=== PATIENT | male | born 1945 | race Caucasian/White ===

== ENCOUNTER → 2017-02-12 | Outpatient (CLI) | payer OTHER ==
[~2017-02-12] MED LIST: ASPI81TA21 PO; ASPI81TA28 PO; ATOR-22 PO; CHOL1000 PO; CYAN10005 PO; GLCSR500 PO; LISI20TA3 PO; LSN20 PO; MECL-91 PO; METF-384 PO; NAPR-1169 PO; OMEG10002 PO; OMEG10007 PO; URC10 PO; VTMD1000 PO
== END | disposition home or self-care (01) ==
LOC: C.LAB 07:26
PROVIDERS: ATTEND Physician Assistant Medical
DX: C61 Malignant neoplasm of prostate (principal)

== ENCOUNTER → 2017-02-15 | Outpatient (CLI) | payer OTHER ==
[2017-02-15 13:28] VITALS: BP 167/88; PULSE 80; TEMP 36.4; O2SAT 94
--- NOTE | 2017-02-15 14:53 | Radiation Oncology Follow-Up ---
Radiation Oncology Follow-Up Date of Visit Feb 15, 2017. (Chloe Malloy PA-C) Reason For Visit 6 month follow-up (Chloe Malloy PA-C) Radiation Completion Date 01/19/1916 (Chloe Malloy PA-C) Diagnosis (1) Prostate cancer Status: Resolved Onset Date: 01/05/2011 Location: both lobes of prostate Histology Subtype: adenocarcinoma Stage: ll Permanent Comment: DIAGNOSIS: Prostate, adenocarcinoma, kellie 3 + 4, pre-RP PSA 6.10, pT2c, group IIA now with rising PSA to 0.11, PSA rechecked and was 0.286 11/02/2015 -Radical prostatectomy - 10/30/2011 Status post completion of salvage radiation therapy 01/19/2016 received 7290 cGy Last Edited By: Chloe Malloy on Feb 16, 2016 16:12 (Chloe Malloy PA-C) History of Present Illness Mr. Austin is a 70-year-old gentleman who was originally diagnosed with prostate cancer in 2011. His pretreatment PSA was 6.10 on 07/24/2011. He underwent a radical prostatectomy on 10/30/2011 which revealed prostate adenocarcinoma that was [place] 3+3 and [place] 3+4. The pathologic specimen also revealed perineural invasion however, there was no evidence of extracapsular extension, seminal vesicle invasion or positive pathologic margins. The patient was followed with observation. His PSA on 06/26/2012 was undetectable. His repeat PSA was 0.03 in December 2012, 0.05 in January 2015 and 0.11 on 07/28/2015. We are now seeing the patient in consultation regarding the role salvage radiation therapy for his prostate cancer. He completed salvage radiation therapy 01/19/2016. He received 7290 cGy to lymph nodes and 6840 cGy to the prostate bed. (Chloe Malloy PA-C) Interim History He's been doing well over the past 6 months. He denies any difficulty with urination. He does not require any medication to help with urination. He completed AUA score sheet and gave a score of 10. On his last visit his score was 11. He completed and expanded prostate cancer index composite for clinical practice and gave a score of 3 of 12 and urinary incontinence symptoms. He gave a score of 2 of 12 in urinary irritation symptoms. He gave a score 0 of 12 and bowel symptoms. He gave a score of 12 of 12 in sexual symptoms. He gave a score 1 of 12 and hormonal vitality symptoms. His total was 18 of 60. He had a PSA 02/12/2017 and this was 0.332. The PSA prior was 08/14/2016 and that was 0.100. He is keeping a log of his results. We reviewed the PSA results. (Chloe Malloy PA-C) Allergies Coded Allergies: Codeine (Verified Adverse Reaction, Unknown, HYPERACTIVITY, 07/27/14) Home Medications Scheduled Aspirin Enteric Coated (Ecotrin Or Generic), 81 MG PO DAILY Atorvastatin (Lipitor), 20 MG PO DAILY Cholecalciferol (Vitamin D3), 1 TAB PO DAILY Cyanocobalamin (Vitamin B-12), 2,000 MCG PO DAILY Lisinopril (Prinivil), 20 MG PO QAM Metformin Hcl Ext Rel (Glucophage Ext Rel *), 1,000 MG PO BID [place]-3 Fatty Acids (Fish Oil), 2 CAP PO BID Potassium Citrate (Potassium Citrate), 1 TAB PO TID Review of Systems Gastrointestinal: Symptoms: Indigestion GI Comments: sometimes, not enough to take tums for Oral: Symptoms: No Problems Respiratory: Symptoms: WNL Urinary: Symptoms: WNL Skin: Symptoms: No Problems (Chloe Malloy PA-C) Physical Exam Vital Signs Date Time Temp Pulse Resp B/P Pulse Ox O2 Delivery O2 Flow Rate FiO2 02/15/17 13:28 36.4 80 22 167/88 94 Pain: Patient Pain Scale: 0 - 10 Initial Pain Intensity: 0.0 Fatigue: None General Appearance: no apparent distress Eyes: normal inspection, EOMI ENT: normal ENT inspection, hearing grossly normal Respiratory/Chest: lungs clear, no respiratory distress, no accessory muscle use Cardiovascular: regular rate, rhythm, no gallop, no murmur Abdomen: non tender, soft Extremities: no pedal edema Neurologic/Psychiatric: no motor/sensory deficits, alert, normal mood/affect Skin: warm/dry (Chloe Malloy PA-C) Laboratory Studies Test 02/12/17 07:29 Prostate Specific Antigen 0.332 ng/ml (0.000-4.000) (Chloe Malloy PA-C) Assessment & Plan Plan: The patient was seen today by Dr. Mccray. He will continue regular follow- up with his primary care provider as well as his urologist. He'll be seeing Dr. Moon in May. He'll be having a recheck PSA at that time. We asked him to return to our office in 6 months. Continue to follow the PSAs closely. There has been a trend upward in the PSA. We have reassured him that is not time yet to have concern. There is no need for any implementation of treatment currently. This will need to be followed over longer period of time. We'll continue with the current schedule a follow-up and PSAs. He may call our office if he has any questions or concerns in the interim. (Chloe Malloy PA-C) I agree with note created by Chloe Malloy PA-C. I reviewed the patient's chart and information with her. I have examined and evaluated the patient. I reviewed relevant clinical information and answered the patient's and/or family' s questions. (Veeral. Mccray MD) Total Time In Follow-Up I spent 20 minutes speaking to the patient and performing examination. I spent 15 minutes reviewing information and completing this note. (Chloe Malloy PA-C) I spent 15 minutes examining and counseling the patient. (Veeral. Mccray MD) Copy To Steffi Moon MD; Ivette Koroma C.R.N.P.
== END | disposition home or self-care (01) ==
LOC: C.ONC 13:18
PROVIDERS: ATTEND Physician Assistant Medical
DX: Z08 Encounter for follow-up examination after completed treatment for malignant neoplasm (principal); Z92.3 Personal history of irradiation; Z85.46 Personal history of malignant neoplasm of prostate

== ENCOUNTER 2017-05-01 11:55 | Emergency (ER) | payer OTHER ==
[~2017-05-01] VITALS: Ht 165.1 cm; Wt 93.0 kg
[~2017-05-01 11:55] MED LIST changes: -ASPI81TA28 PO; -LSN20 PO; -MECL-91 PO; -METF-384 PO; -NAPR-1169 PO; -OMEG10007 PO; -VTMD1000 PO
[2017-05-01 12:01] VITALS: TEMP 36.5; Ht 165.1 cm; Wt 93.0 kg
[2017-05-01] MEDS ORDERED: SODIUM CHLORIDE 0.9% 1000ML 500 ML IV STA (12:31)
[2017-05-01 12:52] LABS: BASO % 0.3 %; BASO ABS # 0.02 K/uL (0-0.2); COMPLETE YES; EOS % 1.5 %; HEMATOCRIT 48.4 % (42-52); IG% 0.3 %; LYMPH % 26.5 %; LYMPH ABS # 1.64 K/uL (1.2-3.4); MEAN CELL VOLUME 94.9 fL (80-100); MEAN CORPUSCULAR HEMOGLOBIN 29.8 pg (25-34); MEAN CORPUSCULAR HGB CONC 31.4 g/dl (32-36); MEAN PLATELET VOLUME 9.1 fL (7.4-10.4); MONO % 8.5 %; NEUT % 62.9 %; PLATELET COUNT 197 K/uL (130-400)
[2017-05-01 12:58] LABS: URINE APPEARANCE CLEAR (CLEAR); URINE BILIRUBIN NEG (NEG); URINE COLOR YELLOW; URINE NITRITE NEG (NEG); URINE SPECIFIC GRAVITY 1.022 (1.000-1.030); UROBILINOGEN NEG (NEG); ZZUR CULT IF INDIC CLEAN CATCH NO
--- NOTE | 2017-05-01 13:01 | DIAGNOSTIC IMAGING REPORT ---
CT SCAN OF THE BRAIN WITHOUT IV CONTRAST CLINICAL HISTORY: Weakness. Change in mental status. COMPARISON STUDY: No priors. TECHNIQUE: Unenhanced axial CT scan of the brain is performed from the vertex to the skull base. CT DOSE: 614.27 mGy.cm FINDINGS: Brain parenchyma: There are age-related involutional changes noting mild subcortical and periventricular microangiopathic change. There is no hemorrhage, mass effect, or evidence of acute territorial ischemia by CT criteria. Hill-white matter is preserved. No extra-axial fluid collection is seen. Ventricles, sulci, cisterns: Prominent secondary to involutional change. Intracranial vasculature: There is atherosclerotic calcification of the cavernous carotid and vertebral arteries. Calvarium: Unremarkable. Sinuses and mastoids: The visualized paranasal sinuses are clear. The mastoid air cells are well pneumatized. Orbits: The bony orbits are grossly intact. IMPRESSION: There is no hemorrhage, mass effect, or evidence of acute territorial ischemia by CT criteria. Electronically signed by: Mars Beebe M.D. 05/01/2017 1:00 PM Dictated Date/Time: 05/01/2017 12:58 PM
[2017-05-01 13:03] LABS: MANUAL MICROSCOPIC REQUIRED? NO; REVIEW REQ? NO
[2017-05-01] MEDS ORDERED: METF-384 PO (13:05)
[2017-05-01] MEDS ORDERED: ASPI81TA28 PO (13:05)
[2017-05-01] MEDS ORDERED: URC10 PO (13:05)
[2017-05-01] MEDS ORDERED: VTMD1000 PO (13:05)
[2017-05-01] MEDS ORDERED: OMEG10007 PO (13:05)
[2017-05-01] MEDS ORDERED: ATOR-22 PO (13:05)
[2017-05-01] MEDS ORDERED: LSN20 PO (13:05)
[2017-05-01] MEDS ORDERED: CYAN10005 PO (13:05)
[2017-05-01] MEDS ORDERED: NAPR-1169 PO (13:05)
[2017-05-01 13:13] LABS: BUN/CREATININE RATIO 12.7 (10-20); CALCIUM 10.2 mg/dl (8.5-10.1); CREATININE 1.6 mg/dl (0.60-1.40)
[2017-05-01 13:26] LABS: THYROID STIMULATING HORMONE 0.92 uIu/ml (0.300-4.500)
[2017-05-01] MEDS ORDERED: SODIUM CHLORIDE 0.9% 500ML 500 ML IV STA (13:35)
[2017-05-01] MEDS ORDERED: MECL-91 PO (13:56)
[2017-05-01 14:30] VITALS: BP 176/69; PULSE 70; O2SAT 96
--- NOTE | 2017-05-01 14:48 | EMERGENCY ROOM VISIT NOTE ---
History Report prepared by [place]: Harpreet Holcomb Under the Supervision of: Dr. Mars Leiva M.D. First contact with patient: 12:22 Chief Complaint: DIZZY Stated Complaint: DIZZINESS, LACK OF BALANCE YESTERDAY AM Nursing Triage Summary: pt to [facility] ED wtih dizziness since yesterday so bad that he had to use a walker. [facility] has a hx of a arrythmia no complaints of pain History of Present Illness The patient is a 71 year old male who presents to the Emergency Room with complaints of intermittent dizziness starting yesterday morning. He woke up with the dizziness. He describes it as issues with balance which made him unable to ambulate as normal. He had to use a walker to ambulate. He also had an elevated blood pressure and a low pulse rate. The dizziness improved later in the afternoon. There was much improvement in the dizziness this morning. He talked with a nurse in [place] who referred him to the Emergency Room. He denies any history of similar symptoms. He had diarrhea a few days ago which has now resolved. The patient denies headache, ear pain, chest pain, shortness of breath, nausea, vomiting, urinary symptoms, blood in stool, focal weakness, or any other complaints. Source of History: patient Onset: yesterday morning Position: other (global) Quality: other (dizziness) Timing: intermittent Associated Symptoms: No headache, No chest pain, No SOB, No nausea, No vomiting, No urinary symptoms, No weakness (focal) Review of Systems See HPI for pertinent positives & negatives. A total of 10 systems reviewed and were otherwise negative. Past Medical & Surgical Medical Problems: (1) Bronchitis (2) DM (diabetes mellitus) (3) HTN (hypertension) (4) Kidney stones (5) PNA (pneumonia) (6) Prostate cancer (7) UTI (urinary tract infection) Surgical Problems: (1) H/O hernia repair (2) H/O prostatectomy (3) H/O right knee replacement Family History Cancer Heart disease Lung disease Social History Smoking Status: Never Smoker Alcohol Use: none Marital Status: Housing Status: lives with significant other Current/Historical Medications Scheduled Aspirin (Aspirin Ec), 81 MG PO DAILY Atorvastatin (Lipitor), 10 MG PO HS Cholecalciferol (Vitamin D3), 1,000 MCG PO DAILY Cyanocobalamin (Vitamin B-12), 1,000 MCG PO DAILY Fish Oil ([place]-3), 2 CAP PO BID Lisinopril (Lisinopril), 20 MG PO QAM Metformin Hcl (Glucophage), 1,000 MG PO BID Potassium Citrate (Potassium Citrate), 10 MEQ PO TID Scheduled PRN Meclizine HCl (Meclizine 25), 1 TAB PO Q8 PRN for Dizziness or Vertigo Naproxen (Naprosyn), 500 MG PO BID PRN for Pain Allergies Coded Allergies: Codeine (Verified Adverse Reaction, Unknown, HYPERACTIVITY, 07/27/14) Physical Exam Vital Signs Date Time Temp Pulse Resp B/P (MAP) Pulse Ox O2 Delivery O2 Flow Rate FiO2 05/01/17 14:30 70 176/69 96 05/01/17 13:52 61 18 189/92 96 Room Air 05/01/17 13:04 60 05/01/17 12:11 68 163/83 73 169/85 78 163/94 05/01/17 12:01 36.5 77 18 168/103 94 Room Air Physical Exam GENERAL: Patient is in no acute distress. HEENT: No acute trauma, normocephalic atraumatic, mucous membranes moist, no nasal congestion, no scleral icterus. NECK: No stridor, no adenopathy, no meningismus, trachea is midline. LUNGS: Clear to auscultation bilaterally, no wheeze, no rhonchi, breath sounds equal. HEART: 2/6 systolic murmur, regular rate and rhythm. ABDOMEN: Soft, nontender, bowel sounds positive, no hernias, no peritonitis. EXTREMITIES: No cyanosis or edema, full range of motion of all the joints without pain or difficulty, no signs for acute trauma. NEUROLOGIC: Oriented x 3, no acute motor or sensory deficits, no focal weakness. No pronator drift or cerebellar dysfunction, no speech slur or facial droop. SKIN: No rash, no jaundice, no diaphoresis. Medical Decision & Procedures ER Provider Diagnostic Interpretation: Orthostatic vital signs are negative. CT results as stated below per my review and radiologist interpretation: CT SCAN OF THE BRAIN WITHOUT IV CONTRAST CLINICAL HISTORY: Weakness. Change in mental status. COMPARISON STUDY: No priors. TECHNIQUE: Unenhanced axial CT scan of the brain is performed from the vertex to the skull base. CT DOSE: 614.27 mGy.cm FINDINGS: Brain parenchyma: There are age-related involutional changes noting mild subcortical and periventricular microangiopathic change. There is no hemorrhage, mass effect, or evidence of acute territorial ischemia by CT criteria. Hill-white matter is preserved. No extra-axial fluid collection is seen. Ventricles, sulci, cisterns: Prominent secondary to involutional change. Intracranial vasculature: There is atherosclerotic calcification of the cavernous carotid and vertebral arteries. Calvarium: Unremarkable. Sinuses and mastoids: The visualized paranasal sinuses are clear. The mastoid air cells are well pneumatized. Orbits: The bony orbits are grossly intact. IMPRESSION: There is no hemorrhage, mass effect, or evidence of acute territorial ischemia by CT criteria. Electronically signed by: Mars Beebe M.D. 05/01/2017 1:00 PM Dictated Date/Time: 05/01/2017 12:58 PM Laboratory Results 05/01/17 12:10 Red Blood Count 5.10, Mean Corpuscular Volume 94.9, Mean Corpuscular Hemoglobin 29.8, Mean Corpuscular Hemoglobin Concent 31.4, Mean Platelet Volume 9.1, Neutrophils (%) (Auto) 62.9, Lymphocytes (%) (Auto) 26.5, Monocytes (%) (Auto) 8.5, Eosinophils (%) (Auto) 1.5, Basophils (%) (Auto) 0.3, Neutrophils # (Auto) 3.90, Lymphocytes # (Auto) 1.64, Monocytes # (Auto) 0.53, Eosinophils # (Auto) 0.09, Basophils # (Auto) 0.02 05/01/17 12:10 Test 05/01/17 12:10 05/01/17 12:30 White Blood Count 6.20 K/uL (4.8-10.8) Red Blood Count 5.10 M/uL (4.7-6.1) Hemoglobin 15.2 g/dL (14.0-18.0) Hematocrit 48.4 % (42-52) Mean Corpuscular Volume 94.9 fL (80-100) Mean Corpuscular Hemoglobin 29.8 pg (25-34) Mean Corpuscular Hemoglobin Concent 31.4 g/dl (32-36) Platelet Count 197 K/uL (130-400) Mean Platelet Volume 9.1 fL (7.4-10.4) Neutrophils (%) (Auto) 62.9 % Lymphocytes (%) (Auto) 26.5 % Monocytes (%) (Auto) 8.5 % Eosinophils (%) (Auto) 1.5 % Basophils (%) (Auto) 0.3 % Neutrophils # (Auto) 3.90 K/uL (1.4-6.5) Lymphocytes # (Auto) 1.64 K/uL (1.2-3.4) Monocytes # (Auto) 0.53 K/uL (0.11-0.59) Eosinophils # (Auto) 0.09 K/uL (0-0.5) Basophils # (Auto) 0.02 K/uL (0-0.2) RDW Standard Deviation 50.5 fL (36.4-46.3) RDW Coefficient of Variation 14.5 % (11.5-14.5) Immature Granulocyte % (Auto) 0.3 % Immature Granulocyte # (Auto) 0.02 K/uL (0.00-0.02) Anion Gap 11.0 mmol/L (3-11) Est Creatinine Clear Calc Drug Dose 44.4 ml/min Estimated GFR () 49.5 Estimated GFR (Non- 42.7 BUN/Creatinine Ratio 12.7 (10-20) Calcium Level 10.2 mg/dl (8.5-10.1) Total Bilirubin 0.6 mg/dl (0.2-1) Aspartate Amino Transf (AST/SGOT) 30 U/L (15-37) Alanine Aminotransferase (ALT/SGPT) 54 U/L (12-78) Alkaline Phosphatase 59 U/L (45-117) Total Protein 8.1 gm/dl (6.4-8.2) Albumin 4.0 gm/dl (3.4-5.0) Globulin 4.1 gm/dl (2.5-4.0) Albumin/Globulin Ratio 1.0 (0.9-2) Thyroid Stimulating Hormone (TSH) 0.920 uIu/ml (0.300-4.500) Urine Color YELLOW Urine Appearance CLEAR (CLEAR) Urine pH 5.0 (4.5-7.5) Urine Specific [place] 1.022 (1.000-1.030) Urine Protein 2+ (NEG) Urine Glucose (UA) NEG (NEG) Urine Ketones NEG (NEG) Urine Occult Blood NEG (NEG) Urine Nitrite NEG (NEG) Urine Bilirubin NEG (NEG) Urine Urobilinogen NEG (NEG) Urine Leukocyte Esterase NEG (NEG) Urine WBC (Auto) 1-5 /hpf (0-5) Urine RBC (Auto) 0-4 /hpf (0-4) Urine Hyaline Casts (Auto) 1-5 /lpf (0-5) Urine Epithelial Cells (Auto) 5-10 /lpf (0-5) Urine Bacteria (Auto) NEG (NEG) Laboratory results reviewed by me. Medications Administered Medications (Trade) Dose Ordered Sig/Kyra Route Start Time Stop Time Status Last Admin Dose Admin Sodium Chloride 500 ml @ 999 mls/hr Q31M STAT IV 05/01/17 12:31 05/01/17 13:01 DC 05/01/17 12:58 999 MLS/HR Sodium Chloride 500 ml @ 999 mls/hr Q31M STAT IV 05/01/17 13:35 05/01/17 14:05 DC 05/01/17 13:35 999 MLS/HR ECG Indication: other (dizziness) Rate (beats per minute): 71 Rhythm: normal sinus Findings: no acute ischemic change, no ectopy, other (LVH) ED Course 1222: The patient was evaluated in room C01B. A complete history and physical exam was performed. 1231: Sodium Chloride 500 ml @ 999 mls/hr IV 1335: Sodium Chloride 500 ml @ 999 mls/hr IV 1354: Reevaluated the patient. Discussed results and discharge instructions: He verbalized understanding and agreement. The patient is ready for discharge. Medical Decision Medication Reconciliation: I attest that I have personally reviewed the patient' s current medication list. Blood Pressure Screening: Patient was found to have an elevated blood pressure and was referred to their primary doctor for recheck and further treatment. Differential diagnosis includes but is not limited to dehydration, electrolyte imbalance, anemia, UTI, stroke, intracranial bleeding, dehydration, vertigo. There is no leukocytosis or concerning anemia. Renal panel testing shows some renal failure/dehydration. No significant electrolyte abnormality requiring correction. No hepatitis. The patient appeared to be in a euthyroid state. EKG showed a normal sinus rhythm with LVH, no ischemia or dysrhythmia. Orthostatic vital signs were negative. Brain CT showed no acute bleed or mass effect. Urinalysis did not show evidence for infection. On exam, there were no focal neurologic deficits. The patient was not toxic or febrile. The patient received IV saline for hydration. He is doing well. He actually feels better today than he felt yesterday. I do think he can be discharged home [facility] He was given a prescription for some meclizine to use for recurrent symptoms. If he is worsening, he can return for reassessment. He will see his doctor about his somewhat elevated blood pressure. Impression Primary Impression: Lightheadedness Additional Impressions: Dizziness Dehydration Scribe Attestation The scribe's documentation has been prepared under my direction and personally reviewed by me in its entirety. I confirm that the note above accurately reflects all work, treatment, procedures, and medical decision making performed by me. Departure Information Dispostion Home / Self-Care Prescriptions Meclizine HCl (Meclizine 25) 25 Mg Tab 1 TAB PO Q8 Y for Dizziness or Vertigo, #15 TAB Prov: Mars Leiva M.D. 05/01/17 Referrals Ivette Koroma C.R.NAngelinaPAngelina (PCP) Forms HOME CARE DOCUMENTATION FORM, IMPORTANT VISIT INFORMATION Patient Instructions My [facility] Additional Instructions stay better hydrated as we discussed try meclizine 1 tab as needed every 8 hours for dizziness [facility] return for worsening symptoms Problem Qualifiers
== END 2017-05-01 14:31 | disposition home or self-care (01) ==
LOC: C.EDB 11:56 → C.EDC 14:31
DX: R42 Dizziness and giddiness (principal); E86.0 Dehydration; E11.9 Type 2 diabetes mellitus without complications; I10 Essential (primary) hypertension; Z87.442 Personal history of urinary calculi; Z85.46 Personal history of malignant neoplasm of prostate; Z90.79 Acquired absence of other genital organ(s); Z96.651 Presence of right artificial knee joint; Z79.82 Long term (current) use of aspirin; Z79.84 Long term (current) use of oral hypoglycemic drugs

== ENCOUNTER → 2017-08-13 | Outpatient (CLI) | payer OTHER ==
[~2017-08-13] MED LIST changes: -ASPI81TA21 PO; +ASPI81TA28 PO; -CHOL1000 PO; -GLCSR500 PO; -LISI20TA3 PO; +LSN20 PO; +MECL-91 PO; +METF-384 PO; +NAPR-1169 PO; -OMEG10002 PO; +OMEG10007 PO; +VTMD1000 PO
== END | disposition home or self-care (01) ==
LOC: C.LAB 09:32
PROVIDERS: ATTEND Physician Assistant Medical
DX: C61 Malignant neoplasm of prostate (principal)

== ENCOUNTER → 2017-08-15 | Outpatient (CLI) | payer OTHER ==
[2017-08-15 13:53] VITALS: BP_SYST 168; BP_SYST 173; BP_DIAS 101; BP_DIAS 86; PULSE 63; TEMP 36.4; O2SAT 94
--- NOTE | 2017-08-15 15:33 | Radiation Oncology Follow-Up ---
Radiation Oncology Follow-Up Date of Visit Aug 15, 2017. Reason For Visit 6 month follow-up Radiation Completion Date 01/19/16 Diagnosis (1) Prostate cancer Status: Chronic Onset Date: 01/05/2011 Location: both lobes of the prostate Histology Subtype: adenocarcinoma Permanent Comment: DIAGNOSIS: Prostate, adenocarcinoma, kell[place] 3 + 4, pre-RP PSA 6.10, pT2c, group IIA now with rising PSA to 0.11, PSA rechecked and was 0.286 11/02/2015 -Radical prostatectomy - 10/30/2011 Status post completion of salvage radiation therapy 01/19/2016 received 7290 cGy Last Edited By: Chloe Malloy on Feb 16, 2016 16:12 History of Present Illness Mr. Austin was originally diagnosed with prostate cancer in 2011. His pretreatment PSA was 6.10 on 07/24/2011. He underwent a radical prostatectomy on 10/30/2011 which revealed prostate adenocarcinoma that was [place] 3+3 and [place] 3+4. The pathologic specimen also revealed perineural invasion however , there was no evidence of extracapsular extension, seminal vesicle invasion or positive pathologic margins. The patient was followed with observation. His PSA on 06/26/2012 was undetectable. His repeat PSA was 0.03 in December 2012, 0.05 in January 2015 and 0.11 on 07/28/2015. We are now seeing the patient in consultation regarding the role salvage radiation therapy for his prostate cancer. He completed salvage radiation therapy 01/19/2016. He received 7290 cGy to lymph nodes and 6840 cGy to the prostate bed. Interim History He is stable from urinary standpoint. His AUA score was 10. At his last visit his AUA score was the same. He completed and expanded prostate cancer index composite for clinical practice and gave a score of 4 of 12 urinary incontinence symptoms. He gave a score of 2 of 12 and urinary irritation symptoms. He gave a score of 0 12 in bowel symptoms. He gave a score of 11 of 12 and sexual symptoms. He gave a score of 2 of 12 and hormonal vitality symptoms. His total was 19 of 60. He had a PSA prior to coming in. This was performed on 08/13/2017. The level was at 2.160. This was up from 0.332 on . Allergies Coded Allergies: Codeine (Verified Adverse Reaction, Unknown, HYPERACTIVITY, 07/27/14) Home Medications Scheduled Aspirin (Aspirin Ec), 81 MG PO DAILY Atorvastatin (Lipitor), 10 MG PO HS Cholecalciferol (Vitamin D3), 1,000 MCG PO DAILY Cyanocobalamin (Vitamin B-12), 1,000 MCG PO DAILY Fish Oil ([place]-3), 2 CAP PO BID Lisinopril (Lisinopril), 20 MG PO QAM Metformin Hcl (Glucophage), 1,000 MG PO BID Potassium Citrate (Potassium Citrate), 10 MEQ PO TID Scheduled PRN Meclizine HCl (Meclizine 25), 1 TAB PO Q8 PRN for Dizziness or Vertigo Naproxen (Naprosyn), 500 MG PO BID PRN for Pain Review of Systems Gastrointestinal: Symptoms: WNL Oral: Symptoms: No Problems Respiratory: Symptoms: WNL Urinary: Symptoms: WNL, Nocturia Comments: Nocturia x 2-3, See AUA & EPIC Skin: Symptoms: No Problems Physical Exam Vital Signs Date Time Temp Pulse Resp B/P (MAP) Pulse Ox O2 Delivery O2 Flow Rate FiO2 08/15/17 13:53 36.4 63 16 173/101 94 168/86 Fatigue: None General Appearance: no apparent distress Eyes: normal inspection, EOMI ENT: normal ENT inspection, hearing grossly normal Respiratory/Chest: lungs clear, no respiratory distress, no accessory muscle use Cardiovascular: regular rate, rhythm, no gallop, no murmur Abdomen: non tender, soft, no organomegaly Extremities: no pedal edema Neurologic/Psychiatric: no motor/sensory deficits, alert, normal mood/affect Skin: warm/dry Laboratory Studies Test 08/13/17 09:35 Prostate Specific Antigen 2.160 ng/ml (0.000-4.000) Assessment & Plan Plan: The patient was seen today by Dr. Mccray. We have reviewed with him the PSA findings. He had received a call from Dr. Moon. She has recommended that he start Lupron therapy. He is going to have an injection on 08/23/2017. He is also been having CAT scan of the abdomen and pelvis. He is scheduled for a bone scan on 08/29/2017. 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 Dr. Moon is also aware and will initiate Lupron and will also restage the patient. We will see the patient back in 6 months. ADDENDUM: I agree with note created by Chloe Malloy PA-C. I reviewed the patient's chart and information with her. I have examined and evaluated the patient. I reviewed relevant clinical information and answered the patient's and /or family's questions. 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 I spent 15 minutes reviewing information in completing this note. Total Time (Attending) In Follow-Up I spent 15 minutes examining and counseling the patient. BULK DELIVERY DRIVER Copy To Steffi Moon MD; Ivette Koroma C.R.N.P.
== END | disposition home or self-care (01) ==
LOC: C.ONC 13:43
PROVIDERS: ATTEND Physician Assistant Medical
DX: Z08 Encounter for follow-up examination after completed treatment for malignant neoplasm (principal); Z92.3 Personal history of irradiation; Z85.46 Personal history of malignant neoplasm of prostate

== ENCOUNTER → 2018-02-13 | Outpatient (CLI) | payer OTHER ==
[~2018-02-13] MED LIST changes: +LEUP30IN3 IM; +MECL1TAB40; +SAXAGLIPTIN
[2018-02-13 13:47] VITALS: BP 151/90; PULSE 73; TEMP 36.7; O2SAT 95
--- NOTE | 2018-02-13 16:24 | Radiation Oncology Follow-Up ---
Radiation Oncology Follow-Up Date of Visit Feb 13, 2018. Reason For Visit Six-month follow-up Radiation Completion Date 01/19/16 Diagnosis (1) Prostate cancer Status: Chronic Onset Date: 01/05/2011 Location: Both lobes of the prostate Histology Subtype: Adenocarcinoma Permanent Comment: DIAGNOSIS: Prostate, adenocarcinoma, kellie 3 + 4, pre-RP PSA 6.10, pT2c, group IIA now with rising PSA to 0.11, PSA rechecked and was 0.286 11/02/2015 -Radical prostatectomy - 10/30/2011 Status post completion of salvage radiation therapy 01/19/2016 received 7290 cGy Last Edited By: Chloe Malloy on Feb 16, 2016 16:12 History of Present Illness Mr. Austin was originally diagnosed with prostate cancer in 2011. His pretreatment PSA was 6.10 on 07/24/2011. He underwent a radical prostatectomy on 10/30/2011 which revealed prostate adenocarcinoma that was Melba 3+3 and Kellie 3+4. The pathologic specimen also revealed perineural invasion however , there was no evidence of extracapsular extension, seminal vesicle invasion or positive pathologic margins. The patient was followed with observation. His PSA on 06/26/2012 was undetectable. His repeat PSA was 0.03 in December 2012, 0.05 in January 2015 and 0.11 on 07/28/2015. We are now seeing the patient in consultation regarding the role salvage radiation therapy for his prostate cancer. He completed salvage radiation therapy 01/19/2016. He received 7290 cGy to lymph nodes and 6840 cGy to the prostate bed. Interim History Following his visit in July he return to Dr. Moon. He was started on Lupron suppression. He was given an injection on August 23, 2017. His PSA was then checked on December 20, 2017. This was found to be less than 0.02. He had another Lupron injection on December 25, 2017. He does have side effects to the medication. He has muscle weakness and breast enlargement. He has fatigue. He plans to continue the medication and do his best to tolerate the side effects. He also had restaging studies which included CT of the chest abdomen and pelvis. He also had a bone scan. He had a bone scan November 02, 2017. 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 Increased activity in the lower lumbar spine compatible with lower lumbar pars defect and other degenerative changes. CT of the abdomen and pelvis showed minimally prominent retroperitoneal lymph nodes are present. CT of the chest on September 07 had shown mild sclerotic changes in the anterior left third rib which likely correspond to the findings seen on the bone scan. Differential diagnosis includes a healing rib fracture or possible sclerotic bone metastasis. Today he gave an AUA score of 5. He completed and expanded prostate cancer index composite for clinical practice and gave a score of 4 of 12 and urinary incontinence symptoms. He gave a score of 2 of 12 and urinary irritation symptoms. He gave a score of 0 12 and bowel symptoms. He gives score 11 of 12 and sexual symptoms. He gave a score of 8 of 12 and hormonal vitality symptoms. His total was 25 of 60. Allergies Coded Allergies: Codeine (Verified Adverse Reaction, Unknown, HYPERACTIVITY, 07/27/14) Home Medications Scheduled Aspirin (Aspirin Ec), 81 MG PO DAILY Atorvastatin (Lipitor), 10 MG PO HS Cholecalciferol (Vitamin D3), 1,000 MCG PO DAILY Cyanocobalamin (Vitamin B-12), 1,000 MCG PO DAILY Fish Oil (Blodgett-3), 2 CAP PO BID Leuprolide Acetate (Lupron Depot), 30 MG IM q4 months Lisinopril (Lisinopril), 20 MG PO QAM Meclizine Hcl (Meclizine Hcl), 25 MG bidprn Metformin Hcl (Glucophage), 1,000 MG PO BID Potassium Citrate (Potassium Citrate), 10 MEQ PO TID [saxagliptin], 2.5 MG DAILY Review of Systems Gastrointestinal: Symptoms: Constipation GI Comments: last BM today sched for colonsocopy in March Oral: Symptoms: No Problems Respiratory: Symptoms: WNL Urinary: Symptoms: Nocturia Comments: nocturiax3 Skin: Symptoms: No Problems Other Skin Symptoms: P Physical Exam Vital Signs Date Time Temp Pulse Resp B/P (MAP) Pulse Ox O2 Delivery O2 Flow Rate FiO2 02/13/18 13:47 36.7 73 24 151/90 95 Fatigue: None General Appearance: no apparent distress Eyes: normal inspection, EOMI ENT: normal ENT inspection, hearing grossly normal Neck: no adenopathy, thyroid normal Respiratory/Chest: lungs clear, no respiratory distress, no accessory muscle use Breast: Breasts are mildly enlarged. There is no tenderness. There are no palpable masses. Cardiovascular: regular rate, rhythm, no gallop, no murmur Abdomen: non tender, soft Extremities: no pedal edema Neurologic/Psychiatric: no motor/sensory deficits, alert, normal mood/affect Pain Management Patient Reports Pain: No Initial Pain Intensity: 0.0 Pain Management Plan He denies pain therefore requires no pain management. Laboratory Laboratory Results: were reviewed Laboratory Comments: Reviewed in the interim history. Pathology Pathology Results: were reviewed, and pertinent findings noted in HPI Imaging Imaging Studies: were reviewed Imaging Comments Reviewed in the interim history. Assessment & Plan Plan: The patient was seen today by Dr. Mccray. The laboratory studies and imaging was reviewed. He is going to continue on the hormone suppression. He asked today about the length of time he will be on the medication. I reviewed with him that this is currently managed by Dr. Moon and she would make a decision as to the length of time he will continue on the medication. This would be indefinite unless she would allow for pulse therapy. We reviewed that he is having a good response in that the PSA has become undetectable. He is not having any pain in the rib area that has been noted. He denies breast tenderness we discussed gynecomastia. I reviewed with him that radiation can be given should he develop tenderness of the breasts. He will return to our office in 1 year. He may call if he has any questions or concerns in the interim. Assessment & Plan (Attending) I agree with note created by Chloe Malloy PA-C. I reviewed the patient's chart and information with her. I have examined and evaluated the patient. I reviewed relevant clinical information and answered the patient's and/or family' s questions. BANK VAULT CLERK Total Time In Follow-Up I spent 20 minutes speaking to the patient and performing examination. I spent 15 minutes reviewing information and completing this note. AK Total Time (Attending) In Follow-Up I spent 15 minutes examining and counseling the patient. BANK VAULT CLERK Copy To Steffi Moon MD; Ievtte Koroma C.R.N.P.
== END | disposition home or self-care (01) ==
LOC: C.ONC 13:39
PROVIDERS: ATTEND Physician Assistant Medical
DX: Z08 Encounter for follow-up examination after completed treatment for malignant neoplasm (principal); Z92.3 Personal history of irradiation; Z85.46 Personal history of malignant neoplasm of prostate

== ENCOUNTER 2022-12-04 19:00 | Observation (INO) ==
[2022-12-04 19:58] LABS: Basophils # (auto) 0.03 K/uL (0-0.2); Basophils % (auto) 0.4 %; Eosinophils # (auto) 0.18 K/uL (0-0.50); Eosinophils % (auto) 2.6 %; Hematocrit (blood only) 39.4 % (42.0-52.0); Hemoglobin 13.2 g/dl (14.0-18.0); Immature Granulocytes # (auto) 0.02 K/uL (0.01-0.20); Immature Granulocytes % (auto) 0.3 %; Lymphocytes # (auto) 1.17 K/uL (1.2-3.4); Lymphocytes % (auto) 16.7 %; Mean Corpuscular Hemoglobin 32.3 pg (25.0-34.0); Mean Corpuscular Hgb Conc 33.5 g/dL (32.0-36.0); Mean Corpuscular Volume 96.3 fL (80.0-100.0); Mean Platelet Volume 9.2 fL (9.4-12.4); Monocytes # (auto) 0.56 K/uL (0.11-0.59); Neutrophils # (auto) 5.05 K/uL (1.40-6.50); Platelet Count 152 K/uL (130-400); RDW Coefficient of Variation 14.7 % (11.5-14.5); RDW Standard Deviation 51.6 fL (36.4-46.3); Red Blood Count 4.09 M/uL (4.70-6.10); White Blood Count 7.01 K/ul (4.8-10.8)
[2022-12-04 20:10] LABS: Albumin Globulin Ratio 1.3 (0.9-2); Albumin Level 4.4 gm/dl (3.4-5.0); BUN Creatinine Ratio 14.1 (10-20); Bilirubin,Total 0.5 mg/dl (0.2-1.0); Creatinine Clr Calc Pharmacy 33.3 ml/min; Est GFR (African American) 38.3 ml/min; Est GFR (Non-African American) 33.1 ml/min; Globulin 3.4 gm/dl (2.5-4.0); Potassium 4.1 mmol/L (3.5-5.1); Total Protein 7.8 gm/dl (6.0-8.3)
[2022-12-04 20:15] LABS: Troponin I High Sensitivity 13.1 pg/ml (0-20)
[2022-12-04 20:41] LABS: INR 0.9 (0.9-1.1); Partial Thromboplastin Ratio 0.9; Partial Thromboplastin Time 24.7 Seconds (21.0-31.0); Prothrombin Time 9.8 Seconds (9.0-12.0)
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
[2022-12-05] MEDS ORDERED: CARBOHYDRATES FOR HYPOGLYCEMIA PO PRN (01:36)
[2022-12-05] MEDS ORDERED: ONDANSETRON INJ 2 MG/ML 2 ML VIAL IV PRN (01:36)
[2022-12-05] MEDS ORDERED: DEXTROSE 50% 50 ML SYRINGE IV PRN (01:36)
[2022-12-05] MEDS ORDERED: GLUCOSE 10 TAB/TUBE PO PRN (01:36)
[2022-12-05] MEDS ORDERED: GLUCOSE 40% GEL 15 GM TUBE PO PRN (01:36)
[2022-12-05] MEDS ORDERED: GLUCAGON FOR INJ 1 MG VIAL SQ PRN (01:36)
[2022-12-05] MEDS ORDERED: NSS + 20MEQ KCL 20 MEQ/1,000 ML BAG IV SCH (01:36)
[2022-12-05] MEDS ORDERED: MECLIZINE 12.5 MG TAB PO PRN (01:36)
[2022-12-05] MEDS ORDERED: ACETAMINOPHEN 325 MG TAB PO PRN (01:36)
[2022-12-05] MEDS: INSULIN ASPART PER UNIT SC SCH ×3 (01:59→12:10)
[2022-12-05] MEDS ORDERED: hydrALAZINE HCL 20 MG/ML VIAL IV PRN (04:55)
[2022-12-05] MEDS ORDERED: SODIUM CHLORIDE 0.9% 1000ML 1,000 ML IV SCH (05:00)
--- NOTE | 2022-12-05 06:43 | CT Scan Report ---
CT head/brain wo con CLINICAL HISTORY: 76 years-old Male with hankins. Acute headache TECHNIQUE: Multiple axial CT images of the head were obtained without contrast. A dose lowering tech nique was utilized adhering to the principles of ALARA. CT DOSE: 972.49 mGy.cm COMPARISON: 10/20/2019 FINDINGS: No acute intracranial hemorrhage, midline shift, intracranial mass, hydrocephalus, territorial ischem ia or abnormal extra-axial collection. Involutional changes with chronic microvascular ischemic disea se. Cerebral vascular calcifications. The calvarium is intact. The paranasal sinuses, mastoid air cells, and middle ear cavities are clear . IMPRESSION: No acute intracranial abnormality. ACT 112: Negative or not required by law. The above report was generated using voice recognition software. It may contain grammatical, syntax o r spelling errors. Electronically signed by: Frandy Olsen M.D. 12/05/2022 6:42 AM
[2022-12-05 07:00] LABS: Estimated Average Glucose 186 mg/dl; Hemoglobin A1C 8.1 % (4.5-5.6)
[2022-12-05 07:31] VITALS: TEMP 98.1
--- NOTE | 2022-12-05 08:31 | XRay Report ---
XR humerus LT 2V, XR elbow LT min 3V routine CLINICAL HISTORY: l hum pain TECHNIQUE: 2 radiographic views of the left humerus were obtained. Comparison: None available at the time of this dictation. FINDINGS: There is no evidence for fracture, subluxation or dislocation. The visualized portion of the shoulder and elbow joints are unremarkable. There is normal bone mineralization. Soft tissue swelling is seen in the posterior elbow. IMPRESSION: Soft tissue swelling in the posterior elbow without evidence of acute abnormality. ACT 112: Negative or not required by law. Electronically signed by: Endy Harley M.D. 12/05/2022 8:30 AM
[2022-12-05] MEDS ORDERED: ARTIFICIAL TEARS OP SCH (09:00)
[2022-12-05] MEDS ORDERED: CYANOCOBALAMIN (B-12) 500 MCG TABLET PO SCH (09:00)
[2022-12-05] MEDS ORDERED: lisinopril 20 MG TAB PO SCH (09:00)
[2022-12-05] MEDS ORDERED: FERROUS SULFATE 325 MG TAB PO SCH (09:00)
[2022-12-05] MEDS ORDERED: CHOLECALCIFEROL 1,000 UNITS 25 MCG TAB PO SCH (09:00)
--- NOTE | 2022-12-05 09:27 | XRay Report ---
XR chest 1V portable CLINICAL HISTORY: Chest pain, nonspecific TECHNIQUE: Single frontal radiograph of the chest was obtained. Comparison: None available at the time of this dictation. FINDINGS: No lines and tubes are seen. The aorta is tortuous. The remainder of the cardiomediastinal silhouette is unremarkable. The lungs are clear. No evidence of pleural effusion or pneumothorax. IMPRESSION: No acute chest disease. ACT 112: Negative or not required by law. Electronically signed by: Endy Harley M.D. 12/05/2022 9:26 AM
--- NOTE | 2022-12-05 09:34 | Medical Student Progress Note ---
Date of Service December 05, 2022 Assessment & Plan (1) Dizziness: Plan: Evaluated for cardiogenic causes: - EKG demonstrated RBBB which is new comparative to previous EKGs. Normal sinus rhythm. - Elevated high sensitivity troponin (20.5 with upper limit of normal being 20). Undergoing serial cardiac enzyme analysis and EKGs - Received a 2-D echocardiogram that which results are pending Evaluated for neurogenic causes: - Head CT appeared to reveal no concern for stroke Management: - Administration of meclizine 25 mg and prochlorpemazine 10 mg PRN - PT/OT consulted (2) CKD (chronic kidney disease) stage 3, GFR 30-59 ml/min: Plan: Acute on Chronic Kidney Injury: - Stage III CKD with a slightly elevated creatinine of 1.92 comparative to his baseline (~1.8) - No steep decline in kidney function Management: - Holding lisinopril as it may exacerbate TANNER and will be given hydralazine 10 mg when systolic blood pressure is >160 mmHg - Administration of normal saline one liter - Reassess kidney function at a later time Plan Other Chronic Diseases: - Diabetes Mellitus: Molding metformin and alogliptin and replaced with insulin regimen - Cardiovascular Protection: Continue 40 mg atorvastatin Discharge in next few days (pending any drastic changes in health) Admission and Anticipated Discharge Date Admission Date: December 05, 2022 Adrianne Austin is a 76 year old male with a pertinent past medical history of benign paroxysmal positional vertigo (2018), esophageal cancer (treated with chemotherapy and now immunotherapy), prostate cancer (treated), chronic kidney disease (stage III), diabetes mellitus, and hypertension presented in the emergency department on December 04 due to dizziness and a fall. He states that he is uncertained what caused the abrupt, intense dizziness as he cannot relate it to quick movements, increased stress, sleep changes, or medication changes, however this episode similar to other episodes he has had previously. This occurred when he was doing laundry. This episode resulted in him falling on his left side, predominantly his left arm. He endorses no loss of consciousness during this time. Radiographs of his left elbow, left humerus, and chest appeared to show no concern for break or fracture. A cardiac workup demonstrated a new right bundle branch block on EKG. Additionally, he had a slightly elevated high sensitivity troponin (20.5). Other labs were notable for an increase in creatinine (1.92 which is a slight increase to his baseline). Today, he states that he is feeling tired as he did not sleep well last night secondary to being in a hospital. He endorses that he is doing well. He has no shortness of breath, chest pain, nausea, or dizziness. He does not have an appetite as was not interested in breakfast and suggested he may have a banana later. Otherwise, he has no comments, questions, or concerns. Physical Exam Constitutional: WD/WN, vitals as above Eyes: PERRL, conjunctivae normal, anicteric sclerae ENMT: external ear and nose normal, oropharynx normal Neck: normal visual inspection Respiratory: normal respiratory effort, lungs clear to auscultation Cardiovascular: RRR, no murmur, no edema Gastrointestinal (Abdomen): Inspection/Auscultation: normal bowel sounds Percussion/Palpation: abdomen soft tender to deep palapation on the left hemiabdomen Results & Data ([facility]) Vital Signs (Past 12 Hours) Vital Signs Temp Pulse Pulse Resp BP BP Pulse Ox 12/05/22 07:31 36.7 C 63 21 12/05/22 05:57 36.6 C 64 19 174/114 H 98 12/05/22 01:36 12/05/22 05:30 60 18 136/73 95 12/05/22 04:00 60 16 136/63 96 12/05/22 03:30 61 20 124/94 12/05/22 03:00 63 20 119/60 95 12/05/22 01:33 70 12/05/22 01:00 68 20 157/88 H 96 12/05/22 00:31 69 20 153/85 H 95 12/05/22 00:00 68 18 133/82 97 12/04/22 23:00 71 20 139/91 96 12/04/22 22:30 74 14 149/91 H 97 12/04/22 21:50 87 12/04/22 21:49 94 12/04/22 21:48 86 18 165/96 H 94 Pulse Ox O2 Del Method O2 Del Method 12/05/22 07:31 12/05/22 05:57 Room Air 12/05/22 01:36 96 Room Air 12/05/22 05:30 Room Air 12/05/22 04:00 12/05/22 03:30 12/05/22 03:00 12/05/22 01:33 12/05/22 01:00 12/05/22 00:31 12/05/22 00:00 12/04/22 23:00 12/04/22 22:30 12/04/22 21:50 12/04/22 21:49 Room Air 12/04/22 21:48 Room Air
[2022-12-05 14:24] VITALS: O2SAT 94
[2022-12-05 16:43] VITALS: BP 174/114; PULSE 63
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
--- NOTE | 2022-12-05 18:47 | Billing Data ---
Date of Service December 05, 2022 Coding Level of Care Code HOSP INP/OBS DISCH 30 MIN/LESS
[2022-12-05] MEDS ORDERED: ASPIRIN 81 MG ECTAB PO SCH (21:00)
[2022-12-05] MEDS ORDERED: ATORVASTATIN 40 MG TAB PO SCH (21:00)
--- NOTE | 2022-12-05 21:55 | XCELERA ---
[id number]
--- NOTE | 2022-12-06 04:38 | Electrocardiogram Report ---
Test Reason : Blood Pressure : / mmHG Vent. Rate : 092 BPM Atrial Rate : 092 BPM P-R Int : 168 ms QRS Dur : 146 ms QT Int : 380 ms P-R-T Axes : 053 -23 -02 degrees QTc Int : 469 ms Normal sinus rhythm Right bundle branch block Abnormal ECG When compared with ECG of 03-NOV-2019 08:53, Right bundle branch block is now Present Confirmed by Shawn Deshpande ([id number]) on 12/06/2022 4:38:23 AM Referred By: REFERRED SELF Confirmed By:Shawn Deshpande
--- NOTE | 2022-12-06 04:58 | Electrocardiogram Report ---
Test Reason : Blood Pressure : / mmHG Vent. Rate : 063 BPM Atrial Rate : 063 BPM P-R Int : 180 ms QRS Dur : 150 ms QT Int : 438 ms P-R-T Axes : 055 -22 -11 degrees QTc Int : 448 ms Sinus rhythm with occasional Premature ventricular complexes Right bundle branch block Abnormal ECG When compared with ECG of 04-DEC-2022 19:35, Premature ventricular complexes are now Present T wave inversion no longer evident in Anterior leads Confirmed by Shawn Deshpande ([id number]) on 12/06/2022 4:57:48 AM Referred By: REFERRED SELF Confirmed By:Shawn Deshpande
== END 2022-12-05 17:44 | disposition home or self-care (01) ==
LOC: EDINP 19:00 → ED 19:00 → SUATTDRO 12-05 01:18 → 1E 12-05 01:36

== ENCOUNTER 2022-12-28 00:37 | Inpatient (IN) ==
[2022-12-28] MEDS ORDERED: ASPIRIN CHEW 324 MG PO STA (01:06)
[2022-12-28] MEDS ORDERED: NITROGLYCERIN SL 0.4 MG/TAB TAB SL STA ×2 (01:06→03:11)
--- NOTE | 2022-12-28 01:30 | Emergency Department Note ---
Impression & Plan UGIB (upper gastrointestinal bleed), Esophageal cancer, ABLA (acute blood loss anemia) ED Provider Note CHIEF COMPLAINT: Chest pain HISTORY OF PRESENT ILLNESS: This 77-year-old male patient with a history of chronic kidney disease, esophageal cancer vertigo, diabetes, hypertension, prostate cancer presents to the emergency department with complaints of chest pain that has been intermittent for several days. Tonight the patient could not get comfortable sleeping. He notes last month he was here for a fall related to vertigo, which caused a contusion to his left forearm. He states his arm has been bothering him since that time. He is unsure if today's symptoms are related to his chest pain or to his previous fall. REVIEW OF SYSTEMS: A review of systems was performed with positives and pertinent negatives listed in the history of present illness. 10 systems were reviewed and are otherwise negative. ALLERGIES: see below MEDICATIONS: see below PMH: see below SOCIAL HISTORY: see below DDx: Cardiac ischemia, aortic dissection, pneumonia, pericarditis, myocarditis, esophagitis, GERD, PUD, GI bleed as well as other pathologies. PHYSICAL EXAM: Vital signs reviewed. General: Well-appearing 77-year-old male, in no significant distress. HEENT: Pale conjunctiva, PERRLA, neck supple. Moist mucous membranes Cardiovascular: Regular rate and rhythm, no extra sounds. Pulmonary: Clear to auscultation bilaterally, normal work of breathing. Abdomen: Soft, nontender, nondistended, positive bowel sounds. Rectal: Guaiac positive, melanotic stool, formed Musculoskeletal: Atraumatic, no peripheral edema. Neurologic: Patient awake alert and oriented x 3, speech is clear Skin: Warm, dry, no rash EMERGENCY DEPARTMENT COURSE/MDM: This patient was evaluated and appeared to be in no significant distress. IV access was obtained and laboratory work was drawn. 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 EKG reveals no evidence of acute ischemic change. Patient was given aspirin 324 mg and Pepcid 20 mg IV. Patient's external medical records were reviewed. Patient's laboratory work reveals hemoglobin of 8.5, stool is melanotic and guaiac positive. Protonix bolus and drip was ordered. Type and cross for 2 units to hold was ordered. Patient's initial troponin is negative. I did discuss the case with the hospitalist service will evaluate the patient for admission and further management. Patient and family were made aware of the plan and agreed. MONITORING: An order for cardiac monitoring was placed and the patient is noted to be in a normal sinus rhythm at 78 beats per minute. RADIOLOGY: Chest x-ray to my interpretation reveals no evidence of focal lung consolidation or failure. Otherwise defer to radiology's overread EKG: To my interpretation reveals normal sinus rhythm at 77 bpm with a right bundle branch block QTc of 454. Repolarization abnormality noted in the anterior leads. When compared to previous dated December 05, 2022, PVCs are no longer present. DISPOSITION: Admission Past Med/Surg History Medical History Diabetes HTN (hypertension) Kidney stones Mixed conductive and sensorineural hearing loss of left ear with restricted hearing of right ear Prostate cancer Sensorineural hearing loss of both ears Surgical History H/O hernia repair H/O prostatectomy History of knee replacement S/P tonsillectomy Family History Father Hypertension Heart disease Cancer Mother Cancer Hypertension Other No family history of adverse response to anesthesia No family history of bleeding disorder No pertinent family history Social History Smoking Status: Never smoker Second Hand Exposure: No; Hx Alcohol Use: No Hx Substance Use: No Preferred Language: [place]orese Communication Ability: Effective Career Transition Specialist Required: No Beliefs That Will Affect Care: None Current Living Situation: Family Current Living Situation Comment: son lives with him Feels Safe at Home: Yes Assistive Devices: Cane and Walker Allergies Allergies Allergy/AdvReac Type Severity Reaction Status Date / Time niacin Allergy Intermediate flushing Verified 12/28/22 01:06 gemfibrozil Allergy Unknown unknown Verified 12/28/22 01:06 patient does not remember pravastatin Allergy Unknown patient Verified 12/28/22 01:06 does not remember simvastatin [From Zocor] Allergy Unknown patient Verified 12/28/22 01:06 does not remember codeine AdvReac Intermediate HYPERACTIVI Verified 12/28/22 01:06 TY Home Meds Home Medications Medication Instructions Recorded Confirmed aspirin 81 mg tablet,delayed 81 mg PO HS 07/24/18 12/28/22 release lisinopril 20 mg tablet 20 mg PO BID 07/24/18 12/28/22 alogliptin 12.5 mg tablet 12.5 mg PO DAILY 08/25/20 12/28/22 ascorbate calcium (vitamin C) 500 500 mg PO DAILY 08/09/21 12/28/22 mg tablet atorvastatin 20 mg tablet 40 mg PO HS 08/09/21 12/28/22 cholecalciferol (vitamin D3) 25 25 mcg PO DAILY 08/09/21 12/28/22 mcg (1,000 unit) capsule cyanocobalamin (vitamin B-12) 500 mcg PO DAILY 08/09/21 12/28/22 1,000 mcg tablet meclizine 25 mg tablet 12.5 mg PO BID PRN Vertigo 08/09/21 12/28/22 prochlorperazine maleate 10 mg 10 mg PO Q6 PRN Nausea 11/17/21 12/28/22 tablet (Compazine) metformin 500 mg tablet 500 mg PO BID 02/14/22 12/28/22 ondansetron HCl 8 mg tablet 8 mg PO Q8H PRN Nausea 02/14/22 12/28/22 polyethylene glycol 3350 17 17 g PO DAILY 02/14/22 12/28/22 gram/dose oral powder (Miralax) Results & Data (ED) Vital Signs Vital Signs - 24 hr 12/28/22 00:43 12/28/22 00:57 12/28/22 00:57 Temperature 36.5 C Temperature Source Temporal Artery Scan Pulse Rate 82 74 78 Pulse Rate [Apical] Pulse Rate from SpO2 Sensor Pulse Rhythm [Apical] Pulse Strength [Apical] Respiratory Rate 18 17 Respiratory Effort / Characteristics Respiratory Depth Respiratory Pattern Blood Pressure 142/73 H Blood Pressure [Left Arm] Blood Pressure Mean 96 Blood Pressure Mean [Left Arm] Pulse Oximetry 97 95 Oxygen Delivery Method Room Air Room Air Sepsis Recent Fever Within 48 Hours No Sepsis New/Unexplained Change in Mental Status No Sepsis Action Taken by Nursing No Action Required 12/28/22 01:35 12/28/22 00:55 12/28/22 00:55 Temperature Temperature Source Pulse Rate 77 Pulse Rate [Apical] 78 Pulse Rate from SpO2 Sensor 78 Pulse Rhythm [Apical] Regular Pulse Strength [Apical] Normal Respiratory Rate 22 21 Respiratory Effort / Characteristics Non-Labored Respiratory Depth Normal Respiratory Pattern Regular Blood Pressure 160/73 H Blood Pressure [Left Arm] 104/58 L Blood Pressure Mean 102 Blood Pressure Mean [Left Arm] 73 Pulse Oximetry 94 97 Oxygen Delivery Method Room Air Sepsis Recent Fever Within 48 Hours Sepsis New/Unexplained Change in Mental Status Sepsis Action Taken by Nursing 12/28/22 01:00 12/28/22 01:10 12/28/22 01:20 Temperature Temperature Source Pulse Rate 72 70 72 Pulse Rate [Apical] Pulse Rate from SpO2 Sensor 72 70 72 Pulse Rhythm [Apical] Pulse Strength [Apical] Respiratory Rate 16 14 18 Respiratory Effort / Characteristics Respiratory Depth Respiratory Pattern Blood Pressure Blood Pressure [Left Arm] Blood Pressure Mean Blood Pressure Mean [Left Arm] Pulse Oximetry 95 95 96 Oxygen Delivery Method Sepsis Recent Fever Within 48 Hours Sepsis New/Unexplained Change in Mental Status Sepsis Action Taken by Nursing 12/28/22 01:30 12/28/22 01:31 12/28/22 01:31 Temperature Temperature Source Pulse Rate 70 69 Pulse Rate [Apical] Pulse Rate from SpO2 Sensor 68 69 Pulse Rhythm [Apical] Pulse Strength [Apical] Respiratory Rate 24 21 Respiratory Effort / Characteristics Respiratory Depth Respiratory Pattern Blood Pressure 130/76 130/76 Blood Pressure [Left Arm] Blood Pressure Mean 94 94 Blood Pressure Mean [Left Arm] Pulse Oximetry 95 96 Oxygen Delivery Method Sepsis Recent Fever Within 48 Hours Sepsis New/Unexplained Change in Mental Status Sepsis Action Taken by Nursing 12/28/22 01:36 12/28/22 01:36 12/28/22 01:40 Temperature Temperature Source Pulse Rate 80 75 Pulse Rate [Apical] Pulse Rate from SpO2 Sensor 81 74 Pulse Rhythm [Apical] Pulse Strength [Apical] Respiratory Rate 20 14 Respiratory Effort / Characteristics Respiratory Depth Respiratory Pattern Blood Pressure 104/58 L Blood Pressure [Left Arm] Blood Pressure Mean 73 Blood Pressure Mean [Left Arm] Pulse Oximetry 93 96 Oxygen Delivery Method Sepsis Recent Fever Within 48 Hours Sepsis New/Unexplained Change in Mental Status Sepsis Action Taken by Nursing 12/28/22 01:50 12/28/22 02:00 12/28/22 02:00 Temperature Temperature Source Pulse Rate 74 65 Pulse Rate [Apical] Pulse Rate from SpO2 Sensor Pulse Rhythm [Apical] Pulse Strength [Apical] Respiratory Rate 14 15 Respiratory Effort / Characteristics Respiratory Depth Respiratory Pattern Blood Pressure 116/62 Blood Pressure [Left Arm] Blood Pressure Mean 80 Blood Pressure Mean [Left Arm] Pulse Oximetry 96 Oxygen Delivery Method Sepsis Recent Fever Within 48 Hours Sepsis New/Unexplained Change in Mental Status Sepsis Action Taken by Nursing 12/28/22 02:10 12/28/22 03:00 12/28/22 03:30 Temperature Temperature Source Pulse Rate 66 66 66 Pulse Rate [Apical] Pulse Rate from SpO2 Sensor 66 66 Pulse Rhythm [Apical] Pulse Strength [Apical] Respiratory Rate 14 20 17 Respiratory Effort / Characteristics Respiratory Depth Respiratory Pattern Blood Pressure 126/63 109/55 L Blood Pressure [Left Arm] Blood Pressure Mean 84 73 Blood Pressure Mean [Left Arm] Pulse Oximetry 96 97 94 Oxygen Delivery Method Room Air Room Air Sepsis Recent Fever Within 48 Hours Sepsis New/Unexplained Change in Mental Status Sepsis Action Taken by Group Home Medications Current Medication List: was personally reviewed by me Laboratory Data Attestation: I reviewed the patient's lab results. 12/28/22 01:25 12/28/22 01:25 Lab Results 12/28/22 12/28/22 12/28/22 Range/Units 01:16 01:25 01:25 WBC 5.99 (4.8-10.8) K/ul RBC 2.57 L (4.70-6.10) M/uL Hgb 8.5 L (14.0-18.0) g/dl Hct 26.1 L (42.0-52.0) % MCV 101.6 H (80.0-100.0) fL MCH 33.1 (25.0-34.0) pg MCHC 32.6 (32.0-36.0) g/dL RDW Std Deviation 60.8 H (36.4-46.3) fL RDW Coeff of Katarzyna 16.8 H (11.5-14.5) % Plt Count 155 (130-400) K/uL MPV 8.9 L (9.4-12.4) fL Immature Gran % (Auto) 0.3 % Neut % (Auto) 67.9 % Lymph % (Auto) 19.0 % [place] % (Auto) 9.7 % Eos % (Auto) 2.8 % Baso % (Auto) 0.3 % Neut # (Auto) 4.06 (1.40-6.50) K/uL Lymph # (Auto) 1.14 L (1.2-3.4) K/uL [place] # (Auto) 0.58 (0.11-0.59) K/uL Eos # (Auto) 0.17 (0-0.50) K/uL Baso # (Auto) 0.02 (0-0.2) K/uL Immature Gran # (Auto) 0.02 (0.01-0.20) K/uL PT 10.2 (9.0-12.0) Seconds INR 1.0 (0.9-1.1) APTT 22.3 (21.0-31.0) Seconds PTT Ratio 0.8 Sodium (136-145) mmol/L Potassium (3.5-5.1) mmol/L Chloride (98-107) mmol/L Carbon Dioxide (21-32) mmol/L Anion Gap (3-11) BUN (6-23) mg/dl Creatinine (0.6-1.4) mg/dl Est Cr Clr Drug Dosing ml/min Est GFR ( Amer) ml/min Est GFR (Non-Af Amer) ml/min BUN/Creatinine Ratio (10-20) Glucose (70-99(Fasting)) mg/dl Calcium (8.5-10.1) mg/dl Total Bilirubin (0.2-1.0) mg/dl AST (13-39) U/L ALT (7-52) U/L Alkaline Phosphatase (34-104) U/L Troponin I High Sens (0-20) pg/ml Total Protein (6.0-8.3) gm/dl Albumin (3.4-5.0) gm/dl Globulin (2.5-4.0) gm/dl Albumin/Globulin Ratio (0.9-2) Lipase (11-82) U/L SARS-CoV-2, RNA, NAAT NEGATIVE (NEGATIVE) Blood Type Antibody Screen Crossmatch 12/28/22 12/28/22 Range/Units 01:25 02:35 WBC (4.8-10.8) K/ul RBC (4.70-6.10) M/uL Hgb (14.0-18.0) g/dl Hct (42.0-52.0) % MCV (80.0-100.0) fL MCH (25.0-34.0) pg MCHC (32.0-36.0) g/dL RDW Std Deviation (36.4-46.3) fL RDW Coeff of Katarzyna (11.5-14.5) % Plt Count (130-400) K/uL MPV (9.4-12.4) fL Immature Gran % (Auto) % Neut % (Auto) % Lymph % (Auto) % [place] % (Auto) % Eos % (Auto) % Baso % (Auto) % Neut # (Auto) (1.40-6.50) K/uL Lymph # (Auto) (1.2-3.4) K/uL [place] # (Auto) (0.11-0.59) K/uL Eos # (Auto) (0-0.50) K/uL Baso # (Auto) (0-0.2) K/uL Immature Gran # (Auto) (0.01-0.20) K/uL PT (9.0-12.0) Seconds INR (0.9-1.1) APTT (21.0-31.0) Seconds PTT Ratio Sodium 137 (136-145) mmol/L Potassium 4.5 (3.5-5.1) mmol/L Chloride 103 (98-107) mmol/L Carbon Dioxide 28 (21-32) mmol/L Anion Gap 6 (3-11) BUN 42 H (6-23) mg/dl Creatinine 2.09 H (0.6-1.4) mg/dl Est Cr Clr Drug Dosing 30.2 ml/min Est GFR ( Amer) 34.4 ml/min Est GFR (Non-Af Amer) 29.6 ml/min BUN/Creatinine Ratio 20.1 H (10-20) Glucose 191 H (70-99(Fasting)) mg/dl Calcium 9.6 (8.5-10.1) mg/dl Total Bilirubin 0.5 (0.2-1.0) mg/dl AST 12 L (13-39) U/L ALT 11 (7-52) U/L Alkaline Phosphatase 79 (34-104) U/L Troponin I High Sens 13.0 (0-20) pg/ml Total Protein 6.8 (6.0-8.3) gm/dl Albumin 4.1 (3.4-5.0) gm/dl Globulin 2.7 (2.5-4.0) gm/dl Albumin/Globulin Ratio 1.5 (0.9-2) Lipase 51 (11-82) U/L SARS-CoV-2, RNA, NAAT (NEGATIVE) Blood Type O Positive Antibody Screen NEGATIVE Crossmatch See Detail Administered Medications Pantoprazole Sodium 40 mg/ (Dextrose) 100 mls @ 20 mls/hr IV Q5H MARIE Stop: 01/27/23 02:14 Last Admin: 12/28/22 03:20 Dose: 8 mg/hr, 20 mls/hr Documented By: MARIE Sodium Chloride (Nss 1000ml) 1,000 mls @ 125 mls/hr IV .Q8H MARIE Stop: 01/27/23 02:14 Last Admin: 12/28/22 03:01 Dose: 125 mls/hr Documented By: MARIE Discontinued Medications Aspirin (Aspirin Chew 324 Mg) 324 mg PO NOW STA Stop: 12/28/22 01:07 Last Admin: 12/28/22 01:32 Dose: 324 mg Documented By: STEPHANE Famotidine 20 mg/ Syringe 5 mls @ 2.5 mls/min IV NOW STA Stop: 12/28/22 01:40 Last Admin: 12/28/22 03:20 Dose: 2.5 mls/min Documented By: MARIE Pantoprazole Sodium (Protonix Bolus/Drip) 0 mls @ 1 mls/hr IV ONE STA Stop: 12/28/22 01:57 Last Admin: 12/28/22 03:24 Dose: Not Given Documented By: MARIE Pantoprazole Sodium 80 mg/ (Dextrose) 120 mls @ 400 mls/hr IV NOW ONE Stop: 12/28/22 02:13 Last Infusion: 12/28/22 03:24 Dose: 0 mls/hr Documented By: Admin: 12/28/22 02:58 Dose: 400 mls/hr Documented By: MARIE Sodium Chloride (Nss 1000ml) 500 mls @ 999 mls/hr IV .Q31M ONE Stop: 12/28/22 02:31 Last Infusion: 12/28/22 03:08 Dose: 0 mls/hr Documented By: Admin: 12/28/22 02:30 Dose: 999 mls/hr Documented By: STEPHANE Nitroglycerin (Nitroglycerin Sl 0.4 Mg/Tab Tab) 0.4 mg SL NOW STA Stop: 12/28/22 01:07 Last Admin: 12/28/22 01:32 Dose: 0.4 mg Documented By: RSL Nitroglycerin (Nitroglycerin Sl 0.4 Mg/Tab Tab) 0.4 mg SL NOW STA Stop: 12/28/22 03:12 Last Admin: 12/28/22 03:21 Dose: 0.4 mg Documented By: MARIE Discharge Plan Visit Data Chief Complaint: Chest Pain Stated Complaint: CHEST PAIN ED Provider: Eladia Carver Discharge Problem: UGIB (upper gastrointestinal bleed), Esophageal cancer, ABLA (acute blood loss anemia) Patient Disposition: Admitted As Inpatient Forms Stand Alone Forms: [facility] Prescriptions Prescriptions: No Action meclizine 25 mg tablet 12.5 mg PO BID PRN (Reason: Vertigo) ascorbate calcium (vitamin C) 500 mg tablet 500 mg PO DAILY cholecalciferol (vitamin D3) 25 mcg (1,000 unit) capsule 25 mcg PO DAILY metformin 500 mg tablet 500 mg PO BID polyethylene glycol 3350 [Miralax] 17 gram/dose powder 17 g PO DAILY ondansetron HCl 8 mg tablet 8 mg PO Q8H PRN (Reason: Nausea) alogliptin 12.5 mg tablet 12.5 mg PO DAILY prochlorperazine maleate [Compazine] 10 mg tablet 10 mg PO Q6 PRN (Reason: Nausea) cyanocobalamin (vitamin B-12) 1,000 mcg tablet 500 mcg PO DAILY lisinopril 20 mg Tablet 20 mg PO BID aspirin 81 mg Tablet,Delayed Release (Dr/Ec) 81 mg PO HS atorvastatin 20 mg tablet 40 mg PO HS Referrals Referrals: Hortencia Leal PA-C [Primary Care Provider] -
[2022-12-28] MEDS ORDERED: FAMOTIDINE 20 MG in SYRINGE 3 ML IV STA (01:39)
[2022-12-28 01:41] LABS: Basophils # (auto) 0.02 K/uL (0-0.2); Basophils % (auto) 0.3 %; Eosinophils # (auto) 0.17 K/uL (0-0.50); Eosinophils % (auto) 2.8 %; Hematocrit (blood only) 26.1 % (42.0-52.0); Hemoglobin 8.5 g/dl (14.0-18.0); Immature Granulocytes # (auto) 0.02 K/uL (0.01-0.20); Immature Granulocytes % (auto) 0.3 %; Lymphocytes # (auto) 1.14 K/uL (1.2-3.4); Mean Corpuscular Hemoglobin 33.1 pg (25.0-34.0); Mean Corpuscular Hgb Conc 32.6 g/dL (32.0-36.0); Mean Corpuscular Volume 101.6 fL (80.0-100.0); Mean Platelet Volume 8.9 fL (9.4-12.4); Monocytes # (auto) 0.58 K/uL (0.11-0.59); Monocytes % (auto) 9.7 %; Neutrophils # (auto) 4.06 K/uL (1.40-6.50); Neutrophils % (auto) 67.9 %; Platelet Count 155 K/uL (130-400); RDW Coefficient of Variation 16.8 % (11.5-14.5); RDW Standard Deviation 60.8 fL (36.4-46.3); Red Blood Count 2.57 M/uL (4.70-6.10); White Blood Count 5.99 K/ul (4.8-10.8)
[2022-12-28] MEDS ORDERED: SODIUM CHLORIDE 0.9% 250 ML IV PRN (01:47)
[2022-12-28] MEDS ORDERED: PANTOprazole 80 MG in DEXTROSE 5% 100 ML IV ONE (01:56)
[2022-12-28] MEDS ORDERED: PANTOPRAZOLE BOLUS/DRIP 1 EACH IV STA (01:56)
[2022-12-28 01:59] LABS: Albumin Globulin Ratio 1.5 (0.9-2); Albumin Level 4.1 gm/dl (3.4-5.0); BUN Creatinine Ratio 20.1 (10-20); Bilirubin,Total 0.5 mg/dl (0.2-1.0); Calcium 9.6 mg/dl (8.5-10.1); Creatinine Clr Calc Pharmacy 30.2 ml/min; Est GFR (African American) 34.4 ml/min; Est GFR (Non-African American) 29.6 ml/min; Globulin 2.7 gm/dl (2.5-4.0); Potassium 4.5 mmol/L (3.5-5.1); Total Protein 6.8 gm/dl (6.0-8.3)
[2022-12-28] MEDS ORDERED: SODIUM CHLORIDE 0.9% 1000ML 500 ML IV ONE (02:01)
[2022-12-28 02:11] LABS: Partial Thromboplastin Ratio 0.8; Partial Thromboplastin Time 22.3 Seconds (21.0-31.0); Prothrombin Time 10.2 Seconds (9.0-12.0)
[2022-12-28] MEDS ORDERED: SODIUM CHLORIDE 0.9% 1000ML 1,000 ML IV SCH ×2 (02:15→04:16)
--- NOTE | 2022-12-28 03:02 | History & Physical Report ---
Patient seen and examined. I agree with the history and physical and the plan as outlined in the resident's note. Date of Service December 28, 2022 Assessment & Plan (1) Gastrointestinal hemorrhage: Plan: -Pt with BP 100s/50s and Hgb 8.5 on admission with FOBT+ melena, baseline Hgb appears around 11 -Unclear source- he is on aspirin and reports minimal/no NSAID use, does have background of esophageal cancer on chemotherapy -Last colonoscopy 2020 per last radiation oncology note- no evidence of malignancy, biopsies negative -Currently VSS with benign abdominal exam -Type and screened, serial H+H, transfuse Hgb < 7 -GI consult placed -Continue NSS 125 cc/hr, pantoprazole infusion -Measure intake and output (2) Chest pain: Plan: -Admission EKG without ST change, negative troponin -Suspect chest pain is likely driven by anemia 2/2 GI bleed rather than representing NC event -Continue to monitor (3) Acute kidney injury superimposed on chronic kidney disease: Plan: -Cr 2.09 on admission, baseline appears 1.7-1.8 -Likely due to volume loss from GI bleed -Continue NSS IVF -Trend BMP (4) Esophageal cancer: Plan: -Pt has apparently completed FOLFOX and nivolumab chemotherapy as of 2021 -Per last oncology note 08/02/2021. Upper EUS by Dr. Gomez. A hypoechoic mass was found in the lower third of the esophagus. The mass was encountered at 35 cm from the incisors and extended all the way to the mid stomach along the lesser curvature. The lesion was partially circumferential (involving two-thirds of the lumen circumference). The endosonographic borders were well-defined. The mass measured up to 10 mm in thickness. There was sonographic evidence suggesting invasion into the adventitia (Layer 5). The tumor is abutting the liver capsule. Multiple enlarged lymph nodes seen in the perigastric and carina hepatis areas however they are small in size and meauring < 1 cm, most of these were located behind the tumor. uT3N2. (5) DM (diabetes mellitus): Plan: -A1C 8.1% in 11/2022 -Holding home meds -SSI ordered, Lantus (6) HTN (hypertension): Plan: -Holding home lisinopril due to GI bleed (7) Hyperlipidemia: Plan: -Holding home statin due to GI bleed Plan FENGI: Clear liquids Code status: Full DVT ppx: SCDs, defer chemoprophylaxis for GI bleed Isolation: None Dispo: Medical/surgical with telemetry History of Present Illness Chief Complaint: chest pain Primary Care Provider: Hortencia Leal PA-C 77 yo M with PMH HTN, esophageal cancer on chemotherapy, CKD3, HLD, DM2 presenting with chest pain. Pt reports onset of chest pain about 4 days prior- middle and left side of chest, substernal, dull, moderate severity, no radiation elsewhere, resolved after few minutes. This would continue to occur intermittently since. This past evening he did not notice resolution after a few minutes as usual and came to ED. Pt arrived to ER hemodynamically stable, though later BP dropped to 100s/50s. Initial labs with Hgb 8.5, Cr 2.09. CBC, BMP, PT/INR, troponin, CXR otherwise unremarkable. EKG without acute ST change. He did have melanotic stool that was FOBT+ in ER. Administered aspirin and nitroglycerin for chest pain which resolved, then given NSS bolus/maintenance + pantoprazole infusion for presumed GI bleed. On my evaluation, pt reports chest pain at 3/10. He denies any abdominal pain. Otherwise feeling well without acute complaint. Allergies Allergy/AdvReac Type Severity Reaction Status Date / Time niacin Allergy Intermediate flushing Verified 12/28/22 01:06 gemfibrozil Allergy Unknown unknown Verified 12/28/22 01:06 patient does not remember pravastatin Allergy Unknown patient Verified 12/28/22 01:06 does not remember simvastatin [From Zocor] Allergy Unknown patient Verified 12/28/22 01:06 does not remember codeine AdvReac Intermediate HYPERACTIVI Verified 12/28/22 01:06 TY Home Medications Medication Instructions Recorded Confirmed Type aspirin 81 mg tablet,delayed 81 mg PO HS 07/24/18 12/28/22 History release lisinopril 20 mg tablet 20 mg PO BID 07/24/18 12/28/22 History alogliptin 12.5 mg tablet 12.5 mg PO DAILY 08/25/20 12/28/22 History ascorbate calcium (vitamin C) 500 500 mg PO DAILY 08/09/21 12/28/22 History mg tablet atorvastatin 20 mg tablet 40 mg PO HS 08/09/21 12/28/22 History cholecalciferol (vitamin D3) 25 25 mcg PO DAILY 08/09/21 12/28/22 History mcg (1,000 unit) capsule cyanocobalamin (vitamin B-12) 500 mcg PO DAILY 08/09/21 12/28/22 History 1,000 mcg tablet meclizine 25 mg tablet 12.5 mg PO BID PRN Vertigo 08/09/21 12/28/22 History prochlorperazine maleate 10 mg 10 mg PO Q6 PRN Nausea 11/17/21 12/28/22 History tablet (Compazine) metformin 500 mg tablet 500 mg PO BID 02/14/22 12/28/22 History ondansetron HCl 8 mg tablet 8 mg PO Q8H PRN Nausea 02/14/22 12/28/22 History polyethylene glycol 3350 17 17 g PO DAILY 02/14/22 12/28/22 History gram/dose oral powder (Miralax) Past Med/Surg History Medical History Diabetes HTN (hypertension) Kidney stones Mixed conductive and sensorineural hearing loss of left ear with restricted hearing of right ear Prostate cancer Sensorineural hearing loss of both ears Surgical History H/O hernia repair H/O prostatectomy History of knee replacement S/P tonsillectomy Family History Father Hypertension Heart disease Cancer Mother Cancer Hypertension Other No family history of adverse response to anesthesia No family history of bleeding disorder No pertinent family history Social History Smoking Status: Never smoker Second Hand Exposure: No; Hx Alcohol Use: No Hx Substance Use: No Preferred Language: Somali Communication Ability: Effective 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 Beliefs That Will Affect Care: None Current Living Situation: Family Current Living Situation Comment: son lives with him Feels Safe at Home: Yes Assistive Devices: Cane and Walker Review of Systems Review of Systems: Per HPI Physical Exam Physical Exam: General: tired-appearing elderly male, no acute distress HEENT: dry mucous membranes, PERRLA, EOMI, no lymphadenopathy or JVD, clear pharynx CV: RRR, normal S1 and S2, no murmurs Resp: CTAB, unlabored respirations Abd: soft, NT, ND, no guarding or rebound Neuro: AOx3, no focal motor or sensory deficits Skin: no rashes, warm and dry, mild central pallor Ext: no peripheral edema, pedal pulses intact b/l, no cyanosis Results & Data Results & Data ([facility]) Vital Signs (Past 12 Hours) Vital Signs Temp Pulse Pulse Resp BP BP Pulse Ox 12/28/22 02:10 66 14 96 12/28/22 02:00 65 15 12/28/22 02:00 116/62 96 12/28/22 01:50 74 14 12/28/22 01:40 75 14 96 12/28/22 01:36 104/58 L 12/28/22 01:36 80 20 93 12/28/22 01:31 130/76 12/28/22 01:31 69 21 96 12/28/22 01:30 70 24 130/76 95 12/28/22 01:20 72 18 96 12/28/22 01:10 70 14 95 12/28/22 01:00 72 16 95 12/28/22 00:55 77 21 97 12/28/22 00:55 160/73 H 12/28/22 01:35 78 22 104/58 L 94 12/28/22 00:57 78 12/28/22 00:57 74 17 95 12/28/22 00:43 36.5 C 82 18 142/73 H 97 O2 Del Method 12/28/22 02:10 12/28/22 02:00 12/28/22 02:00 12/28/22 01:50 12/28/22 01:40 12/28/22 01:36 12/28/22 01:36 12/28/22 01:31 12/28/22 01:31 12/28/22 01:30 12/28/22 01:20 12/28/22 01:10 12/28/22 01:00 12/28/22 00:55 12/28/22 00:55 12/28/22 01:35 Room Air 12/28/22 00:57 12/28/22 00:57 Room Air 12/28/22 00:43 Room Air Code Status & VTE Plan VTE Prophylaxis Plan VTE Prophylaxis will be ordered: Yes Resident Activity Tracking Resident Involvement: Resident Care Provided Care Provided: Adult Hospital Medicine
[2022-12-28] MEDS: PANTOprazole 40 MG in DEXTROSE 5% 100 ML IV SCH ×4 (03:20→20:35)
[2022-12-28] MEDS ORDERED: GLUCOSE 10 TAB/TUBE PO PRN (04:16)
[2022-12-28] MEDS ORDERED: CARBOHYDRATES FOR HYPOGLYCEMIA PO PRN (04:16)
[2022-12-28] MEDS ORDERED: GLUCOSE 40% GEL 15 GM TUBE PO PRN (04:16)
[2022-12-28] MEDS ORDERED: ONDANSETRON INJ 2 MG/ML 2 ML VIAL IV PRN (04:16)
[2022-12-28] MEDS ORDERED: HYDROmorphone INJ 0.5 MG/0.5 ML SYR IV PRN (04:16)
[2022-12-28] MEDS ORDERED: GLUCAGON FOR INJ 1 MG VIAL SQ PRN (04:16)
[2022-12-28] MEDS ORDERED: DEXTROSE 50% 50 ML SYRINGE IV PRN (04:16)
[2022-12-28] MEDS ORDERED: NITROGLYCERIN SL 0.4 MG/TAB TAB SL PRN (04:16)
[2022-12-28 07:07] LABS: Hematocrit (blood only) 22.8 % (42.0-52.0); Hemoglobin 7.4 g/dl (14.0-18.0)
[2022-12-28 07:21] LABS: BUN Creatinine Ratio 20.7 (10-20); Calcium 8.8 mg/dl (8.5-10.1); Creatinine Clr Calc Pharmacy 33.6 ml/min; Est GFR (African American) 39.1 ml/min; Est GFR (Non-African American) 33.7 ml/min; Potassium 4.5 mmol/L (3.5-5.1)
--- NOTE | 2022-12-28 07:43 | XRay Report ---
SINGLE VIEW CHEST CLINICAL HISTORY: Atypical chest pain. FINDINGS: An AP, portable, upright chest radiograph is compared to study dated 12/04/2022. Correlation is made with PET CT dated 07/27/2021. A left subclavian central venous infusion port is unchanged in position. The heart is enlarged noting atherosclerotic calcification of the thoracic aorta. The pulmo nary vasculature is noncongested. Scarring/atelectasis is noted at both lung bases. No airspace conso lidation or large pleural effusion is identified. No pneumothorax is seen. The skeletal structures ar e osteopenic. There is chronic posttraumatic deformity of the right clavicle. There are chronic left- sided rib fractures. IMPRESSION: Cardiomegaly with no acute cardiopulmonary abnormality identified. ACT 112: Negative or not required by law. Electronically signed by: Mars Beebe M.D. 12/28/2022 7:42 AM
[2022-12-28] MEDS: INSULIN ASPART PER UNIT SC SCH ×4 (08:47→20:30)
[2022-12-28] MEDS: LANTUS PER UNIT CHARGE SQ SCH ×2 (08:48→20:30)
--- NOTE | 2022-12-28 08:49 | Gastrointestinal Consultation ---
Date of Consultation December 28, 2022 Assessment & Plan (1) Esophageal cancer: (2) Chest pain: (3) Melena: Plan This is a 77 y/o male with h/o multiple co-morbidities including T2DM, HTN, prostate CA s/p tx and metastatic esophageal adenocarcinoma of the GEJ s/p chemo w/ FOLFOX ended 02/08/2022, now on Nivolumab, PET w/ MELL 05/2022, and presents with symptomatic acute anemia w/ CP, weakness, and reported dark/melanotic stools x the last few weeks. On exam abd soft, nontender. BP improved w/ IVF; currently HD stable. HGB dropped 13->7.4 since 11/28. Concern for UGIB (? source diff dx = esophagitis, PUD, recurrent malignancy, AVM, vs other, or proximal colonic/SB source). Trend H&H, BUN Transfuse PRN Continue IV PPI gtt Continue IVF Monitor all GI output Hold anticoagulation Keep NPO Plan for EGD today to evaluate for UGIB source Prior to endoscopic evaluation, we appreciate assistance in the management and correction of rivera laboratory elements including the following: Please optimize pt's hemoglobin >7, INR <2, platelets >50,000, potassium levels >3.5 but <5.3, and sodium levels within 5 points of the reference range. Thank you for allowing us to participate in the care of this patient. Please call with any acute changes, questions or concerns. Please see addendum below with additional recommendation from my supervising physician. Supervising Physician Co-Signing Physician Notes I personally saw and evaluated the patient on 12/28/2022 with FELY Silva. I agree with her findings and recommendations. 77 y/o male with PMH T2DM, HTN, HLD, prostate CA s/p radiation and metastatic esophageal adenocarcinoma of the GEJ extending into the stomach dx'd 06/2021, s/p 9 cycles of FOLFOX with last chemo 01/2022; now remains on Nivolumab. F/u PET scans have shown MELL, most recently 05/2022. Admitted with chest pain and melena with hgb drop from 11 --> 7. EGD performed this AM with malignant appearing tumor extending from the GEJ into the cardia, fundus, and body and an isolated spot on the incisura. The entire area involving the stomach was ulcerated with one area with pigmented spot indicating recent bleeding but no active bleeding. Biopsies not obtained this AM however after EGD primary team spoke with his primary oncologist who would like repeat biopsies to confirm if malignant as PET scan is not showing active disease. On physical exam abdomen is soft, non-tender, non-distended. he appears chronically ill and pale. Will plan for repeat EGD tomorrow 12/29 for biopsies to confirm if ongoing malignancy though endoscopically it does appear malignant and similiar to his prior EGD. NPO at midnight. Ok for clears today. PPI 40 mg BID. Trend H/H and transfuse for hgb <7 Nohemi Renteria DO Gastroenterology and Hepatology History of Present Illness Reason for Consultation: GI bleed Requesting Physician: Dr. Klein Attending Physician: Jewels Hernandes MD History of Present Illness This is a 77 y/o male with PMHx T2DM, HTN, HLD, prostate CA s/p radiation and metastatic esophageal adenocarcinoma of the GEJ dx'd 06/2021, s/p 9 cycles of FOLFOX; had allergic rxn and last chemo ; now remains on Nivolumab. Last chemo 02/08/2022. F/u PET scans have shown MELL, most recently 05/2022 (repeat PET scheduled for later this month). He was last night admitted after presenting with chest pain and melena. He's had chest pain for about a week; has left arm pain as well but he had a fall with left arm injury about a month ago so he's not sure if it's related. Regardless, the pain was worsening so he came to the ED. At the same time he has been noticing "dark" (black) stool for the last few weeks. At times is sticky. Stool is formed. He doesn't take oral iron. Took some Pepto the other day but doesn't take regularly. He has noticed some intermittent indigestion, weakness and SOB with walking upstairs as well which is new. On arrival found to have 8.5 (Baseline 13 as of 11/28), then was 9.7 on 12/26. Baseline BUN 28; on arrival was 42. Cr 2.09, otherwise CBC, BMP, INR, troponin CXR unremarkable. EKG w/o acute ST change. He had a melanotic stool that was + FOBT in the ER. Today had stolid stool; nurse feels dark but not quite melena. BP in the 100's/50's, tx w/ IVF, and placed on PPI bolus and gtt. Overnight HGB 7.4, BUN 39. BP today 130/76, pulse 64. In general appetite has been "too good" and denies weight loss. No dysphagia, odynophagia, nausea, vomiting, abd pain, hematochezia, hematemesis, fever, chills, cough, leg swelling. No NSAIDs, tobacco or ETOH. Takes baby ASA. Prior endoscopy: EUS 2020: Impression: - A mass was found in the lower third of the esophagus and extending to the mid stomach consistent with previously diagnosed adenocarcinoma. This was staged T3 N2 Mx by endosonographic criteria. Colonoscopy 2020: Impression: - One 5 mm polyp in the transverse colon, removed with a cold snare. Resected and retrieved. - Diverticulosis in the sigmoid colon. - Hemorrhoids. EGD 2020: Malignancy of the GEJ, with submucosal involvement of the proximal half of the stomach. Narrowing of the esophageal lumen without obstruction. A. Stomach, antrum, biopsies: Reactive gastropathy/chemical gastritis No specialized intestinal metaplasia or dysplasia is seen B. Stomach, body, biopsies: Invasive adenocarcinoma, intestinal-type (see microscopic findings) C. Stomach, cardia, biopsies: Invasive adenocarcinoma, intestinal-type (see microscopic findings) D. Esophagus, biopsies: Invasive adenocarcinoma, intestinal-type (see microscopic findings) E. Colon, biopsies: Fragments of hyperplastic polyp Colonoscopy 2018: Impression: - Diverticulosis in the sigmoid colon and in the descending colon. - Three 2 to 4 mm polyps in the transverse colon and in the ascending colon, removed with a cold snare. Resected and retrieved. - The examination was otherwise normal Colonoscopy 2013: - One 4 mm polyp in the sigmoid colon. Resected and retrieved. - Diverticulosis in the sigmoid colon. - The examination was otherwise normal. Allergies Allergy/AdvReac Type Severity Reaction Status Date / Time niacin Allergy Intermediate flushing Verified 12/28/22 01:06 gemfibrozil Allergy Unknown unknown Verified 12/28/22 01:06 patient does not remember pravastatin Allergy Unknown patient Verified 12/28/22 01:06 does not remember simvastatin [From Zocor] Allergy Unknown patient Verified 12/28/22 01:06 does not remember codeine AdvReac Intermediate HYPERACTIVI Verified 12/28/22 01:06 TY Home Medications Medication Instructions Recorded Confirmed Type aspirin 81 mg tablet,delayed 81 mg PO HS 07/24/18 12/28/22 History release lisinopril 20 mg tablet 20 mg PO BID 07/24/18 12/28/22 History alogliptin 12.5 mg tablet 12.5 mg PO DAILY 08/25/20 12/28/22 History ascorbate calcium (vitamin C) 500 500 mg PO DAILY 08/09/21 12/28/22 History mg tablet atorvastatin 20 mg tablet 40 mg PO HS 08/09/21 12/28/22 History cholecalciferol (vitamin D3) 25 25 mcg PO DAILY 08/09/21 12/28/22 History mcg (1,000 unit) capsule cyanocobalamin (vitamin B-12) 500 mcg PO DAILY 08/09/21 12/28/22 History 1,000 mcg tablet meclizine 25 mg tablet 12.5 mg PO BID PRN Vertigo 08/09/21 12/28/22 History prochlorperazine maleate 10 mg 10 mg PO Q6 PRN Nausea 11/17/21 12/28/22 History tablet (Compazine) metformin 500 mg tablet 500 mg PO BID 02/14/22 12/28/22 History ondansetron HCl 8 mg tablet 8 mg PO Q8H PRN Nausea 02/14/22 12/28/22 History polyethylene glycol 3350 17 17 g PO DAILY 02/14/22 12/28/22 History gram/dose oral powder (Miralax) Patient History Medical History Diabetes HTN (hypertension) Kidney stones Mixed conductive and sensorineural hearing loss of left ear with restricted hearing of right ear Prostate cancer Sensorineural hearing loss of both ears Surgical History H/O hernia repair H/O prostatectomy History of knee replacement S/P tonsillectomy Family History Father Hypertension Heart disease Cancer Mother Cancer Hypertension Other No family history of adverse response to anesthesia No family history of bleeding disorder No pertinent family history Social History Smoking Status: Never smoker Second Hand Exposure: No; Hx Alcohol Use: No Hx Substance Use: No Preferred Language: Korean Communication Ability: Effective Vault Person Required: No Beliefs That Will Affect Care: None Current Living Situation: Family Current Living Situation Comment: son Feels Safe at Home: Yes Assistive Devices: Cane, Glasses and Walker Review of Systems Review of Systems: All systems reviewed & are unremarkable except as noted in HPI & below Physical Exam Constitutional: well developed, well nourished and comfortable; no acute distress Eyes: + pale conjunctiva ENMT: moist mucous membranes Neck: trachea midline supple Respiratory: normal respiratory effort, lungs clear to auscultation Cardiovascular: RRR, no murmur, no edema Gastrointestinal (Abdomen): normal bowel sounds, soft, nontender, no hepatosplenomegaly Inspection/Auscultation: abdomen not distended Skin: no rashes, warm and dry ( + Pale ) Neurologic: alert and oriented x 3, no obvious focal neuro deficit Psychiatric: normal mood and affect Results & Data ([facility]) Vital Signs (Past 12 Hours) Vital Signs Temp Pulse Pulse Resp BP BP BP 12/28/22 07:43 64 12/28/22 07:30 36.5 C 78 18 131/76 12/28/22 04:20 65 12/28/22 05:19 64 119/72 12/28/22 04:10 37.4 C 67 18 161/75 H 12/28/22 03:30 66 17 109/55 L 12/28/22 03:00 66 20 126/63 12/28/22 02:10 66 14 12/28/22 02:00 65 15 12/28/22 02:00 116/62 12/28/22 01:50 74 14 12/28/22 01:40 75 14 12/28/22 01:36 104/58 L 12/28/22 01:36 80 20 12/28/22 01:31 130/76 12/28/22 01:31 69 21 12/28/22 01:30 70 24 130/76 12/28/22 01:20 72 18 12/28/22 01:10 70 14 12/28/22 01:00 72 16 12/28/22 00:55 77 21 12/28/22 00:55 160/73 H 12/28/22 01:35 78 22 104/58 L 12/28/22 00:57 78 12/28/22 00:57 74 17 12/28/22 00:43 36.5 C 82 18 142/73 H Pulse Ox O2 Del Method 12/28/22 07:43 12/28/22 07:30 96 Room Air 12/28/22 04:20 12/28/22 05:19 96 Room Air 12/28/22 04:10 98 Room Air 12/28/22 03:30 94 Room Air 12/28/22 03:00 97 Room Air 12/28/22 02:10 96 12/28/22 02:00 12/28/22 02:00 96 12/28/22 01:50 12/28/22 01:40 96 12/28/22 01:36 12/28/22 01:36 93 12/28/22 01:31 12/28/22 01:31 96 12/28/22 01:30 95 12/28/22 01:20 96 12/28/22 01:10 95 12/28/22 01:00 95 12/28/22 00:55 97 12/28/22 00:55 12/28/22 01:35 94 Room Air 12/28/22 00:57 12/28/22 00:57 95 Room Air 12/28/22 00:43 97 Room Air Laboratory Results 12/28/22 12/28/22 12/28/22 Range/Units 07:27 06:22 06:22 WBC (4.8-10.8) K/ul RBC (4.70-6.10) M/uL Hgb 7.4 L (14.0-18.0) g/dl Hct 22.8 L (42.0-52.0) % MCV (80.0-100.0) fL MCH (25.0-34.0) pg MCHC (32.0-36.0) g/dL RDW Std Deviation (36.4-46.3) fL RDW Coeff of Katarzyna (11.5-14.5) % Plt Count (130-400) K/uL MPV (9.4-12.4) fL Immature Gran % (Auto) % Neut % (Auto) % Lymph % (Auto) % Ritchie % (Auto) % Eos % (Auto) % Baso % (Auto) % Neut # (Auto) (1.40-6.50) K/uL Lymph # (Auto) (1.2-3.4) K/uL Ritchie # (Auto) (0.11-0.59) K/uL Eos # (Auto) (0-0.50) K/uL Baso # (Auto) (0-0.2) K/uL Immature Gran # (Auto) (0.01-0.20) K/uL PT (9.0-12.0) Seconds INR (0.9-1.1) APTT (21.0-31.0) Seconds PTT Ratio Sodium 138 (136-145) mmol/L Potassium 4.5 (3.5-5.1) mmol/L Chloride 106 (98-107) mmol/L Carbon Dioxide 28 (21-32) mmol/L Anion Gap 4 (3-11) BUN 39 H (6-23) mg/dl Creatinine 1.88 H (0.6-1.4) mg/dl Est Cr Clr Drug Dosing 33.6 ml/min Est GFR ( Amer) 39.1 ml/min Est GFR (Non-Af Amer) 33.7 ml/min BUN/Creatinine Ratio 20.7 H (10-20) Glucose 190 H (70-99(Fasting)) mg/dl POC Glucose 234 H (70-99) mg/dl Calcium 8.8 (8.5-10.1) mg/dl Total Bilirubin (0.2-1.0) mg/dl AST (13-39) U/L ALT (7-52) U/L Alkaline Phosphatase (34-104) U/L Troponin I High Sens (0-20) pg/ml Total Protein (6.0-8.3) gm/dl Albumin (3.4-5.0) gm/dl Globulin (2.5-4.0) gm/dl Albumin/Globulin Ratio (0.9-2) Lipase (11-82) U/L SARS-CoV-2, RNA, NAAT (NEGATIVE) Blood Type Antibody Screen Crossmatch 12/28/22 12/28/22 12/28/22 Range/Units 04:35 02:35 01:25 WBC (4.8-10.8) K/ul RBC (4.70-6.10) M/uL Hgb (14.0-18.0) g/dl Hct (42.0-52.0) % MCV (80.0-100.0) fL MCH (25.0-34.0) pg MCHC (32.0-36.0) g/dL RDW Std Deviation (36.4-46.3) fL RDW Coeff of Katarzyna (11.5-14.5) % Plt Count (130-400) K/uL MPV (9.4-12.4) fL Immature Gran % (Auto) % Neut % (Auto) % Lymph % (Auto) % Ritchie % (Auto) % Eos % (Auto) % Baso % (Auto) % Neut # (Auto) (1.40-6.50) K/uL Lymph # (Auto) (1.2-3.4) K/uL Ritchie # (Auto) (0.11-0.59) K/uL Eos # (Auto) (0-0.50) K/uL Baso # (Auto) (0-0.2) K/uL Immature Gran # (Auto) (0.01-0.20) K/uL PT (9.0-12.0) Seconds INR (0.9-1.1) APTT (21.0-31.0) Seconds PTT Ratio Sodium 137 (136-145) mmol/L Potassium 4.5 (3.5-5.1) mmol/L Chloride 103 (98-107) mmol/L Carbon Dioxide 28 (21-32) mmol/L Anion Gap 6 (3-11) BUN 42 H (6-23) mg/dl Creatinine 2.09 H (0.6-1.4) mg/dl Est Cr Clr Drug Dosing 30.2 ml/min Est GFR ( Amer) 34.4 ml/min Est GFR (Non-Af Amer) 29.6 ml/min BUN/Creatinine Ratio 20.1 H (10-20) Glucose 191 H (70-99(Fasting)) mg/dl POC Glucose 210 H (70-99) mg/dl Calcium 9.6 (8.5-10.1) mg/dl Total Bilirubin 0.5 (0.2-1.0) mg/dl AST 12 L (13-39) U/L ALT 11 (7-52) U/L Alkaline Phosphatase 79 (34-104) U/L Troponin I High Sens 13.0 (0-20) pg/ml Total Protein 6.8 (6.0-8.3) gm/dl Albumin 4.1 (3.4-5.0) gm/dl Globulin 2.7 (2.5-4.0) gm/dl Albumin/Globulin Ratio 1.5 (0.9-2) Lipase 51 (11-82) U/L SARS-CoV-2, RNA, NAAT (NEGATIVE) Blood Type O Positive Antibody Screen NEGATIVE Crossmatch See Detail 12/28/22 12/28/22 12/28/22 Range/Units 01:25 01:25 01:16 WBC 5.99 (4.8-10.8) K/ul RBC 2.57 L (4.70-6.10) M/uL Hgb 8.5 L (14.0-18.0) g/dl Hct 26.1 L (42.0-52.0) % MCV 101.6 H (80.0-100.0) fL MCH 33.1 (25.0-34.0) pg MCHC 32.6 (32.0-36.0) g/dL RDW Std Deviation 60.8 H (36.4-46.3) fL RDW Coeff of Katarzyna 16.8 H (11.5-14.5) % Plt Count 155 (130-400) K/uL MPV 8.9 L (9.4-12.4) fL Immature Gran % (Auto) 0.3 % Neut % (Auto) 67.9 % Lymph % (Auto) 19.0 % Ritchie % (Auto) 9.7 % Eos % (Auto) 2.8 % Baso % (Auto) 0.3 % Neut # (Auto) 4.06 (1.40-6.50) K/uL Lymph # (Auto) 1.14 L (1.2-3.4) K/uL Ritchie # (Auto) 0.58 (0.11-0.59) K/uL Eos # (Auto) 0.17 (0-0.50) K/uL Baso # (Auto) 0.02 (0-0.2) K/uL Immature Gran # (Auto) 0.02 (0.01-0.20) K/uL PT 10.2 (9.0-12.0) Seconds INR 1.0 (0.9-1.1) APTT 22.3 (21.0-31.0) Seconds PTT Ratio 0.8 Sodium (136-145) mmol/L Potassium (3.5-5.1) mmol/L Chloride (98-107) mmol/L Carbon Dioxide (21-32) mmol/L Anion Gap (3-11) BUN (6-23) mg/dl Creatinine (0.6-1.4) mg/dl Est Cr Clr Drug Dosing ml/min Est GFR ( Amer) ml/min Est GFR (Non-Af Amer) ml/min BUN/Creatinine Ratio (10-20) Glucose (70-99(Fasting)) mg/dl POC Glucose (70-99) mg/dl Calcium (8.5-10.1) mg/dl Total Bilirubin (0.2-1.0) mg/dl AST (13-39) U/L ALT (7-52) U/L Alkaline Phosphatase (34-104) U/L Troponin I High Sens (0-20) pg/ml Total Protein (6.0-8.3) gm/dl Albumin (3.4-5.0) gm/dl Globulin (2.5-4.0) gm/dl Albumin/Globulin Ratio (0.9-2) Lipase (11-82) U/L SARS-CoV-2, RNA, NAAT NEGATIVE (NEGATIVE) Blood Type Antibody Screen Crossmatch Diagnostic Findings CXR: FINDINGS: An AP, portable, upright chest radiograph is compared to study dated 12/04/2022. Correlation is made with PET CT dated 07/27/2021. A left subclavian central venous infusion port is unchanged in position. The heart is enlarged noting atherosclerotic calcification of the thoracic aorta. The pulmonary vasculature is noncongested. Scarring/atelectasis is noted at both lung bases. No airspace consolidation or large pleural effusion is identified. No pneumothorax is seen. The skeletal structures are osteopenic. There is chronic posttraumatic deformity of the right clavicle. There are chronic left-sided rib fractures. IMPRESSION: Cardiomegaly with no acute cardiopulmonary abnormality identified. (1) Esophageal cancer Malignant neoplasm of esophagus location: unspecified location Qualified Code(s): C15.9 - Malignant neoplasm of esophagus, unspecified
--- NOTE | 2022-12-28 09:11 | Hospitalist Progress Note ---
Date of Service December 28, 2022 Assessment & Plan (1) Gastrointestinal hemorrhage: Plan: -Pt with BP 100s/50s and Hgb 8.5 on admission with FOBT+ melena, baseline Hgb appears around 11 -BP 131/76 this morning and Hgb 7.4 today; Repeat Hgb 7.4 this afternoon -Type and screened, serial H+H, transfuse Hgb if < 7 -EGD done today showed no evidence of active bleed but atypical tissue present at lower esophagus and stomach -Will monitor for bleeding, will address as needed if occurs -Continue normal saline 125 cc/hr, and PPI 40 mg BID -Measure intake and output (2) Esophageal cancer: Plan: -Per 01/2022 note, was stage T3, N2 -undergoing immunotherapy, last treatment 12/28/2022 -reached out to oncologist: Last Hgb in office was 9.7; May 2022 PET scan negative for malignancy: repeat EGD with biopsy scheduled for tomorrow (3) Chest pain: Plan: -Admission EKG without ST change, negative troponin at 13 -Suspect chest pain is likely driven by anemia from GI bleed rather than representing DC event, may also be MSK due to a fall from last month that he still feels sore from -Continue to monitor (4) Acute kidney injury superimposed on chronic kidney disease: Plan: -Cr 2.09 on admission, baseline appears 1.7-1.8 -Cr 1.88 today, improving -Likely due to volume loss from GI bleed -Continue NSS IVF -Trend BMP (5) DM (diabetes mellitus): Plan: -A1C 8.1% in 11/2022 -Holding home meds -SSI ordered, Lantus (6) HTN (hypertension): Plan: -Holding home lisinopril due to GI bleed (7) Hyperlipidemia: Plan: -Holding home statin due to GI bleed Plan FENGI: Clear liquids, NPO after midnight Code status: Full DVT ppx: SCDs, defer chemoprophylaxis for GI bleed Isolation: None Dispo: Medical/surgical with telemetry Admission and Anticipated Discharge Date Admission Date: December 28, 2022 Supervising Physician Co-Signing Physician Notes Medical Student Supervision Note: I was personally present during medical student patient encounter and independently interviewed and examined the patient and verified the rivera history and physical, reviewed labs and image studies, discussed the case with Izabel Manning and agree with the findings and care plan. 77 yo M with PMHx of esophageal cancer on immunotherapy presented with chest pain and noted to have drop in his h/h with positive guaiac stool. I spoke to his oncologist this am - He has had 2 PET scans - last one in may 2022 with no disease. He was seen by his oncologist recently who ordered labs and had a drop in hb and noted high blood sugar. He was scheduled to have his immunotherapy at the visit but it was rescheduled. On admission - started on IV protonix, IVF, h/h monitoring. GI consulted. Underwent EGD this am. No active bleeding site noted. He had another bout of chest pain walking to the bathroom and also whenever he moves his arm. o/e - Pleasant, comfortable in bed. AAOx3; Heart - regular; No respiratory distress; a/p GI bleed -s/p EGD - no active bleeding. Atypical tissue in lower esophagus/stomach +. Likely cause of bleeding. I spoke to GI team regarding oncology findings - patient is scheduled to have repeat EGD for esophageal tumor tissue biopsy. -continue PPI, IVF, h/h monitoring. Transfuse for acute hemorrhage of hb <7. -continue clear liquids Esophageal Ca- was in remission per PET in may 2022. Had been getting immunotherapy. Will get repeat EGD in am for biopsy. Chest pain - neg trop. no ST T changes on EKG. likely MSK related. follow. TANNER on CKD -improving with IV hydration. follow bmp DM - holding home meds. on SSI, lantus HTN/HLD- holding lisinopril and statin SCDs Subjective 77 yo male with a past medical history of esophageal cancer on immunotherapy, hypertension, CKD stage 3, hyperlipidemia, type 2 diabetes presenting with chest pain. 12/28: Today patient is feeling weak. Still is experiencing the chest pain that he presented but it has become intermittent. Last bowel movement was very dark. Is voiding well. Still has left-sided pain from a fall last month. Patient reports that his last immunotherapy treatment was yesterday and was scheduled to have a PET scan earlier this week, but this was rescheduled until next week because his blood glucose level was high. Review of Systems Review of Systems: All systems reviewed & are unremarkable except as noted in HPI & below Physical Exam Physical Exam: General: Well appearing, well nourished, in no distress. Oriented x 3. Heart: No cardiomegaly or thrills; regular rate and rhythm, no murmurs, rubs, or gallops Lungs: Normal respiratory effort. Clear to auscultation. Abdomen: Bowel sounds normal, tenderness to left upper and lower quadrants with palpation Extremities: No peripheral edema Neurologic: No focal neurologic deficits Psychiatric: Normal mood and affect. Results & Data Results & Data ([facility]) Vital Signs (Past 12 Hours) Vital Signs Temp Pulse Pulse Resp BP BP BP 12/28/22 07:43 64 12/28/22 07:30 36.5 C 78 18 131/76 12/28/22 04:20 65 12/28/22 05:19 64 119/72 12/28/22 04:10 37.4 C 67 18 161/75 H 12/28/22 03:30 66 17 109/55 L 12/28/22 03:00 66 20 126/63 12/28/22 02:10 66 14 12/28/22 02:00 65 15 12/28/22 02:00 116/62 12/28/22 01:50 74 14 12/28/22 01:40 75 14 12/28/22 01:36 104/58 L 12/28/22 01:36 80 20 12/28/22 01:31 130/76 12/28/22 01:31 69 21 12/28/22 01:30 70 24 130/76 12/28/22 01:20 72 18 12/28/22 01:10 70 14 12/28/22 01:00 72 16 12/28/22 00:55 77 21 12/28/22 00:55 160/73 H 12/28/22 01:35 78 22 104/58 L 12/28/22 00:57 78 12/28/22 00:57 74 17 12/28/22 00:43 36.5 C 82 18 142/73 H Pulse Ox O2 Del Method 12/28/22 07:43 12/28/22 07:30 96 Room Air 12/28/22 04:20 12/28/22 05:19 96 Room Air 12/28/22 04:10 98 Room Air 12/28/22 03:30 94 Room Air 12/28/22 03:00 97 Room Air 12/28/22 02:10 96 12/28/22 02:00 12/28/22 02:00 96 12/28/22 01:50 12/28/22 01:40 96 12/28/22 01:36 12/28/22 01:36 93 12/28/22 01:31 12/28/22 01:31 96 12/28/22 01:30 95 12/28/22 01:20 96 12/28/22 01:10 95 12/28/22 01:00 95 12/28/22 00:55 97 12/28/22 00:55 12/28/22 01:35 94 Room Air 12/28/22 00:57 12/28/22 00:57 95 Room Air 12/28/22 00:43 97 Room Air (2) Esophageal cancer Malignant neoplasm of esophagus location: unspecified location Qualified Code(s): C15.9 - Malignant neoplasm of esophagus, unspecified
[2022-12-28] MEDS ORDERED: PROPOFOL IV EMULSION 10 MG/ML 20 ML VIAL IV ONE (09:36)
--- NOTE | 2022-12-28 09:37 | History & Physical Report ---
Date of Service December 28, 2022 Assessment & Plan (1) Melena: Plan: Proceed with planned EGD. Admission and Anticipated Discharge Date Admission Date: December 28, 2022 History of Present Illness Chief Complaint: here for EGD. Primary Care Provider: Hortencia Leal PA-C 77 y/o M with history of esophageal cancer on chemotherapy (nivolumab) now with melena. Planning for EGD given concern for UGI bleed. HGB 11 --> 7. 4. Allergies Allergy/AdvReac Type Severity Reaction Status Date / Time niacin Allergy Intermediate flushing Verified 12/28/22 01:06 gemfibrozil Allergy Unknown unknown Verified 12/28/22 01:06 patient does not remember pravastatin Allergy Unknown patient Verified 12/28/22 01:06 does not remember simvastatin [From Zocor] Allergy Unknown patient Verified 12/28/22 01:06 does not remember codeine AdvReac Intermediate HYPERACTIVI Verified 12/28/22 01:06 TY Home Medications Medication Instructions Recorded Confirmed Type aspirin 81 mg tablet,delayed 81 mg PO HS 07/24/18 12/28/22 History release lisinopril 20 mg tablet 20 mg PO BID 07/24/18 12/28/22 History alogliptin 12.5 mg tablet 12.5 mg PO DAILY 08/25/20 12/28/22 History ascorbate calcium (vitamin C) 500 500 mg PO DAILY 08/09/21 12/28/22 History mg tablet atorvastatin 20 mg tablet 40 mg PO HS 08/09/21 12/28/22 History cholecalciferol (vitamin D3) 25 25 mcg PO DAILY 08/09/21 12/28/22 History mcg (1,000 unit) capsule cyanocobalamin (vitamin B-12) 500 mcg PO DAILY 08/09/21 12/28/22 History 1,000 mcg tablet meclizine 25 mg tablet 12.5 mg PO BID PRN Vertigo 08/09/21 12/28/22 History prochlorperazine maleate 10 mg 10 mg PO Q6 PRN Nausea 11/17/21 12/28/22 History tablet (Compazine) metformin 500 mg tablet 500 mg PO BID 02/14/22 12/28/22 History ondansetron HCl 8 mg tablet 8 mg PO Q8H PRN Nausea 02/14/22 12/28/22 History polyethylene glycol 3350 17 17 g PO DAILY 02/14/22 12/28/22 History gram/dose oral powder (Miralax) Past Med/Surg History Medical History Diabetes HTN (hypertension) Kidney stones Mixed conductive and sensorineural hearing loss of left ear with restricted hearing of right ear Prostate cancer Sensorineural hearing loss of both ears Surgical History H/O hernia repair H/O prostatectomy History of knee replacement S/P tonsillectomy Family History Father Hypertension Heart disease Cancer Mother Cancer Hypertension Other No family history of adverse response to anesthesia No family history of bleeding disorder No pertinent family history Social History Smoking Status: Never smoker Second Hand Exposure: No; Hx Alcohol Use: No Hx Substance Use: No Preferred Language: Micronesian Communication Ability: Effective 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 Required: No Beliefs That Will Affect Care: None Current Living Situation: Family Current Living Situation Comment: son Feels Safe at Home: Yes Assistive Devices: Cane, Glasses and Walker Review of Systems All systems reviewed & are unremarkable except as noted in HPI & below Physical Exam Constitutional: WD/WN, vitals as above Respiratory: normal respiratory effort, lungs clear to auscultation Cardiovascular: RRR, no murmur, no edema Gastrointestinal (Abdomen): normal bowel sounds, soft, nontender, no hepatosplenomegaly Psychiatric: A+Ox3, euthymic affect Results & Data ([facility]) Vital Signs (Past 12 Hours) Vital Signs Temp Pulse Pulse Resp BP BP BP 12/28/22 07:43 64 12/28/22 07:30 36.5 C 78 18 131/76 12/28/22 04:20 65 12/28/22 05:19 64 119/72 12/28/22 04:10 37.4 C 67 18 161/75 H 12/28/22 03:30 66 17 109/55 L 12/28/22 03:00 66 20 126/63 12/28/22 02:10 66 14 12/28/22 02:00 65 15 12/28/22 02:00 116/62 12/28/22 01:50 74 14 12/28/22 01:40 75 14 12/28/22 01:36 104/58 L 12/28/22 01:36 80 20 12/28/22 01:31 130/76 12/28/22 01:31 69 21 12/28/22 01:30 70 24 130/76 12/28/22 01:20 72 18 12/28/22 01:10 70 14 12/28/22 01:00 72 16 12/28/22 00:55 77 21 12/28/22 00:55 160/73 H 12/28/22 01:35 78 22 104/58 L 12/28/22 00:57 78 12/28/22 00:57 74 17 12/28/22 00:43 36.5 C 82 18 142/73 H Pulse Ox O2 Del Method 12/28/22 07:43 12/28/22 07:30 96 Room Air 12/28/22 04:20 12/28/22 05:19 96 Room Air 12/28/22 04:10 98 Room Air 12/28/22 03:30 94 Room Air 12/28/22 03:00 97 Room Air 12/28/22 02:10 96 12/28/22 02:00 12/28/22 02:00 96 12/28/22 01:50 12/28/22 01:40 96 12/28/22 01:36 12/28/22 01:36 93 12/28/22 01:31 12/28/22 01:31 96 12/28/22 01:30 95 12/28/22 01:20 96 12/28/22 01:10 95 12/28/22 01:00 95 12/28/22 00:55 97 12/28/22 00:55 12/28/22 01:35 94 Room Air 12/28/22 00:57 12/28/22 00:57 95 Room Air 12/28/22 00:43 97 Room Air Code Status & VTE Plan VTE Prophylaxis Plan VTE Prophylaxis will be ordered: Yes
[2022-12-28] MEDS ORDERED: LIDOCAINE 2% MPF LOCAL 5 ML VIAL INFIL ONE (09:40)
--- NOTE | 2022-12-28 10:00 | Anesthesiology Consultation ---
Date of Service December 28, 2022 Assessment & Plan Chart Review Chart Review: Acceptable Risk for Surgery and Patient NOT seen in Pre Admission Testing Consults Requested medical & cardiac Pulmonary ASA ASA3 Proposed Anesthesia Anesthesia Type: MAC Risk / Benefits Reviewed With: PT / POA / Parent / Guardian, Accepts Plan and Informed Consent Obtained History Surgery Operation Date: 12/28/22 16:30 Proposed Procedures p Esophagogastroduodenoscopy Dexter Renteria, Height/Weight Height: 5 ft 5 in Weight: 88.133 kg Allergies Allergy/AdvReac Type Severity Reaction Status Date / Time niacin Allergy Intermediate flushing Verified 12/28/22 01:06 gemfibrozil Allergy Unknown unknown Verified 12/28/22 01:06 patient does not remember pravastatin Allergy Unknown patient Verified 12/28/22 01:06 does not remember simvastatin [From Zocor] Allergy Unknown patient Verified 12/28/22 01:06 does not remember codeine AdvReac Intermediate HYPERACTIVI Verified 12/28/22 01:06 TY Medications Home Medications Medication Instructions Recorded Confirmed Last Taken aspirin 81 mg tablet,delayed 81 mg PO HS 07/24/18 12/28/22 12/27/22 release lisinopril 20 mg tablet 20 mg PO BID 07/24/18 12/28/22 12/27/22 alogliptin 12.5 mg tablet 12.5 mg PO DAILY 08/25/20 12/28/22 12/27/22 ascorbate calcium (vitamin C) 500 500 mg PO DAILY 08/09/21 12/28/22 12/27/22 mg tablet atorvastatin 20 mg tablet 40 mg PO HS 08/09/21 12/28/22 12/27/22 cholecalciferol (vitamin D3) 25 25 mcg PO DAILY 08/09/21 12/28/22 12/27/22 mcg (1,000 unit) capsule cyanocobalamin (vitamin B-12) 500 mcg PO DAILY 08/09/21 12/28/22 12/27/22 1,000 mcg tablet meclizine 25 mg tablet 12.5 mg PO BID PRN Vertigo 08/09/21 12/28/22 Unknown prochlorperazine maleate 10 mg 10 mg PO Q6 PRN Nausea 11/17/21 12/28/22 Unknown tablet (Compazine) metformin 500 mg tablet 500 mg PO BID 02/14/22 12/28/22 12/27/22 ondansetron HCl 8 mg tablet 8 mg PO Q8H PRN Nausea 02/14/22 12/28/22 Unknown polyethylene glycol 3350 17 17 g PO DAILY 02/14/22 12/28/22 12/27/22 gram/dose oral powder (Miralax) Active Medications Generic Name Dose Route Start Last Admin Trade Name Freq PRN Reason Stop Dose Admin Pantoprazole Sodium 40 mg/ 100 mls @ 20 mls/hr 12/28/22 02:15 12/28/22 09:14 Dextrose IV 01/27/23 02:14 8 mg/hr Q5H MARIE 20 mls/hr Administration 8 MG/HR Sodium Chloride 1,000 mls @ 125 mls/hr 12/28/22 04:16 12/28/22 04:44 Nss 1000ml IV 12/28/22 12:15 125 mls/hr .Q8H MRAIE Administration Insulin Aspart 0 units 12/28/22 07:30 12/28/22 08:47 Insulin Aspart Per Unit SC 01/27/23 07:29 8 units ACHS MARIE Administration Insulin Glargine 5 units 12/28/22 09:00 12/28/22 08:48 Lantus Per Unit Charge SQ 01/27/23 08:59 5 units BID MARIE Administration NPO Date Last Intake of Fluids: 12/27/22 Time Last Intake of Fluids: 19:00 Date Last Intake of Solids: 12/27/22 Time Last Intake of Solids: 19:00 Past Medical History Medical History Diabetes HTN (hypertension) Kidney stones Mixed conductive and sensorineural hearing loss of left ear with restricted hearing of right ear Prostate cancer Sensorineural hearing loss of both ears Past Family History Family History Father Hypertension Heart disease Cancer Mother Cancer Hypertension Other No family history of adverse response to anesthesia No family history of bleeding disorder No pertinent family history Past Surgical History Surgical History H/O hernia repair H/O prostatectomy History of knee replacement S/P tonsillectomy Social History Smoking Status: Never smoker Hx Alcohol Use: No Hx Substance Use: No Physical Exam Vital Signs Last Vital Signs Temp 37.1 C 12/28/22 09:45 Pulse 79 12/28/22 09:45 Resp 16 12/28/22 09:45 BP 179/63 H 12/28/22 09:45 Pulse Ox 97 12/28/22 09:45 O2 Del Method Room Air 12/28/22 09:45 Constitutional + obese; no acute distress ENMT Mouth: no TMJ abnormality Thyromental Distance: > or= 3.5 Finger Breadths Mallampati Class: III Neck normal visual inspection Respiratory normal respiratory effort Auscultation: lungs clear to auscultation bilaterally Cardiovascular Rate/Rhythm: regular rate and regular rhythm Musculoskeletal Spine: normal cervical ROM Extremities: extremities normal to inspection Neurologic moves all extremities Psychiatric Orientation: alert and oriented x 3 Testing Laboratory Results 12/28/22 06:22 12/28/22 06:22 PT 10.2 Seconds (9.0-12.0) 12/28/22 01:25 INR 1.0 (0.9-1.1) 12/28/22 01:25 APTT 22.3 Seconds (21.0-31.0) 12/28/22 01:25 Blood Type O Positive 12/28/22 02:35 Antibody Screen NEGATIVE 12/28/22 02:35 12/28/22 12/28/22 07:27 04:35 POC Glucose 234 H 210 H
[2022-12-28] MEDS ORDERED: PHENYLEPHRINE 100MCG/ML 5ML SYR ONE (10:24)
--- NOTE | 2022-12-28 10:27 | GI REPORT ---
Patient Name: Heath Austin Procedure Date: 12/28/2022 9:35 AM Date of : 1945 Admit Type: Inpatient Age: 77 Gender: Male Attending MD: Nohemi Renteria DO, Procedure: Upper GI endoscopy Providers: Nohemi Renteria DO Referring MD: Jewels Hernandes Indications: Melena Patient Profile: This is a 77 year old male. Refer to note in patient chart for documentation of history and physical. Medicines: Monitored Anesthesia Care Complications: No immediate complications. Estimated Blood Loss: Estimated blood loss: none. Procedure: Pre-Anesthesia Assessment: - Prior to the procedure, a History and Physical was performed, and patient medications and allergies were reviewed. The risks and benefits of the procedure and the sedation options and risks were discussed with the patient. All questions were answered and informed consent was obtained. Patient identification and proposed procedure were verified by the physician and the nurse in the procedure room. Mental Status Examination: alert and oriented. Airway Examination: Mallampati Class II (the uvula but not tonsillar pillars visualized). Respiratory Examination: clear to auscultation. CV Examination: RRR, no murmurs, no S3 or S4. Prophylactic Antibiotics: The patient does not require prophylactic antibiotics. Prior Anticoagulants: The patient has taken no anticoagulant or antiplatelet agents except for aspirin. ASA Grade Assessment: III - A patient with severe systemic disease. After reviewing the risks and benefits, the patient was deemed in satisfactory condition to undergo the procedure. The anesthesia plan was to use monitored anesthesia care (MAC). Immediately prior to administration of medications, the patient was re-assessed for adequacy to receive sedatives. The physical status of the patient was re-assessed after the procedure. After obtaining informed consent, the endoscope was passed under direct vision. Throughout the procedure, the patient's blood pressure, pulse, and oxygen saturations were monitored continuously. The Endoscope was introduced through the mouth, and advanced to the second part of duodenum. The upper GI endoscopy was accomplished without difficulty. The patient tolerated the procedure well. Findings: The Z-line was regular and was found 39 cm from the incisors. The examined esophagus was normal. A large, ulcerated mass with no bleeding and stigmata of recent bleeding was found in the cardia, in the gastric fundus, in the gastric body and at the incisura. A few erosions with no bleeding and no stigmata of recent bleeding were found in the gastric antrum. One non-bleeding cratered duodenal ulcer with a clean ulcer base (Nikunj Class III) was found in the duodenal bulb. The lesion was 3 mm in largest dimension. The exam of the duodenum was otherwise normal. Impression: - Z-line regular, 39 cm from the incisors. - Normal esophagus. Malignant tumor started right below the GEJ. 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 This mass was ulcerated in multiple areas and one had a flat pigmented spot which recently bled. There was no old or fresh blood in the stomach. No hemospray applied today as there was no active bleeding. - Erosive gastropathy with no bleeding and no stigmata of recent bleeding. - Non-bleeding duodenal ulcer with a clean ulcer base (Nikunj Class III). - No specimens collected. Recommendation: - [facility] care. - Resume previous diet. - Continue present medications. - PPI 40 mg BID - Further management of previous biopsy proven adenocarcinoma per oncology. Unfortunately, there is not much to control tumor bleeding in the stomach other than hemospray which is temporary and did not need to be applied today. Can consider radiation therapy if ongoing bleeding issues but will defer to oncology. - Continue to trend H/H and transfuse for hgb <7 Nohemi Renteria DO 12/28/2022 10:26:20 AM Note Initiated On: 12/28/2022 9:35 AM Number of Addenda: 0 I attest to the content of the Intraoperative Record and orders documented therein, exceptions below {[id number]}
--- NOTE | 2022-12-28 10:29 | Anesthesiology Progress Note ---
Date of Service December 28, 2022 Anesthesia Post Procedure Vital Signs Vital Signs: Temp Pulse Pulse Resp BP BP BP 12/28/22 10:21 37.1 C 69 14 87/43 L 12/28/22 09:45 37.1 C 79 16 179/63 H 12/28/22 07:43 64 12/28/22 07:30 36.5 C 78 18 131/76 12/28/22 04:20 65 12/28/22 05:19 64 119/72 12/28/22 04:10 37.4 C 67 18 161/75 H 12/28/22 03:30 66 17 109/55 L 12/28/22 03:00 66 20 126/63 12/28/22 02:10 66 14 12/28/22 02:00 65 15 12/28/22 02:00 116/62 12/28/22 01:50 74 14 12/28/22 01:40 75 14 12/28/22 01:36 104/58 L 12/28/22 01:36 80 20 12/28/22 01:31 130/76 12/28/22 01:31 69 21 12/28/22 01:30 70 24 130/76 12/28/22 01:20 72 18 12/28/22 01:10 70 14 12/28/22 01:00 72 16 12/28/22 00:55 77 21 12/28/22 00:55 160/73 H 12/28/22 01:35 78 22 104/58 L 12/28/22 00:57 78 12/28/22 00:57 74 17 12/28/22 00:43 36.5 C 82 18 142/73 H Pulse Ox O2 Del Method 12/28/22 10:21 97 Room Air 12/28/22 09:45 97 Room Air 12/28/22 07:43 12/28/22 07:30 96 Room Air 12/28/22 04:20 12/28/22 05:19 96 Room Air 12/28/22 04:10 98 Room Air 12/28/22 03:30 94 Room Air 12/28/22 03:00 97 Room Air 12/28/22 02:10 96 12/28/22 02:00 12/28/22 02:00 96 12/28/22 01:50 12/28/22 01:40 96 12/28/22 01:36 12/28/22 01:36 93 12/28/22 01:31 12/28/22 01:31 96 12/28/22 01:30 95 12/28/22 01:20 96 12/28/22 01:10 95 12/28/22 01:00 95 12/28/22 00:55 97 12/28/22 00:55 12/28/22 01:35 94 Room Air 12/28/22 00:57 12/28/22 00:57 95 Room Air 12/28/22 00:43 97 Room Air Pain Intensity Chest: Pain Intensity: 3 Transfer of Care Handoff Completed per policy Notes Mental Status: alert / awake / arousable and participated in evaluation Patient Amnestic to Procedure: Yes Nausea / Vomiting: adequately controlled Pain: adequately controlled Airway Patency, RR, SpO2: stable & adequate BP & HR: stable & adequate Hydration State: stable & adequate Anesthetic Complications: no major complications apparent and Pt Satisfied with anesthetic care
--- NOTE | 2022-12-28 12:54 | Electrocardiogram Report ---
Test Reason : Blood Pressure : / mmHG Vent. Rate : 077 BPM Atrial Rate : 077 BPM P-R Int : 168 ms QRS Dur : 140 ms QT Int : 402 ms P-R-T Axes : 066 -25 -14 degrees QTc Int : 454 ms Normal sinus rhythm Right bundle branch block Abnormal ECG When compared with ECG of 05-DEC-2022 06:07, Premature ventricular complexes are no longer Present Confirmed by Adriano Lorenz ([id number]) on 12/28/2022 12:53:53 PM Referred By: REFERRED SELF Confirmed By:Adriano Lorenz
--- NOTE | 2022-12-28 13:05 | Communication Note ---
Date of Service: December 28, 2022 Update: Endoscopist spoke with pt's oncologist who is asking for biopsies of the pt's malignant appearing gastric tumor to confirm that it is malignant. Pt in agreement to have repeat EGD with biopsies. This will be arranged for tomorrow. Recs: - Pt can have clear liquid diet today. - NPO at midnight - Continue IV PPI BID - Trend H&H, transfuse PRN - Monitor and document stool output - EGD tomorrow for biopsy of malignant appearing gastric tumor Prior to endoscopic evaluation, we appreciate assistance in the management and correction of [facility] laboratory elements including the following: Please optimize pt's hemoglobin >7, INR <2, platelets >50,000, potassium levels >3.5 but <5.3, and sodium levels within 5 points of the reference range. Thank you for allowing us to participate in the care of this patient. Please call with any acute changes, questions or concerns. Please see addendum below with additional recommendation from my supervising physician.
[2022-12-28 14:27] LABS: Hematocrit (blood only) 23.1 % (42.0-52.0); Hemoglobin 7.4 g/dl (14.0-18.0)
[2022-12-28 19:53] LABS: Hemoglobin 7.6 g/dl (14.0-18.0)
[2022-12-29] MEDS: PANTOprazole 40 MG in DEXTROSE 5% 100 ML IV SCH ×5 (01:36→21:47)
[2022-12-29] MEDS ORDERED: HEPARIN 100 UNIT/ML 5ML FLUSH FLUSH PRN (02:30)
[2022-12-29 04:24] LABS: Hematocrit (blood only) 22.7 % (42.0-52.0); Hemoglobin 7.4 g/dl (14.0-18.0)
[2022-12-29 04:37] LABS: Albumin Globulin Ratio 1.4 (0.9-2); Albumin Level 3.6 gm/dl (3.4-5.0); BUN Creatinine Ratio 13.3 (10-20); Bilirubin,Total 0.6 mg/dl (0.2-1.0); Creatinine Clr Calc Pharmacy 32.4 ml/min; Est GFR (African American) 37.4 ml/min; Est GFR (Non-African American) 32.2 ml/min; Globulin 2.5 gm/dl (2.5-4.0); Potassium 4.1 mmol/L (3.5-5.1); Total Protein 6.1 gm/dl (6.0-8.3)
[2022-12-29] MEDS: LANTUS PER UNIT CHARGE SQ SCH ×2 (08:38→20:31)
[2022-12-29] MEDS: INSULIN ASPART PER UNIT SC SCH ×4 (08:38→20:21)
[2022-12-29] MEDS ORDERED: PROPOFOL IV EMULSION 10 MG/ML 20 ML VIAL IV ONE (12:34)
[2022-12-29] MEDS ORDERED: LIDOCAINE 2% MPF LOCAL 5 ML VIAL INFIL ONE (12:34)
--- NOTE | 2022-12-29 12:58 | History & Physical Report ---
Date of Service December 29, 2022 Assessment & Plan (1) Esophageal cancer: Plan: Proceed with EGD and biopsies. Admission and Anticipated Discharge Date Admission Date: December 28, 2022 History of Present Illness Chief Complaint: here today for EGD. Primary Care Provider: Hortencia Leal PA-C 77 y/o M with history of esophageal cancer here today for EGD with biopsies. Allergies Allergy/AdvReac Type Severity Reaction Status Date / Time niacin Allergy Intermediate flushing Verified 12/29/22 12:05 gemfibrozil Allergy Unknown unknown Verified 12/29/22 12:05 patient does not remember pravastatin Allergy Unknown patient Verified 12/29/22 12:05 does not remember simvastatin [From Zocor] Allergy Unknown patient Verified 12/29/22 12:05 does not remember codeine AdvReac Intermediate HYPERACTIVI Verified 12/29/22 12:05 TY Home Medications Medication Instructions Recorded Confirmed Type aspirin 81 mg tablet,delayed 81 mg PO HS 07/24/18 12/28/22 History release lisinopril 20 mg tablet 20 mg PO BID 07/24/18 12/28/22 History alogliptin 12.5 mg tablet 12.5 mg PO DAILY 08/25/20 12/28/22 History ascorbate calcium (vitamin C) 500 500 mg PO DAILY 08/09/21 12/28/22 History mg tablet atorvastatin 20 mg tablet 40 mg PO HS 08/09/21 12/28/22 History cholecalciferol (vitamin D3) 25 25 mcg PO DAILY 08/09/21 12/28/22 History mcg (1,000 unit) capsule cyanocobalamin (vitamin B-12) 500 mcg PO DAILY 08/09/21 12/28/22 History 1,000 mcg tablet meclizine 25 mg tablet 12.5 mg PO BID PRN Vertigo 08/09/21 12/28/22 History prochlorperazine maleate 10 mg 10 mg PO Q6 PRN Nausea 11/17/21 12/28/22 History tablet (Compazine) metformin 500 mg tablet 500 mg PO BID 02/14/22 12/28/22 History ondansetron HCl 8 mg tablet 8 mg PO Q8H PRN Nausea 02/14/22 12/28/22 History polyethylene glycol 3350 17 17 g PO DAILY 02/14/22 12/28/22 History gram/dose oral powder (Miralax) Past Med/Surg History Medical History Diabetes HTN (hypertension) Kidney stones Mixed conductive and sensorineural hearing loss of left ear with restricted hearing of right ear Prostate cancer Sensorineural hearing loss of both ears Surgical History H/O hernia repair H/O prostatectomy History of knee replacement S/P tonsillectomy Family History Father Hypertension Heart disease Cancer Mother Cancer Hypertension Other No family history of adverse response to anesthesia No family history of bleeding disorder No pertinent family history Social History Smoking Status: Never smoker Second Hand Exposure: No; Hx Alcohol Use: No Hx Substance Use: No Preferred Language: Romansh Communication Ability: Effective Bus Transportation Manager Required: No Beliefs That Will Affect Care: None Current Living Situation: Family Current Living Situation Comment: son Feels Safe at Home: Yes Assistive Devices: Cane and Walker Review of Systems All systems reviewed & are unremarkable except as noted in HPI & below Physical Exam Constitutional: WD/WN, vitals as above Respiratory: normal respiratory effort, lungs clear to auscultation Cardiovascular: RRR, no murmur, no edema Gastrointestinal (Abdomen): normal bowel sounds, soft, nontender, no hepatosplenomegaly Psychiatric: A+Ox3, euthymic affect Results & Data ([facility]) Vital Signs (Past 12 Hours) Vital Signs Temp Pulse Pulse Pulse Resp BP BP 12/29/22 12:06 36.4 C L 66 66 18 151/81 H 12/29/22 11:32 37.1 C 62 20 123/66 12/29/22 07:32 36.6 C 63 18 114/73 12/29/22 07:14 65 12/29/22 04:00 36.7 C 67 20 126/74 Pulse Ox O2 Del Method 12/29/22 12:06 98 Room Air 12/29/22 11:32 94 Room Air 12/29/22 07:32 96 Room Air 12/29/22 07:14 12/29/22 04:00 96 Room Air Code Status & VTE Plan VTE Prophylaxis Plan VTE Prophylaxis will be ordered: Yes (1) Esophageal cancer Malignant neoplasm of esophagus location: unspecified location Qualified Cod e(s): C15.9 - Malignant neoplasm of esophagus, unspecified
--- NOTE | 2022-12-29 13:18 | Anesthesiology Consultation ---
Date of Service December 29, 2022 Assessment & Plan Chart Review Chart Review: Acceptable Risk for Surgery and Patient NOT seen in Pre Admission Testing Consults Requested none ASA ASA3 Proposed Anesthesia Anesthesia Type: MAC Risk / Benefits Reviewed With: PT / POA / Parent / Guardian, Accepts Plan and Informed Consent Obtained Additional Comments: Had same procedure yesterday History Surgery Operation Date: 12/28/22 16:30 Proposed Procedures p Esophagogastroduodenoscopy Dexter Renteria DO Operation Date: 12/29/22 17:15 Proposed Procedures p Esophagogastroduodenoscopy Dexter Renteria, Height/Weight Height: 5 ft 5 in Weight: 85.9 kg Allergies Allergy/AdvReac Type Severity Reaction Status Date / Time niacin Allergy Intermediate flushing Verified 12/29/22 12:05 gemfibrozil Allergy Unknown unknown Verified 12/29/22 12:05 patient does not remember pravastatin Allergy Unknown patient Verified 12/29/22 12:05 does not remember simvastatin [From Zocor] Allergy Unknown patient Verified 12/29/22 12:05 does not remember codeine AdvReac Intermediate HYPERACTIVI Verified 12/29/22 12:05 TY Medications Home Medications Medication Instructions Recorded Confirmed Last Taken aspirin 81 mg tablet,delayed 81 mg PO HS 07/24/18 12/28/22 12/27/22 release lisinopril 20 mg tablet 20 mg PO BID 07/24/18 12/28/22 12/27/22 alogliptin 12.5 mg tablet 12.5 mg PO DAILY 08/25/20 12/28/22 12/27/22 ascorbate calcium (vitamin C) 500 500 mg PO DAILY 08/09/21 12/28/22 12/27/22 mg tablet atorvastatin 20 mg tablet 40 mg PO HS 08/09/21 12/28/22 12/27/22 cholecalciferol (vitamin D3) 25 25 mcg PO DAILY 08/09/21 12/28/22 12/27/22 mcg (1,000 unit) capsule cyanocobalamin (vitamin B-12) 500 mcg PO DAILY 08/09/21 12/28/22 12/27/22 1,000 mcg tablet meclizine 25 mg tablet 12.5 mg PO BID PRN Vertigo 08/09/21 12/28/22 Unknown prochlorperazine maleate 10 mg 10 mg PO Q6 PRN Nausea 11/17/21 12/28/22 Unknown tablet (Compazine) metformin 500 mg tablet 500 mg PO BID 02/14/22 12/28/22 12/27/22 ondansetron HCl 8 mg tablet 8 mg PO Q8H PRN Nausea 02/14/22 12/28/22 Unknown polyethylene glycol 3350 17 17 g PO DAILY 02/14/22 12/28/22 12/27/22 gram/dose oral powder (Miralax) Active Medications Generic Name Dose Route Start Last Admin Trade Name Freq PRN Reason Stop Dose Admin Pantoprazole Sodium 40 mg/ 100 mls @ 20 mls/hr 12/28/22 02:15 12/29/22 08:30 Dextrose IV 01/27/23 02:14 8 mg/hr Q5H MARIE 20 mls/hr Administration 8 MG/HR Insulin Aspart 0 units 12/28/22 07:30 12/29/22 12:00 Insulin Aspart Per Unit SC 01/27/23 07:29 Not Given ACHS MARIE Insulin Glargine 5 units 12/28/22 09:00 12/29/22 08:38 Lantus Per Unit Charge SQ 01/27/23 08:59 5 units BID MARIE Administration NPO Date Last Intake of Fluids: 12/28/22 Time Last Intake of Fluids: 23:55 Date Last Intake of Solids: 12/26/22 Time Last Intake of Solids: 19:00 Past Medical History Medical History Diabetes HTN (hypertension) Kidney stones Mixed conductive and sensorineural hearing loss of left ear with restricted hearing of right ear Prostate cancer Sensorineural hearing loss of both ears Past Family History Family History Father Hypertension Heart disease Cancer Mother Cancer Hypertension Other No family history of adverse response to anesthesia No family history of bleeding disorder No pertinent family history Past Surgical History Surgical History H/O hernia repair H/O prostatectomy History of knee replacement S/P tonsillectomy Social History Smoking Status: Never smoker Hx Alcohol Use: No Hx Substance Use: No Physical Exam Vital Signs Last Vital Signs Temp 36.4 C L 12/29/22 12:06 Pulse 66 12/29/22 12:06 Resp 18 12/29/22 12:06 BP 151/81 H 12/29/22 12:06 Pulse Ox 98 12/29/22 12:06 O2 Del Method Room Air 12/29/22 12:06 Constitutional + obese; no acute distress ENMT Mouth: no TMJ abnormality Thyromental Distance: > or= 3.5 Finger Breadths Mallampati Class: III Neck normal visual inspection Respiratory normal respiratory effort Auscultation: lungs clear to auscultation bilaterally Cardiovascular Rate/Rhythm: regular rate and regular rhythm Musculoskeletal Spine: normal cervical ROM Extremities: extremities normal to inspection Neurologic moves all extremities Psychiatric Orientation: alert and oriented x 3 Testing Laboratory Results 12/29/22 04:02 12/29/22 04:02 PT 10.2 Seconds (9.0-12.0) 12/28/22 01:25 INR 1.0 (0.9-1.1) 12/28/22 01:25 APTT 22.3 Seconds (21.0-31.0) 12/28/22 01:25 Blood Type O Positive 12/28/22 02:35 Antibody Screen NEGATIVE 12/28/22 02:35 12/29/22 12/29/22 11:45 07:45 POC Glucose 131 H 193 H
[2022-12-29] MEDS ORDERED: PHENYLEPHRINE HCL 10 MG/ML VIAL ONE (13:19)
--- NOTE | 2022-12-29 13:44 | GI REPORT ---
Patient Name: Heath Austin Procedure Date: 12/29/2022 1:04 PM Date of : 1945 Admit Type: Inpatient Age: 77 Gender: Male Attending MD: Nohemi Renteria DO, Procedure: Upper GI endoscopy Providers: Nohemi Renteria DO Referring MD: Jewels Hernandes Indications: Follow-up of esophageal tumor Patient Profile: This is a 77 year old male. Refer to note in patient chart for documentation of history and physical. Medicines: Monitored Anesthesia Care Complications: No immediate complications. Estimated Blood Loss: Estimated blood loss was minimal. Procedure: Pre-Anesthesia Assessment: - Prior to the procedure, a History and Physical was performed, and patient medications and allergies were reviewed. The risks and benefits of the procedure and the sedation options and risks were discussed with the patient. All questions were answered and informed consent was obtained. Patient identification and proposed procedure were verified by the physician, the nurse and the river driver in the procedure room. Mental Status Examination: alert and oriented. Airway Examination: Mallampati Class II (the uvula but not tonsillar pillars visualized). Respiratory Examination: clear to auscultation. CV Examination: RRR, no murmurs, no S3 or S4. Prophylactic Antibiotics: The patient does not require prophylactic antibiotics. Prior Anticoagulants: The patient has taken no anticoagulant or antiplatelet agents. ASA Grade Assessment: III - A patient with severe systemic disease. After reviewing the risks and benefits, the patient was deemed in satisfactory condition to undergo the procedure. The anesthesia plan was to use monitored anesthesia care (MAC). Immediately prior to administration of medications, the patient was re-assessed for adequacy to receive sedatives. The physical status of the patient was re-assessed after the procedure. After obtaining informed consent, the endoscope was passed under direct vision. Throughout the procedure, the patient's blood pressure, pulse, and oxygen saturations were monitored continuously. The Endoscope was introduced through the mouth, and advanced to the second part of duodenum. The upper GI endoscopy was accomplished without difficulty. The patient tolerated the procedure well. Findings: The Z-line was regular and was found 39 cm from the incisors. The examined esophagus was normal. A large, ulcerated mass with no bleeding and stigmata of recent bleeding was found in the cardia, in the gastric fundus and in the gastric body. Biopsies were taken with a cold forceps for histology. Mucosal changes characterized by nodularity were found at the incisura. Biopsies were taken with a cold forceps for histology. One non-bleeding cratered duodenal ulcer with a clean ulcer base (Nikunj Class III) was found in the duodenal bulb. The lesion was 3 mm in largest dimension. The exam of the duodenum was otherwise normal. Impression: - Z-line regular, 39 cm from the incisors. - Normal esophagus. 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 Biopsied. There was bleeding from biopsies as the tissue was extremely friable and ulcerated. The biopsy sites did clot off but the tissue is very friable with significant bleeding from small biopsy samples. - Nodular mucosa in the incisura. Biopsied. - Non-bleeding duodenal ulcer with a clean ulcer base (Nikunj Class III). Recommendation: - [facility] to [facility] care. - Full liquid diet. - Continue present medications. - Await pathology results. - PPI 40 mg BID and liquid carafate BID. Nohemi Renteria, 12/29/2022 1:44:26 PM Note Initiated On: 12/29/2022 1:04 PM Number of Addenda: 0 I attest to the content of the Intraoperative Record and orders documented therein, exceptions below {[id number]}
--- NOTE | 2022-12-29 13:48 | Anesthesiology Progress Note ---
Date of Service December 29, 2022 Anesthesia Post Procedure Vital Signs Vital Signs: Temp Pulse Pulse Pulse Resp BP BP 12/29/22 13:39 61 16 99/50 L 12/29/22 12:06 36.4 C L 66 66 18 151/81 H 12/29/22 11:32 37.1 C 62 20 123/66 12/29/22 07:32 36.6 C 63 18 114/73 12/29/22 07:14 65 12/29/22 04:00 36.7 C 67 20 126/74 12/28/22 22:00 72 12/28/22 22:48 36.9 C 66 18 115/66 12/28/22 19:45 36.8 C 67 20 121/72 12/28/22 15:36 36.8 C 64 18 113/64 12/28/22 14:10 70 Pulse Ox O2 Del Method 12/29/22 13:39 95 Room Air 12/29/22 12:06 98 Room Air 12/29/22 11:32 94 Room Air 12/29/22 07:32 96 Room Air 12/29/22 07:14 12/29/22 04:00 96 Room Air 12/28/22 22:00 12/28/22 22:48 95 Room Air 12/28/22 19:45 95 Room Air 12/28/22 15:36 95 Room Air 12/28/22 14:10 Pain Intensity Chest: Pain Intensity: 3 Transfer of Care Handoff Completed per policy Notes Mental Status: alert / awake / arousable and participated in evaluation Patient Amnestic to Procedure: Yes Nausea / Vomiting: adequately controlled Pain: adequately controlled Airway Patency, RR, SpO2: stable & adequate BP & HR: stable & adequate Hydration State: stable & adequate Anesthetic Complications: no major complications apparent and Pt Satisfied with anesthetic care
--- NOTE | 2022-12-29 14:12 | Hospitalist Progress Note ---
Date of Service December 29, 2022 Assessment & Plan (1) Gastrointestinal hemorrhage: Plan: Heath is a 77 yo male with a past medical history of esophageal cancer on immunotherapy, hypertension, CKD stage 3, hyperlipidemia, and type 2 diabetes presenting with chest pain and GI bleed. -Pt with BP 100s/50s and Hgb 8.5 on admission with FOBT+ melena, baseline Hgb appears around 11 -BP 131/76 this morning and Hgb 7.4 today -Type and screened, serial H+H, transfuse Hgb if < 7 -EGD done yesterday showed no evidence of active bleed but atypical tissue present at lower esophagus and stomach. Planned for repeat EGD and biopsy today. -Will monitor for bleeding, will address as needed if occurs. -Continue normal saline 125 cc/hr, and PPI 40 mg BID -Measure intake and output (2) Esophageal cancer: Plan: -Per 01/2022 note, was stage T3, N2 -undergoing immunotherapy, last treatment 12/28/2022 -reached out to oncologist: Last Hgb in office was 9.7; May 2022 PET scan negative for malignancy. Repeat EGD with biopsy completed today (3) Chest pain: Plan: -Admission EKG without ST change, negative troponin at 13 -Suspect chest pain is likely driven by anemia from GI bleed rather than representing ND event, may also be MSK due to a fall from last month that he still feels sore from. Probably reflux-related to an extent. -Continue to monitor (4) Acute kidney injury superimposed on chronic kidney disease: Plan: -Cr 2.09 on admission, baseline appears 1.7-1.8 -Cr 1.95 today, likely to volume loss/dehydration -Continue NSS IVF -Trend BMP (5) DM (diabetes mellitus): Plan: -A1c 8.1% in 11/2022 -Holding home meds -SSI ordered, Lantus (6) HTN (hypertension): Plan: -Holding home lisinopril due to GI bleed (7) Hyperlipidemia: Plan: -Holding home statin due to GI bleed Plan FENGI: Clear liquids Code status: Full DVT ppx: SCDs, defer chemoprophylaxis for GI bleed Isolation: None Dispo: Medical/surgical with telemetry Admission and Anticipated Discharge Date Admission Date: December 28, 2022 Supervising Physician Co-Signing Physician Notes Medical Student Supervision Note: I was personally present during medical student patient encounter and independently interviewed and examined the patient and verified the rivera history and physical, reviewed labs and image studies, discussed the case with Izabel Manning and agree with the findings and care plan. 77 yo M with PMHx of esophageal cancer on immunotherapy presented with chest pain and noted to have drop in his h/h with positive guaiac stool. He has had 2 PET scans - last one in may 2022 with no disease. He was seen by his oncologist recently who ordered labs and had a drop in hb and noted high blood sugar. He was scheduled to have his immunotherapy at the visit but it was rescheduled. On admission - started on IV protonix, IVF, h/h monitoring. GI consulted. Underwent EGD 12/28/22. No active bleeding site noted. o/e - Pleasant, comfortable in bed. AAOx3; Heart - regular; No respiratory distress; a/p GI bleed -s/p EGD - no active bleeding. Atypical tissue in lower esophagus/stomach +. Likely cause of bleeding. -repeat EGD for esophageal tumor tissue biopsy done today -Noted non bleeding duodenal ulcer. -continue PPI, IVF, h/h monitoring. Transfuse for acute hemorrhage of hb <7. -continue clear liquids -If not bleed overnight and h/h stable in am - will then d/c home. Esophageal Ca- was in remission per PET in may 2022. Had been getting immunotherapy. Had EGD for biopsy this am Chest pain - neg trop. no ST T changes on EKG. likely MSK related. follow. TANNER on CKD -improving with IV hydration. follow bmp DM - on SSI, lantus HTN/HLD- holding lisinopril and statin d/t GI bleed. BP stable SCDs, Did receive a dose of lovenox today Subjective 77 yo male with a past medical history of esophageal cancer on immunotherapy, hypertension, CKD stage 3, hyperlipidemia, type 2 diabetes presenting with chest pain. 12/29: Heath is feeling somewhat better today. An EGD is scheduled for today - he is anxious about what a biopsy may show. He is not sleeping very well while in the hospital. Overnight, he occasionally felt the same chest discomfort. Review of Systems Review of Systems: All systems reviewed & are unremarkable except as noted in HPI & below Physical Exam Physical Exam: General: Well appearing 77 y.o. male in no acute distress. Alert and oriented to person, place, and time. Heart: Heart rate regular. Normal rhythm. No murmurs, rubs, or gallops auscultated. Lungs: Non-labored breathing. Lungs clear to auscultation bilaterally. Abdomen: Normoactive bowel sounds, tenderness to left upper quadrant with palpation Extremities: No peripheral edema bilaterally Neurologic: No focal neurologic deficits Psychiatric: Normal mood and affect Results & Data Results & Data ([facility]) Vital Signs (Past 12 Hours) Vital Signs Temp Pulse Pulse Resp BP Pulse Ox O2 Del Method 12/29/22 07:32 36.6 C 63 18 114/73 96 Room Air 12/29/22 07:14 65 12/29/22 04:00 36.7 C 67 20 126/74 96 Room Air 12/28/22 22:00 72 12/28/22 22:48 36.9 C 66 18 115/66 95 Room Air (2) Esophageal cancer Malignant neoplasm of esophagus location: unspecified location Qualified Code(s): C15.9 - Malignant neoplasm of esophagus, unspecified
[2022-12-29 16:20] LABS: Hematocrit (blood only) 24.4 % (42.0-52.0)
[2022-12-29 22:41] LABS: Hemoglobin 7.8 g/dl (14.0-18.0)
[2022-12-30] MEDS: PANTOprazole 40 MG in DEXTROSE 5% 100 ML IV SCH ×2 (02:22→08:24)
[2022-12-30 04:08] LABS: Hematocrit (blood only) 23.9 % (42.0-52.0); Hemoglobin 7.8 g/dl (14.0-18.0)
[2022-12-30] MEDS: LANTUS PER UNIT CHARGE SQ SCH (08:30)
[2022-12-30] MEDS: INSULIN ASPART PER UNIT SC SCH ×2 (08:30→12:05)
[2022-12-30] MEDS ORDERED: SUCRALFATE 1 GM/10 ML UDC PO SCH (10:15)
--- NOTE | 2022-12-30 11:30 | Discharge Summary ---
Date of Service December 30, 2022 Admission HPI Per Admitting Provider 77 yo M with PMH HTN, esophageal cancer on chemotherapy, CKD3, HLD, DM2 presenting with chest pain. Pt reports onset of chest pain about 4 days prior- middle and left side of chest, substernal, dull, moderate severity, no radiation elsewhere, resolved after few minutes. This would continue to occur intermittently since. This past evening he did not notice resolution after a few minutes as usual and came to ED. Pt arrived to ER hemodynamically stable, though later BP dropped to 100s/50s. Initial labs with Hgb 8.5, Cr 2.09. CBC, BMP, PT/INR, troponin, CXR otherwise unremarkable. EKG without acute ST change. He did have melanotic stool that was FOBT+ in ER. Administered aspirin and nitroglycerin for chest pain which resolved, then given NSS bolus/maintenance + pantoprazole infusion for presumed GI bleed. On my evaluation, pt reports chest pain at 3/10. He denies any abdominal pain. Otherwise feeling well without acute complaint. Admission Exam Per Admitting Provider General: tired-appearing elderly male, no acute distress HEENT: dry mucous membranes, PERRLA, EOMI, no lymphadenopathy or JVD, clear pharynx CV: RRR, normal S1 and S2, no murmurs Resp: CTAB, unlabored respirations Abd: soft, NT, ND, no guarding or rebound Neuro: AOx3, no focal motor or sensory deficits Skin: no rashes, warm and dry, mild central pallor Ext: no peripheral edema, pedal pulses intact b/l, no cyanosis Principal Diagnosis GI Bleed Discharge Exam Constitutional WD/WN, vitals as above Eyes Anicteric sclera ENMT Moist mucous membranes Respiratory normal respiratory effort, lungs clear to auscultation Cardiovascular RRR, no murmur, no edema Gastrointestinal (Abdomen) normal bowel sounds, soft, nontender, no hepatosplenomegaly Skin no rashes, warm and dry Psychiatric A+Ox3, euthymic affect Discharge Data Allergies Allergy/AdvReac Type Severity Reaction Status Date / Time niacin Allergy Intermediate flushing Verified 12/29/22 12:05 gemfibrozil Allergy Unknown unknown Verified 12/29/22 12:05 patient does not remember pravastatin Allergy Unknown patient Verified 12/29/22 12:05 does not remember simvastatin [From Zocor] Allergy Unknown patient Verified 12/29/22 12:05 does not remember codeine AdvReac Intermediate HYPERACTIVI Verified 12/29/22 12:05 TY Consultations 12/28/22 02:00 ED Decision to Admit Stat 12/28/22 04:16 Consult Gastroenterology Routine Chest X-Ray 12/28/22 00:48 SINGLE VIEW CHEST CLINICAL HISTORY: Atypical chest pain. FINDINGS: An AP, portable, upright chest radiograph is compared to study dated 12/04/2022. Correlation is made with PET CT dated 07/27/2021. A left subclavian central venous infusion port is unchanged in position. The heart is enlarged noting atherosclerotic calcification of the thoracic aorta. The pulmonary vasculature is noncongested. Scarring/atelectasis is noted at both lung bases. No airspace consolidation or large pleural effusion is identified. No pneumothorax is seen. The skeletal structures are osteopenic. There is chronic posttraumatic deformity of the right clavicle. There are chronic left-sided rib fractures. IMPRESSION: Cardiomegaly with no acute cardiopulmonary abnormality identified. ACT 112: Negative or not required by law. Electronically signed by: Mars Beebe M.D. 12/28/2022 7:42 AM 12/30/22 12/30/22 12/29/22 Range/Units 07:33 03:45 22:29 Hgb 7.8 L 7.8 L (14.0-18.0) g/dl Hct 23.9 L 24.0 L (42.0-52.0) % POC Glucose 193 H (70-99) mg/dl 12/29/22 12/29/22 12/29/22 Range/Units 20:16 16:21 16:03 Hgb 8.0 L (14.0-18.0) g/dl Hct 24.4 L (42.0-52.0) % POC Glucose 140 H 123 H (70-99) mg/dl 12/29/22 Range/Units 11:45 Hgb (14.0-18.0) g/dl Hct (42.0-52.0) % POC Glucose 131 H (70-99) mg/dl Procedures Performed Operation Date: 12/29/22 17:15 Actual Procedures p EGD Biopsy Cytology - Nohemi M. Dexter, DO Hospital Course (1) Gastrointestinal hemorrhage: Heath is a 77 yo male with a past medical history of esophageal cancer on immunotherapy, hypertension, CKD stage 3, hyperlipidemia, and type 2 diabetes presenting with chest pain and GI bleed. Concern for GI Bleed/History of Esophageal Cancer Mr. Austin presented with BP 100s/50s and Hgb 8.5 on admission with FOBT+ melena, baseline Hgb appears around 11. His hemoglobin dipped slightly further to mid 7's. EGD was completed on 12/28 and found no evidence of active bleed but atypical tissue present at lower esophagus and stomach. His most recent PET scan was "clear" in May 2022. EGD repeated and biopsy completed on 12/29 after discussion with Mr. Austin's oncologist (Dr. Linh Pruitt). A nonbleeding duodenal ulcer also noted on EGD. Patient was given IV Protonix and restarted on clear liquids post EGD. Hemoglobin remained stable at mid/upper 7's for >24 hours post EGD. Per GI rec's, patient discharged on PPI 40mg BID and Liquid Carafate BID. Chest Pain EKG on admission without ST change, negative troponin. Possibly reflux related, may also be driven by anemia. Patient improved symptomatically and had no chest pain on day of discharge. TANNER Cr 2.09 on admission, decreased to 1.95 later. Likely due to volume loss/dehy dration. All other home medications were continued at time of discharge. (2) Esophageal cancer: (3) Chest pain: (4) Acute kidney injury superimposed on chronic kidney disease: (5) DM (diabetes mellitus): (6) HTN (hypertension): (7) Hyperlipidemia: Total Time Total Time Spent Total Time Spent (In Minutes): . Discharge Plan Discharge Items Patient Disposition: Home - Self-Care Reason For Visit: GI BLEED Discharge Diagnosis: GI Bleed Activity: Per Instructions section Non-emergency contact: Primary Care Provider and Oncologist Call non-emergency contact if: you have any medication questions, your pain is worsening and your temperature is above 101.5 Follow-up/Referrals: Hortencia Leal PA-C [Primary Care Provider] - (Please schedule hospital discharge follow up appointment within 1 week) Diet: Regular and Carb Consistent or DM2 Addtl Attending Provider Instructions: You were admitted to the hospital for concern of GI bleed due to a significant drop in hemoglobin. You underwent EGD's on 12/28 and 12/29 in addition to a biopsy on 12/29, due to concern of new findings of malignancy. We monitored your hemoglobin throughout your admission and no active bleeds were identified during the scopes. The biopsy results will likely take several days, this information will be provided to your oncologist, Dr. Melo. A discharge summary will be sent to your primary care physician to ensure continuity of care. Follow-up appointments: Make a follow-up appointment with your PCP within the next week. It is very important that you follow up with them shortly after discharge from the hospital. Medications: Your medication list has been reviewed and reconciled upon discharge to ensure accuracy and continuity of care. An updated list of all your medications is included with your hospital discharge paperwork. Please review this list closely, and make note of any changes. We sent a two new medications to your pharmacy. * Omeprazole 40mg twice daily * Sucralfate 10mL twice daily No other intentional changes were made to your medications. CONTACT YOUR PRIMARY CARE PROVIDER if you experience any of the following: Dizziness Weakness Difficulty following your treatment plan, or difficulty taking medications CALL 911 OR GO TO THE EMERGENCY DEPARTMENT if you experience any of the following: Sudden, severe abdominal pain or nausea/vomiting Severe chest pain, or chest pain that radiates (moves) to your jaw or arm Sudden, severe shortness of breath or difficulty breathing Thank you for allowing us to participate in your care. Pending Studies at Discharge: Yes Stand-Alone Forms: My [facility], Smoking Cessation Medications and DC Order Prescriptions: New sucralfate 100 mg/mL Suspension 1 g PO BID 14 Days Qty: 280 0RF omeprazole 40 mg capsule,delayed release(DR/EC) 40 mg PO BID 14 Days Qty: 28 0RF Continued meclizine 25 mg tablet 12.5 mg PO BID PRN (Reason: Vertigo) ascorbate calcium (vitamin C) 500 mg tablet 500 mg PO DAILY cholecalciferol (vitamin D3) 25 mcg (1,000 unit) capsule 25 mcg PO DAILY metformin 500 mg tablet 500 mg PO BID polyethylene glycol 3350 [Miralax] 17 gram/dose powder 17 g PO DAILY ondansetron HCl 8 mg tablet 8 mg PO Q8H PRN (Reason: Nausea) alogliptin 12.5 mg tablet 12.5 mg PO DAILY prochlorperazine maleate [Compazine] 10 mg tablet 10 mg PO Q6 PRN (Reason: Nausea) cyanocobalamin (vitamin B-12) 1,000 mcg tablet 500 mcg PO DAILY lisinopril 20 mg Tablet 20 mg PO BID aspirin 81 mg Tablet,Delayed Release (Dr/Ec) 81 mg PO HS atorvastatin 20 mg tablet 40 mg PO HS Discharge Orders: Discharge Order (Routine); Ordered 12/30/22 Ordered By: Leandra Birch Admission Data Admit Date/Time: 12/28/22 03:00 Attending Provider: Jewels Hernandes Admit Provider: Teodoro Klein Primary Care Provider: Hortencia Leal Other Providers: Guido Jang ; Cristi Jin ; Magno Parrish ; Trish Wilkinson ; Lata Anna ; Venita Hubbard ; Amarilis Sheffield ; Shon Curiel ; Tam Perdomo ; Leigh Carl ; Roz Tracey ; Alexander Sanchez ; Angela Herbert ; Tana Chapman ; Angelita Pendleton ; Nena Lowery ; Brendan Gomez ; Arturo Babcock ; Barrington Kennedy ; Nohemi Renteria ; Ross Nur Jr ; [facility] Other Interventions: Discharge Summary Assessment (RN) Last Done: 12/29/22 13:56 Supervising Physician Co-Signing Physician Notes Resident Physician Supervision Note: I independently interviewed and examined the patient and verified the rivera history and physical, reviewed labs and image studies and agree with resident findings and care plan.
[2022-12-30 11:45] VITALS: BP 124/75; PULSE 63; TEMP 97.5; O2SAT 95
[2022-12-30] MEDS ORDERED: HEPARIN 100 UNIT/ML 5ML FLUSH FLUSH PRN (13:26)
--- NOTE | 2023-01-02 13:44 | Coding Query ---
PATHOLOGY To promote full compliance with coding requirements relating to patient care, physician participation is requested in all cases of tire worker uncertainty. Please assist us with the question(s) below: Please review the Pathology report and please document any relevant diagnosis(es) below: Diagnosis(es): Pathology reviewed and discussed with patient. Adenocarcinoma of stomach/esophagus. Thank you Teresa HERNANDEZ
== END 2022-12-30 14:39 | disposition home or self-care (01) | DRG 375 ==
LOC: ED 00:37 → 2N 03:00 → SUATTDRO 03:00 → 2N 04:16
DX: K26.9 Duodenal ulcer, unspecified as acute or chronic, without hemorrhage or perforation; Z79.899 Other long term (current) drug therapy; Z91.81 History of falling; E78.5 Hyperlipidemia, unspecified; K21.9 Gastro-esophageal reflux disease without esophagitis; I12.9 Hypertensive chronic kidney disease with stage 1 through stage 4 chronic kidney disease, or unspecified chronic kidney disease; Z82.49 Family history of ischemic heart disease and other diseases of the circulatory system; Z88.5 Allergy status to narcotic agent; Z79.84 Long term (current) use of oral hypoglycemic drugs; D62 Acute posthemorrhagic anemia; N18.30 Chronic kidney disease, stage 3 unspecified; Z88.8 Allergy status to other drugs, medicaments and biological substances; E86.0 Dehydration; C15.9 Malignant neoplasm of esophagus, unspecified; R07.89 Other chest pain; N17.9 Acute kidney failure, unspecified; Z85.46 Personal history of malignant neoplasm of prostate; E11.22 Type 2 diabetes mellitus with diabetic chronic kidney disease; Z79.82 Long term (current) use of aspirin; K92.1 Melena; C78.89 Secondary malignant neoplasm of other digestive organs

== ENCOUNTER 2023-06-20 19:49 | Observation (INO) ==
[2023-06-20 20:35] LABS: Basophils # (auto) 0.02 K/uL (0.00-0.20); Basophils % (auto) 0.3 %; Eosinophils # (auto) 0.04 K/uL (0.00-0.50); Eosinophils % (auto) 0.5 %; Hematocrit (blood only) 33.7 % (42.0-52.0); Hemoglobin 10.3 g/dl (14.0-18.0); Immature Granulocytes # (auto) 0.03 K/uL (0.01-0.20); Immature Granulocytes % (auto) 0.4 %; Lymphocytes # (auto) 1.36 K/uL (1.20-3.40); Lymphocytes % (auto) 18.1 %; Mean Corpuscular Hemoglobin 27.1 pg (25.0-34.0); Mean Corpuscular Hgb Conc 30.6 g/dL (32.0-36.0); Mean Corpuscular Volume 88.7 fL (80.0-100.0); Mean Platelet Volume 10.1 fL (9.4-12.4); Neutrophils # (auto) 5.48 K/uL (1.40-6.50); Neutrophils % (auto) 72.7 %; Platelet Count 205 K/uL (130-400); RDW Coefficient of Variation 20.1 % (11.5-14.5); RDW Standard Deviation 64.1 fL (36.4-46.3); White Blood Count 7.53 K/ul (4.8-10.8)
[2023-06-20 20:50] LABS: Albumin Globulin Ratio 1.4 (0.9-2); Albumin Level 3.9 gm/dl (3.4-5.0); BUN Creatinine Ratio 12.8 (10-20); Bilirubin,Total 0.7 mg/dl (0.2-1.0); Calcium 9.5 mg/dl (8.6-10.3); Creatinine Clr Calc Pharmacy 23.8 ml/min; Est GFR (African American) 31.3 ml/min; Globulin 2.7 gm/dl (2.5-4.0); Potassium 4.5 mmol/L (3.5-5.1); Total Protein 6.6 gm/dl (6.0-8.3)
[2023-06-20 21:00] LABS: Ovalocytes 1+
[2023-06-20] MEDS ORDERED: ONDANSETRON INJ 2 MG/ML 2 ML VIAL IV STA (22:08)
[2023-06-20] MEDS ORDERED: MoRPHine SULFATE 4 MG/ML 1 ML CARP\\VIAL IV PRN (22:08)
--- NOTE | 2023-06-20 22:13 | Emergency Department Note ---
History of Present Illness General Chief complaint: Nausea Stated complaint: NAUSEOUS Time Seen by Provider: 06/20/23 22:00 History of Present Illness Maximum Pain Intensity: 8 This is a 77-year-old male presenting to the emergency department for evaluation of abdominal pain and nausea. Patient's symptoms have worsened over the past 1 day and he had difficulty sleeping last night because of them. Patient has history of esophageal cancer. He was seen and evaluated in this ER 2 days ago for left flank pain, but this pain has resolved, and his discomfort seems different than previous. He has not had fevers or chills. He is with decreased appetite. His abdomen hurts when he presses on it. He is on a chemotherapy treatment and this is a "break week". He feels like he is using the bathroom as normal. Appetite is diminished. He has not been drinking well. He rates his discomfort an 8/10. Home Medications Medication Instructions Recorded Confirmed Type meclizine 25 mg tablet 25 mg PO BID PRN Vertigo 08/09/21 06/20/23 History prochlorperazine maleate 10 mg 10 mg PO Q6 PRN Nausea 11/17/21 06/20/23 History tablet (Compazine) ondansetron HCl 8 mg tablet 8 mg PO Q8H PRN Nausea 02/14/22 06/20/23 History paclitaxel 6 mg/mL See Rx Instructions .Route .COMPLEX 01/18/23 06/20/23 History concentrate,intravenous ramucirumab 10 mg/mL intravenous See Rx Instructions .Route .COMPLEX 01/18/23 06/20/23 History solution (Cyramza) promethazine 25 mg tablet 25 mg PO Q6H PRN nausea and 05/04/23 06/20/23 Rx vomiting #20 tabs atorvastatin 40 mg tablet (Lipitor) 40 mg PO HS 06/20/23 06/20/23 History cholecalciferol (vitamin D3) 50 50 mcg PO DAILY 06/20/23 06/20/23 History mcg (2,000 unit) capsule (Vitamin D3) cyanocobalamin (vitamin B-12) 100 100 mcg PO DAILY 06/20/23 06/20/23 History mcg tablet (Vitamin B-12) dexamethasone 4 mg tablet 12 mg PO DIRECTED PRN PER 06/20/23 06/20/23 History ORDERS FOR PACLITAXEL dronabinol 2.5 mg capsule 2.5 mg PO BID 06/20/23 06/20/23 History Allergies Allergy/AdvReac Type Severity Reaction Status Date / Time niacin Allergy Intermediate flushing Verified 06/20/23 21:24 gemfibrozil Allergy Unknown unknown Verified 06/20/23 21:24 patient does not remember pravastatin Allergy Unknown patient Verified 06/20/23 21:24 does not remember simvastatin [From Zocor] Allergy Unknown patient Verified 06/20/23 21:24 does not remember codeine AdvReac Intermediate HYPERACTIVI Verified 06/20/23 21:24 TY Past Med/Surg History Medical History Diabetes HTN (hypertension) Kidney stones Mixed conductive and sensorineural hearing loss of left ear with restricted hearing of right ear Sensorineural hearing loss of both ears Surgical History H/O hernia repair H/O prostatectomy History of knee replacement S/P tonsillectomy Family History Father Hypertension Heart disease Cancer Mother Cancer Hypertension Other No family history of adverse response to anesthesia No family history of bleeding disorder No pertinent family history Social History Smoking Status: Never smoker Second Hand Exposure: No; Do You Dip or Chew Tobacco: No; Hx Alcohol Use: No Hx Substance Use: No Preferred Language: Tamazight Communication Ability: Effective 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 Beliefs That Will Affect Care: None Current Living Situation: Family Current Living Situation Comment: lives at home with sonLavon Feels Safe at Home: Yes Assistive Devices: None Review of Systems A total of 10 systems reviewed and were otherwise negative Physical Exam Vital Signs Vital Signs - 24 hr 06/20/23 19:55 06/20/23 21:05 06/20/23 21:10 Temperature 37.2 C Temperature Source Oral Pulse Rate 91 H 82 79 Pulse Rate from SpO2 Sensor Respiratory Rate 18 24 22 Respiratory Effort / Characteristics Non-Labored Spontaneous Respiratory Depth Normal Respiratory Pattern Regular Blood Pressure 154/86 H Blood Pressure Mean 108 Blood Pressure Position Sitting Pulse Oximetry 98 Oxygen Delivery Method Room Air Sepsis Recent Fever Within 48 Hours No Sepsis New/Unexplained Change in Mental Status N/A Sepsis Action Taken by Nursing No Action Required 06/20/23 21:05 06/20/23 21:13 06/20/23 21:14 Temperature Temperature Source Pulse Rate 82 81 Pulse Rate from SpO2 Sensor Respiratory Rate 21 Respiratory Effort / Characteristics Respiratory Depth Respiratory Pattern Blood Pressure 138/92 Blood Pressure Mean 114 Blood Pressure Position Pulse Oximetry Oxygen Delivery Method Sepsis Recent Fever Within 48 Hours Sepsis New/Unexplained Change in Mental Status Sepsis Action Taken by Nursing 06/20/23 21:14 06/20/23 21:20 06/20/23 21:30 Temperature Temperature Source Pulse Rate 78 78 Pulse Rate from SpO2 Sensor Respiratory Rate 22 15 Respiratory Effort / Characteristics Respiratory Depth Respiratory Pattern Blood Pressure 150/88 H Blood Pressure Mean 123 Blood Pressure Position Pulse Oximetry Oxygen Delivery Method Sepsis Recent Fever Within 48 Hours Sepsis New/Unexplained Change in Mental Status Sepsis Action Taken by Nursing 06/20/23 21:30 06/20/23 23:00 06/21/23 00:00 Temperature Temperature Source Pulse Rate 76 65 58 L Pulse Rate from SpO2 Sensor 65 Respiratory Rate 15 19 19 Respiratory Effort / Characteristics Respiratory Depth Respiratory Pattern Blood Pressure 129/76 123/72 Blood Pressure Mean 93 89 Blood Pressure Position Pulse Oximetry 95 96 Oxygen Delivery Method Room Air Room Air Sepsis Recent Fever Within 48 Hours Sepsis New/Unexplained Change in Mental Status Sepsis Action Taken by Nursing 06/21/23 01:12 06/21/23 01:48 Temperature Temperature Source Pulse Rate 75 57 L Pulse Rate from SpO2 Sensor 74 Respiratory Rate 20 Respiratory Effort / Characteristics Respiratory Depth Respiratory Pattern Blood Pressure 158/87 H Blood Pressure Mean 110 Blood Pressure Position Pulse Oximetry 98 Oxygen Delivery Method Room Air Sepsis Recent Fever Within 48 Hours Sepsis New/Unexplained Change in Mental Status Sepsis Action Taken by Nursing VITALS: Vitals are noted on the nurse's note and reviewed by myself. Vital signs stable. GENERAL: Well-developed, well-nourished, white male, who is in no acute distress and resting comfortably. Patient is cooperative with the examination. HEAD: Normocephalic atraumatic. NECK: Supple without nuchal rigidity. No lymphadenopathy. No thyromegaly. Cervical spine is nontender. HEART: Regular rate and rhythm without murmurs gallops or rubs. LUNGS: Clear to auscultation bilaterally without wheezes, rales or rhonchi. No retractions or accessory muscle use. ABDOMEN: Positive normal bowel sounds x 4. Soft with tenderness in both the right lower and left lower quadrants. No rebound or guarding. No CVA tendernes s. No rash. MUSCULOSKELETAL: No muscle atrophy, erythema, or edema noted. Full range of motion in all extremities. NEURO: Patient was alert and oriented to person place and time. CN II through XII grossly intact. Course Administered Medications Discontinued Medications Acetaminophen (Acetaminophen 325 Mg Tab) 650 mg PO Q4H PRN PRN Reason: pain/fever Stop: 07/21/23 02:50 Last Admin: 06/21/23 10:50 Dose: 650 mg Documented By: MIKKI Atorvastatin Calcium (Atorvastatin 40 Mg Tab) 40 mg PO HS MARIE Stop: 07/21/23 20:59 Last Admin: 06/21/23 22:37 Dose: 40 mg Documented By: MICHAEL Dronabinol (Dronabinol 2.5 Mg Cap) 2.5 mg PO BID MARIE Stop: 07/21/23 08:59 Last Admin: 06/22/23 08:11 Dose: 2.5 mg Documented By: Admin: 06/21/23 22:43 Dose: 2.5 mg Documented By: Admin: 06/21/23 08:23 Dose: 2.5 mg Documented By: JOSIAH Enoxaparin Sodium (Enoxaparin Inj 30 Mg/0.3 Ml Syr) [facility] [place] Stop: 07/21/23 09:29 Last Admin: 06/22/23 08:11 Dose: 30 mg Documented By: Admin: 06/21/23 10:51 Dose: 30 mg Documented By: MIKKI Famotidine (Famotidine 40 Mg Tablet) 40 mg PO QAM [facility] Stop: 07/21/23 08:59 Last Admin: 06/22/23 08:11 Dose: 40 mg Documented By: Admin: 06/21/23 08:23 Dose: 40 mg Documented By: JOSIAH Sodium Chloride (Nss 1000ml) 1,000 mls @ 999 mls/hr IV .Q1H1M MARIE Stop: 06/20/23 23:15 Last Infusion: 06/21/23 00:12 Dose: 0 mls/hr Documented By: Admin: 06/20/23 22:20 Dose: 999 mls/hr Documented By: BERT Sodium Chloride (Nss 1000ml) 1,000 mls @ 999 mls/hr IV .Q1H1M MARIE Stop: 06/21/23 01:45 Last Infusion: 06/21/23 02:18 Dose: 0 mls/hr Documented By: Admin: 06/21/23 01:15 Dose: 999 mls/hr Documented By: MARIE Lactated Ringer's (Lr) 1,000 mls @ 125 mls/hr IV .Q8H MARIE Stop: 06/22/23 10:50 Last Admin: 06/22/23 06:45 Dose: 125 mls/hr Documented By: Infusion: 06/22/23 06:36 Dose: 125 mls/hr Documented By: Admin: 06/21/23 22:36 Dose: 125 mls/hr Documented By: Infusion: 06/21/23 20:54 Dose: 125 mls/hr Documented By: Admin: 06/21/23 12:54 Dose: 125 mls/hr Documented By: Infusion: 06/21/23 12:42 Dose: 125 mls/hr Documented By: Admin: 06/21/23 04:42 Dose: 125 mls/hr Documented By: MANI Insulin Aspart (Insulin Aspart Per Unit Charge) 0 units SC ACHS MARIE Stop: 07/21/23 07:29 Last Admin: 06/22/23 12:33 Dose: Not Given Documented By: Admin: 06/22/23 08:12 Dose: Not Given Documented By: Admin: 06/21/23 21:01 Dose: Not Given Documented By: Admin: 06/21/23 17:35 Dose: Not Given Documented By: Admin: 06/21/23 12:10 Dose: Not Given Documented By: Admin: 06/21/23 08:09 Dose: Not Given Documented By: JOSIAH Insulin Glargine (Lantus Per Unit Charge) 12 units SQ BID [facility] Stop: 07/21/23 08:59 Last Admin: 06/22/23 09:41 Dose: 6 units Documented By: JOSIAH Co-signed By: MIKKI Admin: 06/21/23 21:01 Dose: Not Given Documented By: Admin: 06/21/23 08:55 Dose: 6 units Documented By: JOSIAH Co-signed By: MIKKI Morphine Sulfate (Morphine Sulfate 4 Mg/Ml 1 Ml Carp\\Vial) 4 mg IV Q30M PRN PRN Reason: Pain Stop: 07/04/23 22:07 Last Admin: 06/20/23 22:20 Dose: 4 mg Documented By: BERT Ondansetron HCl (Ondansetron Inj 2 Mg/Ml 2 Ml Vial) 4 mg IV NOW STA Stop: 06/20/23 22:09 Last Admin: 06/20/23 22:20 Dose: 4 mg Documented By: BERT Ondansetron HCl (Ondansetron Inj 2 Mg/Ml 2 Ml Vial) 4 mg IV Q6H PRN PRN Reason: Nausea Stop: 07/21/23 02:50 Last Admin: 06/21/23 23:26 Dose: 4 mg Documented By: PRATEEK Medical Decision Making Differential Diagnosis Differential diagnosis: Etiologies such as biliary colic, cholecystitis, hepatitis, pancreatitis, cardiac disease, pancreatitis, gastritis, peptic ulcer disease, appendicitis, cystitis, diverticulitis, mesenteric ischemia, inflammatory bowel disease, ileus, bowel obstruction, testicular/adnexal torsion, aortic pathology, shingles, as well as others were considered Laboratory Data 06/20/23 20:12 06/20/23 20:12 Lab Results 06/20/23 06/20/23 06/21/23 Range/Units 20:12 20:12 01:10 WBC 7.53 (4.8-10.8) K/ul RBC 3.80 L (4.70-6.10) M/uL Hgb 10.3 L (14.0-18.0) g/dl Hct 33.7 L (42.0-52.0) % MCV 88.7 (80.0-100.0) fL MCH 27.1 (25.0-34.0) pg MCHC 30.6 L (32.0-36.0) g/dL RDW Std Deviation 64.1 H (36.4-46.3) fL RDW Coeff of Katarzyna 20.1 H (11.5-14.5) % Plt Count 205 (130-400) K/uL MPV 10.1 (9.4-12.4) fL Immature Gran % (Auto) 0.4 % Neut % (Auto) 72.7 % Lymph % (Auto) 18.1 % [place] % (Auto) 8.0 % Eos % (Auto) 0.5 % Baso % (Auto) 0.3 % Neut # (Auto) 5.48 (1.40-6.50) K/uL Lymph # (Auto) 1.36 (1.20-3.40) K/uL [place] # (Auto) 0.60 H (0.11-0.59) K/uL Eos # (Auto) 0.04 (0.00-0.50) K/uL Baso # (Auto) 0.02 (0.00-0.20) K/uL Immature Gran # (Auto) 0.03 (0.01-0.20) K/uL Ovalocytes 1+ Sodium 136 (136-145) mmol/L Potassium 4.5 (3.5-5.1) mmol/L Chloride 103 (98-107) mmol/L Carbon Dioxide 23 (21-32) mmol/L Anion Gap 10 (3-11) BUN 29 H (6-23) mg/dl Creatinine 2.26 H (0.6-1.4) mg/dl Est Cr Clr Drug Dosing 23.8 ml/min Est GFR ( Amer) 31.3 ml/min Est GFR (Non-Af Amer) 27.0 ml/min BUN/Creatinine Ratio 12.8 (10-20) Glucose 157 H (70-99(Fasting)) mg/dl Calcium 9.5 (8.6-10.3) mg/dl Total Bilirubin 0.7 (0.2-1.0) mg/dl AST 18 (13-39) U/L ALT 7 (7-52) U/L Alkaline Phosphatase 59 (34-104) U/L Total Protein 6.6 (6.0-8.3) gm/dl Albumin 3.9 (3.4-5.0) gm/dl Globulin 2.7 (2.5-4.0) gm/dl Albumin/Globulin Ratio 1.4 (0.9-2) Lipase 15 (11-82) U/L Urine Color Yellow Urine Appearance Clear (Clear) Urine pH 5.0 (4.5-7.5) Ur Specific [place] 1.020 (1.000-1.030) Urine Protein 1+ H (Negative) Urine Glucose (UA) Negative (Negative) Urine Ketones Trace H (Negative) Urine Blood Negative (Negative) Urine Nitrite Negative (Negative) Urine Bilirubin Negative (Negative) Urine Urobilinogen Negative (Negative) Ur Leukocyte Esterase Negative (Negative) Urine WBC (Auto) 1-5 (0-5) /hpf Urine RBC (Auto) 0-4 (0-4) /hpf U Hyaline Cast (Auto) 5-10 H (0-5) /lpf U Epithel Cells (Auto) 10-20 H (0-5) /lpf Urine Bacteria (Auto) Negative (Negative) Imaging Data Radiologist's Impression: Abdomen/Pelvis CT 06/20/23 22:08 Exam(s): CT ABDOMEN + PELVIS Without Contrast EXAM: CT Abdomen and Pelvis Without Intravenous Contrast CLINICAL HISTORY: Reason for exam: low abd pain. Cancer patient. TANNER. TECHNIQUE: Axial computed tomography images of the abdomen and pelvis without intravenous contrast. CTDI is 29.02 mGy and DLP is 1321.85 mGy-cm. Automated exposure control was utilized for the study. A dose lowering technique was utilized adhering to the principles of ALARA. COMPARISON: No relevant prior studies available. FINDINGS: Lung bases: Unremarkable. No mass. No consolidation. ABDOMEN: Liver: Unremarkable. No focal hepatic lesion. Gallbladder and bile ducts: Unremarkable. No calcified stones. No ductal dilation. Pancreas: Atrophy of the pancreas. No ductal dilation. Spleen: Unremarkable. No splenomegaly. Adrenals: Unremarkable. No mass. Kidneys and ureters: RIGHT renal cyst measures 7.6 x 6.5 cm. No obstructing stones. No hydronephrosis. Hyperdense RIGHT upper pole renal cyst measures 1.3 cm, and may contain hemorrhagic or proteinaceous components. Stomach and bowel: Unremarkable. No acute diverticulitis. No small bowel obstruction. No free intraperitoneal air. PELVIS: Appendix: No findings to suggest acute appendicitis. Bladder: Unremarkable. No stones. Reproductive: Normal appearance of the prostate gland. ABDOMEN and PELVIS: Intraperitoneal space: Unremarkable. No free air. No significant fluid collection. Bones/joints: Degenerative changes of the spine. No acute fracture. No dislocation. Soft tissues: Unremarkable. Vasculature: Atherosclerotic changes of the aorta. No abdominal aortic aneurysm. Lymph nodes: Unremarkable. No enlarged lymph nodes. IMPRESSION: No acute diverticulitis. No small bowel obstruction. No free intraperitoneal air. No hydronephrosis or nephrolithiasis. Hyperdense RIGHT upper pole renal cyst measures 1.3 cm, and may contain hemorrhagic or proteinaceous components. Electronically signed by: Valentin Morocho MD 06/20/23 23:34 PM MDM Narrative Physical exam and history were performed. Nursing notes, EMR, and Medication List were personally reviewed. No social concerns were identified as barriers to patients care. Patient appears to have abdominal pain bringing him to the ER patient was seen during a period of very high ER volume and acuity with extended wait times. Nu rsing protocol order have been performed and some of these are available for my review at the time of patient encounter. Patient's blood work is as above and was reviewed. He does not have a signifi cantly elevated white blood cell count or gross anemia. He does have an increase in his creatinine from a few days ago, and has not been eating well the past few days. CT scan of the abdomen and pelvis was performed as his pain is new from a few days ago, and different. CT scan does not show any obvious acute process to explain his symptoms. Transaminases are not diagnostic. Patient was hydrated with 2 L normal saline while here in the ER. Urine was collected and was without acute evidence of infection. On reevaluation the patient does not feel comfortable going home. Case was discussed with the on-call hospitalist team who agreed to evaluate the patient here in the ER. Please see their dictation for further patient course, plan, disposition. The chart was completed utilizing [employer] fusion Speech Voice Recognition Software. Grammatical errors, random word insertions, pronoun errors, and incomplete sentences are an occasional consequence of this system due to software limitations, ambient noise, and hardware issues. Any formal questions or concerns about the content, text, or information contained within the body of this dictation should be directly addressed to the provider for clarification. . Impression & Plan Dehydration, Abdominal pain, Esophageal cancer Discharge Plan Visit Data Chief Complaint: Nausea Stated Complaint: NAUSEOUS ED Provider: Ronny Yu ED Midlevel Provider: Jonh Sheffield Discharge Problem: Dehydration, Abdominal pain, Esophageal cancer Patient Disposition: Admitted As Inpatient Discharge Instructions Interventions: ED Discharge Assessment Last Done: 06/21/23 02:39 Addendum June 23, 2023 02:10 HPI: The patient is a 77-year-old gentleman with a past medical history of hypertension, diabetes, history of esophageal cancer who presents to the emergency department for evaluation of abdominal pain and nausea that is worsened over the past 24 hours in the setting of being seen in this emergency department 2 days ago for left flank pain where he had an unremarkable CT of his abdomen pelvis. The patient is undergoing chemotherapy but has off of this week. He has had poor appetite and oral intake. A/P: WBC and platelets within normal limits. H/H stable from 2 days ago and improved from prior. Creatinine 2.26 approximate department values though increased from 2 days ago. Electrolytes LFTs unremarkable. Lipase is not elevated. UA without convincing evidence of infection. CT of the abdomen pelvis was repeated and did not demonstrate acute findings. Complex right renal cyst is further characterized. IVF and antiemetics administered. However, the patient still felt generally weak and did not feel comfortable with discharge and outpatient follow-up. Patient was referred to the hospitalist service for admission. Further management per admitting team. I was consulted by the Advanced Practice Provider.I performed a substantive portion of the visit.This includes aspects of the HPI, MDM, diagnostic interpretations, and disposition/plan. I discussed the case with the JAYANT and agree with the findings and plan as documented in JAYANT Nettie's note.
[2023-06-20] MEDS ORDERED: SODIUM CHLORIDE 0.9% 1,000 ML IV SCH (22:15)
--- NOTE | 2023-06-20 23:35 | CT Scan Report ---
Exam(s): CT ABDOMEN + PELVIS Without Contrast EXAM: CT Abdomen and Pelvis Without Intravenous Contrast CLINICAL HISTORY: Reason for exam: low abd pain. Cancer patient. TANNER. TECHNIQUE: Axial computed tomography images of the abdomen and pelvis without intravenous contrast. CTDI is 29.02 mGy and DLP is 1321.85 mGy-cm. Automated exposure control was utilized for the study. A dose lowering technique was utilized adhering to the principles of ALARA. COMPARISON: No relevant prior studies available. FINDINGS: Lung bases: Unremarkable. No mass. No consolidation. ABDOMEN: Liver: Unremarkable. No focal hepatic lesion. Gallbladder and bile ducts: Unremarkable. No calcified stones. No ductal dilation. Pancreas: Atrophy of the pancreas. No ductal dilation. Spleen: Unremarkable. No splenomegaly. Adrenals: Unremarkable. No mass. Kidneys and ureters: RIGHT renal cyst measures 7.6 x 6.5 cm. No obstructing stones. No hydronephrosis. Hyperdense RIGHT upper pole renal cyst measures 1.3 cm, and may contain hemorrhagic or proteinaceous components. Stomach and bowel: Unremarkable. No acute diverticulitis. No small bowel obstruction. No free intraperitoneal air. PELVIS: Appendix: No findings to suggest acute appendicitis. Bladder: Unremarkable. No stones. Reproductive: Normal appearance of the prostate gland. ABDOMEN and PELVIS: Intraperitoneal space: Unremarkable. No free air. No significant fluid collection. Bones/joints: Degenerative changes of the spine. No acute fracture. No dislocation. Soft tissues: Unremarkable. Vasculature: Atherosclerotic changes of the aorta. No abdominal aortic aneurysm. Lymph nodes: Unremarkable. No enlarged lymph nodes. IMPRESSION: No acute diverticulitis. No small bowel obstruction. No free intraperitoneal air. No hydronephrosis or nephrolithiasis. Hyperdense RIGHT upper pole renal cyst measures 1.3 cm, and may contain hemorrhagic or proteinaceous components. Electronically signed by: Valentin Morocho MD 06/20/23 23:34 PM
[2023-06-21] MEDS ORDERED: SODIUM CHLORIDE 0.9% 1,000 ML IV SCH (00:45)
[2023-06-21 01:33] LABS: Appearance Urine Clear (Clear); Bacteria Urine Automated Negative (Negative); Bilirubin Urine Negative (Negative); Blood Urine Negative (Negative); Color Urine Yellow; Glucose Urine UA Negative (Negative); Ketones Urine Trace (Negative); Leukocyte Esterase Urine Negative (Negative); Nitrite Urine Negative (Negative); Protein Urine 1+ (Negative); RBC Urine Automated 0-4 /hpf (0-4); Urobilinogen Urine Negative (Negative)
--- NOTE | 2023-06-21 01:53 | History & Physical Report ---
Date of Service June 21, 2023 Assessment & Plan (1) Left sided abdominal pain: Plan: -Hgb 10.3, within recent baseline. -Nausea w/o vomiting or bowel movement changes, no tex blood in stool. -WBC 7.53, Creatinine 2.26, BUN 29. -CT A&P negative for any acute processes. -Pt has had decreased appetite and intake. -May be secondary to underlying gastric issue, possibly esophageal cancer vs chemotherapy side effects vs dehydration. -Received 2L NSS in ED, will continue on maintenance fluid LR @ 125ml/hr x4 bags to rehydrate. -Control pain with Tylenol 650mg PRN. Patient feeling slightly better with rehydration and Morphine received in ED. -Admit to med/surg (2) Esophageal cancer: Plan: -Noted, on rest week for chemotherapy treatment. (3) Renal cysts, acquired, bilateral: Plan: -Noted 1.3cm R renal cyst on CT A&P. I don't believe this to be the cause of the patient's pain. U/A negative for blood. (4) CKD (chronic kidney disease) stage 3, GFR 30-59 ml/min: Plan: -Acute worsening of kidney function. -Creatinine 2.26, BUN 29 on admission. -Baseline around 1.5-1.8 -Continue with hydration as above. (5) DM (diabetes mellitus): Plan: -Holding metformin in face of acute kidney injury. -Lantus 12U BID, SSI while inpatient. (6) HTN (hypertension): Plan: -Will hold lisinopril with acute kidney injury. BP has remained in WNL. (7) Anemia: Plan: -Hgb 10.3 on admission. Patients baseline around 9-11. -Continue to trend with AM CBC. (8) Hyperlipidemia: Plan: Continue home atorvastatin. Plan 77 year old male w/ PmHx esophageal and prostate cancer on chemotherapy, CKD3, HLD, T2DM admitted for abdominal pain and dehydration F/E/N/GI: T2DM diet. DVT Prophylaxis: SCD, can put on chemoprophylaxis if here more than 1 day. Code status: Full Dispo: Med/surg History of Present Illness Chief Complaint: abdominal pain Primary Care Provider: Hortencia Leal PA-C Heath is a 77 year old male w/ PmHx esophageal and prostate cancer on chemotherapy, CKD3, HLD, T2DM coming in to the ED for 2 days of L sided abdominal pain. Patient states that he came to the ED about 2 days prior for L sided back/flank pain. He has a history of kidney stones and was evaluated at the time for this, CT was negative for any stones in the kidneys (but positive for cholelithiasis). He was discharged at the time but has since developed some mildly sharp abdominal pain at the L abdomen, patient rates 8/10 earlier today but now moderate to mild after pain killers he received in the ED. He states the pain does not radiate and is mostly constant. He has some nausea associated with this. He also has some decreased appetite and not eaten much although no difficulty with swallowing. He denies any chest pain, shortness of breath, fevers, chills, diarrhea, constipation, blood in the stool, vomiting. Patient states he is in a rest week for his chemotherapy for his esophageal cancer. In the ED he was given 2L NSS, morphine 4mg and Zofran 4mg. CBC unremarkable aside from baseline hgb 10, CMP w/ creatinine of 2.26 BUN of 29, otherwise unremarkable. CT A&P w/o any acute diverticulitis, no SBO, no free air, no hydronephrosis or nephrolithiasis, hyperdense R upper pole renal cyst 1.3cm in size. Allergies Allergy/AdvReac Type Severity Reaction Status Date / Time niacin Allergy Intermediate flushing Verified 06/20/23 21:24 gemfibrozil Allergy Unknown unknown Verified 06/20/23 21:24 patient does not remember pravastatin Allergy Unknown patient Verified 06/20/23 21:24 does not remember simvastatin [From Zocor] Allergy Unknown patient Verified 06/20/23 21:24 does not remember codeine AdvReac Intermediate HYPERACTIVI Verified 06/20/23 21:24 TY Home Medications Medication Instructions Recorded Confirmed Type lisinopril 20 mg tablet 20 mg PO QAM 07/24/18 06/20/23 History meclizine 25 mg tablet 25 mg PO BID PRN Vertigo 08/09/21 06/20/23 History prochlorperazine maleate 10 mg 10 mg PO Q6 PRN Nausea 11/17/21 06/20/23 History tablet (Compazine) metformin 500 mg tablet 500 mg PO QAM 02/14/22 06/20/23 History ondansetron HCl 8 mg tablet 8 mg PO Q8H PRN Nausea 02/14/22 06/20/23 History paclitaxel 6 mg/mL See Rx Instructions .Route .COMPLEX 01/18/23 06/20/23 History concentrate,intravenous ramucirumab 10 mg/mL intravenous See Rx Instructions .Route .COMPLEX 01/18/23 06/20/23 History solution (Cyramza) promethazine 25 mg tablet 25 mg PO Q6H PRN nausea and 05/04/23 06/20/23 Rx vomiting #20 tabs atorvastatin 40 mg tablet (Lipitor) 40 mg PO HS 06/20/23 06/20/23 History cholecalciferol (vitamin D3) 50 50 mcg PO DAILY 06/20/23 06/20/23 History mcg (2,000 unit) capsule (Vitamin D3) cyanocobalamin (vitamin B-12) 100 100 mcg PO DAILY 06/20/23 06/20/23 History mcg tablet (Vitamin B-12) dexamethasone 4 mg tablet 12 mg PO DIRECTED PRN PER 06/20/23 06/20/23 History ORDERS FOR PACLITAXEL dronabinol 2.5 mg capsule 2.5 mg PO BID 06/20/23 06/20/23 History Past Med/Surg History Medical History Diabetes HTN (hypertension) Kidney stones Mixed conductive and sensorineural hearing loss of left ear with restricted hearing of right ear Sensorineural hearing loss of both ears Surgical History H/O hernia repair H/O prostatectomy History of knee replacement S/P tonsillectomy Family History Father Hypertension Heart disease Cancer Mother Cancer Hypertension Other No family history of adverse response to anesthesia No family history of bleeding disorder No pertinent family history Social History Smoking Status: Never smoker Second Hand Exposure: No; Do You Dip or Chew Tobacco: No; Hx Alcohol Use: No Hx Substance Use: No Preferred Language: Armenian Communication Ability: Effective Journalism Instructor Required: No Beliefs That Will Affect Care: None Current Living Situation: Family Current Living Situation Comment: lives at home with sonLavon Other Information That Helps Us Care for You: No Feels Safe at Home: Yes Safety Concerns: Feels Safe At This Time Assistive Devices: Glasses Review of Systems Review of Systems: As per HPI. Physical Exam Constitutional: WD/WN, vitals as above Eyes: PERRL, conjunctivae normal, anicteric sclerae ENMT: external ear and nose normal, oropharynx normal Neck: trachea midline, no thyromegaly Respiratory: normal respiratory effort, lungs clear to auscultation Cardiovascular: RRR, no murmur, no edema Gastrointestinal (Abdomen): BS+, non-distended, soft, tender to palpation at the LUQ and LLQ, no rebound or guarding. Results & Data Results & Data Vital Signs (Past 12 Hours) Vital Signs Temp Pulse Resp BP Pulse Ox O2 Del Method 06/21/23 01:12 75 20 158/87 H 98 Room Air 06/21/23 00:00 58 L 19 123/72 96 Room Air 06/20/23 23:00 65 19 129/76 95 Room Air 06/20/23 21:30 76 15 06/20/23 21:30 150/88 H 06/20/23 21:20 78 15 06/20/23 21:14 78 22 06/20/23 21:14 138/92 06/20/23 21:13 81 21 06/20/23 21:05 82 06/20/23 21:10 79 22 06/20/23 21:05 82 24 06/20/23 19:55 37.2 C 91 H 18 154/86 H 98 Room Air Supervising Physician Co-Signing Physician Notes Attending addendum: I have physically seen this patient, have supervised the medical residents activities, and agree with the H&P unless as otherwise noted. Assessment and Plan: Left-sided abdominal pain No clear etiology at this time CT scan abdomen pelvis negative Differential causes including but not limited to: Chemotherapy side effect, dehydration, metformin, esophageal cancer, kidney infection Status post 2 L normal saline in the ED LR at 125 mils per hour Reassess in a.m. Acute kidney injury on CKD- Creatinine 2.26, with baseline 1.5-1.8 Recheck after IV fluid rehydration completed Follow urinalysis, urine culture sensitivity Diabetes mellitus- Holding metformin as usual, in particular due to acute kidney injury potentially aggravating underlying symptom Insulin glargine and SSI as noted Remaining orders and notations as noted Resident Activity Tracking Resident Involvement: Resident Care Provided Care Provided: Adult Hospital Medicine (2) Esophageal cancer Malignant neoplasm of esophagus location: unspecified location Qualified Code(s): C15.9 - Malignant neoplasm of esophagus, unspecified (7) Anemia Anemia type: unspecified type Qualified Code(s): D64.9 - Anemia, unspecified
[2023-06-21] MEDS ORDERED: DEXTROSE 50% 50 ML SYRINGE IV PRN (02:51)
[2023-06-21] MEDS ORDERED: ACETAMINOPHEN 325 MG TAB PO PRN (02:51)
[2023-06-21] MEDS ORDERED: ONDANSETRON INJ 2 MG/ML 2 ML VIAL IV PRN (02:51)
[2023-06-21] MEDS ORDERED: CARBOHYDRATES FOR HYPOGLYCEMIA PO PRN (02:51)
[2023-06-21] MEDS ORDERED: GLUCOSE 40% GEL 15 GM TUBE PO PRN (02:51)
[2023-06-21] MEDS ORDERED: GLUCAGON FOR INJ 1 MG VIAL SQ PRN (02:51)
[2023-06-21] MEDS ORDERED: GLUCOSE 10 TAB/TUBE PO PRN (02:51)
[2023-06-21] MEDS: LACTATED RINGER'S 1,000 ML IV SCH ×3 (04:42→22:36)
[2023-06-21] MEDS: INSULIN ASPART PER UNIT CHARGE SC SCH ×4 (08:09→21:01)
[2023-06-21] MEDS: droNABinol 2.5 MG CAP PO SCH ×2 (08:23→22:43)
[2023-06-21] MEDS: FAMOTIDINE 40 MG TABLET PO SCH (08:23)
[2023-06-21] MEDS: LANTUS PER UNIT CHARGE SQ SCH ×2 (08:55→21:01)
--- NOTE | 2023-06-21 09:32 | Hospitalist Progress Note ---
Date of Service June 21, 2023 Assessment & Plan (1) Left sided abdominal pain: Plan: -Nausea w/o vomiting or bowel movement changes, no tex blood in stool. -CT A&P negative for any acute processes. -Pt has had decreased appetite and intake. improved after hydration -Control pain with Tylenol 650mg PRN. Patient feeling slightly better with rehydration (2) Esophageal cancer: Plan: -Noted, on rest week for chemotherapy treatment. (3) Renal cysts, acquired, bilateral: Plan: -Noted 1.3cm R renal cyst on CT A&P. I don't believe this to be the cause of the patient's pain. U/A negative for blood. (4) CKD (chronic kidney disease) stage 3, GFR 30-59 ml/min: Plan: -Acute kidney injury -Creatinine 2.26, BUN 29 on admission. -Baseline around 1.5-1.8 -Continue with hydration as above. (5) DM (diabetes mellitus): Plan: -Holding metformin in face of acute kidney injury. -Lantus BID, SSI while inpatient. (6) HTN (hypertension): Plan: -Will hold lisinopril with acute kidney injury. BP has remained in WNL. (7) Anemia: Plan: -Hgb 10.3 on admission. Patients baseline around 9-11. -Continue to trend with AM CBC. (8) Hyperlipidemia: Plan: Continue home atorvastatin. Plan DVT Prophylaxis: SCD, can put on chemoprophylaxis if here more than 1 day. Code status: Full Admission and Anticipated Discharge Date Admission Date: June 21, 2023 Subjective pt is improved, but not completely back to baseline, wished to have more reliable po intake before going home Physical Exam Physical Exam: awake and alert cardiac exam is regular lungs are clear abd is soft and non tender Results & Data Results & Data Vital Signs (Past 12 Hours) Vital Signs Temp Pulse Pulse Pulse Resp BP BP 06/21/23 07:41 97.9 F 56 L 18 126/74 06/21/23 02:55 06/21/23 02:55 97.9 F 67 20 159/80 H 06/21/23 02:30 59 L 16 118/67 06/21/23 01:48 57 L 06/21/23 01:12 75 20 158/87 H 06/21/23 00:00 58 L 19 123/72 06/20/23 23:00 65 19 129/76 06/20/23 21:30 76 15 06/20/23 21:30 150/88 H Pulse Ox O2 Del Method 06/21/23 07:41 96 Room Air 06/21/23 02:55 Room Air 06/21/23 02:55 96 Room Air 06/21/23 02:30 97 Room Air 06/21/23 01:48 06/21/23 01:12 98 Room Air 06/21/23 00:00 96 Room Air 06/20/23 23:00 95 Room Air 06/20/23 21:30 06/20/23 21:30 PG Care Time/CCT Total # of Minutes Spent Total Time Spent with Patient: Total time spent is greater than 50% in coordination of care (as documented) at patient's floor/unit and/or counseling patient: Coding Level of Care Code 12333 SUB INP/OBS CARE 2/35MIN Diagnoses Left sided abdominal pain R10.9 Esophageal cancer C15.9 Renal cysts, acquired, bilateral N28.1 CKD (chronic kidney disease) stage 3, GFR 30-59 ml/min N18.30 DM (diabetes mellitus) E11.9 HTN (hypertension) I10 Anemia D64.9 Anemia type: unspecified type Hyperlipidemia E78.5 (7) Anemia Anemia type: unspecified type Qualified Code(s): D64.9 - Anemia, unspecified
[2023-06-21] MEDS: ENOXAPARIN INJ 30 MG/0.3 ML SYR SQ SCH (10:51)
[2023-06-21] MEDS ORDERED: ATORVASTATIN 40 MG TAB PO SCH (21:00)
--- NOTE | 2023-06-22 04:09 | Billing Data ---
Date of Service June 22, 2023 Coding Level of Care Code 86423 INT INP/OBS CARE
[2023-06-22] MEDS: LACTATED RINGER'S 1,000 ML IV SCH (06:45)
[2023-06-22] MEDS: FAMOTIDINE 40 MG TABLET PO SCH (08:11)
[2023-06-22] MEDS: ENOXAPARIN INJ 30 MG/0.3 ML SYR SQ SCH (08:11)
[2023-06-22] MEDS: droNABinol 2.5 MG CAP PO SCH (08:11)
[2023-06-22] MEDS: INSULIN ASPART PER UNIT CHARGE SC SCH ×2 (08:12→12:33)
[2023-06-22] MEDS: LANTUS PER UNIT CHARGE SQ SCH (09:41)
--- NOTE | 2023-06-22 14:27 | Discharge Summary ---
Date of Service June 22, 2023 Admission HPI Per Admitting Provider Heath is a 77 year old male w/ PmHx esophageal and prostate cancer on chemotherapy, CKD3, HLD, T2DM coming in to the ED for 2 days of L sided abdominal pain. Patient states that he came to the ED about 2 days prior for L sided back/flank pain. He has a history of kidney stones and was evaluated at the time for this, CT was negative for any stones in the kidneys (but positive for cholelithiasis). He was discharged at the time but has since developed some mildly sharp abdominal pain at the L abdomen, patient rates 8/10 earlier today but now moderate to mild after pain killers he received in the ED. He states the pain does not radiate and is mostly constant. He has some nausea associated with this. He also has some decreased appetite and not eaten much although no difficulty with swallowing. He denies any chest pain, shortness of breath, fevers, chills, diarrhea, constipation, blood in the stool, vomiting. Patient states he is in a rest week for his chemotherapy for his esophageal cancer. In the ED he was given 2L NSS, morphine 4mg and Zofran 4mg. CBC unremarkable aside from baseline hgb 10, CMP w/ creatinine of 2.26 BUN of 29, otherwise unremarkable. CT A&P w/o any acute diverticulitis, no SBO, no free air, no hydronephrosis or nephrolithiasis, hyperdense R upper pole renal cyst 1.3cm in size. Principal Diagnosis chemotherapy associated nausea and anorexia Discharge Data Allergies Allergy/AdvReac Type Severity Reaction Status Date / Time niacin Allergy Intermediate flushing Verified 06/20/23 21:24 gemfibrozil Allergy Unknown unknown Verified 06/20/23 21:24 patient does not remember pravastatin Allergy Unknown patient Verified 06/20/23 21:24 does not remember simvastatin [From Zocor] Allergy Unknown patient Verified 06/20/23 21:24 does not remember codeine AdvReac Intermediate HYPERACTIVI Verified 06/20/23 21:24 TY Consultations 06/21/23 01:36 ED Decision to Admit Stat Ordered Studies 06/20/23 22:08 CT abd pelvis wo con Stat Hospital Course (1) Left sided abdominal pain: -Nausea w/o vomiting has resolved with hydration, pt has been able to eat and drink, although could be more, wants to go home -CT A&P negative for any acute processes. -Control pain with Tylenol (2) Esophageal cancer: -Noted, on rest week for chemotherapy treatment. (3) Renal cysts, acquired, bilateral: -Noted 1.3cm R renal cyst on CT A&P. I don't believe this to be the cause of the patient's pain. U/A negative for blood. (4) CKD (chronic kidney disease) stage 3, GFR 30-59 ml/min: -Acute kidney injury -Creatinine 2.26, BUN 29 on admission. -Baseline around 1.5-1.8 -ckd 3 with gfr around 30 to be ckd4 will stop metformin due to renal decline, discussed this and if wants to start very low dose sufonylurea, but pt wants to speak to pcp, this may be best given variable po intake (5) DM (diabetes mellitus): -Holding metformin in face of acute kidney injury. pt wished to discuss out pt regime with pcp consider restart lower dose lisinopril for renal protection if bp allows as outpt (6) HTN (hypertension): -Will STOP lisinopril with acute kidney injury. BP has remained in WNL. may benefit from restarty low dose for renal protective affects with diabetes (7) Anemia: -Hgb 10.3 on admission. Patients baseline around 9-11. (8) Hyperlipidemia: Continue home atorvastatin. Plan DVT Prophylaxis: SCD, can put on chemoprophylaxis if here more than 1 day. Code status: Full Total Time Total Time Spent Total Time Spent (In Minutes): greater than 30 minutes required for patient care this day Discharge Plan Discharge Items Patient Disposition: Home - Self-Care Reason For Visit: ABDOMINAL PAIN Discharge Diagnosis: nausea and vomiting dehydration active treatment for cancer with chemotherapy Activity: Resume your previous activity Non-emergency contact: Primary Care Provider and Oncologist Call non-emergency contact if: your symptoms worsen Follow-up/Referrals: Hortencia Leal PA-C [Primary Care Provider] - Diet: Regular Addtl Attending Provider Instructions: please discuss this hospital stay in the context of your current chemotherapy with your oncologist we have recommended you stop your metformin, due to your kidney function please discuss diabetic care with your primary care we did discuss your glucose meter and if you need another please ask please check and record your blood sugar levels to take to your primary care for follow up please see your primary care in one week Pending Studies at Discharge: Yes Studies:: blood cultures will continue to be surveyed Stand-Alone Forms: My [facility], Smoking Cessation Medications and DC Order Prescriptions: Continued meclizine 25 mg tablet 25 mg PO BID PRN (Reason: Vertigo) ondansetron HCl 8 mg tablet 8 mg PO Q8H PRN (Reason: Nausea) prochlorperazine maleate [Compazine] 10 mg tablet 10 mg PO Q6 PRN (Reason: Nausea) Cyramza 10 mg/mL solution See Rx Instructions .ROUTE .COMPLEX Rx Instructions: Patient's cancer medication that he gets once weekly at cancer clinic. paclitaxel 6 mg/mL concentrate See Rx Instructions .ROUTE .COMPLEX Rx Instructions: Patient's cancer medication that he gets once weekly at cancer clinic. promethazine 25 mg tablet 25 mg PO Q6H PRN (Reason: nausea and vomiting) Qty: 20 0RF atorvastatin [Lipitor] 40 mg Tablet 40 mg PO HS cyanocobalamin (vitamin B-12) [Vitamin B-12] 100 mcg Tablet 100 mcg PO DAILY dronabinol 2.5 mg capsule 2.5 mg PO BID dexamethasone 4 mg Tablet 12 mg PO DIRECTED PRN (Reason: PER ORDERS FOR PACLITAXEL) Rx Instructions: TAKE NIGHT BEFORE AND MORNING OF PACLITAXEL INFUSION. cholecalciferol (vitamin D3) [Vitamin D3] 50 mcg (2,000 unit) Capsule 50 mcg PO DAILY Discontinued metformin 500 mg tablet 500 mg PO QAM lisinopril 20 mg Tablet 20 mg PO QAM Discharge Orders: Discharge Order (Routine); Ordered 06/22/23 Ordered By: Davin Schultz Admission Data Admit Date/Time: 06/21/23 01:58 Attending Provider: Davin Schultz Admit Provider: Leonel Kothari Primary Care Provider: Hortencia Leal Other Providers: Juan Jose Jones ; [facility] Coding Level of Care Code 61334 INP/OBS DISCH >30 MIN Diagnoses Left sided abdominal pain R10.9 Esophageal cancer C15.9 Renal cysts, acquired, bilateral N28.1 CKD (chronic kidney disease) stage 3, GFR 30-59 ml/min N18.30 DM (diabetes mellitus) E11.9 HTN (hypertension) I10 Anemia D64.9 Anemia type: unspecified type Hyperlipidemia E78.5
[2023-06-22 14:59] VITALS: BP 118/63; PULSE 63; TEMP 98.4; O2SAT 97
--- OUTSIDE RECORDS SUMMARY | 2023-06-27 07:30 | External Medical Summary ---
Author Name Unknown Address Unknown Organization K09[facility] [address] Laboratory Report Ordering Provider Test Date Status SHAY CH 06/12/2023 09:13:28 Final Observation Date Value Abnormality Reference (Units ) Status WBC, Total 06/12/2023 09:13:28 7.06 4.00-10.8 0 (K/uL) Final RBC 06/12/2023 09:13:28 3.82 4.50-5.25 (M/uL) Final Hemoglobin 06/12/2023 09:13:28 10.3 Below low normal 14 .0-16.8 (g/dL) Final HCT 06/12/2023 09:13:28 34.7 Below low normal 40. 0-48.4 (%) Final MCV 06/12/2023 09:13:28 90.8 82.0-99.5 (fL) Final MCH 06/12/2023 09:13:28 27.0 27.0-34.0 (pg) Final MCHC 06/12/2023 09:13:28 29.7 32.0-36.0 (g/dL) Final RDW 06/12/2023 09:13:28 20.5 11.5-15.5 (%) Final Platelets 06/12/2023 09:13:28 173 140-400 (K /uL) Final MPV 06/12/2023 09:13:28 9.1 6.6-11.1 ( fL) Final Performing Location [facility] [place] [address]
--- OUTSIDE RECORDS SUMMARY | 2023-06-27 07:30 | External Medical Summary ---
Author Name Unknown Address Unknown Organization K09[facility] [place] [address] Laboratory Report Ordering Provider Test Date Status SHAY CH 06/12/2023 09:13:28 Final Observation Date Value Abnormality Reference (Units ) Status Color of Urine by Auto 06/12/2023 09:13:28 Yellow Light Yellow, Yellow, Dark Yellow Final Clarity, Urine 06/12/2023 09:13:28 Clear Clear Final Glucose [Mass/volume] in Urine by Automated test strip 06/12/2023 09:13:28 Negative Negative (mg/dL) Final Bilirubin.total [Presence] in Urine by Automated test strip 06/12/2023 09:13:28 Small Abnormal Negative Final Ketones [Mass/volume] in Urine by Automated test strip 06/12/2023 09:13:28 15 Abnormal Negative (mg/dL) Final Specific gravity, Urine 06/12/2023 09:13:28 1.020 1.003-1.030 Final Hemoglobin [Presence] in Urine by Automated test strip 06/12/2023 09:13:28 Trace Abnormal Negative Final pH, Urine 06/12/2023 09:13:28 5.0 5.0-7.5 (Units) Final Protein [Mass/volume] in Urine by Automated test strip 06/12/2023 09:13:28 30 Abnormal Negative (mg/dL) Final Urobilinogen [Mass/volume] in Urine by Automated test strip 06/12/2023 09:13:28 0.2 0.2, 1.0 (mg/dL) Final Nitrite [Presence] in Urine by Automated test strip 06/12/2023 09:13:28 Negative Negative Final Leukocyte esterase [Presence] in Urine by Automated test strip 06/12/2023 09:13:28 Negative Negative Final Performing Location [facility] [place] [address]
--- OUTSIDE RECORDS SUMMARY | 2023-06-27 07:30 | External Medical Summary | Summary of Care ---
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 0 Active METFORMIN ER 500 MG PO TB24 Take 1 Tablet by mouth in the morning and 1 Tablet before bedtime. 0 Active VITAMIN B-12 1000 MCG PO TABS Take 0.5 Tablets by mouth. 0 Active ATORVASTATIN CALCIUM 20 MG PO TABS Take 2 Tablets by mouth. 0 Active Cholecalciferol (VITAMIN D-3) 1000 units Capsule Take 1 Capsule by mouth in the morning. 0 Active Aspirin 81 MG Tablet Take 1 Tablet by mouth in the morning. 0 Active meclizine (ANTIVERT) 12.5 MG Tablet Take 1 Tablet by mouth in the morning and 1 Tablet before bedtime. As needed . 0 Active [place]-3 Fatty Acids (FISH OIL) 1000 MG Capsule Take 1 Capsule by mouth in the morning. 2 capsules by mouth twice daily . 0 Active Alogliptin Benzoate 12.5 MG TABS Take 12.5 mg by mouth daily. 0 Active Ferrous Sulfate 325 (65 Fe) MG Oral Tablet (Feosol) TAKE ONE TABLET BY MOUTH EVERY 48 HOURS SAME IRON 0 04/01/2021 Active Vitamin C 500 MG Oral Capsule Take by mouth. 0 Active Polyethylene Glycol 3350 17 GM/SCOOP Oral Powder Take 17 g by mouth in the morning. 0 Active Sucralfate 1 GM Oral Tablet (Carafate) Take 1 Tablet by mouth in the morning and 1 Tablet at noon and 1 Tablet in the evening and 1 Tablet before bedtime. 0 Active Omeprazole 40 MG Oral Capsule Delayed Release (PriLOSEC) Take 1 Capsule by mouth in the morning. 0 Active Ondansetron HCl 8 MG Oral TabletIndications:Ma lignant 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) Take 1 Tablet by mouth every 8 hours as needed for Nausea. 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 30 Tablet 0 04/25/2023 Active Bisacodyl 5 MG Oral Tablet Delayed Release (Dulcolax) Take 1 Tablet by mouth daily as needed for Constipation. 0 Active Dronabinol 2.5 MG Oral Capsule (Marinol) Take 1 Capsule by mouth in the morning and 1 Capsule before bedtime. 60 Capsule 2 05/29/2023 Active documented as of this encounter (statuses as of 06/12/2023) Active Problems Problem Noted Date Dehydration 12/19/2021 Adenocarcinoma of esophagus metastatic t o intra-abdominal lymph node 08/17/2021 Kidney stones 08/16/2021 RINA (stress urinary incontinence), male 08/16/2021 Renal cyst, acquired 08/16/2021 Encounter for antineoplastic chemotherap y 08/04/2021 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 07/21/2021 Prostate cancer 12/31/2013 Other ventral hernia without mention of obstruction or gangrene 05/03/2012 documented as of this encounter (statuses as of 06/12/2023) Resolved Problems Problem Noted Date Resolved Date Elevated prostate specific antigen (PSA) 011 12/31/2013 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 documented as of this encounter (statuses as of 06/12/2023) Immunizations Name Administration Dates Next Due COVID-19 mRNA, LNP-s, No Pre serve, 2-Dose Series (Moderna) 10/01/2021,02/14/2021,01/17/2021 Seasonal Influenza Virus Vac cine, Unspecified Formulation 07/30/2021 documented as of this encounter Social History Tobacco Use Types Packs/Day Years Used Date Smoking Tobacco: Never Smokeless Tobacco: Never Alcohol Use Standard Drinks/Week Comments No 0 (1 standard drink = 0.6 oz pur e alcohol) Sex Assigned at Date Recorded Not on file Job Start Date Occupation Industry Not on file Not on file Not on file documented as of this encounter Plan of Treatment Upcoming Encounters Date Type Specialty Care Team Description 06/13/2023 Hem/Onc Treatment Hematology [facility] [place], Chair 1 Hem Onc Scenery [address] [place] [address] 08/14/2023 Office Visit Gastroenterology Roz Tracey MD [address] [place] [address] 08/21/2023 Procedure Only Urology Cm Rhodes MD [address] [place] [address] [place] [address] Pending Results Name Type Priority Associated Diagnoses Date /Time URINALYSIS, REFLEX TO MICROSCOPIC Lab Routine 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) 06/12/2023 9:13 AM EDT COMPREHENSIVE METABOLIC PANEL Lab STAT 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) 06/12/2023 9:13 AM EDT Health Maintenance Due Date Last Done Comments Pneumococcal Vaccine: 65+ Years (1 - PCV) 12/29/1951 Depression Screening, Annual for Pts 12 and Over 1957 Hepatitis C Screening 12/29/1963 DTaP,Tdap,and Td Vaccines (1 - Tdap) 1964 COVID-19 Vaccine (4 - Moderna risk series) 11/26/2021 10/01/2021, 02/14/2021, 01/17/2021 Influenza Vaccine (FLU shot) (#1) 2023 07/30/2021, 08/21/2018, 07/14/2017, Additional history exists COLONOSCOPY-EVERY 3 YRS AGES 18-100 07/15/2024 07/15/2021, 07/15/2021, 04/12/2018, Additional history exists Zoster Vaccines Completed 03/30/2021, 10/28/2020 GARDASIL-HPV IMMUNIZATION SERIES Aged Out No longer eligible based on patient's age to complete this topic Hepatitis B Aged Out No longer eligi ble based on patient's age to complete this topic MENINGOCOCCAL (MENACTRA/MENVEO) Aged Out No longer eligible based on patient's age to complete this topic documented as of this encounter Medical Devices Implanted Type Area Library Supervisor Device Identifier Shelf Expiration Date Model / Serial / Lot Cath Power Port 6fr Clearvue - [id number] Implanted:Qty : 1 on 08/10/2021 by Alexander Rodriguez MD at [facility] Left: Subclavian CR BARD : PERIPHERAL VASCULAR 08/21/2021 [id number] / / documented as of this encounter Procedures Procedure Name Priority Date/Time Associated Diagnosis Comments DIFFERENTIAL, AUTOMATED STAT 06/12/2023 9:13 AM EDT 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) CBC WITH WBC DIFFERENTIAL STAT 06/12/2023 9:13 AM EDT 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) CBC STAT 06/12/2023 9:13 AM EDT 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) documented in this encounter Results * DIFFERENTIAL, AUTOMATED (06/12/2023 9:13 AM EDT) WBC 7.06 4.00 - 10.80 K/uL 06/12/2023 9:22 AM EDT [facility] [place] 56-02 Neutrophils % 66.9 40.0 - 75.0 % 06/12/2023 9:22 AM EDT [facility] [place] 56-02 Lymphocytes % 21.4 18.0 - 42.0 % 06/12/2023 9:22 AM EDT [facility] [place] 56-02 Monocytes % 10.3 1.0 - 11.0 % 06/12/2023 9:22 AM EDT [facility] [place] 56-02 Eosinophils % 1.1 0.0 - 6.0 % 06/12/2023 9:22 AM EDT [facility] [place] 56-02 Basophils % 0.3 0.0 - 2.0 % 06/12/2023 9:22 AM EDT [facility] [place] 56-02 Absolute Neutrophils 4.72 1.80 - 7.70 K/uL 06/12/2023 9:22 AM EDT [facility] [place] 56-02 Absolute Lymphocytes 1.51 1.00 - 4.80 K/ul 06/12/2023 9:22 AM EDT [facility] [place] 56-02 Absolute Monocytes 0.73 0.00 - 1.10 K/uL 06/12/2023 9:22 AM EDT [facility] [place] 56-02 Absolute Eosinophils 0.08 0.00 - 0.70 K/uL 06/12/2023 9:22 AM EDT [facility] [place] 56-02 Absolute Basophils 0.02 0.00 - 0.20 K/uL 06/12/2023 9:22 AM EDT [facility] [place] 56-02 Blood Venous blood specimen / Unknown Venipuncture / Unknown 06/12/2023 9:13 AM EDT 06/12/2023 9:13 AM EDT Nik Melo MD LAB BLOOD [facility] [address] [place] [address] * (ABNORMAL) CBC (06/12/2023 9:13 AM EDT) WBC 7.06 4.00 - 10.80 K/uL 06/12/2023 9:22 AM EDT [address] RBC 3.82 4.50 - 5.25 M/uL 06/12/2023 9:22 AM EDT [place] [address] HGB 10.3(L) 14.0 - 16.8 g/dL 06/12/2023 9:22 AM EDT [place] [address] HCT 34.7(L) 40.0 - 48.4 % 06/12/2023 9:22 AM EDT [address] MCV 90.8 82.0 - 99.5 fL 06/12/2023 9:22 AM EDT [address] MCH 27.0 27.0 - 34.0 pg 06/12/2023 9:22 AM EDT [place] [address] MCHC 29.7 32.0 - 36.0 g/dL 06/12/2023 9:22 AM EDT [place] [address] RDW 20.5 11.5 - 15.5 % 06/12/2023 9:22 AM EDT [address] PLT 173 140 - 400 K/uL 06/12/2023 9:22 AM EDT [address] MPV 9.1 6.6 - 11.1 fL 06/12/2023 9:22 AM EDT [facility] 56 Blood Venous blood specimen / Unknown Venipuncture / Unknown 06/12/2023 9:13 AM EDT 06/12/2023 9:13 AM EDT Nik Melo MD LAB BLOOD [facility] [address] 200 [facility], [place] [address] documented in this encounter Visit Diagnoses Diagnosis 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 Full Code 01/05/2011 11:28 AM 01/05/2011 11:38 PM Thi s order reflects the patients wishes and were consensually agreed upon. Care Teams Tarper Relationship Specialty Start Date End Date Hortencia Leal PA-C [address] [facility] [address] PCP - General Physician Human Resources Benefits Manager 02/08/18 documented as of this encounter
--- OUTSIDE RECORDS SUMMARY | 2023-06-27 07:31 | External Medical Summary ---
Author Name Unknown Address Unknown Organization K09:[facility] [place] [address] Laboratory Report Ordering Provider Test Date Status SHAY CH 06/12/2023 09:13:28 Final Observation Date Value Abnormality Reference (Units ) Status SYNC LEUKOCYTES IN BLOOD BY AUTOMATED COUNT 06/12/2023 09:13:28 7.06 4.00-10.80 (K/uL) Final Segs 06/12/2023 09:13:28 66.9 40.0-75.0 (%) Final Lymphs % 06/12/2023 09:13:28 21.4 18.0-42.0 (%) Final Monos 06/12/2023 09:13:28 10.3 1.0-11.0 (%) Final Eosinophils 06/12/2023 09:13:28 1.1 0.0-6.0 (%) Final Basos 06/12/2023 09:13:28 0.3 0.0-2.0 (%) Final Absolute Segs 06/12/2023 09:13:28 4.72 1.80-7.70 (K/uL) Final Lymphs, absolute 06/12/2023 09:13:28 1.51 1.00-4.80 (K/ul) Final Monos, Abs 06/12/2023 09:13:28 0.73 0.00-1.10 (K/uL) Final Eos, Abs 06/12/2023 09:13:28 0.08 0.00-0.70 (K/uL) Final Basos, Abs 06/12/2023 09:13:28 0.02 0.00-0.20 (K/uL) Final Performing Location [facility] [place] [address]
--- OUTSIDE RECORDS SUMMARY | 2023-06-27 07:31 | External Medical Summary | Summary of Care ---
Author Name Unknown Organization [facility] Address [address] [facility] [place] [address] Phone [phone] Care Team Providers Care Continuing Education Instructor Name Role Phone Hortencia Leal PA-C Primary Care Provid er Reason for Visit * Reason Comments Outpatient Testing Encounter Details Date Type Department Care Team Description 06/05/2023 Laboratory Laboratory [facility] [place] [address] [place] [address] [facility] Lab [facility] [address] [facility] [place] [address] 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); Encounter for adjustment and management of vascular access device; 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 As needed . 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 documented as of this encounter (statuses as of 06/05/2023) Immunizations Name Administration Dates Next Due COVID-19 [...] Encounters Date Type Specialty Care Team Description 06/05/2023 Office Visit Hematology Oncology [place], Nik Vargas MD [address] [place] [address] Arrived 06/06/2023 Hem/Onc Treatment Hematology [facility] [place], Chair 6 Hem Onc Sc[address] [place] [address] 08/14/2023 Office Visit Gastroenterology Roz Tracey MD [address] [place] [address] 08/21/2023 Procedure Only Urology Cm Rhodes MD [address] [place] [address] [place] [address] Pending Results Name Type Priority Associated Diagnoses Date /Time COMPREHENSIVE METABOLIC PANEL Lab STAT 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) 06/05/2023 7:52 AM EDT TSH WITH FREE T4 IF INDICATED Lab STAT Encounter for adjustment and management of vascular access device 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) Prostate cancer (HCC) Encounter for long-term (current) use of medications 06/05/2023 7:52 AM EDT URINALYSIS, REFLEX TO MICROSCOPIC Lab Routine 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) 06/05/2023 7:57 AM EDT Health Maintenance Due Date Last [...] this encounter Medical Devices Implanted Type Area Route Sales Delivery Driver Device Identifier Shelf Expiration Date Model / Serial / Lot Cath Power Port 6fr Clearvue - [id number] Implanted:Qty : 1 on 08/10/2021 by Alexander Rodriguez MD at OR [facility] Left: Subclavian CR BARD : PERIPHERAL VASCULAR 08/21/2021 [id number] / / documented as of this encounter Procedures Procedure Name Priority Date/Time Associated Diagnosis Comments DIFFERENTIAL, AUTOMATED STAT 06/05/2023 7:52 AM EDT 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) CBC WITH WBC DIFFERENTIAL STAT 06/05/2023 7:52 AM EDT 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) CBC STAT 06/05/2023 7:52 AM EDT 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) documented in this encounter Results * DIFFERENTIAL, AUTOMATED (06/05/2023 7:52 AM EDT) WBC 4.35 4.00 - 10.80 K/uL 06/05/2023 8:01 AM EDT [facility]ORY [facility] 56-02 Neutrophils % 63.5 40.0 - 75.0 % 06/05/2023 8:01 AM EDT [facility] 56-02 Lymphocytes % 27.8 18.0 - 42.0 % 06/05/2023 8:01 AM EDT [facility] [place] 56-02 Monocytes % 6.4 1.0 - 11.0 % 06/05/2023 8:01 AM EDT [facility] [place] 56-02 Eosinophils % 1.8 0.0 - 6.0 % 06/05/2023 8:01 AM EDT [facility] [place] 56-02 Basophils % 0.5 0.0 - 2.0 % 06/05/2023 8:01 AM EDT LAB[facility] 56-02 Absolute Neutrophils 2.76 1.80 - 7.70 K/uL 06/05/2023 8:01 AM EDT LABORATORY [facility] 56-02 Absolute Lymphocytes 1.21 1.00 - 4.80 K/ul 06/05/2023 8:01 AM EDT [facility] 56 Absolute Monocytes 0.28 0.00 - 1.10 K/uL 06/05/2023 8:01 AM EDT [facility] 56- Absolute Eosinophils 0.08 0.00 - 0.70 K/uL 06/05/2023 8:01 AM EDT [facility] 56 Absolute Basophils 0.02 0.00 - 0.20 K/uL 06/05/2023 8:01 AM EDT [facility] 56 Blood Venous blood specimen / Unknown Venipuncture / Unknown 06/05/2023 7:52 AM EDT 06/05/2023 7:52 AM EDT Nik Melo MD LAB BLOOD [facility] [address] [place] [address] * (ABNORMAL) CBC (06/05/2023 7:52 AM EDT) WBC 4.35 4.00 - 10.80 K/uL 06/05/2023 8:01 AM EDT [facility] 56 RBC 3.50 4.50 - 5.25 M/uL 06/05/2023 8:01 AM T [facility] 56 HGB 9.7(L) 14.0 - 16.8 g/dL 06/05/2023 8:01 AM T [facility] 56 HCT 32.6(L) 40.0 - 48.4 % 06/05/2023 8:01 AM EDT [facility] 56 MCV 93.1 82.0 - 99.5 fL 06/05/2023 8:01 AM EDT [facility] 56 MCH 27.7 27.0 - 34.0 pg 06/05/2023 8:01 AM EDT [facility] 56- MCHC 29.8 32.0 - 36.0 g/dL 06/05/2023 8:01 AM EDT [facility] 56 RDW 20.5 11.5 - 15.5 % 06/05/2023 8:01 AM EDT [facility] 56 PLT 124(L) 140 - 400 K/uL 06/05/2023 8:01 AM EDT [facility] 56 MPV 8.8 6.6 - 11.1 fL 06/05/2023 8:01 AM EDT [facility] 56 Blood Venous blood specimen / Unknown Venipuncture / Unknown 06/05/2023 7:52 AM EDT 06/05/2023 7:52 AM EDT Nik Melo MD LAB BLOOD [facility] [address] [place] [address] documented in this encounter Visit Diagnoses Diagnosis 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 Care Teams Continuing Education Instructor Relationship Specialty Start Date End Date Hortencia Leal [facility]-C [address] [facility] [address] PCP - General Physician Chief Clerk Shelter 02/08/18 documented as of this encounter
--- OUTSIDE RECORDS SUMMARY | 2023-06-27 07:31 | External Medical Summary | Summary of Care ---
Author Name Unknown Organization [facility] Address [address] [facility] [address] Phone [phone] Care Team Providers Care Transport Truck Driver Name Role Phone Hortencia Leal PA-C Primary Care Provid er Reason for Visit * Reason Onset Date Comments Follow Up 06/04/2023 Encounter Details Date Type Department Care Team Description 06/04/2023 Telephone Gastroenterology, [facility] [address] [place] [address] Roz Tracey MD [address] [place] [address] Follow Up Allergies Active Allergy Reactions Severity Noted Date Comments Amlodipine 11/02/2020 dizziness Codeine Sulfate Other (Please comment) 10/26/19 11 hyperactivity Hydrochlorothiazide 11/02/2020 hypercalcemia Oxaliplatin 02/09/2022 Infusion related reaction documented as of this encounter (statuses as of 06/04/2023) Medications Medication Sig Dispensed Refills Start Date [...] before bedtime. As needed . 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 Pt states overall he feels better and has had a little better appetite. States he has been busy with chemotherapy and doctor appts. Does note some confusion, stating " I lost a day, I thought today was Sunday" also notes to have very occasional dizziness- he is using a cane to walk. Pt denies any abdominal pain, cramping, heart palpitations, And denies any mood changes. * Telephone Encounter - Ayleen Lovell LPN - 06/04/2023 9:48 AM EDT Per msg- dr tracey would like us to check on this pt. Pt started marinol BID for ASSESSMENT/PLAN: Constipation, ? Stercoral colitis - He has upcoming repeat PET. Given his age, frailty, comorbid cancer, and absence of symptomatic constipation, will defer colonoscopy. Poor appetite, cancer cacheixa -- Trial of Marinol 2.5 twice daily, side effects reviewed. Roz Tracey MD Called pt and left msg, need to see how is his weakness, appetite, fatigue, any diarrhea or constipation. documented in this encounter Plan of Treatment Upcoming Encounters Date Type Specialty Care Team Description 06/05/2023 Laboratory Laboratory [place], Lab Scenery [address] [place] [address] 06/05/2023 Office Visit Hematology Oncology [place], Nik Vargas MD [address] [place] [address] 06/06/2023 Hem/Onc Treatment Hematology Oncology [place], Chair 6 Hem Onc Scenery [address] [place] [address] 08/14/2023 Office Visit Gastroenterology Roz Tracey MD [address] [place] [address] 08/21/2023 Procedure Only Urology Cm Rhodes MD [address] [place] [address] [place] [address] Health Maintenance Due Date Last Done Comments [...] this encounter Medical Devices Implanted Type Area Supervisor Paste Plant Device Identifier Shelf Expiration Date Model / Serial / Lot Cath Power Port 6fr Clearvue - [id number] Implanted:Qty : 1 on 08/10/2021 by Alexander Rodriguez MD at OR [facility] Left: Subclavian CR BARD : PERIPHERAL VASCULAR 08/21/2021 [id number] / / documented as of this encounter Advance Directives Latest Code Status [...] and were consensually agreed upon. Care Teams Transport Truck Driver Relationship Specialty Start Date End Date Hortencia Leal PA-C [address] [employer], [place] [address] PCP - General Physician Lpn Or Medical Assistant 02/08/18 documented as of this encounter
--- OUTSIDE RECORDS SUMMARY | 2023-06-27 07:31 | External Medical Summary | Summary of Care ---
Author Name Unknown Organization [facility] Address [address] [address] Phone [phone] Care Team Providers Care Drafter [employer]umbing Name Role Phone Hortencia Leal PA-C Primary Care Provid er Encounter Details Date Type Department Care Team Description 06/03/2023 Orders Only Hematology/Oncology, [address] [place] [id number] Nik Melo MD [address] [facility] [place] [address] Allergies Active Allergy Reactions Severity Noted Date Comments Amlodipine 11/02/2020 dizziness Codeine Sulfate Other (Please comment) 10/26/19 11 hyperactivity Hydrochlorothiazide 11/02/2020 hypercalcemia Oxaliplatin 02/09/2022 Infusion related reaction documented as of this encounter (statuses as of 06/03/2023) Medications Medication Sig Dispensed Refills Start Date [...] before bedtime. As needed . 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 documented as of this encounter (statuses as of 06/03/2023) Immunizations Name Administration Dates Next Due COVID-19 [...] Specialty Care Team Description 06/05/2023 Laboratory Laboratory [facility], Lab Scenery [address] [place] [id number] 06/05/2023 Office Visit Hematology Oncology Nik Melo MD [address] [place] [address] 06/06/2023 Hem/Onc Treatment Hematology Oncology [facility], Chair 6 Hem Onc Scenery [address] [place] [id number] 08/14/2023 Office Visit Gastroenterology Roz Tracey MD [...] this encounter Medical Devices Implanted Type Area Sanitary Engineering Teacher Device Identifier Shelf Expiration Date Model / Serial / Lot Cath Power Port 6fr Clearvue - [id number] Implanted:Qty : 1 on 08/10/2021 by Alexander Rodriguez MD at OR [facility] [place] Left: Subclavian CR BARD : PERIPHERAL VASCULAR 08/21/2021 [id number] / / documented as of this encounter [...] and were consensually agreed upon. Care Teams Drafter Plumbing Relationship Specialty Start Date End Date Hortencia Leal PA-C [id number] [facility] [address] P[facility] - General Physician Pigment Mixer 02/08/18 documented as of this encounter
--- OUTSIDE RECORDS SUMMARY | 2023-06-27 07:31 | External Medical Summary | Summary of Care ---
Author Name Unknown Organization [facility] Address [address] [facility] [place] [address] Phone [phone] Care Team Providers Care Legal Service Specialist Name Role Phone Hortencia Leal PA-C Primary Care Provid er Reason for Visit * Reason Comments Chemotherapy Chemo/recheck * Evaluate & Treat - Unlimited Visits (Within 10 days (routine)) - Authorized Specialty Diagnoses / Procedures Referred By Lizzie reno Referred To Contact *Hem/Onc* Diagnoses Adenocarcinoma in situ of esophagus Prostate cancer (HCC) Procedures EVAL AND TREAT Tai Mccray MD [address] [place] [address] Referral ID Status Reason Start Date Expiration Date Visits Requested Visits Authorized [id number] Authorized Specialty Services Required 2 09/11/[phone] Encounter Details Date Type Department Care Team Description 06/05/2023 Office Visit Hematology/Oncology [facility] [address] [place] [id number] Nik Melo MD [address] [place] [address] [id number] 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 As needed . 0 Active [place]-3 Fatty Acids (FISH OIL) 1000 MG Capsule [...] Date Smoking Tobacco: Never Smokeless Tobacco: Never Tobacco Cessation:Counseling Given: Not Answered Alcohol Use Standard Drinks/Week Comments No 0 (1 standard drink = 0.6 oz pur e alcohol) Sex Assigned at Date Recorded Not on file Job Start Date Occupation Industry Not on file Not on file Not on file documented as of this encounter Last Filed Vital Signs Vital Sign Reading Time Taken Comments Blood Pressure 121/78 06/05/2023 8:28 AM EDT Pulse 71 06/05/2023 8:28 AM EDT Temperature 36.7 C (98 F) 06/05/2023 8:28 AM EDT Respiratory Rate 16 06/05/2023 8:28 AM EDT Oxygen Saturation 94% 06/05/2023 8:28 AM EDT Inhaled Oxygen Concentration - - Weight 73.9 kg (162 lb 14.4 oz) 06/05/2023 8:28 AM EDT Height - - Body Mass Index 28.18 05/21/2023 3:50 PM EDT documented in this encounter Progress Notes * Nik Melo MD - 06/05/2023 8:31 AM EDT Outpatient Consult Note Data Source: Patient, Epic record. Data Source: Patient, Epic record. 06/05/2023 8:31 AM Heath De La Rosa [place] [id number] 77 year old Patient Encounter: HEMATOLOGY/ONCOLOGY [facility] Cancer Diagnosis: - Metastatic esophageal cancer - laparoscopic biopsy of the peritoneal nodule which is positive formetastatic disease - Prostate cancer,pT2, Group IIA, Montcalm 3+4 Current Treatment: On ramcirumab and Taxol. Previous Treatment: - Nivolumab was added on 11/02/2021 - on Eligard for the prostate cancer Received total of 9 cycles of FOLFOX. Nivolumab was added on 11/02/2021. Last chemotherapy was on 02/08/2022. He had allergic reaction and subsequently FOLFOX chemotherapy was discontinued and continued on single agent nivolumab. Received total of 12 cycles and subsequently had disease progression.Received last dose of nivolumab on 12/27/2022 Oncologic History : 77-year-old male with past medical history significant for type 2 diabetes, hypertension, dyslipidemia, history of prostate cancer status post radiation therapy presented with complaint of generalized weakness, fatigue and exhausted with dyspnea on exertion. His hemoglobin was 8.5, WBC count and platelet counts were normal. Reticulocyte counts were 134, ferritin was 22 with normal folic acid and B12 level. Patient had upper endoscopy done on 07/15/2021 for evaluation of anemia and revealed ulcerated massinvolving 1/4 of the esophageal circumference beginning at 35 cm. There was moderate luminal narrowing of the esophagus. The mass crossed the GE junction at 40. On retroflexion, there was a large, ulcerated mass continuous with the esophageal mass. The cancer appeared to cause submucosal infiltration of approximately 1/2 of the body of the stomach. Biopsy of the masses consistent with invasive adenocarcinoma interstitial type and HER2 Kristen expression by FSH was negative. A. Stomach, antrum, biopsies: Reactive gastropathy/chemical gastritis No specialized intestinal metaplasia or dysplasia is seen B. Stomach, body, biopsies: Invasive adenocarcinoma, intestinal-type (see microscopic findings) C. Stomach, cardia, biopsies: Invasive adenocarcinoma, intestinal-type (see microscopic findings) D. Esophagus, biopsies: Invasive adenocarcinoma, intestinal-type (see microscopic findings) E. Colon, biopsies: Fragments of hyperplastic polyp Interpretation: NOT AMPLIFIED for HER2 gene status PD-L1 5% %Positive Tumor Cells Interpretation Results: Normal (intact) expression of MLH1, MSH-2, MSH-6 and PMS2 in both adenocarcinoma cells and normal tissue. MLH-1 Intact; No loss of protein PMS-2 Intact; No loss of protein MSH-2 Intact; No loss of protein MSH-6 Intact; No loss of protein PET scan was done on 07/27/2021 in shows Intensely FDG avid wall thickening of the distal esophagus, gastric fundus, and lesser gastric curvature compatible with biopsy-proven malignancy, Multiple mildly FDG avid prominent right gastric cardiac and lesser curvature lymph nodes are indeterminate (max SUV 3.9), No evidence of distant metastatic disease. Endoscopic ultrasound was done yesterday which shows hypoechoic mass and the lower 3rd of the esophagus and extend all the way to the mid stomach along the lesser curvature, there is sonographic evidence suggesting invasion into the adventitia and tumor is a beauty in the liver capsule and there are multiple in the also lymph nodes seen in the perigastric and carina hepatis area with size less than 1 cm.. Based on the endoscopic finding patient has stage T3 N2 disease. Patient was seen by Dr. Rodriguez on 08/01/2021 and he recommend neoadjuvant chemoradiation. History is also significant for prostate cancer was diagnosed in 2011 and underwent a robotic assisted radical prostatectomy on 10/30/2011. Histopathology was consistent with adenocarcinoma moderately differentiated overall Juan score was 3+4=7 with perineural invasion. Histopathology was consistent with stage T2 c with negative margin. He did well until 2015 when he had rising PSA and was treated with radiation therapy which she completed and 12/2015. In 08/2017 he again had rising PSA and was treated with the Lupron. He received Lupron from 08/2017till 05/2020 and then it was discontinued because of the side effects including loss of muscle mass, hot flashes and generalized fatigue. While he was on Lupron injection his PSA was normalized. Follow-up PSA on 11/01/2020 increased to 0.08 from less than 0.02. He was started on Eligard injection and received the 1st dose on 11/30/2020. Surgical pathology from 10/30/2011 Prostate gland with partial seminal vesicles, robotic assisted radical prostatectomy: Adenocarcinoma, moderately poorly differentiated Overall Juan score 3+4=7 High grade prostatic intraepithelial neoplasia Nodular hyperplasia Comment: MACROSCOPIC SPECIMEN TYPE: Robotic assisted radical prostatectomy Specimen is: intact VOLUME OF PROSTATE GLAND AND PARTIAL SEMINAL VESICLES (prefixation): 117 ml OTHER ORGANS: Seminal vesicle(s) MICROSCOPIC TUMOR SITE: 3 nodules ( by at least 1 mm) Nodule #1, involves: right lateral and right lateral apex Dimensions: 0.6 x 0.4 x 0.6 cm HISTOLOGIC TYPE: Adenocarcinoma HISTOLOGIC GRADE (Juan): Primary pattern is: Grade 3: single acini of variable size and separation, cribriform and papillarypatterns Secondary pattern is: Grade 3: single acini of variable size and separation, cribriform and papillary patterns Juan Score (primary + secondary) = 5-6: Moderately well differentiated Nodule #2, involves: right lateral apex and right apex Dimensions: 0.9 x 0.3 x 0.9 cm HISTOLOGIC TYPE: Adenocarcinoma HISTOLOGIC GRADE (Montcalm): Primary pattern is: Grade 3: single acini of variable size and separation, cribriform and papillarypatterns Secondary pattern is: Grade 3: single acini of variable size and separation, cribriform and papillary patterns Montcalm Score (primary + secondary) = 5-6: Moderately well differentiated Nodule #3 (dominant nodule), involves: left mid, left lateral mid, left lateral, left apex, and left lateral apex Dimensions: 2.5 x 1.5 x 2.1 cm HISTOLOGIC TYPE: Adenocarcinoma HISTOLOGIC GRADE (Montcalm): Primary pattern is: Grade 3: single acini of variable size and separation, cribriform and papillarypatterns Secondary pattern is: Grade 4: irregular masses of acini and fused epithelium, can show clear cells Montcalm Score (primary + secondary) = 7: Moderately poorly differentiated Juan Score (primary + secondary) = 8-10: Poorly differentiated TUMOR QUANTITATION: Proportion of prostate involved by tumor = 3.3 % Estimated tumor volume (% involved by tumor x prefixation vol) = 3.9 ml EXTRAPROSTATIC EXTENSION: Absent SEMINAL VESICLE INVASION: Absent PERINEURAL INVASION: Present BLOOD/LYMPHATIC VESSEL INVASION: Absent EXTENT OF INVASION: pT2c: Tumor involves both lobes REGIONAL LYMPH NODES: NX: Cannot be assessed MARGINS: Margins uninvolved by tumor Benign prostatic acini are not present at margins ADDITIONAL PATHOLOGIC FINDINGS: High-grade prostatic intraepithelial neoplasia (PIN) Nodular hyperplasia He denies smoking or drinking. Family history significant for mother was diagnosed of breast cancer and father was diagnosed of colon cancer. On 08/10/2021 he underwent laparoscopy and biopsy of the peritoneal nodule and pathology is consistent with metastatic gastric adenocarcinoma. Peritoneal nodules, biopsies: Metastatic gastric adenocarcinoma. A. Peritoneal washing: Category: Benign. Final Interpretation: Benign mesothelial cells. He was admitted to the hospital on 2022 with complaint of generalized weakness, chest pain. Hemoglobin was 8.5. Stool that was FOBT positive. Upper endoscopy which shows malignant gastric tumorfound just above the GE junction and cardia biopsieswere taken and pathology was consistent with poorly differentiated in carcinoma. FINAL DIAGNOSIS A. Stomach, incisura (biopsy): - Poorly differentiated adenocarcinoma is seen. - The adjacent overlying benign gastric epithelium fails to reveal atrophy or intestinal metaplasia. - An immunohistochemical stain for the Helicobacter pylori organisms is negative. B. Stomach, "gastric mass biopsy" (biopsy): - A moderate to poorly differentiated adenocarcinoma is seen. Patient had a PET scan done on 01/02/2023 which unfortunately shows new metabolically activity in the initial site of the disease within the distal esophagus, gastroesophageal junction and lesser curvature of the stomach, new metabolically active lymph nodes above and below diaphragm and new metabolically active mass within the hepatic segment 2 suspicious for metastasis. Interval History: Clinically he is feeling better and stronger without any new symptoms. His appetite is good withoutany difficulty in swallowing. Denies any nausea, vomiting, abdominal pain, change in the bowel habits, bleeding, bruising. LABS/IMAGING: Results for orders placed or performed in visit on 06/05/23 COMPREHENSIVE METABOLIC PANEL Result Value Ref Range BUN 19 6 - 20 mg/dL Creatinine 1.5 (H) 0.6 - 1.2 mg/dL Estimated Glomerular Filtration Rate 47 (L) >=60 mL/min Sodium 139 135 - 146 mmol/L Potassium 4.3 3.5 - 5.1 mmol/L Chloride 104 98 - 107 mmol/L CO2 25 22 - 32 mmol/L Anion Gap 10 7 - 15 mmol/L Glucose 155 (H) 70 - 120 mg/dL Albumin 3.9 3.8 - 5.0 g/dL AST 13 10 - 50 U/L Alkaline Phosphatase 61 35 - 130 U/L Bilirubin, Total 0.6 <=1.2 mg/dL Calcium 9.4 8.4 - 10.2 mg/dL Protein 6.5 6.0 - 8.3 g/dL ALT 6 (L) 10 - 50 U/L CBC Result Value Ref Range WBC 4.35 4.00 - 10.80 K/uL RBC 3.50 4.50 - 5.25 M/uL HGB 9.7 (L) 14.0 - 16.8 g/dL HCT 32.6 (L) 40.0 - 48.4 % MCV 93.1 82.0 - 99.5 fL MCH 27.7 27.0 - 34.0 pg MCHC 29.8 32.0 - 36.0 g/dL RDW 20.5 11.5 - 15.5 % PLT 124 (L) 140 - 400 K/uL MPV 8.8 6.6 - 11.1 fL DIFFERENTIAL, AUTOMATED Result Value Ref Range WBC 4.35 4.00 - 10.80 K/uL Neutrophils % 63.5 40.0 - 75.0 % Lymphocytes % 27.8 18.0 - 42.0 % Monocytes % 6.4 1.0 - 11.0 % Eosinophils % 1.8 0.0 - 6.0 % Basophils % 0.5 0.0 - 2.0 % Absolute Neutrophils 2.76 1.80 - 7.70 K/uL Absolute Lymphocytes 1.21 1.00 - 4.80 K/ul Absolute Monocytes 0.28 0.00 - 1.10 K/uL Absolute Eosinophils 0.08 0.00 - 0.70 K/uL Absolute Basophils 0.02 0.00 - 0.20 K/uL Blood tests are stable with stable creatinine. Follow-up PET scan was done on 05/28/2023 which shows positive response with decrease with persistent activity in the distal esophagus, gastroesophageal junction and gastric incisura and resolved or decreased lymphadenopathy in the mediastinum, upper abdomen and retroperitoneum. REVIEW OF SYSTEMS: General: No Fever, chills, night sweats, or weight loss. HEENT: No change in visual acuity, blurred or double vision. No epistaxis, facial pain, nasal discharge or change in hearing. Denies dysphagia, no muscosal ulceration, or sores noted. Cardiovascular: No chest pain, WARNER, or palpitations Respiratory: No shortness of breath, cough, hemoptysis, or pleuritic chest pain Gastrointestinal: No abdominal pain, nausea, vomiting, diarrhea, rectal pain or bleeding Genitourinary: Denies Hematuria or dysuria Musculoskeletal: Generalized weakness Skin: No skin rash or lesions noted Neurologic: No numbness, weakness, neuropathic pain or change in cognitive function Psychiatric: No vegetative signs of depression Endocrine: No symptoms of hypothyroidism or hyperglycemia Hematologic: No bleeding or lymph nodes noted As mentioned above, all of the systems were reviewed in full and are unremarkable. Past Medical History: Diagnosis Date Actinic keratosis Adjustment disorder with depressed mood Anemia Benign neoplasm of colon 03/07/2013 path shows adenomatous polyp repeat in 5 years Calculus of kidney Carcinoma in situ of prostate Chronic kidney disease Cyst of kidney, acquired DKA, type 2 (HCC) History of colonoscopy HTN, goal to be determined Hypercholesterolemia Hypertension Idiopathic progressive neuropathy Obesity Osteoporosis Polyarthritis Prostate CA (HCC) Prostate cancer (HCC) Radiation effect POST RADIATION Tinea unguium Ventral hernia without obstruction or gangrene Current Outpatient Medications Medication Sig Dispense Refill LISINOPRIL 20 MG PO TABS Take by mouth 2 times a day. METFORMIN ER 500 MG PO TB24 Take 1 Tablet by mouth in the morning and 1 Tablet before bedtime. VITAMIN B-12 1000 MCG PO TABS Take 0.5 Tablets by mouth. ATORVASTATIN CALCIUM 20 MG PO TABS Take 2 Tablets by mouth. Cholecalciferol (VITAMIN D-3) 1000 units Capsule Take 1 Capsule by mouth in the morning. Aspirin 81 MG Tablet Take 1 Tablet by mouth in the morning. meclizine (ANTIVERT) 12.5 MG Tablet Take 1 Tablet by mouth in the morning and 1 Tablet before bedtime. As needed . [place]-3 Fatty Acids (FISH OIL) 1000 MG Capsule Take 1 Capsule by mouth in the morning. 2 capsules by mouth twice daily . Alogliptin Benzoate 12.5 MG TABS Take 12.5 mg by mouth daily. Ferrous Sulfate 325 (65 Fe) MG Oral Tablet (Feosol) TAKE ONE TABLET BY MOUTH EVERY 48 HOURS SAME ASIRON Vitamin C 500 MG Oral Capsule Take by mouth. Polyethylene Glycol 3350 17 GM/SCOOP Oral Powder Take 17 g by mouth in the morning. Sucralfate 1 GM Oral Tablet (Carafate) Take 1 Tablet by mouth in the morning and 1 Tablet at noon and 1 Tablet in the evening and 1 Tablet before bedtime. Omeprazole 40 MG Oral Capsule Delayed Release (PriLOSEC) Take 1 Capsule by mouth in the morning. Ondansetron HCl 8 MG Oral Tablet Take 1 Tablet by mouth every 8 hours as needed for Nausea. 60 Tablet 3 Prochlorperazine Maleate 10 MG Oral Tablet (Compazine) Take 1 Tablet by mouth every 6 hours as needed for Nausea. 60 Tablet 2 Dexamethasone 4 MG Oral Tablet (Decadron) Take 12mg (3 tablets) the night before and morning of each taxol treatment 54 Tablet 1 traMADol HCl 50 MG Oral Tablet (Ultram) Take 1 Tablet by mouth every 6 hours as needed for Pain, Moderate. 30 Tablet 0 Bisacodyl 5 MG Oral Tablet Delayed Release (Dulcolax) Take 1 Tablet by mouth daily as needed for Constipation. Dronabinol 2.5 MG Oral Capsule (Marinol) Take 1 Capsule by mouth in the morning and 1 Capsule before bedtime. 60 Capsule 2 No current facility-administered medications for this visit. Social History Tobacco Use Smoking status: Never Smokeless tobacco: Never Vaping Use Vaping Use: Never used Substance Use Topics Alcohol use: No Drug use: No Review of patient's allergies indicates: Allergen Reactions Amlodipine dizziness Codeine Sulfate Other (Please comment) hyperactivity Hctz [Hydrochlorothiazide] hypercalcemia Oxaliplatin Infusion related reaction PHYSICAL EXAMINATION: General Appearance: Healthy appearing patient in no acute distress BP 121/78 (BP Site: Left Arm, BP Position: Sitting, BP Cuff Size: Regular) | Pulse 71 | Temp 36.7 C (98 F) (Tympanic) | Resp 16 | Wt 73.9 kg (162 lb 14.4 oz) | SpO2 94% | BMI 28.18 kg/m | BSA 1.82 m Vitals reviewed. HEENT: No oral or pharyngeal masses, ulceration or thrush noted, no sinus tenderness. Neck is supple with no thyromegaly or JVD noted. Lymph Nodes: No lymphadenopathy noted in the occipital, pre and post auricular, cervical, supra andinfraclavicular, axillary, epitrochlear, inguinal, and popliteal region. Lungs/Thorax: Clear to auscultation, no accessory muscles of respiration being used. Heart: Regular rate and rhythm, normal S1, S2 Abdomen: Soft, nontender, bowel sounds present, no appreciable hepatosplenomegaly, no palpable masses Extremeties: Good pulses bilaterally, no peripheral edema. Skin: Normal skin tone with no rash, petechiae, ecchymosis noted. Musculoskeletal: No pain on palpation over bony prominence, no edema, no evidence of gout, no jointor bony deformity ASSESSMENT: 77-year-old male with history of prostate cancer and presented with complain of generalized weakness and fatigue and had low hemoglobin. He had endoscopy done which shows esophageal mass extending tothe stomach. Biopsies consistent with adenocarcinoma and HER2/kristen expression was negative. Patient also had endoscopic ultrasound and PET scan done shows mass involving the distal esophagus going into the stomach with positive lymph node. He had laparoscopic biopsy of the peritoneal nodule which is positive for metastatic disease. Patient was started on FOLFOX with excellent response on the follow-up PET scan. PDL1 expression was 5%. Nivolumab 240 mg was added on 11/02/2021 on every 2 weeks basis with FOLFOX. He received total of 9 cycles of FOLFOX. Received last chemotherapy on 02/08/2022. During the last cycle of chemotherapy he had severe allergic reaction to oxaliplatin. After this episode he decided against chemotherapy and agreed to continue nivolumab only. He was admitted to the hospital with complaint of generalized weakness and chest pain and was foundto have low hemoglobin. He had upper endoscopy done which shows recurrent disease and biopsy was positive for poorly differentiated adenocarcinoma. PET scan was done which revealed recurrent disease with the lymphadenopathy and possible liver metastasis. Patient in has recurrent/metastatic disease after achieving complete remission with the treatment. Currently he is receiving second-line chemotherapy including combination of Taxol and Cyramza. Clinically he is feeling better and stronger without any new symptoms or complain. He is toleratingcurrent dose of Taxol and Cyramza very well. Blood counts are in stable range. Follow-up PET scan showed good response. Discussed with the patient and sister about the diagnosis and reviewed all the available blood tests and PET scan finding with them. We will continue his current treatment. PLAN: Continue current treatment including combination of Taxol and Cyramza. He will return to clinic forfollow-up in 4 weeks. The patient voiced understanding of all of the above. All questions and concerns were addressed in an apparently satisfactory manner. Nik Melo MD (This note was completed using the dictation program Fluency Direct. As such, there may be misspellings, word substitutions, or other variations that should not change the essence of the clinical content of this encounter note. If there is need for further clarification, please direct questions to me.) documented in this encounter Nursing Notes * Venecia Carlin CMA - 06/05/2023 8:29 AM EDT Patient identifed by name and birthdate Do you have any concerns about pain management for today's visit? No Living Will or Advance Directive for Health Care as noted on the problem list. [facility] is a way you can talk to your provider on line through e-mail. Would you like to sign up? I can activate it for you? ALREADY ACTIVE Filed Vitals: 06/05/23 0828 BP: 121/78 Pulse: 71 Resp: 16 Temp: 36.7 C (98 F) TempSrc: Tympanic SpO2: 94% Weight: 73.9 kg (162 lb 14.4 oz) Patient was instructed to not get up on the exam table/exam chair until directed and assisted by their provider; patient is to remain seated in the chair/ wheelchair/ exam table/ exam chair for fall prevention and safety reasons. Patient is aware to have assistance to step down off exam table/exam chair with personnel. Patient voiced full comprehension of instructions. documented in this encounter Plan of Treatment Upcoming Encounters Date Type Specialty Care Team Description 06/06/2023 Hem/Onc Treatment H[facility]ology [facility] Chair [address] Hem [address] [place] [address] 08/14/2023 Office Visit Gastroenterology Roz Tracey MD [address] [place] [address] 08/21/2023 Procedure Only Urology Cm [...] this encounter Medical Devices Implanted Type Area Hotel Or Motel Receptionist Device Identifier Shelf Expiration Date Model / Serial / Lot Cath Power Port 6fr Clearvue - [id number] Implanted:Qty : 1 on 08/10/2021 by Alexander Rodriguez MD at OR [facility] [place] Left: Subclavian CR BARD : PERIPHERAL VASCULAR 08/21/2021 [id number] / / documented as of this encounter Visit Diagnoses Diagnosis 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 Care Teams Legal Service Specialist Relationship Specialty Start Date End Date Hortencia Leal [facility]-C [address] [facility] [address] P[facility] - General Physician Furniture Repair Technician 02/08/18 documented as of this encounter
--- OUTSIDE RECORDS SUMMARY | 2023-06-27 07:31 | External Medical Summary ---
Author Name Unknown Address Unknown Organization [id number]:[facility] [place] [address] Laboratory Report Ordering Provider Test Date Status SHAY CH 06/12/2023 09:13:28 Final Observation Date Value Abnormality Reference (Units ) Status RBC, Urine 06/12/2023 09:13:28 6-9 Abnormal 0-2 (/HPF) Final WBC, Urine 06/12/2023 09:13:28 0-2 0-2 (/HPF) Final Bacteria [#/area] in Urine sediment by Microscopy high power field 06/12/2023 09:13:28 0-25 0-25 (/HPF) Final Hyaline casts, Urine 06/12/2023 09:13:28 5-9 Abnormal None (/LPF) Final Performing Location [facility] [place] [place] [address]
--- OUTSIDE RECORDS SUMMARY | 2023-06-27 07:31 | External Medical Summary | Summary of Care ---
Author Name Unknown Organization [facility] Address [address] [facility] [place] [address] Phone [phone] Care Team Providers Care Principal Technologist Name Role Phone Hortencia Leal PA-C Primary Care Provid er Reason for Visit * Reason Onset Date Comments Appointment Canceled 06/06/2023 Encounter Details Date Type Department Care Team Description 06/06/2023 Telephone Hematology/Oncology [place] Maggie Castañeda [address] [facility] [place] [address] Nik Melo MD [address] [facility] [place] [address] Appointment Canceled Allergies Active Allergy Reactions Severity Noted Date Comments Amlodipine 11/02/2020 dizziness Codeine Sulfate Other (Please comment) 10/26/19 11 hyperactivity Hydrochlorothiazide 11/02/2020 hypercalcemia Oxaliplatin 02/09/2022 Infusion related reaction documented as of this encounter (statuses as of 06/06/2023) Medications Medication Sig Dispensed Refills Start Date [...] before bedtime. As needed . 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 * Telephone Encounter - Venita Byers RN - 06/06/2023 10:31 AM EDT Called patient. He states that he is having nausea so doesn't want to come for treatment. States that he is still drinking fluids, has not vomited. Has not taken zofran or compazine. Advised patient to take antiemetics as needed and to let us know if these do not help with his nausea. Patient would like to reschedule for next week. Scheduling: please call patient to reschedule chemotherapy for next week. Patient will need repeat labs "CBCd, CMP, UA" either day of or day prior to treatment. Thanks! * Telephone Encounter - TANI Johnson - 06/06/2023 10:08 AM EDT Nursing/-patient called in and canceled his treatment for today. Please advise on when to reschedule. Patient states that he is feeling very ill. Please advise. documented in this encounter Plan of Treatment Upcoming Encounters Date Type Specialty Care Team Description 06/12/2023 Laboratory Laboratory [place], Lab Scenery [address] [place] [address] 06/13/2023 Hem/Onc Treatment Hematology Oncology [place], Chair 1 Hem Onc Scenery [address] [place] [address] 08/14/2023 Office Visit Gastroenterology Roz Tracey MD [address] [place] [address] 08/21/2023 Procedure Only Urology Cm Rhodes MD [address] [facility] [address] [place] [address] Health Maintenance Due [...] this encounter Medical Devices Implanted Type Area Rail Doweling Machine Operator Device Identifier Shelf Expiration Date Model / Serial / Lot Cath Power Port 6fr Clearvue - [id number] Implanted:Qty : 1 on 08/10/2021 [place] [facility] [place] Subclavian CR BARD : PERIPHERAL VASCULAR 08/21/2021 [id number] / / documented as of this encounter [...] and were consensually agreed upon. Care Teams Principal Technologist Relationship Specialty Start Date End Date Hortencia Leal PA-C [address] [place] [address] PCP - General Physician Drum Sealer 02/08/18 documented as of this encounter
--- OUTSIDE RECORDS SUMMARY | 2023-06-27 07:31 | External Medical Summary ---
Author Name Unknown Address Unknown Organization [id number]:[facility] [place] [address] Laboratory Report Ordering Provider Test Date Status SHAY CH 06/12/2023 09:13:28 Final Observation Date Value Abnormality Reference (Units ) Status BUN 06/12/2023 09:13:28 25 Above high normal 6-20 (mg/dL) Final Creatinine 06/12/2023 09:13:28 1.9 Above high normal 0.6-1.2 (mg/dL) Final Glomerular filtration rate/1.73 sq M.predicted [Volume Rate/Area] in Serum, Plasma or Blood by Creatinine-based formula (CKD-EPI) 06/12/2023 09:13:28 37 Below low normal >=60 (mL/min) Final Performing Location [facility] [place] [address]
--- OUTSIDE RECORDS SUMMARY | 2023-06-27 07:31 | External Medical Summary ---
Author Name Unknown Address Unknown Organization [id number]:[facility] [place] [address] Laboratory Report Ordering Provider Test Date Status SHAY CH 06/05/2023 07:52:29 Final Observation Date Value Abnormality Reference (Units ) Status BUN 06/05/2023 07:52:29 19 6-20 (mg/dL) Final Creatinine 06/05/2023 07:52:29 1.5 Above high normal 0.6-1.2 (mg/dL) Final Glomerular filtration rate/1.73 sq M.predicted [Volume Rate/Area] in Serum, Plasma or Blood by Creatinine-based formula (CKD-EPI) 06/05/2023 07:52:29 47 Below low normal >=60 (mL/min) Final Performing Location [facility] [place] [address]
--- OUTSIDE RECORDS SUMMARY | 2023-06-27 07:31 | External Medical Summary ---
Author Name Unknown Address Unknown Organization [id number][facility] [place] [address] Laboratory Report Ordering Provider Test Date Status SHAY CH 06/05/2023 07:52:29 Final Observation Date Value Abnormality Reference (Units ) Status SYNC LEUKOCYTES IN BLOOD BY AUTOMATED COUNT 06/05/2023 07:52:29 4.35 4.00-10.80 (K/uL) Final Segs 06/05/2023 07:52:29 63.5 40.0-75.0 (%) Final Lymphs % 06/05/2023 07:52:29 27.8 18.0-42.0 (%) Final Monos 06/05/2023 07:52:29 6.4 1.0-11.0 (%) Final Eosinophils 06/05/2023 07:52:29 1.8 0.0-6.0 (%) Final Basos 06/05/2023 07:52:29 0.5 0.0-2.0 (%) Final Absolute Segs 06/05/2023 07:52:29 2.76 1.80-7.70 (K/uL) Final Lymphs, absolute 06/05/2023 07:52:29 1.21 1.00-4.80 (K/ul) Final Monos, Abs 06/05/2023 07:52:29 0.28 0.00-1.10 (K/uL) Final Eos, Abs 06/05/2023 07:52:29 0.08 0.00-0.70 (K/uL) Final Basos, Abs 06/05/2023 07:52:29 0.02 0.00-0.20 (K/uL) Final Performing Location [facility] [place] [address]
--- OUTSIDE RECORDS SUMMARY | 2023-06-27 07:31 | External Medical Summary ---
Author Name Unknown Address Unknown Organization [id number] [place] [address] [facility] [address] Laboratory Report Ordering Provider Test Date Status SHAY CH 06/05/2023 07:57:52 Final Observation Date Value Abnormality Reference (Units ) Status Color of Urine by Auto 06/05/2023 07:57:52 Yellow Colorless, Light Yellow, Yellow, Dark Yellow Final Clarity, Urine 06/05/2023 07:57:52 Clear Clear Final Glucose [Mass/volume] in Urine by Automated test strip 06/05/2023 07:57:52 Negative Negative (mg/dL) Final Bilirubin.total [Presence] in Urine by Automated test strip 06/05/2023 07:57:52 Negative Negative Final Ketones [Mass/volume] in Urine by Automated test strip 06/05/2023 07:57:52 Negative Negative (mg/dL) Final Specific gravity, Urine 06/05/2023 07:57:52 1.016 1.003-1.030 Final Hemoglobin [Presence] in Urine by Automated test strip 06/05/2023 07:57:52 Negative Negative Final pH, Urine 06/05/2023 07:57:52 6.0 5.0-7.5 (Units) Final Protein [Mass/volume] in Urine by Automated test strip 06/05/2023 07:57:52 30 Abnormal Negative (mg/dL) Final Urobilinogen [Mass/volume] in Urine by Automated test strip 06/05/2023 07:57:52 Normal Normal (mg/dL) Final Nitrite [Presence] in Urine by Automated test strip 06/05/2023 07:57:52 Negative Negative Final Leukocyte esterase [Presence] in Urine by Automated test strip 06/05/2023 07:57:52 Negative Negative Final RBC, Urine 06/05/2023 07:57:52 0-2 0-2 (/HPF) Final WBC, Urine 06/05/2023 07:57:52 3-5 Abnormal 0-2 (/HPF) Final Bacteria [#/area] in Urine sediment by Microscopy high power field 06/05/2023 07:57:52 0-25 0-25 (/HPF) Final Hyaline casts, Urine 06/05/2023 07:57:52 1-4 Abnormal None (/LPF) Final Performing Location [facility] [place] [address]. [facility] [address]
--- OUTSIDE RECORDS SUMMARY | 2023-06-27 07:31 | External Medical Summary | Summary of Care ---
Author Name Unknown Organization [facility] Address [address] [facility] [place] [address] Phone [phone] Care Team Providers Care Defensive Driving Instructor Name Role Phone Hortencia Leal PA-C Primary Care Provid er Reason for Visit * Reason Comments Outpatient Testing Encounter Details Date Type Department Care Team Description 06/05/2023 Laboratory Laboratory [facility] [place] [address] [place] [address] [facility] Lab [facility] [address] [facility] [place] [address] 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 [...] before bedtime. As needed . 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) 06/05/2023 7:52 AM EDT COMPREHENSIVE METABOLIC PANEL Lab STAT 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) 06/05/2023 7:52 AM EDT TSH WITH FREE T4 IF INDICATED Lab STAT Encounter for adjustment and management of vascular access device 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) Prostate cancer (HCC) Encounter for long-term (current) use of medications 06/05/2023 7:52 AM EDT CBC Lab STAT 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) 06/05/2023 7:52 AM EDT DIFFERENTIAL, AUTOMATED Lab STAT 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 Care Teams Defensive Driving Instructor Relationship Specialty Start Date End Date Hortencia Leal PA-C [address] [facility] [place] [phone] PCP - General Physician Scientist Propagator 02/08/18 documented as of this encounter
--- OUTSIDE RECORDS SUMMARY | 2023-06-27 07:31 | External Medical Summary | Summary of Care ---
Author Name Unknown Organization [facility] Address [address] [facility] [place] [address] Phone [phone] Care Team Providers Care Sample Sewer Name Role Phone Hortencia Leal PA-C Primary Care Provid er Reason for Visit * Reason Onset Date Comments Appointment Canceled 06/06/2023 Encounter Details Date Type Department Care Team Description 06/06/2023 Telephone Hematology/Oncology [place] Maggie Castañeda 200 [facility] [place] [address] Nik Melo MD 200 [facility] [place] [address] Appointment Canceled Allergies Active Allergy Reactions Severity [...] before bedtime. As needed . 0 Active [place]-3 Fatty Acids (FISH OIL) 1000 MG Capsule [...] encounter Miscellaneous Notes * Telephone Encounter - Venita Byers RN [...] Encounters Date Type Specialty Care Team Description 08/14/2023 Office Visit Gastroenterology Roz Tracey MD [address] [place] [address] 08/21/2023 Procedure Only Urology Cm [...] this encounter Medical Devices Implanted Type Area Crime Lab Technician Device Identifier Shelf Expiration Date Model / Serial / Lot Cath Power Port 6fr Clearvue - [id number] Implanted:Qty : 1 on 08/10/2021 by Alexander Rodriguez MD at [facility] Left: Subclavian CR BARD : PERIPHERAL VASCULAR 08/21/2021 [id number] / / documented as of this encounter [...] and were consensually agreed upon. Care Teams Sample Sewer Relationship Specialty Start Date End Date Hortencia Leal PA-C [address] [facility] [place] [address] PCP - General Physician Buffer Inflated Pad 02/08/18 documented as of this encounter
--- OUTSIDE RECORDS SUMMARY | 2023-06-27 07:31 | External Medical Summary ---
Author Name Unknown Address Unknown Organization [id number]:[facility] [place] [address] [address] Laboratory Report Ordering Provider Test Date Status SHAY CH 06/05/2023 07:52:29 Final Observation Date Value Abnormality Reference (Units ) Status TSH 06/05/2023 07:52:29 2.29 0.27-4.20 (uIU/mL) Final Performing Location [facility] [place] - [address] [place] [address]
--- OUTSIDE RECORDS SUMMARY | 2023-06-27 07:31 | External Medical Summary ---
Author Name Unknown Address Unknown Organization K09:[facility] [place] [address] Laboratory Report Ordering Provider Test Date Status SHAY CH 06/05/2023 07:52:29 Final Observation Date Value Abnormality Reference (Units ) Status WBC, Total 06/05/2023 07:52:29 4.35 4.00-10.8 0 (K/uL) Final RBC 06/05/2023 07:52:29 3.50 4.50-5.25 (M/uL) Final Hemoglobin 06/05/2023 07:52:29 9.7 Below low normal 14 .0-16.8 (g/dL) Final HCT 06/05/2023 07:52:29 32.6 Below low normal 40. 0-48.4 (%) Final MCV 06/05/2023 07:52:29 93.1 82.0-99.5 (fL) Final MCH 06/05/2023 07:52:29 27.7 27.0-34.0 (pg) Final MCHC 06/05/2023 07:52:29 29.8 32.0-36.0 (g/dL) Final RDW 06/05/2023 07:52:29 20.5 11.5-15.5 (%) Final Platelets 06/05/2023 07:52:29 124 Below low normal 140 -400 (K/uL) Final MPV 06/05/2023 07:52:29 8.8 6.6-11.1 ( fL) Final Performing Location [facility] [place] [address]
--- OUTSIDE RECORDS SUMMARY | 2023-06-27 07:31 | External Medical Summary | Summary of Care ---
Author Name Unknown Organization [facility] Address [address] [facility] [place] [address] Phone [phone] Care Team Providers Care Bottom Loader Name Role Phone Hortencia Leal PA-C Primary Care Provid er Reason for Visit * Reason Onset Date Comments Appointment Canceled 06/06/2023 Encounter Details Date Type Department Care Team Description 06/06/2023 Telephone Hematology/Oncology [place] Maggie Castañeda 200 [facility] [place] [address] Nik Melo MD 200 [facility] [place] [address] Appointment Canceled Allergies Active Allergy Reactions Severity [...] before bedtime. As needed . 0 Active [place]-3 Fatty Acids (FISH OIL) 1000 MG Capsule [...] Gastroenterology Roz Tracey MD [address] [place] [address] 08/21/2023 Procedure Only Urology Cm Rhodes MD [address] [place] [address] [place] [address] Health Maintenance Due Date Last Done Comments [...] this encounter Medical Devices Implanted Type Area Die Maker Stamping Device Identifier Shelf Expiration Date Model / Serial / Lot Cath Power Port 6fr Clearvue - [id number] Implanted:Qty : 1 on 08/10/2021 by Alexander Rodriguez MD [place] [facility] [place]: Subclavian CR BARD : PERIPHERAL VASCULAR 08/21/2021 [id number] / / documented as of this encounter [...] and were consensually agreed upon. Care Teams Bottom Loader Relationship Specialty Start Date End Date Hortencia Leal PA-C [address] [facility] [address] PCP - General Physician Yard Person 02/08/18 documented as of this encounter
--- OUTSIDE RECORDS SUMMARY | 2023-06-27 07:31 | External Medical Summary | Summary of Care ---
Author Name Unknown Organization [facility] Address [address] [facility] [place] [address] Phone [phone] Care Team Providers Care New Car Inspector Name Role Phone Hortencia Leal PA-C Primary Care Provid er Reason for Visit * Reason Onset Date Comments Appointment 06/06/2023 Dr. Melo Encounter Details Date Type Department Care Team Description 06/06[facility]2023 [facility] [address] [place] [address] Nik Melo MD 200 [facility] [place] [address] Appointment (Dr. Melo) Allergies Active Allergy Reactions Severity Noted Date [...] before bedtime. As needed . 0 Active [place]-3 Fatty Acids (FISH OIL) 1000 MG Capsule [...] Telephone Encounter - TANI Johnson - 06/06/2023 10:11 AM EDT Sent message to nursing to advise. * Telephone Encounter - TANI Alva - 06/06/2023 10:07 AM EDT Pt calling to advise that he is feeling ill and cannot make his treatment appt today; please call to yanna, documented in this encounter Plan of Treatment Upcoming Encounters Date Type Specialty Care Team Description 08/14/2023 Office Visit Gastroenterology Roz Tracey MD [address] [place] [address] 08/21/2023 Procedure Only Urology Cm Rhodes MD [...] this encounter Medical Devices Implanted Type Area Financial Analyst Device Identifier Shelf Expiration Date Model / Serial / Lot Cath Power Port 6fr Clearvue - [id number] Implanted:Qty : 1 on 08/10/2021 by Alexander Rodriguez MD at [facility] Left: Subclavian CR BARD : PERIPHERAL VASCULAR 08/21/2021 [id number] / / documented as of this encounter [...] and were consensually agreed upon. Care Teams New Car Inspector Relationship Specialty Start Date End Date Hortencia Leal PA-C [address] [place] [address] PCP - General Physician Enterprise Business Architect 02/08/18 documented as of this encounter
--- OUTSIDE RECORDS SUMMARY | 2023-06-27 07:32 | External Medical Summary | Summary of Care ---
Author Name Unknown Organization [facility] Address [address] [facility] [place] [address] Phone [phone] Care Team Providers Care Aluminum Siding Applicator Name Role Phone Hortencia Leal PA-C Primary Care Provid er Reason for Visit * Reason Onset Date Comments Precert Approved 05/22/2023 Dronabinol Encounter Details Date Type Department Care Team Description 05/22/2023 Telephone Gastroenterology, [facility] [address] [place] [address] Roz Tracey MD [address] [place] [address] Precert Approved (Dronabinol) Allergies Active Allergy Reactions Severity Noted Date Comments Amlodipine 11/02/2020 dizziness Codeine Sulfate Other (Please comment) 10/26/19 11 hyperactivity Hydrochlorothiazide 11/02/2020 hypercalcemia Oxaliplatin 02/09/2022 Infusion related reaction documented as of this encounter (statuses as of 05/29/2023) Medications Medication Sig Dispensed Refills Start Date [...] before bedtime. As needed . 0 Active [place]-3 Fatty Acids (FISH OIL) 1000 MG [...] the morning and 1 Capsule before bedtime. 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 - Oral Day Supply: 28 PER 14 DAYS Did you receive insurance information from outside the chart? No, received insurance information within the chart Valid auth start date: 05/28/2023 Valid auth end date: 05/28/2024 * Telephone Encounter - Srinivas Daniels RN - 05/22/2023 11:02 AM EDT Nursing- please forward to precert once Dr. Go completes OV note. Gastro Pre-Cert Request Specialty Medication: No. 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 Site of care: Self-administered - route pre-cert request to [id number] Office Information: Prescriber: Roz Tracey MD documented in this encounter Plan of Treatment Upcoming Encounters Date Type Specialty Care Team Description 05/30/2023 Laboratory Laboratory [place], Lab Scenery 200 [facility] [place] [address] 05/31/2023 Hem/Onc Treatment Hematology Oncology [place], Chair 10 Hem Onc Scenery [address] [facility] [address] 06/05/2023 Office Visit Hematology Oncology Nik Melo MD [address] [place] [address] 08/14/2023 Office Visit Gastroenterology Roz Tracey MD [...] this encounter Medical Devices Implanted Type Area Nuclear Technologist Device Identifier Shelf Expiration Date Model / Serial / Lot Cath Power Port 6fr Clearvue - [id number] Implanted:Qty : 1 on 08/10/2021 by Alexander Rodriguez MD [place] [facility] [place]: Subclavian CR BARD : PERIPHERAL VASCULAR 08/21/2021 [id number] / / documented as of this encounter [...] and were consensually agreed upon. Care Teams Aluminum Siding Applicator Relationship Specialty Start Date End Date Hortencia Leal PA-C [address] [facility], [place] [address] PCP - General Physician Black Off Worker 02/08/18 documented as of this encounter
--- OUTSIDE RECORDS SUMMARY | 2023-06-27 07:32 | External Medical Summary ---
Author Name Unknown Address Unknown Organization K01[place] [place] [address] [place] [address] Laboratory Report Ordering Provider Test Date Status SHAY CH 05/30/2023 09:23:32 Final Observation Date Value Abnormality Reference (Units ) Status TSH 05/30/2023 09:23:32 1.98 0.27-4.20 (uIU/mL) Final Performing Location [facility] [place] [address] [place] [address]
--- OUTSIDE RECORDS SUMMARY | 2023-06-27 07:32 | External Medical Summary | Summary of Care ---
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) Procedures MN INJECTION, RAMUCIRUMAB MN PACLITAXEL INJECTION MN PALONOSETRON HCL Nik Melo MD [address] [place] [address] Anc Hem/Onc Scene [place] [address] [place] [address] Referral ID Status Reason Start Date Expiration Date V isits Requested Visits Authorized [id number] Authorized 01/07/2023 09/21/[phone] Encounter Details Date Type Department Care Team Description 05/31/2023 Hem/Onc Treatment Hematology/Oncology Treatment, [place] [address] [place] [address] Maddy, Chair 6 Hem Onc Scenery [address] [place] [address] [address] 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 As needed . 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 documented as of this encounter (statuses as of 05/31/2023) Immunizations Name Administration Dates Next Due COVID-19 [...] Sign Reading Time Taken Comments Blood Pressure 132/80 05/31/2023 1:30 PM EDT Pulse 60 05/31/2023 1:30 PM EDT Temperature 36 C (96.8 F) 05/31/2023 1:30 PM EDT Respiratory Rate 18 05/31/2023 1:30 PM EDT Oxygen Saturation 98% 05/31/2023 1:30 PM EDT Inhaled Oxygen Concentration - - Weight 74.5 kg (164 lb 3.2 oz) 05/31/2023 1:30 P M EDT Height - - Body Mass Index 28.41 05/21/2023 3:50 PM EDT documented in this encounter Nursing Notes * Paty Langford RN - 05/31/2023 4:03 PM EDT Goals: Patient will remain free from injury. Possible barriers to meeting goals: ambulating with IV pole Stability of the patient: Moderately stable - low risk of patient condition declining or worsening Summary regarding today's goals: Met: pt remained free of harm today Functional status at today's visit: Restricted in physically strenuous activity but ambulatory and able to carry out work on a light orsedentary nature, e.g. light house work, office work The drug name, dose, infusion volume, rate and route of administration, expiration date and time, appearance and physical integrity of the drug and rate set on the pump and sequencing of drug administration (as applicable) were verified by me and second sign-in RN. Patient was assessed for symptoms or adverse side effects during treatment. Patient tolerated treatment well without any acute issues or problems. Patient left facility in stable condition and denied any further needs. * Paty Langford RN - 05/31/2023 2:57 PM EDT Chair 12. Port accessed by Chel Pickens RN. Patient had labs completed yesterday, WNL for tx today. Patient states he is feeling well today just has always been feeling tired with this treatment. Patient was feeling dizzy/lightheaded/had vertigo last week and did not get treatment. Patient is feeling much better since then. Chemo agents Taxol Appetite fair Nausea/Vomiting did not have any nausea Diarrhea no Constipation no Mucositis no Fatigue yes, ongoing, see above Bleeding no Infection no Rash no Numbness tingling no Pain no Radiation no ABN Labs WNL for tx today Alt in Tx: N/A Return in 1 week Safety and Risk for Injury Patient will remain free from injury. Ensure appropriate safety devices are available. Provide and maintain safe environment. documented in this encounter Plan of Treatment Upcoming Encounters Date Type Specialty Care Team Description 06/05/2023 Laboratory Laboratory [place], Lab Scenery [address] [place] [address] 06/05/2023 Office Visit Hematology Oncology Nik Melo MD [address] [place] [address] 06/06/2023 Hem/Onc Treatment Hematology Oncology [place], Chair 6 Hem Onc Scenery [address] [place] [address] 08/14/2023 Office Visit Gastroenterology Roz Tracey MD [address] [place] [address] 08/21/2023 Procedure Only Urology Cm [...] this encounter Medical Devices Implanted Type Area Playground Supervisor Device Identifier Shelf Expiration Date Model / Serial / Lot Cath Power Port 6fr Clearvue - [id number] Implanted:Qty : 1 on 08/10/2021 by Alexander Rodriguez MD at [facility] Left: Subclavian CR BARD : PERIPHERAL VASCULAR 08/21/2021 [id number] / / documented as of this encounter Visit Diagnoses Diagnosis 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)- Primary Prostate cancer (HCC) Malignant neoplasm of prostate Encounter for antineoplastic chemotherapy documented in this encounter Administered Medications Active Administered Medications - up to 3 most recent administrations Medication Order MAR Action Action Date Dose Rate Site diphenhydrAMINE (Benadryl) inj 50 mg 50 mg, IV Push, ONCE PRN Other, Hypersensitivity Reaction, Starting on Chandrika 05/31/23 at 1407, Until Sun06/01/23 at 1406, For 24 hours EPINEPHrine 1 MG/ML inj 0.3 mg 0.3 mg, Intramuscular, ONCE PRN Other, Hypersensitivity Reaction or Anaphylaxis, Starting on Sun05/31/23 at 1407, Until Sun06/01/23 at 1406, For 24 hours hEParin 100 UNIT/ML Lock Flush inj 500 Units 500 Units (5 mL), IV Lock, PRN Other, IV Flush, Starting on Sun05/31/23 at 1407, Until 8/11/23 at 1406, For 24 hours, Do not flush if lock, PICC, or central line not in place; IV infusing or unable to flush. Given 05/31/2023 3:47 PM EDT 500 Units Hydrocortisone Sod Suc (PF) (Solu-Cortef) inj 100 mg 100 mg, IV Push, ONCE PRN Other, Hypersensitivity Reaction, Starting on Sun05/31/23 at 1407, Until Sun06/01/23 at 1406, For 24 hours NSS infusion 500 mL, Intravenous, at 50 mL/hr, CONTINUOUS, Starting on Sun05/31/23 at 1515, Until Sun06/01/23 at 0114 Start Infusion 05/31/2023 2:08 PM EDT 500 mL 50 mL/hr sodium chloride 0.9 % flush central line 10 mL 10 mL, IV Push, PRN Other, IV Flush, Starting on Sun05/31/23 at 1407, Until Sun06/01/23 at 1406, For 24 hours, Do not flush if lock, PICC, or central line not in place; IV infusing or unable to flush. Given 05/31/2023 3:47 PM EDT 10 mL Inactive Administered Medications - up to 3 most recent administrations Medication Order MAR Action Action Date Dose Rate Site Dexamethasone (Decadron) tab 12 mg 12 mg, Oral, ONCE, On Sun05/31/23 at 1445, For 1 dose Given 05/31/2023 2:17 PM EDT 12 mg diphenhydrAMINE (Benadryl) 25 mg in NSS 50 mL ivpb 25 mg, IV Piggyback, ONCE, 1 dose, On Sun05/31/23 at 1445 Start Infusion 05/31/2023 2:16 PM EDT 25 mg 200 mL/hr Famotidine (Pepcid) tab 20 mg 20 mg, Oral, ONCE, On Sun05/31/23 at 1515, For 1 dose Given 05/31/2023 2:20 PM EDT 20 mg PACLitaxel (Taxol) 116 mg in NSS 250 mL infusion 116 mg (rounded from 116.48 mg = 64 mg/m2 1.82 m2 Treatment Plan BSA from Recorded weight), IV Piggyback, at 250 mL/hr Administer over 60 Minutes, Administer through 0.22 micron low protein binding filter!, ONCE, 1 dose, On Chandrika 05/31/23 at 1545 Start Infusion 05/31/2023 2:42 PM EDT 116 mg 250 mL/hr Palonosetron (Aloxi) inj SOLN 0.25 mg 0.25 mg, IV Push, ONCE, On Chandrika 05/31/23 at 1445, For 1 dose, Restricted per S antiemetic guidelines Given 05/31/2023 2:14 PM EDT 0.25 mg documented in this encounter Advance Directives Latest [...] and were consensually agreed upon. Care Teams Tow Feeder Relationship Specialty Start Date End Date Hortencia Leal PA-C [address] [facility], [place] [address] PCP - General Physician Traffic Agent 02/08/18 documented as of this encounter
--- OUTSIDE RECORDS SUMMARY | 2023-06-27 07:32 | External Medical Summary ---
Author Name Unknown Address Unknown Organization [id number]:[facility] [place] [place] [address] Laboratory Report Ordering Provider Test Date Status SHAY CH 05/30/2023 09:23:32 Final Observation Date Value Abnormality Reference (Units ) Status WBC, Total 05/30/2023 09:23:32 4.99 4.00-10.8 0 (K/uL) Final RBC 05/30/2023 09:23:32 3.44 4.50-5.25 (M/uL) Final Hemoglobin 05/30/2023 09:23:32 9.5 Below low normal 14 .0-16.8 (g/dL) Final HCT 05/30/2023 09:23:32 32.2 Below low normal 40. 0-48.4 (%) Final MCV 05/30/2023 09:23:32 93.6 82.0-99.5 (fL) Final MCH 05/30/2023 09:23:32 27.6 27.0-34.0 (pg) Final MCHC 05/30/2023 09:23:32 29.5 32.0-36.0 (g/dL) Final RDW 05/30/2023 09:23:32 20.6 11.5-15.5 (%) Final Platelets 05/30/2023 09:23:32 135 Below low normal 140 -400 (K/uL) Final MPV 05/30/2023 09:23:32 9.1 6.6-11.1 ( fL) Final Performing Location [facility] [place] [address]
--- OUTSIDE RECORDS SUMMARY | 2023-06-27 07:32 | External Medical Summary | Summary of Care ---
Author Name Unknown Organization [facility] Address [address] [facility] [place] [address] Phone [phone] Care Team Providers Care Geophysical Computer Name Role Phone Hortencia Leal PA-C Primary Care Provid er Reason for Visit * Reason Comments Outpatient Testing Encounter Details Date Type Department Care Team Description 05/30/2023 Laboratory Laboratory [facility] [place] [address] [place] [address] [facility] Lab [facility] [address] [facility] [place] [address] Encounter for adjustment and management of vascular access device; 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 As needed . 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 documented as of this encounter (statuses as of 05/30/2023) Immunizations Name Administration Dates Next Due COVID-19 [...] Encounters Date Type Specialty Care Team Description 05/31/2023 Hem/Onc Treatment Hematology Oncology [place], Chair 6 Hem Onc Scenery [address] [place] [address] 06/05/2023 Office Visit Hematology Oncology [place], Nik Vargas MD [address] [place] [address] 08/14/2023 Office Visit Gastroenterology Roz Tracey MD [address] [place] [address] 08/21/2023 Procedure Only Urology Cm Rhodes MD [address] [place] [address] [place] [address] Pending Results Name Type Priority Associated Diagnoses Date /Time COMPREHENSIVE METABOLIC PANEL Lab STAT Encounter for adjustment and management of vascular access device 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) Prostate cancer (HCC) 05/30/2023 9:23 AM EDT TSH WITH FREE T4 IF INDICATED Lab STAT Encounter for adjustment and management of vascular access device 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) Prostate cancer (HCC) Encounter for long-term (current) use of medications 05/30/2023 9:23 AM EDT Health Maintenance Due Date Last [...] this encounter Medical Devices Implanted Type Area Taxation Inspector Device Identifier Shelf Expiration Date Model / Serial / Lot Cath Power Port 6fr Clearvue - [id number] Implanted:Qty : 1 on 08/10/2021 by Alexander Rodriguez MD [place] [facility] [place]: Subclavian CR BARD : PERIPHERAL VASCULAR 08/21/2021 [id number] / / documented as of this encounter Procedures Procedure Name Priority Date/Time Associated Diagnosis Comments DIFFERENTIAL, AUTOMATED STAT 05/30/2023 9:23 AM EDT Encounter for adjustment and management of vascular access device 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) Prostate cancer (HCC) CBC WITH WBC DIFFERENTIAL STAT 05/30/2023 9:23 AM EDT Encounter for adjustment and management of vascular access device 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) Prostate cancer (HCC) CBC STAT 05/30/2023 9:23 AM EDT Encounter for adjustment and management of vascular access device 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) Prostate cancer (HCC) documented in this encounter Results * DIFFERENTIAL, AUTOMATED (05/30/2023 9:23 AM EDT) WBC 4.99 4.00 - 10.80 K/uL 05/30/2023 9:27 AM EDT [facility] 56-02 Neutrophils % 64.8 40.0 - 75.0 % 05/30/2023 9:27 AM EDT [facility] 56-02 Lymphocytes % 21.0 18.0 - 42.0 % 05/30/2023 9:27 AM EDT [facility] 56-02 Monocytes % 11.0 1.0 - 11.0 % 05/30/2023 9:27 AM EDT [facility] 56-02 Eosinophils % 2.8 0.0 - 6.0 % 05/30/2023 9:27 AM EDT [facility] 56-02 Basophils % 0.4 0.0 - 2.0 % 05/30/2023 9:27 AM EDT [facility] 56-02 Absolute Neutrophils 3.23 1.80 - 7.70 K/uL 05/30/2023 9:27 AM EDT [facility] 56 Absolute Lymphocytes 1.05 1.00 - 4.80 K/ul 05/30/2023 9:27 AM EDT [facility] 56 Absolute Monocytes 0.55 0.00 - 1.10 K/uL 05/30/2023 9:27 AM EDT [facility] 56 Absolute Eosinophils 0.14 0.00 - 0.70 K/uL 05/30/2023 9:27 AM EDT [facility] 56 Absolute Basophils 0.02 0.00 - 0.20 K/uL 05/30/2023 9:27 AM EDT [facility] 56 Blood Venous blood specimen / Unknown Venipuncture / Unknown 05/30/2023 9:23 AM EDT 05/30/2023 9:23 AM EDT Nik Melo MD LAB BLOOD ORDERA BLES Performing Organization Address City/State/[facility] [[email or web address]] Co de Phone Number [facility] [address] [place] [address] * (ABNORMAL) CBC (05/30/2023 9:23 AM EDT) WBC 4.99 4.00 - 10.80 K/uL 05/30/2023 9:27 AM EDT [facility] 56 RBC 3.44 4.50 - 5.25 M/uL 05/30/2023 9:27 AM EDT [facility] 56 HGB 9.5(L) 14.0 - 16.8 g/dL 05/30/2023 9:27 AM EDT [facility] 56 HCT 32.2(L) 40.0 - 48.4 % 05/30/2023 9:27 AM EDT [facility] 56 MCV 93.6 82.0 - 99.5 fL 05/30/2023 9:27 AM EDT [facility] 56 MCH 27.6 27.0 - 34.0 pg 05/30/2023 9:27 AM EDT [facility] 56 MCHC 29.5 32.0 - 36.0 g/dL 05/30/2023 9:27 AM EDT [facility] 56 RDW 20.6 11.5 - 15.5 % 05/30/2023 9:27 AM EDT [facility] 56 PLT 135(L) 140 - 400 K/uL 05/30/2023 9:27 AM EDT [facility] 56 MPV 9.1 6.6 - 11.1 fL 05/30/2023 9:27 AM EDT [facility] 56 Blood Venous blood specimen / Unknown Venipuncture / Unknown 05/30/2023 9:23 AM EDT 05/30/2023 9:23 AM EDT Nik Melo MD LAB BLOOD ORDERA BLES [facility] [address] [place] [address] documented in this encounter Visit Diagnoses Diagnosis Encounter for adjustment and management of vascular access device 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 Care Teams Geophysical Computer Relationship Specialty Start Date End Date Hortencia Leal PA-C [address] [facility] [place] [address] PCP - General Physician Log Grader 02/08/18 documented as of this encounter
--- OUTSIDE RECORDS SUMMARY | 2023-06-27 07:32 | External Medical Summary | Summary of Care ---
Author Name Unknown Organization [facility] Address [address] [facility] [place] [address] Phone [phone] Care Team Providers Care Photo Offset Printer Name Role Phone Hortencia Leal PA-C Primary Care Provid er Reason for Visit * Reason Onset Date Comments Precert Approved 05/22/2023 Dronabinol Encounter Details Date Type Department Care Team Description 05/22/2023 Refill Gastroenterology, [facility] [address] [place] [address] Roz Miguel MD [address] [place] [address] Allergies Active Allergy Reactions Severity Noted Date [...] before bedtime. As needed . 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 60 Tablet 2 01/08/2023 Active Dexamethasone 4 MG Oral Tablet (Decadron)Indicat ions:Adenocarcino ma of esophagus metastatic to intra-abdominal lymph node (HCC) Take 12mg (3 tablets) the night before and morning of each taxol treatment 54 Tablet 1 01/15/2023 Active traMADol HCl 50 MG Oral Tablet (Ultram)Indicatio ns:Adenocarcinoma of esophagus metastatic to intra-abdominal lymph node [...] before bedtime. 60 Capsule 2 05/29/2023 Active Dronabinol 2.5 MG Oral Capsule (Marinol) Take 1 Capsule by mouth in the morning and 1 Capsule before bedtime. 28 Capsule 0 05/21/2023 05/29/2023 Discontinue d(Refill) documented as of this encounter (statuses as [...] encounter Miscellaneous Notes * Telephone Encounter - Lety Coreas RN - 05/30/2023 3:16 PM EDT Called pt. He is aware. * Telephone Encounter - Roz Miguel MD - 05/29/2023 2:53 PM EDTSigned Prescriptions: Disp Refills Dronabinol 2.5 MG Oral Capsule (Marinol) 60 Cap*2 Sig: Take 1 Capsule by mouth in the morning and 1 Capsule before bedtime.Authorizing Provider: ROZ MIGUEL * Addendum Note - Srinivas Gallegos RN - 05/29/2023 11:51 AM EDTAddended by: SRINIVAS GALLEGOS on: 05/29/2023 11:51 AM Modules accepted: Orders * Telephone Encounter - Srinivas Gallegos RN - 05/29/2023 11:50 AM EDT Called patient, states he already picked this up from his pharmacy for 38$. He has been using it and states it's helping with his appetite, would like a refill. Dr. Miguel, pended refill. * Telephone Encounter - Srinivas Gallegos RN - 05/29/2023 8:41 AM EDT Type [...] date: 05/28/2024 * Telephone Encounter - Srinivas Gallegos RN - 05/22/2023 11:02 AM EDT Nursing- please forward to precert once Dr. Go completes OV note. Gastro Pre-Cert Request Specialty Medication: No. 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 Site of care: Self-administered - route pre-cert request to [id number] Office Information: Prescriber: Roz Miguel MD documented in this encounter Plan of Treatment Upcoming Encounters Date Type Specialty Care Team Description 05/31/2023 Hem/Onc Treatment Hematology Oncology [place], Chair 6 Hem Onc Scene [address] [place] [address] 06/05/2023 Office Visit Hematology Oncology Nik Melo MD [address] [place] [address] 08/14/2023 Office Visit Gastroenterology Roz Miguel MD [address] [facility] [place] [address] 08/21/2023 Procedure Only Urology Cm [...] this encounter Medical Devices Implanted Type Area Technician Device Identifier Shelf Expiration Date Model / Serial / Lot Cath Power Port 6fr Clearvue - [id number] Implanted:Qty : 1 on 08/10/2021 by Alexander Rodriguez MD at [facility] Left: Subclavian CR BARD : PERIPHERAL VASCULAR 08/21/2021 [id number] / / documented as of this encounter [...] and were consensually agreed upon. Care Teams Photo Offset Printer Relationship Specialty Start Date End Date Hortencia Leal PA-C [address] [place] [address] PCP - General Physician Assurance Senior Manager 02/08/18 documented as of this encounter
--- OUTSIDE RECORDS SUMMARY | 2023-06-27 07:32 | External Medical Summary ---
Author Name Unknown Address Unknown Organization K09:[facility] [place] [address] Laboratory Report Ordering Provider Test Date Status SHAY CH 05/31/2023 13:06:58 Final Observation Date Value Abnormality Reference (Units ) Status Color of Urine by Auto 05/31/2023 13:06:58 Yellow Light Yellow, Yellow, Dark Yellow Final Clarity, Urine 05/31/2023 13:06:58 Clear Clear Final Glucose [Mass/volume] in Urine by Automated test strip 05/31/2023 13:06:58 Negative Negative (mg/dL) Final Bilirubin.total [Presence] in Urine by Automated test strip 05/31/2023 13:06:58 Negative Negative Final Ketones [Mass/volume] in Urine by Automated test strip 05/31/2023 13:06:58 Negative Negative (mg/dL) Final Specific gravity, Urine 05/31/2023 13:06:58 1.020 1.003-1.030 Final Hemoglobin [Presence] in Urine by Automated test strip 05/31/2023 13:06:58 Negative Negative Final pH, Urine 05/31/2023 13:06:58 5.0 5.0-7.5 (Units) Final Protein [Mass/volume] in Urine by Automated test strip 05/31/2023 13:06:58 Negative Negative (mg/dL) Final Urobilinogen [Mass/volume] in Urine by Automated test strip 05/31/2023 13:06:58 0.2 0.2, 1.0 (mg/dL) Final Nitrite [Presence] in Urine by Automated test strip 05/31/2023 13:06:58 Negative Negative Final Leukocyte esterase [Presence] in Urine by Automated test strip 05/31/2023 13:06:58 Negative Negative Final Annotation Comment 05/31/2023 13:06:58 Final Performing Location [facility] [address] [address]
--- OUTSIDE RECORDS SUMMARY | 2023-06-27 07:32 | External Medical Summary | Summary of Care ---
Author Name Unknown Organization [facility] Address [address] [facility] [place] [address] Phone [phone] Care Team Providers Care Performance Improvement Coordinator Name Role Phone Hortencia Leal PA-C Primary Care Provid er Reason for Visit * Reason Comments Outpatient Testing Encounter Details Date Type Department Care Team Description 05/30/2023 Laboratory Laboratory [facility] Maddy [place] [address] [place] [address] [facility] Lab [facility] [address] [facility] [place] [address] Encounter for adjustment and management of vascular [...] before bedtime. As needed . 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) 05/31/2023 1:06 PM EDT Health Maintenance Due Date Last Done [...] this encounter Medical Devices Implanted Type Area Plate Conditioner Device Identifier Shelf Expiration Date Model / Serial / Lot Cath Power Port 6fr Clearvue - [id number] Implanted:Qty : 1 on 08/10/2021 by Alexander Rodriguez MD at [facility] Left: Subclavian CR BARD : PERIPHERAL VASCULAR 08/21/2021 [id number] / / documented as of this encounter Procedures Procedure Name Priority Date/Time Associated Diagnosis Comments DIFFERENTIAL, AUTOMATED STAT 05/30/2023 9:23 AM EDT Encounter for adjustment and management of vascular access device 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) Prostate cancer (HCC) TSH WITH FREE T4 IF INDICATED STAT 05/30/2023 9:23 AM EDT Encounter for adjustment and management of vascular access device 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) Prostate cancer (HCC) Encounter for long-term (current) use of medications COMPREHENSIVE METABOLIC PANEL STAT 05/30/2023 9:23 AM EDT Encounter for [...] 10.80 K/uL 05/30/2023 9:27 AM EDT [facility] 56-02 Neutrophils % 64.8 40.0 - 75.0 % 05/30/2023 9:27 AM EDT [facility] 56-02 Lymphocytes % 21.0 18.0 - 42.0 % 05/30/2023 9:27 AM EDT [facility] 56-02 Monocytes % 11.0 1.0 - 11.0 % 05/30/2023 9:27 AM EDT [facility] 56-02 Eosinophils % 2.8 0.0 - 6.0 % 05/30/2023 9:27 AM EDT [facility] 56 Basophils % 0.4 0.0 - 2.0 % 05/30/2023 9:27 AM EDT [facility] 56 Absolute Neutrophils 3.23 1.80 - 7.70 K/uL 05/30/2023 9:27 AM EDT [facility] 56 Absolute Lymphocytes 1.05 1.00 - 4.80 K/ul 05/30/2023 9:27 AM EDT [facility] 56 Absolute Monocytes 0.55 0.00 - 1.10 K/uL 05/30/2023 9:27 AM EDT [facility] 56 Absolute Eosinophils 0.14 0.00 - 0.70 K/uL 05/30/2023 9:27 AM EDT [facility] 56 Absolute Basophils 0.02 0.00 - 0.20 K/uL 05/30/2023 9:27 AM EDT [facility] 56 Blood Venous blood specimen / Unknown Venipuncture / Unknown 05/30/2023 9:23 AM EDT 05/30/2023 9:23 AM EDT Nik Melo MD LAB BLOOD [facility] [address] [place] [address] * (ABNORMAL) CBC (05/30/2023 9:23 AM EDT) WBC 4.99 4.00 - 10.80 K/uL 05/30/2023 9:27 AM EDT [facility] 56 RBC 3.44 4.50 - 5.25 M/uL 05/30/2023 9:27 AM EDT [facility] 56 HGB 9.5(L) 14.0 - 16.8 g/dL 05/30/2023 9:27 AM EDT [facility] 56 HCT 32.2(L) 40.0 - 48.4 % 05/30/2023 9:27 AM EDT [facility] 56 MCV 93.6 82.0 - 99.5 fL 05/30/2023 9:27 AM EDT [address] MCH 27.6 27.0 - 34.0 pg 05/30/2023 9:27 AM EDT [address] MCHC 29.5 32.0 - 36.0 g/dL 05/30/2023 9:27 AM EDT [address] RDW 20.6 11.5 - 15.5 % 05/30/2023 9:27 AM EDT [address] PLT 135(L) 140 - 400 K/uL 05/30/2023 9:27 AM EDT [address] MPV 9.1 6.6 - 11.1 fL 05/30/2023 9:27 AM EDT [address] Blood Venous blood specimen / Unknown Venipuncture / Unknown 05/30/2023 9:23 AM EDT 05/30/2023 9:23 AM EDT Nik Melo MD LAB BLOOD [facility] [address] [place] [address] * TSH WITH FREE T4 IF INDICATED (05/30/2023 9:23 AM EDT) TSH 1.98 0.27 - 4.20 uIU/mL 05/30/2023 4:18 PM EDT LAB[facility]ATORY [facility] Blood Venous blood specimen / Unknown Venipuncture / Unknown 05/30/2023 9:23 AM EDT 05/30/2023 9:23 AM EDT Nik Melo MD LAB BLOOD [facility] [address] [place] [address] * (ABNORMAL) COMPREHENSIVE METABOLIC PANEL (05/30/2023 9:23 AM EDT) BUN 22(H) 6 - 20 mg/dL 05/30/2023 9:49 AM EDT [address] Creatinine 1.8(H) 0.6 - 1.2 mg/dL 05/30/2023 9:49 AM [place] [address] Estimated Glomerular Filtration Rate 38(L) >=60 mL/min 05/30/2023 9:[address] Comment:eGFR is calculated b ased on the CKD-EPI 2020 equation Sodium 140 135 - 146 mmol/L 05/30/2023 9:[address] Potassium 4.0 3.5 - 5.1 mmol/L 05/30/2023 9:49 AM [place] [address] Chloride 106 98 - 107 mmol/L 05/30/2023 9:[address] CO2 26 22 - 32 mmol/L 05/30/2023 9:49 AM [place] [address] Anion Gap 8 7 - 15 mmol/L 05/30/2023 9:49 AM [place] [address] Glucose 126(H) 70 - 120 mg/dL 05/30/2023 9:49 AM [place] [address] Albumin 3.9 3.8 - 5.0 g/dL 05/30/2023 9:49 AM [place] [address] AST 12 10 - 50 U/L 05/30/2023 9:49 AM [place] [address] Alkaline Phosphatase 63 35 - 130 U/L 05/30/2023 9:49 AM [place] [address] Bilirubin, Total 0.4 <=1.2 mg/dL 05/30/2023 9:49 AM [place] [address] Calcium 9.5 8.4 - 10.2 mg/dL 05/30/2023 9:49 AM [place] [address] Protein 6.4 6.0 - 8.3 g/dL 05/30/2023 9:[address] ALT 7(L) 10 - 50 U/L 05/30/2023 9:49 AM [place] [address] Blood Venous blood specimen / Unknown Venipuncture / Unknown 05/30/2023 9:23 AM EDT 05/30/2023 9:23 AM EDT Nik Melo MD LAB BLOOD [facility] 56-02 [address] [place] [address] documented in this encounter Visit Diagnoses Diagnosis [...] and were consensually agreed upon. Care Teams Performance Improvement Coordinator Relationship Specialty Start Date End Date Hortencia Leal PA-C [address] [facility] [address] PCP - General Physician Sales Apprentice 02/08/18 documented as of this encounter
--- OUTSIDE RECORDS SUMMARY | 2023-06-27 07:32 | External Medical Summary ---
Author Name Unknown Address Unknown Organization K09:[facility] [place] [address] Laboratory Report Ordering Provider Test Date Status SHAY CH 05/30/2023 09:23:32 Final Observation Date Value Abnormality Reference (Units ) Status SYNC LEUKOCYTES IN BLOOD BY AUTOMATED COUNT 05/30/2023 09:23:32 4.99 4.00-10.80 (K/uL) Final Segs 05/30/2023 09:23:32 64.8 40.0-75.0 (%) Final Lymphs % 05/30/2023 09:23:32 21.0 18.0-42.0 (%) Final Monos 05/30/2023 09:23:32 11.0 1.0-11.0 (%) Final Eosinophils 05/30/2023 09:23:32 2.8 0.0-6.0 (%) Final Basos 05/30/2023 09:23:32 0.4 0.0-2.0 (%) Final Absolute Segs 05/30/2023 09:23:32 3.23 1.80-7.70 (K/uL) Final Lymphs, absolute 05/30/2023 09:23:32 1.05 1.00-4.80 (K/ul) Final Monos, Abs 05/30/2023 09:23:32 0.55 0.00-1.10 (K/uL) Final Eos, Abs 05/30/2023 09:23:32 0.14 0.00-0.70 (K/uL) Final Basos, Abs 05/30/2023 09:23:32 0.02 0.00-0.20 (K/uL) Final Performing Location [facility] [place] [address]
--- OUTSIDE RECORDS SUMMARY | 2023-06-27 07:32 | External Medical Summary | Summary of Care ---
Author Name Unknown Organization [facility] Address [address] [facility] [place] [address] Phone [phone] Care Team Providers Care Front Office Assistant Name Role Phone Hortencia Leal PA-C Primary Care Provid er Reason for Visit * Reason Onset Date Comments Precert In Process 05/22/2023 07 TSW OPTUM RX Dronabinol Encounter Details Date Type Department Care Team Description 05/22/2023 Telephone Gastroenterology, [facility] [address] [place] [address] Roz Tracey MD [address] [place] [address] Precert In Process (07 TSW OPTUM RX Dronab... Allergies Active Allergy Reactions Severity Noted Date Comments Amlodipine 11/02/2020 dizziness Codeine Sulfate Other (Please comment) 10/26/19 11 hyperactivity Hydrochlorothiazide 11/02/2020 hypercalcemia Oxaliplatin 02/09/2022 Infusion related reaction documented as of this encounter (statuses as of 05/28/2023) Medications Medication Sig Dispensed Refills Start Date [...] before bedtime. As needed . 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 documented as of this encounter (statuses as of 05/28/2023) Immunizations Name Administration Dates Next Due COVID-19 [...] care: Self-administered - route pre-cert request to [id number] Office Information: Prescriber: Roz Tracey MD documented in this encounter Plan of Treatment Upcoming Encounters Date Type Specialty Care Team Description 05/28/2023 Imaging Radiology 05/30/2023 Laboratory Laboratory [place], Lab Scenery [address] [facility] [address] 05/31/2023 Hem/Onc Treatment Hematology Oncology [place], Chair 10 Hem Onc Scenery [address] [place] [address] 06/05/2023 Office Visit Hematology Oncology Nik Melo MD [address] [place] [address] 08/14/2023 Office Visit Gastroenterology Roz Tracey MD [address] [place] [address] 08/21/2023 Procedure Only Urology Cm Rhodes MD [...] this encounter Medical Devices Implanted Type Area Pretzel Cooker Device Identifier Shelf Expiration Date Model / Serial / Lot Cath Power Port 6fr Clearvue - [id number] Implanted:Qty : 1 on 08/10/2021 by Alexander Rodriguez MD at [facility] Left: Subclavian CR BARD : PERIPHERAL VASCULAR 08/21/2021 [id number] / / documented as of this encounter [...] and were consensually agreed upon. Care Teams Front Office Assistant Relationship Specialty Start Date End Date Hortencia Leal PA-C [address] [facility] [place] [address] PCP - General Physician Glass Finisher 02/08/18 documented as of this encounter
--- OUTSIDE RECORDS SUMMARY | 2023-06-27 07:32 | External Medical Summary | Summary of Care ---
Author Name Unknown Organization [facility] Address 100 [facility] [place] [address] Phone [phone] Care Team Providers Care Civil Cadd Technician Name Role Phone Hortencia Leal PA-C Primary Care Provid er Reason for Visit * Reason Comments Outpatient Testing Encounter Details Date Type Department Care Team Description 05/31/[address] [facility] Maddy [place] [address] [place] [id number] [place] [facility] [address] [facility] [place] [address] Arrived Allergies Active Allergy Reactions Severity Noted Date [...] before bedtime. As needed . 0 Active [place]-3 Fatty Acids (FISH OIL) 1000 MG Capsule [...] Chair 6 Hem Onc Scenery [address] [place] [address] Arrived 06/05/2023 Office Visit Hematology Oncology Nik Melo MD [address] [place] [address] 08/14/2023 Office Visit Gastroenterology Roz Tracey MD [address] [place] [address] 08/21/2023 Procedure Only Urology Cm Rhodes MD [...] this encounter Medical Devices Implanted Type Area Microsystems Engineer Device Identifier Shelf Expiration Date Model / Serial / Lot Cath Power Port 6fr Clearvue - [id number] Implanted:Qty : 1 on 08/10/2021 by Alexander Rodriguez MD at OR [facility] Left: Subclavian CR BARD : PERIPHERAL VASCULAR 08/21/2021 [id number] / / documented as of this encounter [...] and were consensually agreed upon. Care Teams Civil Cadd Technician Relationship Specialty Start Date End Date Hortencia Leal PA-C [address] [facility] [place] [address] PCP - General Physician Subway Train Operator 02/08/18 documented as of this encounter
--- OUTSIDE RECORDS SUMMARY | 2023-06-27 07:32 | External Medical Summary | Summary of Care ---
Author Name Unknown Organization [facility] Address [address] [facility] [place] [address] Phone [phone] Care Team Providers Care Metallurgy Laboratory Technician Name Role Phone Hortencia Leal PA-C Primary Care Provid er Reason for Visit * Reason Onset Date Comments Test Results Imaging Study 05/29/2023 Encounter Details Date Type Department Care Team Description 05/29/2023 [facility] [address] [facility] [place] [address] iNk Melo MD [address] [facility] [place] [address] Test Results Imaging Study Allergies Active Allergy Reactions Severity Noted Date [...] before bedtime. As needed . 0 Active [place]-3 Fatty Acids (FISH OIL) 1000 MG Capsule [...] encounter Miscellaneous Notes * Telephone Encounter - Opal Wesley LPN - 05/29/2023 10:15 AM EDT ----- Message from Nik Melo MD sent at 05/28/2023 4:40 PM EDT ----- On the PET scan IMPRESSION Positive response to therapy: 1. Decreased but persistent activity in the distal esophagus, gastroesophageal junction, and gastric incisura. 2. Resolved/decreased lymphadenopathy in the mediastinum, upper abdomen, and retroperitoneum. documented in this encounter Plan of Treatment Upcoming Encounters Date Type Specialty Care Team Description 05/30/2023 Laboratory Laboratory [place], Lab Scenery [address] [place] [address] 05/31/2023 Hem/Onc Treatment Hematology Oncology [place], Chair 10 Hem Onc Scenery [address] [place] [address] 06/05/2023 Office Visit Hematology Oncology Nik Melo MD [address] [place] [address] 08/14/2023 Office Visit Gastroenterology Roz Tracey MD [address] [place] [address] 08/21/2023 Procedure Only Urology Cm Rhodes MD [...] this encounter Medical Devices Implanted Type Area Therapy Manager Device Identifier Shelf Expiration Date Model / Serial / Lot Cath Power Port 6fr Clearvue - [id number] Implanted:Qty : 1 on 08/10/2021 by Alexander Rodriguez MD at [facility] Left: Subclavian CR BARD : PERIPHERAL VASCULAR 08/21/2021 [id number] / / documented as of this encounter [...] and were consensually agreed upon. Care Teams Metallurgy Laboratory Technician Relationship Specialty Start Date End Date Hortencia Leal PA-C [address] [place] [address] PCP - General Physician Aerosol Supervisor 02/08/18 documented as of this encounter
--- OUTSIDE RECORDS SUMMARY | 2023-06-27 07:32 | External Medical Summary | Summary of Care ---
Author Name Unknown Organization [facility] Address 100 [facility] [address] [place] [address] Phone [phone] Care Team Providers Care Acetylene Gas Compressor Name Role Phone Hortencia Leal PA-C Primary Care Provid er Reason for Visit * Reason Onset Date Comments Precert Approved 05/22/2023 Dronabinol Encounter Details Date Type Department Care Team Description 05/22/2023 Telephone Gastroenterology, [facility] [address] [place] [address] Roz Tracey MD [address] [place] [address] Precert Approved (Dronabinol) Allergies Active Allergy Reactions [...] before bedtime. As needed . 0 Active [place]-3 Fatty Acids (FISH OIL) 1000 MG Capsule [...] care: Self-administered - route pre-cert request to [id number] Office Information: Prescriber: Roz Tracey MD documented in this encounter Plan of Treatment Upcoming Encounters Date Type Specialty Care Team Description 05/30/2023 Laboratory Laboratory [place], Lab Scenery [address] [place] [address] 05/31/2023 Hem/Onc Treatment Hematology Oncology [place], Chair 10 Hem Onc Scenery [address] [place] [address] 06/05/2023 Office Visit Hematology Oncology Nik Melo MD [address] [place] [address] 08/14/2023 Office Visit Gastroenterology Roz Tracey MD [address] [place] [address] 08/21/2023 Procedure Only Urology Cm Rhodes MD [address] [place] [address] [facility] [place] [address] Health Maintenance Due Date Last Done [...] this encounter Medical Devices Implanted Type Area Packaging Engineer Device Identifier Shelf Expiration Date Model / Serial / Lot Cath Power Port 6fr Clearvue - [id number] Implanted:Qty : 1 on 08/10/2021 by Alexander Rodriguez MD at [facility] Left: Subclavian CR BARD : PERIPHERAL VASCULAR 08/21/2021 [id number] / / documented as of this encounter [...] and were consensually agreed upon. Care Teams Acetylene Gas Compressor Relationship Specialty Start Date End Date Hortencia Leal PA-C [address] [facility], [place] [address] PCP - General Physician Electron Gun Assembler 02/08/18 documented as of this encounter
--- OUTSIDE RECORDS SUMMARY | 2023-06-27 07:32 | External Medical Summary | Summary of Care ---
Author Name Unknown Organization [facility] Address 100 [facility] [place] [address] Phone [phone] Care Team Providers Care Milanese Knitting Machine Operator Name Role Phone Hortencia Leal PA-C Primary Care Provid er Reason for Visit * Reason Onset Date Comments Precert Approved 05/22/2023 Dronabinol Encounter Details Date Type Department Care Team Description 05/22/2023 Refill Gastroenterology, [facility] [address] [place] [address] Roz Tracey MD [address] [place] [address] Allergies Active Allergy Reactions Severity Noted Date [...] before bedtime. As needed . 0 Active [place]-3 Fatty Acids (FISH OIL) 1000 MG Capsule [...] as of this encounter Miscellaneous Notes * Addendum Note - Srinivas Gallegos RN [...] his appetite, would like a refill. Dr. Tracey, pended refill. * Telephone Encounter - Srinivas [...] care: Self-administered - route pre-cert request to [id number] Office Information: Prescriber: Roz Tracey MD documented in this encounter Plan of Treatment Upcoming Encounters Date Type Specialty Care Team Description 05/30/2023 Laboratory Laboratory [place], Lab Scenery [address] [place] [address] 05/31/2023 Hem/Onc Treatment Hematology Oncology [place], Chair 6 Hem Onc Scenery [address] [place] [address] 06/05/2023 Office Visit Hematology Oncology Nik Melo MD [address] [place] [facility] [place] [address] 08/14/2023 Office Visit Gastroenterology Roz Tracey MD [address] [place] [address] 08/21/2023 Procedure Only Urology Cm Rhodes MD [...] this encounter Medical Devices Implanted Type Area Director Field Services Device Identifier Shelf Expiration Date Model / Serial / Lot Cath Power Port 6fr Clearvue - [id number] Implanted:Qty : 1 on 08/10/2021 by Alexander Rodriguez MD at OR [facility] Left: Subclavian CR BARD : PERIPHERAL VASCULAR 08/21/2021 [id number] / / documented as of this encounter [...] and were consensually agreed upon. Care Teams Milanese Knitting Machine Operator Relationship Specialty Start Date End Date Hortencia Leal PA-C [address] [place] [address] PCP - General Physician Cooling Pan Tender 02/08/18 documented as of this encounter
--- OUTSIDE RECORDS SUMMARY | 2023-06-27 07:32 | External Medical Summary ---
Author Name Unknown Address Unknown Organization K09:[facility] [place] [address] Laboratory Report Ordering Provider Test Date Status SHAY CH 05/30/2023 09:23:32 Final Observation Date Value Abnormality Reference (Units ) Status BUN 05/30/2023 09:23:32 22 Above high normal 6-20 (mg/dL) Final Creatinine 05/30/2023 09:23:32 1.8 Above high normal 0.6-1.2 (mg/dL) Final Glomerular filtration rate/1.73 sq M.predicted [Volume Rate/Area] in Serum, Plasma or Blood by Creatinine-based formula (CKD-EPI) 05/30/2023 09:23:32 38 Below low normal >=60 (mL/min) Final Performing Location [facility] [place] [address]
--- OUTSIDE RECORDS SUMMARY | 2023-06-27 07:33 | External Medical Summary | Summary of Care ---
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 As needed . 0 Active [place]-3 Fatty Acids (FISH OIL) 1000 MG Capsule [...] Pain, Moderate. 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 documented as of this encounter (statuses as of 05/17/2023) Immunizations Name Administration Dates Next Due COVID-19 [...] Encounters Date Type Specialty Care Team Description 05/17/2023 Hem/Onc Treatment Hematology Oncology [place], Chair 7 Hem Onc Scenery [address] [place] [address] Arrived 05/28/2023 Imaging Radiology 06/05/2023 Office Visit Hematology Oncology Nik Melo MD [address] [place] [address] 08/21/2023 Procedure Only Urology Cm Rhodes MD [address] [place] [address] [place] [address] 09/10/2023 Office Visit Gastroenterology Roz Tracey MD [address] [place] [address] Pending Results Name Type Priority Associated Diagnoses Date /Time COMPREHENSIVE METABOLIC PANEL Lab STAT 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) 05/17/2023 10:23 AM EDT Health Maintenance Due Date Last [...] this encounter Medical Devices Implanted Type Area Acquisition Professional Device Identifier Shelf Expiration Date Model / Serial / Lot Cath Power Port 6fr Clearvue - [id number] Implanted:Qty : 1 on 08/10/2021 by Alexander Rodriguez MD at [place] [facility] [place] Left: Subclavian CR BARD : PERIPHERAL VASCULAR 08/21/2021 [id number] / / documented as of this encounter Procedures Procedure Name Priority Date/Time Associated Diagnosis Comments DIFFERENTIAL, AUTOMATED STAT 05/17/2023 10:23 AM EDT 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) CBC WITH WBC DIFFERENTIAL STAT 05/17/2023 10:23 AM EDT 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) CBC STAT 05/17/2023 10:23 AM EDT 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) documented in this encounter Results * DIFFERENTIAL, AUTOMATED (05/17/2023 10:23 AM EDT) WBC 7.77 4.00 - 10.80 K/uL 05/17/2023 10:27 AM EDT [facility] 56-02 Neutrophils % 66.2 40.0 - 75.0 % 05/17/2023 10:27 AM EDT [facility] 56-02 Lymphocytes % 22.1 18.0 - 42.0 % 05/17/2023 10:27 AM EDT [facility] 56-02 Monocytes % 8.8 1.0 - 11.0 % 05/17/2023 10:27 AM EDT [facility] 56-02 Eosinophils % 2.4 0.0 - 6.0 % 05/17/2023 10:27 AM EDT [facility] 56-02 Basophils % 0.5 0.0 - 2.0 % 05/17/2023 10:27 AM EDT [facility] 56-02 Absolute Neutrophils 5.14 1.80 - 7.70 K/uL 05/17/2023 10:27 AM EDT [facility] 56-02 Absolute Lymphocytes 1.72 1.00 - 4.80 K/ul 05/17/2023 10:27 AM EDT [facility] 56-02 Absolute Monocytes 0.68 0.00 - 1.10 K/uL 05/17/2023 10:27 AM EDT [facility] 56-02 Absolute Eosinophils 0.19 0.00 - 0.70 K/uL 05/17/2023 10:27 AM EDT [facility] 56-02 Absolute Basophils 0.04 0.00 - 0.20 K/uL 05/17/2023 10:27 AM EDT [facility] 56-02 Blood Venous blood specimen / Unknown Venipuncture / Unknown 05/17/2023 10:23 AM EDT 05/17/2023 10:23 AM EDT Nik Melo MD LAB BLOOD [facility] BLES [facility] [address] [place] [address] * (ABNORMAL) CBC (05/17/2023 10:23 AM EDT) WBC 7.77 4.00 - 10.80 K/uL 05/17/2023 10:27 AM EDT [facility] 56 RBC 3.62 4.50 - 5.25 M/uL 05/17/2023 10:27 AM EDT [facility] 56- HGB 9.9(L) 14.0 - 16.8 g/dL 05/17/2023 10:27 AM EDT [facility] 56 HCT 33.9(L) 40.0 - 48.4 % 05/17/2023 10:27 AM EDT [facility] 56 MCV 93.6 82.0 - 99.5 fL 05/17/2023 10:27 AM EDT [facility] 56 MCH 27.3 27.0 - 34.0 pg 05/17/2023 10:27 AM EDT [facility] 56 MCHC 29.2 32.0 - 36.0 g/dL 05/17/2023 10:27 AM EDT [facility] 56 RDW 21.4 11.5 - 15.5 % 05/17/2023 10:27 AM EDT [facility] 56- PLT 172 140 - 400 K/uL 05/17/2023 10:27 AM EDT [facility] 56- MPV 8.9 6.6 - 11.1 fL 05/17/2023 10:27 AM EDT [facility] 56 Blood Venous blood specimen / Unknown Venipuncture / Unknown 05/17/2023 10:23 AM EDT 05/17/2023 10:23 AM EDT Nik Melo MD LAB BLOOD [facility] [address] [place] [address] documented in this encounter Visit Diagnoses Diagnosis [...] and were consensually agreed upon. Care Teams Permastone Applicator Relationship Specialty Start Date End Date Hortencia Leal PA-C [address] [facility] [address] PCP - General Physician Graphic Design Professor 02/08/18 documented as of this encounter
--- OUTSIDE RECORDS SUMMARY | 2023-06-27 07:33 | External Medical Summary ---
Author Name Unknown Address Unknown Organization K09:[facility] [place] [address] Laboratory Report Ordering Provider Test Date Status SHAY CH 05/17/2023 10:23:11 Final Observation Date Value Abnormality Reference (Units ) Status WBC, Total 05/17/2023 10:23:11 7.77 4.00-10.8 0 (K/uL) Final RBC 05/17/2023 10:23:11 3.62 4.50-5.25 (M/uL) Final Hemoglobin 05/17/2023 10:23:11 9.9 Below low normal 14 .0-16.8 (g/dL) Final HCT 05/17/2023 10:23:11 33.9 Below low normal 40. 0-48.4 (%) Final MCV 05/17/2023 10:23:11 93.6 82.0-99.5 (fL) Final MCH 05/17/2023 10:23:11 27.3 27.0-34.0 (pg) Final MCHC 05/17/2023 10:23:11 29.2 32.0-36.0 (g/dL) Final RDW 05/17/2023 10:23:11 21.4 11.5-15.5 (%) Final Platelets 05/17/2023 10:23:11 172 140-400 (K /uL) Final MPV 05/17/2023 10:23:11 8.9 6.6-11.1 ( fL) Final Performing Location [facility] [place] [address]
--- OUTSIDE RECORDS SUMMARY | 2023-06-27 07:33 | External Medical Summary | Summary of Care ---
Author Name Unknown Organization [facility] Address [address] [facility] [address] Phone [phone] Care Team Providers Care Terrazzo Worker Helper Name Role Phone Hortencia Leal PA-C Primary Care Provid er Reason for Visit * Reason Onset Date Comments Returning Call 05/23/2023 Encounter Details Date Type Department Care Team Description 05/23/2023 Telephone Hematology/Oncology [facility] [place] [address] [place] [address] Services, Scheduling [address] [place] [address] Returning Call Allergies Active Allergy Reactions Severity Noted Date Comments Amlodipine 11/02/2020 dizziness Codeine Sulfate Other (Please comment) 10/26/19 11 hyperactivity Hydrochlorothiazide 11/02/2020 hypercalcemia Oxaliplatin 02/09/2022 Infusion related reaction documented as of this encounter (statuses as of 05/23/2023) Medications Medication Sig Dispensed Refills Start Date [...] before bedtime. As needed . 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 He said hes not feeling too great. Mainly its his vertigo acting up. Thank you, TANI Mckeon * Telephone Encounter - TANI Johnson - 05/23/2023 9:45 AM EDT Per nursing canceled appts for today and tomorrow. Done. * Telephone Encounter - Venita Byers RN - 05/23/2023 9:37 AM EDT Patient has appts for labs/ treatment next week. Can keep those as scheduled. Left messages for patient to return call to discuss how he is feeling. Scheduling: please cancel labs today/ treatment tomorrow per patients request. Thanks! * Telephone Encounter - TANI Delatorre - 05/23/2023 9:05 AM EDT We received a call from Heath stating that he was not feeling well and wanted to reschedule his labappointment for today 05/23 as well as his treatment appointment for tomorrow 05/24. I spoke with Karen at the front desk administrator and she advised that I should speak with a nurse in regards to this to see if he in fact does need to reschedule his treatment or if it would be alright if he misses this appointment all together since he has others on the schedule already. I did try to call over to a nurse but unfortunately was not able to get through. Please give Heath a call back and advise him if he is able to miss this treatment appointment or ifhe should reschedule. Thank you! documented in this encounter Plan of Treatment Upcoming Encounters Date Type Specialty Care Team Description 05/28/2023 Imaging Radiology 05/30/2023 Laboratory Laboratory [place], [facility] [place] [address] [place] [address] 05/31/2023 Hem/Onc Treatment Hematology Oncology 06/05/2023 Office Visit Hematology Oncology Nik Melo MD [address] [place] [address] 08/14/2023 Office Visit Gastroenterology Roz Tracey MD [address] [place] [address] 08/21/2023 Procedure Only Urology Cm Rhodes MD [address] [place] [address] [place] [id number] Health Maintenance Due Date Last Done Comments [...] this encounter Medical Devices Implanted Type Area Ferryboat Operator Device Identifier Shelf Expiration Date Model / Serial / Lot Cath Power Port 6fr Clearvue - [id number] Implanted:Qty : 1 on 08/10/2021 by Alexander Rodriguez MD at [place] [facility] [place] Left: Subclavian CR BARD : PERIPHERAL VASCULAR 08/21/2021 [id number] / / documented as of this encounter [...] and were consensually agreed upon. Care Teams Terrazzo Worker Helper Relationship Specialty Start Date End Date Hortencia Leal PA-C [address] [facility] Center[facility] [address] PCP - General Physician Balancing Machine Set Up Worker 02/08/18 documented as of this encounter
--- OUTSIDE RECORDS SUMMARY | 2023-06-27 07:33 | External Medical Summary | Summary of Care ---
Author Name Unknown Organization [facility] Address [address] [facility] [place] [address] Phone [phone] Care Team Providers Care Building Maintenance Custodian Name Role Phone Hortencia Plata PA-C Primary Care Provid er Reason for Visit * Reason Comments NEW PATIENT Hx of bowel blockage , constipation[facility] for esophageal caner. Encounter Details Date Type Department Care Team Description 05/21/2023 Office Visit Gastroenterology, [facility] [address] [place] [address] Roz Tracey MD [address] [place] [address] Cancer cachexia (HCC)* Allergies Active Allergy Reactions Severity Noted Date Comments Amlodipine 11/02/2020 dizziness Codeine Sulfate Other (Please comment) 10/26/19 11 hyperactivity Hydrochlorothiazide 11/02/2020 hypercalcemia Oxaliplatin 02/09/2022 Infusion related reaction documented as of this encounter (statuses as of 05/25/2023) Medications Medication Sig Dispensed Refills Start Date [...] before bedtime. As needed . 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 documented as of this encounter (statuses as of 05/25/2023) Immunizations Name Administration Dates Next Due COVID-19 [...] Sign Reading Time Taken Comments Blood Pressure 150/74 05/21/2023 3:50 PM EDT Pulse 86 05/21/2023 3:50 PM EDT Temperature 36.6 C (97.8 F) 05/21/2023 3:50 PM ED T Respiratory Rate - - Oxygen Saturation 99% 05/21/2023 3:50 PM EDT Inhaled Oxygen Concentration - - Weight 73.6 kg (162 lb 4.8 oz) 05/21/2023 3:50 P M EDT Height 161.9 cm (5' 3.75") 05/21/2023 3:50 PM ED T Body Mass Index 28.08 05/21/2023 3:50 PM EDT documented in this encounter Progress Notes * Roz Tracey MD - 05/25/2023 12:30 AM EDT Consult requested by Ref: HORTENCIA PLATA[[id number]] [address] [place], [place] [id number] (office) [phone] (fax) HPI: 77 year old male with met recurrent esesophageal cancerl receiving ramciumab (VEGF agent) and novlumab seen for constipation, abl PET. He had a PET scan in March which was read as stercoral colitis, although he denies constipation to me, and states that he has a complete BM qOD with Miralax Hehad csocpy in 2020 . He denies dysphagia, heartburn, or chest pain. He denies nausea or vomiting. He has lost weight. ROS: GEN: no weight loss, fever, fatigue HEENT: no changes in vision or hearing, no sinus problems, no sore throat, no hoarsenss RESP: no cough, wheezing, SOB or change in breathing CARDIOVASCULAR: no exertional chest pain, dyspnea, palpitations GI: see HPI , otherwise negative : no dysuria, hematuria, polyuria MUSCULOSKELETAL: no change in joint pains, no new arthritis PSYCHIATRIC: no significant anxiety or depression, unchanged sleep pattern HEME: no bleeding tendency, no transfusion history NEURO: no significant headache, no seizures , no tremors SKIN: no new rashes, no itching ALLERGIES: Review of patient's allergies indicates: Allergen Reactions Amlodipine dizziness Codeine Sulfate Other (Please comment) hyperactivity Hctz [Hydrochlorothiazide] hypercalcemia Oxaliplatin Infusion related reaction Past Medical History: Diagnosis Date Actinic keratosis [...] unguium Ventral hernia without obstruction or gangrene Past Surgical History: Procedure Laterality Date COLONOSCOPY COLONOSCOPY, DIAGNOSTIC (RECTUM) 03/07/2013 path shows adenomatous polyp repeat in 5 years COLONOSCOPY, DIAGNOSTIC (RECTUM) 04/12/2018 adenomatous polyps, diverticulosis, repeat 3 yrs/COLONOSCOPY FLEXIBLE PROXIMAL DIAGNOSTIC performedby Roz Tracey MD at ENDOSCOPY [facility] COLONOSCOPY, DIAGNOSTIC (RECTUM) 07/15/2021 hyperplastic polyp, diverticulosis / COLONOSCOPY FLEXIBLE PROXIMAL DIAGNOSTIC performed by Roz Clark MD at ENDOSCOPY [facility] EGD, FLEXIBLE, DIAGNOSTIC 07/15/2021 Malignancy of the GEJ - Invasive adenocarcinoma / ESOPHAGOGASTRODUODENOSCOPY (EGD), FLEXIBLE, TRANSORAL, DIAGNOSTIC performed by Roz Tracey MD at ENDOSCOPY [facility] EGD, FLEXIBLE, DIAGNOSTIC N/A 2022 [facility], Malignant tumor right below GEJ, erosive gastropathy, non-bleeding duodenal ulcer / no specimens collected / EGD, FLEXIBLE, DIAGNOSTIC N/A 12/29/2022 [facility], EGD, likely malignnant gastric tumor GE junction in cardia, nodular mucosa in incisura, non-bleeding duodenal ulcer / biopsies adenocarcinoma / EGD, W/ENDOSCOPIC US 08/02/2021 mass lower third of esophagus and extending to the mid stomach consistant with previously diagnosedadenocarcinoma/ESOPHAGOGASTRODUODENOSCOPY (EGD), FLEXIBLE, TRANSORAL, ENDOSCOPIC ULTRASOUND performed by Brendan Gomez MD at ENDOSCOPY [facility] INSER TUNN ACC DEV;5 YRS/OLDER N/A 08/10/2021 INSERT TUNNELED CENTRAL VENOUS ACCESS WITH SUBQ PORT performed by Alexander Rodriguez MD at [facility] KNEE ARTHROSCOPY, DIAGNOSTIC 1989 Knee Arthroscopy right LAPAROSCOPY,BIOPSY N/A 08/10/2021 LAPAROSCOPY WITH BIOPSY performed by Alexander Rodriguez MD at [facility] NEEDLE/PUNCH BIOPSY OF PROSTATE 01/05/2011 BIOPSY PROSTATE NEEDLE performed by EYAD LANDRUM at [facility] PROSTATECTOMY, RETROPUBIC RADICAL, LAP 10/30/2011 ROBOTIC LAPAROSCOPIC PROSTATECTOMY RETROPUBIC RADICAL performed by EYAD LANDRUM at [facility] REMOVAL OF TONSILS, UNDER AGE 12 Tonsillectomy REPAIR INITIAL INCISIONAL HERNIA 04/18/2012 Laparoscopic ventral hernia repair with 4 x [address] Adams 04/18/12 US ECHO TRANSRECTAL/PROSTATE 01/05/2011 ULTRASOUND TRANSRECTAL performed by EYAD LANDRUM at OR [facility] Family History Problem Relation Age of Onset Colon cancer Father Social History Socioeconomic History Marital status: Tobacco Use Smoking status: Never Smokeless tobacco: Never Vaping Use Vaping Use: Never used Substance and Sexual Activity Alcohol use: No Drug use: No BP 150/74 | Pulse 86 | Temp 36.6 C (97.8 F) | Ht 1.619 m (5' 3.75") | Wt 73.6 kg (162 lb 4.8 oz) | SpO2 99% | BMI 28.08 kg/m | BSA 1.82 m Frail, walking with a cane SKIN: no rashes, ulcers, or spider angiomata HEENT: normocephalic, sclerae clear, pharynx normal NECK: supple, no masses or thyroid enlargement LUNGS: clear to auscultation and percussion HEART: regular rate & rhythm, no murmurs and no gallops ABDOMEN: non-tender without guarding or rebound, soft, normo-active bowel sounds, no masses, no hepatosplenomegaly, no rebound or guarding, no bruits EXTREMITIES: no palmar erythema, no edema, no skin discoloration, no clubbing, no cyanosis NEURO: no lateralizing findings, Sensory/Motor grossly normal ASSESSMENT/PLAN: Constipation, ? Stercoral colitis - He has upcoming repeat PET. Given his age, frailty, comorbid cancer, and absence of symptomatic constipation, will defer colonoscopy. Poor appetite, cancer cacheixa -- Trial of Marinol 2.5 twice daily, side effects reviewed. Roz Tracey MD documented in this encounter Nursing Notes * Ayleen Lovell LPN - 05/21/2023 3:53 PM EDT Patient identified by name and date of . Chief Complaint Patient presents with NEW PATIENT Hx of bowel blockage, constipation[facility] being [facility] for esophageal caner. Pt stating that he is here with his sister, telling me that his ( fiorella sumner). december 28 of last year his cancer came back- still in treatment for esophageal cancer. Pt having issues with constipation. Pt is having a Bm every other day - takes miralax as needed and dulcolax. Occasional issues with acid reflux or nausea- " not a lot." denies issues swallowing, just that he gets real " horse" after his chemo. Pt has a history of radiation with prostate cancer. documented in this encounter Plan of Treatment Upcoming Encounters Date Type Specialty Care Team Description 05/28/2023 Imaging Radiology 05/30/2023 Laboratory Laboratory Portal Lab [facility] [address] [facility] [place] [address] 05/31/2023 Hem/Onc Treatment Hematology Oncology 06/05/2023 Office Visit Hematology Oncology Nik Melo MD [address] [place] [address] 08/14/2023 Office Visit Gastroenterology Roz Tracey MD [address] [place] [address] 08/21/2023 Procedure Only Urology Cm Rhodes MD [address] [facility] [address] [place] [address] Health Maintenance Due [...] encounter Medical Devices Implanted Type Area Director Records Management Device Identifier Shelf Expiration Date Model / Serial / Lot Cath Power Port 6fr Clearvue - [id number] Implanted:Qty : 1 on 08/10/2021 by Alexander Rodriguez MD at OR [facility] [place] Left: Subclavian CR BARD : PERIPHERAL VASCULAR 08/21/2021 [id number] / / documented as of this encounter Visit Diagnoses Diagnosis Cancer cachexia (HCC)- Primary documented in this encounter Advance Directives Latest [...] and were consensually agreed upon. Care Teams Building Maintenance Custodian Relationship Specialty Start Date End Date Hortencia Plata PA-C [address] [place] [address] PCP - General Physician Technician Biological Health 02/08/18 documented as of this encounter
--- OUTSIDE RECORDS SUMMARY | 2023-06-27 07:33 | External Medical Summary ---
Author Name Unknown Address Unknown Organization K09:[facility] [place] [address] Laboratory Report Ordering Provider Test Date Status SHAY CH 05/17/2023 10:23:11 Final Observation Date Value Abnormality Reference (Units ) Status SYNC LEUKOCYTES IN BLOOD BY AUTOMATED COUNT 05/17/2023 10:23:11 7.77 4.00-10.80 (K/uL) Final Segs 05/17/2023 10:23:11 66.2 40.0-75.0 (%) Final Lymphs % 05/17/2023 10:23:11 22.1 18.0-42.0 (%) Final Monos 05/17/2023 10:23:11 8.8 1.0-11.0 (%) Final Eosinophils 05/17/2023 10:23:11 2.4 0.0-6.0 (%) Final Basos 05/17/2023 10:23:11 0.5 0.0-2.0 (%) Final Absolute Segs 05/17/2023 10:23:11 5.14 1.80-7.70 (K/uL) Final Lymphs, absolute 05/17/2023 10:23:11 1.72 1.00-4.80 (K/ul) Final Monos, Abs 05/17/2023 10:23:11 0.68 0.00-1.10 (K/uL) Final Eos, Abs 05/17/2023 10:23:11 0.19 0.00-0.70 (K/uL) Final Basos, Abs 05/17/2023 10:23:11 0.04 0.00-0.20 (K/uL) Final Performing Location [facility] [place] [address]
--- OUTSIDE RECORDS SUMMARY | 2023-06-27 07:33 | External Medical Summary | Summary of Care ---
Author Name Unknown Organization [facility] [address] [facility] [address] Phone [phone] Care Team Providers Care Food Porter Name Role Phone Hortencia Leal PA-C Primary Care Provid er Encounter Details Date Type Department Care Team Description 05/23/2023 Telephone Hematology/Oncology [facility] [place] [address] [place] [address] Services, Scheduling [address] [place] [address] Allergies Active Allergy Reactions Severity Noted Date [...] before bedtime. As needed . 0 Active [place]-3 Fatty Acids (FISH OIL) 1000 MG Capsule [...] 05/24. I spoke with Karen at the welcome desk agent and she advised that I should speak [...] Description 05/28/2023 Imaging Radiology 05/30/2023 Laboratory [facility] [address] [place] [address] 05/31/2023 Hem/Onc Treatment Hematology Oncology 06/05/2023 Office Visit Hematology Oncology Nik Melo MD [address] [place] [address] 08/14/2023 Office Visit Gastroenterology Roz Tracey MD [address] [place] [address] 08/21/2023 Procedure Only Urology Cm Rhodes MD [...] encounter Medical Devices Implanted Type Area Supervisor Billposting Device Identifier Shelf Expiration Date Model / Serial / Lot Cath Power Port 6fr Clearvue - [id number] Implanted:Qty : 1 on 08/10/2021 by Alexander Rodriguez MD at [place] [facility] [place] Left: Subclavian CR BARD : PERIPHERAL VASCULAR 08/21/2021 [id number] / / documented as of this encounter [...] and were consensually agreed upon. Care Teams Food Porter Relationship Specialty Start Date End Date Hortencia Leal PA-C [address] [facility] [address] PCP - General Physician Clock Mechanic 02/08/18 documented as of this encounter
--- OUTSIDE RECORDS SUMMARY | 2023-06-27 07:33 | External Medical Summary | Summary of Care ---
Author Name Unknown Organization [facility] Address 100 [facility] [place] [address] Phone [phone] Care Team Providers Care Jumpbasting Armhole Baster Name Role Phone Hortencia Leal PA-C Primary Care Provid er Encounter Details Date Type Department Care Team Description 05/09/2023 Orders Only Hematology/Oncology [place] [facility] [place] [address] Nik Melo MD 200 [facility] [place] [address] Allergies Active Allergy Reactions Severity Noted Date Comments Amlodipine 11/02/2020 dizziness Codeine Sulfate Other (Please comment) 10/26/19 11 hyperactivity Hydrochlorothiazide 11/02/2020 hypercalcemia Oxaliplatin 02/09/2022 Infusion related reaction documented as of this encounter (statuses as of 05/09/2023) Medications Medication Sig Dispensed Refills Start Date [...] before bedtime. As needed . 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 documented as of this encounter (statuses as of 05/09/2023) Immunizations Name Administration Dates Next Due COVID-19 [...] Date Type Specialty Care Team Description 05/17/2023 Laboratory Laboratory [place], Lab Scenery 200 [facility] [place] [address] 05/17/2023 Hem/Onc Treatment Hematology Oncology [place], Chair 7 Hem Onc Scenery [address] [place] [address] 05/28/2023 Imaging Radiology 06/05/2023 Office Visit Hematology Oncology Nik Melo MD [address] [place] [address] 08/21/2023 Procedure Only Urology Cm Rhodes MD [address] [place] [address] 09/10/2023 Office Visit Gastroenterology Roz Tracey MD [address] [place] [address] Health Maintenance Due Date Last Done Comments [...] this encounter Medical Devices Implanted Type Area Corral Boss Device Identifier Shelf Expiration Date Model / Serial / Lot Cath Power Port 6fr Clearvue - [id number] Implanted:Qty : 1 on 08/10/2021 by Alexander Rodriguez MD at [facility] Left: Subclavian CR BARD : PERIPHERAL VASCULAR 08/21/2021 [id number] / / documented as of this encounter [...] and were consensually agreed upon. Care Teams Jumpbasting Armhole Baster Relationship Specialty Start Date End Date Hortencia Leal PA-C [address] [place], [place] [address] PCP - General Physician Fat Purification Worker 02/08/18 documented as of this encounter
--- OUTSIDE RECORDS SUMMARY | 2023-06-27 07:33 | External Medical Summary | Summary of Care ---
Author Name Unknown Organization [facility] Address 100 [facility] [place] [address] Phone [phone] Care Team Providers Care It Training Specialist Name Role Phone Hortencia Leal PA-C Primary Care Provid er Reason for Visit * Reason Onset Date Comments Medication Pre-auth 05/22/2023 Dronabinol Encounter Details Date Type Department Care Team Description 05/22/2023 Telephone Gastroenterology, [facility] [address] [place] [address] Roz Tracey MD [address] [place] [address] Medication Pre-auth (Dronabinol) Allergies Active Allergy Reactions Severity Noted [...] before bedtime. As needed . 0 Active [place]-3 Fatty Acids (FISH OIL) 1000 MG Capsule [...] care: Self-administered - route pre-cert request to [id number] Office Information: Prescriber: Roz Tracey MD documented in this encounter Plan of Treatment Upcoming Encounters Date Type Specialty Care Team Description 05/28/2023 Imaging Radiology 05/30/2023 Laboratory Laboratory [place], Enrique Sc[address]ery [address] [place] [address] 05/31/2023 Hem/Onc Treatment Hematology Oncology 06/05/2023 Office Visit Hematology Oncology Nik Melo MD [address] [place] [address] 08/14/2023 Office Visit Gastroenterology Roz Tracey MD [address] [place] [address] 08/21/2023 Procedure Only Urology Cm Rhodes MD [address] [place] [address] [facility] [place] [address] Health Maintenance Due Date Last Done Comments [...] this encounter Medical Devices Implanted Type Area Plywood Scarfer Tender Device Identifier Shelf Expiration Date Model / Serial / Lot Cath Power Port 6fr Lisavue - [id number] Implanted:Qty : 1 on 08/10/2021 by Alexander Rodriguez MD at OR [facility] Left: Subclavian CR BARD : PERIPHERAL VASCULAR 08/21/2021 [id number] / / documented as of this encounter [...] and were consensually agreed upon. Care Teams It Training Specialist Relationship Specialty Start Date End Date Hortencia Leal PA-C [address] [facility] [id number] PCP - General Physician Engine Boss 02/08/18 documented as of this encounter
--- OUTSIDE RECORDS SUMMARY | 2023-06-27 07:33 | External Medical Summary | Summary of Care ---
Author Name Unknown Organization [facility] Address 100 [facility] [place] [address] Phone [phone] Care Team Providers Care Mail Order Clerk Name Role Phone Hortencia Leal PA-C Primary Care Provid er Reason for Visit * Reason Comments Chemotherapy C4/D1 - Cyramza/Taxo l * Evaluate & Treat - Unlimited Visits (Within 10 days (routine)) - Authorized Specialty Diagnoses / Procedures Referred By Lizzie t Referred To Contact *Hem/Onc* Diagnoses Adenocarcinoma in situ of esophagus Prostate cancer (HCC) Procedures EVAL AND TREAT Tai Mccray MD 200 [facility] [place] [address] Referral ID Status Reason Start Date Expiration Date Visits Requested Visits Authorized [id number] Authorized Specialty Services Required 2 09/11/2023 999 999 Encounter Details Date Type Department Care Team Description 05/17/2023 Hem/Onc Treatment Hematology/Oncology Treatment, [place] 200 [facility] [place] [id number] Maddy, Chair 7 Hem Onc [facility] [address] [place] [address] 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 As needed . 0 Active [place]-3 Fatty Acids (FISH OIL) 1000 MG Capsule [...] Sign Reading Time Taken Comments Blood Pressure 147/88 05/17/2023 11:21 AM EDT Pulse 78 05/17/2023 11:21 AM EDT Temperature 36 C (96.8 F) 05/17/2023 11:21 AM EDT Respiratory Rate 18 05/17/2023 11:21 AM EDT Oxygen Saturation 95% 05/17/2023 11:21 AM EDT Inhaled Oxygen Concentration - - Weight 73.1 kg (161 lb 3.2 oz) 05/17/2023 11:21 AM EDT Height - - Body Mass Index 27.66 01/16/2023 10:35 AM EDT documented in this encounter Nursing Notes * Paty Langford RN - 05/17/2023 3:59 PM EDT Chair 1. Patient arrived today for C4/D1 - Cyramza/Taxol. Patient was unable to provide a urine sample today. Since patient did do a urine sample last week on 05/09 and did not have treatment, Dr. Mccray was okay to use this urine sample fir treatment today with Cyramza. Labs overall are around patient's norm. Patient has lost 12 kg (about 26.5 lbs) since starting treatment in December (treatment plan weight). Patient also had not been tolerating the treatments very well and when pt saw Dr. Melo last on 05/10, Dr. Melo dose reduced by 20%. Upon assessment today of patient's weight, since patient has lost so much, weight was reviewed with Dr. Mccray and decision was m violeta to adjust dose based on patient's weight as well. Patient now is getting the 20% dose reductionand is also adjusted further for the weight decrease. Chemo agents Taxol/Cyramza Appetite fair/poor Nausea/Vomiting some nausea now but no vomiting any more lately Diarrhea not lately Constipation no Mucositis no Fatigue yes, feeling tired today and overall feeling tired Bleeding no Infection no Rash no Numbness tingling no Pain no Radiation no ABN Labs Okay for treatment today, NWL for pts normal Alt in Tx: N/A Return in 1 week Safety and Risk for Injury Patient will remain free from injury. Ensure appropriate safety devices are available. Provide and maintain safe environment. Goals: Patient will remain free from injury. [...] stable condition and denied any further needs. documented in this encounter Plan of Treatment Upcoming Encounters Date Type Specialty Care Team Description 05/23/2023 Laboratory Laboratory [place], Lab Scenery [address] [place] [address] 05/24/2023 Hem/Onc Treatment Hematology Oncology [place], Chair 8 Hem Onc Scenery [address] [place] [address] 05/28/2023 Imaging Radiology 05/30/2023 Laboratory Laboratory [place], Lab Scenery [address] [place] [address] 05/31/2023 Hem/Onc Treatment Hematology Oncology 06/05/2023 Office Visit Hematology Oncology Nik Melo MD [address] [place] [address] 08/21/2023 Procedure Only Urology Cm Rhodes MD [address] [place] [address] [place] [address] 09/10/2023 Office Visit Gastroenterology Roz Tracey MD [address] [place] [address] Health Maintenance Due Date Last Done Comments [...] this encounter Medical Devices Implanted Type Area Humanities Teacher Device Identifier Shelf Expiration Date Model / Serial / Lot Cath Power Port 6fr Clearvue - [id number] Implanted:Qty : 1 on 08/10/2021 by Alexander Rodriguez MD at [facility] Left: Subclavian CR BARD : PERIPHERAL VASCULAR 08/21/2021 [id number] / / documented as of this encounter [...] PRN Other, Hypersensitivity Reaction, Starting on Chandrika 05/17/23 at 1217, Until Sun05/18/23 at 1216, For 24 hours EPINEPHrine 1 MG/ML inj 0.3 mg 0.3 mg, Intramuscular, ONCE PRN Other, Hypersensitivity Reaction or Anaphylaxis, Starting on Chandrika 05/17/23 at 1217, Until Sun05/18/23 at 1216, For 24 hours hEParin 100 UNIT/ML Lock Flush inj 500 Units 500 Units (5 mL), IV Lock, PRN Other, IV Flush, Starting on Chandrika 05/17/23 at 1217, Until Sun05/18/23 at 1216, For 24 hours, Do not flush if lock, PICC, or central line not in place; IV infusing or unable to flush. Given 05/17/2023 3:06 PM EDT 500 Units Hydrocortisone Sod Suc (PF) (Solu-Cortef) inj 100 mg 100 mg, IV Push, ONCE PRN Other, Hypersensitivity Reaction, Starting on Sun05/17/23 at 1217, Until Sun05/18/23 at 1216, For 24 hours NSS infusion 500 mL, Intravenous, at 50 mL/hr, CONTINUOUS, Starting on Sun05/17/23 at 1330, Until Sun05/17/23 at 2329 Start Infusion 05/17/2023 12:08 PM EDT 500 mL 50 mL/hr sodium chloride 0.9 % flush central line 10 mL 10 mL, IV Push, PRN Other, IV Flush, Starting on Sun05/17/23 at 1217, Until Sun05/18/23 at 1216, For 24 hours, Do not flush if lock, PICC, or central line not in place; IV infusing or unable to flush. Given 05/17/2023 3:05 PM EDT 10 mL Inactive Administered Medications - up to 3 most recent administrations Medication Order MAR Action Action Date Dose Rate Site Acetaminophen (Tylenol) tab 650 mg 650 mg, Oral, ONCE, On Chandrika 05/17/23 at 1330, For 1 dose, Maximum of 4 grams (4000 mg) per day. Given 05/17/2023 12:25 PM EDT 650 mg Dexamethasone (Decadron) tab 12 mg 12 mg, Oral, ONCE, On Chandrika 05/17/23 at 1300, For 1 dose Given 05/17/2023 12:24 PM EDT 12 mg diphenhydrAMINE (Benadryl) 25 mg in NSS 50 mL ivpb 25 mg, IV Piggyback, ONCE, 1 dose, On Sun05/17/23 at 1300 Start Infusion 05/17/2023 12:27 PM EDT 25 mg 200 mL/hr Famotidine (Pepcid) tab 20 mg 20 mg, Oral, ONCE, On Chandrika 05/17/23 at 1330, For 1 dose Given 05/17/2023 12:24 PM EDT 20 mg PACLitaxel (Taxol) 116 mg in NSS 250 mL infusion 116 mg (rounded from 116.48 mg = 64 mg/m2 1.82 m2 Treatment Plan BSA from Recorded weight), IV Piggyback, at 250 mL/hr Administer over 60 Minutes, Administer through 0.22 micron low protein binding filter!, ONCE, 1 dose, On Chandrika 05/17/23 at 1500 Start Infusion 05/17/2023 1:51 PM EDT 116 mg 250 mL/hr Palonosetron (Aloxi) inj SOLN 0.25 mg 0.25 mg, IV Push, ONCE, On Chandrika 05/17/23 at 1300, For 1 dose, Restricted per [facility] antiemetic guidelines Given 05/17/2023 12:24 PM EDT 0.25 mg Ramucirumab (Cyramza) 500 mg in NSS 250 mL infusion 500 mg (rounded from 467.84 mg = 6.4 mg/kg 73.1 kg Treatment plan Recorded weight), IV Piggyback, ONCE, 1 dose, On Chandrika 05/17/23 at 1400, Administer over 30 Minutes, Administer though 0.22 micron low protein binding filter! Start Infusion 05/17/2023 1:12 PM EDT 500 mg 500 mL/hr documented in this encounter Advance Directives Latest [...] and were consensually agreed upon. Care Teams Mail Order Clerk Relationship Specialty Start Date End Date Hortencia Leal PA-C [address] [place] [address] PCP - General Physician Trailer Tank Truck Driver 02/08/18 documented as of this encounter
--- OUTSIDE RECORDS SUMMARY | 2023-06-27 07:33 | External Medical Summary ---
Author Name Unknown Address Unknown Organization K01:[facility] - [address] [place] [address] Laboratory Report Ordering Provider Test Date Status SHAY CH 05/17/2023 10:23:11 Final Observation Date Value Abnormality Reference (Units ) Status TSH 05/17/2023 10:23:11 1.24 0.27-4.20 (uIU/mL) Final Performing Location [facility] - [address] [place] [address]
--- OUTSIDE RECORDS SUMMARY | 2023-06-27 07:33 | External Medical Summary | Summary of Care ---
Author Name Unknown Organization [facility] Address [address] [facility] [address] Phone [phone] Care Team Providers Care Historic Interpreter Name Role Phone Hortencia Leal PA-C Primary Care Provid er Reason for Visit * Reason Onset Date Comments Returning Call 05/23/2023 Encounter Details Date Type Department Care Team Description 05/23/2023 Telephone Hematology/Oncology [facility] [place] [address] [place] [address] Services, Scheduling [address] [place] [address] Returning Call Allergies Active Allergy Reactions Severity [...] before bedtime. As needed . 0 Active [place]-3 Fatty Acids (FISH OIL) 1000 MG Capsule [...] Encounter - Venita Byers RN - 05/23/2023 10:24 AM EDT Called patient- offered that if he is having vertigo, we could still have him come in for labs and possible hydration, he may be dehydrated. Patient declined, states that he prefers to just wait until next week to come in. Advised him to call our office if he changes his mind or if he has any othernew/ worsening symptoms. He verbalized understanding and appreciation. Confirmed appts next week for PET scan and labs/ treatment. * Telephone Encounter - TANI Mckeon - [...] patients request. Thanks! * Telephone Encounter - Lakeisha Celaya, TANI - 05/23/2023 9:05 AM EDT We received a call from Heath stating that he was not feeling well and wanted to reschedule his labappointment for today 05/23 as well as his treatment appointment for tomorrow 05/24. I spoke with Karen at the front end assistant and she advised that I should speak [...] Description 05/28/2023 Imaging Radiology 05/30/2023 Laboratory Laboratory MaddyEnrique Scenery [address] [place] [address] 05/31/2023 Hem/Onc Treatment Hematology Oncology 06/05/2023 Office Visit Hematology Oncology Nik Melo MD [address] [place] [address] 08/14/2023 Office Visit Gastroenterology Roz Tracey MD [address] [place] [address] 08/21/2023 Procedure Only Urology Cm Rhodes MD [...] this encounter Medical Devices Implanted Type Area Military Personnel Specialist Device Identifier Shelf Expiration Date Model / Serial / Lot Cath Power Port 6fr Clearvue - [id number] Implanted:Qty : 1 on 08/10/2021 by Alexander Rodriguez MD [place] [facility] Left: Subclavian CR BARD : PERIPHERAL VASCULAR 08/21/2021 [id number] / / documented as of this encounter [...] and were consensually agreed upon. Care Teams Historic Interpreter Relationship Specialty Start Date End Date Hortencia Leal PA-C [address] [facility], [place] [id number] PCP - General Physician Reading Recovery Teacher 02/08/18 documented as of this encounter
--- OUTSIDE RECORDS SUMMARY | 2023-06-27 07:33 | External Medical Summary ---
Author Name Unknown Address Unknown Organization K09:[facility] [place] [address] Laboratory Report Ordering Provider Test Date Status SHAY CH 05/17/2023 10:23:11 Final Observation Date Value Abnormality Reference (Units ) Status BUN 05/17/2023 10:23:11 24 Above high normal 6-20 (mg/dL) Final Creatinine 05/17/2023 10:23:11 2.1 Above high normal 0.6-1.2 (mg/dL) Final Glomerular filtration rate/1.73 sq M.predicted [Volume Rate/Area] in Serum, Plasma or Blood by Creatinine-based formula (CKD-EPI) 05/17/2023 10:23:11 32 Below low normal >=60 (mL/min) Final Performing Location [facility] [place] [address]
--- OUTSIDE RECORDS SUMMARY | 2023-06-27 07:33 | External Medical Summary | Summary of Care ---
Author Name Unknown Organization [facility] Address 100 [facility] [place] [address] Phone [phone] Care Team Providers Care Technology Support Analyst Name Role Phone Hortencia Leal PA-C Primary Care Provid er Reason for Visit * Reason Onset Date Comments Medication Pre-auth 05/22/2023 Dronabinol Encounter Details Date Type Department Care Team Description 05/22/2023 Telephone Gastroenterology, [facility] [address] [place] [address] Roz Tracey MD [address] [place] [address] Medication Pre-auth (Dronabinol) Allergies Active Allergy Reactions Severity Noted Date Comments Amlodipine 11/02/2020 dizziness Codeine Sulfate Other (Please comment) 10/26/19 11 hyperactivity Hydrochlorothiazide 11/02/2020 hypercalcemia Oxaliplatin 02/09/2022 Infusion related reaction documented as of this encounter (statuses as of 05/22/2023) Medications Medication Sig Dispensed Refills Start Date [...] before bedtime. As needed . 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 documented as of this encounter (statuses as of 05/22/2023) Immunizations Name Administration Dates Next Due COVID-19 [...] care: Self-administered - route pre-cert request to [id number] Office Information: Prescriber: Roz Tracey MD documented in this encounter Plan of Treatment Upcoming Encounters Date Type Specialty Care Team Description 05/23/2023 Laboratory Laboratory [place], Lab Scenery [address] [place] [address] 05/24/2023 Hem/Onc Treatment Hematology Oncology Maddy, Chair 8 Hem Onc Scenery [address] [place] [address] 05/28/2023 Imaging Radiology 05/30/2023 Laboratory Laboratory [place], Lab Scenery [address] [place] [address] 05/31/2023 Hem/Onc Treatment Hematology Oncology 06/05/2023 Office Visit Hematology Oncology Nik Melo MD [address] [place] [address] 08/14/2023 Office Visit Gastroenterology Roz Tracey MD [address] [place] [address] 08/21/2023 Procedure Only Urology Cm Rhodes MD [address] [place] [address] [place] [address] Health Maintenance Due Date Last [...] this encounter Medical Devices Implanted Type Area Back Stayer Device Identifier Shelf Expiration Date Model / Serial / Lot Cath Power Port 6fr Clearvue - [id number] Implanted:Qty : 1 on 08/10/2021 by Alexander Rodriguez MD at [place] [facility] Left: Subclavian CR BARD : PERIPHERAL VASCULAR 08/21/2021 [id number] / / documented as of this encounter [...] and were consensually agreed upon. Care Teams Technology Support Analyst Relationship Specialty Start Date End Date Hortencia Leal PA-C [address] [facility] [place] [address] PCP - General Physician Batching Operator 02/08/18 documented as of this encounter
--- OUTSIDE RECORDS SUMMARY | 2023-06-27 07:33 | External Medical Summary | Summary of Care ---
Author Name Unknown Organization [facility] Address 100 [address] [facility] [place] [address] Phone [phone] Care Team Providers Care Farm Equipment Engineer Name Role Phone Hortencia Leal PA-C Primary Care Provid er Reason for Visit * Reason Onset Date Comments Appointment 05/09/2023 Encounter Details Date Type Department Care Team Description 05/09/2023 Telephone Hematology/Oncology Treatment, [place] [address] [place] [phone] Nik Melo MD [address] [place] [address] Appointment Allergies Active Allergy Reactions Severity Noted Date [...] before bedtime. As needed . 0 Active [place]-3 Fatty Acids (FISH OIL) 1000 MG Capsule [...] * Telephone Encounter - TANI Johnson - 05/09/2023 1:22 PM EDT Per nursing canceled appt for treatment for tomorrow. * Telephone Encounter - Venita Byers RN - 05/09/2023 12:[address] Melo saw patient- states that it was discussed at appt that treatment tomorrow should be cancelled, patient should come 05/17/23 as previously scheduled. Scheduling: please cancel treatment appt tomorrow. Thanks! documented in this encounter Plan of Treatment Upcoming Encounters Date Type Specialty Care Team Description 05/17/2023 Laboratory Laboratory [place], Lab Scenery [address] [place] [address] 05/17/2023 Hem/Onc Treatment Hematology Oncology [place], Chair 7 Hem Onc Scenery [address] [place] [address] 05/28/2023 Imaging Radiology 06/05/2023 Office Visit Hematology Oncology Nik Melo MD [address] [place] [address] 08/21/2023 Procedure Only Urology Cm Rhodes MD [address] [place] [address] 09/10/2023 Office Visit Gastroenterology Roz Tracey MD [address] [place] [address] Health Maintenance Due Date Last Done Comments [...] this encounter Medical Devices Implanted Type Area Reimbursement Consultant Device Identifier Shelf Expiration Date Model / Serial / Lot Cath Power Port 6fr Lisavsebastian - [id number] Implanted:Qty : 1 on 08/10/2021 by Alexander Rodriguez MD at [place] [facility] [place] Left: Subclavian CR BARD : PERIPHERAL VASCULAR 08/21/2021 [id number] / / documented as of this encounter [...] and were consensually agreed upon. Care Teams Farm Equipment Engineer Relationship Specialty Start Date End Date Hortencia Leal PA-C [address] [facility] [address] PCP - General Physician Storage Consultant 02/08/18 documented as of this encounter
--- OUTSIDE RECORDS SUMMARY | 2023-06-27 07:33 | External Medical Summary | Summary of Care ---
Author Name Unknown Organization [facility] Address [address] [facility] [place] [address] Phone [phone] Care Team Providers Care Plate Mounter Name Role Phone Hortencia Leal PA-C Primary Care Provid er Encounter Details Date Type Department Care Team Description 05/21/2023 Orders Only Hematology/Oncology [facility] [place] [address] [facility] [place] [address] Nik Melo MD [address] [facility] [place] [address] Allergies Active Allergy Reactions Severity Noted Date Comments Amlodipine 11/02/2020 dizziness Codeine Sulfate Other (Please comment) 10/26/19 11 hyperactivity Hydrochlorothiazide 11/02/2020 hypercalcemia Oxaliplatin 02/09/2022 Infusion related reaction documented as of this encounter (statuses as of 05/21/2023) Medications Medication Sig Dispensed Refills Start Date [...] before bedtime. As needed . 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 documented as of this encounter (statuses as of 05/21/2023) Immunizations Name Administration Dates Next Due COVID-19 [...] Encounters Date Type Specialty Care Team Description 05/21/2023 Office Visit Gastroenterology Roz Tracey MD [address] [place] [address] 05/23/2023 Laboratory Laboratory Maddy, Lab Scenery [address] [place] [address] 05/24/2023 Hem/Onc Treatment Hematology Oncology Maddy, Chair 8 Hem Onc Scenery [address] [place] [address] 05/28/2023 Imaging Radiology 05/30/2023 Laboratory Laboratory Maddy, Lab Scenery [address] [place] [address] 05/31/2023 Hem/Onc Treatment Hematology Oncology 06/05/2023 Office Visit Hematology Oncology Nik Melo MD 200 [place] [address] 08/21/2023 Procedure Only Urology Cm Rhodes MD [...] encounter Medical Devices Implanted Type Area Director Of Curriculum And Instruction Device Identifier Shelf Expiration Date Model / Serial / Lot Cath Power Port 6fr Clearvue - [id number] Implanted:Qty : 1 on 08/10/2021 by Alexander Rodriguez MD at OR [facility] Left: Subclavian CR BARD : PERIPHERAL VASCULAR 08/21/2021 [id number] / / documented as of this encounter [...] and were consensually agreed upon. Care Teams Plate Mounter Relationship Specialty Start Date End Date Hortencia Leal PA-C [address] [place] [id number] PCP - General Physician Barrel Finisher 02/08/18 documented as of this encounter
--- OUTSIDE RECORDS SUMMARY | 2023-06-27 07:33 | External Medical Summary | Summary of Care ---
Author Name Unknown Organization [facility] Address [address] [facility] [place] [address] Phone [phone] Care Team Providers Care Photograph Editor Name Role Phone Hortencia Leal PA-C Primary Care Provid er Reason for Visit * Reason Comments Outpatient Testing Encounter Details Date Type Department Care Team Description 05/17/2023 Laboratory Laboratory Scenery Maddy [place] [address] [place] [address] [facility] Lab [facility] [address] [facility] [place] [address] 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 [...] before bedtime. As needed . 0 Active [place]-3 Fatty Acids (FISH OIL) 1000 MG Capsule [...] Specialty Care Team Description 05/28/2023 Imaging Radiology 06/05/2023 Office Visit Hematology Oncology Nik Melo MD [address] 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) Prostate cancer (HCC) Encounter for long-term (current) use of medications 05/17/2023 10:23 AM EDT Health Maintenance Due [...] this encounter Medical Devices Implanted Type Area Mold Stamper Device Identifier Shelf Expiration Date Model / Serial / Lot Cath Power Port 6fr Clearvue - [id number] Implanted:Qty : 1 on 08/10/2021 by Alexander Rodriguez MD at OR [facility] [place] Left: Subclavian CR BARD : PERIPHERAL VASCULAR 08/21/2021 [id number] / / documented as of this encounter Procedures Procedure Name Priority Date/Time Associated Diagnosis Comments DIFFERENTIAL, AUTOMATED STAT 05/17/2023 10:23 AM EDT 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) COMPREHENSIVE METABOLIC PANEL STAT 05/17/2023 10:23 AM EDT Malignant neoplasm [...] 10.80 K/uL 05/17/2023 10:27 AM EDT [facility] 56-02 Neutrophils % 66.2 40.0 - 75.0 % 05/17/2023 10:27 AM EDT [facility] 56-02 Lymphocytes % 22.1 18.0 - 42.0 % 05/17/2023 10:27 AM EDT [facility] 56-02 Monocytes % 8.8 1.0 - 11.0 % 05/17/2023 10:27 AM EDT [facility] 56-02 Eosinophils % 2.4 0.0 - 6.0 % 05/17/2023 10:27 AM EDT [facility] 56-02 Basophils % 0.5 0.0 - 2.0 % 05/17/2023 10:27 AM EDT [facility] 56-02 Absolute Neutrophils 5.14 1.80 - 7.70 K/uL 05/17/2023 10:27 AM EDT [facility] 56-02 Absolute Lymphocytes 1.72 1.00 - 4.80 K/ul 05/17/2023 10:27 AM EDT [facility] 56-02 Absolute Monocytes 0.68 0.00 - 1.10 K/uL 05/17/2023 10:27 AM EDT [facility] 56-02 Absolute Eosinophils 0.19 0.00 - 0.70 K/uL 05/17/2023 10:27 AM EDT [facility] 56-02 Absolute Basophils 0.04 0.00 - 0.20 K/uL 05/17/2023 10:27 AM EDT [facility] 56-02 Blood Venous blood specimen / Unknown Venipuncture / Unknown 05/17/2023 10:23 AM EDT 05/17/2023 10:23 AM EDT Nik Melo MD LAB BLOOD ORDERA BLES [facility] [address]- [address] [place] [address] * (ABNORMAL) CBC (05/17/2023 10:23 AM EDT) [facility] WBC 7.77 4.00 - 10.80 K/uL 05/17/2023 10:27 AM EDT [facility] 56 RBC 3.62 4.50 - 5.25 M/uL 05/17/2023 10:27 AM EDT [facility] 56 HGB 9.9(L) 14.0 - 16.8 g/dL 05/17/2023 10:27 AM EDT [facility] 56 HCT 33.9(L) 40.0 - 48.4 % 05/17/2023 10:27 AM EDT [facility] 56 MCV 93.6 82.0 - 99.5 fL 05/17/2023 10:27 AM EDT [facility] 56 MCH 27.3 27.0 - 34.0 pg 05/17/2023 10:27 AM EDT [facility] 56 MCHC 29.2 32.0 - 36.0 g/dL 05/17/2023 10:27 AM EDT [facility] 56 RDW 21.4 11.5 - 15.5 % 05/17/2023 10:27 AM EDT [facility] 56- PLT 172 140 - 400 K/uL 05/17/2023 10:27 AM EDT [facility] 56- MPV 8.9 6.6 - 11.1 fL 05/17/2023 10:27 AM EDT [facility] 56 Blood Venous blood specimen / Unknown Venipuncture / Unknown 05/17/2023 10:23 AM EDT 05/17/2023 10:23 AM EDT Nik Melo MD LAB BLOOD ORDERA BLES [facility] [address] [place] [address] * (ABNORMAL) COMPREHENSIVE METABOLIC PANEL (05/17/2023 10:23 AM EDT) BUN 24(H) 6 - 20 mg/dL 05/17/2023 10:50 AM EDT [facility] Creatinine 2.1(H) 0.6 - 1.2 mg/dL 05/17/2023 10:50 AM EDT [facility] Estimated Glomerular Filtration Rate 32(L) >=60 mL/min 05/17/2023 10:50 AM EDT [facility] Comment:eGFR is calculated b ased on the CKD-EPI 2020 equation Sodium 138 135 - 146 mmol/L 05/17/2023 10:50 AM T [facility] Potassium 4.1 3.5 - 5.1 mmol/L 05/17/2023 10:50 AM EDT [facility] Chloride 102 98 - 107 mmol/L 05/17/2023 10:50 AM EDT [facility] CO2 23 22 - 32 mmol/L 05/17/2023 10:50 AM EDT [facility] Anion Gap 13 7 - 15 mmol/L 05/17/2023 10:50 AM EDT [facility] Glucose 171(H) 70 - 120 mg/dL 05/17/2023 10:50 AM EDT [facility] Albumin 4.0 3.8 - 5.0 g/dL 05/17/2023 10:50 AM EDT [facility] 56 AST 18 10 - 50 U/L 05/17/2023 10:50 AM T [facility] 56 Comment:Result may be falsel y elevated due to hemolysis. Alkaline Phosphatase 68 35 - 130 U/L 05/17/2023 10:50 AM EDT [facility] 56 Bilirubin, Total 0.4 <=1.2 mg/dL 05/17/2023 10:50 AM EDT [facility] 56 Calcium 9.5 8.4 - 10.2 mg/dL 05/17/2023 10:50 AM EDT [facility] 56- Protein 7.0 6.0 - 8.3 g/dL 05/17/2023 10:50 AM EDT [facility] 56- ALT 6(L) 10 - 50 U/L 05/17/2023 10:50 AM EDT [facility] 56 Blood Venous blood specimen / Unknown Venipuncture / Unknown 05/17/2023 10:23 AM EDT 05/17/2023 10:23 AM EDT Nik Melo MD LAB BLOOD [address] [address]ES [facility] 56- [address] [place] [facility] [place] [address] documented in this encounter Visit Diagnoses Diagnosis [...] and were consensually agreed upon. Care Teams Photograph Editor Relationship Specialty Start Date End Date Hortencia Leal PA-C [address] [facility], [place] [address] PCP - General Physician Helper Coordinator 02/08/18 documented as of this encounter
--- OUTSIDE RECORDS SUMMARY | 2023-06-27 07:34 | External Medical Summary ---
Author Name Unknown Address Unknown Organization [id number]:[facility] [place] [address] Laboratory Report Ordering Provider Test Date Status SHAY CH 05/09/2023 10:30:18 Final Observation Date Value Abnormality Reference (Units ) Status SYNC LEUKOCYTES IN BLOOD BY AUTOMATED COUNT 05/09/2023 10:30:18 8.14 4.00-10.80 (K/uL) Final Segs 05/09/2023 10:30:18 66.4 40.0-75.0 (%) Final Lymphs % 05/09/2023 10:30:18 18.7 18.0-42.0 (%) Final Monos 05/09/2023 10:30:18 12.4 Above high normal 1.0-11.0 (%) Final Eosinophils 05/09/2023 10:30:18 2.1 0.0-6.0 (%) Final Basos 05/09/2023 10:30:18 0.4 0.0-2.0 (%) Final Absolute Segs 05/09/2023 10:30:18 5.41 1.80-7.70 (K/uL) Final Lymphs, absolute 05/09/2023 10:30:18 1.52 1.00-4.80 (K/ul) Final Monos, Abs 05/09/2023 10:30:18 1.01 0.00-1.10 (K/uL) Final Eos, Abs 05/09/2023 10:30:18 0.17 0.00-0.70 (K/uL) Final Basos, Abs 05/09/2023 10:30:18 0.03 0.00-0.20 (K/uL) Final Performing Location [facility] [place] [address]
--- OUTSIDE RECORDS SUMMARY | 2023-06-27 07:34 | External Medical Summary ---
Author Name Unknown Address Unknown Organization [id number]:[facility] [place] [address] Laboratory Report Ordering Provider Test Date Status SHAY CH 05/09/2023 10:30:18 Final Observation Date Value Abnormality Reference (Units ) Status BUN 05/09/2023 10:30:18 23 Above high normal 6-20 (mg/dL) Final Creatinine 05/09/2023 10:30:18 2.1 Above high normal 0.6-1.2 (mg/dL) Final Glomerular filtration rate/1.73 sq M.predicted [Volume Rate/Area] in Serum, Plasma or Blood by Creatinine-based formula (CKD-EPI) 05/09/2023 10:30:18 32 Below low normal >=60 (mL/min) Final Performing Location [facility] [place] [place] [address]
--- OUTSIDE RECORDS SUMMARY | 2023-06-27 07:34 | External Medical Summary | Summary of Care ---
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) Procedures PET CT SKULL BASE TO MID-THIGH Nik Melo MD [address] [place] [address] Referral ID Status Reason Start Date Expiration Date V isits Requested Visits Authorized [id number] Authorized 06/09/2023 999 999 Reason for Visit * Reason Comments Chemotherapy Chemo/recheck * Evaluate & Treat - Unlimited Visits (Within 10 days (routine)) - Authorized Specialty Diagnoses / Procedures Referred By Lizzie reno Referred To Contact *Hem/Onc* Diagnoses Adenocarcinoma in situ of esophagus Prostate cancer (HCC) Procedures EVAL AND TREAT Tai Mccray MD [address] [place] [address] Referral ID Status Reason Start Date Expiration Date Visits Requested Visits Authorized [id number] Authorized Specialty Services Required 2 09/11/2023 999 999 Encounter Details Date Type Department Care Team Description 05/09/2023 Office Visit Hematology/Oncology Stefani Castañeda [place] 200 [facility] [place] [address] Nik Melo MD 200 [facility] [place] [address] 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 As needed . 0 Active [place]-3 Fatty Acids (FISH OIL) 1000 MG Capsule [...] Sign Reading Time Taken Comments Blood Pressure 132/85 05/09/2023 10:53 AM EDT Pulse 92 05/09/2023 10:53 AM EDT Temperature 36.8 C (98.3 F) 05/09/2023 10:53 AM E DT Respiratory Rate 16 05/09/2023 10:53 AM EDT Oxygen Saturation 97% 05/09/2023 10:53 AM EDT Inhaled Oxygen Concentration - - Weight 74 kg (163 lb 3.2 oz) 05/09/2023 10:53 AM EDT Height - - Body Mass Index 28 01/16/2023 10:35 AM EDT documented in this encounter Progress Notes * Nik Melo MD - 05/09/2023 11:21 AM EDT Outpatient Consult Note Data Source: Patient, Epic record. Data Source: Patient, Epic record. 05/09/2023 11:21 AM Heath [place] [id number] 77 year old Patient Encounter: HEMATOLOGY/ONCOLOGY [facility] Cancer Diagnosis: -Metastatic esophageal cancer-laparoscopic biopsy of the peritoneal nodule which is positive for metastatic disease - Prostate cancer,pT2, Group IIA, Pelsor 3+4 Current Treatment: On ramcirumab Previous Treatment: Nivolumab was added on 11/02/2021 -on Eligard for the prostate cancer Received total of 9 cycles of FOLFOX.Nivolumab was added on 11/02/2021.Last chemotherapy was on02/08/2022. He had allergic reaction and subsequently FOLFOX chemotherapy was discontinued andcontinued on single agent nivolumab.Received total of 12 cycles and subsequently had disease progr ession. Received last dose of nivolumab on 12/27/2022 Oncologic History : 77-year-old male with past medical history significant for type 2 diabetes, hypertension, dyslipidemia, history of prostate cancer status post radiation therapy presented with complaint of generalized weakness, fatigue and exhausted with dyspneaonexertion. His hemoglobin was 8.5, WBC count and platelet counts were normal. Reticulocyte counts were 134, ferritin was 22 with normal folic acid and B12 level. Patient had upper endoscopy done on 07/15/2021 for evaluation of anemia and revealedulcerated mass involving 1/4 of the esophageal circumference beginning at 35 cm. There was moderate luminal narrowing of the esophagus. The mass crossed the GE junction at 40. On retroflexion, there was a large, ulcerated mass continuous with the esophageal mass. The cancer appeared to cause submucosal infiltration of approximately 1/2 of the body of the stomach.Biopsy of the masses consistent with invasive adenocarcinoma [...] PET scan was done on 07/27/2021 in showsIntensely FDG avid wall thickening of the distal esophagus, gastric fundus, and lesser gastric curvature compatible with biopsy-proven malignancy,Multiple mildly FDG avid prominent right gastric cardiac and lesser curvature lymph nodes are indeterminate (max SUV 3.9),No evidence of distant metastatic disease. Endoscopic ultrasound [...] lymph nodes seen in the perigastric and carnia hepatis area with size less than 1 cm.. Based on the endoscopic finding patient has stage T3 N2 disease. Patient was seen by Dr. Rodriguez on 08/01/2021 and he recommend neoadjuvant chemoradiation. History is also significant forprostate cancer was diagnosed in nd underwent a robotic assisted radical prostatectomy on 10/30/2011. Histopathology was consistent with adenocarcinoma moderately differentiated overall Juan score was 3+4=7with perineural invasion. Histopathology was consistent with stage T2 cwith negative margin. He did well until 2015 when hehadrising PSA and was treated with radiation therapy which she completed and 12/2015. In08/2017 he again had rising PSA and was treated with the Lupron. He received Lupron from 08/2017 till 05/2020 and then it was discontinued because of the side effects including loss of muscle mass, hot flashes and generalized fatigue. While he was on Lupron injection his PSA was normalized. Follow-up PSA on 11/01/2020 increased to 0.08fromless than 0.02.He was started on Eligard injection andreceived the 1st dose on 11/30/2020. Surgical pathology [...] 0.6 cm HISTOLOGIC TYPE: Adenocarcinoma HISTOLOGIC GRADE (Pelsor): Primary pattern is: Grade 3: single acini of variable size and separation, cribriform and papillarypatterns Secondary pattern is: Grade 3: single acini of variable size and separation, cribriform and papillary patterns Juan Score (primary + secondary) = 5-6: Moderately well differentiated Nodule #2, involves: right lateral apex and right apex Dimensions: 0.9 x 0.3 x 0.9 cm HISTOLOGIC TYPE: Adenocarcinoma HISTOLOGIC GRADE (Juan): [...] 2.1 cm HISTOLOGIC TYPE: Adenocarcinoma HISTOLOGIC GRADE (Pelsor): Primary pattern is: Grade 3: single acini of variable size and separation, cribriform and papillarypatterns Secondary pattern is: Grade 4: irregular masses of acini and fused epithelium, can show clear cells Juan Score (primary + secondary) = 7: Moderately [...] positive. Upper endoscopy which shows malignant gastric tumor found just above the GE junction and cardia [...] segment 2 suspicious for metastasis. Interval History: He is complaining of generalized weakness, poor appetite and weight loss. He lost about more than 15 lb in last few weeks. Was also recently seen in the ED with dehydration received IV fluid. LABS/IMAGING: Results for orders placed or performed in visit on 05/09/23 URINALYSIS, REFLEX TO MICROSCOPIC Result Value Ref Range Color, Urine Yellow Light Yellow, Yellow, Dark Yellow Clarity, Urine Clear Clear Glucose, Urine Negative Negative mg/dL Bilirubin, Urine Negative Negative Ketone, Urine Negative Negative mg/dL Specific [place], Urine 1.020 1.003 - 1.030 Blood, Urine Negative Negative pH, Urine 5.0 5.0 - 7.5 Units Protein, Urine 30 (A) Negative mg/dL Urobilinogen, Urine 0.2 0.2, 1.0 mg/dL Nitrite, Urine Negative Negative Esterase, Urine Negative Negative CBC Result Value Ref Range WBC 8.14 4.00 - 10.80 K/uL RBC 3.77 4.50 - 5.25 M/uL HGB 10.3 (L) 14.0 - 16.8 g/dL HCT 35.0 (L) 40.0 - 48.4 % MCV 92.8 82.0 - 99.5 fL MCH 27.3 27.0 - 34.0 pg MCHC 29.4 32.0 - 36.0 g/dL RDW 22.0 11.5 - 15.5 % PLT 236 140 - 400 K/uL MPV 8.9 6.6 - 11.1 fL DIFFERENTIAL, AUTOMATED Result Value Ref Range WBC 8.14 4.00 - 10.80 K/uL Neutrophils % 66.4 40.0 - 75.0 % Lymphocytes % 18.7 18.0 - 42.0 % Monocytes % 12.4 (H) 1.0 - 11.0 % Eosinophils % 2.1 0.0 - 6.0 % Basophils % 0.4 0.0 - 2.0 % Absolute Neutrophils 5.41 1.80 - 7.70 K/uL Absolute Lymphocytes 1.52 1.00 - 4.80 K/ul Absolute Monocytes 1.01 0.00 - 1.10 K/uL Absolute Eosinophils 0.17 0.00 - 0.70 K/uL Absolute Basophils 0.03 0.00 - 0.20 K/uL MICROSCOPIC EXAM, URINE Result Value Ref Range RBC, Urine 0-2 0 - 2 /HPF WBC, Urine 0-2 0 - 2 /HPF Bacteria, Urine 0-25 0 - 25 /HPF Hyaline, Cast, Urine 1-4 (A) None /LPF Blood test done today showed hemoglobin of 10.3 with normal WBC count and platelet counts. REVIEW OF SYSTEMS: General: No Fever, chills, night sweats HEENT: No change in visual acuity, blurred [...] Denies Hematuria or dysuria Musculoskeletal: Generalized weakness fatigueSkin: No skin rash or lesions noted Neurologic: [...] 1 Tablet by mouth in the morning. [place]-3 Fatty Acids (FISH OIL) 1000 MG Capsule Take 1 Capsule by mouth in the morning. 2 capsules by mouth twice daily . Alogliptin Benzoate 12.5 MG TABS Take 12.5 mg by mouth daily. Ferrous Sulfate 325 (65 Fe) MG Oral Tablet (Feosol) TAKE ONE TABLET BY MOUTH EVERY 48 HOURS SAME IRON Vitamin C 500 MG Oral Capsule Take [...] 1 Capsule by mouth in the morning. Dexamethasone 4 MG Oral Tablet (Decadron) Take 12mg (3 tablets) the night before and morning ofeach taxol treatment 54 Tablet 1 traMADol HCl 50 MG Oral Tablet (Ultram) Take 1 Tablet by mouth every 6 hours as needed for Pain, Moderate. 30 Tablet 0 meclizine (ANTIVERT) 12.5 MG Tablet Take 1 Tablet by mouth in the morning and 1 Tablet before bedtime. As needed . Ondansetron HCl 8 MG Oral Tablet Take 1 Tablet by mouth every 8 hours as needed for Nausea. 60 Tablet 3 Prochlorperazine Maleate 10 MG Oral Tablet (Compazine) Take 1 Tablet by mouth every 6 hours as needed for Nausea. 60 Tablet 2 No current facility-administered medications for this visit. Social History Tobacco Use Smoking status: Never Smokeless tobacco: Never Vaping Use Vaping Use: Never used Substance Use Topics Alcohol use: No Drug use: No Review of patient's allergies indicates: Allergen Reactions Amlodipine dizziness Codeine Sulfate Other (Please comment) hyperactivity Hctz [Hydrochlorothiazide] hypercalcemia Oxaliplatin Infusion related reaction PHYSICAL EXAMINATION: General Appearance: Looks weak and pale appearing patient in no acute distress BP 132/85 (BP Site: Left Arm, BP Position: Sitting, BP Cuff Size: Regular) | Pulse 92 | Temp 36.8 C (98.3 F) (Tympanic) | Resp 16 | Wt 74 kg (163 lb 3.2 oz) | SpO2 97% | BMI 28.00 kg/m | BSA 1.83 m Vitals reviewed. HEENT: No oral or [...] with history of prostate cancer and presented withcomplain of generalized weakness and fatigue and had low hemoglobin. He had endoscopy done which shows esophageal mass extending to the stomach. Biopsies consistent with adenocarcinoma and HER2/kristen expressionwasnegative. Patient also had endoscopic ultrasound and PET scan done shows mass involving the distal esophagus going into the stomach with positive lymph node. He had laparoscopic biopsy of the peritoneal nodule which is positive for metastatic disease. Patient was started onFOLFOXwithexcellent response on the follow-up PET scan. PDL1 expression was 5%.Nivolumab 240 mgwasaddedon 11/02/2021 on every 2 weeks basis with FOLFOX. He received total of 9 cycles of FOLFOX. Received last chemotherapy on 02/08/2022.During the last cycle of chemotherapy he had [...] chemotherapy including combination of Taxol and Cyramza. He is complaining generalized weakness and poor appetite and losing weight. He also looked weak andtired. Hemoglobin is stable. He is scheduled for day 15 cycle 3. Of chemotherapy tomorrow. Because of his poor tolerance and overall general condition, I will omit day 15 of chemotherapy. I will alsoreduce the dose of chemotherapy by 20% starting from cycle 4 scheduled for 05/24/2023. Discussed with the patient and sister in detail about the diagnosis and reviewed all the available blood test result with them. PLAN: Omit the day 15 of cycle 3. Reduce the dose of chemotherapy by 20%. I will see him back in 4 weeks with PET scan The patient voiced understanding of all of [...] Nursing Notes * Venecia Carlin CMA - 05/09/2023 10:56 AM EDT Patient identifed by name and birthdate Do you have any concerns about pain management for today's visit? No Living Will or Advance Directive for Health Care as noted on the problem list. [facility] is a way you can talk to your provider on line through e-mail. Would you like to sign up? I can activate it for you? ALREADY ACTIVE Filed Vitals: 05/09/23 1053 BP: 132/85 Pulse: 92 Resp: 16 Temp: 36.8 C (98.3 F) TempSrc: Tympanic SpO2: 97% Weight: 74 kg (163 lb 3.2 oz) Patient was instructed to not get [...] Encounters Date Type Specialty Care Team Description 05/10/2023 Hem/Onc Treatment Hematology Oncology [place], Chair 7 Hem Onc Scenery [address] [place] [address] 05/17/2023 Laboratory Laboratory Maddy, Lab Scenery [address] [place] [address] 05/17/2023 Hem/Onc Treatment Hematology Oncology [place], Chair 7 Hem Onc Scenery [address] [place] [address] 05/28/2023 Imaging Radiology 06/05/2023 Office Visit Hematology Oncology Nik Melo MD [address] [place] [address] 08/21/2023 Procedure Only Urology Cm Rhodes MD [address] [place] [address] [place] [address] 09/10/2023 Office Visit Gastroenterology Roz Tracey MD [address] [place] [address] Scheduled Orders Name Type Priority Associated Diagnoses Orde r Schedule PET CT SKULL BASE TO MID-THIGH Medical Imaging Routine 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) Expected: 06/09/2023, Expires: 06/09/2024 Health Maintenance Due Date Last Done Comments [...] this encounter Medical Devices Implanted Type Area School Inspector Device Identifier Shelf Expiration Date Model / Serial / Lot Cath Power Port 6fr Clearvue - [id number] Implanted:Qty : 1 on 08/10/2021 by Alexander Rodriguez MD at [facility] Left: Subclavian CR BARD : PERIPHERAL VASCULAR 08/21/2021 [id number] / / documented as of this encounter Visit Diagnoses Diagnosis 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 Care Teams Fuel Efficient Automobile Designer Relationship Specialty Start Date End Date Hortencia Leal PA-C [address] [place] [address] PCP - General Physician Edge Runner 02/08/18 documented as of this encounter
--- OUTSIDE RECORDS SUMMARY | 2023-06-27 07:34 | External Medical Summary ---
Author Name Unknown Address Unknown Organization K01:[facility] [place] [address] [place] [address] Laboratory Report Ordering Provider Test Date Status RITA SANCHEZ 05/09/2023 10:30:18 Final Observation Date Value Abnormality Reference (Units ) Status MYCODE SPECIMEN-SST 05/09/2023 10:30:18 Freezing of extracted DNA, whole blood and/or serum. Final Performing Location [facility] [place] [address] [place] [address]
--- OUTSIDE RECORDS SUMMARY | 2023-06-27 07:34 | External Medical Summary | Summary of Care ---
Author Name Unknown Organization [facility] Address 100 [facility] [place] [address] Phone [phone] Care Team Providers Care Promotions Specialist Name Role Phone Hortencia Leal PA-C Primary Care Provid er Encounter Details Date Type Department Care Team Description 05/03/2023 Orders Only Hematology/Oncology [place] [facility] [place] [address] Nik Melo MD 200 [facility] [place] [address] Allergies Active Allergy Reactions Severity Noted Date Comments Amlodipine 11/02/2020 dizziness Codeine Sulfate Other (Please comment) 10/26/19 11 hyperactivity Hydrochlorothiazide 11/02/2020 hypercalcemia Oxaliplatin 02/09/2022 Infusion related reaction documented as of this encounter (statuses as of 05/03/2023) Medications Medication Sig Dispensed Refills Start Date [...] before bedtime. As needed . 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 documented as of this encounter (statuses as of 05/03/2023) Immunizations Name Administration Dates Next Due COVID-19 [...] Encounters Date Type Specialty Care Team Description 05/04/2023 Hem/Onc Treatment Hematology Oncology [place], Chair 7 Hem Onc Scenery [address] [place] [address] 05/09/2023 Laboratory Laboratory Maddy, Lab Scenery [address] [place] [address] 05/09/2023 Office Visit Hematology Oncology Nik Melo MD [address] [place] [address] 05/10/2023 Hem/Onc Treatment Hematology Oncology [place], Chair 7 Hem Onc Scenery [address] [place] [address] 05/17/2023 Laboratory Laboratory Maddy, Lab Scenery [address] [place] [address] 05/17/2023 Hem/Onc Treatment Hematology Oncology [place], Chair 7 Hem Onc Scenery [address] [place] [address] 08/21/2023 Procedure Only Urology Cm Rhodes MD [address] [place] [address] [place] [address] 09/10/2023 Office Visit Gastroenterology Roz Tracey MD [address] [place] [address] Health Maintenance Due Date Last Done Comments Pneumococcal Vaccine: 65+ Years (1 - PCV) 12/29/1951 Depression Screening, Annual for Pts 12 and Over 1957 Hepatitis C Screening 12/29/1963 DTaP,Tdap,and Td Vaccines (1 - Tdap) 1964 COVID-19 Vaccine (4 - Booster for Moderna series) 11/26/2021 10/01/2021, 02/14/2021, 01/17/2021 Influenza Vaccine [...] encounter Medical Devices Implanted Type Area Director Graphics Device Identifier Shelf Expiration Date Model / Serial / Lot Cath Power Port 6fr Clearvue - [id number] Implanted:Qty : 1 on 08/10/2021 [place] Rodriguez [place] [facility] [place]: Subclavian CR BARD : PERIPHERAL VASCULAR 08/21/2021 [id number] / / documented as of this encounter [...] and were consensually agreed upon. Care Teams Promotions Specialist Relationship Specialty Start Date End Date Hortencia Leal PA-C [address] [facility] [address] PCP - General Physician Director Of Recruiting 02/08/18 documented as of this encounter
--- OUTSIDE RECORDS SUMMARY | 2023-06-27 07:34 | External Medical Summary | Summary of Care ---
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 As needed . 0 Active [place]-3 Fatty Acids (FISH OIL) 1000 MG Capsule [...] Encounters Date Type Specialty Care Team Description 05/09/2023 Office Visit Hematology Oncology LorieNik MD [address] [place] [address] Arrived 05/10/2023 Hem/Onc Treatment Hematology Oncology [place], Chair 7 Hem Onc Scenery [address] [place] [address] 05/17/2023 Laboratory Laboratory Maddy Lab [place] [address] [place] [address] 05/17/2023 Hem/Onc Treatment Hematology Oncology [place], Chair 7 Hem Onc Scenery [address] [place] [address] 08/21/2023 Procedure Only Urology Cm Rhodes MD [address] [place] [address] [place] [address] 09/10/2023 Office Visit Gastroenterology Roz Tracey MD [address] [place] [address] Pending Results Name Type Priority Associated Diagnoses Date /Time URINALYSIS, REFLEX TO MICROSCOPIC Lab Routine 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) 05/09/2023 10:30 AM EDT CBC WITH WBC DIFFERENTIAL Lab STAT 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) 05/09/2023 10:30 AM EDT COMPREHENSIVE METABOLIC PANEL Lab STAT 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) 05/09/2023 10:30 AM EDT TSH WITH FREE T4 IF INDICATED Lab STAT Encounter for adjustment and management of vascular access device 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) Prostate cancer (HCC) Encounter for long-term (current) use of medications 05/09/2023 10:30 AM EDT MYCODE SUBSEQUENT ADULT Lab Routine [employer] Other*[id number] 05/09/2023 10:30 AM EDT CBC Lab STAT 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) 05/09/2023 10:30 AM EDT DIFFERENTIAL, AUTOMATED Lab STAT 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) 05/09/2023 10:30 AM EDT MYCODE SST1 Lab Routine [employer] Other*[id number] 05/09/2023 10:30 AM EDT MYCODE SST2 Lab Routine [employer] Other*[id number] 05/09/2023 10:30 AM EDT MICROSCOPIC EXAM, URINE Lab Routine 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) 05/09/2023 10:30 AM EDT Health Maintenance Due Date Last [...] this encounter Medical Devices Implanted Type Area Broach Trouble Shooter Device Identifier Shelf Expiration Date Model / Serial / Lot Cath Power Port 6fr Clearvue - [id number] Implanted:Qty : 1 on 08/10/2021 by Alexander Rodriguez MD at [facility] Left: Subclavian CR BARD : PERIPHERAL VASCULAR 08/21/2021 [id number] / / documented as of this encounter [...] for long-term (current) use of other medications [employer] Other*[id number] documented in this encounter Advance Directives Latest [...] and were consensually agreed upon. Care Teams Media Center Assistant Relationship Specialty Start Date End Date Hortencia Leal PA-C [address] [place] [address] PCP - General Physician Metal Buggy Operator 02/08/18 documented as of this encounter
--- OUTSIDE RECORDS SUMMARY | 2023-06-27 07:34 | External Medical Summary ---
Author Name Unknown Address Unknown Organization K09:[facility] [address] [place] [address] Laboratory Report Ordering Provider Test Date Status SHAY CH 05/09/2023 10:30:18 Final Observation Date Value Abnormality Reference (Units ) Status Color of Urine by Auto 05/09/2023 10:30:18 Yellow Light Yellow, Yellow, Dark Yellow Final Clarity, Urine 05/09/2023 10:30:18 Clear Clear Final Glucose [Mass/volume] in Urine by Automated test strip 05/09/2023 10:30:18 Negative Negative (mg/dL) Final Bilirubin.total [Presence] in Urine by Automated test strip 05/09/2023 10:30:18 Negative Negative Final Ketones [Mass/volume] in Urine by Automated test strip 05/09/2023 10:30:18 Negative Negative (mg/dL) Final Specific gravity, Urine 05/09/2023 10:30:18 1.020 1.003-1.030 Final Hemoglobin [Presence] in Urine by Automated test strip 05/09/2023 10:30:18 Negative Negative Final pH, Urine 05/09/2023 10:30:18 5.0 5.0-7.5 (Units) Final Protein [Mass/volume] in Urine by Automated test strip 05/09/2023 10:30:18 30 Abnormal Negative (mg/dL) Final Urobilinogen [Mass/volume] in Urine by Automated test strip 05/09/2023 10:30:18 0.2 0.2, 1.0 (mg/dL) Final Nitrite [Presence] in Urine by Automated test strip 05/09/2023 10:30:18 Negative Negative Final Leukocyte esterase [Presence] in Urine by Automated test strip 05/09/2023 10:30:18 Negative Negative Final Performing Location [facility] [address] [place] [address]
--- OUTSIDE RECORDS SUMMARY | 2023-06-27 07:34 | External Medical Summary | Summary of Care ---
Author Name Unknown Organization [facility] Address [address] [facility] [place] [address] Phone [phone] Care Team Providers Care Cost And Sales Record Supervisor Name Role Phone Hortencia Leal PA-C Primary Care Provid er Reason for Visit * Reason Onset Date Comments Appointment 05/09/2023 Encounter Details Date Type Department Care Team Description 05/09/2023 Telephone Hematology/Oncology Treatment, [place] [address] [place] [id number] Nik Melo MD [address] [place] [address] Appointment Allergies Active Allergy Reactions Severity Noted [...] before bedtime. As needed . 0 Active [place]-3 Fatty Acids (FISH OIL) 1000 MG Capsule [...] Hem Onc Scenery [address] [place] [id number] 05/17/2023 Laboratory Laboratory Enrique Castañeda Scenery [address] [place] [address] 05/17/2023 Hem/Onc Treatment Hematology Oncology [place], Chair 7 Hem Onc Scenery 200 [facility] [place] [address] 05/28/2023 Imaging Radiology 06/05/2023 Office Visit Hematology Oncology Nik Melo MD [address] [place] [address] 08/21/2023 Procedure Only Urology Cm Rhodes MD [address] [place] [address] [place] [address] 09/10/2023 Office Visit Gastroenterology Roz Tracey MD [address] [place] [address] Health Maintenance Due Date Last [...] this encounter Medical Devices Implanted Type Area Catering Associate Device Identifier Shelf Expiration Date Model / Serial / Lot Cath Power Port 6fr Clearvue - [id number] Implanted:Qty : 1 on 08/10/2021 by Alexander Rodriguez MD at OR [facility] [place] Left: Subclavian CR BARD : PERIPHERAL VASCULAR 08/21/2021 [id number] / / documented as of this encounter [...] and were consensually agreed upon. Care Teams Cost And Sales Record Supervisor Relationship Specialty Start Date End Date Hortencia Leal PA-C [address] [place], [place] [address] PCP - General Physician Fireman 02/08/18 documented as of this encounter
--- OUTSIDE RECORDS SUMMARY | 2023-06-27 07:34 | External Medical Summary ---
Author Name Unknown Address Unknown Organization K01:[facility] [place] [address] [place] [address] Laboratory Report Ordering Provider Test Date Status RITA SANCHEZ 05/09/2023 10:30:18 Final Observation Date Value Abnormality Reference (Units ) Status MYCODE SPECIMEN-SST 05/09/2023 10:30:18 Freezing of extracted DNA, whole blood and/or serum. Final Performing Location [facility] [place] [address] [place] [address]
--- OUTSIDE RECORDS SUMMARY | 2023-06-27 07:34 | External Medical Summary | Summary of Care ---
Author Name Unknown Organization [facility] Address [address] [facility] [place] [address] Phone [phone] Care Team Providers Care Billing Spec Name Role Phone Hortencia Leal PA-C Primary Care Provid er Reason for Visit * Reason Onset Date Comments Advice 05/04/2023 Encounter Details Date Type Department Care Team Description 05/04/2023 Telephone Hematology/Oncology [place] Maggie Castañeda 200 [place] [address] Nik Melo MD [address] [facility] [address] Advice Allergies Active Allergy Reactions Severity Noted Date Comments Amlodipine 11/02/2020 dizziness Codeine Sulfate Other (Please comment) 10/26/19 11 hyperactivity Hydrochlorothiazide 11/02/2020 hypercalcemia Oxaliplatin 02/09/2022 Infusion related reaction documented as of this encounter (statuses as of 05/04/2023) Medications Medication Sig Dispensed Refills Start Date [...] before bedtime. As needed . 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 Dry heaving since noon yesterday. Vomiting last night around midnight several times, patient does not know number. Patient states he has taken compazine every 6 hours and "some red liquid" he does not know the name of. Patient denies diarrhea, chest pain. Offered patient hydration visit and labs already scheduled for today at 12:30. Patient states he would rather go to [facility] ED. Notified patient to call office when he is discharged from [facility]. Patient verbalizes understanding. Scheduling: Please cancel hydration appointment today at 12:30 pm on 503 schedule. Thanks. Faxed patient information to [facility] ED * Telephone Encounter - TANI Gaming - 05/04/2023 8:44 AM EDT What is the reason for call? Patient has the dry heaves and asking if he should go to the ER. What Clinic is the patient trying to reach? [facility]- Is the clinic open? Yes- Other: transfer to specialty Caller: patient Return Phone #: [phone] Call was warm transferred to [facility] documented in this encounter Plan of Treatment Upcoming Encounters Date Type Specialty Care Team Description 05/04/2023 Hem/Onc Treatment Hematology Oncology [place], Chair 7 Hem Onc Scenery [address] [place] [address] 05/09/2023 Laboratory Laboratory Maddy, Lab Scenery [address] [place] [address] 05/09/2023 Office Visit Hematology Oncology Nik Melo MD [address] [place] [address] 05/10/2023 Hem/Onc Treatment Hematology Oncology [place], Chair 7 Hem Onc Scenery [address] [place] [address] 05/17/2023 Laboratory Laboratory [place], Lab Scenery [address] [place] [address] 05/17/2023 Hem/Onc Treatment Hematology Oncology [place], Chair 7 Hem Onc Scenery [address] [place] [address] 08/21/2023 Procedure Only Urology Cm Rhodes MD [address] [place] [address] [place] [address] 09/10/2023 Office Visit Gastroenterology Roz Tracey MD [address] [place] [address] Health Maintenance Due Date Last Done Comments [...] this encounter Medical Devices Implanted Type Area Roll Coating Machine Operator Device Identifier Shelf Expiration Date Model / Serial / Lot Cath Power Port 6fr Clearvue - [id number] Implanted:Qty : 1 on 08/10/2021 by Alexander Rodriguez MD [place] [facility] [place]: Subclavian CR BARD : PERIPHERAL VASCULAR 08/21/2021 [id number] / / documented as of this encounter [...] and were consensually agreed upon. Care Teams Billing Spec Relationship Specialty Start Date End Date Hortencia Leal PA-C [address] [place] [address] PCP - General Physician Forestry Engineer 02/08/18 documented as of this encounter
--- OUTSIDE RECORDS SUMMARY | 2023-06-27 07:34 | External Medical Summary | Summary of Care ---
Author Name Unknown Organization [facility] Address [address] [facility] [place] [address] Phone [phone] Care Team Providers Care Manager Administrative Name Role Phone Hortencia Leal PA-C Primary Care Provid er Reason for Visit * Reason Onset Date Comments Advice 05/04/2023 Encounter Details Date Type Department Care Team Description 05/04/2023 Telephone Hematology/Oncology [place] Maggie Castañeda [address] [facility] [place] [place] [address] Nik Melo MD [address] [facility] [place] [address] Advice Allergies Active Allergy Reactions Severity Noted [...] Patient states he would rather go to [facility] ED. Notified patient to call office when he is discharged from [facility]. Patient verbalizes understanding. Scheduling: Please cancel hydration appointment today at 12:30 pm on 503 schedule. Thanks. * Telephone Encounter - TANI Gaming - 05/04/2023 8:44 AM EDT What is the reason for call? Patient has the dry heaves and asking if he should go to the ER. What Clinic is the patient trying to reach? [facility]- Is the clinic open? Yes- Other: transfer to specialty Caller: patient Return Phone #: [phone] Call was warm transferred to [facility] documented in this encounter Plan of Treatment Upcoming Encounters Date Type Specialty Care Team Description 05/04/2023 Hem/Onc Treatment Hematology Oncology [place], Chair 7 Hem Onc Scenery [address] [facility] [address] 05/09/2023 Laboratory Laboratory Maddy, Lab Scenery [address] [facility] [place] [address] 05/09/2023 Office Visit Hematology Oncology Nik Melo MD [address] [place] [address] 05/10/2023 Hem/Onc Treatment Hematology Oncology [place], Chair 7 Hem Onc Scenery [address] [place] [address] 05/17/2023 Laboratory Laboratory [place], Lab Scenery [address] [facility] [place] [address] 05/17/2023 Hem/Onc Treatment Hematology Oncology [place], Chair 7 Hem Onc Scenery [address] [place] [address] 08/21/2023 Procedure Only Urology Cm Rhodes MD [address] [place] [address] [place] [address] 09/10/2023 Office Visit Gastroenterology Roz Tracey MD [address] [place] [address] Health Maintenance Due Date Last Done Comments [...] this encounter Medical Devices Implanted Type Area Patternmaker Apprentice Wood Device Identifier Shelf Expiration Date Model / Serial / Lot Cath Power Port 6fr Clearvue - [id number] Implanted:Qty : 1 on 08/10/2021 by Alexander Rodriguez MD at OR [facility] [place] Left: Subclavian CR BARD : PERIPHERAL VASCULAR 08/21/2021 [id number] / / documented as of this encounter [...] and were consensually agreed upon. Care Teams Manager Administrative Relationship Specialty Start Date End Date Hortencia Leal PA-C [address] [facility] [id number] PCP - General Physician Command Post Superintendent 02/08/18 documented as of this encounter
--- OUTSIDE RECORDS SUMMARY | 2023-06-27 07:34 | External Medical Summary ---
Author Name Unknown Address Unknown Organization K09:[facility] [place] [address] Laboratory Report Ordering Provider Test Date Status SHAY CH 05/09/2023 10:30:18 Final Observation Date Value Abnormality Reference (Units ) Status WBC, Total 05/09/2023 10:30:18 8.14 4.00-10.8 0 (K/uL) Final RBC 05/09/2023 10:30:18 3.77 4.50-5.25 (M/uL) Final Hemoglobin 05/09/2023 10:30:18 10.3 Below low normal 14 .0-16.8 (g/dL) Final HCT 05/09/2023 10:30:18 35.0 Below low normal 40. 0-48.4 (%) Final MCV 05/09/2023 10:30:18 92.8 82.0-99.5 (fL) Final MCH 05/09/2023 10:30:18 27.3 27.0-34.0 (pg) Final MCHC 05/09/2023 10:30:18 29.4 32.0-36.0 (g/dL) Final RDW 05/09/2023 10:30:18 22.0 11.5-15.5 (%) Final Platelets 05/09/2023 10:30:18 236 140-400 (K /uL) Final MPV 05/09/2023 10:30:18 8.9 6.6-11.1 ( fL) Final Performing Location [facility] [place] [address]
--- OUTSIDE RECORDS SUMMARY | 2023-06-27 07:34 | External Medical Summary | Summary of Care ---
Author Name Unknown Organization [facility] Address [address] [facility] [place] [address] Phone [phone] Care Team Providers Care Box Closing Machine Operator Name Role Phone Hortencia Leal PA-C Primary Care Provid er Reason for Visit * Reason Onset Date Comments Advice 05/04/2023 Encounter Details Date Type Department Care Team Description 05/04/2023 Telephone Hematology/Oncology [place] Castañeda 200 [facility] [place] [address] Nik Melo MD 200 [facility] [place] [address] Advice Allergies Active Allergy Reactions Severity Noted [...] before bedtime. As needed . 0 Active [place]-3 Fatty Acids (FISH OIL) 1000 MG Capsule [...] Patient states he would rather go to [facility] ED. Notified patient to call office when he is discharged from [facility]. Patient verbalizes understanding. Scheduling: Please cancel hydration appointment today at 12:30 pm on 503 schedule. Thanks. Faxed patient information to [facility] ED * Telephone Encounter - TANI Gaming - 05/04/2023 8:44 AM EDT What is the reason for call? Patient has the dry heaves and asking if he should go to the ER. What Clinic is the patient trying to reach? [facility]- Is the clinic open? Yes- Other: transfer to specialty Caller: patient Return Phone #: [phone] Call was warm transferred to [facility] documented in this encounter Plan of Treatment Upcoming Encounters Date Type Specialty Care Team Description 05/09/2023 Laboratory Laboratory Maddy, Lab Scenery [address] [place] [address] 05/09/2023 Office Visit Hematology Oncology Nik Melo MD [address] [place] [address] 05/10/2023 Hem/Onc Treatment Hematology Oncology [place], Chair 7 Hem Onc Scenery [address] [place] [address] 05/17/2023 Laboratory Laboratory [place], Lab Scenery [address] [place] [address] 05/17/2023 Hem/Onc Treatment Hematology Oncology [place], Chair 7 Hem Onc Scenery [address] [place] [address] 08/21/2023 Procedure Only Urology Cm Rhodes MD [address] [place] [address] [place] [address] 09/10/2023 Office Visit Gastroenterology Roz Tracey MD [address] [place] [address] Health Maintenance Due Date Last Done [...] this encounter Medical Devices Implanted Type Area Animal Care Worker Device Identifier Shelf Expiration Date Model / Serial / Lot Cath Power Port 6fr Clearvue - [id number] Implanted:Qty : 1 on 08/10/2021 by Alexander Rodriguez MD [place] [facility] [place] Left: Subclavian CR BARD : PERIPHERAL VASCULAR 08/21/2021 [id number] / / documented as of this encounter [...] and were consensually agreed upon. Care Teams Box Closing Machine Operator Relationship Specialty Start Date End Date Hortencia Leal PA-C [address] [facility], [place] [address] PCP - General Physician Pen Tender 02/08/18 documented as of this encounter
--- OUTSIDE RECORDS SUMMARY | 2023-06-27 07:34 | External Medical Summary ---
Author Name Unknown Address Unknown Organization K01[place] [place] [address] [place] [address] Laboratory Report Ordering Provider Test Date Status SHAY CH 05/09/2023 10:30:18 Final Observation Date Value Abnormality Reference (Units ) Status TSH 05/09/2023 10:30:18 0.67 0.27-4.20 (uIU/mL) Final Performing Location [facility] [place] [address] [place] [address]
--- OUTSIDE RECORDS SUMMARY | 2023-06-27 07:34 | External Medical Summary ---
Author Name Unknown Address Unknown Organization K09:[facility] [place] [address] Laboratory Report Ordering Provider Test Date Status SHAY CH 05/09/2023 10:30:18 Final Observation Date Value Abnormality Reference (Units ) Status RBC, Urine 05/09/2023 10:30:18 0-2 0-2 (/HPF) Final WBC, Urine 05/09/2023 10:30:18 0-2 0-2 (/HPF) Final Bacteria [#/area] in Urine sediment by Microscopy high power field 05/09/2023 10:30:18 0-25 0-25 (/HPF) Final Hyaline casts, Urine 05/09/2023 10:30:18 1-4 Abnormal None (/LPF) Final Performing Location [facility] [place] [address]
--- OUTSIDE RECORDS SUMMARY | 2023-06-27 07:34 | External Medical Summary | Summary of Care ---
Author Name Unknown Organization [facility] Address [address] [facility] [place] [address] Phone [phone] Care Team Providers Care Oceanic Sciences Professor Name Role Phone Hortencia Leal PA-C Primary Care Provid er Reason for Visit * Reason Onset Date Comments Triage Advice 05/03/2023 Delay treatment today Encounter Details Date Type Department Care Team Description 05/03/2023 Telephone Hematology/Oncology Treatment, [place] 200 [facility] [place] [id number] Nik Melo MD [address] [place] [address] Triage Advice (Delay treatment today) Allergies Active Allergy Reactions Severity Noted Date [...] before bedtime. As needed . 0 Active [place]-3 Fatty Acids (FISH OIL) 1000 MG Capsule [...] encounter Miscellaneous Notes * Telephone Encounter - Danielle Calvert RN - 05/03/2023 12:06 PM EDT Called patient to review labs and advise him that he would need to give a urine sample prior to treatment today. Pt stated he does not feel well enough to come for chemo. Pt stated he is weak, nauseous, and has not eaten since yesterday. Offered for pt to come for IV hydration today; pt stated he did not want to leave the house. Offered IV hydration for tomorrow; pt is willing to come tomorrow. Informed Dr. Melo of pt status; per Dr. Melo, pt can be scheduled for hydration, 1L over 2 hours. Nursing: FYI. Please add hydration for tomorrow. Pt is already scheduled. documented in this encounter Plan of Treatment Upcoming Encounters Date Type Specialty Care Team Description 05/03/2023 Hem/Onc Treatment Hematology Oncology [place], Chair 1 Hem Onc Scenery [address] [place] [address] 05/04/2023 Hem/Onc Treatment Hematology Oncology [place], Chair 7 Hem Onc Scenery [address] [place] [address] 05/09/2023 Laboratory Laboratory [place], Lab Scenery [address] [place] [address] 05/09/2023 Office Visit Hematology Oncology Nik Melo MD [address] [place] [address] 05/10/2023 Hem/Onc Treatment Hematology Oncology [place], Chair 7 Hem Onc Scenery [address] [place] [address] 05/17/2023 Laboratory Laboratory [place], Lab Scenery [address] [place] [address] 05/17/2023 Hem/Onc Treatment Hematology Oncology [place], Chair 7 Hem Onc Scenery [address] [place] [address] 08/21/2023 Procedure Only Urology Cm Rhodes MD [...] this encounter Medical Devices Implanted Type Area Florist'S Decorator Device Identifier Shelf Expiration Date Model / Serial / Lot Cath Power Port 6fr Clearvue - [id number] Implanted:Qty : 1 on 08/10/2021 by Alexander Rodriguez MD at [facility] Left: Subclavian CR BARD : PERIPHERAL VASCULAR 08/21/2021 [id number] / / documented as of this encounter [...] and were consensually agreed upon. Care Teams Oceanic Sciences Professor Relationship Specialty Start Date End Date Hortencia Leal PA-C [address] [facility] [address] PCP - General Physician Industrial Therapist 02/08/18 documented as of this encounter
--- OUTSIDE RECORDS SUMMARY | 2023-06-27 07:34 | External Medical Summary | Summary of Care ---
Author Name Unknown Organization [facility] Address [address] [facility] [place] [address] Phone [phone] Care Team Providers Care Entrepreneurship Program Director Name Role Phone Hortencia Leal PA-C Primary Care Provid er Reason for Visit * Reason Onset Date Comments Advice 05/04/2023 Encounter Details Date Type Department Care Team Description 05/04/2023 Telephone Hematology/Oncology [place] Maggie Castañeda 200 [facility] [place] [address] Nik Melo MD 200 [facility] [place] [address] Advice Allergies Active Allergy Reactions Severity Noted [...] before bedtime. As needed . 0 Active [place]-3 Fatty Acids (FISH OIL) 1000 MG Capsule [...] * Telephone Encounter - TANI Johnson - 05/04/2023 1:47 PM EDT Per nursing canceled appt for today. * Telephone Encounter - Opal Wesley LPN [...] Patient states he would rather go to [facility] ED. Notified patient to call office when he is discharged from [facility]. Patient verbalizes understanding. Scheduling: Please cancel hydration appointment today at 12:30 pm on 503 schedule. Thanks. Faxed patient information to [facility] * Telephone Encounter - TANI Gaming - 05/04/2023 8:44 AM EDT What is the reason for call? Patient has the dry heaves and asking if he should go to the ER. What Clinic is the patient trying to reach? [facility]- Is the clinic open? Yes- Other: transfer to specialty Caller: patient Return Phone #: [phone] Call was warm transferred to [facility] documented in this encounter Plan of Treatment Upcoming Encounters Date Type Specialty Care Team Description 05/09/2023 Laboratory Laboratory [place], Lab Scenery [address] [place] [address] 05/09/2023 Office Visit Hematology Oncology Nik Melo MD [address] [place] [address] 05/10/2023 Hem/Onc Treatment Hematology Oncology [place], Chair 7 Hem Onc Scenery [address] [place] [address] 05/17/2023 Laboratory Laboratory [place], Lab Scenery [address] [place] [address] 05/17/2023 Hem/Onc Treatment Hematology Oncology [place], Chair 7 Hem Onc Scenery [address] [place] [address] 08/21/2023 Procedure Only Urology Cm Rhodes MD [address] [address] [place] [address] 09/10/2023 Office Visit Gastroenterology Roz Tracey MD [address] [place] [address] Health Maintenance Due Date Last Done Comments [...] this encounter Medical Devices Implanted Type Area Merchandising Execution Manager Device Identifier Shelf Expiration Date Model / Serial / Lot Cath Power Port 6fr Clearvue - [id number] Implanted:Qty : 1 on 08/10/2021 by Alexander Rodriguez MD [place] [facility] [place]: Subclavian CR BARD : PERIPHERAL VASCULAR 08/21/2021 [id number] / / documented as of this encounter [...] and were consensually agreed upon. Care Teams Entrepreneurship Program Director Relationship Specialty Start Date End Date Hortencia Leal PA-C [address] [place] [address] PCP - General Physician Warehousing Technician 02/08/18 documented as of this encounter
--- OUTSIDE RECORDS SUMMARY | 2023-06-27 07:34 | External Medical Summary | Summary of Care ---
Author Name Unknown Organization [facility] Address [address] [facility] [place] [address] Phone [phone] Care Team Providers Care Value Advisor Name Role Phone Hortencia Leal PA-C Primary Care Provid er Reason for Visit * Reason Onset Date Comments Appointment 05/09/2023 Encounter Details Date Type Department Care Team Description 05/09/2023 Telephone Hematology/Oncology [place] Maggie Castañeda 200 [facility] [place] [address] Nik Melo MD 200 [facility] [place] [address] Appointment Allergies Active Allergy Reactions Severity Noted [...] before bedtime. As needed . 0 Active [place]-3 Fatty Acids (FISH OIL) 1000 MG Capsule [...] Telephone Encounter - TANI Johnson - 05/09/2023 11:15 AM EDT Patient scheduled for a PET/CT SCAN @ for 05/28/23 @ 9:45am. Patient given prep instructions. documented in this encounter Plan of Treatment Upcoming Encounters Date Type Specialty Care Team Description 05/10/2023 Hem/Onc Treatment Hematology Oncology [place], Chair 7 Hem Onc Scenery [address] [place] [address] 05/17/2023 Laboratory Laboratory [place], Lab Scenery [address] [place] [address] 05/17/2023 Hem/Onc Treatment Hematology Oncology [place], Chair 7 Hem Onc Scenery [address] [place] [address] 05/28/2023 Imaging Radiology 06/05/2023 Office Visit Hematology Oncology Nik Melo MD [address] [place] [address] 08/21/2023 Procedure Only Urology Cm Rhodes MD [address] [place] [address] [place] [address] 09/10/2023 Office Visit Gastroenterology Roz Tracey MD [address] [place] [address] Health Maintenance Due Date Last Done Comments [...] this encounter Medical Devices Implanted Type Area Appeals Writer Device Identifier Shelf Expiration Date Model / Serial / Lot Cath Power Port 6fr Clearvue - [id number] Implanted:Qty : 1 on 08/10/2021 by Alexander Rodriguez MD at OR [facility] [place] Left: Subclavian CR BARD : PERIPHERAL VASCULAR 08/21/2021 [id number] / / documented as of this encounter [...] and were consensually agreed upon. Care Teams Value Advisor Relationship Specialty Start Date End Date Hortencia Leal PA-C [address] [place] [address] PCP - General Physician Culvert Installer 02/08/18 documented as of this encounter
--- OUTSIDE RECORDS SUMMARY | 2023-06-27 07:35 | External Medical Summary | Summary of Care ---
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 As needed . 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 He states that since he received his last taxol treatment, last week- he has had nausea, body aches, unable to sleep due to pain in abdomen. He states that he has nottaken anything for the pain. He drinks approximately 2, 20 oz bottles of water a day, he is eating small meals, he had an episode of vertigo. He is using the zofran, but not the compazine. He states that he is moving his bowels, they are on the harder side. Patient had issues in March with constipation. Advised him to start colace and sennokot daily. Dr Melo would like for patient to start tramadol for pain. And can add hydration in to chemo plan. Dr Melo does not want to cancel treatment until patient is assessed in person. Will hydrate no matter what. Patient is going for lab work today. NSCP added for hydration tomorrow. * Telephone Encounter - TANI Alva - 04/25/2023 8:50 AM EDT Images from the original note were not included. What is the reason for call? Bodyaches and nausea not controlled with zofran What Clinic is the patient trying to reach? [facility]- Is the clinic open? Yes- Other: transfer to specialty Caller: patient Return Phone #: [phone] Term Definition Chest Pain Chest pain, tightness, heaviness, pressure, Feels like an elephant is sitting on my chest Difficulty Breathing Shortness of Breath New [OR] worse than normal Pt. is unable to speak in complete sentences Any concerns for oxygen (O2) level/pulse ox/oxygen saturation [OR] Oxygen saturation <94% (any age) with or without symptoms. Stroke-Like symptoms Sudden onset of weakness [OR] paralysis, [OR] numbness of the face, arm/hand, or leg/foot on one side of the body OR Sudden onset loss of speech [OR] garbled speech [OR] confused speech. *Not due to a known traumatic injury* Intent/Plan to harm self or others Pt. verbalizes thoughts of hurting or killing oneself or someoneelse "Other" Life Threatening Emergency Disconnecting the call could cause potential harm or to the pt. Call was warm transferred to Love Cortez Required Documentation documented in this encounter Plan of Treatment Upcoming Encounters Date Type Specialty Care Team Description 04/25/2023 Laboratory Laboratory En[facility] Sc[address] [place] [address] 04/26/2023 Hem/Onc Treatment Hematology Oncology [place], Chair 11 Hem Onc Scenery [address] [place] [address] 05/09/2023 Laboratory Laboratory Enrique Castañeda Scenery [address] [place], [place] [address] 05/09/2023 Office Visit Hematology Oncology Nik Melo MD [address] [place] [address] 05/10/2023 Hem/Onc Treatment Hematology Oncology [place], Chair 7 Hem Onc Scenery [address] [place] [address] 08/21/2023 Procedure Only Urology Cm Rhodes MD [address] [place] [address] [place] [address] 09/10/2023 Office Visit Gastroenterology Roz Tracey MD [address] [place] [address] Health Maintenance Due Date Last Done [...] this encounter Medical Devices Implanted Type Area Web Press Roll Tender Device Identifier Shelf Expiration Date Model / Serial / Lot Cath Power Port 6fr Clearvue - [id number] Implanted:Qty : 1 on 08/10/2021 by Alexander Rodriguez MD at OR [facility] [place] Left: Subclavian CR BARD : PERIPHERAL VASCULAR 08/21/2021 [id number] / / documented as of this encounter [...] and were consensually agreed upon. Care Teams Dialysis Technician Relationship Specialty Start Date End Date Hortencia Leal PA-C [address] [facility] [id number] PCP - General Physician Biomedical Equipment Specialist 02/08/18 documented as of this encounter
--- OUTSIDE RECORDS SUMMARY | 2023-06-27 07:35 | External Medical Summary ---
Author Name Unknown Address Unknown Organization [id number] [place] [place] [address] Laboratory Report Ordering Provider Test Date Status SHAY CH 05/02/2023 09:46:27 Final Observation Date Value Abnormality Reference (Units ) Status SYNC LEUKOCYTES IN BLOOD BY AUTOMATED COUNT 05/02/2023 09:46:27 3.50 Below low normal 4.00-10.80 (K/uL) Final Segs 05/02/2023 09:46:27 45.3 40.0-75.0 (%) Final Lymphs % 05/02/2023 09:46:27 28.9 18.0-42.0 (%) Final Monos 05/02/2023 09:46:27 22.9 Above high normal 1.0-11.0 (%) Final Eosinophils 05/02/2023 09:46:27 2.0 0.0-6.0 (%) Final Basos 05/02/2023 09:46:27 0.9 0.0-2.0 (%) Final Absolute Segs 05/02/2023 09:46:27 1.59 Below low normal 1.80-7.70 (K/uL) Final Lymphs, absolute 05/02/2023 09:46:27 1.01 1.00-4.80 (K/ul) Final Monos, Abs 05/02/2023 09:46:27 0.80 0.00-1.10 (K/uL) Final Eos, Abs 05/02/2023 09:46:27 0.07 0.00-0.70 (K/uL) Final Basos, Abs 05/02/2023 09:46:27 0.03 0.00-0.20 (K/uL) Final Performing Location [facility] [place] [address]
--- OUTSIDE RECORDS SUMMARY | 2023-06-27 07:35 | External Medical Summary | Summary of Care ---
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 As needed . 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 documented as of this encounter (statuses as of 04/30/2023) Immunizations Name Administration Dates Next Due COVID-19 [...] Encounters Date Type Specialty Care Team Description 05/02/2023 Laboratory Laboratory [facility] [place] [address] [place] [address] 05/03/2023 Hem/Onc Treatment Hematology Oncology [place], Chair 1 Hem Onc Scenery [address] [place] [address] 05/09/2023 Laboratory Byron Castañeda Lab Scenery [address] [place] [address] 05/09/2023 Office Visit Hematology Oncology Nik Melo MD [address] [place] [address] 05/10/2023 Hem/Onc Treatment Hematology Oncology [place], Chair 7 Hem Onc Scenery [address] [place] [address] 05/17/2023 Laboratory Laboratory Maddy, Lab Scenery [address] [place] [address] 05/17/2023 Hem/Onc Treatment Hematology Oncology [place], Chair 7 Hem Onc Scenery [address] [place] [address] 08/21/2023 Procedure Only Urology Cm Rhodes MD [address] [place] [address] [place] [address] 09/10/2023 Office Visit Gastroenterology Roz Tracey MD [address] [place] [address] Health Maintenance Due Date Last Done Comments [...] this encounter Medical Devices Implanted Type Area Automation Technician Device Identifier Shelf Expiration Date Model / Serial / Lot Cath Power Port 6fr Lisavue - [id number] Implanted:Qty : 1 on 08/10/2021 by Alexander Rodriguez MD at OR 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) Prostate cancer (HCC) Encounter for long-term (current) use of medications CBC WITH WBC DIFFERENTIAL STAT 04/30/2023 9:26 AM EDT Encounter for adjustment and management of vascular access device 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) Prostate cancer (HCC) Encounter for long-term (current) use of medications CBC STAT 04/30/2023 9:26 AM EDT Encounter for adjustment and management of vascular access device 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) Prostate cancer (HCC) Encounter for long-term (current) use of medications documented in this encounter Results * (ABNORMAL) DIFFERENTIAL, AUTOMATED (04/30/2023 9:26 AM EDT) WBC 4.09 4.00 - 10.80 K/uL 04/30/2023 9:34 AM EDT [facility] 56-02 Neutrophils % 51.9 40.0 - 75.0 % 04/30/2023 9:34 AM EDT [facility] 56-02 Lymphocytes % 29.1 18.0 - 42.0 % 04/30/2023 9:34 AM EDT [facility] 56-02 Monocytes % 17.1(H) 1.0 - 11.0 % 04/30/2023 9:34 AM EDT [facility] 56-02 Eosinophils % 1.7 0.0 - 6.0 % 04/30/2023 9:34 AM EDT [facility] 56 Basophils % 0.2 0.0 - 2.0 % 04/30/2023 9:34 AM EDT [facility] Absolute Neutrophils 2.12 1.80 - 7.70 K/uL 04/30/2023 9:34 AM EDT [facility] Absolute Lymphocytes 1.19 1.00 - 4.80 K/ul 04/30/2023 9:34 AM EDT [facility] Absolute Monocytes 0.70 0.00 - 1.10 K/uL 04/30/2023 9:34 AM EDT [facility] Absolute Eosinophils 0.07 0.00 - 0.70 K/uL 04/30/2023 9:34 AM EDT [facility] Absolute Basophils 0.01 0.00 - 0.20 K/uL 04/30/2023 9:34 AM EDT [facility] Blood Venous blood specimen / Unknown Venipuncture / Unknown 04/30/2023 9:26 AM EDT 04/30/2023 9:26 AM EDT Nik Melo MD LAB BLOOD ORDERA BLES [facility] [address] [place] [address] * (ABNORMAL) CBC (04/30/2023 9:26 AM EDT) WBC 4.09 4.00 - 10.80 K/uL 04/30/2023 9:34 AM EDT [facility] RBC 3.18 4.50 - 5.25 M/uL 04/30/2023 9:34 AM EDT [facility] HGB 8.9(L) 14.0 - 16.8 g/dL 04/30/2023 9:34 AM EDT [facility] HCT 30.2(L) 40.0 - 48.4 % 04/30/2023 9:34 AM EDT [facility] 56-02 MCV 95.0 82.0 - 99.5 fL 04/30/2023 9:34 AM EDT [facility] 56 MCH 28.0 27.0 - 34.0 pg 04/30/2023 9:34 AM EDT [place] [address] MCHC 29.5 32.0 - 36.0 g/dL 04/30/2023 9:34 AM EDT [place] [address] RDW 22.6 11.5 - 15.5 % 04/30/2023 9:34 AM EDT [place] [address] PLT 199 140 - 400 K/uL 04/30/2023 9:34 AM EDT [place] [address] MPV 9.6 6.6 - 11.1 fL 04/30/2023 9:34 AM EDT [place] [address] Blood Venous blood specimen / Unknown Venipuncture / Unknown 04/30/2023 9:26 AM EDT 04/30/2023 9:26 AM EDT Nik Melo MD LAB BLOOD ORDERA BLES [address] [place] [address] documented in this encounter Visit Diagnoses Diagnosis [...] and were consensually agreed upon. Care Teams Reactor Operator Relationship Specialty Start Date End Date Hortencia Leal PA-C [address] [facility], [place] [address] PCP - General Physician Pump Mechanic 02/08/18 documented as of this encounter
--- OUTSIDE RECORDS SUMMARY | 2023-06-27 07:35 | External Medical Summary ---
Author Name Unknown Address Unknown Organization [id number] [place] [address] Laboratory Report Ordering Provider Test Date Status SHAY CH 04/25/2023 10:08:28 Final Observation Date Value Abnormality Reference (Units ) Status BUN 04/25/2023 10:08:28 28 Above high normal 6-20 (mg/dL) Final Creatinine 04/25/2023 10:08:28 2.0 Above high normal 0.6-1.2 (mg/dL) Final Glomerular filtration rate/1.73 sq M.predicted [Volume Rate/Area] in Serum, Plasma or Blood by Creatinine-based formula (CKD-EPI) 04/25/2023 10:08:28 34 Below low normal >=60 (mL/min) Final Performing Location [facility] [place] [address]
--- OUTSIDE RECORDS SUMMARY | 2023-06-27 07:35 | External Medical Summary ---
Author Name Unknown Address Unknown Organization [id number] [place] [address] Laboratory Report Ordering Provider Test Date Status SHAY CH 04/25/2023 10:08:28 Final Observation Date Value Abnormality Reference (Units ) Status SYNC LEUKOCYTES IN BLOOD BY AUTOMATED COUNT 04/25/2023 10:08:28 4.12 4.00-10.80 (K/uL) Final Segs 04/25/2023 10:08:28 61.4 40.0-75.0 (%) Final Lymphs % 04/25/2023 10:08:28 27.4 18.0-42.0 (%) Final Monos 04/25/2023 10:08:28 8.3 1.0-11.0 (%) Final Eosinophils 04/25/2023 10:08:28 2.4 0.0-6.0 (%) Final Basos 04/25/2023 10:08:28 0.5 0.0-2.0 (%) Final Absolute Segs 04/25/2023 10:08:28 2.53 1.80-7.70 (K/uL) Final Lymphs, absolute 04/25/2023 10:08:28 1.13 1.00-4.80 (K/ul) Final Monos, Abs 04/25/2023 10:08:28 0.34 0.00-1.10 (K/uL) Final Eos, Abs 04/25/2023 10:08:28 0.10 0.00-0.70 (K/uL) Final Basos, Abs 04/25/2023 10:08:28 0.02 0.00-0.20 (K/uL) Final Performing Location [facility] [place] [address]
--- OUTSIDE RECORDS SUMMARY | 2023-06-27 07:35 | External Medical Summary ---
Author Name Unknown Address Unknown Organization [id number] [place] [address] Laboratory Report Ordering Provider Test Date Status SHAY CH 04/25/2023 10:08:28 Final Observation Date Value Abnormality Reference (Units ) Status WBC, Total 04/25/2023 10:08:28 4.12 4.00-10.8 0 (K/uL) Final RBC 04/25/2023 10:08:28 3.26 4.50-5.25 (M/uL) Final Hemoglobin 04/25/2023 10:08:28 9.0 Below low normal 14 .0-16.8 (g/dL) Final HCT 04/25/2023 10:08:28 30.4 Below low normal 40. 0-48.4 (%) Final MCV 04/25/2023 10:08:28 93.3 82.0-99.5 (fL) Final MCH 04/25/2023 10:08:28 27.6 27.0-34.0 (pg) Final MCHC 04/25/2023 10:08:28 29.6 32.0-36.0 (g/dL) Final RDW 04/25/2023 10:08:28 21.8 11.5-15.5 (%) Final Platelets 04/25/2023 10:08:28 159 140-400 (K /uL) Final MPV 04/25/2023 10:08:28 9.5 6.6-11.1 ( fL) Final Performing Location [facility] [place] [address]
--- OUTSIDE RECORDS SUMMARY | 2023-06-27 07:35 | External Medical Summary | Summary of Care ---
Author Name Unknown Organization [facility] Address [address] [facility] [place] [address] Phone [phone] Care Team Providers Care Top Icer Name Role Phone Hortencia Leal PA-C Primary Care Provid er Reason for Visit * Reason Comments Outpatient Testing Encounter Details Date Type Department Care Team Description 04/25/2023 Laboratory Laboratory Scenery Maddy [place] [address] [place] [address] [facility] Lab [facility] [address] [place] [address] 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 [...] before bedtime. As needed . 0 Active [place]-3 Fatty Acids (FISH OIL) 1000 MG Capsule [...] Encounters Date Type Specialty Care Team Description 04/26/2023 Hem/Onc Treatment Hematology Oncology [place], Chair 11 Hem Onc Scenery [address] [place] [address] 05/09/2023 Laboratory Laboratory [place], Lab Scenery [address] [place] [address] 05/09/2023 Office Visit Hematology Oncology Nik Melo MD [address] [place] [address] 05/10/2023 Hem/Onc Treatment Hematology Oncology [place], Chair 7 Hem Onc Scenery [address] [place] [address] 08/21/2023 Procedure Only Urology Cm Rhodes MD [address] [place] [address] [place] [address] 09/10/2023 Office Visit Gastroenterology Roz Tracey MD [address] [place] [address] Pending Results Name Type Priority Associated Diagnoses Date /Time COMPREHENSIVE METABOLIC PANEL Lab STAT 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) 04/25/2023 10:08 AM EDT TSH WITH FREE T4 IF INDICATED Lab STAT Encounter for adjustment and management of vascular access device 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) Prostate cancer (HCC) Encounter for long-term (current) use of medications 04/25/2023 10:08 AM EDT URINALYSIS, REFLEX TO MICROSCOPIC Lab Routine 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) 04/25/2023 10:12 AM EDT Health Maintenance Due Date Last [...] this encounter Medical Devices Implanted Type Area Strap Making Machine Operator Device Identifier Shelf Expiration Date Model / Serial / Lot Cath Power Port 6fr Clearvue - [id number] Implanted:Qty : 1 on 08/10/2021 by Alexander Rodriguez MD at [place] [facility] [place] Left: Subclavian CR BARD : PERIPHERAL VASCULAR 08/21/2021 [id number] / / documented as of this encounter Procedures Procedure Name Priority Date/Time Associated Diagnosis Comments DIFFERENTIAL, AUTOMATED STAT 04/25/2023 10:08 AM EDT 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) CBC WITH WBC DIFFERENTIAL STAT 04/25/2023 10:08 AM EDT 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) CBC STAT 04/25/2023 10:08 AM EDT 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) documented in this encounter Results * DIFFERENTIAL, AUTOMATED (04/25/2023 10:08 AM EDT) WBC 4.12 4.00 - 10.80 K/uL 04/25/2023 10:12 AM EDT [facility] [place] 56-02 Neutrophils % 61.4 40.0 - 75.0 % 04/25/2023 10:12 AM EDT [facility] 56-02 Lymphocytes % 27.4 18.0 - 42.0 % 04/25/2023 10:12 AM EDT [facility] 56-02 Monocytes % 8.3 1.0 - 11.0 % 04/25/2023 10:12 AM EDT [facility] 56-02 Eosinophils % 2.4 0.0 - 6.0 % 04/25/2023 10:12 AM EDT [facility] 56-02 Basophils % 0.5 0.0 - 2.0 % 04/25/2023 10:12 AM EDT [facility] [place] 56-02 Absolute Neutrophils 2.53 1.80 - 7.70 K/uL 04/25/2023 10:12 AM EDT [facility] Absolute Lymphocytes 1.13 1.00 - 4.80 K/ul 04/25/2023 10:12 AM EDT [facility] Absolute Monocytes 0.34 0.00 - 1.10 K/uL 04/25/2023 10:12 AM EDT [facility] Absolute Eosinophils 0.10 0.00 - 0.70 K/uL 04/25/2023 10:12 AM EDT [facility] Absolute Basophils 0.02 0.00 - 0.20 K/uL 04/25/2023 10:12 AM EDT [facility] Blood Venous blood specimen / Unknown Venipuncture / Unknown 04/25/2023 10:08 AM EDT 04/25/2023 10:08 AM EDT Nik Melo MD LAB BLOOD ORDERA BLES [facility] [address] [place] [address] * (ABNORMAL) CBC (04/25/2023 10:08 AM EDT) WBC 4.12 4.00 - 10.80 K/uL 04/25/2023 10:12 AM T [facility] RBC 3.26 4.50 - 5.25 M/uL 04/25/2023 10:12 AM T [facility] HGB 9.0(L) 14.0 - 16.8 g/dL 04/25/2023 10:12 AM EDT [facility] HCT 30.4(L) 40.0 - 48.4 % 04/25/2023 10:12 AM EDT [facility] MCV 93.3 82.0 - 99.5 fL 04/25/2023 10:12 AM EDT [facility] MCH 27.6 27.0 - 34.0 pg 04/25/2023 10:12 AM EDT [facility] MCHC 29.6 32.0 - 36.0 g/dL 04/25/2023 10:12 AM EDT [facility] RDW 21.8 11.5 - 15.5 % 04/25/2023 10:12 AM EDT [facility] PLT 159 140 - 400 K/uL 04/25/2023 10:12 AM EDT [facility] MPV 9.5 6.6 - 11.1 fL 04/25/2023 10:12 AM EDT [facility] Blood Venous blood specimen / Unknown Venipuncture / Unknown 04/25/2023 10:08 AM EDT 04/25/2023 10:08 AM EDT Nik Melo MD LAB BLOOD ORDERA BLES [facility] [address] [place] [address] documented in this encounter Visit Diagnoses Diagnosis [...] and were consensually agreed upon. Care Teams Top Icer Relationship Specialty Start Date End Date Hortencia Leal PA-C [address] [place] [address] PCP - General Physician Injector Assembler 02/08/18 documented as of this encounter
--- OUTSIDE RECORDS SUMMARY | 2023-06-27 07:35 | External Medical Summary ---
Author Name Unknown Address Unknown Organization [id number] [place] [place] [address] Laboratory Report Ordering Provider Test Date Status SHAY CH 04/30/2023 09:26:12 Final Observation Date Value Abnormality Reference (Units ) Status SYNC LEUKOCYTES IN BLOOD BY AUTOMATED COUNT 04/30/2023 09:26:12 4.09 4.00-10.80 (K/uL) Final Segs 04/30/2023 09:26:12 51.9 40.0-75.0 (%) Final Lymphs % 04/30/2023 09:26:12 29.1 18.0-42.0 (%) Final Monos 04/30/2023 09:26:12 17.1 Above high normal 1.0-11.0 (%) Final Eosinophils 04/30/2023 09:26:12 1.7 0.0-6.0 (%) Final Basos 04/30/2023 09:26:12 0.2 0.0-2.0 (%) Final Absolute Segs 04/30/2023 09:26:12 2.12 1.80-7.70 (K/uL) Final Lymphs, absolute 04/30/2023 09:26:12 1.19 1.00-4.80 (K/ul) Final Monos, Abs 04/30/2023 09:26:12 0.70 0.00-1.10 (K/uL) Final Eos, Abs 04/30/2023 09:26:12 0.07 0.00-0.70 (K/uL) Final Basos, Abs 04/30/2023 09:26:12 0.01 0.00-0.20 (K/uL) Final Performing Location [facility] [place] [place] [address]
--- OUTSIDE RECORDS SUMMARY | 2023-06-27 07:35 | External Medical Summary ---
Author Name Unknown Address Unknown Organization [facility] [address] Laboratory Report Ordering Provider Test Date Status SHAY CH 05/02/2023 09:46:27 Final Observation Date Value Abnormality Reference (Units ) Status BUN 05/02/2023 09:46:27 22 Above high normal 6-20 (mg/dL) Final Creatinine 05/02/2023 09:46:27 2.1 Above high normal 0.6-1.2 (mg/dL) Final Glomerular filtration rate/1.73 sq M.predicted [Volume Rate/Area] in Serum, Plasma or Blood by Creatinine-based formula (CKD-EPI) 05/02/2023 09:46:27 33 Below low normal >=60 (mL/min) Final Performing Location [facility] [place] [address]
--- OUTSIDE RECORDS SUMMARY | 2023-06-27 07:35 | External Medical Summary ---
Author Name Unknown Address Unknown Organization K01:LABORATORY [facility] [place] - [address] [facility] [address] Laboratory Report Ordering Provider Test Date Status SHAY CH 04/25/2023 10:12:56 Final Observation Date Value Abnormality Reference (Units ) Status Color of Urine by Auto 04/25/2023 10:12:56 Yellow Colorless, Light Yellow, Yellow, Dark Yellow Final Clarity, Urine 04/25/2023 10:12:56 Clear Clear Final Glucose [Mass/volume] in Urine by Automated test strip 04/25/2023 10:12:56 Negative Negative (mg/dL) Final Bilirubin.total [Presence] in Urine by Automated test strip 04/25/2023 10:12:56 Negative Negative Final Ketones [Mass/volume] in Urine by Automated test strip 04/25/2023 10:12:56 Negative Negative (mg/dL) Final Specific gravity, Urine 04/25/2023 10:12:56 1.020 1.003-1.030 Final Hemoglobin [Presence] in Urine by Automated test strip 04/25/2023 10:12:56 Negative Negative Final pH, Urine 04/25/2023 10:12:56 6.0 5.0-7.5 (Units) Final Protein [Mass/volume] in Urine by Automated test strip 04/25/2023 10:12:56 100 Abnormal Negative (mg/dL) Final Urobilinogen [Mass/volume] in Urine by Automated test strip 04/25/2023 10:12:56 2.0 Abnormal Normal (mg/dL) Final Nitrite [Presence] in Urine by Automated test strip 04/25/2023 10:12:56 Negative Negative Final Leukocyte esterase [Presence] in Urine by Automated test strip 04/25/2023 10:12:56 Negative Negative Final RBC, Urine 04/25/2023 10:12:56 0-2 0-2 (/HPF) Final WBC, Urine 04/25/2023 10:12:56 6-9 Abnormal 0-2 (/HPF) Final Bacteria [#/area] in Urine sediment by Microscopy high power field 04/25/2023 10:12:56 26-50 Abnormal 0-25 (/HPF) Final Hyaline casts, Urine 04/25/2023 10:12:56 5-9 Abnormal None (/LPF) Final Mixed cellular casts [#/area] in Urine sediment by Microscopy low power field 04/25/2023 10:12:56 1-4 Abnormal None (/LPF) Final Performing Location LABORATORY [facility] [place] - [facility] [address]. [facility] [address]
--- OUTSIDE RECORDS SUMMARY | 2023-06-27 07:35 | External Medical Summary ---
Author Name Unknown Address Unknown Organization K01:LABORATORY [facility] [place] - [address] [place] [address] Laboratory Report Ordering Provider Test Date Status SHAY CH 05/02/2023 09:46:27 Final Observation Date Value Abnormality Reference (Units ) Status TSH 05/02/2023 09:46:27 1.06 0.27-4.20 (uIU/mL) Final Performing Location LABORATORY [facility] [place] - [address] [place] [address]
--- OUTSIDE RECORDS SUMMARY | 2023-06-27 07:35 | External Medical Summary | Summary of Care ---
Author Name Unknown Organization [facility] Address [address] [facility] [address] Phone [phone] Care Team Providers Care Respiratory Practitioner Name Role Phone Hortencia Leal PA-C Primary Care Provid er Reason for Visit * Reason Onset Date Comments Advice 04/25/2023 Encounter Details Date Type Department Care Team Description 04/25/2023 Refill Hematology/Oncology [facility] [place] [address] [facility] [place] [address] Services, Scheduling [address] [place] [address] 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 As needed . 0 Active [place]-3 Fatty Acids (FISH OIL) 1000 MG Capsule [...] to specialty Caller: patient Return Phone #: [phone] Term Definition Chest Pain Chest pain, tightness, [...] Laboratory Laboratory Enrique Castañeda [address] [place] [address] 04/26/2023 Hem/Onc Treatment Hematology Oncology Maddy, Chair 11 Hem Onc Scenery [address] [place] [address] 05/09/2023 Laboratory Laboratory Enrique Castañeda [address] [place], [place] [address] 05/09/2023 Office Visit Hematology Oncology Nik Melo MD [address] [place] [address] 05/10/2023 Hem/Onc Treatment Hematology Oncology [place], Chair 7 Hem Onc Scenery [address] [place] [address] 08/21/2023 Procedure Only Urology Cm Rhodes MD [address] [place] [address] [place] [address] 09/10/2023 Office Visit Gastroenterology Roz Tracey MD [address] [place] [address] Health Maintenance Due Date Last Done [...] this encounter Medical Devices Implanted Type Area Neurodiagnostic Technologist Device Identifier Shelf Expiration Date Model / Serial / Lot Cath Power Port 6fr Clearvue - [id number] Implanted:Qty : 1 on 08/10/2021 by Alexander Rodriguez MD at [place] [facility] Left: Subclavian CR BARD : PERIPHERAL VASCULAR 08/21/2021 [id number] / / documented as of this encounter [...] and were consensually agreed upon. Care Teams Respiratory Practitioner Relationship Specialty Start Date End Date Hortencia Leal PA-C [address] [facility] [id number] PCP - General Physician Civil Engineering Project Designer 02/08/18 documented as of this encounter
--- OUTSIDE RECORDS SUMMARY | 2023-06-27 07:35 | External Medical Summary | Summary of Care ---
Author Name Unknown Organization [facility] Address 100 [facility] [place] [address] Phone [phone] Care Team Providers Care Youth Career Specialist Name Role Phone Hortencia Leal PA-C Primary Care Provid er Encounter Details Date Type Department Care Team Description 04/25/2023 Orders Only Hematology/Oncology [place] 200 [facility] [place] [address] Nik Melo MD 200 [facility] [place] [address] Allergies Active Allergy Reactions Severity Noted Date [...] before bedtime. As needed . 0 Active [place]-3 Fatty Acids (FISH OIL) 1000 MG Capsule [...] Specialty Care Team Description 04/25/2023 Laboratory Laboratory Maddy, Lab Scenery [address] [place] [address] 04/26/2023 Hem/Onc Treatment Hematology Oncology [place], Chair 11 Hem Onc Scenery [address] [place] [address] 05/09/2023 Laboratory Laboratory Maddy, Lab Scenery [address] [place] [address] 05/09/2023 Office Visit Hematology Oncology Nik Melo MD [address] [place] [address] 05/10/2023 Hem/Onc Treatment Hematology Oncology [place], Chair 7 Hem Onc Scenery [address] [place] [address] 08/21/2023 Procedure Only Urology Cm Rhodes MD [address] [place] [address] 09/10/2023 Office Visit Gastroenterology Roz Tracey MD [address] [place] [address] Health Maintenance Due Date Last Done Comments [...] this encounter Medical Devices Implanted Type Area Licensed Nursing Assistant Device Identifier Shelf Expiration Date Model / Serial / Lot Cath Power Port 6fr Clearvue - [id number] Implanted:Qty : 1 on 08/10/2021 by Alexander Rodriguez MD at OR [facility] Left: Subclavian CR BARD : PERIPHERAL VASCULAR 08/21/2021 [id number] / / documented as of this encounter [...] and were consensually agreed upon. Care Teams Youth Career Specialist Relationship Specialty Start Date End Date Hortencia Leal PA-C [address] [facility] [address] PCP - General Physician Can Reforming Machine Operator 02/08/18 documented as of this encounter
--- OUTSIDE RECORDS SUMMARY | 2023-06-27 07:35 | External Medical Summary | Summary of Care ---
Author Name Unknown Organization [facility] Address 100 [facility] [place] [address] Phone [phone] Care Team Providers Care Adjuster And Inspector Name Role Phone Hortencia Leal PA-C Primary Care Provid er Reason for Visit * Reason Comments Outpatient Testing Encounter Details Date Type Department Care Team Description 04/25/2023 Laboratory Laboratory Sc[place]addy [place] [address] [place] [address] [facility] Lab [facility] [address] [place] [address] 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 [...] before bedtime. As needed . 0 Active [place]-3 Fatty Acids (FISH OIL) 1000 MG Capsule [...] Hem Onc Scenery [address] [place] [address] 05/09/2023 Laboratory Laboratory Maddy, Lab Scenery [address] [place] [address] 05/09/2023 Office Visit Hematology Oncology Nik Melo MD [address] [place] [address] 05/10/2023 Hem/Onc Treatment Hematology Oncology [place], Chair 7 Hem Onc Scenery [address] [place] [address] 08/21/2023 Procedure Only Urology Cm Rhodes MD [address] [place] [address] [place] [address] 09/10/2023 Office Visit Gastroenterology Roz Tracey MD [address] [place] [address] Pending Results Name Type Priority Associated Diagnoses [...] this encounter Medical Devices Implanted Type Area Childbirth Educator Device Identifier Shelf Expiration Date Model / Serial / Lot Cath Power Port 6fr Clearvue - [id number] Implanted:Qty : 1 on 08/10/2021 by Alexander Rodriguez MD at OR [facility] Left: Subclavian CR BARD : PERIPHERAL VASCULAR 08/21/2021 [id number] / / documented as of this encounter [...] 10.80 K/uL 04/25/2023 10:12 AM EDT LABORATORY [place] 56-02 Neutrophils % 61.4 40.0 - 75.0 % 04/25/2023 10:12 AM EDT LAB[facility]ORY [facility] 56-02 Lymphocytes % 27.4 18.0 - 42.0 % 04/25/2023 10:12 AM EDT [facility] 56-02 Monocytes % 8.3 1.0 - 11.0 % 04/25/2023 10:12 AM EDT [facility] 56-02 Eosinophils % 2.4 0.0 - 6.0 % 04/25/2023 10:12 AM EDT [facility]ORY [facility] 56-02 Basophils % 0.5 0.0 - 2.0 % 04/25/2023 10:12 AM EDT LABORATORY [place] 56-02 Absolute Neutrophils 2.53 1.80 - 7.70 K/uL 04/25/2023 10:12 AM EDT [facility] Absolute Lymphocytes 1.13 1.00 - 4.80 K/ul 04/25/2023 10:12 AM EDT [facility] Absolute Monocytes 0.34 0.00 - 1.10 K/uL 04/25/2023 10:12 AM EDT [facility] Absolute Eosinophils 0.10 0.00 - 0.70 K/uL 04/25/2023 10:12 AM EDT [facility] Absolute Basophils 0.02 0.00 - 0.20 K/uL 04/25/2023 10:12 AM EDT [facility] Blood Venous blood specimen / Unknown Venipuncture / Unknown 04/25/2023 10:08 AM EDT 04/25/2023 10:08 AM EDT Nik Melo MD LAB BLOOD ORDERA BLES [facility] 200 [place] [address] * (ABNORMAL) CBC (04/25/2023 10:08 AM EDT) WBC 4.12 4.00 - 10.80 K/uL 04/25/2023 10:12 AM T [facility] RBC 3.26 4.50 - 5.25 M/uL 04/25/2023 10:12 AM T [facility] HGB 9.0(L) 14.0 - 16.8 g/dL 04/25/2023 10:12 AM EDT [facility] HCT 30.4(L) 40.0 - 48.4 % 04/25/2023 10:12 AM EDT [facility] MCV 93.3 82.0 - 99.5 fL 04/25/2023 10:12 AM EDT [facility] MCH 27.6 27.0 - 34.0 pg 04/25/2023 10:12 AM EDT [facility] MCHC 29.6 32.0 - 36.0 g/dL 04/25/2023 10:12 AM EDT [facility] RDW 21.8 11.5 - 15.5 % 04/25/2023 10:12 AM EDT [facility] PLT 159 140 - 400 K/uL 04/25/2023 10:12 AM EDT [facility] MPV 9.5 6.6 - 11.1 fL 04/25/2023 10:12 AM EDT [facility] Blood Venous blood specimen / Unknown Venipuncture / Unknown 04/25/2023 10:08 AM EDT 04/25/2023 10:08 AM EDT Nik Melo MD LAB BLOOD ORDERA BLES [facility] [address] [place] [address] documented in this encounter Visit Diagnoses Diagnosis [...] and were consensually agreed upon. Care Teams Adjuster And Inspector Relationship Specialty Start Date End Date Hortencia Leal PA-C [address] [place] [address] PCP - General Physician Truck And Transport Mechanic 02/08/18 documented as of this encounter
--- OUTSIDE RECORDS SUMMARY | 2023-06-27 07:35 | External Medical Summary | Summary of Care ---
Author Name Unknown Organization [facility] Address 100 [facility] [place] [address] Phone [phone] Care Team Providers Care Ground Defence Officer Name Role Phone Hortencia Leal PA-C Primary Care Provid er Reason for Visit * Reason Comments Outpatient Testing Encounter Details Date Type Department Care Team Description 05/02/2023 Laboratory Laboratory [facility] Maddy [place] [address] [place] [address] [facility] Lab [facility] [address] [facility] [place] [address] 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 [...] as of this encounter (statuses as of 05/02/2023) Medications Medication Sig Dispensed Refills Start Date [...] before bedtime. As needed . 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 documented as of this encounter (statuses as of 05/02/2023) Immunizations Name Administration Dates Next Due COVID-19 [...] Team Description 05/03/2023 Hem/Onc Treatment Hematology Oncology [place], Chair 1 Hem Onc Scenery [address] [place] [address] 05/09/2023 Laboratory Laboratory [place] [place] [address] [place] [address] 05/09/2023 Office Visit Hematology Oncology Nik Melo MD [address] [place] [address] 05/10/2023 Hem/Onc Treatment Hematology Oncology [place], Chair 7 Hem Onc Scenery [address] [facility] [address] 05/17/2023 Laboratory Laboratory [place]addy, Lab Scenery [address] [place] [address] 05/17/2023 Hem/Onc Treatment Hematology Oncology [place], Chair 7 Hem Onc Scenery [address] [place] [address] 08/21/2023 Procedure Only Urology Cm Rhodes MD [address] [place] [address] [place] [address] 09/10/2023 Office Visit Gastroenterology Roz Tracey MD [address] [place] [address] Pending Results Name Type Priority Associated Diagnoses Date /Time COMPREHENSIVE METABOLIC PANEL Lab STAT 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) 05/02/2023 9:46 AM EDT TSH WITH FREE T4 IF INDICATED Lab STAT Encounter for adjustment and management of vascular access device 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) Prostate cancer (HCC) Encounter for long-term (current) use of medications 05/02/2023 9:46 AM EDT Health Maintenance Due Date Last [...] this encounter Medical Devices Implanted Type Area Flaker Operator Device Identifier Shelf Expiration Date Model / Serial / Lot Cath Power Port 6fr Clearvue - [id number] Implanted:Qty : 1 on 08/10/2021 by Alexander Rodriguez MD at [facility] Left: Subclavian CR BARD : PERIPHERAL VASCULAR 08/21/2021 [id number] / / documented as of this encounter Procedures Procedure Name Priority Date/Time Associated Diagnosis Comments DIFFERENTIAL, AUTOMATED STAT 05/02/2023 9:46 AM EDT 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) CBC WITH WBC DIFFERENTIAL STAT 05/02/2023 9:46 AM EDT 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) CBC STAT 05/02/2023 9:46 AM EDT 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) documented in this encounter Results * (ABNORMAL) DIFFERENTIAL, AUTOMATED (05/02/2023 9:46 AM EDT) WBC 3.50(L) 4.00 - 10.80 K/uL 05/02/2023 9:54 AM EDT [facility] 56-02 Neutrophils % 45.3 40.0 - 75.0 % 05/02/2023 9:54 AM EDT [facility] 56-02 Lymphocytes % 28.9 18.0 - 42.0 % 05/02/2023 9:54 AM EDT [facility] 56-02 Monocytes % 22.9(H) 1.0 - 11.0 % 05/02/2023 9:54 AM EDT [facility] 56-02 Eosinophils % 2.0 0.0 - 6.0 % 05/02/2023 9:54 AM EDT [facility] 56 Basophils % 0.9 0.0 - 2.0 % 05/02/2023 9:54 AM EDT [facility] 56 Absolute Neutrophils 1.59(L) 1.80 - 7.70 K/uL 05/02/2023 9:54 AM EDT [facility] 56 Absolute Lymphocytes 1.01 1.00 - 4.80 K/ul 05/02/2023 9:54 AM EDT [facility] 56 Absolute Monocytes 0.80 0.00 - 1.10 K/uL 05/02/2023 9:54 AM EDT [facility] 56 Absolute Eosinophils 0.07 0.00 - 0.70 K/uL 05/02/2023 9:54 AM EDT [facility] 56 Absolute Basophils 0.03 0.00 - 0.20 K/uL 05/02/2023 9:54 AM EDT [facility] 56 Blood Venous blood specimen / Unknown Venipuncture / Unknown 05/02/2023 9:46 AM EDT 05/02/2023 9:46 AM EDT Nik Melo MD LAB BLOOD ORDERA BLES [facility] [address] [place] [id number] * (ABNORMAL) CBC (05/02/2023 9:46 AM EDT) WBC 3.50(L) 4.00 - 10.80 K/uL 05/02/2023 9:54 AM EDT [facility] 56 RBC 3.34 4.50 - 5.25 M/uL 05/02/2023 9:54 AM EDT [facility] 56 HGB 9.1(L) 14.0 - 16.8 g/dL 05/02/2023 9:54 AM EDT [facility] 56 HCT 31.0(L) 40.0 - 48.4 % 05/02/2023 9:54 AM EDT [facility] 56 MCV 92.8 82.0 - 99.5 fL 05/02/2023 9:54 AM EDT [facility] 56 MCH 27.2 27.0 - 34.0 pg 05/02/2023 9:54 AM EDT [facility] 56 MCHC 29.4 32.0 - 36.0 g/dL 05/02/2023 9:54 AM EDT [facility] 56 RDW 22.4 11.5 - 15.5 % 05/02/2023 9:54 AM EDT [facility] 56 PLT 235 140 - 400 K/uL 05/02/2023 9:54 AM EDT [facility] 56 MPV 8.7 6.6 - 11.1 fL 05/02/2023 9:54 AM EDT [facility] 56 Blood Venous blood specimen / Unknown Venipuncture / Unknown 05/02/2023 9:46 AM EDT 05/02/2023 9:46 AM EDT Nik Melo MD LAB BLOOD ORDERA BLES [facility] [address] [place] [address] documented in this encounter Visit Diagnoses Diagnosis [...] and were consensually agreed upon. Care Teams Ground Defence Officer Relationship Specialty Start Date End Date Hortencia Leal PA-C [address] [facility], [place] [address] PCP - General Physician Finance Attorney 02/08/18 documented as of this encounter
--- OUTSIDE RECORDS SUMMARY | 2023-06-27 07:35 | External Medical Summary ---
Author Name Unknown Address Unknown Organization K09:[facility] [place] [address] Laboratory Report Ordering Provider Test Date Status SHAY CH 05/02/2023 09:46:27 Final Observation Date Value Abnormality Reference (Units ) Status WBC, Total 05/02/2023 09:46:27 3.50 Below low normal 4. 00-10.80 (K/uL) Final RBC 05/02/2023 09:46:27 3.34 4.50-5.25 (M/uL) Final Hemoglobin 05/02/2023 09:46:27 9.1 Below low normal 14 .0-16.8 (g/dL) Final HCT 05/02/2023 09:46:27 31.0 Below low normal 40. 0-48.4 (%) Final MCV 05/02/2023 09:46:27 92.8 82.0-99.5 (fL) Final MCH 05/02/2023 09:46:27 27.2 27.0-34.0 (pg) Final MCHC 05/02/2023 09:46:27 29.4 32.0-36.0 (g/dL) Final RDW 05/02/2023 09:46:27 22.4 11.5-15.5 (%) Final Platelets 05/02/2023 09:46:27 235 140-400 (K /uL) Final MPV 05/02/2023 09:46:27 8.7 6.6-11.1 ( fL) Final Performing Location [facility] [place] [address]
--- OUTSIDE RECORDS SUMMARY | 2023-06-27 07:35 | External Medical Summary | Summary of Care ---
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 As needed . 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 documented as of this encounter (statuses as of 04/26/2023) Immunizations Name Administration Dates Next Due COVID-19 [...] Sign Reading Time Taken Comments Blood Pressure 116/75 04/26/2023 9:06 AM EDT Pulse 68 04/26/2023 9:06 AM EDT Temperature 37 C (98.6 F) 04/26/2023 9:06 AM EDT Respiratory Rate 18 04/26/2023 9:06 AM EDT Oxygen Saturation 95% 04/26/2023 9:06 AM EDT Inhaled Oxygen Concentration - - Weight 76.3 kg (168 lb 3.2 oz) 04/26/2023 9:06 A M EDT Height - - Body Mass Index 28.86 01/16/2023 10:35 AM EDT documented in this encounter Nursing Notes * Eboni Stevens RN - 04/26/2023 11:43 AM EDT Hydration is complete. Pt is aware he is to repeat cbc on 04/30. Goals: pt to remain free from injury Possible barriers to meeting goals: pt to remain free from injury Stability of the patient: Moderately stable - low risk of patient condition declining or worsening Summary regarding today's goals: Met: pt remained free from injury Pt discharged in stable condition, family to transport pt. * Eboni Stevens RN - 04/26/2023 9:39 AM EDT Ch 9. Pt arrived today for [id number] Cyramza and Taxol infusions. Pt had labs performed day prior, hgbdown to 9.0 from to TE noted that pt was feeling very nauseous this cycle with increased abdominal pains. Today pt reports that 'this was one of the worst weeks or maybe the worst' he has felt. He reports decreased appetite, as evidenced by weight loss of approx 4lb this past week. Pt spoke to our office, Tramadol was prescribed. Pt reports he is taking tramadol which seems to be helping. Pt reports fatigue, chronic and intermittent. He denies blood in stool or dark stool. He denies diarrhea orconstipation. Dr. Melo is aware and consulted. Due to drop in hgb, will repeat labs Monday 04/30. Will HOLD chemo today, delay one week. Safety and Risk for Injury Patient will remain free from injury. Ensure appropriate safety devices are available. Provide and maintain safe environment. documented in this encounter Plan of Treatment Upcoming Encounters Date Type Specialty Care Team Description 04/30/2023 Laboratory Laboratory [place], Lab Scenery [address] [place] [address] 05/02/2023 Laboratory Laboratory [place], Lab Scenery [address] [place] [address] 05/03/2023 Hem/Onc Treatment Hematology Oncology [place], Chair 1 Hem Onc Scenery [address] [place] [address] 05/09/2023 Laboratory Laboratory [place], Lab Scenery [address] [place] [address] 05/09/2023 Office Visit Hematology Oncology Nik Melo MD [address] [place] [address] 05/10/2023 Hem/Onc Treatment Hematology Oncology [place], Chair 7 Hem Onc Scenery [address] [place] [address] 05/17/2023 Laboratory Laboratory [place], Lab Scenery [address] [place], [place] [address] 05/17/2023 Hem/Onc Treatment Hematology Oncology [place], Chair 7 Hem Onc Scenery [address] [place] [address] 08/21/2023 Procedure Only Urology Cm Rhodes MD [address] [facility] [address] [place] [address] 09/10/2023 Office Visit Gastroenterology Roz Tracey MD [address] [place] [address] Health Maintenance Due Date Last [...] this encounter Medical Devices Implanted Type Area Senior Maintenance Machinist Device Identifier Shelf Expiration Date Model / Serial / Lot Cath Power Port 6fr Clearvue - [id number] Implanted:Qty : 1 on 08/10/2021 by Alexander Rodriguez MD at OR [facility] Left: Subclavian CR BARD : PERIPHERAL VASCULAR 08/21/2021 [id number] / / documented as of this encounter Visit Diagnoses Diagnosis Dehydration- Primary 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 Given 04/26/2023 10:57 AM EDT 500 Units sodium chloride 0.9 % flush/inj 10 mL 10 mL, IV Push, PRN Other, IV Flush, Starting on Chandrika 04/26/23 at 0903, Until Sun04/27/23 at 0902, For 24 hours, Do not flush if lock, PICC, or central line not in place; IV infusing or unable to flush. Given 04/26/2023 10:57 AM EDT 10 mL Inactive Administered Medications - up to 3 most recent administrations Medication Order MAR Action Action Date Dose Rate Site NSS infusion FOR HYDRATION Intravenous, at 500 mL/hr Administer over 2 Hours, ONCE, 1 dose, On Chandrika 7/6/23 at 1015 Start Infusion 04/26/2023 8:55 AM EDT 1,000 mL 500 mL/hr documented in this encounter Advance [...] and were consensually agreed upon. Care Teams Sales Office Manager Relationship Specialty Start Date End Date Hortencia Leal PA-C [address] [place] [address] PCP - General Physician Mold Carrier 02/08/18 documented as of this encounter
--- OUTSIDE RECORDS SUMMARY | 2023-06-27 07:35 | External Medical Summary ---
Author Name Unknown Address Unknown Organization [id number]:[facility] [place] [address] Laboratory Report Ordering Provider Test Date Status SHAY CH 04/30/2023 09:26:12 Final Observation Date Value Abnormality Reference (Units ) Status WBC, Total 04/30/2023 09:26:12 4.09 4.00-10.8 0 (K/uL) Final RBC 04/30/2023 09:26:12 3.18 4.50-5.25 (M/uL) Final Hemoglobin 04/30/2023 09:26:12 8.9 Below low normal 14 .0-16.8 (g/dL) Final HCT 04/30/2023 09:26:12 30.2 Below low normal 40. 0-48.4 (%) Final MCV 04/30/2023 09:26:12 95.0 82.0-99.5 (fL) Final MCH 04/30/2023 09:26:12 28.0 27.0-34.0 (pg) Final MCHC 04/30/2023 09:26:12 29.5 32.0-36.0 (g/dL) Final RDW 04/30/2023 09:26:12 22.6 11.5-15.5 (%) Final Platelets 04/30/2023 09:26:12 199 140-400 (K /uL) Final MPV 04/30/2023 09:26:12 9.6 6.6-11.1 ( fL) Final Performing Location [facility] [place] [address]
--- OUTSIDE RECORDS SUMMARY | 2023-06-27 07:36 | External Medical Summary ---
Author Name Unknown Address Unknown Organization [id number]:[facility] [place] [address] Laboratory Report Ordering Provider Test Date Status SHAY CH 04/12/2023 08:11:54 Final Observation Date Value Abnormality Reference (Units ) Status Color of Urine by Auto 04/12/2023 08:11:54 Yellow Light Yellow, Yellow, Dark Yellow Final Clarity, Urine 04/12/2023 08:11:54 Clear Clear Final Glucose [Mass/volume] in Urine by Automated test strip 04/12/2023 08:11:54 Negative Negative (mg/dL) Final Bilirubin.total [Presence] in Urine by Automated test strip 04/12/2023 08:11:54 Negative Negative Final Ketones [Mass/volume] in Urine by Automated test strip 04/12/2023 08:11:54 Negative Negative (mg/dL) Final Specific gravity, Urine 04/12/2023 08:11:54 1.025 1.003-1.030 Final Hemoglobin [Presence] in Urine by Automated test strip 04/12/2023 08:11:54 Negative Negative Final pH, Urine 04/12/2023 08:11:54 5.0 5.0-7.5 (Units) Final Protein [Mass/volume] in Urine by Automated test strip 04/12/2023 08:11:54 100 Abnormal Negative (mg/dL) Final Urobilinogen [Mass/volume] in Urine by Automated test strip 04/12/2023 08:11:54 0.2 0.2, 1.0 (mg/dL) Final Nitrite [Presence] in Urine by Automated test strip 04/12/2023 08:11:54 Negative Negative Final Leukocyte esterase [Presence] in Urine by Automated test strip 04/12/2023 08:11:54 Negative Negative Final Performing Location [facility] [place] [address]
--- OUTSIDE RECORDS SUMMARY | 2023-06-27 07:36 | External Medical Summary | Summary of Care ---
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 As needed . 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 documented as of this encounter (statuses as of 04/18/2023) Immunizations Name Administration Dates Next Due COVID-19 [...] Encounters Date Type Specialty Care Team Description 04/19/2023 Hem/Onc Treatment Hematology Oncology [place], Chair 1 Hem Onc Scenery [address] [place] [address] 04/25/2023 Laboratory Laboratory [place], Lab Scenery [address] [place] [address] 04/26/2023 Hem/Onc Treatment Hematology Oncology [place], Chair 11 Hem Onc Scenery [address] [place] [address] 05/09/2023 Laboratory Laboratory [place], Lab Scenery [address] [place] [address] 05/09/2023 Office Visit Hematology Oncology Nik Melo MD [address] [place] [address] 05/10/2023 Hem/Onc Treatment Hematology Oncology [place], Chair 7 Hem Onc Scenery [address] [place] [address] 08/21/2023 Procedure Only Urology Cm Rhodes MD [address] [place] [address] [place] [address] Pending Results Name Type Priority Associated Diagnoses Date /Time COMPREHENSIVE METABOLIC PANEL Lab STAT 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) 04/18/2023 9:52 AM EDT Health Maintenance Due Date Last Done Comments Pneumococcal Vaccine: 65+ Years (1 - PCV) 12/29/1951 Depression Screening, Annual for Pts 12 and Over 1957 Hepatitis C Screening 12/29/1963 DTaP,Tdap,and Td Vaccines (1 - Tdap) 1964 COVID-19 Vaccine (4 - Booster for Moderna series) 11/26/2021 10/01/2021, 02/14/2021, 01/17/2021 Influenza Vaccine (FLU shot) (Season Ended) 2023 07/30/2021, 08/21/2018, 07/14/2017, Additional history exists [...] this encounter Medical Devices Implanted Type Area Mobile Home Servicer Device Identifier Shelf Expiration Date Model / Serial / Lot Cath Power Port 6fr Clearvue - [id number] Implanted:Qty : 1 on 08/10/2021 by Alexander Rodriguez MD at OR [facility] Left: Subclavian CR BARD : PERIPHERAL VASCULAR 08/21/2021 [id number] / / documented as of this encounter Procedures Procedure Name Priority Date/Time Associated Diagnosis Comments DIFFERENTIAL, AUTOMATED STAT 04/18/2023 9:52 AM EDT 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) CBC WITH WBC DIFFERENTIAL STAT 04/18/2023 9:52 AM EDT 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) CBC STAT 04/18/2023 9:52 AM EDT 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) documented in this encounter Results * DIFFERENTIAL, AUTOMATED (04/18/2023 9:52 AM EDT) WBC 6.04 4.00 - 10.80 K/uL 04/18/2023 9:58 AM EDT LAB[facility]ATORY [facility] 56-02 Neutrophils % 64.6 40.0 - 75.0 % 04/18/2023 9:58 AM EDT [facility] [place] 56-02 Lymphocytes % 27.8 18.0 - 42.0 % 04/18/2023 9:58 AM EDT [facility] [place] 56-02 Monocytes % 4.6 1.0 - 11.0 % 04/18/2023 9:58 AM EDT [facility] [place] 56-02 Eosinophils % 2.5 0.0 - 6.0 % 04/18/2023 9:58 AM EDT [facility] [place] 56-02 Basophils % 0.5 0.0 - 2.0 % 04/18/2023 9:58 AM EDT [facility] [place] 56-02 Absolute Neutrophils 3.90 1.80 - 7.70 K/uL 04/18/2023 9:58 AM EDT [facility] [place] 56-02 Absolute Lymphocytes 1.68 1.00 - 4.80 K/ul 04/18/2023 9:58 AM EDT [facility] [place] 56-02 Absolute Monocytes 0.28 0.00 - 1.10 K/uL 04/18/2023 9:58 AM EDT [facility] [place] 56-02 Absolute Eosinophils 0.15 0.00 - 0.70 K/uL 04/18/2023 9:58 AM EDT LABORATORY [facility] 56-02 Absolute Basophils 0.03 0.00 - 0.20 K/uL 04/18/2023 9:58 AM EDT [facility] [place] 56-02 Blood Venous blood specimen / Unknown Venipuncture / Unknown 04/18/2023 9:52 AM EDT 04/18/2023 9:52 AM EDT Nik Melo MD LAB BLOOD [facility] 56- [address] [place] [address] * (ABNORMAL) CBC (04/18/2023 9:52 AM EDT) [facility] WBC 6.04 4.00 - 10.80 K/uL 04/18/2023 9:58 AM EDT [facility] 56- RBC 3.83 4.50 - 5.25 M/uL 04/18/2023 9:58 AM EDT [facility] 56 HGB 10.6(L) 14.0 - 16.8 g/dL 04/18/2023 9:58 AM EDT [facility] 56 HCT 35.0(L) 40.0 - 48.4 % 04/18/2023 9:58 AM EDT [facility] 56- MCV 91.4 82.0 - 99.5 fL 04/18/2023 9:58 AM EDT [facility] 56- MCH 27.7 27.0 - 34.0 pg 04/18/2023 9:58 AM EDT [facility] 56- MCHC 30.3 32.0 - 36.0 g/dL 04/18/2023 9:58 AM EDT [facility] 56- RDW 20.6 11.5 - 15.5 % 04/18/2023 9:58 AM EDT [facility] 56- PLT 136(L) 140 - 400 K/uL 04/18/2023 9:58 AM EDT [facility] 56- MPV 9.7 6.6 - 11.1 fL 04/18/2023 9:58 AM EDT [facility] 56- Blood Venous blood specimen / Unknown Venipuncture / Unknown 04/18/2023 9:52 AM EDT 04/18/2023 9:52 AM EDT Nik Melo MD LAB BLOOD [facility] 56-02 [address] [place] [address] documented in this encounter Visit Diagnoses Diagnosis [...] and were consensually agreed upon. Care Teams Stitcher Operator Relationship Specialty Start Date End Date Hortencia Leal PA-C [address] [facility] [place] [address] PCP - General Physician Food Technician 02/08/18 documented as of this encounter
--- OUTSIDE RECORDS SUMMARY | 2023-06-27 07:36 | External Medical Summary ---
Author Name Unknown Address Unknown Organization K09:[facility] [place] [address] Laboratory Report Ordering Provider Test Date Status SHAY CH 04/11/2023 07:35:09 Final Observation Date Value Abnormality Reference (Units ) Status WBC, Total 04/11/2023 07:35:09 5.52 4.00-10.8 0 (K/uL) Final RBC 04/11/2023 07:35:09 3.95 4.50-5.25 (M/uL) Final Hemoglobin 04/11/2023 07:35:09 10.8 Below low normal 14 .0-16.8 (g/dL) Final HCT 04/11/2023 07:35:09 36.2 Below low normal 40. 0-48.4 (%) Final MCV 04/11/2023 07:35:09 91.6 82.0-99.5 (fL) Final MCH 04/11/2023 07:35:09 27.3 27.0-34.0 (pg) Final MCHC 04/11/2023 07:35:09 29.8 32.0-36.0 (g/dL) Final RDW 04/11/2023 07:35:09 20.4 11.5-15.5 (%) Final Platelets 04/11/2023 07:35:09 175 140-400 (K /uL) Final MPV 04/11/2023 07:35:09 9.3 6.6-11.1 ( fL) Final Performing Location [facility] [place] [address]
--- OUTSIDE RECORDS SUMMARY | 2023-06-27 07:36 | External Medical Summary ---
Author Name Unknown Address Unknown Organization K01:[facility] - [address] [place] [address] Laboratory Report Ordering Provider Test Date Status SHAY CH 04/25/2023 10:08:28 Final Observation Date Value Abnormality Reference (Units ) Status TSH 04/25/2023 10:08:28 1.24 0.27-4.20 (uIU/mL) Final Performing Location [facility] - [address] [place] [address]
--- OUTSIDE RECORDS SUMMARY | 2023-06-27 07:36 | External Medical Summary ---
Author Name Unknown Address Unknown Organization K09:[facility] [place] [address] Laboratory Report Ordering Provider Test Date Status SHAY CH 04/18/2023 09:52:17 Final Observation Date Value Abnormality Reference (Units ) Status SYNC LEUKOCYTES IN BLOOD BY AUTOMATED COUNT 04/18/2023 09:52:17 6.04 4.00-10.80 (K/uL) Final Segs 04/18/2023 09:52:17 64.6 40.0-75.0 (%) Final Lymphs % 04/18/2023 09:52:17 27.8 18.0-42.0 (%) Final Monos 04/18/2023 09:52:17 4.6 1.0-11.0 (%) Final Eosinophils 04/18/2023 09:52:17 2.5 0.0-6.0 (%) Final Basos 04/18/2023 09:52:17 0.5 0.0-2.0 (%) Final Absolute Segs 04/18/2023 09:52:17 3.90 1.80-7.70 (K/uL) Final Lymphs, absolute 04/18/2023 09:52:17 1.68 1.00-4.80 (K/ul) Final Monos, Abs 04/18/2023 09:52:17 0.28 0.00-1.10 (K/uL) Final Eos, Abs 04/18/2023 09:52:17 0.15 0.00-0.70 (K/uL) Final Basos, Abs 04/18/2023 09:52:17 0.03 0.00-0.20 (K/uL) Final Performing Location [facility] [place] [address]
--- OUTSIDE RECORDS SUMMARY | 2023-06-27 07:36 | External Medical Summary | Summary of Care ---
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 As needed . 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 documented as of this encounter (statuses as of 04/11/2023) Immunizations Name Administration Dates Next Due COVID-19 [...] Sign Reading Time Taken Comments Blood Pressure 151/83 04/11/2023 8:26 AM EDT Pulse 60 04/11/2023 8:26 AM EDT Temperature 37.3 C (99.2 F) 04/11/2023 8:26 AM ED T Respiratory Rate 16 04/11/2023 8:26 AM EDT Oxygen Saturation 94% 04/11/2023 8:26 AM EDT Inhaled Oxygen Concentration - - Weight 80.9 kg (178 lb 4.8 oz) 04/11/2023 8:26 A M EDT Height - - Body Mass Index 30.59 01/16/2023 10:35 AM EDT documented in this encounter Progress Notes * Nik Melo MD - 04/11/2023 8:50 AM EDT Outpatient Consult Note Data Source: Patient, Epic record. Data Source: Patient, Epic record. 04/11/2023 8:50 AM [place] [id number] 77 year old Patient Encounter: HEMATOLOGY/ONCOLOGY [facility] Cancer Diagnosis: -Metastatic esophageal cancer-laparoscopic biopsy of the peritoneal nodule which is positive for metastatic disease - Prostate cancer,pT2, Group IIA, Yantic 3+4 Current Treatment: On ramcirumab Previous Treatment: -Nivolumab was added on 11/02/2021 -on Eligard for [...] radical prostatectomy: Adenocarcinoma, moderately poorly differentiated Overall Yantic score 3+4=7 High grade prostatic intraepithelial neoplasia [...] 0.9 cm HISTOLOGIC TYPE: Adenocarcinoma HISTOLOGIC GRADE (Yantic): Primary pattern is: Grade 3: single acini [...] 2.1 cm HISTOLOGIC TYPE: Adenocarcinoma HISTOLOGIC GRADE (Juan): [...] 2 suspicious for metastasis. Interval History: He was seen in the ED with abdominal pain. CT scan shows 7.5 cm impacted stool ball in the proximalsigmoid colon. Now clinically he is feeling better and stronger with no more abdominal pain or nausea vomiting. His bowel movements are back to normal. On the CT scan there was also resolution of left retroperitoneal lymph nodes was seen on the PET scan. Overall clinically he is feeling better and stronger with improvement in energy level. Patient denies any headache, dizziness, blurred vision, chest pain, shortness breath palpitation abdominal pain or distention, bleeding, bruising, nausea, vomiting, fever, night sweats, weight loss, hematuria, hematochezia. LABS/IMAGING: Results for orders placed or performed in visit on 04/11/23 COMPREHENSIVE METABOLIC PANEL Result Value Ref Range BUN 21 (H) 6 - 20 mg/dL Creatinine 1.8 (H) 0.6 - 1.2 mg/dL Estimated Glomerular Filtration Rate 38 (L) >=60 mL/min Sodium 139 135 - 146 mmol/L Potassium 4.0 3.5 - 5.1 mmol/L Chloride 104 98 - 107 mmol/L CO2 26 22 - 32 mmol/L Anion Gap 9 7 - 15 mmol/L Glucose 131 (H) 70 - 120 mg/dL Albumin 4.1 3.8 - 5.0 g/dL AST 13 10 - 50 U/L Alkaline Phosphatase 71 35 - 130 U/L Bilirubin, Total 0.4 <=1.2 mg/dL Calcium 9.8 8.4 - 10.2 mg/dL Protein 6.9 6.0 - 8.3 g/dL ALT 8 (L) 10 - 50 U/L CBC Result Value Ref Range WBC 5.52 4.00 - 10.80 K/uL RBC 3.95 4.50 - 5.25 M/uL HGB 10.8 (L) 14.0 - 16.8 g/dL HCT 36.2 (L) 40.0 - 48.4 % MCV 91.6 82.0 - 99.5 fL MCH 27.3 27.0 - 34.0 pg MCHC 29.8 32.0 - 36.0 g/dL RDW 20.4 11.5 - 15.5 % PLT 175 140 - 400 K/uL MPV 9.3 6.6 - 11.1 fL DIFFERENTIAL, AUTOMATED Result Value Ref Range WBC 5.52 4.00 - 10.80 K/uL Neutrophils % 49.5 40.0 - 75.0 % Lymphocytes % 31.5 18.0 - 42.0 % Monocytes % 15.8 (H) 1.0 - 11.0 % Eosinophils % 2.5 0.0 - 6.0 % Basophils % 0.7 0.0 - 2.0 % Absolute Neutrophils 2.73 1.80 - 7.70 K/uL Absolute Lymphocytes 1.74 1.00 - 4.80 K/ul Absolute Monocytes 0.87 0.00 - 1.10 K/uL Absolute Eosinophils 0.14 0.00 - 0.70 K/uL Absolute Basophils 0.04 0.00 - 0.20 K/uL Blood tests are in acceptable range with stable creatinine REVIEW OF SYSTEMS: General: No Fever, chills, [...] bleeding Genitourinary: Denies Hematuria or dysuria Musculoskeletal: No bone pain Skin: No skin rash or lesions noted [...] 1 Tablet by mouth in the morning. [place]-3 Fatty Acids (FISH OIL) 1000 MG Capsule [...] morning ofeach taxol treatment 54 Tablet 1 meclizine (ANTIVERT) 12.5 MG Tablet Take 1 [...] appearing patient in no acute distress BP 151/83 (BP Site: Left Arm, BP Position: Sitting, BP Cuff Size: Regular) | Pulse 60 | Temp 37.3 C (99.2 F) | Resp 16 | Wt 80.9 kg (178 lb 4.8 oz) | SpO2 94% | BMI 30.59 kg/m | BSA 1.91 m Vitals reviewed. HEENT: No oral or [...] with adenocarcinoma and HER2/kristen expression was negative. Patientalso had endoscopic ultrasound and PET scan done shows mass involving the distal esophagus going int o the stomach with positive lymph node. He [...] including combination of Taxol and Cyramza. He was seen in the ED with complaint of abdominal pain and on the CT scan he had impacted stool. Now he is feeling better and stronger. On the CT scan there was also resolution of the retroperitoneallymphadenopathy. Discussed with the patient about the diagnosis and reviewed all the available blood tests and CT scan finding with him. He will continue his current treatment and he will start cycle 3. Of chemotherapy tomorrow including combination of Taxol and Cyramza. PLAN: As above. He will return to clinic for follow-up in 4 weeks. The patient voiced understanding [...] in this encounter Nursing Notes * Venecia Carlin, POULTRY HELPER - 04/11/2023 8:30 AM EDT Patient identifed by name and birthdate Do you have any concerns about pain management for today's visit? No Living Will or Advance Directive for Health Care as noted on the problem list. [facility] is a way you can talk to your provider on line through e-mail. Would you like to sign up? I can activate it for you? ALREADY ACTIVE Filed Vitals: 04/11/23 0826 BP: 151/83 Pulse: 60 Resp: 16 Temp: 37.3 C (99.2 F) SpO2: 94% Weight: 80.9 kg (178 lb 4.8 oz) Patient was instructed to not get [...] Encounters Date Type Specialty Care Team Description 04/12/2023 Hem/Onc Treatment Hematology [place], Chair 5 Hem Onc Scenery [address] [place] [id number] 08/21/2023 Procedure Only Urology Cm Rhodes MD [address] [place] [address] [place] [id number] Health Maintenance Due Date Last Done Comments [...] this encounter Medical Devices Implanted Type Area Spanish Language Lecturer Device Identifier Shelf Expiration Date Model / Serial / Lot Cath Power Port 6fr Clearvue - [id number] Implanted:Qty : 1 on 08/10/2021 by Alexander Rodriguez MD at OR [facility] Left: Subclavian CR BARD : PERIPHERAL VASCULAR 08/21/2021 [id number] / / documented as of this encounter Visit Diagnoses Diagnosis 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 Care Teams Hair Specialist Relationship Specialty Start Date End Date Hortencia Leal PA-C [address] [place] [address] PCP - General Physician Typesetter Apprentice 02/08/18 documented as of this encounter
--- OUTSIDE RECORDS SUMMARY | 2023-06-27 07:36 | External Medical Summary ---
Author Name Unknown Address Unknown Organization K09:[facility] [place] [address] Laboratory Report Ordering Provider Test Date Status SHAY CH 04/11/2023 07:35:09 Final Observation Date Value Abnormality Reference (Units ) Status SYNC LEUKOCYTES IN BLOOD BY AUTOMATED COUNT 04/11/2023 07:35:09 5.52 4.00-10.80 (K/uL) Final Segs 04/11/2023 07:35:09 49.5 40.0-75.0 (%) Final Lymphs % 04/11/2023 07:35:09 31.5 18.0-42.0 (%) Final Monos 04/11/2023 07:35:09 15.8 Above high normal 1.0-11.0 (%) Final Eosinophils 04/11/2023 07:35:09 2.5 0.0-6.0 (%) Final Basos 04/11/2023 07:35:09 0.7 0.0-2.0 (%) Final Absolute Segs 04/11/2023 07:35:09 2.73 1.80-7.70 (K/uL) Final Lymphs, absolute 04/11/2023 07:35:09 1.74 1.00-4.80 (K/ul) Final Monos, Abs 04/11/2023 07:35:09 0.87 0.00-1.10 (K/uL) Final Eos, Abs 04/11/2023 07:35:09 0.14 0.00-0.70 (K/uL) Final Basos, Abs 04/11/2023 07:35:09 0.04 0.00-0.20 (K/uL) Final Performing Location [facility] [place] [address]
--- OUTSIDE RECORDS SUMMARY | 2023-06-27 07:36 | External Medical Summary ---
Author Name Unknown Address Unknown Organization K09:[facility] [place] [address] Laboratory Report Ordering Provider Test Date Status SHAY CH 04/12/2023 08:11:54 Final Observation Date Value Abnormality Reference (Units ) Status RBC, Urine 04/12/2023 08:11:54 0-2 0-2 (/HPF) Final WBC, Urine 04/12/2023 08:11:54 0-2 0-2 (/HPF) Final Bacteria [#/area] in Urine sediment by Microscopy high power field 04/12/2023 08:11:54 0-25 0-25 (/HPF) Final Hyaline casts, Urine 04/12/2023 08:11:54 1-4 Abnormal None (/LPF) Final Performing Location [facility] [place] [address]
--- OUTSIDE RECORDS SUMMARY | 2023-06-27 07:36 | External Medical Summary | Summary of Care ---
Author Name Unknown Organization [facility] Address [address] [facility] [place] [address] Phone [phone] Care Team Providers Care Stores Clerk Name Role Phone Hortencia Leal PA-C Primary Care Provid er Reason for Visit * Reason Comments Chemotherapy Cyramza/Taxol C3D1 * Evaluate & Treat - Unlimited Visits (Within 10 days (routine)) - Authorized Specialty Diagnoses / Procedures Referred By Lizzie t Referred To Contact *Hem/Onc* Diagnoses Adenocarcinoma in situ of esophagus Prostate cancer (HCC) Procedures EVAL AND TREAT Tai Mccray MD [address] [place] [address] Referral ID Status Reason Start Date Expiration Date Visits Requested Visits Authorized [id number] Authorized Specialty Services Required 2 09/11/2023 999 999 Encounter Details Date Type Department Care Team Description 04/12/2023 Hem/Onc Treatment Hematology/Oncology Treatment, [place] [address] [facility] [place] [phone] Maddy, Chair 5 Hem Onc [facility] [address] [place] [address] [address] 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 As needed . 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 documented as of this encounter (statuses as of 04/12/2023) Immunizations Name Administration Dates Next Due COVID-19 [...] Sign Reading Time Taken Comments Blood Pressure 150/90 04/12/2023 8:50 AM EDT Pulse 81 04/12/2023 8:50 AM EDT Temperature 36.5 C (97.7 F) 04/12/2023 8:50 AM ED T Respiratory Rate 18 04/12/2023 8:50 AM EDT Oxygen Saturation - - Inhaled Oxygen Concentration - - Weight - - Height - - Body Mass Index - - documented in this encounter Nursing Notes * Danielle Calvert RN - 04/12/2023 12:41 PM EDT Functional status at today's visit: Ambulatory and capable of all selfcare but unable to carry out any work activities. Up and about more than 50% of waking hours The drug name, dose, infusion volume, rate and route of administration, expiration date and time, appearance and physical integrity of the drug and rate set on the pump and sequencing of drug administration (as applicable) were verified by me and second sign-in RN. Patient was assessed for symptoms or adverse side effects during treatment. Pt completed treatment without issues. VAD flushed with 10 ml NSS and Heparin 5 ml (100 units/ml). Vasquez needle removed intact. Goals: Pt will remain free from injury. Possible barriers to meeting goals: pt is a high fall risk, risk of reaction Stability of the patient: Moderately stable - low risk of patient condition declining or worsening Summary regarding today's goals: Met: Pt remained free from injury during treatment today. Discharged in stable condition. AB assisted. * Danielle Calvert RN - 04/12/2023 8:51 AM EDT Chair 9, Cyramza/Taxol. Pt seen by Dr. Melo yesterday 04/11/23; refer to OV notes. Labs and BP reviewed with Dr. Melo this morning; okay to proceed with treatment as ordered. VAD accessed; NSS infusing. Safety and Risk for Injury Patient will remain free from injury. Ensure appropriate safety devices are available. Provide and maintain safe environment. documented in this encounter Plan of Treatment Upcoming Encounters Date Type Specialty Care Team Description 04/18/2023 Laboratory Laboratory [place], Lab Scenery [address] [place] [address] 04/19/2023 Hem/Onc Treatment Hematology Oncology [place], Chair 1 Hem Onc Scenery [address] [place] [address] 04/25/2023 Laboratory Laboratory [place], Lab Scenery [address] [facility] [place] [address] 04/26/2023 Hem/Onc Treatment Hematology Oncology [place], Chair 11 Hem Onc Scenery [address] [place] [address] 05/09/2023 Laboratory Laboratory [place], Lab Scenery [address] [place] [address] 05/09/2023 Office Visit Hematology Oncology Nik Melo MD [address] [place] [address] 05/10/2023 Hem/Onc Treatment Hematology Oncology [place], Chair 7 Hem Onc Scenery [address] [facility] [place] [address] 08/21/2023 Procedure Only Urology Cm Rhodes MD [address] [facility] [address] [place] [address] Health Maintenance Due Date Last Done [...] this encounter Medical Devices Implanted Type Area Disaster Recovery Manager Device Identifier Shelf Expiration Date Model / Serial / Lot Cath Power Port 6fr Clearvue - [id number] Implanted:Qty : 1 on 08/10/2021 by Alexander Rodriguez MD at [facility] Left: Subclavian CR BARD : PERIPHERAL VASCULAR 08/21/2021 [id number] / / documented as of this encounter Procedures Procedure Name Priority Date/Time Associated Diagnosis Comments MICROSCOPIC EXAM, URINE Routine 04/12/2023 8:11 AM EDT 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) URINALYSIS, REFLEX TO MICROSCOPIC Routine 04/12/2023 8:11 AM EDT 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) documented in this encounter Results * (ABNORMAL) MICROSCOPIC EXAM, URINE (04/12/2023 8:11 AM EDT) RBC, Urine 0-2 0 - 2 /HPF 04/12/2023 8:31 AM EDT [facility] 56- WBC, Urine 0-2 0 - 2 /HPF 04/12/2023 8:31 AM EDT [facility] 56- Bacteria, Urine 0-25 0 - 25 /HPF 04/12/2023 8:31 AM EDT [facility] 56- Hyaline, Cast, Urine 1-4(A) None /LPF 04/12/2023 8:31 AM EDT [facility] 56- Urine Urine specimen obtained by clean catch procedure / Unknown Non-blood Collection / Unknown 04/12/2023 8:11 AM EDT 04/12/2023 8:19 AM EDT Nik Melo MD LAB URINE ORDERA BLES [facility] [address] [place] [address] * (ABNORMAL) URINALYSIS, REFLEX TO MICROSCOPIC (04/12/2023 8:11 AM EDT) Color, Urine Yellow Light Yellow, Yellow, Dark Yellow 04/12/2023 8:[address] EDT [address] Clarity, Urine Clear Clear 04/12/2023 8:31 AM EDT [address] Glucose, Urine Negative Negative mg/dL 04/12/2023 8:31 AM EDT [address] Bilirubin, Urine Negative Negative 04/12/2023 8:[address] EDT [address] Ketone, Urine Negative Negative mg/dL 04/12/2023 8:[address] EDT [address] Specific [place], Urine 1.025 1.003 - 1.030 04/12/2023 8:31 [address] EDT [address] Blood, Urine Negative Negative 04/12/2023 8:[address]T [address] pH, Urine 5.0 5.0 - 7.5 Units 04/12/2023 8:31 AM EDT [facility] 56 Protein, Urine 100(A) Negative mg/dL 04/12/2023 8:31 AM EDT [address] Urobilinogen, Urine 0.2 0.2, 1.0 mg/dL 04/12/2023 8:31 AM EDT [address] Nitrite, Urine Negative Negative 04/12/2023 8:31 AM EDT [address] Esterase, Urine Negative Negative 04/12/2023 8:31 AM EDT [facility] 56 Urine Urine specimen obtained by clean catch procedure / Unknown Non-blood Collection / Unknown 04/12/2023 8:11 AM EDT 04/12/2023 8:19 AM EDT Nik Melo MD LAB URINE [facility] BL[facility] [address] [place] [address] documented in this encounter Visit Diagnoses Diagnosis 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)- Primary Malignant neoplasm of other specified sites of stomach 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) Prostate cancer (HCC) Malignant neoplasm of prostate Encounter for antineoplastic chemotherapy documented in this encounter Administered Medications Active Administered Medications - up to 3 most recent administrations Medication Order MAR Action Action Date Dose Rate Site diphenhydrAMINE (Benadryl) inj 50 mg 50 mg, IV Push, ONCE PRN Other, Hypersensitivity Reaction, Starting on Chandrika 04/12/23 at 0850, Until Sun04/13/23 at 0849, For 24 hours EPINEPHrine 1 MG/ML inj 0.3 mg 0.3 mg, Intramuscular, ONCE PRN Other, Hypersensitivity Reaction or Anaphylaxis, Starting on Chandrika 04/12/23 at 0850, Until Sun04/13/23 at 0849, For 24 hours hEParin 100 UNIT/ML Lock Flush inj 500 Units 500 Units (5 mL), IV Lock, PRN Other, IV Flush, Starting on Chandrika 04/12/23 at 0850, Until Sun04/13/23 at 0849, For 24 hours, Do not flush if lock, PICC, or central line not in place; IV infusing or unable to flush. Given 04/12/2023 11:19 AM EDT 500 Units Hydrocortisone Sod Suc (PF) (Solu-Cortef) inj 100 mg 100 mg, IV Push, ONCE PRN Other, Hypersensitivity Reaction, Starting on Chandrika 04/12/23 at 0850, Until Sun04/13/23 at 0849, For 24 hours NSS infusion 500 mL, Intravenous, at 50 mL/hr, CONTINUOUS, Starting on Sun04/12/23 at 1000, Until Sun04/12/23 at 1959 Start Infusion 04/12/2023 8:55 AM EDT 500 mL 50 mL/hr sodium chloride 0.9 % flush central line 10 mL 10 mL, IV Push, PRN Other, IV Flush, Starting on Chandrika 04/12/23 at 0850, Until Sun04/13/23 at 0849, For 24 hours, Do not flush if lock, PICC, or central line not in place; IV infusing or unable to flush. Given 04/12/2023 11:19 AM EDT 10 mL Inactive Administered Medications - up to 3 most recent administrations Medication Order MAR Action Action Date Dose Rate Site Acetaminophen (Tylenol) tab 650 mg 650 mg, Oral, ONCE, On Chandrika 04/12/23 at 1000, For 1 dose, Maximum of 4 grams (4000 mg) per day. Given 04/12/2023 9:01 AM EDT 650 mg Dexamethasone (Decadron) tab 12 mg 12 mg, Oral, ONCE, On Chandrika 04/12/23 at 0930, For 1 dose Given 04/12/2023 9:01 AM EDT 12 mg diphenhydrAMINE (Benadryl) 25 mg in NSS 50 mL ivpb 25 mg, IV Piggyback, ONCE, 1 dose, On Chandrika 04/12/23 at 0930 Start Infusion 04/12/2023 9:04 AM EDT 25 mg 200 mL/hr Famotidine (Pepcid) tab 20 mg 20 mg, Oral, ONCE, On Chandrika 04/12/23 at 1000, For 1 dose Given 04/12/2023 9:01 AM EDT 20 mg PACLitaxel (Taxol) 158 mg in NSS 250 mL infusion 158 mg (rounded from 157.6 mg = 80 mg/m2 1.97 m2 Treatment Plan BSA from Recorded weight), IV Piggyback, at 250 mL/hr Administer over 60 Minutes, Administer through 0.22 micron low protein binding filter!, ONCE, 1 dose, On Sun04/12/23 at 1130 Start Infusion 04/12/2023 10:10 AM EDT 158 mg 250 mL/hr Palonosetron (Aloxi) inj SOLN 0.25 mg 0.25 mg, IV Push, ONCE, On Sun04/12/23 at 0930, For 1 dose, Restricted per S antiemetic guidelines Given 04/12/2023 9:02 AM EDT 0.25 mg Ramucirumab (Cyramza) 700 mg in NSS 250 mL infusion 700 mg (rounded from 687.2 mg = 8 mg/kg 85.9 kg Treatment plan Recorded weight), IV Piggyback, ONCE, 1 dose, On Sun04/12/23 at 1030, Administer over 30 Minutes, Administer though 0.22 micron low protein binding filter! Start Infusion 04/12/2023 9:33 AM EDT 700 mg 500 mL/hr documented in this encounter [...] and were consensually agreed upon. Care Teams Stores Clerk Relationship Specialty Start Date End Date Hortencia Leal PA-C [address] [facility], [place] [address] PCP - General Physician Adapted Physical Education Teacher 02/08/18 documented as of this encounter
--- OUTSIDE RECORDS SUMMARY | 2023-06-27 07:36 | External Medical Summary | Summary of Care ---
Author Name Unknown Organization [facility] Address 100 [facility] [place] [address] Phone [phone] Care Team Providers Care Camera Prototyping Engineer Name Role Phone Hortencia Leal PA-C Primary Care Provid er Encounter Details Date Type Department Care Team Description 04/09/2023 Orders Only Hematology/Oncology [facility] [place] 200 [facility] [place] [address] Nik Melo MD 200 [facility] [place] [address] Allergies Active Allergy Reactions Severity Noted Date Comments Amlodipine 11/02/2020 dizziness Codeine Sulfate Other (Please comment) 10/26/19 11 hyperactivity Hydrochlorothiazide 11/02/2020 hypercalcemia Oxaliplatin 02/09/2022 Infusion related reaction documented as of this encounter (statuses as of 04/09/2023) Medications Medication Sig Dispensed Refills Start Date [...] before bedtime. As needed . 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 documented as of this encounter (statuses as of 04/09/2023) Immunizations Name Administration Dates Next Due COVID-19 [...] Encounters Date Type Specialty Care Team Description 04/11/2023 Laboratory Laboratory [facility] 200 [place] [address] 04/11/2023 Office Visit Hematology Oncology Nik Melo MD 200 [place] [address] 04/12/2023 Hem/Onc Treatment Hematology Oncology [place], Chair 5 Hem Onc [facility] 200 [place] [address] 08/21/2023 Procedure Only Urology Cm Rhodes MD 27 [facility] [address] [place] [address] Health Maintenance Due Date Last Done [...] this encounter Medical Devices Implanted Type Area Rib Trim Separator Device Identifier Shelf Expiration Date Model / Serial / Lot Cath Power Port 6fr Clearvue - [id number] Implanted:Qty : 1 on 08/10/2021 by Alexander oRdriguez MD at OR [facility] Left: Subclavian CR BARD : PERIPHERAL VASCULAR 08/21/2021 [id number] / / documented as of this encounter [...] and were consensually agreed upon. Care Teams Camera Prototyping Engineer Relationship Specialty Start Date End Date Hortencia Leal PA-C [address] [place] [address] PCP - General Physician Lockstitch Sleeve Setter 02/08/18 documented as of this encounter
--- OUTSIDE RECORDS SUMMARY | 2023-06-27 07:36 | External Medical Summary ---
Author Name Unknown Address Unknown Organization [id number]:[facility] [place] [address] Laboratory Report Ordering Provider Test Date Status SHAY CH 04/11/2023 07:35:09 Final Observation Date Value Abnormality Reference (Units ) Status BUN 04/11/2023 07:35:09 21 Above high normal 6-20 (mg/dL) Final Creatinine 04/11/2023 07:35:09 1.8 Above high normal 0.6-1.2 (mg/dL) Final Glomerular filtration rate/1.73 sq M.predicted [Volume Rate/Area] in Serum, Plasma or Blood by Creatinine-based formula (CKD-EPI) 04/11/2023 07:35:09 38 Below low normal >=60 (mL/min) Final Performing Location [facility] [place] [address]
--- OUTSIDE RECORDS SUMMARY | 2023-06-27 07:36 | External Medical Summary | Summary of Care ---
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) Procedures MA INJECTION, RAMUCIRUMAB MA PACLITAXEL INJECTION MA PALONOSETRON HCL Nik Melo MD [address] [place] [address] Anc Hem/Onc [place] [address] [place] [phone] Referral ID Status Reason Start Date Expiration Date V isits Requested Visits Authorized [id number] Authorized 01/07/2023 09/21/2099 999 999 Encounter Details Date Type Department Care Team Description 04/19/2023 Hem/Onc Treatment Hematology/Oncology Treatment, [place] [address] [place] [address] [place], Chair 1 Hem Onc [place] [address] [place] [address] 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 As needed . 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 documented as of this encounter (statuses as of 04/19/2023) Immunizations Name Administration Dates Next Due COVID-19 [...] Sign Reading Time Taken Comments Blood Pressure 125/83 04/19/2023 1:21 PM EDT Pulse 93 04/19/2023 1:21 PM EDT Temperature 36.4 C (97.6 F) 04/19/2023 1:21 PM ED T Respiratory Rate 16 04/19/2023 1:21 PM EDT Oxygen Saturation - - Inhaled Oxygen Concentration - - Weight 78.4 kg (172 lb 12.8 oz) 04/19/2023 1:21 PM EDT Height - - Body Mass Index 29.65 01/16/2023 10:35 AM EDT documented in this encounter Nursing Notes * Lakeisha Cortez RN - 04/19/2023 2:49 PM EDT Functional status at today's visit: Restricted in [...] symptoms or adverse side effects during treatment. Goals: Patient will remain free from injury. Possible barriers to meeting goals: risk for falls r/t ambulating with IV pole Stability of the patient: Moderately stable - low risk of patient condition declining or worsening Summary regarding today's goals: Met: pt remained free from falls/ injury, pt tolerated treatment well. Discharged in stable condition. * Lakeisha Cortez RN - 04/19/2023 1:22 PM EDT Chair 12 Chemo agents C3D8 Taxol Appetite He states that he has an appetite and it is there, but it is not great Nausea/Vomiting none Diarrhea none Constipation none Mucositis none Fatigue energy is low at times, he tries to take a nap Bleeding none Infection none Rash none Numbness tingling none Pain none Radiation none ABN Labs WNL for treatment today Alt in Tx: none Return in 1 week for D15 Safety and Risk for Injury Patient will remain free from injury. Ensure appropriate safety devices are available. Provide and maintain safe environment. documented in this encounter Plan of Treatment Upcoming Encounters Date Type Specialty Care Team Description 04/25/2023 Laboratory [facility] [place], Lab Scenery [address] [facility] [place] [address] 04/26/2023 Hem/Onc Treatment Hematology Oncology [place], Chair 11 Hem Onc Sc[place] [address] [place] [address] 05/09/2023 Laboratory Laboratory [place], Lab Scenery [address] [place] [address] 05/09/2023 Office Visit Hematology Oncology Nik Melo MD [address] [place] [address] 05/10/2023 Hem/Onc Treatment Hematology Oncology [place], Chair 7 Hem Onc Sc[address] [place] [address] 08/21/2023 Procedure Only Urology RhodesCm MD 27 [facility] [place] [address] [place] [address] Health Maintenance Due Date Last Done Comments [...] this encounter Medical Devices Implanted Type Area Office Messenger Device Identifier Shelf Expiration Date Model / Serial / Lot Cath Power Port 6fr Clearvue - [id number] Implanted:Qty : 1 on 08/10/2021 by Alexander Rodriguez MD at [facility] Left: Subclavian CR BARD : PERIPHERAL VASCULAR 08/21/2021 [id number] / / documented as of this encounter [...] PRN Other, Hypersensitivity Reaction, Starting on Chandrika 04/19/23 at 1320, Until Sun04/20/23 at 1319, For 24 hours EPINEPHrine 1 MG/ML inj 0.3 mg 0.3 mg, Intramuscular, ONCE PRN Other, Hypersensitivity Reaction or Anaphylaxis, Starting on Chandrika 04/19/23 at 1320, Until Sun04/20/23 at 1319, For 24 hours hEParin 100 UNIT/ML Lock Flush inj 500 Units 500 Units (5 mL), IV Lock, PRN Other, IV Flush, Starting on Chandrika 04/19/23 at 1320, Until Sun04/20/23 at 1319, For 24 hours, Do not flush if lock, PICC, or central line not in place; IV infusing or unable to flush. Given 04/19/2023 2:44 PM EDT 500 Units Hydrocortisone Sod Suc (PF) (Solu-Cortef) inj 100 mg 100 mg, IV Push, ONCE PRN Other, Hypersensitivity Reaction, Starting on Chandrika 04/19/23 at 1320, Until Sun04/20/23 at 1319, For 24 hours NSS infusion 500 mL, Intravenous, at 50 mL/hr, CONTINUOUS, Starting on Chandrika 04/19/23 at 1430, Until Sun04/20/23 at 0029 Start Infusion 04/19/2023 1:15 PM EDT 500 mL 50 mL/hr sodium chloride 0.9 % flush central line 10 mL 10 mL, IV Push, PRN Other, IV Flush, Starting on Sun04/19/23 at 1320, Until Sun04/20/23 at 1319, For 24 hours, Do not flush if lock, PICC, or central line not in place; IV infusing or unable to flush. Given 04/19/2023 2:44 PM EDT 10 mL Inactive Administered Medications - up to 3 most recent administrations Medication Order MAR Action Action Date Dose Rate Site Dexamethasone (Decadron) tab 12 mg 12 mg, Oral, ONCE, On Sun04/19/23 at 1400, For 1 dose Given 04/19/2023 1:27 PM EDT 12 mg diphenhydrAMINE (Benadryl) 25 mg in NSS 50 mL ivpb 25 mg, IV Piggyback, ONCE, 1 dose, On Sun04/19/23 at 1400 Start Infusion 04/19/2023 1:28 PM EDT 25 mg 200 mL/hr Famotidine (Pepcid) tab 20 mg 20 mg, Oral, ONCE, On Sun04/19/23 at 1430, For 1 dose Given 04/19/2023 1:27 PM EDT 20 mg PACLitaxel (Taxol) 158 mg in NSS 250 mL infusion 158 mg (rounded from 157.6 mg = 80 mg/m2 1.97 m2 Treatment Plan BSA from Recorded weight), IV Piggyback, at 250 mL/hr Administer over 60 Minutes, Administer through 0.22 micron low protein binding filter!, ONCE, 1 dose, On Sun04/19/23 at 1500 Start Infusion 04/19/2023 1:44 PM EDT 158 mg 250 mL/hr Palonosetron (Aloxi) inj SOLN 0.25 mg 0.25 mg, IV Push, ONCE, On Sun04/19/23 at 1400, For 1 dose, Restricted per GHS antiemetic guidelines Given 04/19/2023 1:27 PM EDT 0.25 mg documented in this [...] and were consensually agreed upon. Care Teams Dimensional Integration Engineer Relationship Specialty Start Date End Date Hortencai Leal PA-C [facility] [facility] [address] PCP - General Physician Building Estimator 02/08/18 documented as of this encounter
--- OUTSIDE RECORDS SUMMARY | 2023-06-27 07:36 | External Medical Summary ---
Author Name Unknown Address Unknown Organization K01[facility] [place] [address] [address] Laboratory Report Ordering Provider Test Date Status SHAY CH 04/11/2023 07:35:09 Final Observation Date Value Abnormality Reference (Units ) Status TSH 04/11/2023 07:35:09 1.66 0.27-4.20 (uIU/mL) Final Performing Location [facility] [place] [address] [place] [address]
--- OUTSIDE RECORDS SUMMARY | 2023-06-27 07:36 | External Medical Summary ---
Author Name Unknown Address Unknown Organization K09:[facility] [place] [address] Laboratory Report Ordering Provider Test Date Status SHAY CH 04/18/2023 09:52:17 Final Observation Date Value Abnormality Reference (Units ) Status BUN 04/18/2023 09:52:17 25 Above high normal 6-20 (mg/dL) Final Creatinine 04/18/2023 09:52:17 1.7 Above high normal 0.6-1.2 (mg/dL) Final Glomerular filtration rate/1.73 sq M.predicted [Volume Rate/Area] in Serum, Plasma or Blood by Creatinine-based formula (CKD-EPI) 04/18/2023 09:52:17 41 Below low normal >=60 (mL/min) Final Performing Location [facility] [place] [address]
--- OUTSIDE RECORDS SUMMARY | 2023-06-27 07:36 | External Medical Summary | Summary of Care ---
Author Name Unknown Organization [facility] Address 100 [facility] [place] [address] Phone [phone] Care Team Providers Care Cylinder Handler Name Role Phone Hortencia Leal PA-C Primary Care Provid er Reason for Visit * Reason Comments Outpatient Testing Encounter Details Date Type Department Care Team Description 04/11/2023 Laboratory Laboratory [facility] [place] [address] [place] [address] [facility] [address] [facility] [place] [address] 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 [...] before bedtime. As needed . 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) 04/11/2023 7:35 AM EDT TSH WITH FREE T4 IF INDICATED Lab STAT Encounter for adjustment and management of vascular access device 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) Prostate cancer (HCC) Encounter for long-term (current) use of medications 04/11/2023 7:35 AM EDT Health Maintenance Due Date Last [...] this encounter Medical Devices Implanted Type Area Irrigation Engineer Device Identifier Shelf Expiration Date Model / Serial / Lot Cath Power Port 6fr Clearvue - [id number] Implanted:Qty : 1 on 08/10/2021 by Alexander Rodriguez MD at [facility] Left: Subclavian CR BARD : PERIPHERAL VASCULAR 08/21/2021 [id number] / / documented as of this encounter Procedures Procedure Name Priority Date/Time Associated Diagnosis Comments DIFFERENTIAL, AUTOMATED STAT 04/11/2023 7:35 AM EDT 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) CBC WITH WBC DIFFERENTIAL STAT 04/11/2023 7:35 AM EDT 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) CBC STAT 04/11/2023 7:35 AM EDT 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) documented in this encounter Results * (ABNORMAL) DIFFERENTIAL, AUTOMATED (04/11/2023 7:35 AM EDT) WBC 5.52 4.00 - 10.80 K/uL 04/11/2023 7:43 AM EDT [facility] 56-02 Neutrophils % 49.5 40.0 - 75.0 % 04/11/2023 7:43 AM EDT [facility] 56-02 Lymphocytes % 31.5 18.0 - 42.0 % 04/11/2023 7:43 AM EDT [facility] 56-02 Monocytes % 15.8(H) 1.0 - 11.0 % 04/11/2023 7:43 AM EDT [facility] 56-02 Eosinophils % 2.5 0.0 - 6.0 % 04/11/2023 7:43 AM EDT [facility] 56-02 Basophils % 0.7 0.0 - 2.0 % 04/11/2023 7:43 AM EDT [facility] 56-02 Absolute Neutrophils 2.73 1.80 - 7.70 K/uL 04/11/2023 7:43 AM EDT [facility] 56-02 Absolute Lymphocytes 1.74 1.00 - 4.80 K/ul 04/11/2023 7:43 AM EDT [facility] 56-02 Absolute Monocytes 0.87 0.00 - 1.10 K/uL 04/11/2023 7:43 AM EDT [facility] 56-02 Absolute Eosinophils 0.14 0.00 - 0.70 K/uL 04/11/2023 7:43 AM EDT [facility] 56-02 Absolute Basophils 0.04 0.00 - 0.20 K/uL 04/11/2023 7:43 AM EDT [facility] 56-02 Blood Venous blood specimen / Unknown Venipuncture / Unknown 04/11/2023 7:35 AM EDT 04/11/2023 7:35 AM EDT Nik Melo MD LAB BLOOD ORDERA BLES [facility] 56 [address] [place] [address] * (ABNORMAL) CBC (04/11/2023 7:35 AM EDT) WBC 5.52 4.00 - 10.80 K/uL 04/11/2023 7:43 AM EDT [facility] 56 RBC 3.95 4.50 - 5.25 M/uL 04/11/2023 7:43 AM EDT [facility] 56 HGB 10.8(L) 14.0 - 16.8 g/dL 04/11/2023 7:43 AM EDT [facility] 56 HCT 36.2(L) 40.0 - 48.4 % 04/11/2023 7:43 AM EDT [facility] 56 MCV 91.6 82.0 - 99.5 fL 04/11/2023 7:43 AM EDT [facility] 56 MCH 27.3 27.0 - 34.0 pg 04/11/2023 7:43 AM EDT [address] MCHC 29.8 32.0 - 36.0 g/dL 04/11/2023 7:43 AM EDT [facility] 56 RDW 20.4 11.5 - 15.5 % 04/11/2023 7:43 AM EDT [facility] 56- PLT 175 140 - 400 K/uL 04/11/2023 7:43 AM EDT [facility] 56 MPV 9.3 6.6 - 11.1 fL 04/11/2023 7:43 AM EDT [facility] 56 Blood Venous blood specimen / Unknown Venipuncture / Unknown 04/11/2023 7:35 AM EDT 04/11/2023 7:35 AM EDT Nik Melo MD LAB BLOOD ORDERA BLES [facility] [address] [place] [address] documented in this encounter Visit Diagnoses Diagnosis [...] and were consensually agreed upon. Care Teams Cylinder Handler Relationship Specialty Start Date End Date Hortencia Leal PA-C [address] [place] [address] PCP - General Physician Emu Farm Worker 02/08/18 documented as of this encounter
--- OUTSIDE RECORDS SUMMARY | 2023-06-27 07:36 | External Medical Summary | Summary of Care ---
Author Name Unknown Organization [facility] Address [address] [facility] [place] [address] Phone [phone] Care Team Providers Care Executive Wellness Programs Director Name Role Phone Hortencia Plata PA-C Primary Care Provid er Reason for Visit * Reason Comments Follow Up Encounter Details Date Type Department Care Team Description 04/04/2023 Office Visit Urology, [facility] [address] [facility] [place] [address] mC Rhodes MD 27 [facility] [address] [place] [address] Prostate cancer (HCC)*; Kidney stones; RINA (stress urinary incontinence), male; Rising PSA following treatment for malignant neoplasm of prostate Allergies Active Allergy Reactions Severity Noted Date Comments Amlodipine 11/02/2020 dizziness Codeine Sulfate Other (Please comment) 10/26/19 11 hyperactivity Hydrochlorothiazide 11/02/2020 hypercalcemia Oxaliplatin 02/09/2022 Infusion related reaction documented as of this encounter (statuses as of 04/04/2023) Medications Medication Sig Dispensed Refills Start Date [...] before bedtime. As needed . 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 Past notes are reviewed. PSA remains low despite a lack of recent ADT injection. Recent CT visit for constipation is noted. Bladder wall thickening is also noted. He denies gross hematuria. His ongoing difficulties with esophageal CA for which he is undergoing chemoRx. He notes this is burdensome. Prostate cancer: Prostatectomy October 2011 by . Final pathology:pT2c negative margins, Gleason3+4 and + perineural invasion, - NELLY. 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 LupronfromNov 2016to 2019.Restarted in 2020 due to a rising PSA,last injection March 2021. PSA Results: Lab Results Component Value Date/Time PSA - [facility] 0.05 04/18/2022 10:21 AM PSA - [facility] <0.02 11/29/2021 09:32 AM PSA - [facility] <0.02 08/03/2021 01:48 PM PSA - [facility] 0.08 11/01/2020 10:00 AM PSA - [facility] <0.02 02/24/2020 09:52 AM PSA - [facility] <0.02 11/21/2019 09:43 AM PSA-OUTSIDE LAB 0.074 05/16/2016 12:00 AM Current Outpatient Medications Medication Sig Dispense Refill LISINOPRIL 20 MG PO TABS Take by mouth 2 times a day. METFORMIN ER 500 MG PO TB24 Take 500 mg by mouth 2 times a day. VITAMIN B-12 1000 MCG PO TABS Take 500 mcg by mouth. ATORVASTATIN CALCIUM 20 MG PO TABS Take 40 mg by mouth. Cholecalciferol (VITAMIN D-3) 1000 units Capsule Take 1,000 Units by mouth daily. Aspirin 81 MG Tablet Take 81 mg by mouth daily. meclizine (ANTIVERT) 12.5 MG Tablet Take 12.5 mg by mouth 2 times a day. As needed [place]-3 Fatty Acids (FISH OIL) 1000 MG Capsule Take 1,000 mg by mouth daily. 2 capsules by mouth twice daily Alogliptin Benzoate 12.5 MG TABS Take 12.5 mg by mouth daily. Ferrous Sulfate 325 (65 Fe) MG Oral Tablet (Feosol) TAKE ONE TABLET BY MOUTH EVERY 48 HOURS SAME IRON Vitamin C 500 MG Oral Capsule Take by mouth. Polyethylene Glycol 3350 17 GM/SCOOP Oral Powder (MiraLax) Take 17 g by mouth daily. Sucralfate 1 GM Oral Tablet (Carafate) Take [...] morning ofeach taxol treatment 54 Tablet 1 No current facility-administered medications for this visit. Review of patient's allergies indicates: Allergen Reactions Amlodipine dizziness Codeine Sulfate Other (Please comment) hyperactivity Hctz [Hydrochlorothiazide] hypercalcemia Oxaliplatin Infusion related reaction Social History: Social History Tobacco Use Smoking status: Never Smokeless tobacco: Never Substance Use Topics Alcohol use: No Vaping/E-Cigarette Use Vaping/E-Cigarette Use Never User Vaping/E-Cigarette Substances Vaping/E-Cigarette Devices Family History 1 item Father Colon cancer Past Surgical History: Procedure Laterality Date COLONOSCOPY COLONOSCOPY, DIAGNOSTIC (RECTUM) 03/07/2013 path shows adenomatous polyp repeat in 5 years COLONOSCOPY, DIAGNOSTIC (RECTUM) 04/12/2018 adenomatous polyps, diverticulosis, repeat 3 yrs/COLONOSCOPY FLEXIBLE PROXIMAL DIAGNOSTIC performedby Roz Tracey MD at ENDOSCOPY [facility] COLONOSCOPY, DIAGNOSTIC (RECTUM) 07/15/2021 hyperplastic polyp, diverticulosis / COLONOSCOPY FLEXIBLE PROXIMAL DIAGNOSTIC performed by Roz Clark MD at ENDOSCOPY [facility] EGD, FLEXIBLE, DIAGNOSTIC 07/15/2021 Malignancy of the GEJ - Invasive adenocarcinoma / ESOPHAGOGASTRODUODENOSCOPY (EGD), FLEXIBLE, TRANSORAL, DIAGNOSTIC performed by Roz Tracey MD at ENDOSCOPY [facility] EGD, W/ENDOSCOPIC US 08/02/2021 mass lower third of esophagus and extending to the mid stomach consistant with previously diagnosedadenocarcinoma/ESOPHAGOGASTRODUODENOSCOPY (EGD), FLEXIBLE, TRANSORAL, ENDOSCOPIC ULTRASOUND performed by Brendan Gomez MD at ENDOSCOPY [facility] INSER TUNN ACC DEV;5 YRS/OLDER N/A 08/10/2021 INSERT TUNNELED CENTRAL VENOUS ACCESS WITH SUBQ PORT performed by Alexander Rodriguez MD at OR [facility] KNEE ARTHROSCOPY, DIAGNOSTIC 1989 Knee Arthroscopy right LAPAROSCOPY,BIOPSY N/A 08/10/2021 LAPAROSCOPY WITH BIOPSY performed by Alexander Rodriguez MD at [facility] NEEDLE/PUNCH BIOPSY OF PROSTATE 01/05/2011 BIOPSY PROSTATE NEEDLE performed by EYAD LANDRUM at [facility] PROSTATECTOMY, RETROPUBIC RADICAL, LAP 10/30/2011 ROBOTIC LAPAROSCOPIC PROSTATECTOMY RETROPUBIC RADICAL performed by EYAD LANDRUM at OR [facility] REMOVAL OF TONSILS, UNDER AGE 12 Tonsillectomy REPAIR INITIAL INCISIONAL HERNIA 04/18/2012 Laparoscopic ventral hernia repair with 4 x [address] Adams 04/18/12 US ECHO TRANSRECTAL/PROSTATE 01/05/2011 ULTRASOUND TRANSRECTAL performed by EYAD LANDRUM at OR [facility] Past Medical History: Diagnosis Date Actinic keratosis [...] unguium Ventral hernia without obstruction or gangrene Patient Active Problem List Diagnosis Code Other ventral hernia without mention of obstruction or gangrene K43.9 Prostate cancer (HCC) C61 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 Appearance: Normal appearance. He is not toxic-appearing. HENT: Head: Normocephalic and atraumatic. Right Ear: External ear normal. Left Ear: External ear normal. Nose: Nose normal. Mouth/Throat: Mouth: Mucous membranes are moist. Cardiovascular: Pulses: Normal pulses. Pulmonary: Effort: Pulmonary effort is normal. No respiratory distress. Abdominal: Palpations: Abdomen is soft. Tenderness: There is no abdominal tenderness. Musculoskeletal: Cervical back: Normal range of motion and neck supple. Lymphadenopathy: Cervical: No cervical adenopathy. Skin: Coloration: Skin is pale. Skin is not cyanotic. Neurological: Mental Status: He is alert and oriented to person, place, and time. Motor: No weakness. Gait: Gait normal. Psychiatric: Attention and Perception: Attention normal. Mood and Affect: Mood and affect normal. Impression/Plan: 77 year old male with a history of prostate cancer, stable PSA, bladder lesion. We are pleased with the patient's PSA results. CT results reviewed with patient - will arrange for cystoscopy for direct evaluation of the area in question. No ADT required for PSA at this time. Above content is personally reviewed. Patient vocalizes good understanding of the treatment plan. Cm Rhodes MD 8:37 AM 04/04/2023 documented in this encounter Nursing Notes * Jenni Sequeira LPN - 04/04/2023 9:10 AM EDT 1 yr ret for hx cap. Rad/onc note and PSA scanned. CT AP done at [facility] 03/28, images available in [employer]. PSA 0.639 on 02/27/23 (scanned) documented in this encounter Plan of Treatment Upcoming Encounters Date Type Specialty Care Team Description 04/11/2023 Laboratory Laboratory Maddy, [facility] Scene [address] [facility] [place] [address] 04/11/2023 Office Visit Hematology Oncology Nik Melo MD [address] [place] [address] 04/12/2023 Hem/Onc Treatment Hematology Oncology [place], Chair 5 Hem Onc Scenery [address] [facility] [place] [address] 08/21/2023 Procedure Only Urology Cm Rhodes MD [address] [facility] [address] [place] [address] Health Maintenance Due Date Last Done Comments [...] this encounter Medical Devices Implanted Type Area Stick Puller Device Identifier Shelf Expiration Date Model / Serial / Lot Cath Power Port 6fr Clearvue - [id number] Implanted:Qty : 1 on 08/10/2021 by Alexander Rodriguez MD at OR [facility] Left: Subclavian CR BARD : PERIPHERAL VASCULAR 08/21/2021 [id number] / / documented as of this encounter Visit Diagnoses Diagnosis Prostate cancer (HCC)- Primary Malignant neoplasm of prostate Kidney stones Calculus of kidney RINA (stress urinary incontinence), male Stress incontinence, male Rising PSA following treatment for malignant neoplasm of prostate documented in this encounter [...] and were consensually agreed upon. Care Teams Executive Wellness Programs Director Relationship Specialty Start Date End Date Hortencia Plata PA-C [address] [place], [place] [address] PCP - General Physician Hvac Sheet Metal Installer Helper 02/08/18 documented as of this encounter
--- OUTSIDE RECORDS SUMMARY | 2023-06-27 07:36 | External Medical Summary | Summary of Care ---
Author Name Unknown Organization [facility] Address [address] [facility] [place] [address] Phone [phone] Care Team Providers Care Wire Coating Operator Metal Name Role Phone Hortencia Leal PA-C Primary Care Provid er Reason for Visit * Reason Onset Date Comments Other 03/28/2023 Encounter Details Date Type Department Care Team Description 03/28/2023 Telephone Hematology/Oncology [facility] Maggie Castañeda [address] [facility] [place] [address] Nik Melo MD [address] [place] [address] Other Allergies Active Allergy Reactions Severity Noted Date [...] before bedtime. As needed . 0 Active [place]-3 Fatty Acids (FISH OIL) 1000 MG Capsule [...] Miscellaneous Notes * Telephone Encounter - TANI Son - 04/12/2023 3:55 PM EDT Spoke to pt, states that he is doing better and don't want to schedule an appt at this time * Telephone Encounter - Lakeisha Cortez RN - 03/29/2023 2:35 PM EDT Scheduling: his appt note for 04/12 should state "C3D1 Cyrzma/Taxol" please update, thanks! * Telephone Encounter - Lakeisha Cortez RN - 03/29/2023 2:13 PM EDT Called patient. He states that he completed the bowel prep and has moved his bowels, he is feeling much better. He states that he feels it would be better to take next week off. Dr Melo: patient wants to resume treatment on 04/12 as scheduled and skip Next week. Will resume with C13D1. Are you in agreement for that? * Telephone Encounter - Opal Wesley LPN - 03/29/2023 10:34 AM EDT Received [facility] medical records, sent to front facer to scan into Epic * Telephone Encounter - TANI Son - 03/28/2023 4:57 PM EDT LMOM for pt to call back to schedule * Telephone Encounter - TANI Johnson - 03/28/2023 3:28 PM EDT Called [facility] Medical Records and spoke to Indira. She will fax over records and will have cali scan in chart tomorrow. * Telephone Encounter - Felicity Zapata RN - 03/28/2023 3:23 PM EDT Pt has not been seen in the office since 2020, will need a new patient appointment. * Telephone Encounter - Lakeisha Cortez RN - 03/28/2023 2:39 PM EDT Returned call to patient. He states that he was up all night in pain and was not able to sleep. He states that he went to the ER at [facility] this morning around 0800. He states that they did a CT scan ofhis abdomen and found a 3 inch stool ball in his sigmoid colon. The recommend f/u with PCP and GI. They advised patient to complete a bowel prep as you would for a colonoscopy. Patients son picked up the medications for this. Patient is not sure when he is going to start it because he is so tired.Advised patient to start it sooner rather than later because it will help with his pain. Dr Melo: patient is having bowel issues, he will not be coming for treatment tomorrow- tomorrow would be D15 of his cycle. Do you want him to come next week for D15 or cancel D15 and have him returnas scheduled on 04/12? GI: FYI on above, patient will need f/u with GI Scheduling: please get ER records from [facility] today and scan in. Thanks! * Telephone Encounter - TANI Johnson - 03/28/2023 2:08 PM EDT /Nursing-patient called and stated that he was in the ER today with a lot of pain. Patient canceled treatment for tomorrow. Please advise as to when patient should reschedule his appts? Thankyou documented in this encounter Plan of Treatment Upcoming Encounters Date Type Specialty Care Team Description 04/18/2023 Laboratory Laboratory Park, Lab Scenery [address] [place] [address] 04/19/2023 Hem/Onc Treatment Hematology Oncology [place], Chair 1 Hem Onc Scenery [address] [place] [address] 04/25/2023 Laboratory Laboratory Maddy, Lab Scenery [address] [place] [address] 04/26/2023 Hem/Onc Treatment Hematology Oncology [place], Chair 11 Hem Onc Scenery [address] [place] [address] 05/09/2023 Laboratory Laboratory Maddy, Lab Scenery [address] [place] [address] 05/09/2023 Office Visit Hematology Oncology Nik Melo MD [address] [place] [address] 05/10/2023 Hem/Onc Treatment Hematology Oncology [place], Chair 7 Hem Onc Scenery [address] [place], [place] [address] 08/21/2023 Procedure Only Urology Cm Rhodes MD [address] [place] [address] [facility] [place] [address] Health Maintenance Due Date Last [...] this encounter Medical Devices Implanted Type Area Counter Helper Device Identifier Shelf Expiration Date Model / Serial / Lot Cath Power Port 6fr Clearvue - [id number] Implanted:Qty : 1 on 08/10/2021 by Alexander Rodriguez MD at [facility] Left: Subclavian CR BARD : PERIPHERAL VASCULAR 08/21/2021 [id number] / / documented as of this encounter [...] and were consensually agreed upon. Care Teams Wire Coating Operator Metal Relationship Specialty Start Date End Date Hortencia Leal PA-C [address] [facility] [address] PCP - General Physician Branch Director 02/08/18 documented as of this encounter
--- OUTSIDE RECORDS SUMMARY | 2023-06-27 07:36 | External Medical Summary ---
Author Name Unknown Address Unknown Organization K09:[facility] [place] [address] Laboratory Report Ordering Provider Test Date Status SHAY CH 04/18/2023 09:52:17 Final Observation Date Value Abnormality Reference (Units ) Status WBC, Total 04/18/2023 09:52:17 6.04 4.00-10.8 0 (K/uL) Final RBC 04/18/2023 09:52:17 3.83 4.50-5.25 (M/uL) Final Hemoglobin 04/18/2023 09:52:17 10.6 Below low normal 14 .0-16.8 (g/dL) Final HCT 04/18/2023 09:52:17 35.0 Below low normal 40. 0-48.4 (%) Final MCV 04/18/2023 09:52:17 91.4 82.0-99.5 (fL) Final MCH 04/18/2023 09:52:17 27.7 27.0-34.0 (pg) Final MCHC 04/18/2023 09:52:17 30.3 32.0-36.0 (g/dL) Final RDW 04/18/2023 09:52:17 20.6 11.5-15.5 (%) Final Platelets 04/18/2023 09:52:17 136 Below low normal 140 -400 (K/uL) Final MPV 04/18/2023 09:52:17 9.7 6.6-11.1 ( fL) Final Performing Location [facility] [place] [address]
--- OUTSIDE RECORDS SUMMARY | 2023-06-27 07:36 | External Medical Summary | Summary of Care ---
Author Name Unknown Organization [facility] Address [address] [facility] [place] [place] [address] Phone [phone] Care Team Providers Care Armoring Machine Operator Name Role Phone Hortencia Leal PA-C Primary Care Provid er Encounter Details Date Type Department Care Team Description 04/16/2023 Orders Only Outcomes Research Department [address] [facility] [place] [address] Surekha Goodson CHRA [employer] Research Other*[id number] Allergies Active Allergy Reactions Severity Noted Date Comments Amlodipine 11/02/2020 dizziness Codeine Sulfate Other (Please comment) 10/26/19 11 hyperactivity Hydrochlorothiazide 11/02/2020 hypercalcemia Oxaliplatin 02/09/2022 Infusion related reaction documented as of this encounter (statuses as of 04/16/2023) Medications Medication Sig Dispensed Refills Start Date [...] before bedtime. As needed . 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 documented as of this encounter (statuses as of 04/16/2023) Immunizations Name Administration Dates Next Due COVID-19 [...] Maddy, Lab Scenery [address] [place] [address] 04/19/2023 Hem/Onc Treatment Hematology Oncology [place], Chair 1 Hem Onc Scenery [address] [place] [address] 04/25/2023 Laboratory Laboratory Maddy, Lab Scenery [address] [place] [address] 04/26/2023 Hem/Onc Treatment Hematology Oncology [place], Chair 11 Hem Onc Scenery [address] [place] [address] 05/09/2023 Laboratory Laboratory Maddy, Lab Scenery [address] [place] [address] 05/09/2023 Office Visit Hematology Oncology Nik Melo MD [address] [place] [address] 05/10/2023 Hem/Onc Treatment Hematology Oncology [place], Chair 7 Hem Onc Scenery [address] [place], [place] [id number] 08/21/2023 Procedure Only Urology Cm Rhodes MD [address] [place] [address] [place] [id number] Scheduled Orders Name Type Priority Associated Diagnoses Orde r Schedule MYCODE SUBSEQUENT ADULT Lab Routine [employer] Research Other*[id number] Every 6 Months for 2 Occurrences starting 04/16/2023 until 05/05/2024 Health Maintenance Due Date Last Done Comments [...] this encounter Medical Devices Implanted Type Area Advertising Writer Device Identifier Shelf Expiration Date Model / Serial / Lot Cath Power Port 6fr Clearvue - [id number] Implanted:Qty : 1 on 08/10/2021 by Alexander Rodriguez MD at OR [facility] Left: Subclavian CR BARD : PERIPHERAL VASCULAR 08/21/2021 [id number] / / documented as of this encounter Visit Diagnoses Diagnosis [employer] Other*[id number] documented in this encounter Advance Directives Latest [...] and were consensually agreed upon. Care Teams Armoring Machine Operator Relationship Specialty Start Date End Date Hortencia Leal PA-C [address] [facility] [address] PCP - General Physician Charging Plug Placer 02/08/18 documented as of this encounter
--- OUTSIDE RECORDS SUMMARY | 2023-06-27 07:37 | External Medical Summary | Summary of Care ---
Author Name Unknown Organization [facility] Address [address] [facility] [place] [address] Phone [phone] Care Team Providers Care Ad Taker Name Role Phone Hortnecia Leal PA-C Primary Care Provid er Reason for Visit * Reason Onset Date Comments Other 03/28/2023 Encounter Details Date Type Department Care Team Description 03/28/2023 Telephone Hematology/[facility] [address] Nik Melo MD 200 [place] [address] Other Allergies Active Allergy Reactions Severity Noted Date Comments Amlodipine 11/02/2020 dizziness Codeine Sulfate Other (Please comment) 10/26/19 11 hyperactivity Hydrochlorothiazide 11/02/2020 hypercalcemia Oxaliplatin 02/09/2022 Infusion related reaction documented as of this encounter (statuses as of 03/28/2023) Medications Medication Sig Dispensed Refills Start Date End Date Status LISINOPRIL 20 MG PO TABS Take by mouth 2 times a day. 0 Active METFORMIN ER 500 MG PO TB24 Take 500 mg by mouth 2 times a day. 0 Active VITAMIN B-12 1000 MCG PO TABS Take 500 mcg by mouth. 0 Active ATORVASTATIN CALCIUM 20 MG PO TABS Take 40 mg by mouth. 0 Active Cholecalciferol (VITAMIN D-3) 1000 units Capsule Take 1,000 Units by mouth daily. 0 Active Aspirin 81 MG Tablet Take 81 mg by mouth daily. 0 Active meclizine (ANTIVERT) 12.5 MG Tablet Take 12.5 mg by mouth 2 times a day. As needed 0 Active [place]-3 Fatty Acids (FISH OIL) 1000 MG Capsule Take 1,000 mg by mouth daily. 2 capsules by mouth twice daily 0 Active Alogliptin Benzoate 12.5 MG TABS Take 12.5 mg by mouth daily. 0 Active Ferrous Sulfate 325 (65 Fe) MG Oral Tablet (Feosol) TAKE ONE TABLET BY MOUTH EVERY 48 HOURS SAME IRON 0 04/01/2021 Active Vitamin C 500 MG Oral Capsule Take by mouth. 0 Active Polyethylene Glycol 3350 17 GM/SCOOP Oral Powder (MiraLax) Take 17 g by mouth daily. 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 She will fax over records and will have cali streeter in chart tomorrow. * Telephone Encounter - [...] that he went to the ER at [facility] this morning around 0800. He states that [...] GI Scheduling: please get ER records from [facility] today and scan in. Thanks! * Telephone Encounter - TANI Johnson - 03/28/2023 2:08 PM EDT /Nursing-patient called and stated that he was in the ER today with a lot of pain. Patient canceled treatment for tomorrow. Please advise as to when patient should reschedule his appts? Rachaelyou documented in this encounter Plan of Treatment Upcoming Encounters Date Type Specialty Care Team Description 04/04/2023 Office Visit Urology Cm Rhodes MD 27 [facility] [place] [address] [place] [address] 04/11/2023 Laboratory Laboratory [place], Lab Scenery [address] [facility] [address] 04/11/2023 Office Visit Hematology Oncology Nik Melo MD 200 [place] [address] 04/12/2023 Hem/Onc Treatment Hematology Oncology [place], Chair [address] [address] Health Maintenance Due Date Last Done Comments [...] this encounter Medical Devices Implanted Type Area Cigarette Machine Operator Device Identifier Shelf Expiration Date Model / Serial / Lot Cath Power Port 6fr Clearvue - [id number] Implanted:Qty : 1 on 08/10/2021 by Alexander Rodriguez MD [place] [facility] Left: Subclavian CR BARD : PERIPHERAL VASCULAR 08/21/2021 [id number] / / documented as of this encounter [...] and were consensually agreed upon. Care Teams Ad Taker Relationship Specialty Start Date End Date Hortencia Leal PA-C [address] [place] [address] PCP - General Physician Security System Technician 02/08/18 documented as of this encounter
--- OUTSIDE RECORDS SUMMARY | 2023-06-27 07:37 | External Medical Summary | Summary of Care ---
Author Name Unknown Organization [facility] Address [address] [facility] [place] [address] Phone [phone] Care Team Providers Care Antique Furniture Reproducer Name Role Phone Hortencia Leal PA-C Primary Care Provid er Reason for Visit * Reason Onset Date Comments Other 03/28/2023 Encounter Details Date Type Department Care Team Description 03/28/2023 Telephone Hematology/Oncology [facility] 200 [facility] [address] Nik Melo MD 200 [place] [place] [address] Other Allergies Active Allergy Reactions Severity Noted Date Comments Amlodipine 11/02/2020 dizziness Codeine Sulfate Other (Please comment) 10/26/19 11 hyperactivity Hydrochlorothiazide 11/02/2020 hypercalcemia Oxaliplatin 02/09/2022 Infusion related reaction documented as of this encounter (statuses as of 03/29/2023) Medications Medication Sig Dispensed Refills Start Date [...] times a day. 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 [...] that he went to the ER at [facility] this morning around 0800. He states [...] GI Scheduling: please get ER records from [facility] today and scan in. Thanks! * Telephone Encounter - TANI Johnson - 03/28/2023 2:08 PM EDT /Nursing-patient called and stated that he was in the ER today with a lot of pain. Patient canceled treatment for tomorrow. Please advise as to when patient should reschedule his appts? Hilariou documented in this encounter Plan of Treatment Upcoming Encounters Date Type Specialty Care Team Description 04/04/2023 Office Visit Urology Cm Rhodes MD 27 [facility] [address] [place] [address] 04/11/2023 Laboratory Laboratory [place], Lab Scenery 200 [place] [address] 04/11/2023 Office Visit Hematology Oncology Nik Melo MD 200 [facility] [place] [address] 04/12/2023 Hem/Onc Treatment Hematology Oncology [place], Chair 5 Hem Onc Scenery 200 [place] [address] Health Maintenance Due Date Last Done Comments [...] this encounter Medical Devices Implanted Type Area Crystal Attacher Device Identifier Shelf Expiration Date Model / Serial / Lot Cath Power Port 6fr Clearvue - [id number] Implanted:Qty : 1 on 08/10/2021 by Alexander Rodriguez MD at [facility] Left: Subclavian CR BARD : PERIPHERAL VASCULAR 08/21/2021 [id number] / / documented as of this encounter [...] and were consensually agreed upon. Care Teams Antique Furniture Reproducer Relationship Specialty Start Date End Date Hortencia Leal PA-C [address] [facility] [address] PCP - General Physician Perinatal Specialist 02/08/18 documented as of this encounter
--- OUTSIDE RECORDS SUMMARY | 2023-06-27 07:37 | External Medical Summary | Summary of Care ---
Author Name Unknown Organization [facility] Address [address] [facility] [place] [address] Phone [phone] Care Team Providers Care Plate Shear Operator Name Role Phone Hortencia Leal PA-C Primary Care Provid er Reason for Visit * Reason Onset Date Comments Other 03/28/2023 Encounter Details Date Type Department Care Team Description 03/28/2023 Telephone Hematology/Oncology [facility] [address] Nik Melo MD 200 [place] [address] Other Allergies Active Allergy Reactions Severity Noted [...] times a day. As needed 0 Active [place]-3 Fatty Acids (FISH OIL) 1000 MG Capsule [...] encounter Miscellaneous Notes * Telephone Encounter - Lakeisha Cortez RN - 03/28/2023 2:39 PM EDT Returned call to patient. He states that he was up all night in pain and was not able to sleep. He states that he went to the ER at [facility] this morning around 0800. He states that [...] GI Scheduling: please get ER records from [facility] today and scan in. Thanks! * Telephone [...] Office Visit Urology Cm Rhodes MD 27 [facility] [address] [place] [address] 04/11/2023 Laboratory Laboratory [facility] Lab Scene 200 [place] [address] 04/11/2023 Office Visit Hematology Oncology Nik Melo MD 200 [facility] [place] [address] 04/12/2023 Hem/Onc Treatment Hematology Oncology [place], Chair 5 Hem Onc Scenery 200 [facility] [place] [address] Health Maintenance Due Date Last Done Comments [...] this encounter Medical Devices Implanted Type Area Website Programmer Device Identifier Shelf Expiration Date Model / Serial / Lot Cath Power Port 6fr Clearvue - [id number] Implanted:Qty : 1 on 08/10/2021 by Alexander Rodriguez MD at [facility] Left: Subclavian CR BARD : PERIPHERAL VASCULAR 08/21/2021 [id number] / / documented as of this encounter [...] were consensually agreed upon. Care Teams Plate Shear Operator Relationship Specialty Start Date End Date Hortencia Leal PA-C [address] [facility] [place] [address] PCP - General Physician Car Salesperson 02/08/18 documented as of this encounter
--- OUTSIDE RECORDS SUMMARY | 2023-06-27 07:37 | External Medical Summary | Summary of Care ---
Author Name Unknown Organization [facility] Address [address] [facility] [place] [address] Phone [phone] Care Team Providers Care Crystal Lapper Name Role Phone Hortencia Leal PA-C Primary Care Provid er Reason for Visit * Reason Onset Date Comments Other 03/28/2023 Encounter Details Date Type Department Care Team Description 03/28/2023 Telephone Hematology/Oncology [facility] 200 [facility] [address] Nik Melo MD 200 [place] [address] Other Allergies Active Allergy Reactions Severity Noted [...] times a day. As needed 0 Active [place]-3 Fatty Acids (FISH OIL) 1000 MG Capsule [...] - 03/28/2023 3:28 PM EDT Called [facility] Medical Records and spoke to Indira. [...] he went to the ER at [facility] this morning around 0800. He states [...] Scheduling: please get ER records from [facility] today and scan in. Thanks! * [...] Office Visit Urology Cm Rhodes MD 27 [facility] [address] [place] [address] 04/11/2023 Laboratory Laboratory [place] Lab [facility] [address] [place] [address] 04/11/2023 Office Visit Hematology Oncology Nik Melo MD 200 [address] [place] [address] 04/12/2023 Hem/Onc Treatment Hematology Oncology [place], Chair 5 Hem Onc Scenery 200 [facility] [place] [address] Health Maintenance Due Date Last Done Comments [...] this encounter Medical Devices Implanted Type Area Display Manager Device Identifier Shelf Expiration Date Model / Serial / Lot Cath Power Port 6fr Clearvue - [id number] Implanted:Qty : 1 on 08/10/2021 by Alexander Rodriguez MD at [place] [facility] Left: Subclavian CR BARD : PERIPHERAL VASCULAR 08/21/2021 [id number] / / documented as of this encounter [...] and were consensually agreed upon. Care Teams Crystal Lapper Relationship Specialty Start Date End Date Hortencia Leal PA-C [address] [place] [address] PCP - General Physician Administrative Director 02/08/18 documented as of this encounter
--- OUTSIDE RECORDS SUMMARY | 2023-06-27 07:37 | External Medical Summary | Summary of Care ---
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) Procedures MT INJECTION, RAMUCIRUMAB MT PACLITAXEL INJECTION MT PALONOSETRON HCL Nik Melo MD 200 [facility] [place] [address] Anc Hem/Onc [facility] [place] [address] Referral ID Status Reason Start Date Expiration Date V isits Requested Visits Authorized [id number] Authorized 01/07/2023 09/21/2099 999 999 Encounter Details Date Type Department Care Team Description 03/22/2023 Hem/Onc Treatment Hematology/Oncology Treatment, [place] [address] [address] [place] [place] [address] [place], Chair 7 Hem Onc [place] [address] [place] [address] 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 documented as of this encounter (statuses as of 03/22/2023) Immunizations Name Administration Dates Next Due COVID-19 [...] Sign Reading Time Taken Comments Blood Pressure 151/89 03/22/2023 10:30 AM EDT Pulse 76 03/22/2023 10:30 AM EDT Temperature 36.5 C (97.7 F) 03/22/2023 10:30 AM E DT Respiratory Rate 18 03/22/2023 10:30 AM EDT Oxygen Saturation 96% 03/22/2023 10:30 AM EDT Inhaled Oxygen Concentration - - Weight 81.9 kg (180 lb 9.6 oz) 03/22/2023 10:30 AM EDT Height - - Body Mass Index 30.98 01/16/2023 10:35 AM EDT documented in this encounter Nursing Notes * Eboni Stevens RN - 03/22/2023 12:34 PM EDT Functional status at today's visit: [...] or adverse side effects during treatment. Goals: pt to remain free from injury Possible barriers to meeting goals: ambulation with IV pole/tubing Stability of the patient: Moderately stable - low risk of patient condition declining or worsening Summary regarding today's goals: Met: pt remained free from injury Pt tolerated Taxol well, discharged in stable condition. * Eboni Stevens RN - 03/22/2023 11:47 AM EDT Ch 8. Pt arrived today for C2D8 Taxol infusion. Pt had labs performed yesterday, results WNL. Pt also met with Dr. Melo yesterday to discuss his tx and his recent tooth infection. Pt confirms as he did during provider appt, he has completed abx and his pain has lessened. Pt further reports he needs a f/u with the dentist to discuss further dental assessment/procedures. He reports good appetite. He reports some mild constipation that he takes Colace PRN rarely for. He reports mild fatigue, takes rest periods and naps. He denies pain, except his tooth that occasionally still is sensitive. Chemo agents Taxol Appetite good Nausea/Vomiting denies Diarrhea denies Constipation mild, rarely needs Colace Mucositis denies Fatigue mild, stable Bleeding denies Infection denies Rash denies Numbness tingling denies Pain occasionally tooth, recent infection Radiation no ABN Labs WNL Alt in Tx: no Return in 1 wk Safety and Risk for Injury Patient will remain free from injury. Ensure appropriate safety devices are available. Provide and maintain safe environment. documented in this encounter Plan of Treatment Upcoming Encounters Date Type Specialty Care Team Description 03/28/2023 Laboratory Laboratory [place], Lab Scenery 200 [place] [address] 03/29/2023 Hem/Onc Treatment Hematology Oncology [place], Chair 5 Hem Onc [facility] 200 [place] [address] 04/04/2023 Office Visit Urology Cm Rhodes MD [address] [id number] 04/11/2023 Laboratory Laboratory [place], Lab [facility] 200 [place] [address] 04/11/2023 Office Visit Hematology Oncology Nik Melo MD 200 [place] [address] 04/12/2023 Hem/Onc Treatment Hematology Oncology [place], Chair [address] [place] [address] Health Maintenance Due Date Last Done Comments [...] this encounter Medical Devices Implanted Type Area Gauge Maker Apprentice Device Identifier Shelf Expiration Date Model / Serial / Lot Cath Power Port 6fr Clearvue - [id number] Implanted:Qty : 1 on 08/10/2021 by Alexander Rodriguez MD [place] [facility] Left: Subclavian CR BARD : PERIPHERAL VASCULAR 08/21/2021 [id number] / / documented as of this encounter [...] PRN Other, Hypersensitivity Reaction, Starting on Chandrika 03/22/23 at 1029, Until Sun03/23/23 at 1028, For 24 hours EPINEPHrine 1 MG/ML inj 0.3 mg 0.3 mg, Intramuscular, ONCE PRN Other, Hypersensitivity Reaction or Anaphylaxis, Starting on Chandrika 03/22/23 at 1029, Until Sun03/23/23 at 1028, For 24 hours hEParin 100 UNIT/ML Lock Flush inj 500 Units 500 Units (5 mL), IV Lock, PRN Other, IV Flush, Starting on Chandrika 03/22/23 at 1029, Until Sun03/23/23 at 1028, For 24 hours, Do not flush if lock, PICC, or central line not in place; IV infusing or unable to flush. Given 03/22/2023 12:12 PM EDT 500 Units Hydrocortisone Sod Suc (PF) (Solu-Cortef) inj 100 mg 100 mg, IV Push, ONCE PRN Other, Hypersensitivity Reaction, Starting on Sun03/22/23 at 1029, Until Sun03/23/23 at 1028, For 24 hours NSS infusion 500 mL, Intravenous, at 50 mL/hr, CONTINUOUS, Starting on Sun03/22/23 at 1130, Until Sun03/22/23 at 2129 Start Infusion 03/22/2023 10:50 AM EDT 500 mL 50 mL/hr sodium chloride 0.9 % flush central line 10 mL 10 mL, IV Push, PRN Other, IV Flush, Starting on Sun03/22/23 at 1029, Until Sun03/23/23 at 1028, For 24 hours, Do not flush if lock, PICC, or central line not in place; IV infusing or unable to flush. Given 03/22/2023 12:12 PM EDT 10 mL Inactive Administered Medications - up to 3 most recent administrations Medication Order MAR Action Action Date Dose Rate Site Dexamethasone (Decadron) tab 12 mg 12 mg, Oral, ONCE, On Sun03/22/23 at 1100, For 1 dose Given 03/22/2023 10:53 AM EDT 12 mg diphenhydrAMINE (Benadryl) 25 mg in NSS 50 mL ivpb 25 mg, IV Piggyback, ONCE, 1 dose, On Sun03/22/23 at 1100 Start Infusion 03/22/2023 10:54 AM EDT 25 mg 200 mL/hr Famotidine (Pepcid) tab 20 mg 20 mg, Oral, ONCE, On Sun03/22/23 at 1130, For 1 dose Given 03/22/2023 10:53 AM EDT 20 mg PACLitaxel (Taxol) 158 mg in NSS 250 mL infusion 158 mg (rounded from 157.6 mg = 80 mg/m2 1.97 m2 Treatment Plan BSA from Recorded weight), IV Piggyback, at 250 mL/hr Administer over 60 Minutes, Administer through 0.22 micron low protein binding filter!, ONCE, 1 dose, On Sun03/22/23 at 1200 Start Infusion 03/22/2023 11:11 AM EDT 158 mg 250 mL/hr Palonosetron (Aloxi) inj SOLN 0.25 mg 0.25 mg, IV Push, ONCE, On Chandrika 03/22/23 at 1100, For 1 dose, Restricted per GHS antiemetic guidelines Given 03/22/2023 10:53 AM EDT 0.25 mg documented in this encounter [...] and were consensually agreed upon. Care Teams Oak Tanner Relationship Specialty Start Date End Date Hortencia Leal PA-C [address] [facility] [address] PCP - General Physician Plaster Mixer 02/08/18 documented as of this encounter
--- OUTSIDE RECORDS SUMMARY | 2023-06-27 07:37 | External Medical Summary | Summary of Care ---
Author Name Unknown Organization [facility] Address 100 [facility] [place] [address] Phone [phone] Care Team Providers Care Oil Laboratory Analyst Name Role Phone Hortencia Leal PA-C Primary Care Provid er Encounter Details Date Type Department Care Team Description 03/30/2023 Orders Only Hematology/Oncology [facility] [place] 200 [facility] [place] [address] Nik Melo MD 200 [place] [address] Allergies Active Allergy Reactions Severity Noted Date Comments Amlodipine 11/02/2020 dizziness Codeine Sulfate Other (Please comment) 10/26/19 11 hyperactivity Hydrochlorothiazide 11/02/2020 hypercalcemia Oxaliplatin 02/09/2022 Infusion related reaction documented as of this encounter (statuses as of 03/30/2023) Medications Medication Sig Dispensed Refills Start Date [...] times a day. 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 documented as of this encounter (statuses as of 03/30/2023) Immunizations Name Administration Dates Next Due COVID-19 [...] Office Visit Urology Cm Rhodes MD [address] [place] [address] [place] [address] 04/11/2023 Laboratory Laboratory [facility] 200 [place] [address] 04/11/2023 Office Visit Hematology Oncology Nik Melo MD 200 [place] [address] 04/12/2023 Hem/Onc Treatment Hematology Oncology [place], Chair 5 Hem Onc Scene [address] [facility] [address] Pending Results Name Type Priority Associated Diagnoses Date /Time CT ABD/PELVIS W IV AND W ORAL CONTRAST Medical Imaging Routine 03/28/2023 CHEMISTRY-OUTSIDE Lab Routine 023 Health Maintenance Due Date Last Done Comments [...] this encounter Medical Devices Implanted Type Area Calculation Clerk Device Identifier Shelf Expiration Date Model / Serial / Lot Cath Power Port 6fr Clearvue - [id number] Implanted:Qty : 1 on 08/10/2021 by Alexander Rodriguez MD at [facility] Left: Subclavian CR BARD : PERIPHERAL VASCULAR 08/21/2021 [id number] / / documented as of this encounter [...] and were consensually agreed upon. Care Teams Oil Laboratory Analyst Relationship Specialty Start Date End Date Hortencia Leal PA-C [address] [facility] [address] PCP - General Physician Observation Nurse 02/08/18 documented as of this encounter
--- OUTSIDE RECORDS SUMMARY | 2023-06-27 07:37 | External Medical Summary | Summary of Care ---
Author Name Unknown Organization [facility] [address] [facility] [address] Phone [phone] Care Team Providers Care Track Broom Operator Name Role Phone Hortencia Leal PA-C Primary Care Provid er Encounter Details Date Type Department Care Team Description 03/28/2023 Orders Only Unspecified Department Hortencia Leal [facility]-C [address] [facility] [address] Allergies Active Allergy Reactions Severity Noted Date [...] times a day. As needed 0 Active [place]-3 Fatty Acids (FISH OIL) 1000 MG Capsule [...] Encounters Date Type Specialty Care Team Description 03/29/2023 Hem/Onc Treatment Hematology Oncology [place], Chair 5 Hem Onc Scenery 200 [facility] [place] [address] 04/04/2023 Office Visit Urology Cm Rhodes MD [address] [place] [address] 04/11/2023 Laboratory Laboratory [facility] [address] [place] [address] 04/11/2023 Office Visit Hematology Oncology Nik Melo MD 200 [facility] [place] [address] 04/12/2023 Hem/Onc Treatment Hematology Oncology [place], Chair 5 Hem Onc Scenery 200 [facility] [place] [address] Health Maintenance Due Date Last Done Comments [...] this encounter Medical Devices Implanted Type Area Hairspring Truing Inspector Device Identifier Shelf Expiration Date Model / Serial / Lot Cath Power Port 6fr Clearvue - [id number] Implanted:Qty : 1 on 08/10/2021 by Alexander Rodriguez MD at [facility] Left: Subclavian CR BARD : PERIPHERAL VASCULAR 08/21/2021 [id number] / / documented as of this encounter Procedures Procedure Name Priority Date/Time Associated Diagnosis Comments RADIOLOGY EXAM - CT (IMAGES ONLY, NO REPORT) Routine 03/28/2023 9:35 AM EDT documented in this encounter Results * RADIOLOGY EXAM - CT (IMAGES ONLY, NO REPORT) (03/28/2023 9:35 AM EDT) 03/28/2023 9:33 AM EDT Narrative Scheduling, Silent - 03/28/2023 11:22 AM EDT This is an imaging study not interpreted or resulted by a [facility] or [facility] contracted radiologist. Hortencia Leal PA-C RAD CT documented in this encounter Advance Directives Latest [...] and were consensually agreed upon. Care Teams Track Broom Operator Relationship Specialty Start Date End Date Hortencia Leal PA-C [facility] [facility] [place] [address] PCP - General Physician Horse Doctor 02/08/18 documented as of this encounter
--- OUTSIDE RECORDS SUMMARY | 2023-06-27 07:37 | External Medical Summary | Summary of Care ---
Author Name Unknown Organization [facility] Address [address] [facility] [place] [address] Phone [phone] Care Team Providers Care Grants Administrator Name Role Phone Hortencia Leal PA-C Primary Care Provid er Reason for Visit * Reason Onset Date Comments Referral 03/29/2023 [facility] Encounter Details Date Type Department Care Team Description 03/29/2023 Telephone Pharmacy, [place] [address] [facility] [place] [address] [facility] [address] [place] [facility] [place] [address] Referral ([facility]) Allergies Active Allergy Reactions Severity Noted Date [...] times a day. As needed 0 Active [place]-3 Fatty Acids (FISH OIL) 1000 MG Capsule [...] Miscellaneous Notes * Telephone Encounter - TANI Hutchinson - 03/29/2023 2:50 PM EDT Heath Austin has not contacted the clinic to schedule/reschedule an appointment for diabetes management per referral from pcp despite multiple requests (via phone, letter and/or [facility]) to doso by our team. Heath is discharged from the Medication Therapy Disease Management (MTDM) service at this time due to inability to connect via letter, phone and/or MyG after 4 attempts. Thank you, Kishan Rutledge Showroom Sales Assistant 03/29/2023,2:54 PM documented in this encounter Plan of Treatment Upcoming Encounters Date Type Specialty Care Team Description 04/04/2023 Office Visit Urology Cm Rhodes MD [address] [place] [address] [place] [address] 04/11/2023 Laboratory Laboratory Enrique Castañeda 200 [address] [place] [address] 04/11/2023 Office Visit Hematology Oncology Nik Melo MD 200 [place] [address] 04/12/2023 Hem/Onc Treatment Hematology Oncology [place], Chair 5 Hem Onc [facility] 200 [place] [address] Health Maintenance Due Date Last Done Comments [...] this encounter Medical Devices Implanted Type Area Project Coach Device Identifier Shelf Expiration Date Model / Serial / Lot Cath Power Port 6fr Clearvue - [id number] Implanted:Qty : 1 on 08/10/2021 by Alexander Rodriguez MD at [place] [facility] Left: Subclavian CR BARD : PERIPHERAL VASCULAR 08/21/2021 [id number] / / documented as of this encounter [...] and were consensually agreed upon. Care Teams Grants Administrator Relationship Specialty Start Date End Date Hortencia Leal PA-C [address] [facility] [address] PCP - General Physician Client Services Vice President 02/08/18 documented as of this encounter
--- OUTSIDE RECORDS SUMMARY | 2023-06-27 07:37 | External Medical Summary | Summary of Care ---
Author Name Unknown Organization [facility] Address [address] [facility] [place] [address] Phone [phone] Care Team Providers Care Child And Family Services Specialist Name Role Phone Hortencia Leal PA-C Primary Care Provid er Encounter Details Date Type Department Care Team Description 03/28/2023 Hospital Encounter Radiology Film File [address] [facility] [place] [address] Arrived Allergies Active Allergy Reactions Severity Noted [...] a day. As needed 0 Active [place]-3 Fatty Acids (FISH OIL) 1000 MG Capsule [...] Rhodes MD [address] [place] [address] [place], [place] [address] 04/11/2023 Laboratory Laboratory [facility] 200 [place] [address] 04/11/2023 Office Visit Hematology Oncology Nik Melo MD 200 [place] [address] 04/12/2023 Hem/Onc Treatment Hematology Oncology [place], Chair 5 Hem [address] [address] Health Maintenance Due Date Last Done Comments [...] this encounter Medical Devices Implanted Type Area Electric Bath Attendant Device Identifier Shelf Expiration Date Model / Serial / Lot Cath Power Port 6fr Clearvue - [id number] Implanted:Qty : 1 on 08/10/2021 by Alexander Rodriguez MD at [facility] Left: Subclavian CR BARD : PERIPHERAL VASCULAR 08/21/2021 [id number] / / documented as of this encounter [...] study not interpreted or resulted by a [facility] or [place] contracted radiologist. Hortencia Leal PA-C RAD CT [...] and were consensually agreed upon. Care Teams Child And Family Services Specialist Relationship Specialty Start Date End Date Hortencia Leal PA-C [address] [place] [address] PCP - General Physician History Tutor 02/08/18 documented as of this encounter
--- OUTSIDE RECORDS SUMMARY | 2023-06-27 07:37 | External Medical Summary | Summary of Care ---
Author Name Unknown Organization [facility] Address [address] [facility] [place] [address] Phone [phone] Care Team Providers Care Support Dba Name Role Phone Hortencia Leal PA-C Primary Care Provid er Reason for Visit * Reason Onset Date Comments Other 03/28/2023 Encounter Details Date Type Department Care Team Description 03/28/2023 Telephone Hematology/Oncology [facility] 200 [facility] [address] Nik Melo MD 200 [place] [address] Other Allergies Active Allergy Reactions Severity Noted [...] times a day. As needed 0 Active [place] [employer]-3 Fatty Acids (FISH OIL) 1000 MG Capsule [...] be better to take next week off. Lorie: patient wants to resume treatment on 04/12 as scheduled and skip Next week. Will resume with C13D1. Are you in agreement for that? * Telephone Encounter - Opal Wesley LPN - 03/29/2023 10:34 AM EDT Received [facility] medical records, sent to front office java developer to scan into Epic * Telephone Encounter - TANI Son - 03/28/2023 4:57 PM EDT LMOM for pt to call back to schedule * Telephone Encounter - TANI Johnson - 03/28/2023 3:28 PM EDT Called [facility] Medical Records and spoke to Indira. She [...] that he went to the ER at [facility] this morning around 0800. He [...] GI Scheduling: please get ER records from [facility] today and scan in. Thanks! [...] Office Visit Urology Cm Rhodes MD 27 [facility] 270 [place] [address] 04/11/2023 Laboratory Laboratory [address] [address] 04/11/2023 Office Visit Hematology Oncology Nik Melo MD 200 [place] [address] 04/12/2023 Hem/Onc Treatment Hematology Oncology [place], Chair 5 Hem On[address] [address] Health Maintenance Due Date Last Done Comments [...] this encounter Medical Devices Implanted Type Area Bank Officer Device Identifier Shelf Expiration Date Model / Serial / Lot Cath Power Port 6fr Clearvue - [id number] Implanted:Qty : 1 on 08/10/2021 by Alexander Rodriguez MD at [facility] Left: Subclavian CR BARD : PERIPHERAL VASCULAR 08/21/2021 [id number] / / documented as of this encounter [...] and were consensually agreed upon. Care Teams Support Dba Relationship Specialty Start Date End Date Hortencia Leal PA-C [address] [facility] [facility] [place], [place] [address] PCP - General Physician Flight Communications Officer 02/08/18 documented as of this encounter
--- OUTSIDE RECORDS SUMMARY | 2023-06-27 07:37 | External Medical Summary | Summary of Care ---
Author Name Unknown Organization [facility] Address [address] [facility] [place] [address] Phone [phone] Care Team Providers Care Curator Name Role Phone Hortencia Leal PA-C Primary Care Provid er Reason for Visit * Reason Onset Date Comments Other 03/28/2023 Encounter Details Date Type Department Care Team Description 03/28/2023 Telephone Hematology/Oncology [facility] [address] Nik Melo MD 200 [place] [address] Other Allergies Active Allergy Reactions Severity Noted [...] times a day. As needed 0 Active [place]-3 Fatty Acids (FISH OIL) 1000 MG Capsule [...] LPN - 03/29/2023 10:34 AM EDT Received [facility] medical records, sent to commercial front load operator to scan into Epic * Telephone Encounter - TANI Son - 03/28/2023 4:57 PM EDT LMOM for pt to call back to schedule * Telephone Encounter - TANI Johnson - 03/28/2023 3:28 PM EDT Called [facility] Medical Records and spoke to Indira. [...] he went to the ER at [facility] this morning around 0800. He states [...] Scheduling: please get ER records from [facility] today and scan in. Thanks! * [...] [address] [place] [address] [place] [address] 04/11/2023 Laboratory Laboratory [facility] Lab [facility] 200 [place] [address] 04/11/2023 Office Visit Hematology Oncology Nik Melo MD 200 [place] [address] 04/12/2023 Hem/Onc Treatment Hematology Oncology [place], Chair 5 Hem Onc Scenery 200 [facility] [place] [address] Health Maintenance Due Date Last Done Comments [...] this encounter Medical Devices Implanted Type Area Sheet Rock Applicator Device Identifier Shelf Expiration Date Model / Serial / Lot Cath Power Port 6fr Clearvue - [id number] Implanted:Qty : 1 on 08/10/2021 by Alexander Rodriguez MD at [facility] Left: Subclavian CR BARD : PERIPHERAL VASCULAR 08/21/2021 [id number] / / documented as of this encounter [...] and were consensually agreed upon. Care Teams Curator Relationship Specialty Start Date End Date Hortencia Leal PA-C [address] [place] [address] PCP - General Physician Inventory Control/Shipping Receiving 02/08/18 documented as of this encounter
--- OUTSIDE RECORDS SUMMARY | 2023-06-27 07:37 | External Medical Summary | Summary of Care ---
Author Name Unknown Organization [facility] Address [address] [facility] [place] [address] Phone [phone] Care Team Providers Care Tank Pumper Name Role Phone Hortencia Leal PA-C Primary Care Provid er Reason for Visit * Reason Onset Date Comments Other 03/28/2023 Encounter Details Date Type Department Care Team Description 03/28/2023 Telephone Hematology/Oncology [facility] 200 [facility] [address] Nik Melo MD 200 [place] [address] Other Allergies Active Allergy Reactions Severity Noted [...] times a day. As needed 0 Active [place]-3 Fatty Acids (FISH OIL) 1000 MG Capsule [...] Rhodes MD [address] [place] [address] [place] [address] 04/11/2023 Laboratory Laboratory Enrique Castañeda [facility] 200 [place] [address] 04/11/2023 Office Visit Hematology Oncology Nik Melo MD 200 [place] [address] 04/12/2023 Hem/Onc Treatment Hematology Oncology [place], Chair 5 Hem Onc Scenery 200 [place] [address] Health Maintenance Due Date Last Done Comments [...] this encounter Medical Devices Implanted Type Area Firebrick Layer Device Identifier Shelf Expiration Date Model / Serial / Lot Cath Power Port 6fr Clearvue - [id number] Implanted:Qty : 1 on 08/10/2021 by Alexander Rodriguez MD at OR [facility] Left: Subclavian CR BARD : PERIPHERAL VASCULAR 08/21/2021 [id number] / / documented as of this encounter [...] and were consensually agreed upon. Care Teams Tank Pumper Relationship Specialty Start Date End Date Hortencia Leal PA-C [address] [place] [address] PCP - General Physician Tourist Information Assistant 02/08/18 documented as of this encounter
--- OUTSIDE RECORDS SUMMARY | 2023-06-27 07:37 | External Medical Summary | Summary of Care ---
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 documented as of this encounter (statuses as of 03/21/2023) Immunizations Name Administration Dates Next Due COVID-19 [...] Sign Reading Time Taken Comments Blood Pressure 147/83 03/21/2023 8:58 AM EDT Pulse 60 03/21/2023 8:58 AM EDT Temperature 36.7 C (98.1 F) 03/21/2023 8:58 AM ED T Respiratory Rate 16 03/21/2023 8:58 AM EDT Oxygen Saturation 95% 03/21/2023 8:58 AM EDT Inhaled Oxygen Concentration - - Weight 81.7 kg (180 lb 3.2 oz) 03/21/2023 8:58 A M EDT Height - - Body Mass Index 30.92 01/16/2023 10:35 AM EDT documented in this encounter Progress Notes * Nik Melo MD - 03/21/2023 9:06 AM EDT Outpatient Consult Note Data Source: Patient, Epic record. Data Source: Patient, Epic record. 03/21/2023 9:06 AM Heath Austin [id number] 77 year old Patient Encounter: HEMATOLOGY/ONCOLOGY [facility] Cancer Diagnosis: -Metastatic esophageal cancer-laparoscopic biopsy of the peritoneal nodule which is positive for metastatic disease - Prostate cancer,pT2, Group IIA, Juan 3+4 Current Treatment: On ramcirumab Previous Treatment: -Nivolumab was added on 11/02/2021 -on Eligard for the prostate cancer Received total of 9 cycles of FOLFOX.Nivolumab was added on 11/02/2021.Last chemotherapy was on02/08/2022. He had allergic reaction and subsequently FOLFOX chemotherapy was discontinued and continued on single agent nivolumab. Received total of 12 cycles and subsequently had disease progression. Received last dose of nivolumab on 12/27/2022 [...] was consistent with adenocarcinoma moderately differentiated overall Southlake score was 3+4=7with perineural invasion. Histopathology was [...] 0.6 cm HISTOLOGIC TYPE: Adenocarcinoma HISTOLOGIC GRADE (Southlake): Primary pattern is: Grade 3: single acini [...] 2.1 cm HISTOLOGIC TYPE: Adenocarcinoma HISTOLOGIC GRADE ([place]lake): Primary pattern is: Grade 3: single acini [...] 2 suspicious for metastasis. Interval History: He had a tooth infection last week and was seen by the dentist and treated with antibiotics. He completed the course of antibiotics with improvement in the pain. Overall clinically he is feeling better and stronger. He denies any fever, night sweats, headache, dizziness, blurred vision, difficulty in swallowing, stomach pain, nausea, vomiting, fever, night sweats, bleeding, bruising, hematuria, hematochezia. LABS/IMAGING: Results for orders placed or performed in visit on 03/21/23 COMPREHENSIVE METABOLIC PANEL Result Value Ref Range BUN 23 (H) 6 - 20 mg/dL Creatinine 1.7 (H) 0.6 - 1.2 mg/dL Estimated Glomerular Filtration Rate 40 (L) >=60 mL/min Sodium 143 135 - 146 mmol/L Potassium 4.3 3.5 - 5.1 mmol/L Chloride 107 98 - 107 mmol/L CO2 24 22 - 32 mmol/L Anion Gap 12 7 - 15 mmol/L Glucose 172 (H) 70 - 120 mg/dL Albumin 4.0 3.8 - 5.0 g/dL AST 13 10 - 50 U/L Alkaline Phosphatase 75 35 - 130 U/L Bilirubin, Total 0.4 <=1.2 mg/dL Calcium 9.7 8.4 - 10.2 mg/dL Protein 6.5 6.0 - 8.3 g/dL ALT 11 10 - 50 U/L CBC Result Value Ref Range WBC 4.27 4.00 - 10.80 K/uL RBC 3.53 4.50 - 5.25 M/uL HGB 9.7 (L) 14.0 - 16.8 g/dL HCT 32.5 (L) 40.0 - 48.4 % MCV 92.1 82.0 - 99.5 fL MCH 27.5 27.0 - 34.0 pg MCHC 29.8 32.0 - 36.0 g/dL RDW 18.7 11.5 - 15.5 % PLT 126 (L) 140 - 400 K/uL MPV 8.4 6.6 - 11.1 fL DIFFERENTIAL, AUTOMATED Result Value Ref Range WBC 4.27 4.00 - 10.80 K/uL Neutrophils % 52.2 40.0 - 75.0 % Lymphocytes % 30.7 18.0 - 42.0 % Monocytes % 12.9 (H) 1.0 - 11.0 % Eosinophils % 3.7 0.0 - 6.0 % Basophils % 0.5 0.0 - 2.0 % Absolute Neutrophils 2.23 1.80 - 7.70 K/uL Absolute Lymphocytes 1.31 1.00 - 4.80 K/ul Absolute Monocytes 0.55 0.00 - 1.10 K/uL Absolute Eosinophils 0.16 0.00 - 0.70 K/uL Absolute Basophils 0.02 0.00 - 0.20 K/uL All his blood counts are stable and in acceptable range. REVIEW OF SYSTEMS: General: No Fever, chills, [...] mouth 2 times a day. As needed [place]-3 Fatty Acids (FISH OIL) 1000 MG Capsule [...] appearing patient in no acute distress BP 147/83 (BP Site: Left Arm, BP Position: Sitting, BP Cuff Size: Regular) | Pulse 60 | Temp 36.7 C (98.1 F) (Tympanic) | Resp 16 | Wt 81.7 kg (180 lb 3.2 oz) | SpO2 95% | BMI 30.92 kg/m | BSA 1.92 m Vitals reviewed. HEENT: No oral or [...] including combination of Taxol and Cyramza. He would issues with tooth infection and was seen by the dentist and treated with antibiotics with improvement in the symptoms. Now he is feeling better and stronger. He denies any difficulty in swallowing. Blood counts are in acceptable range and overall they are stable. Discussed with the patient about diagnosis and reviewed all the available blood test result with him. PLAN: Continue current treatment including combination of Taxol and Cyramza. He will return to clinic forfollow-up in 3 weeks. The patient voiced understanding of all [...] in this encounter Nursing Notes * Venecia Green Tesfaye, [facility] - 03/21/2023 8:59 AM EDT Patient identifed by name and [...] it for you? ALREADY ACTIVE Filed Vitals: 03/21/23 0858 BP: 147/83 Pulse: 60 Resp: 16 Temp: 36.7 C (98.1 F) TempSrc: Tympanic SpO2: 95% Weight: 81.7 kg (180 lb 3.2 oz) Patient was instructed to not get up on the exam table/exam chair until directed and assisted by their provider; patient is to remain seated in the chair/ wheelchair/ exam table/ exam chair for fall prevention and safety reasons. Patient is aware to have assistance to step down off exam table/exam chair with personnel. Patient voiced full comprehension of instructions. Distress Score: 0 documented in this encounter Plan of Treatment Upcoming Encounters Date Type Specialty Care Team Description 03/22/2023 Hem/Onc Treatment Hematology Oncology [place], Chair 7 Hem Onc Scenery [address] [place] [address] 04/04/2023 Office Visit Urology Cm Rhodes MD 27 [facility] [place] [address] [place] [address] Health Maintenance Due Date Last Done [...] this encounter Medical Devices Implanted Type Area Research Contracts Supervisor Device Identifier Shelf Expiration Date Model / Serial / Lot Cath Power Port 6fr Clearvue - [id number] Implanted:Qty : 1 on 08/10/2021 by Alexander Rodriguez MD at [place] [facility] Left: Subclavian CR BARD : PERIPHERAL VASCULAR 08/21/2021 [id number] / / documented as of this encounter [...] and were consensually agreed upon. Care Teams Maintenance Machine Repairer Relationship Specialty Start Date End Date Hortencia Leal PA-C [address] [place], [place] [address] PCP - General Physician Dot Etcher 02/08/18 documented as of this encounter
--- OUTSIDE RECORDS SUMMARY | 2023-06-27 07:37 | External Medical Summary | Summary of Care ---
Author Name Unknown Organization [facility] Address [address] [facility] [place] [address] Phone [phone] Care Team Providers Care Agricultural Inspector Name Role Phone Hortencia Leal PA-C Primary Care Provid er Reason for Visit * Reason Onset Date Comments Other 03/28/2023 Encounter Details Date Type Department Care Team Description 03/28/2023 Telephone [facility]ematology/Oncology [facility] [address] Nik Melo MD 200 [place] [address] Other Allergies Active Allergy Reactions Severity Noted [...] times a day. As needed 0 Active [place]-3 Fatty Acids (FISH OIL) 1000 MG [...] encounter Miscellaneous Notes * Telephone Encounter - Felicity Zapata RN [...] that he went to the ER at [facility] this morning around 0800. He states [...] GI Scheduling: please get ER records from [facility] today and scan in. Thanks! * [...] [address] [place] [address] [place] [address] 04/11/2023 Laboratory Laboratory Enrique Castañeda [facility] 200 [place] [address] 04/11/2023 Office Visit Hematology Oncology Nik Melo MD 200 [place] [address] 04/12/2023 Hem/Onc Treatment Hematology Oncology [place], Chair 5 Hem Onc Scene 200 [facility] [place] [address] Health Maintenance Due Date Last Done Comments [...] this encounter Medical Devices Implanted Type Area Municipal Court Judge Device Identifier Shelf Expiration Date Model / Serial / Lot Cath Power Port 6fr Clearvue - [id number] Implanted:Qty : 1 on 08/10/2021 by Alexander Rodriguez MD at [facility] Left: Subclavian CR BARD : PERIPHERAL VASCULAR 08/21/2021 [id number] / / documented as of this encounter [...] and were consensually agreed upon. Care Teams Agricultural Inspector Relationship Specialty Start Date End Date Hortencia Leal PA-C [address] [facility] [place] [address] PCP - General Physician Delphi Developer 02/08/18 documented as of this encounter
--- OUTSIDE RECORDS SUMMARY | 2023-06-27 07:38 | External Medical Summary ---
Author Name Unknown Address Unknown Organization [id number]:LABORATORY [facility] - [address] [place] [address] Laboratory Report Ordering Provider Test Date Status SHAY CH 03/21/2023 08:27:03 Final Observation Date Value Abnormality Reference (Units ) Status TSH 03/21/2023 08:27:03 1.22 0.27-4.20 (uIU/mL) Final Performing Location LABORATORY [facility] - [address] [place] [address]
--- OUTSIDE RECORDS SUMMARY | 2023-06-27 07:38 | External Medical Summary ---
Author Name Unknown Address Unknown Organization K09:[facility] [place] [address] Laboratory Report Ordering Provider Test Date Status SHAY CH 03/21/2023 08:27:03 Final Observation Date Value Abnormality Reference (Units ) Status SYNC LEUKOCYTES IN BLOOD BY AUTOMATED COUNT 03/21/2023 08:27:03 4.27 4.00-10.80 (K/uL) Final Segs 03/21/2023 08:27:03 52.2 40.0-75.0 (%) Final Lymphs % 03/21/2023 08:27:03 30.7 18.0-42.0 (%) Final Monos 03/21/2023 08:27:03 12.9 Above high normal 1.0-11.0 (%) Final Eosinophils 03/21/2023 08:27:03 3.7 0.0-6.0 (%) Final Basos 03/21/2023 08:27:03 0.5 0.0-2.0 (%) Final Absolute Segs 03/21/2023 08:27:03 2.23 1.80-7.70 (K/uL) Final Lymphs, absolute 03/21/2023 08:27:03 1.31 1.00-4.80 (K/ul) Final Monos, Abs 03/21/2023 08:27:03 0.55 0.00-1.10 (K/uL) Final Eos, Abs 03/21/2023 08:27:03 0.16 0.00-0.70 (K/uL) Final Basos, Abs 03/21/2023 08:27:03 0.02 0.00-0.20 (K/uL) Final Performing Location [facility] [place] [address]
--- OUTSIDE RECORDS SUMMARY | 2023-06-27 07:38 | External Medical Summary | Summary of Care ---
Author Name Unknown Organization [facility] Address [address] [facility] [place] [address] Phone [phone] Care Team Providers Care City Detective Name Role Phone Hortencia Leal PA-C Primary Care Provid er Reason for Visit * Reason Comments Outpatient Testing Encounter Details Date Type Department Care Team Description 03/07/2023 Laboratory Laboratory [place] [address] [place] [address] [facility] Lab [facility] [address] [place] [address] 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 [...] as of this encounter (statuses as of 03/07/2023) Medications Medication Sig Dispensed Refills Start Date [...] times a day. 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 documented as of this encounter (statuses as of 03/07/2023) Immunizations Name Administration Dates Next Due COVID-19 [...] Encounters Date Type Specialty Care Team Description 03/08/2023 Hem/Onc Treatment Hematology Oncology [place], Chair [address] [place] [address] 03/14/2023 Laboratory Laboratory [place] [address] [place] [address] 03/15/2023 Hem/Onc Treatment Hematology Oncology [place], Chair 4 Hem [facility]c [facility] 200 [facility] [place] [address] 03/21/2023 Laboratory Laboratory [place] Lab [facility] 200 [facility] [place] [address] 03/21/2023 Office Visit Hematology Oncology Nik 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) Prostate cancer (HCC) Encounter for long-term (current) use of medications 03/07/2023 10:24 AM EDT Health Maintenance Due Date Last [...] this encounter Medical Devices Implanted Type Area Distributor Advertising Material Device Identifier Shelf Expiration Date Model / Serial / Lot Cath Power Port 6fr Clearvue - [id number] Implanted:Qty : 1 on 08/10/2021 by Alexander Rodriguez MD at [facility] Left: Subclavian CR BARD : PERIPHERAL VASCULAR 08/21/2021 [id number] / / documented as of this encounter Procedures Procedure Name Priority Date/Time Associated Diagnosis Comments DIFFERENTIAL, AUTOMATED STAT 03/07/2023 10:24 AM EDT 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) CBC WITH WBC DIFFERENTIAL STAT 03/07/2023 10:24 AM EDT 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) CBC STAT 03/07/2023 10:24 AM EDT 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) documented in this encounter Results * (ABNORMAL) DIFFERENTIAL, AUTOMATED (03/07/2023 10:24 AM EDT) WBC 4.56 4.00 - 10.80 K/uL 03/07/2023 10:32 AM EDT [facility] [place] 56-02 Neutrophils % 57.3 40.0 - 75.0 % 03/07/2023 10:32 AM EDT [facility] [place] 56-02 Lymphocytes % 27.2 18.0 - 42.0 % 03/07/2023 10:32 AM EDT [facility] [place] 56-02 Monocytes % 12.7(H) 1.0 - 11.0 % 03/07/2023 10:32 AM EDT [facility] [place] 56-02 Eosinophils % 2.4 0.0 - 6.0 % 03/07/2023 10:32 AM EDT [facility] [place] 56-02 Basophils % 0.4 0.0 - 2.0 % 03/07/2023 10:32 AM EDT [facility] [place] 56-02 Absolute Neutrophils 2.61 1.80 - 7.70 K/uL 03/07/2023 10:32 AM EDT [facility] 56-02 Absolute Lymphocytes 1.24 1.00 - 4.80 K/ul 03/07/2023 10:32 AM EDT [facility] 56-02 Absolute Monocytes 0.58 0.00 - 1.10 K/uL 03/07/2023 10:32 AM EDT [facility] 56 Absolute Eosinophils 0.11 0.00 - 0.70 K/uL 03/07/2023 10:32 AM EDT [facility] 56 Absolute Basophils 0.02 0.00 - 0.20 K/uL 03/07/2023 10:32 AM EDT [facility] Blood Venous blood specimen / Unknown Venipuncture / Unknown 03/07/2023 10:24 AM EDT 03/07/2023 10:24 AM EDT Nik Melo MD LAB BLOOD [facility] [address] [place] [address] * (ABNORMAL) CBC (03/07/2023 10:24 AM EDT) WBC 4.56 4.00 - 10.80 K/uL 03/07/2023 10:32 AM EDT [facility] RBC 3.58 4.50 - 5.25 M/uL 03/07/2023 10:32 AM T [facility] 56 HGB 9.9(L) 14.0 - 16.8 g/dL 03/07/2023 10:32 AM T [facility] HCT 33.4(L) 40.0 - 48.4 % 03/07/2023 10:32 AM EDT [facility] MCV 93.3 82.0 - 99.5 fL 03/07/2023 10:32 AM EDT [facility] 56 MCH 27.7 27.0 - 34.0 pg 03/07/2023 10:32 AM EDT [facility] MCHC 29.6 32.0 - 36.0 g/dL 03/07/2023 10:32 AM EDT [facility] 56 RDW 18.2 11.5 - 15.5 % 03/07/2023 10:32 AM EDT [facility] 56 PLT 127(L) 140 - 400 K/uL 03/07/2023 10:32 AM EDT [facility] 56 MPV 8.8 6.6 - 11.1 fL 03/07/2023 10:32 AM EDT [facility] 56 Blood Venous blood specimen / Unknown Venipuncture / Unknown 03/07/2023 10:24 AM EDT 03/07/2023 10:24 AM EDT Nik Melo MD LAB BLOOD [facility] [address] [place] [address] documented in this encounter Visit Diagnoses Diagnosis [...] and were consensually agreed upon. Care Teams City Detective Relationship Specialty Start Date End Date Hortencia Leal PA-C [address] [facility] [place] [address] PCP - General Physician Regroover 02/08/18 documented as of this encounter
--- OUTSIDE RECORDS SUMMARY | 2023-06-27 07:38 | External Medical Summary | Summary of Care ---
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) Procedures CT INJECTION, RAMUCIRUMAB CT PACLITAXEL INJECTION CT PALONOSETRON HCL Nik Melo MD 200 [facility] [place] [address] Anc Hem/Onc [place] [address] [place] [address] Referral ID Status Reason Start Date Expiration Date V isits Requested Visits Authorized [id number] Authorized 01/07/2023 09/21/2099 999 999 Encounter Details Date Type Department Care Team Description 03/08/2023 Hem/Onc Treatment Hematology/Oncology Treatment, [address] [place] [address] [place], Chair 4 Hem Onc [address] [place] [address] 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 documented as of this encounter (statuses as of 03/08/2023) Immunizations Name Administration Dates Next Due COVID-19 [...] Sign Reading Time Taken Comments Blood Pressure 133/78 03/08/2023 1:50 PM EDT Pulse 75 03/08/2023 1:50 PM EDT Temperature 36.5 C (97.7 F) 03/08/2023 1:50 PM ED T Respiratory Rate 20 03/08/2023 1:50 PM EDT Oxygen Saturation - - Inhaled Oxygen Concentration - - Weight 82.6 kg (182 lb 3.2 oz) 03/08/2023 1:50 P M EDT Height - - Body Mass Index 31.26 01/16/2023 10:35 AM EDT documented in this encounter Nursing Notes * Eboni Stevens RN - 03/08/2023 4:20 PM EDT Functional status at today's visit: [...] goals: Met: pt remained free from injury Cyramza and Taxol infusion is complete. Pt tolerated well. He has no further concerns at this time. * Eboni Stevens RN - 03/08/2023 2:04 PM EDT Ch 2. Pt arrived today for Cyramza and Taxol infusion. Pt had labs performed day prior, results WNL. Pt reports he continues with some fatigue. He reports his appetite is fair to good. He reports some mild constipation, reports 'tends to resolve itself'. He denies N/V/D. Pt denies neuropathy or pain. Chemo agents Cyramza, Taxol Appetite good Nausea/Vomiting denies Diarrhea denies Constipation denies Mucositis denies Fatigue mild, takes rest periods as needed Bleeding denies Infection Rash denies Numbness tingling denies Pain deniesf Radiation no ABN Labs WNL Alt in Tx: no Return in 1 wk Safety and Risk for Injury Patient will remain free from injury. Ensure appropriate safety devices are available. Provide and maintain safe environment. documented in this encounter Plan of Treatment Upcoming Encounters Date Type Specialty Care Team Description 03/14/2023 Laboratory Laboratory [place], Lab Scenery [address] [place], [place] [address] 03/15/2023 Hem/Onc Treatment Hematology Oncology [place], Chair 4 Hem Onc Scenery [address] [place], [place] [address] 03/21/2023 Laboratory Laboratory [place], Lab Scenery [address] [place], [place] [address] 03/21/2023 Office Visit Hematology Oncology Nik Melo MD [address] [place] [facility] [place] [address] 03/22/2023 Hem/Onc Treatment Hematology Oncology [place], Chair 7 Hem Onc Scenery [address] [place], [place] [address] 04/04/2023 Office Visit Urology RhodesCm MD 27 [facility] [address] [place] [address] Health Maintenance Due Date Last Done [...] this encounter Medical Devices Implanted Type Area Manager Membership Device Identifier Shelf Expiration Date Model / Serial / Lot Cath Power Port 6fr Clearvue - [id number] Implanted:Qty : 1 on 08/10/2021 by Alexander Rodriguez MD at [facility] Left: Subclavian CR BARD : PERIPHERAL VASCULAR 08/21/2021 [id number] / / documented as of this encounter [...] PRN Other, Hypersensitivity Reaction, Starting on Chandrika 03/08/23 at 1343, Until Sun03/09/23 at 1342, For 24 hours EPINEPHrine 1 MG/ML inj 0.3 mg 0.3 mg, Intramuscular, ONCE PRN Other, Hypersensitivity Reaction or Anaphylaxis, Starting on Chandrika 03/08/23 at 1343, Until Sun03/09/23 at 1342, For 24 hours hEParin 100 UNIT/ML Lock Flush inj 500 Units 500 Units (5 mL), IV Lock, PRN Other, IV Flush, Starting on Chandrika 03/08/23 at 1343, Until Sun03/09/23 at 1342, For 24 hours, Do not flush if lock, PICC, or central line not in place; IV infusing or unable to flush. Given 03/08/2023 3:58 PM EDT 500 Units Hydrocortisone Sod Suc (PF) (Solu-Cortef) inj 100 mg 100 mg, IV Push, ONCE PRN Other, Hypersensitivity Reaction, Starting on Chandrika 03/08/23 at 1343, Until Sun03/09/23 at 1342, For 24 hours NSS infusion 500 mL, Intravenous, at 50 mL/hr, CONTINUOUS, Starting on Sun03/08/23 at 1445, Until Sun03/09/23 at 0044 Start Infusion 03/08/2023 1:40 PM EDT 500 mL 50 mL/hr sodium chloride 0.9 % flush central line 10 mL 10 mL, IV Push, PRN Other, IV Flush, Starting on Sun03/08/23 at 1343, Until Sun03/09/23 at 1342, For 24 hours, Do not flush if lock, PICC, or central line not in place; IV infusing or unable to flush. Given 03/08/2023 3:58 PM EDT 10 mL Inactive Administered Medications - up to 3 most recent administrations Medication Order MAR Action Action Date Dose Rate Site Acetaminophen (Tylenol) tab 650 mg 650 mg, Oral, ONCE, On Sun03/08/23 at 1445, For 1 dose, Maximum of 4 grams (4000 mg) per day. Given 03/08/2023 1:55 PM EDT 650 mg Dexamethasone (Decadron) tab 12 mg 12 mg, Oral, ONCE, On Sun03/08/23 at 1415, For 1 dose Given 03/08/2023 1:55 PM EDT 12 mg diphenhydrAMINE (Benadryl) 25 mg in NSS 50 mL ivpb 25 mg, IV Piggyback, ONCE, 1 dose, On Sun03/08/23 at 1415 Start Infusion 03/08/2023 1:56 PM EDT 25 mg 200 mL/hr Famotidine (Pepcid) tab 20 mg 20 mg, Oral, ONCE, On Sun03/08/23 at 1445, For 1 dose Given 03/08/2023 1:55 PM EDT 20 mg PACLitaxel (Taxol) 158 mg in NSS 250 mL infusion 158 mg (rounded from 157.6 mg = 80 mg/m2 1.97 m2 Treatment Plan BSA from Recorded weight), IV Piggyback, at 250 mL/hr Administer over 60 Minutes, Administer through 0.22 micron low protein binding filter!, ONCE, 1 dose, On Sun03/08/23 at 1615 Start Infusion 03/08/2023 2:55 PM EDT 158 mg 250 mL/hr Palonosetron (Aloxi) inj SOLN 0.25 mg 0.25 mg, IV Push, ONCE, On Chandrika 03/08/23 at 1415, For 1 dose, Restricted per S antiemetic guidelines Given 03/08/2023 1:56 PM EDT 0.25 mg Ramucirumab (Cyramza) 700 mg in NSS 250 mL infusion 700 mg (rounded from 687.2 mg = 8 mg/kg 85.9 kg Treatment plan Recorded weight), IV Piggyback, ONCE, 1 dose, On Chandrika 03/08/23 at 1515, Administer over 30 Minutes, Administer though 0.22 micron low protein binding filter! Start Infusion 03/08/2023 2:18 PM EDT 700 mg 500 mL/hr documented in [...] and were consensually agreed upon. Care Teams Matchbook Assembler Relationship Specialty Start Date End Date Hortencia Leal PA-C [address] [facility], [place] [address] PCP - General Physician Plastic Technician 02/08/18 documented as of this encounter
--- OUTSIDE RECORDS SUMMARY | 2023-06-27 07:38 | External Medical Summary | Summary of Care ---
Author Name Unknown Organization [facility] Address [address] [facility] [place] [address] Phone [phone] Care Team Providers Care Traveling Sales Executive Name Role Phone Hortencia Leal PA-C Primary Care Provid er Encounter Details Date Type Department Care Team Description 02/27/2023 Result Scan Unspecified Department <No scans attached> Allergies Active Allergy Reactions Severity Noted Date Comments Amlodipine 11/02/2020 dizziness Codeine Sulfate Other (Please comment) 10/26/19 11 hyperactivity Hydrochlorothiazide 11/02/2020 hypercalcemia Oxaliplatin 02/09/2022 Infusion related reaction documented as of this encounter (statuses as of 02/28/2023) Medications Medication Sig Dispensed Refills Start Date [...] times a day. 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 [place] [address] 03/08/2023 Hem/Onc Treatment Hematology Oncology [place], Chair 4 Hem Onc Scenery 200 [facility] [place] [address] 03/14/2023 Laboratory Laboratory [place] Lab Scenery [address] [facility] [place] [address] 03/15/2023 Hem/Onc Treatment Hematology Oncology [place], Chair 4 Hem Onc Scenery [address] [facility] [place] [address] 03/21/2023 Laboratory Laboratory [place], Lab Scenery [address] [facility] [place] [address] 03/21/2023 Office Visit Hematology Oncology Nik Melo MD [address] [place] [address] 03/22/2023 Hem/Onc Treatment Hematology Oncology [place], Chair 7 Hem Onc Scenery 200 [facility] [place] [address] 04/04/2023 Office Visit Urology Cm Rhodes MD 27 [facility] [place] [address] [place] [id number] Health Maintenance Due Date Last Done Comments [...] this encounter Medical Devices Implanted Type Area Eligibility Technician Device Identifier Shelf Expiration Date Model / Serial / Lot Cath Power Port 6fr Clearvue - [id number] Implanted:Qty : 1 on 08/10/2021 by Alexander Rodriguez MD at [facility] Left: Subclavian CR BARD : PERIPHERAL VASCULAR 08/21/2021 [id number] / / documented as of this encounter Procedures Procedure Name Priority Date/Time Associated Diagnosis Comments OUTSIDE LAB RESULTS 02/27/2023 documented in this encounter Results * OUTSIDE LAB RESULTS (02/27/2023) 02/27/2023 No Physician Data Unknown LABORATORY documented in this encounter Advance Directives Latest [...] and were consensually agreed upon. Care Teams Traveling Sales Executive Relationship Specialty Start Date End Date Hortencia Leal PA-Harjeet [address] [facility] [address] PCP - General Physician Furniture Mover 02/08/18 documented as of this encounter
--- OUTSIDE RECORDS SUMMARY | 2023-06-27 07:38 | External Medical Summary | Summary of Care ---
Author Name Unknown Organization [facility] Address [address] [facility] [place] [address] Phone [phone] Care Team Providers Care Hops Farmworker Name Role Phone Hortencia Leal PA-C Primary Care Provid er Encounter Details Date Type Department Care Team Description 03/05/2023 Orders Only Hematology/Oncology [facility] [place] [address] [facility] [place] [address] Nik Melo MD [address] [facility] [place] [address] Allergies Active Allergy Reactions Severity Noted Date Comments Amlodipine 11/02/2020 dizziness Codeine Sulfate Other (Please comment) 10/26/19 11 hyperactivity Hydrochlorothiazide 11/02/2020 hypercalcemia Oxaliplatin 02/09/2022 Infusion related reaction documented as of this encounter (statuses as of 03/05/2023) Medications Medication Sig Dispensed Refills Start Date [...] times a day. 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 documented as of this encounter (statuses as of 03/05/2023) Immunizations Name Administration Dates Next Due COVID-19 [...] 03/07/2023 Laboratory Laboratory [place], Lab Scenery [facility] [place] [address] 03/08/2023 Hem/Onc Treatment Hematology Oncology [place], Chair 4 Hem Onc [facility] [place] [address] 03/14/2023 Laboratory Laboratory [place] Lab Scenery [address] [facility] [place] [address] 03/15/2023 Hem/Onc Treatment Hematology Oncology [place], Chair 4 Hem Onc Scenery [address] [facility] [place] [address] 03/21/2023 Laboratory Laboratory [place] Lab Scenery [address] [facility] [place] [address] 03/21/2023 Office Visit Hematology Oncology Nik Melo MD 200 [address] [place] [address] 03/22/2023 Hem/Onc Treatment Hematology Oncology [place], Chair 7 Hem Onc Scenery [address] [place] [address] 04/04/2023 Office Visit Urology Cm Rhodes MD [...] this encounter Medical Devices Implanted Type Area Desk Pen Set Assembler Device Identifier Shelf Expiration Date Model / Serial / Lot Cath Power Port 6fr Clearvue - [id number] Implanted:Qty : 1 on 08/10/2021 [place] Rodriguez [place] [facility] [place] Subclavian CR BARD : PERIPHERAL VASCULAR 08/21/2021 [id number] / / documented as of this encounter [...] and were consensually agreed upon. Care Teams Hops Farmworker Relationship Specialty Start Date End Date Hortencia Leal PA-C [address] [facility] [address] PCP - General Physician Melter Assistant 02/08/18 documented as of this encounter
--- OUTSIDE RECORDS SUMMARY | 2023-06-27 07:38 | External Medical Summary ---
Author Name Unknown Address Unknown Organization [id number]:[facility] [place] [address] Laboratory Report Ordering Provider Test Date Status SHAY CH 03/21/2023 08:27:03 Final Observation Date Value Abnormality Reference (Units ) Status WBC, Total 03/21/2023 08:27:03 4.27 4.00-10.8 0 (K/uL) Final RBC 03/21/2023 08:27:03 3.53 4.50-5.25 (M/uL) Final Hemoglobin 03/21/2023 08:27:03 9.7 Below low normal 14 .0-16.8 (g/dL) Final HCT 03/21/2023 08:27:03 32.5 Below low normal 40. 0-48.4 (%) Final MCV 03/21/2023 08:27:03 92.1 82.0-99.5 (fL) Final MCH 03/21/2023 08:27:03 27.5 27.0-34.0 (pg) Final MCHC 03/21/2023 08:27:03 29.8 32.0-36.0 (g/dL) Final RDW 03/21/2023 08:27:03 18.7 11.5-15.5 (%) Final Platelets 03/21/2023 08:27:03 126 Below low normal 140 -400 (K/uL) Final MPV 03/21/2023 08:27:03 8.4 6.6-11.1 ( fL) Final Performing Location [facility] [place] [address]
--- OUTSIDE RECORDS SUMMARY | 2023-06-27 07:38 | External Medical Summary ---
Author Name Unknown Address Unknown Organization [id number]:[facility] [place] [address] Laboratory Report Ordering Provider Test Date Status SHAY CH 03/07/2023 10:24:54 Final Observation Date Value Abnormality Reference (Units ) Status WBC, Total 03/07/2023 10:24:54 4.56 4.00-10.8 0 (K/uL) Final RBC 03/07/2023 10:24:54 3.58 4.50-5.25 (M/uL) Final Hemoglobin 03/07/2023 10:24:54 9.9 Below low normal 14 .0-16.8 (g/dL) Final HCT 03/07/2023 10:24:54 33.4 Below low normal 40. 0-48.4 (%) Final MCV 03/07/2023 10:24:54 93.3 82.0-99.5 (fL) Final MCH 03/07/2023 10:24:54 27.7 27.0-34.0 (pg) Final MCHC 03/07/2023 10:24:54 29.6 32.0-36.0 (g/dL) Final RDW 03/07/2023 10:24:54 18.2 11.5-15.5 (%) Final Platelets 03/07/2023 10:24:54 127 Below low normal 140 -400 (K/uL) Final MPV 03/07/2023 10:24:54 8.8 6.6-11.1 ( fL) Final Performing Location [facility] [place] [address]
--- OUTSIDE RECORDS SUMMARY | 2023-06-27 07:38 | External Medical Summary ---
Author Name Unknown Address Unknown Organization [id number]:[facility] [place] [address] Laboratory Report Ordering Provider Test Date Status SHAY CH 03/07/2023 10:24:54 Final Observation Date Value Abnormality Reference (Units ) Status SYNC LEUKOCYTES IN BLOOD BY AUTOMATED COUNT 03/07/2023 10:24:54 4.56 4.00-10.80 (K/uL) Final Segs 03/07/2023 10:24:54 57.3 40.0-75.0 (%) Final Lymphs % 03/07/2023 10:24:54 27.2 18.0-42.0 (%) Final Monos 03/07/2023 10:24:54 12.7 Above high normal 1.0-11.0 (%) Final Eosinophils 03/07/2023 10:24:54 2.4 0.0-6.0 (%) Final Basos 03/07/2023 10:24:54 0.4 0.0-2.0 (%) Final Absolute Segs 03/07/2023 10:24:54 2.61 1.80-7.70 (K/uL) Final Lymphs, absolute 03/07/2023 10:24:54 1.24 1.00-4.80 (K/ul) Final Monos, Abs 03/07/2023 10:24:54 0.58 0.00-1.10 (K/uL) Final Eos, Abs 03/07/2023 10:24:54 0.11 0.00-0.70 (K/uL) Final Basos, Abs 03/07/2023 10:24:54 0.02 0.00-0.20 (K/uL) Final Performing Location [facility] [place] [address]
--- OUTSIDE RECORDS SUMMARY | 2023-06-27 07:38 | External Medical Summary | Summary of Care ---
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) Procedures PET CT SKULL BASE TO MID-THIGH Nik Melo MD [address] [place] [address] Referral ID Status Reason Start Date Expiration Date V isits Requested Visits Authorized [id number] Authorized 12/04/[phone] Encounter Details Date Type Department Care Team Description 02/21/2023 Office Visit [facility]ology[facility] [address] [place] [address] Nik Melo MD 200 [place] [address] 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 documented as of this encounter (statuses as of 02/21/2023) Immunizations Name Administration Dates Next Due COVID-19 [...] Sign Reading Time Taken Comments Blood Pressure 137/82 02/21/2023 9:20 AM EDT Pulse 69 02/21/2023 9:20 AM EDT Temperature 36.9 C (98.5 F) 02/21/2023 9:20 AM ED T Respiratory Rate 16 02/21/2023 9:20 AM EDT Oxygen Saturation 94% 02/21/2023 9:20 AM EDT Inhaled Oxygen Concentration - - Weight 83.2 kg (183 lb 8 oz) 02/21/2023 9:20 AM EDT Height - - Body Mass Index 31.48 01/16/2023 10:35 AM EDT documented in this encounter Progress Notes * Nik Melo MD - 02/21/2023 9:29 AM EDT Outpatient Consult Note Data Source: Patient, Epic record. Data Source: Patient, Epic record. 02/21/2023 9:29 AM [place] [id number] 77 year old Patient Encounter: HEMATOLOGY/ONCOLOGY [facility] Cancer Diagnosis: -Metastatic esophageal cancer-laparoscopic biopsy of the peritoneal nodule which is positive for metastatic disease - Prostate cancer,pT2, Group IIA, Patoka 3+4 Current Treatment: On ramcirumab Previous Treatment: [...] was consistent with adenocarcinoma moderately differentiated overall Patoka score was 3+4=7with perineural invasion. Histopathology was [...] 0.6 cm HISTOLOGIC TYPE: Adenocarcinoma HISTOLOGIC GRADE (Patoka): Primary pattern is: Grade 3: single acini of variable size and separation, cribriform and papillarypatterns Secondary pattern is: Grade 3: single acini of variable size and separation, cribriform and papillary patterns Patoka Score (primary + secondary) = 5-6: Moderately [...] and fused epithelium, can show clear cells Patoka Score (primary + secondary) = 7: Moderately poorly differentiated Patoka Score (primary + secondary) = 8-10: Poorly [...] suspicious for metastasis. Interval History: He is feeling better and stronger now. He had mild nausea and episode of vomiting after the last dose of treatment. Denies any headache, dizziness, blurred vision, chest pain, palpitation, difficultyin swallowing, diarrhea, constipation, bleeding, bruising, fever, night sweats. LABS/IMAGING: He would blood test done today shows WBC count 5.07, hemoglobin 9.8 and platelet count 154. Creatinine is 1.9 which is stable the rest of the electrolytes and LFTs were within normal limit. REVIEW OF SYSTEMS: General: No Fever, chills, [...] mouth 2 times a day. As needed [place]-3 Fatty Acids (FISH OIL) 1000 MG Capsule [...] Infusion related reaction PHYSICAL EXAMINATION: General Appearance: Weak appearing patient in no acute distress BP 137/82 (BP Site: Left Arm, BP Position: Sitting, BP Cuff Size: Regular) | Pulse 69 | Temp 36.9 C (98.5 F) (Tympanic) | Resp 16 | Wt 83.2 kg (183 lb 8 oz) | SpO2 94% | BMI 31.48 kg/m | BSA 1.94 m Vitals reviewed. HEENT: No oral or [...] Biopsies consistent with adenocarcinoma and HER2/kristen expression is negative. Patient also had endoscopic ultrasound and [...] agreed to continue nivolumab only. He was recently admitted to the hospital with complaint of generalized weakness and chest pain and was found to have low hemoglobin. He had upper endoscopy done which shows recurrent disease and biopsy was positive for poorly differentiated adenocarcinoma. PET scan was done which revealed recurrentdisease with the lymphadenopathy and possible liver metastasis. Patient in has recurrent/metastaticdisease after achieving complete remission with the treatment. Currently he is receiving second-line chemotherapy including combination of Taxol and Cyramza. Overall clinically he is feeling better now with improvement in his appetite and energy level. Blood counts are in stable range. Discussed with the patient about diagnosis reviewed all the available bloodtest result with him. For now will continues current treatment. PLAN: Continue current treatment including combination of Taxol and Cyramza. He will return to clinic forfollow-up in 5 weeks. Encouraged him to use the antiemetics for nausea and vomiting. The patient voiced understanding of all of [...] this encounter Nursing Notes * Venecia Carlin, [facility] - 02/21/2023 9:20 AM EDT Patient identifed by name and [...] it for you? ALREADY ACTIVE Filed Vitals: 02/21/23 0920 BP: 137/82 Pulse: 69 Resp: 16 Temp: 36.9 C (98.5 F) TempSrc: Tympanic SpO2: 94% Weight: 83.2 kg (183 lb 8 oz) Patient was instructed to not get [...] Encounters Date Type Specialty Care Team Description 02/22/2023 Hem/Onc Treatment Hematology Oncology [place], Chair 3 Hem Onc Scenery [address] [place], [place] [address] 04/04/2023 Office Visit Urology Cm Rhodes MD [address] [facility] [address] [place] [address] Health Maintenance Due Date Last Done Comments Pneumococcal Vaccine: 65+ Years (1 - PCV) 12/29/1951 Depression Screening, Annual for Pts 12 and Over 1957 Hepatitis C Screening 12/29/1963 DTaP,Tdap,and Td Vaccines (1 - Tdap) 1964 Zoster Vaccines (1 of 2) 1964 COVID-19 Vaccine (4 - Booster for Moderna series) 11/26/2021 10/01/2021, 02/14/2021, 01/17/2021 Influenza Vaccine (FLU shot) (Season Ended) 2023 07/30/2021, 08/21/2018, 07/14/2017, Additional history exists COLONOSCOPY-EVERY 3 YRS AGES 18-100 07/15/2024 07/15/2021, 07/15/2021, 04/12/2018, Additional history exists GARDASIL-HPV IMMUNIZATION SERIES Aged Out No longer eligible based on patient's age to complete this topic Hepatitis B Aged Out No longer eligi ble based on patient's age to complete this topic MENINGOCOCCAL (MENACTRA/MENVEO) Aged Out No longer eligible based on patient's age to complete this topic documented as of this encounter Medical Devices Implanted Type Area Cornice Upholsterer Device Identifier Shelf Expiration Date Model / Serial / Lot Cath Power Port 6fr Clearvue - [id number] Implanted:Qty : 1 on 08/10/2021 by Alexander Rodriguez MD at [facility] Left: Subclavian CR BARD : PERIPHERAL VASCULAR 08/21/2021 [id number] / / documented as of this encounter [...] and were consensually agreed upon. Care Teams Brim Rounder Relationship Specialty Start Date End Date Hortencia Leal PA-C [address] [facility] [id number] PCP - General Physician Carpenter Assembler 02/08/18 documented as of this encounter
--- OUTSIDE RECORDS SUMMARY | 2023-06-27 07:38 | External Medical Summary ---
Author Name Unknown Address Unknown Organization K09:[facility] [place] [address] Laboratory Report Ordering Provider Test Date Status SHAY CH 03/21/2023 08:27:03 Final Observation Date Value Abnormality Reference (Units ) Status BUN 03/21/2023 08:27:03 23 Above high normal 6-20 (mg/dL) Final Creatinine 03/21/2023 08:27:03 1.7 Above high normal 0.6-1.2 (mg/dL) Final Glomerular filtration rate/1.73 sq M.predicted [Volume Rate/Area] in Serum, Plasma or Blood by Creatinine-based formula (CKD-EPI) 03/21/2023 08:27:03 40 Below low normal >=60 (mL/min) Final Performing Location [facility] [place] [address]
--- OUTSIDE RECORDS SUMMARY | 2023-06-27 07:38 | External Medical Summary ---
Author Name Unknown Address Unknown Organization K01:[facility] [place] - [address] [place] [address] Laboratory Report Ordering Provider Test Date Status SHAY CH 03/07/2023 10:24:54 Final Observation Date Value Abnormality Reference (Units ) Status TSH 03/07/2023 10:24:54 1.16 0.27-4.20 (uIU/mL) Final Performing Location [facility] [place] - [address] [place] [address]
--- OUTSIDE RECORDS SUMMARY | 2023-06-27 07:38 | External Medical Summary | Summary of Care ---
Author Name Unknown Organization [facility] Address [address] [facility] [place] [address] Phone [phone] Care Team Providers Care Food Checkers And Cashiers Supervisor Name Role Phone Hortencia Leal PA-C Primary Care Provid er Reason for Visit * Reason Onset Date Comments FYI 03/14/2023 Encounter Details Date Type Department Care Team Description 03/14/2023 Telephone Hematology/Oncology [facility] [place] [address] [place] [address] Services, Scheduling [address] [place] [address] Allergies Active Allergy Reactions Severity Noted Date Comments Amlodipine 11/02/2020 dizziness Codeine Sulfate Other (Please comment) 10/26/19 11 hyperactivity Hydrochlorothiazide 11/02/2020 hypercalcemia Oxaliplatin 02/09/2022 Infusion related reaction documented as of this encounter (statuses as of 03/14/2023) Medications Medication Sig Dispensed Refills Start Date [...] times a day. 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 documented in this encounter Plan of Treatment Upcoming Encounters Date Type Specialty Care Team Description 03/21/2023 Laboratory Laboratory [place] Lab [facility] [address] [facility] [place] [address] 03/21/2023 Office Visit Hematology Oncology Nik Melo MD 200 [facility] [place] [address] 03/22/2023 Hem/Onc Treatment Hematology Oncology [place], Chair 7 Hem Onc Scene [address] [place] [address] 04/04/2023 Office Visit Urology Cm Rhodes MD 27 [facility] [place] [address] [place] [address] Health Maintenance Due Date Last Done Comments [...] this encounter Medical Devices Implanted Type Area Job Spotter Device Identifier Shelf Expiration Date Model / Serial / Lot Cath Power Port 6fr Clearvue - [id number] Implanted:Qty : 1 on 08/10/2021 by Alexander Rodriguez MD at OR [facility] [place] Left: Subclavian CR BARD : PERIPHERAL VASCULAR 08/21/2021 [id number] / / documented as of this encounter [...] were consensually agreed upon. Care Teams Food Checkers And Cashiers Supervisor Relationship Specialty Start Date End Date Hortencia Leal PA-C [address] [facility] [place] [address] PCP - General Physician Alcohol Law Enforcement Agent 02/08/18 documented as of this encounter
--- OUTSIDE RECORDS SUMMARY | 2023-06-27 07:38 | External Medical Summary ---
Author Name Unknown Address Unknown Organization K09:[facility] [place] [address] Laboratory Report Ordering Provider Test Date Status SHAY CH 03/07/2023 10:24:54 Final Observation Date Value Abnormality Reference (Units ) Status BUN 03/07/2023 10:24:54 18 6-20 (mg/dL) Final Creatinine 03/07/2023 10:24:54 1.8 Above high normal 0.6-1.2 (mg/dL) Final Glomerular filtration rate/1.73 sq M.predicted [Volume Rate/Area] in Serum, Plasma or Blood by Creatinine-based formula (CKD-EPI) 03/07/2023 10:24:54 39 Below low normal >=60 (mL/min) Final Performing Location [facility] [place] [place] [address]
--- OUTSIDE RECORDS SUMMARY | 2023-06-27 07:38 | External Medical Summary | Summary of Care ---
Author Name Unknown Organization [facility] Address [address] [facility] [place] [address] Phone [phone] Care Team Providers Care Fiber Heel Piece Shaper Name Role Phone Hortencia Leal PA-C Primary Care Provid er Reason for Visit * Reason Onset Date Comments FYI 03/14/2023 Encounter Details Date Type Department Care Team Description 03/14/2023 Telephone Hematology/Oncology [facility] [place] [address] [place] [address] Services, Scheduling [address] [place] [address] Allergies Active Allergy Reactions Severity Noted Date Comments Amlodipine 11/02/2020 dizziness Codeine Sulfate Other (Please comment) 10/26/19 11 hyperactivity Hydrochlorothiazide 11/02/2020 hypercalcemia Oxaliplatin 02/09/2022 Infusion related reaction documented as of this encounter (statuses as of 03/16/2023) Medications Medication Sig Dispensed Refills Start Date [...] times a day. 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 He states that he has a dental infection. He started cephalexin Sunday afternoon, instructed to take this for 1 week. He does not currently have a follow up scheduled with his dentist as this will depend on how he feels after the antibiotics. Advised patient that I would update Dr Melo. Patient is scheduled 03/21 for labs and to see Dr Melo, treatment 03/22. Advised him to keep appts for labs/ Dr Melo as scheduled, may end up moving treatment depending on how he is doing next week. Patient verbalized understanding. Dr Melo: GREG * Telephone Encounter - TANI Wynn - 03/14/2023 12:46 PM EDT Forwarding to Hem/Onc nursing as GREG * Telephone Encounter - TANI Dickens - 03/14/2023 7:59 AM EDT Pt called to cancel lab & treatment appointments for today and tomorrow per pt's dentist. documented in this encounter Plan of Treatment Upcoming Encounters Date Type Specialty Care Team Description 03/21/2023 Laboratory Laboratory [place], Lab Scenery [address] [place] [address] 03/21/2023 Office Visit Hematology Oncology Nik Melo MD 200 [place] [address] 03/22/2023 Hem/Onc Treatment Hematology Oncology [place], Chair 7 Hem Onc Scenery [address] [place] [address] 04/04/2023 Office Visit Urology Cm Rhodes MD 27 [facility] [address] [place] [address] Health Maintenance Due Date Last Done Comments [...] this encounter Medical Devices Implanted Type Area Auger Press Operator Device Identifier Shelf Expiration Date Model / Serial / Lot Cath Power Port 6fr Clearvue - [id number] Implanted:Qty : 1 on 08/10/2021 by Alexander Rodriguez MD at [place] [facility] [place] Left: Subclavian CR BARD : PERIPHERAL VASCULAR 08/21/2021 [id number] / / documented as of this encounter [...] and were consensually agreed upon. Care Teams Fiber Heel Piece Shaper Relationship Specialty Start Date End Date Hortencia Leal PA-C [address] [facility] [place] [address] PCP - General Physician Stockroom Supervisor 02/08/18 documented as of this encounter
--- OUTSIDE RECORDS SUMMARY | 2023-06-27 07:38 | External Medical Summary | Summary of Care ---
Author Name Unknown Organization [facility] Address [address] [facility] [place] [address] Phone [phone] Care Team Providers Care Search Strategist Name Role Phone Hortencia Leal PA-C Primary Care Provid er Reason for Visit * Reason Onset Date Comments FYI 03/14/2023 Encounter Details Date Type Department Care Team Description 03/14/2023 Telephone Hematology/Oncology [facility] [place] [address] [place] [address] Services, Scheduling [address] [place] [address] Allergies Active Allergy Reactions Severity Noted Date [...] times a day. As needed 0 Active Cardinal-3 Fatty Acids (FISH OIL) 1000 MG Capsule [...] Miscellaneous Notes * Telephone Encounter - TANI Dickens - 03/14/2023 7:59 AM EDT Pt called to cancel lab & treatment appointments for today and tomorrow per pt's dentist. documented in this encounter Plan of Treatment Upcoming Encounters Date Type Specialty Care Team Description 03/21/2023 Laboratory Laboratory [address] [place] [address] 03/21/2023 Office Visit Hematology Oncology Nik Melo MD 200 [facility] [place] [address] 03/22/2023 Hem/Onc Treatment Hematology Oncology [place], Chair 7 Hem Onc [address] [place] [address] 04/04/2023 Office Visit Urology Cm Rhodes MD 27 [facility] [address] [place] [address] Health Maintenance Due [...] this encounter Medical Devices Implanted Type Area Concrete Truck Driver Device Identifier Shelf Expiration Date Model / Serial / Lot Cath Power Port 6fr Clearvue - [id number] Implanted:Qty : 1 on 08/10/2021 by Alexander Rodriguez MD at [place] [facility] [place] Left: Subclavian CR BARD : PERIPHERAL VASCULAR 08/21/2021 [id number] / / documented as of this encounter [...] and were consensually agreed upon. Care Teams Search Strategist Relationship Specialty Start Date End Date Hortencia Leal PA-C [address] [facility], [place] [id number] PCP - General Physician Communications Technician 02/08/18 documented as of this encounter
--- OUTSIDE RECORDS SUMMARY | 2023-06-27 07:38 | External Medical Summary | Summary of Care ---
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) Procedures PET CT SKULL BASE TO MID-THIGH Nik Melo MD 200 [place] [address] Referral ID Status Reason Start Date Expiration Date V isits Requested Visits Authorized [id number] Authorized 12/04/2022 999 999 Encounter Details Date Type Department Care Team Description 02/22/2023 Hem/Onc Treatment Hematology/Oncology Treatment, [address] [place] [id number] Maddy, Chair 3 Hem Onc [address] [place] [address] 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 documented as of this encounter (statuses as of 02/22/2023) Immunizations Name Administration Dates Next Due COVID-19 [...] Sign Reading Time Taken Comments Blood Pressure 136/87 02/22/2023 11:25 AM EDT Pulse 81 02/22/2023 11:25 AM EDT Temperature 36.3 C (97.4 F) 02/22/2023 11:25 AM E DT Respiratory Rate 18 02/22/2023 11:25 AM EDT Oxygen Saturation 96% 02/22/2023 11:25 AM EDT Inhaled Oxygen Concentration - - Weight 83.1 kg (183 lb 3.2 oz) 02/22/2023 11:25 AM EDT Height - - Body Mass Index 31.43 01/16/2023 10:35 AM EDT documented in this encounter Nursing Notes * Andra Solitario RN - 02/22/2023 1:49 PM EDT Functional status at today's visit: [...] treatment. Goals: Patient will remain free from injury Possible barriers to meeting goals: ambulation with IV pole, benadryl may cause drowsiness Stability of the patient: Moderately stable - low risk of patient condition declining or worsening Summary regarding today's goals: Met: Pt remained free of injury during treatment. Patient tolerated treatment well and was discharged in stable condition. * Eboni Stevens RN - 02/22/2023 12:10 PM EDT Ch 5. Pt arrived today for Cyramza and Taxol infusions. Pt had labs performed day prior, results WNL. Pt reports some fatigue, reports chronic, takes rest periods and naps as needed. He reports good appetite. Pt denies N/V. He reports some mild constipation, he takes PRN bowel meds, but should likely take more to decrease constipation. He denies pain or neuropathy. Chemo agents Cyramza, Taxol Appetite good Nausea/Vomiting denies Diarrhea denies Constipation mild, takes PRN meds Mucositis denies Fatigue chronic mild fatigue, takes naps and rest periods Bleeding denies Infection denies Rash denies Numbness tingling denies Pain denies Radiation no ABN Labs WNL Alt in Tx: no Return in 2 wk Safety and Risk for Injury Patient will remain free from injury. Ensure appropriate safety devices are available. Provide and maintain safe environment. documented in this encounter Plan of Treatment Upcoming Encounters Date Type Specialty Care Team Description 03/07/2023 Laboratory Laboratory [place], Lab Scenery [address] [place] [address] 03/08/2023 Hem/Onc Treatment Hematology Oncology [place], Chair 4 Hem Onc Scenery [address] [place] [address] 03/14/2023 Laboratory Laboratory [place], Lab Scenery [address] [place] [address] 03/15/2023 Hem/Onc Treatment Hematology Oncology [place], Chair 4 Hem Onc Scenery [address] [place] [address] 03/21/2023 Laboratory Laboratory [place], Lab Scenery [address] [facility] [place] [address] 03/21/2023 Office Visit Hematology Oncology LorieNik hilliard MD 200 [place] [address] 03/22/2023 Hem/Onc Treatment Hematology Oncology [place], Chair 7 Hem Onc Scenery [address] [place] [address] 04/04/2023 Office Visit Urology Cm Rhodes MD 27 [facility] [place] [address] [place] [address] Health Maintenance [...] this encounter Medical Devices Implanted Type Area Scrap Charger Device Identifier Shelf Expiration Date Model / Serial / Lot Cath Power Port 6fr Clearvue - [id number] Implanted:Qty : 1 on 08/10/2021 by Alexander Rodriguez MD at [facility] Left: Subclavian CR BARD : PERIPHERAL VASCULAR 08/21/2021 [id number] / / documented as of this encounter [...] ONCE PRN Other, Hypersensitivity Reaction, Starting on Sun02/22/23 at 1116, Until Sun02/23/23 at 1115, For 24 hours EPINEPHrine 1 MG/ML inj 0.3 mg 0.3 mg, Intramuscular, ONCE PRN Other, Hypersensitivity Reaction or Anaphylaxis, Starting on Chandrika 02/22/23 at 1116, Until Sun02/23/23 at 1115, For 24 hours hEParin 100 UNIT/ML Lock Flush inj 500 Units 500 Units (5 mL), IV Lock, PRN Other, IV Flush, Starting on Chandrika 02/22/23 at 1116, Until Sun02/23/23 at 1115, For 24 hours, Do not flush if lock, PICC, or central line not in place; IV infusing or unable to flush. Given 02/22/2023 1:41 PM EDT 500 Units Hydrocortisone Sod Suc (PF) (Solu-Cortef) inj 100 mg 100 mg, IV Push, ONCE PRN Other, Hypersensitivity Reaction, Starting on Sun02/22/23 at 1116, Until Sun02/23/23 at 1115, For 24 hours NSS infusion 500 mL, Intravenous, at 50 mL/hr, CONTINUOUS, Starting on Sun02/22/23 at 1230, Until Sun02/22/23 at 2229 Start Infusion 02/22/2023 11:35 AM EDT 500 mL 50 mL/hr sodium chloride 0.9 % flush central line 10 mL 10 mL, IV Push, PRN Other, IV Flush, Starting on Sun02/22/23 at 1116, Until Sun02/23/23 at 1115, For 24 hours, Do not flush if lock, PICC, or central line not in place; IV infusing or unable to flush. Given 02/22/2023 1:41 PM EDT 10 mL Inactive Administered Medications - up to 3 most recent administrations Medication Order MAR Action Action Date Dose Rate Site Acetaminophen (Tylenol) tab 650 mg 650 mg, Oral, ONCE, On Chandrika 02/22/23 at 1130, For 1 dose, Maximum of 4 grams (4000 mg) per day. Given 02/22/2023 11:42 AM EDT 650 mg Dexamethasone (Decadron) tab 12 mg 12 mg, Oral, ONCE, On Chandrika 02/22/23 at 1130, For 1 dose Given 02/22/2023 11:42 AM EDT 12 mg diphenhydrAMINE (Benadryl) 25 mg in NSS 50 mL ivpb 25 mg, IV Piggyback, ONCE, 1 dose, On Sun02/22/23 at 1200 Start Infusion 02/22/2023 11:43 AM EDT 25 mg 200 mL/hr Famotidine (Pepcid) tab 20 mg 20 mg, Oral, ONCE, On Sun02/22/23 at 1130, For 1 dose Given 02/22/2023 11:42 AM EDT 20 mg PACLitaxel (Taxol) 158 mg in NSS 250 mL infusion 158 mg (rounded from 157.6 mg = 80 mg/m2 1.97 m2 Treatment Plan BSA from Recorded weight), IV Piggyback, at 250 mL/hr Administer over 60 Minutes, Administer through 0.22 micron low protein binding filter!, ONCE, 1 dose, On Chandrika 02/22/23 at 1400 Start Infusion 02/22/2023 12:36 PM EDT 158 mg 250 mL/hr Palonosetron (Aloxi) inj SOLN 0.25 mg 0.25 mg, IV Push, ONCE, On Chandrika 02/22/23 at 1130, For 1 dose, Restricted per S antiemetic guidelines Given 02/22/2023 11:43 AM EDT 0.25 mg Ramucirumab (Cyramza) 700 mg in NSS 250 mL infusion 700 mg (rounded from 687.2 mg = 8 mg/kg 85.9 kg Treatment plan Recorded weight), IV Piggyback, ONCE, 1 dose, On Chandrika 02/22/23 at 1145, Administer over 30 Minutes, Administer though 0.22 micron low protein binding filter! Start Infusion 02/22/2023 11:59 AM EDT 700 mg 500 mL/hr documented [...] and were consensually agreed upon. Care Teams Licensing Specialist Relationship Specialty Start Date End Date Hortencia Leal PA-C [address] [place] [address] PCP - General Physician Paddle Dyeing Machine Operator 02/08/18 documented as of this encounter
--- OUTSIDE RECORDS SUMMARY | 2023-06-27 07:38 | External Medical Summary | Summary of Care ---
Author Name Unknown Organization [facility] Address [address] [facility] [place] [address] Phone [phone] Care Team Providers Care Piece Marker Small Arms Name Role Phone Hortencia Leal PA-C Primary Care Provid er Reason for Visit * Reason Onset Date Comments FYI 03/14/2023 Encounter Details Date Type Department Care Team Description 03/14/2023 Telephone Hematology/Oncology [facility] Maddy [place] [address] [place] [address] Services, Scheduling [address] [place] [address] Allergies Active Allergy Reactions Severity Noted Date Comments Amlodipine 11/02/2020 dizziness Codeine Sulfate Other (Please comment) 10/26/19 11 hyperactivity Hydrochlorothiazide 11/02/2020 hypercalcemia Oxaliplatin 02/09/2022 Infusion related reaction documented as of this encounter (statuses as of 03/15/2023) Medications Medication Sig Dispensed Refills Start Date [...] times a day. 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 documented as of this encounter (statuses as of 03/15/2023) Immunizations Name Administration Dates Next Due COVID-19 [...] Team Description 03/21/2023 Laboratory Laboratory [place]addy Lab [facility] [address] [facility] [place] [address] 03/21/2023 Office Visit Hematology Oncology Nik Melo MD 200 [facility] [place] [address] 03/22/2023 Hem/Onc Treatment Hematology Oncology [place], Chair 7 Hem Onc [place] [address] [place] [address] 04/04/2023 Office Visit Urology Cm Rhodes MD 27 [facility] [place] [address] [place] [address] Health Maintenance Due Date Last Done Comments [...] this encounter Medical Devices Implanted Type Area Family Resource Coordinator Device Identifier Shelf Expiration Date Model / Serial / Lot Cath Power Port 6fr Clearvue - [id number] Implanted:Qty : 1 on 08/10/2021 by Alexander Rodriguez MD [place] [facility] [place]: Subclavian CR BARD : PERIPHERAL VASCULAR 08/21/2021 [id number] / / documented as of this encounter [...] and were consensually agreed upon. Care Teams Piece Marker Small Arms Relationship Specialty Start Date End Date Hortencia Leal PA-C [address] [facility] [place] [address] PCP - General Physician Insurance Collector 02/08/18 documented as of this encounter
--- OUTSIDE RECORDS SUMMARY | 2023-06-27 07:38 | External Medical Summary | Summary of Care ---
Author Name Unknown Organization [facility] Address 100 [facility] [place] [address] Phone [phone] Care Team Providers Care Ammunition Storekeeper Name Role Phone Hortencia Leal PA-C Primary Care Provid er Reason for Visit * Reason Comments Outpatient Testing Encounter Details Date Type Department Care Team Description 03/21/2023 Laboratory Laboratory [place] [address] [place] [address] [facility] Lab [facility] [address] [place] [address] 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 [...] times a day. 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) 03/21/2023 8:27 AM EDT TSH WITH FREE T4 IF INDICATED Lab STAT Encounter for adjustment and management of vascular access device 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) Prostate cancer (HCC) Encounter for long-term (current) use of medications 03/21/2023 8:27 AM EDT Health Maintenance Due Date Last [...] encounter Medical Devices Implanted Type Area Project Administrative Assistant Device Identifier Shelf Expiration Date Model / Serial / Lot Cath Power Port 6fr Clearvue - [id number] Implanted:Qty : 1 on 08/10/2021 by Alexander Rodriguez MD at [facility] Left: Subclavian CR BARD : PERIPHERAL VASCULAR 08/21/2021 [id number] / / documented as of this encounter Procedures Procedure Name Priority Date/Time Associated Diagnosis Comments DIFFERENTIAL, AUTOMATED STAT 03/21/2023 8:27 AM EDT 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) CBC WITH WBC DIFFERENTIAL STAT 03/21/2023 8:27 AM EDT 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) CBC STAT 03/21/2023 8:27 AM EDT 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) documented in this encounter Results * (ABNORMAL) DIFFERENTIAL, AUTOMATED (03/21/2023 8:27 AM EDT) WBC 4.27 4.00 - 10.80 K/uL 03/21/2023 8:33 AM EDT [facility] 56-02 Neutrophils % 52.2 40.0 - 75.0 % 03/21/2023 8:33 AM EDT [facility] 56-02 Lymphocytes % 30.7 18.0 - 42.0 % 03/21/2023 8:33 AM EDT [facility] 56-02 Monocytes % 12.9(H) 1.0 - 11.0 % 03/21/2023 8:33 AM EDT [facility] 56-02 Eosinophils % 3.7 0.0 - 6.0 % 03/21/2023 8:33 AM EDT [facility] 56-02 Basophils % 0.5 0.0 - 2.0 % 03/21/2023 8:33 AM EDT [facility] 56-02 Absolute Neutrophils 2.23 1.80 - 7.70 K/uL 03/21/2023 8:33 AM EDT [facility] 56-02 Absolute Lymphocytes 1.31 1.00 - 4.80 K/ul 03/21/2023 8:33 AM EDT [facility] 56-02 Absolute Monocytes 0.55 0.00 - 1.10 K/uL 03/21/2023 8:33 AM EDT [facility] 56-02 Absolute Eosinophils 0.16 0.00 - 0.70 K/uL 03/21/2023 8:33 AM EDT [facility] 56-02 Absolute Basophils 0.02 0.00 - 0.20 K/uL 03/21/2023 8:33 AM EDT [facility] 56-02 Blood Venous blood specimen / Unknown Venipuncture / Unknown 03/21/2023 8:27 AM EDT 03/21/2023 8:27 AM EDT Nik Melo MD LAB BLOOD ORDERA BLES [facility] 56-02 [address] [place] [address] * (ABNORMAL) CBC (03/21/2023 8:27 AM EDT) WBC 4.27 4.00 - 10.80 K/uL 03/21/2023 8:33 AM EDT [facility] 56 RBC 3.53 4.50 - 5.25 M/uL 03/21/2023 8:33 AM EDT [facility] 56 HGB 9.7(L) 14.0 - 16.8 g/dL 03/21/2023 8:33 AM EDT [facility] 56 HCT 32.5(L) 40.0 - 48.4 % 03/21/2023 8:33 AM EDT [facility] 56 MCV 92.1 82.0 - 99.5 fL 03/21/2023 8:33 AM EDT [facility] 56 MCH 27.5 27.0 - 34.0 pg 03/21/2023 8:33 AM EDT [facility] 56 MCHC 29.8 32.0 - 36.0 g/dL 03/21/2023 8:33 AM EDT [facility] 56 RDW 18.7 11.5 - 15.5 % 03/21/2023 8:33 AM EDT [facility] 56 PLT 126(L) 140 - 400 K/uL 03/21/2023 8:33 AM EDT [facility] 56 MPV 8.4 6.6 - 11.1 fL 03/21/2023 8:33 AM EDT [facility] 56 Blood Venous blood specimen / Unknown Venipuncture / Unknown 03/21/2023 8:27 AM EDT 03/21/2023 8:27 AM EDT Nik Melo MD LAB BLOOD ORDERA BLES [facility] [address] [place] [address] documented in this encounter Visit Diagnoses Diagnosis [...] and were consensually agreed upon. Care Teams Ammunition Storekeeper Relationship Specialty Start Date End Date Hortencia Leal PA-C [address] [facility] [place] [address] PCP - General Physician Chief Investigator 02/08/18 documented as of this encounter
--- OUTSIDE RECORDS SUMMARY | 2023-06-27 07:39 | External Medical Summary | Summary of Care ---
Author Name Unknown Organization [facility] Address 100 [facility] [place] [address] Phone [phone] Care Team Providers Care Administrative Support Clerk Name Role Phone Hortencia Leal PA-C Primary Care Provid er Encounter Details Date Type Department Care Team Description 01/16/2023 Orders Only Hematology/Oncology [facility] [place] 200 [facility] [place] [address] Nik Melo MD 200 [facility] [place] [address] Allergies Active Allergy Reactions Severity Noted Date Comments Amlodipine 11/02/2020 dizziness Codeine Sulfate Other (Please comment) 10/26/19 11 hyperactivity Hydrochlorothiazide 11/02/2020 hypercalcemia Oxaliplatin 02/09/2022 Infusion related reaction documented as of this encounter (statuses as of 02/08/2023) Medications Medication Sig Dispensed Refills Start Date [...] times a day. 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 documented as of this encounter (statuses as of 02/08/2023) Immunizations Name Administration Dates Next Due COVID-19 [...] Encounters Date Type Specialty Care Team Description 02/09/2023 Hem/Onc Treatment Hematology Oncology [place], Chair 2 Hem Onc [facility] 200 [place] [address] 02/21/2023 Laboratory Laboratory [facility] Lab [facility] 200 [place] [address] 02/21/2023 Office Visit Hematology Oncology Nik Melo MD 200 [place] [address] 02/22/2023 Hem/Onc Treatment Hematology Oncology [place], Chair 3 Hem Onc Scenery [address] [facility] [address] 04/04/2023 Office Visit Urology Cm Rhodes MD [...] this encounter Medical Devices Implanted Type Area Landfill Gas Technician Device Identifier Shelf Expiration Date Model / Serial / Lot Cath Power Port 6fr Clearvue - [id number] Implanted:Qty : 1 on 08/10/2021 by Alexander Rodriguez MD at [place] [facility] [place] Left: Subclavian CR BARD : PERIPHERAL VASCULAR 08/21/2021 [id number] / / documented as of this encounter [...] and were consensually agreed upon. Care Teams Administrative Support Clerk Relationship Specialty Start Date End Date [facility]ortencia Leal PA-[facility] [address] [facility] [address] PCP - General Physician Material Checker 02/08/18 documented as of this encounter
--- OUTSIDE RECORDS SUMMARY | 2023-06-27 07:39 | External Medical Summary ---
Author Name Unknown Address Unknown Organization K09:[facility] [place] [address] Laboratory Report Ordering Provider Test Date Status SHAY CH 02/21/2023 08:48:58 Final Observation Date Value Abnormality Reference (Units ) Status BUN 02/21/2023 08:48:58 24 Above high normal 6-20 (mg/dL) Final Creatinine 02/21/2023 08:48:58 1.9 Above high normal 0.6-1.2 (mg/dL) Final Glomerular filtration rate/1.73 sq M.predicted [Volume Rate/Area] in Serum, Plasma or Blood by Creatinine-based formula (CKD-EPI) 02/21/2023 08:48:58 36 Below low normal >=60 (mL/min) Final Performing Location [facility] [place] [place] [address]
--- OUTSIDE RECORDS SUMMARY | 2023-06-27 07:39 | External Medical Summary | Summary of Care ---
Author Name Unknown Organization [facility] Address 100 [facility] [place] [address] Phone [phone] Care Team Providers Care Insurance Follow Up Specialist Name Role Phone Hortencia Leal PA-C Primary Care Provid er Reason for Visit * Reason Comments Outpatient Testing Encounter Details Date Type Department Care Team Description 02/21/2023 Laboratory Laboratory [place] [address] [place] [address] [facility] [address] [place] [address] 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 [...] times a day. 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) 02/21/2023 8:48 AM EDT COMPREHENSIVE METABOLIC PANEL Lab STAT 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) 02/21/2023 8:48 AM EDT TSH WITH FREE T4 IF INDICATED Lab STAT Encounter for adjustment and management of vascular access device 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) Prostate cancer (HCC) Encounter for long-term (current) use of medications 02/21/2023 8:48 AM EDT CBC Lab STAT 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) 02/21/2023 8:48 AM EDT DIFFERENTIAL, AUTOMATED Lab STAT 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) 02/21/2023 8:48 AM EDT URINALYSIS, REFLEX TO MICROSCOPIC Lab Routine 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 Care Teams Insurance Follow Up Specialist Relationship Specialty Start Date End Date Hortencia Leal PA-C [address] [facility], [place] [address] PCP - General Physician Computer Hardware Developer 02/08/18 documented as of this encounter
--- OUTSIDE RECORDS SUMMARY | 2023-06-27 07:39 | External Medical Summary | Summary of Care ---
Author Name Unknown Organization [facility] Address 100 [facility] [place] [address] Phone [phone] Care Team Providers Care Mechanical Energy Engineer Name Role Phone Hortencia Leal PA-C Primary Care Provid er Encounter Details Date Type Department Care Team Description 02/19/2023 Orders Only Hematology/Oncology [facility] 200 [facility] [place] [address] Nik Melo MD 200 [place] [address] Allergies Active Allergy Reactions Severity Noted Date Comments Amlodipine 11/02/2020 dizziness Codeine Sulfate Other (Please comment) 10/26/19 11 hyperactivity Hydrochlorothiazide 11/02/2020 hypercalcemia Oxaliplatin 02/09/2022 Infusion related reaction documented as of this encounter (statuses as of 02/19/2023) Medications Medication Sig Dispensed Refills Start Date [...] times a day. 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 documented as of this encounter (statuses as of 02/19/2023) Immunizations Name Administration Dates Next Due COVID-19 [...] Date Type Specialty Care Team Description 02/21/2023 Laboratory Laboratory [place] [address] [place] [address] 02/21/2023 Office Visit Hematology Oncology Nik Melo MD 200 [place] [address] 02/22/2023 Hem/Onc Treatment Hematology Oncology [place], Chair 3 Hem Onc [facility] [address] [place] [address] 04/04/2023 Office Visit Urology Cm Rhodes MD [...] this encounter Medical Devices Implanted Type Area Technical Solution Architect Device Identifier Shelf Expiration Date Model / Serial / Lot Cath Power Port 6fr Clearvue - [id number] Implanted:Qty : 1 on 08/10/2021 by Alexander Rodriguez MD at [facility] Left: Subclavian CR BARD : PERIPHERAL VASCULAR 08/21/2021 [id number] / / documented as of this encounter [...] and were consensually agreed upon. Care Teams Mechanical Energy Engineer Relationship Specialty Start Date End Date Hortencia Leal PA-C [address] [place] [address] PCP - General Physician Gleason Operator 02/08/18 documented as of this encounter
--- OUTSIDE RECORDS SUMMARY | 2023-06-27 07:39 | External Medical Summary | Summary of Care ---
Author Name Unknown Organization [facility] Address 100 [facility] [place] [address] Phone [phone] Care Team Providers Care Driver Sales Name Role Phone Hortencia Leal PA-C Primary Care Provid er Reason for Visit * Reason Comments Outpatient Testing Encounter Details Date Type Department Care Team Description 02/21/2023 Laboratory Laboratory [place] [address] [place] [address] [facility] [address] [place] [address] 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 [...] times a day. 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) 02/21/2023 8:54 AM EDT MICROSCOPIC EXAM, URINE Lab Routine [...] this encounter Medical Devices Implanted Type Area Real Estate Rental Agent Device Identifier Shelf Expiration Date Model / Serial / Lot Cath Power Port 6fr Clearvue - [id number] Implanted:Qty : 1 on 08/10/2021 by Alexander Rodriguez MD at [place] [facility] Left: Subclavian CR BARD : PERIPHERAL VASCULAR 08/21/2021 [id number] / / documented as of this encounter Procedures Procedure Name Priority Date/Time Associated Diagnosis Comments DIFFERENTIAL, AUTOMATED STAT 02/21/2023 8:48 AM EDT 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) CBC WITH WBC DIFFERENTIAL STAT 02/21/2023 8:48 AM EDT 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) CBC STAT 02/21/2023 8:48 AM EDT 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) documented in this encounter Results * DIFFERENTIAL, AUTOMATED (02/21/2023 8:48 AM EDT) WBC 5.07 4.00 - 10.80 K/uL 02/21/2023 9:00 AM EDT [facility] [place] 56-02 Neutrophils % 59.7 40.0 - 75.0 % 02/21/2023 9:00 AM EDT [facility] [place] 56-02 Lymphocytes % 26.4 18.0 - 42.0 % 02/21/2023 9:00 AM EDT [facility] [place] 56-02 Monocytes % 10.7 1.0 - 11.0 % 02/21/2023 9:00 AM EDT [facility] [place] 56-02 Eosinophils % 2.8 0.0 - 6.0 % 02/21/2023 9:00 AM EDT LAB[facility]ATORY [facility] 56-02 Basophils % 0.4 0.0 - 2.0 % 02/21/2023 9:00 AM EDT [facility] [place] 56-02 Absolute Neutrophils 3.03 1.80 - 7.70 K/uL 02/21/2023 9:00 AM EDT LAB[facility]ATORY [facility] 56-02 Absolute Lymphocytes 1.34 1.00 - 4.80 K/ul 02/21/2023 9:00 AM EDT LAB[facility]ATORY [facility] 56-02 Absolute Monocytes 0.54 0.00 - 1.10 K/uL 02/21/2023 9:00 AM EDT LAB[facility]ATORY [facility] 56-02 Absolute Eosinophils 0.14 0.00 - 0.70 K/uL 02/21/2023 9:00 AM EDT LAB[facility]ATORY [facility] 56-02 Absolute Basophils 0.02 0.00 - 0.20 K/uL 02/21/2023 9:00 AM EDT [facility] [place] 56-02 Blood Venous blood specimen / Unknown Venipuncture / Unknown 02/21/2023 8:48 AM EDT 02/21/2023 8:48 AM EDT Nik Melo MD LAB BLOOD [facility]A BLES [facility] 56 [address] [place], [place] [id number] * (ABNORMAL) CBC (02/21/2023 8:48 AM EDT) WBC 5.07 4.00 - 10.80 K/uL 02/21/2023 9:00 AM EDT [address] RBC 3.41 4.50 - 5.25 M/uL 02/21/2023 9:00 AM EDT [address] HGB 9.8(L) 14.0 - 16.8 g/dL 02/21/2023 9:00 AM EDT [facility] 56 HCT 32.8(L) 40.0 - 48.4 % 02/21/2023 9:00 AM EDT [address] MCV 96.2 82.0 - 99.5 fL 02/21/2023 9:00 AM EDT [facility] 56 MCH 28.7 27.0 - 34.0 pg 02/21/2023 9:00 AM EDT [facility] 56 MCHC 29.9 32.0 - 36.0 g/dL 02/21/2023 9:00 AM EDT [facility] 56 RDW 17.4 11.5 - 15.5 % 02/21/2023 9:00 AM EDT [facility] 56 PLT 154 140 - 400 K/uL 02/21/2023 9:00 AM EDT [facility] 56 MPV 9.6 6.6 - 11.1 fL 02/21/2023 9:00 AM EDT [facility] 56 Blood Venous blood specimen / Unknown Venipuncture / Unknown 02/21/2023 8:48 AM EDT 02/21/2023 8:48 AM EDT Nik Melo MD LAB BLOOD [facility]ES [facility] [address] [place] [address] documented in this encounter Visit Diagnoses Diagnosis [...] and were consensually agreed upon. Care Teams Driver Sales Relationship Specialty Start Date End Date Hortencia Leal PA-C [address] [place] [address] PCP - General Physician Wood Stainer 02/08/18 documented as of this encounter
--- OUTSIDE RECORDS SUMMARY | 2023-06-27 07:39 | External Medical Summary | Summary of Care ---
Author Name Unknown Organization [facility] Address [address] [facility] [place] [address] Phone [phone] Care Team Providers Care Culinary Arts Instructor Name Role Phone Hortencia Leal PA-C Primary Care Provid er Reason for Visit * Reason Onset Date Comments Advice 02/08/2023 Encounter Details Date Type Department Care Team Description 02/08/2023 Telephone [facility]ematology/Oncology [facility] [address] Nik Melo MD 200 [facility] [place] [address] Advice Allergies Active Allergy Reactions Severity Noted [...] times a day. As needed 0 Active [place]-3 Fatty Acids (FISH OIL) 1000 MG Capsule [...] Telephone Encounter - Lakeisha Cortez RN - 02/08/2023 4:31 PM EDT Called patient- he said that this has only happened one time. He states that it was bright red blood. He does not know if he has hemorrhoids, per discussion with patient, it sounds as if he had an internal hemorrhoid that burst when he forced his BM. Advised him to start colace twice a day. He doesnot have bleeding now. He will call if it happens again. Explained if he has uncontrolled bleeding or large amt to go to ED. He verbalizes understanding. * Telephone Encounter - Opal Wesley LPN - 02/08/2023 2:39 PM EDT Heath called office. He states this afternoon he had large amount of bright red blood, about the size of a pad, come outwith bowel movement today. Has only happened once. Patient states he has been constipated and "he probably was pushing a little too hard". He has taken Sucralfate and Prilosec recently for acid reflux but nothing for pain or constipation. Patient denies nausea, vomiting, change of diet, dizziness, dark urine, headache, fever. He states he has been extremely fatigued since his last treatment. Patient wants call back regarding blood and advice. Heath can be reached at [phone]. documented in this encounter Plan of Treatment Upcoming Encounters Date Type Specialty Care Team Description 02/09/2023 Hem/Onc Treatment Hematology Oncology [place], Chair 2 Hem Onc Scenery 200 [facility] [place] [address] 02/21/2023 Laboratory Laboratory [facility] Lab [facility] 200 [facility] [place] [address] 02/21/2023 Office Visit Hematology Oncology Nik Melo MD 200 [facility] [address] 02/22/2023 Hem/Onc Treatment Hematology Oncology [place], Chair 3 Hem Onc Scenery 200 [facility] [place] [address] 04/04/2023 Office Visit Urology Cm Rhodes MD 27 [facility] [address] [place] [address] Health Maintenance Due Date Last [...] this encounter Medical Devices Implanted Type Area Portable Grinding Machine Operator Device Identifier Shelf Expiration Date Model / Serial / Lot Cath Power Port 6fr Clearvue - [id number] Implanted:Qty : 1 on 08/10/2021 by Alexander Rodriguez MD at [place] [facility] [place] Left: Subclavian CR BARD : PERIPHERAL VASCULAR 08/21/2021 [id number] / / documented as of this encounter [...] and were consensually agreed upon. Care Teams Culinary Arts Instructor Relationship Specialty Start Date End Date Hortencia Leal PA-C [address] [facility] [place] [address] PCP - General Physician Water Jet Loom Fixer 02/08/18 documented as of this encounter
--- OUTSIDE RECORDS SUMMARY | 2023-06-27 07:39 | External Medical Summary | Summary of Care ---
Author Name Unknown Organization [facility] Address 100 [place] [address] Phone [phone] Care Team Providers Care Ring Barker Operator Name Role Phone Hortencia Leal PA-C Primary Care Provid er Encounter Details Date Type Department Care Team Description 02/20/2023 Orders Only Hematology/Oncology, [address] [id number] Nik Melo MD 200 [place] [address] Allergies Active Allergy Reactions Severity Noted Date Comments Amlodipine 11/02/2020 dizziness Codeine Sulfate Other (Please comment) 10/26/19 11 hyperactivity Hydrochlorothiazide 11/02/2020 hypercalcemia Oxaliplatin 02/09/2022 Infusion related reaction documented as of this encounter (statuses as of 02/20/2023) Medications Medication Sig Dispensed Refills Start Date [...] times a day. 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 documented as of this encounter (statuses as of 02/20/2023) Immunizations Name Administration Dates Next Due COVID-19 [...] Specialty Care Team Description 02/21/2023 Laboratory Laboratory [facility] Lab [facility] 200 [place] [address] 02/21/2023 Office Visit Hematology Oncology Nik Melo MD 200 [facility] [address] 02/22/2023 Hem/Onc Treatment Hematology Oncology [place], Chair 3 Hem Onc [facility] 200 [place] [address] 04/04/2023 Office Visit Urology Cm Rhodes MD 27 [facility] [address] [place] [address] Health Maintenance [...] this encounter Medical Devices Implanted Type Area Environmental Web Crawler Device Identifier Shelf Expiration Date Model / Serial / Lot Cath Power Port 6fr Clearvue - [id number] Implanted:Qty : 1 on 08/10/2021 by Alexander Rodriguez MD at OR [facility] Left: Subclavian CR BARD : PERIPHERAL VASCULAR 08/21/2021 [id number] / / documented as of this encounter [...] and were consensually agreed upon. Care Teams Ring Barker Operator Relationship Specialty Start Date End Date Hortencia Leal PA-C [address] [place] [address] PCP - General Physician Wired Sweatband Cutter 02/08/18 documented as of this encounter
--- OUTSIDE RECORDS SUMMARY | 2023-06-27 07:39 | External Medical Summary ---
Author Name Unknown Address Unknown Organization [id number]:[facility] - [address] [place] [address] Laboratory Report Ordering Provider Test Date Status SHAY CH 02/21/2023 08:48:58 Final Observation Date Value Abnormality Reference (Units ) Status TSH 02/21/2023 08:48:58 1.10 0.27-4.20 (uIU/mL) Final Performing Location LAB[facility]ORY [facility] - [address] [place] [address]
--- OUTSIDE RECORDS SUMMARY | 2023-06-27 07:39 | External Medical Summary ---
Author Name Unknown Address Unknown Organization [id number]:[facility] [address] [place] [address] Laboratory Report Ordering Provider Test Date Status SHAY CH 02/21/2023 08:54:10 Final Observation Date Value Abnormality Reference (Units ) Status Color of Urine by Auto 02/21/2023 08:54:10 Yellow Light Yellow, Yellow, Dark Yellow Final Clarity, Urine 02/21/2023 08:54:10 Clear Clear Final Glucose [Mass/volume] in Urine by Automated test strip 02/21/2023 08:54:10 Negative Negative (mg/dL) Final Bilirubin.total [Presence] in Urine by Automated test strip 02/21/2023 08:54:10 Negative Negative Final Ketones [Mass/volume] in Urine by Automated test strip 02/21/2023 08:54:10 Negative Negative (mg/dL) Final Specific gravity, Urine 02/21/2023 08:54:10 1.025 1.003-1.030 Final Hemoglobin [Presence] in Urine by Automated test strip 02/21/2023 08:54:10 Negative Negative Final pH, Urine 02/21/2023 08:54:10 5.0 5.0-7.5 (Units) Final Protein [Mass/volume] in Urine by Automated test strip 02/21/2023 08:54:10 30 Abnormal Negative (mg/dL) Final Urobilinogen [Mass/volume] in Urine by Automated test strip 02/21/2023 08:54:10 0.2 0.2, 1.0 (mg/dL) Final Nitrite [Presence] in Urine by Automated test strip 02/21/2023 08:54:10 Negative Negative Final Leukocyte esterase [Presence] in Urine by Automated test strip 02/21/2023 08:54:10 Negative Negative Final Performing Location [facility] [place] [address]
--- OUTSIDE RECORDS SUMMARY | 2023-06-27 07:39 | External Medical Summary ---
Author Name Unknown Address Unknown Organization [id number]:[facility] [place] [address] Laboratory Report Ordering Provider Test Date Status SHAY CH 02/21/2023 08:54:10 Final Observation Date Value Abnormality Reference (Units ) Status RBC, Urine 02/21/2023 08:54:10 0-2 0-2 (/HPF) Final WBC, Urine 02/21/2023 08:54:10 0-2 0-2 (/HPF) Final Bacteria [#/area] in Urine sediment by Microscopy high power field 02/21/2023 08:54:10 0-25 0-25 (/HPF) Final Performing Location [facility] [place] [address]
--- OUTSIDE RECORDS SUMMARY | 2023-06-27 07:39 | External Medical Summary | Summary of Care ---
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) Procedures PET CT SKULL BASE TO MID-THIGH Nik Melo MD 200 [place] [address] Referral ID Status Reason Start Date Expiration Date V isits Requested Visits Authorized [id number] Authorized 12/04/2022 999 999 Encounter Details Date Type Department Care Team Description 02/09/2023 Hem/Onc Treatment Hematology/[address] [id number] [place], Chair 2 Hem On[address] [place] [address] 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 Goals: Pt will remain free from in jury. Possible barriers to meeting goals: risk of reaction, pt is a high fall risk Stability of the patient: Moderately stable - low risk of patient condition declining or worsening Summary regarding today's goals: Met: Pt remained free from injury during treatment today. Discharged in stable condition. AB assisted. * Danielle Calvert RN - 02/09/2023 1:41 PM EDT Chair 4 Chemo agents Taxol Appetite stable Nausea/Vomiting no Diarrhea no Constipation yes, but managing with stool softeners. Pt reported no more incidents of blood in stool since yesterday. Mucositis no Fatigue yes, but improving Bleeding see above; no other incidents noted Infection no Rash no Numbness tingling no Pain no Radiation n.a ABN Labs reviewed with Dr. Mccray; okay to proceed with treatment as ordered. Alt in Tx: no Return in 2 weeks VAD accessed; NSS infusing. Discussed shifting future appts ahead 1 week, as treatment was deferredlast week. Pt stated he would prefer to keep next week off as scheduled, as this chemo is "kicking my butt". Pt sees Dr. Melo prior to D1C2 on 02/21/23. Safety and Risk for Injury Patient will remain free from injury. Ensure appropriate safety devices are available. Provide and maintain safe environment. documented in this encounter Plan of Treatment Upcoming Encounters Date Type Specialty Care Team Description 02/21/2023 Laboratory Laboratory [place], Lab Scenery [address] [place] [address] 02/21/2023 Office Visit Hematology Oncology iNk Melo MD 200 [place] [place] [address] 02/22/2023 Hem/Onc Treatment Hematology Oncology [place], Chair 3 Hem Onc Scenery 200 [place] [address] 04/04/2023 Office Visit Urology Cm Rhodes MD 27 [facility] [address] [place] [address] Health Maintenance Due Date Last [...] this encounter Medical Devices Implanted Type Area Grinding Room Inspector Device Identifier Shelf Expiration Date Model / Serial / Lot Cath Power Port 6fr Clearvue - [id number] Implanted:Qty : 1 on 08/10/2021 by Alexander Rodriguez MD at OR [facility] Left: Subclavian CR BARD : PERIPHERAL VASCULAR 08/21/2021 [id number] / / documented as of this encounter [...] ONCE PRN Other, Hypersensitivity Reaction, Starting on Sun02/09/23 at 1339, Until 02/10/23 at 1338, For 24 hours EPINEPHrine 1 MG/ML inj 0.3 mg 0.3 mg, Intramuscular, ONCE PRN Other, Hypersensitivity Reaction or Anaphylaxis, Starting on Sun02/09/23 at 1339, Until 02/10/23 at 1338, For 24 hours hEParin 100 UNIT/ML Lock Flush inj 500 Units 500 Units (5 mL), IV Lock, PRN Other, IV Flush, Starting on Sun02/09/23 at 1339, Until 02/10/23 at 1338, For 24 hours, Do not flush if lock, PICC, or central line not in place; IV infusing or unable to flush. Given 02/09/2023 3:37 PM EDT 500 Units Hydrocortisone Sod Suc (PF) (Solu-Cortef) inj 100 mg 100 mg, IV Push, ONCE PRN Other, Hypersensitivity Reaction, Starting on Sun02/09/23 at 1339, Until 02/10/23 at 1338, For 24 hours NSS infusion 500 mL, Intravenous, at 50 mL/hr, CONTINUOUS, Starting on Sun02/09/23 at 1445, Until 02/10/23 at 0044 Start Infusion 02/09/2023 1:41 PM EDT 500 mL 50 mL/hr sodium chloride 0.9 % flush central line 10 mL 10 mL, IV Push, PRN Other, IV Flush, Starting on Sun02/09/23 at 1339, Until 02/10/23 at 1338, For 24 hours, Do not flush if lock, PICC, or central line not in place; IV infusing or unable to flush. Given 02/09/2023 3:37 PM EDT 10 mL Inactive Administered Medications - up to 3 most recent administrations Medication Order MAR Action Action Date Dose Rate Site Dexamethasone (Decadron) tab 12 mg 12 mg, Oral, ONCE, On Sun02/09/23 at 1415, For 1 dose Given 02/09/2023 1:51 PM EDT 12 mg diphenhydrAMINE (Benadryl) 25 mg in NSS 50 mL ivpb 25 mg, IV Piggyback, ONCE, 1 dose, On Sun02/09/23 at 1415 Start Infusion 02/09/2023 1:57 PM EDT 25 mg 200 mL/hr Famotidine (Pepcid) tab 20 mg 20 mg, Oral, ONCE, On Sun02/09/23 at 1445, For 1 dose Given 02/09/2023 1:51 PM EDT 20 mg PACLitaxel (Taxol) 158 mg in NSS 250 mL infusion 158 mg (rounded from 157.6 mg = 80 mg/m2 1.97 m2 Treatment Plan BSA from Recorded weight), IV Piggyback, at 250 mL/hr Administer over 60 Minutes, Administer through 0.22 micron low protein binding filter!, ONCE, 1 dose, On Sun02/09/23 at 1515 Start Infusion 02/09/2023 2:30 PM EDT 158 mg 250 mL/hr Palonosetron (Aloxi) inj SOLN 0.25 mg 0.25 mg, IV Push, ONCE, On Sun02/09/23 at 1415, For 1 dose, Restricted per GHS antiemetic guidelines Given 02/09/2023 1:52 PM EDT 0.25 mg documented in this [...] and were consensually agreed upon. Care Teams Parimutuel Ticket Checker Relationship Specialty Start Date End Date Hortencia Leal PA-C [address] [facility], [place] [address] PCP - General Physician Erosion Control Specialist 02/08/18 documented as of this encounter
--- OUTSIDE RECORDS SUMMARY | 2023-06-27 07:39 | External Medical Summary | Summary of Care ---
Author Name Unknown Organization [facility] Address [address] [place] [facility] [place] [address] Phone [phone] Care Team Providers Care Behavior Interventionist Name Role Phone Hortencia Leal PA-C Primary Care Provid er Reason for Visit * Reason Onset Date Comments Films 02/09/2023 Encounter Details Date Type Department Care Team Description 02/09/2023 Telephone Radiology Film File [address] [place], [place] [id number] Nik Melo MD [address] [place] [address] Films Allergies Active Allergy Reactions Severity Noted Date [...] times a day. As needed 0 Active [place]-3 Fatty Acids (FISH OIL) 1000 MG Capsule [...] Miscellaneous Notes * Telephone Encounter - TANI Hein - 02/09/2023 3:33 PM EDT Received fax from [facility] Radiology/Oncology department requesting 06-05-22 and 01-02-23 pet scan images be pushed through PACS. [place] Authorization to Release on file. Images pushed to [facility] PACS. Associated report(s) not needed. documented in this encounter Plan of Treatment Upcoming Encounters Date Type Specialty Care Team Description 02/21/2023 Laboratory Laboratory [place], Lab [facility] 200 [facility] [place] [address] 02/21/2023 Office Visit Hematology Oncology Nik Melo MD 200 [facility] [place] [address] 02/22/2023 Hem/Onc Treatment Hematology Oncology [place], Chair 3 Hem Onc Scene [address] [place] [address] 04/04/2023 Office Visit Urology Cm Rhodes MD 27 [facility] [place] [address] [place] [address] Health Maintenance Due Date Last Done Comments [...] encounter Medical Devices Implanted Type Area Mobile Application Engineer Device Identifier Shelf Expiration Date Model / Serial / Lot Cath Power Port 6fr Clearvue - [id number] Implanted:Qty : 1 on 08/10/2021 by Alexander Rodriguez MD at OR [facility] Left: Subclavian CR BARD : PERIPHERAL VASCULAR 08/21/2021 [id number] / / documented as of this encounter [...] and were consensually agreed upon. Care Teams Behavior Interventionist Relationship Specialty Start Date End Date Hortencia Leal PA-C [address] [facility] [address] PCP - General Physician Aquatics Director 02/08/18 documented as of this encounter
--- OUTSIDE RECORDS SUMMARY | 2023-06-27 07:39 | External Medical Summary | Summary of Care ---
Author Name Unknown Organization [facility] Address [address] [facility] [place] [address] Phone [phone] Care Team Providers Care Shop Tailor Name Role Phone Hortencia Leal PA-C Primary Care Provid er Reason for Visit * Reason Onset Date Comments Advice 02/08/2023 Encounter Details Date Type Department Care Team Description 02/08/2023 Telephone Hematology/Oncology [facility] [address] Nik Melo MD 200 [place] [address] Advice Allergies Active Allergy Reactions Severity Noted [...] times a day. As needed 0 Active [place]-3 Fatty Acids (FISH OIL) 1000 MG Capsule [...] and advice. Heath can be reached at [phone]. documented in this encounter Plan of Treatment Upcoming Encounters Date Type Specialty Care Team Description 02/09/2023 Hem/Onc Treatment Hematology Oncology [place], Chair 2 Hem Onc Scenery [address] [place] [address] 02/21/2023 Laboratory Laboratory [place], Lab Scenery 200 [place] [address] 02/21/2023 Office Visit Hematology Oncology Nik Melo MD 200 [place] [address] 02/22/2023 Hem/Onc Treatment Hematology Oncology [place], Chair 3 Hem Onc Scene 200 [place] [address] 04/04/2023 Office Visit Urology Cm Rhodes MD 27 [facility] [place] [address] [place] [address] Health Maintenance Due Date Last [...] this encounter Medical Devices Implanted Type Area Retail Supervisor Device Identifier Shelf Expiration Date Model / Serial / Lot Cath Power Port 6fr Clearvue - [id number] Implanted:Qty : 1 on 08/10/2021 by Alexander Rodriguez MD [place] [facility] [place]: Subclavian CR BARD : PERIPHERAL VASCULAR 08/21/2021 [id number] / / documented as of this encounter [...] and were consensually agreed upon. Care Teams Shop Tailor Relationship Specialty Start Date End Date Hortencia Leal PA-C [facility] [facility] [place] [address] PCP - General Physician Lining Ironer 02/08/18 documented as of this encounter
--- OUTSIDE RECORDS SUMMARY | 2023-06-27 07:39 | External Medical Summary | Summary of Care ---
Author Name Unknown Organization [facility] Address [address] [facility] [place] [address] Phone [phone] Care Team Providers Care Food Services Manager Name Role Phone Hortencia Leal PA-C Primary Care Provid er Reason for Visit * Reason Comments Outpatient Testing Encounter Details Date Type Department Care Team Description 02/08/2023 Laboratory Laboratory [place] Maggie Castañeda [address] [place] [address] [place], Lab Scenery [address] [place] [address] 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 [...] times a day. As needed 0 Active [place]-3 Fatty Acids (FISH OIL) 1000 MG Capsule [...] Team Description 02/09/2023 Hem/Onc Treatment Hematology Oncology [place], Chair 2 Hem Onc [facility] 200 [place] [address] 02/21/2023 Laboratory Laboratory [facility] Lab [facility] [address] 02/21/2023 Office Visit Hematology Oncology Nik Melo MD 200 [place] [address] 02/22/2023 Hem/Onc Treatment Hematology Oncology [place], Chair 3 Hem Onc [facility] [address] 04/04/2023 Office Visit Urology Cm Rhodes MD [address] [place] [address] [place] [address] Pending Results Name Type Priority Associated Diagnoses Date /Time COMPREHENSIVE METABOLIC PANEL Lab STAT 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) 02/08/2023 10:20 AM EDT Health Maintenance Due Date Last [...] this encounter Medical Devices Implanted Type Area It Account Manager Device Identifier Shelf Expiration Date Model / Serial / Lot Cath Power Port 6fr Clearvue - [id number] Implanted:Qty : 1 on 08/10/2021 by Alexander Rodriguez MD at [place] [facility] [place] Left: Subclavian CR BARD : PERIPHERAL VASCULAR 08/21/2021 [id number] / / documented as of this encounter Procedures Procedure Name Priority Date/Time Associated Diagnosis Comments DIFFERENTIAL, AUTOMATED STAT 02/08/2023 10:20 AM EDT 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) CBC WITH WBC DIFFERENTIAL STAT 02/08/2023 10:20 AM EDT 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) CBC STAT 02/08/2023 10:20 AM EDT 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) documented in this encounter Results * (ABNORMAL) DIFFERENTIAL, AUTOMATED (02/08/2023 10:20 AM EDT) WBC 5.47 4.00 - 10.80 K/uL 02/08/2023 10:32 AM EDT [facility] 56-02 Neutrophils % 56.5 40.0 - 75.0 % 02/08/2023 10:32 AM EDT [facility] 56-02 Lymphocytes % 25.2 18.0 - 42.0 % 02/08/2023 10:32 AM EDT [facility] 56-02 Monocytes % 15.5(H) 1.0 - 11.0 % 02/08/2023 10:32 AM EDT [facility] 56-02 Eosinophils % 2.6 0.0 - 6.0 % 02/08/2023 10:32 AM EDT [facility] 56-02 Basophils % 0.2 0.0 - 2.0 % 02/08/2023 10:32 AM EDT [facility] 56-02 Absolute Neutrophils 3.09 1.80 - 7.70 K/uL 02/08/2023 10:32 AM EDT [facility] 56-02 Absolute Lymphocytes 1.38 1.00 - 4.80 K/ul 02/08/2023 10:32 AM EDT [facility] 56-02 Absolute Monocytes 0.85 0.00 - 1.10 K/uL 02/08/2023 10:32 AM EDT [facility] 56-02 Absolute Eosinophils 0.14 0.00 - 0.70 K/uL 02/08/2023 10:32 AM EDT [facility] 56-02 Absolute Basophils 0.01 0.00 - 0.20 K/uL 02/08/2023 10:32 AM EDT [facility] 56-02 Blood Venous blood specimen / Unknown Venipuncture / Unknown 02/08/2023 10:20 AM EDT 02/08/2023 10:20 AM EDT Nik Melo MD LAB BLOOD ORDERA BLES [facility] 56-[address] [place] [address] * (ABNORMAL) CBC (02/08/2023 10:20 AM EDT) WBC 5.47 4.00 - 10.80 K/uL 02/08/2023 10:32 AM EDT [facility] 56- RBC 3.45 4.50 - 5.25 M/uL 02/08/2023 10:32 AM EDT [facility] 56- HGB 10.0(L) 14.0 - 16.8 g/dL 02/08/2023 10:32 AM EDT [facility] 56- HCT 34.0(L) 40.0 - 48.4 % 02/08/2023 10:32 AM EDT [facility] 56- MCV 98.6 82.0 - 99.5 fL 02/08/2023 10:32 AM EDT [facility] 56 MCH 29.0 27.0 - 34.0 pg 02/08/2023 10:32 AM EDT [facility] 56 MCHC 29.4 32.0 - 36.0 g/dL 02/08/2023 10:32 AM EDT [facility] 56 RDW 16.4 11.5 - 15.5 % 02/08/2023 10:32 AM EDT [facility] 56- PLT 181 140 - 400 K/uL 02/08/2023 10:32 AM EDT [facility] 56- MPV 9.0 6.6 - 11.1 fL 02/08/2023 10:32 AM EDT [facility] 56-02 Blood Venous blood specimen / Unknown Venipuncture / Unknown 02/08/2023 10:20 AM EDT 02/08/2023 10:20 AM EDT Nik Melo MD LAB BLOOD ORDERA BLES [facility] [address]- [address] [place] [address] documented in this encounter Visit Diagnoses Diagnosis [...] were consensually agreed upon. Care Teams Food Services Manager Relationship Specialty Start Date End Date Hortencia Leal PA-C [address] [place] [address] PCP - General Physician [place] Manager 02/08/18 documented as of this encounter
--- OUTSIDE RECORDS SUMMARY | 2023-06-27 07:39 | External Medical Summary ---
Author Name Unknown Address Unknown Organization [facility] [place] [address] Laboratory Report Ordering Provider Test Date Status SHAY CH 02/21/2023 08:48:58 Final Observation Date Value Abnormality Reference (Units ) Status SYNC LEUKOCYTES IN BLOOD BY AUTOMATED COUNT 02/21/2023 08:48:58 5.07 4.00-10.80 (K/uL) Final Segs 02/21/2023 08:48:58 59.7 40.0-75.0 (%) Final Lymphs % 02/21/2023 08:48:58 26.4 18.0-42.0 (%) Final Monos 02/21/2023 08:48:58 10.7 1.0-11.0 (%) Final Eosinophils 02/21/2023 08:48:58 2.8 0.0-6.0 (%) Final Basos 02/21/2023 08:48:58 0.4 0.0-2.0 (%) Final Absolute Segs 02/21/2023 08:48:58 3.03 1.80-7.70 (K/uL) Final Lymphs, absolute 02/21/2023 08:48:58 1.34 1.00-4.80 (K/ul) Final Monos, Abs 02/21/2023 08:48:58 0.54 0.00-1.10 (K/uL) Final Eos, Abs 02/21/2023 08:48:58 0.14 0.00-0.70 (K/uL) Final Basos, Abs 02/21/2023 08:48:58 0.02 0.00-0.20 (K/uL) Final Performing Location [facility] [place] [address]
--- OUTSIDE RECORDS SUMMARY | 2023-06-27 07:39 | External Medical Summary | Summary of Care ---
Author Name Unknown Organization [facility] Address [address] [facility] [place] [address] Phone [phone] Care Team Providers Care Monitoring Coordinator Name Role Phone Hortencia Leal PA-C Primary Care Provid er Reason for Visit * Reason Onset Date Comments Advice 02/08/2023 Encounter Details Date Type Department Care Team Description 02/08/2023 Telephone Hematology/Oncology [facility] [address] Nik Melo MD 200 [place] [address] Advice Allergies Active Allergy Reactions Severity Noted [...] times a day. As needed 0 Active [place]-3 Fatty Acids (FISH OIL) 1000 MG Capsule [...] and advice. Heath can be reached at [phone]. documented in this encounter Plan of Treatment Upcoming Encounters Date Type Specialty Care Team Description 02/09/2023 Hem/Onc Treatment Hematology Oncology [place], Chair 2 Hem Onc Scenery [address] [place] [address] 02/21/2023 Laboratory Laboratory [place], Lab Scenery 200 [place] [address] 02/21/2023 Office Visit Hematology Oncology Nik Melo MD 200 [place] [address] 02/22/2023 Hem/Onc Treatment Hematology Oncology [place], Chair 3 Hem Onc Scene 200 [place] [address] 04/04/2023 Office Visit Urology Cm Rhodes MD 27 [facility] [address] [place] [address] Health Maintenance Due Date Last [...] this encounter Medical Devices Implanted Type Area Gymnastics Coach Device Identifier Shelf Expiration Date Model / Serial / Lot Cath Power Port 6fr Clearvue - [id number] Implanted:Qty : 1 on 08/10/2021 by Alexander Rodriguez MD at [place] [facility] Left: Subclavian CR BARD : PERIPHERAL VASCULAR 08/21/2021 [id number] / / documented as of this encounter [...] and were consensually agreed upon. Care Teams Monitoring Coordinator Relationship Specialty Start Date End Date Hortencia Leal PA-C [facility] [facility] [place] [address] PCP - General Physician Story Editor 02/08/18 documented as of this encounter
--- OUTSIDE RECORDS SUMMARY | 2023-06-27 07:39 | External Medical Summary ---
Author Name Unknown Address Unknown Organization [facility] [place] [address] Laboratory Report Ordering Provider Test Date Status SHAY CH 02/21/2023 08:48:58 Final Observation Date Value Abnormality Reference (Units ) Status WBC, Total 02/21/2023 08:48:58 5.07 4.00-10.8 0 (K/uL) Final RBC 02/21/2023 08:48:58 3.41 4.50-5.25 (M/uL) Final Hemoglobin 02/21/2023 08:48:58 9.8 Below low normal 14 .0-16.8 (g/dL) Final HCT 02/21/2023 08:48:58 32.8 Below low normal 40. 0-48.4 (%) Final MCV 02/21/2023 08:48:58 96.2 82.0-99.5 (fL) Final MCH 02/21/2023 08:48:58 28.7 27.0-34.0 (pg) Final MCHC 02/21/2023 08:48:58 29.9 32.0-36.0 (g/dL) Final RDW 02/21/2023 08:48:58 17.4 11.5-15.5 (%) Final Platelets 02/21/2023 08:48:58 154 140-400 (K /uL) Final MPV 02/21/2023 08:48:58 9.6 6.6-11.1 ( fL) Final Performing Location [facility] [place] [address]
--- OUTSIDE RECORDS SUMMARY | 2023-06-27 07:40 | External Medical Summary | Summary of Care ---
Author Name Unknown Organization [facility] Address 100 [facility] [place] [address] Phone [phone] Care Team Providers Care Passenger Service Representative Name Role Phone Hortencia Leal PA-C Primary Care Provid er Reason for Visit * Reason Onset Date Comments Information 02/05/2023 Encounter Details Date Type Department Care Team Description 02/05/2023 Telephone Hematology/[address]cology [address], [address] [address] Nik Melo MD 200 [place] [address] Information Allergies Active Allergy Reactions Severity Noted Date Comments Amlodipine 11/02/2020 dizziness Codeine Sulfate Other (Please comment) 10/26/19 11 hyperactivity Hydrochlorothiazide 11/02/2020 hypercalcemia Oxaliplatin 02/09/2022 Infusion related reaction documented as of this encounter (statuses as of 02/05/2023) Medications Medication Sig Dispensed Refills Start Date [...] times a day. 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 States that he is feeling ok. Reviewed that hgb 10.1 which is improved. Patient verbalized understanding, confirmed appts for later this week for labs/ treatment. * Telephone Encounter - Venita Byers RN - 02/05/2023 11:23 AM EDT Called patient to review labs from today. Left message for him to return call. documented in this encounter Plan of Treatment Upcoming Encounters Date Type Specialty Care Team Description 02/08/2023 Laboratory Laboratory [place], Lab Scenery [address] [place] [address] 02/09/2023 Hem/Onc Treatment Hematology Oncology [place], Chair 2 Hem Onc Scenery 200 [facility] [place], [place] [address] 02/21/2023 Laboratory Laboratory [place], Lab [facility] 200 [facility] [place] [address] 02/21/2023 Office Visit Hematology Oncology [facility] [address] 02/22/2023 Hem/Onc Treatment Hematology Oncology [place], Chair 3 Hem Onc Scenery 200 [facility] [place] [address] 04/04/2023 Office Visit Urology Cm Rhodes MD 27 [facility] [address] [place] [address] Health Maintenance Due Date Last [...] this encounter Medical Devices Implanted Type Area Nonprofit Fundraiser Device Identifier Shelf Expiration Date Model / Serial / Lot Cath Power Port 6fr Clearvue - [id number] Implanted:Qty : 1 on 08/10/2021 by Alexander Rodriguez MD at [place] [facility] [place] Left: Subclavian CR BARD : PERIPHERAL VASCULAR 08/21/2021 [id number] / / documented as of this encounter [...] and were consensually agreed upon. Care Teams Passenger Service Representative Relationship Specialty Start Date End Date Hortencia Leal PA-C [address] [place] [address] PCP - General Physician Custom Wood Stair Builder 02/08/18 documented as of this encounter
--- OUTSIDE RECORDS SUMMARY | 2023-06-27 07:40 | External Medical Summary | Summary of Care ---
Author Name Unknown Organization [facility] Address 100 [facility] [place] [address] Phone [phone] Care Team Providers Care Production Broaching Machine Operator Name Role Phone Hortencia Leal PA-C Primary Care Provid er Reason for Visit * Reason Onset Date Comments Information 02/05/2023 Check in after C 1D1 cyramza/ taxol Encounter Details Date Type Department Care Team Description 02/05/2023 Telephone Hematology/Oncology Treatment, [address] [address] Nik Melo MD 200 [place] [address] Information (Check in after C1D1 cyramza/ ... Allergies Active Allergy Reactions Severity Noted Date [...] times a day. As needed 0 Active [place]-3 Fatty Acids (FISH OIL) 1000 MG Capsule [...] Byers RN - 02/05/2023 11:23 AM EDT HEMATOLOGY/ONCOLOGY INITIAL CHEMO FOLLOW-UP Patient received C1D1 cyramza/ taxol 02/02/23. Called patient to check how he is doing/ review labs from today. Left message for him to return call. documented in this encounter Plan of Treatment Upcoming Encounters Date Type Specialty Care Team Description 02/08/2023 Laboratory Laboratory [place] Lab Scenery [address] [place] [address] 02/09/2023 Hem/Onc Treatment Hematology Oncology [place], Chair 2 Hem Onc Scenery [address] [place] [address] 02/21/2023 Laboratory Laboratory [place] Lab Scenery 200 [place] [address] 02/21/2023 Office Visit Hematology Oncology Nik Melo MD 200 [place] [address] 02/22/2023 Hem/Onc Treatment Hematology Oncology [place], Chair 3 Hem Onc [facility] 200 [place] [address] 04/04/2023 Office Visit Urology Cm Rhodes MD 27 [facility] [address] [place] [address] Health Maintenance Due Date Last [...] this encounter Medical Devices Implanted Type Area Carpenter Inspector Device Identifier Shelf Expiration Date Model / Serial / Lot Cath Power Port 6fr Clearvue - [id number] Implanted:Qty : 1 on 08/10/2021 [place] Rodriguez [place] [facility] [place]: Subclavian CR BARD : PERIPHERAL VASCULAR 08/21/2021 [id number] / / documented as of this encounter [...] and were consensually agreed upon. Care Teams Production Broaching Machine Operator Relationship Specialty Start Date End Date Hortencia Leal PA-C [address] [facility], [place] [address] PCP - General Physician Equipment Worker 02/08/18 documented as of this encounter
--- OUTSIDE RECORDS SUMMARY | 2023-06-27 07:40 | External Medical Summary | Summary of Care ---
Author Name Unknown Organization [facility] Address 100 [facility] [place] [address] Phone [phone] Care Team Providers Care Outreach Associate Name Role Phone Hortencia Leal PA-C Primary Care Provid er Reason for Visit * Reason Onset Date Comments Precert Future 01/30/2023 aloxi Encounter Details Date Type Department Care Team Description 01/30/2023 Telephone Hematology/Oncology Treatment, [address] [phone] Nik Melo MD 200 [place] [address] Precert Future (aloxi) Allergies Active Allergy Reactions Severity Noted Date Comments Amlodipine 11/02/2020 dizziness Codeine Sulfate Other (Please comment) 10/26/19 11 hyperactivity Hydrochlorothiazide 11/02/2020 hypercalcemia Oxaliplatin 02/09/2022 Infusion related reaction documented as of this encounter (statuses as of 01/31/2023) Medications Medication Sig Dispensed Refills Start Date [...] times a day. 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 * Telephone Encounter - TANI Islas - 01/31/2023 9:52 AM EDT Being updated * Telephone Encounter - Venita Byers RN - 01/30/2023 4:11 PM EDT Order received to change patients premedication for chemotherapy to aloxi due to nausea/ vomiting after first treatment cycle which was not controlled with zofran or compazine. [place] updated. Patient is scheduled for next treatment 02/02/23. Precert: please obtain auth for ALOXI prior to treatment appointment. Thanks! documented in this encounter Plan of Treatment Upcoming Encounters Date Type Specialty Care Team Description 02/01/2023 Laboratory Laboratory [place], Lab Scenery [address] [place], [place] [address] 02/02/2023 Hem/Onc Treatment Hematology Oncology [place], Chair 7 Hem Onc Scenery [address] [place] [address] 02/08/2023 Laboratory Laboratory [place], Lab Scenery [address] [place] [address] 02/09/2023 Hem/Onc Treatment Hematology Oncology [place], Chair 2 Hem Onc Scenery [address] [place] [address] 02/21/2023 Laboratory Laboratory [place], Lab Scenery [address] [place], [place] [address] 02/21/2023 Office Visit Hematology Oncology Nik Melo MD [address] [facility], [place] [address] 02/22/2023 Hem/Onc Treatment Hematology Oncology [place], Chair 3 Hem Onc Scenery [address] [facility] [address] 04/04/2023 Office Visit Urology Cm Rhodes MD [...] this encounter Medical Devices Implanted Type Area Administration Intern Device Identifier Shelf Expiration Date Model / Serial / Lot Cath Power Port 6fr Clearvue - [id number] Implanted:Qty : 1 on 08/10/2021 by Alexander Rodriguez MD at [facility] Left: Subclavian CR BARD : PERIPHERAL VASCULAR 08/21/2021 [id number] / / documented as of this encounter [...] and were consensually agreed upon. Care Teams Outreach Associate Relationship Specialty Start Date End Date Hortencia Leal PA-C [address] [facility] [place] [address] PCP - General Physician Cat Breeder 02/08/18 documented as of this encounter
--- OUTSIDE RECORDS SUMMARY | 2023-06-27 07:40 | External Medical Summary | Summary of Care ---
Author Name Unknown Organization [facility] Address 100 [facility] [place] [address] Phone [phone] Care Team Providers Care Rn Procedures Name Role Phone Hortencia Leal PA-C Primary Care Provid er Reason for Visit * Reason Onset Date Comments Precert Future 01/30/2023 aloxi Encounter Details Date Type Department Care Team Description 01/30/2023 Telephone Hematology/Oncology Treatment, [address] [phone] Nik Melo MD 200 [place] [address] Precert Future (aloxi) Allergies Active Allergy Reactions [...] times a day. As needed 0 Active [place]-3 Fatty Acids (FISH OIL) 1000 MG Capsule [...] was not controlled with zofran or compazine. [place] updated. Patient is scheduled for next treatment 02/02/23. Precert: please obtain auth for ALOXI prior to treatment appointment. Thanks! documented in this encounter Plan of Treatment Upcoming Encounters Date Type Specialty Care Team Description 02/01/2023 Laboratory Laboratory [place] [place] [address] 02/02/2023 Hem/Onc Treatment Hematology Oncology [place], Chair 7 Hem Onc Scenery [address] [place] [address] 02/08/2023 Laboratory Laboratory [place], Lab Scenery 200 [place] [address] 02/09/2023 Hem/Onc Treatment Hematology Oncology [place], Chair 2 Hem Onc Scenery 200 [place] [address] 02/21/2023 Laboratory Laboratory [facility] Lab Scenery 200 [place] [address] 02/21/2023 Office Visit Hematology Oncology Nik Melo MD 200 [place] [address] 02/22/2023 Hem/Onc Treatment Hematology Oncology [place], Chair 3 Hem Onc Scenery 200 [place] [address] 04/04/2023 Office Visit Urology RhodesCm MD [address] [place] [address] Health Maintenance Due Date Last Done Comments [...] this encounter Medical Devices Implanted Type Area Salesperson Neckties Device Identifier Shelf Expiration Date Model / Serial / Lot Cath Power Port 6fr Clearvue - [id number] Implanted:Qty : 1 on 08/10/2021 by Alexander Rodriguez MD at [facility] Left: Subclavian CR BARD : PERIPHERAL VASCULAR 08/21/2021 [id number] / / documented as of this encounter [...] and were consensually agreed upon. Care Teams Rn Procedures Relationship Specialty Start Date End Date Hortencia Leal PA-C [address] [facility] [place] [address] PCP - General Physician Racquet Maker 02/08/18 documented as of this encounter
--- OUTSIDE RECORDS SUMMARY | 2023-06-27 07:40 | External Medical Summary | Summary of Care ---
Author Name Unknown Organization [facility] Address 100 [facility] [place] [address] Phone [phone] Care Team Providers Care Can Filling Machine Operator Name Role Phone Hortencia Leal PA-C Primary Care Provid er Reason for Visit * Reason Onset Date Comments Precert Future 01/30/2023 aloxi Encounter Details Date Type Department Care Team Description 01/30/2023 Telephone Hematology/Oncology Treatment, [address] [phone] Nik Melo MD 200 [place] [address] Precert Future (aloxi) Allergies Active Allergy Reactions [...] times a day. As needed 0 Active [place]-3 Fatty Acids (FISH OIL) 1000 MG Capsule [...] Miscellaneous Notes * Telephone Encounter - TANI Ilsas - 01/31/2023 9:52 AM EDT Being updated * Telephone Encounter - Venita Byers RN - 01/30/2023 4:11 PM EDT Order received to change patients premedication for chemotherapy to aloxi due to nausea/ vomiting after first treatment cycle which was not controlled with zofran or compazine. [place] updated. Patient is scheduled for next treatment 02/02/23. Precert: please obtain auth for ALOXI prior to treatment appointment. Thanks! documented in this encounter Plan of Treatment Upcoming Encounters Date Type Specialty Care Team Description 02/01/2023 Laboratory Laboratory [place], Lab Scenery [address] [place] [address] 02/02/2023 Hem/Onc Treatment Hematology Oncology [place], Chair 7 Hem Onc Scenery [address] [place] [address] 02/08/2023 Laboratory Laboratory [place], Lab Scenery [address] [place] [address] 02/09/2023 Hem/Onc Treatment Hematology Oncology [place], Chair 2 Hem Onc Scenery [address] [place] [address] 02/21/2023 Laboratory Laboratory [place], Lab Scenery 200 [facility] [place] [address] 02/21/2023 Office Visit Hematology Oncology Nik Melo MD 200 [place] [address] 02/22/2023 Hem/Onc Treatment Hematology Oncology [place], Chair 3 Hem Onc Scenery [address] [place] [address] 04/04/2023 Office Visit Urology [place], Cm Carlson MD 27 [facility] [address] [place] [address] Health Maintenance Due Date Last [...] this encounter Medical Devices Implanted Type Area Rug Hooker Device Identifier Shelf Expiration Date Model / Serial / Lot Cath Power Port 6fr Clearvue - [id number] Implanted:Qty : 1 on 08/10/2021 by Alexander Rodriguez MD at [facility] Left: Subclavian CR BARD : PERIPHERAL VASCULAR 08/21/2021 [id number] / / documented as of this encounter [...] and were consensually agreed upon. Care Teams Can Filling Machine Operator Relationship Specialty Start Date End Date Hortencia Leal PA-C [address] [facility] [address] PCP - General Physician Felt Cementer 02/08/18 documented as of this encounter
--- OUTSIDE RECORDS SUMMARY | 2023-06-27 07:40 | External Medical Summary | Summary of Care ---
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) Procedures PET CT SKULL BASE TO MID-THIGH Nik Melo MD 200 [place] [address] Referral ID Status Reason Start Date Expiration Date V isits Requested Visits Authorized [id number] Authorized 12/04/2022 999 999 Encounter Details Date Type Department Care Team Description 02/02/2023 Hem/Onc Treatment Hematology/Oncology Treatment, [address] [place] [phone] [place], Chair 7 Hem Onc [facility] 200 [facility] [place] [address] Anemia, unspecified type* Allergies Active Allergy Reactions Severity Noted Date Comments Amlodipine 11/02/2020 dizziness Codeine Sulfate Other (Please comment) 10/26/19 11 hyperactivity Hydrochlorothiazide 11/02/2020 hypercalcemia Oxaliplatin 02/09/2022 Infusion related reaction documented as of this encounter (statuses as of 02/02/2023) Medications Medication Sig Dispensed Refills Start Date [...] times a day. 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 Overall albs are WNL for treatment but hgb continuing to trend down, 9.1, and Cr remains elevated, 2.0 on labs yesterday. Patient hgb continuing to drop since about early December when patient had been in the hospital and endoscopy was done inpatient. Overall patient has not had any bleeding to his knowledge. See endoscopyreport (biopsy sites has bled but clotted and other sites revealed non bleeding ulcers/etc). Overall patient still c/o feeling very fatigued today, still feels he is too "beat" from last week when he received C1/D1 - Cyramza/Taxol. Patient was only to receive C1/D8 - Taxol only today. Per Dr. Mccray, patient would be okay for treatment today. However, patient felt he did not want to proceedwith treatment today. Patient has not had any further emesis/diarrhea since his last treatment day (came in for IV hydration/labs 01/30). Dr. Mccray does not feel there would be anything patient would require today, infusion-wright. Patient communicated understanding and feels he would be better off holding off on treatment today until next week, and seeing how he feels then. Patient already scheduled 02/08 labs and 02/09 treatment, and he will receive C1/D8 - Taxol with CBCD, CMP day prior. Patient left facility in clinically stable condition and denied any further needs. documented in this encounter Plan of Treatment Upcoming Encounters Date Type Specialty Care Team Description 02/05/2023 Laboratory Laboratory [place], Lab Scenery [address] [place] [address] 02/08/2023 Laboratory Laboratory [place], Lab Scenery [address] [place] [address] 02/09/2023 Hem/Onc Treatment Hematology Oncology [place], Chair 2 Hem Onc Scenery [address] [place] [address] 02/21/2023 Laboratory Laboratory [place], Lab Scenery 200 [place] [address] 02/21/2023 Office Visit Hematology Oncology Nik Melo MD 200 [place] [address] 02/22/2023 Hem/Onc Treatment Hematology Oncology [place], Chair 3 Hem Onc [facility] 200 [place] [address] 04/04/2023 Office Visit Urology Cm Rhodes MD 27 [facility] [address] [place] [address] Scheduled Orders Name Type Priority Associated Diagnoses Orde r Schedule CBC WITH WBC DIFFERENTIAL Lab STAT Anemia, unspecified type Expected: 02/05/2023, Expires: 02/03/2024 Health Maintenance Due Date Last Done Comments [...] this encounter Medical Devices Implanted Type Area Wire Worker Device Identifier Shelf Expiration Date Model / Serial / Lot Cath Power Port 6fr [place]ue - [id number] Implanted:Qty : 1 on 08/10/2021 by Alexander Rodriguez MD at [place] [facility] [place] Left: Subclavian CR BARD : PERIPHERAL VASCULAR 08/21/2021 [id number] / / documented as of this encounter Visit Diagnoses Diagnosis Anemia, unspecified type- Primary documented in this encounter Advance Directives [...] and were consensually agreed upon. Care Teams Hat Designer Relationship Specialty Start Date End Date Hortencia Leal PA-C [address] [place] [address] PCP - General Physician Product Support Technician 02/08/18 documented as of this encounter
--- OUTSIDE RECORDS SUMMARY | 2023-06-27 07:40 | External Medical Summary ---
Author Name Unknown Address Unknown Organization K[facility] [place] [address] Laboratory Report Ordering Provider Test Date Status CHRISTOPHE ORNELAS 02/05/2023 10:39:53 Final Observation Date Value Abnormality Reference (Units ) Status WBC, Total 02/05/2023 10:39:53 5.50 4.00-10.8 0 (K/uL) Final RBC 02/05/2023 10:39:53 3.34 4.50-5.25 (M/uL) Final Hemoglobin 02/05/2023 10:39:53 10.1 Below low normal 14 .0-16.8 (g/dL) Final HCT 02/05/2023 10:39:53 33.4 Below low normal 40. 0-48.4 (%) Final MCV 02/05/2023 10:39:53 100.0 82.0-99.5 (fL) Final MCH 02/05/2023 10:39:53 30.2 27.0-34.0 (pg) Final MCHC 02/05/2023 10:39:53 30.2 32.0-36.0 (g/dL) Final RDW 02/05/2023 10:39:53 16.2 11.5-15.5 (%) Final Platelets 02/05/2023 10:39:53 181 140-400 (K /uL) Final MPV 02/05/2023 10:39:53 9.5 6.6-11.1 ( fL) Final Performing Location [facility] [place] [address]
--- OUTSIDE RECORDS SUMMARY | 2023-06-27 07:40 | External Medical Summary ---
Author Name Unknown Address Unknown Organization [facility] [place] [address] Laboratory Report Ordering Provider Test Date Status SHAY CH 02/08/2023 10:20:46 Final Observation Date Value Abnormality Reference (Units ) Status SYNC LEUKOCYTES IN BLOOD BY AUTOMATED COUNT 02/08/2023 10:20:46 5.47 4.00-10.80 (K/uL) Final Segs 02/08/2023 10:20:46 56.5 40.0-75.0 (%) Final Lymphs % 02/08/2023 10:20:46 25.2 18.0-42.0 (%) Final Monos 02/08/2023 10:20:46 15.5 Above high normal 1.0-11.0 (%) Final Eosinophils 02/08/2023 10:20:46 2.6 0.0-6.0 (%) Final Basos 02/08/2023 10:20:46 0.2 0.0-2.0 (%) Final Absolute Segs 02/08/2023 10:20:46 3.09 1.80-7.70 (K/uL) Final Lymphs, absolute 02/08/2023 10:20:46 1.38 1.00-4.80 (K/ul) Final Monos, Abs 02/08/2023 10:20:46 0.85 0.00-1.10 (K/uL) Final Eos, Abs 02/08/2023 10:20:46 0.14 0.00-0.70 (K/uL) Final Basos, Abs 02/08/2023 10:20:46 0.01 0.00-0.20 (K/uL) Final Performing Location [facility] [place] [address]
--- OUTSIDE RECORDS SUMMARY | 2023-06-27 07:40 | External Medical Summary | Summary of Care ---
Author Name Unknown Organization [facility] Address [address] [facility] [address] Phone [phone] Care Team Providers Care Bottle House Pumper Name Role Phone Hortencia Leal PA-C Primary Care Provid er Reason for Referral * Evaluate & Treat - Unlimited Visits (Within 3 days (urgent)) - Authorized Specialty Diagnoses / Procedures Referred By Lizzie reno Referred To Contact Pharmacist / Pharmacy Diagnoses Type 2 diabetes mellitus with stage 3b chronic kidney disease, without long-term current use of insulin (HCC) Adeline Jin CRNP [address] [place] [address] Referral ID Status Reason Start Date Expiration Date Visits Requested Visits Authorized [id number] Authorized Specialty Services Required 01/30/2023 99 99 Question Answer Referral Priority Within 3 days (urgent) Department: Specialist Specialty: Heme/Onc Reason for Referral: DM Target A1c: Other - assistance with management of diabetes while receiving chemotherapy Comments Pharmacist Medication Therapy Management: Minimum frequency patient should be seen in person for medication management: as appropriate per clinical condition and patient status By my signature, I understand that my patient Heath Austin will have his medication therapy managed by the [facility] Medication Therapy [facility] ([facility]) per established policies, procedures, and protocols. I also certify that this referral may serve as an initiation of service for the management of drug therapy in the above noted patient. [facility] providers will be responsible for scheduling patient visits, obtaining appropriate laboratory studies, and adjusting medication management therapy per patient's need, in addition to those roles spelled out in the clinic policy, procedures, and drug management protocols. I understand that the service provided by the [facility] is voluntary and have informed patient that they can refuse the service at their discretion. I am aware that the [facility] Clinic will provide me with a copy of the patient encounter via my [address] [employer]. I authorize the [facility] Clinic to carry out these activities on my behalf. I consider this program to be a necessary part of the patient's medical care. 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 As needed 0 Active [place]-3 Fatty Acids (FISH OIL) 1000 MG Capsule [...] Sign Reading Time Taken Comments Blood Pressure 151/78 01/30/2023 8:55 AM EDT Pulse 81 01/30/2023 8:55 AM EDT Temperature 36.3 C (97.4 F) 01/30/2023 8:55 AM ED T Respiratory Rate 16 01/30/2023 8:55 AM EDT Oxygen Saturation 96% 01/30/2023 8:55 AM EDT Inhaled Oxygen Concentration - - Weight 83.4 kg (183 lb 12.8 oz) 01/30/2023 8:55 AM EDT Height - - Body Mass Index 31.53 01/16/2023 10:35 AM EDT documented in this encounter Progress Notes * LYLE Liao - 01/30/2023 9:00 AM EDT Hematology/Oncology Outpatient Clinic note Edmond Castañeda [address] [place], [place] [address] Name: Heath Austin Date: 01/30/2023 CHIEF COMPLAINT: Heath Austin is a 77 year old male patient of Dr. Zaragoza Lorie here today for f/u visit today. From Patient chart confirmed with patient. From Dr. Zaragoza Lorie note 01/08/23 HEMATOLOGY/ONCOLOGY DIAGNOSIS: Metastatic esophageal cancer-laparoscopic biopsy of the peritoneal nodule which is positive for metastatic disease Prostate cancer,pT2, Group IIA, [place] 3+4 DATE OF DIAGNOSIS: 07/15/21 TREATMENT HISTORY: Received total of 9 cycles of FOLFOX.Nivolumab was added on 11/02/2021.Last chemotherapy was on02/08/2022. He had allergic reaction and subsequently FOLFOX chemotherapy was discontinued. Was continued on single agent nivolumab until recurrent disease identified. This was discontinued 01/08/23. CURRENT TREATMENT: RAMUCIRUMAB 8 MG/KG D1,15 + TAXOL 80 MG/M2 D1,8,15 every 28 days (01/26/23 - ) Lisa for the prostate cancer ONCOLOGY HISTORY: Patient with past medical history significant for type 2 diabetes, hypertension, dyslipidemia, history of prostate cancer status post radiation therapy presented with complaint of generalized weakness, fatigue and exhausted with dyspneaonexertion. His hemoglobin was 8.5, WBC count and platelet counts were normal. Reticulocyte counts were 134, ferritin was 22 with normal folic acid and W97yombs. Patient had upper endoscopy done on 07/15/2021 [...] was consistent with adenocarcinoma moderately differentiated overall [place] score was 3+4=7with perineural invasion. Histopathology was [...] size and separation, cribriform and papillary patterns [place] Score (primary + secondary) = 5-6: Moderately well differentiated Nodule #3 (dominant nodule), involves: left mid, left lateral mid, left lateral, left apex, and left lateral apex Dimensions: 2.5 x 1.5 x 2.1 cm HISTOLOGIC TYPE: Adenocarcinoma HISTOLOGIC GRADE ([place]): Primary pattern is: Grade 3: single acini [...] washing: Category: Benign. Final Interpretation: Benign mesothelial cells Interval History: He was admitted to the hospital on [...] the hepatic segment 2 suspicious for metastasis. Patient in has recurrent/metastatic disease after achieving complete remission with the treatment. He can benefit with second-line palliative chemotherapy including combination of Taxol and Cyramza. Discussed with the patient will benefit, risk, side effect toxicity of the treatment. Patient has metastatic incurable disease and role of any further treatment is supportive and palliative. After detailed discussion he agreed to proceed with treatment and signed the consent form. HISTORY OF PRESENT ILLNESS: Heath Austin is a 77 year old male with a history as outlined above. Currently here for acute visit today. Patient got severely nauseous on the way from from treatment on Sunday. Began vomiting when he got home and continued all evening. Never took anything for nausea that day other than 8 mg ofzofran PO he received as premed. Also had some traveling joint pains that started around the same time. Did improve with some tylenol. [place] much better the next day and continues to feel improved today. Is eating small meals throughout the day. Pushing fluids. Confirms taking omeprazole and sucralfate as ordered by GI. Has not been checking his blood sugars at home. Admits though that he is not taking his medications at home regularly. Is not taking the oral iron. Past Medical History: Diagnosis Date Actinic keratosis [...] DIAGNOSTIC performedby Roz Tracey MD at ENDOSCOPY [facility] COLONOSCOPY, DIAGNOSTIC (RECTUM) 07/15/2021 hyperplastic polyp, diverticulosis / COLONOSCOPY FLEXIBLE PROXIMAL DIAGNOSTIC performed by Roz Clark MD at ENDOSCOPY [facility] EGD, FLEXIBLE, DIAGNOSTIC 07/15/2021 Malignancy of the GEJ - Invasive adenocarcinoma / ESOPHAGOGASTRODUODENOSCOPY (EGD), FLEXIBLE, TRANSORAL, DIAGNOSTIC performed by Roz Tracey MD at ENDOSCOPY [facility] EGD, W/ENDOSCOPIC US 08/02/2021 mass lower third of esophagus and extending to the mid stomach consistant with previously diagnosedadenocarcinoma/ESOPHAGOGASTRODUODENOSCOPY (EGD), FLEXIBLE, TRANSORAL, ENDOSCOPIC ULTRASOUND performed by Brendan Gomez MD at ENDOSCOPY [facility] INSER TUNN ACC DEV;5 YRS/OLDER N/A 08/10/2021 INSERT TUNNELED CENTRAL VENOUS ACCESS WITH SUBQ PORT performed by Alexander Rodriguez MD at OR [facility] KNEE ARTHROSCOPY, DIAGNOSTIC 1989 Knee Arthroscopy right LAPAROSCOPY,BIOPSY N/A 08/10/2021 LAPAROSCOPY WITH BIOPSY performed by Alexander Rodriguez MD at OR [facility] NEEDLE/PUNCH BIOPSY OF PROSTATE 01/05/2011 BIOPSY PROSTATE NEEDLE performed by EYAD LANDRUM at [facility] PROSTATECTOMY, RETROPUBIC RADICAL, LAP 10/30/2011 ROBOTIC LAPAROSCOPIC PROSTATECTOMY RETROPUBIC RADICAL performed by EYAD LANDRUM at OR [facility] REMOVAL OF TONSILS, UNDER AGE 12 Tonsillectomy REPAIR INITIAL INCISIONAL HERNIA 04/18/2012 Laparoscopic ventral hernia repair with 4 x [address] Adams 04/18/12 US ECHO TRANSRECTAL/PROSTATE 01/05/2011 ULTRASOUND TRANSRECTAL performed by EYAD LANDRUM at [facility] Social History Tobacco Use Smoking status: Never Smokeless tobacco: Never Vaping Use Vaping Use: Never used Substance and Sexual Activity Alcohol use: No Drug use: No Review of patient's allergies indicates: Allergen Reactions Amlodipine dizziness Codeine Sulfate Other (Please comment) hyperactivity Hctz [Hydrochlorothiazide] hypercalcemia Oxaliplatin Infusion related reaction Current Outpatient Medications Medication Sig Dispense Refill [...] mouth 2 times a day. As needed [place]-3 Fatty Acids (FISH OIL) 1000 MG Capsule [...] No current facility-administered medications for this visit. REVIEW OF SYSTEMS: See HPI - otherwise negative OBJECTIVE: Filed Vitals: 01/30/23 0855 BP: 151/78 Pulse: 81 Resp: 16 Temp: 36.3 C (97.4 F) TempSrc: Tympanic SpO2: 96% Weight: 83.4 kg (183 lb 12.8 oz) Wt Readings from Last 5 Encounters: 01/30/23 83.4 kg (183 lb 12.8 oz) 01/26/23 84 kg (185 lb 3.2 oz) 01/08/23 85.9 kg (189 lb 6.4 oz) 12/27/22 88.1 kg (194 lb 4.8 oz) 11/29/22 88.5 kg (195 lb 3.2 oz) PHYSICAL EXAM: ECOG: Performance Status 1 = 80-90% Symptoms but nearly ambulatory General Appearance: No acute distress, pale HEENT: Normal - No oral or pharyngeal masses, ulceration or thrush noted Lymph Nodes: Normal - No palpable lymph nodes in the neck or supraclavicular areas Lungs/Thorax: Normal - Clear to auscultation Heart: Normal - Regular rate and rhythm, normal S1, S2, no appreciable murmurs Pulses/Extremities: Normal - 2+ throughout and symmetrical, no edema Abdomen: Normal - Soft, nontender, bowel sounds present, no appreciable hepatosplenomegaly, no palpable masses Neurologic: Normal - Grossly intact LABS: Results for orders placed or performed in visit on 01/30/23 COMPREHENSIVE METABOLIC PANEL Result Value Ref Range BUN 27 (H) 6 - 20 mg/dL Creatinine 1.8 (H) 0.6 - 1.2 mg/dL Estimated Glomerular Filtration Rate 38 (L) >=60 mL/min Sodium 137 135 - 146 mmol/L Potassium 4.4 3.5 - 5.1 mmol/L Chloride 102 98 - 107 mmol/L CO2 23 22 - 32 mmol/L Anion Gap 12 7 - 15 mmol/L Glucose 303 (H) 70 - 120 mg/dL Albumin 4.2 3.8 - 5.0 g/dL AST 15 10 - 50 U/L Alkaline Phosphatase 95 35 - 130 U/L Bilirubin, Total 0.3 <=1.2 mg/dL Calcium 9.3 8.4 - 10.2 mg/dL Protein 7.3 6.0 - 8.3 g/dL ALT 11 10 - 50 U/L CBC Result Value Ref Range WBC 5.42 4.00 - 10.80 K/uL RBC 3.25 4.50 - 5.25 M/uL HGB 9.9 (L) 14.0 - 16.8 g/dL HCT 32.1 (L) 40.0 - 48.4 % MCV 98.8 82.0 - 99.5 fL MCH 30.5 27.0 - 34.0 pg MCHC 30.8 32.0 - 36.0 g/dL RDW 15.5 11.5 - 15.5 % PLT 152 140 - 400 K/uL MPV 8.9 6.6 - 11.1 fL DIFFERENTIAL, AUTOMATED Result Value Ref Range WBC 5.42 4.00 - 10.80 K/uL Neutrophils % 74.4 40.0 - 75.0 % Lymphocytes % 18.6 18.0 - 42.0 % Monocytes % 4.2 1.0 - 11.0 % Eosinophils % 2.6 0.0 - 6.0 % Basophils % 0.2 0.0 - 2.0 % Absolute Neutrophils 4.03 1.80 - 7.70 K/uL Absolute Lymphocytes 1.01 1.00 - 4.80 K/ul Absolute Monocytes 0.23 0.00 - 1.10 K/uL Absolute Eosinophils 0.14 0.00 - 0.70 K/uL Absolute Basophils 0.01 0.00 - 0.20 K/uL IMPRESSION/PLAN: Metastatic esophageal cancer Chemotherapy induced anemia Acute chemotherapy induced nausea/vomiting DM type II Patient received C1D1 of ramucirumab and taxol last Sunday Despite receiving 8 mg Zofran PO as premed became severely nauseous on the drive home and vomited multiple times that evening Will place order to change pretreatment antiemetic to [place] Patient scheduled for 1L NSS over two hours today Confirmed patient taking dexamethasone as prescribed prior to treatment Also encouraged patient to start taking 8 mg PO Zofran 8 hours starting night after treatment and continue ATC through the weekend Continue to take omeprazole and sucralfate as prescribed Patient admits to noncompliance with his prescription medications including his metformin. Glucose 303 on lab work from today. Order placed for MTM pharmacy referral to assist with diabetic management while patient receiving chemotherapy. Hgb stable at 9.9 today. Creatinine improved to 108. Patient unable to tolerate oral iron. Will addon iron screen, ferritin, vitamin b12 and folic acid to assess for any deficiencies attributing to anemia. RTC as scheduled LYLE Bautista documented in this encounter Nursing Notes * Venecia Carlin CMA - 01/30/2023 8:55 AM EDT Patient identifed by name and birthdate Do you have any concerns about pain management for today's visit? Yes. Patient instructed to discuss pain concerns with provider during the visit today Living Will or Advance Directive for Health Care as noted on the problem list. [employer] is a way you can talk to your provider on line through e-mail. Would you like to sign up? I can activate it for you? ALREADY ACTIVE Filed Vitals: 01/30/23 0855 BP: 151/78 Pulse: 81 Resp: 16 Temp: 36.3 C (97.4 F) TempSrc: Tympanic SpO2: 96% Weight: 83.4 kg (183 lb 12.8 oz) Patient was instructed to not get up on the exam table/exam chair until directed and assisted by their provider; patient is to remain seated in the chair/ wheelchair/ exam table/ exam chair for fall prevention and safety reasons. Patient is aware to have assistance to step down off exam table/exam chair with personnel. Patient voiced full comprehension of instructions. Distress Score: 3 NOTE: Stated no problems after 1st infusion, but the 2nd infusion on 01/26 by time he got home was really sick, nauseated and just not feeling well documented in this encounter Plan of Treatment Upcoming Encounters Date Type Specialty Care Team Description 02/01/2023 Laboratory Laboratory [place], Lab Scenery [address] [facility] [place] [address] 02/02/2023 Hem/Onc Treatment Hematology Oncology [place], Chair 7 Hem Onc Sc[address] [place] [address] 02/08/2023 [facility], Lab Scenery [address] [facility] [place] [address] 02/09/2023 Hem/Onc Treatment Hematology Oncology [place], Chair 2 Hem Onc Scenery [address] [facility] [place] [address] 02/21/2023 Laboratory Laboratory [place], Lab Scenery [address] [facility] [place] [address] 02/21/2023 Office Visit [facility]ematology [facility]cology [facility] [address] [facility] [address] 02/22/2023 Hem/Onc Treatment Hematology Oncology [place], Chair 3 Hem Onc Scenery [address] [place] [address] 04/04/2023 Office Visit Urology Cm Rhodes MD [address] [place] [id number] Scheduled Orders Name Type Priority Associated Diagnoses Orde r Schedule IRON SCREEN, INCLUDING TIBC Lab Routine Anemia, unspecified type Encounter for antineoplastic chemotherapy Ordered: 01/31/2023 FERRITIN Lab Routine Anemia, unspecified type Encounter for antineoplastic chemotherapy Ordered: 01/31/2023 VITAMIN B12 Lab Routine Anemia, unspecified type Encounter for antineoplastic chemotherapy Ordered: 01/31/2023 FOLIC ACID Lab Routine Anemia, unspecified type Encounter for antineoplastic chemotherapy Ordered: 01/31/2023 Scheduled Referrals Name Type Priority Associated Diagnoses Orde r Schedule PHARMACIST MEDS THERAPY MGMT REFERRAL OP Referral Within 3 days (urgent) Type 2 diabetes mellitus with stage 3b chronic kidney disease, without long-term current use of insulin (HCC) Ordered: 01/30/2023 Health Maintenance Due Date Last Done Comments [...] this encounter Medical Devices Implanted Type Area C Unix Developer Device Identifier Shelf Expiration Date Model / Serial / Lot Cath Power Port 6fr Clearvue - [id number] Implanted:Qty : 1 on 08/10/2021 by Alexander Rodriguez MD at [facility] Left: Subclavian CR BARD : PERIPHERAL VASCULAR 08/21/2021 [id number] / / documented as of this encounter Visit Diagnoses Diagnosis 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 Care Teams Bottle House Pumper Relationship Specialty Start Date End Date Hortencia Leal PA-C [address] [facility] [place] [address] PCP - General Physician Rolling Machine Operator 02/08/18 documented as of this encounter
--- OUTSIDE RECORDS SUMMARY | 2023-06-27 07:40 | External Medical Summary | Summary of Care ---
Author Name Unknown Organization [facility] Address [address] [facility] [place] [address] Phone [phone] Care Team Providers Care Geographic Analyst Name Role Phone Hortencia Leal PA-C Primary Care Provid er Reason for Visit * Reason Comments Outpatient Testing Encounter Details Date Type Department Care Team Description 02/05/2023 Laboratory Laboratory [place] Maggie Castañeda [address] [place] [id number] [place], Lab Scenery [address] [place] [address] Anemia, unspecified type Allergies Active Allergy Reactions Severity Noted Date [...] times a day. As needed 0 Active [place]-3 Fatty Acids (FISH OIL) 1000 MG Capsule [...] Specialty Care Team Description 02/08/2023 Laboratory Laboratory [place], Lab Scenery [address] [facility] [place] [address] 02/09/2023 Hem/Onc Treatment Hematology Oncology [place], Chair 2 Hem [facility] [address] 02/21/2023 Laboratory Laboratory [place], Lab [facility] [address] [facility] [place] [address] 02/21/2023 Office Visit [facility]ematology [facility]cology [facility] [address] [facility] [address] 02/22/2023 Hem/Onc Treatment Hematology Oncology [place], Chair 3 Hem Onc Scenery [address] [facility] [place] [address] 04/04/2023 Office Visit Urology Cm Rhodes MD [address] [place] [address] Pending Results Name Type Priority Associated Diagnoses Date /Time CBC WITH WBC DIFFERENTIAL Lab STAT Anemia, unspecified type 02/05/2023 10:39 AM EDT CBC Lab STAT Anemia, unspecified type 02/05/2023 10:39 AM EDT DIFFERENTIAL, AUTOMATED Lab STAT Anemia, unspecified type 02/05/2023 10:39 AM EDT Health Maintenance Due Date Last [...] this encounter Medical Devices Implanted Type Area Central Sterile Supply Technician Device Identifier Shelf Expiration Date Model / Serial / Lot Cath Power Port 6fr Clearvue - [id number] Implanted:Qty : 1 on 08/10/2021 by Alexander Rodriguez MD at OR [facility] Left: Subclavian CR BARD : PERIPHERAL VASCULAR 08/21/2021 [id number] / / documented as of this encounter Visit Diagnoses Diagnosis Anemia, unspecified type documented in this encounter Advance Directives Latest [...] and were consensually agreed upon. Care Teams Geographic Analyst Relationship Specialty Start Date End Date Hortencia Leal PA-C [address] [place] [address] PCP - General Physician Package Dyeing Machine Operator 02/08/18 documented as of this encounter
--- OUTSIDE RECORDS SUMMARY | 2023-06-27 07:40 | External Medical Summary ---
Author Name Unknown Address Unknown Organization K09:[facility] [place] [address] Laboratory Report Ordering Provider Test Date Status SHAY CH 02/08/2023 10:20:46 Final Observation Date Value Abnormality Reference (Units ) Status WBC, Total 02/08/2023 10:20:46 5.47 4.00-10.8 0 (K/uL) Final RBC 02/08/2023 10:20:46 3.45 4.50-5.25 (M/uL) Final Hemoglobin 02/08/2023 10:20:46 10.0 Below low normal 14 .0-16.8 (g/dL) Final HCT 02/08/2023 10:20:46 34.0 Below low normal 40. 0-48.4 (%) Final MCV 02/08/2023 10:20:46 98.6 82.0-99.5 (fL) Final MCH 02/08/2023 10:20:46 29.0 27.0-34.0 (pg) Final MCHC 02/08/2023 10:20:46 29.4 32.0-36.0 (g/dL) Final RDW 02/08/2023 10:20:46 16.4 11.5-15.5 (%) Final Platelets 02/08/2023 10:20:46 181 140-400 (K /uL) Final MPV 02/08/2023 10:20:46 9.0 6.6-11.1 ( fL) Final Performing Location [facility] [place] [address]
--- OUTSIDE RECORDS SUMMARY | 2023-06-27 07:40 | External Medical Summary | Summary of Care ---
Author Name Unknown Organization [facility] Address 100 [facility] [place] [address] Phone [phone] Care Team Providers Care Scrap Metal Collector Name Role Phone Hortencia Leal PA-C Primary Care Provid er Encounter Details Date Type Department Care Team Description 02/02/2023 Telephone Hematology/Oncology Treatment, [address] [place] [address] Nik Melo MD 200 [place] [address] Allergies Active Allergy Reactions Severity Noted Date [...] times a day. As needed 0 Active [place]-3 Fatty Acids (FISH OIL) 1000 MG Capsule [...] * Telephone Encounter - TANI Johnson - 02/02/2023 2:22 PM EDT Patient has been added on for lab work for 02/05/23 per nursing. Done. * Telephone Encounter - Paty Langford RN - 02/02/2023 1:57 PM EDT RN called and tried to get in touch with patient but no answer. RN contacted sister (also gives patient rides) to let her know patient will need to have labs completed on Monday 02/05 to recheck CBCD since hgb was decreasing further. Dr. Mccray would like patient to return for repeat CBCD 02/05. Patient prefers to come to [place] for labs and Linda (sister) is agreeable to bring patient for lab appt that day. Since Linda gives patient rides to appts, she would be able to bring patient in around 11am to [facility]. Scheduling: Please make patient a lab appt for Monday 02/05 for "CBCD" at 11am. Linda Morgan aware appt will be set up for this time. documented in this encounter Plan of Treatment Upcoming Encounters Date Type Specialty Care Team Description 02/05/2023 Laboratory Laboratory [place], Lab Scenery [address] [place] [address] 02/08/2023 [facility] Lab Scenery 200 [facility] [place] [place] [address] 02/09/2023 Hem/Onc Treatment Hematology Oncology [place], Chair 2 Hem Onc Scenery 200 [facility] [address] 02/21/2023 [facility], Lab Scenery 200 [facility] [place] [address] 02/21/2023 Office Visit Hematology Oncology Nik Melo MD [address] [place] [facility] [place] [address] 02/22/2023 Hem/Onc Treatment Hematology Oncology [place], Chair 3 Hem Onc Scenery 200 [place] [address] 04/04/2023 Office Visit Urology Cm Rhodes MD [address] [address] [place] [address] Health Maintenance Due Date Last [...] this encounter Medical Devices Implanted Type Area Engraver Signature Device Identifier Shelf Expiration Date Model / Serial / Lot Cath Power Port 6fr Clearvue - [id number] Implanted:Qty : 1 on 08/10/2021 by Alexander Rodriguez MD at [place] [facility] [place] Left: Subclavian CR BARD : PERIPHERAL VASCULAR 08/21/2021 [id number] / / documented as of this encounter [...] and were consensually agreed upon. Care Teams Scrap Metal Collector Relationship Specialty Start Date End Date Hortencia Leal PA-C [address] [place] [address] PCP - General Physician Personal Financial Advisor 02/08/18 documented as of this encounter
--- OUTSIDE RECORDS SUMMARY | 2023-06-27 07:40 | External Medical Summary ---
Author Name Unknown Address Unknown Organization [id number]:[facility] [place] [address] Laboratory Report Ordering Provider Test Date Status SHAY CH 02/08/2023 10:20:46 Final Observation Date Value Abnormality Reference (Units ) Status BUN 02/08/2023 10:20:46 28 Above high normal 6-20 (mg/dL) Final Creatinine 02/08/2023 10:20:46 2.1 Above high normal 0.6-1.2 (mg/dL) Final Glomerular filtration rate/1.73 sq M.predicted [Volume Rate/Area] in Serum, Plasma or Blood by Creatinine-based formula (CKD-EPI) 02/08/2023 10:20:46 33 Below low normal >=60 (mL/min) Final Performing Location [facility] [place] [address]
--- OUTSIDE RECORDS SUMMARY | 2023-06-27 07:40 | External Medical Summary ---
Author Name Unknown Address Unknown Organization [id number]:[facility] [place] [address] Laboratory Report Ordering Provider Test Date Status SHAY CH 02/01/2023 10:14:41 Final Observation Date Value Abnormality Reference (Units ) Status WBC, Total 02/01/2023 10:14:41 4.64 4.00-10.8 0 (K/uL) Final RBC 02/01/2023 10:14:41 3.05 4.50-5.25 (M/uL) Final Hemoglobin 02/01/2023 10:14:41 9.1 Below low normal 14 .0-16.8 (g/dL) Final HCT 02/01/2023 10:14:41 30.6 Below low normal 40. 0-48.4 (%) Final MCV 02/01/2023 10:14:41 100.3 82.0-99.5 (fL) Final MCH 02/01/2023 10:14:41 29.8 27.0-34.0 (pg) Final MCHC 02/01/2023 10:14:41 29.7 32.0-36.0 (g/dL) Final RDW 02/01/2023 10:14:41 15.7 11.5-15.5 (%) Final Platelets 02/01/2023 10:14:41 152 140-400 (K /uL) Final MPV 02/01/2023 10:14:41 8.7 6.6-11.1 ( fL) Final Performing Location [facility] [place] [address]
--- OUTSIDE RECORDS SUMMARY | 2023-06-27 07:40 | External Medical Summary ---
Author Name Unknown Address Unknown Organization [id number]:[facility] [place] [address] Laboratory Report Ordering Provider Test Date Status SHAY CH 02/01/2023 10:14:41 Final Observation Date Value Abnormality Reference (Units ) Status BUN 02/01/2023 10:14:41 26 Above high normal 6-20 (mg/dL) Final Creatinine 02/01/2023 10:14:41 2.0 Above high normal 0.6-1.2 (mg/dL) Final Glomerular filtration rate/1.73 sq M.predicted [Volume Rate/Area] in Serum, Plasma or Blood by Creatinine-based formula (CKD-EPI) 02/01/2023 10:14:41 34 Below low normal >=60 (mL/min) Final Performing Location [facility] [place] [address]
--- OUTSIDE RECORDS SUMMARY | 2023-06-27 07:40 | External Medical Summary ---
Author Name Unknown Address Unknown Organization [id number]:[facility] [place] [address] Laboratory Report Ordering Provider Test Date Status CHRISTOPHE ORNELAS 02/05/2023 10:39:53 Final Observation Date Value Abnormality Reference (Units ) Status SYNC LEUKOCYTES IN BLOOD BY AUTOMATED COUNT 02/05/2023 10:39:53 5.50 4.00-10.80 (K/uL) Final Segs 02/05/2023 10:39:53 62.5 40.0-75.0 (%) Final Lymphs % 02/05/2023 10:39:53 25.5 18.0-42.0 (%) Final Monos 02/05/2023 10:39:53 11.1 Above high normal 1.0-11.0 (%) Final Eosinophils 02/05/2023 10:39:53 0.7 0.0-6.0 (%) Final Basos 02/05/2023 10:39:53 0.2 0.0-2.0 (%) Final Absolute Segs 02/05/2023 10:39:53 3.44 1.80-7.70 (K/uL) Final Lymphs, absolute 02/05/2023 10:39:53 1.40 1.00-4.80 (K/ul) Final Monos, Abs 02/05/2023 10:39:53 0.61 0.00-1.10 (K/uL) Final Eos, Abs 02/05/2023 10:39:53 0.04 0.00-0.70 (K/uL) Final Basos, Abs 02/05/2023 10:39:53 0.01 0.00-0.20 (K/uL) Final Performing Location [facility] [place] [address]
--- OUTSIDE RECORDS SUMMARY | 2023-06-27 07:40 | External Medical Summary | Summary of Care ---
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 documented as of this encounter (statuses as of 02/01/2023) Immunizations Name Administration Dates Next Due COVID-19 [...] Encounters Date Type Specialty Care Team Description 02/02/2023 Hem/Onc Treatment Hematology Oncology [place], Chair 7 Hem Onc Scenery 200 [facility] [place] [address] 02/08/2023 Laboratory Laboratory [place], Lab Scenery 200 [facility] [place] [address] 02/09/2023 Hem/Onc Treatment Hematology Oncology [place], Chair 2 Hem Onc Scenery 200 [facility] [place] [address] 02/21/2023 Laboratory Laboratory [place], Lab Scenery [address] [facility] [place] [address] 02/21/2023 Office Visit Hematology Oncology Nik Melo MD [address] [place] [address] 02/22/2023 Hem/Onc Treatment Hematology Oncology [place], Chair 3 Hem Onc Scenery 200 [facility] [place] [address] 04/04/2023 Office Visit Urology Cm Rhodes MD [address] [place] [address] [place] [address] Pending Results Name Type Priority Associated Diagnoses Date /Time COMPREHENSIVE METABOLIC PANEL Lab STAT 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) 02/01/2023 10:14 AM EDT Health Maintenance Due Date Last [...] this encounter Medical Devices Implanted Type Area Social Problems Specialist Device Identifier Shelf Expiration Date Model / Serial / Lot Cath Power Port 6fr Clearvue - [id number] Implanted:Qty : 1 on 08/10/2021 [place] Rodriguez [place] [facility] [place]: Subclavian CR BARD : PERIPHERAL VASCULAR 08/21/2021 [id number] / / documented as of this encounter Procedures Procedure Name Priority Date/Time Associated Diagnosis Comments DIFFERENTIAL, AUTOMATED STAT 02/01/2023 10:14 AM EDT 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) CBC WITH WBC DIFFERENTIAL STAT 02/01/2023 10:14 AM EDT 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) CBC STAT 02/01/2023 10:14 AM EDT 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) documented in this encounter Results * DIFFERENTIAL, AUTOMATED (02/01/2023 10:14 AM EDT) WBC 4.64 4.00 - 10.80 K/uL 02/01/2023 10:28 AM EDT [facility] 56-02 Neutrophils % 68.6 40.0 - 75.0 % 02/01/2023 10:28 AM EDT [facility] 56-02 Lymphocytes % 22.8 18.0 - 42.0 % 02/01/2023 10:28 AM EDT [facility] 56-02 Monocytes % 5.6 1.0 - 11.0 % 02/01/2023 10:28 AM EDT [facility] 56-02 Eosinophils % 2.8 0.0 - 6.0 % 02/01/2023 10:28 AM EDT [facility] 56-02 Basophils % 0.2 0.0 - 2.0 % 02/01/2023 10:28 AM EDT [facility] 56-02 Absolute Neutrophils 3.18 1.80 - 7.70 K/uL 02/01/2023 10:28 AM T [facility] 56-02 Absolute Lymphocytes 1.06 1.00 - 4.80 K/ul 02/01/2023 10:28 AM EDT [facility] 56-02 Absolute Monocytes 0.26 0.00 - 1.10 K/uL 02/01/2023 10:28 AM EDT [facility] 56-02 Absolute Eosinophils 0.13 0.00 - 0.70 K/uL 02/01/2023 10:28 AM EDT [facility] 56-02 Absolute Basophils 0.01 0.00 - 0.20 K/uL 02/01/2023 10:28 AM T [facility] 56-02 Blood Venous blood specimen / Unknown Venipuncture / Unknown 02/01/2023 10:14 AM EDT 02/01/2023 10:14 AM EDT Nik Melo MD LAB BLOOD [facility] [address] [place] [address] * (ABNORMAL) CBC (02/01/2023 10:14 AM EDT) [facility] WBC 4.64 4.00 - 10.80 K/uL 02/01/2023 10:28 AM EDT [address] RBC 3.05 4.50 - 5.25 M/uL 02/01/2023 10:28 AM EDT [place] [address] HGB 9.1(L) 14.0 - 16.8 g/dL 02/01/2023 10:28 AM EDT [address] HCT 30.6(L) 40.0 - 48.4 % 02/01/2023 10:28 AM EDT [address] MCV 100.3 82.0 - 99.5 fL 02/01/2023 10:28 AM EDT [address] MCH 29.8 27.0 - 34.0 pg 02/01/2023 10:28 AM EDT [address] MCHC 29.7 32.0 - 36.0 g/dL 02/01/2023 10:28 AM EDT [facility] 56 RDW 15.7 11.5 - 15.5 % 02/01/2023 10:28 AM EDT [facility] 56 PLT 152 140 - 400 K/uL 02/01/2023 10:28 AM EDT [facility] 56 MPV 8.7 6.6 - 11.1 fL 02/01/2023 10:28 AM EDT [facility] 56 Blood Venous blood specimen / Unknown Venipuncture / Unknown 02/01/2023 10:14 AM EDT 02/01/2023 10:14 AM EDT Nik Melo MD LAB BLOOD [facility] [place] [facility] [address] documented in this encounter Visit Diagnoses Diagnosis [...] and were consensually agreed upon. Care Teams Senior Technical Manager Relationship Specialty Start Date End Date Hortencia Leal PA-C [facility] [facility] [address] PCP - General Physician Director Fundraising 02/08/18 documented as of this encounter
--- OUTSIDE RECORDS SUMMARY | 2023-06-27 07:40 | External Medical Summary ---
Author Name Unknown Address Unknown Organization K09:[facility] [place] [address] Laboratory Report Ordering Provider Test Date Status SHAY CH 02/01/2023 10:14:41 Final Observation Date Value Abnormality Reference (Units ) Status SYNC LEUKOCYTES IN BLOOD BY AUTOMATED COUNT 02/01/2023 10:14:41 4.64 4.00-10.80 (K/uL) Final Segs 02/01/2023 10:14:41 68.6 40.0-75.0 (%) Final Lymphs % 02/01/2023 10:14:41 22.8 18.0-42.0 (%) Final Monos 02/01/2023 10:14:41 5.6 1.0-11.0 (%) Final Eosinophils 02/01/2023 10:14:41 2.8 0.0-6.0 (%) Final Basos 02/01/2023 10:14:41 0.2 0.0-2.0 (%) Final Absolute Segs 02/01/2023 10:14:41 3.18 1.80-7.70 (K/uL) Final Lymphs, absolute 02/01/2023 10:14:41 1.06 1.00-4.80 (K/ul) Final Monos, Abs 02/01/2023 10:14:41 0.26 0.00-1.10 (K/uL) Final Eos, Abs 02/01/2023 10:14:41 0.13 0.00-0.70 (K/uL) Final Basos, Abs 02/01/2023 10:14:41 0.01 0.00-0.20 (K/uL) Final Performing Location [facility] [place] [place] [address]
--- OUTSIDE RECORDS SUMMARY | 2023-06-27 07:41 | External Medical Summary ---
Author Name Unknown Address Unknown Organization K01:[facility] [place] - [address] [place] [address] Laboratory Report Ordering Provider Test Date Status JOSIE MURDOCK 01/30/2023 08:00:46 Final Observation Date Value Abnormality Reference (Units ) Status Folic Acid 01/30/2023 08:00:46 12.9 >4.5 (ng/ mL) Final Performing Location [facility] - [address] [place] [address]
--- OUTSIDE RECORDS SUMMARY | 2023-06-27 07:41 | External Medical Summary ---
Author Name Unknown Address Unknown Organization K01:LABORATORY [facility] [place] - [address] [place] [address] Laboratory Report Ordering Provider Test Date Status JOSIE MURDOCK 01/30/2023 08:00:46 Final Observation Date Value Abnormality Reference (Units ) Status Iron 01/30/2023 08:00:46 78 45-176 (ug /dL) Final Iron-binding capacity 01/30/2023 08:00:46 376 250-425 (ug/dL) Final Transferrin Sat % 01/30/2023 08:00:46 21 15 -55 (%) Final Performing Location LABORATORY [facility] [place] - [address] [place] [address]
--- OUTSIDE RECORDS SUMMARY | 2023-06-27 07:41 | External Medical Summary ---
Author Name Unknown Address Unknown Organization K01:[facility] [place] [address] [place] [address] Laboratory Report Ordering Provider Test Date Status JOSIE MURDOCK 01/30/2023 08:00:46 Final Observation Date Value Abnormality Reference (Units ) Status Vitamin B12 01/30/2023 08:00:46 833 857-6299 (pg/mL) Final Performing Location [facility] - [address] [place] [address]
--- OUTSIDE RECORDS SUMMARY | 2023-06-27 07:41 | External Medical Summary | Summary of Care ---
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 Pt tolerated well. Goals: pt to remain free from injury Possible barriers to meeting goals: ambulation with IV pole, pt uses restroom frequently Stability of the patient: Moderately stable - low risk of patient condition declining or worsening Summary regarding today's goals: Met: pt remained free from injury Pt discharged in stable condition. * Eboni Stevens RN - 01/30/2023 11:01 AM EDT Ch 7. Pt arrived today for hydration, following his appt with provider. Pt's labs are improved to Cr 1.8. Pt states he feels he will benefit from hydration today. Safety and Risk for Injury Patient will remain free from injury. Ensure appropriate safety devices are available. Provide and maintain safe environment. documented in this encounter Plan of Treatment Upcoming Encounters Date Type Specialty Care Team Description 02/01/2023 Laboratory Laboratory [place], Lab Scenery [address] [facility] [place] [place] [address] 02/02/2023 Hem/Onc Treatment Hematology Oncology [place], Chair 7 Hem Onc Scenery [address] [place] [facility] [address] 02/08/2023 Laboratory Laboratory [place], Lab Scenery 200 [facility], [place] [address] 02/09/2023 Hem/Onc Treatment Hematology Oncology [place], Chair 2 Hem Onc Scenery [address] [facility], [place] [address] 02/21/2023 Laboratory Laboratory [place], Lab Scenery [address] [place] [facility] [place] [place] [address] 02/21/2023 Office Visit Hematology Oncology Nik Melo MD [address] [facility] [place] [address] 02/22/2023 Hem/Onc Treatment Hematology Oncology [place], Chair 3 Hem Onc Scenery [address] [facility] [address] 04/04/2023 Office Visit Urology Cm Rhodes MD [address] [address] [place] [address] Health Maintenance Due Date [...] this encounter Medical Devices Implanted Type Area Lead Nitrate Processor Device Identifier Shelf Expiration Date Model / Serial / Lot Cath Power Port 6fr Clearvue - [id number] Implanted:Qty : 1 on 08/10/2021 by Alexander Rodriguez MD at [place] [facility] [place] Left: Subclavian CR BARD : PERIPHERAL VASCULAR 08/21/2021 [id number] / / documented as of this encounter [...] Lock, PRN Other, IV Flush, Starting on Sun01/30/23 at 0942, Until Sun01/31/23 at 0941, For 24 hours, Do not flush if lock, PICC, or central line not in place; IV infusing or unable to flush. Given 01/30/2023 11:41 AM EDT 500 Units sodium chloride 0.9 % flush/inj 10 mL 10 mL, IV Push, PRN Other, IV Flush, Starting on Sun01/30/23 at 0942, Until Sun01/31/23 at 0941, For 24 hours, Do not flush if lock, PICC, or central line not in place; IV infusing or unable to flush. Given 01/30/2023 11:41 AM EDT 10 mL Inactive Administered Medications - up to 3 most recent administrations Medication Order MAR Action Action Date Dose Rate Site NSS infusion FOR HYDRATION Intravenous, at 500 mL/hr Administer over 2 Hours, ONCE, 1 dose, On Sun01/30/23 at 1045 Start Infusion 01/30/2023 9:43 AM EDT 1,000 mL 500 mL/hr documented [...] and were consensually agreed upon. Care Teams Regional Account Executive Relationship Specialty Start Date End Date Hortencia Leal PA-C [address] [facility] [address] PCP - General Physician Business Intelligence Administrator 02/08/18 documented as of this encounter
--- OUTSIDE RECORDS SUMMARY | 2023-06-27 07:41 | External Medical Summary | Summary of Care ---
Author Name Unknown Organization [facility] Address 100 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 documented as of this encounter (statuses as of 01/26/2023) Immunizations Name Administration Dates Next Due COVID-19 [...] Encounters Date Type Specialty Care Team Description 01/26/2023 Hem/Onc Treatment Hematology Oncology [place], Chair [address] [address] Arrived 02/21/2023 Office Visit Hematology Oncology Nik Melo MD 200 [place] [address] 04/04/2023 Office Visit Urology Cm Rhodes MD 27 [facility] [address] [place] [address] Pending Results Name Type Priority Associated Diagnoses Date /Time URINALYSIS, REFLEX TO MICROSCOPIC Lab Routine 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 Care Teams Brine Tank Operator Relationship Specialty Start Date End Date Hortencia Leal PA-C [address] [facility] [address] PCP - General Physician Assistant Produce Manager 02/08/18 documented as of this encounter
--- OUTSIDE RECORDS SUMMARY | 2023-06-27 07:41 | External Medical Summary ---
Author Name Unknown Address Unknown Organization [id number]:[facility] [place] [address] Laboratory Report Ordering Provider Test Date Status SHAY CH 01/30/2023 08:00:46 Final Observation Date Value Abnormality Reference (Units ) Status BUN 01/30/2023 08:00:46 27 Above high normal 6-20 (mg/dL) Final Creatinine 01/30/2023 08:00:46 1.8 Above high normal 0.6-1.2 (mg/dL) Final Glomerular filtration rate/1.73 sq M.predicted [Volume Rate/Area] in Serum, Plasma or Blood by Creatinine-based formula (CKD-EPI) 01/30/2023 08:00:46 38 Below low normal >=60 (mL/min) Final Performing Location [facility] [place] [place] [address]
--- OUTSIDE RECORDS SUMMARY | 2023-06-27 07:41 | External Medical Summary ---
Author Name Unknown Address Unknown Organization K09:[facility] [place] [address] Laboratory Report Ordering Provider Test Date Status SHAY CH 01/30/2023 08:00:46 Final Observation Date Value Abnormality Reference (Units ) Status WBC, Total 01/30/2023 08:00:46 5.42 4.00-10.8 0 (K/uL) Final RBC 01/30/2023 08:00:46 3.25 4.50-5.25 (M/uL) Final Hemoglobin 01/30/2023 08:00:46 9.9 Below low normal 14 .0-16.8 (g/dL) Final HCT 01/30/2023 08:00:46 32.1 Below low normal 40. 0-48.4 (%) Final MCV 01/30/2023 08:00:46 98.8 82.0-99.5 (fL) Final MCH 01/30/2023 08:00:46 30.5 27.0-34.0 (pg) Final MCHC 01/30/2023 08:00:46 30.8 32.0-36.0 (g/dL) Final RDW 01/30/2023 08:00:46 15.5 11.5-15.5 (%) Final Platelets 01/30/2023 08:00:46 152 140-400 (K /uL) Final MPV 01/30/2023 08:00:46 8.9 6.6-11.1 ( fL) Final Performing Location [facility] [place] [address]
--- OUTSIDE RECORDS SUMMARY | 2023-06-27 07:41 | External Medical Summary | Summary of Care ---
Author Name Unknown Organization [facility] Address [address] [facility] [place] [address] Phone [phone] Care Team Providers Care Crib Attendant Name Role Phone Hortencia Leal PA-C Primary Care Provid er Reason for Visit * Reason Onset Date Comments Precert Future 01/30/2023 aloxi Encounter Details Date Type Department Care Team Description 01/30/2023 Telephone Hematology/[address] [id number] Nik Melo MD 200 [place] [address] Precert Future (aloxi) Allergies Active Allergy Reactions [...] times a day. As needed 0 Active [place]-3 Fatty Acids (FISH OIL) 1000 MG Capsule [...] was not controlled with zofran or compazine. [facility] updated. Patient is scheduled for next treatment 02/02/23. Precert: please obtain auth for ALOXI prior to treatment appointment. Thanks! documented in this encounter Plan of Treatment Upcoming Encounters Date Type Specialty Care Team Description 02/01/2023 Laboratory Laboratory [facility] Sc[facility]ery [address] [place] [address] 02/02/2023 Hem/Onc Treatment Hematology Oncology Maddy, Chair 7 Hem Onc Scenery [address] [place] [address] 02/08/2023 Laboratory Laboratory [place], Lab Scenery 200 [facility] [address] 02/09/2023 Hem/Onc Treatment Hematology Oncology [place], Chair 2 Hem Onc Scenery 200 [facility] [address] 02/21/2023 Laboratory Laboratory [facility] Lab Scenery 200 [facility] [address] 02/21/2023 Office Visit Hematology Oncology Nik Melo MD 200 [place] [address] 02/22/2023 Hem/Onc Treatment Hematology Oncology [place], Chair 3 Hem Onc Scenery 200 [facility] [address] 04/04/2023 Office Visit Urology RhodesCm MD [address] [place] [address] Health Maintenance Due Date Last Done Comments [...] this encounter Medical Devices Implanted Type Area Funeral Counselor Device Identifier Shelf Expiration Date Model / Serial / Lot Cath Power Port 6fr Clearvue - [id number] Implanted:Qty : 1 on 08/10/2021 by Alexander Rodriguez MD at [facility] Left: Subclavian CR BARD : PERIPHERAL VASCULAR 08/21/2021 [id number] / / documented as of this encounter [...] and were consensually agreed upon. Care Teams Crib Attendant Relationship Specialty Start Date End Date Hortencia Leal PA-C [address] [facility] [place] [address] PCP - General Physician Hot Stick Worker 02/08/18 documented as of this encounter
--- OUTSIDE RECORDS SUMMARY | 2023-06-27 07:41 | External Medical Summary | Summary of Care ---
Author Name Unknown Organization [facility] Address [address] [facility] [place] [address] Phone [phone] Care Team Providers Care Order Packer Or Packager Name Role Phone Hortencia Leal PA-C Primary Care Provid er Reason for Visit * Reason Onset Date Comments Information 01/29/2023 Encounter Details Date Type Department Care Team Description 01/29/2023 Telephone Hematology/Oncology [facility] [address] [facility] [place] [address] Nik Melo MD 200 [place] [address] Information Allergies Active Allergy Reactions Severity Noted Date Comments Amlodipine 11/02/2020 dizziness Codeine Sulfate Other (Please comment) 10/26/19 11 hyperactivity Hydrochlorothiazide 11/02/2020 hypercalcemia Oxaliplatin 02/09/2022 Infusion related reaction documented as of this encounter (statuses as of 01/29/2023) Medications Medication Sig Dispensed Refills Start Date [...] times a day. 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 Did not leave any further information. Returned patient's call. Patient states he had a bad reaction Sunday night with his treatment he received on Sunday afternoon, was nauseous, had to stop on the side of the road on the way home to throw up, vomited the rest of the night on Sunday and through the weekend. Patient states he is having ache and pain generalizedin body, 5/10 on pain scale today. Not sleeping since Sunday. Very fatigued, weakness, stumbling while walking. Patient was falling asleep during phone call on phone and slurring words. Denies SOB and chest pain. Patient states he last took zofran or compazine this morning, but " he doesn't know what he took he is just so tired." He knows he took compazine over the weekend and omeprazole 40mg. Notified patient so he is aware that omeprazole and ondansetron are different drug classes, patientverbalizes understanding. Heath states he has not vomited today, but he is nauseous. Last vomited Sunday. He has not ate any food today but is drinking a lot of fluids. He would like a callback at [phone] regarding his symptoms because "he cannot take that chemo again." documented in this encounter Plan of Treatment Upcoming Encounters Date Type Specialty Care Team Description 02/01/2023 Laboratory Laboratory [place], Lab Scenery [address] [place] [address] 02/02/2023 Hem/Onc Treatment Hematology Oncology [place], Chair 7 Hem Onc Scenery [address] [place] [address] 02/08/2023 [facility], Lab Scenery 200 [facility] [place] [address] 02/09/2023 Hem/Onc Treatment Hematology Oncology [place], Chair 2 Hem Onc Scenery [address] [place] [address] 02/21/2023 Laboratory [facility], Lab Scenery [address] [place] [address] 02/21/2023 Office Visit Hematology Oncology Nik Melo MD [address] [place] [address] 02/22/2023 Hem/Onc Treatment Hematology Oncology [place], Chair 3 Hem Onc Scenery [address] [place] [address] 04/04/2023 Office Visit Urology RhodesCm MD [address] [place] [...] this encounter Medical Devices Implanted Type Area Chemical Analyst Device Identifier Shelf Expiration Date Model / Serial / Lot Cath Power Port 6fr Clearvue - [id number] Implanted:Qty : 1 on 08/10/2021 by Alexander Rodriguez MD at [facility] Left: Subclavian CR BARD : PERIPHERAL VASCULAR 08/21/2021 [id number] / / documented as of this encounter [...] and were consensually agreed upon. Care Teams Order Packer Or Packager Relationship Specialty Start Date End Date Hortencia Leal PA-C [address] [facility] [address] PCP - General Physician Zinc Plater 02/08/18 documented as of this encounter
--- OUTSIDE RECORDS SUMMARY | 2023-06-27 07:41 | External Medical Summary | Summary of Care ---
Author Name Unknown Organization [facility] Address [address] [facility] [place] [address] Phone [phone] Care Team Providers Care Criminal Intelligence Analyst Name Role Phone Hortencia Leal PA-C Primary Care Provid er Reason for Visit * Reason Onset Date Comments Information 01/29/2023 Encounter Details Date Type Department Care Team Description 01/29/2023 Telephone Hematology/Oncology [facility] [address] Nik Melo MD 200 [place] [address] Information Allergies Active Allergy Reactions Severity Noted [...] times a day. As needed 0 Active [place]-3 Fatty Acids (FISH OIL) 1000 MG Capsule [...] Telephone Encounter - Lakeisha Cortez RN - 01/29/2023 1:18 PM EDT Called patient regarding message below. He states that he does not know know if he can move forwardwith these treatments and he has never been sick like this in his life. Ultimately, today he is feeling better, the nausea and vomiting has resolved. He agreed to lab work at 830, Adeline ALVARENGAat 9 am, and then ?Hydration/electrolytes to follow. Scheduling; please schedule as follows -lab work at 830 am, CBCD CMP Mag - Adeline at 9 am -2 hr 503 appt " ?Hydration/eectrolytes." thanks Adeline: FYI- pt had severe side effects after first cycle of new treatment. Added on for above. * Telephone Encounter - Opal Wesley LPN - 01/29/2023 11:35 AM EDT Patient called [...] fluids. He would like a callback at [phone] regarding his symptoms because "he cannot take that chemo again." documented in this encounter Plan of Treatment Upcoming Encounters Date Type Specialty Care Team Description 01/30/2023 Office Visit Hematology Oncology Adeline Jin CRNP [address] [facility] [place] [address] 02/01/2023 Laboratory Laboratory [place], Lab Scenery [address] [place] [address] 02/02/2023 Hem/Onc Treatment Hematology Oncology [place], Chair 7 Hem Onc Scenery [address] [place] [address] 02/08/2023 Laboratory Laboratory [place], Lab Scenery [address] [place] [address] 02/09/2023 Hem/Onc Treatment Hematology Oncology [place], Chair 2 Hem Onc Scenery [address] [place], [place] [address] 02/21/2023 Laboratory Laboratory Enrique Castañeda Scenery 200 [facility] [place] [address] 02/21/2023 Office Visit Hematology Oncology Nik Melo MD 200 [place] [address] 02/22/2023 Hem/Onc Treatment Hematology Oncology [place], Chair 3 Hem Onc Scenery 200 [facility] [place] [address] 04/04/2023 Office Visit Urology Cm Rhodes MD 27 [facility] [address] [place] [address] Health Maintenance Due Date Last [...] encounter Medical Devices Implanted Type Area Senior Commercial Loan Officer Device Identifier Shelf Expiration Date Model / Serial / Lot Cath Power Port 6fr Clearvue - [id number] Implanted:Qty : 1 on 08/10/2021 by Alexander Rodriguez MD at [facility] Left: Subclavian CR BARD : PERIPHERAL VASCULAR 08/21/2021 [id number] / / documented as of this encounter [...] and were consensually agreed upon. Care Teams Criminal Intelligence Analyst Relationship Specialty Start Date End Date Hortencia Leal PA-C [address] [place] [address] PCP - General Physician Atomic Process Engineer 02/08/18 documented as of this encounter
--- OUTSIDE RECORDS SUMMARY | 2023-06-27 07:41 | External Medical Summary | Summary of Care ---
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) Procedures AK INJECTION, RAMUCIRUMAB AK PACLITAXEL INJECTION Nik Melo MD 200 [facility] [place] [address] Anc Hem/Onc [place] [address] [place] [address] [phone] Referral ID Status Reason Start Date Expiration Date V isits Requested Visits Authorized [id number] Authorized 01/07/2023 09/21/2099 999 999 Encounter Details Date Type Department Care Team Description 01/26/2023 Hem/Onc Treatment Hematology/Oncology Treatment, [address] [place] [address] Maddy, Chair 3 Hem Onc [address] [place] [address] 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 As needed 0 Active [place]-3 Fatty Acids (FISH OIL) 1000 MG Capsule [...] Sign Reading Time Taken Comments Blood Pressure 116/77 01/26/2023 1:00 PM EDT Pulse 91 01/26/2023 1:00 PM EDT Temperature 36.2 C (97.2 F) 01/26/2023 1:00 PM ED T Respiratory Rate 18 01/26/2023 1:00 PM EDT Oxygen Saturation 95% 01/26/2023 1:00 PM EDT Inhaled Oxygen Concentration - - Weight 84 kg (185 lb 3.2 oz) 01/26/2023 1:00 PM EDT Height - - Body Mass Index 31.77 01/16/2023 10:35 AM EDT documented in this encounter Nursing Notes * Paty Langford RN - 01/26/2023 4:14 PM EDT Goals: Patient will remain free from injury. Possible barriers to meeting goals: ambulating with IV pole, age, IVPB Benadryl before treatment Stability of the patient: Moderately stable - low risk of patient condition declining or worsening Summary regarding today's goals: Met: patient remained free of harm today Functional status [...] further needs. * Paty Langford RN - 01/26/2023 1:29 PM EDT Chair 2. Patient here today to start new treatment with Cyramza/Taxol. Patient did not have any questions/concners about medication at this time. RN educated about PRN nausea medications, labs for these infusions including U/A, length of these infusions, decreasing infusion time of Cyramza to 30 minutes after 1st dose, premedications, appointments/cycles, etc. Patient communicated understanding regarding education. Port accessed without difficulty. Patient os feeling well overall today without any acute issues or complaints. Patient's labs are overall WNL for tx in comparison to his baseline. Dr. Melo made aware of labs including slight increase in Cr level to 2.0 and decreased hgb/hct. Otherwise, labs are okay for treatment. Per Dr. Melo via TT, okay to proceed with treatment today and no additional IVF or treatmentnecessary to start today. Will continue monitoring Cr/kidney function. Patient states he typically used to take oral iron but says she has stopped taking it and he "is not sure why" he stopped taking it. Patient says he has not been as compliant taking some of his medications lately and needs to "get back on track with everything." Patient states he had been very busylately as says he plans to start taking them as he is ordered. Patient says no one had told him to stop taking his oral iron supplements, maybe stopped about 1-2 months ago. RN educated RBCs trendingdown, hgb today 9.4, was 9.7 last month (normally around 10-13), and patient should start taking his oral iron again if he was not told to specifically stop taking this. Patient communicated understanding. Chemo agents C1/D1 - Cyramza/Taxol (previously on Opdivo) Appetite good Nausea/Vomiting no Diarrhea no Constipation no Mucositis no Fatigue no Bleeding no Infection no Rash no Numbness tingling no Pain no Radiation no ABN Labs WNL for treatment, see above regarding Cr, okay to treat per Dr. Melo Alt in Tx: N/A Return in 1 week Safety and Risk for Injury Patient will remain free from injury. Ensure appropriate safety devices are available. Provide and maintain safe environment. documented in this encounter Plan of Treatment Upcoming Encounters Date Type Specialty Care Team Description 02/01/2023 Laboratory [facility] [place], Lab Scenery [address] [place] [address] 02/02/2023 Hem/Onc Treatment Hematology Oncology [place], Chair 7 Hem Onc Scenery [address] [place] [address] 02/08/2023 Laboratory Laboratory [place], Lab Scenery [address] [place] [address] 02/09/2023 Hem/Onc Treatment Hematology Oncology [place], Chair 2 Hem Onc Scenery 200 [facility] [place] [address] 02/21/2023 Laboratory Laboratory [facility] Lab [facility] 200 [facility] [place] [address] 02/21/2023 Office Visit Hematology Oncology Nik Melo MD 200 [facility] [address] 02/22/2023 Hem/Onc Treatment Hematology Oncology [place], Chair 3 Hem Onc Scenery 200 [facility] [place] [address] 04/04/2023 Office Visit Urology Cm Rhodes MD 27 [facility] [address] [place] [address] Health Maintenance Due Date Last [...] this encounter Medical Devices Implanted Type Area Trim Installer Device Identifier Shelf Expiration Date Model / Serial / Lot Cath Power Port 6fr Clearvue - [id number] Implanted:Qty : 1 on 08/10/2021 by Alexander Rodriguez MD at [facility] Left: Subclavian CR BARD : PERIPHERAL VASCULAR 08/21/2021 [id number] / / documented as of this encounter [...] ONCE PRN Other, Hypersensitivity Reaction, Starting on Sun01/26/23 at 1325, Until 01/27/23 at 1324, For 24 hours EPINEPHrine 1 MG/ML inj 0.3 mg 0.3 mg, Intramuscular, ONCE PRN Other, Hypersensitivity Reaction or Anaphylaxis, Starting on Sun01/26/23 at 1325, Until 01/27/23 at 1324, For 24 hours hEParin 100 UNIT/ML Lock Flush inj 500 Units 500 Units (5 mL), IV Lock, PRN Other, IV Flush, Starting on Sun01/26/23 at 1325, Until 01/27/23 at 1324, For 24 hours, Do not flush if lock, PICC, or central line not in place; IV infusing or unable to flush. Given 01/26/2023 4:16 PM EDT 500 Units Hydrocortisone Sod Suc (PF) (Solu-Cortef) inj 100 mg 100 mg, IV Push, ONCE PRN Other, Hypersensitivity Reaction, Starting on Sun01/26/23 at 1325, Until 01/27/23 at 1324, For 24 hours NSS infusion 500 mL, Intravenous, at 50 mL/hr, CONTINUOUS, Starting on Sun01/26/23 at 1430, Until 01/27/23 at 0029 Start Infusion 01/26/2023 1:15 PM EDT 500 mL 50 mL/hr sodium chloride 0.9 % flush central line 10 mL 10 mL, IV Push, PRN Other, IV Flush, Starting on Sun01/26/23 at 1325, Until 01/27/23 at 1324, For 24 hours, Do not flush if lock, PICC, or central line not in place; IV infusing or unable to flush. Given 01/26/2023 4:16 PM EDT 10 mL Inactive Administered Medications - up to 3 most recent administrations Medication Order MAR Action Action Date Dose Rate Site Acetaminophen (Tylenol) tab 650 mg 650 mg, Oral, ONCE, On Sun01/26/23 at 1400, For 1 dose, Maximum of 4 grams (4000 mg) per day. Given 01/26/2023 1:44 PM EDT 650 mg Dexamethasone (Decadron) tab 12 mg 12 mg, Oral, ONCE, On Sun01/26/23 at 1400, For 1 dose Given 01/26/2023 1:44 PM EDT 12 mg diphenhydrAMINE (Benadryl) 25 mg in NSS 50 mL ivpb 25 mg, IV Piggyback, ONCE, 1 dose, On Sun01/26/23 at 1400 Start Infusion 01/26/2023 1:45 PM EDT 25 mg 200 mL/hr Famotidine (Pepcid) tab 20 mg 20 mg, Oral, ONCE, On Sun01/26/23 at 1400, For 1 dose Given 01/26/2023 1:44 PM EDT 20 mg ondansetron (Zofran) tab 8 mg 8 mg, Oral, ONCE, On Sun01/26/23 at 1400, For 1 dose, Give 30 minutes prior to chemotherapy. Given 01/26/2023 1:44 PM EDT 8 mg PACLitaxel (Taxol) 158 mg in NSS 250 mL infusion 158 mg (rounded from 157.6 mg = 80 mg/m2 1.97 m2 Treatment Plan BSA from Recorded weight), IV Piggyback, at 250 mL/hr Administer over 60 Minutes, Administer through 0.22 micron low protein binding filter!, ONCE, 1 dose, On Sun01/26/23 at 1600 Start Infusion 01/26/2023 3:15 PM EDT 158 mg 250 mL/hr Ramucirumab (Cyramza) 700 mg in NSS 250 mL infusion 700 mg (rounded from 687.2 mg = 8 mg/kg 85.9 kg Treatment plan Recorded weight), IV Piggyback, ONCE, 1 dose, On Sun01/26/23 at 1500, Administer over 60 Minutes, Administer though 0.22 micron low protein binding filter! Start Infusion 01/26/2023 2:08 PM EDT 700 mg 250 mL/hr documented in this encounter Advance Directives [...] and were consensually agreed upon. Care Teams Mirror Silverer Relationship Specialty Start Date End Date Hortencia Leal PA-C [address] [facility], [place] [address] PCP - General Physician Edger Automatic 02/08/18 documented as of this encounter
--- OUTSIDE RECORDS SUMMARY | 2023-06-27 07:41 | External Medical Summary | Summary of Care ---
Author Name Unknown Organization [facility] Address 100 [facility] [place] [address] Phone [phone] Care Team Providers Care Blueprinting Machine Operator Name Role Phone Hortencia Leal PA-C Primary Care Provid er Reason for Visit * Reason Comments Outpatient Testing Encounter Details Date Type Department Care Team Description 01/30/2023 Laboratory Laboratory Scenery Eure [place] [address] [place] [phone] [facility] Lab [facility] [address] [place] [address] 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 [...] times a day. As needed 0 Active [place]-3 Fatty Acids (FISH OIL) 1000 MG Capsule [...] Visit Hematology Oncology Adeline Jin CRNP 400 [facility] [place] [phone] PENDING VISIT DRAFT 01/30/2023 Hem/Onc Treatment Hematology Oncology Maddy, Chair 8 Hem Onc Scenery [address] [place] [address] Arrived 02/01/2023 Laboratory Laboratory [place]addy, Lab Scenery [address] [place] [address] 02/02/2023 Hem/Onc Treatment Hematology Oncology Maddy, Chair 7 Hem Onc Scenery [address] [place] [address] 02/08/2023 Laboratory Laboratory [place], Lab Scenery 200 [facility] [place] [address] 02/09/2023 Hem/Onc Treatment Hematology Oncology Eure, Chair 2 Hem Onc Scenery 200 [facility] [place] [address] 02/21/2023 Laboratory Laboratory [facility] Scenery 200 [facility] [place], [place] [address] 02/21/2023 Office Visit Hematology Oncology Nik Melo MD 200 [place] [address] 02/22/2023 Hem/Onc Treatment Hematology Oncology Eure, Chair 3 Hem Onc Scenery 200 [facility] [place] [address] 04/04/2023 Office Visit Urology RhodesCm MD 27 [facility] [place] [place] [address] Pending Results Name Type Priority Associated Diagnoses Date /Time COMPREHENSIVE METABOLIC PANEL Lab STAT 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) 01/30/2023 8:00 AM EDT TSH WITH FREE T4 IF INDICATED Lab STAT Encounter for adjustment and management of vascular access device 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) Prostate cancer (HCC) Encounter for long-term (current) use of medications 01/30/2023 8:00 AM EDT Health Maintenance Due Date Last [...] this encounter Medical Devices Implanted Type Area Pediatric Associate Device Identifier Shelf Expiration Date Model / Serial / Lot Cath Power Port 6fr Clearvue - [id number] Implanted:Qty : 1 on 08/10/2021 by Alexander Rodriguez MD [place] [facility] [place]: Subclavian CR BARD : PERIPHERAL VASCULAR 08/21/2021 [id number] / / documented as of this encounter Procedures Procedure Name Priority Date/Time Associated Diagnosis Comments DIFFERENTIAL, AUTOMATED STAT 01/30/2023 8:00 AM EDT 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) CBC WITH WBC DIFFERENTIAL STAT 01/30/2023 8:00 AM EDT 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) CBC STAT 01/30/2023 8:00 AM EDT 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) documented in this encounter Results * DIFFERENTIAL, AUTOMATED (01/30/2023 8:00 AM EDT) WBC 5.42 4.00 - 10.80 K/uL 01/30/2023 8:04 AM EDT [facility]-02 Neutrophils % 74.4 40.0 - 75.0 % 01/30/2023 8:04 AM EDT [facility] 56-02 Lymphocytes % 18.6 18.0 - 42.0 % 01/30/2023 8:04 AM EDT [facility] 56-02 Monocytes % 4.2 1.0 - 11.0 % 01/30/2023 8:04 AM EDT [facility] 56- Eosinophils % 2.6 0.0 - 6.0 % 01/30/2023 8:04 AM EDT [facility] 56- Basophils % 0.2 0.0 - 2.0 % 01/30/2023 8:04 AM EDT [facility] 56- Absolute Neutrophils 4.03 1.80 - 7.70 K/uL 01/30/2023 8:04 AM EDT [facility] 56- Absolute Lymphocytes 1.01 1.00 - 4.80 K/ul 01/30/2023 8:04 AM EDT [facility] 56- Absolute Monocytes 0.23 0.00 - 1.10 K/uL 01/30/2023 8:04 AM EDT [facility] 56- Absolute Eosinophils 0.14 0.00 - 0.70 K/uL 01/30/2023 8:04 AM EDT [facility] 56- Absolute Basophils 0.01 0.00 - 0.20 K/uL 01/30/2023 8:04 AM EDT [facility] 56 Blood Venous blood specimen / Unknown Venipuncture / Unknown 01/30/2023 8:00 AM EDT 01/30/2023 8:00 AM EDT Nik Melo MD LAB BLOOD ORDERA BLES [facility] 56- [address] [place] [address] * (ABNORMAL) CBC (01/30/2023 8:00 AM EDT) WBC 5.42 4.00 - 10.80 K/uL 01/30/2023 8:04 AM EDT [facility] 56- RBC 3.25 4.50 - 5.25 M/uL 01/30/2023 8:04 AM EDT [facility] 56- HGB 9.9(L) 14.0 - 16.8 g/dL 01/30/2023 8:04 AM EDT [facility] 56 HCT 32.1(L) 40.0 - 48.4 % 01/30/2023 8:04 AM EDT [facility] 56 MCV 98.8 82.0 - 99.5 fL 01/30/2023 8:04 AM EDT [facility] 56 MCH 30.5 27.0 - 34.0 pg 01/30/2023 8:04 AM EDT [facility] 56 MCHC 30.8 32.0 - 36.0 g/dL 01/30/2023 8:04 AM EDT [facility] 56 RDW 15.5 11.5 - 15.5 % 01/30/2023 8:04 AM EDT [facility] 56 PLT 152 140 - 400 K/uL 01/30/2023 8:04 AM EDT [address] MPV 8.9 6.6 - 11.1 fL 01/30/2023 8:04 AM EDT [facility] 56 Blood Venous blood specimen / Unknown Venipuncture / Unknown 01/30/2023 8:00 AM EDT 01/30/2023 8:00 AM EDT Nik Melo MD LAB BLOOD ORDERA BLES [facility] [address] [place] [address] documented in this encounter Visit Diagnoses Diagnosis [...] and were consensually agreed upon. Care Teams Blueprinting Machine Operator Relationship Specialty Start Date End Date Hortencia Leal PA-C [address] [place] [address] PCP - General Physician Visual Display Associate 02/08/18 documented as of this encounter
--- OUTSIDE RECORDS SUMMARY | 2023-06-27 07:41 | External Medical Summary ---
Author Name Unknown Address Unknown Organization [id number]:[facility] [place] [address] [place] [address] Laboratory Report Ordering Provider Test Date Status SHAY CH 01/30/2023 08:00:46 Final Observation Date Value Abnormality Reference (Units ) Status TSH 01/30/2023 08:00:46 1.49 0.27-4.20 (uIU/mL) Final Performing Location [facility] [place] - [address] [place] [address]
--- OUTSIDE RECORDS SUMMARY | 2023-06-27 07:41 | External Medical Summary ---
Author Name Unknown Address Unknown Organization [id number]:[facility] [place] [address] Laboratory Report Ordering Provider Test Date Status SHAY CH 01/30/2023 08:00:46 Final Observation Date Value Abnormality Reference (Units ) Status SYNC LEUKOCYTES IN BLOOD BY AUTOMATED COUNT 01/30/2023 08:00:46 5.42 4.00-10.80 (K/uL) Final Segs 01/30/2023 08:00:46 74.4 40.0-75.0 (%) Final Lymphs % 01/30/2023 08:00:46 18.6 18.0-42.0 (%) Final Monos 01/30/2023 08:00:46 4.2 1.0-11.0 (%) Final Eosinophils 01/30/2023 08:00:46 2.6 0.0-6.0 (%) Final Basos 01/30/2023 08:00:46 0.2 0.0-2.0 (%) Final Absolute Segs 01/30/2023 08:00:46 4.03 1.80-7.70 (K/uL) Final Lymphs, absolute 01/30/2023 08:00:46 1.01 1.00-4.80 (K/ul) Final Monos, Abs 01/30/2023 08:00:46 0.23 0.00-1.10 (K/uL) Final Eos, Abs 01/30/2023 08:00:46 0.14 0.00-0.70 (K/uL) Final Basos, Abs 01/30/2023 08:00:46 0.01 0.00-0.20 (K/uL) Final Performing Location [facility] [place] [address]
--- OUTSIDE RECORDS SUMMARY | 2023-06-27 07:41 | External Medical Summary | Summary of Care ---
Author Name Unknown Organization [facility] Address 100 [facility] [place] [address] Phone [phone] Care Team Providers Care Purchaser Automotive Parts Name Role Phone Hortencia Leal PA-C Primary Care Provid er Reason for Visit * Reason Onset Date Comments Information 01/29/2023 Encounter Details Date Type Department Care Team Description 01/29/2023 Telephone Hematology/Oncology [facility] [address] Nik Melo MD 200 [place] [address] Information Allergies Active Allergy Reactions Severity Noted [...] times a day. As needed 0 Active [place]-3 Fatty Acids (FISH OIL) 1000 MG Capsule [...] * Telephone Encounter - TANI Johnson - 01/29/2023 1:39 PM EDT appt have been added for 01/30/23 per nursing. Done. * Telephone Encounter - Lakeisha Cortez RN - 01/29/2023 1:18 PM EDT Called patient regarding message below. He states that he does not know know if he can move forwardwith these treatments and he has never been sick like this in his life. Ultimately, today he is feeling better, the nausea and vomiting has resolved. He agreed to lab work at 830, Adeline Velazquez 9 am, and then ?Hydration/electrolytes to follow. [...] fluids. He would like a callback at [phone] regarding his symptoms because "he cannot take that chemo again." documented in this encounter Plan of Treatment Upcoming Encounters Date Type Specialty Care Team Description 01/30/2023 Laboratory Laboratory Maddy, Lab Scenery [address] [place] [address] 01/30/2023 Office Visit Hematology Oncology Adeline Jin CRNP [address] [place] [address] 01/30/2023 Hem/Onc Treatment Hematology Oncology Maddy, Chair 8 Hem Onc Scenery [address] [place] [address] 02/01/2023 Laboratory Laboratory [place], Lab Scenery [address] [facility], [place] [address] 02/02/2023 Hem/Onc Treatment Hematology Oncology [place], Chair 7 Hem Onc Scenery [address] [place], [place] [address] 02/08/2023 Laboratory Laboratory [place], Lab Scenery [address] [facility], [place] [address] 02/09/2023 Hem/Onc Treatment Hematology Oncology [place], Chair 2 Hem Onc Scenery [address] [facility], [place] [address] 02/21/2023 Laboratory Laboratory [place], Lab Scenery [address] [facility], [place] [address] 02/21/2023 Office Visit Hematology Oncology Nik Melo MD [address] [place] [address] 02/22/2023 Hem/Onc Treatment Hematology Oncology [place], Chair 3 Hem Onc Scenery [address] [facility], [place] [address] 04/04/2023 Office Visit Urology Cm Rhodes MD 27 [facility] [address] [place] [address] Health Maintenance Due Date Last Done [...] this encounter Medical Devices Implanted Type Area Shipwright Apprentice Device Identifier Shelf Expiration Date Model / Serial / Lot Cath Power Port 6fr Clearvue - [id number] Implanted:Qty : 1 on 08/10/2021 by Alexander Rodriguez MD at OR [facility] [place] Left: Subclavian CR BARD : PERIPHERAL VASCULAR 08/21/2021 [id number] / / documented as of this encounter [...] and were consensually agreed upon. Care Teams Purchaser [employer]otive Parts Relationship Specialty Start Date End Date Hortencia Leal PA-C [address] [place], [place] [address] PCP - General Physician Dye Maker 02/08/18 documented as of this encounter
--- OUTSIDE RECORDS SUMMARY | 2023-06-27 07:41 | External Medical Summary ---
Author Name Unknown Address Unknown Organization K01:[facility] [place] [address] [place] [address] Laboratory Report Ordering Provider Test Date Status MATHIEU,JOSIE 01/30/2023 08:00:46 Final Observation Date Value Abnormality Reference (Units ) Status Ferritin 01/30/2023 08:00:46 55 30-400 (ng /mL) Final Performing Location [facility] - [address] [place] [address]
--- OUTSIDE RECORDS SUMMARY | 2023-06-27 07:41 | External Medical Summary | Summary of Care ---
Author Name Unknown Organization [facility] Address 100 [facility] [place] [address] Phone [phone] Care Team Providers Care Hospital Laboratory Technician Name Role Phone Hortencia Leal PA-C Primary Care Provid er Reason for Visit * Reason Onset Date Comments Precert Future 01/30/2023 aloxi Encounter Details Date Type Department Care Team Description 01/30/2023 Telephone Hematology/Oncology [address], [address] [phone] Nik Melo MD 200 [place] [address] Precert Future (aloxi) Allergies Active Allergy Reactions [...] times a day. As needed 0 Active [place]-3 Fatty Acids (FISH OIL) 1000 MG Capsule [...] was not controlled with zofran or compazine. [place] updated. Patient is scheduled for next treatment 02/02/23. Precert: please obtain auth for ALOXI prior to treatment appointment. Thanks! documented in this encounter Plan of Treatment Upcoming Encounters Date Type Specialty Care Team Description 02/01/2023 Laboratory Laboratory Enrique Castañeda Scenery [address] [place] [address] 02/02/2023 Hem/Onc Treatment Hematology Oncology Maddy, Chair 7 Hem Onc Scenery [address] [place] [address] 02/08/2023 Laboratory Laboratory [place], Lab Scenery 200 [facility] [place] [address] 02/09/2023 Hem/Onc Treatment Hematology Oncology Busy, Chair 2 Hem Onc Scenery 200 [facility] [place] [address] 02/21/20[address] Laboratory [address] [facility] Lab Scenery 200 [facility] [place] [address] 02/21/2023 Office Visit Hematology Oncology Nik Melo MD 200 [place] [address] 02/22/2023 Hem/Onc Treatment Hematology Oncology Busy, Chair 3 Hem Onc Scenery 200 [facility] [place] [address] 04/04/2023 Office Visit Urology RhodesCm MD [address] [place] [address] Health Maintenance Due Date Last Done Comments [...] this encounter Medical Devices Implanted Type Area Edm Operator Device Identifier Shelf Expiration Date Model / Serial / Lot Cath Power Port 6fr Clearvue - [id number] Implanted:Qty : 1 on 08/10/2021 by Alexander Rodriguez MD at [facility] Left: Subclavian CR BARD : PERIPHERAL VASCULAR 08/21/2021 [id number] / / documented as of this encounter [...] and were consensually agreed upon. Care Teams Hospital Laboratory Technician Relationship Specialty Start Date End Date Hortencia Leal PA-C [address] [place] [address] PCP - General Physician Pre Assembly Wirer 02/08/18 documented as of this encounter
--- OUTSIDE RECORDS SUMMARY | 2023-06-27 07:42 | External Medical Summary | Summary of Care ---
Author Name Unknown Organization [facility] Address 100 [facility] [place] [address] Phone [phone] Care Team Providers Care Manager Cash Name Role Phone Hortencia Leal PA-C Primary Care Provid er Reason for Visit * Reason Onset Date Comments Precert Future 01/10/2023 Cyramza, taxol Encounter Details Date Type Department Care Team Description 01/10/2023 Telephone Hematology/Oncology Treatment, [address] [place] [phone] Nik Melo MD 200 [facility] [place] [address] Precert Future (Cyramza, taxol) Allergies Active Allergy Reactions Severity Noted Date Comments Amlodipine 11/02/2020 dizziness Codeine Sulfate Other (Please comment) 10/26/19 11 hyperactivity Hydrochlorothiazide 11/02/2020 hypercalcemia Oxaliplatin 02/09/2022 Infusion related reaction documented as of this encounter (statuses as of 01/10/2023) Medications Medication Sig Dispensed Refills Start Date [...] times a day. As needed 0 Active [place]-3 Fatty Acids (FISH OIL) 1000 MG Capsule [...] 0 Active Ondansetron HCl 8 MG Oral TabletIndications:Mal ignant 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) Take 1 Tablet by mouth every 8 hours as needed for Nausea. 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 [place] plan built and routed for signature. Waiting for auth. *will need to send to [facility] to order cyramza when auth is back* Hep B labs 08/03/21. Patient has port in place. Patient was not scheduled for nurse education. Scheduling: please call patient to schedule nurse education visit. Appointments for labs/ treatment4/5 and 5/3 also need to be cancelled. Thanks! documented in this encounter Plan of Treatment Upcoming Encounters Date Type Specialty Care Team Description 01/23/2023 Laboratory Laboratory [place], Lab Scenery 200 [facility] [place] [address] 01/24/2023 Hem/Onc Treatment Hematology Oncology Maddy, Chair 7 Hem Onc Scenery [address] [place] [address] 02/20/2023 Laboratory Laboratory [place] Lab Scenery [address] [place] [address] 02/21/2023 Office Visit Hematology Oncology Nik Melo MD 200 [place] [address] 02/21/2023 Hem/Onc Treatment Hematology Oncology 04/04/2023 Office Visit Urology Cm Rhodes MD 27 [facility] [address] [place] [address] Health Maintenance Due Date Last Done Comments Pneumococcal Vaccine: 65+ Years (1 - PCV) 12/29/1951 Depression Screening, Annual for Pts 12 and Over 1957 Hepatitis C Screening 12/29/1963 DTaP,Tdap,and Td Vaccines (1 - Tdap) 1964 Zoster Vaccines (1 of 2) 1964 COVID-19 Vaccine (4 - Booster for Moderna series) 11/26/2021 10/01/2021, 02/14/2021, 01/17/2021 Influenza Vaccine (FLU shot) (#1) 2022 07/30/2021, 08/21/2018, 07/14/2017, Additional history exists COLONOSCOPY-EVERY [...] this encounter Medical Devices Implanted Type Area Cinetechnician Device Identifier Shelf Expiration Date Model / Serial / Lot Cath Power Port 6fr Clearvue - [id number] Implanted:Qty : 1 on 08/10/2021 by Alexander Rodriguez MD [place] [facility] [place]: Subclavian CR BARD : PERIPHERAL VASCULAR 08/21/2021 [id number] / / documented as of this encounter [...] were consensually agreed upon. Care Teams Manager Cash Relationship Specialty Start Date End Date Hortencia Leal PA-C [address] [facility] [address] PCP - General Physician Sand Car Worker 02/08/18 documented as of this encounter
--- OUTSIDE RECORDS SUMMARY | 2023-06-27 07:42 | External Medical Summary | Summary of Care ---
Author Name Unknown Organization [facility] Address 100 [facility] [place] [address] Phone [phone] Care Team Providers Care Research/Program Director Name Role Phone Hortencia Leal PA-C Primary Care Provid er Reason for Visit * Reason Onset Date Comments Precert Future 01/10/2023 Cyramza, taxol Encounter Details Date Type Department Care Team Description 01/10/2023 Telephone Hematology/Oncology Treatment, [address] [place] [phone] Nik Melo MD 200 [facility] Precert Future (Cyramza, taxol) Allergies Active Allergy Reactions Severity Noted Date Comments Amlodipine 11/02/2020 dizziness Codeine Sulfate Other (Please comment) 10/26/19 11 hyperactivity Hydrochlorothiazide 11/02/2020 hypercalcemia Oxaliplatin 02/09/2022 Infusion related reaction documented as of this encounter (statuses as of 01/16/2023) Medications Medication Sig Dispensed Refills Start Date [...] times a day. 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 Scheduling: please call patient to schedule - labs "CBCd, CMP, UA"- patient stated that he wanted to labs the day prior at [facility] (can be same day if he changes his mind) - 503 schedule for 3 hour appt "C1D1 cyramza/ taxol" * Addendum Note - Venita Schrader RN - 01/15/2023 10:24 AM EDTAddended by: VENITA SCHRADER on: 01/15/2023 10:24 AM Modules accepted: Orders * Telephone Encounter - Venita Schrader RN - 01/15/2023 10:10 AM EDT Referral entered. Gay: please advise if/ when cyramza will be available so that patient can be scheduled. Thanks! * Telephone Encounter - Venecia Carlin CMA - 01/10/2023 1:38 PM EDT Called and spoke with Heath; advised that appointment for 4/5 and 5/[address] Melo is changing treatments. He agreed to be scheduled with Nurse for chemo teaching 01/15 at 10am * Telephone Encounter - Venita Schrader RN - 01/10/2023 12:06 PM EDT Order received for cyramza/ taxol. [place] plan built and routed for signature. Waiting for auth. *will need to send to 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 [place]: Subclavian CR BARD : PERIPHERAL VASCULAR 08/21/2021 [id number] / / documented as of this encounter [...] and were consensually agreed upon. Care Teams Research/Program Director Relationship Specialty Start Date End Date Hortencia Leal PA-C [address] [facility] [phone] PCP - General Physician Marketing Production Coordinator 02/08/18 documented as of this encounter
--- OUTSIDE RECORDS SUMMARY | 2023-06-27 07:42 | External Medical Summary | Summary of Care ---
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) Prostate cancer (HCC) Encounter for long-term (current) use of medications 01/25/2023 10:40 AM EDT Health Maintenance Due Date Last [...] encounter Medical Devices Implanted Type Area Catering Attendant Device Identifier Shelf Expiration Date Model / Serial / Lot Cath Power Port 6fr Clearvue - [id number] Implanted:Qty : 1 on 08/10/2021 by Alexander Rodriguez MD at [facility] Left: Subclavian CR BARD : PERIPHERAL VASCULAR 08/21/2021 [id number] / / documented as of this encounter Procedures Procedure Name Priority Date/Time Associated Diagnosis Comments DIFFERENTIAL, AUTOMATED STAT 01/25/2023 10:40 AM EDT Encounter for adjustment and management of vascular access device 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) Prostate cancer (HCC) CBC WITH WBC DIFFERENTIAL STAT 01/25/2023 10:40 AM EDT Encounter for adjustment and management of vascular access device 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) Prostate cancer (HCC) CBC STAT 01/25/2023 10:40 AM EDT Encounter for adjustment and management of vascular access device 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) Prostate cancer (HCC) documented in this encounter Results * (ABNORMAL) DIFFERENTIAL, AUTOMATED (01/25/2023 10:40 AM EDT) WBC 7.21 4.00 - 10.80 K/uL 01/25/2023 10:44 AM EDT [facility] [place] 56-02 Neutrophils % 64.8 40.0 - 75.0 % 01/25/2023 10:44 AM EDT [facility] [place] 56-02 Lymphocytes % 21.6 18.0 - 42.0 % 01/25/2023 10:44 AM EDT [facility] [place] 56-02 Monocytes % 11.2(H) 1.0 - 11.0 % 01/25/2023 10:44 AM EDT [facility] [place] 56-02 Eosinophils % 2.1 0.0 - 6.0 % 01/25/2023 10:44 AM EDT [facility] [place] 56-02 Basophils % 0.3 0.0 - 2.0 % 01/25/2023 10:44 AM EDT [facility] [place] 56-02 Absolute Neutrophils 4.67 1.80 - 7.70 K/uL 01/25/2023 10:44 AM EDT [facility] [place] 56-02 Absolute Lymphocytes 1.56 1.00 - 4.80 K/ul 01/25/2023 10:44 AM EDT [facility] [place] 56-02 Absolute Monocytes 0.81 0.00 - 1.10 K/uL 01/25/2023 10:44 AM EDT [facility] [place] 56-02 Absolute Eosinophils 0.15 0.00 - 0.70 K/uL 01/25/2023 10:44 AM EDT [facility] [place] 56-02 Absolute Basophils 0.02 0.00 - 0.20 K/uL 01/25/2023 10:44 AM EDT [facility] [place] 56-02 Blood Venous blood specimen / Unknown Venipuncture / Unknown 01/25/2023 10:40 AM EDT 01/25/2023 10:40 AM EDT Nik Melo MD LAB BLOOD ORDERA BLES [facility] [address] [place] [address] * (ABNORMAL) CBC (01/25/2023 10:40 AM EDT) [facility] Signature WBC 7.21 4.00 - 10.80 K/uL 01/25/2023 10:44 AM EDT [address] RBC 3.06 4.50 - 5.25 M/uL 01/25/2023 10:44 AM EDT [facility] 56 HGB 9.4(L) 14.0 - 16.8 g/dL 01/25/2023 10:44 AM EDT [facility] 56 HCT 30.9(L) 40.0 - 48.4 % 01/25/2023 10:44 AM EDT [facility] 56 MCV 101.0 82.0 - 99.5 fL 01/25/2023 10:44 AM EDT [facility] 56 MCH 30.7 27.0 - 34.0 pg 01/25/2023 10:44 AM EDT [facility] 56 MCHC 30.4 32.0 - 36.0 g/dL 01/25/2023 10:44 AM EDT [facility] 56 RDW 15.5 11.5 - 15.5 % 01/25/2023 10:44 AM EDT [facility] 56 PLT 194 140 - 400 K/uL 01/25/2023 10:44 AM EDT [facility] 56 MPV 8.4 6.6 - 11.1 fL 01/25/2023 10:44 AM EDT [facility] 56 Blood Venous blood specimen / Unknown Venipuncture / Unknown 01/25/2023 10:40 AM EDT 01/25/2023 10:40 AM EDT Nik Melo MD LAB BLOOD ORDERA BLES [facility] [address] [place] [address] documented in this encounter Visit Diagnoses Diagnosis [...] and were consensually agreed upon. Care Teams Buzzsaw Operator Helper Relationship Specialty Start Date End Date Hortencia Leal PA-C [address] [place] [address] PCP - General Physician Spd Manager 02/08/18 documented as of this encounter
--- OUTSIDE RECORDS SUMMARY | 2023-06-27 07:42 | External Medical Summary ---
Author Name Unknown Address Unknown Organization K09:[facility] [place] [address] Laboratory Report Ordering Provider Test Date Status SHAY CH 01/25/2023 10:40:12 Final Observation Date Value Abnormality Reference (Units ) Status WBC, Total 01/25/2023 10:40:12 7.21 4.00-10.8 0 (K/uL) Final RBC 01/25/2023 10:40:12 3.06 4.50-5.25 (M/uL) Final Hemoglobin 01/25/2023 10:40:12 9.4 Below low normal 14 .0-16.8 (g/dL) Final HCT 01/25/2023 10:40:12 30.9 Below low normal 40. 0-48.4 (%) Final MCV 01/25/2023 10:40:12 101.0 82.0-99.5 (fL) Final MCH 01/25/2023 10:40:12 30.7 27.0-34.0 (pg) Final MCHC 01/25/2023 10:40:12 30.4 32.0-36.0 (g/dL) Final RDW 01/25/2023 10:40:12 15.5 11.5-15.5 (%) Final Platelets 01/25/2023 10:40:12 194 140-400 (K /uL) Final MPV 01/25/2023 10:40:12 8.4 6.6-11.1 ( fL) Final Performing Location [facility] [place] [address]
--- OUTSIDE RECORDS SUMMARY | 2023-06-27 07:42 | External Medical Summary | Summary of Care ---
Author Name Unknown Organization [facility] Address 100 [facility] [place] [address] Phone [phone] Care Team Providers Care Heater Tender Name Role Phone Hortencia Leal PA-C Primary Care Provid er Encounter Details Date Type Department Care Team Description 01/15/2023 Nurse Only Hematology/Oncology [facility] [address] [place] [address] [place], Nurse Hem Onc [facility] 200 [place] [address] Allergies Active Allergy Reactions Severity Noted Date Comments Amlodipine 11/02/2020 dizziness Codeine Sulfate Other (Please comment) 10/26/19 11 hyperactivity Hydrochlorothiazide 11/02/2020 hypercalcemia Oxaliplatin 02/09/2022 Infusion related reaction documented as of this encounter (statuses as of 01/17/2023) Medications Medication Sig Dispensed Refills Start Date [...] times a day. 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 documented as of this encounter (statuses as of 01/17/2023) Immunizations Name Administration Dates Next Due COVID-19 [...] Encounters Date Type Specialty Care Team Description 01/25/2023 Laboratory [facility] [place], Lab [address] [address] 01/26/2023 Hem/Onc Treatment Hematology Oncology [place], Chair [address] [address] 02/21/2023 Office Visit Hematology Oncology Nik Melo MD 200 [place] [address] 04/04/2023 Office Visit Urology Cm Rhodes MD 27 [facility] [address] [place] [address] Health Maintenance Due [...] encounter Medical Devices Implanted Type Area Manager Of Environmental Services Device Identifier Shelf Expiration Date Model / Serial / Lot Cath Power Port 6fr Clearvue - [id number] Implanted:Qty : 1 on 08/10/2021 by Alexander Rodriguez MD at [facility] Left: Subclavian CR BARD : PERIPHERAL VASCULAR 08/21/2021 [id number] / / documented as of this encounter [...] and were consensually agreed upon. Care Teams Heater Tender Relationship Specialty Start Date End Date Hortencia Leal PA-C [address] [place] [address] PCP - General Physician Caltrans Equipment Operator 02/08/18 documented as of this encounter
--- OUTSIDE RECORDS SUMMARY | 2023-06-27 07:42 | External Medical Summary | Summary of Care ---
Author Name Unknown Organization [facility] Address 100 [facility] [place] [address] Phone [phone] Care Team Providers Care Chemist Proteins Name Role Phone Hortencia Leal PA-C Primary Care Provid er Reason for Visit * Reason Onset Date Comments Precert Future 01/10/2023 Cyramza, taxol Encounter Details Date Type Department Care Team Description 01/10/2023 Telephone Hematology/Oncology Treatment, [address] [place] [phone] Nik Melo MD 200 [place] [address] Precert Future (Cyramza, taxol) Allergies Active Allergy [...] times a day. As needed 0 Active [place]-3 Fatty Acids (FISH OIL) 1000 MG Capsule [...] encounter Miscellaneous Notes * Telephone Encounter - Venecia Carlin CMA - 01/10/2023 1:38 PM EDT Called and spoke with Heath; advised that appointment for 4/5 and 5/[address] Melo is changing treatments. He agreed to be scheduled with Nurse for chemo teaching 01/15 at 10am * Telephone Encounter - Venita Byers RN - 01/10/2023 12:06 PM EDT Order received for cyramza/ taxol. [place] plan built and routed for signature. Waiting for auth. *will need to send to [facility] to order cyramza when auth is back* Hep B labs 08/03/21. Patient has port in place. Patient was not scheduled for nurse education. Scheduling: please call patient to schedule nurse education visit. Appointments for labs/ treatment4/5 and 5/3 also need to be cancelled. Thanks! documented in this encounter Plan of Treatment Upcoming Encounters Date Type Specialty Care Team Description 01/15/2023 Nurse Only Hematology Oncology [place], Nurse Hem Onc [place] [address] [place] [address] 02/21/2023 Office Visit Hematology Oncology Nik Melo MD 200 [place] [address] 04/04/2023 Office Visit Urology Cm Rhodes MD [address] [place] [address] [place] [address] Health Maintenance Due Date Last [...] this encounter Medical Devices Implanted Type Area Table Games Shift Manager Device Identifier Shelf Expiration Date Model / Serial / Lot Cath Power Port 6fr Clearvue - [id number] Implanted:Qty : 1 on 08/10/2021 by Alexander Rodriguez MD [place] [facility] Left: Subclavian CR BARD : PERIPHERAL VASCULAR 08/21/2021 [id number] / / documented as of this encounter [...] and were consensually agreed upon. Care Teams Chemist Proteins Relationship Specialty Start Date End Date Hortencia Leal PA-C [address] [facility], [place] [address] PCP - General Physician Chief Engineer Waterworks 02/08/18 documented as of this encounter
--- OUTSIDE RECORDS SUMMARY | 2023-06-27 07:42 | External Medical Summary ---
Author Name Unknown Address Unknown Organization K09:[facility] [place] [address] Laboratory Report Ordering Provider Test Date Status SHAY CH 01/26/2023 12:20:19 Final Observation Date Value Abnormality Reference (Units ) Status Color of Urine by Auto 01/26/2023 12:20:19 Yellow Light Yellow, Yellow, Dark Yellow Final Clarity, Urine 01/26/2023 12:20:19 Clear Clear Final Glucose [Mass/volume] in Urine by Automated test strip 01/26/2023 12:20:19 250 Abnormal Negative (mg/dL) Final Bilirubin.total [Presence] in Urine by Automated test strip 01/26/2023 12:20:19 Negative Negative Final Ketones [Mass/volume] in Urine by Automated test strip 01/26/2023 12:20:19 Negative Negative (mg/dL) Final Specific gravity, Urine 01/26/2023 12:20:19 1.015 1.003-1.030 Final Hemoglobin [Presence] in Urine by Automated test strip 01/26/2023 12:20:19 Negative Negative Final pH, Urine 01/26/2023 12:20:19 5.0 5.0-7.5 (Units) Final Protein [Mass/volume] in Urine by Automated test strip 01/26/2023 12:20:19 Negative Negative (mg/dL) Final Urobilinogen [Mass/volume] in Urine by Automated test strip 01/26/2023 12:20:19 0.2 0.2, 1.0 (mg/dL) Final Nitrite [Presence] in Urine by Automated test strip 01/26/2023 12:20:19 Negative Negative Final Leukocyte esterase [Presence] in Urine by Automated test strip 01/26/2023 12:20:19 Negative Negative Final Annotation Comment 01/26/2023 12:20:19 Final Performing Location [facility] [place] [address]
--- OUTSIDE RECORDS SUMMARY | 2023-06-27 07:42 | External Medical Summary | Summary of Care ---
Author Name Unknown Organization [facility] Address 100 [facility] [place] [address] Phone [phone] Care Team Providers Care Cook Helper Meat Name Role Phone Hortencia Leal PA-C Primary Care Provid er Encounter Details Date Type Department Care Team Description 01/16/2023 Orders Only Hematology/Oncology [facility] [place] 200 [facility] [place] [address] Nik Melo MD 200 [place] [address] Allergies Active Allergy Reactions Severity Noted Date [...] times a day. As needed 0 Active [place]-3 Fatty Acids (FISH OIL) 1000 MG Capsule [...] Visit Hematology Oncology Nik Melo MD 200 [place] [address] 04/04/2023 Office Visit Urology Cm Rhodes MD 27 [facility] 270 [place] [address] Health Maintenance Due Date Last [...] this encounter Medical Devices Implanted Type Area Business Services Intern Device Identifier Shelf Expiration Date Model / Serial / Lot Cath Power Port 6fr Clearvue - [id number] Implanted:Qty : 1 on 08/10/2021 by Alexander Rodriguez MD at [place] [facility] [place] Left: Subclavian CR BARD : PERIPHERAL VASCULAR 08/21/2021 [id number] / / documented as of this encounter [...] and were consensually agreed upon. Care Teams Cook Helper Meat Relationship Specialty Start Date End Date Hortencia Leal PA-Harjeet [address] [facility], [place] [phone] PCP - General Physician Boomswing Operator 02/08/18 documented as of this encounter
--- OUTSIDE RECORDS SUMMARY | 2023-06-27 07:42 | External Medical Summary | Summary of Care ---
Author Name Unknown Organization [facility] Address 100 [facility] [place] [address] Phone [phone] Care Team Providers Care Nonfarm Animal Caretaker Name Role Phone Hortencia Leal PA-C Primary Care Provid er Reason for Visit * Reason Onset Date Comments Precert Future 01/10/2023 Cyramza, taxol Encounter Details Date Type Department Care Team Description 01/10/2023 Telephone Hematology/Oncology Treatment, [address] [place] [phone] Nik Melo MD 200 [facility] [place] [address] Precert Future (Cyramza, taxol) Allergies Active Allergy Reactions Severity Noted Date Comments Amlodipine 11/02/2020 dizziness Codeine Sulfate Other (Please comment) 10/26/19 11 hyperactivity Hydrochlorothiazide 11/02/2020 hypercalcemia Oxaliplatin 02/09/2022 Infusion related reaction documented as of this encounter (statuses as of 01/15/2023) Medications Medication Sig Dispensed Refills Start Date [...] times a day. 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 [place] plan built and routed for signature. Waiting for auth. *will need to send to [facility] to order cyramza when auth is back* Hep B labs 08/03/21. Patient has port in place. Patient was not scheduled for nurse education. Scheduling: please call patient to schedule nurse education visit. Appointments for labs/ treatment01/24 and 02/21 also need to be cancelled. Thanks! documented in this encounter Plan of Treatment Upcoming Encounters Date Type Specialty Care Team Description 02/21/2023 Office Visit Hematology Oncology Nik Melo MD 200 [place] [address] 04/04/2023 Office Visit Urology Cm Rhodes MD [address] [address] Scheduled Orders Name Type Priority Associated [...] this encounter Medical Devices Implanted Type Area Bindery Assistant Device Identifier Shelf Expiration Date Model / Serial / Lot Cath Power Port 6fr Clearvue - [id number] Implanted:Qty : 1 on 08/10/2021 by Alexander Rodriguez MD at [place] [facility] Left: Subclavian CR BARD : PERIPHERAL VASCULAR 08/21/2021 [id number] / / documented as of this encounter [...] and were consensually agreed upon. Care Teams Nonfarm Animal Caretaker Relationship Specialty Start Date End Date Hortencia Leal PA-Harjeet [address] [facility] [place] [phone] PCP - General Physician French Comber 02/08/18 documented as of this encounter
--- OUTSIDE RECORDS SUMMARY | 2023-06-27 07:42 | External Medical Summary | Summary of Care ---
Author Name Unknown Organization [facility] Address 100 [facility] [place] [address] Phone [phone] Care Team Providers Care Chemical Process Equipment Operator Name Role Phone Hortencia Leal PA-C Primary Care Provid er Reason for Visit * Reason Onset Date Comments Information 01/24/2023 Decadron reminde r Encounter Details Date Type Department Care Team Description 01/24/2023 Telephone Hematology/Oncology [address], [address] [phone] Nik Melo MD 200 [place] [address] Information (Decadron reminder) Allergies Active Allergy Reactions Severity Noted Date Comments Amlodipine 11/02/2020 dizziness Codeine Sulfate Other (Please comment) 10/26/19 11 hyperactivity Hydrochlorothiazide 11/02/2020 hypercalcemia Oxaliplatin 02/09/2022 Infusion related reaction documented as of this encounter (statuses as of 01/24/2023) Medications Medication Sig Dispensed Refills Start Date [...] times a day. 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 Called patient, left message that I was calling to remind him about the steroid he needs to take the night before and morning of each treatment. Advised him I would send MyG- he can either check MyG or return call with any questions. MyG sent. documented in this encounter Plan of Treatment Upcoming Encounters Date Type Specialty Care Team Description 01/25/2023 Laboratory Laboratory [facility], Lab Scenery [address] [place] [address] 01/26/2023 Hem/Onc Treatment Hematology Oncology [place], Chair 3 Hem Onc [address] [address] [place] [address] 02/21/2023 Office Visit Hematology Oncology Nik Melo MD 200 [facility], [place] [phone] 04/04/2023 Office Visit Urology Cm Rhodes MD [address] [place] [address] [place], [place] [address] Health Maintenance Due Date Last Done Comments [...] this encounter Medical Devices Implanted Type Area Inspector Eyeglass Device Identifier Shelf Expiration Date Model / Serial / Lot Cath Power Port 6fr Clearvue - [id number] Implanted:Qty : 1 on 08/10/2021 by Alexander Rodriguez MD at [facility] Left: Subclavian CR BARD : PERIPHERAL VASCULAR 08/21/2021 [id number] / / documented as of this encounter [...] and were consensually agreed upon. Care Teams Chemical Process Equipment Operator Relationship Specialty Start Date End Date Hortencia Leal PA-C [address] [facility] [address] PCP - General Physician Accounting Reconciliation Clerk 02/08/18 documented as of this encounter
--- OUTSIDE RECORDS SUMMARY | 2023-06-27 07:42 | External Medical Summary | Summary of Care ---
Author Name Unknown Organization [facility] Address [address] [facility] [place] [address] Phone [phone] Care Team Providers Care Stock Turner Name Role Phone Hortencia Leal PA-C Primary Care Provid er Reason for Visit * Reason Onset Date Comments Precert Future 01/10/2023 Cyramza, taxol Encounter Details Date Type Department Care Team Description 01/10/2023 Telephone Hematology/Oncology Treatment, [address] [place] [id number] Nik Melo MD 200 [place] [address] Precert Future (Cyramza, taxol) Allergies Active Allergy [...] times a day. As needed 0 Active [place]-3 Fatty Acids (FISH OIL) 1000 MG Capsule [...] Miscellaneous Notes * Telephone Encounter - TANI Ness - 01/16/2023 12:49 PM EDT Spoke to patient, scheduled for treatment 01/26/23 @ 1 pm, labs 01/25/23 @ 11am * Telephone Encounter - Blessing Schrader RN - 01/16/2023 10:26 AM EDT Cyramza is available. Scheduling: please call patient to schedule - labs "CBCd, CMP, UA"- patient stated that he wanted to labs the day prior at [facility] (can be same day if he changes his mind) - 503 schedule for 3 hour appt "C1D1 cyramza/ taxol" * Addendum Note - Blessing Schrader RN - 01/15/2023 10:24 AM EDTAddended by: BLESSING SCHRADER on: 01/15/2023 10:24 AM Modules accepted: Orders * Telephone Encounter - Blessing Schrader RN - 01/15/2023 10:10 AM EDT [...] 01/15 at 10am * Telephone Encounter - Blessing Schrader RN - 01/10/2023 12:06 PM EDT Order received for cyramza/ taxol. [place] plan built and routed for signature. Waiting [...] Specialty Care Team Description 01/25/2023 [facility] [place] [address] 01/26/2023 Hem/Onc Treatment Hematology Oncology [place], Chair 3 Hem Onc [facility] [address] [facility] [place] [address] 02/21/2023 Office Visit Hematology Oncology Nik Melo MD 200 [facility] [place] [address] 04/04/2023 Office Visit Urology Cm Rhodes MD 27 [facility] [address] [place] [address] Scheduled Orders Name Type Priority Associated [...] this encounter Medical Devices Implanted Type Area Asset Analyst Device Identifier Shelf Expiration Date Model / Serial / Lot Cath Power Port 6fr Clearvue - [id number] Implanted:Qty : 1 on 08/10/2021 by Alexander Rodriguez MD at [place] [facility] Left: Subclavian CR BARD : PERIPHERAL VASCULAR 08/21/2021 [id number] / / documented as of this encounter [...] and were consensually agreed upon. Care Teams Stock Turner Relationship Specialty Start Date End Date Hortencia Leal PA-C [address] [address] PCP - General Physician Percussion Welding Machine Operator 02/08/18 documented as of this encounter
--- OUTSIDE RECORDS SUMMARY | 2023-06-27 07:42 | External Medical Summary ---
Author Name Unknown Address Unknown Organization [id number][facility] [place] [address] Laboratory Report Ordering Provider Test Date Status SHAY CH 01/25/2023 10:40:12 Final Observation Date Value Abnormality Reference (Units ) Status BUN 01/25/2023 10:40:12 33 Above high normal 6-20 (mg/dL) Final Creatinine 01/25/2023 10:40:12 2.0 Above high normal 0.6-1.2 (mg/dL) Final Glomerular filtration rate/1.73 sq M.predicted [Volume Rate/Area] in Serum, Plasma or Blood by Creatinine-based formula (CKD-EPI) 01/25/2023 10:40:12 35 Below low normal >=60 (mL/min) Final Performing Location [facility] [place] [address]
--- OUTSIDE RECORDS SUMMARY | 2023-06-27 07:42 | External Medical Summary ---
Author Name Unknown Address Unknown Organization [id number]:[facility] [place] [address] Laboratory Report Ordering Provider Test Date Status SHAY CH 01/25/2023 10:40:12 Final Observation Date Value Abnormality Reference (Units ) Status SYNC LEUKOCYTES IN BLOOD BY AUTOMATED COUNT 01/25/2023 10:40:12 7.21 4.00-10.80 (K/uL) Final Segs 01/25/2023 10:40:12 64.8 40.0-75.0 (%) Final Lymphs % 01/25/2023 10:40:12 21.6 18.0-42.0 (%) Final Monos 01/25/2023 10:40:12 11.2 Above high normal 1.0-11.0 (%) Final Eosinophils 01/25/2023 10:40:12 2.1 0.0-6.0 (%) Final Basos 01/25/2023 10:40:12 0.3 0.0-2.0 (%) Final Absolute Segs 01/25/2023 10:40:12 4.67 1.80-7.70 (K/uL) Final Lymphs, absolute 01/25/2023 10:40:12 1.56 1.00-4.80 (K/ul) Final Monos, Abs 01/25/2023 10:40:12 0.81 0.00-1.10 (K/uL) Final Eos, Abs 01/25/2023 10:40:12 0.15 0.00-0.70 (K/uL) Final Basos, Abs 01/25/2023 10:40:12 0.02 0.00-0.20 (K/uL) Final Performing Location [facility] [place] [address]
--- OUTSIDE RECORDS SUMMARY | 2023-06-27 07:42 | External Medical Summary ---
Author Name Unknown Address Unknown Organization K01:[facility] [place] - [address] [place] [address] Laboratory Report Ordering Provider Test Date Status SHAY CH 01/25/2023 10:40:12 Final Observation Date Value Abnormality Reference (Units ) Status TSH 01/25/2023 10:40:12 0.50 0.27-4.20 (uIU/mL) Final Performing Location [facility] - [address] [place] [address]
--- OUTSIDE RECORDS SUMMARY | 2023-06-27 07:42 | External Medical Summary | Summary of Care ---
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 As needed 0 Active [place]-3 Fatty Acids (FISH OIL) 1000 MG Capsule [...] Telephone Encounter - Venita Byers RN - 01/15/2023 9:57 AM EDT Pended decadron. documented in this encounter Plan of Treatment Upcoming Encounters Date Type Specialty Care Team Description 02/21/2023 Office Visit Hematology Oncology Nik Melo MD 200 [facility], [place] [phone] 04/04/2023 Office Visit Urology Cm Rhodes MD 27 [facility] [address] [place] [address] Health Maintenance [...] this encounter Medical Devices Implanted Type Area Litigation Attorney Device Identifier Shelf Expiration Date Model / Serial / Lot Cath Power Port 6fr Clearvue - [id number] Implanted:Qty : 1 on 08/10/2021 by Alexander Rodriguez MD at [facility] Left: Subclavian CR BARD : PERIPHERAL VASCULAR 08/21/2021 [id number] / / documented as of this encounter [...] and were consensually agreed upon. Care Teams Forger Helper Relationship Specialty Start Date End Date Hortencia Leal PA-C [address] [facility] [place] [address] PCP - General Physician Bow Repairer Custom 02/08/18 documented as of this encounter
--- OUTSIDE RECORDS SUMMARY | 2023-06-27 07:42 | External Medical Summary | Summary of Care ---
Author Name Unknown Organization [facility] Address 100 [facility] [place] [address] Phone [phone] Care Team Providers Care Medical Professionals Name Role Phone Hortencia Leal PA-C Primary Care Provid er Reason for Visit * Reason Onset Date Comments Precert Future 01/10/2023 Cyramza, taxol Encounter Details Date Type Department Care Team Description 01/10/2023 Telephone Hematology/Oncology Treatment, [address] [place] [phone] Nik Melo MD 200 [place] [address] Precert Future (Cyramza, taxol) Allergies Active Allergy [...] times a day. As needed 0 Active [place]-3 Fatty Acids (FISH OIL) 1000 MG Capsule [...] Encounter - Venita Byers RN - 01/15/2023 10:10 AM EDT Referral entered. Gay: please advise if/ when cyramza will be available so that patient can be scheduled. Thanks! * Telephone Encounter - Venecia Carlin CMA - 01/10/2023 1:38 PM EDT Called and spoke with Heath; advised that appointment for 01/24 and 02/[address] Melo is changing treatments. He agreed to be scheduled with Nurse for chemo teaching 01/15 at 10am * Telephone Encounter - Venita Byers RN - 01/10/2023 12:06 PM EDT Order received for cyramza/ taxol. [place] plan built and routed for signature. Waiting for auth. *will need to send to Gay to order cyramza when auth is back* Hep B labs 08/03/21. Patient has port in place. Patient was not scheduled for nurse education. Scheduling: please call patient to schedule nurse education visit. Appointments for labs/ treatment/5 and / also need to be cancelled. Thanks! documented in this encounter Plan of Treatment Upcoming Encounters Date Type Specialty Care Team Description 02/21/2023 Office Visit Hematology Oncology Nik Melo MD 200 [place] [address] 04/04/2023 Office Visit Urology Cm Rhodes MD 27 [facility] [address] [place] [address] Scheduled Orders Name Type Priority [...] this encounter Medical Devices Implanted Type Area Tv News Director Device Identifier Shelf Expiration Date Model / Serial / Lot Cath Power Port 6fr Clearvue - [id number] Implanted:Qty : 1 on 08/10/2021 by Alexander Rodriguez MD at OR [facility] [place] Left: Subclavian CR BARD : PERIPHERAL VASCULAR 08/21/2021 [id number] / / documented as of this encounter [...] and were consensually agreed upon. Care Teams Medical Professionals Relationship Specialty Start Date End Date Hortencia Leal PA-C [address] [facility] [place] [address] PCP - General Physician Physician Practice Coordinator 02/08/18 documented as of this encounter
--- OUTSIDE RECORDS SUMMARY | 2023-06-27 07:43 | External Medical Summary | Summary of Care ---
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 documented as of this encounter (statuses as of 01/08/2023) Immunizations Name Administration Dates Next Due COVID-19 [...] Sign Reading Time Taken Comments Blood Pressure 137/57 01/08/2023 3:30 PM EDT Pulse 80 01/08/2023 3:30 PM EDT Temperature 36.7 C (98 F) 01/08/2023 3:30 PM EDT Respiratory Rate - - Oxygen Saturation 100% 01/08/2023 3:30 PM EDT Inhaled Oxygen Concentration - - Weight 85.9 kg (189 lb 6.4 oz) 01/08/2023 3:30 P M EDT Height - - Body Mass Index 32.51 08/10/2021 8:15 AM EDT documented in this encounter Progress Notes * Nik Melo MD - 01/08/2023 4:01 PM EDT Outpatient Consult Note Data Source: Patient, Epic record. Data Source: Patient, Epic record. 01/08/2023 4:01 PM Heath [place] [id number] 77 year old Patient Encounter: [facility]ATOLOG[facility] Cancer Diagnosis: -Metastatic esophageal cancer-laparoscopic biopsy of the peritoneal nodule which is positive for metastatic disease - Prostate cancer,pT2, Group IIA, Fairborn 3+4 Current Treatment: -Nivolumab was added on 11/02/2021 -on Eligard for the prostate cancer Previous Treatment: Received total of 9 cycles of FOLFOX.Nivolumab was added on 11/02/2021.Last chemotherapy was on02/08/2022. He had allergic reaction and subsequently FOLFOX chemotherapy was discontinued and now currently he is on single agent nivolumab Oncologic History : 77-year-old male with past [...] was consistent with adenocarcinoma moderately differentiated overall Fairborn score was 3+4=7with perineural invasion. Histopathology was [...] 0.6 cm HISTOLOGIC TYPE: Adenocarcinoma HISTOLOGIC GRADE (Fairborn): Primary pattern is: Grade 3: single acini [...] size and separation, cribriform and papillary patterns Fairborn Score (primary + secondary) = 5-6: Moderately [...] and fused epithelium, can show clear cells Fairborn Score (primary + secondary) = 7: Moderately poorly differentiated Fairborn Score (primary + secondary) = 8-10: Poorly [...] hepatic segment 2 suspicious for metastasis. Patient is complaining generalized weakness. His chest pain has improved. He denies any nausea, vomiting, fever, night sweats, headache, dizziness, blurred vision. REVIEW OF SYSTEMS: General: No Fever, chills, [...] Current Outpatient Medications Medication Sig Dispense Refill Sucralfate 1 GM Oral Tablet (Carafate) Take [...] as needed for Nausea. 60 Tablet 2 LISINOPRIL 20 MG PO TABS Take by [...] mouth 2 times a day. As needed [place]-3 Fatty Acids (FISH OIL) 1000 MG Capsule [...] (MiraLax) Take 17 g by mouth daily. No current facility-administered medications for this visit. Social History Tobacco Use Smoking status: Never Smokeless tobacco: Never Vaping Use Vaping Use: Never used Substance Use Topics Alcohol use: No Drug use: No Review of patient's allergies indicates: Allergen Reactions Amlodipine dizziness Codeine Sulfate Other (Please comment) hyperactivity Hctz [Hydrochlorothiazide] hypercalcemia Oxaliplatin Infusion related reaction PHYSICAL EXAMINATION: General Appearance: Healthy/pale appearing patient in no acute distress BP 137/57 (BP Site: Left Arm, BP Position: Sitting, BP Cuff Size: Regular) | Pulse 80 | Temp 36.7 C (98 F) (Tympanic) | Wt 85.9 kg (189 lb 6.4 oz) | SpO2 100% | BMI 32.51 kg/m | BSA 1.97 m Vitals reviewed. HEENT: No oral or pharyngeal masses, ulceration or thrush noted, no sinus tenderness. Neck is supple with no thyromegaly or JVD noted. Lymph Nodes: No lymphadenopathy noted in the occipital, pre and post auricular, cervical, supra andinfraclavicular, axillary, epitrochlear, inguinal, and popliteal region. Breasts: No palpable masses, nipple discharge or skin retraction Lungs/Thorax: Clear to auscultation, no accessory muscles of respiration being used. Heart: Regular rate and rhythm, normal S1, S2 Abdomen: Soft, generalized tenderness with no rigidity rebound, bowel sounds present, no appreciable hepatosplenomegaly, no palpable masses Extremeties: Good pulses bilaterally, no peripheral edema. Skin: Normal skin tone with no rash, petechiae, ecchymosis noted. Musculoskeletal: No pain on palpation over bony prominence, no edema, no evidence of gout, no jointor bony deformity ASSESSMENT: 76-year-old male with history of prostate cancer and [...] chemotherapy and agreed to continue nivolumab only. Currently he is on single agent nivolumab. He was recently admitted to the hospital with complaint of generalized weakness and chest pain and was found to have low hemoglobin. He had upper endoscopy done which shows recurrent disease and biopsy was positive for poorly differentiated adenocarcinoma.PET scan was done which revealed recurrent disease [...] with treatment and signed the consent form. PLAN: As above. He will return to [...] documented in this encounter Nursing Notes * Alisson Combs CMA - 01/08/2023 3:30 PM EDT Patient identifed by name and birthdate [...] it for you? ALREADY ACTIVE Filed Vitals: 01/08/23 1530 BP: 137/57 Pulse: 80 Temp: 36.7 C (98 F) TempSrc: Tympanic SpO2: 100% Weight: 85.9 kg (189 lb 6.4 oz) Patient was instructed to not get up on the exam table/exam chair until directed and assisted by their provider; patient is to remain seated in the chair/ wheelchair/ exam table/ exam chair for fall prevention and safety reasons. Patient is aware to have assistance to step down off exam table/exam chair with personnel. Patient voiced full comprehension of instructions. No data recorded documented in this encounter Plan of Treatment Upcoming Encounters Date Type Specialty Care Team Description 01/23/2023 Laboratory Laboratory [place], Lab Scenery 200 [place] [address] 01/24/2023 Hem/Onc Treatment Hematology Oncology [place], Chair 7 Hem Onc Scenery 200 [place] [address] 02/20/2023 Laboratory Laboratory [place], Lab Scenery 200 [place] [address] 02/21/2023 Office Visit Hematology Oncology Nik Melo MD 200 [place] [address] 02/21/2023 Hem/Onc Treatment Hematology Oncology 04/04/2023 Office Visit Urology Cm Rhodes MD [address] [place] [address] [place] [address] Health Maintenance Due Date Last Done Comments [...] this encounter Medical Devices Implanted Type Area Trucker Device Identifier Shelf Expiration Date Model / Serial / Lot Cath Power Port 6fr Clearvue - [id number] Implanted:Qty : 1 on 08/10/2021 by Alexander Rodriguez MD at [facility] Left: Subclavian CR BARD : PERIPHERAL VASCULAR 08/21/2021 [id number] / / documented as of this encounter Visit Diagnoses Diagnosis 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 Care Teams Promotions Representative Relationship Specialty Start Date End Date Hortencia Leal PA-C [address] [place] [address] PCP - General Physician Computer Network And Systems Engineer 02/08/18 documented as of this encounter
--- OUTSIDE RECORDS SUMMARY | 2023-06-27 07:43 | External Medical Summary | Summary of Care ---
Author Name Unknown Organization [facility] Address 100 [facility] [place] [address] Phone [phone] Care Team Providers Care Security Support Analyst Name Role Phone Hortencia Leal PA-C Primary Care Provid er Reason for Visit * Reason Onset Date Comments Information 01/01/2023 Encounter Details Date Type Department Care Team Description 01/01/2023 Telephone Hematology/Oncology [facility] 200 [facility] [address] Nik Melo MD 200 [place] [address] Information Allergies Active Allergy Reactions Severity Noted Date Comments Amlodipine 11/02/2020 dizziness Codeine Sulfate Other (Please comment) 10/26/19 11 hyperactivity Hydrochlorothiazide 11/02/2020 hypercalcemia Oxaliplatin 02/09/2022 Infusion related reaction documented as of this encounter (statuses as of 01/01/2023) Medications Medication Sig Dispensed Refills Start Date [...] times a day. As needed 0 Active [place]-3 Fatty Acids (FISH OIL) 1000 MG Capsule [...] Oral Capsule Take by mouth. 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 60 Tablet 2 10/03/2021 Active Polyethylene Glycol 3350 17 GM/SCOOP Oral Powder (MiraLax) Take 17 g by mouth daily. 0 Active Ondansetron HCl 8 MG Oral TabletIndications:Mal ignant 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) Take by mouth 1 Tablet every 8 hours as needed for Nausea. 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 Patient also had biopsy 12/29/22 due to concern for recurrent disease. Advised patient that we will also get a follow up scheduled with Dr Melo for 1-2 weeks after biopsy to review both pathology andPET results. Offered appt for Monday 01/08- patient accepted. Scheduling: please add patient for appt with Dr Melo 01/08 at 3:30pm. Patient aware. Thanks * Telephone Encounter - Venecia Carlin CMA - 01/01/2023 2:24 PM EDT Patient was due to have PET last week but due to high blood sugar could not be done and was rescheduled to 01/02 after being rescheduled he ended up at [facility] and had two EGDS that he stated Dr. Melo ordered. Wants to know if he should still or does he still have to have the PET tomorrow 01/02. Please call as soon as possible to advise if he needs the PET [phone] * Telephone Encounter - Opal Wesley LPN - 01/01/2023 9:12 AM EDT Patient called this morning and left message. He would like a return call at [phone]. No further information was left. documented in this encounter Plan of Treatment Upcoming Encounters Date Type Specialty Care Team Description 01/02/2023 Imaging Radiology 01/23/2023 Laboratory Laboratory [place], Lab Scenery [address] [place] [address] 01/24/2023 Hem/Onc Treatment Hematology Oncology [place], Chair 7 Hem Onc Scenery 200 [facility] [place] [address] 02/20/2023 Laboratory Laboratory [place], Lab Scenery 200 [facility] [place] [address] 02/21/2023 Office Visit Hematology Oncology Nik Melo MD 200 [place] [address] 02/21/2023 Hem/Onc Treatment Hematology Oncology 04/04/2023 Office Visit Urology Cm Rhodes MD 27 [facility] [address] [place] [address] Health Maintenance Due Date Last [...] this encounter Medical Devices Implanted Type Area Bioinformatics Associate Device Identifier Shelf Expiration Date Model / Serial / Lot Cath Power Port 6fr Clearvue - [id number] Implanted:Qty : 1 on 08/10/2021 by Alexander Rodriguez MD at [facility] Left: Subclavian CR BARD : PERIPHERAL VASCULAR 08/21/2021 [id number] / / documented as of this encounter [...] and were consensually agreed upon. Care Teams Security Support Analyst Relationship Specialty Start Date End Date Hortencia Leal PA-C [address] [facility], [place] [address] PCP - General Physician Tongue Trimmer 02/08/18 documented as of this encounter
--- OUTSIDE RECORDS SUMMARY | 2023-06-27 07:43 | External Medical Summary | Summary of Care ---
Author Name Unknown Organization [facility] Address 100 [facility] [place] [address] Phone [phone] Care Team Providers Care Right Of Way Manager Name Role Phone Hortencia Leal PA-C Primary Care Provid er Reason for Visit * Reason Onset Date Comments Information 01/01/2023 Encounter Details Date Type Department Care Team Description 01/01/2023 Telephone Hematology/Oncology [facility] [address] Nik Melo MD 200 [place] [address] Information Allergies Active Allergy Reactions Severity Noted [...] times a day. As needed 0 Active [place]-3 Fatty Acids (FISH OIL) 1000 MG Capsule [...] He would like a return call at [phone]. No further information was left. documented in this encounter Plan of Treatment Upcoming Encounters Date Type Specialty Care Team Description 01/02/2023 Imaging Radiology 01/23/2023 Laboratory Laboratory [place], Lab Scenery 200 [facility] [place] [address] 01/24/2023 Hem/Onc Treatment Hematology Oncology [place], Chair 7 Hem Onc [facility] 200 [place] [address] 02/20/2023 Laboratory Laboratory [facility] Lab [facility] 200 [place] [address] 02/21/2023 Office Visit Hematology Oncology Nik Melo MD 200 [place] [address] 02/21/2023 Hem/Onc Treatment Hematology Oncology 04/04/2023 Office Visit Urology Cm Rhodes MD 27 [facility] [place] [address] [place] [address] Health Maintenance Due Date Last Done Comments [...] this encounter Medical Devices Implanted Type Area Bolt Machine Operator Device Identifier Shelf Expiration Date Model / Serial / Lot Cath Power Port 6fr Clearvue - [id number] Implanted:Qty : 1 on 08/10/2021 by Alexander Rodriguez MD at [place] [facility] Left: Subclavian CR BARD : PERIPHERAL VASCULAR 08/21/2021 [id number] / / documented as of this encounter [...] and were consensually agreed upon. Care Teams Right Of Way Manager Relationship Specialty Start Date End Date Hortencia Leal PA-C [address] [facility] [address] PCP - General Physician Therapeutic Consultant 02/08/18 documented as of this encounter
--- OUTSIDE RECORDS SUMMARY | 2023-06-27 07:43 | External Medical Summary | Summary of Care ---
Author Name Unknown Organization [facility] Address 100 [facility] [place] [address] Phone [phone] Care Team Providers Care Fuel Assembler Name Role Phone Hortencia Leal PA-C Primary Care Provid er Encounter Details Date Type Department Care Team Description 2022 Orders Only Gastroenterology, [facility] [address] [place] [address] Nohemi Renteria DO [address] [place] [address] Allergies Active Allergy Reactions Severity Noted Date Comments Amlodipine 11/02/2020 dizziness Codeine Sulfate Other (Please comment) 10/26/19 11 hyperactivity Hydrochlorothiazide 11/02/2020 hypercalcemia Oxaliplatin 02/09/2022 Infusion related reaction documented as of this encounter (statuses as of 2022) Medications Medication Sig Dispensed Refills Start Date [...] times a day. 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 documented as of this encounter (statuses as of 2022) Immunizations Name Administration Dates Next Due COVID-19 [...] Description 01/02/2023 Imaging Radiology 01/23/2023 Laboratory Laboratory [place], Lab Scenery 200 [facility] [place] [address] 01/24/2023 Hem/Onc Treatment Hematology Oncology [place], Chair 7 Hem Onc Scenery 200 [place] [address] 02/20/2023 Laboratory Laboratory [facility] Lab Scenery 200 [facility] [place] [address] 02/21/2023 Office Visit Hematology Oncology Nik Melo MD 200 [place] [address] 02/21/2023 Hem/Onc Treatment Hematology Oncology 04/04/2023 Office Visit Urology Cm Rhodes MD 27 [facility] 270 [facility] [place] [address] Health Maintenance Due Date Last [...] encounter Medical Devices Implanted Type Area Director Drug Safety Device Identifier Shelf Expiration Date Model / Serial / Lot Cath Power Port 6fr Clearvue - [id number] Implanted:Qty : 1 on 08/10/2021 by Alexander Rodriguez MD at OR [facility] [place] Left: Subclavian CR BARD : PERIPHERAL VASCULAR 08/21/2021 [id number] / / documented as of this encounter Procedures Procedure Name Priority Date/Time Associated Diagnosis Comments UPPER GI ENDOSCOPY 2022 documented in this encounter Results * UPPER GI ENDOSCOPY (2022) 2022 Nohemi Renteria DO GASTRO UPPER documented in this encounter Advance Directives Latest [...] were consensually agreed upon. Care Teams Fuel Assembler Relationship Specialty Start Date End Date Hortencia Leal PA-C [facility] [facility] [address] PCP - General Physician Eeo Officer 02/08/18 documented as of this encounter
--- OUTSIDE RECORDS SUMMARY | 2023-06-27 07:43 | External Medical Summary | Summary of Care ---
Author Name Unknown Organization [facility] Address [address] [facility] [place] [address] Phone [phone] Care Team Providers Care Form Grader Operator Name Role Phone Hortencia Leal PA-C Primary Care Provid er Reason for Visit * Reason Onset Date Comments Other 12/25/2022 Encounter Details Date Type Department Care Team Description 12/25/2022 Telephone Hematology/Oncology [facility] 200 [facility] [address] Nik Melo MD 200 [place] [address] Other Allergies Active Allergy Reactions Severity Noted Date Comments Amlodipine 11/02/2020 dizziness Codeine Sulfate Other (Please comment) 10/26/19 11 hyperactivity Hydrochlorothiazide 11/02/2020 hypercalcemia Oxaliplatin 02/09/2022 Infusion related reaction documented as of this encounter (statuses as of 12/26/2022) Medications Medication Sig Dispensed Refills Start Date [...] a day. 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 * Telephone Encounter - TANI Johnson - 12/25/2022 3:18 PM EST -patient was not able to have PET/CT Scan done prior to your appt on 12/27/22. Due to blood sugars are to high. Scan has been rescheduled to 01/02/23. Patient would like to keep all appts as scheduled if you can just call him with the PET/CT Scan results? Please advise? Patient is also gettingtreatment after seeing you on 12/27/22. documented in this encounter Plan of Treatment Upcoming Encounters Date Type Specialty Care Team Description 12/26/2022 Laboratory Laboratory [facility] [address] [place] [address] 12/27/2022 Office Visit Hematology Oncology Nik Melo MD [address] [place] [address] 12/27/2022 Hem/Onc Treatment Hematology Oncology [place], Chair 8 Hem Onc Sc[facility] 200 [facility] [place] [address] 01/02/2023 Imaging Radiology 04/04/2023 Office Visit Urology Cm Rhodes MD 27 [facility] [place] [address] [place] [address] Health Maintenance Due Date Last Done Comments [...] this encounter Medical Devices Implanted Type Area Training Instructor Device Identifier Shelf Expiration Date Model / Serial / Lot Cath Power Port 6fr Clearvue - [id number] Implanted:Qty : 1 on 08/10/2021 by Alexander Rodriguez MD at OR [facility] [place] Left: Subclavian CR BARD : PERIPHERAL VASCULAR 08/21/2021 [id number] / / documented as of this encounter [...] and were consensually agreed upon. Care Teams Form Grader Operator Relationship Specialty Start Date End Date Hortencia Leal PA-C [address] [facility] [place] [address] PCP - General Physician Post Splitter 02/08/18 documented as of this encounter
--- OUTSIDE RECORDS SUMMARY | 2023-06-27 07:43 | External Medical Summary | Summary of Care ---
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 As needed 0 Active [place]-3 Fatty Acids (FISH OIL) 1000 MG Capsule [...] Encounters Date Type Specialty Care Team Description 12/27/2022 Office Visit Hematology Oncology Nik Melo MD 200 [place] [address] 12/27/2022 Hem/Onc Treatment Hematology Oncology [place], Chair 8 Hem Onc [facility] 200 [place] [address] 01/02/2023 Imaging Radiology 04/04/2023 Office Visit Urology Cm Rhodes MD [address] [place] [address] [place] [address] Pending Results Name Type Priority Associated Diagnoses Date /Time COMPREHENSIVE METABOLIC PANEL Lab STAT Encounter for adjustment and management of vascular access device 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) Prostate cancer (HCC) 12/26/2022 11:21 AM EST TSH WITH FREE T4 IF INDICATED Lab STAT Encounter for adjustment and management of vascular access device 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) Prostate cancer (HCC) 12/26/2022 11:21 AM EST Health Maintenance Due Date Last Done Comments [...] this encounter Medical Devices Implanted Type Area Beer Maker Device Identifier Shelf Expiration Date Model / Serial / Lot Cath Power Port 6fr Clearvue - [id number] Implanted:Qty : 1 on 08/10/2021 by Alexander Rodriguez MD at [facility] Left: Subclavian CR BARD : PERIPHERAL VASCULAR 08/21/2021 [id number] / / documented as of this encounter Procedures Procedure Name Priority Date/Time Associated Diagnosis Comments DIFFERENTIAL, AUTOMATED STAT 12/26/2022 11:21 AM EST Encounter for adjustment and management of vascular access device 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) Prostate cancer (HCC) CBC WITH WBC DIFFERENTIAL STAT 12/26/2022 11:21 AM EST Encounter for adjustment and management of vascular access device 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) Prostate cancer (HCC) CBC STAT 12/26/2022 11:21 AM EST Encounter for adjustment and management of vascular access device 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) Prostate cancer (HCC) documented in this encounter Results * DIFFERENTIAL, AUTOMATED (12/26/2022 11:21 AM EST) WBC 8.75 4.00 - 10.80 K/uL 12/26/2022 11:26 AM EST [facility] 56-02 Neutrophils % 68.4 40.0 - 75.0 % 12/26/2022 11:26 AM [facility] 56-02 Lymphocytes % 21.5 18.0 - 42.0 % 12/26/2022 11:26 AM [facility] 56-02 Monocytes % 7.5 1.0 - 11.0 % 12/26/2022 11:26 AM [facility] 56-02 Eosinophils % 2.4 0.0 - 6.0 % 12/26/2022 11:26 AM [facility] 56-02 Basophils % 0.2 0.0 - 2.0 % 12/26/2022 11:26 AM [facility] 56-02 Absolute Neutrophils 5.98 1.80 - 7.70 K/uL 12/26/2022 11:26 AM [facility] 56-02 Absolute Lymphocytes 1.88 1.00 - 4.80 K/ul 12/26/2022 11:26 AM [facility] 56-02 Absolute Monocytes 0.66 0.00 - 1.10 K/uL 12/26/2022 11:26 AM [facility] 56-02 Absolute Eosinophils 0.21 0.00 - 0.70 K/uL 12/26/2022 11:26 AM [facility] 56-02 Absolute Basophils 0.02 0.00 - 0.20 K/uL 12/26/2022 11:26 AM [facility] 56-02 Blood Venous blood specimen / Unknown Venipuncture / Unknown 12/26/2022 11:21 AM EST 12/26/2022 11:21 AM EST Nik Melo MD LAB BLOOD [facility] 56-[address] [place] [address] * (ABNORMAL) CBC (12/26/2022 11:21 AM EST) WBC 8.75 4.00 - 10.80 K/uL 12/26/2022 11:26 AM [facility] 56- RBC 3.01 4.50 - 5.25 M/uL 12/26/2022 11:26 AM [facility] 56-02 HGB 9.7(L) 14.0 - 16.8 g/dL 12/26/2022 11:26 AM [facility] 56 HCT 31.2(L) 40.0 - 48.4 % 12/26/2022 11:[address] MCV 103.7 82.0 - 99.5 fL 12/26/2022 11:[address] MCH 32.2 27.0 - 34.0 pg 12/26/2022 11:[address] MCHC 31.1 32.0 - 36.0 g/dL 12/26/2022 11:[address] RDW 16.8 11.5 - 15.5 % 12/26/2022 11:[address] PLT 194 140 - 400 K/uL 12/26/2022 11:[address] MPV 8.5 6.6 - 11.1 fL 12/26/2022 11:[address] Blood Venous blood specimen / Unknown Venipuncture / Unknown 12/26/2022 11:21 AM EST 12/26/2022 11:21 AM EST Nik Melo MD LAB BLOOD [facility] [address] [place] [address] documented in this encounter Visit Diagnoses Diagnosis [...] and were consensually agreed upon. Care Teams Airplane Pilot Photogrammetry Relationship Specialty Start Date End Date Hortencia Leal PA-C [address] [facility], [place] [address] PCP - General Physician Valve Mechanic 02/08/18 documented as of this encounter
--- OUTSIDE RECORDS SUMMARY | 2023-06-27 07:43 | External Medical Summary | Summary of Care ---
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) Procedures LA INJECTION, NIVOLUMAB Nik Melo MD 200 [facility] [address] Anc Hem/Onc [address] [place] [address] Referral ID Status Reason Start Date Expiration Date V isits Requested Visits Authorized [id number] Authorized 02/09/2022 10/21/2099 99 99 Encounter Details Date Type Department Care Team Description 12/27/2022 Hem/Onc Treatment Hematology/Oncology Treatment, [facility] 200 [facility] [address] [place], Chair 8 Hem Onc [address] [place] [address] 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 Possible barriers to meeting goals: possible reaction to treatment Stability of the patient: Moderately stable - low risk of patient condition declining or worsening Summary regarding today's goals: Met: pt tolerated treatment well and remained free from injury Functional status at today's visit: Restricted in [...] or adverse side effects during treatment. Pt discharged in stable condition. * Lakeisha Cortez RN - 12/27/2022 11:43 AM EST Chair 12 Patient presents to the clinic today for OV with Dr Melo and Macey. Patient had labs done yesterday. Dr Melo approved patient for treatment today. He will return in 4 weeks for opdivo and 8 weeks to see provider. CVAD accessed, positive blood return noted. NS infusion started. Patient had a fall 3 weeks ago and is still recovering, he had an episode of vertigo when he was switching the laundry- he bruised entire left arm, still healing. He said he was not admitted. Safety and Risk for Injury Patient will remain free from injury. Ensure appropriate safety devices are available. Provide and maintain safe environment. documented in this encounter Plan of Treatment Upcoming Encounters Date Type Specialty Care Team Description 01/02/2023 Imaging Radiology 01/23/2023 Laboratory Laboratory [place], [facility] 200 [facility] [place] [address] 01/24/2023 Hem/Onc Treatment Hematology Oncology [place], Chair 7 Hem Onc Scenery 200 [facility] [place] [address] 02/20/2023 Laboratory Laboratory [place], Lab [facility] [address] 02/21/2023 Office Visit Hematology Oncology Nik Melo MD 200 [facility] [address] 02/21/2023 Hem/Onc Treatment Hematology Oncology 04/04/2023 Office Visit Urology Cm Rhodes MD 27 [facility] [address] [place] [address] Health Maintenance Due [...] this encounter Medical Devices Implanted Type Area Core Assembly Supervisor Device Identifier Shelf Expiration Date Model / Serial / Lot Cath Power Port 6fr Clearvue - [id number] Implanted:Qty : 1 on 08/10/2021 by Alexander Rodriguez MD at [facility] Left: Subclavian CR BARD : PERIPHERAL VASCULAR 08/21/2021 [id number] / / documented as of this encounter Visit Diagnoses Diagnosis 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)- Primary Prostate cancer (HCC) Malignant neoplasm of prostate documented in this encounter Administered Medications Active Administered Medications - up to 3 most recent administrations Medication Order MAR Action Action Date Dose Rate Site diphenhydrAMINE (Benadryl) inj 50 mg 50 mg, IV Push, ONCE PRN Other, Hypersensitivity Reaction, Starting on 12/27/22 at 1115, Until Chandrika 12/28/22 at 1114, For 24 hours EPINEPHrine 1 MG/ML inj 0.3 mg 0.3 mg, Intramuscular, ONCE PRN Other, Hypersensitivity Reaction or Anaphylaxis, Starting on 12/27/22 at 1115, Until Chandrika 12/28/22 at 1114, For 24 hours hEParin 100 UNIT/ML Lock Flush inj 500 Units 500 Units (5 mL), IV Lock, PRN Other, IV Flush, Starting on Sun12/27/22 at 1115, Until Chandrika 12/28/22 at 1114, For 24 hours, Do not flush if lock, PICC, or central line not in place; IV infusing or unable to flush. Given 12/27/2022 12:19 PM EST 500 Units Hydrocortisone Sod Suc (PF) (Solu-Cortef) inj 100 mg 100 mg, IV Push, ONCE PRN Other, Hypersensitivity Reaction, Starting on Sun12/27/22 at 1115, Until Chandrika 12/28/22 at 1114, For 24 hours NSS infusion 500 mL, Intravenous, at 50 mL/hr, CONTINUOUS, Starting on Sun12/27/22 at 1215, Until Sun12/27/22 at 2214 Start Infusion 12/27/2022 11:20 AM EST 500 mL 50 mL/hr sodium chloride 0.9 % flush central line 10 mL 10 mL, IV Push, PRN Other, IV Flush, Starting on Sun12/27/22 at 1115, Until Chandrika 12/28/22 at 1114, For 24 hours, Do not flush if lock, PICC, or central line not in place; IV infusing or unable to flush. Given 12/27/2022 12:19 PM EST 10 mL Inactive Administered Medications - up to 3 most recent administrations Medication Order MAR Action Action Date Dose Rate Site Nivolumab (Opdivo) 480 mg in NSS 100 mL ivpb 480 mg, IV Piggyback, ONCE, 1 dose, On Sun12/27/22 at 1200, Administer over 30 Minutes, DO NOT SHAKE Final concentration should be between 1 and 10 mg/ml Use a sterile, non-pyrogenic, low-protein binding in-line filter (0.2 micrometer-1.2 micrometer) Start Infusion 12/27/2022 11:49 AM EST 480 mg 200 mL/hr documented in this encounter Advance Directives [...] and were consensually agreed upon. Care Teams Adult Daycare Coordinator Relationship Specialty Start Date End Date Hortencia Leal PA-C [address] [place] [address] PCP - General Physician Radiology Services Manager 02/08/18 documented as of this encounter
--- OUTSIDE RECORDS SUMMARY | 2023-06-27 07:43 | External Medical Summary ---
Author Name Unknown Address Unknown Organization K09:[facility] [place] [id number] Laboratory Report Ordering Provider Test Date Status SHAY CH 12/26/2022 11:21:03 Final Observation Date Value Abnormality Reference (Units ) Status WBC, Total 12/26/2022 11:21:03 8.75 4.00-10.8 0 (K/uL) Final RBC 12/26/2022 11:21:03 3.01 4.50-5.25 (M/uL) Final Hemoglobin 12/26/2022 11:21:03 9.7 Below low normal 14 .0-16.8 (g/dL) Final HCT 12/26/2022 11:21:03 31.2 Below low normal 40. 0-48.4 (%) Final MCV 12/26/2022 11:21:03 103.7 82.0-99.5 (fL) Final MCH 12/26/2022 11:21:03 32.2 27.0-34.0 (pg) Final MCHC 12/26/2022 11:21:03 31.1 32.0-36.0 (g/dL) Final RDW 12/26/2022 11:21:03 16.8 11.5-15.5 (%) Final Platelets 12/26/2022 11:21:03 194 140-400 (K /uL) Final MPV 12/26/2022 11:21:03 8.5 6.6-11.1 ( fL) Final Performing Location [facility] [place] [address]
--- OUTSIDE RECORDS SUMMARY | 2023-06-27 07:43 | External Medical Summary | Summary of Care ---
Author Name Unknown Organization [facility] Address [address] [facility] [place] [address] Phone [phone] Care Team Providers Care Parts Counter Associate Name Role Phone Hortencia Leal PA-C Primary Care Provid er Reason for Visit * Reason Comments Chemotherapy Chemo/recheck * Evaluate & Treat - Unlimited Visits (Within 10 days (routine)) - Authorized Specialty Diagnoses / Procedures Referred By Lizzie reno Referred To Contact *Hem/Onc* Diagnoses Adenocarcinoma in situ of esophagus Prostate cancer (HCC) Procedures EVAL AND TREAT Tai Mccray MD [address] [place] [address] Referral ID Status Reason Start Date Expiration Date Visits Requested Visits Authorized [id number] Authorized Specialty Services Required 2 09/11/2023 999 999 Encounter Details Date Type Department Care Team Description 12/27/2022 Office Visit Hematology/Oncology [facility] 200 [facility] [place] [address] Nik Melo MD [address] [place] [address] 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 As needed 0 Active [place]-3 Fatty Acids (FISH OIL) 1000 MG Capsule [...] Sign Reading Time Taken Comments Blood Pressure 150/71 12/27/2022 10:57 AM EST Pulse 87 12/27/2022 10:57 AM EST Temperature 36.9 C (98.4 F) 12/27/2022 10:[address] Respiratory Rate 16 12/27/2022 10:57 AM EST Oxygen Saturation 99% 12/27/2022 10:57 AM EST Inhaled Oxygen Concentration - - Weight 88.1 kg (194 lb 4.8 oz) 12/27/2022 10:57 AM EST Height - - Body Mass Index 33.35 08/10/2021 8:15 AM EDT documented in this encounter Progress Notes * Nik Melo MD - 12/27/2022 11:20 AM EST Outpatient Consult Note Data Source: Patient, Epic record. Data Source: Patient, Epic record. 12/27/2022 11:20 AM Heath [place] [id number] 76 year old Patient Encounter: HEMATOLOGY/ONCOLOGY [facility] Cancer Diagnosis: -Metastatic esophageal cancer-laparoscopic biopsy of the peritoneal nodule which is positive for metastatic disease - Prostate cancer,pT2, Group IIA, Independence 3+4 Current Treatment: -Nivolumab was added on 11/02/2021 -on Eligard for the prostate cancer Previous Treatment: Received total of 9 cycles of FOLFOX.Nivolumab was added on 11/02/2021.Last chemotherapy was on02/08/2022. He had allergic reaction and subsequently FOLFOX chemotherapy was discontinued and now currently he is on single agent nivolumab Oncologic History : 76-year-old male with past medical history significant for [...] was consistent with adenocarcinoma moderately differentiated overall Independence score was 3+4=7with perineural invasion. Histopathology was [...] radical prostatectomy: Adenocarcinoma, moderately poorly differentiated Overall Independence score 3+4=7 High grade prostatic intraepithelial neoplasia [...] 0.6 cm HISTOLOGIC TYPE: Adenocarcinoma HISTOLOGIC GRADE (Independence): Primary pattern is: Grade 3: single acini of variable size and separation, cribriform and papillarypatterns Secondary pattern is: Grade 3: single acini of variable size and separation, cribriform and papillary patterns Independence Score (primary + secondary) = 5-6: Moderately well differentiated Nodule #2, involves: right lateral apex and right apex Dimensions: 0.9 x 0.3 x 0.9 cm HISTOLOGIC TYPE: Adenocarcinoma HISTOLOGIC GRADE (Independence): Primary pattern is: Grade 3: single acini [...] and fused epithelium, can show clear cells Independence Score (primary + secondary) = 7: Moderately [...] Interpretation: Benign mesothelial cells Interval History: He is doing well without any new symptoms complain. Tolerating nivolumab very well without any toxicity. He is eating well and gaining weight and has good energy level. Denies any headache, dizziness, blurred vision, chest pain, shortness breath palpitation abdominal pain or distention, bleeding, nausea, fever, night sweats, weight loss. LABS/IMAGING: Blood test done yesterday shows WBC count of 8.75, hemoglobin 9.7 and platelet count 194. Creatinine was 1.94 and the rest of the electrolytes and LFTs were in acceptable range. REVIEW OF SYSTEMS: General: [...] mouth 2 times a day. As needed [place]-3 Fatty Acids (FISH OIL) 1000 MG Capsule Take 1,000 mg by mouth daily. 2 capsules by mouth twice daily Alogliptin Benzoate 12.5 MG TABS Take 12.5 mg by mouth daily. Ferrous Sulfate 325 (65 Fe) MG Oral Tablet (Feosol) TAKE ONE TABLET BY MOUTH EVERY 48 HOURS SAME IRON Vitamin C 500 MG Oral Capsule Take by mouth. Prochlorperazine Maleate 10 MG Oral Tablet (Compazine) Take 1 Tablet by mouth every 6 hours as needed for Nausea. 60 Tablet 2 Polyethylene Glycol 3350 17 GM/SCOOP Oral Powder (MiraLax) Take 17 g by mouth daily. Ondansetron HCl 8 MG Oral Tablet Take by mouth 1 Tablet every 8 hours as needed for Nausea. 60 Tablet 3 No current facility-administered medications for this visit. Facility-Administered Medications Ordered in Other Visits Medication Dose Route Frequency Provider Last Rate Last Admin NSS infusion 500 mL Intravenous Continuous Nik Melo MD hEParin 100 UNIT/ML Lock Flush inj 500 Units 5 mL IV Lock PRN Nik Melo MD sodium chloride 0.9 % flush central line 10 mL 10 mL IV Push PRN Nik Melo MD Nivolumab (Opdivo) 480 mg in NSS 100 mL ivpb 480 mg IV Piggyback Once Nik Melo MD diphenhydrAMINE (Benadryl) inj 50 mg 50 mg IV Push Once PRN Nik Melo MD Hydrocortisone Sod Suc (PF) (Solu-Cortef) inj 100 mg 100 mg IV Push Once PRN Nik Melo MD EPINEPHrine 1 MG/ML inj 0.3 mg 0.3 mg Intramuscular Once PRN Nik Melo MD Social History Tobacco Use Smoking status: Never Smokeless tobacco: Never Vaping Use Vaping Use: Never used Substance Use Topics Alcohol use: No Drug use: No Review of patient's allergies indicates: Allergen Reactions Amlodipine dizziness Codeine Sulfate Other (Please comment) hyperactivity Hctz [Hydrochlorothiazide] hypercalcemia Oxaliplatin Infusion related reaction PHYSICAL EXAMINATION: General Appearance: Healthy appearing patient in no acute distress BP 150/71 (BP Site: Left Arm, BP Position: Sitting, BP Cuff Size: Regular) | Pulse 87 | Temp 36.9 C (98.4 F) (Tympanic) | Resp 16 | Wt 88.1 kg (194 lb 4.8 oz) | SpO2 99% | BMI 33.35 kg/m | BSA 1.99 m Vitals reviewed. HEENT: No oral or [...] only. Currently he is on single agent nivolumab with good tolerance without any significant side effect toxicity. Follow-up PET scan shows complete remission with no evidence of active disease. Clinically he is doing well in good performance status and tolerating treatment very well without any side effects toxicity. Physical examination is unremarkable. Blood counts are in stable range. Hehas history of CKD and has anemia. He is scheduled for the repeat follow-up PET scan on 01/02/2023. Discussed with the patient about diagnosis reviewed all the available blood test result with him. PLAN: As above. Continue current treatment. He will return clinic for follow-up 2 months. The patient voiced understanding of all of [...] Nursing Notes * Venecia Carlin CMA - 12/27/2022 10:57 AM EST Patient identifed by name and birthdate Do you have any concerns about pain management for today's visit? No Living Will or Advance Directive for Health Care as noted on the problem list. [facility] is a way you can talk to your provider on line through e-mail. Would you like to sign up? I can activate it for you? ALREADY ACTIVE Filed Vitals: 12/27/22 1057 BP: 150/71 Pulse: 87 Resp: 16 Temp: 36.9 C (98.4 F) TempSrc: Tympanic SpO2: 99% Weight: 88.1 kg (194 lb 4.8 oz) Patient was instructed to [...] full comprehension of instructions. Distress Score: 0 NOTE: Patient unable to have PET scan as scheduled due to hyperglycemia; rescheduled to next week documented in this encounter Plan of Treatment Upcoming Encounters Date Type Specialty Care Team Description 01/02/2023 Imaging Radiology 01/23/2023 Laboratory Laboratory [facility], Lab Scenery [address] [place], [place] [address] 01/24/2023 Hem/Onc Treatment Hematology Oncology [place]addy, Chair 7 Hem Onc Scenery 200 [place] [address] 02/20/2023 Laboratory Laboratory [facility] Lab Scene 200 [place] [address] 02/21/2023 Office Visit Hematology Oncology Nik Melo MD 200 [place] [address] 02/21/2023 Hem/Onc Treatment Hematology Oncology 04/04/2023 Office Visit Urology Cm Rhodes MD 27 [facility] [address] [place], [place] [id number] Health Maintenance Due Date Last Done Comments [...] this encounter Medical Devices Implanted Type Area Process Development Associate Device Identifier Shelf Expiration Date Model / Serial / Lot Cath Power Port 6fr Clearvue - [id number] Implanted:Qty : 1 on 08/10/2021 by Alexander Rodriguez MD at [facility] Left: Subclavian CR BARD : PERIPHERAL VASCULAR 08/21/2021 [id number] / / documented as of this encounter [...] and were consensually agreed upon. Care Teams Parts Counter Associate Relationship Specialty Start Date End Date Hortencia Leal PA-C [address] [place] [id number] PCP - General Physician Sandwich Wrapper 02/08/18 documented as of this encounter"
--- OUTSIDE RECORDS SUMMARY | 2023-06-27 07:43 | External Medical Summary ---
Author Name Unknown Address Unknown Organization K01:[facility] - [address] [address] Laboratory Report Ordering Provider Test Date Status SHAY CH 12/26/2022 11:21:03 Final Observation Date Value Abnormality Reference (Units ) Status TSH 12/26/2022 11:21:03 0.78 0.27-4.20 (uIU/mL) Final Performing Location [facility] - [address] [place] [address]
--- OUTSIDE RECORDS SUMMARY | 2023-06-27 07:43 | External Medical Summary | Summary of Care ---
Author Name Unknown Organization [facility] Address [address] [facility] [place] [address] Phone [phone] Care Team Providers Care Deposit Clerk Name Role Phone Hortencia Leal PA-C Primary Care Provid er Encounter Details Date Type Department Care Team Description 12/29/2022 Result Scan Unspecified Department Nohemi Renteria DO [address] [place] [address] <No scans attached> Allergies Active Allergy Reactions Severity Noted Date Comments Amlodipine 11/02/2020 dizziness Codeine Sulfate Other (Please comment) 10/26/19 11 hyperactivity Hydrochlorothiazide 11/02/2020 hypercalcemia Oxaliplatin 02/09/2022 Infusion related reaction documented as of this encounter (statuses as of 01/03/2023) Medications Medication Sig Dispensed Refills Start Date [...] times a day. 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 documented as of this encounter (statuses as of 01/03/2023) Immunizations Name Administration Dates Next Due COVID-19 [...] Encounters Date Type Specialty Care Team Description 01/08/2023 Office Visit Hematology Oncology Nik Melo MD [address] [place] [address] 01/23/2023 Laboratory Laboratory [facility] Lab Scenery [address] [place] [address] 01/24/2023 Hem/Onc Treatment Hematology Oncology [place], Chair 7 Hem Onc Scenery [address] [place] [address] 02/20/2023 Laboratory Laboratory [place], Lab Scenery 200 [facility] [place] [address] 02/21/2023 Office Visit Hematology Oncology Nik Melo MD [address] [place] [address] 02/21/2023 Hem/Onc Treatment Hematology Oncology 04/04/2023 Office Visit Urology Cm Rhodes MD 27 [facility] [address] [place] [address] Health Maintenance Due Date Last [...] encounter Medical Devices Implanted Type Area Senior Materials Planner Device Identifier Shelf Expiration Date Model / Serial / Lot Cath Power Port 6fr Clearvue - [id number] Implanted:Qty : 1 on 08/10/2021 by Alexander Rodriguez MD [place] [facility] Left: Subclavian CR BARD : PERIPHERAL VASCULAR 08/21/2021 [id number] / / documented as of this encounter Procedures Procedure Name Priority Date/Time Associated Diagnosis Comments PATHOLOGY SCANNED RESULT 12/29/2022 documented in this encounter Results * PATHOLOGY SCANNED RESULT (12/29/2022) 12/29/2022 Nohemi Renteria DO PATHOLOGY documented in this encounter Advance Directives Latest [...] and were consensually agreed upon. Care Teams Deposit Clerk Relationship Specialty Start Date End Date Hortencia Leal PA-C [address] [facility], [place] [address] PCP - General Physician Dobby Loom Fixer 02/08/18 documented as of this encounter
--- OUTSIDE RECORDS SUMMARY | 2023-06-27 07:43 | External Medical Summary | Summary of Care ---
Author Name Unknown Organization [facility] Address 100 [facility] [place] [address] Phone [phone] Care Team Providers Care Airport Guide Name Role Phone Hortencia Leal PA-C Primary Care Provid er Reason for Visit * Reason Onset Date Comments Information 01/01/2023 Encounter Details Date Type Department Care Team Description 01/01/2023 Telephone [facility]ematology/Oncology [facility] [address] Nik Melo MD 200 [place] [address] Information Allergies Active Allergy Reactions Severity Noted [...] times a day. As needed 0 Active [place]-3 Fatty Acids (FISH OIL) 1000 MG Capsule [...] after being rescheduled he ended up at [facility] and had two EGDS that he stated Dr. Melo ordered. Wants to know if he should still or does he still have to have the PET tomorrow 01/02. Please call as soon as possible to advise if he needs the PET [phone] * Telephone Encounter - Opal Wesley LPN - 01/01/2023 9:12 AM EDT Patient called this morning and left message. He would like a return call at [phone]. No further information was left. documented in this encounter Plan of Treatment Upcoming Encounters Date Type Specialty Care Team Description 01/02/2023 Imaging Radiology 01/23/2023 Laboratory Laboratory [facility], Lab Scenery [address] [place] [address] 01/24/2023 Hem/Onc Treatment Hematology Oncology Maddy, Chair 7 Hem Onc Scenery [address] [place] [address] 02/20/2023 Laboratory Laboratory [facility], Lab Scenery [address] [place] [address] 02/21/2023 Office Visit Hematology Oncology Nik Melo MD 200 [place] [address] 02/21/2023 Hem/Onc Treatment Hematology Oncology 04/04/2023 Office Visit Urology Cm Rhodes MD [address] [place] [address] Health Maintenance Due Date Last Done [...] this encounter Medical Devices Implanted Type Area Demolition Engineer Device Identifier Shelf Expiration Date Model / Serial / Lot Cath Power Port 6fr Clearvue - [id number] Implanted:Qty : 1 on 08/10/2021 by Alexander Rodriguez MD at OR [facility] Left: Subclavian CR BARD : PERIPHERAL VASCULAR 08/21/2021 [id number] / / documented as of this encounter [...] and were consensually agreed upon. Care Teams Airport Guide Relationship Specialty Start Date End Date Hortencia Leal PA-C [address] [facility] [place] [address] PCP - General Physician Pulp Maker 02/08/18 documented as of this encounter
--- OUTSIDE RECORDS SUMMARY | 2023-06-27 07:43 | External Medical Summary | Summary of Care ---
Author Name Unknown Organization [facility] Address [address] [facility] [place] [address] Phone [phone] Care Team Providers Care Recording Clerk Name Role Phone Hortencia Leal PA-C Primary Care Provid er Reason for Visit * Reason Onset Date Comments Information 01/01/2023 Encounter Details Date Type Department Care Team Description 01/01/2023 Telephone Hematology/Oncology [facility] [address] Nik Melo MD 200 [place] [address] Information Allergies Active Allergy Reactions Severity Noted [...] times a day. As needed 0 Active [place]-3 Fatty Acids (FISH OIL) 1000 MG Capsule [...] Encounter - Venecia Carlin CMA - 01/01/2023 3:34 PM EDT scheduled * Telephone Encounter - Venita Byers RN [...] being rescheduled he ended up at [facility] and had two EGDS that he stated Dr. Melo ordered. Wants to know if he should still or does he still have to have the PET tomorrow 01/02. Please call as soon as possible to advise if he needs the PET [phone] * Telephone Encounter - Opal Wesley LPN - 01/01/2023 9:12 AM EDT Patient called this morning and left message. He would like a return call at [phone]. No further information was left. documented in this encounter Plan of Treatment Upcoming Encounters Date Type Specialty Care Team Description 01/02/2023 Imaging Radiology 01/08/2023 Office Visit Hematology Oncology Nik Melo MD [address] [place] [address] 01/23/2023 Laboratory Laboratory [facility] Lab Scenery 200 [place] [address] 01/24/2023 Hem/Onc Treatment Hematology Oncology [place], Chair 7 Hem Onc Scenery 200 [place] [address] 02/20/2023 Laboratory Laboratory [facility] Lab Scenery 200 [place] [address] 02/21/2023 Office Visit Hematology Oncology Nik Melo MD [address] [place] [address] 02/21/2023 Hem/Onc Treatment Hematology Oncology 04/04/2023 Office Visit Urology Cm Rhodes MD [address] [place] [address] [place] [address] Health Maintenance Due Date Last Done Comments [...] encounter Medical Devices Implanted Type Area Administration Professional Device Identifier Shelf Expiration Date Model / Serial / Lot Cath Power Port 6fr Clearvue - [id number] Implanted:Qty : 1 on 08/10/2021 by Alexander Rodriguez MD at [place] [facility] [place] Left: Subclavian CR BARD : PERIPHERAL VASCULAR 08/21/2021 [id number] / / documented as of this encounter [...] and were consensually agreed upon. Care Teams Recording Clerk Relationship Specialty Start Date End Date Hortencia Leal PA-C [address] [place] [address] PCP - General Physician Retail Selling Specialist 02/08/18 documented as of this encounter
--- OUTSIDE RECORDS SUMMARY | 2023-06-27 07:43 | External Medical Summary | Summary of Care ---
Author Name Unknown Organization [facility] Address [address] [facility] [place] [address] Phone [phone] Care Team Providers Care Finishing Technician Name Role Phone Hortencia Leal PA-C Primary Care Provid er Encounter Details Date Type Department Care Team Description 12/29/2022 Result Scan Unspecified Department Nohemi Renteria DO [address] [place] [address] <No scans attached> Allergies Active Allergy Reactions [...] times a day. As needed 0 Active [place]-3 Fatty Acids (FISH OIL) 1000 MG Capsule [...] Visit Hematology Oncology Nik Melo MD 200 [place] [address] 01/23/2023 Laboratory Laboratory [facility] Lab Scenery 200 [place] [address] 01/24/2023 Hem/Onc Treatment Hematology Oncology [place], Chair 7 Hem Onc Scenery [address] [place] [address] 02/20/2023 Laboratory Laboratory [place], Lab Scenery 200 [facility] [place] [address] 02/21/2023 Office Visit Hematology Oncology Nik Melo MD 200 [place] [address] 02/21/2023 Hem/Onc Treatment Hematology Oncology 04/04/2023 Office Visit Urology Cm Rhodes MD 27 [facility] [address] [place] [address] Health Maintenance Due Date Last [...] this encounter Medical Devices Implanted Type Area Health Workers Device Identifier Shelf Expiration Date Model / Serial / Lot Cath Power Port 6fr Clearvue - [id number] Implanted:Qty : 1 on 08/10/2021 by Alexander Rodriguez MD at [place] [facility] Left: Subclavian CR BARD : PERIPHERAL VASCULAR 08/21/2021 [id number] / / documented as of this encounter [...] and were consensually agreed upon. Care Teams Finishing Technician Relationship Specialty Start Date End Date Hortencia Leal PA-C [address] [facility], [place] [address] PCP - General Physician Lumber Bearer 02/08/18 documented as of this encounter
--- OUTSIDE RECORDS SUMMARY | 2023-06-27 07:43 | External Medical Summary | Summary of Care ---
Author Name Unknown Organization [facility] Address [address] [facility] [place] [address] Phone [phone] Care Team Providers Care Software Test Engineer Name Role Phone Hortencia Leal PA-C Primary Care Provid er Encounter Details Date Type Department Care Team Description 01/07/2023 Orders Only Hematology/Oncology [facility] [place] [address] [facility] [place] [address] Nik Melo MD [address] [place] [address] Allergies Active Allergy Reactions Severity Noted Date Comments Amlodipine 11/02/2020 dizziness Codeine Sulfate Other (Please comment) 10/26/19 11 hyperactivity Hydrochlorothiazide 11/02/2020 hypercalcemia Oxaliplatin 02/09/2022 Infusion related reaction documented as of this encounter (statuses as of 01/07/2023) Medications Medication Sig Dispensed Refills Start Date [...] times a day. 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 Dilute in NS only. Urine protein check recommended at baseline and periodically during therapy Paclitaxel 80 mg/m in 250 mL NS IV over 60 minutes on days 1, 8, and 15 Always confirm dose/schedule in your pharmacy ordering system Citations: -Marcelle H, Shelley K, Van Hunter E, et al. Ramucirumab plus paclitaxel versus placebo plus paclitaxel in patients with previously treated advanced gastric or gastro-oesophageal junction adenocarcinoma (RAINBOW): a double-blind, randomised phase 3 trial. Lancet Oncol. 2014;15(11):8313-0508. 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, Adenocarcinoma - Esophageal, GE Junction,and Gastric, Second Line, CANDI/pMMR or MSI Unknown Histology: Adenocarcinoma Disease Classification: Esophageal Therapeutic Status: Distant Metastases (No Additional Staging) Line of Therapy: Second Line Microsatellite/Mismatch Repair Status: Unknown Intent of Therapy: Non-Curative / Palliative Intent, Discussed with Patient Treatment Details: START ON PATHWAY REGIMEN GEOS14: Ramucirumab 8 mg/kg Days 1, 15 + Paclitaxel 80 mg/m Days 1, 8, 15 q28 Days Until Progression or Unacceptable Toxicity A cycle is every 28 days: Ramucirumab (Cyramza) 8 mg/kg in 250 mL NS IV over 60 min q2 weeks, PRIOR TO PACLITAXEL. Dilute in NS only. Urine protein check recommended at baseline and periodically during therapy Paclitaxel 80 mg/m in 250 mL NS IV over 60 minutes on days 1, 8, and 15 Always confirm dose/schedule in your pharmacy ordering system Citations: -Marcelle H, Shelley K, Van Hunter E, et al. Ramucirumab plus paclitaxel versus placebo plus paclitaxel in patients with previously treated advanced gastric or gastro-oesophageal junction adenocarcinoma (RAINBOW): a double-blind, randomised phase 3 trial. Lancet Oncol. 2014;15(11):8820-4633. URL: http://www.ncbi.nlm.nih.gov/pubmed/61226987 Change Reason: Disease Progression Prior Treatment: GEOS3: mFOLFOX6 q14 Days Until Progression or Unacceptable Toxicity Treatment Response: Complete Response (CR) documented in this encounter Plan of Treatment Upcoming Encounters Date Type Specialty Care Team Description 01/08/2023 Office Visit Hematology Oncology Nik Melo MD 200 [place] [address] 01/23/2023 Laboratory Laboratory [employer], Lab Scenery 200 [place] [address] 01/24/2023 Hem/Onc Treatment Hematology Oncology [employer], Chair 7 Hem Onc Scenery 200 [place] [address] 02/20/2023 Laboratory Laboratory [facility] Lab [facility] 200 [place] [address] 02/21/2023 Office Visit Hematology Oncology Nik Melo MD 200 [place] [address] 02/21/2023 Hem/Onc Treatment Hematology Oncology 04/04/2023 Office Visit Urology Cm Rhodes MD [address] [address] Health Maintenance Due Date Last Done [...] this encounter Medical Devices Implanted Type Area Instrumentation And Controls Technician Device Identifier Shelf Expiration Date Model / Serial / Lot Cath Power Port 6fr Clearvue - [id number] Implanted:Qty : 1 on 08/10/2021 by Alexander Rodriguez MD at OR [facility] [place] Left: Subclavian CR BARD : PERIPHERAL VASCULAR 08/21/2021 [id number] / / documented as of this encounter [...] and were consensually agreed upon. Care Teams Software Test Engineer Relationship Specialty Start Date End Date Hortencia Leal PA-C [address] [facility] [place] [address] PCP - General Physician End Stapler 02/08/18 documented as of this encounter
--- OUTSIDE RECORDS SUMMARY | 2023-06-27 07:44 | External Medical Summary | Summary of Care ---
Author Name Unknown Organization [facility] Address [address] [facility] [place] [address] Phone [phone] Care Team Providers Care Sanitation Laborer Name Role Phone Hortencia Leal PA-C Primary Care Provid er Encounter Details Date Type Department Care Team Description 12/22/2022 Orders Only Hematology/Oncology [facility] [place] 200 [facility] [place] [address] Nik Melo MD 200 [place] [address] Allergies Active Allergy Reactions Severity Noted Date Comments Amlodipine 11/02/2020 dizziness Codeine Sulfate Other (Please comment) 10/26/19 11 hyperactivity Hydrochlorothiazide 11/02/2020 hypercalcemia Oxaliplatin 02/09/2022 Infusion related reaction documented as of this encounter (statuses as of 12/22/2022) Medications Medication Sig Dispensed Refills Start Date [...] times a day. 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 documented as of this encounter (statuses as of 12/22/2022) Immunizations Name Administration Dates Next Due COVID-19 [...] Encounters Date Type Specialty Care Team Description 12/25/2022 Imaging Radiology 12/26/2022 Laboratory Laboratory [facility] Lab Scene 200 [place] [address] 12/27/2022 Office Visit Hematology Oncology Nik Melo MD 200 [place] [address] 12/27/2022 Hem/Onc Treatment Hematology Oncology [place], Chair 8 Hem Onc Scenery 200 [place] [address] 04/04/2023 Office Visit Urology Cm Rhodes MD [address] [address] Health Maintenance Due Date Last [...] this encounter Medical Devices Implanted Type Area Hardening Machine Operator Device Identifier Shelf Expiration Date Model / Serial / Lot Cath Power Port 6fr Clearvue - [id number] Implanted:Qty : 1 on 08/10/2021 by Alexander Rodriguez MD at [place] [facility] [place] Left: Subclavian CR BARD : PERIPHERAL VASCULAR 08/21/2021 [id number] / / documented as of this encounter [...] and were consensually agreed upon. Care Teams Sanitation Laborer Relationship Specialty Start Date End Date Hortencia Leal PA-C [address] [place] [address] PCP - General Physician Cheese Tester 02/08/18 documented as of this encounter
--- OUTSIDE RECORDS SUMMARY | 2023-06-27 07:44 | External Medical Summary | Summary of Care ---
Author Name Unknown Organization [facility] Address [address] [facility] [place] [address] Phone [phone] Care Team Providers Care Slumber Room Attendant Name Role Phone Hortencia Leal PA-C Primary Care Provid er Reason for Visit * Reason Onset Date Comments Other 12/25/2022 Encounter Details Date Type Department Care Team Description 12/25/2022 Telephone Hematology/Oncology [facility] [address] Nik Melo MD 200 [place] [address] Other Allergies Active Allergy Reactions Severity Noted Date Comments Amlodipine 11/02/2020 dizziness Codeine Sulfate Other (Please comment) 10/26/19 11 hyperactivity Hydrochlorothiazide 11/02/2020 hypercalcemia Oxaliplatin 02/09/2022 Infusion related reaction documented as of this encounter (statuses as of 12/25/2022) Medications Medication Sig Dispensed Refills Start Date [...] times a day. 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 documented as of this encounter (statuses as of 12/25/2022) Immunizations Name Administration Dates Next Due COVID-19 [...] Specialty Care Team Description 12/26/2022 Laboratory Laboratory [place], Lab Scene 200 [facility] [place] [address] 12/27/2022 Office Visit Hematology Oncology [facility] MD [address] [facility] [address] 12/27/2022 Hem/Onc Treatment Hematology Oncology [place], Chair 8 Hem Onc Scenery 200 [facility] [place] [address] 01/02/2023 Imaging Radiology 04/04/2023 Office Visit Urology Cm Rhodes MD 27 [facility] [address] [place] [address] Health Maintenance Due Date Last Done Comments [...] this encounter Medical Devices Implanted Type Area Police Superintendent Device Identifier Shelf Expiration Date Model / Serial / Lot Cath Power Port 6fr Clearvue - [id number] Implanted:Qty : 1 on 08/10/2021 by Alexander Rodriguez MD at OR [facility] Left: Subclavian CR BARD : PERIPHERAL VASCULAR 08/21/2021 [id number] / / documented as of this encounter [...] and were consensually agreed upon. Care Teams Slumber Room Attendant Relationship Specialty Start Date End Date Hortencia Leal PA-C [address] [place] [address] PCP - General Physician Game Farm Helper 02/08/18 documented as of this encounter
--- OUTSIDE RECORDS SUMMARY | 2023-06-27 07:44 | External Medical Summary ---
Author Name Unknown Address Unknown Organization K09[facility] [place] [address] Laboratory Report Ordering Provider Test Date Status SHAY CH 11/28/2022 11:15:56 Final Observation Date Value Abnormality Reference (Units ) Status BUN 11/28/2022 11:15:56 26 Above high normal 6-20 (mg/dL) Final Creatinine 11/28/2022 11:15:56 1.9 Above high normal 0.6-1.2 (mg/dL) Final Glomerular filtration rate/1.73 sq M.predicted [Volume Rate/Area] in Serum, Plasma or Blood by Creatinine-based formula (CKD-EPI) 11/28/2022 11:15:56 36 Below low normal >=60 (mL/min) Final Performing Location [facility] [place] [address]
--- OUTSIDE RECORDS SUMMARY | 2023-06-27 07:44 | External Medical Summary ---
Author Name Unknown Address Unknown Organization K09[facility] [place] [place] [address] Laboratory Report Ordering Provider Test Date Status SHAY CH 12/26/2022 11:21:03 Final Observation Date Value Abnormality Reference (Units ) Status BUN 12/26/2022 11:21:03 37 Above high normal 6-20 (mg/dL) Final Creatinine 12/26/2022 11:21:03 1.9 Above high normal 0.6-1.2 (mg/dL) Final Glomerular filtration rate/1.73 sq M.predicted [Volume Rate/Area] in Serum, Plasma or Blood by Creatinine-based formula (CKD-EPI) 12/26/2022 11:21:03 35 Below low normal >=60 (mL/min) Final Performing Location [facility] [place] [address]
--- OUTSIDE RECORDS SUMMARY | 2023-06-27 07:44 | External Medical Summary | Summary of Care ---
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) Prostate cancer (HCC) 11/28/2022 11:15 AM EST TSH WITH FREE T4 IF INDICATED Lab STAT Encounter for adjustment and management of vascular access device 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) Prostate cancer (HCC) 11/28/2022 11:15 AM EST Health Maintenance Due Date Last [...] encounter Medical Devices Implanted Type Area Manager Drug Device Identifier Shelf Expiration Date Model / Serial / Lot Cath Power Port 6fr Clearvue - [id number] Implanted:Qty : 1 on 08/10/2021 by Alexander Rodriguez MD at [facility] Left: Subclavian CR BARD : PERIPHERAL VASCULAR 08/21/2021 [id number] / / documented as of this encounter Procedures Procedure Name Priority Date/Time Associated Diagnosis Comments DIFFERENTIAL, AUTOMATED STAT 11/28/2022 11:15 AM EST Encounter for adjustment and management of vascular access device 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) Prostate cancer (HCC) CBC WITH WBC DIFFERENTIAL STAT 11/28/2022 11:15 AM EST Encounter for adjustment and management of vascular access device 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) Prostate cancer (HCC) CBC STAT 11/28/2022 11:15 AM EST Encounter for adjustment and management of vascular access device 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) Prostate cancer (HCC) documented in this encounter Results * DIFFERENTIAL, AUTOMATED (11/28/2022 11:15 AM EST) WBC 6.89 4.00 - 10.80 K/uL 11/28/2022 11:24 AM [facility] 56-02 Neutrophils % 62.6 40.0 - 75.0 % 11/28/2022 11:24 AM [facility] 56-02 Lymphocytes % 25.8 18.0 - 42.0 % 11/28/2022 11:24 AM [facility] 56-02 Monocytes % 8.1 1.0 - 11.0 % 11/28/2022 11:24 AM [facility] 56-02 Eosinophils % 3.2 0.0 - 6.0 % 11/28/2022 11:24 AM [facility] 56-02 Basophils % 0.3 0.0 - 2.0 % 11/28/2022 11:24 AM [facility] 56-02 Absolute Neutrophils 4.31 1.80 - 7.70 K/uL 11/28/2022 11:24 AM EST [facility] 56-02 Absolute Lymphocytes 1.78 1.00 - 4.80 K/ul 11/28/2022 11:24 AM [facility] 56-02 Absolute Monocytes 0.56 0.00 - 1.10 K/uL 11/28/2022 11:24 AM [facility] 56-02 Absolute Eosinophils 0.22 0.00 - 0.70 K/uL 11/28/2022 11:24 AM [facility] 56-02 Absolute Basophils 0.02 0.00 - 0.20 K/uL 11/28/2022 11:24 AM [facility] 56-02 Blood Venous blood specimen / Unknown Venipuncture / Unknown 11/28/2022 11:15 AM EST 11/28/2022 11:16 AM EST Nik Melo MD LAB BLOOD ORDERA BLES [facility] 56-[address] [place] [address] * (ABNORMAL) CBC (11/28/2022 11:15 AM EST) WBC 6.89 4.00 - 10.80 K/uL 11/28/2022 11:24 AM [facility] 56- RBC 4.06 4.50 - 5.25 M/uL 11/28/2022 11:24 AM [facility] 5602 HGB 13.0(L) 14.0 - 16.8 g/dL 11/28/2022 11:24 AM [facility] 56- HCT 40.2 40.0 - 48.4 % 11/28/2022 11:24 AM [facility] 56 MCV 99.0 82.0 - 99.5 fL 11/28/2022 11:24 AM [facility] 56 MCH 32.0 27.0 - 34.0 pg 11/28/2022 11:24 AM [facility] 56 MCHC 32.3 32.0 - 36.0 g/dL 11/28/2022 11:24 AM [facility] 56 RDW 15.1 11.5 - 15.5 % 11/28/2022 11:24 AM [facility] 5602 PLT 161 140 - 400 K/uL 11/28/2022 11:24 AM [facility] 5602 MPV 8.8 6.6 - 11.1 fL 11/28/2022 11:24 AM [facility] 5602 Blood Venous blood specimen / Unknown Venipuncture / Unknown 11/28/2022 11:15 AM EST 11/28/2022 11:16 AM EST Nik Melo MD LAB BLOOD ORDERA BLES [facility] 56-[address] [place] [address] documented in this encounter Visit Diagnoses Diagnosis [...] and were consensually agreed upon. Care Teams Director Nicu Relationship Specialty Start Date End Date Hortencia Leal PA-C [address] [place] [address] PCP - General Physician Minister 02/08/18 documented as of this encounter
--- OUTSIDE RECORDS SUMMARY | 2023-06-27 07:44 | External Medical Summary | Summary of Care ---
Author Name Unknown Organization [place] [address] Care Team Providers Care Colon And Rectal Surgeon Name Role Phone Hortencia Leal PA-C Primary Care Provid er Encounter Details Date Type Department Care Team Description 11/26/2022 Orders Only Hematology/Oncology [facility] 200 [place] [address] Nik Melo MD [address] [facility] [address] Allergies Active Allergy Reactions Severity Noted Date Comments Amlodipine 11/02/2020 dizziness Codeine Sulfate Other (Please comment) 10/26/19 11 hyperactivity Hydrochlorothiazide 11/02/2020 hypercalcemia Oxaliplatin 02/09/2022 Infusion related reaction documented as of this encounter (statuses as of 11/26/2022) Medications Medication Sig Dispensed Refills Start Date [...] times a day. 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 documented as of this encounter (statuses as of 11/26/2022) Immunizations Name Administration Dates Next Due COVID-19 [...] Encounters Date Type Specialty Care Team Description 11/28/2022 Laboratory Laboratory [place], Lab Scenery [address] [place] [address] 11/29/2022 Hem/Onc Treatment Hematology Oncology [place], Chair 2 Hem Onc Scenery 200 [facility] [place] [address] 12/05/2022 Imaging Radiology 12/11/2022 Office Visit Hematology Oncology [facility] [address] [facility] [facility] [address] 12/26/2022 Laboratory Laboratory [place], Lab Scenery 200 [facility] [place] [address] 12/27/2022 Hem/Onc Treatment Hematology Oncology [place], Chair 8 Hem Onc Scenery [address] [place] [address] 04/04/2023 Office Visit Urology RhodesCm MD [address] [place] [address] Health Maintenance Due Date Last Done [...] this encounter Medical Devices Implanted Type Area Sample Paster Device Identifier Shelf Expiration Date Model / Serial / Lot Cath Power Port 6fr Clearvue - [id number] Implanted:Qty : 1 on 08/10/2021 by Alexander Rodriguez MD at [place] [facility] [place] Left: Subclavian CR BARD : PERIPHERAL VASCULAR 08/21/2021 [id number] / / documented as of this encounter [...] and were consensually agreed upon. Care Teams Colon And Rectal Surgeon Relationship Specialty Start Date End Date Hortencia Leal PA-C [address] [place] [address] PCP - General Physician Assistant Foreman 02/08/18 documented as of this encounter
--- OUTSIDE RECORDS SUMMARY | 2023-06-27 07:44 | External Medical Summary | Summary of Care ---
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) Procedures ID INJECTION, NIVOLUMAB Nik Melo MD 200 [facility] [place] [address] Anc Hem/Onc [place] [address] [place] [id number] Referral ID Status Reason Start Date Expiration Date V isits Requested Visits Authorized [id number] Authorized 02/09/2022 10/21/2099 99 99 Encounter Details Date Type Department Care Team Description 11/01/2022 Hem/Onc Treatment Hematology/Oncology Treatment, [place] [address] [place] [address] [place], Chair 11 Hem Onc [place] [address] [place] [id number] 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 documented as of this encounter (statuses as of 11/01/2022) Immunizations Name Administration Dates Next Due COVID-19 [...] Sign Reading Time Taken Comments Blood Pressure 155/83 11/01/2022 1:00 PM EST Pulse 74 11/01/2022 1:00 PM EST Temperature 36.7 C (98.1 F) 11/01/2022 1:00 PM ES T Respiratory Rate 20 11/01/2022 1:00 PM EST Oxygen Saturation 94% 11/01/2022 1:00 PM EST Inhaled Oxygen Concentration - - Weight - - Height - - Body Mass Index - - documented in this encounter Nursing Notes * Eboni Stevens RN - 11/01/2022 2:26 PM EST Functional status at today's visit: Restricted in [...] symptoms or adverse side effects during treatment. Opdivo infusion is complete, pt tolerated well. Pt discharged in stable condition. * Eboni Stevens RN - 11/01/2022 2:21 PM EST Ch 9. Pt arrived today for Opdivo infusion. He had labs performed day prior, results stable. Pt hasno new concerns today. Chemo agents Opdivo Appetite good Nausea/Vomiting denies Diarrhea denies Constipation denies Mucositis denies Fatigue mild, intermittent Bleeding denies Infection denies Rash denies Numbness tingling denies Pain denies Radiation no ABN Labs WNL Alt in Tx: no Return in 4 wk documented in this encounter Plan of Treatment Upcoming Encounters Date Type Specialty Care Team Description 11/28/2022 Laboratory Laboratory [place], Lab Scenery [address] [facility] [address] 11/29/2022 Hem/Onc Treatment Hematology Oncology [place], Chair 4 Hem Onc Scenery 200 [facility] [address] 12/05/2022 Imaging Radiology 12/11/2022 Office Visit Hematology Oncology Nik Melo MD [address] [place] [facility] [place] [address] 12/26/2022 Laboratory Laboratory [place], Lab Scenery [address] [facility], [place] [address] 12/27/2022 Hem/Onc Treatment Hematology Oncology [place], Chair 8 Hem Onc Scenery [address] [facility], [place] [address] 04/04/2023 Office Visit Urology Cm Rhodes MD [address], [place] [id number] Health Maintenance Due Date Last Done Comments [...] this encounter Medical Devices Implanted Type Area Signing Agent Device Identifier Shelf Expiration Date Model / Serial / Lot Cath Power Port 6fr Clearvue - [id number] Implanted:Qty : 1 on 08/10/2021 by Alexander Rodriguez MD at [facility] Left: Subclavian CR BARD : PERIPHERAL VASCULAR 08/21/2021 [id number] / / documented as of this encounter [...] ONCE PRN Other, Hypersensitivity Reaction, Starting on Sun11/01/22 at 1310, Until Chandrika 11/02/22 at 1309, For 24 hours EPINEPHrine 1 MG/ML inj 0.3 mg 0.3 mg, Intramuscular, ONCE PRN Other, Hypersensitivity Reaction or Anaphylaxis, Starting on Sun11/01/22 at 1310, Until Chandrika 11/02/22 at 1309, For 24 hours hEParin 100 UNIT/ML Lock Flush inj 500 Units 500 Units (5 mL), IV Lock, PRN Other, IV Flush, Starting on Sun11/01/22 at 1310, Until Chandrika 11/02/22 at 1309, For 24 hours, Do not flush if lock, PICC, or central line not in place; IV infusing or unable to flush. Given 11/01/2022 1:58 PM EST 500 Units Hydrocortisone Sod Suc (PF) (Solu-Cortef) inj 100 mg 100 mg, IV Push, ONCE PRN Other, Hypersensitivity Reaction, Starting on Sun11/01/22 at 1310, Until Chandrika 11/02/22 at 1309, For 24 hours NSS infusion 500 mL, Intravenous, at 50 mL/hr, CONTINUOUS, Starting on Sun11/01/22 at 1415, Until Sun11/02/22 at 0014 Start Infusion 11/01/2022 1:20 PM EST 500 mL 50 mL/hr sodium chloride 0.9 % flush central line 10 mL 10 mL, IV Push, PRN Other, IV Flush, Starting on Sun11/01/22 at 1310, Until Chandrika 11/02/22 at 1309, For 24 hours, Do not flush if lock, PICC, or central line not in place; IV infusing or unable to flush. Given 11/01/2022 1:58 PM EST 10 mL Inactive Administered Medications - up to 3 most recent administrations Medication Order MAR Action Action Date Dose Rate Site Nivolumab (Opdivo) 480 mg in NSS 100 mL ivpb 480 mg, IV Piggyback, ONCE, 1 dose, On Sun11/01/22 at 1445, Administer over 30 Minutes, DO NOT SHAKE Final concentration should be between 1 and 10 mg/ml Use a sterile, non-pyrogenic, low-protein binding in-line filter (0.2 micrometer-1.2 micrometer) Start Infusion 11/01/2022 1:25 PM EST 480 mg 200 mL/hr documented in [...] and were consensually agreed upon. Care Teams Claims Collector Relationship Specialty Start Date End Date Hortencia Leal PA-C [address] [facility] [address] P[facility] - General Physician Inspector Wire Rope 02/08/18 documented as of this encounter
--- OUTSIDE RECORDS SUMMARY | 2023-06-27 07:44 | External Medical Summary | Summary of Care ---
Author Name Unknown Organization [place] [address] Care Team Providers Care Cottrell Operator Name Role Phone Hortencia Leal PA-C Primary Care Provid er Reason for Visit * Reason Onset Date Comments Appointment Canceled 12/05/2022 Encounter Details Date Type Department Care Team Description 12/05/2022 Telephone Hematology/Oncology [facility] [place] 200 [facility] [place] [address] Nik Melo MD 200 [facility] [place] [address] Appointment Canceled Allergies Active Allergy Reactions Severity Noted Date Comments Amlodipine 11/02/2020 dizziness Codeine Sulfate Other (Please comment) 10/26/19 11 hyperactivity Hydrochlorothiazide 11/02/2020 hypercalcemia Oxaliplatin 02/09/2022 Infusion related reaction documented as of this encounter (statuses as of 12/07/2022) Medications Medication Sig Dispensed Refills Start Date [...] times a day. 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 PET/CT Scan has been rescheduled at for 12/25/22. Patient is rescheduled to see on 12/27/22. * Telephone Encounter - TANI Johnson - 12/05/2022 2:52 PM EST /Nursing-patient called and stated that he fell last night and taken to [facility] and is in intensive care. Patient did not go for the PET/CT Scan at and canceled appt with for 12/11/22. Patient was instructed to contact our office once he is discharged. FYI documented in this encounter Plan of Treatment Upcoming Encounters Date Type Specialty Care Team Description 12/25/2022 Imaging Radiology 12/26/2022 Laboratory Laboratory [place], Lab Scenery 200 [facility] [place] [address] 12/27/2022 Office Visit Hematology Oncology Nik Melo MD [address] [place] [address] 12/27/2022 Hem/Onc Treatment Hematology Oncology [place], Chair 8 Hem Onc Scenery 200 [facility] [place] [address] 04/04/2023 Office Visit Urology Cm Rhodes MD [address] [place] [address] [place] [address] Health Maintenance Due Date [...] this encounter Medical Devices Implanted Type Area Correspondence Analyst Device Identifier Shelf Expiration Date Model / Serial / Lot Cath Power Port 6fr Clearvue - [id number] Implanted:Qty : 1 on 08/10/2021 by Alexander Rodriguez MD at [place] [facility] [place] Left: Subclavian CR BARD : PERIPHERAL VASCULAR 08/21/2021 [id number] / / documented as of this encounter [...] and were consensually agreed upon. Care Teams Cottrell Operator Relationship Specialty Start Date End Date Hortencia Leal PA-C [address] [place] [address] PCP - General Physician Sports Therapist 02/08/18 documented as of this encounter
--- OUTSIDE RECORDS SUMMARY | 2023-06-27 07:44 | External Medical Summary | Summary of Care ---
Author Name Unknown Organization [place] [address] Care Team Providers Care Precision Grinder External Name Role Phone Hortencia Leal PA-C Primary Care Provid er Encounter Details Date Type Department Care Team Description 11/26/2022 Orders Only Hematology/Oncology [facility] 200 [place] [address] Nik Melo MD 200 [facility] [place] [address] Allergies Active Allergy Reactions Severity Noted Date [...] times a day. As needed 0 Active [place]-3 Fatty Acids (FISH OIL) 1000 MG Capsule [...] Specialty Care Team Description 11/28/2022 Laboratory Laboratory [place], Lab Scenery [address] [place] [address] 11/29/2022 Hem/Onc Treatment Hematology Oncology [place], Chair 2 Hem Onc Scenery 200 [facility] [place] [address] 12/05/2022 Imaging Radiology 12/11/2022 Office Visit Hematology Oncology Nik [facility] MD [address] [facility] [address] 12/26/2022 Laboratory Laboratory [place], Lab Scenery 200 [facility] [place] [address] 12/27/2022 Hem/Onc Treatment Hematology Oncology [place], Chair 8 Hem Onc Scenery [address] [place] [address] 04/04/2023 Office Visit Urology RhodesCm MD [address] [place] [address] Health Maintenance Due Date Last Done [...] encounter Medical Devices Implanted Type Area Supervisor Beehive Kiln Device Identifier Shelf Expiration Date Model / Serial / Lot Cath Power Port 6fr Clearvue - [id number] Implanted:Qty : 1 on 08/10/2021 by Alexander Rodriguez MD at [place] [facility] [place] Left: Subclavian CR BARD : PERIPHERAL VASCULAR 08/21/2021 [id number] / / documented as of this encounter [...] and were consensually agreed upon. Care Teams Precision Grinder External Relationship Specialty Start Date End Date Hortencia Leal PA-C [address] [place] [address] PCP - General Physician Highway Research Engineer 02/08/18 documented as of this encounter
--- OUTSIDE RECORDS SUMMARY | 2023-06-27 07:44 | External Medical Summary | Summary of Care ---
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 documented as of this encounter (statuses as of 10/31/2022) Immunizations Name Administration Dates Next Due COVID-19 [...] Encounters Date Type Specialty Care Team Description 11/01/2022 Hem/Onc Treatment Hematology Oncology [place], Chair 11 Hem Onc Scenery [address] [place] [address] 11/28/2022 Laboratory Laboratory [place], Lab Scenery 200 [facility] [place] [address] 11/29/2022 Hem/Onc Treatment Hematology Oncology [place], Chair 4 Hem Onc Scenery [address] [place] [address] 12/05/2022 Imaging Radiology 12/11/2022 Office Visit Hematology Oncology LorieNik hilliard MD [address] [place] [address] 12/26/2022 Laboratory Laboratory [place], Lab Scenery [address] [place] [address] 12/27/2022 Hem/Onc Treatment Hematology Oncology [place], Chair 8 Hem Onc Scenery [address] [place] [address] 04/04/2023 Office Visit Urology RhodesCm MD 27 [place] [address] [place] [address] Pending Results Name Type Priority Associated Diagnoses Date /Time COMPREHENSIVE METABOLIC PANEL Lab STAT Encounter for adjustment and management of vascular access device 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) Prostate cancer (HCC) 10/31/2022 11:09 AM EST TSH WITH FREE T4 IF INDICATED Lab STAT Encounter for adjustment and management of vascular access device 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) Prostate cancer (HCC) 10/31/2022 11:09 AM EST Health Maintenance Due Date Last [...] this encounter Medical Devices Implanted Type Area Simulation Technician Device Identifier Shelf Expiration Date Model / Serial / Lot Cath Power Port 6fr Clearvue - [id number] Implanted:Qty : 1 on 08/10/2021 by Alexander Rodriguez MD at [facility] Left: Subclavian CR BARD : PERIPHERAL VASCULAR 08/21/2021 [id number] / / documented as of this encounter Procedures Procedure Name Priority Date/Time Associated Diagnosis Comments DIFFERENTIAL, AUTOMATED STAT 10/31/2022 11:09 AM EST Encounter for adjustment and management of vascular access device 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) Prostate cancer (HCC) CBC WITH WBC DIFFERENTIAL STAT 10/31/2022 11:09 AM EST Encounter for adjustment and management of vascular access device 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) Prostate cancer (HCC) CBC STAT 10/31/2022 11:09 AM EST Encounter for adjustment and management of vascular access device 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) Prostate cancer (HCC) documented in this encounter Results * DIFFERENTIAL, AUTOMATED (10/31/2022 11:09 AM EST) WBC 6.41 4.00 - 10.80 K/uL 10/31/2022 11:18 AM EST LAB[facility]ORY [place] Neutrophils % 61.8 40.0 - 75.0 % 10/31/2022 11:18 AM EST [facility] [place] 56-02 Lymphocytes % 23.7 18.0 - 42.0 % 10/31/2022 11:18 AM EST [facility] [place] 56-02 Monocytes % 9.8 1.0 - 11.0 % 10/31/2022 11:18 AM EST [facility] [place] 56-02 Eosinophils % 4.4 0.0 - 6.0 % 10/31/2022 11:18 AM EST [facility] [place] 56-02 Basophils % 0.3 0.0 - 2.0 % 10/31/2022 11:18 AM EST [facility] [place] 56-02 Absolute Neutrophils 3.96 1.80 - 7.70 K/uL 10/31/2022 11:18 AM EST [facility] [place] 56-02 Absolute Lymphocytes 1.52 1.00 - 4.80 K/ul 10/31/2022 11:18 AM EST [facility] [place] 56-02 Absolute Monocytes 0.63 0.00 - 1.10 K/uL 10/31/2022 11:18 AM EST [facility] [place] 56-02 Absolute Eosinophils 0.28 0.00 - 0.70 K/uL 10/31/2022 11:18 AM EST [facility] [place] 56-02 Absolute Basophils 0.02 0.00 - 0.20 K/uL 10/31/2022 11:18 AM [facility] LAB[facility]ORY [place] 56-02 Blood Venous blood specimen / Unknown Venipuncture / Unknown 10/31/2022 11:09 AM EST 10/31/2022 11:10 AM EST Nik Melo MD LAB BLOOD [facility] [address] [place] [address] * (ABNORMAL) CBC (10/31/2022 11:09 AM EST) WBC 6.41 4.00 - 10.80 K/uL 10/31/2022 11:18 AM EST [address] RBC 4.11 4.50 - 5.25 M/uL 10/31/2022 11:[address] HGB 13.0(L) 14.0 - 16.8 g/dL 10/31/2022 11:[address] HCT 40.8 40.0 - 48.4 % 10/31/2022 11:[address] MCV 99.3 82.0 - 99.5 fL 10/31/2022 11:[address] MCH 31.6 27.0 - 34.0 pg 10/31/2022 11:18 AM [facility] 56 MCHC 31.9 32.0 - 36.0 g/dL 10/31/2022 11:18 AM [facility] 56 RDW 15.1 11.5 - 15.5 % 10/31/2022 11:18 AM [facility] 56 PLT 134(L) 140 - 400 K/uL 10/31/2022 11:18 AM [facility] 56 MPV 8.4 6.6 - 11.1 fL 10/31/2022 11:18 AM [facility] 5602 Blood Venous blood specimen / Unknown Venipuncture / Unknown 10/31/2022 11:09 AM EST 10/31/2022 11:10 AM EST Nik Melo MD LAB BLOOD [facility] 56[address] [place] [address] documented in this encounter Visit Diagnoses Diagnosis [...] and were consensually agreed upon. Care Teams Relief Driller Relationship Specialty Start Date End Date Hortencia Leal PA-C [address] [place] [address] PCP - General Physician Electrician Elevator Maintenance 02/08/18 documented as of this encounter
--- OUTSIDE RECORDS SUMMARY | 2023-06-27 07:44 | External Medical Summary ---
Author Name Unknown Address Unknown Organization [id number]:[facility] [address] Laboratory Report Ordering Provider Test Date Status SHAY CH 12/26/2022 11:21:03 Final Observation Date Value Abnormality Reference (Units ) Status SYNC LEUKOCYTES IN BLOOD BY AUTOMATED COUNT 12/26/2022 11:21:03 8.75 4.00-10.80 (K/uL) Final Segs 12/26/2022 11:21:03 68.4 40.0-75.0 (%) Final Lymphs % 12/26/2022 11:21:03 21.5 18.0-42.0 (%) Final Monos 12/26/2022 11:21:03 7.5 1.0-11.0 (%) Final Eosinophils 12/26/2022 11:21:03 2.4 0.0-6.0 (%) Final Basos 12/26/2022 11:21:03 0.2 0.0-2.0 (%) Final Absolute Segs 12/26/2022 11:21:03 5.98 1.80-7.70 (K/uL) Final Lymphs, absolute 12/26/2022 11:21:03 1.88 1.00-4.80 (K/ul) Final Monos, Abs 12/26/2022 11:21:03 0.66 0.00-1.10 (K/uL) Final Eos, Abs 12/26/2022 11:21:03 0.21 0.00-0.70 (K/uL) Final Basos, Abs 12/26/2022 11:21:03 0.02 0.00-0.20 (K/uL) Final Performing Location [facility] [place] [address]
--- OUTSIDE RECORDS SUMMARY | 2023-06-27 07:44 | External Medical Summary ---
Author Name Unknown Address Unknown Organization [id number]:[facility] [place] [address] Laboratory Report Ordering Provider Test Date Status SHAY CH 11/28/2022 11:15:56 Final Observation Date Value Abnormality Reference (Units ) Status WBC, Total 11/28/2022 11:15:56 6.89 4.00-10.8 0 (K/uL) Final RBC 11/28/2022 11:15:56 4.06 4.50-5.25 (M/uL) Final Hemoglobin 11/28/2022 11:15:56 13.0 Below low normal 14 .0-16.8 (g/dL) Final HCT 11/28/2022 11:15:56 40.2 40.0-48.4 (%) Final MCV 11/28/2022 11:15:56 99.0 82.0-99.5 (fL) Final MCH 11/28/2022 11:15:56 32.0 27.0-34.0 (pg) Final MCHC 11/28/2022 11:15:56 32.3 32.0-36.0 (g/dL) Final RDW 11/28/2022 11:15:56 15.1 11.5-15.5 (%) Final Platelets 11/28/2022 11:15:56 161 140-400 (K /uL) Final MPV 11/28/2022 11:15:56 8.8 6.6-11.1 ( fL) Final Performing Location [facility] [place] [address]
--- OUTSIDE RECORDS SUMMARY | 2023-06-27 07:44 | External Medical Summary ---
Author Name Unknown Address Unknown Organization K01:[facility] [place] [facility] [address] [place] [address] Laboratory Report Ordering Provider Test Date Status SHAY CH 11/28/2022 11:15:56 Final Observation Date Value Abnormality Reference (Units ) Status TSH 11/28/2022 11:15:56 1.21 0.27-4.20 (uIU/mL) Final Performing Location [facility] [place] - [address] [place] [address]
--- OUTSIDE RECORDS SUMMARY | 2023-06-27 07:44 | External Medical Summary | Summary of Care ---
Author Name Unknown Organization [place] [address] Care Team Providers Care Senior Data Warehouse Architect Name Role Phone Hortencia Leal PA-C Primary Care Provid er Reason for Visit * Reason Onset Date Comments Appointment Canceled 12/05/2022 Encounter Details Date Type Department Care Team Description 12/05/2022 Telephone Hematology/Oncology [facility] [place] 200 [facility] [place] [address] Nik Melo MD 200 [facility] [place] [address] Appointment Canceled Allergies Active Allergy Reactions Severity Noted Date Comments Amlodipine 11/02/2020 dizziness Codeine Sulfate Other (Please comment) 10/26/19 11 hyperactivity Hydrochlorothiazide 11/02/2020 hypercalcemia Oxaliplatin 02/09/2022 Infusion related reaction documented as of this encounter (statuses as of 12/05/2022) Medications Medication Sig Dispensed Refills Start Date [...] times a day. 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 Patient did not go for the PET/CT Scan at and canceled appt with for 12/11/22. Patient was instructed to contact our office once he is discharged. FYI documented in this encounter Plan of Treatment Upcoming Encounters Date Type Specialty Care Team Description 12/26/2022 Laboratory Laboratory [place], Lab Scenery [address] [place] [address] 12/27/2022 Hem/Onc Treatment Hematology Oncology [place], Chair 8 Hem Onc Scenery [address] [place] [address] 04/04/2023 Office Visit Urology Cm Rhodes MD [address] [place] [address] Health Maintenance Due Date Last [...] this encounter Medical Devices Implanted Type Area 3Rd Pressman Device Identifier Shelf Expiration Date Model / Serial / Lot Cath Power Port 6fr Clearvue - [id number] Implanted:Qty : 1 on 08/10/2021 by Alexander Rodriguez MD at [place] [facility] Left: Subclavian CR BARD : PERIPHERAL VASCULAR 08/21/2021 [id number] / / documented as of this encounter [...] were consensually agreed upon. Care Teams Senior Data Warehouse Architect Relationship Specialty Start Date End Date Hortencia Leal PA-C [address] [place] [address] PCP - General Physician Accounting Instructor 02/08/18 documented as of this encounter
--- OUTSIDE RECORDS SUMMARY | 2023-06-27 07:44 | External Medical Summary ---
Author Name Unknown Address Unknown Organization K09:[facility] [place] [address] Laboratory Report Ordering Provider Test Date Status SHAY CH 11/28/2022 11:15:56 Final Observation Date Value Abnormality Reference (Units ) Status SYNC LEUKOCYTES IN BLOOD BY AUTOMATED COUNT 11/28/2022 11:15:56 6.89 4.00-10.80 (K/uL) Final Segs 11/28/2022 11:15:56 62.6 40.0-75.0 (%) Final Lymphs % 11/28/2022 11:15:56 25.8 18.0-42.0 (%) Final Monos 11/28/2022 11:15:56 8.1 1.0-11.0 (%) Final Eosinophils 11/28/2022 11:15:56 3.2 0.0-6.0 (%) Final Basos 11/28/2022 11:15:56 0.3 0.0-2.0 (%) Final Absolute Segs 11/28/2022 11:15:56 4.31 1.80-7.70 (K/uL) Final Lymphs, absolute 11/28/2022 11:15:56 1.78 1.00-4.80 (K/ul) Final Monos, Abs 11/28/2022 11:15:56 0.56 0.00-1.10 (K/uL) Final Eos, Abs 11/28/2022 11:15:56 0.22 0.00-0.70 (K/uL) Final Basos, Abs 11/28/2022 11:15:56 0.02 0.00-0.20 (K/uL) Final Performing Location [facility] [place] [address]
--- OUTSIDE RECORDS SUMMARY | 2023-06-27 07:44 | External Medical Summary | Summary of Care ---
Author Name Unknown Organization [facility] Address [address] [facility] [place] [address] Phone [phone] Care Team Providers Care Degreasing Solution Reclaimer Name Role Phone Hortencia Leal PA-C Primary Care Provid er Reason for Visit * Reason Onset Date Comments Appointment 12/25/2022 Encounter Details Date Type Department Care Team Description 12/25/2022 Telephone Hematology/Oncology [facility] [address] Nik Melo MD 200 [place] [address] Appointment Allergies Active Allergy Reactions Severity Noted [...] Miscellaneous Notes * Telephone Encounter - TANI Herrera - 12/25/2022 11:54 AM EST Patient's blood glucose too high for PET Scan today. [facility] Central Scheduling please reschedule. documented in this encounter Plan of Treatment Upcoming Encounters Date Type Specialty Care Team Description 12/26/2022 Laboratory Laboratory [place] Lab [facility] 200 [place] [address] 12/27/2022 Office Visit Hematology Oncology Nik Melo MD 200 [place] [address] 12/27/2022 Hem/Onc Treatment Hematology Oncology [place], Chair 8 Hem Onc [facility] 200 [place] [address] 01/02/2023 Imaging Radiology 04/04/2023 Office Visit Urology Cm Rhodes MD 27 [facility] [place] [address] [place] [address] Health Maintenance [...] this encounter Medical Devices Implanted Type Area Paper Folding Machine Operator Device Identifier Shelf Expiration Date Model / Serial / Lot Cath Power Port 6fr Clearvue - [id number] Implanted:Qty : 1 on 08/10/2021 by Alexander Rodriguez MD at [facility] Left: Subclavian CR BARD : PERIPHERAL VASCULAR 08/21/2021 [id number] / / documented as of this encounter [...] and were consensually agreed upon. Care Teams Degreasing Solution Reclaimer Relationship Specialty Start Date End Date Hortencia Leal PA-C [address] [facility] [place] [address] PCP - General Physician Home Service Advisor 02/08/18 documented as of this encounter
--- OUTSIDE RECORDS SUMMARY | 2023-06-27 07:44 | External Medical Summary | Summary of Care ---
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) Procedures [place] INJECTION, NIVOLUMAB Nik Melo MD 200 [facility] [place] [address] Anc Hem/Onc [place] [address] [place] [phone] Referral ID Status Reason Start Date Expiration Date V isits Requested Visits Authorized [id number] Authorized 02/09/2022 10/21/2099 99 99 Encounter Details Date Type Department Care Team Description 11/29/2022 Hem/Onc Treatment Hematology/Oncology Treatment, [place] [address] [place] [phone] [place], Chair 2 Hem Onc [place] [address] [place] [address] 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 documented as of this encounter (statuses as of 11/29/2022) Immunizations Name Administration Dates Next Due COVID-19 [...] Sign Reading Time Taken Comments Blood Pressure 157/85 11/29/2022 11:45 AM EST Pulse 75 11/29/2022 11:45 AM EST Temperature 36.7 C (98.1 F) 11/29/2022 11:[address] Respiratory Rate 18 11/29/2022 11:45 AM EST Oxygen Saturation 95% 11/29/2022 11:45 AM EST Inhaled Oxygen Concentration - - Weight 88.5 kg (195 lb 3.2 oz) 11/29/2022 11:45 AM EST Height - - Body Mass Index 33.51 08/10/2021 8:15 AM EDT documented in this encounter Nursing Notes * Eboni Stevens RN - 11/29/2022 12:28 PM EST Functional status at today's visit: [...] side effects during treatment. Opdivo infusion is complete. Pt tolerated well. Pt discharged in stable condition. * Eboni Stevens RN - 11/29/2022 12:10 PM EST Ch 2. Pt arrived today for Opdivo infusion. Pt had labs performed prior, results stable. Discussed his hydration status, his Cr 1.9 today, baseline 1.7-1.9, but trending upwards. Pt denies N/V/D, pain, neuropathy or changes in appetite. He verbalizes understanding of needing to increase PO fluids. Pt accessed by Shelton Calvert RN. Chemo agents Opdivo Appetite good Nausea/Vomiting denies Diarrhea denies Constipation denies Mucositis denies Fatigue denies Bleeding denies Infection denies Rash denies Numbness tingling denies Pain denies Radiation no ABN Labs stable, Cr 1.9 Alt in Tx: no Return in 4 wk documented in this encounter Plan of Treatment Upcoming Encounters Date Type Specialty Care Team Description 12/05/2022 Imaging Radiology 12/11/2022 Office Visit Hematology Oncology Nik Melo MD 200 [place] [address] 12/26/2022 Laboratory Laboratory [facility] 200 [facility], [place] [address] 12/27/2022 Hem/Onc Treatment Hematology Oncology [place], Chair 8 Hem Onc [facility] [address] 04/04/2023 Office Visit Urology Cm Rhodes MD [address] [place] [address] Health Maintenance Due Date Last [...] this encounter Medical Devices Implanted Type Area Filer And Sander Device Identifier Shelf Expiration Date Model / Serial / Lot Cath Power Port 6fr Clearvue - [id number] Implanted:Qty : 1 on 08/10/2021 by Alexander Rodriguez MD at [facility] Left: Subclavian CR BARD : PERIPHERAL VASCULAR 08/21/2021 [id number] / / documented as of this encounter [...] ONCE PRN Other, Hypersensitivity Reaction, Starting on 11/29/22 at 1143, Until Chandrika 11/30/22 at 1142, For 24 hours EPINEPHrine 1 MG/ML inj 0.3 mg 0.3 mg, Intramuscular, ONCE PRN Other, Hypersensitivity Reaction or Anaphylaxis, Starting on Sun11/29/22 at 1143, Until Chandrika 11/30/22 at 1142, For 24 hours hEParin 100 UNIT/ML Lock Flush inj 500 Units 500 Units (5 mL), IV Lock, PRN Other, IV Flush, Starting on Sun11/29/22 at 1143, Until Chandrika 11/30/22 at 1142, For 24 hours, Do not flush if lock, PICC, or central line not in place; IV infusing or unable to flush. Given 11/29/2022 12:22 PM EST 500 Units Hydrocortisone Sod Suc (PF) (Solu-Cortef) inj 100 mg 100 mg, IV Push, ONCE PRN Other, Hypersensitivity Reaction, Starting on Sun11/29/22 at 1143, Until Chandrika 11/30/22 at 1142, For 24 hours NSS infusion 500 mL, Intravenous, at 50 mL/hr, CONTINUOUS, Starting on Sun11/29/22 at 1245, Until Sun11/29/22 at 2244 Start Infusion 11/29/2022 11:45 AM EST 500 mL 50 mL/hr sodium chloride 0.9 % flush central line 10 mL 10 mL, IV Push, PRN Other, IV Flush, Starting on Sun11/29/22 at 1143, Until Chandrika 11/30/22 at 1142, For 24 hours, Do not flush if lock, PICC, or central line not in place; IV infusing or unable to flush. Given 11/29/2022 12:22 PM EST 10 mL Inactive Administered Medications - up to 3 most recent administrations Medication Order MAR Action Action Date Dose Rate Site Nivolumab (Opdivo) 480 mg in NSS 100 mL ivpb 480 mg, IV Piggyback, ONCE, 1 dose, On Sun11/29/22 at 1315, Administer over 30 Minutes, DO NOT SHAKE Final concentration should be between 1 and 10 mg/ml Use a sterile, non-pyrogenic, low-protein binding in-line filter (0.2 micrometer-1.2 micrometer) Start Infusion 11/29/2022 11:51 AM EST 480 mg 200 mL/hr documented [...] and were consensually agreed upon. Care Teams Onyx Chip Terrazzo Worker Relationship Specialty Start Date End Date Hortencia Leal PA-C [address] [facility] [address] PCP - General Physician Igniter Capper 02/08/18 documented as of this encounter
--- OUTSIDE RECORDS SUMMARY | 2023-06-27 07:45 | External Medical Summary | Summary of Care ---
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) Procedures PET CT SKULL BASE TO MID-THIGH Nik Melo MD 200 [place] [address] Referral ID Status Reason Start Date Expiration Date V isits Requested Visits Authorized [id number] Authorized Precert 10/26/2021 10/27/2022 999 999 Encounter Details Date Type Department Care Team Description 09/05/20[address] Laboratory [address] [id number] [place] [address] [place] [address] Encounter for adjustment and management of vascular access device; 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 documented as of this encounter (statuses as of 09/05/2022) Immunizations Name Administration Dates Next Due COVID-19 [...] Encounters Date Type Specialty Care Team Description 09/06/2022 Hem/Onc Treatment Hematology Oncology [place], Chair 8 Hem Onc Scenery [address] [place] [address] [place] [address] 10/03/2022 Laboratory Laboratory [facility] Lab [address] [place] [address] 10/04/2022 Office Visit Hematology Oncology Nik Melo MD 200 [place] [address] 10/04/2022 Hem/Onc Treatment Hematology Oncology [place], Chair 6 Hem Onc Scenery 200 [place] [address] 04/04/2023 Office Visit Urology Cm Rhodes MD 27 [place] [address] [place] [address] Pending Results Name Type Priority Associated Diagnoses Date /Time COMPREHENSIVE METABOLIC PANEL Lab STAT Encounter for adjustment and management of vascular access device 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) Prostate cancer (HCC) 09/05/2022 11:23 AM EST TSH WITH FREE T4 IF INDICATED Lab STAT Encounter for adjustment and management of vascular access device 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) Prostate cancer (HCC) 09/05/2022 11:23 AM EST Health Maintenance Due Date Last Done Comments Hepatitis B (1 of 3 - 3-dose series) 1945 Pneumococcal Vaccine: 65+ Years (1 - PCV) [...] this encounter Medical Devices Implanted Type Area Drying Frame Operator Device Identifier Shelf Expiration Date Model / Serial / Lot Cath Power Port 6fr Clearvue - [id number] Implanted:Qty : 1 on 08/10/2021 by Alexander Rodriguez MD at [facility] Left: Subclavian CR BARD : PERIPHERAL VASCULAR 08/21/2021 [id number] / / documented as of this encounter Procedures Procedure Name Priority Date/Time Associated Diagnosis Comments DIFFERENTIAL, AUTOMATED STAT 09/05/2022 11:23 AM EST Encounter for adjustment and management of vascular access device 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) Prostate cancer (HCC) CBC WITH WBC DIFFERENTIAL STAT 09/05/2022 11:23 AM EST Encounter for adjustment and management of vascular access device 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) Prostate cancer (HCC) CBC STAT 09/05/2022 11:23 AM EST Encounter for adjustment and management of vascular access device 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) Prostate cancer (HCC) documented in this encounter Results * DIFFERENTIAL, AUTOMATED (09/05/2022 11:23 AM EST) WBC 6.90 4.00 - 10.80 K/uL 09/05/2022 11:30 AM EST [employer] [place] 56-02 Neutrophils % 63.5 40.0 - 75.0 % 09/05/2022 11:30 AM [facility] [employer] [place] 56-02 Lymphocytes % 23.0 18.0 - 42.0 % 09/05/2022 11:30 AM [facility] [employer] [place] 56-02 Monocytes % 9.4 1.0 - 11.0 % 09/05/2022 11:30 AM [facility] [employer] [place] 56-02 Eosinophils % 3.8 0.0 - 6.0 % 09/05/2022 11:30 AM EST [employer] [place] 56-02 Basophils % 0.3 0.0 - 2.0 % 09/05/2022 11:30 AM [facility] [employer] [place] 56-02 Absolute Neutrophils 4.38 1.80 - 7.70 K/uL 09/05/2022 11:30 AM [facility] [employer] [place] 56-02 Absolute Lymphocytes 1.59 1.00 - 4.80 K/ul 09/05/2022 11:30 AM EST [employer] [place] 56-02 Absolute Monocytes 0.65 0.00 - 1.10 K/uL 09/05/2022 11:30 AM EST [employer] [place] 56-02 Absolute Eosinophils 0.26 0.00 - 0.70 K/uL 09/05/2022 11:30 AM [facility] [employer] [place] 56-02 Absolute Basophils 0.02 0.00 - 0.20 K/uL 09/05/2022 11:30 AM [facility] [employer] [place] 56-02 Blood Venous blood specimen / Unknown Venipuncture / Unknown 09/05/2022 11:23 AM EST 09/05/2022 11:23 AM EST Nik Melo MD LAB BLOOD [facility] [address] [place] [address] * (ABNORMAL) CBC (09/05/2022 11:23 AM EST) Pathologist [facility] WBC 6.90 4.00 - 10.80 K/uL 09/05/2022 11:30 AM EST [facility] 56 RBC 4.22 4.50 - 5.25 M/uL 09/05/2022 11:30 AM EST [address] HGB 13.5(L) 14.0 - 16.8 g/dL 09/05/2022 11:30 AM [facility] 56 HCT 41.4 40.0 - 48.4 % 09/05/2022 11:30 AM [facility] 56 MCV 98.1 82.0 - 99.5 fL 09/05/2022 11:30 AM EST [facility] 56- MCH 32.0 27.0 - 34.0 pg 09/05/2022 11:30 AM [facility] 56 MCHC 32.6 32.0 - 36.0 g/dL 09/05/2022 11:30 AM [facility] 56 RDW 15.0 11.5 - 15.5 % 09/05/2022 11:30 AM [facility] 56- PLT 119(L) 140 - 400 K/uL 09/05/2022 11:30 AM [facility] 56- MPV 8.4 6.6 - 11.1 fL 09/05/2022 11:30 AM [facility] 56-02 Blood Venous blood specimen / Unknown Venipuncture / Unknown 09/05/2022 11:23 AM EST 09/05/2022 11:23 AM EST Nik Melo MD LAB BLOOD [facility] [place] 56-02 [address] [facility] [place] [address] documented in this encounter Visit Diagnoses Diagnosis [...] and were consensually agreed upon. Care Teams Mining Consultant Relationship Specialty Start Date End Date Hortencia Leal PA-C [address] [place] [address] PCP - General Physician Mental Health Tech 02/08/18 documented as of this encounter
--- OUTSIDE RECORDS SUMMARY | 2023-06-27 07:45 | External Medical Summary ---
Author Name Unknown Address Unknown Organization K09:[facility] [place] [address] Laboratory Report Ordering Provider Test Date Status SHAY CH 10/31/2022 11:09:56 Final Observation Date Value Abnormality Reference (Units ) Status SYNC LEUKOCYTES IN BLOOD BY AUTOMATED COUNT 10/31/2022 11:09:56 6.41 4.00-10.80 (K/uL) Final Segs 10/31/2022 11:09:56 61.8 40.0-75.0 (%) Final Lymphs % 10/31/2022 11:09:56 23.7 18.0-42.0 (%) Final Monos 10/31/2022 11:09:56 9.8 1.0-11.0 (%) Final Eosinophils 10/31/2022 11:09:56 4.4 0.0-6.0 (%) Final Basos 10/31/2022 11:09:56 0.3 0.0-2.0 (%) Final Absolute Segs 10/31/2022 11:09:56 3.96 1.80-7.70 (K/uL) Final Lymphs, absolute 10/31/2022 11:09:56 1.52 1.00-4.80 (K/ul) Final Monos, Abs 10/31/2022 11:09:56 0.63 0.00-1.10 (K/uL) Final Eos, Abs 10/31/2022 11:09:56 0.28 0.00-0.70 (K/uL) Final Basos, Abs 10/31/2022 11:09:56 0.02 0.00-0.20 (K/uL) Final Performing Location [facility] [place] [address]
--- OUTSIDE RECORDS SUMMARY | 2023-06-27 07:45 | External Medical Summary | Summary of Care ---
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) Procedures PET CT SKULL BASE TO MID-THIGH Nik Melo MD 200 [facility] [place] [address] Referral ID Status Reason Start Date Expiration Date V isits Requested Visits Authorized [id number] Authorized Precert 10/26/2021 10/27/2022 999 999 Encounter Details Date Type Department Care Team Description 09/06/2022 Hem/Onc Treatment Hematology/Oncology Treatment, [address] [place] [phone] Maddy, Chair 8 Hem Onc [address] [place] [address] 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)*; Prostate cancer (HCC); Encounter for antineoplastic chemotherapy Allergies Active Allergy Reactions Severity Noted Date Comments Amlodipine 11/02/2020 dizziness Codeine Sulfate Other (Please comment) 10/26/19 11 hyperactivity Hydrochlorothiazide 11/02/2020 hypercalcemia Oxaliplatin 02/09/2022 Infusion related reaction documented as of this encounter (statuses as of 09/06/2022) Medications Medication Sig Dispensed Refills Start Date [...] as of this encounter (statuses as of 09/06/2022) Active Problems Problem Noted Date Dehydration 12/19/2021 [...] as of this encounter (statuses as of 09/06/2022) Resolved Problems Problem Noted Date Resolved Date Elevated prostate specific antigen (PSA) 011 12/31/2013 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 documented as of this encounter (statuses as of 09/06/2022) Immunizations Name Administration Dates Next Due COVID-19 [...] Sign Reading Time Taken Comments Blood Pressure 174/94 09/06/2022 11:12 AM EST Pulse 79 09/06/2022 11:12 AM EST Temperature 36.9 C (98.4 F) 09/06/2022 11:[address] Respiratory Rate 18 09/06/2022 11:12 AM EST Oxygen Saturation - - Inhaled Oxygen Concentration - - Weight 87.2 kg (192 lb 3.2 oz) 09/06/2022 11:12 AM EST Height - - Body Mass Index 32.99 08/10/2021 8:15 AM EDT documented in this encounter Nursing Notes * Andra Solitario RN - 09/06/2022 1:02 PM EST Chair 9 Chemo agents opdivo Appetite good Nausea/Vomiting no Diarrhea no Constipation no Mucositis no Fatigue mild, able to complete ADLs Bleeding no Infection no Rash no Numbness tingling no Pain no Radiation no ABN Labs WNL for treatment Alt in Tx: no Return in 4 weeks Safety and Risk for Injury Patient will remain free from injury. Ensure appropriate safety devices are available. Provide and maintain safe environment. VAD accessed without difficulty, good blood return noted, flushed with NSS and fluids infusing. Functional status at today's visit: Restricted in physically strenuous activity but ambulatory and able to carry out work on a light orsedentary nature, e.g. light house work, office work The drug name, dose, infusion volume, rate and route of administration, expiration date and time, appearance and physical integrity of the drug and rate set on the pump were verified by me and secondsign-in RN. Patient was assessed for symptoms or adverse side effects during treatment. Goals: Patient will remain free from injury. Possible barriers to meeting goals: ambulation with IV pole Stability of the patient: Moderately stable - low risk of patient condition declining or worsening Summary regarding today's goals: Met: Pt remained free of injury during treatment today Patient tolerated treatment well and was discharged in stable condition. Coverage by A Primitivo RN. documented in this encounter Plan of Treatment Upcoming Encounters Date Type Specialty Care Team Description 10/03/2022 Laboratory Laboratory [facility] [address] [address] 10/04/2022 Office Visit Hematology Oncology Nik Melo MD 200 [place] [address] 10/04/2022 Hem/Onc Treatment Hematology Oncology [place], Chair 6 Hem Onc [facility] 200 [place] [address] 04/04/2023 Office Visit Urology Cm Rhodes MD [address] [place] [address] Health Maintenance Due Date Last Done [...] this encounter Medical Devices Implanted Type Area Roller Skate Assembler Device Identifier Shelf Expiration Date Model / Serial / Lot Cath Power Port 6fr Clearvue - [id number] Implanted:Qty : 1 on 08/10/2021 by Alexander Rodriguez MD at [facility] Left: Subclavian CR BARD : PERIPHERAL VASCULAR 08/21/2021 [id number] / / documented as of this encounter [...] ONCE PRN Other, Hypersensitivity Reaction, Starting on Sun09/06/22 at 1114, Until Chandrika 09/07/22 at 1113, For 24 hours EPINEPHrine 1 MG/ML inj 0.3 mg 0.3 mg, Intramuscular, ONCE PRN Other, Hypersensitivity Reaction or Anaphylaxis, Starting on Sun09/06/22 at 1114, Until Chandrika 09/07/22 at 1113, For 24 hours hEParin 100 UNIT/ML Lock Flush inj 500 Units 500 Units (5 mL), IV Lock, PRN Other, IV Flush, Starting on Sun09/06/22 at 1114, Until Chandrika 09/07/22 at 1113, For 24 hours, Do not flush if lock, PICC, or central line not in place; IV infusing or unable to flush. Given 09/06/2022 12:04 PM EST 500 Units Hydrocortisone Sod Suc (PF) (Solu-Cortef) inj 100 mg 100 mg, IV Push, ONCE PRN Other, Hypersensitivity Reaction, Starting on Sun09/06/22 at 1114, Until Chandrika 09/07/22 at 1113, For 24 hours NSS infusion 500 mL, Intravenous, at 50 mL/hr, CONTINUOUS, Starting on Sun09/06/22 at 1215, Until Sun09/06/22 at 2214 Start Infusion 09/06/2022 11:25 AM EST 500 mL 50 mL/hr sodium chloride 0.9 % flush/inj 10 mL 10 mL, IV Push, PRN Other, IV Flush, Starting on Sun09/06/22 at 1114, Until Chandrika 09/07/22 at 1113, For 24 hours, Do not flush if lock, PICC, or central line not in place; IV infusing or unable to flush. Given 09/06/2022 12:04 PM EST 10 mL Inactive Administered Medications - up to 3 most recent administrations Medication Order MAR Action Action Date Dose Rate Site Nivolumab (Opdivo) 480 mg in NSS 100 mL ivpb 480 mg, IV Piggyback, ONCE, 1 dose, On Sun09/06/22 at 1245, Administer over 30 Minutes, DO NOT SHAKE Final concentration should be between 1 and 10 mg/ml Use a sterile, non-pyrogenic, low-protein binding in-line filter (0.2 micrometer-1.2 micrometer) Start Infusion 09/06/2022 11:31 AM EST 480 mg 200 mL/hr documented [...] were consensually agreed upon. Care Teams Senior Peoplesoft Developer Relationship Specialty Start Date End Date Hortencia Leal PA-C [address] [place] [address] PCP - General Physician Surface Logging Systems Logger 02/08/18 documented as of this encounter
--- OUTSIDE RECORDS SUMMARY | 2023-06-27 07:45 | External Medical Summary | Summary of Care ---
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) Procedures PET CT SKULL BASE TO MID-THIGH Nik Melo MD 200 [place] [address] Referral ID Status Reason Start Date Expiration Date V isits Requested Visits Authorized [id number] Authorized Precert 10/26/2021 10/27/[phone] Encounter Details Date Type Department Care Team Description 10/03/2022 Laboratory Laboratory [address] [phone] [place] [address] [place] [address] Encounter for adjustment and management of vascular access device; 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 documented as of this encounter (statuses as of 10/03/2022) Immunizations Name Administration Dates Next Due COVID-19 [...] Encounters Date Type Specialty Care Team Description 10/04/2022 Office Visit Hematology Oncology Nik Melo MD 200 [place] [address] 10/04/2022 Hem/Onc Treatment Hematology Oncology [place], Chair 6 Hem On[address] [address] 04/04/2023 Office Visit Urology Cm Rhodes MD [address] [address] Pending Results Name Type Priority Associated Diagnoses Date /Time COMPREHENSIVE METABOLIC PANEL Lab STAT Encounter for adjustment and management of vascular access device 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) Prostate cancer (HCC) 10/03/2022 11:16 AM EST TSH WITH FREE T4 IF INDICATED Lab STAT Encounter for adjustment and management of vascular access device 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) Prostate cancer (HCC) 10/03/2022 11:16 AM EST Health Maintenance Due Date Last [...] this encounter Medical Devices Implanted Type Area Ice Plant Operator Device Identifier Shelf Expiration Date Model / Serial / Lot Cath Power Port 6fr Clearvue - [id number] Implanted:Qty : 1 on 08/10/2021 by Alexander Rodriguez MD [place] [facility] [place]: Subclavian CR BARD : PERIPHERAL VASCULAR 08/21/2021 [id number] / / documented as of this encounter Procedures Procedure Name Priority Date/Time Associated Diagnosis Comments DIFFERENTIAL, AUTOMATED STAT 10/03/2022 11:16 AM EST Encounter for adjustment and management of vascular access device 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) Prostate cancer (HCC) CBC WITH WBC DIFFERENTIAL STAT 10/03/2022 11:16 AM EST Encounter for adjustment and management of vascular access device 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) Prostate cancer (HCC) CBC STAT 10/03/2022 11:16 AM EST Encounter for adjustment and management of vascular access device 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) Prostate cancer (HCC) documented in this encounter Results * DIFFERENTIAL, AUTOMATED (10/03/2022 11:16 AM EST) WBC 6.51 4.00 - 10.80 K/uL 10/03/2022 11:21 AM [facility] 56-02 Neutrophils % 62.2 40.0 - 75.0 % 10/03/2022 11:21 AM [facility] 56-02 Lymphocytes % 22.6 18.0 - 42.0 % 10/03/2022 11:21 AM [facility] 56-02 Monocytes % 9.7 1.0 - 11.0 % 10/03/2022 11:21 AM [facility] 56-02 Eosinophils % 5.2 0.0 - 6.0 % 10/03/2022 11:21 AM [facility] 56-02 Basophils % 0.3 0.0 - 2.0 % 10/03/2022 11:21 AM [facility] 56-02 Absolute Neutrophils 4.05 1.80 - 7.70 K/uL 10/03/2022 11:21 AM [facility] 56-02 Absolute Lymphocytes 1.47 1.00 - 4.80 K/ul 10/03/2022 11:21 AM [facility] 56-02 Absolute Monocytes 0.63 0.00 - 1.10 K/uL 10/03/2022 11:21 AM [facility] 56-02 Absolute Eosinophils 0.34 0.00 - 0.70 K/uL 10/03/2022 11:21 AM [facility] 56-02 Absolute Basophils 0.02 0.00 - 0.20 K/uL 10/03/2022 11:21 AM [facility] 56-02 Blood Venous blood specimen / Unknown Venipuncture / Unknown 10/03/2022 11:16 AM EST 10/03/2022 11:16 AM EST Nik Melo MD LAB BLOOD ORDERA BLES [facility] 56-[address] [place] [address] * (ABNORMAL) CBC (10/03/2022 11:16 AM EST) WBC 6.51 4.00 - 10.80 K/uL 10/03/2022 11:21 AM EST [facility] 56- RBC 4.11 4.50 - 5.25 M/uL 10/03/2022 11:21 AM [facility] 56- HGB 13.3(L) 14.0 - 16.8 g/dL 10/03/2022 11:21 AM [facility] 56- HCT 40.8 40.0 - 48.4 % 10/03/2022 11:21 AM [facility] 56- MCV 99.3 82.0 - 99.5 fL 10/03/2022 11:21 AM [facility] 56- MCH 32.4 27.0 - 34.0 pg 10/03/2022 11:21 AM [facility] 56 MCHC 32.6 32.0 - 36.0 g/dL 10/03/2022 11:21 AM [facility] 56- RDW 15.1 11.5 - 15.5 % 10/03/2022 11:21 AM [facility] 56- PLT 138(L) 140 - 400 K/uL 10/03/2022 11:21 AM [facility] 56- MPV 8.5 6.6 - 11.1 fL 10/03/2022 11:21 AM [facility] 56- Blood Venous blood specimen / Unknown Venipuncture / Unknown 10/03/2022 11:16 AM EST 10/03/2022 11:16 AM EST Nik Melo MD LAB BLOOD ORDERA BLES [facility] 56- [address] [place] [address] documented in this encounter Visit Diagnoses Diagnosis [...] and were consensually agreed upon. Care Teams Entry Level Sales Representative Relationship Specialty Start Date End Date Hortencia Leal PA-C [address] [facility] [place] [address] PCP - General Physician Contract Clerk 02/08/18 documented as of this encounter
--- OUTSIDE RECORDS SUMMARY | 2023-06-27 07:45 | External Medical Summary ---
Author Name Unknown Address Unknown Organization [id number]:[facility] [place] [address] [place] [address] Laboratory Report Ordering Provider Test Date Status SHAY CH 09/05/2022 11:23:32 Final Observation Date Value Abnormality Reference (Units ) Status TSH 09/05/2022 11:23:32 0.96 0.27-4.20 (uIU/mL) Final Performing Location [facility] [place] [address] [place] [address]
--- OUTSIDE RECORDS SUMMARY | 2023-06-27 07:45 | External Medical Summary ---
Author Name Unknown Address Unknown Organization [id number]:[facility] [place] [address] Laboratory Report Ordering Provider Test Date Status SHAY CH 10/03/2022 11:16:18 Final Observation Date Value Abnormality Reference (Units ) Status SYNC LEUKOCYTES IN BLOOD BY AUTOMATED COUNT 10/03/2022 11:16:18 6.51 4.00-10.80 (K/uL) Final Segs 10/03/2022 11:16:18 62.2 40.0-75.0 (%) Final Lymphs % 10/03/2022 11:16:18 22.6 18.0-42.0 (%) Final Monos 10/03/2022 11:16:18 9.7 1.0-11.0 (%) Final Eosinophils 10/03/2022 11:16:18 5.2 0.0-6.0 (%) Final Basos 10/03/2022 11:16:18 0.3 0.0-2.0 (%) Final Absolute Segs 10/03/2022 11:16:18 4.05 1.80-7.70 (K/uL) Final Lymphs, absolute 10/03/2022 11:16:18 1.47 1.00-4.80 (K/ul) Final Monos, Abs 10/03/2022 11:16:18 0.63 0.00-1.10 (K/uL) Final Eos, Abs 10/03/2022 11:16:18 0.34 0.00-0.70 (K/uL) Final Basos, Abs 10/03/2022 11:16:18 0.02 0.00-0.20 (K/uL) Final Performing Location [facility] [place] [address]
--- OUTSIDE RECORDS SUMMARY | 2023-06-27 07:45 | External Medical Summary ---
Author Name Unknown Address Unknown Organization [id number]:[facility] [place] [address] Laboratory Report Ordering Provider Test Date Status SHAY CH 09/05/2022 11:23:32 Final Observation Date Value Abnormality Reference (Units ) Status SYNC LEUKOCYTES IN BLOOD BY AUTOMATED COUNT 09/05/2022 11:23:32 6.90 4.00-10.80 (K/uL) Final Segs 09/05/2022 11:23:32 63.5 40.0-75.0 (%) Final Lymphs % 09/05/2022 11:23:32 23.0 18.0-42.0 (%) Final Monos 09/05/2022 11:23:32 9.4 1.0-11.0 (%) Final Eosinophils 09/05/2022 11:23:32 3.8 0.0-6.0 (%) Final Basos 09/05/2022 11:23:32 0.3 0.0-2.0 (%) Final Absolute Segs 09/05/2022 11:23:32 4.38 1.80-7.70 (K/uL) Final Lymphs, absolute 09/05/2022 11:23:32 1.59 1.00-4.80 (K/ul) Final Monos, Abs 09/05/2022 11:23:32 0.65 0.00-1.10 (K/uL) Final Eos, Abs 09/05/2022 11:23:32 0.26 0.00-0.70 (K/uL) Final Basos, Abs 09/05/2022 11:23:32 0.02 0.00-0.20 (K/uL) Final Performing Location [facility] [place] [address]
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
--- OUTSIDE RECORDS SUMMARY | 2023-06-27 07:45 | External Medical Summary ---
Author Name Unknown Address Unknown Organization [id number]:[facility] [place] [address] [place] [address] Laboratory Report Ordering Provider Test Date Status SHAY CH 10/03/2022 11:16:18 Final Observation Date Value Abnormality Reference (Units ) Status TSH 10/03/2022 11:16:18 0.65 0.27-4.20 (uIU/mL) Final Performing Location [facility]ORY [facility] [place] - [address] [place] [address]
--- OUTSIDE RECORDS SUMMARY | 2023-06-27 07:45 | External Medical Summary ---
Author Name Unknown Address Unknown Organization K09:[facility] [place] [address] Laboratory Report Ordering Provider Test Date Status SHAY CH 10/31/2022 11:09:56 Final Observation Date Value Abnormality Reference (Units ) Status WBC, Total 10/31/2022 11:09:56 6.41 4.00-10.8 0 (K/uL) Final RBC 10/31/2022 11:09:56 4.11 4.50-5.25 (M/uL) Final Hemoglobin 10/31/2022 11:09:56 13.0 Below low normal 14 .0-16.8 (g/dL) Final HCT 10/31/2022 11:09:56 40.8 40.0-48.4 (%) Final MCV 10/31/2022 11:09:56 99.3 82.0-99.5 (fL) Final MCH 10/31/2022 11:09:56 31.6 27.0-34.0 (pg) Final MCHC 10/31/2022 11:09:56 31.9 32.0-36.0 (g/dL) Final RDW 10/31/2022 11:09:56 15.1 11.5-15.5 (%) Final Platelets 10/31/2022 11:09:56 134 Below low normal 140 -400 (K/uL) Final MPV 10/31/2022 11:09:56 8.4 6.6-11.1 ( fL) Final Performing Location [facility] [place] [address]
--- OUTSIDE RECORDS SUMMARY | 2023-06-27 07:45 | External Medical Summary ---
Author Name Unknown Address Unknown Organization K09:[facility] [place] [address] Laboratory Report Ordering Provider Test Date Status SHAY CH 10/03/2022 11:16:18 Final Observation Date Value Abnormality Reference (Units ) Status WBC, Total 10/03/2022 11:16:18 6.51 4.00-10.8 0 (K/uL) Final RBC 10/03/2022 11:16:18 4.11 4.50-5.25 (M/uL) Final Hemoglobin 10/03/2022 11:16:18 13.3 Below low normal 14 .0-16.8 (g/dL) Final HCT 10/03/2022 11:16:18 40.8 40.0-48.4 (%) Final MCV 10/03/2022 11:16:18 99.3 82.0-99.5 (fL) Final MCH 10/03/2022 11:16:18 32.4 27.0-34.0 (pg) Final MCHC 10/03/2022 11:16:18 32.6 32.0-36.0 (g/dL) Final RDW 10/03/2022 11:16:18 15.1 11.5-15.5 (%) Final Platelets 10/03/2022 11:16:18 138 Below low normal 140 -400 (K/uL) Final MPV 10/03/2022 11:16:18 8.5 6.6-11.1 ( fL) Final Performing Location [facility] [place] [address]
--- OUTSIDE RECORDS SUMMARY | 2023-06-27 07:45 | External Medical Summary ---
Author Name Unknown Address Unknown Organization [id number]:[facility] [place] [address] Laboratory Report Ordering Provider Test Date Status SHAY CH 10/03/2022 11:16:18 Final Observation Date Value Abnormality Reference (Units ) Status BUN 10/03/2022 11:16:18 28 Above high normal 6-20 (mg/dL) Final Creatinine 10/03/2022 11:16:18 1.7 Above high normal 0.6-1.2 (mg/dL) Final Glomerular filtration rate/1.73 sq M.predicted [Volume Rate/Area] in Serum, Plasma or Blood by Creatinine-based formula (CKD-EPI) 10/03/2022 11:16:18 40 Below low normal >=60 (mL/min) Final Performing Location [facility] [place] [address]
--- OUTSIDE RECORDS SUMMARY | 2023-06-27 07:45 | External Medical Summary ---
Author Name Unknown Address Unknown Organization K09:[facility] [place] [address] Laboratory Report Ordering Provider Test Date Status SHAY CH 10/31/2022 11:09:56 Final Observation Date Value Abnormality Reference (Units ) Status BUN 10/31/2022 11:09:56 28 Above high normal 6-20 (mg/dL) Final Creatinine 10/31/2022 11:09:56 1.8 Above high normal 0.6-1.2 (mg/dL) Final Glomerular filtration rate/1.73 sq M.predicted [Volume Rate/Area] in Serum, Plasma or Blood by Creatinine-based formula (CKD-EPI) 10/31/2022 11:09:56 40 Below low normal >=60 (mL/min) Final Performing Location [facility] [place] [address]
--- OUTSIDE RECORDS SUMMARY | 2023-06-27 07:45 | External Medical Summary | Summary of Care ---
Author Name Unknown Organization [place] [address] Care Team Providers Care Propellant Charge Loader Name Role Phone Hortencia Leal PA-C Primary Care Provid er Encounter Details Date Type Department Care Team Description 10/01/2022 Orders Only Hematology/Oncology [facility] 200 [place] [address] Nik Melo MD 200 [place] [address] Allergies Active Allergy Reactions Severity Noted Date Comments Amlodipine 11/02/2020 dizziness Codeine Sulfate Other (Please comment) 10/26/19 11 hyperactivity Hydrochlorothiazide 11/02/2020 hypercalcemia Oxaliplatin 02/09/2022 Infusion related reaction documented as of this encounter (statuses as of 10/01/2022) Medications Medication Sig Dispensed Refills Start Date [...] times a day. 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 documented as of this encounter (statuses as of 10/01/2022) Immunizations Name Administration Dates Next Due COVID-19 [...] Specialty Care Team Description 10/03/2022 Laboratory Laboratory [facility] 200 [place] [address] 10/04/2022 Office Visit Hematology Oncology Nik Melo MD 200 [place] [address] 10/04/2022 Hem/Onc Treatment Hematology Oncology [place], Chair 6 Hem Onc Scenery 200 [place] [address] 04/04/2023 Office Visit Urology Cm Rhodes MD [address] [address] Health Maintenance Due Date Last [...] this encounter Medical Devices Implanted Type Area Smart Grid Engineer Device Identifier Shelf Expiration Date Model / Serial / Lot Cath Power Port 6fr Clearvue - [id number] Implanted:Qty : 1 on 08/10/2021 by Alexander Rodriguez MD at [place] [facility] [place] Left: Subclavian CR BARD : PERIPHERAL VASCULAR 08/21/2021 [id number] / / documented as of this encounter [...] and were consensually agreed upon. Care Teams Propellant Charge Loader Relationship Specialty Start Date End Date Hortencia Leal PA-C [address] [place] [address] PCP - General Physician Backpackers Manager 02/08/18 documented as of this encounter
--- OUTSIDE RECORDS SUMMARY | 2023-06-27 07:45 | External Medical Summary | Summary of Care ---
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) Procedures PET CT SKULL BASE TO MID-THIGH Nik Melo MD 200 [facility] [place] [address] Referral ID Status Reason Start Date Expiration Date V isits Requested Visits Authorized [id number] Authorized Precert 10/26/2021 10/27/2022 999 999 Encounter Details Date Type Department Care Team Description 10/04/2022 Hem/Onc Treatment Hematology/Oncology Treatment, [address] [place] [phone] [place], Chair [address] [place] [address] 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 As needed 0 Active [place]-3 Fatty Acids (FISH OIL) 1000 MG Capsule [...] as of this encounter Nursing Notes * Danielle Calvert RN - 10/04/2022 10:50 AM EST Functional status at today's visit: Restricted [...] meeting goals: pt is a high fall risk Stability of the patient: Moderately stable - low risk of patient condition declining or worsening Summary regarding today's goals: Met: Pt remained free from injury during treatment today. Discharged in stable condition. No coverage. * Danielle Calvert RN - 10/04/2022 10:16 AM EST Chair 7, Opdivo. Pt seen by Dr. Melo; refer to OV notes. Labs okay for treatment. VAD accessed; NSS infusing. Safety and Risk for Injury Patient will remain free from injury. Ensure appropriate safety devices are available. Provide and maintain safe environment. documented in this encounter Plan of Treatment Upcoming Encounters Date Type Specialty Care Team Description 10/31/2022 Laboratory Laboratory [place], Lab Scenery [address] [place] [address] 11/01/2022 Hem/Onc Treatment Hematology Oncology [place], Chair 11 Hem Onc Scenery [address] [place] [address] 11/28/2022 Laboratory Laboratory [place], Lab Scenery [address] [place] [address] 11/29/2022 Hem/Onc Treatment Hematology Oncology [place], Chair 4 Hem Onc Scenery [address] [place] [address] 12/05/2022 Imaging Radiology 12/11/2022 Office Visit Hematology Oncology LorieNik hilliard MD [address] [place], [place] [address] 12/26/2022 Laboratory Laboratory [place], Lab Scenery [address] [place] [address] 12/27/2022 Hem/Onc Treatment Hematology Oncology [place], Chair 8 Hem Onc Scenery [address] [place] [address] 04/04/2023 Office Visit [facility]rology [facility]m 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)- Primary Prostate cancer (HCC) Malignant neoplasm of prostate Encounter for antineoplastic immunotherapy documented in this encounter Administered Medications Active Administered Medications - up to 3 most recent administrations Medication Order MAR Action Action Date Dose Rate Site diphenhydrAMINE (Benadryl) inj 50 mg 50 mg, IV Push, ONCE PRN Other, Hypersensitivity Reaction, Starting on Sun10/04/22 at 0910, Until Chandrika 10/05/22 at 0909, For 24 hours EPINEPHrine 1 MG/ML inj 0.3 mg 0.3 mg, Intramuscular, ONCE PRN Other, Hypersensitivity Reaction or Anaphylaxis, Starting on Sun10/04/22 at 0910, Until Chandrika 10/05/22 at 0909, For 24 hours hEParin 100 UNIT/ML Lock Flush inj 500 Units 500 Units (5 mL), IV Lock, PRN Other, IV Flush, Starting on Sun10/04/22 at 0910, Until Chandrika 10/05/22 at 0909, For 24 hours, Do not flush if lock, PICC, or central line not in place; IV infusing or unable to flush. Given 10/04/2022 10:38 AM EST 500 Units Hydrocortisone Sod Suc (PF) (Solu-Cortef) inj 100 mg 100 mg, IV Push, ONCE PRN Other, Hypersensitivity Reaction, Starting on Sun10/04/22 at 0910, Until Chandrika 10/05/22 at 0909, For 24 hours NSS infusion 500 mL, Intravenous, at 50 mL/hr, CONTINUOUS, Starting on Sun10/04/22 at 1015, Until Sun10/04/22 at 2014 Start Infusion 10/04/2022 9:29 AM EST 500 mL 50 mL/hr sodium chloride 0.9 % flush central line 10 mL 10 mL, IV Push, PRN Other, IV Flush, Starting on Sun10/04/22 at 0910, Until Chandrika 10/05/22 at 0909, For 24 hours, Do not flush if lock, PICC, or central line not in place; IV infusing or unable to flush. Given 10/04/2022 10:38 AM EST 10 mL Inactive Administered Medications - up to 3 most recent administrations Medication Order MAR Action Action Date Dose Rate Site Nivolumab (Opdivo) 480 mg in NSS 100 mL ivpb 480 mg, IV Piggyback, ONCE, 1 dose, On Sun10/04/22 at 1045, Administer over 30 Minutes, DO NOT SHAKE Final concentration should be between 1 and 10 mg/ml Use a sterile, non-pyrogenic, low-protein binding in-line filter (0.2 micrometer-1.2 micrometer) Start Infusion 10/04/2022 9:59 AM EST 480 mg 200 mL/hr documented [...] were consensually agreed upon. Care Teams Director Executive Communications Relationship Specialty Start Date End Date Hortencia Leal PA-C [address] [facility] [address] PCP - General Physician Drafting Engineer 02/08/18 documented as of this encounter
--- OUTSIDE RECORDS SUMMARY | 2023-06-27 07:45 | External Medical Summary ---
Author Name Unknown Address Unknown Organization K09:[facility] [place] [place] [address] Laboratory Report Ordering Provider Test Date Status SHAY CH 09/05/2022 11:23:32 Final Observation Date Value Abnormality Reference (Units ) Status BUN 09/05/2022 11:23:32 27 Above high normal 6-20 (mg/dL) Final Creatinine 09/05/2022 11:23:32 1.8 Above high normal 0.6-1.2 (mg/dL) Final Glomerular filtration rate/1.73 sq M.predicted [Volume Rate/Area] in Serum, Plasma or Blood by Creatinine-based formula (CKD-EPI) 09/05/2022 11:23:32 39 Below low normal >=60 (mL/min) Final Performing Location [facility] [place] [address]
--- OUTSIDE RECORDS SUMMARY | 2023-06-27 07:45 | External Medical Summary | Summary of Care ---
Author Name Unknown Organization [place] [address] Care Team Providers Care Head Grinder Name Role Phone Hortencia Leal PA-C Primary Care Provid er Encounter Details Date Type Department Care Team Description 10/28/2022 Orders Only Hematology/Oncology [facility] 200 [place] [address] Nik Melo MD 200 [facility] [place] [address] Allergies Active Allergy Reactions Severity Noted Date Comments Amlodipine 11/02/2020 dizziness Codeine Sulfate Other (Please comment) 10/26/19 11 hyperactivity Hydrochlorothiazide 11/02/2020 hypercalcemia Oxaliplatin 02/09/2022 Infusion related reaction documented as of this encounter (statuses as of 10/28/2022) Medications Medication Sig Dispensed Refills Start Date [...] times a day. 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 documented as of this encounter (statuses as of 10/28/2022) Immunizations Name Administration Dates Next Due COVID-19 [...] Specialty Care Team Description 10/31/2022 Laboratory Laboratory [place], Lab Scenery [address] [place] [address] 11/01/2022 Hem/Onc Treatment Hematology Oncology [place], Chair 11 Hem Onc Scenery [address] [place] [address] 11/28/2022 Laboratory Laboratory [place], Lab Scenery [address] [place] [address] 11/29/2022 Hem/Onc Treatment Hematology Oncology [place], Chair 4 Hem Onc Scenery [address] [place] [address] 12/05/2022 Imaging Radiology 12/11/2022 Office Visit Hematology Oncology LorieNik hilliard MD [address] [place] [address] 12/26/2022 Laboratory Laboratory [place], Lab Scenery [address] [place] [address] 12/27/2022 Hem/Onc Treatment Hematology Oncology [place], Chair 8 Hem Onc Scenery [address] [place] [address] 04/04/2023 Office Visit Urology Cm Rhodes MD [address] [place] [address] [place] [address] Health Maintenance Due Date [...] encounter Medical Devices Implanted Type Area Supervisor Ski Production Device Identifier Shelf Expiration Date Model / Serial / Lot Cath Power Port 6fr Clearvue - [id number] Implanted:Qty : 1 on 08/10/2021 by Alexander Rodriguez MD at OR [facility] [place] Left: Subclavian CR BARD : PERIPHERAL VASCULAR 08/21/2021 [id number] / / documented as of this encounter [...] and were consensually agreed upon. Care Teams Head Grinder Relationship Specialty Start Date End Date Hortencia Leal PA-C [address] [place] [address] PCP - General Physician Jewel Bearing Driller 02/08/18 documented as of this encounter
--- OUTSIDE RECORDS SUMMARY | 2023-06-27 07:45 | External Medical Summary ---
Author Name Unknown Address Unknown Organization K01[facility] [place] [address] [place] [address] Laboratory Report Ordering Provider Test Date Status SHAY CH 10/31/2022 11:09:56 Final Observation Date Value Abnormality Reference (Units ) Status TSH 10/31/2022 11:09:56 0.94 0.27-4.20 (uIU/mL) Final Performing Location [facility] [place] [place] [address] [place] [address]
--- OUTSIDE RECORDS SUMMARY | 2023-06-27 07:45 | External Medical Summary | Summary of Care ---
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) Procedures PET CT SKULL BASE TO MID-THIGH Nik Melo MD 200 [facility] [place] [address] Referral ID Status Reason Start Date Expiration Date V isits Requested Visits Authorized [id number] Authorized 12/04/2022 999 999 Reason for Visit * Reason Comments Follow Up * Evaluate & Treat - Unlimited Visits (Within 30 days (routine)) - Authorized Specialty Diagnoses / Procedures Referred By Lizzie reno Referred To Contact Hematology Oncology Diagnoses Adenocarcinoma esophagus Procedures Eval and treat Hortencia Leal PA-C [address] [facility] [place] [address] Referral ID Status Reason Start Date Expiration Date Visits Requested Visits Authorized [id number] Authorized Specialty Services Required 10/26/2021 10/27/2022 999 999 Encounter Details Date Type Department Care Team Description 10/04/2022 Office Visit Hematology/Oncology [facility] 200 [facility] [address] Nik Melo MD 200 [place] [address] 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 As needed 0 Active [place]-3 Fatty Acids (FISH OIL) 1000 MG Capsule [...] Sign Reading Time Taken Comments Blood Pressure 168/83 10/04/2022 8:24 AM EST Pulse 68 10/04/2022 8:24 AM EST Temperature 35.8 C (96.5 F) 10/04/2022 8:24 AM ES T Respiratory Rate 18 10/04/2022 8:24 AM EST Oxygen Saturation 96% 10/04/2022 8:24 AM EST Inhaled Oxygen Concentration - - Weight 86.8 kg (191 lb 6.4 oz) 10/04/2022 8:24 A M EST Height - - Body Mass Index 32.85 08/10/2021 8:15 AM EDT documented in this encounter Progress Notes * Nik Melo MD - 10/04/2022 8:26 AM EST Outpatient Consult Note Data Source: Patient, Epic record. Data Source: Patient, Epic record. 10/04/2022 8:26 AM [place] [id number] 76 year old Patient Encounter: HEMATOLOGY/ONCOLOGY [facility] Cancer Diagnosis: -Metastatic esophageal cancer-laparoscopic biopsy of the peritoneal nodule which is positive for metastatic disease - Prostate cancer,pT2, Group IIA, [place] 3+4 Current Treatment: -Nivolumab was added on [...] was consistent with adenocarcinoma moderately differentiated overall [place] score was 3+4=7with perineural invasion. Histopathology was [...] radical prostatectomy: Adenocarcinoma, moderately poorly differentiated Overall [place] score 3+4=7 High grade prostatic intraepithelial neoplasia [...] size and separation, cribriform and papillary patterns [place] Score (primary + secondary) = 5-6: Moderately well differentiated Nodule #2, involves: right lateral apex and right apex Dimensions: 0.9 x 0.3 x 0.9 cm HISTOLOGIC TYPE: Adenocarcinoma HISTOLOGIC GRADE ([place]): Primary pattern is: Grade 3: single acini of variable size and separation, cribriform and papillarypatterns Secondary pattern is: Grade 3: single acini of variable size and separation, cribriform and papillary patterns [place] Score (primary + secondary) = 5-6: Moderately [...] and fused epithelium, can show clear cells [place] Score (primary + secondary) = 7: Moderately [...] Benign mesothelial cells Interval History: He is in good performance status and doing well without any new symptoms of complain. His appetite is good and he is gaining weight. Denies any headache, dizziness, blurred vision, chest pain, shortness breath palpitation, abdominal pain or distention, nausea, vomiting, fever, night sweats, change in the bowel habits, hematuria, hematochezia, weight loss. LABS/IMAGING: He would blood test done yesterday shows WBC count of 6.51, hemoglobin 13.3 and platelet count 138.Creatinine is 1.7 the rest of the electrolytes and LFTs are in acceptable range. Last PET scan was done on 06/05/2022 and it was negative for any active disease. REVIEW OF SYSTEMS: General: No Fever, chills, [...] mouth 2 times a day. As needed [place]-3 Fatty Acids (FISH OIL) 1000 MG Capsule [...] appearing patient in no acute distress BP 168/83 (BP Site: Left Arm, BP Position: Sitting, BP Cuff Size: Large) | Pulse 68 | Temp 35.8 C(96.5 F) (Tympanic) | Resp 18 | Wt 86.8 kg (191 lb 6.4 oz) | SpO2 96% | BMI 32.85 kg/m | BSA 1.98 m Vitals reviewed. HEENT: No oral or [...] Heart: Regular rate and rhythm, normal S1, S2, no appreciable murmurs, rubs, gallops Abdomen: Soft, nontender, bowel sounds present, no [...] shows mass involving the distal esophagus going intothe stomach with positive lymph node. He had [...] active disease. Clinically he is doing well without any new symptoms and physical examination is unremarkable. All the available blood test result are in acceptable range. He is tolerating nivolumab very well without any significant side effects or toxicity. Discussed with the patient about diagnosis reviewed allthe available blood tests and PET scan finding with him. PLAN: Continue nivolumab on every 4 weeks basis. He will return to clinic for follow- up in 4 weeks with CBC, CMP, TSH and follow-up PET scan. The patient voiced understanding of all of [...] further clarification, please direct questions to me.) * Opal Wesley LPN - 10/04/2022 8:25 AM EST Patient identifed by name and [...] it for you? ALREADY ACTIVE Filed Vitals: 10/04/22 0824 BP: 168/83 Pulse: 68 Resp: 18 Temp: 35.8 C (96.5 F) TempSrc: Tympanic SpO2: 96% Weight: 86.8 kg (191 lb 6.4 oz) documented in this encounter Plan of Treatment Upcoming Encounters Date Type Specialty Care Team Description 10/04/2022 Hem/Onc Treatment Hematology Oncology [place], Chair 6 Hem Onc Scenery [address] [place] [address] Arrived 04/04/2023 Office Visit Urology Cm Rhodes MD 27 [facility] [address] [address] Scheduled Orders Name Type Priority Associated Diagnoses Orde r Schedule PET CT SKULL BASE TO MID-THIGH Medical Imaging Routine 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 Left: Subclavian CR BARD : PERIPHERAL VASCULAR 08/21/2021 [id number] / / documented as of this encounter [...] and were consensually agreed upon. Care Teams Grinder Set Up Operator Thread Relationship Specialty Start Date End Date Hortencia Leal PA-C [address] [facility] [address] PCP - General Physician Metal Reclamation Kettle Tender 02/08/18 documented as of this encounter"
--- OUTSIDE RECORDS SUMMARY | 2023-06-27 07:45 | External Medical Summary | Summary of Care ---
Author Name Unknown Organization [place] [address] Care Team Providers Care Rn Ortho Name Role Phone Hortencia Leal PA-C Primary Care Provid er Reason for Visit * Reason Onset Date Comments Appointment 10/04/2022 Encounter Details Date Type Department Care Team Description 10/04/2022 Telephone [facility]ematology/On[facility] [place] 200 [facility] [place] [address] Nik Melo MD 200 [facility] [place] [place] [address] Appointment Allergies Active Allergy Reactions Severity Noted [...] times a day. As needed 0 Active [place]-3 Fatty Acids (FISH OIL) 1000 MG Capsule [...] * Telephone Encounter - TANI Johnson - 10/04/2022 9:47 AM EST Patient scheduled for a PET/CT SCAN @ for 12/05/22 at 12:45pm. Patient given prep instructions. documented in this encounter Plan of Treatment Upcoming Encounters Date Type Specialty Care Team Description 10/31/2022 Laboratory Laboratory [facility] 200 [place] [address] 11/01/2022 Office Visit Hematology Oncology Nik Melo MD 200 [place] [address] 11/01/2022 Hem/Onc Treatment Hematology Oncology [place], Chair 11 Hem Onc Scenery 200 [place] [address] 12/05/2022 Imaging Radiology 04/04/2023 Office Visit Urology Cm Rhodes MD [address] [place] [address] Health Maintenance Due Date Last Done [...] this encounter Medical Devices Implanted Type Area Publicity Expert Device Identifier Shelf Expiration Date Model / Serial / Lot Cath Power Port 6fr Clearvue - [id number] Implanted:Qty : 1 on 08/10/2021 by Alexander Rodriguez MD at [facility] Left: Subclavian CR BARD : PERIPHERAL VASCULAR 08/21/2021 [id number] / / documented as of this encounter [...] were consensually agreed upon. Care Teams Rn Ortho Relationship Specialty Start Date End Date Hortencia Leal PA-C [address] [place] [address] PCP - General Physician Tower Observer 02/08/18 documented as of this encounter
--- OUTSIDE RECORDS SUMMARY | 2023-06-27 07:46 | External Medical Summary ---
Author Name Unknown Address Unknown Organization K01:[facility] [place] - [address] [place] [address] Laboratory Report Ordering Provider Test Date Status SHAY CH 07/11/2022 13:19:00 Final Observation Date Value Abnormality Reference (Units ) Status TSH 07/11/2022 13:19:00 0.64 0.27-4.20 (uIU/mL) Final Performing Location [facility] [place] - [address] [place] [address]
--- OUTSIDE RECORDS SUMMARY | 2023-06-27 07:46 | External Medical Summary ---
Author Name Unknown Address Unknown Organization [id number]:[facility]ORY [facility] [place] [address] Laboratory Report Ordering Provider Test Date Status SHAY CH 08/08/2022 11:19:07 Final Observation Date Value Abnormality Reference (Units ) Status WBC, Total 08/08/2022 11:19:07 5.35 4.00-10.8 0 (K/uL) Final RBC 08/08/2022 11:19:07 4.17 4.50-5.25 (M/uL) Final Hemoglobin 08/08/2022 11:19:07 13.2 Below low normal 14 .0-16.8 (g/dL) Final HCT 08/08/2022 11:19:07 40.9 40.0-48.4 (%) Final MCV 08/08/2022 11:19:07 98.1 82.0-99.5 (fL) Final MCH 08/08/2022 11:19:07 31.7 27.0-34.0 (pg) Final MCHC 08/08/2022 11:19:07 32.3 32.0-36.0 (g/dL) Final RDW 08/08/2022 11:19:07 14.9 11.5-15.5 (%) Final Platelets 08/08/2022 11:19:07 113 Below low normal 140 -400 (K/uL) Final MPV 08/08/2022 11:19:07 8.6 6.6-11.1 ( fL) Final Performing Location [facility] [place] [address]
--- OUTSIDE RECORDS SUMMARY | 2023-06-27 07:46 | External Medical Summary ---
Author Name Unknown Address Unknown Organization K09:[facility] [place] [address] Laboratory Report Ordering Provider Test Date Status SHAY CH 09/05/2022 11:23:32 Final Observation Date Value Abnormality Reference (Units ) Status WBC, Total 09/05/2022 11:23:32 6.90 4.00-10.8 0 (K/uL) Final RBC 09/05/2022 11:23:32 4.22 4.50-5.25 (M/uL) Final Hemoglobin 09/05/2022 11:23:32 13.5 Below low normal 14 .0-16.8 (g/dL) Final HCT 09/05/2022 11:23:32 41.4 40.0-48.4 (%) Final MCV 09/05/2022 11:23:32 98.1 82.0-99.5 (fL) Final MCH 09/05/2022 11:23:32 32.0 27.0-34.0 (pg) Final MCHC 09/05/2022 11:23:32 32.6 32.0-36.0 (g/dL) Final RDW 09/05/2022 11:23:32 15.0 11.5-15.5 (%) Final Platelets 09/05/2022 11:23:32 119 Below low normal 140 -400 (K/uL) Final MPV 09/05/2022 11:23:32 8.4 6.6-11.1 ( fL) Final Performing Location [facility] [place] [address]
--- OUTSIDE RECORDS SUMMARY | 2023-06-27 07:46 | External Medical Summary ---
Author Name Unknown Address Unknown Organization K09:[facility] [place] [address] Laboratory Report Ordering Provider Test Date Status SHAY CH 07/11/2022 13:19:00 Final Observation Date Value Abnormality Reference (Units ) Status WBC, Total 07/11/2022 13:19:00 6.49 4.00-10.8 0 (K/uL) Final RBC 07/11/2022 13:19:00 4.23 4.50-5.25 (M/uL) Final Hemoglobin 07/11/2022 13:19:00 13.4 Below low normal 14 .0-16.8 (g/dL) Final HCT 07/11/2022 13:19:00 40.5 40.0-48.4 (%) Final MCV 07/11/2022 13:19:00 95.7 82.0-99.5 (fL) Final MCH 07/11/2022 13:19:00 31.7 27.0-34.0 (pg) Final MCHC 07/11/2022 13:19:00 33.1 32.0-36.0 (g/dL) Final RDW 07/11/2022 13:19:00 14.7 11.5-15.5 (%) Final Platelets 07/11/2022 13:19:00 121 Below low normal 140 -400 (K/uL) Final MPV 07/11/2022 13:19:00 9.1 6.6-11.1 ( fL) Final Performing Location [facility] [place] [address]
--- OUTSIDE RECORDS SUMMARY | 2023-06-27 07:46 | External Medical Summary ---
Author Name Unknown Address Unknown Organization K01:[facility] [place] [address] [place] [address] Laboratory Report Ordering Provider Test Date Status SHAY CH 08/08/2022 11:19:07 Final Observation Date Value Abnormality Reference (Units ) Status TSH 08/08/2022 11:19:07 0.81 0.27-4.20 (uIU/mL) Final Performing Location [facility] [place] [address] [place] [address]
--- OUTSIDE RECORDS SUMMARY | 2023-06-27 07:46 | External Medical Summary | Summary of Care ---
Author Name Unknown Organization [facility] Address [facility] [place] [address] Care Team Providers Care Watermelon Harvesting Supervisor Name Role Phone Hortencia Leal PA-C Primary Care Provid er Reason for Visit * Reason Onset Date Comments Advice 07/11/2022 myg 07/12, lmom Encounter Details Date Type Department Care Team Description 07/11/2022 Telephone Urology, [facility] [address] [facility] [place] [address] Cm Rhodes MD 27 [facility] [address] [place] [address] Advice (myg 07/12, lmom 07/13) Allergies Active Allergy Reactions Severity Noted Date Comments Amlodipine 11/02/2020 dizziness Codeine Sulfate Other (Please comment) 10/26/19 11 hyperactivity Hydrochlorothiazide 11/02/2020 hypercalcemia Oxaliplatin 02/09/2022 Infusion related reaction documented as of this encounter (statuses as of 07/13/2022) Medications Medication Sig Dispensed Refills Start Date [...] times a day. 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 documented as of this encounter (statuses as of 07/13/2022) Immunizations Name Administration Dates Next Due COVID-19 mRNA, LNP-s, No Pre serve, 2-Dose Series (Moderna) 10/01/2021,02/14/2021,01/17/2021 Seasonal Influenza Virus Vac cine, Unspecified Formulation 07/30/2021 documented as of this encounter Social History Tobacco Use Types Packs/Day Years Used Date Never Smoker Smokeless Tobacco: Never Used Alcohol Use Standard Drinks/Week Comments No 0 (1 standard drink = 0.6 oz pur e alcohol) Sex Assigned at Date Recorded Not on file Job Start Date Occupation Industry Not on file Not on file Not on file documented as of this encounter Miscellaneous Notes * Telephone Encounter - Jenni Sequeira LPN - 07/13/2022 8:44 AM EDT Spoke with pt, aware of below. * Telephone Encounter - Jenni Sequeira LPN - 07/13/2022 8:34 AM EDT Left msg on pt's voicemail asking him to return call to office or check myg msg. * Telephone Encounter - Cm Rhodes MD - 07/11/2022 4:47 PM EDT No need for Lupron at this time. Will consider when his PSA is between 1 and 10. Thanks, HM * Telephone Encounter - Jenni Sequeira LPN - 07/11/2022 4:[address] Rhodes Please see below. Telephone encounter from 04/19 indicated that you are waiting for PSA to rise to restart lupron. His next appt with you is 04/04/23. Please advise. Thank you Andra PSA Results: Lab Results Component Value Date/Time PSA - [facility] 0.05 04/18/2022 10:21 AM PSA - [facility] <0.02 11/29/2021 09:32 AM PSA - [facility] <0.02 08/03/2021 01:48 PM PSA - [facility] 0.08 11/01/2020 10:00 AM PSA - [facility] <0.02 02/24/2020 09:52 AM PSA - [facility] <0.02 11/21/2019 09:43 AM PSA-OUTSIDE LAB 0.074 05/16/2016 12:00 AM * Telephone Encounter - TANI Oseguera - 07/11/2022 10:45 AM EDT Pt calling Dr. Melo (hematology/oncology) suggested that he reach out to dr. Rhodes to ask if he should resume lupron injections. Please advise. documented in this encounter Plan of Treatment Upcoming Encounters Date Type Specialty Care Team Description 08/08/2022 Laboratory Laboratory [place], Lab Scenery [address] [facility] [place] [address] 08/09/2022 Hem/Onc Treatment Hematology Oncology 09/05/2022 Laboratory [facility] [place], Lab Scenery [address] [place] [address] 09/06/2022 Hem/Onc Treatment Hematology Oncology [place], Chair 8 Hem Onc Scenery [address] [facility] [place], [place] [address] 10/03/2022 Laboratory Laboratory [place], Lab Scenery [address] [facility], [place] [address] 10/04/2022 Office Visit Hematology Oncology Nik Melo MD [address] [place] [address] 10/04/2022 Hem/Onc Treatment Hematology Oncology [place], Chair 6 Hem Onc Scenery [address] [place] [address] 04/04/2023 Office Visit Urology Cm Rhodes MD [address] [address] [place] [address] Health Maintenance Due Date Last [...] this topic documented as of this encounter Implants Implanted Type Area Weigh Machine Operator Device Identifier Shelf Expiration Date Model / Serial / Lot Cath Power Port 6fr Clearvue - [id number] Implanted:Qty : 1 on 08/10/2021 by Alexander Rodriguez MD at [place] [facility] [place] Left: Subclavian CR BARD : PERIPHERAL VASCULAR 08/21/2021 [id number] / / documented as of this encounter Advance Directives Documents on File Type Date Recorded Patient Food Safety Auditor Expl anation Advanced Directive Advanced Directive Advanced Directive Advanced Directive Advanced Directive Advanced Directive Advanced Directive Advanced Directive Advanced Directive Advanced Directive Advanced Directive Advanced Directive Advanced Directive Advanced Directive Advanced Directive Advanced Directive Advanced Directive Advanced Directive Advanced Directive Advanced Directive Advanced Directive Advanced Directive Advanced Directive Advanced Directive Advanced Directive Advanced Directive Advanced Directive Advanced Directive Advanced Directive Advanced Directive Advanced Directive Advanced Directive Advanced Directive Advanced Directive Advanced Directive Advanced Directive Advanced Directive Advanced Directive Advanced Directive Advanced Directive Advanced Directive Advanced Directive Advanced Directive Advanced Directive Advanced Directive Advanced Directive Advanced Directive Advanced Directive Advanced Directive Advanced Directive Advanced Directive Advanced Directive Advanced Directive Advanced Directive Advanced Directive Advanced Directive Advanced Directive Advanced Directive Advanced Directive Advanced Directive Advanced Directive Advanced Directive Advanced Directive Advanced Directive Advanced Directive Advanced Directive Advanced Directive Advanced Directive Advanced Directive Advanced Directive Advanced Directive Advanced Directive Advanced Directive Advanced Directive Advanced Directive Advanced Directive Advanced Directive Advanced Directive Advanced Directive Advanced Directive Advanced Directive Advanced Directive Advanced Directive Advanced Directive Advanced Directive Advanced Directive Advanced Directive Advanced Directive Advanced Directive Advanced Directive Advanced Directive Advanced Directive Advanced Directive Advanced Directive Advanced Directive Advanced Directive Advanced Directive Advanced Directive Advanced Directive Advanced Directive Advanced Directive Advanced Directive Advanced Directive Advanced Directive Advanced Directive Advanced Directive Advanced Directive Advanced Directive Advanced Directive Advanced Directive Advanced Directive Advanced Directive Advanced Directive Advanced Directive Advanced Directive Advanced Directive Advanced Directive Advanced Directive Advanced Directive Advanced Directive Advanced Directive Advanced Directive Advanced Directive Advanced Directive Advanced Directive Advanced Directive Advanced Directive Advanced Directive Advanced Directive Advanced Directive Advanced Directive Advanced Directive Advanced Directive Advanced Directive Advanced Directive Advanced Directive Advanced Directive Advanced Directive 08/10/2021 8:17 AM Advanced Directive 07/15/2021 12:15 PM Advanced Directive 10/25/2011 12:00 AM Advanced Directive 01/03/2011 12:00 AM Latest Code Status on File Code Status Date Activated Date Inactivated Comments Full Code 08/10/2021 9:14 AM 08/10/2021 5:32 PM Discussion of Advance Directives occurred with: Not Discussed Full Code 10/30/2011 12:44 PM 10/31/2011 3:48 PM This order reflects the patients wishes and were consensually agreed upon. Full Code 01/05/2011 11:28 AM 01/05/2011 11:38 PM Thi s order reflects the patients wishes and were consensually agreed upon. Care Teams Watermelon Harvesting Supervisor Relationship Specialty Start Date End Date Hortencia Leal PA-C [address] [facility] [address] PCP - General Physician Electrical Linesworker 02/08/18 documented as of this encounter
--- OUTSIDE RECORDS SUMMARY | 2023-06-27 07:46 | External Medical Summary ---
Author Name Unknown Address Unknown Organization K01:LABORATORY [facility] [place] - [address] [place] [address] Laboratory Report Ordering Provider Test Date Status ABBIE MACIAS 07/11/2022 13:19:00 Final Observation Date Value Abnormality Reference (Units ) Status MYCODE SPECIMEN-SST 07/11/2022 13:19:00 Freezing of extracted DNA, whole blood and/or serum. Final Performing Location LABORATORY [facility] [place] - [address] [place] [address]
--- OUTSIDE RECORDS SUMMARY | 2023-06-27 07:46 | External Medical Summary | Summary of Care ---
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) Procedures PET CT SKULL BASE TO MID-THIGH Nik Melo MD [address] [place] [address] Referral ID Status Reason Start Date Expiration Date V isits Requested Visits Authorized [id number] Authorized Precert 10/26/2021 10/27/[phone] Encounter Details Date Type Department Care Team Description 07/11/2022 Laboratory Laboratory [address] [id number] [place] [address] 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 documented as of this encounter (statuses as of 07/11/2022) Immunizations Name Administration Dates Next Due COVID-19 [...] Encounters Date Type Specialty Care Team Description 07/12/2022 Hem/Onc Treatment Hematology Oncology [place], Chair [address] [place] [address] 09/26/2022 Laboratory Laboratory [address] [place] [address] 09/27/2022 Office Visit Hematology Oncology Nik Melo MD 200 [place] [address] 04/04/2023 Office Visit Urology Cm Rhodes MD [address] [place] [address] [place] [address] Pending Results Name Type Priority Associated Diagnoses Date /Time COMPREHENSIVE METABOLIC PANEL Lab STAT 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) 07/11/2022 1:19 PM EDT TSH WITH FREE T4 IF INDICATED Lab STAT 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) Encounter for long-term (current) use of medications 07/11/2022 1:19 PM EDT MYCODE SUBSEQUENT ADULT Lab Routine [employer] Other*[id number] 07/11/2022 1:19 PM EDT MYCODE SST1 Lab Routine [employer] Other*[id number] 07/11/2022 1:19 PM EDT MYCODE SST2 Lab Routine [employer] Other*[id number] 07/11/2022 1:19 PM EDT Health Maintenance Due Date Last Done Comments Pneumococcal Vaccine: 65+ Years (1 - PCV) 12/29/1951 Depression Screening, Annual for Pts 12 and Over 1957 Hepatitis C Screening 12/29/1963 DTaP,Tdap,and Td Vaccines (1 - Tdap) 1964 Zoster Vaccines (1 of 2) 1964 COVID-19 Vaccine (4 - Booster for Moderna series) 12/24/2021 10/01/2021, 02/14/2021, 01/17/2021 Influenza Vaccine (FLU shot) (#1) 2022 07/30/2021 COLONOSCOPY-EVERY 3 YRS AGES 18-100 07/15/2024 07/15/2021, [...] of this encounter Implants Implanted Type Area Customer Engineering Specialist Device Identifier Shelf Expiration Date Model / Serial / Lot Cath Power Port 6fr Clearvue - [id number] Implanted:Qty : 1 on 08/10/2021 [place] [facility] [place] Subclavian CR BARD : PERIPHERAL VASCULAR 08/21/2021 [id number] / / documented as of this encounter Procedures Procedure Name Priority Date/Time Associated Diagnosis Comments DIFFERENTIAL, AUTOMATED STAT 07/11/2022 1:19 PM EDT 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) CBC WITH WBC DIFFERENTIAL STAT 07/11/2022 1:19 PM EDT 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) CBC STAT 07/11/2022 1:19 PM EDT 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) documented in this encounter Results * DIFFERENTIAL, AUTOMATED (07/11/2022 1:19 PM EDT) WBC 6.49 4.00 - 10.80 K/uL [facility] 56-02 Neutrophils % 67.8 40.0 - 75.0 % LABORATORY [facility] 56- Lymphocytes % 21.7 18.0 - 42.0 % LAB[facility]ATORY [facility] 56-02 Monocytes % 7.6 1.0 - 11.0 % LAB[facility]ATORY [facility] 56- Eosinophils % 2.6 0.0 - 6.0 % LAB[facility]ATORY [facility] 56- Basophils % 0.3 0.0 - 2.0 % LAB[facility]ATORY [facility] 56- Absolute Neutrophils 4.40 1.80 - 7.70 K/uL [facility]- Absolute Lymphocytes 1.41 1.00 - 4.80 K/ul [facility] 56-02 Absolute Monocytes 0.49 0.00 - 1.10 K/uL [facility] 56-02 Absolute Eosinophils 0.17 0.00 - 0.70 K/uL [facility] 56-02 Absolute Basophils 0.02 0.00 - 0.20 K/uL [facility] 56-02 Specimen Blood - Venous blood specime n (specimen) [facility] 56- [address] [place], [place] [id number] * (ABNORMAL) CBC (07/11/2022 1:19 PM EDT) WBC 6.49 4.00 - 10.80 K/uL [facility] 56-02 RBC 4.23 4.50 - 5.25 M/uL [facility] 56-02 HGB 13.4(L) 14.0 - 16.8 g/dL [facility] 56-02 HCT 40.5 40.0 - 48.4 % LAB[facility]ATORY [facility] 56-02 MCV 95.7 82.0 - 99.5 fL LAB[facility]ATORY [facility] 56- MCH 31.7 27.0 - 34.0 pg [facility] 56- MCHC 33.1 32.0 - 36.0 g/dL LAB[facility] [place] 56- RDW 14.7 11.5 - 15.5 % [facility]ORY [facility] 56- PLT 121(L) 140 - 400 K/uL LAB[facility] 56- MPV 9.1 6.6 - 11.1 fL [facility]ORY [facility] 56- Specimen Blood - Venous blood specime n (specimen) Performing Organization Address City/[facility] Co de Phone Number LABORATORY [place] 56- [address] [place], [place] [phone] documented in this encounter Visit Diagnoses Diagnosis 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 Care Teams Primary Health Care Nurse Relationship Specialty Start Date End Date Hortencia Leal PA-C [address] [facility] [address] PCP - General Physician Millinery Teacher 02/08/18 documented as of this encounter
--- OUTSIDE RECORDS SUMMARY | 2023-06-27 07:46 | External Medical Summary ---
Author Name Unknown Address Unknown Organization K09:[facility] [place] [address] Laboratory Report Ordering Provider Test Date Status SHAY CH 07/11/2022 13:19:00 Final Observation Date Value Abnormality Reference (Units ) Status BUN 07/11/2022 13:19:00 29 Above high normal 6-20 (mg/dL) Final Creatinine 07/11/2022 13:19:00 1.9 Above high normal 0.6-1.2 (mg/dL) Final Glomerular filtration rate/1.73 sq M.predicted [Volume Rate/Area] in Serum, Plasma or Blood by Creatinine-based formula (CKD-EPI) 07/11/2022 13:19:00 35 Below low normal >=60 (mL/min) Final Performing Location [facility] [place] [address]
--- OUTSIDE RECORDS SUMMARY | 2023-06-27 07:46 | External Medical Summary | Summary of Care ---
Author Name Unknown Organization [place] [address] Care Team Providers Care Store Facility Technician Name Role Phone Hortencia Leal PA-C Primary Care Provid er Encounter Details Date Type Department Care Team Description 07/12/2022 Orders Only Hematology/Oncology [facility] 200 [place] [address] Nik Melo MD 200 [place] [address] Allergies Active Allergy Reactions Severity Noted Date Comments Amlodipine 11/02/2020 dizziness Codeine Sulfate Other (Please comment) 10/26/19 11 hyperactivity Hydrochlorothiazide 11/02/2020 hypercalcemia Oxaliplatin 02/09/2022 Infusion related reaction documented as of this encounter (statuses as of 07/12/2022) Medications Medication Sig Dispensed Refills Start Date [...] times a day. 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 documented as of this encounter (statuses as of 07/12/2022) Immunizations Name Administration Dates Next Due COVID-19 [...] Specialty Care Team Description 08/08/2022 Laboratory Laboratory [place], Lab Scenery [address] [place] [address] 08/09/2022 Hem/Onc Treatment Hematology Oncology 09/05/2022 Laboratory Laboratory [facility] Lab [facility] 200 [facility] [place] [address] 09/06/2022 Hem/Onc Treatment Hematology Oncology [place], Chair 8 Hem Onc [facility] 200 [facility] [place] [address] 10/03/2022 Laboratory Laboratory [place], Lab Scenery 200 [facility] [place] [address] 10/04/2022 Office Visit Hematology Oncology Nik Melo MD 200 [place] [address] 10/04/2022 Hem/Onc Treatment Hematology Oncology [place], Chair 6 Hem Onc Scenery 200 [facility] [place] [address] 04/04/2023 Office Visit Urology Cm Rhodes MD [address] [place] [address] Health Maintenance Due Date Last Done [...] of this encounter Implants Implanted Type Area Asphalt Paving Machine Operator Device Identifier Shelf Expiration Date Model / Serial / Lot Cath Power Port 6fr Clearvue - [id number] Implanted:Qty : 1 on 08/10/2021 by Alexander Rodriguez MD at [place] [facility] [place] Left: Subclavian CR BARD : PERIPHERAL VASCULAR 08/21/2021 [id number] / / documented as of this encounter Advance Directives Documents on File Type Date Recorded Patient Twisting Machine Operator Expl 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 Care Teams Store Facility Technician Relationship Specialty Start Date End Date Hortencia Leal PA-C [address] [facility] [address] PCP - General Physician Machine Joiner Cementer 02/08/18 documented as of this encounter
--- OUTSIDE RECORDS SUMMARY | 2023-06-27 07:46 | External Medical Summary | Summary of Care ---
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) Procedures [place] INJECTION, NIVOLUMAB Nik Melo MD 200 [place] [address] Anc Hem/Onc [address] [place] [place] [address] Referral ID Status Reason Start Date Expiration Date V isits Requested Visits Authorized [id number] Pending Review 02/09/2022 10/21/2099 99 99 Encounter Details Date Type Department Care Team Description 07/12/2022 Hem/Onc Treatment Hematology/Oncology Treatment, [place] 200 [facility] [place] [address] Maddy, Chair 3 Hem Onc [address] [place] [address] 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 As needed 0 Active [place]-3 Fatty Acids (FISH OIL) 1000 MG Capsule [...] Sign Reading Time Taken Comments Blood Pressure 148/91 07/12/2022 11:01 AM EDT Pulse 66 07/12/2022 11:01 AM EDT Temperature 36.5 C (97.7 F) 07/12/2022 11:01 AM E DT Respiratory Rate 16 07/12/2022 11:01 AM EDT Oxygen Saturation - - Inhaled Oxygen Concentration - - Weight - - Height - - Body Mass Index - - documented in this encounter Nursing Notes * Lakeisha Cortez RN - 07/12/2022 12:59 PM EDT Functional status at today's visit: [...] injury. Possible barriers to meeting goals: possible fall risk Stability of the patient: Moderately stable - low risk of patient condition declining or worsening Summary regarding today's goals: Met: pt remained free from injury Coverage by Maricruz Stevens RN * Lakeisha Cortez RN - 07/12/2022 11:04 AM EDT Chair 8 Chemo agents C6D1 Opdivo Appetite "Good" Nausea/Vomiting none Diarrhea none Constipation none Mucositis none Fatigue energy is good Bleeding none Infection none Rash none Numbness tingling none Pain none Radiation none ABN Labs elevated kidney function, reviewed with Dr Melo. No change to tx plan. Pt states he is not drinking much water, he will increase PO intake at home. Alt in Tx: none Return in 4 weeks Safety and Risk for Injury Patient will remain free from injury. Ensure appropriate safety devices are available. Provide and maintain safe environment. documented in this encounter Plan of Treatment Upcoming Encounters Date Type Specialty Care Team Description 08/08/2022 Laboratory Laboratory [place], Lab Scenery 200 [facility] [place] [address] 08/09/2022 Hem/Onc Treatment Hematology Oncology 09/05/2022 Laboratory Laboratory [place], Lab Scenery 200 [facility] [place] [address] 09/06/2022 Hem/Onc Treatment Hematology Oncology [place], Chair 8 Hem Onc Scenery 200 [facility] [place] [address] 10/03/2022 Laboratory Laboratory [place], Lab Scenery 200 [facility] [place] [address] 10/04/2022 Office Visit Hematology Oncology Nik Melo MD 200 [facility] [place] [address] 10/04/2022 Hem/Onc Treatment Hematology Oncology [place], Chair 6 Hem Onc Scenery [address] [place] [address] 04/04/2023 Office Visit Urology Cm Rhodes MD 27 [facility] [address] [place] [address] Health Maintenance Due Date Last Done [...] of this encounter Implants Implanted Type Area Cow Puncher Device Identifier Shelf Expiration Date Model / Serial / Lot Cath Power Port 6fr Clearvue - [id number] Implanted:Qty : 1 on 08/10/2021 by Alexander Rodriguez MD at OR [facility] Left: Subclavian CR BARD : PERIPHERAL VASCULAR 08/21/2021 [id number] / / documented as of this encounter [...] ONCE PRN Other, Hypersensitivity Reaction, Starting on Sun07/12/22 at 1058, Until Chandrika 07/13/22 at 1057, For 24 hours EPINEPHrine 1 MG/ML inj 0.3 mg 0.3 mg, Intramuscular, ONCE PRN Other, Hypersensitivity Reaction or Anaphylaxis, Starting on Sun07/12/22 at 1058, Until Chandrika 07/13/22 at 1057, For 24 hours hEParin 100 UNIT/ML Lock Flush inj 500 Units 500 Units (5 mL), IV Lock, PRN Other, IV Flush, Starting on Sun07/12/22 at 1058, Until Chandrika 07/13/22 at 1057, For 24 hours, Do not flush if lock, PICC, or central line not in place; IV infusing or unable to flush. Given 07/12/2022 12:10 PM EDT 500 Units Hydrocortisone Na Succinate PF (Solu-Cortef) inj 100 mg 100 mg, IV Push, ONCE PRN Other, Hypersensitivity Reaction, Starting on Sun07/12/22 at 1058, Until Chandrika 07/13/22 at 1057, For 24 hours NSS infusion 500 mL, Intravenous, at 50 mL/hr, CONTINUOUS, Starting on Sun07/12/22 at 1200, Until Sun07/12/22 at 2159 Start Infusion 07/12/2022 11:15 AM EDT 500 mL 50 mL/hr sodium chloride 0.9 % flush/inj 10 mL 10 mL, IV Push, PRN Other, IV Flush, Starting on Sun07/12/22 at 1058, Until Chandrika 07/13/22 at 1057, For 24 hours, Do not flush if lock, PICC, or central line not in place; IV infusing or unable to flush. Given 07/12/2022 12:10 PM EDT 10 mL Inactive Administered Medications - up to 3 most recent administrations Medication Order MAR Action Action Date Dose Rate Site Nivolumab (Opdivo) 480 mg in NSS 100 mL ivpb 480 mg, IV Piggyback, at 200 mL/hr Administer over 30 Minutes, DO NOT SHAKE Final concentration should be between 1 and 10 mg/ml Use a sterile, non-pyrogenic, low-protein binding in-line filter (0.2 micrometer-1.2 micrometer), ONCE, 1 dose, On Sun07/12/22 at 1145 Start Infusion 07/12/2022 11:31 AM EDT 480 mg 200 mL/hr documented in this encounter Advance Directives Documents on File Type Date Recorded Patient Nuclear Medicine Pet Ct Technologist Expl 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 Care Teams Sponsorship Coordinator Relationship Specialty Start Date End Date Hortencia Leal PA-C [address] [place] [address] PCP - General Physician Warehouse Team Member 02/08/18 documented as of this encounter
--- OUTSIDE RECORDS SUMMARY | 2023-06-27 07:46 | External Medical Summary | Summary of Care ---
Author Name Unknown Organization [place] [address] Care Team Providers Care Interior Decorator Painting Name Role Phone Hortencia Leal PA-C Primary Care Provid er Encounter Details Date Type Department Care Team Description 09/03/2022 Orders Only Hematology/Oncology [facility] 200 [place] [address] Nik Melo MD 200 [place] [address] Allergies Active Allergy Reactions Severity Noted Date Comments Amlodipine 11/02/2020 dizziness Codeine Sulfate Other (Please comment) 10/26/19 11 hyperactivity Hydrochlorothiazide 11/02/2020 hypercalcemia Oxaliplatin 02/09/2022 Infusion related reaction documented as of this encounter (statuses as of 09/03/2022) Medications Medication Sig Dispensed Refills Start Date [...] times a day. 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 documented as of this encounter (statuses as of 09/03/2022) Immunizations Name Administration Dates Next Due COVID-19 [...] Encounters Date Type Specialty Care Team Description 09/05/2022 Laboratory Laboratory [place], Lab [facility] 200 [facility] [address] 09/06/2022 Hem/Onc Treatment Hematology Oncology [place], Chair 8 Hem Onc [facility] 200 [place] [address] 10/03/2022 Laboratory Laboratory [facility] 200 [place] [address] 10/04/2022 Office Visit Hematology Oncology Nik Melo MD 200 [place] [address] 10/04/2022 Hem/Onc Treatment Hematology Oncology [place], Chair 6 Hem Onc [facility] 200 [facility] [place] [address] 04/04/2023 Office Visit Urology Cm Rhodes MD [address] [place] [address] [place] [address] Health Maintenance Due Date Last Done [...] this encounter Medical Devices Implanted Type Area Commodity Director Device Identifier Shelf Expiration Date Model / Serial / Lot Cath Power Port 6fr Clearvue - [id number] Implanted:Qty : 1 on 08/10/2021 by Alexander Rodriguez MD at OR [facility] Left: Subclavian CR BARD : PERIPHERAL VASCULAR 08/21/2021 [id number] / / documented as of this encounter [...] and were consensually agreed upon. Care Teams Interior Decorator Painting Relationship Specialty Start Date End Date Hortencia Leal PA-C [address] [place] [address] PCP - General Physician Licensing Registration Examiner 02/08/18 documented as of this encounter
--- OUTSIDE RECORDS SUMMARY | 2023-06-27 07:46 | External Medical Summary ---
Author Name Unknown Address Unknown Organization K09:[facility] [place] [address] Laboratory Report Ordering Provider Test Date Status SHAY CH 07/11/2022 13:19:00 Final Observation Date Value Abnormality Reference (Units ) Status SYNC LEUKOCYTES IN BLOOD BY AUTOMATED COUNT 07/11/2022 13:19:00 6.49 4.00-10.80 (K/uL) Final Segs 07/11/2022 13:19:00 67.8 40.0-75.0 (%) Final Lymphs % 07/11/2022 13:19:00 21.7 18.0-42.0 (%) Final Monos 07/11/2022 13:19:00 7.6 1.0-11.0 (%) Final Eosinophils 07/11/2022 13:19:00 2.6 0.0-6.0 (%) Final Basos 07/11/2022 13:19:00 0.3 0.0-2.0 (%) Final Absolute Segs 07/11/2022 13:19:00 4.40 1.80-7.70 (K/uL) Final Lymphs, absolute 07/11/2022 13:19:00 1.41 1.00-4.80 (K/ul) Final Monos, Abs 07/11/2022 13:19:00 0.49 0.00-1.10 (K/uL) Final Eos, Abs 07/11/2022 13:19:00 0.17 0.00-0.70 (K/uL) Final Basos, Abs 07/11/2022 13:19:00 0.02 0.00-0.20 (K/uL) Final Performing Location [facility] [place] [address]
--- OUTSIDE RECORDS SUMMARY | 2023-06-27 07:46 | External Medical Summary | Summary of Care ---
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) Procedures PET CT SKULL BASE TO MID-THIGH Nik Melo MD 200 [place] [address] Referral ID Status Reason Start Date Expiration Date V isits Requested Visits Authorized [id number] Authorized Precert 10/26/2021 10/27/2022 999 999 Encounter Details Date Type Department Care Team Description 08/09/2022 Hem/Onc Treatment Hematology/Oncology Treatment, [address] [place] [id number] 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 documented as of this encounter (statuses as of 08/09/2022) Immunizations Name Administration Dates Next Due COVID-19 [...] Sign Reading Time Taken Comments Blood Pressure 143/85 08/09/2022 11:30 AM EDT Pulse 74 08/09/2022 11:30 AM EDT Temperature 36 C (96.8 F) 08/09/2022 11: 30 AM EDT Respiratory Rate 18 08/09/2022 11:3 0 AM EDT Oxygen Saturation 95% 08/09/2022 11: 30 AM EDT Inhaled Oxygen Concentration - - Weight 84.7 kg (186 lb 12.8 oz) 022 11:30 AM EDT Height - - Body Mass Index 32.06 08/10/2021 8:15 AM EDT documented in this encounter Nursing Notes * Paty Langford RN - 08/09/2022 2:32 PM EDT Chair 7. Port accessed without difficulty. Patient overall feeling well today upon assessment, states his appetite has come back and is much better lately. Chemo agents Opdivo Appetite good/improved Nausea/Vomiting no Diarrhea no Constipation no Mucositis no Fatigue no Bleeding no Infection no Rash no Numbness tingling no Pain no Radiation no ABN Labs WNL for tx, at baseline for pt Alt in Tx: N/A Return in 3 weeks Safety and Risk for Injury Patient will remain free from injury. Ensure appropriate safety devices are available. Provide and maintain safe environment. Goals: Patient will remain free from injury. Possible barriers to meeting goals: ambulating with IV pole, age Stability of the patient: Moderately stable - low risk of patient condition declining or worsening Summary regarding today's goals: Met: Patient remained free of harm today Functional status at today's visit: Fully active, able to carry on all pre-disease performance without restriction The drug name, dose, infusion volume, rate [...] Specialty Care Team Description 09/05/2022 Laboratory Laboratory [place], Lab [address] [address] 09/06/2022 Hem/Onc Treatment Hematology Oncology [place], Chair 8 Hem Onc [address] [address] 10/03/2022 Laboratory Laboratory [facility] [address] 10/04/2022 Office Visit Hematology Oncology Nik Melo MD 200 [place] [address] 10/04/2022 Hem/Onc Treatment Hematology Oncology [place], Chair 6 Hem Onc [address] [address] 04/04/2023 Office Visit Urology Cm Rhodes MD [address] [place] [address] Health Maintenance Due Date Last Done [...] of this encounter Implants Implanted Type Area Advisor Consultant Device Identifier Shelf Expiration Date Model / Serial / Lot Cath Power Port 6fr Clearvue - [id number] Implanted:Qty : 1 on 08/10/2021 by Alexander Rodriguez MD at [facility] Left: Subclavian CR BARD : PERIPHERAL VASCULAR 08/21/2021 [id number] / / documented as of this encounter [...] ONCE PRN Other, Hypersensitivity Reaction, Starting on Sun08/09/22 at 1144, Until Chandrika 08/10/22 at 1143, For 24 hours EPINEPHrine 1 MG/ML inj 0.3 mg 0.3 mg, Intramuscular, ONCE PRN Other, Hypersensitivity Reaction or Anaphylaxis, Starting on Sun08/09/22 at 1144, Until Chandrika 08/10/22 at 1143, For 24 hours hEParin 100 UNIT/ML Lock Flush inj 500 Units 500 Units (5 mL), IV Lock, PRN Other, IV Flush, Starting on Sun08/09/22 at 1144, Until Chandrika 08/10/22 at 1143, For 24 hours, Do not flush if lock, PICC, or central line not in place; IV infusing or unable to flush. Given 08/09/2022 12:46 PM EDT 500 Units Hydrocortisone Na Succinate PF (Solu-Cortef) inj 100 mg 100 mg, IV Push, ONCE PRN Other, Hypersensitivity Reaction, Starting on Sun08/09/22 at 1144, Until Chandrika 08/10/22 at 1143, For 24 hours NSS infusion 500 mL, Intravenous, at 50 mL/hr, CONTINUOUS, Starting on Sun08/09/22 at 1245, Until Sun08/09/22 at 2244 Start Infusion 08/09/2022 11:45 AM EDT 500 mL 50 mL/hr sodium chloride 0.9 % flush/inj 10 mL 10 mL, IV Push, PRN Other, IV Flush, Starting on Sun08/09/22 at 1144, Until Chandrika 08/10/22 at 1143, For 24 hours, Do not flush if lock, PICC, or central line not in place; IV infusing or unable to flush. Given 08/09/2022 12:46 PM EDT 10 mL Inactive Administered Medications - up to 3 most recent administrations Medication Order MAR Action Action Date Dose Rate Site Nivolumab (Opdivo) 480 mg in NSS 100 mL ivpb 480 mg, IV Piggyback, ONCE, 1 dose, On Sun08/09/22 at 1315, Administer over 30 Minutes, DO NOT SHAKE Final concentration should be between 1 and 10 mg/ml Use a sterile, non-pyrogenic, low-protein binding in-line filter (0.2 micrometer-1.2 micrometer) Start Infusion 08/09/2022 12:11 PM EDT 480 mg 200 mL/hr documented in this encounter Advance Directives Documents on File Type Date Recorded Patient Emergency Service Restorer Expl 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 Care Teams Seedling Sorter Relationship Specialty Start Date End Date Hortencia Leal PA-C [address] [place] [address] PCP - General Physician Chipper Machine Operator 02/08/18 documented as of this encounter
--- OUTSIDE RECORDS SUMMARY | 2023-06-27 07:46 | External Medical Summary | Summary of Care ---
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) Procedures PET CT SKULL BASE TO MID-THIGH Nik Melo MD 200 [place] [address] Referral ID Status Reason Start Date Expiration Date V isits Requested Visits Authorized [id number] Authorized Precert 10/26/2021 10/27/[phone] Encounter Details Date Type Department Care Team Description 08/08/2022 Laboratory Laboratory [address] [id number] [place] [address] 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 documented as of this encounter (statuses as of 08/08/2022) Immunizations Name Administration Dates Next Due COVID-19 [...] Encounters Date Type Specialty Care Team Description 08/09/2022 Hem/Onc Treatment Hematology Oncology 09/05/2022 Laboratory Laboratory [place], Lab Scenery [address] [place] [address] 09/06/2022 Hem/Onc Treatment Hematology Oncology [place], Chair 8 Hem Onc Scenery [address] [place] [address] 10/03/2022 Laboratory Laboratory [place], Lab Scenery [address] [place], [place] [address] 10/04/2022 Office Visit Hematology Oncology Nik Melo MD [address] [place] [address] 10/04/2022 Hem/Onc Treatment Hematology Oncology [place], Chair 6 Hem Onc Scenery [address] [place] [address] 04/04/2023 Office Visit Urology Cm Rhodes MD [address] [facility] [address] [place] [address] Pending Results Name Type Priority Associated Diagnoses Date /Time COMPREHENSIVE METABOLIC PANEL Lab STAT 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) 08/08/2022 11:19 AM EDT TSH WITH FREE T4 IF INDICATED Lab STAT 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) Encounter for long-term (current) use of medications 08/08/2022 11:19 AM EDT Health Maintenance Due Date Last [...] of this encounter Implants Implanted Type Area Access Lead Device Identifier Shelf Expiration Date Model / Serial / Lot Cath Power Port 6fr Clearvue - [id number] Implanted:Qty : 1 on 08/10/2021 by Alexander Rodriguez MD at OR [facility] Left: Subclavian CR BARD : PERIPHERAL VASCULAR 08/21/2021 [id number] / / documented as of this encounter Procedures Procedure Name Priority Date/Time Associated Diagnosis Comments DIFFERENTIAL, AUTOMATED STAT 08/08/2022 11:19 AM EDT 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 56- Eosinophils % 4.7 0.0 - 6.0 % LAB[facility]ORY [facility] 56-02 Basophils % 0.2 0.0 - 2.0 % LABORATORY STAT E [facility] 56- Absolute Neutrophils 3.24 1.80 - 7.70 K/uL LAB ORATORY [place] 56-02 Absolute Lymphocytes 1.35 1.00 - 4.80 K/ul [facility] Absolute Monocytes 0.50 0.00 - 1.10 K/uL [facility] 56- Absolute Eosinophils 0.25 0.00 - 0.70 K/uL [facility]-02 Absolute Basophils 0.01 0.00 - 0.20 K/uL [facility] 56-02 Specimen Blood - Venous blood specime n (specimen) [facility] 56-[address] [place] [address] * (ABNORMAL) CBC (08/08/2022 11:19 AM EDT) WBC 5.35 4.00 - 10.80 K/uL [facility] 56-02 RBC 4.17 4.50 - 5.25 M/uL [facility] 56-02 HGB 13.2(L) 14.0 - 16.8 g/dL [facility] 56-02 HCT 40.9 40.0 - 48.4 % [facility] 56- MCV 98.1 82.0 - 99.5 fL LAB[facility] 56- MCH 31.7 27.0 - 34.0 pg LABORATORY [facility] - MCHC 32.3 32.0 - 36.0 g/dL LABORATORY [place] 56- RDW 14.9 11.5 - 15.5 % [facility] 56- PLT 113(L) 140 - 400 K/uL [facility] 56- MPV 8.6 6.6 - 11.1 fL [facility] - Specimen Blood - Venous blood specime n (specimen) Performing Organization Address City/State/[facility] Co de Phone Number [facility] [place] [address] [address] [place] [address] documented in this encounter Visit Diagnoses Diagnosis 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 Care Teams Hotel Recreational Facilities Manager Relationship Specialty Start Date End Date Hortencia Leal PA-C [address] [facility] [id number] PCP - General Physician Human Resources Team Member 02/08/18 documented as of this encounter
--- OUTSIDE RECORDS SUMMARY | 2023-06-27 07:46 | External Medical Summary ---
Author Name Unknown Address Unknown Organization [id number]:[facility] [place] [address] Laboratory Report Ordering Provider Test Date Status SHAY CH 08/08/2022 11:19:07 Final Observation Date Value Abnormality Reference (Units ) Status SYNC LEUKOCYTES IN BLOOD BY AUTOMATED COUNT 08/08/2022 11:19:07 5.35 4.00-10.80 (K/uL) Final Segs 08/08/2022 11:19:07 60.6 40.0-75.0 (%) Final Lymphs % 08/08/2022 11:19:07 25.2 18.0-42.0 (%) Final Monos 08/08/2022 11:19:07 9.3 1.0-11.0 (%) Final Eosinophils 08/08/2022 11:19:07 4.7 0.0-6.0 (%) Final Basos 08/08/2022 11:19:07 0.2 0.0-2.0 (%) Final Absolute Segs 08/08/2022 11:19:07 3.24 1.80-7.70 (K/uL) Final Lymphs, absolute 08/08/2022 11:19:07 1.35 1.00-4.80 (K/ul) Final Monos, Abs 08/08/2022 11:19:07 0.50 0.00-1.10 (K/uL) Final Eos, Abs 08/08/2022 11:19:07 0.25 0.00-0.70 (K/uL) Final Basos, Abs 08/08/2022 11:19:07 0.01 0.00-0.20 (K/uL) Final Performing Location [facility] [place] [address]
--- OUTSIDE RECORDS SUMMARY | 2023-06-27 07:46 | External Medical Summary ---
Author Name Unknown Address Unknown Organization [id number]:[facility] [place] [address] [place] [address] Laboratory Report Ordering Provider Test Date Status ABBIE MACIAS 07/11/2022 13:19:00 Final Observation Date Value Abnormality Reference (Units ) Status MYCODE SPECIMEN-SST 07/11/2022 13:19:00 Freezing of extracted DNA, whole blood and/or serum. Final Performing Location [facility] [place] [address] [place] [address]
--- OUTSIDE RECORDS SUMMARY | 2023-06-27 07:46 | External Medical Summary ---
Author Name Unknown Address Unknown Organization K09:[facility] [place] [address] Laboratory Report Ordering Provider Test Date Status SHAY CH 08/08/2022 11:19:07 Final Observation Date Value Abnormality Reference (Units ) Status BUN 08/08/2022 11:19:07 27 Above high normal 6-20 (mg/dL) Final Creatinine 08/08/2022 11:19:07 1.8 Above high normal 0.6-1.2 (mg/dL) Final Glomerular filtration rate/1.73 sq M.predicted [Volume Rate/Area] in Serum, Plasma or Blood by Creatinine-based formula (CKD-EPI) 08/08/2022 11:19:07 38 Below low normal >=60 (mL/min) Final Performing Location [facility] [place] [place] [address]
--- OUTSIDE RECORDS SUMMARY | 2023-06-27 07:47 | External Medical Summary | Summary of Care ---
Author Name Unknown Organization [place] [address] Care Team Providers Care Manager Combination Name Role Phone Hortencia Leal PA-C Primary Care Provid er Reason for Visit * Reason Onset Date Comments Test Results Imaging Study 06/07/2022 Encounter Details Date Type Department Care Team Description 06/07/2022 Telephone [facility]ematology[facility] [place] [facility] [address] Nik Melo MD [address] [place] [address] Test Results Imaging Study Allergies Active Allergy Reactions Severity Noted Date Comments Amlodipine 11/02/2020 dizziness Codeine Sulfate Other (Please comment) 10/26/19 11 hyperactivity Hydrochlorothiazide 11/02/2020 hypercalcemia Oxaliplatin 02/09/2022 Infusion related reaction documented as of this encounter (statuses as of 06/07/2022) Medications Medication Sig Dispensed Refills Start Date [...] times a day. 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 documented in this encounter Plan of Treatment Upcoming Encounters Date Type Specialty Care Team Description 06/13/2022 Laboratory Laboratory [facility] 200 [place] [address] 06/14/2022 Office Visit Hematology Oncology Nik Melo MD 200 [place] [address] 06/14/2022 Hem/Onc Treatment Hematology Oncology 04/04/2023 Office Visit Urology Cm Rhodes MD [address] [place] [address] Health Maintenance Due Date Last Done [...] of this encounter Implants Implanted Type Area Homicide Squad Captain Device Identifier Shelf Expiration Date Model / Serial / Lot Cath Power Port 6fr Clearvue - [id number] Implanted:Qty : 1 on 08/10/2021 by Alexander Rodriguez MD at [place] [facility] [place] Left: Subclavian CR BARD : PERIPHERAL VASCULAR 08/21/2021 [id number] / / documented as of this encounter Advance Directives Documents on File Type Date Recorded Patient Change Of Address Clerk Expl anation Advanced Directive Advanced Directive Advanced [...] were consensually agreed upon. Care Teams Manager Combination Relationship Specialty Start Date End Date Hortencia Leal PA-C [address] [facility] [address] P[facility] - General Physician Housekeeping Aid 02/08/18 documented as of this encounter
--- OUTSIDE RECORDS SUMMARY | 2023-06-27 07:47 | External Medical Summary | Summary of Care ---
Author Name Unknown Organization [place] [address] Care Team Providers Care Targeteer Name Role Phone Hortencia Leal PA-C Primary Care Provid er Reason for Visit * Reason Comments Outpatient Testing * Evaluate & Treat - Unlimited Visits (Within 30 days (routine)) - Authorized Specialty Diagnoses / Procedures Referred By Lizzie reno Referred To Contact Hematology Oncology Diagnoses Adenocarcinoma esophagus Procedures Eval and treat Hortencia Leal PA-C [address] [facility] [place] [address] Referral ID Status Reason Start Date Expiration Date Visits Requested Visits Authorized [id number] Authorized Specialty Services Required 10/26/2021 10/27/[phone] Encounter Details Date Type Department Care Team Description 06/13/2022 Laboratory Laboratory [facility] [place] [address] [place] [id number] Enrique Castañeda [address] [facility] [place] [address] 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 documented as of this encounter (statuses as of 06/13/2022) Immunizations Name Administration Dates Next Due COVID-19 [...] Encounters Date Type Specialty Care Team Description 06/14/2022 Office Visit Hematology Oncology Nik Melo MD 200 [place] [address] 06/14/2022 Hem/Onc Treatment Hematology Oncology 04/04/2023 Office Visit Urology Cm Rhodes MD [address] [address] Pending Results Name Type Priority Associated Diagnoses Date /Time COMPREHENSIVE METABOLIC PANEL Lab STAT 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) 06/13/2022 10:19 AM EDT TSH WITH FREE T4 IF INDICATED Lab STAT 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) Encounter for long-term (current) use of medications 06/13/2022 10:19 AM EDT Health Maintenance Due Date Last [...] of this encounter Implants Implanted Type Area Shear Helper Device Identifier Shelf Expiration Date Model / Serial / Lot Cath Power Port 6fr Clearvue - [id number] Implanted:Qty : 1 on 08/10/2021 by Alexander Rodriguez MD at [facility] Left: Subclavian CR BARD : PERIPHERAL VASCULAR 08/21/2021 [id number] / / documented as of this encounter Procedures Procedure Name Priority Date/Time Associated Diagnosis Comments DIFFERENTIAL, AUTOMATED STAT 06/13/2022 10:19 AM EDT 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) CBC WITH WBC DIFFERENTIAL STAT 06/13/2022 10:19 AM EDT 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80 - 7.70 K/uL [address] Absolute Lymphocytes 1.17 1.00 - 4.80 K/ul [address] Absolute Monocytes 0.54 0.00 - 1.10 K/uL [address] Absolute Eosinophils 0.20 0.00 - 0.70 K/uL [address] Absolute Basophils 0.02 0.00 - 0.20 K/uL [address] Specimen Blood - Venous blood specime n (specimen) [address] 200 [place] [address] * (ABNORMAL) CBC (06/13/2022 10:19 AM EDT) WBC 4.61 4.00 - 10.80 K/uL [address] RBC 3.89 4.50 - 5.25 M/uL [place] [address] HGB 12.3(L) 14.0 - 16.8 g/dL [address] HCT 38.1(L) 40.0 - 48.4 % [address] MCV 97.9 82.0 - 99.[address] MCH 31.6 27.0 - 34.0 pg [facility] MCHC 32.3 32.0 - 36.0 g/dL [address] RDW 14.7 11.5 - 15.5 % [place] [address]- PLT 95(L) 140 - 400 K/uL [place] [address]- MPV 8.7 6.6 - 11.[address] Specimen Blood - Venous blood specime n (specimen) Performing Organization Address City/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 Care Teams Targeteer Relationship Specialty Start Date End Date Hortencia Leal PA-C [address] [facility] [place] [address] PCP - General Physician Planer Operator / Grader 02/08/18 documented as of this encounter
--- OUTSIDE RECORDS SUMMARY | 2023-06-27 07:47 | External Medical Summary | Summary of Care ---
Author Name Unknown Organization [place] [address] Care Team Providers Care Pediatric Physician Assistant Name Role Phone Hortencia Leal PA-C Primary Care Provid er Reason for Visit * Reason Comments Chemotherapy Opdivo * Evaluate & Treat - Unlimited Visits (Within 30 days (routine)) - Authorized Specialty Diagnoses / Procedures Referred By Lizzie reno Referred To Contact Hematology Oncology Diagnoses Adenocarcinoma esophagus Procedures Eval and treat Hortencia Leal PA-C [address] [facility] [place] [address] Referral ID Status Reason Start Date Expiration Date Visits Requested Visits Authorized [id number] Authorized Specialty Services Required 10/26/2021 10/27/[phone] Encounter Details Date Type Department Care Team Description 05/18/2022 Hem/Onc Treatment Hematology/Oncology Treatment, [place] [address] [facility] [address] Maddy, Chair 4 Hem Onc [facility] [address] [facility] [place] [address] 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 documented as of this encounter (statuses as of 05/18/2022) Immunizations Name Administration Dates Next Due COVID-19 [...] Sign Reading Time Taken Comments Blood Pressure 153/73 05/18/2022 1:20 PM EDT Pulse 64 05/18/2022 1:20 PM EDT Temperature 36.2 C (97.2 F) 05/18/2022 1:20 PM ED T Respiratory Rate 18 05/18/2022 1:20 PM EDT Oxygen Saturation - - Inhaled Oxygen Concentration - - Weight 82.6 kg (182 lb) 05/18/2022 1:20 PM EDT Height - - Body Mass Index 31.24 08/10/2021 8:15 AM EDT documented in this encounter Nursing Notes * Andra Solitario RN - 05/18/2022 3:28 PM EDT Functional status at today's visit: [...] Pt remained free of injury during treatment today. Patient tolerated treatment well and was discharged in stable condition. Coverage by omayra Langford RN. * Andra Solitario RN - 05/18/2022 2:10 PM EDT Chair 9 Chemo agents Opdivo Appetite "too good" Nausea/Vomiting no Diarrhea no Constipation no Mucositis no Fatigue no Bleeding no Infection no Rash no Numbness tingling no Pain no Radiation no ABN Labs WNL for treatment Alt in Tx: no Return in 3 weeks BUN/Creat elevated. Pt reports he hasn't been drinking much water, only 1 20oz bottle per day max, the rest of the day he drinks Coke. Educated pt about need for better hydration, increasing water intake and reducing caffeinated drinks. He verbalized understanding. VAD accessed without difficulty, fluids infusing. Safety and Risk for Injury Patient will remain free from injury. Ensure appropriate safety devices are available. Provide and maintain safe environment. documented in this encounter Plan of Treatment Upcoming Encounters Date Type Specialty Care Team Description 06/05/2022 Imaging Radiology 06/13/2022 Laboratory Laboratory [facility] [address] [place] [address] 06/14/2022 Office Visit Hematology Oncology Nik Melo MD 200 [place] [address] 06/14/2022 Hem/Onc Treatment Hematology Oncology 04/04/2023 Office Visit Urology Cm Rhodes MD [address] [place] [address] [place] [address] Health Maintenance Due Date [...] of this encounter Implants Implanted Type Area Music Therapist [employer] Device Identifier Shelf Expiration Date Model / Serial / Lot Cath Power Port 6fr Clearvue - [id number] Implanted:Qty : 1 on 08/10/2021 by Alexander Rodriguez MD at [facility] Left: Subclavian CR BARD : PERIPHERAL VASCULAR 08/21/2021 [id number] / / documented as of this encounter [...] PRN Other, Hypersensitivity Reaction, Starting on Chandrika 05/18/22 at 1328, Until Sun05/19/22 at 1327, For 24 hours EPINEPHrine 1 MG/ML inj 0.3 mg 0.3 mg, Intramuscular, ONCE PRN Other, Hypersensitivity Reaction or Anaphylaxis, Starting on Chandrika 05/18/22 at 1328, Until Sun05/19/22 at 1327, For 24 hours hEParin 100 UNIT/ML Lock Flush inj 500 Units 500 Units (5 mL), IV Lock, PRN Other, IV Flush, Starting on Sun05/18/22 at 1328, Until Sun05/19/22 at 1327, For 24 hours, Do not flush if lock, PICC, or central line not in place; IV infusing or unable to flush. Given 05/18/2022 2:50 PM EDT 500 Units Hydrocortisone Na Succinate PF (Solu-Cortef) inj 100 mg 100 mg, IV Push, ONCE PRN Other, Hypersensitivity Reaction, Starting on Sun05/18/22 at 1328, Until Sun05/19/22 at 1327, For 24 hours NSS infusion 500 mL, Intravenous, at 50 mL/hr, CONTINUOUS, Starting on Sun05/18/22 at 1430, Until Sun05/19/22 at 0029 Start Infusion 05/18/2022 1:30 PM EDT 500 mL 50 mL/hr sodium chloride 0.9 % flush/inj 10 mL 10 mL, IV Push, PRN Other, IV Flush, Starting on Sun05/18/22 at 1328, Until Sun05/19/22 at 1327, For 24 hours, Do not flush if lock, PICC, or central line not in place; IV infusing or unable to flush. Given 05/18/2022 2:49 PM EDT 10 mL Inactive Administered Medications [...] (0.2 micrometer-1.2 micrometer), ONCE, 1 dose, On Sun05/18/22 at 1500 Start Infusion 05/18/2022 2:02 PM EDT 480 mg 200 mL/hr documented in this encounter Advance Directives Documents on File Type Date Recorded Patient Financial Sales Associate Expl 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 Care Teams Pediatric Physician Assistant Relationship Specialty Start Date End Date Hortencia Leal PA-C [address] [facility] [address] PCP - General Physician Demurrage Worker 02/08/18 documented as of this encounter
--- OUTSIDE RECORDS SUMMARY | 2023-06-27 07:47 | External Medical Summary ---
Author Name Unknown Address Unknown Organization K09:[facility] [place] [address] Laboratory Report Ordering Provider Test Date Status SHAY CH 05/16/2022 13:16:44 Final Observation Date Value Abnormality Reference (Units ) Status SYNC LEUKOCYTES IN BLOOD BY AUTOMATED COUNT 05/16/2022 13:16:44 5.73 4.00-10.80 (K/uL) Final Segs 05/16/2022 13:16:44 66.4 40.0-75.0 (%) Final Lymphs % 05/16/2022 13:16:44 20.2 18.0-42.0 (%) Final Monos 05/16/2022 13:16:44 9.9 1.0-11.0 (%) Final Eosinophils 05/16/2022 13:16:44 3.0 0.0-6.0 (%) Final Basos 05/16/2022 13:16:44 0.5 0.0-2.0 (%) Final Absolute Segs 05/16/2022 13:16:44 3.80 1.80-7.70 (K/uL) Final Lymphs, absolute 05/16/2022 13:16:44 1.16 1.00-4.80 (K/ul) Final Monos, Abs 05/16/2022 13:16:44 0.57 0.00-1.10 (K/uL) Final Eos, Abs 05/16/2022 13:16:44 0.17 0.00-0.70 (K/uL) Final Basos, Abs 05/16/2022 13:16:44 0.03 0.00-0.20 (K/uL) Final Performing Location [facility] [place] [address]
--- OUTSIDE RECORDS SUMMARY | 2023-06-27 07:47 | External Medical Summary | Summary of Care ---
Author Name Unknown Organization [place] [address] Care Team Providers Care Exchange Consultant Name Role Phone Hortencia Leal PA-C Primary Care Provid er Encounter Details Date Type Department Care Team Description 07/09/2022 Orders Only Hematology/Oncology [facility] [address] [place] [address] Nik Melo MD [address] [place] [address] Allergies Active Allergy Reactions Severity Noted Date Comments Amlodipine 11/02/2020 dizziness Codeine Sulfate Other (Please comment) 10/26/19 11 hyperactivity Hydrochlorothiazide 11/02/2020 hypercalcemia Oxaliplatin 02/09/2022 Infusion related reaction documented as of this encounter (statuses as of 07/09/2022) Medications Medication Sig Dispensed Refills Start Date [...] times a day. 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 200 [place] [address] 07/12/2022 Hem/Onc Treatment Hematology Oncology [place], Chair [address] [facility] [address] [place] [address] 09/26/2022 Laboratory Laboratory [facility] 200 [place] [address] 09/27/2022 Office Visit Hematology Oncology Nik Melo MD 200 [place] [address] 04/04/2023 Office Visit Urology Cm Rhodes MD [address] [place] [address] Health Maintenance Due Date Last Done [...] of this encounter Implants Implanted Type Area Websphere Developer Device Identifier Shelf Expiration Date Model / Serial / Lot Cath Power Port 6fr Clearvue - [id number] Implanted:Qty : 1 on 08/10/2021 by Alexander Rodriguez MD at [place] [facility] [place] Left: Subclavian CR BARD : PERIPHERAL VASCULAR 08/21/2021 [id number] / / documented as of this encounter Advance Directives Documents on File Type Date Recorded Patient Financial Services Auditor Expl 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 Care Teams Exchange Consultant Relationship Specialty Start Date End Date Hortencia Leal PA-C [address] [place] [address] PCP - General Physician Time Study Technician 02/08/18 documented as of this encounter
--- OUTSIDE RECORDS SUMMARY | 2023-06-27 07:47 | External Medical Summary ---
Author Name Unknown Address Unknown Organization K01:[facility] - [address] [place] [address] Laboratory Report Ordering Provider Test Date Status SHAY CH 06/13/2022 10:19:53 Final Observation Date Value Abnormality Reference (Units ) Status TSH 06/13/2022 10:19:53 1.41 0.27-4.20 (uIU/mL) Final Performing Location [facility] - [address] [place] [address]
--- OUTSIDE RECORDS SUMMARY | 2023-06-27 07:47 | External Medical Summary | Summary of Care ---
Author Name Unknown Organization [place] [address] Care Team Providers Care Cra Officer Name Role Phone Hortencia Leal PA-C Primary Care Provid er Encounter Details Date Type Department Care Team Description 06/11/2022 Orders Only Hematology/Oncology [facility] [address] [facility] [place] [address] Nik Melo MD 200 [place] [address] Allergies Active Allergy Reactions Severity Noted Date Comments Amlodipine 11/02/2020 dizziness Codeine Sulfate Other (Please comment) 10/26/19 11 hyperactivity Hydrochlorothiazide 11/02/2020 hypercalcemia Oxaliplatin 02/09/2022 Infusion related reaction documented as of this encounter (statuses as of 06/11/2022) Medications Medication Sig Dispensed Refills Start Date [...] times a day. 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 documented as of this encounter (statuses as of 06/11/2022) Immunizations Name Administration Dates Next Due COVID-19 [...] Specialty Care Team Description 06/13/2022 Laboratory Laboratory Enrique Castañeda [facility] [address] [place] [address] 06/14/2022 Office Visit Hematology Oncology Nik Melo MD 200 [place] [address] 06/14/2022 Hem/Onc Treatment Hematology Oncology 04/04/2023 Office Visit Urology Cm Rhodes MD [address] [place] [address] Health Maintenance Due Date Last Done [...] of this encounter Implants Implanted Type Area Helper Animal Laboratory Device Identifier Shelf Expiration Date Model / Serial / Lot Cath Power Port 6fr Clearvue - [id number] Implanted:Qty : 1 on 08/10/2021 by Alexander Rodriguez MD at OR [facility] Left: Subclavian CR BARD : PERIPHERAL VASCULAR 08/21/2021 [id number] / / documented as of this encounter Advance Directives Documents on File Type Date Recorded Patient Recruiter Account Manager Expl 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 Care Teams Cra Officer Relationship Specialty Start Date End Date Hortencia Leal PA-C [address] [facility], [place] [address] PCP - General Physician Physical Therapy Director 02/08/18 documented as of this encounter
--- OUTSIDE RECORDS SUMMARY | 2023-06-27 07:47 | External Medical Summary | Summary of Care ---
Author Name Unknown Organization [place] [address] Care Team Providers Care Service Desk Specialist Name Role Phone Hortencia Leal PA-C Primary Care Provid er Reason for Visit * Reason Comments Outpatient Testing * Evaluate & Treat - Unlimited Visits (Within 30 days (routine)) - Authorized Specialty Diagnoses / Procedures Referred By Lizzie reno Referred To Contact Hematology Oncology Diagnoses Adenocarcinoma esophagus Procedures Eval and treat Hortencia Leal PA-C [address] [place] [address] Referral ID Status Reason Start Date Expiration Date Visits Requested Visits Authorized [id number] Authorized Specialty Services Required 10/26/2021 10/27/[phone] Encounter Details Date Type Department Care Team Description 05/16/2022 Laboratory Laboratory [facility] [place] [address] [place] [id number] Enrique Castañeda [address] [place] [address] 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 documented as of this encounter (statuses as of 05/16/2022) Immunizations Name Administration Dates Next Due COVID-19 [...] Encounters Date Type Specialty Care Team Description 05/18/2022 Hem/Onc Treatment Hematology Oncology [place], Chair [address] Hem Onc [facility] [address] [place] [address] 06/05/2022 Imaging Radiology 06/13/2022 Laboratory Laboratory [address] [address] 06/14/2022 Office Visit Hematology Oncology Nik Melo MD 200 [place] [address] 06/14/2022 Hem/Onc Treatment Hematology Oncology 04/04/2023 Office Visit Urology Cm Rhodes MD [address] [place] [address] [place] [address] Pending Results Name Type Priority Associated Diagnoses Date /Time COMPREHENSIVE METABOLIC PANEL Lab STAT 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) 05/16/2022 1:16 PM EDT TSH WITH FREE T4 IF INDICATED Lab STAT 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) Encounter for long-term (current) use of medications 05/16/2022 1:16 PM EDT Health Maintenance Due Date Last Done Comments Pneumococcal Vaccine: 65+ Years (1 - PCV) 12/29/1951 Depression Screening, Annual for Pts 12 and Over 1957 DTaP,Tdap,and Td Vaccines (1 - Tdap) 1964 [...] of this encounter Implants Implanted Type Area Virtual Assistant For Advertisers Device Identifier Shelf Expiration Date Model / Serial / Lot Cath Power Port 6fr Clearvue - [id number] Implanted:Qty : 1 on 08/10/2021 by Alexander Rodriguez MD at [facility] Left: Subclavian CR BARD : PERIPHERAL VASCULAR 08/21/2021 [id number] / / documented as of this encounter Procedures Procedure Name Priority Date/Time Associated Diagnosis Comments DIFFERENTIAL, AUTOMATED STAT 05/16/2022 1:16 PM EDT 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) CBC WITH WBC DIFFERENTIAL STAT 05/16/2022 1:16 PM EDT 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) CBC STAT 05/16/2022 1:16 PM EDT 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) documented in this encounter Results * DIFFERENTIAL, AUTOMATED (05/16/2022 1:16 PM EDT) [facility] WBC 5.73 4.00 - 10.80 K/uL [facility] 56- Neutrophils % 66.4 40.0 - 75.0 % [facility] 56- Lymphocytes % 20.2 18.0 - 42.0 % [facility] 56- Monocytes % 9.9 1.0 - 11.0 % [facility] 56- Eosinophils % 3.0 0.0 - 6.0 % [facility] 56- Basophils % 0.5 0.0 - 2.0 % [facility] 56- Absolute Neutrophils 3.80 1.80 - 7.70 K/uL [facility] 56- Absolute Lymphocytes 1.16 1.00 - 4.80 K/ul [facility] 56- Absolute Monocytes 0.57 0.00 - 1.10 K/uL [facility] 56- Absolute Eosinophils 0.17 0.00 - 0.70 K/uL [facility] 56- Absolute Basophils 0.03 0.00 - 0.20 K/uL [facility] 56-02 Specimen Blood - Venous blood specime n (specimen) [facility] [address] [place] [address] * (ABNORMAL) CBC (05/16/2022 1:16 PM EDT) [facility] WBC 5.73 4.00 - 10.80 K/uL [facility] 56- RBC 3.91 4.50 - 5.25 M/uL [facility] 56- HGB 12.6(L) 14.0 - 16.8 g/dL [facility] 56- HCT 38.3(L) 40.0 - 48.4 % [facility] 56- MCV 98.0 82.0 - 99.5 fL [facility] 56- MCH 32.2 27.0 - 34.0 pg [facility] 56- MCHC 32.9 32.0 - 36.0 g/dL [facility] 56- RDW 14.3 11.5 - 15.5 % [place] [address]- PLT 109(L) 140 - 400 K/uL [facility] 56- MPV 9.2 6.6 - 11.1 fL [facility] 56- Specimen Blood - Venous blood specime n (specimen) Performing Organization Address City/State/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 Care Teams Service Desk Specialist Relationship Specialty Start Date End Date Hortencia Leal PA-C [address] [place] [address] PCP - General Physician Microbiology Teacher 02/08/18 documented as of this encounter
--- OUTSIDE RECORDS SUMMARY | 2023-06-27 07:47 | External Medical Summary ---
Author Name Unknown Address Unknown Organization K09:[facility] [place] [address] Laboratory Report Ordering Provider Test Date Status SHAY CH 05/16/2022 13:16:44 Final Observation Date Value Abnormality Reference (Units ) Status WBC, Total 05/16/2022 13:16:44 5.73 4.00-10.8 0 (K/uL) Final RBC 05/16/2022 13:16:44 3.91 4.50-5.25 (M/uL) Final Hemoglobin 05/16/2022 13:16:44 12.6 Below low normal 14 .0-16.8 (g/dL) Final HCT 05/16/2022 13:16:44 38.3 Below low normal 40. 0-48.4 (%) Final MCV 05/16/2022 13:16:44 98.0 82.0-99.5 (fL) Final MCH 05/16/2022 13:16:44 32.2 27.0-34.0 (pg) Final MCHC 05/16/2022 13:16:44 32.9 32.0-36.0 (g/dL) Final RDW 05/16/2022 13:16:44 14.3 11.5-15.5 (%) Final Platelets 05/16/2022 13:16:44 109 Below low normal 140 -400 (K/uL) Final MPV 05/16/2022 13:16:44 9.2 6.6-11.1 ( fL) Final Performing Location [facility] [place] [address]
--- OUTSIDE RECORDS SUMMARY | 2023-06-27 07:47 | External Medical Summary ---
Author Name Unknown Address Unknown Organization K09:[facility] [place] [address] Laboratory Report Ordering Provider Test Date Status SHAY CH 05/16/2022 13:16:44 Final Observation Date Value Abnormality Reference (Units ) Status BUN 05/16/2022 13:16:44 32 Above high normal 6-20 (mg/dL) Final Creatinine 05/16/2022 13:16:44 1.9 Above high normal 0.6-1.2 (mg/dL) Final Glomerular filtration rate/1.73 sq M.predicted [Volume Rate/Area] in Serum, Plasma or Blood by Creatinine-based formula (CKD-EPI) 05/16/2022 13:16:44 37 Below low normal >=60 (mL/min) Final Performing Location [facility] [place] [address]
--- OUTSIDE RECORDS SUMMARY | 2023-06-27 07:47 | External Medical Summary | Summary of Care ---
Author Name Unknown Organization [place] [address] Care Team Providers Care Lever Operator Name Role Phone Hortencia Leal PA-C Primary Care Provid er Reason for Visit * Reason Comments Medication Administration opdiva * Evaluate & Treat - Unlimited Visits (Within 30 days (routine)) - Authorized Specialty Diagnoses / Procedures Referred By Lizzie reno Referred To Contact Hematology Oncology Diagnoses Adenocarcinoma esophagus Procedures Eval and treat Hortencia Leal PA-C [address] [place] [address] Referral ID Status Reason Start Date Expiration Date Visits Requested Visits Authorized [id number] Authorized Specialty Services Required 10/26/2021 10/27/[phone] Encounter Details Date Type Department Care Team Description 06/14/2022 Hem/Onc Treatment Hematology/Oncology Treatment, [place] [address] [place] [phone] 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 documented as of this encounter (statuses as of 06/14/2022) Immunizations Name Administration Dates Next Due COVID-19 [...] as of this encounter Nursing Notes * Ofe Castañeda RN - 06/14/2022 12:12 PM EDT Goals: pt will remain free from injury Possible barriers to meeting goals: ambulating with IV pole, possible reaction to treatment Stability of the patient: Moderately stable - low risk of patient condition declining or worsening Summary regarding today's goals: Met: Pt remained free from injury and did not have a reaction to treatment at this time Functional status at today's visit: Restricted in [...] or adverse side effects during treatment. Pt tolerated treatment procedure well, no acute distress noted. Pt ambulated to the exit without incident. * Ofe Castañeda RN - 06/14/2022 10:37 AM EDT Chair 3 Pt presents to clinic for IV opdiva, port accessed and fluids infusing without difficulty. No acutedistress noted, pt had no complaints at this time. Pt seen by dr. Melo, see office note for chemo checklist. Pt's PLT count was 95, pt approved for treatment by Dr. Melo. Safety and Risk for Injury Patient will remain free from injury. Ensure appropriate safety devices are available. Provide and maintain safe environment. documented in this encounter Plan of Treatment Upcoming Encounters Date Type Specialty Care Team Description 07/11/2022 Laboratory Laboratory [place], [facility] [address] [place] [facility] [place] [address] 07/12/2022 Hem/Onc Treatment Hematology Oncology [place], Chair 3 Hem Onc Scenery [address] [place] [address] 09/26/2022 Laboratory Laboratory [place] [address] [facility] [place] [address] 09/27/2022 Office Visit Hematology Oncology Nik Melo MD [address] [place] [facility] [place] [address] 04/04/2023 Office Visit Urology Cm Rhodes MD [address] [address] Health Maintenance Due Date Last [...] of this encounter Implants Implanted Type Area Stage Technician Device Identifier Shelf Expiration Date Model / Serial / Lot Cath Power Port 6fr Clearvue - [id number] Implanted:Qty : 1 on 08/10/2021 by Alexander Rodriguez MD at [facility] Left: Subclavian CR BARD : PERIPHERAL VASCULAR 08/21/2021 [id number] / / documented as of this encounter [...] ONCE PRN Other, Hypersensitivity Reaction, Starting on Sun06/14/22 at 1022, Until Chandrika 06/15/22 at 1021, For 24 hours EPINEPHrine 1 MG/ML inj 0.3 mg 0.3 mg, Intramuscular, ONCE PRN Other, Hypersensitivity Reaction or Anaphylaxis, Starting on Sun06/14/22 at 1022, Until Chandrika 06/15/22 at 1021, For 24 hours hEParin 100 UNIT/ML Lock Flush inj 500 Units 500 Units (5 mL), IV Lock, PRN Other, IV Flush, Starting on Sun06/14/22 at 1022, Until Chandrika 06/15/22 at 1021, For 24 hours, Do not flush if lock, PICC, or central line not in place; IV infusing or unable to flush. Given 06/14/2022 11:44 AM EDT 500 Units Hydrocortisone Na Succinate PF (Solu-Cortef) inj 100 mg 100 mg, IV Push, ONCE PRN Other, Hypersensitivity Reaction, Starting on Sun06/14/22 at 1022, Until Chandrika 06/15/22 at 1021, For 24 hours NSS infusion 500 mL, Intravenous, at 50 mL/hr, CONTINUOUS, Starting on Sun06/14/22 at 1130, Until Sun06/14/22 at 2129 Start Infusion 06/14/2022 10:22 AM EDT 500 mL 50 mL/hr sodium chloride 0.9 % flush/inj 10 mL 10 mL, IV Push, PRN Other, IV Flush, Starting on Sun06/14/22 at 1022, Until Chandrika 06/15/22 at 1021, For 24 hours, Do not flush if lock, PICC, or central line not in place; IV infusing or unable to flush. Given 06/14/2022 11:44 AM EDT 10 mL Inactive Administered Medications [...] (0.2 micrometer-1.2 micrometer), ONCE, 1 dose, On Sun06/14/22 at 1115 Start Infusion 06/14/2022 11:12 AM EDT 480 mg 200 mL/hr documented in this encounter Advance Directives Documents on File Type Date Recorded Patient Household Chores Expl 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 Care Teams Lever Operator Relationship Specialty Start Date End Date Hortencia Leal PA-C [address] [place] [address] PCP - General Physician Test Automation Architect 02/08/18 documented as of this encounter
--- OUTSIDE RECORDS SUMMARY | 2023-06-27 07:47 | External Medical Summary | Summary of Care ---
Author Name Unknown Organization [place] [address] Care Team Providers Care Prime Minister Name Role Phone Hortencia Leal PA-C Primary Care Provid er Reason for Visit * Reason Comments Follow Up * Evaluate & Treat - Unlimited Visits (Within 30 days (routine)) - Authorized Specialty Diagnoses / Procedures Referred By Lizzie reno Referred To Contact Hematology Oncology Diagnoses Adenocarcinoma esophagus Procedures Eval and treat Hortencia Leal PA-C [address] [place] [address] Referral ID Status Reason Start Date Expiration Date Visits Requested Visits Authorized [id number] Authorized Specialty Services Required 10/26/2021 10/27/[phone] Encounter Details Date Type Department Care Team Description 06/14/2022 Office Visit Hematology/Oncology [facility] [address] [place] [address] Nik Melo MD [address] [place] [address] 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 As needed 0 Active [place]-3 Fatty Acids (FISH OIL) 1000 MG Capsule [...] Sign Reading Time Taken Comments Blood Pressure 124/68 06/14/2022 9:20 AM EDT Pulse 74 06/14/2022 9:20 AM EDT Temperature 35.9 C (96.6 F) 06/14/2022 9:20 AM ED T Respiratory Rate 18 06/14/2022 9:20 AM EDT Oxygen Saturation 98% 06/14/2022 9:20 AM EDT Inhaled Oxygen Concentration - - Weight 82.9 kg (182 lb 12.8 oz) 06/14/2022 9:20 AM EDT Height - - Body Mass Index 31.38 08/10/2021 8:15 AM EDT documented in this encounter Progress Notes * Nik Melo MD - 06/14/2022 9:41 AM EDT Outpatient Consult Note Data Source: Patient, Epic record. Data Source: Patient, Epic record. 06/14/2022 9:41 AM Heath [place] [id number] 76 year old Patient Encounter: HEMATOLOGY/ONCOLOGY [facility] Cancer Diagnosis: -Metastatic esophageal cancer - laparoscopic biopsy of the peritoneal nodule which is positive for metastatic disease - Prostate cancer,pT2, Group IIA, Juan 3+4 Current Treatment: -Nivolumab was added on 11/02/2021 -on Eligard for the prostate cancer Previous Treatment: Received total of 9 cycles of FOLFOX. [...] 0.6 cm HISTOLOGIC TYPE: Adenocarcinoma HISTOLOGIC GRADE (Gilead): Primary pattern is: Grade 3: single acini of variable size and separation, cribriform and papillarypatterns Secondary pattern is: Grade 3: single acini of variable size and separation, cribriform and papillary patterns Gilead Score (primary + secondary) = 5-6: Moderately [...] 2.1 cm HISTOLOGIC TYPE: Adenocarcinoma HISTOLOGIC GRADE (Gilead): Primary pattern is: Grade 3: single acini of variable size and separation, cribriform and papillarypatterns Secondary pattern is: Grade 4: irregular masses of acini and fused epithelium, can show clear cells Gilead Score (primary + secondary) = 7: Moderately poorly differentiated Gilead Score (primary + secondary) = 8-10: Poorly [...] mesothelial cells Interval History: He is in excellent performance status clinically feeling well with good energy level without any new symptoms of complain of toxicity from the treatment. He denies any headache, dizziness, blurred vision, chest pain, shortness breath palpitation abdominal pain or distention, bleeding, bruising, nausea, vomiting, fever, night sweats, hematuria, hematochezia, weight loss. LABS/IMAGING: Recent blood test were done yesterday which shows WBC count 4.6, hemoglobin 12.3 and platelet [id number]. Creatinine is 1.8 which is stable and the rest of the electrolytes are within acceptable range. Follow-up PET scan was done on 06/05/2022 which revealed no abnormal uptake to suggest active cancer. REVIEW OF SYSTEMS: General: No Fever, chills, [...] mouth 2 times a day. As needed [place]-3 Fatty Acids (FISH OIL) 1000 MG Capsule [...] Social History Tobacco Use Smoking status: Never Smoker Smokeless tobacco: Never Used Vaping Use Vaping Use: Never used Substance Use Topics Alcohol use: No Drug use: No Review of patient's allergies indicates: Allergen Reactions Amlodipine dizziness Codeine Sulfate Other (Please comment) hyperactivity Hctz [Hydrochlorothiazide] hypercalcemia Oxaliplatin Infusion related reaction PHYSICAL EXAMINATION: General Appearance: Healthy appearing patient in no acute distress BP 124/68 (BP Site: Left Arm, BP Position: Sitting, BP Cuff Size: Regular) | Pulse 74 | Temp 35.9 C (96.6 F) (Tympanic) | Resp 18 | Wt 82.9 kg (182 lb 12.8 oz) | SpO2 98% | BMI 31.38 kg/m | BSA1.93 m Vitals reviewed. HEENT: No oral or [...] evidence of gout, no jointor bony deformity Neurologic: Muscle power is 5/5 in all extremities. ASSESSMENT: 76-year-old male with history of prostate [...] for metastatic disease. Patient was started on FOLFOXwith excellent response on the follow-up PET scan. [...] remission with no evidence of active disease. Discussed with the patient about diagnosis and prognosis and reviewed all the available blood testsand PET scan finding with him. He continues to be in complete remission. He will continue this treatment on monthly basis for at least 2 years provided there is no disease progression or toxicity. He also has history of prostate cancer currently following urology at [facility] for further management. In the past he was treated with the prostatectomy and radiation therapy and Eligard. PLAN: Continue nivolumab on a every 4 weeks basis. He will return to clinic for follow-up in 3 months with CBC, CMP and TSH. The patient voiced understanding of all of [...] documented in this encounter Nursing Notes * Opal Wesley LPN - 06/14/2022 9:17 AM EDT Patient identifed by name and [...] it for you? ALREADY ACTIVE Filed Vitals: 06/14/22 0920 BP: 124/68 Pulse: 74 Resp: 18 Temp: 35.9 C (96.6 F) TempSrc: Tympanic SpO2: 98% Weight: 82.9 kg (182 lb 12.8 oz) documented in this encounter Plan of Treatment Upcoming Encounters Date Type Specialty Care Team Description 07/12/2022 Hem/Onc Treatment Hematology Oncology [place], Chair [address] [address] 09/27/2022 Office Visit Hematology Oncology Nik Melo MD [address] [place] [address] 04/04/2023 Office Visit Urology Cm Rhodes MD [address] [place] [address] Health Maintenance Due Date Last Done [...] of this encounter Implants Implanted Type Area Project Director Device Identifier Shelf Expiration Date Model / Serial / Lot Cath Power Port 6fr Clearvue - [id number] Implanted:Qty : 1 on 08/10/2021 by Alexander Rodriguez MD at [facility] Left: Subclavian CR BARD : PERIPHERAL VASCULAR 08/21/2021 [id number] / / documented as of this encounter Visit Diagnoses Diagnosis 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 Care Teams Prime Minister Relationship Specialty Start Date End Date Hortencia Leal PA-C [address] [place] [address] PCP - General Physician Director Home 02/08/18 documented as of this encounter"
--- OUTSIDE RECORDS SUMMARY | 2023-06-27 07:47 | External Medical Summary ---
Author Name Unknown Address Unknown Organization [id number]:[facility] [place] [address] Laboratory Report Ordering Provider Test Date Status SHAY CH 06/13/2022 10:19:53 Final Observation Date Value Abnormality Reference (Units ) Status WBC, Total 06/13/2022 10:19:53 4.61 4.00-10.8 0 (K/uL) Final RBC 06/13/2022 10:19:53 3.89 4.50-5.25 (M/uL) Final Hemoglobin 06/13/2022 10:19:53 12.3 Below low normal 14 .0-16.8 (g/dL) Final HCT 06/13/2022 10:19:53 38.1 Below low normal 40. 0-48.4 (%) Final MCV 06/13/2022 10:19:53 97.9 82.0-99.5 (fL) Final MCH 06/13/2022 10:19:53 31.6 27.0-34.0 (pg) Final MCHC 06/13/2022 10:19:53 32.3 32.0-36.0 (g/dL) Final RDW 06/13/2022 10:19:53 14.7 11.5-15.5 (%) Final Platelets 06/13/2022 10:19:53 95 Below low normal 140 -400 (K/uL) Final MPV 06/13/2022 10:19:53 8.7 6.6-11.1 ( fL) Final Performing Location [facility] [place] [address]
--- OUTSIDE RECORDS SUMMARY | 2023-06-27 07:47 | External Medical Summary ---
Author Name Unknown Address Unknown Organization [id number]:[facility] [place] [address] Laboratory Report Ordering Provider Test Date Status SHAY CH 06/13/2022 10:19:53 Final Observation Date Value Abnormality Reference (Units ) Status BUN 06/13/2022 10:19:53 39 Above high normal 6-20 (mg/dL) Final Creatinine 06/13/2022 10:19:53 1.8 Above high normal 0.6-1.2 (mg/dL) Final Glomerular filtration rate/1.73 sq M.predicted [Volume Rate/Area] in Serum, Plasma or Blood by Creatinine-based formula (CKD-EPI) 06/13/2022 10:19:53 38 Below low normal >=60 (mL/min) Final Performing Location [facility] [place] [address]
--- OUTSIDE RECORDS SUMMARY | 2023-06-27 07:47 | External Medical Summary ---
Author Name Unknown Address Unknown Organization [id number]:[facility] [place] [place] [address] [place] [address] Laboratory Report Ordering Provider Test Date Status SHAY CH 05/16/2022 13:16:44 Final Observation Date Value Abnormality Reference (Units ) Status TSH 05/16/2022 13:16:44 1.08 0.27-4.20 (uIU/mL) Final Performing Location [facility] [place], [place] - [address] [place] [address]
--- OUTSIDE RECORDS SUMMARY | 2023-06-27 07:47 | External Medical Summary | Summary of Care ---
Author Name Unknown Organization [place] [address] Care Team Providers Care Dial Buffer Name Role Phone Hortencia Leal PA-C Primary Care Provid er Encounter Details Date Type Department Care Team Description 06/13/2022 Orders Only Hematology/Oncology [facility] [address] [place] [address] Nik Melo MD 200 [facility] [place] [address] Allergies Active Allergy Reactions Severity Noted Date [...] times a day. As needed 0 Active [place]-3 Fatty Acids (FISH OIL) 1000 MG Capsule [...] 06/13/2022 Laboratory Laboratory Enrique Castañeda [facility] [address] [place] [address] 06/14/2022 Office Visit Hematology Oncology Nik Melo MD [address] [place] [address] 06/14/2022 Hem/Onc Treatment Hematology Oncology 04/04/2023 Office Visit Urology Cm Rhodes MD [address] [place] [address] Health Maintenance Due Date Last Done [...] of this encounter Implants Implanted Type Area Soldering Machine Tender Device Identifier Shelf Expiration Date Model / Serial / Lot Cath Power Port 6fr Clearvue - [id number] Implanted:Qty : 1 on 08/10/2021 by Alexander Rodriguez MD at OR [facility] [place] Left: Subclavian CR BARD : PERIPHERAL VASCULAR 08/21/2021 [id number] / / documented as of this encounter Advance Directives Documents on File Type Date Recorded Patient Core Machine Operator Expl anation Advanced Directive Advanced [...] and were consensually agreed upon. Care Teams Dial Buffer Relationship Specialty Start Date End Date Hortencia Leal PA-C [address] [facility], [place] [address] PCP - General Physician Quill Picking Machine Operator 02/08/18 documented as of this encounter
--- OUTSIDE RECORDS SUMMARY | 2023-06-27 07:47 | External Medical Summary ---
Author Name Unknown Address Unknown Organization K09:[facility] [place] [place] [address] Laboratory Report Ordering Provider Test Date Status SHAY CH 06/13/2022 10:19:53 Final Observation Date Value Abnormality Reference (Units ) Status SYNC LEUKOCYTES IN BLOOD BY AUTOMATED COUNT 06/13/2022 10:19:53 4.61 4.00-10.80 (K/uL) Final Segs 06/13/2022 10:19:53 58.2 40.0-75.0 (%) Final Lymphs % 06/13/2022 10:19:53 25.4 18.0-42.0 (%) Final Monos 06/13/2022 10:19:53 11.7 Above high normal 1.0-11.0 (%) Final Eosinophils 06/13/2022 10:19:53 4.3 0.0-6.0 (%) Final Basos 06/13/2022 10:19:53 0.4 0.0-2.0 (%) Final Absolute Segs 06/13/2022 10:19:53 2.68 1.80-7.70 (K/uL) Final Lymphs, absolute 06/13/2022 10:19:53 1.17 1.00-4.80 (K/ul) Final Monos, Abs 06/13/2022 10:19:53 0.54 0.00-1.10 (K/uL) Final Eos, Abs 06/13/2022 10:19:53 0.20 0.00-0.70 (K/uL) Final Basos, Abs 06/13/2022 10:19:53 0.02 0.00-0.20 (K/uL) Final Performing Location [facility] [place] [place] [address]
--- OUTSIDE RECORDS SUMMARY | 2023-06-27 07:48 | External Medical Summary ---
Author Name Unknown Address Unknown Organization K09[facility] [place] [address] Laboratory Report Ordering Provider Test Date Status SHAY CH 04/18/2022 10:21:13 Final Observation Date Value Abnormality Reference (Units ) Status BUN 04/18/2022 10:21:13 27 Above high normal 6-20 (mg/dL) Final Creatinine 04/18/2022 10:21:13 1.7 Above high normal 0.6-1.2 (mg/dL) Final Glomerular filtration rate/1.73 sq M.predicted [Volume Rate/Area] in Serum, Plasma or Blood by Creatinine-based formula (CKD-EPI) 04/18/2022 10:21:13 41 Below low normal >=60 (mL/min) Final Performing Location [facility] [place] [address]
--- OUTSIDE RECORDS SUMMARY | 2023-06-27 07:48 | External Medical Summary | Summary of Care ---
Author Name Unknown Organization [facility] Address [facility] [place] [address] Care Team Providers Care Group Fitness Manager Name Role Phone Hortencia Leal PA-C Primary Care Provid er Reason for Visit * Reason Onset Date Comments Test Results 04/19/2022 lmom 04/19, lmom 04/20, myg 04/21 Encounter Details Date Type Department Care Team Description 04/19/2022 Telephone Urology, [facility] [address] [facility] [place] [address] Cm Rhodes MD 27 [facility] [address] [place] [address] Test Results (lmom 04/19, lmom 04/20, myg 7) Allergies Active Allergy Reactions Severity Noted Date Comments Amlodipine 11/02/2020 dizziness Codeine Sulfate Other (Please comment) 10/26/19 11 hyperactivity Hydrochlorothiazide 11/02/2020 hypercalcemia Oxaliplatin 02/09/2022 Infusion related reaction documented as of this encounter (statuses as of 04/21/2022) Medications Medication Sig Dispensed Refills Start Date [...] times a day. 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 * Telephone Encounter - Jenni Sequeira LPN - 04/19/2022 11:18 AM EDT Left message on patient's home voicemail asking him to return call to office. * Telephone Encounter - Jenni Sequeira LPN - 04/19/2022 11:18 AM EDT ----- Message from Cm Rhodes MD sent at 04/19/2022 7:44 AM EDT ----- OK to notify patient his PSA has increased slightly. We can wait before restarting Lupron for the PSA to rise higher. Can f/u with rad onc in 6 months as planned, 1 year with ourselves, PSA with eachvisit. Thanks, HM documented in this encounter Plan of Treatment Upcoming Encounters Date Type Specialty Care Team Description 05/16/2022 Laboratory Laboratory [place], Lab Scenery [address] [facility] [place], [place] [address] 05/18/2022 Hem/Onc Treatment Hematology Oncology [place], Chair 6 Hem Onc Scenery 200 [facility] [place] [address] 06/05/2022 Imaging Radiology 06/13/2022 Laboratory Laboratory [place], Lab Scenery [address] [facility] [place], [place] [address] 06/14/2022 Office Visit Hematology Oncology Nik Melo MD 200 [place] [address] 06/14/2022 Hem/Onc Treatment Hematology Oncology 04/04/2023 Office Visit Urology Cm Rhodes MD [address] [place] [address] Health Maintenance Due Date Last Done Comments Pneumococcal Vaccine: 65+ Years (1 - PCV) 12/29/1951 Depression Screening, Annual for Pts 12 and Over 1957 DTaP,Tdap,and Td Vaccines (1 - Tdap) 1964 Zoster Vaccines (1 of 2) 12/29/1995 COVID-19 Vaccine (4 - Booster for Moderna series) 12/30/2021 10/01/2021, 02/14/2021, 01/17/2021 Influenza Vaccine (FLU shot) (#1) 2022 07/30/2021, 08/21/2018, 07/14/2017, Additional history exists COLONOSCOPY-EVERY 3 YRS AGES 18-100 07/15/2024 07/15/2021, 07/15/2021, 04/12/2018, Additional history exists DIABETES SCREEN EVERY 3 YRS-AGE 45 AND ABOVE 04/18/2025 04/18/2022, 03/21/2022, 02/22/2022, Additional history exists GARDASIL-HPV IMMUNIZATION SERIES Aged Out No longer eligible based on patient's age to complete this topic MENINGOCOCCAL (MENACTRA/MENVEO) Aged Out No longer eligible based on patient's age to complete this topic documented as of this encounter Implants Implanted Type Area Forest Management Professor Device Identifier Shelf Expiration Date Model / Serial / Lot Cath Power Port 6fr Clearvsebastian - [id number] Implanted:Qty : 1 on 08/10/2021 by Alexander Rodriguez MD at OR [facility] [place] Left: Subclavian CR BARD : PERIPHERAL VASCULAR 08/21/2021 [id number] / / documented as of this encounter Advance Directives Documents on File Type Date Recorded Patient Housing Project Manager Expl 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 Care Teams Group Fitness Manager Relationship Specialty Start Date End Date Hortencia Leal PA-C [address] [place], [place] [address] PCP - General Physician Horse Trader 02/08/18 documented as of this encounter
--- OUTSIDE RECORDS SUMMARY | 2023-06-27 07:48 | External Medical Summary | Summary of Care ---
Author Name Unknown Organization [place] [address] Care Team Providers Care Register Repairer Name Role Phone Hortencia Leal PA-C Primary Care Provid er Reason for Visit * Reason Onset Date Comments Appointment 03/22/2022 Encounter Details Date Type Department Care Team Description 03/22/2022 Telephone [facility]ematology[facility] [place] 200 [facility] [place] [address] Nik Melo MD 200 [place] [address] Appointment Allergies Active Allergy Reactions Severity Noted Date Comments Amlodipine 11/02/2020 dizziness Codeine Sulfate Other (Please comment) 10/26/19 11 hyperactivity Hydrochlorothiazide 11/02/2020 hypercalcemia Oxaliplatin 02/09/2022 Infusion related reaction documented as of this encounter (statuses as of 03/22/2022) Medications Medication Sig Dispensed Refills Start Date [...] times a day. 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 Patient given prep instructions. documented in this encounter Plan of Treatment Upcoming Encounters Date Type Specialty Care Team Description 03/29/2022 Office Visit Urology Cm Rhodes MD [address] [place] [address] [place] [address] 04/18/2022 Laboratory Laboratory [place], Lab Scenery [address] [place] [address] 04/19/2022 Hem/Onc Treatment Hematology Oncology [place], Chair 11 Hem Onc Scenery [address] [place] [address] 05/16/2022 Laboratory Laboratory [place] Lab Scenery [address] [place] [address] 05/17/2022 Hem/Onc Treatment Hematology Oncology [place], Chair 2 Hem Onc Scenery [address] [place] [address] 06/05/2022 Imaging Radiology 06/13/2022 Laboratory Laboratory [place], Lab Scenery [address] [place] [address] 06/14/2022 Office Visit Hematology Oncology Nik Melo MD 200 [facility], [place] [address] 06/14/2022 Hem/Onc Treatment Hematology Oncology Health Maintenance Due Date Last Done Comments Pneumococcal Vaccine: 65+ Years (1 - PCV) 12/29/1951 Depression Screening, Annual for Pts 12 and Over 1957 DTaP,Tdap,and Td Vaccines (1 - Tdap) 1964 Zoster Vaccines (1 of 2) 12/29/1995 COVID-19 Vaccine (4 - Booster for Moderna series) 12/30/2021 10/01/2021, 02/14/2021, 01/17/2021 COLONOSCOPY-EVERY 3 YRS AGES 18-100 07/15/2024 07/15/2021, 07/15/2021, 04/12/2018, Additional history exists DIABETES SCREEN EVERY 3 YRS-AGE 45 AND ABOVE 03/21/2025 03/21/2022, 02/22/2022, 02/07/2022, Additional history exists Influenza Vaccine (FLU shot) Completed 06/2021, 08/21/2018, 07/14/2017, Additional history exists GARDASIL-HPV IMMUNIZATION SERIES Aged Out No longer eligible based on patient's age to complete this topic MENINGOCOCCAL (MENACTRA/MENVEO) Aged Out No longer eligible based on patient's age to complete this topic documented as of this encounter Implants Implanted Type Area Case Supervisor Device Identifier Shelf Expiration Date Model / Serial / Lot Cath Power Port 6fr Clearvue - [id number] Implanted:Qty : 1 on 08/10/2021 by Alexander Rodriguez MD at [place] [facility] [place] Left: Subclavian CR BARD : PERIPHERAL VASCULAR 08/21/2021 [id number] / / documented as of this encounter Advance Directives Documents on File Type Date Recorded Patient As400 Programmer Expl 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 Care Teams Register Repairer Relationship Specialty Start Date End Date Hortencia Leal PA-C [address] [place] [address] PCP - General Physician At Risk Specialist 02/08/18 documented as of this encounter
--- OUTSIDE RECORDS SUMMARY | 2023-06-27 07:48 | External Medical Summary | Summary of Care ---
Author Name Unknown Organization [place] [address] Care Team Providers Care Plating Operator Name Role Phone Hortencia Leal PA-C Primary Care Provid er Reason for Visit * Reason Onset Date Comments transfer of records 03/22/2022 Encounter Details Date Type Department Care Team Description 03/22/2022 Telephone Hematology/Oncology [facility] [address] Nik Melo MD 200 [facility] [place] [address] transfer of records Allergies Active Allergy Reactions Severity Noted Date [...] times a day. As needed 0 Active [place]-3 Fatty Acids (FISH OIL) 1000 MG Capsule [...] Telephone Encounter - Venecia Carlin CMA - 03/22/2022 11:[address] Melo's office note and [facility] Fax confirmation received. documented in this encounter Plan of Treatment Upcoming Encounters Date Type Specialty Care Team Description 03/29/2022 Office Visit Urology Cm Rhodes MD [address] [address] [place] [address] 04/18/2022 Laboratory Laboratory [place], Lab Scenery [address] [place] [address] 04/19/2022 Hem/Onc Treatment Hematology Oncology [place], Chair 11 Hem Onc Scenery [address] [place] [address] 05/16/2022 Laboratory Laboratory [place], Lab Scenery [address] [place] [address] 05/17/2022 Hem/Onc Treatment Hematology Oncology [place], Chair 2 Hem Onc Scenery [address] [place] [address] 06/05/2022 Imaging Radiology 06/13/2022 Laboratory Laboratory [place], Lab Scenery [address] [place] [address] 06/14/2022 Office Visit Hematology Oncology Nik Melo MD 200 [facility], [place] [address] 06/14/2022 Hem/Onc Treatment Hematology Oncology Health Maintenance [...] of this encounter Implants Implanted Type Area Betting Agency Counter Clerk Device Identifier Shelf Expiration Date Model / Serial / Lot Cath Power Port 6fr Clearvue - [id number] Implanted:Qty : 1 on 08/10/2021 by Alexander Rodriguez MD at OR [facility] Left: Subclavian CR BARD : PERIPHERAL VASCULAR 08/21/2021 [id number] / / documented as of this encounter Advance Directives Documents on File Type Date Recorded Patient Sheet Metal Worker Supervisor Expl 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 Care Teams Plating Operator Relationship Specialty Start Date End Date Hortencia Leal PA-C [address] [facility] [address] PCP - General Physician Industrial Maintenance Manager 02/08/18 documented as of this encounter
--- OUTSIDE RECORDS SUMMARY | 2023-06-27 07:48 | External Medical Summary | Summary of Care ---
Author Name Unknown Organization [place] [address] Care Team Providers Care Weigh Box Tender Name Role Phone Hortencia Leal PA-C Primary Care Provid er Encounter Details Date Type Department Care Team Description 05/15/2022 Orders Only Hematology/Oncology [facility] 200 [place] [address] Nik Melo MD 200 [place] [address] Allergies Active Allergy Reactions Severity Noted Date Comments Amlodipine 11/02/2020 dizziness Codeine Sulfate Other (Please comment) 10/26/19 11 hyperactivity Hydrochlorothiazide 11/02/2020 hypercalcemia Oxaliplatin 02/09/2022 Infusion related reaction documented as of this encounter (statuses as of 05/15/2022) Medications Medication Sig Dispensed Refills Start Date [...] times a day. 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 [address] 05/18/2022 Hem/Onc Treatment Hematology Oncology [place], Chair 4 Hem Onc [facility] 200 [place] [address] 06/05/2022 Imaging Radiology 06/13/2022 [facility] [place] [address] 06/14/2022 Office Visit Hematology Oncology Nik Melo MD 200 [place] [address] 06/14/2022 Hem/Onc Treatment Hematology Oncology 04/04/2023 Office Visit Urology Cm Rhodes MD [address] [place] [address] Health Maintenance Due Date Last Done [...] of this encounter Implants Implanted Type Area Community Board Member Device Identifier Shelf Expiration Date Model / Serial / Lot Cath Power Port 6fr Clearvue - [id number] Implanted:Qty : 1 on 08/10/2021 by Alexander Rodriguez MD at [facility] Left: Subclavian CR BARD : PERIPHERAL VASCULAR 08/21/2021 [id number] / / documented as of this encounter Advance Directives Documents on File Type Date Recorded Patient Oil Lease Operator Expl 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 Care Teams Weigh Box Tender Relationship Specialty Start Date End Date Hortencia Leal PA-C [address] [facility], [place] [address] PCP - General Physician Propellant Charge Zone Assembler 02/08/18 documented as of this encounter
--- OUTSIDE RECORDS SUMMARY | 2023-06-27 07:48 | External Medical Summary ---
Author Name Unknown Address Unknown Organization K09:[facility] [place] [address] Laboratory Report Ordering Provider Test Date Status SHAY CH 04/18/2022 10:21:13 Final Observation Date Value Abnormality Reference (Units ) Status SYNC LEUKOCYTES IN BLOOD BY AUTOMATED COUNT 04/18/2022 10:21:13 5.08 4.00-10.80 (K/uL) Final Segs 04/18/2022 10:21:13 60.7 40.0-75.0 (%) Final Lymphs % 04/18/2022 10:21:13 23.8 18.0-42.0 (%) Final Monos 04/18/2022 10:21:13 11.2 Above high normal 1.0-11.0 (%) Final Eosinophils 04/18/2022 10:21:13 3.9 0.0-6.0 (%) Final Basos 04/18/2022 10:21:13 0.4 0.0-2.0 (%) Final Absolute Segs 04/18/2022 10:21:13 3.08 1.80-7.70 (K/uL) Final Lymphs, absolute 04/18/2022 10:21:13 1.21 1.00-4.80 (K/ul) Final Monos, Abs 04/18/2022 10:21:13 0.57 0.00-1.10 (K/uL) Final Eos, Abs 04/18/2022 10:21:13 0.20 0.00-0.70 (K/uL) Final Basos, Abs 04/18/2022 10:21:13 0.02 0.00-0.20 (K/uL) Final Performing Location [facility] [place] [address]
--- OUTSIDE RECORDS SUMMARY | 2023-06-27 07:48 | External Medical Summary ---
Author Name Unknown Address Unknown Organization K01:[facility] [address] [place] [address] Laboratory Report Ordering Provider Test Date Status ZEUS STOVER 04/18/2022 10:21:13 Final Observation Date Value Abnormality Reference (Units ) Status PSA 04/18/2022 10:21:13 0.05 <4.10 (ng/ mL) Final Performing Location [facility] [address] [place] [address]
--- OUTSIDE RECORDS SUMMARY | 2023-06-27 07:48 | External Medical Summary | Summary of Care ---
Author Name Unknown Organization [facility] [address] Care Team Providers Care Resident Hall Director Name Role Phone Hortencia Leal PA-C Primary Care Provid er Encounter Details Date Type Department Care Team Description 03/23/2022 Orders Only Outcomes Research Department [address] [place] [address] [place] CHRA My[facility] Research Other*[id number] Allergies Active Allergy Reactions Severity Noted Date Comments Amlodipine 11/02/2020 dizziness Codeine Sulfate Other (Please comment) 10/26/19 11 hyperactivity Hydrochlorothiazide 11/02/2020 hypercalcemia Oxaliplatin 02/09/2022 Infusion related reaction documented as of this encounter (statuses as of 03/23/2022) Medications Medication Sig Dispensed Refills Start Date [...] times a day. 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 documented as of this encounter (statuses as of 03/23/2022) Immunizations Name Administration Dates Next Due COVID-19 [...] Office Visit Urology Cm Rhodes MD [address] [address] [place] [address] 04/18/2022 Laboratory Laboratory [place], Lab Scenery [address] [place] [address] 04/19/2022 Hem/Onc Treatment Hematology Oncology [place], Chair 11 Hem Onc Scenery [address] [place] [address] 05/16/2022 Laboratory Laboratory [place], Lab Scenery [address] [place] [address] 05/17/2022 Hem/Onc Treatment Hematology Oncology [place], Chair 2 Hem Onc Scenery [address] [place] [address] 06/05/2022 Imaging Radiology 06/13/2022 Laboratory Laboratory [place], Lab Scenery [address] [place] [address] 06/14/2022 Office Visit [facility]ematology Oncology [facility] [address] 06/14/2022 Hem/Onc Treatment Hematology Oncology Scheduled Orders Name Type Priority Associated Diagnoses Orde r Schedule MYCODE SUBSEQUENT ADULT Lab Routine MyCode Research Other*[id number] Every 6 Months for 2 Occurrences starting 03/23/2022 until 04/12/2023 Health Maintenance Due Date Last Done Comments [...] of this encounter Implants Implanted Type Area Solar Design Engineer Device Identifier Shelf Expiration Date Model / Serial / Lot Cath Power Port 6fr Clearvue - [id number] Implanted:Qty : 1 on 08/10/2021 by Alexander Rodriguez MD [place] [facility] Left: Subclavian CR BARD : PERIPHERAL VASCULAR 08/21/2021 [id number] / / documented as of this encounter Visit Diagnoses Diagnosis MyCode Research Other*[id number] documented in this encounter Advance Directives Documents on File Type Date Recorded Patient Elevator Tender Expl 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 Care Teams Resident Hall Director Relationship Specialty Start Date End Date Hortencia Leal PA-Harjeet [address] [facility] [address] PCP - General Physician Gum Dipper 02/08/18 documented as of this encounter
--- OUTSIDE RECORDS SUMMARY | 2023-06-27 07:48 | External Medical Summary | Summary of Care ---
Author Name Unknown Organization [place] [address] Care Team Providers Care Assistant Financial Accountant Name Role Phone Hortencia Leal PA-C Primary Care Provid er Reason for Visit * Reason Comments Chemotherapy Opdivo D1C2 * Evaluate & Treat - Unlimited Visits (Within 30 days (routine)) - Authorized Specialty Diagnoses / Procedures Referred By Lizzie reno Referred To Contact Hematology Oncology Diagnoses Adenocarcinoma esophagus Procedures Eval and treat Hortencia Leal PA-C [address] [facility] [place] [address] Referral ID Status Reason Start Date Expiration Date Visits Requested Visits Authorized [id number] Authorized Specialty Services Required 10/26/2021 10/27/[phone] Encounter Details Date Type Department Care Team Description 03/22/2022 Hem/Onc Treatment Hematology/Oncology Treatment, [place] [address] [place] [id number] [place], Chair 11 Hem Onc Scenery 200 [facility] [place] [address] 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 As needed 0 Active [place]-3 Fatty Acids (FISH OIL) 1000 MG Capsule [...] Sign Reading Time Taken Comments Blood Pressure 152/86 03/22/2022 11:00 AM EDT Pulse - - Temperature - - Respiratory Rate - - Oxygen Saturation - - Inhaled Oxygen Concentration - - Weight - - Height - - Body Mass Index - - documented in this encounter Nursing Notes * Danielle Calvert RN - 03/22/2022 11:55 AM EDT Functional status at today's visit: Restricted [...] No coverage. * Danielle Calvert RN - 03/22/2022 10:09 AM EDT Chair 7, Opdivo. Pt seen by Dr. [...] Office Visit Urology Cm Rhodes MD [address] [address] [place] [address] 04/18/2022 Laboratory Laboratory [place], Lab Scenery 200 [facility] [place] [address] 04/19/2022 Hem/Onc Treatment Hematology Oncology [place], Chair 11 Hem Onc Scenery 200 [facility] [place] [address] 05/16/2022 Laboratory Laboratory [place], Lab Scenery 200 [facility] [place] [address] 05/17/2022 Hem/Onc Treatment Hematology Oncology [place], Chair 2 Hem Onc Scenery [address] [place] [address] 06/05/2022 Imaging Radiology 06/13/2022 Laboratory Laboratory [place], Lab Scenery 200 [facility] [place] [address] 06/14/2022 Office Visit Hematology Oncology Nik Melo MD [address] [place] [address] 06/14/2022 Hem/Onc Treatment Hematology Oncology Health Maintenance [...] of this encounter Implants Implanted Type Area Underliner Device Identifier Shelf Expiration Date Model / Serial / Lot Cath Power Port 6fr Clearvue - [id number] Implanted:Qty : 1 on 08/10/2021 by Alexander Rodriguez MD at [facility] Left: Subclavian CR BARD : PERIPHERAL VASCULAR 08/21/2021 [id number] / / documented as of this encounter [...] ONCE PRN Other, Hypersensitivity Reaction, Starting on Sun03/22/22 at 0944, Until Sun03/23/22 at 0943, For 24 hours EPINEPHrine 1 MG/ML inj 0.3 mg 0.3 mg, Intramuscular, ONCE PRN Other, Hypersensitivity Reaction or Anaphylaxis, Starting on Sun03/22/22 at 0944, Until Chandrika 03/23/22 at 0943, For 24 hours hEParin 100 UNIT/ML Lock Flush inj 500 Units 500 Units (5 mL), IV Lock, PRN Other, IV Flush, Starting on Sun03/22/22 at 0944, Until Chandrika 03/23/22 at 0943, For 24 hours, Do not flush if lock, PICC, or central line not in place; IV infusing or unable to flush. Given 03/22/2022 11:04 AM EDT 500 Units Hydrocortisone Na Succinate PF (Solu-Cortef) inj 100 mg 100 mg, IV Push, ONCE PRN Other, Hypersensitivity Reaction, Starting on Sun03/22/22 at 0944, Until Chandrika 03/23/22 at 0943, For 24 hours NSS infusion 500 mL, Intravenous, at 50 mL/hr, CONTINUOUS, Starting on Sun03/22/22 at 1045, Until Sun03/22/22 at 2044 Start Infusion 03/22/2022 9:40 AM EDT 500 mL 50 mL/hr sodium chloride 0.9 % flush/inj 10 mL 10 mL, IV Push, PRN Other, IV Flush, Starting on Sun03/22/22 at 0944, Until Chandrika 03/23/22 at 0943, For 24 hours, Do not flush if lock, PICC, or central line not in place; IV infusing or unable to flush. Given 03/22/2022 11:04 AM EDT 10 mL Inactive Administered Medications [...] (0.2 micrometer-1.2 micrometer), ONCE, 1 dose, On Sun03/22/22 at 1100 Start Infusion 03/22/2022 10:30 AM EDT 480 mg 200 mL/hr documented in this encounter Advance Directives Documents on File Type Date Recorded Patient Boilermaker Apprentice Expl 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 Care Teams Assistant Financial Accountant Relationship Specialty Start Date End Date Hortencia Leal PA-C [address] [facility], [place] [address] PCP - General Physician Police Clerk 02/08/18 documented as of this encounter
--- OUTSIDE RECORDS SUMMARY | 2023-06-27 07:48 | External Medical Summary ---
Author Name Unknown Address Unknown Organization K09:[facility] [place] [address] Laboratory Report Ordering Provider Test Date Status SHAY CH 04/18/2022 10:21:13 Final Observation Date Value Abnormality Reference (Units ) Status WBC, Total 04/18/2022 10:21:13 5.08 4.00-10.8 0 (K/uL) Final RBC 04/18/2022 10:21:13 3.75 4.50-5.25 (M/uL) Final Hemoglobin 04/18/2022 10:21:13 12.3 Below low normal 14 .0-16.8 (g/dL) Final HCT 04/18/2022 10:21:13 37.2 Below low normal 40. 0-48.4 (%) Final MCV 04/18/2022 10:21:13 99.2 82.0-99.5 (fL) Final MCH 04/18/2022 10:21:13 32.8 27.0-34.0 (pg) Final MCHC 04/18/2022 10:21:13 33.1 32.0-36.0 (g/dL) Final RDW 04/18/2022 10:21:13 14.1 11.5-15.5 (%) Final Platelets 04/18/2022 10:21:13 102 Below low normal 140 -400 (K/uL) Final MPV 04/18/2022 10:21:13 8.9 6.6-11.1 ( fL) Final Performing Location [facility] [place] [address]
--- OUTSIDE RECORDS SUMMARY | 2023-06-27 07:48 | External Medical Summary | Summary of Care ---
Author Name Unknown Organization [place] [address] Care Team Providers Care Machine Crater Name Role Phone Hortencia Leal PA-C Primary Care Provid er Reason for Visit * Reason Comments Chemotherapy Opdivo * Evaluate & Treat - Unlimited Visits (Within 30 days (routine)) - Authorized Specialty Diagnoses / Procedures Referred By Lizzie reno Referred To Contact Hematology Oncology Diagnoses Adenocarcinoma esophagus Procedures Eval and treat Hortencia Leal PA-C [address] [facility] [place] [address] Referral ID Status Reason Start Date Expiration Date Visits Requested Visits Authorized [id number] Authorized Specialty Services Required 10/26/2021 10/27/[phone] Encounter Details Date Type Department Care Team Description 04/19/2022 Hem/Onc Treatment Hematology/Oncology Treatment, [address] [place] [phone] [place], Chair 11 Hem Onc [facility] 200 [facility] [place] [address] 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 documented as of this encounter (statuses as of 04/19/2022) Immunizations Name Administration Dates Next Due COVID-19 [...] Sign Reading Time Taken Comments Blood Pressure 161/91 04/19/2022 11:46 AM EDT Pulse 60 04/19/2022 11:46 AM EDT Temperature 36.5 C (97.7 F) 04/19/2022 1 1:25 AM EDT Respiratory Rate 18 04/19/2022 11:2 5 AM EDT Oxygen Saturation 96% 04/19/2022 11: 25 AM EDT Inhaled Oxygen Concentration - - Weight 78.8 kg (173 lb 12.8 oz) 022 11:25 AM EDT Height - - Body Mass Index 29.83 08/10/2021 8:15 AM EDT documented in this encounter Nursing Notes * Danielle Calvert, LAN - 04/19/2022 4:31 PM EDT Pt reported he stopped taking all medications approximately 2 weeks ago. After rechecking BP, pt stated he will resume all meds because he now "knows it's important." Pt reports fatigue, but otherwise denies pain, neuropathy, N/V, and signs of infection. [facility] VAD flushed with 10 ml NSS and [...] during treatment today. Discharged in stable condition. RP assisted. * Danielle Calvert RN - 04/19/2022 12:02 PM EDT Chair 8 Labs and BP reviewed with dr. Melo; kelsi to proceed with Opdivo today. VAD accessed; NSS infusing. Safety and Risk for Injury Patient will remain free from injury. Ensure appropriate safety devices are available. Provide and maintain safe environment. documented in this encounter Plan of Treatment Upcoming Encounters Date Type Specialty Care Team Description 05/16/2022 [facility] 200 [facility] [place] [address] 05/18/2022 Hem/Onc Treatment Hematology Oncology [place], Chair 6 Hem Onc Scenery 200 [facility] [address] 06/05/2022 Imaging Radiology 06/13/2022 [facility] [address] 06/14/2022 Office Visit Hematology Oncology Nik Melo MD 200 [facility] [place] [address] 06/14/2022 Hem/Onc Treatment Hematology Oncology 04/04/2023 Office Visit Urology Cm Rhodes MD [address] [address] [place] [address] Health Maintenance Due Date Last Done Comments [...] 04/18/2025 04/18/2022, 03/21/2022, 02/22/2022, Additional history exists Influenza Vaccine (FLU shot) Completed 06/2021, 08/21/2018, 07/14/2017, Additional history exists GARDASIL-HPV IMMUNIZATION SERIES Aged Out No longer eligible based on patient's age to complete this topic MENINGOCOCCAL (MENACTRA/MENVEO) Aged Out No longer eligible based on patient's age to complete this topic documented as of this encounter Implants Implanted Type Area Cabana Attendant Device Identifier Shelf Expiration Date Model / Serial / Lot Cath Power Port 6fr Clearvue - [id number] Implanted:Qty : 1 on 08/10/2021 by Alexander Rodriguez MD at [place] [facility] Left: Subclavian CR BARD : PERIPHERAL VASCULAR 08/21/2021 [id number] / / documented as of this encounter [...] ONCE PRN Other, Hypersensitivity Reaction, Starting on Sun04/19/22 at 1201, Until Chandrika 04/20/22 at 1200, For 24 hours EPINEPHrine 1 MG/ML inj 0.3 mg 0.3 mg, Intramuscular, ONCE PRN Other, Hypersensitivity Reaction or Anaphylaxis, Starting on Sun04/19/22 at 1201, Until Chandrika 04/20/22 at 1200, For 24 hours hEParin 100 UNIT/ML Lock Flush inj 500 Units 500 Units (5 mL), IV Lock, PRN Other, IV Flush, Starting on Sun04/19/22 at 1201, Until Chandrika 04/20/22 at 1200, For 24 hours, Do not flush if lock, PICC, or central line not in place; IV infusing or unable to flush. Given 04/19/2022 1:01 PM EDT 500 Units Hydrocortisone Na Succinate PF (Solu-Cortef) inj 100 mg 100 mg, IV Push, ONCE PRN Other, Hypersensitivity Reaction, Starting on Sun04/19/22 at 1201, Until Chandrika 04/20/22 at 1200, For 24 hours NSS infusion 500 mL, Intravenous, at 50 mL/hr, CONTINUOUS, Starting on Sun04/19/22 at 1315, Until Sun04/19/22 at 2314 Start Infusion 04/19/2022 12:09 PM EDT 500 mL 50 mL/hr sodium chloride 0.9 % flush/inj 10 mL 10 mL, IV Push, PRN Other, IV Flush, Starting on Sun04/19/22 at 1201, Until Chandrika 04/20/22 at 1200, For 24 hours, Do not flush if lock, PICC, or central line not in place; IV infusing or unable to flush. Given 04/19/2022 1:01 PM EDT 10 mL Inactive Administered Medications [...] (0.2 micrometer-1.2 micrometer), ONCE, 1 dose, On Sun04/19/22 at 1245 Start Infusion 04/19/2022 12:29 PM EDT 480 mg 200 mL/hr documented in this encounter Advance Directives Documents on File Type Date Recorded Patient Lean Manager Expl 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 Care Teams Machine Crater Relationship Specialty Start Date End Date Hortencia Leal PA-C [address] [facility] [address] PCP - General Physician Malware Analyst 02/08/18 documented as of this encounter
--- OUTSIDE RECORDS SUMMARY | 2023-06-27 07:48 | External Medical Summary | Summary of Care ---
Author Name Unknown Organization [place] [address] Care Team Providers Care Director Of Medical Education Name Role Phone Hortencia Leal PA-C Primary Care Provid er Encounter Details Date Type Department Care Team Description 04/14/2022 Orders Only Hematology/Oncology [facility] 200 [place] [address] Nik Melo MD 200 [place] [address] Allergies Active Allergy Reactions Severity Noted Date Comments Amlodipine 11/02/2020 dizziness Codeine Sulfate Other (Please comment) 10/26/19 11 hyperactivity Hydrochlorothiazide 11/02/2020 hypercalcemia Oxaliplatin 02/09/2022 Infusion related reaction documented as of this encounter (statuses as of 04/14/2022) Medications Medication Sig Dispensed Refills Start Date [...] times a day. 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 documented as of this encounter (statuses as of 04/14/2022) Immunizations Name Administration Dates Next Due COVID-19 [...] Encounters Date Type Specialty Care Team Description 04/18/2022 Laboratory Laboratory [place], Lab Scenery 200 [place] [address] 04/19/2022 Hem/Onc Treatment Hematology Oncology [place], Chair 11 Hem Onc [facility] 200 [place] [address] 05/16/2022 Laboratory Laboratory [facility] Lab [facility] 200 [place] [address] 05/18/2022 Hem/Onc Treatment Hematology Oncology [place], Chair 6 Hem Onc Scenery 200 [place] [address] 06/05/2022 Imaging Radiology 06/13/2022 Laboratory Laboratory [facility] Lab Scenery 200 [place] [address] 06/14/2022 Office Visit Hematology Oncology Nik Melo MD 200 [place] [address] 06/14/2022 Hem/Onc Treatment Hematology Oncology 04/04/2023 Office Visit Urology Cm Rhodes MD [address] [place] [address] [place] [address] Health Maintenance Due Date [...] of this encounter Implants Implanted Type Area Ton Container Shipper Device Identifier Shelf Expiration Date Model / Serial / Lot Cath Power Port 6fr Clearvue - [id number] Implanted:Qty : 1 on 08/10/2021 by Alexander Rodriguez MD at OR [facility] [place] Left: Subclavian CR BARD : PERIPHERAL VASCULAR 08/21/2021 [id number] / / documented as of this encounter Advance Directives Documents on File Type Date Recorded Patient Civil Engineer'S Aide Expl anation Advanced Directive Advanced Directive Advanced [...] were consensually agreed upon. Care Teams Director Of Medical Education Relationship Specialty Start Date End Date Hortencia Leal PA-C [address] [facility] [address] PCP - General Physician Monkey Trainer 02/08/18 documented as of this encounter
--- OUTSIDE RECORDS SUMMARY | 2023-06-27 07:48 | External Medical Summary | Summary of Care ---
Author Name Unknown Organization [place] [address] Care Team Providers Care Quality Process Lead Name Role Phone Hortencia Leal PA-C Primary Care Provid er Reason for Visit * Reason Comments Outpatient Testing * Evaluate & Treat - Unlimited Visits (Within 30 days (routine)) - Authorized Specialty Diagnoses / Procedures Referred By Lizzie reno Referred To Contact Hematology Oncology Diagnoses Adenocarcinoma esophagus Procedures Eval and treat Hortencia Leal PA-C [address] [place] [address] Referral ID Status Reason Start Date Expiration Date Visits Requested Visits Authorized [id number] Authorized Specialty Services Required 10/26/2021 10/27/[phone] Encounter Details Date Type Department Care Team Description 04/18/2022 Laboratory Laboratory [place] [address] [place] [id number] Enrique Castañeda [address] [place] [place] [address] 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 documented as of this encounter (statuses as of 04/18/2022) Immunizations Name Administration Dates Next Due COVID-19 [...] Encounters Date Type Specialty Care Team Description 04/19/2022 Hem/Onc Treatment Hematology [place], Chair 11 Hem Onc Scenery 200 [facility] [place] [address] 05/16/2022 Laboratory Laboratory [place], Lab Scenery [address] [facility] [place] [address] 05/18/2022 Hem/Onc Treatment Hematology Oncology [place], Chair 6 Hem Onc Scenery [address] [place] [address] 06/05/2022 Imaging Radiology 06/13/2022 Laboratory Laboratory [place], Lab Scenery [address] [facility] [place] [address] 06/14/2022 Office Visit Hematology Oncology Nik Melo MD [address] [place] [address] 06/14/2022 Hem/Onc Treatment Hematology Oncology 04/04/2023 Office Visit Urology Cm Rhodes MD [address] [facility] [address] [place] [address] Pending Results Name Type Priority Associated Diagnoses Date /Time COMPREHENSIVE METABOLIC PANEL Lab STAT 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) 04/18/2022 10:21 AM EDT TSH WITH FREE T4 IF INDICATED Lab STAT 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) Encounter for long-term (current) use of medications 04/18/2022 10:21 AM EDT Health Maintenance Due Date Last [...] of this encounter Implants Implanted Type Area Dry Goods Inspector Device Identifier Shelf Expiration Date Model / Serial / Lot Cath Power Port 6fr Clearvue - [id number] Implanted:Qty : 1 on 08/10/2021 by Alexander Rodriguez MD [place] [facility] [place]: Subclavian CR BARD : PERIPHERAL VASCULAR 08/21/2021 [id number] / / documented as of this encounter Procedures Procedure Name Priority Date/Time Associated Diagnosis Comments DIFFERENTIAL, AUTOMATED STAT 04/18/2022 10:21 AM EDT 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) CBC WITH WBC DIFFERENTIAL STAT 04/18/2022 10:21 AM EDT 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) CBC STAT 04/18/2022 10:21 AM EDT 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) documented in this encounter Results * (ABNORMAL) DIFFERENTIAL, AUTOMATED (04/18/2022 10:21 AM EDT) WBC 5.08 4.00 - 10.80 K/uL [facility] 56-02 Neutrophils % 60.7 40.0 - 75.0 % LABORATORY [facility] 56-02 Lymphocytes % 23.8 18.0 - 42.0 % LABORATORY [facility] 56-02 Monocytes % 11.2(H) 1.0 - 11.0 % LABORATORY [facility] 56-02 Eosinophils % 3.9 0.0 - 6.0 % LABORATORY [facility] 56-02 Basophils % 0.4 0.0 - 2.0 % LAB[facility]ATORY [facility] 56-02 Absolute Neutrophils 3.08 1.80 - 7.70 K/uL [facility] 56-02 Absolute Lymphocytes 1.21 1.00 - 4.80 K/ul [facility] 56-02 Absolute Monocytes 0.57 0.00 - 1.10 K/uL [facility] 56-02 Absolute Eosinophils 0.20 0.00 - 0.70 K/uL [facility] 56-02 Absolute Basophils 0.02 0.00 - 0.20 K/uL [facility] 56-02 Specimen Blood - Venous blood specime n (specimen) [facility] 56-[address] [place] [address] * (ABNORMAL) CBC (04/18/2022 10:21 AM EDT) WBC 5.08 4.00 - 10.80 K/uL [facility] 56-02 RBC 3.75 4.50 - 5.25 M/uL [facility] 56-02 HGB 12.3(L) 14.0 - 16.8 g/dL [address] HCT 37.2(L) 40.0 - 48.4 % LABORATORY [facility] - MCV 99.2 82.0 - 99.5 fL LABORATORY [facility] - MCH 32.8 27.0 - 34.0 pg LABORATORY [facility] - MCHC 33.1 32.0 - 36.0 g/dL LABORATORY [place] - RDW 14.1 11.5 - 15.5 % LABORATORY [facility] - PLT 102(L) 140 - 400 K/uL LABORATORY [facility] - MPV 8.9 6.6 - 11.1 fL LABORATORY [facility] - Specimen Blood - Venous blood specime n (specimen) Performing Organization Address City/State/[facility] Co de Phone Number LABORATORY [place] [address] [place], [place] [id number] documented in this encounter Visit Diagnoses Diagnosis 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) Malignant neoplasm of other specified sites of stomach Encounter for long-term (current) use of medications Encounter for long-term (current) use of other medications documented in this encounter Advance Directives Documents on File Type Date Recorded Patient Metal Roofer Expl 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 Care Teams Quality Process Lead Relationship Specialty Start Date End Date Hortencia Leal PA-C [address] [facility] [address] PCP - General Physician Accounts Supervisor 02/08/18 documented as of this encounter
--- OUTSIDE RECORDS SUMMARY | 2023-06-27 07:48 | External Medical Summary | Summary of Care ---
Author Name Unknown Organization [facility] Address [facility] [place] [address] Care Team Providers Care Psychology Lecturer Name Role Phone Hortencia Plata PA-C Primary Care Provid er Reason for Visit * Reason Comments Follow Up 4 months Encounter Details Date Type Department Care Team Description 03/29/2022 Office Visit Urology, [facility] [address] [facility] [place] [address] Cm Rhodes MD 27 [facility] [address] [place] [address] Prostate cancer (HCC)*; Kidney stones; Kidney stone Allergies Active Allergy Reactions Severity Noted Date Comments Amlodipine 11/02/2020 dizziness Codeine Sulfate Other (Please comment) 10/26/19 11 hyperactivity Hydrochlorothiazide 11/02/2020 hypercalcemia Oxaliplatin 02/09/2022 Infusion related reaction documented as of this encounter (statuses as of 03/29/2022) Medications Medication Sig Dispensed Refills Start Date [...] times a day. 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 documented as of this encounter (statuses as of 03/29/2022) Immunizations Name Administration Dates Next Due COVID-19 [...] Sign Reading Time Taken Comments Blood Pressure - - Pulse - - Temperature 37.4 C (99.3 F) 03/29/2022 3:43 PM ED T Respiratory Rate - - Oxygen Saturation - - Inhaled Oxygen Concentration - - Weight 77.2 kg (170 lb 1.6 oz) 03/29/2022 3:43 P M EDT Height - - Body Mass Index 29.2 08/10/2021 8:15 AM EDT documented in this encounter Progress Notes * Cm Rhodes MD - 03/29/2022 3:45 PM EDT [id number] PCP: HORTENCIA PLATA [address] [place] [address] [phone] Heath Austin is a 76 year old male, who presents for delayed follow-up of his history of prostate cancer. Patient's history of metastatic gastric cancer is noted. Past notes reviewed including visit in July of 2021. No recent Lupron has been provided. Previous PSA in November of 2021 is negative. Prior history of stone disease is noted. PET scan in January of 2022 demonstrates no evidence of stone. He notes his since his last visit from [place] followed by [facility]. He notes he continuesto follow with nephrology and Rad Onc. He feels his urinary control is "all right." Prostate cancer: Prostatectomy October [address] Marie. 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 Lupron from Aug 2017to 2019. Restarted in 2020 due to a rising PSA, last injection March 2021. PSA Results: Lab Results Component Value Date/Time PSA - [facility] <0.02 11/29/2021 09:32 AM PSA - [facility] <0.02 08/03/2021 01:48 PM PSA - [facility] <0.02 01/24/2021 10:11 AM PSA - [facility] 0.08 11/01/2020 10:00 AM [...] mouth 2 times a day. As needed [place]-3 Fatty Acids (FISH OIL) 1000 MG Capsule [...] status: Never Smoker Smokeless tobacco: Never Used Substance Use Topics Alcohol use: No Vaping/E-Cigarette Use Vaping/E-Cigarette Use Never User Vaping/E-Cigarette Substances Vaping/E-Cigarette Devices Family History 1 item Father Colon cancer Past Surgical History: Procedure Laterality Date COLONOSCOPY COLONOSCOPY, DIAGNOSTIC (RECTUM) 03/07/2013 path shows adenomatous polyp repeat in 5 years COLONOSCOPY, DIAGNOSTIC (RECTUM) 04/12/2018 adenomatous polyps, diverticulosis, repeat 3 yrs/COLONOSCOPY FLEXIBLE PROXIMAL DIAGNOSTIC performedby Roz Tracey MD at [facility] COLONOSCOPY, DIAGNOSTIC (RECTUM) 07/15/2021 COLONOSCOPY FLEXIBLE PROXIMAL DIAGNOSTIC performed by Roz Tracey MD at [facility] EGD, FLEXIBLE, DIAGNOSTIC 07/15/2021 ESOPHAGOGASTRODUODENOSCOPY (EGD), FLEXIBLE, TRANSORAL, DIAGNOSTIC performed by Roz Tracey MD at [facility] EGD, W/ENDOSCOPIC US 08/02/2021 ESOPHAGOGASTRODUODENOSCOPY (EGD), FLEXIBLE, TRANSORAL, ENDOSCOPIC ULTRASOUND performed by Brendan Gomez MD at [facility]COPY [facility] INSER TUNN ACC DEV;5 YRS/OLDER N/A 08/10/2021 INSERT TUNNELED CENTRAL VENOUS ACCESS WITH SUBQ PORT performed by Alexander Rodriguez MD at [facility] KNEE ARTHROSCOPY, DIAGNOSTIC 1989 Knee Arthroscopy right LAPAROSCOPY,BIOPSY N/A 08/10/2021 LAPAROSCOPY WITH BIOPSY performed by Alexander Rodriguez MD at [facility] NEEDLE/PUNCH BIOPSY OF PROSTATE 01/05/2011 BIOPSY PROSTATE NEEDLE performed by EYAD MARIE at [facility] PROSTATECTOMY, RETROPUBIC RADICAL, LAP 10/30/2011 ROBOTIC LAPAROSCOPIC PROSTATECTOMY RETROPUBIC RADICAL performed by EYAD MARIE at [facility] REMOVAL OF TONSILS, UNDER AGE 12 Tonsillectomy REPAIR INITIAL INCISIONAL HERNIA 04/18/2012 Laparoscopic ventral hernia repair with 4 x [address] Adams 04/18/12 US ECHO TRANSRECTAL/PROSTATE 01/05/2011 ULTRASOUND TRANSRECTAL performed by EYAD MARIE at [facility] Past Medical History: Diagnosis Date Actinic keratosis [...] E86.0 Constitutional: (-) fever and (-) chills ENT: (-) stridor Cardiovascular: (-) chest pain Male : see HPI Neurology: (+) generalized weakness Psychiatry: (+) depression Physical Exam Constitutional: General: He is not in acute distress. Appearance: He is not toxic-appearing. HENT: Head: Normocephalic. Right Ear: External ear normal. Left Ear: External ear normal. Cardiovascular: Pulses: Normal pulses. Pulmonary: Effort: No respiratory distress. Abdominal: General: There is no distension. Palpations: Abdomen is soft. Skin: Coloration: Skin is pale. Neurological: General: No focal deficit present. Mental Status: He is oriented to person, place, and time. Motor: Weakness present. Impression/Plan: 76 yo male with CAP history, Patient notes he has a rad onc visit in 6 months - we will therefore plan on seeing in 1 year with a PSA value. PSA with next labs. We are pleased with the lack of stone on PET imaging. Patient is satisfied with his voiding. Will therefore leave as is. Contact us sooner PRN issues. Cm Rhodes MD 4:11 PM 03/29/2022 documented in this encounter Nursing Notes * Hortencia Escalera, MED ASSIST - 03/29/2022 3:44 PM EDT Patient presents for four month follow up of hx of kidney stones and prostate cancer. PSA > 0.02 as of 11-29-21. Pt has no new urinary complaints. documented in this encounter Plan of Treatment Upcoming Encounters Date Type Specialty Care Team Description 04/18/2022 Laboratory Laboratory [place], Lab Scenery [address] [place] [address] 04/19/2022 Hem/Onc Treatment Hematology Oncology [place], Chair 11 Hem Onc Scenery 200 [facility] [place] [address] 05/16/2022 Laboratory Laboratory [place], Lab Scenery 200 [facility] [place] [address] 05/18/2022 Hem/Onc Treatment Hematology Oncology [place], Chair 6 Hem Onc Scenery [address] [place] [place] [place] [address] 06/05/2022 Imaging Radiology 06/13/2022 Laboratory Laboratory [place], Lab Scenery 200 [facility] [place] [address] 06/14/2022 Office Visit Hematology Oncology Nik Melo MD 200 [facility] [place] [address] 06/14/2022 Hem/Onc Treatment Hematology Oncology 04/04/2023 Office Visit Urology Cm Rhodes MD [address] [place] [address] Scheduled Orders Name Type Priority Associated Diagnoses Orde r Schedule PSA Lab Routine Prostate cancer (HCC) Ordered: 03/29/2022 Health Maintenance Due Date Last Done Comments [...] of this encounter Implants Implanted Type Area Knock Out Hand Device Identifier Shelf Expiration Date Model / Serial / Lot Cath Power Port 6fr Clearvue - [id number] Implanted:Qty : 1 on 08/10/2021 by Alexander Rodriguez MD at OR [facility] [place] Left: Subclavian CR BARD : PERIPHERAL VASCULAR 08/21/2021 [id number] / / documented as of this encounter Visit Diagnoses Diagnosis Prostate cancer (HCC)- Primary Malignant neoplasm of prostate Kidney stones Calculus of kidney Kidney stone Calculus of kidney documented in this encounter Advance Directives Documents on File Type Date Recorded Patient Ice Cream Vendor Expl 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 Care Teams Psychology Lecturer Relationship Specialty Start Date End Date Hortencia Plata PA-C [address] [facility] [address] PCP - General Physician Dry Can Tender 02/08/18 documented as of this encounter
--- OUTSIDE RECORDS SUMMARY | 2023-06-27 07:48 | External Medical Summary ---
Author Name Unknown Address Unknown Organization [id number]:LAB[facility]ATORY [facility] [place] [address] [place] [address] Laboratory Report Ordering Provider Test Date Status SHAY CH 04/18/2022 10:21:13 Final Observation Date Value Abnormality Reference (Units ) Status TSH 04/18/2022 10:21:13 1.12 0.27-4.20 (uIU/mL) Final Performing Location LAB[facility]ORY [facility] - [address] [place] [address]
--- OUTSIDE RECORDS SUMMARY | 2023-06-27 07:49 | External Medical Summary ---
Author Name Unknown Address Unknown Organization [id number]:[facility]ORY [place] [address] Laboratory Report Ordering Provider Test Date Status SHAY CH 02/22/2022 10:25:40 Final Observation Date Value Abnormality Reference (Units ) Status WBC, Total 02/22/2022 10:25:40 4.21 4.00-10.8 0 (K/uL) Final RBC 02/22/2022 10:25:40 3.06 Below low normal 4.5 0-5.25 (M/uL) Final Hemoglobin 02/22/2022 10:25:40 10.5 Below low normal 14 .0-16.8 (g/dL) Final HCT 02/22/2022 10:25:40 31.9 Below low normal 40. 0-48.4 (%) Final MCV 02/22/2022 10:25:40 104.2 Above high normal 82 .0-99.5 (fL) Final MCH 02/22/2022 10:25:40 34.3 Above high normal 27 .0-34.0 (pg) Final MCHC 02/22/2022 10:25:40 32.9 32.0-36.0 (g/dL) Final RDW 02/22/2022 10:25:40 15.7 Above high normal 11 .5-15.5 (%) Final Platelets 02/22/2022 10:25:40 88 Below low normal 140 -400 (K/uL) Final MPV 02/22/2022 10:25:40 8.9 6.6-11.1 ( fL) Final Performing Location [facility] [place] [address]
--- OUTSIDE RECORDS SUMMARY | 2023-06-27 07:49 | External Medical Summary ---
Author Name Unknown Address Unknown Organization K01:LAB[facility]ATORY [facility] [place] - [address] [place] [address] Laboratory Report Ordering Provider Test Date Status ABBIE MACIAS 02/22/2022 10:25:40 Final Observation Date Value Abnormality Reference (Units ) Status MYCODE SPECIMEN-SST 02/22/2022 10:25:40 Freezing of extracted DNA, whole blood and/or serum. Final Performing Location LABORATORY [facility] - [address] [place] [address]
--- OUTSIDE RECORDS SUMMARY | 2023-06-27 07:49 | External Medical Summary | Summary of Care ---
Author Name Unknown Organization [place] [address] Care Team Providers Care Call Manager Name Role Phone Hortencia Leal PA-C Primary Care Provid er Reason for Visit * Reason Comments Outpatient Testing * Evaluate & Treat - Unlimited Visits (Within 30 days (routine)) - Authorized Specialty Diagnoses / Procedures Referred By Lizzie reno Referred To Contact Hematology Oncology Diagnoses Adenocarcinoma esophagus Procedures Eval and treat Hortencia Leal PA-C [address] [place] [address] Referral ID Status Reason Start Date Expiration Date Visits Requested Visits Authorized [id number] Authorized Specialty Services Required 10/26/2021 10/27/[phone] Encounter Details Date Type Department Care Team Description 02/22/2022 Laboratory Laboratory [facility] [place] [address] [place] [id number] Enrique Castañeda [address] [place] [address] [employer] Other*[id number]; 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 documented as of this encounter (statuses as of 02/22/2022) Immunizations Name Administration Dates Next Due COVID-19 [...] Encounters Date Type Specialty Care Team Description 02/22/2022 Hem/Onc Treatment Hematology Oncology Maddy, Chair [address] [place] [address] Arrived 03/22/2022 Laboratory Laboratory [facility] [address] [place] [address] 03/22/2022 Office Visit Hematology Oncology Nik Melo MD 200 [place] [facility] [place] [address] 03/22/2022 Hem/Onc Treatment Hematology Oncology [place], Chair 11 Hem Onc [facility] [place] [address] [place] [address] [place] [address] 03/29/2022 Office Visit Urology Cm Rhodes MD [address] [address] [place] [address] Pending Results Name Type Priority Associated Diagnoses Date /Time MYCODE SUBSEQUENT ADULT Lab Routine [employer] Other*[id number] 02/22/2022 10:25 AM EDT CBC WITH WBC DIFFERENTIAL Lab STAT 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) 02/22/2022 10:25 AM EDT COMPREHENSIVE METABOLIC PANEL Lab STAT 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) 02/22/2022 10:25 AM EDT TSH WITH FREE T4 IF INDICATED Lab STAT 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) Encounter for long-term (current) use of medications 02/22/2022 10:25 AM EDT MYCODE SST1 Lab Routine [employer] Other*[id number] 02/22/2022 10:25 AM EDT MYCODE SST2 Lab Routine [employer] Other*[id number] 02/22/2022 10:25 AM EDT CBC Lab STAT 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) 02/22/2022 10:25 AM EDT DIFFERENTIAL, AUTOMATED Lab STAT 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) 02/22/2022 10:25 AM EDT Health Maintenance Due Date Last Done Comments Pneumococcal Vaccine: 65+ Years (1 of 4 - PCV13) 12/29/1951 Depression Screening, Annual for Pts 12 and Over 1957 DTaP,Tdap,and Td Vaccines (1 - Tdap) 1964 Zoster Vaccines (1 of 2) 12/29/1995 COVID-19 Vaccine (4 - Booster for Moderna series) 03/01/2022 10/01/2021, 02/14/2021, 01/17/2021 COLONOSCOPY-EVERY 3 YRS AGES 18-100 07/15/2024 07/15/2021, 07/15/2021, 04/12/2018, Additional history exists DIABETES SCREEN EVERY 3 YRS-AGE 45 AND ABOVE 02/07/2025 02/07/2022, 01/31/2022, 01/24/2022, Additional history exists Influenza Vaccine (FLU shot) Completed 06/2021, 08/21/2018, 07/14/2017, Additional history exists GARDASIL-HPV IMMUNIZATION SERIES Aged Out No longer eligible based on patient's age to complete this topic MENINGOCOCCAL (MENACTRA/MENVEO) Aged Out No longer eligible based on patient's age to complete this topic documented as of this encounter Implants Implanted Type Area Respiratory Physician Device Identifier Shelf Expiration Date Model / Serial / Lot Cath Power Port 6fr Clearvsebastian - [id number] Implanted:Qty : 1 on 08/10/2021 by Alexander Rodriguez MD [place] [facility] [place]: Subclavian CR BARD : PERIPHERAL VASCULAR 08/21/2021 [id number] / / documented as of this encounter Visit Diagnoses Diagnosis [employer] Other*[id number] 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 Care Teams Call Manager Relationship Specialty Start Date End Date Hortencia Leal PA-C [address] [place] [address] PCP - General Physician Supervisor [employer] 02/08/18 documented as of this encounter
--- OUTSIDE RECORDS SUMMARY | 2023-06-27 07:49 | External Medical Summary ---
Author Name Unknown Address Unknown Organization K09:[facility] [place] [address] Laboratory Report Ordering Provider Test Date Status SAHY CH 02/22/2022 10:25:40 Final Observation Date Value Abnormality Reference (Units ) Status BUN 02/22/2022 10:25:40 20 6-20 (mg/dL) Final Creatinine 02/22/2022 10:25:40 1.7 Above high normal 0.6-1.2 (mg/dL) Final Glomerular filtration rate/1.73 sq M.predicted [Volume Rate/Area] in Serum, Plasma or Blood by Creatinine-based formula (CKD-EPI) 02/22/2022 10:25:40 42 Below low normal >=60 (mL/min) Final Performing Location [facility] [place] [address]
--- OUTSIDE RECORDS SUMMARY | 2023-06-27 07:49 | External Medical Summary | Summary of Care ---
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) Procedures PET CT SKULL BASE TO MID-THIGH Nik Melo MD 200 [facility] [place] [address] Referral ID Status Reason Start Date Expiration Date V isits Requested Visits Authorized [id number] Authorized 06/22/2022 999 999 Reason for Visit * Reason Comments Chemotherapy * Evaluate & Treat - Unlimited Visits (Within 30 days (routine)) - Authorized Specialty Diagnoses / Procedures Referred By Lizzie reno Referred To Contact Hematology Oncology Diagnoses Adenocarcinoma esophagus Procedures Eval and treat Hortencia Leal PA-C [address] [facility] [address] Referral ID Status Reason Start Date Expiration Date Visits Requested Visits Authorized [id number] Authorized Specialty Services Required 10/26/2021 10/27/2022 999 999 Encounter Details Date Type Department Care Team Description 03/22/2022 Office Visit [facility]ematology[facility]Oncology [facility] [address] Nik Melo MD 200 [place] [address] Adenocarcinoma of esophagus metastatic to intra-abdominal lymph [...] Sign Reading Time Taken Comments Blood Pressure 122/66 03/22/2022 8:51 AM EDT Pulse 53 03/22/2022 8:51 AM EDT Temperature 36.3 C (97.4 F) 03/22/2022 8:51 AM ED T Respiratory Rate - - Oxygen Saturation 97% 03/22/2022 8:51 AM EDT Inhaled Oxygen Concentration - - Weight 77.5 kg (170 lb 12.8 oz) 03/22/2022 8:51 AM EDT Height - - Body Mass Index 29.32 08/10/2021 8:15 AM EDT documented in this encounter Progress Notes * Nik Melo MD - 03/22/2022 8:50 AM EDT Outpatient Consult Note Data Source: Patient, Epic record. Data Source: Patient, Epic record. 03/22/2022 8:50 AM [place] [id number] 76 year old Patient Encounter: HEMATOLOGY/ONCOLOGY [facility] Cancer Diagnosis: - Metastatic esophageal cancer - laparoscopic biopsy of the peritoneal nodule which is positive formetastatic disease - Prostate cancer,pT2, Group IIA, Juan 3+4 Current Treatment: - Nivolumab was added on 11/02/2021 - on Eligard for the prostate cancer Previous Treatment: Received total of 9 cycles of FOLFOX. Nivolumab was added on 11/02/2021. Last chemotherapy was on 02/08/2022. He had allergic reaction and subsequently FOLFOX chemotherapy was discontinued and now currently he is on single agent nivolumab. Oncologic History : 75-year-old male with past medical history significant for [...] was consistent with adenocarcinoma moderately differentiated overall [place] score was 3+4=7with perineural invasion. Histopathology was [...] 0.6 cm HISTOLOGIC TYPE: Adenocarcinoma HISTOLOGIC GRADE ([place]): Primary pattern is: Grade 3: single acini [...] 2.1 cm HISTOLOGIC TYPE: Adenocarcinoma HISTOLOGIC GRADE ([place]): Primary pattern is: Grade 3: single acini of variable size and separation, cribriform and papillarypatterns Secondary pattern is: Grade 4: irregular masses of acini and fused epithelium, can show clear cells [place] Score (primary + secondary) = 7: Moderately [...] Category: Benign. Final Interpretation: Benign mesothelial cells. Interval History: During the last cycle of chemotherapy he had severe allergic reaction to oxaliplatin. Subsequently he decided against continuing chemotherapy and agreed to continue nivolumab only. Clinically he is feeling better and stronger without any new symptoms of complain. His appetite is good and gaining weight. He denies any fever, night sweats, headache, dizziness, blurred vision, chest pain palpitation abdominal pain distention bleeding, bruising, nausea, vomiting, change in the bowel habits. LABS/IMAGING: Blood test done yesterday shows WBC count 4.6, hemoglobin 11.5 and platelet count 103. Creatinine is 1.7 the rest of the electrolytes are in acceptable range. REVIEW OF SYSTEMS: General: [...] mouth 2 times a day. As needed [place]-3 Fatty Acids (FISH OIL) 1000 MG [...] Healthy appearing patient in no acute distress There were no vitals taken for this visit. Vitals reviewed. HEENT: No oral or pharyngeal [...] no jointor bony deformity Neurologic: Muscle power 5/5 in all extremities ASSESSMENT: 75-year-old male with history of prostate cancer recently had rising PSA and was started on Eligardwith improvement in the PSA level. He was complaining of generalized weakness and fatigue and had low hemoglobin. He had endoscopy done which shows esophageal mass extending to the stomach. Biopsies consistent with adenocarcinoma and HER2/kristen expression is negative. Patient also had endoscopic ultrasound and PET scan done shows massinvolving the distal esophagus going into the stomach [...] chemotherapy and agreed to continue nivolumab only. Clinically he is doing well with improvement in energy level without any new symptoms or complain. His appetite is good and he is gaining weight. Physical examination is unremarkable. Reviewed all the available blood test result with patient. Discussed with him about diagnosis. For now will continue single agent nivolumab. PLAN: Continue nivolumab on every 4 weeks basis. He will return to clinic for follow- up in 3 months with CBC, CMP, TSH and PET scan. The patient voiced understanding of [...] Nursing Notes * Venecia Carlin CMA - 03/22/2022 8:52 AM EDT Patient identifed by name and birthdate Do you have any concerns about pain management for today's visit? No Living Will or Advance Directive for Health Care as noted on the problem list. [facility] is a way you can talk to your provider on line through e-mail. Would you like to sign up? I can activate it for you? 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) Expected: 06/22/2022, Expires: 04/21/2023 Health Maintenance Due Date Last Done Comments [...] of this encounter Implants Implanted Type Area Group Worker Device Identifier Shelf Expiration Date Model / Serial / Lot Cath Power Port 6fr Clearvue - [id number] Implanted:Qty : 1 on 08/10/2021 by Alexander Rodriguez MD [place] [facility] [place]: Subclavian CR BARD : PERIPHERAL VASCULAR 08/21/2021 [id number] / / documented as of this encounter Visit Diagnoses Diagnosis 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 Care Teams Head Of Business Development Relationship Specialty Start Date End Date Hortencia Leal PA-C [address] [facility] [address] PCP - General Physician Rehabilitation Program Coordinator 02/08/18 documented as of this encounter
--- OUTSIDE RECORDS SUMMARY | 2023-06-27 07:49 | External Medical Summary | Summary of Care ---
Author Name Unknown Organization [place] [address] Care Team Providers Care Research Administrator Name Role Phone Hortencia Leal PA-C Primary Care Provid er Encounter Details Date Type Department Care Team Description 02/14/2022 Scan Encounter Hematology/Oncology [facility] 200 [place] [address] Nik Melo MD 200 [facility] [place] [address] <No scans attached> Allergies Active Allergy Reactions Severity Noted Date Comments Amlodipine 11/02/2020 dizziness Codeine Sulfate Other (Please comment) 10/26/19 11 hyperactivity Hydrochlorothiazide 11/02/2020 hypercalcemia Oxaliplatin 02/09/2022 Infusion related reaction documented as of this encounter (statuses as of 02/15/2022) Medications Medication Sig Dispensed Refills Start Date [...] times a day. 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 documented as of this encounter (statuses as of 02/15/2022) Immunizations Name Administration Dates Next Due COVID-19 [...] Date Type Specialty Care Team Description 02/22/2022 Laboratory Laboratory [place], [facility] 200 [facility] [place] [address] 02/22/2022 Hem/Onc Treatment Hematology Oncology [place], Chair 7 Hem Onc [facility] 200 [facility] [place] [address] 03/22/2022 Laboratory Laboratory [facility] 200 [facility] [place] [address] 03/22/2022 Office Visit Hematology Oncology Nik Melo MD 200 [facility] [place] [place] [address] 03/22/2022 Hem/Onc Treatment Hematology Oncology [place], Chair 11 Hem Onc [address] [place] [address] 03/29/2022 Office Visit Urology Cm Rhodes MD [address] [place] [address] Health Maintenance Due Date Last Done [...] of this encounter Implants Implanted Type Area Financial Sales Assistant Device Identifier Shelf Expiration Date Model / Serial / Lot Cath Power Port 6fr Clearvue - [id number] Implanted:Qty : 1 on 08/10/2021 by Alexander Rodriguez MD at [place] [facility] [place] Left: Subclavian CR BARD : PERIPHERAL VASCULAR 08/21/2021 [id number] / / documented as of this encounter Advance Directives Documents on File Type Date Recorded Patient Professor Of Environmental Science Expl 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 Care Teams Research Administrator Relationship Specialty Start Date End Date Hortencia Leal PA-C [address] [place] [address] PCP - General Physician Brake Mechanic 02/08/18 documented as of this encounter
--- OUTSIDE RECORDS SUMMARY | 2023-06-27 07:49 | External Medical Summary | Summary of Care ---
Author Name Unknown Organization [place] [address] Care Team Providers Care Tourist Escort Name Role Phone Hortencia Leal PA-C Primary Care Provid er Encounter Details Date Type Department Care Team Description 03/17/2022 Orders Only Hematology/Oncology [facility] 200 [place] [address] Nik Melo MD [address] [place] [address] Allergies Active Allergy Reactions Severity Noted Date Comments Amlodipine 11/02/2020 dizziness Codeine Sulfate Other (Please comment) 10/26/19 11 hyperactivity Hydrochlorothiazide 11/02/2020 hypercalcemia Oxaliplatin 02/09/2022 Infusion related reaction documented as of this encounter (statuses as of 03/17/2022) Medications Medication Sig Dispensed Refills Start Date [...] times a day. 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 documented as of this encounter (statuses as of 03/17/2022) Immunizations Name Administration Dates Next Due COVID-19 [...] Encounters Date Type Specialty Care Team Description 03/21/2022 Laboratory Laboratory [facility] [address] [place] [address] 03/22/2022 Office Visit Hematology Oncology Nik Melo MD 200 [place] [address] 03/22/2022 Hem/Onc Treatment Hematology Oncology [place], Chair 11 Hem Onc Scene 200 [place] [address] 03/29/2022 Office Visit Urology Cm Rhodes MD [address] [address] Health Maintenance Due Date Last [...] SCREEN EVERY 3 YRS-AGE 45 AND ABOVE 02/22/2025 02/22/2022, 02/07/2022, 01/31/2022, Additional history exists Influenza Vaccine (FLU shot) Completed 06/2021, 08/21/2018, 07/14/2017, Additional history exists GARDASIL-HPV IMMUNIZATION SERIES Aged Out No longer eligible based on patient's age to complete this topic MENINGOCOCCAL (MENACTRA/MENVEO) Aged Out No longer eligible based on patient's age to complete this topic documented as of this encounter Implants Implanted Type Area Gunstock Spray Unit Feeder Device Identifier Shelf Expiration Date Model / Serial / Lot Cath Power Port 6fr Clearvue - [id number] Implanted:Qty : 1 on 08/10/2021 by Alexander Rodriguez MD at [place] [facility] [place] Left: Subclavian CR BARD : PERIPHERAL VASCULAR 08/21/2021 [id number] / / documented as of this encounter Advance Directives Documents on File Type Date Recorded Patient Immunohematologist Expl 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 Care Teams Tourist Escort Relationship Specialty Start Date End Date Hortencia Leal PA-C [address] [place] [address] PCP - General Physician Practicing Urologist 02/08/18 documented as of this encounter
--- OUTSIDE RECORDS SUMMARY | 2023-06-27 07:49 | External Medical Summary ---
Author Name Unknown Address Unknown Organization [id number][facility] [place] [address] [place] [address] Laboratory Report Ordering Provider Test Date Status SHAY CH 03/21/2022 09:49:32 Final Observation Date Value Abnormality Reference (Units ) Status TSH 03/21/2022 09:49:32 1.09 0.27-4.20 (uIU/mL) Final Performing Location [facility] [place] [address] [place] [address]
--- OUTSIDE RECORDS SUMMARY | 2023-06-27 07:49 | External Medical Summary ---
Author Name Unknown Address Unknown Organization [id number]:[facility] [place] [address] [place] [address] Laboratory Report Ordering Provider Test Date Status SHAY CH 02/22/2022 10:25:40 Final Observation Date Value Abnormality Reference (Units ) Status TSH 02/22/2022 10:25:40 0.99 0.27-4.20 (uIU/mL) Final Performing Location [facility] [place] [address] [place] [address]
--- OUTSIDE RECORDS SUMMARY | 2023-06-27 07:49 | External Medical Summary | Summary of Care ---
Author Name [place] [address] Care Team Providers Care Burglar Alarm Installer Name Role Phone Hortencia Leal PA-C Primary Care Provid er Encounter Details Date Type Department Care Team Description 02/21/2022 Documentation Home Infusion, [place] [address] [place] [address] Services, [facility] [address] [place] [address] Allergies Active Allergy Reactions Severity Noted Date Comments Amlodipine 11/02/2020 dizziness Codeine Sulfate Other (Please comment) 10/26/19 11 hyperactivity Hydrochlorothiazide 11/02/2020 hypercalcemia Oxaliplatin 02/09/2022 Infusion related reaction documented as of this encounter (statuses as of 02/21/2022) Medications Medication Sig Dispensed Refills Start Date [...] a day. 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 The client was referred to us for home therapy. The ordered therapy was FLUOROURACIL 4425 mg IV Continuously The home therapy began on: 08/30/2021 Per physician order: -the prescribed therapy was completed on: 02/10/2022 -the (VAD) will remain in place and will be maintained by the clinical staff at [facility]: The client and/or caregiver were compliant with therapy administration. The therapy goals were met. The following instructions were provided during our final conversation with the client and/or caregiver: did not speak with client -care of the device if it is to remain in place, -care of the device insertion site after removal, including reporting of signs and symptoms of infection or other complications, -appropriate disposal of unused waste, supplies and/or medication, -return of equipment and associated accessories, -importance of keeping all follow up appointments Collaboration of Care: -[facility] clinical staff were notified of CVAD removal and therapy completion -The home health agency was aware of CVAD removal and therapy completion. -A discharge summary note was sent to:Dr. Melo via [employer]/fax documented in this encounter Plan of Treatment Upcoming Encounters Date Type Specialty Care Team Description 02/22/2022 Laboratory Laboratory [place], Lab [facility] [address] [place] [address] 02/22/2022 Hem/Onc Treatment Hematology Oncology [place], Chair 7 Hem Onc Scene 200 [facility] [place] [address] 03/22/2022 Laboratory Laboratory [place], Lab Scene [address] [place] [address] 03/22/2022 Office Visit Hematology Oncology Nik Melo MD 200 [place] [address] 03/22/2022 Hem/Onc Treatment Hematology Oncology [place], Chair 11 Hem Onc Scene [address] [place] [address] 03/29/2022 Office Visit Urology Cm Rhodes MD [address] [place] [address] Health Maintenance Due Date Last Done [...] of this encounter Implants Implanted Type Area Ready Mix Truck Driver Device Identifier Shelf Expiration Date Model / Serial / Lot Cath Power Port 6fr Clearvue - [id number] Implanted:Qty : 1 on 08/10/2021 by Alexander Rodriguez MD at OR [facility] [place] Left: Subclavian CR BARD : PERIPHERAL VASCULAR 08/21/2021 [id number] / / documented as of this encounter Advance Directives Documents on File Type Date Recorded Patient Building Surveyor Expl 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 Care Teams Burglar Alarm Installer Relationship Specialty Start Date End Date Hortencia Leal PA-C [address] [place] [address] PCP - General Physician Medical Supply Technician 02/08/18 documented as of this encounter
--- OUTSIDE RECORDS SUMMARY | 2023-06-27 07:49 | External Medical Summary | Summary of Care ---
Author Name Unknown Organization [place] [address] Care Team Providers Care Television Schedule Coordinator Name Role Phone Hortencia Leal PA-C Primary Care Provid er Encounter Details Date Type Department Care Team Description 02/16/2022 Scan Encounter Hematology/Oncology [facility] 200 [place] [address] Nik Melo MD 200 [place] [address] <No scans attached> Allergies Active Allergy Reactions Severity Noted Date Comments Amlodipine 11/02/2020 dizziness Codeine Sulfate Other (Please comment) 10/26/19 11 hyperactivity Hydrochlorothiazide 11/02/2020 hypercalcemia Oxaliplatin 02/09/2022 Infusion related reaction documented as of this encounter (statuses as of 02/16/2022) Medications Medication Sig Dispensed Refills Start Date [...] times a day. 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 documented as of this encounter (statuses as of 02/16/2022) Immunizations Name Administration Dates Next Due COVID-19 [...] Specialty Care Team Description 02/22/2022 Laboratory Laboratory [place], Lab Scenery 200 [facility] [place] [address] 02/22/2022 Hem/Onc Treatment Hematology Oncology [place], Chair 7 Hem Onc [facility] 200 [facility] [place] [address] 03/22/2022 Laboratory Laboratory [place] Lab [facility] 200 [facility] [place] [address] 03/22/2022 Office Visit Hematology Oncology Nik Melo MD 200 [facility] [place] [address] 03/22/2022 Hem/Onc Treatment Hematology Oncology [place], Chair 11 Hem Onc Scenery [address] [place] [address] 03/29/2022 Office Visit Urology Cm Rhodes MD [address] [place] [address] Health Maintenance Due Date Last Done [...] of this encounter Implants Implanted Type Area Data Processing Mechanic Device Identifier Shelf Expiration Date Model / Serial / Lot Cath Power Port 6fr Clearvue - [id number] Implanted:Qty : 1 on 08/10/2021 by Alexander Rodriguez MD [place] [facility] Left: Subclavian CR BARD : PERIPHERAL VASCULAR 08/21/2021 [id number] / / documented as of this encounter Advance Directives Documents on File Type Date Recorded Patient Chemistry Associate Expl 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 Care Teams Television Schedule Coordinator Relationship Specialty Start Date End Date Hortencia Leal PA-C [address] [place] [address] PCP - General Physician Auto Motor Mechanic 02/08/18 documented as of this encounter
--- OUTSIDE RECORDS SUMMARY | 2023-06-27 07:49 | External Medical Summary ---
Author Name Unknown Address Unknown Organization [id number]:[facility] [place] [address] Laboratory Report Ordering Provider Test Date Status SHAY CH 03/21/2022 09:49:32 Final Observation Date Value Abnormality Reference (Units ) Status BUN 03/21/2022 09:49:32 25 Above high normal 6-20 (mg/dL) Final Creatinine 03/21/2022 09:49:32 1.7 Above high normal 0.6-1.2 (mg/dL) Final Glomerular filtration rate/1.73 sq M.predicted [Volume Rate/Area] in Serum, Plasma or Blood by Creatinine-based formula (CKD-EPI) 03/21/2022 09:49:32 42 Below low normal >=60 (mL/min) Final Performing Location [facility] [address]
--- OUTSIDE RECORDS SUMMARY | 2023-06-27 07:49 | External Medical Summary ---
Author Name Unknown Address Unknown Organization [id number]:[facility] [place] [address] Laboratory Report Ordering Provider Test Date Status SHAY CH 02/22/2022 10:25:40 Final Observation Date Value Abnormality Reference (Units ) Status SYNC LEUKOCYTES IN BLOOD BY AUTOMATED COUNT 02/22/2022 10:25:40 4.21 4.00-10.80 (K/uL) Final Segs 02/22/2022 10:25:40 62.2 40.0-75.0 (%) Final Lymphs % 02/22/2022 10:25:40 21.4 18.0-42.0 (%) Final Monos 02/22/2022 10:25:40 10.7 1.0-11.0 (%) Final Eosinophils 02/22/2022 10:25:40 5.2 0.0-6.0 (%) Final Basos 02/22/2022 10:25:40 0.5 0.0-2.0 (%) Final Absolute Segs 02/22/2022 10:25:40 2.62 1.80-7.70 (K/uL) Final Lymphs, absolute 02/22/2022 10:25:40 0.90 Below low normal 1.00-4.80 (K/ul) Final Monos, Abs 02/22/2022 10:25:40 0.45 0.00-1.10 (K/uL) Final Eos, Abs 02/22/2022 10:25:40 0.22 0.00-0.70 (K/uL) Final Basos, Abs 02/22/2022 10:25:40 0.02 0.00-0.20 (K/uL) Final Performing Location [facility] [place] [address]
--- OUTSIDE RECORDS SUMMARY | 2023-06-27 07:49 | External Medical Summary | Summary of Care ---
Author Name Unknown Organization [place] [address] Care Team Providers Care Banquet Waiter/Waitress Name Role Phone Hortencia Leal PA-C Primary Care Provid er Reason for Visit * Reason Comments Outpatient Testing * Evaluate & Treat - Unlimited Visits (Within 30 days (routine)) - Authorized Specialty Diagnoses / Procedures Referred By Lizzie reno Referred To Contact Hematology Oncology Diagnoses Adenocarcinoma esophagus Procedures Eval and treat Hortencia Leal PA-C [address] [place] [address] Referral ID Status Reason Start Date Expiration Date Visits Requested Visits Authorized [id number] Authorized Specialty Services Required 10/26/2021 10/27/2022 999 999 Encounter Details Date Type Department Care Team Description 03/21/2022 Laboratory Laboratory [place] [address] [place] [id number] Enrique Castañeda [address] [place] [place] [address] 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 documented as of this encounter (statuses as of 03/21/2022) Immunizations Name Administration Dates Next Due COVID-19 [...] Encounters Date Type Specialty Care Team Description 03/22/2022 Office Visit Hematology Oncology Nik Melo MD 200 [place] [address] 03/22/2022 Hem/Onc Treatment Hematology Oncology [place], Chair 11 Hem Onc [facility] 200 [place] [address] 03/29/2022 Office Visit Urology Cm Rhodes MD [address] [place] [address] Pending Results Name Type Priority Associated Diagnoses Date /Time CBC WITH WBC DIFFERENTIAL Lab STAT 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) 03/21/2022 9:49 AM EDT COMPREHENSIVE METABOLIC PANEL Lab STAT 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) 03/21/2022 9:49 AM EDT TSH WITH FREE T4 IF INDICATED Lab STAT 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) Encounter for long-term (current) use of medications 03/21/2022 9:49 AM EDT CBC Lab STAT 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) 03/21/2022 9:49 AM EDT DIFFERENTIAL, AUTOMATED Lab STAT 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) 03/21/2022 9:49 AM EDT Health Maintenance Due Date Last [...] of this encounter Implants Implanted Type Area Flavor Room Worker Device Identifier Shelf Expiration Date Model / Serial / Lot Cath Power Port 6fr Clearvue - [id number] Implanted:Qty : 1 on 08/10/2021 by Alexander Rodriguez MD at [facility] Left: Subclavian CR BARD : PERIPHERAL VASCULAR 08/21/2021 [id number] / / documented as of this encounter Visit Diagnoses Diagnosis 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 Care Teams Banquet Waiter/Waitress Relationship Specialty Start Date End Date Hortencia Leal PA-C [address] [address] PCP - General Physician Bakery Helper 02/08/18 documented as of this encounter
--- OUTSIDE RECORDS SUMMARY | 2023-06-27 07:49 | External Medical Summary | Summary of Care ---
Author Name Unknown Organization [place] [address] Care Team Providers Care Fan Installer Name Role Phone Hortencia Leal PA-C Primary Care Provid er Reason for Visit * Reason Comments Chemotherapy C1D1 Opdivo * Evaluate & Treat - Unlimited Visits (Within 30 days (routine)) - Authorized Specialty Diagnoses / Procedures Referred By Lizzie reno Referred To Contact Hematology Oncology Diagnoses Adenocarcinoma esophagus Procedures Eval and treat Hortencia Leal PA-C 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 Coverage by Shelton Calvert RN. Pt discharged in stable condition. * Lakeisha Cortez RN - 02/22/2022 11:15 AM EDT Chair 9 Chemo agents C1D1 Opdivo- this is not first cycle, patient received in combination with FOLFOX treatment. Appetite OK Nausea/Vomiting none Diarrhea none Constipation none Mucositis none Fatigue some fatigue Bleeding none Infection none Rash none Numbness tingling baseline from oxaliplatin Pain none Radiation none ABN Labs Kidney function elevated, plt 88, reviewed with ANTHONY ALVARENGA Alt in Tx: NONE Return in 4 weeks Safety and Risk for Injury Patient will remain free from injury. Ensure appropriate safety devices are available. Provide and maintain safe environment. Patient is having a hard day emotionally because he has to put his cat down tomorrow. He states that he was not able to sleep last night and he thinks the stress of everything is why his BP is elevated. Reassessed at 152/86. No s/s. documented in this encounter Plan of Treatment Upcoming Encounters Date Type Specialty Care Team Description 03/21/2022 Laboratory Laboratory [place] Lab Scenery 200 [facility] [place] [address] 03/22/2022 Office Visit Hematology Oncology Nik Melo MD 200 [facility] [place] [address] 03/22/2022 Hem/Onc Treatment Hematology Oncology [place], Chair 11 Hem Onc Scenery 200 [facility] [place] [address] 03/29/2022 Office Visit [facility] Cm [facility] [address] [place] [address] Health Maintenance Due [...] of this encounter Implants Implanted Type Area Copy Center Operator Device Identifier Shelf Expiration Date Model / Serial / Lot Cath Power Port 6fr Clearvue - [id number] Implanted:Qty : 1 on 08/10/2021 by Alexander Rodriguez MD at [facility] Left: Subclavian CR BARD : PERIPHERAL VASCULAR 08/21/2021 [id number] / / documented as of this encounter [...] ONCE PRN Other, Hypersensitivity Reaction, Starting on Sun02/22/22 at 1115, Until Chandrika 02/23/22 at 1114, For 24 hours EPINEPHrine 1 MG/ML inj 0.3 mg 0.3 mg, Intramuscular, ONCE PRN Other, Hypersensitivity Reaction or Anaphylaxis, Starting on Sun02/22/22 at 1115, Until Chandrika 02/23/22 at 1114, For 24 hours hEParin 100 UNIT/ML Lock Flush inj 500 Units 500 Units (5 mL), IV Lock, PRN Other, IV Flush, Starting on Sun02/22/22 at 1115, Until Chandrika 02/23/22 at 1114, For 24 hours, Do not flush if lock, PICC, or central line not in place; IV infusing or unable to flush. Given 02/22/2022 12:19 PM EDT 500 Units Hydrocortisone Na Succinate PF (Solu-Cortef) inj 100 mg 100 mg, IV Push, ONCE PRN Other, Hypersensitivity Reaction, Starting on Sun02/22/22 at 1115, Until Chandrika 02/23/22 at 1114, For 24 hours NSS infusion 500 mL, Intravenous, at 50 mL/hr, CONTINUOUS, Starting on Sun02/22/22 at 1215, Until Sun02/22/22 at 2214 Start Infusion 02/22/2022 11:15 AM EDT 500 mL 50 mL/hr sodium chloride 0.9 % flush/inj 10 mL 10 mL, IV Push, PRN Other, IV Flush, Starting on Sun02/22/22 at 1115, Until Chandrika 02/23/22 at 1114, For 24 hours, Do not flush if lock, PICC, or central line not in place; IV infusing or unable to flush. Given 02/22/2022 12:19 PM EDT 10 mL Inactive Administered Medications [...] (0.2 micrometer-1.2 micrometer), ONCE, 1 dose, On Sun02/22/22 at 1215 Start Infusion 02/22/2022 11:48 AM EDT 480 mg 200 mL/hr documented in this encounter Advance Directives Documents on File Type Date Recorded Patient Wind Energy Systems Installer Expl 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 Care Teams Fan Installer Relationship Specialty Start Date End Date Hortencia Leal PA-C [address] [facility] [address] PCP - General Physician Music Video Producer 02/08/18 documented as of this encounter
--- OUTSIDE RECORDS SUMMARY | 2023-06-27 07:49 | External Medical Summary ---
Author Name Unknown Address Unknown Organization [id number]:[facility] [place] - [address] [place] [address] Laboratory Report Ordering Provider Test Date Status ABBIE MACIAS 02/22/2022 10:25:40 Final Observation Date Value Abnormality Reference (Units ) Status MYCODE SPECIMEN-SST 02/22/2022 10:25:40 Freezing of extracted DNA, whole blood and/or serum. Final Performing Location [facility] [place] - [address] [place] [address]
--- OUTSIDE RECORDS SUMMARY | 2023-06-27 07:49 | External Medical Summary ---
Author Name Unknown Address Unknown Organization K09:[facility] [place] [place] [address] Laboratory Report Ordering Provider Test Date Status SHAY CH 02/22/2022 10:25:40 Final Observation Date Value Abnormality Reference (Units ) Status Nucleated erythrocytes/100 leukocytes [Ratio] in Blood by Automated count 02/22/2022 10:25:40 Final Anisocytosis [Presence] in Blood by Light microscopy 02/22/2022 10:25:40 Slight Abnormal None Seen Final Macrocytes [Presence] in Blood by Light microscopy 02/22/2022 10:25:40 Present Abnormal None Seen Final Performing Location [facility] [place] [address]
--- OUTSIDE RECORDS SUMMARY | 2023-06-27 07:49 | External Medical Summary ---
Author Name Unknown Address Unknown Organization K09:[facility] [place] [address] Laboratory Report Ordering Provider Test Date Status SHAY CH 03/21/2022 09:49:32 Final Observation Date Value Abnormality Reference (Units ) Status SYNC LEUKOCYTES IN BLOOD BY AUTOMATED COUNT 03/21/2022 09:49:32 4.60 4.00-10.80 (K/uL) Final Segs 03/21/2022 09:49:32 67.2 40.0-75.0 (%) Final Lymphs % 03/21/2022 09:49:32 21.1 18.0-42.0 (%) Final Monos 03/21/2022 09:49:32 8.0 1.0-11.0 (%) Final Eosinophils 03/21/2022 09:49:32 3.5 0.0-6.0 (%) Final Basos 03/21/2022 09:49:32 0.2 0.0-2.0 (%) Final Absolute Segs 03/21/2022 09:49:32 3.09 1.80-7.70 (K/uL) Final Lymphs, absolute 03/21/2022 09:49:32 0.97 Below low normal 1.00-4.80 (K/ul) Final Monos, Abs 03/21/2022 09:49:32 0.37 0.00-1.10 (K/uL) Final Eos, Abs 03/21/2022 09:49:32 0.16 0.00-0.70 (K/uL) Final Basos, Abs 03/21/2022 09:49:32 0.01 0.00-0.20 (K/uL) Final Performing Location [facility] [place] [address]
--- OUTSIDE RECORDS SUMMARY | 2023-06-27 07:49 | External Medical Summary ---
Author Name Unknown Address Unknown Organization K09:[facility] [place] [address] Laboratory Report Ordering Provider Test Date Status SHAY CH 03/21/2022 09:49:32 Final Observation Date Value Abnormality Reference (Units ) Status WBC, Total 03/21/2022 09:49:32 4.60 4.00-10.8 0 (K/uL) Final RBC 03/21/2022 09:49:32 3.45 Below low normal 4.5 0-5.25 (M/uL) Final Hemoglobin 03/21/2022 09:49:32 11.5 Below low normal 14 .0-16.8 (g/dL) Final HCT 03/21/2022 09:49:32 35.4 Below low normal 40. 0-48.4 (%) Final MCV 03/21/2022 09:49:32 102.6 Above high normal 82 .0-99.5 (fL) Final MCH 03/21/2022 09:49:32 33.3 27.0-34.0 (pg) Final MCHC 03/21/2022 09:49:32 32.5 32.0-36.0 (g/dL) Final RDW 03/21/2022 09:49:32 14.8 11.5-15.5 (%) Final Platelets 03/21/2022 09:49:32 103 Below low normal 140 -400 (K/uL) Final MPV 03/21/2022 09:49:32 8.6 6.6-11.1 ( fL) Final Performing Location [facility] [place] [address]
--- OUTSIDE RECORDS SUMMARY | 2023-06-27 07:50 | External Medical Summary ---
Author Name Unknown Address Unknown Organization K09:[facility] [place] [address] Laboratory Report Ordering Provider Test Date Status SHAY CH 02/07/2022 09:43:24 Final Observation Date Value Abnormality Reference (Units ) Status SYNC LEUKOCYTES IN BLOOD BY AUTOMATED COUNT 02/07/2022 09:43:24 5.90 4.00-10.80 (K/uL) Final Segs 02/07/2022 09:43:24 65.9 40.0-75.0 (%) Final Lymphs % 02/07/2022 09:43:24 18.0 18.0-42.0 (%) Final Monos 02/07/2022 09:43:24 13.6 Above high normal 1.0-11.0 (%) Final Eosinophils 02/07/2022 09:43:24 2.0 0.0-6.0 (%) Final Basos 02/07/2022 09:43:24 0.5 0.0-2.0 (%) Final Absolute Segs 02/07/2022 09:43:24 3.89 1.80-7.70 (K/uL) Final Lymphs, absolute 02/07/2022 09:43:24 1.06 1.00-4.80 (K/ul) Final Monos, Abs 02/07/2022 09:43:24 0.80 0.00-1.10 (K/uL) Final Eos, Abs 02/07/2022 09:43:24 0.12 0.00-0.70 (K/uL) Final Basos, Abs 02/07/2022 09:43:24 0.03 0.00-0.20 (K/uL) Final Performing Location [facility] [place] [address]
--- OUTSIDE RECORDS SUMMARY | 2023-06-27 07:50 | External Medical Summary | Summary of Care ---
Author Name Unknown Organization [place] [address] Care Team Providers Care Orange Picker Name Role Phone Hortencia Leal PA-C Primary Care Provid er Encounter Details Date Type Department Care Team Description 02/09/2022 Orders Only Hematology/Oncology [facility] [address] [place] [address] Nik Melo MD [address] [facility] [address] Allergies Active Allergy Reactions Severity Noted Date Comments Amlodipine 11/02/2020 dizziness Codeine Sulfate Other (Please comment) 10/26/19 11 hyperactivity Hydrochlorothiazide 11/02/2020 hypercalcemia Oxaliplatin 02/09/2022 Infusion related reaction documented as of this encounter (statuses as of 02/09/2022) Medications Medication Sig Dispensed Refills Start Date [...] times a day. 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 documented as of this encounter (statuses as of 02/09/2022) Immunizations Name Administration Dates Next Due COVID-19 [...] Encounters Date Type Specialty Care Team Description 02/10/2022 Immunization/Injection Hematology Oncolog y [place], Chair 9 Hem Onc Scenery [address] [place] [address] 02/21/2022 Laboratory Laboratory [place], Lab Scenery [address] [place] [address] 02/22/2022 Hem/Onc Treatment Hematology Oncology [place], Chair 7 Hem Onc Scenery [address] [place] [address] 03/07/2022 Laboratory Laboratory [place], Lab Scenery [address] [place] [address] 03/08/2022 Hem/Onc Treatment Hematology Oncology [place], Chair 11 Hem Onc Scenery [address] [place] [address] 03/29/2022 Office Visit Urology RhodesCm MD [address] [address] [place] [address] Health Maintenance Due Date [...] of this encounter Implants Implanted Type Area Type Disk Quality Control Supervisor Device Identifier Shelf Expiration Date Model / Serial / Lot Cath Power Port 6fr Clearvue - [id number] Implanted:Qty : 1 on 08/10/2021 by Alexander Rodriguez MD at OR [facility] [place] Left: Subclavian CR BARD : PERIPHERAL VASCULAR 08/21/2021 [id number] / / documented as of this encounter Advance Directives Documents on File Type Date Recorded Patient Electronic Technician Expl 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 Care Teams Orange Picker Relationship Specialty Start Date End Date Hortencia Leal PA-C [address] [facility], [place] [address] PCP - General Physician Medical Receptionist Medical Assistant 02/08/18 documented as of this encounter
--- OUTSIDE RECORDS SUMMARY | 2023-06-27 07:50 | External Medical Summary | Summary of Care ---
Author Name Unknown Organization [place] [address] Care Team Providers Care [place] [employer] Name Role Phone Hortencia Leal PA-C Primary Care Provid er Encounter Details Date Type Department Care Team Description 02/08/2022 Orders Only Hematology/Oncology [facility] [address] [place] [address] Nik Melo MD [address] [place] [address] Allergies Active Allergy Reactions Severity Noted Date Comments Amlodipine 11/02/2020 dizziness Codeine Sulfate Other (Please comment) 10/26/19 11 hyperactivity Hydrochlorothiazide 11/02/2020 hypercalcemia documented as of this encounter (statuses as of 02/08/2022) Medications Medication Sig Dispensed Refills Start Date [...] times a day. 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 documented as of this encounter (statuses as of 02/08/2022) Immunizations Name Administration Dates Next Due COVID-19 [...] Team Description 02/10/2022 Immunization/Injection Hematology Oncolog y Nurse, Med 4 [address] [place] [address] 02/21/2022 Laboratory Laboratory [place], Lab Scenery [address] [place] [address] 02/22/2022 Hem/Onc Treatment Hematology Oncology [place], Chair 7 Hem Onc Scenery [address] [place] [address] 03/07/2022 Laboratory Laboratory [place], Lab Scenery [address] [place] [address] 03/08/2022 Hem/Onc Treatment Hematology Oncology [place], Chair 11 Hem Onc Scenery [address] [place] [address] 03/29/2022 Office Visit Urology Cm Rhodes MD [address] [place] [address] [place] [address] Health Maintenance Due Date Last Done [...] of this encounter Implants Implanted Type Area Paper Slitter Device Identifier Shelf Expiration Date Model / Serial / Lot Cath Power Port 6fr Clearvue - [id number] Implanted:Qty : 1 on 08/10/2021 by Alexander Rodriguez MD [place] [facility] [place]: Subclavian CR BARD : PERIPHERAL VASCULAR 08/21/2021 [id number] / / documented as of this encounter Advance Directives Documents on File Type Date Recorded Patient Flat Folder Expl 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 Care Teams [place] Relationship Specialty Start Date End Date Hortencia Leal PA-C [address] [facility], [place] [address] PCP - General Physician Director Of Partner Marketing 02/08/18 documented as of this encounter
--- OUTSIDE RECORDS SUMMARY | 2023-06-27 07:50 | External Medical Summary ---
Author Name Unknown Address Unknown Organization K09:[facility] [place] [address] Laboratory Report Ordering Provider Test Date Status SHAY CH 02/07/2022 09:43:24 Final Observation Date Value Abnormality Reference (Units ) Status WBC, Total 02/07/2022 09:43:24 5.90 4.00-10.8 0 (K/uL) Final RBC 02/07/2022 09:43:24 3.19 Below low normal 4.5 0-5.25 (M/uL) Final Hemoglobin 02/07/2022 09:43:24 11.0 Below low normal 14 .0-16.8 (g/dL) Final HCT 02/07/2022 09:43:24 34.0 Below low normal 40. 0-48.4 (%) Final MCV 02/07/2022 09:43:24 106.6 Above high normal 82 .0-99.5 (fL) Final MCH 02/07/2022 09:43:24 34.5 Above high normal 27 .0-34.0 (pg) Final MCHC 02/07/2022 09:43:24 32.4 32.0-36.0 (g/dL) Final RDW 02/07/2022 09:43:24 17.4 Above high normal 11 .5-15.5 (%) Final Platelets 02/07/2022 09:43:24 115 Below low normal 140 -400 (K/uL) Final MPV 02/07/2022 09:43:24 9.2 6.6-11.1 ( fL) Final Performing Location [facility] [place] [address]
--- OUTSIDE RECORDS SUMMARY | 2023-06-27 07:50 | External Medical Summary | Summary of Care ---
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) Procedures MA LEUCOVORIN CALCIUM INJECTION MA PALONOSETRON HCL MA FLUOROURACIL INJECTION MA OXALIPLATIN MA INJECTION, NIVOLUMAB Nik Melo MD 200 [place] [address] Anc Hem/Onc [address] [place] [address] Referral ID Status Reason Start Date Expiration Date V isits Requested Visits Authorized [id number] Authorized 08/19/2021 08/19/2022 99 99 Encounter Details Date Type Department Care Team Description 01/11/2022 Hem/Onc Treatment Hematology/Oncology Treatment, [address] [place] [address] Maddy, Chair 6 Hem On[address] [place] [address] 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 As needed 0 Active [place]-3 Fatty Acids (FISH OIL) 1000 MG Capsule [...] for Nausea. 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 documented as of this encounter (statuses as of 02/07/2022) Immunizations Name Administration Dates Next Due COVID-19 [...] Sign Reading Time Taken Comments Blood Pressure 157/57 01/11/2022 11:45 AM EDT Pulse 69 01/11/2022 11:45 AM EDT Temperature 36.4 C (97.5 F) 01/11/2022 1 1:45 AM EDT Respiratory Rate 16 01/11/2022 11:4 5 AM EDT Oxygen Saturation 94% 01/11/2022 11: 45 AM EDT Inhaled Oxygen Concentration - - Weight 75.2 kg (165 lb 12.8 oz) 022 11:45 AM EDT Height - - Body Mass Index 28.46 08/10/2021 8:15 AM EDT documented in this encounter Nursing Notes * Eboni Stevens RN - 01/11/2022 3:28 PM EDT Opdivo and FOLFOX are complete, pt tolerated well. Blood return checked from port, +blood return, prior to 5FU push and 5FU pump connect. Goals: pt to remain free from injury Possible barriers to meeting goals: ambulation with IV pole/tubing Stability of the patient: Moderately stable - low risk of patient condition declining or worsening Summary regarding today's goals: Met: pt remained free from injury Pt discharged with 5FU infusing, pt in stable condition. * Eboni Stevens RN - 01/11/2022 2:01 PM EDT Ch 7. Pt arrived today for FOLFOX and Opdivo. Pt had labs performed yesterday, results WNL. Pt has elevated but stable Cr.. Pt reports he is 'feeling ok'. He states he gets fatigue and takes naps sometimes. He reports mild constipation, but states after tx it often worsens and he plans to start hisPRN bowel meds again. He denies N/V, reports continued decreased appetite, as evidenced by 2lb wt loss. He does report he drinks 2 protein drinks per day, some days this is in place of breakfast or lunch, other days in addition to his meals. Pt denies pain or neuropathy. Chemo agents Opdivo, FOLFOX Appetite fair Nausea/Vomiting denies Diarrhea denies Constipation mild, takes PRN meds when he needs Mucositis denies Fatigue mild, takes naps as needed Bleeding denies Infection denies Rash denies Numbness tingling denies Pain denies Radiation no ABN Labs WNL Alt in Tx: dose reduction based on Cr clearance per pharmacist Return in 2 days Safety and Risk for Injury Patient will remain free from injury. Ensure appropriate safety devices are available. Provide and maintain safe environment. * Venita Byers RN - 01/10/2022 1:00 PM EDT CBCd and CMP reviewed with Dr Mccray - WBC 3.74, Hgb 10.2, Plt 100, ANC 2.22 - Creatinine 1.8 (stable for patient), Ca 10.[address] Mccray, lab work is ok for treatment tomorrow. documented in this encounter Plan of Treatment Upcoming Encounters Date Type Specialty Care Team Description 02/08/2022 Office Visit Hematology Oncology [place], Nik Vargas MD [address] [place], [place] [id number] 02/08/2022 Hem/Onc Treatment Hematology Oncology 03/29/2022 Office Visit Urology Cm Rhodes MD [address] [address] Health Maintenance Due Date Last [...] of this encounter Implants Implanted Type Area Manager Assisted Living Device Identifier Shelf Expiration Date Model / Serial / Lot Cath Power Port 6fr Clearvue - [id number] Implanted:Qty : 1 on 08/10/2021 by Alexander Rodriguez MD at [facility] Left: Subclavian CR BARD : PERIPHERAL VASCULAR 08/21/2021 [id number] / / documented as of this encounter Visit Diagnoses Diagnosis 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)- Primary Encounter for antineoplastic chemotherapy 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) Malignant neoplasm of other specified sites of stomach documented in this encounter Administered Medications Inactive Administered Medications - up to 3 most recent administrations Medication Order MAR Action Action Date Dose Rate Site D5W IV solution 500 mL, Intravenous, at 50 mL/hr, CONTINUOUS, Starting on Sun01/11/22 at 1230, Until Sun01/11/22 at 1934 Start Infusion 01/11/2022 12:24 PM EDT 500 mL 50 mL/hr Dexamethasone (Decadron) tab 12 mg 12 mg, Oral, ONCE, On Sun01/11/22 at 1215, For 1 dose Given 01/11/2022 12:19 PM EDT 12 mg Fluorouracil (5-Fu) 4,650 mg for Home Infusion 4,650 mg (rounded from 4,656 mg = 2,400 mg/m2 1.94 m2 Treatment Plan BSA from Recorded weight), Intravenous, Administer over 46 Hours, Home Infusion Pharmacy to specify base solution and volume. Total Pabd=7647 mg/m2 for 46 hours, ONCE, 1 dose, On Sun01/11/22 at 1315 Start Infusion 01/11/2022 3:15 PM EDT 4,650 mg Fluorouracil (5-Fu) inj 725 mg 725 mg, IV Push, ONCE, 1 dose, On Sun01/11/22 at 1600 Given 01/11/2022 3:15 PM EDT 725 mg leucovorin calcium 800 mg in D5W 250 mL INFUSION 800 mg (rounded from 776 mg = 400 mg/m2 1.94 m2 Treatment Plan BSA from Recorded weight), IV Piggyback, at 125 mL/hr Administer over 120 Minutes, ONCE, 1 dose, On Sun01/11/22 at 1315, Before 5-FU Start Infusion 01/11/2022 1:07 PM EDT 800 mg 125 mL/hr Nivolumab (Opdivo) 240 mg in NSS 100 mL ivpb 240 mg, IV Piggyback, at 200 mL/hr Administer over 30 Minutes, DO NOT SHAKE Use a sterile, non-pyrogenic, low protein binding in-line filter (0.2 micrometer-1.2 micrometer) , ONCE, 1 dose, On Sun01/11/22 at 1245 Start Infusion 01/11/2022 12:24 PM EDT 240 mg 200 mL/hr Oxaliplatin (Eloxatin) 150 mg in D5W 500 mL infusion 150 mg (rounded from 164.9 mg = 85 mg/m2 1.94 m2 Treatment Plan BSA from Recorded weight), IV Piggyback, at 250 mL/hr Administer over 120 Minutes, Flush with D5W only!, ONCE, 1 dose, On Sun01/11/22 at 1315 Start Infusion 01/11/2022 1:07 PM EDT 150 mg 250 mL/hr palonosetron (Aloxi) inj SOLN 0.25 mg 0.25 mg, IV Push, ONCE, On Sun01/11/22 at 1215, For 1 dose, Restricted per S antiemetic guidelines Given 01/11/2022 12:19 PM EDT 0.25 mg documented in this encounter Advance Directives Documents on File Type Date Recorded Patient Director Utilization Management Expl 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 Care Teams Library Customer Service Clerk Relationship Specialty Start Date End Date Hortencia Leal PA-C [address] [facility] [address] PCP - General Physician Criminal Justice Faculty 02/08/18 documented as of this encounter
--- OUTSIDE RECORDS SUMMARY | 2023-06-27 07:50 | External Medical Summary | Summary of Care ---
Author Name Unknown Organization [place] [address] Care Team Providers Care Engineering And Scientific Programmer Name Role Phone Hortencia Leal PA-C Primary Care Provid er Reason for Visit * Reason Comments Follow Up f/u * Evaluate & Treat - Unlimited Visits (Within 30 days (routine)) - Authorized Specialty Diagnoses / Procedures Referred By Lizzie reno Referred To Contact Hematology Oncology Diagnoses Adenocarcinoma esophagus Procedures Eval and treat Hortencia Leal PA-C [address] [place] [address] Referral ID Status Reason Start Date Expiration Date Visits Requested Visits Authorized [id number] Authorized Specialty Services Required 10/26/2021 10/27/[phone] Encounter Details Date Type Department Care Team Description 02/08/2022 Office Visit Hematology/Oncology [facility] [address] [place] [address] Nik Melo MD [address] [place] [address] Prostate cancer (HCC)*; 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 As needed 0 Active [place]-3 Fatty Acids (FISH OIL) 1000 MG Capsule [...] Sign Reading Time Taken Comments Blood Pressure 143/64 02/08/2022 9:58 AM EDT Pulse 58 02/08/2022 9:58 AM EDT Temperature 36.2 C (97.1 F) 02/08/2022 9:58 AM ED T Respiratory Rate 18 02/08/2022 9:58 AM EDT Oxygen Saturation 98% 02/08/2022 9:58 AM EDT Inhaled Oxygen Concentration - - Weight 76 kg (167 lb 8 oz) 02/08/2022 9:58 AM ED T Height - - Body Mass Index 28.75 08/10/2021 8:15 AM EDT documented in this encounter Progress Notes * Nik Melo MD - 02/08/2022 10:09 AM EDT Outpatient Consult Note Data Source: Patient, Epic record. Data Source: Patient, Epic record. 02/08/2022 10:09 AM Heath Austin [id number] 76 year old Patient Encounter: HEMATOLOGY/ONCOLOGY [facility] Cancer Diagnosis: - Metastatic esophageal cancer - Prostate cancer Current Treatment: - FOLFOX. Nivolumab was added on 11/02/2021 - on Eligard for the prostate cancer Previous Treatment: None Oncologic History : 75-year-old male with past [...] 11/01/2020 increased to 0.08fromless than 0.02.He was also started on Eligard injection andreceived the 1st dose on 11/30/2020. Surgical pathology from 10/30/2011 Prostate gland with partial seminal vesicles, robotic assisted radical prostatectomy: Adenocarcinoma, moderately poorly differentiated Overall [place] score 3+4=7 High grade prostatic intraepithelial neoplasia [...] 0.6 cm HISTOLOGIC TYPE: Adenocarcinoma HISTOLOGIC GRADE ([place]): Primary pattern is: Grade 3: single acini of variable size and separation, cribriform and papillarypatterns Secondary pattern is: Grade 3: single acini of variable size and separation, cribriform and papillary patterns Juan Score (primary + secondary) = 5-6: Moderately well differentiated Nodule #2, involves: right lateral apex and right apex Dimensions: 0.9 x 0.3 x 0.9 cm HISTOLOGIC TYPE: Adenocarcinoma HISTOLOGIC GRADE ([place]): Primary pattern is: Grade 3: single acini of variable size and separation, cribriform and papillarypatterns Secondary pattern is: Grade 3: single acini of variable size and separation, cribriform and papillary patterns [place] Score (primary + secondary) = 5-6: Moderately well differentiated Nodule #3 (dominant nodule), involves: left mid, left lateral mid, left lateral, left apex, and left lateral apex Dimensions: 2.5 x 1.5 x 2.1 cm HISTOLOGIC TYPE: Adenocarcinoma HISTOLOGIC GRADE ([place]): Primary pattern is: Grade 3: single acini [...] Final Interpretation: Benign mesothelial cells. Interval History: Clinically he is doing well and feeling better and stronger with no new symptoms of complain. He had episode of mild nausea but no vomiting. He denies any difficulty in swallowing, abdominal pain or distention, headache, dizziness, blurred vision, diarrhea, constipation, bleeding, bruising, hematuria, hematochezia. LABS/IMAGING: Blood test done yesterday showed WBC count of 5.9, hemoglobin 11 and platelet count 115. Creatinineis stable 1.7 and the rest of the electrolytes are in acceptable range. Calcium was 10.5 which is stable. Follow-up PET scan was done on 01/25/2022 which revealed no FDG PET CT evidence of residual/recurrent neoplastic disease REVIEW OF SYSTEMS: General: No Fever, chills, [...] mouth 2 times a day. As needed [place]-3 Fatty Acids (FISH OIL) 1000 MG Capsule [...] Route Frequency Provider Last Rate Last Admin Fluorouracil (5-Fu) 4,425 mg for Home Infusion 2,400 mg/m2 (Order-Specific) Intravenous Once Nik Melo MD Social History Tobacco Use Smoking status: Never Smoker Smokeless tobacco: Never Used Vaping Use Vaping Use: Never used Substance Use Topics Alcohol use: No Drug use: No Review of patient's allergies indicates: Allergen Reactions Amlodipine dizziness Codeine Sulfate Other (Please comment) hyperactivity Hctz [Hydrochlorothiazide] hypercalcemia PHYSICAL EXAMINATION: General Appearance: Healthy appearing patient in no acute distress BP 143/64 (BP Site: Left Arm, BP Position: Sitting, BP Cuff Size: Regular) | Pulse 58 | Temp 36.2 C (97.1 F) (Tympanic) | Resp 18 | Wt 76 kg (167 lb 8 oz) | SpO2 98% | BMI 28.75 kg/m | BSA 1.85m Vitals reviewed. HEENT: No oral or pharyngeal [...] of gout, no jointor bony deformity Neurologic: Grossly intact ASSESSMENT: 75-year-old male with history of prostate [...] nodule which is positive for metastatic disease. Based on the available information now patient has metastatic esophageal cancer and histopathology is consistent with the adenocarcinoma her 2 Kristen isnegative. Currently patient is receiving FOLFOX with overall good tolerance and excellent response on the follow-up PET scan. PDL1 expression was 5%. Nivolumab 240 mg was added on 11/02/2021 on every 2 weeks basis with FOLFOXchemotherapy. Clinically he is feeling better and stronger without any new symptoms of complain. He only had mildnausea with chemotherapy. Physical examination is unremarkable. His blood counts are in stable range. Discussed with patient in detail about the diagnosis and prognosis and reviewed all the available blood tests and PET scan finding with him. I also personally reviewed the radiology images of the PETscan and compared with baseline. PLAN: Continue current treatment including combination of FOLFOX and nivolumab. He will return to clinic for follow-up in 4 weeks with CBC and CMP. The patient voiced understanding of all of [...] documented in this encounter Nursing Notes * Ajit Ferguson CMA - 02/08/2022 10:00 AM EDT Patient identifed by name and birthdate Do you have any concerns about pain management for today's visit? No Living Will or Advance Directive for Health Care as noted on the problem list. [facility] is a way you can talk to your provider on line through e-mail. Would you like to sign up? I can activate it for you? ALREADY ACTIVE Patient was instructed to not get up on the exam table/exam chair until directed and assisted by their provider; patient is to remain seated in the chair/ wheelchair/ exam table/ exam chair for fall prevention and safety reasons. Patient is aware to have assistance to step down off exam table/exam chair with personnel. Patient voiced full comprehension of instructions. Filed Vitals: 02/08/22 0958 BP: 143/64 Pulse: 58 Resp: 18 Temp: 36.2 C (97.1 F) TempSrc: Tympanic SpO2: 98% Weight: 76 kg (167 lb 8 oz) documented in this encounter Plan of Treatment Upcoming Encounters Date Type Specialty Care Team Description 03/29/2022 Office Visit Urology Cm Rhodes MD [address] [address] [place] [address] Health Maintenance Due Date [...] of this encounter Implants Implanted Type Area Home Maker Device Identifier Shelf Expiration Date Model / Serial / Lot Cath Power Port 6fr Clearvue - [id number] Implanted:Qty : 1 on 08/10/2021 by Alexander Rodriguez MD [place] [facility] [place]: Subclavian CR BARD : PERIPHERAL VASCULAR 08/21/2021 [id number] / / documented as of this encounter Visit Diagnoses Diagnosis Prostate cancer (HCC)- Primary Malignant neoplasm of prostate 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 Care Teams Engineering And Scientific Programmer Relationship Specialty Start Date End Date Hortencia Leal PA-C [address] [place] [place] [address] PCP - General Physician Pellet Machine Operator 02/08/18 documented as of this encounter"
--- OUTSIDE RECORDS SUMMARY | 2023-06-27 07:50 | External Medical Summary | Summary of Care ---
Author Name Unknown Organization [place] [address] Care Team Providers Care Die Storage Clerk Name Role Phone Hortencia Leal PA-C Primary Care Provid er Reason for Visit * Reason Comments Procedure pump disconnect/port flush * Evaluate & Treat - Unlimited Visits (Within 30 days (routine)) - Authorized Specialty Diagnoses / Procedures Referred By Lizzie reno Referred To Contact Hematology Oncology Diagnoses Adenocarcinoma esophagus Procedures Eval and treat Hortencia Leal PA-C [address] [place] [address] Referral ID Status Reason Start Date Expiration Date Visits Requested Visits Authorized [id number] Authorized Specialty Services Required 10/26/2021 10/27/[phone] Encounter Details Date Type Department Care Team Description 02/10/2022 Immunization/I njection Hematology/Oncology Treatment, [place] [address] [place] [address] Maddy, Chair 9 Hem Onc Scenery [address] [place] [address] Encounter for antineoplastic chemotherapy*; Encounter for adjustment and management of vascular access device Allergies Active Allergy Reactions Severity Noted Date Comments Amlodipine 11/02/2020 dizziness Codeine Sulfate Other (Please comment) 10/26/19 11 hyperactivity Hydrochlorothiazide 11/02/2020 hypercalcemia Oxaliplatin 02/09/2022 Infusion related reaction documented as of this encounter (statuses as of 02/10/2022) Medications Medication Sig Dispensed Refills Start Date [...] times a day. 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 CADD pump display indicates volume at 0ml. Pump line was clamped and disconnected from VAD. VAD flushed with 10 ml NSS and Heparin 5 ml (100 units/ml). Vasquez needle removed intact. Pt reports extreme fatigue but is otherwise feeling okay. Pt discharged in stable condition. documented in this encounter Plan of Treatment Upcoming Encounters Date Type Specialty Care Team Description 02/22/2022 Laboratory Laboratory Maddy, Lab Scenery [address] [place] [address] 02/22/2022 Hem/Onc Treatment Hematology Oncology Maddy, Chair 7 Hem Onc Scenery [address] [facility] [place] [id number] 03/22/2022 Laboratory Laboratory Maddy Lab Scenery [address] [facility] [place] [address] 03/22/2022 Office Visit Hematology Oncology Nik Melo MD [address] [place] [address] 03/22/2022 Hem/Onc Treatment Hematology Oncology [place], Chair 11 Hem Onc [facility] [address] [place] [address] 03/29/2022 Office Visit Urology Cm Rhodes MD [address] [facility] [address] [place] [address] Health Maintenance Due Date Last [...] of this encounter Implants Implanted Type Area Health Care Facilities Inspector Device Identifier Shelf Expiration Date Model / Serial / Lot Cath Power Port 6fr Clearvue - [id number] Implanted:Qty : 1 on 08/10/2021 by Alexander Rodriguez MD at OR [facility] Left: Subclavian CR BARD : PERIPHERAL VASCULAR 08/21/2021 [id number] / / documented as of this encounter Visit Diagnoses Diagnosis Encounter for antineoplastic chemotherapy- Primary Encounter for adjustment and management of vascular access device documented in this encounter Administered Medications Active Administered Medications - up to 3 most recent administrations Medication Order MAR Action Action Date Dose Rate Site hEParin 100 UNIT/ML Lock Flush inj 500 Units 500 Units (5 mL), IV Lock, PRN Other, IV Flush, Starting on Sun02/10/22 at 1426, Until 02/11/22 at 1425, For 24 hours, Do not flush if lock, PICC, or central line not in place; IV infusing or unable to flush. Given 02/10/2022 1:29 PM EDT 500 Units sodium chloride 0.9 % flush/inj 10 mL 10 mL, IV Push, PRN Other, IV Flush, Starting on 02/10/22 at 1426, Until 02/11/22 at 1425, For 24 hours, Do not flush if lock, PICC, or central line not in place; IV infusing or unable to flush. Given 02/10/2022 1:29 PM EDT 10 mL documented in this encounter Advance Directives Documents on File Type Date Recorded Patient Superintendent Overhead Distribution Expl 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 Care Teams Die Storage Clerk Relationship Specialty Start Date End Date Hortencia Leal PA-C [address] [facility], [place] [address] PCP - General Physician Newscast Producer 02/08/18 documented as of this encounter
--- OUTSIDE RECORDS SUMMARY | 2023-06-27 07:50 | External Medical Summary ---
Author Name Unknown Address Unknown Organization K09:[facility] [place] [address] Laboratory Report Ordering Provider Test Date Status SHAY CH 02/07/2022 09:43:24 Final Observation Date Value Abnormality Reference (Units ) Status BUN 02/07/2022 09:43:24 20 6-20 (mg/dL) Final Creatinine 02/07/2022 09:43:24 1.7 Above high normal 0.6-1.2 (mg/dL) Final Glomerular filtration rate/1.73 sq M.predicted [Volume Rate/Area] in Serum, Plasma or Blood by Creatinine-based formula (CKD-EPI) 02/07/2022 09:43:24 42 Below low normal >=60 (mL/min) Final Performing Location [facility] [place] [place] [address]
--- OUTSIDE RECORDS SUMMARY | 2023-06-27 07:50 | External Medical Summary | Summary of Care ---
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) Procedures ID LEUCOVORIN CALCIUM INJECTION ID PALONOSETRON HCL ID FLUOROURACIL INJECTION ID OXALIPLATIN ID INJECTION, NIVOLUMAB Nik Melo MD [address] [place] [address] Anc Hem/Onc [address] [place] [address] Referral ID Status Reason Start Date Expiration Date V isits Requested Visits Authorized [id number] Authorized 08/19/2021 08/19/2022 99 99 Encounter Details Date Type Department Care Team Description 01/11/2022 Hem/Onc Treatment Hematology/Oncology Treatment, [address] [place] [address] Maddy, Chair 6 Hem Onc [address] [place] [address] Adenocarcinoma of esophagus metastatic to intra-abdominal lymph [...] a day. As needed 0 Active [place]-3 Fatty Acids (FISH OIL) 1000 MG [...] Hematology Oncology [place], Nik Vargas MD [address] [place], [place] [id number] 02/08/2022 Hem/Onc Treatment Hematology Oncology 03/29/2022 Office Visit Urology Cm Rhodes MD [address] [address] Health Maintenance Due Date Last [...] of this encounter Implants Implanted Type Area Torch Brazer Device Identifier Shelf Expiration Date Model / Serial / Lot Cath Power Port 6fr Clearvue - [id number] Implanted:Qty : 1 on 08/10/2021 by Alexander Rodriguez MD at [facility] Left: Subclavian CR BARD : PERIPHERAL VASCULAR 08/21/2021 [id number] / / documented as of this encounter [...] to specify base solution and volume. Total [id number] mg/m2 for 46 hours, ONCE, 1 dose, [...] Documents on File Type Date Recorded Patient Rod Welder Expl 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 Care Teams Professor Of Genetics Relationship Specialty Start Date End Date Hortencia Leal PA-C [address] [facility] [address] PCP - General Physician Photographic Equipment Assembler 02/08/18 documented as of this encounter
--- OUTSIDE RECORDS SUMMARY | 2023-06-27 07:50 | External Medical Summary | Summary of Care ---
Author Name Unknown Organization [place] [address] Care Team Providers Care Criminal Analyst Name Role Phone Hortencia Leal PA-C Primary Care Provid er Reason for Visit * Reason Onset Date Comments Information 02/09/2022 Encounter Details Date Type Department Care Team Description 02/09/2022 Telephone Hematology/Oncology Treatment, [address] [place] [address] Nik Melo MD [address] [place] [address] Information Allergies Active Allergy Reactions Severity Noted [...] times a day. As needed 0 Active [place]-3 Fatty Acids (FISH OIL) 1000 MG Capsule [...] Miscellaneous Notes * Telephone Encounter - TANI Pelaez - 02/09/2022 12:09 PM EDT appts have been updated as requested. * Telephone Encounter - Venita Byers RN - 02/09/2022 9:34 AM EDT Order received for patient to discontinue FOLFOX, will continue opdivo every 4 weeks. Called patient. He states that he feels ok today, just a little tired so is taking it easy. Reviewed plan for future treatments. Patient verbalized understanding and appreciation for update. He would like to do lab same day as treatment now. Scheduling: please update patients future appts and give to patient when he comes for pump disconnect tomorrow. 02/21/22 labs- move to 02/22/22 prior to treatment 02/22/22 treatment- change to 2 hour appt "C1D1 opdivo" appts 03/07 and 03/08 can be cancelled 03/22/22: - labs "CBCd, CMP, TSH/T4" - follow up [place] Dr Melo [place] [address] schedule for 2 hour appt "C2D1 opdivo" Thanks! documented in this encounter Plan of Treatment Upcoming Encounters Date Type Specialty Care Team Description 02/10/2022 Immunization/Injection Hematology Oncolog y Maddy, Chair 9 Hem Onc Scenery [address] [place], [place] [address] 02/22/2022 Laboratory Laboratory [place], Lab Scenery [address] [place] [address] 02/22/2022 Hem/Onc Treatment Hematology Oncology [place], Chair 7 Hem Onc Scenery [address] [facility] [place], [place] [address] 03/22/2022 Laboratory Laboratory [place], Lab Scenery [address] [facility] [place], [place] [address] 03/22/2022 Office Visit Hematology Oncology Nik Melo MD [address] [place] [address] 03/22/2022 Hem/Onc Treatment Hematology Oncology [place], Chair 11 Hem Onc Scenery [address] [facility] [place] [address] 03/29/2022 Office Visit Urology RhodesCm MD [address] [address] Health Maintenance Due Date Last [...] of this encounter Implants Implanted Type Area Chemistry Professor Device Identifier Shelf Expiration Date Model / Serial / Lot Cath Power Port 6fr Clearvue - [id number] Implanted:Qty : 1 on 08/10/2021 by Alexander Rodriguez MD at OR [facility] Left: Subclavian CR BARD : PERIPHERAL VASCULAR 08/21/2021 [id number] / / documented as of this encounter Advance Directives Documents on File Type Date Recorded Patient Commercial Insulator Expl anation Advanced Directive Advanced Directive Advanced [...] were consensually agreed upon. Care Teams Criminal Analyst Relationship Specialty Start Date End Date Hortencia Leal PA-C [address] [place] [address] PCP - General Physician Business Law Instructor 02/08/18 documented as of this encounter
--- OUTSIDE RECORDS SUMMARY | 2023-06-27 07:50 | External Medical Summary | Summary of Care ---
Author Name Unknown Organization [place] [address] Care Team Providers Care Sheet Metal Assembler And Riveter Name Role Phone Hortencia Leal PA-C Primary Care Provid er Reason for Visit * Reason Comments Follow Up f/u * Evaluate & Treat - Unlimited Visits (Within 30 days (routine)) - Authorized Specialty Diagnoses / Procedures Referred By Lizzie reno Referred To Contact Hematology Oncology Diagnoses Adenocarcinoma esophagus Procedures Eval and treat Hortencia Leal PA-C [address] [place] [address] Referral ID Status Reason Start Date Expiration Date Visits Requested Visits Authorized [id number] Authorized Specialty Services Required 10/26/2021 10/27/[phone] Encounter Details Date Type Department Care Team Description 02/08/2022 Office Visit Hematology/Oncology [facility] [address] [place] [address] Nik Day MD [address] [place] [address] Prostate cancer (HCC)*; Adenocarcinoma of esophagus metastatic [...] times a day. As needed 0 Active Rochester-3 Fatty Acids (FISH OIL) [...] in this encounter Progress Notes * Nik Day MD - 02/08/2022 11:18 PM EDT Patient had allergic reaction to oxaloplatin and doesn't want to continue chemo. He agree to continue opdivo * Nik Day MD - 02/08/2022 10:09 AM EDT Outpatient Consult Note Data Source: Patient, Epic record. Data Source: Patient, Epic record. 02/08/2022 10:09 AM Heath [place] [id number] 76 year old Patient Encounter: HEMATOLOGY[facility]ONCOLOGY [facility] Cancer Diagnosis: - Metastatic esophageal [...] was consistent with adenocarcinoma moderately differentiated overall [place] score was 3+4=7with perineural invasion. Histopathology was [...] 0.6 cm HISTOLOGIC TYPE: Adenocarcinoma HISTOLOGIC GRADE ([place]): Primary pattern is: Grade 3: single acini of variable size and separation, cribriform and papillarypatterns Secondary pattern is: Grade 3: single acini of variable size and separation, cribriform and papillary patterns Lake[place] Score (primary + secondary) = 5-6: Moderately well differentiated Nodule #2, involves: right lateral apex and right apex Dimensions: 0.9 x 0.3 x 0.9 cm HISTOLOGIC TYPE: Adenocarcinoma HISTOLOGIC GRADE (Juan): Primary pattern is: Grade 3: single acini of variable size and separation, cribriform and papillarypatterns Secondary pattern is: Grade 3: single acini of variable size and separation, cribriform and papillary patterns [place] Score (primary + secondary) = 5-6: Moderately [...] mouth 2 times a day. As needed Rochester-3 Fatty Acids (FISH OIL) 1000 MG [...] Infusion 2,400 mg/m2 (Order-Specific) Intravenous Once Nik Day MD Social History Tobacco Use Smoking status: [...] addressed in an apparently satisfactory manner. Nik Day MD (This note was completed using the [...] Care as noted on the problem list. [email or web address] is a way you can talk to [...] lb 8 oz) documented in this encounter Miscellaneous Notes * Addendum Note - Nik Day MD - 02/08/2022 11:23 PM EDT Addended by: NIK DAY on: 02/08/2022 11:23 PM Modules accepted: Orders documented in this encounter Plan of Treatment Upcoming Encounters Date Type Specialty Care Team Description 02/10/2022 Immunization/Injection Hematology Oncolog y [place], Chair 9 Hem Onc Scenery [address] [place] [address] 02/21/2022 Laboratory Laboratory [place], Lab Scenery [address] [place] [address] 02/22/2022 Hem/Onc Treatment Hematology Oncology [place], Chair 7 Hem Onc Scenery [address] [place] [address] 03/07/2022 Laboratory Laboratory [place], Lab Scenery [address] [place] [address] 03/08/2022 Hem/Onc Treatment Hematology Oncology [place], Chair 11 Hem Onc Scenery [address] [place] [address] 03/29/2022 Office Visit Urology [place], Cm Carlson MD 27 [facility] [address] [place], [place] [id number] Health Maintenance Due Date Last Done Comments [...] of this encounter Implants Implanted Type Area Rn Hematology Device Identifier Shelf Expiration Date Model / Serial / Lot Cath Power Port 6fr Clearvue - [id number] Implanted:Qty : 1 on 08/10/2021 by Alexander Rodriguez MD at [facility] Left: Subclavian CR BARD : PERIPHERAL VASCULAR 08/21/2021 [id number] / / documented as of this encounter Visit Diagnoses Diagnosis Prostate cancer (HCC)- Primary Malignant neoplasm of prostate 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 Care Teams Sheet Metal Assembler And Riveter Relationship Specialty Start Date End Date Hortencia Leal PA-C [address] [place] [address] PCP - General Physician Equipment Service Lead 02/08/18 documented as of this encounter"
--- OUTSIDE RECORDS SUMMARY | 2023-06-27 07:50 | External Medical Summary | Summary of Care ---
Author Name Unknown Organization [place] [address] Care Team Providers Care Gas Truck Driver Name Role Phone Hortencia Leal PA-C Primary Care Provid er Reason for Visit * Reason Onset Date Comments Information 02/09/2022 Encounter Details Date Type Department Care Team Description 02/09/2022 Telephone Hematology/Oncology Treatment, [address] [place] [address] Nik Melo MD [address] [place] [address] Information Allergies Active Allergy Reactions Severity Noted [...] times a day. As needed 0 Active Zenda-3 Fatty Acids (FISH OIL) 1000 MG Capsule [...] - follow up with Dr Melo [place] [address] schedule for 2 hour appt "C2D1 opdivo" Thanks! documented in this encounter Plan of Treatment Upcoming Encounters Date Type Specialty Care Team Description 02/10/2022 Immunization/Injection Hematology Oncolog y [place], Chair 9 Hem Onc Scenery [address] [place], [place] [address] 02/22/2022 Laboratory Laboratory [place], Lab Scenery [address] [place] [address] 02/22/2022 Hem/Onc Treatment Hematology Oncology [place], Chair 7 Hem Onc Scenery 200 [facility] [place], [place] [address] 03/22/2022 Laboratory Laboratory [place], Lab Scenery [address] [facility] [place], [place] [address] 03/22/2022 Office Visit Hematology Oncology Nik Melo MD [address] [place] [address] 03/22/2022 Hem/Onc Treatment Hematology Oncology [place], Chair 11 Hem Onc Scenery [address] [place] [place] [address] 03/29/2022 Office Visit Urology RhodesCm MD [address] [address] Health Maintenance Due Date Last [...] of this encounter Implants Implanted Type Area Citrix Consultant Device Identifier Shelf Expiration Date Model / Serial / Lot Cath Power Port 6fr Clearvue - [id number] Implanted:Qty : 1 on 08/10/2021 by Alexander Rodriguez MD at OR [facility] Left: Subclavian CR BARD : PERIPHERAL VASCULAR 08/21/2021 [id number] / / documented as of this encounter Advance Directives Documents on File Type Date Recorded Patient Pharmacy Scheduler Expl 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 Care Teams Gas Truck Driver Relationship Specialty Start Date End Date Hortencia Leal PA-C [address] [place] [address] PCP - General Physician Memorandum Statement Clerk 02/08/18 documented as of this encounter
--- OUTSIDE RECORDS SUMMARY | 2023-06-27 07:50 | External Medical Summary | Summary of Care ---
Author Name Unknown Organization [place] [address] Care Team Providers Care Atomic Physics Teacher Name Role Phone Hortencia Leal PA-C Primary Care Provid er Reason for Visit * Reason Comments Chemotherapy Opdivo, FOLFOX * Evaluate & Treat - Unlimited Visits (Within 30 days (routine)) - Authorized Specialty Diagnoses / Procedures Referred By Lizzie reno Referred To Contact Hematology Oncology Diagnoses Adenocarcinoma esophagus Procedures Eval and treat Hortencia Leal PA-C [address] [facility] [place] [address] Referral ID Status Reason Start Date Expiration Date Visits Requested Visits Authorized [id number] Authorized Specialty Services Required 10/26/2021 10/27/[phone] Encounter Details Date Type Department Care Team Description 02/08/2022 Hem/Onc Treatment Hematology/Oncology Treatment, [place] [address] [place] [address] 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 As needed 0 Active B[place]-3 Fatty Acids (FISH OIL) 1000 MG Capsule [...] Sign Reading Time Taken Comments Blood Pressure 157/48 02/08/2022 1:15 PM EDT Pulse 63 02/08/2022 1:15 PM EDT Temperature 36.5 C (97.7 F) 02/08/2022 12:25 PM E DT Respiratory Rate 18 02/08/2022 12:50 PM EDT Oxygen Saturation 93% 02/08/2022 1:15 PM EDT RA Inhaled Oxygen Concentration - - Weight - - Height - - Body Mass Index - - documented in this encounter Nursing Notes * Eboni Stevens RN - 02/08/2022 3:50 PM EDT After resuming Oxaliplatin and leucovorin, pt's VS remained stable. He had been on 2L O2 to keep sats above 90%, sats continued to improve quickly, weaned to 1L then to RA for the last 45 min of tx. Pt reports he feels 'much better' but then states he feels 'just totally wiped out'. Pt is pale and appears tired. He was ambulated to the bathroom a few more times, he was stable on his feet. Pt expre ssed concern to have Oxaliplatin next cycle, he discussed with Dr. Melo prior to discharge today. It was decided chemo will be removed from pt's plan moving forward based on pt's reaction, his concerns to take drug again and his recent scan which showed no active disease. Pt reports he is 'very good with this'. RN notified pt's ride, his [id number] about reaction, per pt's permission. RN also notified pt's son Kian with pt's permission, staff strongly encouraging him to be with pt this evening so that he is not alone. Port assess for blood return, +blood return. Administered 5FU push, pttolerated well. Pt was connected to 5FU pump, pt discharged with pump infusing. Goals: pt to remain free from injury Possible barriers to meeting goals: ambulation with IV pole/tubing Stability of the patient: Moderately unstable - medium risk of patient condition declining or worsening Summary regarding today's goals: Met: pt had adverse reaction to chemo, was treated with PRN medications and was able to tolerate and commplete infuisons. Pt discharged in stable condition. * Eboni Stevens RN - 02/08/2022 1:23 PM EDT Pt reports he 'feels much better. I don't feel flushed anymore'. Pt ambulated to the bathroom, thisbrought his sats on RA to 95%. BP and heart rate are stable. Will continue to monitor VS. Pt resumed on Oxaliplatin and leucovorin at this time. [address] Melo's order. * Lakeisha Cortez RN - 02/08/2022 12:27 PM EDT 1215- patient went to BR. 1218- patient walking back to chair from BR. He said to this RN "I think i'm having a reaction." Patients face flushed, patient states "I feel something in my chest." Oxaliplatin and leucovorin stopped. 1220: 25mg IVP benadryl given. Danny Solitario RN to assist, disconnected chemotherapy, started primaryNS line at 500 ml/hr. Patient states his chest still feels "weird." denies SOB, back pain, itching. 1224: Solucortef given d/t no change in symptoms. VS documented per flow sheets. Dr Melo notified. 1230: patient states he feels a little better, states his stomach is upset. 1232: patient began shaking/chils, Dr Melo in to see patient, requesting demerol 25 MG IVP be given 1234: demerol given. 1235: Blood glucose finger stick of 163 1238: patient states he feels dizzy, patient placed in semi fowlers in recliner chair. This improved the dizziness. NS continues to infuse at 500 ml/hr. Dr Melo would like to re-trial in 15-20 minutes. * Eboni Stevens RN - 02/08/2022 10:58 AM EDT Ch 1. Pt arrived today for Opdivo and FOLFOX infusions. Pt had labs performed yesterday, results WNL. Pt met with Dr. Melo to discuss how he has been feeling. Pt reports he is feeling better, his appetite has improved, slightly more energy, he states he typically looses his appetite, occasional mild nausea. He does report some mild constipation, reports the chemo makes this worse. Further discussed PRN meds to manage, he states he has senna, encouraged pt to take more regularly. He denies painand neuropathy. Chemo agents Opdivo, FOLFOX Appetite good Nausea/Vomiting denies Diarrhea denies Constipation mild Mucositis denies Fatigue mild Bleeding denies Infection denies Rash denies Numbness tingling denies Pain denies Radiation no ABN Labs WNL Alt in Tx: no Return in 2 day Safety and Risk for Injury Patient will remain free from injury. Ensure appropriate safety devices are available. Provide and maintain safe environment. documented in this encounter Plan of Treatment Upcoming Encounters Date Type Specialty Care Team Description 02/10/2022 Immunization/Injection Hematology Oncolog y [place], Chair 9 Hem Onc Scenery [address] [place], [place] [address] 02/21/2022 Laboratory Laboratory [place], Lab Scenery [address] [place], [place] [address] 02/22/2022 Hem/Onc Treatment Hematology [place]cology [place], Chair 7 Hem Onc Scenery [address] [place] [address] 03/07/2022 Laboratory Laboratory [place], Lab Scenery [address] [place], [place] [address] 03/08/2022 Hem/Onc Treatment Hematology Oncology [place], Chair 11 Hem Onc Scenery [address] [place] [address] 03/29/2022 Office Visit Urology [place], Cm Carlson MD [address] [place] [address] Health Maintenance Due Date Last Done [...] of this encounter Implants Implanted Type Area Janitor And Cleaner Device Identifier Shelf Expiration Date Model / Serial / Lot Cath Power Port 6fr Clearvue - [id number] Implanted:Qty : 1 on 08/10/2021 by Alexander Rodriguez MD at OR [facility] Left: Subclavian CR BARD : PERIPHERAL VASCULAR 08/21/2021 [id number] / / documented as of this encounter [...] Intravenous, at 50 mL/hr, CONTINUOUS, Starting on Sun02/08/22 at 1100, Until Sun02/08/22 at 2059 Start Infusion 02/08/2022 11:05 AM EDT 500 mL 50 mL/hr diphenhydrAMINE (Benadryl) inj 50 mg 50 mg, IV Push, ONCE PRN Other, Hypersensitivity Reaction, Starting on Sun02/08/22 at 1052, Until Chandrika 02/09/22 at 1051, For 24 hours Given 02/08/2022 12:20 PM EDT 25 mg EPINEPHrine 1 MG/ML inj 0.3 mg 0.3 mg, Intramuscular, ONCE PRN Other, Hypersensitivity Reaction or Anaphylaxis, Starting on Sun02/08/22 at 1052, Until Chandrika 02/09/22 at 1051, For 24 hours hEParin 100 UNIT/ML Lock Flush inj 500 Units 500 Units (5 mL), IV Lock, PRN Other, IV Flush, Starting on Sun02/08/22 at 1052, Until Chandrika 02/09/22 at 1051, For 24 hours, Do not flush if lock, PICC, or central line not in place; IV infusing or unable to flush. Hydrocortisone Na Succinate PF (Solu-Cortef) inj 100 mg 100 mg, IV Push, ONCE PRN Other, Hypersensitivity Reaction, Starting on Sun02/08/22 at 1052, Until Chandrika 02/09/22 at 1051, For 24 hours Given 02/08/2022 12:24 PM EDT 100 mg sodium chloride 0.9 % flush/inj 10 mL 10 mL, IV Push, PRN Other, IV Flush, Starting on Sun02/08/22 at 1052, Until Chandrika 02/09/22 at 1051, For 24 hours, Do not flush if lock, PICC, or central line not in place; IV infusing or unable to flush. Inactive Administered Medications - up to 3 most recent administrations Medication Order MAR Action Action Date Dose Rate Site Dexamethasone (Decadron) tab 12 mg 12 mg, Oral, ONCE, On Sun02/08/22 at 1100, For 1 dose Given 02/08/2022 11:12 AM EDT 12 mg Fluorouracil (5-Fu) 4,425 mg for Home Infusion 4,425 mg (rounded from 4,416 mg = 2,400 mg/m2 1.84 m2 Order-specific BSA), Intravenous, Administer over 46 Hours, Home Infusion Pharmacy to specify base solution and volume. Total Jszs=0416 mg/m2 for 46 hours, ONCE, 1 dose, On Sun02/08/22 at 1315 Start Infusion 02/08/2022 3:20 PM EDT 4,425 mg Fluorouracil (5-Fu) inj 725 mg 725 mg (rounded from 736 mg = 400 mg/m2 1.84 m2 Order-specific BSA), IV Push, ONCE, 1 dose, On Sun02/08/22 at 1300 Given 02/08/2022 3:13 PM EDT 725 mg leucovorin calcium 750 mg in D5W 250 mL INFUSION 750 mg (rounded from 736 mg = 400 mg/m2 1.84 m2 Order-specific BSA), IV Piggyback, at 125 mL/hr Administer over 120 Minutes, ONCE, 1 dose, On Sun02/08/22 at 1100, Before 5-FU Restarted 02/08/2022 1:22 PM EDT 125 mL/hr documented in this encounter Advance Directives Documents on File Type Date Recorded Patient Appliance Technician Expl 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 Care Teams Atomic Physics Teacher Relationship Specialty Start Date End Date Hortencia Leal [facility]-C [address] [facility] [address] PCP - General Physician Radiologist Physician 02/08/18 documented as of this encounter
--- OUTSIDE RECORDS SUMMARY | 2023-06-27 07:50 | External Medical Summary ---
Author Name Unknown Address Unknown Organization K09:[facility] [place] [address] Laboratory Report Ordering Provider Test Date Status SHAY CH 02/07/2022 09:43:24 Final Observation Date Value Abnormality Reference (Units ) Status Nucleated erythrocytes/100 leukocytes [Ratio] in Blood by Automated count 02/07/2022 09:43:24 Final Anisocytosis [Presence] in Blood by Light microscopy 02/07/2022 09:43:24 Slight Abnormal None Seen Final Macrocytes [Presence] in Blood by Light microscopy 02/07/2022 09:43:24 Present Abnormal None Seen Final Performing Location [facility] [place] [address]
--- OUTSIDE RECORDS SUMMARY | 2023-06-27 07:51 | External Medical Summary | Summary of Care ---
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 documented as of this encounter (statuses as of 01/24/2022) Immunizations Name Administration Dates Next Due COVID-19 [...] Sign Reading Time Taken Comments Blood Pressure 164/80 01/24/2022 9:45 AM EDT Pulse 68 01/24/2022 9:45 AM EDT Temperature 36.4 C (97.5 F) 01/24/2022 9:45 AM ED T Respiratory Rate 16 01/24/2022 9:45 AM EDT Oxygen Saturation 98% 01/24/2022 9:45 AM EDT Inhaled Oxygen Concentration - - Weight 72.4 kg (159 lb 9.6 oz) 01/24/2022 9:45 A M EDT Height - - Body Mass Index 27.4 08/10/2021 8:15 AM EDT documented in this encounter Progress Notes * LYLE Gilliland - 01/23/2022 4:05 PM EDT Hematology/Oncology Outpatient Clinic note [facility] [address] [facility] [place] [address] Name: Heath Austin Date: 01/24/2022 CHIEF COMPLAINT: Heath Austin is a 76 year old male patient here today for f/u visit. Patient of Dr. Melo. History from patient chart, my progress note from 12/27/2021, and confirmed with patient. Cancer Diagnosis: Metastatic esophageal cancer Current Treatment: FOLFOX On 11/15/2021 w/ Cycle 5 addednivolumab 240 mg once every 2 weeks Previous Treatment: None Oncologic History : 76-year-old male with past [...] was consistent with adenocarcinoma moderately differentiated overall Polo score was 3+4=7with perineural invasion. Histopathology was [...] radical prostatectomy: Adenocarcinoma, moderately poorly differentiated Overall Polo score 3+4=7 High grade prostatic intraepithelial neoplasia [...] 0.6 cm HISTOLOGIC TYPE: Adenocarcinoma HISTOLOGIC GRADE (Polo): Primary pattern is: Grade 3: single acini of variable size and separation, cribriform and papillarypatterns Secondary pattern is: Grade 3: single acini of variable size and separation, cribriform and papillary patterns Polo Score (primary + secondary) = 5-6: Moderately [...] 2.1 cm HISTOLOGIC TYPE: Adenocarcinoma HISTOLOGIC GRADE (Polo): Primary pattern is: Grade 3: single acini [...] Category: Benign. Final Interpretation: Benign mesothelial cells. PET CT on 10/26/2021IMPRESSION: Positive response to therapy: 1. Interval resolution of the metabolic activity within circumferentially wall thickening of the distal esophagus; gastric fundus; and lesser gastric curvature. 2. 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 HISTORY OF PRESENT ILLNESS: Heath Austin is a 76 year old male with a history as outlined above. Currently here for f/u visit and C9D1 of chemo. He has intermittent issues w/ cold sensitivity for 4 days after the treatment. No lingering neuropathic pain. His appetite is poor, but he is able to eat 2 small meals a day. He also drinks Ensure twice daily. Occasional nausea relieved Zofran. No fever or vomiting. He does haveintermittent diarrhea relieved w/ Imodium. No pain. Past Medical History: Diagnosis Date Actinic keratosis [...] unguium Ventral hernia without obstruction or gangrene Social History Socioeconomic History Marital status: Spouse name: Not on file Number of children: Not on file Years of education: Not on file Highest education level: Not on file Occupational History Not on file Tobacco Use Smoking status: Never Smoker Smokeless tobacco: Never Used Vaping Use Vaping Use: Never used Substance and Sexual Activity Alcohol use: No Drug use: No Sexual activity: Not on file Other Topics Concern Not on file Social History Narrative Not on file Social Determinants of Health Financial Resource Strain: Not on file Food Insecurity: Not on file Transportation Needs: Not on file Physical Activity: Not on file Stress: Not on file Social Connections: Not on file Intimate Partner Violence: Not on file Housing Stability: Not on file Past Surgical History: Procedure Laterality Date COLONOSCOPY COLONOSCOPY, DIAGNOSTIC (RECTUM) 03/07/2013 path shows adenomatous polyp repeat in 5 years COLONOSCOPY, DIAGNOSTIC (RECTUM) 04/12/2018 adenomatous polyps, diverticulosis, repeat 3 yrs/COLONOSCOPY FLEXIBLE PROXIMAL DIAGNOSTIC performedby Roz Tracey MD at [facility] COLONOSCOPY, DIAGNOSTIC (RECTUM) 07/15/2021 COLONOSCOPY FLEXIBLE PROXIMAL DIAGNOSTIC performed by Roz Tracey MD at [facility] EGD, FLEXIBLE, DIAGNOSTIC 07/15/2021 ESOPHAGOGASTRODUODENOSCOPY (EGD), FLEXIBLE, TRANSORAL, DIAGNOSTIC performed by Roz Tracey MD at [facility] EGD, W/ENDOSCOPIC US 08/02/2021 ESOPHAGOGASTRODUODENOSCOPY (EGD), FLEXIBLE, TRANSORAL, ENDOSCOPIC ULTRASOUND performed by Brendan Gomez MD at [facility] INSER TUNN ACC DEV;5 YRS/OLDER N/A 08/10/2021 INSERT TUNNELED CENTRAL VENOUS ACCESS WITH SUBQ PORT performed by Alexander Rodriguez MD at OR [facility] KNEE ARTHROSCOPY, DIAGNOSTIC 1989 Knee Arthroscopy right LAPAROSCOPY,BIOPSY N/A 08/10/2021 LAPAROSCOPY WITH BIOPSY performed by Alexander Rodriguez MD at OR [facility] NEEDLE/PUNCH BIOPSY OF PROSTATE 01/05/2011 BIOPSY PROSTATE NEEDLE performed by EYAD LANDRUM at [facility] PROSTATECTOMY, RETROPUBIC RADICAL, LAP 10/30/2011 ROBOTIC LAPAROSCOPIC PROSTATECTOMY RETROPUBIC RADICAL performed by EYAD LANDRUM at OR [facility] REMOVAL OF TONSILS, UNDER AGE 12 Tonsillectomy REPAIR INITIAL INCISIONAL HERNIA 04/18/2012 Laparoscopic ventral hernia repair with 4 x [address] Adams 04/18/12 US ECHO TRANSRECTAL/PROSTATE 01/05/2011 ULTRASOUND TRANSRECTAL performed by EYAD LANDRUM at OR [facility] Family History Problem Relation Age of Onset Colon cancer Father Review of patient's allergies indicates: Allergen Reactions Amlodipine dizziness Codeine Sulfate Other (Please comment) hyperactivity Hctz [Hydrochlorothiazide] hypercalcemia Current Outpatient Medications Medication Sig Dispense Refill [...] mouth 2 times a day. As needed Pheba-3 Fatty Acids (FISH OIL) 1000 MG Capsule Take 1,000 mg by mouth daily. 2 capsules by mouth twice daily Alogliptin Benzoate 12.5 MG TABS Take 12.5 mg by mouth daily. Ferrous Sulfate 325 (65 Fe) MG Oral Tablet (Feosol) TAKE ONE TABLET BY MOUTH EVERY 48 HOURS SAME IRON Vitamin C 500 MG Oral Capsule Take by mouth. Dexamethasone 4 MG Oral Tablet (Decadron) 12 mg (3 tab) 12 and 6 hours before chemotherapy (Patient not taking: Reported on 08/10/2021) 40 Tab 0 traMADol HCl 50 MG Oral Tablet (Ultram) Take 1 Tab by mouth every 6 hours as needed for Pain, Severe. (Patient not taking: Reported on 08/16/2021) 10 Tab 0 Prochlorperazine Maleate 10 MG Oral Tablet (Compazine) [...] medications for this visit. REVIEW OF SYSTEMS: Performance Status: Normal - ECOG 1 See HPI, otherwise negative. OBJECTIVE: Filed Vitals: 01/24/22 0945 BP: 164/80 Pulse: 68 Resp: 16 Temp: 36.4 C (97.5 F) TempSrc: Tympanic SpO2: 98% Weight: 72.4 kg (159 lb 9.6 oz) Wt Readings from Last 5 Encounters: 01/24/22 72.4 kg (159 lb 9.6 oz) 01/11/22 75.2 kg (165 lb 12.8 oz) 12/28/21 76.3 kg (168 lb 1.8 oz) 12/28/21 76.5 kg (168 lb 11.2 oz) 12/19/21 75.3 kg (166 lb) PHYSICAL EXAM: General Appearance: Normal - Healthy appearing patient in no acute distress Skin: Normal- No rashes, lesions or petechiae. HEENT: Normal - No oral or pharyngeal masses, ulceration or thrush noted, no sinus tenderness Lymph Nodes: Normal - No palpable lymph nodes in the neck or supraclavicular areas Lungs/Thorax: Normal - Clear to auscultation Heart: Normal - Regular rate and rhythm, normal S1, S2, no appreciable murmurs, rubs, gallops Pulses/Extremities: Normal - 2+ throughout and symmetrical, no edema b/l Abdomen: Normal - Soft, nontender, bowel sounds present, no appreciable hepatosplenomegaly, no palpable masses Musculoskeletal: Normal - No pain on palpation over bony prominence, no joint or bony deformity Neurologic: Normal - Grossly intact Psyche: No vegetative signs of depression. LABS: Results for orders placed or performed in visit on 01/24/22 COMPREHENSIVE METABOLIC PANEL Result Value Ref Range BUN 16 6 - 20 mg/dL Creatinine 1.8 (H) 0.6 - 1.2 mg/dL Estimated Glomerular Filtration Rate 39 (L) >=60 mL/min Sodium 140 135 - 146 mmol/L Potassium 3.9 3.5 - 5.1 mmol/L Chloride 103 98 - 107 mmol/L CO2 24 22 - 32 mmol/L Anion Gap 13 7 - 15 mmol/L Glucose 183 (H) 70 - 120 mg/dL Albumin 4.4 3.8 - 5.0 g/dL AST 20 10 - 50 U/L Alkaline Phosphatase 65 35 - 130 U/L Bilirubin, Total 0.5 <=1.2 mg/dL Calcium 10.2 8.4 - 10.2 mg/dL Protein 7.2 6.0 - 8.3 g/dL ALT 11 10 - 50 U/L CBC Result Value Ref Range WBC 3.77 (L) 4.00 - 10.80 K/uL RBC 3.13 (L) 4.50 - 5.25 M/uL HGB 10.6 (L) 14.0 - 16.8 g/dL HCT 32.2 (L) 40.0 - 48.4 % MCV 102.9 (H) 82.0 - 99.5 fL MCH 33.9 27.0 - 34.0 pg MCHC 32.9 32.0 - 36.0 g/dL RDW 18.0 (H) 11.5 - 15.5 % PLT 93 (L) 140 - 400 K/uL MPV 9.7 6.6 - 11.1 fL DIFFERENTIAL, AUTOMATED Result Value Ref Range WBC 3.77 (L) 4.00 - 10.80 K/uL Neutrophils % 43.2 40.0 - 75.0 % Lymphocytes % 36.9 18.0 - 42.0 % Monocytes % 16.2 (H) 1.0 - 11.0 % Eosinophils % 3.2 0.0 - 6.0 % Basophils % 0.5 0.0 - 2.0 % Absolute Neutrophils 1.63 (L) 1.80 - 7.70 K/uL Absolute Lymphocytes 1.39 1.00 - 4.80 K/ul Absolute Monocytes 0.61 0.00 - 1.10 K/uL Absolute Eosinophils 0.12 0.00 - 0.70 K/uL Absolute Basophils 0.02 0.00 - 0.20 K/uL DIFFERENTIAL, TECHNOLOGIST REVIEW Result Value Ref Range nRBCs Anisocytosis Slight (A) None Seen Macrocytosis Present (A) None Seen IMPRESSION: 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 76-year-old male with history of prostate cancer recently [...] consistent with the adenocarcinoma her 2 Kristen is positive. Further testing including PDL1 and MSI/MMR was completed. PDL1 is positive so pt is being treated with nivolumab (added on 11/15/21 w/ cycle 5) plus FOLFOX. On08/29/2021t startedMODIFIED FOLFOX6 5FU (12 Cycles/14 Days). On 09/13/2021 pt had a transfusion [id number] of PRBC's for a HGB of 7.2. PET CT on 10/26/2021IMPRESSION: Positive response to therapy: 1. Interval resolution of the metabolic activity within circumferentially wall thickening of the distal esophagus; gastric fundus; and lesser gastric curvature. 2. 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 On 11/15/2021 w/ Cycle 5 addednivolumab 240 mg once every 2 weeks. Pt cont's to lose about 5lb/ month. Poor appetite. I have offered Olanzapine to help w/ depression and appetite, but pt politely declined. Mild side effects from tx e.g., nausea and occasional diarrhea. Side effects well controlled w/ Zofran and/or Imodium. Functional status is good. Pt is able to ambulate independently. Labs reviewed. PLT's are low at 93. No issues w/ unusual bruising/bleeding. Reviewed lab results w/ Dr. Melo. PLAN: HOLD tx tomorrow due to thrombocytopenia. RTC on 01/31/22 for labs: TSH, CBCD and CMP. RTC on 02/01/22 for chemo. RTC on 02/03/22 for disconnect. Will try to reschedule the PET CT to 01/30 or 01/31/22. RTC on 02/08/22 w/ Dr. Melo to review the results of the PET CT. I had a discussion with Heath Austin regarding the plan of care, treatment and other issues. Thirty minutes were spent counseling the patient face to face. The total time spent in the appointment was 35 minutes. LYLE Bates documented in this encounter Nursing Notes * Venecia Carlin CMA - 01/24/2022 9:46 AM EDT Patient identifed by name and [...] it for you? ALREADY ACTIVE Filed Vitals: 01/24/22 0945 BP: 164/80 Pulse: 68 Resp: 16 Temp: 36.4 C (97.5 F) TempSrc: Tympanic SpO2: 98% Weight: 72.4 kg (159 lb 9.6 oz) documented in this encounter Plan of Treatment Upcoming Encounters Date Type Specialty Care Team Description 01/25/2022 Imaging Radiology 01/31/2022 Laboratory [facility] [place], [address] [place] [address] 02/01/2022 Hem/Onc Treatment Hematology Oncology [place], [address] Hem On[address] [place] [address] 02/08/2022 Office Visit Hematology Oncology Nik Melo MD [address] [place] [address] 03/29/2022 Office Visit Urology Cm Rhodes MD [address] [place] [id number] Health Maintenance Due Date Last Done [...] SCREEN EVERY 3 YRS-AGE 45 AND ABOVE 01/24/2025 01/24/2022, 01/10/2022, 12/27/2021, Additional history exists Influenza Vaccine (FLU shot) Completed 06/2021, 08/21/2018, 07/14/2017, Additional history exists GARDASIL-HPV IMMUNIZATION SERIES Aged Out No longer eligible based on patient's age to complete this topic MENINGOCOCCAL (MENACTRA/MENVEO) Aged Out No longer eligible based on patient's age to complete this topic documented as of this encounter Implants Implanted Type Area Cabinet Maker Device Identifier Shelf Expiration Date Model / Serial / Lot Cath Power Port 6fr Lisavsebastian - [id number] Implanted:Qty : 1 on 08/10/2021 by Alexander Rodriguez MD at OR [facility] Left: Subclavian CR BARD : PERIPHERAL VASCULAR 08/21/2021 [id number] / / documented as of this encounter Visit Diagnoses Diagnosis 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)- Primary Malignant neoplasm of other specified sites of stomach 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 Care Teams Ruby Rails Developer Relationship Specialty Start Date End Date Hortencia Leal PA-C [address] [facility] [place] [address] PCP - General Physician Information Services Vice President 02/08/18 documented as of this encounter
--- OUTSIDE RECORDS SUMMARY | 2023-06-27 07:51 | External Medical Summary ---
Author Name Unknown Address Unknown Organization [id number]:[facility] [place] [place] [address] Laboratory Report Ordering Provider Test Date Status SHAY CH 01/31/2022 09:25:24 Final Observation Date Value Abnormality Reference (Units ) Status BUN 01/31/2022 09:25:24 14 6-20 (mg/dL) Final Creatinine 01/31/2022 09:25:24 1.6 Above high normal 0.6-1.2 (mg/dL) Final Glomerular filtration rate/1.73 sq M.predicted [Volume Rate/Area] in Serum, Plasma or Blood by Creatinine-based formula (CKD-EPI) 01/31/2022 09:25:24 44 Below low normal >=60 (mL/min) Final Performing Location [facility] [place] [address]
--- OUTSIDE RECORDS SUMMARY | 2023-06-27 07:51 | External Medical Summary | Summary of Care ---
Author Name Unknown Organization [place] [address] Care Team Providers Care Grey Goods Tester Name Role Phone Hortencia Leal PA-C Primary Care Provid er Reason for Visit * Reason Onset Date Comments Appointment 01/31/2022 Encounter Details Date Type Department Care Team Description 01/31/2022 Telephone Hematology/Oncology Treatment, [address] [place] [address] Nik Melo MD [address] [place] [address] Appointment Allergies Active Allergy Reactions Severity Noted Date Comments Amlodipine 11/02/2020 dizziness Codeine Sulfate Other (Please comment) 10/26/19 11 hyperactivity Hydrochlorothiazide 11/02/2020 hypercalcemia documented as of this encounter (statuses as of 01/31/2022) Medications Medication Sig Dispensed Refills Start Date [...] times a day. 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 Pt is scheduled for labs at on 02/07 at 10am. Appt with Dr. Melo on 02/08 at 10am & treatment at 10:30am. Pt is ok with dates and times of appts. * Telephone Encounter - Lakeisha Cortez RN - 01/31/2022 12:47 PM EDT ANC 0.[address] PLT [address] Melo he would like to defer x 1 week Called and spoke to patient. He denies bleed/fever/chills. Advised him to monitor temp, good hand hygiene, if anything changes to call us, but we will have scheduling contact him to get appts set up for next week. He verbalizes understanding. Vitaline aware of pt being held. Scheduling: please call patient to reschedule appts for tomorrow. 1. Lab appointment in the morning at [facility] for "CBCD CMP TSH/T4" on 02/07 2. LEAVE appt with Dr Melo on 02/08. 3. Move treatment appointment for tomorrow to after appointment with Dr Melo on 02/08. Thank you! documented in this encounter Plan of Treatment Upcoming Encounters Date Type Specialty Care Team Description 02/07/2022 Laboratory [facility] [address] [address] [place] [address] 02/08/2022 Office Visit Hematology Oncology Nik Melo MD [address] [place] [address] 02/08/2022 Hem/Onc Treatment Hematology Oncology 03/29/2022 Office Visit Urology Cm Rhodes MD 27 [facility] [address] [place] [address] Health Maintenance Due Date Last [...] SCREEN EVERY 3 YRS-AGE 45 AND ABOVE 01/31/2025 01/31/2022, 01/24/2022, 01/10/2022, Additional history exists Influenza Vaccine (FLU shot) Completed 06/2021, 08/21/2018, 07/14/2017, Additional history exists GARDASIL-HPV IMMUNIZATION SERIES Aged Out No longer eligible based on patient's age to complete this topic MENINGOCOCCAL (MENACTRA/MENVEO) Aged Out No longer eligible based on patient's age to complete this topic documented as of this encounter Implants Implanted Type Area Surface Miner Device Identifier Shelf Expiration Date Model / Serial / Lot Cath Power Port 6fr Clearvue - [id number] Implanted:Qty : 1 on 08/10/2021 by Alexander Rodriguez MD at OR [facility] Left: Subclavian CR BARD : PERIPHERAL VASCULAR 08/21/2021 [id number] / / documented as of this encounter Advance Directives Documents on File Type Date Recorded Patient Delicatessen Department Manager Expl 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 Care Teams Grey Goods Tester Relationship Specialty Start Date End Date Hortencia Leal PA-C [address] [facility] [address] PCP - General Physician Trial Judge 02/08/18 documented as of this encounter
--- OUTSIDE RECORDS SUMMARY | 2023-06-27 07:51 | External Medical Summary ---
Author Name Unknown Address Unknown Organization K01:[facility] - [address] [place] [address] Laboratory Report Ordering Provider Test Date Status SHAY CH 01/31/2022 09:25:24 Final Observation Date Value Abnormality Reference (Units ) Status TSH 01/31/2022 09:25:24 0.59 0.27-4.20 (uIU/mL) Final Performing Location LABORATORY [facility] - [address] [place] [address]
--- OUTSIDE RECORDS SUMMARY | 2023-06-27 07:51 | External Medical Summary ---
Author Name Unknown Address Unknown Organization [id number]:[facility] [place] [address] Laboratory Report Ordering Provider Test Date Status SHAY CH 01/31/2022 09:25:24 Final Observation Date Value Abnormality Reference (Units ) Status WBC, Total 01/31/2022 09:25:24 2.72 Below low normal 4. 00-10.80 (K/uL) Final RBC 01/31/2022 09:25:24 3.03 Below low normal 4.5 0-5.25 (M/uL) Final Hemoglobin 01/31/2022 09:25:24 10.4 Below low normal 14 .0-16.8 (g/dL) Final HCT 01/31/2022 09:25:24 32.1 Below low normal 40. 0-48.4 (%) Final MCV 01/31/2022 09:25:24 105.9 Above high normal 82 .0-99.5 (fL) Final MCH 01/31/2022 09:25:24 34.3 Above high normal 27 .0-34.0 (pg) Final MCHC 01/31/2022 09:25:24 32.4 32.0-36.0 (g/dL) Final RDW 01/31/2022 09:25:24 18.5 Above high normal 11 .5-15.5 (%) Final Platelets 01/31/2022 09:25:24 102 Below low normal 140 -400 (K/uL) Final MPV 01/31/2022 09:25:24 8.9 6.6-11.1 ( fL) Final Performing Location [facility] [place] [address]
--- OUTSIDE RECORDS SUMMARY | 2023-06-27 07:51 | External Medical Summary ---
Author Name Unknown Address Unknown Organization K09:[facility] [place] [place] [address] Laboratory Report Ordering Provider Test Date Status SHAY CH 01/24/2022 08:59:18 Final Observation Date Value Abnormality Reference (Units ) Status BUN 01/24/2022 08:59:18 16 6-20 (mg/dL) Final Creatinine 01/24/2022 08:59:18 1.8 Above high normal 0.6-1.2 (mg/dL) Final Glomerular filtration rate/1.73 sq M.predicted [Volume Rate/Area] in Serum, Plasma or Blood by Creatinine-based formula (CKD-EPI) 01/24/2022 08:59:18 39 Below low normal >=60 (mL/min) Final Performing Location [facility] [place] [address]
--- OUTSIDE RECORDS SUMMARY | 2023-06-27 07:51 | External Medical Summary | Summary of Care ---
Author Name Unknown Organization [place] [address] Care Team Providers Care Storm Chaser Name Role Phone Hortencia Leal PA-C Primary Care Provid er Reason for Visit * Reason Comments Outpatient Testing Encounter Details Date Type Department Care Team Description 01/31/2022 Laboratory Laboratory [facility] [place] [address] [place] [address] [facility] Lab [facility] 200 [facility] [place] [address] 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 [...] Encounters Date Type Specialty Care Team Description 02/01/2022 Hem/Onc Treatment Hematology Oncology [place], Chair [address] [address] 02/08/2022 Office Visit Hematology Oncology Nik Melo MD 200 [place] [address] 03/29/2022 Office Visit Urology Cm Rhodes MD [address] [place] [phone] Pending Results Name Type Priority Associated Diagnoses Date /Time COMPREHENSIVE METABOLIC PANEL Lab STAT 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) 01/31/2022 9:25 AM EDT TSH WITH FREE T4 IF INDICATED Lab STAT 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) Encounter for long-term (current) use of medications 01/31/2022 9:25 AM EDT Health Maintenance Due Date Last [...] of this encounter Implants Implanted Type Area Battalion Fire Chief Device Identifier Shelf Expiration Date Model / Serial / Lot Cath Power Port 6fr Clearvue - [id number] Implanted:Qty : 1 on 08/10/2021 by Alexander Rodriguez MD at [facility] Left: Subclavian CR BARD : PERIPHERAL VASCULAR 08/21/2021 [id number] / / documented as of this encounter Procedures Procedure Name Priority Date/Time Associated Diagnosis Comments DIFFERENTIAL, AUTOMATED STAT 01/31/2022 9:25 AM EDT 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) CBC WITH WBC DIFFERENTIAL STAT 01/31/2022 9:25 AM EDT 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) CBC STAT 01/31/2022 9:25 AM EDT 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) DIFFERENTIAL, TECHNOLOGIST REVIEW Routine 01/31/2022 9:25 AM EDT 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) documented in this encounter Results * (ABNORMAL) DIFFERENTIAL, TECHNOLOGIST REVIEW (01/31/2022 9:25 AM EDT) nRBCs LAB[facility]ATORY [facility] [place] 56- Anisocytosis Slight(A) None Seen [facility] [place] 56-02 Macrocytosis Present(A) None Seen [facility]AT[facility] [place] 56-02 Specimen Blood - Venous blood specime n (specimen) LABORATORY [place] 56- [address] [place] [address] * (ABNORMAL) DIFFERENTIAL, AUTOMATED (01/31/2022 9:25 AM EDT) [facility] WBC 2.72(L) 4.00 - 10.80 K/uL [place] [address] Neutrophils % 32.4(L) 40.0 - 75.0 % LABORATORY [facility] 56- Lymphocytes % 39.3 18.0 - 42.0 % [address] Monocytes % 22.4(H) 1.0 - 11.0 % LABORATORY [facility] 56 Eosinophils % 5.5 0.0 - 6.0 % [facility]ATORY [facility] 56 Basophils % 0.4 0.0 - 2.0 % [facility] 56- Absolute Neutrophils 0.88(L) 1.80 - 7.70 K/uL [place] [address] Absolute Lymphocytes 1.07 1.00 - 4.80 K/ul [address] Absolute Monocytes 0.61 0.00 - 1.10 K/uL [place] [address] Absolute Eosinophils 0.15 0.00 - 0.70 K/uL [place] [address] Absolute Basophils 0.01 0.00 - 0.20 K/uL [address] Specimen Blood - Venous blood specime n (specimen) [place] [address] [place] [address] * (ABNORMAL) CBC (01/31/2022 9:25 AM EDT) [facility] WBC 2.72(L) 4.00 - 10.80 K/uL [place] [address] RBC 3.03(L) 4.50 - 5.25 M/uL [place] [address] HGB 10.4(L) 14.0 - 16.8 g/dL [place] [address] HCT 32.1(L) 40.0 - 48.4 % [facility]ATORY [facility] 56- MCV 105.9(H) 82.0 - 99.5 fL LABORATORY [facility] 56- MCH 34.3(H) 27.0 - 34.0 pg [facility] 56- MCHC 32.4 32.0 - 36.0 g/dL [address] RDW 18.5(H) 11.5 - 15.5 % [facility] 56- PLT 102(L) 140 - 400 K/uL LABORATORY [facility] - MPV 8.9 6.6 - 11.[address] 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 Care Teams Storm Chaser Relationship Specialty Start Date End Date Hrotencia Leal PA-C [address] [facility], [place] [address] PCP - General Physician Videotape Editor 02/08/18 documented as of this encounter
--- OUTSIDE RECORDS SUMMARY | 2023-06-27 07:51 | External Medical Summary | Summary of Care ---
Author Name Unknown Organization [place] [address] Care Team Providers Care Drosophere Operator Name Role Phone Hortencia Leal PA-C Primary Care Provid er Reason for Visit * Reason Onset Date Comments Test Results Lab 01/24/2022 Encounter Details Date Type Department Care Team Description 01/24/2022 Telephone Hematology/Oncology Treatment, [place] 200 [place] [address] Nik Melo MD 200 [place] [address] Test Results Lab Allergies Active Allergy Reactions Severity Noted Date [...] times a day. As needed 0 Active Mchenry-3 Fatty Acids (FISH OIL) 1000 MG Capsule [...] * Telephone Encounter - TANI Johnson - 01/24/2022 10:15 AM EDT Moved all patients appts a week later. PET/CT @ [facility] rescheduled for 02/06/22 @ 1:45pm. * Telephone Encounter - Venita Byers RN - 01/24/2022 9:[address] Melo reviewed patients lab results. Plt 93. Per Dr Melo, treatment to be delayed x1 week. Patient is seeing Emperatriz Silverman today. Scheduling: please cancel treatment appt tomorrow and reschedule patient for treatment next week onT or Sunday, labs (CBCd, CMP, TSH/T4) day prior. Appts for scan/ follow up will also need to be moved back x1 week. Thanks! documented in this encounter Plan of Treatment Upcoming Encounters Date Type Specialty Care Team Description 01/31/2022 Laboratory Laboratory [facility] [place] [address] [place] [address] 02/01/2022 Hem/Onc Treatment Hematology Oncology [place], Chair 6 Hem Onc [place] [address] [place] [address] 02/06/2022 Imaging Radiology 02/15/2022 Office Visit Hematology Oncology Emperatriz Blackman CRNP [address] [place] [address] 03/29/2022 Office Visit Urology Cm Rhodes MD 27 [address] [place] [address] Health Maintenance Due Date Last Done Comments [...] of this encounter Implants Implanted Type Area Feed Research Technician Device Identifier Shelf Expiration Date Model / Serial / Lot Cath Power Port 6fr Clearvue - [id number] Implanted:Qty : 1 on 08/10/2021 by Alexander Rodriguez MD at [place] [facility] Left: Subclavian CR BARD : PERIPHERAL VASCULAR 08/21/2021 [id number] / / documented as of this encounter Advance Directives Documents on File Type Date Recorded Patient Machine Stone Polisher Apprentice Expl 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 Care Teams Drosophere Operator Relationship Specialty Start Date End Date Hortencia Leal PA-C [address] [facility], [place] [address] PCP - General Physician Mechanical Service Representative 02/08/18 documented as of this encounter
--- OUTSIDE RECORDS SUMMARY | 2023-06-27 07:51 | External Medical Summary | Summary of Care ---
Author Name Unknown Organization [place] [address] Care Team Providers Care Photoengraving Apprentice Name Role Phone Hortencia Leal PA-C Primary Care Provid er Reason for Visit * Reason Onset Date Comments Test Results Lab 01/24/2022 Encounter Details Date Type Department Care Team Description 01/24/2022 Telephone Hematology/Oncology Treatment, [place] 200 [place] [address] Nik Melo MD 200 [facility] [place] [address] Test Results Lab Allergies Active Allergy Reactions Severity Noted Date Comments Amlodipine 11/02/2020 dizziness Codeine Sulfate Other (Please comment) 10/26/19 11 hyperactivity Hydrochlorothiazide 11/02/2020 hypercalcemia documented as of this encounter (statuses as of 01/25/2022) Medications Medication Sig Dispensed Refills Start Date [...] times a day. 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 Called central scheduling and they had nothing available. Patient is going for PET/CT @ [facility] on 01/25/22 @ 1:45pm. Patient aware and given all prep instructions. * Telephone Encounter - TANI Johnson - [...] Description 01/25/2022 Imaging Radiology 01/31/2022 Laboratory [facility] [place], Lab Scen[place] [address] [place] [address] 02/01/2022 Hem/Onc Treatment Hematology Oncology [place], Chair 6 Hem Onc [facility] 200 [facility] [place] [facility] [place] [address] 02/08/2022 Office Visit Hematology Oncology Nik Melo MD 200 [place] [address] 03/29/2022 Office Visit Urology Cm Rhodes MD [address] [address] Health Maintenance Due Date Last [...] this encounter Implants Implanted Type Area Home Insurance Agent Device Identifier Shelf Expiration Date Model / Serial / Lot Cath Power Port 6fr Clearvue - [id number] Implanted:Qty : 1 on 08/10/2021 by Alexander Rodriguez MD at [place] [facility] [place] [facility] Left: Subclavian CR BARD : PERIPHERAL VASCULAR 08/21/2021 [id number] / / documented as of this encounter Advance Directives Documents on File Type Date Recorded Patient Wall Taper Expl 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 Care Teams Photoengraving Apprentice Relationship Specialty Start Date End Date Hortencia Leal PA-C [address] [place] [address] PCP - General Physician Supervisor Safety Deposit 02/08/18 documented as of this encounter
--- OUTSIDE RECORDS SUMMARY | 2023-06-27 07:51 | External Medical Summary | Summary of Care ---
Author Name Unknown Organization [place] [address] Care Team Providers Care Stator Tester Name Role Phone Hortencia Leal PA-C Primary Care Provid er Reason for Visit * Reason Onset Date Comments Test Results Lab 01/24/2022 Encounter Details Date Type Department Care Team Description 01/24/2022 Telephone Hematology/Oncology Treatment, [place] 200 [facility] [address] Nik Melo MD 200 [place] [address] Test Results Lab Allergies Active Allergy Reactions [...] times a day. As needed 0 Active Townsend-3 Fatty Acids (FISH OIL) 1000 MG Capsule [...] Specialty Care Team Description 01/31/2022 Laboratory Laboratory [place], Lab Scen[address] [place] [address] 02/01/2022 Hem/Onc Treatment Hematology Oncology [place], Chair 6 Hem Onc [place] [address] [place] [address] 02/15/2022 Office Visit Hematology Oncology Hiral LinaLYLE Silverman [address] [place] [address] 03/29/2022 Office Visit Urology Cm Rhodes MD 27 [place] [address] [place] [address] Health Maintenance Due Date [...] of this encounter Implants Implanted Type Area Flat Bed Operator Device Identifier Shelf Expiration Date Model / Serial / Lot Cath Power Port 6fr Clearvue - [id number] Implanted:Qty : 1 on 08/10/2021 by Alexander Rodriguez MD [place] [facility] Left: Subclavian CR BARD : PERIPHERAL VASCULAR 08/21/2021 [id number] / / documented as of this encounter Advance Directives Documents on File Type Date Recorded Patient Supervisor Hot Strip Mill Expl 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 Care Teams Stator Tester Relationship Specialty Start Date End Date Hortencia Leal PA-C [facility] [facility] [address] PCP - General Physician Satin Finisher 02/08/18 documented as of this encounter
--- OUTSIDE RECORDS SUMMARY | 2023-06-27 07:51 | External Medical Summary ---
Author Name Unknown Address Unknown Organization [id number]:[facility]ORY [facility] [address] [place] [address] Laboratory Report Ordering Provider Test Date Status SHAY CH 02/07/2022 09:43:24 Final Observation Date Value Abnormality Reference (Units ) Status TSH 02/07/2022 09:43:24 0.98 0.27-4.20 (uIU/mL) Final Performing Location [facility] [address] [place] [address]
--- OUTSIDE RECORDS SUMMARY | 2023-06-27 07:51 | External Medical Summary | Summary of Care ---
Author Name Unknown Organization [place] [address] Care Team Providers Care Stna Name Role Phone Hortencia Leal PA-C Primary Care Provid er Reason for Visit * Reason Onset Date Comments Test Results Lab 01/24/2022 Encounter Details Date Type Department Care Team Description 01/24/2022 Telephone Hematology/Oncology Treatment, [place] [address] [place] [address] Nik Melo MD 200 [facility] [place] [address] Test Results Lab Allergies Active Allergy Reactions [...] times a day. As needed 0 Active Eads-3 Fatty Acids (FISH OIL) 1000 MG Capsule [...] Laboratory Laboratory [place], Lab Scenery [address] [place] [address] 02/01/2022 Hem/Onc Treatment Hematology Oncology [place], Chair 6 Hem Onc [facility] 200 [place] [address] 02/08/2022 Office Visit Hematology Oncology Nik Melo MD 200 [place] [address] 03/29/2022 Office Visit Urology Cm Rhodes MD [address] [address] Health Maintenance Due Date Last [...] of this encounter Implants Implanted Type Area Stud Dairy Cattle Farmer Device Identifier Shelf Expiration Date Model / Serial / Lot Cath Power Port 6fr Clearvue - [id number] Implanted:Qty : 1 on 08/10/2021 by Alexander Rodriguez MD at [place] [facility] [place] Left: Subclavian CR BARD : PERIPHERAL VASCULAR 08/21/2021 [id number] / / documented as of this encounter Advance Directives Documents on File Type Date Recorded Patient Folding Machine Setter Expl 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 Care Teams Stna Relationship Specialty Start Date End Date Hortencia Leal PA-C [address] [place] [address] PCP - General Physician Internal Auditor 02/08/18 documented as of this encounter
--- OUTSIDE RECORDS SUMMARY | 2023-06-27 07:51 | External Medical Summary ---
Author Name Unknown Address Unknown Organization K09:[facility] [place] [address] Laboratory Report Ordering Provider Test Date Status SHAY CH 01/31/2022 09:25:24 Final Observation Date Value Abnormality Reference (Units ) Status SYNC LEUKOCYTES IN BLOOD BY AUTOMATED COUNT 01/31/2022 09:25:24 2.72 Below low normal 4.00-10.80 (K/uL) Final Segs 01/31/2022 09:25:24 32.4 Below low normal 40.0-75.0 (%) Final Lymphs % 01/31/2022 09:25:24 39.3 18.0-42.0 (%) Final Monos 01/31/2022 09:25:24 22.4 Above high normal 1.0-11.0 (%) Final Eosinophils 01/31/2022 09:25:24 5.5 0.0-6.0 (%) Final Basos 01/31/2022 09:25:24 0.4 0.0-2.0 (%) Final Absolute Segs 01/31/2022 09:25:24 0.88 Below low normal 1.80-7.70 (K/uL) Final Lymphs, absolute 01/31/2022 09:25:24 1.07 1.00-4.80 (K/ul) Final Monos, Abs 01/31/2022 09:25:24 0.61 0.00-1.10 (K/uL) Final Eos, Abs 01/31/2022 09:25:24 0.15 0.00-0.70 (K/uL) Final Basos, Abs 01/31/2022 09:25:24 0.01 0.00-0.20 (K/uL) Final Performing Location [facility] [place] [address]
--- OUTSIDE RECORDS SUMMARY | 2023-06-27 07:51 | External Medical Summary | Summary of Care ---
Author Name Unknown Organization [place] [address] Care Team Providers Care Manager Cleaning Name Role Phone Hortencia Leal PA-C Primary Care Provid er Reason for Visit * Reason Comments Outpatient Testing Encounter Details Date Type Department Care Team Description 01/24/2022 Laboratory Laboratory [facility] [place] [address] [place] [address] [facility] Lab [facility] [address] [facility] [place] [address] 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 [...] Oral Capsule Take by mouth. 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 Reported on 08/10/2021 traMADol HCl 50 MG Oral Tablet (Ultram) Take 1 Tab by mouth every 6 hours as needed for Pain, Severe. 10 Tab 0 08/10/2021 Active Additional Information Patient not taking. 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 60 Tablet 2 10/03/2021 Active Polyethylene Glycol 3350 17 GM/SCOOP Oral Powder (MiraLax) Take 17 g by mouth daily. 0 Active Ondansetron HCl 8 MG Oral TabletIndications:M alignant 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) [...] Encounters Date Type Specialty Care Team Description 01/24/2022 Office Visit Hematology Oncology Emperatriz Blackman CRNP 200 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) 01/24/2022 8:59 AM EDT TSH WITH FREE T4 IF INDICATED Lab STAT 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) Encounter for long-term (current) use of medications 01/24/2022 8:59 AM EDT Health Maintenance Due Date Last [...] SCREEN EVERY 3 YRS-AGE 45 AND ABOVE 01/10/2025 01/10/2022, 12/27/2021, 12/19/2021, Additional history exists Influenza Vaccine (FLU shot) Completed 06/2021, 08/21/2018, 07/14/2017, Additional history exists GARDASIL-HPV IMMUNIZATION SERIES Aged Out No longer eligible based on patient's age to complete this topic MENINGOCOCCAL (MENACTRA/MENVEO) Aged Out No longer eligible based on patient's age to complete this topic documented as of this encounter Implants Implanted Type Area Cleaner Furniture Device Identifier Shelf Expiration Date Model / Serial / Lot Cath Power Port 6fr Clearvue - [id number] Implanted:Qty : 1 on 08/10/2021 by Alexander Rodriguez MD at [place] [facility] [place] Left: Subclavian CR BARD : PERIPHERAL VASCULAR 08/21/2021 [id number] / / documented as of this encounter Procedures Procedure Name Priority Date/Time Associated Diagnosis Comments DIFFERENTIAL, AUTOMATED STAT 01/24/2022 8:59 AM EDT 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) CBC WITH WBC DIFFERENTIAL STAT 01/24/2022 8:59 AM EDT 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) CBC STAT 01/24/2022 8:59 AM EDT 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) DIFFERENTIAL, TECHNOLOGIST REVIEW Routine 01/24/2022 8:59 AM EDT 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) documented in this encounter Results * (ABNORMAL) DIFFERENTIAL, TECHNOLOGIST REVIEW (01/24/2022 8:59 AM EDT) Pathologist [facility] nRs LABORATORY STAT E [facility] 56-02 Anisocytosis Slight(A) None Seen LABORATORY STAT E [facility] 56-02 Macrocytosis Present(A) None Seen LABORATORY STAT E [facility] 56-02 Specimen Blood - Venous blood specime n (specimen) Performing Organization Address City/[facility]/ZIP Co de Phone Number [facility] 56-02 [address] [place] [address] * (ABNORMAL) DIFFERENTIAL, AUTOMATED (01/24/2022 8:59 AM EDT) [facility] WBC 3.77(L) 4.00 - 10.80 K/uL LABORATORY [facility] 56-02 Neutrophils % 43.2 40.0 - 75.0 % LABORATORY ST [facility] 56-02 Lymphocytes % 36.9 18.0 - 42.0 % LABORATORY [facility] 56-02 Monocytes % 16.2(H) 1.0 - 11.0 % LABORATORY STAT E [facility] 56-02 Eosinophils % 3.2 0.0 - 6.0 % LABORATORY [facility] TE [facility] 56-02 Basophils % 0.5 0.0 - 2.0 % LABORATORY STAT E [facility] 56-02 Absolute Neutrophils 1.63(L) 1.80 - 7.70 K/uL LABORATORY [facility] 56-02 Absolute Lymphocytes 1.39 1.00 - 4.80 K/ul LABORATORY [facility] 56-02 Absolute Monocytes 0.61 0.00 - 1.10 K/uL LABORATORY [facility] 56-02 Absolute Eosinophils 0.12 0.00 - 0.70 K/uL LABORATORY [facility] 56-02 Absolute Basophils 0.02 0.00 - 0.20 K/uL LABORATORY [place] 56-02 Specimen Blood - Venous blood specime n (specimen) Performing Organization Address City/[facility]/ZIP Co de Phone Number [facility] 56-02 [address] [place] [address] * (ABNORMAL) CBC (01/24/2022 8:59 AM EDT) WBC 3.77(L) 4.00 - 10.80 K/uL [place] [address] RBC 3.13(L) 4.50 - 5.25 M/uL LABORATORY [address] HGB 10.6(L) 14.0 - 16.8 g/dL [facility] HCT 32.2(L) 40.0 - 48.4 % LABORATORY [facility] MCV 102.9(H) 82.0 - 99.5 fL [address] MCH 33.9 27.0 - 34.0 pg LABORATORY [facility] MCHC 32.9 32.0 - 36.0 g/dL [address] RDW 18.0(H) 11.5 - 15.5 % LABORATORY [place] [address] PLT 93(L) 140 - 400 K/uL LABORATORY [place] [address] MPV 9.7 6.6 - 11.1 fL LABORATORY [facility] Specimen Blood - Venous blood specime n (specimen) Performing Organization Address City/State/[facility] Co de Phone Number [place] [address] [place] [address] documented in this encounter Visit Diagnoses Diagnosis 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) Malignant neoplasm of other specified sites of stomach Encounter for long-term (current) use of medications Encounter for long-term (current) use of other medications documented in this encounter Advance Directives Documents on File Type Date Recorded Patient Drop Hammer Operator Helper Expl anation Advanced Directive Advanced Directive Advanced [...] were consensually agreed upon. Care Teams Manager Cleaning Relationship Specialty Start Date End Date Hortencia Leal PA-C [address] [facility] [address] PCP - General Physician Microwave Radio Technician 02/08/18 documented as of this encounter
--- OUTSIDE RECORDS SUMMARY | 2023-06-27 07:51 | External Medical Summary ---
Author Name Unknown Address Unknown Organization [id number]:[facility] [place] [address] Laboratory Report Ordering Provider Test Date Status SHAY CH 01/24/2022 08:59:18 Final Observation Date Value Abnormality Reference (Units ) Status SYNC LEUKOCYTES IN BLOOD BY AUTOMATED COUNT 01/24/2022 08:59:18 3.77 Below low normal 4.00-10.80 (K/uL) Final Segs 01/24/2022 08:59:18 43.2 40.0-75.0 (%) Final Lymphs % 01/24/2022 08:59:18 36.9 18.0-42.0 (%) Final Monos 01/24/2022 08:59:18 16.2 Above high normal 1.0-11.0 (%) Final Eosinophils 01/24/2022 08:59:18 3.2 0.0-6.0 (%) Final Basos 01/24/2022 08:59:18 0.5 0.0-2.0 (%) Final Absolute Segs 01/24/2022 08:59:18 1.63 Below low normal 1.80-7.70 (K/uL) Final Lymphs, absolute 01/24/2022 08:59:18 1.39 1.00-4.80 (K/ul) Final Monos, Abs 01/24/2022 08:59:18 0.61 0.00-1.10 (K/uL) Final Eos, Abs 01/24/2022 08:59:18 0.12 0.00-0.70 (K/uL) Final Basos, Abs 01/24/2022 08:59:18 0.02 0.00-0.20 (K/uL) Final Performing Location [facility] [place] [address]
--- OUTSIDE RECORDS SUMMARY | 2023-06-27 07:51 | External Medical Summary | Summary of Care ---
Author Name Unknown Organization [place] [address] Care Team Providers Care Service Plumber Name Role Phone Hortencia Leal PA-C Primary Care Provid er Reason for Visit * Reason Onset Date Comments Appointment 01/31/2022 Encounter Details Date Type Department Care Team Description 01/31/2022 Telephone Hematology/Oncology Treatment, [address] [place] [address] Nik Melo MD 200 [place] [address] Appointment Allergies Active Allergy Reactions Severity Noted [...] times a day. As needed 0 Active [place]-3 Fatty Acids (FISH OIL) 1000 MG Capsule [...] 1. Lab appointment in the morning at [facility] for "CBCD CMP TSH/T4" on 02/07 2. LEAVE appt with Dr Melo on 02/08. 3. Move treatment appointment for tomorrow to after appointment with Dr Melo on 02/08. Thank you! documented in this encounter Plan of Treatment Upcoming Encounters Date Type Specialty Care Team Description 02/01/2022 Hem/Onc Treatment Hematology Oncology Maddy, Chair [address] [address] 02/08/2022 Office Visit Hematology Oncology Nik Melo MD 200 [place] [address] 03/29/2022 Office Visit Urology Cm Rhodes MD [address] [address] Health Maintenance Due Date Last [...] of this encounter Implants Implanted Type Area Engineering Operations Leader Device Identifier Shelf Expiration Date Model / Serial / Lot Cath Power Port 6fr Clearvue - [id number] Implanted:Qty : 1 on 08/10/2021 [place] Rodriguez [place] [facility] [place] Subclavian CR BARD : PERIPHERAL VASCULAR 08/21/2021 [id number] / / documented as of this encounter Advance Directives Documents on File Type Date Recorded Patient Space Control Supervisor Expl anation Advanced Directive Advanced Directive [...] were consensually agreed upon. Care Teams Service Plumber Relationship Specialty Start Date End Date Hortencia Leal PA-C [address] [place] [address] PCP - General Physician Sheet Ironworker 02/08/18 documented as of this encounter
--- OUTSIDE RECORDS SUMMARY | 2023-06-27 07:51 | External Medical Summary ---
Author Name Unknown Address Unknown Organization [id number]:[facility] [place] [address] Laboratory Report Ordering Provider Test Date Status DIMASHAY 01/31/2022 09:25:24 Final Observation Date Value Abnormality Reference (Units ) Status Nucleated erythrocytes/100 leukocytes [Ratio] in Blood by Automated count 01/31/2022 09:25:24 Final Anisocytosis [Presence] in Blood by Light microscopy 01/31/2022 09:25:24 Slight Abnormal None Seen Final Macrocytes [Presence] in Blood by Light microscopy 01/31/2022 09:25:24 Present Abnormal None Seen Final Performing Location [facility] [place] [address]
--- OUTSIDE RECORDS SUMMARY | 2023-06-27 07:52 | External Medical Summary ---
Author Name Unknown Address Unknown Organization [id number]:[facility] [place] [address] Laboratory Report Ordering Provider Test Date Status SHAY CH 01/24/2022 08:59:18 Final Observation Date Value Abnormality Reference (Units ) Status WBC, Total 01/24/2022 08:59:18 3.77 Below low normal 4. 00-10.80 (K/uL) Final RBC 01/24/2022 08:59:18 3.13 Below low normal 4.5 0-5.25 (M/uL) Final Hemoglobin 01/24/2022 08:59:18 10.6 Below low normal 14 .0-16.8 (g/dL) Final HCT 01/24/2022 08:59:18 32.2 Below low normal 40. 0-48.4 (%) Final MCV 01/24/2022 08:59:18 102.9 Above high normal 82 .0-99.5 (fL) Final MCH 01/24/2022 08:59:18 33.9 27.0-34.0 (pg) Final MCHC 01/24/2022 08:59:18 32.9 32.0-36.0 (g/dL) Final RDW 01/24/2022 08:59:18 18.0 Above high normal 11 .5-15.5 (%) Final Platelets 01/24/2022 08:59:18 93 Below low normal 140 -400 (K/uL) Final MPV 01/24/2022 08:59:18 9.7 6.6-11.1 ( fL) Final Performing Location [facility] [place] [address]
--- OUTSIDE RECORDS SUMMARY | 2023-06-27 07:52 | External Medical Summary ---
Author Name Unknown Address Unknown Organization [id number]:LAB[facility]ATORY [facility] [place] - [address] [place] [address] Laboratory Report Ordering Provider Test Date Status ABBIE MACIAS 01/10/2022 11:01:04 Final Observation Date Value Abnormality Reference (Units ) Status MYCODE SPECIMEN-SST 01/10/2022 11:01:04 Freezing of extracted DNA, whole blood and/or serum. Final Performing Location [facility] - [address] [place] [address]
--- OUTSIDE RECORDS SUMMARY | 2023-06-27 07:52 | External Medical Summary | Summary of Care ---
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) Procedures SD LEUCOVORIN CALCIUM INJECTION SD PALONOSETRON HCL SD FLUOROURACIL INJECTION SD OXALIPLATIN SD INJECTION, NIVOLUMAB Nik Melo MD 200 [facility] [place] [address] Anc Hem/Onc [facility] [address] [place] [address] Referral ID Status Reason Start Date Expiration Date V isits Requested Visits Authorized [id number] Authorized 08/19/2021 08/19/2022 99 99 Encounter Details Date Type Department Care Team Description 01/13/2022 Immunization/I njection Hematology/Oncology Treatment, [place] [address] [place] [address] Nurse, Med [address] [place] [address] 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 Pump disconnected, VAD flushed per protocol and zhou needle removed. Patient tolerated treatment well and was discharged in stable condition. documented in this encounter Plan of Treatment Upcoming Encounters Date Type Specialty Care Team Description 01/24/2022 Laboratory Laboratory [facility] Lab Scenery 200 [place] [address] 01/24/2022 Office Visit Hematology Oncology Emperatriz Blackman CRNP 200 [facility] [place] [address] 01/25/2022 Hem/Onc Treatment Hematology Oncology Maddy, Chair 8 Hem Onc Scenery 200 [facility] [place] [address] 02/01/2022 Imaging Radiology 02/08/2022 Office Visit Hematology Oncology Nik Melo MD 200 [place] [address] 03/29/2022 Office Visit Urology Cm Rhodes MD [address] [phone] Health Maintenance Due Date Last Done Comments [...] of this encounter Implants Implanted Type Area Open Pit Quarry Supervisor Device Identifier Shelf Expiration Date Model / Serial / Lot Cath Power Port 6fr Clearvue - [id number] Implanted:Qty : 1 on 08/10/2021 by Alexander Rodriguez MD at [place] [facility] [place] Left: Subclavian CR BARD : PERIPHERAL VASCULAR 08/21/2021 [id number] / / documented as of this encounter [...] Lock, PRN Other, IV Flush, Starting on Sun01/13/22 at 1310, Until 01/14/22 at 1309, For 24 hours, Do not flush if lock, PICC, or central line not in place; IV infusing or unable to flush. Given 01/13/2022 1:22 PM EDT 500 Units sodium chloride 0.9 % flush/inj 10 mL 10 mL, IV Push, PRN Other, IV Flush, Starting on Sun01/13/22 at 1310, Until 01/14/22 at 1309, For 24 hours, Do not flush if lock, PICC, or central line not in place; IV infusing or unable to flush. Given 01/13/2022 1:22 PM EDT 10 mL documented in this encounter Advance Directives Documents on File Type Date Recorded Patient Scarf Gluer Expl 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 Care Teams Mat Man Relationship Specialty Start Date End Date Hortencia Leal PA-C [address] [facility] [address] PCP - General Physician Wharfmaster 02/08/18 documented as of this encounter
--- OUTSIDE RECORDS SUMMARY | 2023-06-27 07:52 | External Medical Summary ---
Author Name Unknown Address Unknown Organization K01:LABORATORY [facility] - [address] [place] [address] Laboratory Report Ordering Provider Test Date Status ABBIE MACIAS 01/10/2022 11:01:04 Final Observation Date Value Abnormality Reference (Units ) Status MYCODE SPECIMEN-SST 01/10/2022 11:01:04 Freezing of extracted DNA, whole blood and/or serum. Final Performing Location LABORATORY [facility] - [address] [place] [address]
--- OUTSIDE RECORDS SUMMARY | 2023-06-27 07:52 | External Medical Summary ---
Author Name Unknown Address Unknown Organization K09:[facility] [place] [address] Laboratory Report Ordering Provider Test Date Status SHAY CH 01/10/2022 11:01:04 Final Observation Date Value Abnormality Reference (Units ) Status WBC, Total 01/10/2022 11:01:04 3.74 Below low normal 4. 00-10.80 (K/uL) Final RBC 01/10/2022 11:01:04 3.04 Below low normal 4.5 0-5.25 (M/uL) Final Hemoglobin 01/10/2022 11:01:04 10.2 Below low normal 14 .0-16.8 (g/dL) Final HCT 01/10/2022 11:01:04 31.7 Below low normal 40. 0-48.4 (%) Final MCV 01/10/2022 11:01:04 104.3 Above high normal 82 .0-99.5 (fL) Final MCH 01/10/2022 11:01:04 33.6 27.0-34.0 (pg) Final MCHC 01/10/2022 11:01:04 32.2 32.0-36.0 (g/dL) Final RDW 01/10/2022 11:01:04 18.6 Above high normal 11 .5-15.5 (%) Final Platelets 01/10/2022 11:01:04 100 Below low normal 140 -400 (K/uL) Final MPV 01/10/2022 11:01:04 9.0 6.6-11.1 ( fL) Final Performing Location [facility] [address]
--- OUTSIDE RECORDS SUMMARY | 2023-06-27 07:52 | External Medical Summary ---
Author Name Unknown Address Unknown Organization K09:[facility] [place] [address] Laboratory Report Ordering Provider Test Date Status SHAY CH 01/24/2022 08:59:18 Final Observation Date Value Abnormality Reference (Units ) Status Nucleated erythrocytes/100 leukocytes [Ratio] in Blood by Automated count 01/24/2022 08:59:18 Final Anisocytosis [Presence] in Blood by Light microscopy 01/24/2022 08:59:18 Slight Abnormal None Seen Final Macrocytes [Presence] in Blood by Light microscopy 01/24/2022 08:59:18 Present Abnormal None Seen Final Performing Location [facility] [place] [address]
--- OUTSIDE RECORDS SUMMARY | 2023-06-27 07:52 | External Medical Summary | Summary of Care ---
Author Name Unknown Organization [place] [address] Care Team Providers Care Logistician Name Role Phone Hortencia Leal PA-C Primary Care Provid er Encounter Details Date Type Department Care Team Description 01/22/2022 Orders Only Hematology/Oncology [facility] 200 [place] [address] Nik Melo MD 200 [facility] [place] [address] Allergies Active Allergy Reactions Severity Noted Date Comments Amlodipine 11/02/2020 dizziness Codeine Sulfate Other (Please comment) 10/26/19 11 hyperactivity Hydrochlorothiazide 11/02/2020 hypercalcemia documented as of this encounter (statuses as of 01/22/2022) Medications Medication Sig Dispensed Refills Start Date [...] times a day. 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 documented as of this encounter (statuses as of 01/22/2022) Immunizations Name Administration Dates Next Due COVID-19 [...] Team Description 01/24/2022 Laboratory Laboratory Maddy Lab [facility] 200 [facility] [place] [address] 01/24/2022 Office Visit Hematology Oncology Emperatriz Blackman CRNP 200 [facility] [address] 01/25/2022 Hem/Onc Treatment Hematology Oncology [place], Chair 8 Hem Onc [facility] 200 [facility] [place] [address] 02/01/2022 Imaging Radiology 02/08/2022 Office Visit Hematology Oncology Nik Melo MD 200 [facility] [place] [address] 03/29/2022 Office Visit Urology Cm Rhodes MD [address] [place] [address] [place] [address] Health Maintenance Due Date [...] of this encounter Implants Implanted Type Area Care Manager Cna Device Identifier Shelf Expiration Date Model / Serial / Lot Cath Power Port 6fr Clearvue - [id number] Implanted:Qty : 1 on 08/10/2021 by Alexander Rodriguez MD [place] [facility] [place]: Subclavian CR BARD : PERIPHERAL VASCULAR 08/21/2021 [id number] / / documented as of this encounter Advance Directives Documents on File Type Date Recorded Patient Dental Laboratory Technology Teacher Expl 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 Care Teams Logistician Relationship Specialty Start Date End Date Hortencia Leal PA-C [address] [place] [address] PCP - General Physician Conference Center Manager 02/08/18 documented as of this encounter
--- OUTSIDE RECORDS SUMMARY | 2023-06-27 07:52 | External Medical Summary ---
Author Name Unknown Address Unknown Organization K01:LABORATORY [facility] [place] [place] [address] [place] [address] Laboratory Report Ordering Provider Test Date Status SHAY CH 01/24/2022 08:59:18 Final Observation Date Value Abnormality Reference (Units ) Status TSH 01/24/2022 08:59:18 0.88 0.27-4.20 (uIU/mL) Final Performing Location LABORATORY [facility] - [address] [place] [address]
--- OUTSIDE RECORDS SUMMARY | 2023-06-27 07:52 | External Medical Summary | Summary of Care ---
Author Name Unknown Organization [facility] Address [place] [address] Care Team Providers Care Logistics Team Lead Name Role Phone Hortencia Leal PA-C Primary Care Provid er Reason for Visit * Reason Onset Date Comments Appointment 2021 Encounter Details Date Type Department Care Team Description 2021 Telephone Hematology/Oncology [facility] [address] [place] [address] Emperatriz Blackman CRNP 200 [facility] [place] [address] Appointment Allergies Active Allergy Reactions Severity Noted Date Comments Amlodipine 11/02/2020 dizziness Codeine Sulfate Other (Please comment) 10/26/19 11 hyperactivity Hydrochlorothiazide 11/02/2020 hypercalcemia documented as of this encounter (statuses as of 2021) Medications Medication Sig Dispensed Refills Start Date [...] times a day. 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 Patient given prep instructions. documented in this encounter Plan of Treatment Upcoming Encounters Date Type Specialty Care Team Description 12/30/2021 Immunization/Injection Hematology Oncolog y Nurse, Med [address] [place] [address] 01/04/2022 Office Visit Urology Cm Rhodes MD [address] [place] [address] [place] [address] 01/10/2022 Laboratory Laboratory Maddy, Lab Scenery [address] [place] [address] 01/11/2022 Hem/Onc Treatment Hematology Oncology [place], Chair 6 Hem Onc Scenery [address] [place] [address] 02/01/2022 Imaging Radiology 02/08/2022 Office Visit Hematology Oncology Nik Melo MD [address] [place] [address] Health Maintenance Due Date Last Done Comments [...] SCREEN EVERY 3 YRS-AGE 45 AND ABOVE 12/27/2024 12/27/2021, 12/19/2021, 11/29/2021, Additional history exists Influenza Vaccine (FLU shot) Completed 06/2021, 08/21/2018, 07/14/2017, Additional history exists GARDASIL-HPV IMMUNIZATION SERIES Aged Out No longer eligible based on patient's age to complete this topic MENINGOCOCCAL (MENACTRA/MENVEO) Aged Out No longer eligible based on patient's age to complete this topic documented as of this encounter Implants Implanted Type Area Radar Signal Processing Engineer Device Identifier Shelf Expiration Date Model / Serial / Lot Cath Power Port 6fr Clearvue - [id number] Implanted:Qty : 1 on 08/10/2021 by Alexander Rodriguez MD at OR [facility] [place] Left: Subclavian CR BARD : PERIPHERAL VASCULAR 08/21/2021 [id number] / / documented as of this encounter Advance Directives Documents on File Type Date Recorded Patient Accounting Lecturer Expl 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 Care Teams Logistics Team Lead Relationship Specialty Start Date End Date Hortencia Leal PA-C [facility] [facility] [address] PCP - General Physician Marketing Services Manager 02/08/18 documented as of this encounter
--- OUTSIDE RECORDS SUMMARY | 2023-06-27 07:52 | External Medical Summary | Summary of Care ---
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) Procedures TX LEUCOVORIN CALCIUM INJECTION TX PALONOSETRON HCL TX FLUOROURACIL INJECTION TX OXALIPLATIN TX INJECTION, NIVOLUMAB Nik Melo MD 200 [place] [address] Anc Hem/Onc [address] [place] [address] Referral ID Status Reason Start Date Expiration Date V isits Requested Visits Authorized [id number] Authorized 08/19/2021 08/19/2022 99 99 Encounter Details Date Type Department Care Team Description 2021 Hem/Onc Treatment Hematology/Oncology Treatment, [address] [place] [address] Maddy, Chair 4 Hem Onc [address] [place] [address] 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 documented as of this encounter (statuses as of 01/10/2022) Immunizations Name Administration Dates Next Due COVID-19 [...] Sign Reading Time Taken Comments Blood Pressure 150/68 2021 9:35 AM EST Pulse 66 2021 9:35 AM EST Temperature 36.6 C (97.8 F) 2021 9:35 AM ES T Respiratory Rate 18 2021 9:35 AM EST Oxygen Saturation - - Inhaled Oxygen Concentration - - Weight 76.3 kg (168 lb 1.8 oz) 2021 9:35 A M EST Height - - Body Mass Index 28.86 08/10/2021 8:15 AM EDT documented in this encounter Nursing Notes * Eboni Stevens RN - 2021 1:45 PM EST Functional status at today's visit: [...] symptoms or adverse side effects during treatment. Opdivo, Oxali and leucovorin infusions are complete, pt tolerated well. Pt's port checked for bloodreturn, +blood return. Administered 5FU push, tolerated well. Pt connected to 5FU pump, pt left with 5FU infusing. Goals: pt to remain free from injury Possible barriers to meeting goals: ambulation with IV pole/tubing Stability of the patient: Moderately stable - low risk of patient condition declining or worsening Summary regarding today's goals: Met: pt remained free from injury Pt discharged in stable condition. * Eboni Stevens RN - 2021 10:36 AM EST Ch 2. Pt arrived today for Opdivo and FOLFOX infusions. Pt had labs performed yesterday, results WNL. Pt met with provider today, prior to infusions. Pt reports he is feeling better. He reports he still does not have much of an appetite, but is drinking 2 protein drinks/day. Pt reports his bowels go back and forth with constipation and loose stools. He states he has no new concerns today. Chemo agents Opdivo and FOLFOX Appetite fair Nausea/Vomiting denies Diarrhea intermittent Constipation intermittent Mucositis denies Fatigue pt takes naps Bleeding denies Infection denies Rash denies Numbness tingling mild Pain denies Radiation no ABN Labs WNL Alt in Tx: no Return in 2 day Safety and Risk for Injury Patient will remain free from injury. Ensure appropriate safety devices are available. Provide and maintain safe environment. 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)*; Encounter for antineoplastic chemotherapy; 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) 02/01/2022 Imaging Radiology 02/08/2022 Office Visit Hematology Oncology Nik Melo MD 200 [place] [address] 03/29/2022 Office Visit Urology Cm Rhodes MD [address] [place] [address] Health Maintenance Due Date Last Done [...] of this encounter Implants Implanted Type Area Chop Saw Operator Device Identifier Shelf Expiration Date Model / Serial / Lot Cath Power Port 6fr Clearvue - [id number] Implanted:Qty : 1 on 08/10/2021 by Alexander Rodriguez MD at [facility] Left: Subclavian CR BARD : PERIPHERAL VASCULAR 08/21/2021 [id number] / / documented as of this encounter [...] Intravenous, at 50 mL/hr, CONTINUOUS, Starting on Sun12/28/21 at 1015, Until Sun12/28/21 at 1750 Start Infusion 2021 9:45 AM EST 500 mL 50 mL/hr Dexamethasone (Decadron) tab 12 mg 12 mg, Oral, ONCE, On Sun12/28/21 at 1000, For 1 dose Given 2021 9:50 AM EST 12 mg Fluorouracil (5-Fu) 4,650 mg for Home Infusion 4,650 mg (rounded from 4,656 mg = 2,400 mg/m2 1.94 m2 Treatment Plan BSA from Recorded weight), Intravenous, Administer over 46 Hours, Home Infusion Pharmacy to specify base solution and volume. Total Vqdl=9159 mg/m2 for 46 hours, ONCE, 1 dose, On Sun12/28/21 at 1315 Start Infusion 2021 1:08 PM EST 4,650 mg Fluorouracil (5-Fu) inj 775 mg 775 mg (rounded from 776 mg = 400 mg/m2 1.94 m2 Treatment Plan BSA from Recorded weight), IV Push, ONCE, 1 dose, On Sun12/28/21 at 1300 Given 2021 1:06 PM EST 775 mg leucovorin calcium 800 mg in D5W 250 mL INFUSION 800 mg (rounded from 776 mg = 400 mg/m2 1.94 m2 Treatment Plan BSA from Recorded weight), IV Piggyback, at 125 mL/hr Administer over 120 Minutes, ONCE, 1 dose, On Sun12/28/21 at 1100, Before 5-FU Start Infusion 2021 10:51 AM EST 800 mg 125 mL/hr Nivolumab (Opdivo) 240 mg in NSS 100 mL ivpb 240 mg, IV Piggyback, at 200 mL/hr Administer over 30 Minutes, DO NOT SHAKE Use a sterile, non-pyrogenic, low protein binding in-line filter (0.2 micrometer-1.2 micrometer) , ONCE, 1 dose, On Sun12/28/21 at 1030 Start Infusion 2021 10:12 AM EST 240 mg 200 mL/hr Oxaliplatin (Eloxatin) 150 mg in D5W 500 mL infusion 150 mg (rounded from 164.9 mg = 85 mg/m2 1.94 m2 Treatment Plan BSA from Recorded weight), IV Piggyback, at 250 mL/hr Administer over 120 Minutes, Flush with D5W only!, ONCE, 1 dose, On Sun12/28/21 at 1100 Start Infusion 2021 10:51 AM EST 150 mg 250 mL/hr palonosetron (Aloxi) inj SOLN 0.25 mg 0.25 mg, IV Push, ONCE, On Sun12/28/21 at 1000, For 1 dose, Restricted per S antiemetic guidelines Given 2021 9:50 AM EST 0.25 mg documented in this encounter Advance Directives Documents on File Type Date Recorded Patient Box Stacker Expl 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 Care Teams Tile Presser Relationship Specialty Start Date End Date Hortencia Leal PA-C [facility] [facility] [address] P[facility] - General Physician Rabble Furnace Tender 02/08/18 documented as of this encounter
--- OUTSIDE RECORDS SUMMARY | 2023-06-27 07:52 | External Medical Summary ---
Author Name Unknown Address Unknown Organization [id number]:[facility] [address] [place] [address] Laboratory Report Ordering Provider Test Date Status SAHY CH 01/10/2022 11:01:04 Final Observation Date Value Abnormality Reference (Units ) Status TSH 01/10/2022 11:01:04 0.81 0.27-4.20 (uIU/mL) Final Performing Location [facility] - [address] [place] [address]
--- OUTSIDE RECORDS SUMMARY | 2023-06-27 07:52 | External Medical Summary ---
Author Name Unknown Address Unknown Organization [id number]:[facility] [place] [address] Laboratory Report Ordering Provider Test Date Status SHAY CH 01/10/2022 11:01:04 Final Observation Date Value Abnormality Reference (Units ) Status BUN 01/10/2022 11:01:04 19 6-20 (mg/dL) Final Creatinine 01/10/2022 11:01:04 1.8 Above high normal 0.6-1.2 (mg/dL) Final Glomerular filtration rate/1.73 sq M.predicted [Volume Rate/Area] in Serum, Plasma or Blood by Creatinine-based formula (CKD-EPI) 01/10/2022 11:01:04 39 Below low normal >=60 (mL/min) Final Performing Location [facility] [place] [address]
--- OUTSIDE RECORDS SUMMARY | 2023-06-27 07:52 | External Medical Summary | Summary of Care ---
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) Procedures MS LEUCOVORIN CALCIUM INJECTION MS PALONOSETRON HCL MS FLUOROURACIL INJECTION MS OXALIPLATIN MS INJECTION, NIVOLUMAB Nik Melo MD 200 [facility] [place] [address] Anc Hem/Onc [facility] [address] [place] [address] Referral ID Status Reason Start Date Expiration Date V isits Requested Visits Authorized [id number] Authorized 08/19/2021 08/19/2022 99 99 Encounter Details Date Type Department Care Team Description 12/30/2021 Immunization/I njection Hematology/Oncology Treatment, [place] [address] [place] [address] Nurse, Med [address] [place] [address] 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 Pt denies any issues with infusion of pump, bag empty of contents. VAD flushed with 10 ml NSS and Heparin 5 ml (100 units/ml). Vasquez needle removed intact. Patient left IVC by ambulating. Unaccompanied. Voiced no complaints. Palak Lee RN 12/30/2021 11:38 AM documented in this encounter Plan of Treatment Upcoming Encounters Date Type Specialty Care Team Description 01/04/2022 Office Visit Urology Cm Rhodes MD 27 [facility] [address] [place], [place] [id number] 01/10/2022 Laboratory Laboratory [place], Lab Scenery 200 [place] [address] 01/11/2022 Hem/Onc Treatment Hematology Oncology [place], Chair 6 Hem Onc Sc[place]ery [address] [facility] [address] 02/01/2022 Imaging Radiology 02/08/2022 Office Visit Hematology Oncology Nik Melo MD 200 [place] [address] Health Maintenance Due Date Last Done Comments [...] of this encounter Implants Implanted Type Area Network Support Administrator Device Identifier Shelf Expiration Date Model / Serial / Lot Cath Power Port 6fr Clearvue - [id number] Implanted:Qty : 1 on 08/10/2021 by Alexander Rodriguez MD at OR [facility] Left: Subclavian CR BARD : PERIPHERAL VASCULAR 08/21/2021 [id number] / / documented as of this encounter [...] Lock, PRN Other, IV Flush, Starting on Sun12/30/21 at 1119, Until 12/31/21 at 1118, For 24 hours, Do not flush if lock, PICC, or central line not in place; IV infusing or unable to flush. Given 12/30/2021 11:21 AM EST 500 Units sodium chloride 0.9 % flush/inj 10 mL 10 mL, IV Push, PRN Other, IV Flush, Starting on Sun12/30/21 at 1119, Until 12/31/21 at 1118, For 24 hours, Do not flush if lock, PICC, or central line not in place; IV infusing or unable to flush. Given 12/30/2021 11:21 AM EST 10 mL documented in this encounter Advance Directives Documents on File Type Date Recorded Patient Mechanical Systems Engineer Expl 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 Care Teams Music Therapist Relationship Specialty Start Date End Date Hortencia Leal PA-C [address] [facility] [address] PCP - General Physician Cvt Tech 02/08/18 documented as of this encounter
--- OUTSIDE RECORDS SUMMARY | 2023-06-27 07:52 | External Medical Summary | Summary of Care ---
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 [place] [address] 01/24/2022 Laboratory Laboratory [facility] [address] [facility] [place] [address] 01/24/2022 Office Visit Hematology Oncology Emperatriz Blackman CRNP [address] [facility] [place] [address] 01/25/2022 Hem/Onc Treatment Hematology Oncology [place], Chair [address] [facility] [address] [facility] [place] [address] 02/01/2022 Imaging Radiology 02/08/2022 Office Visit Hematology Oncology [facility] MD 200 [facility] [address] 03/29/2022 Office Visit Urology Cm Rhodes MD [address] [place] [address] [place] [address] Health Maintenance Due Date [...] of this encounter Implants Implanted Type Area Coremaker Experimental Device Identifier Shelf Expiration Date Model / Serial / Lot Cath Power Port 6fr Clearvue - [id number] Implanted:Qty : 1 on 08/10/2021 by Alexander Rodriguez MD at [facility] Left: Subclavian CR BARD : PERIPHERAL VASCULAR 08/21/2021 [id number] / / documented as of this encounter [...] on Sun01/11/22 at 1230, Until Sun01/11/22 at 2229 Start Infusion 01/11/2022 12:24 PM EDT 500 mL 50 mL/hr diphenhydrAMINE (Benadryl) inj 50 mg 50 mg, IV Push, ONCE PRN Other, Hypersensitivity Reaction, Starting on Sun01/11/22 at 1154, Until Chandrika 01/12/22 at 1153, For 24 hours EPINEPHrine 1 MG/ML inj 0.3 mg 0.3 mg, Intramuscular, ONCE PRN Other, Hypersensitivity Reaction or Anaphylaxis, Starting on Sun01/11/22 at 1154, Until Sun01/12/22 at 1153, For 24 hours hEParin 100 UNIT/ML Lock Flush inj 500 Units 500 Units (5 mL), IV Lock, PRN Other, IV Flush, Starting on Sun01/11/22 at 1154, Until Sun01/12/22 at 1153, For 24 hours, Do not flush if lock, PICC, or central line not in place; IV infusing or unable to flush. Hydrocortisone Na Succinate PF (Solu-Cortef) inj 100 mg 100 mg, IV Push, ONCE PRN Other, Hypersensitivity Reaction, Starting on Sun01/11/22 at 1154, Until Sun01/12/22 at 1153, For 24 hours sodium chloride 0.9 % flush/inj 10 mL 10 mL, IV Push, PRN Other, IV Flush, Starting on Sun01/11/22 at 1154, Until Sun01/12/22 at 1153, For 24 hours, Do not flush if [...] to specify base solution and volume. Total Owxw=1340 mg/m2 for 46 hours, ONCE, 1 dose, [...] Documents on File Type Date Recorded Patient Gyroscopic Engineering Technician Expl 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 Care Teams Financial Underwriter Relationship Specialty Start Date End Date Hortencia Leal PA-C [address] [place] [address] PCP - General Physician Pattern Chart Writer 02/08/18 documented as of this encounter
--- OUTSIDE RECORDS SUMMARY | 2023-06-27 07:52 | External Medical Summary ---
Author Name Unknown Address Unknown Organization K09:[facility] [place] [place] [address] Laboratory Report Ordering Provider Test Date Status SHAY CH 01/10/2022 11:01:04 Final Observation Date Value Abnormality Reference (Units ) Status SYNC LEUKOCYTES IN BLOOD BY AUTOMATED COUNT 01/10/2022 11:01:04 3.74 Below low normal 4.00-10.80 (K/uL) Final Segs 01/10/2022 11:01:04 59.4 40.0-75.0 (%) Final Lymphs % 01/10/2022 11:01:04 24.1 18.0-42.0 (%) Final Monos 01/10/2022 11:01:04 11.2 Above high normal 1.0-11.0 (%) Final Eosinophils 01/10/2022 11:01:04 4.8 0.0-6.0 (%) Final Basos 01/10/2022 11:01:04 0.5 0.0-2.0 (%) Final Absolute Segs 01/10/2022 11:01:04 2.22 1.80-7.70 (K/uL) Final Lymphs, absolute 01/10/2022 11:01:04 0.90 Below low normal 1.00-4.80 (K/ul) Final Monos, Abs 01/10/2022 11:01:04 0.42 0.00-1.10 (K/uL) Final Eos, Abs 01/10/2022 11:01:04 0.18 0.00-0.70 (K/uL) Final Basos, Abs 01/10/2022 11:01:04 0.02 0.00-0.20 (K/uL) Final Performing Location [facility] [place] [address]
--- OUTSIDE RECORDS SUMMARY | 2023-06-27 07:52 | External Medical Summary | Summary of Care ---
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 As needed 0 Active Caldwell-3 Fatty Acids (FISH OIL) 1000 MG Capsule [...] Time Taken Comments Blood Pressure 150/68 2021 8:44 AM EST Pulse 66 2021 8:44 AM EST Temperature 36.6 C (97.8 F) 2021 8:44 AM ES T Respiratory Rate 18 2021 8:44 AM EST Oxygen Saturation 96% 2021 8:44 AM EST Inhaled Oxygen Concentration - - Weight 76.5 kg (168 lb 11.2 oz) 2021 8:44 AM EST Height - - Body Mass Index 28.96 08/10/2021 8:15 AM EDT documented in this encounter Progress Notes * Emperatriz Blackman, LYLE - 12/25/2021 9:49 PM EST Hematology/Oncology Outpatient Clinic note [facility] [address] [place] [address] Name: Heath Austin Date: 12/27/2021 CHIEF COMPLAINT: Heath Austin is a 75 year old male patient here today for f/u visit. Patient of Dr. Melo. History from patient chart, my progress note from 12/19/2021, and confirmed with patient. Cancer Diagnosis: Metastatic [...] was consistent with adenocarcinoma moderately differentiated overall Anderson score was 3+4=7with perineural invasion. Histopathology was [...] radical prostatectomy: Adenocarcinoma, moderately poorly differentiated Overall Anderson score 3+4=7 High grade prostatic intraepithelial neoplasia [...] size and separation, cribriform and papillary patterns Anderson Score (primary + secondary) = 5-6: Moderately well differentiated Nodule #2, involves: right lateral apex and right apex Dimensions: 0.9 x 0.3 x 0.9 cm HISTOLOGIC TYPE: Adenocarcinoma HISTOLOGIC GRADE (Anderson): Primary pattern is: Grade 3: single acini of variable size and separation, cribriform and papillarypatterns Secondary pattern is: Grade 3: single acini of variable size and separation, cribriform and papillary patterns Anderson Score (primary + secondary) = 5-6: Moderately [...] OF PRESENT ILLNESS: Heath Austin is a 75 year old male with a history as outlined above. Currently here for f/u visit and C7D1 of treatment. He states that he feels much better today than he did last week. He thinks the supplemental IV fluids helped to improve him feel much better overall. His appetite is still notvery good. However, he is eating and drinking small amounts throughout the day. He also supplementshis diet w/ Ensure twice daily. No difficulty or pain w/ swallowing. No fever, nausea, vomiting, ordiarrhea. No melena or hematochezia. 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 It does not interfere w/ ADL's. He does have some sensitivity tocold for a few days, after the tx. Past Medical History: Diagnosis Date Actinic keratosis [...] DIAGNOSTIC performedby Roz Tracey MD at [facility]COPY [facility] COLONOSCOPY, DIAGNOSTIC (RECTUM) 07/15/2021 COLONOSCOPY FLEXIBLE PROXIMAL DIAGNOSTIC performed by Roz Tracey MD at [facility]COPY [facility] EGD, FLEXIBLE, DIAGNOSTIC 07/15/2021 ESOPHAGOGASTRODUODENOSCOPY (EGD), FLEXIBLE, TRANSORAL, DIAGNOSTIC performed by Roz Tracey MD at [facility] EGD, W/ENDOSCOPIC US 08/02/2021 ESOPHAGOGASTRODUODENOSCOPY (EGD), FLEXIBLE, TRANSORAL, ENDOSCOPIC ULTRASOUND performed by Brendan Gomez MD at [facility]OSCOPY [facility] INSER TUNN ACC DEV;5 YRS/OLDER N/A 08/10/2021 INSERT TUNNELED CENTRAL VENOUS ACCESS WITH SUBQ PORT performed by Alexander Rodriguez MD at [facility] KNEE ARTHROSCOPY, DIAGNOSTIC 1989 Knee Arthroscopy right LAPAROSCOPY,BIOPSY N/A 08/10/2021 LAPAROSCOPY WITH BIOPSY performed by Alexander Rodriguez MD at [facility] NEEDLE/PUNCH BIOPSY OF PROSTATE 01/05/2011 BIOPSY PROSTATE NEEDLE performed by EYAD LANDRUM at [facility] PROSTATECTOMY, RETROPUBIC RADICAL, LAP 10/30/2011 ROBOTIC LAPAROSCOPIC PROSTATECTOMY RETROPUBIC RADICAL performed by EYAD LANDRUM at [facility] REMOVAL OF TONSILS, UNDER AGE 12 Tonsillectomy REPAIR INITIAL INCISIONAL HERNIA 04/18/2012 Laparoscopic ventral hernia repair with 4 x [address] Adams 04/18/12 US ECHO TRANSRECTAL/PROSTATE 01/05/2011 ULTRASOUND TRANSRECTAL performed by EYAD LANDRUM at [facility] Family History Problem Relation Age of Onset [...] mouth 2 times a day. As needed Caldwell-3 Fatty Acids (FISH OIL) 1000 MG Capsule [...] See HPI, otherwise negative. OBJECTIVE: Filed Vitals: 12/28/21 0844 BP: 150/68 Pulse: 66 Resp: 18 Temp: 36.6 C (97.8 F) TempSrc: Oral SpO2: 96% Weight: 76.5 kg (168 lb 11.2 oz) Wt Readings from Last 5 Encounters: 12/28/21 76.5 kg (168 lb 11.2 oz) 12/19/21 75.3 kg (166 lb) 11/30/21 76.9 kg (169 lb 9.6 oz) 11/16/21 78 kg (172 lb) 11/02/21 78.6 kg (173 lb 3.2 oz) PHYSICAL EXAM: General Appearance: Normal - Healthy [...] orders placed or performed in visit on 12/27/21 COMPREHENSIVE METABOLIC PANEL Result Value Ref Range BUN 15 6 - 20 mg/dL Creatinine 1.5 (H) 0.6 - 1.2 mg/dL Estimated Glomerular Filtration Rate 49 (L) >=60 mL/min Sodium 141 135 - 146 mmol/L Potassium 4.1 3.5 - 5.1 mmol/L Chloride 104 98 - 107 mmol/L CO2 25 22 - 32 mmol/L Anion Gap 12 7 - 15 mmol/L Glucose 119 70 - 120 mg/dL Albumin 4.0 3.8 - 5.0 g/dL AST 19 10 - 50 U/L Alkaline Phosphatase 70 35 - 130 U/L Bilirubin, Total 0.3 <=1.2 mg/dL Calcium 10.1 8.4 - 10.2 mg/dL Protein 6.9 6.0 - 8.3 g/dL ALT 10 10 - 50 U/L CBC Result Value Ref Range WBC 5.66 4.00 - 10.80 K/uL RBC 3.18 (L) 4.50 - 5.25 M/uL HGB 10.4 (L) 14.0 - 16.8 g/dL HCT 32.9 (L) 40.0 - 48.4 % MCV 103.5 (H) 82.0 - 99.5 fL MCH 32.7 27.0 - 34.0 pg MCHC 31.6 (L) 32.0 - 36.0 g/dL RDW 20.0 (H) 11.5 - 15.5 % PLT 124 (L) 140 - 400 K/uL MPV 8.4 6.6 - 11.1 fL DIFFERENTIAL, AUTOMATED Result Value Ref Range WBC 5.66 4.00 - 10.80 K/uL Neutrophils % 58.6 40.0 - 75.0 % Lymphocytes % 27.6 18.0 - 42.0 % Monocytes % 10.8 1.0 - 11.0 % Eosinophils % 2.5 0.0 - 6.0 % Basophils % 0.5 0.0 - 2.0 % Absolute Neutrophils 3.32 1.80 - 7.70 K/uL Absolute Lymphocytes 1.56 1.00 - 4.80 K/ul Absolute Monocytes 0.61 0.00 - 1.10 K/uL Absolute Eosinophils 0.14 0.00 - 0.70 K/uL Absolute Basophils 0.03 0.00 - 0.20 K/uL TSH WITH FREE T4 IF INDICATED Result Value Ref Range TSH 1.16 0.27 - 4.20 uIU/mL IMPRESSION: Malignant neoplasm of overlapping sites of [...] Days). On 09/13/2021 pt had a transfusion [id number] of PRBC's for a HGB of 7.2. PET CT on 10/26/2021IMPRESSION: Positive response to therapy: 1. Interval resolution of the metabolic activity within circumferentially wall thickening of the distal esophagus; gastric fundus; and lesser gastric curvature. 2. 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 On 11/15/2021 w/ Cycle 5 addednivolumab 240 mg once every 2 weeks. Pt has been tolerating the tx well. No immune mediated side effects. We did give him supplemental IV fluids last week because he was not drinking very well. No current issues w/ nausea, vomiting, or diarrhea. His po intake is fair and he is taking Ensure as a supplement. Physical exam is unremarkable. Functional status is good. He is ambulating well. Labs reviewed and within acceptable range. PLAN: RTC on 12/30/21 for disconnect. Labs on 01/10/22 at [facility]: CBCD, CMP, and TSH. RTC on 01/11/22 w/ me. Chemo. Will repeat PET CT on 02/01/22. He should see Dr. Melo on 02/08/2022. Encouraged pt to contact our office w/ questions or concerns. We can repeat supplemental IV fluids,if needed. I had a discussion with Heath Austin regarding the plan of care, treatment and other issues. Twenty-five minutes were spent counseling the patient face to face. The total time spent in the appointment was 30 minutes. LYLE Bates documented in this encounter Nursing Notes * Ajit Ferguson CMA - 2021 8:47 AM EST Patient identifed by name and [...] it for you? ALREADY ACTIVE Filed Vitals: 12/28/21 0844 BP: 150/68 Pulse: 66 Resp: 18 Temp: 36.6 C (97.8 F) TempSrc: Oral SpO2: 96% Weight: 76.5 kg (168 lb 11.2 oz) Pt would like to know if he will be getting a PET scan soon to track progress. 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) Expected: 02/01/2022, Expires: 01/28/2023 Health Maintenance Due Date Last Done Comments [...] of this encounter Implants Implanted Type Area Nonprofit Fundraiser Device Identifier Shelf Expiration Date Model / Serial / Lot Cath Power Port 6fr Clearvue - [id number] Implanted:Qty : 1 on 08/10/2021 by Alexander Rodriguez MD at [facility] Left: Subclavian CR BARD : PERIPHERAL VASCULAR 08/21/2021 [id number] / / documented as of this encounter Visit Diagnoses Diagnosis 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 Care Teams Clip Bolter And Wrapper Relationship Specialty Start Date End Date Hortencia Leal PA-C [address] [place] [address] PCP - General Physician [facility] 02/08/18 documented as of this encounter
--- OUTSIDE RECORDS SUMMARY | 2023-06-27 07:52 | External Medical Summary | Summary of Care ---
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) Procedures [place] LEUCOVORIN CALCIUM INJECTION [place] PALONOSETRON HCL [place] FLUOROURACIL INJECTION [place] OXALIPLATIN [place] INJECTION, NIVOLUMAB Nik Melo MD [address] [place] [address] Anc Hem/Onc [address] [place] [address] Referral ID Status Reason Start Date Expiration Date V isits Requested Visits Authorized [id number] Authorized 08/19/2021 08/19/2022 99 99 Encounter Details Date Type Department Care Team Description 2021 Hem/Onc Treatment Hematology/Oncology Treatment, [address] [place] [address] Maddy, Chair 4 Hem Onc [address] [place] [address] 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 As needed 0 Active [place]-3 Fatty Acids (FISH OIL) 1000 MG Capsule [...] Hematology Oncolog y Nurse, Med 4 [address] [place] [address] 01/04/2022 Office Visit Urology Cm Rhodes MD [address] [facility] [address] [place] [address] 01/10/2022 Laboratory [facility] [address] [place] [address] 01/11/2022 Hem/Onc Treatment Hematology Oncology [place], Chair 6 Hem Onc Scenery [address] [place] [address] 02/01/2022 Imaging Radiology 02/08/2022 Office Visit Hematology Oncology Nik Melo MD [address] [place] [address] Health Maintenance Due Date Last Done Comments [...] of this encounter Implants Implanted Type Area Manifest Clerk Device Identifier Shelf Expiration Date Model / Serial / Lot Cath Power Port 6fr Clearvue - [id number] Implanted:Qty : 1 on 08/10/2021 by Alexander Rodriguez MD at [place] [facility] Left: Subclavian CR BARD : PERIPHERAL VASCULAR 08/21/2021 [id number] / / documented as of this encounter [...] on Sun12/28/21 at 1015, Until Sun12/28/21 at 2014 Start Infusion 2021 9:45 AM EST 500 mL 50 mL/hr diphenhydrAMINE (Benadryl) inj 50 mg 50 mg, IV Push, ONCE PRN Other, Hypersensitivity Reaction, Starting on Sun12/28/21 at 0934, Until Chandrika 12/29/21 at 0933, For 24 hours EPINEPHrine 1 MG/ML inj 0.3 mg 0.3 mg, Intramuscular, ONCE PRN Other, Hypersensitivity Reaction or Anaphylaxis, Starting on Sun12/28/21 at 0934, Until Chandrika 12/29/21 at 0933, For 24 hours hEParin 100 UNIT/ML Lock Flush inj 500 Units 500 Units (5 mL), IV Lock, PRN Other, IV Flush, Starting on Sun12/28/21 at 0934, Until Chandrika 12/29/21 at 0933, For 24 hours, Do not flush if lock, PICC, or central line not in place; IV infusing or unable to flush. Hydrocortisone Na Succinate PF (Solu-Cortef) inj 100 mg 100 mg, IV Push, ONCE PRN Other, Hypersensitivity Reaction, Starting on Sun12/28/21 at 0934, Until Sun12/29/21 at 0933, For 24 hours sodium chloride 0.9 % flush/inj 10 mL 10 mL, IV Push, PRN Other, IV Flush, Starting on Sun12/28/21 at 0934, Until Sun12/29/21 at 0933, For 24 hours, Do not flush if [...] to specify base solution and volume. Total Fcnd=7600 mg/m2 for 46 hours, ONCE, 1 dose, [...] Documents on File Type Date Recorded Patient Information Technology Intern Expl 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 Care Teams Plug Making Operator Relationship Specialty Start Date End Date Hortencia Leal PA-C [address] [place] [address] PCP - General Physician Antisqueak Chalker 02/08/18 documented as of this encounter
--- OUTSIDE RECORDS SUMMARY | 2023-06-27 07:53 | External Medical Summary ---
Author Name Unknown Address Unknown Organization [id number]:[facility] [place] [address] Laboratory Report Ordering Provider Test Date Status SHAY CH 12/19/2021 09:46:41 Final Observation Date Value Abnormality Reference (Units ) Status WBC, Total 12/19/2021 09:46:41 2.90 Below low normal 4. 00-10.80 (K/uL) Final RBC 12/19/2021 09:46:41 3.38 Below low normal 4.5 0-5.25 (M/uL) Final Hemoglobin 12/19/2021 09:46:41 11.0 Below low normal 14 .0-16.8 (g/dL) Final HCT 12/19/2021 09:46:41 33.8 Below low normal 40. 0-48.4 (%) Final MCV 12/19/2021 09:46:41 100.0 Above high normal 82 .0-99.5 (fL) Final MCH 12/19/2021 09:46:41 32.5 27.0-34.0 (pg) Final MCHC 12/19/2021 09:46:41 32.5 32.0-36.0 (g/dL) Final RDW 12/19/2021 09:46:41 20.7 Above high normal 11 .5-15.5 (%) Final Platelets 12/19/2021 09:46:41 146 140-400 (K /uL) Final MPV 12/19/2021 09:46:41 8.8 6.6-11.1 ( fL) Final Performing Location [facility] [place] [address]
--- OUTSIDE RECORDS SUMMARY | 2023-06-27 07:53 | External Medical Summary ---
Author Name Unknown Address Unknown Organization [id number]:[facility] [address] Laboratory Report Ordering Provider Test Date Status SHAY CH 12/19/2021 09:46:41 Final Observation Date Value Abnormality Reference (Units ) Status SYNC LEUKOCYTES IN BLOOD BY AUTOMATED COUNT 12/19/2021 09:46:41 2.90 Below low normal 4.00-10.80 (K/uL) Final Segs 12/19/2021 09:46:41 25.2 Below low normal 40.0-75.0 (%) Final Lymphs % 12/19/2021 09:46:41 50.3 Above high normal 18.0-42.0 (%) Final Monos 12/19/2021 09:46:41 17.6 Above high normal 1.0-11.0 (%) Final Eosinophils 12/19/2021 09:46:41 6.2 Above high normal 0.0-6.0 (%) Final Basos 12/19/2021 09:46:41 0.7 0.0-2.0 (%) Final Absolute Segs 12/19/2021 09:46:41 0.73 Below low normal 1.80-7.70 (K/uL) Final Lymphs, absolute 12/19/2021 09:46:41 1.46 1.00-4.80 (K/ul) Final Monos, Abs 12/19/2021 09:46:41 0.51 0.00-1.10 (K/uL) Final Eos, Abs 12/19/2021 09:46:41 0.18 0.00-0.70 (K/uL) Final Basos, Abs 12/19/2021 09:46:41 0.02 0.00-0.20 (K/uL) Final Performing Location [facility] [place] [address]
--- OUTSIDE RECORDS SUMMARY | 2023-06-27 07:53 | External Medical Summary | Summary of Care ---
Author Name Unknown Organization [place] [address] Care Team Providers Care Wall Taper Name Role Phone Hortencia Leal PA-C Primary Care Provid er Reason for Visit * Reason Onset Date Comments Test Results Lab 12/19/2021 Encounter Details Date Type Department Care Team Description 12/19/2021 Telephone Hematology/Oncology Treatment, [place] [address] [place] [address] Nik Melo MD [address] [place] [address] Test Results Lab Allergies Active Allergy Reactions Severity Noted Date Comments Amlodipine 11/02/2020 dizziness Codeine Sulfate Other (Please comment) 10/26/19 11 hyperactivity Hydrochlorothiazide 11/02/2020 hypercalcemia documented as of this encounter (statuses as of 12/19/2021) Medications Medication Sig Dispensed Refills Start Date [...] a day. As needed 0 Active [place]-3 Fatty Acids (FISH OIL) 1000 MG [...] 0 Active Dexamethasone 4 MG Oral Tablet (Decadron)Indicat [...] 08/16/2021 Prochlorperazine Maleate 10 MG Oral Tablet (Compazine)Indica [...] every 8 hours as needed for Nausea. 30 Tablet 3 11/18/2021 2 Discontinue d(Refill) documented as of this encounter (statuses as of 12/19/2021) Active Problems Problem Noted Date Adenocarcinoma of esophagus metastatic t o intra-abdominal lymph node 08/17/2021 Kidney stones 08/16/2021 RINA (stress urinary incontinence), male 08/16/2021 Renal cyst, acquired 08/16/2021 Encounter for antineoplastic chemotherap y 08/04/2021 Malignant neoplasm of overlapping sites of stomach 07/21/2021 Prostate cancer 12/31/2013 Other ventral hernia without mention of obstruction or gangrene 05/03/2012 documented as of this encounter (statuses as of 12/19/2021) Resolved Problems Problem Noted Date Resolved Date Elevated prostate specific antigen (PSA) 011 12/31/2013 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 Done. * Telephone Encounter - Venita Byers RN - 12/19/2021 10:45 AM EST Patient presented for lab work prior to chemotherapy next week. Was not feeling well, so was added to see Emperatriz Silverman. ANC 0.73. Per Dr Mccray, patient to HOLD tx for 1 week. Scheduling: when patient checks out, please cancel tx appt tomorrow and reschedule for next week (either Sunday or Sunday). He will need labs "CBCd, CMP" prior to noon the day before treatment. Thanks! documented in this encounter Plan of Treatment Upcoming Encounters Date Type Specialty Care Team Description 12/27/2021 Laboratory [facility] [address] [facility], [place] [id number] 2021 Office Visit Hematology Oncology Emperatriz Blackman, RED HAT LINUX ADMINISTRATOR [address] [place], [place] [address] 2021 Hem/Onc Treatment Hematology Oncology [place], Chair 4 Hem Onc Scenery [address] [place], [place] [address] Health Maintenance Due Date Last Done Comments [...] SCREEN EVERY 3 YRS-AGE 45 AND ABOVE 12/19/2024 12/19/2021, 11/29/2021, 11/15/2021, Additional history exists Influenza Vaccine (FLU shot) Completed 06/2021, 08/21/2018, 07/14/2017, Additional history exists GARDASIL-HPV IMMUNIZATION SERIES Aged Out No longer eligible based on patient's age to complete this topic MENINGOCOCCAL (MENACTRA/MENVEO) Aged Out No longer eligible based on patient's age to complete this topic documented as of this encounter Implants Implanted Type Area Outbound Sales Professional Device Identifier Shelf Expiration Date Model / Serial / Lot Cath Power Port 6fr Clearvue - [id number] Implanted:Qty : 1 on 08/10/2021 by Alexander Rodriguez MD [place] [facility] [place] Left: Subclavian CR BARD : PERIPHERAL VASCULAR 08/21/2021 [id number] / / documented as of this encounter Advance Directives Documents on File Type Date Recorded Patient Shore Worker Expl 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 Care Teams Wall Taper Relationship Specialty Start Date End Date Hortencia Leal PA-C [address] [facility] [address] PCP - General Physician Research Assistant 02/08/18 documented as of this encounter
--- OUTSIDE RECORDS SUMMARY | 2023-06-27 07:53 | External Medical Summary ---
Author Name Unknown Address Unknown Organization K09:[facility] [place] [address] Laboratory Report Ordering Provider Test Date Status SHAY CH 12/27/2021 10:20:22 Final Observation Date Value Abnormality Reference (Units ) Status SYNC LEUKOCYTES IN BLOOD BY AUTOMATED COUNT 12/27/2021 10:20:22 5.66 4.00-10.80 (K/uL) Final Segs 12/27/2021 10:20:22 58.6 40.0-75.0 (%) Final Lymphs % 12/27/2021 10:20:22 27.6 18.0-42.0 (%) Final Monos 12/27/2021 10:20:22 10.8 1.0-11.0 (%) Final Eosinophils 12/27/2021 10:20:22 2.5 0.0-6.0 (%) Final Basos 12/27/2021 10:20:22 0.5 0.0-2.0 (%) Final Absolute Segs 12/27/2021 10:20:22 3.32 1.80-7.70 (K/uL) Final Lymphs, absolute 12/27/2021 10:20:22 1.56 1.00-4.80 (K/ul) Final Monos, Abs 12/27/2021 10:20:22 0.61 0.00-1.10 (K/uL) Final Eos, Abs 12/27/2021 10:20:22 0.14 0.00-0.70 (K/uL) Final Basos, Abs 12/27/2021 10:20:22 0.03 0.00-0.20 (K/uL) Final Performing Location [facility] [place] [address]
--- OUTSIDE RECORDS SUMMARY | 2023-06-27 07:53 | External Medical Summary | Summary of Care ---
Author Name Unknown Organization [facility] Address [place] [address] Care Team Providers Care Channel Cementer Insole Machine Name Role Phone Hortencia Leal PA-C Primary Care Provid er Reason for Visit * Reason Comments IV Therapy Hydration Encounter Details Date Type Department Care Team Description 12/19/2021 Hem/Onc Treatment Hematology/Oncology Treatment, [place] [address] [place] [address] M[place], Chair 10 Hem Onc Scenery [address] [place] [address] Dehydration*; Malignant neoplasm of overlapping sites of [...] times a day. As needed 0 Active [place]-3 Fatty Acids (FISH OIL) 1000 MG Capsule [...] of 12/19/2021) Active Problems Problem Noted Date Dehydration 12/19/2021 [...] Nursing Notes * Lakeisha Cortez RN - 12/19/2021 1:34 PM EST Goals: Patient will remain free from injury. Possible barriers to meeting goals: risk for fall d/t weakeness Stability of the patient: Moderately stable - low risk of patient condition declining or worsening Summary regarding today's goals: Met: pt remained free from falls Pt discharged in stable condition. * Lakeisha Cortez RN - 12/19/2021 11:13 AM EST Chair 1 Patient presents to the clinic today for follow up chemo re-check. Patient is not getting chemotherapy tomorrow d/t low ANC. He is getting IV fluids today. CVAD accessed positive blood return noted. NS for hydration started. Safety and Risk for Injury Patient will remain free from injury. Ensure appropriate safety devices are available. Provide and maintain safe environment. documented in this encounter Plan of Treatment Upcoming Encounters Date Type Specialty Care Team Description 12/27/2021 Laboratory Laboratory [place], Lab Scenery [address] [place] [address] 2021 Office Visit Hematology Oncology Emperatriz Blackman, LYLE [address] [place] [address] 2021 Hem/Onc Treatment Hematology Oncology [place], Chair 4 Hem Onc Scenery [address] [place], [place] [address] Health Maintenance Due Date Last Done Comments [...] of this encounter Implants Implanted Type Area Systems Applications Programming Lead Device Identifier Shelf Expiration Date Model / Serial / Lot Cath Power Port 6fr Clearvue - [id number] Implanted:Qty : 1 on 08/10/2021 by Alexander Rodriguez MD at OR [facility] [place] Left: Subclavian CR BARD : PERIPHERAL VASCULAR 08/21/2021 [id number] / / documented as of this encounter [...] Lock, PRN Other, IV Flush, Starting on Sun12/19/21 at 1113, Until Sun12/20/21 at 111, For 24 hours, Do not flush if lock, PICC, or central line not in place; IV infusing or unable to flush. Given 12/19/2021 1:06 PM EST 500 Units sodium chloride 0.9 % flush/inj 10 mL 10 mL, IV Push, PRN Other, IV Flush, Starting on Sun12/19/21 at 1113, Until Sun12/20/21 at 1112, For 24 hours, Do not flush if lock, PICC, or central line not in place; IV infusing or unable to flush. Given 12/19/2021 1:06 PM EST 10 mL Inactive Administered Medications - up to 3 most recent administrations Medication Order MAR Action Action Date Dose Rate Site NSS infusion FOR HYDRATION Intravenous, at 500 mL/hr Administer over 2 Hours, ONCE, 1 dose, On Sun12/19/21 at 1215 Start Infusion 12/19/2021 11:10 AM EST 1,000 mL 500 mL/hr documented in this encounter Advance Directives Documents on File Type Date Recorded Patient Mine Wedge Sawyer Expl 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 Care Teams Channel Cementer Insole Machine Relationship Specialty Start Date End Date Hortencia Leal PA-C [address] [facility] [address] PCP - General Physician Software Test Technician 02/08/18 documented as of this encounter
--- OUTSIDE RECORDS SUMMARY | 2023-06-27 07:53 | External Medical Summary | Summary of Care ---
Author Name Unknown Organization [place] [address] Care Team Providers Care Nut Tapper Name Role Phone Hortencia Leal PA-C Primary Care Provid er Reason for Visit * Reason Onset Date Comments Information 12/13/2021 Encounter Details Date Type Department Care Team Description 12/13/2021 Telephone [facility] [place] 200 [facility] [place] [address] Nik Melo MD 200 [facility] [place] [address] Information Allergies Active Allergy Reactions Severity Noted Date Comments Amlodipine 11/02/2020 dizziness Codeine Sulfate Other (Please comment) 10/26/19 11 hyperactivity Hydrochlorothiazide 11/02/2020 hypercalcemia documented as of this encounter (statuses as of 12/14/2021) Medications Medication Sig Dispensed Refills Start Date [...] times a day. As needed 0 Active [place]-3 Fatty Acids (FISH OIL) 1000 MG Capsule [...] needed for Nausea. 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 He states that his diarrhea has resolved. He still feels very weak, denies dizziness/ lightheadedness. Offered appts tomorrow for labs/ assessment for hydration- patient declined at this time, states that he would like to try fluids PO first. Advised him to call if he changes his mind. He verbalized understanding. * Telephone Encounter - TANI Johnson - 12/13/2021 12:58 PM EST Did call and lmom for patient with new lab work and treatment times. Nursing also told the patient. * Telephone Encounter - Venita Byers RN - 12/13/2021 10:34 AM EST Called and spoke to patient. He notes that he is taking imodium, no more than 4 tablets a day. Advised him that he can take up to 8 tablets a day. Discussed that if imodium is ineffective we can consider prescribing lomotil. Patient denies dizziness, states that urine is light yellow. He is trying to drink fluids, but finds that if he drinks too much then he is too full to eat, has poor appetite. Suggested supplementing with boost or ensure- patient states that he will try this. Advised patient to monitor for symptoms of dehydration as we can have him come in for labs/ ?hydration. Patient declined labs/ ?hydration atthis time. Advised patient that if symptoms do not start to improve by tomorrow or he feels he is getting dehydrated to call office. Patient verbalized understanding. Reviewed new appt times for next week. Dr Melo: GREG * Telephone Encounter - Opal Wesley LPN - 12/13/2021 9:51 AM EST Returned patient's phone call. Patient states he is having diarrhea and he will not be getting labstoday. Patient states he is having runny liquid, no blood in stool. No other symptoms. Patient was advised to come get labs due to diarrhea but patient refused. Patient was informed that if he did not get labs he could not get treatment tomorrow, patient verbalizes understanding. Scheduling, Please reschedule patient labs for "cbcd and cmp" prior to treatment. Please reschedule treatment "folfox- vitaline/opdivo" thanks * Telephone Encounter - Ajit Ferguson CMA - 12/13/2021 9:43 AM EST Pt called and left a message asking for a return call. Pt can be reached at [phone]. documented in this encounter Plan of Treatment Upcoming Encounters Date Type Specialty Care Team Description 12/19/2021 Laboratory Laboratory [facility] [address] [place] [address] 12/20/2021 Hem/Onc Treatment Hematology Oncology [place], Chair 4 Hem Onc Scenery [address] [place] [address] 12/27/2021 Laboratory Laboratory [place], Lab Scenery [address] [place] [address] 2021 Office Visit Hematology Oncology Emperatriz Blackman, GENERATOR ASSEMBLER [address] [place] [address] 2021 Hem/Onc Treatment Hematology Oncology [place], Chair 4 Hem Onc Scenery [address] [place] [address] Health Maintenance Due Date Last Done Comments [...] SCREEN EVERY 3 YRS-AGE 45 AND ABOVE 11/29/2024 11/29/2021, 11/15/2021, 11/01/2021, Additional history exists Influenza Vaccine (FLU shot) Completed 06/2021, 08/21/2018, 07/14/2017, Additional history exists GARDASIL-HPV IMMUNIZATION SERIES Aged Out No longer eligible based on patient's age to complete this topic MENINGOCOCCAL (MENACTRA/MENVEO) Aged Out No longer eligible based on patient's age to complete this topic documented as of this encounter Implants Implanted Type Area Mushroom Grower Device Identifier Shelf Expiration Date Model / Serial / Lot Cath Power Port 6fr Clearvue - [id number] Implanted:Qty : 1 on 08/10/2021 by Alexander Rodriguez MD at [facility] Left: Subclavian CR BARD : PERIPHERAL VASCULAR 08/21/2021 [id number] / / documented as of this encounter Advance Directives Documents on File Type Date Recorded Patient Refinery Pipeline Operator Expl 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 Care Teams Nut Tapper Relationship Specialty Start Date End Date Hortencia Leal PA-C [address] [facility] [address] PCP - General Physician Beauty Therapist 02/08/18 documented as of this encounter
--- OUTSIDE RECORDS SUMMARY | 2023-06-27 07:53 | External Medical Summary | Summary of Care ---
Author Name Unknown Organization [place] [address] Care Team Providers Care Client Experience Specialist Name Role Phone Hortencia Leal PA-C Primary Care Provid er Reason for Visit * Reason Onset Date Comments Test Results Lab 12/19/2021 Encounter Details Date Type Department Care Team Description 12/19/2021 Telephone Hematology/Oncology Treatment, [place] [address] [facility] [place] [address] Nik Melo MD 200 [facility] [place] [address] Test Results Lab Allergies Active Allergy Reactions [...] times a day. As needed 0 Active [place]-3 Fatty Acids (FISH OIL) 1000 MG Capsule [...] feeling well, so was added to see Lina. ANC 0.73. Per Dr Mccray, patient to HOLD tx for 1 week. Scheduling: when patient checks out, please cancel tx appt tomorrow and reschedule for next week (either Sunday or Sunday). He will need labs "CBCd, CMP" prior to noon the day before treatment. Thanks! documented in this encounter Plan of Treatment Upcoming Encounters Date Type Specialty Care Team Description 12/19/2021 Hem/Onc Treatment Hematology Oncology [place], Chair 10 Hem Onc Scenery [address] [place] [address] Arrived 12/27/2021 Laboratory Laboratory Enrique Castañeda Scenery 200 [facility] [place] [address] 2021 Office Visit Hematology Oncology Hiral Emperatriz SilvermanLYLE 200 [facility] [place] [address] 2021 Hem/Onc Treatment Hematology Oncology [place], Chair 4 Hem Onc Scenery 200 [facility] [place] [address] Health Maintenance Due Date Last Done Comments [...] of this encounter Implants Implanted Type Area Riding Coach Device Identifier Shelf Expiration Date Model / Serial / Lot Cath Power Port 6fr Clearvue - [id number] Implanted:Qty : 1 on 08/10/2021 by Alexander Rodriguez MD at [facility] Left: Subclavian CR BARD : PERIPHERAL VASCULAR 08/21/2021 [id number] / / documented as of this encounter Advance Directives Documents on File Type Date Recorded Patient Assembler Insulator Expl 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 Care Teams Client Experience Specialist Relationship Specialty Start Date End Date Hortencia Leal PA-C [address] [facility] [address] PCP - General Physician Plasma Table Operator 02/08/18 documented as of this encounter
--- OUTSIDE RECORDS SUMMARY | 2023-06-27 07:53 | External Medical Summary ---
Author Name Unknown Address Unknown Organization K09[facility] [place] [address] Laboratory Report Ordering Provider Test Date Status SHAY CH 12/27/2021 10:20:22 Final Observation Date Value Abnormality Reference (Units ) Status WBC, Total 12/27/2021 10:20:22 5.66 4.00-10.8 0 (K/uL) Final RBC 12/27/2021 10:20:22 3.18 Below low normal 4.5 0-5.25 (M/uL) Final Hemoglobin 12/27/2021 10:20:22 10.4 Below low normal 14 .0-16.8 (g/dL) Final HCT 12/27/2021 10:20:22 32.9 Below low normal 40. 0-48.4 (%) Final MCV 12/27/2021 10:20:22 103.5 Above high normal 82 .0-99.5 (fL) Final MCH 12/27/2021 10:20:22 32.7 27.0-34.0 (pg) Final MCHC 12/27/2021 10:20:22 31.6 Below low normal 32. 0-36.0 (g/dL) Final RDW 12/27/2021 10:20:22 20.0 Above high normal 11 .5-15.5 (%) Final Platelets 12/27/2021 10:20:22 124 Below low normal 140 -400 (K/uL) Final MPV 12/27/2021 10:20:22 8.4 6.6-11.1 ( fL) Final Performing Location [facility] [place] [address]
--- OUTSIDE RECORDS SUMMARY | 2023-06-27 07:53 | External Medical Summary ---
Author Name Unknown Address Unknown Organization K09[facility] [place] [address] Laboratory Report Ordering Provider Test Date Status SHAY CH 12/19/2021 09:46:41 Final Observation Date Value Abnormality Reference (Units ) Status BUN 12/19/2021 09:46:41 17 6-20 (mg/dL) Final Creatinine 12/19/2021 09:46:41 2.0 Above high normal 0.6-1.2 (mg/dL) Final Glomerular filtration rate/1.73 sq M.predicted [Volume Rate/Area] in Serum, Plasma or Blood by Creatinine-based formula (CKD-EPI) 12/19/2021 09:46:41 35 Below low normal >=60 (mL/min) Final Performing Location [facility] [place] [address]
--- OUTSIDE RECORDS SUMMARY | 2023-06-27 07:53 | External Medical Summary | Summary of Care ---
Author Name Unknown Organization [place] [address] Care Team Providers Care Irrigation Tax Assessor Collector Name Role Phone Hortencia Leal PA-C Primary Care Provid er Reason for Visit * Reason Onset Date Comments Information 12/13/2021 Encounter Details Date Type Department Care Team Description 12/13/2021 Telephone [facility]ology[facility] [place] [place] [facility] [address] Nik Melo MD 200 [place] [address] Information Allergies Active Allergy Reactions Severity Noted Date Comments Amlodipine 11/02/2020 dizziness Codeine Sulfate Other (Please comment) 10/26/19 11 hyperactivity Hydrochlorothiazide 11/02/2020 hypercalcemia documented as of this encounter (statuses as of 12/13/2021) Medications Medication Sig Dispensed Refills Start Date [...] times a day. 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 Pt can be reached at [phone]. documented in this encounter Plan of Treatment Upcoming Encounters Date Type Specialty Care Team Description 12/19/2021 Laboratory Laboratory [place], Lab Scenery [address] [place] [address] 12/20/2021 Hem/Onc Treatment Hematology Oncology [place], Chair 4 Hem Onc Scenery [address] [place] [address] 12/27/2021 Laboratory Laboratory [place], Lab Scenery [address] [place] [address] 2021 Office Visit Hematology Oncology Emperatriz Blackman CRNP [address] [place] [address] 2021 Hem/Onc Treatment Hematology Oncology [place], Chair 4 Hem Onc Scenery [address] [place] [address] Health Maintenance Due Date Last Done Comments [...] of this encounter Implants Implanted Type Area Advice Nurse Device Identifier Shelf Expiration Date Model / Serial / Lot Cath Power Port 6fr Clearvue - [id number] Implanted:Qty : 1 on 08/10/2021 by Alexander Rodriguez MD at [place] [facility] [place] Left: Subclavian CR BARD : PERIPHERAL VASCULAR 08/21/2021 [id number] / / documented as of this encounter Advance Directives Documents on File Type Date Recorded Patient Sausage Cooker Expl 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 Care Teams Irrigation Tax Assessor Collector Relationship Specialty Start Date End Date Hortencia Leal PA-C [address] [facility] [address] PCP - General Physician [place] Dashboard Developer 02/08/18 documented as of this encounter
--- OUTSIDE RECORDS SUMMARY | 2023-06-27 07:53 | External Medical Summary | Summary of Care ---
Author Name Unknown Organization [facility] Address [place] [address] Care Team Providers Care Sales Enablement Manager Name Role Phone Hortencia Leal PA-C Primary Care Provid er Reason for Visit * Reason Comments Sick Loss of appetite; di fficulty sleeping Encounter Details Date Type Department Care Team Description 12/19/2021 Office Visit Hematology/Oncology [place] [address] [facility] [place] [address] Emperatriz Blackman CRNP 200 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 As needed 0 Active [place]-3 Fatty Acids (FISH OIL) 1000 MG Capsule [...] for Nausea. 60 Tablet 3 12/19/2021 Active Ondansetron HCl 8 MG Oral TabletIndications [...] Sign Reading Time Taken Comments Blood Pressure 146/73 12/19/2021 10:24 AM EST Pulse 79 12/19/2021 10:24 AM EST Temperature 36.7 C (98.1 F) 12/19/2021 10:[address] Respiratory Rate 16 12/19/2021 10:24 AM EST Oxygen Saturation 97% 12/19/2021 10:24 AM EST Inhaled Oxygen Concentration - - Weight 75.3 kg (166 lb) 12/19/2021 10:24 AM EST Height - - Body Mass Index 28.49 08/10/2021 8:15 AM EDT documented in this encounter Progress Notes * LYLE Gilliland - 12/19/2021 10:38 AM EST Hematology/Oncology Outpatient Clinic note [facility] [address] [place] [address] Name: Heath Austin Date: 12/19/2021 CHIEF COMPLAINT: Heath Austin is a 75 year old male patient here today for acute visit. Patient of Dr. Melo. History from patient chart, my progress note from 11/30/2021, and confirmed with patient. Cancer Diagnosis: Metastatic esophageal cancer Current Treatment: FOLFOX On 11/15/2021 w/ Cycle 5 added nivolumab 240 mg once every 2 weeks Previous Treatment: None Oncologic History : 75-year-old [...] was consistent with adenocarcinoma moderately differentiated overall Merritt score was 3+4=7with perineural invasion. Histopathology was [...] radical prostatectomy: Adenocarcinoma, moderately poorly differentiated Overall Merritt score 3+4=7 High grade prostatic intraepithelial neoplasia [...] 0.9 cm HISTOLOGIC TYPE: Adenocarcinoma HISTOLOGIC GRADE (Merritt): Primary pattern is: Grade 3: single acini of variable size and separation, cribriform and papillarypatterns Secondary pattern is: Grade 3: single acini of variable size and separation, cribriform and papillary patterns Merritt Score (primary + secondary) = 5-6: Moderately well differentiated Nodule #3 (dominant nodule), involves: left mid, left lateral mid, left lateral, left apex, and left lateral apex Dimensions: 2.5 x 1.5 x 2.1 cm HISTOLOGIC TYPE: Adenocarcinoma HISTOLOGIC GRADE (Merritt): Primary pattern is: Grade 3: single acini of variable size and separation, cribriform and papillarypatterns Secondary pattern is: Grade 4: irregular masses of acini and fused epithelium, can show clear cells Juan Score (primary + secondary) = 7: Moderately poorly differentiated Merritt Score (primary + secondary) = 8-10: Poorly [...] Interpretation: Benign mesothelial cells. PET CT on 10/26/2021 IMPRESSION: Positive response to therapy: 1. Interval resolution of the metabolic activity within circumferentially wall thickening of the distal esophagus; gastric fundus; and lesser gastric curvature. 2. 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 HISTORY OF PRESENT ILLNESS: Heath Austin is a 75 year old male with a history as outlined above. Currently here for an acutevisit today. The pt reports that he is generally not feeling well. He has low energy and a poor appetite. He is eating only small amounts throughout the day. He is having difficulty getting enough fluids. He drinks about two bottles of Boost / per day. He denies fever, abdominal pain, nausea, vomiting, and diarrhea. He did have diarrhea stools about one week ago that resolved w/ use of Imodium. He denies melena and hematochezia. Past Medical History: Diagnosis Date Actinic keratosis [...] DIAGNOSTIC performedby Roz Tracey MD at [facility] COLONOSCOPY, DIAGNOSTIC (RECTUM) 07/15/2021 COLONOSCOPY FLEXIBLE PROXIMAL DIAGNOSTIC performed by Roz Tracey MD at [facility] EGD, FLEXIBLE, DIAGNOSTIC 07/15/2021 ESOPHAGOGASTRODUODENOSCOPY (EGD), FLEXIBLE, TRANSORAL, DIAGNOSTIC performed by Roz Tracey MD at [facility] EGD, W/ENDOSCOPIC US 08/02/2021 ESOPHAGOGASTRODUODENOSCOPY (EGD), FLEXIBLE, TRANSORAL, ENDOSCOPIC ULTRASOUND performed by Brendan Gomez MD at [facility]COPY [facility] INSER TUNN ACC DEV;5 YRS/OLDER N/A 08/10/2021 INSERT TUNNELED CENTRAL VENOUS ACCESS WITH SUBQ PORT performed by Alexander Rodriguez MD at [facility] KNEE ARTHROSCOPY, DIAGNOSTIC 1989 Knee Arthroscopy right LAPAROSCOPY,BIOPSY N/A 08/10/2021 LAPAROSCOPY WITH BIOPSY performed by Alexander Rodriguez MD at [facility] NEEDLE/PUNCH BIOPSY OF PROSTATE 01/05/2011 BIOPSY PROSTATE NEEDLE performed by EYAD LANDRUM at [facility] PROSTATECTOMY, RETROPUBIC RADICAL, LAP 10/30/2011 ROBOTIC LAPAROSCOPIC PROSTATECTOMY RETROPUBIC RADICAL performed by EYAD LANDRUM at [facility] REMOVAL OF TONSILS, UNDER AGE 12 Tonsillectomy REPAIR INITIAL INCISIONAL HERNIA 04/18/2012 Laparoscopic ventral hernia repair with 4 x [address] Adams 04/18/12 US ECHO TRANSRECTAL/PROSTATE 01/05/2011 ULTRASOUND TRANSRECTAL performed by EYAD LANDRUM at [facility] Family History Problem Relation Age of Onset [...] Tablet Take 81 mg by mouth daily. [place]-3 Fatty Acids (FISH OIL) 1000 MG Capsule [...] (MiraLax) Take 17 g by mouth daily. meclizine (ANTIVERT) 12.5 MG Tablet Take 12.5 mg by mouth 2 times a day. As needed Dexamethasone 4 MG Oral Tablet (Decadron) 12 [...] as needed for Nausea. 60 Tablet 2 Ondansetron HCl 8 MG Oral Tablet Take by mouth 1 Tablet every 8 hours as needed for Nausea. 30 Tablet 3 No current facility-administered medications for this visit. REVIEW OF SYSTEMS: Performance Status: Normal - ECOG 2 See HPI, otherwise negative. OBJECTIVE: Filed Vitals: 12/19/21 1024 BP: 146/73 Pulse: 79 Resp: 16 Temp: 36.7 C (98.1 F) TempSrc: Oral SpO2: 97% Weight: 75.3 kg (166 lb) Wt Readings from Last 5 Encounters: 12/19/21 75.3 kg (166 lb) 11/30/21 76.9 kg (169 lb 9.6 oz) 11/16/21 78 kg (172 lb) 11/02/21 78.6 kg (173 lb 3.2 oz) 10/25/21 77.1 kg (170 lb) Is the pt having any pain related to today's visit?: No (12/19/21 1023) PHYSICAL EXAM: General Appearance: Normal - Healthy [...] orders placed or performed in visit on 12/19/21 COMPREHENSIVE METABOLIC PANEL Result Value Ref Range BUN 17 6 - 20 mg/dL Creatinine 2.0 (H) 0.6 - 1.2 mg/dL Estimated Glomerular Filtration Rate 35 (L) >=60 mL/min Sodium 141 135 - 146 mmol/L Potassium 4.1 3.5 - 5.1 mmol/L Chloride 103 98 - 107 mmol/L CO2 25 22 - 32 mmol/L Anion Gap 13 7 - 15 mmol/L Glucose 157 (H) 70 - 120 mg/dL Albumin 4.2 3.8 - 5.0 g/dL AST 21 10 - 50 U/L Alkaline Phosphatase 80 35 - 130 U/L Bilirubin, Total 0.3 <=1.2 mg/dL Calcium 10.4 (H) 8.4 - 10.2 mg/dL Protein 7.1 6.0 - 8.3 g/dL ALT 11 10 - 50 U/L CBC Result Value Ref Range WBC 2.90 (L) 4.00 - 10.80 K/uL RBC 3.38 (L) 4.50 - 5.25 M/uL HGB 11.0 (L) 14.0 - 16.8 g/dL HCT 33.8 (L) 40.0 - 48.4 % MCV 100.0 (H) 82.0 - 99.5 fL MCH 32.5 27.0 - 34.0 pg MCHC 32.5 32.0 - 36.0 g/dL RDW 20.7 (H) 11.5 - 15.5 % PLT 146 140 - 400 K/uL MPV 8.8 6.6 - 11.1 fL DIFFERENTIAL, AUTOMATED Result Value Ref Range WBC 2.90 (L) 4.00 - 10.80 K/uL Neutrophils % 25.2 (L) 40.0 - 75.0 % Lymphocytes % 50.3 (H) 18.0 - 42.0 % Monocytes % 17.6 (H) 1.0 - 11.0 % Eosinophils % 6.2 (H) 0.0 - 6.0 % Basophils % 0.7 0.0 - 2.0 % Absolute Neutrophils 0.73 (L) 1.80 - 7.70 K/uL Absolute Lymphocytes 1.46 1.00 - 4.80 K/ul Absolute Monocytes 0.51 0.00 - 1.10 K/uL Absolute Eosinophils 0.18 0.00 - 0.70 K/uL Absolute Basophils 0.02 0.00 - 0.20 K/uL IMPRESSION: Malignant neoplasm of overlapping sites of stomach Neutropenia Anorexia 75-year-old male with history of prostate cancer [...] is positive. Further testing including PDL1 and MSI/MMR, is pending. If PDL1 is positive then he will be treated with nivolumab plus FOLFOX. If negative then he will only receive FOLFOX chemotherapy. On08/29/2021t startedMODIFIED FOLFOX6 5FU (12 Cycles/14 Days). On 09/13/2021 pt had a transfusion yx6oxeg of PRBC's for a HGB of 7.2. PET CT on 10/26/2021 IMPRESSION: Positive response to therapy: 1. Interval resolution of the metabolic activity within circumferentially wall thickening of the distal esophagus; gastric fundus; and lesser gastric curvature. 2. 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 On 11/15/2021 w/ Cycle 5 added nivolumab 240 mg once every 2 weeks. Tolerated well. No immune mediated side effects noted. Pt is here today for an acute visit. He complains of having a poor appetite and low energy level. He is trying to eat small amounts throughout the day. He is taking Boost supplement twice daily. Pt states his intake of fluids is poor due to reduced appetite. He denies fever, abdominal pain, nausea,vomiting, and diarrhea. He did have diarrhea x 2 days last week and that resolved w/ use of Imodium. Physical exam is unremarkable. Breath sounds are clear. No edema of feet/ankles. Functional statusis fair/good. Pt tires easily, but he able to ambulate independently. Labs reviewed. ANC is low at 0.73. Corrected Ca+ is WNL at 10.2. Kidney function is reduced, but stable. PLAN: HOLD chemo this week due to neutropenia. Will give pt one liter of NSS while in the clinic today. RTC in one week w/ labs: CBCD, CMP, and TSH. RTC on 12/27/2021 chemo (tentative). RTC on 12/30/21 for disconnect. I offered pt a consult w/ Perinatal Technician, but he politely declined. Discussed w/ pt the risk/benefit of Remeron 7.5 mg po q hs to help w/ appetite. Pt prefers to just try to increase his PO intake on his own due to concern about potential side effects. He will let meknow if he changes his mind. I had a discussion with Heath Austin regarding the plan of care, treatment and other issues. Thirty minutes were spent counseling the patient face to face. The total time spent in the appointment was 35 minutes. LYLE Bates documented in this encounter Nursing Notes * Ajit Ferguson CMA - 12/19/2021 10:25 AM EST Patient identifed by name and birthdate Do you have any concerns about pain management for today's visit? No Living Will or Advance Directive for Health Care as noted on the problem list. [facility] is a way you can talk to your provider on line through e-mail. Would you like to sign up? I can activate it for you? ALREADY ACTIVE Filed Vitals: 12/19/21 1024 BP: 146/73 Pulse: 79 Resp: 16 Temp: 36.7 C (98.1 F) TempSrc: Oral SpO2: 97% Weight: 75.3 kg (166 lb) Pt noted that he feels "very tired". Pt stated that he doesn't have much of an appetite or taste for food and he has had difficulty sleeping. He noted that his body feels like it's "getting skinnier". Pt noted that he began feeling this way when his medication was changed. documented in this encounter Plan of Treatment Upcoming Encounters Date Type Specialty Care Team Description 12/27/2021 Laboratory Laboratory [facility] [address] [place] [address] [address] 2021 Office Visit Hematology Oncology Emperatriz Blackman CRNP [address] [place] [address] [address] 2021 Hem/Onc Treatment Hematology Oncology [place], Chair 4 Hem Onc Scenery [address] [place] [address] Health Maintenance Due Date Last Done Comments [...] of this encounter Implants Implanted Type Area Street Contractor Device Identifier Shelf Expiration Date Model / Serial / Lot Cath Power Port 6fr Clearvue - [id number] Implanted:Qty : 1 on 08/10/2021 by Alexander Rodriguez MD [place] [facility]: Subclavian CR BARD : PERIPHERAL VASCULAR 08/21/2021 [id number] / / documented as of this encounter Visit Diagnoses Diagnosis 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)- Primary Malignant neoplasm of other specified sites of stomach 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 Care Teams Sales Enablement Manager Relationship Specialty Start Date End Date Hortencia Leal PA-C [address] [facility] [address] PCP - General Physician Sap Bw Bi Developer 02/08/18 documented as of this encounter
--- OUTSIDE RECORDS SUMMARY | 2023-06-27 07:53 | External Medical Summary | Summary of Care ---
Author Name Unknown Organization [place] [address] Care Team Providers Care Mica Parts Sprayer Name Role Phone Hortencia Leal PA-C Primary Care Provid er Reason for Visit * Reason Onset Date Comments Test Results Lab 12/19/2021 Encounter Details Date Type Department Care Team Description 12/19/2021 Telephone Hematology/Oncology Treatment, [place] [address] [place] [address] Nik Melo MD 200 [place] [address] Test Results Lab Allergies Active Allergy Reactions Severity Noted Date Comments Amlodipine 11/02/2020 dizziness Codeine Sulfate Other (Please comment) 10/26/19 11 hyperactivity Hydrochlorothiazide 11/02/2020 hypercalcemia documented as of this encounter (statuses as of 12/27/2021) Medications Medication Sig Dispensed Refills Start Date [...] times a day. 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 Done. * Telephone Encounter - Blessing Schrader RN - 12/19/2021 10:45 AM EST Patient [...] Encounters Date Type Specialty Care Team Description 2021 Office Visit Hematology Oncology Emperatriz Blackman CRNP [address] [place] [address] 2021 Hem/Onc Treatment Hematology Oncology [place], Chair 4 Hem Onc Scenery [address] [place] [address] 01/04/2022 Office Visit Urology Cm Rhodes MD [address] [place] [address] [place] [address] Scheduled Orders Name Type Priority Associated Diagnoses Orde r Schedule TSH WITH FREE T4 IF INDICATED Lab Routine 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) Encounter for long-term (current) use of medications Expected: 12/27/2021, Expires: 12/27/2022 Health Maintenance Due Date Last Done Comments [...] of this encounter Implants Implanted Type Area Tow Feeder Device Identifier Shelf Expiration Date Model / Serial / Lot Cath Power Port 6fr Michael - [id number] Implanted:Qty : 1 on 08/10/2021 by Alexander Rodriguez MD [place] [facility] [place]: Subclavian CR BARD : PERIPHERAL VASCULAR 08/21/2021 [id number] / / documented as of this encounter Visit Diagnoses Diagnosis 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 Care Teams Mica Parts Sprayer Relationship Specialty Start Date End Date Hortencia Leal PA-C [address] [facility] [place] [address] PCP - General Physician Rn Digestive 02/08/18 documented as of this encounter
--- OUTSIDE RECORDS SUMMARY | 2023-06-27 07:53 | External Medical Summary | Summary of Care ---
Author Name Unknown Organization [place] [address] Care Team Providers Care Home School Teacher Name Role Phone Hortencia Leal PA-C Primary Care Provid er Reason for Visit * Reason Onset Date Comments Information 12/13/2021 Encounter Details Date Type Department Care Team Description 12/13/2021 Telephone Hematology/Oncology [facility] [place] [facility] [address] Nik Melo MD 200 [place] [address] Information Allergies Active Allergy Reactions Severity Noted [...] times a day. As needed 0 Active [place]-3 Fatty Acids (FISH OIL) 1000 MG Capsule [...] return call. Pt can be reached at [phone]. documented in this encounter Plan of Treatment Upcoming Encounters Date Type Specialty Care Team Description 12/14/2021 Hem/Onc Treatment Hematology Oncology [place], Chair 4 Hem Onc Scenery [address] [place], [place] [address] 12/27/2021 Laboratory Laboratory [facility], Lab Scenery [address] [place], [place] [address] 2021 Office Visit Hematology Oncology Emperatriz Blackman, COMMUNITY REINVESTMENT ACT OFFICER [address] [place] [address] 2021 Hem/Onc Treatment Hematology Oncology [place], Chair 4 Hem Onc Scenery [address] [place], [place] [address] Health Maintenance Due Date Last Done Comments [...] of this encounter Implants Implanted Type Area Substance Abuse Technician Device Identifier Shelf Expiration Date Model / Serial / Lot Cath Power Port 6fr Clearvue - [id number] Implanted:Qty : 1 on 08/10/2021 by Alexander Rodriguez MD at [facility] Left: Subclavian CR BARD : PERIPHERAL VASCULAR 08/21/2021 [id number] / / documented as of this encounter Advance Directives Documents on File Type Date Recorded Patient Electrician Aircraft Expl 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 Care Teams Home School Teacher Relationship Specialty Start Date End Date Hortencia Leal PA-C [address] [facility] [place] [address] PCP - General Physician Rodeo Performer 02/08/18 documented as of this encounter
--- OUTSIDE RECORDS SUMMARY | 2023-06-27 07:53 | External Medical Summary ---
Author Name Unknown Address Unknown Organization K01:[facility] [place] - [address] [address] Laboratory Report Ordering Provider Test Date Status SHAY CH 12/27/2021 10:19:46 Final Observation Date Value Abnormality Reference (Units ) Status TSH 12/27/2021 10:19:46 1.16 0.27-4.20 (uIU/mL) Final Performing Location LABOR[facility]ORY [facility] [place] - [address] [place] [address]
--- OUTSIDE RECORDS SUMMARY | 2023-06-27 07:53 | External Medical Summary ---
Author Name Unknown Address Unknown Organization K09:[facility] [place] [address] Laboratory Report Ordering Provider Test Date Status SHAY CH 12/27/2021 10:19:46 Final Observation Date Value Abnormality Reference (Units ) Status BUN 12/27/2021 10:19:46 15 6-20 (mg/dL) Final Creatinine 12/27/2021 10:19:46 1.5 Above high normal 0.6-1.2 (mg/dL) Final Glomerular filtration rate/1.73 sq M.predicted [Volume Rate/Area] in Serum, Plasma or Blood by Creatinine-based formula (CKD-EPI) 12/27/2021 10:19:46 49 Below low normal >=60 (mL/min) Final Performing Location [facility] [place] [address]
--- OUTSIDE RECORDS SUMMARY | 2023-06-27 07:53 | External Medical Summary | Summary of Care ---
Author Name Unknown Organization [place] [address] Care Team Providers Care Field Secretary Name Role Phone Hortencia Leal PA-C Primary Care Provid er Reason for Visit * Reason Onset Date Comments Information 12/13/2021 Encounter Details Date Type Department Care Team Description 12/13/2021 Telephone Hematology/Oncology [facility] [place] [facility] [address] Nik Melo MD 200 [place] [address] Information Allergies Active Allergy Reactions Severity Noted [...] times a day. As needed 0 Active [place]-3 Fatty Acids (FISH OIL) 1000 MG Capsule [...] Reviewed new appt times for next week. Lorie: GREG * Telephone Encounter - Opal Wesley [...] return call. Pt can be reached at [phone]. documented in this encounter Plan of Treatment Upcoming Encounters Date Type Specialty Care Team Description 12/19/2021 Laboratory Laboratory [facility], Lab Scenery [address] [place] [address] 12/20/2021 Hem/Onc Treatment Hematology Oncology [place], Chair 4 Hem Onc Scenery [address] [place] [address] 12/27/2021 Laboratory Laboratory [facility] Sc[facility] [address] [place] [address] 2021 Office Visit Hematology Oncology Emperatriz Blackman CRNP [address] [place] [address] 2021 Hem/Onc Treatment Hematology Oncology [place], Chair 4 Hem Onc Scenery [address] [place] [address] Health Maintenance Due Date Last Done Comments [...] of this encounter Implants Implanted Type Area Grappler Device Identifier Shelf Expiration Date Model / Serial / Lot Cath Power Port 6fr Clearvue - [id number] Implanted:Qty : 1 on 08/10/2021 by Alexander Rodriguez [place] [facility] [place] Subclavian CR BARD : PERIPHERAL VASCULAR 08/21/2021 [id number] / / documented as of this encounter Advance Directives Documents on File Type Date Recorded Patient Lanolin Plant Operator Expl 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 Care Teams Field Secretary Relationship Specialty Start Date End Date Hortencia Leal PA-C [address] [place] [address] PCP - General Physician Environmental Scientists 02/08/18 documented as of this encounter
--- OUTSIDE RECORDS SUMMARY | 2023-06-27 07:53 | External Medical Summary | Summary of Care ---
Author Name Unknown Organization [place] [address] Care Team Providers Care Waste Oil Pumper Name Role Phone Hortencia Leal PA-C Primary Care Provid er Reason for Visit * Reason Comments Outpatient Testing Encounter Details Date Type Department Care Team Description 12/27/2021 Laboratory Laboratory [facility] [place] [address] [place] [address] [facility] [address] [facility] [place] [address] Malignant neoplasm of overlapping sites of stomach [...] times a day. 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) 12/27/2021 10:19 AM EST Health Maintenance Due Date Last [...] of this encounter Implants Implanted Type Area Tooth Inspector Device Identifier Shelf Expiration Date Model / Serial / Lot Cath Power Port 6fr Clearvue - [id number] Implanted:Qty : 1 on 08/10/2021 by Alexander Rodriguez MD at [facility] Left: Subclavian CR BARD : PERIPHERAL VASCULAR 08/21/2021 [id number] / / documented as of this encounter Procedures Procedure Name Priority Date/Time Associated Diagnosis Comments DIFFERENTIAL, AUTOMATED STAT 12/27/2021 10:20 AM EST 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) CBC WITH WBC DIFFERENTIAL STAT 12/27/2021 10:20 AM EST 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) CBC STAT 12/27/2021 10:20 AM EST 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) documented in this encounter Results * DIFFERENTIAL, AUTOMATED (12/27/2021 10:20 AM EST) WBC 5.66 4.00 - 10.80 K/uL [facility] [place] 56-02 Neutrophils % 58.6 40.0 - 75.0 % LAB[facility]ATORY [facility] 56-02 Lymphocytes % 27.6 18.0 - 42.0 % LAB[facility]ATORY [facility] 56-02 Monocytes % 10.8 1.0 - 11.0 % LABORATORY STAT E [facility] 56-02 Eosinophils % 2.5 0.0 - 6.0 % LABORATORY [facility] 56- Basophils % 0.5 0.0 - 2.0 % LABORATORY [facility] Absolute Neutrophils 3.32 1.80 - 7.70 K/uL [facility] 56 Absolute Lymphocytes 1.56 1.00 - 4.80 K/ul [facility] 56 Absolute Monocytes 0.61 0.00 - 1.10 K/uL [facility] 56 Absolute Eosinophils 0.14 0.00 - 0.70 K/uL [facility] 56 Absolute Basophils 0.03 0.00 - 0.20 K/uL [facility] 56- Specimen Blood - Venous blood specime n (specimen) [place] [address] [address] [place] [address] * (ABNORMAL) CBC (12/27/2021 10:20 AM EST) WBC 5.66 4.00 - 10.80 K/uL [place] [address] RBC 3.18(L) 4.50 - 5.25 M/uL [place] [address] HGB 10.4(L) 14.0 - 16.8 g/dL [facility] 56- HCT 32.9(L) 40.0 - 48.4 % [facility] 56- MCV 103.5(H) 82.0 - 99.5 fL [facility] 56- MCH 32.7 27.0 - 34.0 pg [facility] - MCHC 31.6(L) 32.0 - 36.0 g/dL [place] [address]- RDW 20.0(H) 11.5 - 15.5 % [facility] 56- PLT 124(L) 140 - 400 K/uL [facility] 56- MPV 8.4 6.6 - 11.1 fL [facility] Specimen Blood - Venous blood specime n (specimen) [place] [address] [address] [place] [address] documented in this encounter Visit Diagnoses Diagnosis 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 Care Teams Waste Oil Pumper Relationship Specialty Start Date End Date Hortencia Leal PA-C [address] [facility] [address] PCP - General Physician Motor Boss 02/08/18 documented as of this encounter
--- OUTSIDE RECORDS SUMMARY | 2023-06-27 07:54 | External Medical Summary ---
Author Name Unknown Address Unknown Organization [id number][place] [place] [address] [place] [address] Laboratory Report Ordering Provider Test Date Status PATRICK ROSA 11/29/2021 09:32:14 Final Observation Date Value Abnormality Reference (Units ) Status Iron 11/29/2021 09:32:14 98 45-176 (ug /dL) Final Iron-binding capacity 11/29/2021 09:32:14 358 250-425 (ug/dL) Final Transferrin Sat % 11/29/2021 09:32:14 27 15 -55 (%) Final Performing Location [facility] [place] [address] [place] [address]
--- OUTSIDE RECORDS SUMMARY | 2023-06-27 07:54 | External Medical Summary | Summary of Care ---
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) Procedures VA LEUCOVORIN CALCIUM INJECTION VA PALONOSETRON HCL VA FLUOROURACIL INJECTION VA OXALIPLATIN VA INJECTION, NIVOLUMAB Nik Melo MD [address] [place] [address] Anc Hem/Onc [facility] [address] [facility] [place] [address] Referral ID Status Reason Start Date Expiration Date V isits Requested Visits Authorized [id number] Authorized 08/19/2021 08/19/2022 99 99 Encounter Details Date Type Department Care Team Description 12/02/2021 Immunization/I njection Hematology/Oncology Treatment, [place] [address] [facility] [place] [address] [place] [address] Nurse, Med [address] [place] [address] 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 As needed 0 Active [employer]-3 Fatty Acids (FISH OIL) 1000 MG Capsule [...] as of this encounter (statuses as of 12/02/2021) Active Problems Problem Noted Date Adenocarcinoma of esophagus metastatic t o intra-abdominal lymph node 08/17/2021 Kidney stones 08/16/2021 RINA (stress urinary incontinence), male 08/16/2021 Renal cyst, acquired 08/16/2021 Encounter for antineoplastic chemotherap y 08/04/2021 Malignant neoplasm of overlapping sites of stomach 07/21/2021 Prostate cancer 12/31/2013 Other ventral hernia without mention of obstruction or gangrene 05/03/2012 documented as of this encounter (statuses as of 12/02/2021) Resolved Problems Problem Noted Date Resolved Date Elevated prostate specific antigen (PSA) 011 12/31/2013 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 Pt arrived today for 5FU pump disconnect. Pt arrived with some time left on pump. He reportshe is having some constipation, discussed he should take PRN bowel meds, he further reports he has dulcolax at home. Pt also reports some fatigue. He states this is the first cycle he is noticing cold sensitivity, in his hands and drinking cold fluids, discussed drinking room temp fluids for a few days until sensation resolves. Bag is now complete, pt disconnected and port flushed per protocol. VAD flushed with 10 ml NSS and Heparin 5 ml (100 units/ml). Vasquez needle removed intact. Pt discharged in stable condition. documented in this encounter Plan of Treatment Upcoming Encounters Date Type Specialty Care Team Description 12/07/2021 Office Visit Urology Cm Rhodes MD [address] [facility] [address] [place] [id number] 12/13/2021 Laboratory Laboratory [place], Lab Scenery [address] [place] [address] 12/14/2021 Hem/Onc Treatment Hematology Oncology [place], Chair 4 Hem Onc [address] [place] [address] 12/27/2021 Laboratory Laboratory [place], Lab Scenery [address] [place] [address] 2021 Office Visit Hematology Oncology Emperatriz Blackman CRNP [address] [place] [address] 2021 Hem/Onc Treatment Hematology Oncology [place], Chair 4 Hem Onc [address] [facility] [address] Health Maintenance Due Date Last Done Comments [...] of this encounter Implants Implanted Type Area Global Regulatory Lead Device Identifier Shelf Expiration Date Model / Serial / Lot Cath Power Port 6fr Clearvue - [id number] Implanted:Qty : 1 on 08/10/2021 by Alexander Rodriguez MD at [place] [facility] [place] Left: Subclavian CR BARD : PERIPHERAL VASCULAR 08/21/2021 [id number] / / documented as of this encounter [...] Lock, PRN Other, IV Flush, Starting on Sun12/02/21 at 1135, Until 12/03/21 at 1134, For 24 hours, Do not flush if lock, PICC, or central line not in place; IV infusing or unable to flush. Given 12/02/2021 11:51 AM EST 500 Units sodium chloride 0.9 % flush/inj 10 mL 10 mL, IV Push, PRN Other, IV Flush, Starting on Sun12/02/21 at 1135, Until 12/03/21 at 1134, For 24 hours, Do not flush if lock, PICC, or central line not in place; IV infusing or unable to flush. Given 12/02/2021 11:51 AM EST 10 mL documented in this encounter Advance Directives Documents on File Type Date Recorded Patient Violin Restorer Expl anation Advanced Directive Advanced Directive [...] were consensually agreed upon. Care Teams Licensing Analyst Relationship Specialty Start Date End Date Hortencia Leal PA-C [address] [facility] [address] PCP - General Physician Farm Consultant 02/08/18 documented as of this encounter
--- OUTSIDE RECORDS SUMMARY | 2023-06-27 07:54 | External Medical Summary ---
Author Name Unknown Address Unknown Organization [id number]:[facility] [place] [address] Laboratory Report Ordering Provider Test Date Status SHAY CH 11/29/2021 09:32:14 Final Observation Date Value Abnormality Reference (Units ) Status BUN 11/29/2021 09:32:14 17 6-20 (mg/dL) Final Creatinine 11/29/2021 09:32:14 2.0 Above high normal 0.6-1.2 (mg/dL) Final Glomerular filtration rate/1.73 sq M.predicted [Volume Rate/Area] in Serum, Plasma or Blood by Creatinine-based formula (CKD-EPI) 11/29/2021 09:32:14 35 Below low normal >=60 (mL/min) Final Performing Location [facility] [place] [place] [address]
--- OUTSIDE RECORDS SUMMARY | 2023-06-27 07:54 | External Medical Summary | Summary of Care ---
Author Name Unknown Organization [place] [address] Care Team Providers Care Watch Caser Name Role Phone Hortencia Leal PA-C Primary Care Provid er Encounter Details Date Type Department Care Team Description 12/12/2021 Orders Only Hematology/Oncology [facility] [address] [place] [address] Nik Melo MD 200 [place] [address] Allergies Active Allergy Reactions Severity Noted Date Comments Amlodipine 11/02/2020 dizziness Codeine Sulfate Other (Please comment) 10/26/19 11 hyperactivity Hydrochlorothiazide 11/02/2020 hypercalcemia documented as of this encounter (statuses as of 12/12/2021) Medications Medication Sig Dispensed Refills Start Date [...] times a day. As needed 0 Active [place]-3 Fatty Acids (FISH OIL) 1000 MG Capsule [...] as of this encounter (statuses as of 12/12/2021) Active Problems Problem Noted Date Adenocarcinoma of esophagus metastatic t o intra-abdominal lymph node 08/17/2021 Kidney stones 08/16/2021 RINA (stress urinary incontinence), male 08/16/2021 Renal cyst, acquired 08/16/2021 Encounter for antineoplastic chemotherap y 08/04/2021 Malignant neoplasm of overlapping sites of stomach 07/21/2021 Prostate cancer 12/31/2013 Other ventral hernia without mention of obstruction or gangrene 05/03/2012 documented as of this encounter (statuses as of 12/12/2021) Resolved Problems Problem Noted Date Resolved Date Elevated prostate specific antigen (PSA) 011 12/31/2013 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 documented as of this encounter (statuses as of 12/12/2021) Immunizations Name Administration Dates Next Due COVID-19 [...] Encounters Date Type Specialty Care Team Description 12/13/2021 Laboratory Laboratory [place], Lab Scenery [address] [place] [address] 12/14/2021 Hem/Onc Treatment Hematology Oncology [place], Chair 4 Hem Onc Scenery [address] [place] [address] 12/27/2021 Laboratory Laboratory [place] Lab Scenery [address] [place] [address] 2021 Office Visit Hematology Oncology Emperatriz Blackman CRNP [address] [place] [address] 2021 Hem/Onc Treatment Hematology Oncology [place], Chair 4 Hem Onc Scen[address] [place] [address] Health Maintenance Due Date Last Done Comments [...] of this encounter Implants Implanted Type Area Judo Instructor Device Identifier Shelf Expiration Date Model / Serial / Lot Cath Power Port 6fr Clearvue - [id number] Implanted:Qty : 1 on 08/10/2021 by Alexander Rodriguez MD at [place] [facility] [place] Left: Subclavian CR BARD : PERIPHERAL VASCULAR 08/21/2021 [id number] / / documented as of this encounter Advance Directives Documents on File Type Date Recorded Patient Social Contact Worker Expl 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 Care Teams Watch Caser Relationship Specialty Start Date End Date Hortencia Leal PA-C [address] [facility], [place] [address] PCP - General Physician Brine Process Operator 02/08/18 documented as of this encounter
--- OUTSIDE RECORDS SUMMARY | 2023-06-27 07:54 | External Medical Summary ---
Author Name Unknown Address Unknown Organization [id number]:[facility] [place] [address] Laboratory Report Ordering Provider Test Date Status SHAY CH 11/29/2021 09:32:14 Final Observation Date Value Abnormality Reference (Units ) Status WBC, Total 11/29/2021 09:32:14 4.22 4.00-10.8 0 (K/uL) Final RBC 11/29/2021 09:32:14 3.50 Below low normal 4.5 0-5.25 (M/uL) Final Hemoglobin 11/29/2021 09:32:14 10.6 Below low normal 14 .0-16.8 (g/dL) Final HCT 11/29/2021 09:32:14 33.6 Below low normal 40. 0-48.4 (%) Final MCV 11/29/2021 09:32:14 96.0 82.0-99.5 (fL) Final MCH 11/29/2021 09:32:14 30.3 27.0-34.0 (pg) Final MCHC 11/29/2021 09:32:14 31.5 Below low normal 32. 0-36.0 (g/dL) Final RDW 11/29/2021 09:32:14 19.0 Above high normal 11 .5-15.5 (%) Final Platelets 11/29/2021 09:32:14 107 Below low normal 140 -400 (K/uL) Final MPV 11/29/2021 09:32:14 8.9 6.6-11.1 ( fL) Final Performing Location [facility] [place] [address]
--- OUTSIDE RECORDS SUMMARY | 2023-06-27 07:54 | External Medical Summary | Summary of Care ---
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 As needed 0 Active [place]-3 Fatty Acids (FISH OIL) 1000 MG Capsule [...] as of this encounter (statuses as of 11/30/2021) Active Problems Problem Noted Date Adenocarcinoma of esophagus metastatic t o intra-abdominal lymph node 08/17/2021 Kidney stones 08/16/2021 RINA (stress urinary incontinence), male 08/16/2021 Renal cyst, acquired 08/16/2021 Encounter for antineoplastic chemotherap y 08/04/2021 Malignant neoplasm of overlapping sites of stomach 07/21/2021 Prostate cancer 12/31/2013 Other ventral hernia without mention of obstruction or gangrene 05/03/2012 documented as of this encounter (statuses as of 11/30/2021) Resolved Problems Problem Noted Date Resolved Date Elevated prostate specific antigen (PSA) 011 12/31/2013 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 documented as of this encounter (statuses as of 11/30/2021) Immunizations Name Administration Dates Next Due COVID-19 [...] Sign Reading Time Taken Comments Blood Pressure 148/70 11/30/2021 9:20 AM EST Pulse 62 11/30/2021 9:20 AM EST Temperature 35.2 C (95.3 F) 11/30/2021 9:20 AM ES T Respiratory Rate 18 11/30/2021 9:20 AM EST Oxygen Saturation 94% 11/30/2021 9:20 AM EST Inhaled Oxygen Concentration - - Weight 76.9 kg (169 lb 9.6 oz) 11/30/2021 9:20 A M EST Height - - Body Mass Index 29.11 08/10/2021 8:15 AM EDT documented in this encounter Progress Notes * LYLE Gilliland - 11/29/2021 1:12 PM EST Hematology/Oncology Outpatient Clinic note [facility] [address] [place] [address] Name: Heath Austin Date: 11/30/2021 CHIEF COMPLAINT: Heath Austin is a 75 year old male patient here today for f/u visit. Patient of Dr. Melo. History from patient chart, Dr. Melo's progress note from 11/02/2021, and confirmed with patient. Cancer Diagnosis: Metastatic [...] was consistent with adenocarcinoma moderately differentiated overall [place] score was 3+4=7with perineural invasion. Histopathology was [...] size and separation, cribriform and papillary patterns [place] Score (primary + secondary) = 5-6: Moderately well differentiated Nodule #2, involves: right lateral apex and right apex Dimensions: 0.9 x 0.3 x 0.9 cm HISTOLOGIC TYPE: Adenocarcinoma HISTOLOGIC GRADE (King [place]): Primary pattern is: Grade 3: single acini of variable size and separation, cribriform and papillarypatterns Secondary pattern is: Grade 3: single acini of variable size and separation, cribriform and papillary patterns [place] Score (primary + secondary) = 5-6: Moderately [...] and fused epithelium, can show clear cells [place] Score (primary + secondary) = 7: Moderately poorly differentiated [place] Score (primary + secondary) = 8-10: Poorly [...] outlined above. Currently here for f/u visit today. The pt reports that he is feeling okay today. He is tolerating the tx w/ only some mild fatigue and nausea. He is taking Zofran for nausea w/ relief. No emesis or diarrhea. His appetite is poor, but he is able to eat and drink. Admits to not drinking enough fluids. He does have some intermittent constipation relieved w/ Miralax. Past Medical History: Diagnosis Date Actinic keratosis [...] DIAGNOSTIC performedby Roz Tracey MD at ENDOSCOPY [facility] COLONOSCOPY, DIAGNOSTIC (RECTUM) 07/15/2021 COLONOSCOPY FLEXIBLE PROXIMAL DIAGNOSTIC performed by Roz Tracey MD at ENDOSCOPY [facility] EGD, FLEXIBLE, DIAGNOSTIC 07/15/2021 ESOPHAGOGASTRODUODENOSCOPY (EGD), FLEXIBLE, TRANSORAL, DIAGNOSTIC performed by Roz Tracey MD at ENDOSCOPY [facility] EGD, W/ENDOSCOPIC US 08/02/2021 ESOPHAGOGASTRODUODENOSCOPY (EGD), FLEXIBLE, TRANSORAL, ENDOSCOPIC ULTRASOUND performed by Brendan Gomez MD at ENDOSCOPY [facility] INSER TUNN ACC DEV;5 YRS/OLDER N/A 08/10/2021 INSERT TUNNELED CENTRAL VENOUS ACCESS WITH SUBQ PORT performed by Alexander Rodriguez MD at OR [facility] KNEE ARTHROSCOPY, DIAGNOSTIC 1989 Knee Arthroscopy right LAPAROSCOPY,BIOPSY N/A 08/10/2021 LAPAROSCOPY WITH BIOPSY performed by Alexander Rodriguez MD at OR [facility] NEEDLE/PUNCH BIOPSY OF PROSTATE 01/05/2011 BIOPSY PROSTATE NEEDLE performed by EYAD LANDRUM at [facility] PROSTATECTOMY, RETROPUBIC RADICAL, LAP 10/30/2011 ROBOTIC LAPAROSCOPIC PROSTATECTOMY RETROPUBIC RADICAL performed by EYAD LANDRUM at [facility] REMOVAL OF TONSILS, UNDER AGE 12 Tonsillectomy REPAIR INITIAL INCISIONAL HERNIA 04/18/2012 Laparoscopic ventral hernia repair with 4 x [address] Adams 04/18/12 US ECHO TRANSRECTAL/PROSTATE 01/05/2011 ULTRASOUND TRANSRECTAL performed by EYAD LANDRUM at OR [facility] Family History Problem Relation Age of Onset [...] mouth 2 times a day. As needed [place]-3 Fatty Acids (FISH OIL) 1000 MG Capsule [...] Route Frequency Provider Last Rate Last Admin [START ON 11/30/2021] Fluorouracil (5-Fu) 4,650 mg for Home Infusion 2,400 mg/m2 (Treatment Plan Recorded) Intravenous Once Nik Melo MD REVIEW OF SYSTEMS: Performance Status: Normal - ECOG 1 See HPI, otherwise negative. OBJECTIVE: Filed Vitals: 11/30/21 0920 BP: 148/70 Pulse: 62 Resp: 18 Temp: 35.2 C (95.3 F) TempSrc: Infrared SpO2: 94% Weight: 76.9 kg (169 lb 9.6 oz) Wt Readings from Last 5 Encounters: 11/30/21 76.9 kg (169 lb 9.6 oz) 11/16/21 78 kg (172 lb) 11/02/21 78.6 kg (173 lb 3.2 oz) 10/25/21 77.1 kg (170 lb) 10/04/21 80.8 kg (178 lb 3.2 oz) PHYSICAL EXAM: General Appearance: [...] orders placed or performed in visit on 11/29/21 COMPREHENSIVE METABOLIC PANEL Result Value Ref Range BUN 17 6 - 20 mg/dL Creatinine 2.0 (H) 0.6 - 1.2 mg/dL Estimated Glomerular Filtration Rate 35 (L) >=60 mL/min Sodium 141 135 - 146 mmol/L Potassium 4.2 3.5 - 5.1 mmol/L Chloride 104 98 - 107 mmol/L CO2 25 22 - 32 mmol/L Anion Gap 12 7 - 15 mmol/L Glucose 130 (H) 70 - 120 mg/dL Albumin 4.3 3.8 - 5.0 g/dL AST 16 10 - 50 U/L Alkaline Phosphatase 71 35 - 130 U/L Bilirubin, Total 0.6 <=1.2 mg/dL Calcium 10.1 8.4 - 10.2 mg/dL Protein 7.2 6.0 - 8.3 g/dL ALT 9 (L) 10 - 50 U/L CBC Result Value Ref Range WBC 4.22 4.00 - 10.80 K/uL RBC 3.50 (L) 4.50 - 5.25 M/uL HGB 10.6 (L) 14.0 - 16.8 g/dL HCT 33.6 (L) 40.0 - 48.4 % MCV 96.0 82.0 - 99.5 fL MCH 30.3 27.0 - 34.0 pg MCHC 31.5 (L) 32.0 - 36.0 g/dL RDW 19.0 (H) 11.5 - 15.5 % Plt 107 (L) 140 - 400 K/uL MPV 8.9 6.6 - 11.1 fL DIFFERENTIAL, AUTOMATED Result Value Ref Range WBC 4.22 4.00 - 10.80 K/uL Neutrophils % 49.6 40.0 - 75.0 % Lymphocytes % 33.6 18.0 - 42.0 % Monocytes % 12.8 (H) 1.0 - 11.0 % Eosinophils % 3.1 0.0 - 6.0 % Basophils % 0.9 0.0 - 2.0 % Absolute Neutrophils 2.09 1.80 - 7.70 K/uL Absolute Lymphocytes 1.42 1.00 - 4.80 K/ul Absolute Monocytes 0.54 0.00 - 1.10 K/uL Absolute Eosinophils 0.13 0.00 - 0.70 K/uL Absolute Basophils 0.04 0.00 - 0.20 K/uL IMPRESSION: Malignant neoplasm of overlapping sites of stomach Anemia Nausea 75-year-old male with history of prostate cancer [...] then he will only receive FOLFOX chemotherapy. On 08/29/2021 pt started MODIFIED FOLFOX6 5FU (12 Cycles/14 Days). On 09/13/2021 pt had a transfusion of 1 unit of PRBC's for a HGB of 7.2. [...] side effects noted. Pt is here today to for labs and a follow up appointment, prior to C6D1 of chemo. He is tolerating the tx w/ minimal side effects. He denies difficulty/pain w/ swallowing. Mild coldsensitivity in his hands. No neuropathic pain. Needs to increase his fluid intake. Physical exam isunremarkable. Functional status is good. Vitals stable. Labs within acceptable limits. PLAN: RTC on 12/02/2021 for disconnect. Labs on 12/13/21 at [facility]: CBCD, CMP, and TSH. RTC 12/14/2021 for chemo. RTC on 12/16/2021 for disconnect. Labs on 12/27/2021: CBCD, CMP, and TSH. RTC on 2021 w/ me. Chemo. I had a discussion with Heath Austin regarding the plan of care, treatment and other issues. Thirty-five minutes were spent counseling the patient face to face. The total time spent in the appointment was 40 minutes. documented in this encounter Nursing Notes * Ajit Ferguson CMA - 11/30/2021 9:23 AM EST Patient identifed by name and [...] it for you? ALREADY ACTIVE Filed Vitals: 11/30/21 0920 BP: 148/70 Pulse: 62 Resp: 18 Temp: 35.2 C (95.3 F) TempSrc: Infrared SpO2: 94% Weight: 76.9 kg (169 lb 9.6 oz) documented in this encounter Plan of Treatment Upcoming Encounters Date Type Specialty Care Team Description 12/02/2021 Immunization/Injection Hematology Oncolog y Nurse, Med [address] [place] [address] 12/13/2021 Laboratory Laboratory [place], Lab Scenery [address] [place] [address] 12/14/2021 Office Visit Urology Cm Rhodes MD [address] [address] [place] [address] 12/14/2021 Hem/Onc Treatment Hematology Oncology Maddy, Chair 4 Hem Onc Scenery [address] [place] [address] 12/27/2021 Laboratory Laboratory [place], Lab Scenery [address] [facility] [place] [address] 2021 Office Visit Hematology Oncology Emperatriz Blackman CRNP [address] [place] [address] 2021 Hem/Onc Treatment Hematology Oncology [place], Chair 4 Hem Onc Scenery [address] [place] [address] Health Maintenance Due Date Last Done Comments [...] of this encounter Implants Implanted Type Area Infectious Waste Technician Device Identifier Shelf Expiration Date Model / Serial / Lot Cath Power Port 6fr Clearvue - [id number] Implanted:Qty : 1 on 08/10/2021 by Alexander Rodriguez MD at OR [facility] Left: Subclavian CR BARD : PERIPHERAL VASCULAR 08/21/2021 [id number] / / documented as of this encounter Results * IRON SCREEN, INCLUDING TIBC (11/29/2021 9:32 AM EST) Iron 98 45 - 176 ug/dL LAB[facility]ATORY [facility] Iron Binding Capacity 358 250 - 425 ug/dL LABORATOR Y [facility] Transferrin Saturation Percent 27 15 - 55 % LABORATORY [facility] Specimen Blood - Venous blood specime n (specimen) Performing Organization Address [facility] Co de Phone Number LABORATORY C [address] [place] [address] * FERRITIN (11/29/2021 9:32 AM EST) Ferritin 133 30 - 400 ng/mL LABORATORY GM Specimen Blood - Venous blood specime n (specimen) Performing Organization Address [facility] Co de Phone Number LABORATORY C [address] [place] [address] documented in this encounter Visit Diagnoses Diagnosis 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 Care Teams Fuse Cutter Relationship Specialty Start Date End Date Hortencia Leal PA-C [address] [place] [address] PCP - General Physician Production Troubleshooter 02/08/18 documented as of this encounter
--- OUTSIDE RECORDS SUMMARY | 2023-06-27 07:54 | External Medical Summary | Summary of Care ---
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) Procedures MO LEUCOVORIN CALCIUM INJECTION MO PALONOSETRON HCL MO FLUOROURACIL INJECTION MO OXALIPLATIN MO INJECTION, NIVOLUMAB Nik Melo MD [address] [place] [address] Anc Hem/Onc [address] [place] [address] Referral ID Status Reason Start Date Expiration Date V isits Requested Visits Authorized [id number] Authorized 08/19/2021 08/19/2022 99 99 Encounter Details Date Type Department Care Team Description 11/30/2021 Hem/Onc Treatment Hematology/Oncology Treatment, [address] [place] [address] Maddy, Chair 10 Hem Onc [address] [place] [address] 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 As needed 0 Active [place]-3 Fatty Acids (FISH OIL) 1000 MG Capsule [...] Nursing Notes * Andra Solitario RN - 11/30/2021 2:01 PM EST Functional status at today's visit: [...] to meeting goals: ambulation with IV pole, fatigue Stability of the patient: Moderately stable - low risk of patient condition declining or worsening Summary regarding today's goals: Met: Pt remained free of injury today. Patient tolerated treatment well and was connected to home 5FU infusion pump. He was discharged in stable condition. Coverage by A Button RN. * Andra Solitario RN - 11/30/2021 10:17 AM EST Chair 10 Pt was seen by ANTHONY ALVARENGA today, see office notes. Will proceed with Opdivo/Folfox as planned. VAD accessed by A Button RN without difficultly, fluids infusing. Safety and Risk for Injury Patient will remain free from injury. Ensure appropriate safety devices are available. Provide and maintain safe environment. documented in this encounter Plan of Treatment Upcoming Encounters Date Type Specialty Care Team Description 12/02/2021 Immunization/Injection Hematology Oncolog y Nurse, Med [address] [place] [address] 12/13/2021 Laboratory Laboratory [place], Lab Scenery [address] [place] [address] 12/14/2021 Office Visit Urology Cm Rhodes MD [address] [place] [address] 12/14/2021 Hem/Onc Treatment Hematology Oncology [place], Chair 4 Hem Onc Scenery [address] [place] [address] 12/27/2021 Laboratory Laboratory [place], Lab Scenery [address] [place] [address] 2021 Office Visit Hematology Oncology Hiral Emperatriz Silverman, CONFERENCE DIRECTOR [address] [place] [address] 2021 Hem/Onc Treatment Hematology Oncology [place], Chair 4 Hem Onc Scenery [address] [place] [address] Health Maintenance Due Date Last Done Comments [...] of this encounter Implants Implanted Type Area Commercial Illustrator Device Identifier Shelf Expiration Date Model / Serial / Lot Cath Power Port 6fr Clearvue - [id number] Implanted:Qty : 1 on 08/10/2021 by Alexander Rodriguez MD [place] [facility] Left: Subclavian CR BARD : PERIPHERAL VASCULAR 08/21/2021 [id number] / / documented as of this encounter [...] Intravenous, at 50 mL/hr, CONTINUOUS, Starting on Sun11/30/21 at 1045, Until Sun11/30/21 at 2044 Start Infusion 11/30/2021 10:15 AM EST 500 mL 50 mL/hr diphenhydrAMINE (Benadryl) inj 50 mg 50 mg, IV Push, ONCE PRN Other, Hypersensitivity Reaction, Starting on Sun11/30/21 at 1014, Until Chandrika 12/01/21 at 1013, For 24 hours EPINEPHrine 1 MG/ML inj 0.3 mg 0.3 mg, Intramuscular, ONCE PRN Other, Hypersensitivity Reaction or Anaphylaxis, Starting on Sun11/30/21 at 1014, Until Chandrika 12/01/21 at 1013, For 24 hours hEParin 100 UNIT/ML Lock Flush inj 500 Units 500 Units (5 mL), IV Lock, PRN Other, IV Flush, Starting on Sun11/30/21 at 1014, Until Chandrika 12/01/21 at 1013, For 24 hours, Do not flush if lock, PICC, or central line not in place; IV infusing or unable to flush. Hydrocortisone Na Succinate PF (Solu-Cortef) inj 100 mg 100 mg, IV Push, ONCE PRN Other, Hypersensitivity Reaction, Starting on Sun11/30/21 at 1014, Until Chandrika 12/01/21 at 1013, For 24 hours sodium chloride 0.9 % flush/inj 10 mL 10 mL, IV Push, PRN Other, IV Flush, Starting on Sun11/30/21 at 1014, Until Chandrika 12/01/21 at 1013, For 24 hours, Do not flush if lock, PICC, or central line not in place; IV infusing or unable to flush. Inactive Administered Medications - up to 3 most recent administrations Medication Order MAR Action Action Date Dose Rate Site Dexamethasone (Decadron) tab 12 mg 12 mg, Oral, ONCE, On Sun11/30/21 at 1030, For 1 dose Given 11/30/2021 10:24 AM EST 12 mg Fluorouracil (5-Fu) 4,650 mg for Home Infusion 4,650 mg (rounded from 4,656 mg = 2,400 mg/m2 1.94 m2 Treatment Plan BSA from Recorded weight), Intravenous, Administer over 46 Hours, Home Infusion Pharmacy to specify base solution and volume. Total Uzht=7200 mg/m2 for 46 hours, ONCE, 1 dose, On Sun11/30/21 at 1515 Start Infusion 11/30/2021 1:55 PM EST 4,650 mg Fluorouracil (5-Fu) inj 775 mg 775 mg (rounded from 776 mg = 400 mg/m2 1.94 m2 Treatment Plan BSA from Recorded weight), IV Push, ONCE, 1 dose, On Sun11/30/21 at 1345 Given 11/30/2021 1:50 PM EST 775 mg leucovorin calcium 800 mg in D5W 250 mL INFUSION 800 mg (rounded from 776 mg = 400 mg/m2 1.94 m2 Treatment Plan BSA from Recorded weight), IV Piggyback, at 125 mL/hr Administer over 120 Minutes, ONCE, 1 dose, On Sun11/30/21 at 1145, Before 5-FU Start Infusion 11/30/2021 11:46 AM EST 800 mg 125 mL/hr Nivolumab (Opdivo) 240 mg in NSS 100 mL ivpb 240 mg, IV Piggyback, at 200 mL/hr Administer over 30 Minutes, DO NOT SHAKE Use a sterile, non-pyrogenic, low protein binding in-line filter (0.2 micrometer-1.2 micrometer) , ONCE, 1 dose, On Sun11/30/21 at 1115 Start Infusion 11/30/2021 11:10 AM EST 240 mg 200 mL/hr Oxaliplatin (Eloxatin) 150 mg in D5W 500 mL infusion 150 mg (rounded from 164.9 mg = 85 mg/m2 1.94 m2 Treatment Plan BSA from Recorded weight), IV Piggyback, at 250 mL/hr Administer over 120 Minutes, Flush with D5W only!, ONCE, 1 dose, On Sun11/30/21 at 1145 Start Infusion 11/30/2021 11:46 AM EST 150 mg 250 mL/hr palonosetron (Aloxi) inj SOLN 0.25 mg 0.25 mg, IV Push, ONCE, On Sun11/30/21 at 1030, For 1 dose, Restricted per GHS antiemetic guidelines Given 11/30/2021 10:24 AM EST 0.25 mg documented in this encounter Advance Directives Documents on File Type Date Recorded Patient International Travel Consultant Expl 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 Care Teams Setter Off Relationship Specialty Start Date End Date Hortencia Leal PA-C [address] [facility] [address] PCP - General Physician Cyber Engineer 02/08/18 documented as of this encounter
--- OUTSIDE RECORDS SUMMARY | 2023-06-27 07:54 | External Medical Summary | Summary of Care ---
Author Name Unknown Organization [place] [address] Care Team Providers Care It Manager Name Role Phone Hortencia Leal PA-C Primary Care Provid er Reason for Visit * Reason Onset Date Comments Information 11/29/2021 chemo tomorrow Encounter Details Date Type Department Care Team Description 11/29/2021 Telephone Hematology/Oncology [facility] [address] [place] [address] Nik Melo MD 200 [place] [address] Information (chemo tomorrow) Allergies Active Allergy Reactions Severity Noted Date Comments Amlodipine 11/02/2020 dizziness Codeine Sulfate Other (Please comment) 10/26/19 11 hyperactivity Hydrochlorothiazide 11/02/2020 hypercalcemia documented as of this encounter (statuses as of 11/29/2021) Medications Medication Sig Dispensed Refills Start Date [...] times a day. As needed 0 Active [place]-3 Fatty Acids (FISH OIL) 1000 MG Capsule [...] as of this encounter (statuses as of 11/29/2021) Active Problems Problem Noted Date Adenocarcinoma of esophagus metastatic t o intra-abdominal lymph node 08/17/2021 Kidney stones 08/16/2021 RINA (stress urinary incontinence), male 08/16/2021 Renal cyst, acquired 08/16/2021 Encounter for antineoplastic chemotherap y 08/04/2021 Malignant neoplasm of overlapping sites of stomach 07/21/2021 Prostate cancer 12/31/2013 Other ventral hernia without mention of obstruction or gangrene 05/03/2012 documented as of this encounter (statuses as of 11/29/2021) Resolved Problems Problem Noted Date Resolved Date Elevated prostate specific antigen (PSA) 011 12/31/2013 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 Pt is ok for treatment tomorrow as planned. Home 5FUorder released and pharmacy aware. 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)*; Encounter for antineoplastic chemotherapy; Malignant neoplasm of overlapping sites of stomach (HCC) 12/14/2021 Office Visit Urology Cm Rhodes MD [address] [place] [address] [place] [address] Health Maintenance Due Date [...] of this encounter Implants Implanted Type Area Skiving Machine Operator Device Identifier Shelf Expiration Date Model / Serial / Lot Cath Power Port 6fr Clearvue - [id number] Implanted:Qty : 1 on 08/10/2021 by Alexander Rodriguez MD at OR [facility] [place] Left: Subclavian CR BARD : PERIPHERAL VASCULAR 08/21/2021 [id number] / / documented as of this encounter Advance Directives Documents on File Type Date Recorded Patient Brick Extruder Operator Expl anation Advanced Directive Advanced Directive [...] were consensually agreed upon. Care Teams It Manager Relationship Specialty Start Date End Date Hortencia Leal PA-C [address] [facility], [place] [address] PCP - General Physician Clerk General Office 02/08/18 documented as of this encounter
--- OUTSIDE RECORDS SUMMARY | 2023-06-27 07:54 | External Medical Summary ---
Author Name Unknown Address Unknown Organization K01:LABORATORY [facility] - [address] [place] [address] Laboratory Report Ordering Provider Test Date Status SHAY CH 11/29/2021 09:32:14 Final Observation Date Value Abnormality Reference (Units ) Status TSH 11/29/2021 09:32:14 0.88 0.27-4.20 (uIU/mL) Final Performing Location LABORATORY [facility] - [address] [place] [address]
--- OUTSIDE RECORDS SUMMARY | 2023-06-27 07:54 | External Medical Summary | Summary of Care ---
Author Name Unknown Organization [facility] Address [facility] [place] [address] Care Team Providers Care Extruding Machine Operator Name Role Phone Hortencia Leal PA-C Primary Care Provid er Reason for Visit * Reason Onset Date Comments Advice 11/29/2021 Lab asked patiramiro t is PSA needed Encounter Details Date Type Department Care Team Description 11/29/2021 Telephone Hematology/Oncology [facility] [address] Tai Mccray MD 200 [place] [address] Advice (Lab asked patient is PSA needed) Allergies Active Allergy Reactions Severity Noted Date [...] a day. As needed 0 Active [place]-3 Fatty Acids (FISH OIL) 1000 MG Capsule [...] encounter Miscellaneous Notes * Telephone Encounter - Tai Mccray MD - 11/29/2021 9:41 AM EST Will forward to Emperatriz Silverman. ( Dr. Melo's case.). He has an appointment with Emperatriz Silverman tomorrow. * Telephone Encounter - TANI Pelaez - 11/29/2021 9:34 AM EST Patient came over after having labs done and stated that the lab was asking patient if he needed a PSA done. Nursing/Mccray - Please advise lab if PSA is needed for patient. documented in this encounter Plan of Treatment Upcoming Encounters Date Type Specialty Care Team Description 11/30/2021 Office Visit Hematology Oncology Emperatriz Blackman CRNP [address] [place] [address] 11/30/2021 Hem/Onc Treatment Hematology [place]cology [place], Chair 10 Hem Onc [place] [address] [place] [address] [address] 12/14/2021 Office Visit Urology Cm Rhodes MD [address] [place] [address] Health Maintenance Due Date Last Done Comments [...] SCREEN EVERY 3 YRS-AGE 45 AND ABOVE 11/15/2024 11/15/2021, 11/01/2021, 10/24/2021, Additional history exists Influenza Vaccine (FLU shot) Completed 06/2021, 08/21/2018, 07/14/2017, Additional history exists GARDASIL-HPV IMMUNIZATION SERIES Aged Out No longer eligible based on patient's age to complete this topic MENINGOCOCCAL (MENACTRA/MENVEO) Aged Out No longer eligible based on patient's age to complete this topic documented as of this encounter Implants Implanted Type Area Software Configuration Manager Device Identifier Shelf Expiration Date Model / Serial / Lot Cath Power Port 6fr Clearvue - [id number] Implanted:Qty : 1 on 08/10/2021 by Alexander Rodriguez MD at OR [facility] [place] Left: Subclavian CR BARD : PERIPHERAL VASCULAR 08/21/2021 [id number] / / documented as of this encounter Advance Directives Documents on File Type Date Recorded Patient Camp Manager Expl 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 Care Teams Extruding Machine Operator Relationship Specialty Start Date End Date Hortencia Leal PA-C [address] [place] [address] PCP - General Physician Supplemental Nurse 02/08/18 documented as of this encounter
--- OUTSIDE RECORDS SUMMARY | 2023-06-27 07:54 | External Medical Summary ---
Author Name Unknown Address Unknown Organization K01:[facility] - [address] [place] [address] Laboratory Report Ordering Provider Test Date Status PATRICK ROSA 11/29/2021 09:32:14 Final Observation Date Value Abnormality Reference (Units ) Status Ferritin 11/29/2021 09:32:14 133 30-400 (ng /mL) Final Performing Location [facility] - [address] [place] [address]
--- OUTSIDE RECORDS SUMMARY | 2023-06-27 07:54 | External Medical Summary ---
Author Name Unknown Address Unknown Organization K09:[facility] [place] [address] Laboratory Report Ordering Provider Test Date Status SHAY CH 11/29/2021 09:32:14 Final Observation Date Value Abnormality Reference (Units ) Status SYNC LEUKOCYTES IN BLOOD BY AUTOMATED COUNT 11/29/2021 09:32:14 4.22 4.00-10.80 (K/uL) Final Segs 11/29/2021 09:32:14 49.6 40.0-75.0 (%) Final Lymphs % 11/29/2021 09:32:14 33.6 18.0-42.0 (%) Final Monos 11/29/2021 09:32:14 12.8 Above high normal 1.0-11.0 (%) Final Eosinophils 11/29/2021 09:32:14 3.1 0.0-6.0 (%) Final Basos 11/29/2021 09:32:14 0.9 0.0-2.0 (%) Final Absolute Segs 11/29/2021 09:32:14 2.09 1.80-7.70 (K/uL) Final Lymphs, absolute 11/29/2021 09:32:14 1.42 1.00-4.80 (K/ul) Final Monos, Abs 11/29/2021 09:32:14 0.54 0.00-1.10 (K/uL) Final Eos, Abs 11/29/2021 09:32:14 0.13 0.00-0.70 (K/uL) Final Basos, Abs 11/29/2021 09:32:14 0.04 0.00-0.20 (K/uL) Final Performing Location [facility] [place] [address]
--- OUTSIDE RECORDS SUMMARY | 2023-06-27 07:54 | External Medical Summary ---
Author Name Unknown Address Unknown Organization K01:[facility] - [address] [place] [address] Laboratory Report Ordering Provider Test Date Status ZEUS STOVER 11/29/2021 09:32:14 Final Observation Date Value Abnormality Reference (Units ) Status PSA 11/29/2021 09:32:14 <0.02 <4.10 (ng/ mL) Final Performing Location [facility] - [address] [place] [address]
--- OUTSIDE RECORDS SUMMARY | 2023-06-27 07:54 | External Medical Summary | Summary of Care ---
Author Name Unknown Organization [place] [address] Care Team Providers Care Senior Operations Analyst Name Role Phone Hortencia Leal PA-C Primary Care Provid er Reason for Visit * Reason Onset Date Comments Information 12/13/2021 Encounter Details Date Type Department Care Team Description 12/13/2021 Telephone [facility] [place] [facility] [address] Nik Melo MD 200 [facility] [place] [address] Information Allergies Active Allergy Reactions Severity Noted [...] a day. As needed 0 Active [place]-3 Fatty Acids (FISH OIL) 1000 MG Capsule [...] encounter Miscellaneous Notes * Telephone Encounter - Ajit Ferguson CMA - 12/13/2021 9:43 AM EST Pt called and left a message asking for a return call. Pt can be reached at [phone]. documented in this encounter Plan of Treatment Upcoming Encounters Date Type Specialty Care Team Description 12/14/2021 Hem/Onc Treatment Hematology [facility] [place], Chair 4 Hem Onc Scenery [address] [place] [address] [address] 12/27/2021 Laboratory Laboratory [facility] [address] [place] [address] [address] 2021 Office Visit Hematology Oncology Emperatriz Blackman CRNP [address] [place] [address] [address] 2021 Hem/Onc Treatment Hematology [facility] [place], Chair 4 Hem Onc Scenery [address] [place] [address] Health Maintenance Due Date Last Done Comments [...] of this encounter Implants Implanted Type Area Move Coordinator Device Identifier Shelf Expiration Date Model / Serial / Lot Cath Power Port 6fr Clearvue - [id number] Implanted:Qty : 1 on 08/10/2021 by Alexander Rodriguez MD at [place] [facility] [place] Left: Subclavian CR BARD : PERIPHERAL VASCULAR 08/21/2021 [id number] / / documented as of this encounter Advance Directives Documents on File Type Date Recorded Patient Concrete Boom Pump Operator Expl anation Advanced Directive Advanced Directive [...] were consensually agreed upon. Care Teams Senior Operations Analyst Relationship Specialty Start Date End Date Hortencia Leal PA-C [address] [place] [address] PCP - General Physician Peoplesoft Developer 02/08/18 documented as of this encounter
--- OUTSIDE RECORDS SUMMARY | 2023-06-27 07:54 | External Medical Summary | Summary of Care ---
Author Name Unknown Organization [facility] Address [facility] [place] [address] Care Team Providers Care Freezer Tunnel Operator Name Role Phone Hortencia Leal PA-C Primary Care Provid er Reason for Visit * Reason Onset Date Comments Advice 11/29/2021 Lab asked patiramiro t is PSA needed Encounter Details Date Type Department Care Team Description 11/29/2021 Telephone Hematology/Oncology [facility] [address] Tai Mccray MD [address] [place] [address] Advice (Lab asked patient is PSA needed) [...] times a day. As needed 0 Active [place]-3 Fatty Acids (FISH OIL) 1000 MG Capsule [...] Emperatriz Blackman CRNP [address] [place] [address] [address] [address] 11/30/2021 Hem/Onc Treatment Hematology [place] [place], Chair 10 Hem Onc [place] [address] [place] [address] [address] 12/14/2021 Office Visit Urology Cm Rhodes MD [address] [place] [address] Health Maintenance Due Date Last Done Comments [...] of this encounter Implants Implanted Type Area House Registry Rn Device Identifier Shelf Expiration Date Model / Serial / Lot Cath Power Port 6fr Clearvue - [id number] Implanted:Qty : 1 on 08/10/2021 by Alexander Rodriguez MD at OR [facility] [place] [facility] Left: Subclavian CR BARD : PERIPHERAL VASCULAR 08/21/2021 [id number] / / documented as of this encounter Advance Directives Documents on File Type Date Recorded Patient Geographic Information Systems Director Expl 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 Care Teams Freezer Tunnel Operator Relationship Specialty Start Date End Date Hortencia Leal PA-C [address] [place] [address] PCP - General Physician Miller Kiln Dried Salt 02/08/18 documented as of this encounter
--- OUTSIDE RECORDS SUMMARY | 2023-06-27 07:54 | External Medical Summary | Summary of Care ---
Author Name Unknown Organization [facility] Address [facility] [place] [address] Care Team Providers Care Head Greenskeeper Name Role Phone Hortencia Leal PA-C Primary Care Provid er Reason for Visit * Reason Onset Date Comments Advice 11/29/2021 Lab asked patiramiro t is PSA needed Encounter Details Date Type Department Care Team Description 11/29/2021 Telephone Hematology/Oncology [facility] [address] Tai Mccray MD [address] [place] [address] Advice (Lab asked patient is PSA needed) [...] times a day. As needed 0 Active [place]-3 Fatty Acids (FISH OIL) 1000 MG Capsule [...] Telephone Encounter - Venita Byers RN - 11/29/2021 10:54 AM EST Patient was due for PSA ordered by urology. Called the lab, they will pull this order and add to previous specimen. * Telephone Encounter - Tai Mccray MD [...] Description 11/30/2021 Office Visit Hematology Oncology Emperatriz Blackman, BUSINESS EXCELLENCE MANAGER [address] [place] [address] 11/30/2021 Hem/Onc Treatment Hematology Oncology [place], Chair 10 Hem Onc Scenery [address] [place] [address] 12/14/2021 Office Visit Urology Cm Rhodes MD 27 [facility] [address] [place] [address] Health Maintenance Due Date Last [...] of this encounter Implants Implanted Type Area Crossing Watchman Device Identifier Shelf Expiration Date Model / Serial / Lot Cath Power Port 6fr Clearvue - [id number] Implanted:Qty : 1 on 08/10/2021 by Alexander Rodriguez [place] [facility] [place]: Subclavian CR BARD : PERIPHERAL VASCULAR 08/21/2021 [id number] / / documented as of this encounter Advance Directives Documents on File Type Date Recorded Patient Civil Laboratory Technician Expl anation Advanced Directive Advanced Directive [...] were consensually agreed upon. Care Teams Head Greenskeeper Relationship Specialty Start Date End Date Hortencia Leal PA-C [address] [facility] [address] PCP - General Physician Administration Dean 02/08/18 documented as of this encounter
--- OUTSIDE RECORDS SUMMARY | 2023-06-27 07:55 | External Medical Summary ---
Author Name Unknown Address Unknown Organization K01:[facility]ATORY [facility] - [address] [place] [address] Laboratory Report Ordering Provider Test Date Status SHAY CH 11/15/2021 09:27:27 Final Observation Date Value Abnormality Reference (Units ) Status TSH 11/15/2021 09:27:27 0.62 0.27-4.20 (uIU/mL) Final Performing Location LAB[facility] - [address] [place] [address]
--- OUTSIDE RECORDS SUMMARY | 2023-06-27 07:55 | External Medical Summary | Summary of Care ---
Author Name Unknown Organization [facility] [place] 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 As needed 0 Active [place]-3 Fatty Acids (FISH OIL) 1000 MG Capsule [...] for Nausea. 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 Kidney stones 08/16/2021 RINA (stress urinary incontinence), male 08/16/2021 Renal cyst, acquired 08/16/2021 Encounter for antineoplastic chemotherap y 08/04/2021 Malignant neoplasm of overlapping sites of stomach 07/21/2021 Prostate cancer 12/31/2013 Other ventral hernia without mention of obstruction or gangrene 05/03/2012 documented as of this encounter (statuses as of 11/18/2021) Resolved Problems Problem Noted Date Resolved Date Elevated prostate specific antigen (PSA) 011 12/31/2013 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 I called pt and let him know. * Telephone Encounter - Lakeisha Cortez RN - 11/18/2021 10:59 AM EST Patient will Need called when script is signed to make him aware to quill picking machine operator. documented in this encounter Plan of Treatment Upcoming Encounters Date Type Specialty Care Team Description 11/29/2021 Laboratory Laboratory Enrique Castañeda [address] [place] [address] [address] 11/30/2021 Office Visit Hematology Oncology Emperatriz Blackman CRNP [address] [place] [address] [address] [address] 11/30/2021 Hem/Onc Treatment Hematology Oncology [place], Chair 10 Hem Onc Scenery [address] [place] [address] 12/14/2021 Office Visit Urology Cm Rhodes MD 27 [facility] [address] [place] [address] Health Maintenance Due Date Last Done [...] of this encounter Implants Implanted Type Area Captain Waiter/Waitress Device Identifier Shelf Expiration Date Model / Serial / Lot Cath Power Port 6fr Clearvue - [id number] Implanted:Qty : 1 on 08/10/2021 by Alexander Rodriguez MD at [place] [facility] [place] Left: Subclavian CR BARD : PERIPHERAL VASCULAR 08/21/2021 [id number] / / documented as of this encounter Visit Diagnoses Diagnosis 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 Care Teams Needle Loom Tender Relationship Specialty Start Date End Date Hortencia Leal PA-C [address] [facility] [address] PCP - General Physician Medical Pathology Teacher 02/08/18 documented as of this encounter
--- OUTSIDE RECORDS SUMMARY | 2023-06-27 07:55 | External Medical Summary | Summary of Care ---
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) Procedures [place] LEUCOVORIN CALCIUM INJECTION [place] PALONOSETRON HCL [place] FLUOROURACIL INJECTION [place] OXALIPLATIN [place] INJECTION, NIVOLUMAB Nik Melo MD 200 [facility] [place] [address] Anc Hem/Onc [address] [place] [address] Referral ID Status Reason Start Date Expiration Date V isits Requested Visits Authorized [id number] Authorized 08/19/2021 08/19/2022 99 99 Encounter Details Date Type Department Care Team Description 11/16/2021 Hem/Onc Treatment Hematology/Oncology Treatment, [address] [place] [address] [place], Chair 9 Hem On[address] [place] [address] 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 As needed 0 Active [place]-3 Fatty Acids (FISH OIL) 1000 MG [...] for Nausea. 60 Tablet 2 10/03/2021 Active Ondansetron HCl 8 MG Oral TabletIndications:M alignant neoplasm of overlapping sites of stomach (HCC) Take 1 Tablet by mouth every 8 hours as needed for Nausea. 30 Tablet 0 10/17/2021 Active Polyethylene Glycol 3350 17 GM/SCOOP Oral Powder (MiraLax) Take 17 g by mouth daily. 0 Active documented as of this encounter (statuses as of 11/16/2021) Active Problems Problem Noted Date Adenocarcinoma of esophagus metastatic t o intra-abdominal lymph node 08/17/2021 Kidney stones 08/16/2021 RINA (stress urinary incontinence), male 08/16/2021 Renal cyst, acquired 08/16/2021 Encounter for antineoplastic chemotherap y 08/04/2021 Malignant neoplasm of overlapping sites of stomach 07/21/2021 Prostate cancer 12/31/2013 Other ventral hernia without mention of obstruction or gangrene 05/03/2012 documented as of this encounter (statuses as of 11/16/2021) Resolved Problems Problem Noted Date Resolved Date Elevated prostate specific antigen (PSA) 011 12/31/2013 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 documented as of this encounter (statuses as of 11/16/2021) Immunizations Name Administration Dates Next Due COVID-19 [...] Sign Reading Time Taken Comments Blood Pressure 146/78 11/16/2021 9:05 AM EST Pulse 67 11/16/2021 9:05 AM EST Temperature 36.9 C (98.4 F) 11/16/2021 9:05 AM ES T Respiratory Rate 16 11/16/2021 9:05 AM EST Oxygen Saturation 97% 11/16/2021 9:05 AM EST Inhaled Oxygen Concentration - - Weight 78 kg (172 lb) 11/16/2021 9:05 AM EST Height - - Body Mass Index 29.52 08/10/2021 8:15 AM EDT documented in this encounter Nursing Notes * Andra Solitario RN - 11/16/2021 1:09 PM EST Functional status at today's visit: [...] was discharged in stable condition. Coverage by Naren Rodriguez LPN and Fawad Cortez RN. * Andra Solitario RN - 11/16/2021 9:16 AM EST Chair 9 Chemo agents Opdivo/Folfox Appetite good Nausea/Vomiting no Diarrhea no Constipation no Mucositis no Fatigue mild, does not interfere with function Bleeding no Infection no Rash no Numbness tingling no Pain no Radiation no ABN Labs WNL for treatment Alt in Tx: starting opdivo today Return in 2 days for pump disconnect VAD accessed without difficulty, fluids infusing. Safety and Risk for Injury Patient will remain free from injury. Ensure appropriate safety devices are available. Provide and maintain safe environment. documented in this encounter Plan of Treatment Upcoming Encounters Date Type Specialty Care Team Description 11/18/2021 Immunization/Injection Hematology Oncolog y Nurse, Med 4 [address] [place] [address] 11/29/2021 Laboratory Laboratory [place], Lab Scenery [address] [place], [place] [address] 11/30/2021 Office Visit Hematology Oncology Emperatriz Blackman CRNP [address] [place] [address] 11/30/2021 Hem/Onc Treatment Hematology Oncology [place], Chair 10 Hem Onc Scenery [address] [place] [address] 12/14/2021 Office Visit Urology Cm Rhodes MD [address] [address] Health Maintenance Due Date Last [...] of this encounter Implants Implanted Type Area Steel Chipper Device Identifier Shelf Expiration Date Model / Serial / Lot Cath Power Port 6fr Michael - [id number] Implanted:Qty : 1 on 08/10/2021 by Alexander Rodriguez MD at OR [facility] [place] Left: Subclavian CR BARD : PERIPHERAL VASCULAR 08/21/2021 [id number] / / documented as of this encounter Visit Diagnoses Diagnosis 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)- Primary 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 (HCC) Malignant neoplasm of other specified sites of stomach Encounter for antineoplastic chemotherapy documented in this encounter Administered Medications Active Administered Medications - up to 3 most recent administrations Medication Order MAR Action Action Date Dose Rate Site D5W IV solution 500 mL, Intravenous, at 50 mL/hr, CONTINUOUS, Starting on Sun11/16/21 at 1000, Until Sun11/16/21 at 1959 Start Infusion 11/16/2021 9:16 AM EST 500 mL 50 mL/hr diphenhydrAMINE (Benadryl) inj 50 mg 50 mg, IV Push, ONCE PRN Other, Hypersensitivity Reaction, Starting on Sun11/16/21 at 0902, Until Sun11/17/21 at 0901, For 24 hours EPINEPHrine 1 MG/ML inj 0.3 mg 0.3 mg, Intramuscular, ONCE PRN Other, Hypersensitivity Reaction or Anaphylaxis, Starting on Sun11/16/21 at 0902, Until Sun11/17/21 at 0901, For 24 hours hEParin 100 UNIT/ML Lock Flush inj 500 Units 500 Units (5 mL), IV Lock, PRN Other, IV Flush, Starting on Sun11/16/21 at 0902, Until Sun11/17/21 at 0901, For 24 hours, Do not flush if lock, PICC, or central line not in place; IV infusing or unable to flush. Hydrocortisone Na Succinate PF (Solu-Cortef) inj 100 mg 100 mg, IV Push, ONCE PRN Other, Hypersensitivity Reaction, Starting on Sun11/16/21 at 0902, Until Sun11/17/21 at 0901, For 24 hours sodium chloride 0.9 % flush/inj 10 mL 10 mL, IV Push, PRN Other, IV Flush, Starting on Sun11/16/21 at 0902, Until Sun11/17/21 at 0901, For 24 hours, Do not flush if lock, PICC, or central line not in place; IV infusing or unable to flush. Inactive Administered Medications - up to 3 most recent administrations Medication Order MAR Action Action Date Dose Rate Site Dexamethasone (Decadron) tab 12 mg 12 mg, Oral, ONCE, On Sun11/16/21 at 0915, For 1 dose Given 11/16/2021 9:16 AM EST 12 mg Fluorouracil (5-Fu) 4,650 mg for Home Infusion 4,650 mg (rounded from 4,656 mg = 2,400 mg/m2 1.94 m2 Treatment Plan BSA from Recorded weight), Intravenous, Administer over 46 Hours, Home Infusion Pharmacy to specify base solution and volume. Total Jsol=3439 mg/m2 for 46 hours, ONCE, 1 dose, On Sun11/16/21 at 1445 Start Infusion 11/16/2021 12:47 PM EST 4,650 mg Fluorouracil (5-Fu) inj 775 mg 775 mg (rounded from 776 mg = 400 mg/m2 1.94 m2 Treatment Plan BSA from Recorded weight), IV Push, ONCE, 1 dose, On Sun11/16/21 at 1230 Given 11/16/2021 12:42 PM EST 775 mg leucovorin calcium 800 mg in D5W 250 mL INFUSION 800 mg (rounded from 776 mg = 400 mg/m2 1.94 m2 Treatment Plan BSA from Recorded weight), IV Piggyback, at 125 mL/hr Administer over 120 Minutes, ONCE, 1 dose, On Sun11/16/21 at 1030, Before 5-FU Start Infusion 11/16/2021 10:32 AM EST 800 mg 125 mL/hr Nivolumab (Opdivo) 240 mg in NSS 100 mL ivpb 240 mg, IV Piggyback, at 200 mL/hr Administer over 30 Minutes, DO NOT SHAKE Use a sterile, non-pyrogenic, low protein binding in-line filter (0.2 micrometer-1.2 micrometer) , ONCE, 1 dose, On Sun11/16/21 at 1000 Start Infusion 11/16/2021 9:59 AM EST 240 mg 200 mL/hr Oxaliplatin (Eloxatin) 150 mg in D5W 500 mL infusion 150 mg (rounded from 164.9 mg = 85 mg/m2 1.94 m2 Treatment Plan BSA from Recorded weight), IV Piggyback, at 250 mL/hr Administer over 120 Minutes, Flush with D5W only!, ONCE, 1 dose, On Sun11/16/21 at 1030 Start Infusion 11/16/2021 10:32 AM EST 150 mg 250 mL/hr palonosetron (Aloxi) inj SOLN 0.25 mg 0.25 mg, IV Push, ONCE, On Sun11/16/21 at 0915, For 1 dose, Restricted per S antiemetic guidelines Given 11/16/2021 9:16 AM EST 0.25 mg documented in this encounter Advance Directives Documents on File Type Date Recorded Patient Hand Blocker Expl 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 Care Teams Master Control Operator Relationship Specialty Start Date End Date Hortencia Leal PA-C [address] [facility] [address] PCP - General Physician Detective Chief 02/08/18 documented as of this encounter
--- OUTSIDE RECORDS SUMMARY | 2023-06-27 07:55 | External Medical Summary | Summary of Care ---
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) Procedures [place] LEUCOVORIN CALCIUM INJECTION [place] PALONOSETRON HCL [place] FLUOROURACIL INJECTION [place] OXALIPLATIN [place] INJECTION, NIVOLUMAB Nik eMlo MD 200 [facility] [place] [address] Anc Hem/Onc [facility] [address] [place] [place] [address] Referral ID Status Reason Start Date Expiration Date V isits Requested Visits Authorized [id number] Authorized 08/19/2021 08/19/2022 99 99 Encounter Details Date Type Department Care Team Description 11/04/2021 Immunization/I njection Hematology/Oncology Treatment, [place] [address] [place] [address] Nurse, Med [address] [place] [address] 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 As needed 0 Active [place]-3 Fatty Acids (FISH OIL) 1000 MG Capsule [...] as of this encounter (statuses as of 11/04/2021) Active Problems Problem Noted Date Adenocarcinoma of esophagus metastatic t o intra-abdominal lymph node 08/17/2021 Kidney stones 08/16/2021 RINA (stress urinary incontinence), male 08/16/2021 Renal cyst, acquired 08/16/2021 Encounter for antineoplastic chemotherap y 08/04/2021 Malignant neoplasm of overlapping sites of stomach 07/21/2021 Prostate cancer 12/31/2013 Other ventral hernia without mention of obstruction or gangrene 05/03/2012 documented as of this encounter (statuses as of 11/04/2021) Resolved Problems Problem Noted Date Resolved Date Elevated prostate specific antigen (PSA) 011 12/31/2013 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 Pt arrived today for pump disconnect and port flush. His 5FU bag is empty, pump beeping dose complete. Pt reports he had no issues, denies bowel issues or N/V. Port flushed per protocol. Pt discharged in stable condition. documented in this encounter Plan of Treatment Upcoming Encounters Date Type Specialty Care Team Description 11/15/2021 Laboratory Laboratory [place], Lab Scenery [address] [place] [address] 11/16/2021 Hem/Onc Treatment Hematology Oncology [place], Chair 9 Hem Onc Scenery [address] [place] [address] 11/29/2021 Laboratory Laboratory [place], Lab Scenery [address] [place] [address] 11/30/2021 Office Visit Hematology Oncology Emperatriz Blackman CRNP [address] [place] [address] 11/30/2021 Hem/Onc Treatment Hematology Oncology [place], Chair 10 Hem Onc Scenery [address] [facility] [address] 12/14/2021 Office Visit Urology Cm Rhodes MD [address] [place] [address] Health Maintenance Due Date Last Done Comments Pneumococcal Vaccine: 65+ Years (1 of 4 - PCV13) 12/29/1951 Depression Screening, Annual for Pts 12 and Over 1957 DTaP,Tdap,and Td Vaccines (1 - Tdap) 1964 Zoster Vaccines (1 of 2) 12/29/1995 COVID-19 Vaccine (4 - Booster for Moderna series) 04/01/2022 10/01/2021, 02/14/2021, 01/17/2021 COLONOSCOPY-EVERY 3 YRS AGES 18-100 07/15/2024 07/15/2021, 07/15/2021, 04/12/2018, Additional history exists DIABETES SCREEN EVERY 3 YRS-AGE 45 AND ABOVE 11/01/2024 11/01/2021, 10/24/2021, 10/03/2021, Additional history exists Influenza Vaccine (FLU shot) Completed 06/2021, 08/21/2018, 07/14/2017, Additional history exists GARDASIL-HPV IMMUNIZATION SERIES Aged Out No longer eligible based on patient's age to complete this topic MENINGOCOCCAL (MENACTRA/MENVEO) Aged Out No longer eligible based on patient's age to complete this topic documented as of this encounter Implants Implanted Type Area Mobility Scooter Repairer Device Identifier Shelf Expiration Date Model / Serial / Lot Cath Power Port 6fr Clearvue - [id number] Implanted:Qty : 1 on 08/10/2021 by Alexander Rodriguez MD at [facility] Left: Subclavian CR BARD : PERIPHERAL VASCULAR 08/21/2021 [id number] / / documented as of this encounter [...] Lock, PRN Other, IV Flush, Starting on Sun11/04/21 at 1106, Until 11/05/21 at 1105, For 24 hours, Do not flush if lock, PICC, or central line not in place; IV infusing or unable to flush. Given 11/04/2021 11:06 AM EST 500 Units sodium chloride 0.9 % flush/inj 10 mL 10 mL, IV Push, PRN Other, IV Flush, Starting on Sun11/04/21 at 1106, Until 11/05/21 at 1105, For 24 hours, Do not flush if lock, PICC, or central line not in place; IV infusing or unable to flush. Given 11/04/2021 11:07 AM EST 10 mL documented in this encounter Advance Directives Documents on File Type Date Recorded Patient Director Style Expl 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 Care Teams Nuclear Powerplant Supervisor Relationship Specialty Start Date End Date Hortencia Leal PA-[place]et [address] [facility] [address] PCP - General Physician Rn Birthing 02/08/18 documented as of this encounter
--- OUTSIDE RECORDS SUMMARY | 2023-06-27 07:55 | External Medical Summary | Summary of Care ---
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) Procedures [place] LEUCOVORIN CALCIUM INJECTION ID PALONOSETRON HCL ID FLUOROURACIL INJECTION ID OXALIPLATIN ID INJECTION, NIVOLUMAB Nik Melo MD 200 [facility] [place] [address] Anc Hem/Onc [facility] [address] [place] [address] Referral ID Status Reason Start Date Expiration Date V isits Requested Visits Authorized [id number] Authorized 08/19/2021 08/19/2022 99 99 Encounter Details Date Type Department Care Team Description 11/18/2021 Immunization/I njection Hematology/Oncology Treatment, [place] [address] [place] [address] Nurse, Med [address] [place] [address] 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 As needed 0 Active [place]-3 Fatty Acids (FISH OIL) 1000 MG Capsule [...] as of this encounter Nursing Notes * Armida Boyd RN - 11/18/2021 10:52 AM EST Patient here for pump D/C. Some mild cold intolerance and fatigue. documented in this encounter Plan of Treatment Upcoming Encounters Date Type Specialty Care Team Description 11/29/2021 Laboratory Laboratory [place], Lab Scenery [address] [place] [address] 11/30/2021 Office Visit Hematology Oncology Emperatriz Blackman CRNP [address] [place] [address] 11/30/2021 Hem/Onc Treatment Hematology Oncology [place], Chair 10 Hem Onc Scenery [address] [place] [address] 12/14/2021 Office Visit Urology Cm Rhodes MD [address] [address] Health Maintenance Due Date Last [...] of this encounter Implants Implanted Type Area Bacteriologist Pharmaceutical Device Identifier Shelf Expiration Date Model / Serial / Lot Cath Power Port 6fr Clearvue - [id number] Implanted:Qty : 1 on 08/10/2021 by Alexander Rodriguez MD at [place] [facility] Left: Subclavian CR BARD : PERIPHERAL VASCULAR 08/21/2021 [id number] / / documented as of this encounter [...] Lock, PRN Other, IV Flush, Starting on Sun11/18/21 at 1042, Until 11/19/21 at 1041, For 24 hours, Do not flush if lock, PICC, or central line not in place; IV infusing or unable to flush. Given 11/18/2021 10:47 AM EST 500 Units sodium chloride 0.9 % flush/inj 10 mL 10 mL, IV Push, PRN Other, IV Flush, Starting on Sun11/18/21 at 1042, Until 11/19/21 at 1041, For 24 hours, Do not flush if lock, PICC, or central line not in place; IV infusing or unable to flush. Given 11/18/2021 10:47 AM EST 10 mL documented in this encounter Advance Directives Documents on File Type Date Recorded Patient Mixing Machine Operator Expl anation Advanced Directive Advanced [...] and were consensually agreed upon. Care Teams Fiscal Economist Relationship Specialty Start Date End Date Hortencia Leal PA-C [address] [facility] [address] PCP - General Physician Jewelry Maker 02/08/18 documented as of this encounter
--- OUTSIDE RECORDS SUMMARY | 2023-06-27 07:55 | External Medical Summary | Summary of Care ---
Author Name Unknown Organization [place] [address] Care Team Providers Care Directory Assistance Operator Name Role Phone Hortencia Leal PA-C Primary Care Provid er Encounter Details Date Type Department Care Team Description 11/27/2021 Orders Only Hematology/Oncology [facility] 200 [place] [address] Nik Melo MD 200 [place] [address] Allergies Active Allergy Reactions Severity Noted Date Comments Amlodipine 11/02/2020 dizziness Codeine Sulfate Other (Please comment) 10/26/19 11 hyperactivity Hydrochlorothiazide 11/02/2020 hypercalcemia documented as of this encounter (statuses as of 11/27/2021) Medications Medication Sig Dispensed Refills Start Date [...] times a day. As needed 0 Active [place]-3 Fatty Acids (FISH OIL) 1000 MG Capsule [...] as of this encounter (statuses as of 11/27/2021) Active Problems Problem Noted Date Adenocarcinoma of esophagus metastatic t o intra-abdominal lymph node 08/17/2021 Kidney stones 08/16/2021 RINA (stress urinary incontinence), male 08/16/2021 Renal cyst, acquired 08/16/2021 Encounter for antineoplastic chemotherap y 08/04/2021 Malignant neoplasm of overlapping sites of stomach 07/21/2021 Prostate cancer 12/31/2013 Other ventral hernia without mention of obstruction or gangrene 05/03/2012 documented as of this encounter (statuses as of 11/27/2021) Resolved Problems Problem Noted Date Resolved Date Elevated prostate specific antigen (PSA) 011 12/31/2013 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 documented as of this encounter (statuses as of 11/27/2021) Immunizations Name Administration Dates Next Due COVID-19 [...] Specialty Care Team Description 11/29/2021 Laboratory Laboratory [place], Lab Scenery 200 [facility] [place] [address] 11/30/2021 Office Visit Hematology Oncology Emperatriz Blackman CRNP 200 [facility] [place] [address] 11/30/2021 Hem/Onc Treatment Hematology Oncology [place], Chair 10 Hem Onc Scenery [address] [place] [address] 12/14/2021 Office Visit Urology Cm Rhodes MD [address] [place] [address] [place] [address] Health Maintenance Due Date [...] of this encounter Implants Implanted Type Area Vp Global [employer] Device Identifier Shelf Expiration Date Model / Serial / Lot Cath Power Port 6fr Clearvue - [id number] Implanted:Qty : 1 on 08/10/2021 by Alexander Rodriguez MD [place] [facility] [place]: Subclavian CR BARD : PERIPHERAL VASCULAR 08/21/2021 [id number] / / documented as of this encounter Advance Directives Documents on File Type Date Recorded Patient Rubber Compounder Expl 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 Care Teams Directory Assistance Operator Relationship Specialty Start Date End Date Hortencia Leal PA-C [facility] [place] [address] PCP - General Physician Spanner Operator 02/08/18 documented as of this encounter
--- OUTSIDE RECORDS SUMMARY | 2023-06-27 07:55 | External Medical Summary ---
Author Name Unknown Address Unknown Organization K09:[facility] [place] [address] Laboratory Report Ordering Provider Test Date Status SHAY CH 11/15/2021 09:27:27 Final Observation Date Value Abnormality Reference (Units ) Status BUN 11/15/2021 09:27:27 18 6-20 (mg/dL) Final Creatinine 11/15/2021 09:27:27 1.6 Above high normal 0.6-1.2 (mg/dL) Final Glomerular filtration rate/1.73 sq M.predicted [Volume Rate/Area] in Serum, Plasma or Blood by Creatinine-based formula (CKD-EPI) 11/15/2021 09:27:27 45 Below low normal >=60 (mL/min) Final Performing Location [facility] [place] [address]
--- OUTSIDE RECORDS SUMMARY | 2023-06-27 07:55 | External Medical Summary | Summary of Care ---
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 As needed 0 Active [place]-3 Fatty Acids (FISH OIL) 1000 [...] as of this encounter (statuses as of 11/02/2021) Active Problems Problem Noted Date Adenocarcinoma of esophagus metastatic t o intra-abdominal lymph node 08/17/2021 Kidney stones 08/16/2021 RINA (stress urinary incontinence), male 08/16/2021 Renal cyst, acquired 08/16/2021 Encounter for antineoplastic chemotherap y 08/04/2021 Malignant neoplasm of overlapping sites of stomach 07/21/2021 Prostate cancer 12/31/2013 Other ventral hernia without mention of obstruction or gangrene 05/03/2012 documented as of this encounter (statuses as of 11/02/2021) Resolved Problems Problem Noted Date Resolved Date Elevated prostate specific antigen (PSA) 011 12/31/2013 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 documented as of this encounter (statuses as of 11/02/2021) Immunizations Name Administration Dates Next Due COVID-19 mRNA, LNP-s, No Pre serve, 2-Dose Series (Moderna) 02/14/2021,01/17/2021 Influenza Virus Vaccine, Unspecified Formulation 07/30/2021 documented as of this [...] Sign Reading Time Taken Comments Blood Pressure 156/68 11/02/2021 8:26 AM EST Pulse 71 11/02/2021 8:26 AM EST Temperature 36.2 C (97.1 F) 11/02/2021 8:26 AM ES T Respiratory Rate 18 11/02/2021 8:26 AM EST Oxygen Saturation 98% 11/02/2021 8:26 AM EST Inhaled Oxygen Concentration - - Weight 78.6 kg (173 lb 3.2 oz) 11/02/2021 8:26 A M EST Height - - Body Mass Index 29.73 08/10/2021 8:15 AM EDT documented in this encounter Progress Notes * Nik Melo MD - 11/02/2021 8:36 AM EST Outpatient Consult Note Data Source: Patient, Epic record. Data Source: Patient, Epic record. 11/02/2021 8:36 AM Heath Austin [id number] 75 year old Patient Encounter: HEMATOLOGY/ONCOLOGY [facility] Cancer Diagnosis: Metastatic esophageal cancer Current Treatment: FOLFOX Previous Treatment: None Oncologic History : 75-year-old [...] radical prostatectomy: Adenocarcinoma, moderately poorly differentiated Overall Camden score 3+4=7 High grade prostatic intraepithelial neoplasia [...] 0.6 cm HISTOLOGIC TYPE: Adenocarcinoma HISTOLOGIC GRADE ([place]): Primary pattern is: Grade 3: single acini [...] 2.1 cm HISTOLOGIC TYPE: Adenocarcinoma HISTOLOGIC GRADE ([place]): Primary pattern is: Grade 3: single acini of variable size and separation, cribriform and papillarypatterns Secondary pattern is: Grade 4: irregular masses of acini and fused epithelium, can show clear cells Camden Score (primary + secondary) = 7: Moderately [...] Final Interpretation: Benign mesothelial cells. Interval History: He is feeling better and stronger without any new symptoms complain. Swallowing is better and no more pain or discomfort feeling in the stomach. Any nausea vomiting. Denies any headache, dizziness, blurred vision, chest pain, palpitation, abdominal pain, bleeding, bruising, change in the bowel habits. LABS/IMAGING: Blood test were done yesterday showed WBC count 6.72, hemoglobin 10.8 and platelet count 186. Creatinine is 1.5 and the rest the electrolytes and LFTs are within normal limit. Follow-up PET scan done on 10/26/2021 which shows excellent response with interval resolution of the metabolic activity within circumferentially wall thickening of the distal esophagus; gastric fundus; and lesser gastric curvature, interval resolution of the previously metabolically active gastrohep atic ligament lymphadenopathy. REVIEW OF SYSTEMS: General: No Fever, chills, [...] mouth 2 times a day. As needed [place]-3 Fatty Acids (FISH OIL) 1000 [...] as needed for Nausea. 30 Tablet 0 Polyethylene Glycol 3350 17 GM/SCOOP Oral Powder (MiraLax) Take 17 g by mouth daily. Dexamethasone 4 MG Oral Tablet (Decadron) 12 mg (3 tab) 12 and 6 hours before chemotherapy (Patient not taking: Reported on 08/10/2021) 40 Tab 0 traMADol HCl 50 MG Oral Tablet (Ultram) Take 1 Tab by mouth every 6 hours as needed for Pain, Severe. (Patient not taking: Reported on 08/16/2021) 10 Tab 0 No current facility-administered medications for this visit. Facility-Administered Medications Ordered in Other Visits Medication Dose Route Frequency Provider Last Rate Last Admin Fluorouracil (5-Fu) 4,650 mg for Home Infusion 2,400 mg/m2 (Treatment Plan Recorded) Intravenous Once Nik Melo MD Social History Tobacco Use Smoking status: Never Smoker Smokeless tobacco: Never Used Vaping Use Vaping Use: Never used Substance Use Topics Alcohol use: No Drug use: No Review of patient's allergies indicates: Allergen Reactions Amlodipine dizziness Codeine Sulfate Other (Please comment) hyperactivity Hctz [Hydrochlorothiazide] hypercalcemia PHYSICAL EXAMINATION: General Appearance: Healthy appearing patient in no acute distress BP 156/68 (BP Site: Left Arm, BP Position: Sitting, BP Cuff Size: Regular) | Pulse 71 | Temp 36.2 C (97.1 F) (Infrared ) | Resp 18 | Wt 78.6 kg (173 lb 3.2 oz) | SpO2 98% | BMI 29.73 kg/m | BSA1.88 m Vitals reviewed. HEENT: No oral or [...] with the adenocarcinoma her 2 Kristen is negative. Currently patient is receiving FOLFOX with overall good tolerance and excellent response on the follow-up PET scan. Clinically he is feeling better and stronger. PDL1 expression was 5%. Will add nivolumab 240 mg on every 2 weeks basis with FOLFOX chemotherapy. Discussed with patient in detail about the diagnosis and prognosis and reviewed all the available blood tests and PET scan finding with him. I also personally reviewed the radiology images of the PETscan with him. Also discussed with him about the benefit, risk, side effect toxicity of nivolumab. After detailed discussion he agreed to proceed with treatment and signed the consent form. PLAN: As above. Patient will receive FOLFOX chemotherapy only starting today. Nivolumab will be added to the FOLFOX chemotherapy from next cycle. He will return to clinic for follow-up in 4 weeks with CBC,CMP and TSH. The patient voiced understanding of [...] Nursing Notes * Ajit Ferguson CMA - 11/02/2021 8:27 AM EST Patient identifed by name and [...] it for you? ALREADY ACTIVE Filed Vitals: 11/02/21 0826 BP: 156/68 Pulse: 71 Resp: 18 Temp: 36.2 C (97.1 F) TempSrc: Infrared SpO2: 98% Weight: 78.6 kg (173 lb 3.2 oz) documented in this encounter Plan of Treatment Upcoming Encounters Date Type Specialty Care Team Description 12/14/2021 Office Visit Urology Cm Rhodes MD [address] [place] [address] Health Maintenance Due Date Last Done Comments Pneumococcal Vaccine: 65+ Years (1 of 4 - PCV13) 12/29/1951 Depression Screening, Annual for Pts 12 and Over 1957 DTaP,Tdap,and Td Vaccines (1 - Tdap) 1964 Zoster Vaccines (1 of 2) 12/29/1995 COVID-19 Vaccine (3 - Moderna risk 4-dose series) 03/14/2021 02/14/2021, 01/17/2021 COLONOSCOPY-EVERY 3 YRS AGES 18-100 [...] of this encounter Implants Implanted Type Area Designer Writer Device Identifier Shelf Expiration Date Model / Serial / Lot Cath Power Port 6fr Clearvue - [id number] Implanted:Qty : 1 on 08/10/2021 by Alexander Rdoriguez MD at [facility] Left: Subclavian CR BARD : PERIPHERAL VASCULAR 08/21/2021 [id number] / / documented as of this encounter Visit Diagnoses Diagnosis 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 Care Teams Environmental Services Floor Tech Relationship Specialty Start Date End Date Hortencia Leal PA-C [address] [facility] [place] [address] PCP - General Physician Advanced Analytics Associate 02/08/18 documented as of this encounter"
--- OUTSIDE RECORDS SUMMARY | 2023-06-27 07:55 | External Medical Summary | Summary of Care ---
Author Name Unknown Organization [place] [address] Care Team Providers Care Auto Polisher Name Role Phone Hortencia Leal PA-C Primary Care Provid er Reason for Visit * Reason Comments Outpatient Testing Encounter Details Date Type Department Care Team Description 11/15/2021 Laboratory Laboratory [facility] [place] [address] [place] [address] [facility] 200 [facility] [place] [address] Malignant neoplasm of overlapping sites of stomach (HCC); Encounter for long-term (current) use of medications Allergies Active Allergy Reactions Severity Noted Date Comments Amlodipine 11/02/2020 dizziness Codeine Sulfate Other (Please comment) 10/26/19 11 hyperactivity Hydrochlorothiazide 11/02/2020 hypercalcemia documented as of this encounter (statuses as of 11/15/2021) Medications Medication Sig Dispensed Refills Start Date [...] times a day. As needed 0 Active [place]-3 Fatty Acids (FISH OIL) 1000 MG Capsule [...] as of this encounter (statuses as of 11/15/2021) Active Problems Problem Noted Date Adenocarcinoma of esophagus metastatic t o intra-abdominal lymph node 08/17/2021 Kidney stones 08/16/2021 RINA (stress urinary incontinence), male 08/16/2021 Renal cyst, acquired 08/16/2021 Encounter for antineoplastic chemotherap y 08/04/2021 Malignant neoplasm of overlapping sites of stomach 07/21/2021 Prostate cancer 12/31/2013 Other ventral hernia without mention of obstruction or gangrene 05/03/2012 documented as of this encounter (statuses as of 11/15/2021) Resolved Problems Problem Noted Date Resolved Date Elevated prostate specific antigen (PSA) 011 12/31/2013 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 documented as of this encounter (statuses as of 11/15/2021) Immunizations Name Administration Dates Next Due COVID-19 [...] Encounters Date Type Specialty Care Team Description 11/16/2021 Hem/Onc Treatment Hematology Oncology Maddy, Chair 9 Hem Onc Scenery [address] [place] [address] 11/29/2021 Laboratory Laboratory Maddy Lab Scenery [address] [place] [address] 11/30/2021 Office Visit Hematology Oncology Emperatriz Blackman CRNP [address] [place] [address] 11/30/2021 Hem/Onc Treatment Hematology Oncology Maddy, Chair 10 Hem Onc Scenery [address] [place] [address] 12/14/2021 Office Visit Urology Cm Rhodes MD [address] [address] [place] [address] Pending Results Name Type Priority Associated Diagnoses Date /Time COMPREHENSIVE METABOLIC PANEL Lab STAT Malignant neoplasm of overlapping sites of stomach (HCC) 11/15/2021 9:27 AM EST TSH WITH FREE T4 IF INDICATED Lab STAT Malignant neoplasm of overlapping sites of stomach (HCC) Encounter for long-term (current) use of medications 11/15/2021 9:27 AM EST Health Maintenance Due Date Last [...] of this encounter Implants Implanted Type Area Radio Television Technical Director Device Identifier Shelf Expiration Date Model / Serial / Lot Cath Power Port 6fr Clearvue - [id number] Implanted:Qty : 1 on 08/10/2021 by Alexander Rodriguez MD at OR [facility] Left: Subclavian CR BARD : PERIPHERAL VASCULAR 08/21/2021 [id number] / / documented as of this encounter Procedures Procedure Name Priority Date/Time Associated Diagnosis Comments DIFFERENTIAL, AUTOMATED STAT 11/15/2021 9:27 AM EST Malignant neoplasm of overlapping sites of stomach (HCC) CBC WITH WBC DIFFERENTIAL STAT 11/15/2021 9:27 AM EST Malignant neoplasm of overlapping sites of stomach (HCC) CBC STAT 11/15/2021 9:27 AM EST Malignant neoplasm of overlapping sites of stomach (HCC) documented in this encounter Results * DIFFERENTIAL, AUTOMATED (11/15/2021 9:27 AM EST) WBC 5.08 4.00 - 10.80 K/uL [facility] 56- Neutrophils % 63.4 40.0 - 75.0 % [facility] 56- Lymphocytes % 23.0 18.0 - 42.0 % [facility] 56- Monocytes % 9.1 1.0 - 11.0 % [facility] 56- Eosinophils % 4.1 0.0 - 6.0 % [facility] 56- Basophils % 0.4 0.0 - 2.0 % [facility] 56- Absolute Neutrophils 3.22 1.80 - 7.70 K/uL [facility] 56 Absolute Lymphocytes 1.17 1.00 - 4.80 K/ul [facility] - Absolute Monocytes 0.46 0.00 - 1.10 K/uL [facility] - Absolute Eosinophils 0.21 0.00 - 0.70 K/uL [facility] 56 Absolute Basophils 0.02 0.00 - 0.20 K/uL [facility] 56- Specimen Blood - Venous blood specime n (specimen) [facility] [address] [place], [place] [phone] * CBC (11/15/2021 9:27 AM EST) WBC 5.08 4.00 - 10.80 K/uL [facility] 56- RBC 3.45(L) 4.50 - 5.25 M/uL [facility] 56- HGB 10.2(L) 14.0 - 16.8 g/dL [facility] 56- HCT 32.7(L) 40.0 - 48.4 % [facility] 56- MCV 94.8 82.0 - 99.5 fL [facility] 56- MCH 29.6 27.0 - 34.0 pg [facility] 56- MCHC 31.2(L) 32.0 - 36.0 g/dL [facility] RDW 17.6(H) 11.5 - 15.5 % [facility] 56 Plt 115(L) 140 - 400 K/uL [facility] - MPV 8.8 6.6 - 11.1 fL [facility] Specimen Blood - Venous blood specime n (specimen) Performing Organization Address City/State/[facility] Co de Phone Number [facility] [place] [address] [place] [phone] documented in this encounter Visit Diagnoses Diagnosis Malignant neoplasm of overlapping sites of stomach (HCC) Malignant neoplasm of other specified sites of stomach Encounter for long-term (current) use of medications Encounter for long-term (current) use of other medications documented in this encounter Advance Directives Documents on File Type Date Recorded Patient Radio Frequency Design Engineer Expl 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 Care Teams Auto Polisher Relationship Specialty Start Date End Date Hortencia Leal PA-C [address] [facility] [address] PCP - General Physician Electronic Technologist 02/08/18 documented as of this encounter
--- OUTSIDE RECORDS SUMMARY | 2023-06-27 07:55 | External Medical Summary ---
Author Name Unknown Address Unknown Organization [id number]:[facility] [place] [address] Laboratory Report Ordering Provider Test Date Status SHAY CH 11/15/2021 09:27:27 Final Observation Date Value Abnormality Reference (Units ) Status WBC, Total 11/15/2021 09:27:27 5.08 4.00-10.8 0 (K/uL) Final RBC 11/15/2021 09:27:27 3.45 Below low normal 4.5 0-5.25 (M/uL) Final Hemoglobin 11/15/2021 09:27:27 10.2 Below low normal 14 .0-16.8 (g/dL) Final HCT 11/15/2021 09:27:27 32.7 Below low normal 40. 0-48.4 (%) Final MCV 11/15/2021 09:27:27 94.8 82.0-99.5 (fL) Final MCH 11/15/2021 09:27:27 29.6 27.0-34.0 (pg) Final MCHC 11/15/2021 09:27:27 31.2 Below low normal 32. 0-36.0 (g/dL) Final RDW 11/15/2021 09:27:27 17.6 Above high normal 11 .5-15.5 (%) Final Platelets 11/15/2021 09:27:27 115 Below low normal 140 -400 (K/uL) Final MPV 11/15/2021 09:27:27 8.8 6.6-11.1 ( fL) Final Performing Location [facility] [place] [address]
--- OUTSIDE RECORDS SUMMARY | 2023-06-27 07:55 | External Medical Summary | Summary of Care ---
Author Name Unknown Organization [place] [address] Care Team Providers Care Drum Operator Name Role Phone Hortencia Leal PA-C Primary Care Provid er Encounter Details Date Type Department Care Team Description 11/13/2021 Orders Only Hematology/Oncology [facility] 200 [place] [address] Nik Melo MD 200 [facility] [place] [address] Allergies Active Allergy Reactions Severity Noted Date Comments Amlodipine 11/02/2020 dizziness Codeine Sulfate Other (Please comment) 10/26/19 11 hyperactivity Hydrochlorothiazide 11/02/2020 hypercalcemia documented as of this encounter (statuses as of 11/13/2021) Medications Medication Sig Dispensed Refills Start Date [...] times a day. As needed 0 Active [place]-3 Fatty Acids (FISH OIL) 1000 MG Capsule [...] as of this encounter (statuses as of 11/13/2021) Active Problems Problem Noted Date Adenocarcinoma of esophagus metastatic t o intra-abdominal lymph node 08/17/2021 Kidney stones 08/16/2021 RINA (stress urinary incontinence), male 08/16/2021 Renal cyst, acquired 08/16/2021 Encounter for antineoplastic chemotherap y 08/04/2021 Malignant neoplasm of overlapping sites of stomach 07/21/2021 Prostate cancer 12/31/2013 Other ventral hernia without mention of obstruction or gangrene 05/03/2012 documented as of this encounter (statuses as of 11/13/2021) Resolved Problems Problem Noted Date Resolved Date Elevated prostate specific antigen (PSA) 011 12/31/2013 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 documented as of this encounter (statuses as of 11/13/2021) Immunizations Name Administration Dates Next Due COVID-19 [...] Maddy, Lab Scenery [address] [place] [address] 11/16/2021 Hem/Onc Treatment Hematology Oncology Emery, Chair 9 Hem Onc Scenery [address] [place] [address] 11/29/2021 Laboratory Laboratory M[facility] Lab Scenery [address] [place] [address] 11/30/2021 Office Visit Hematology Oncology Emperatriz Blackman CRNP [address] [place] [address] 11/30/2021 Hem/Onc Treatment Hematology Oncology Emery, Chair 10 Hem Onc Scenery [address] [place] [address] 12/14/2021 Office Visit Urology Cm Rhodes MD [address] [facility] [address] [place] [address] Health Maintenance Due [...] of this encounter Implants Implanted Type Area Greeting Card Editor Device Identifier Shelf Expiration Date Model / Serial / Lot Cath Power Port 6fr Clearvue - [id number] Implanted:Qty : 1 on 08/10/2021 by Alexander Rodriguez MD at [place] [facility] Left: Subclavian CR BARD : PERIPHERAL VASCULAR 08/21/2021 [id number] / / documented as of this encounter Advance Directives Documents on File Type Date Recorded Patient Physical Therapy Assistant Expl 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 Care Teams Drum Operator Relationship Specialty Start Date End Date Hortencia Leal PA-C [address] [place] [address] PCP - General Physician Electrode Turner And Finisher 02/08/18 documented as of this encounter
--- OUTSIDE RECORDS SUMMARY | 2023-06-27 07:55 | External Medical Summary ---
Author Name Unknown Address Unknown Organization [id number]:[facility] [place] [address] Laboratory Report Ordering Provider Test Date Status SHAY CH 11/15/2021 09:27:27 Final Observation Date Value Abnormality Reference (Units ) Status SYNC LEUKOCYTES IN BLOOD BY AUTOMATED COUNT 11/15/2021 09:27:27 5.08 4.00-10.80 (K/uL) Final Segs 11/15/2021 09:27:27 63.4 40.0-75.0 (%) Final Lymphs % 11/15/2021 09:27:27 23.0 18.0-42.0 (%) Final Monos 11/15/2021 09:27:27 9.1 1.0-11.0 (%) Final Eosinophils 11/15/2021 09:27:27 4.1 0.0-6.0 (%) Final Basos 11/15/2021 09:27:27 0.4 0.0-2.0 (%) Final Absolute Segs 11/15/2021 09:27:27 3.22 1.80-7.70 (K/uL) Final Lymphs, absolute 11/15/2021 09:27:27 1.17 1.00-4.80 (K/ul) Final Monos, Abs 11/15/2021 09:27:27 0.46 0.00-1.10 (K/uL) Final Eos, Abs 11/15/2021 09:27:27 0.21 0.00-0.70 (K/uL) Final Basos, Abs 11/15/2021 09:27:27 0.02 0.00-0.20 (K/uL) Final Performing Location [facility] [place] [address]
--- OUTSIDE RECORDS SUMMARY | 2023-06-27 07:55 | External Medical Summary | Summary of Care ---
Author Name Unknown Organization [facility] Address [place] [address] Care Team Providers Care Outboard Motor Assembler Name Role Phone Hortencia Leal PA-C Primary Care Provid er Reason for Visit * Reason Onset Date Comments Medication Refill 11/18/2021 Encounter Details Date Type Department Care Team Description 11/18/2021 Refill Hematology/Oncology Treatment, [place] [address] [place] [address] Emperatriz Blackman CRNP [address] [place] [address] Malignant neoplasm of overlapping sites of stomach [...] times a day. As needed 0 Active [place]-3 Fatty Acids (FISH OIL) 1000 MG Capsule [...] is signed to make him aware to fish bait picker. documented in this encounter Plan of Treatment Upcoming Encounters Date Type Specialty Care Team Description 11/29/2021 Laboratory Laboratory [facility] [address] [place] [address] 11/30/2021 Office Visit Hematology Oncology Emperatriz Blackman CRNP [address] [place] [address] 11/30/2021 Hem/Onc Treatment Hematology Oncology [place], Chair 10 Hem Onc Scenery [address] [place] [address] 12/14/2021 Office Visit Urology Cm Rhodes MD 27 [facility] [address] [place] [address] Health Maintenance Due Date Last Done [...] of this encounter Implants Implanted Type Area Bread Oven Operator Device Identifier Shelf Expiration Date Model / Serial / Lot Cath Power Port 6fr Clearvue - [id number] Implanted:Qty : 1 on 08/10/2021 by Alexander Rodriguez MD [place] [facility] [place]: Subclavian CR BARD : PERIPHERAL VASCULAR 08/21/2021 [id number] / / documented as of this encounter Visit Diagnoses Diagnosis Malignant neoplasm of overlapping sites of stomach (HCC) Malignant neoplasm of other specified sites of stomach documented in this encounter Advance Directives Documents on File Type Date Recorded Patient Derivatives Trader Expl 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 Care Teams Outboard Motor Assembler Relationship Specialty Start Date End Date Hortencia Leal PA-C [address] [facility] [address] PCP - General Physician Check Scaler 02/08/18 documented as of this encounter
--- OUTSIDE RECORDS SUMMARY | 2023-06-27 07:55 | External Medical Summary | Summary of Care ---
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) Procedures AR LEUCOVORIN CALCIUM INJECTION AR PALONOSETRON HCL AR FLUOROURACIL INJECTION AR OXALIPLATIN Nik Melo MD 200 [facility] [place] [address] Anc Hem/Onc [address] [place] [address] Referral ID Status Reason Start Date Expiration Date V isits Requested Visits Authorized [id number] Pending Review 08/19/2021 08/19/2022 99 99 Encounter Details Date Type Department Care Team Description 11/02/2021 Hem/Onc Treatment Hematology/Oncology Treatment, [place] 200 [facility] [place] [address] Maddy, Chair 1 Hem Onc [address] [place] [address] 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 As needed 0 Active [place]-3 Fatty Acids (FISH OIL) 1000 MG Capsule [...] Time Taken Comments Blood Pressure 156/68 11/02/2021 9:44 AM EST Pulse 71 11/02/2021 9:44 AM EST Temperature - - Respiratory Rate - - Oxygen Saturation - - Inhaled Oxygen Concentration - - Weight - - Height - - Body Mass Index - - documented in this encounter Nursing Notes * Danielle Calvert RN - 11/02/2021 1:54 PM EST Pt completed treatment without issues. VAD flushed yielding positive blood return; Vitaline pump connected. 5FU infusion initiated. Goals: Pt will remain free from injury. Possible barriers to meeting goals: ambulation with IV pole Stability of the patient: Moderately stable - low risk of patient condition declining or worsening Summary regarding today's goals: Met: Pt remained free from injury during treatment today. Discharged in stable condition. BR assisted. * Danielle Calvert RN - 11/02/2021 11:02 AM EST Functional status at today's visit: [...] symptoms or adverse side effects during treatment. * Danielle Calvert RN - 11/02/2021 9:45 AM EST NANCY, chair 1. Pt seen by Dr. Melo; refer to OV notes. Labs okay for treatment. Safety and Risk for Injury Patient will remain free from injury. Ensure appropriate safety devices are available. Provide and maintain safe environment. documented in this encounter Plan of Treatment Upcoming Encounters Date Type Specialty Care Team Description 11/04/2021 Immunization/Injection Hematology Oncolog y Nurse, Med [address] [place] [address] 11/15/2021 Laboratory Laboratory [place], Lab Scenery [address] [place] [address] 11/16/2021 Hem/Onc Treatment Hematology Oncology [place], Chair 9 Hem Onc Scenery [address] [place] [address] 11/29/2021 Laboratory Laboratory [place], Lab Scenery [address] [place] [address] 11/30/2021 Office Visit Hematology Oncology Emperatriz Blackman CRNP [address] [place] [address] 11/30/2021 Hem/Onc Treatment Hematology Oncology [place], Chair 10 Hem Onc Scenery [address] [place] [address] 12/14/2021 Office Visit Urology Cm Rhodes MD [address] [place] [address] Health Maintenance Due Date Last Done [...] of this encounter Implants Implanted Type Area Passenger Relations Representative Device Identifier Shelf Expiration Date Model / Serial / Lot Cath Power Port 6fr Clearvue - [id number] Implanted:Qty : 1 on 08/10/2021 [place] [facility] [place] Subclavian CR BARD : PERIPHERAL VASCULAR 08/21/2021 [id number] / / documented as of this encounter [...] Intravenous, at 50 mL/hr, CONTINUOUS, Starting on Sun11/02/21 at 1615, Until Sun11/03/21 at 0214 Start Infusion 11/02/2021 9:50 AM EST 500 mL 50 mL/hr diphenhydrAMINE (Benadryl) inj 50 mg 50 mg, IV Push, ONCE PRN Other, Hypersensitivity Reaction, Starting on Sun11/02/21 at 0943, Until Sun11/03/21 at 0942, For 24 hours EPINEPHrine 1 MG/ML inj 0.3 mg 0.3 mg, Intramuscular, ONCE PRN Other, Hypersensitivity Reaction or Anaphylaxis, Starting on Sun11/02/21 at 0943, Until Sun11/03/21 at 0942, For 24 hours hEParin 100 UNIT/ML Lock Flush inj 500 Units 500 Units (5 mL), IV Lock, PRN Other, IV Flush, Starting on Sun11/02/21 at 0943, Until Sun11/03/21 at 0942, For 24 hours, Do not flush if lock, PICC, or central line not in place; IV infusing or unable to flush. Hydrocortisone Na Succinate PF (Solu-Cortef) inj 100 mg 100 mg, IV Push, ONCE PRN Other, Hypersensitivity Reaction, Starting on Sun11/02/21 at 0943, Until Sun11/03/21 at 0942, For 24 hours sodium chloride 0.9 % flush/inj 10 mL 10 mL, IV Push, PRN Other, IV Flush, Starting on Sun11/02/21 at 0943, Until Sun11/03/21 at 0942, For 24 hours, Do not flush if lock, PICC, or central line not in place; IV infusing or unable to flush. Inactive Administered Medications - up to 3 most recent administrations Medication Order MAR Action Action Date Dose Rate Site Dexamethasone (Decadron) tab 12 mg 12 mg, Oral, ONCE, On Sun11/02/21 at 1615, For 1 dose Given 11/02/2021 10:09 AM EST 12 mg Fluorouracil (5-Fu) 4,650 mg for Home Infusion 4,650 mg (rounded from 4,656 mg = 2,400 mg/m2 1.94 m2 Treatment Plan BSA from Recorded weight), Intravenous, Administer over 46 Hours, Home Infusion Pharmacy to specify base solution and volume. Total Clhl=8542 mg/m2 for 46 hours, ONCE, 1 dose, On Sun11/02/21 at 2100 Start Infusion 11/02/2021 12:58 PM EST 4,650 mg Fluorouracil (5-Fu) inj 775 mg 775 mg (rounded from 776 mg = 400 mg/m2 1.94 m2 Treatment Plan BSA from Recorded weight), IV Push, ONCE, 1 dose, On Sun11/02/21 at 2045 Given 11/02/2021 12:59 PM EST 775 mg leucovorin calcium 800 mg in D5W 250 mL INFUSION 800 mg (rounded from 776 mg = 400 mg/m2 1.94 m2 Treatment Plan BSA from Recorded weight), IV Piggyback, at 125 mL/hr Administer over 120 Minutes, ONCE, 1 dose, On Sun11/02/21 at 1845, Before 5-FU Start Infusion 11/02/2021 10:51 AM EST 800 mg 125 mL/hr Oxaliplatin (Eloxatin) 150 mg in D5W 500 mL infusion 150 mg (rounded from 164.9 mg = 85 mg/m2 1.94 m2 Treatment Plan BSA from Recorded weight), IV Piggyback, at 250 mL/hr Administer over 120 Minutes, Flush with D5W only!, ONCE, 1 dose, On Sun11/02/21 at 1645 Start Infusion 11/02/2021 10:52 AM EST 150 mg 250 mL/hr palonosetron (Aloxi) inj SOLN 0.25 mg 0.25 mg, IV Push, ONCE, On Sun11/02/21 at 1615, For 1 dose, Restricted per [facility] antiemetic guidelines Given 11/02/2021 10:09 AM EST 0.25 mg documented in this encounter Advance Directives Documents on File Type Date Recorded Patient Contact Center Professional Expl anation Advanced Directive Advanced Directive Advanced [...] were consensually agreed upon. Care Teams Interior Paneler Relationship Specialty Start Date End Date Hortencia Leal PA-C [address] [place] [address] PCP - General Physician Owner Spa Director 02/08/18 documented as of this encounter
--- OUTSIDE RECORDS SUMMARY | 2023-06-27 07:56 | External Medical Summary | Summary of Care ---
Author Name Unknown Organization [place] [address] Care Team Providers Care Used Car Lot Porter Name Role Phone Hortencia Leal PA-C Primary Care Provid er Reason for Visit * Reason Onset Date Comments Appointment 10/27/2021 New referral juan m martin the [place]. Referral# [id number] Encounter Details Date Type Department Care Team Description 10/27/2021 [facility] [place] [facility] [address] Nik Melo MD 200 [place] [address] Appointment (New referral from the [place]. Re... Allergies Active Allergy Reactions Severity Noted Date Comments Amlodipine 11/02/2020 dizziness Codeine Sulfate Other (Please comment) 10/26/19 11 hyperactivity Hydrochlorothiazide 11/02/2020 hypercalcemia documented as of this encounter (statuses as of 10/28/2021) Medications Medication Sig Dispensed Refills Start Date [...] times a day. As needed 0 Active [place]-3 Fatty Acids (FISH OIL) 1000 MG [...] as of this encounter (statuses as of 10/28/2021) Active Problems Problem Noted Date Adenocarcinoma of esophagus metastatic t o intra-abdominal lymph node 08/17/2021 Kidney stones 08/16/2021 RINA (stress urinary incontinence), male 08/16/2021 Renal cyst, acquired 08/16/2021 Encounter for antineoplastic chemotherap y 08/04/2021 Malignant neoplasm of overlapping sites of stomach 07/21/2021 Prostate cancer 12/31/2013 Other ventral hernia without mention of obstruction or gangrene 05/03/2012 documented as of this encounter (statuses as of 10/28/2021) Resolved Problems Problem Noted Date Resolved Date Elevated prostate specific antigen (PSA) 011 12/31/2013 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 Patient already seen here by Dr. Melo. [facility] REFERRAL#: [id number] documented in this encounter Plan of Treatment Upcoming Encounters Date Type Specialty Care Team Description 11/01/2021 Laboratory Laboratory [facility] [address] [place] [address] 11/02/2021 Office Visit Hematology Oncology [facility] 200 [facility] [address] 11/02/2021 Hem/Onc Treatment Hematology Oncology [place], Chair 1 Hem Onc [address] [place] [address] 12/14/2021 Office Visit Urology Cm Rhodes MD [address] [place] [address] [place] [address] Health Maintenance Due Date Last [...] SCREEN EVERY 3 YRS-AGE 45 AND ABOVE 10/24/2024 10/24/2021, 10/03/2021, 09/13/2021, Additional history exists Influenza Vaccine (FLU shot) Completed 06/2021, 08/21/2018, 07/14/2017, Additional history exists GARDASIL-HPV IMMUNIZATION SERIES Aged Out No longer eligible based on patient's age to complete this topic MENINGOCOCCAL (MENACTRA/MENVEO) Aged Out No longer eligible based on patient's age to complete this topic documented as of this encounter Implants Implanted Type Area Rn Medication Device Identifier Shelf Expiration Date Model / Serial / Lot Cath Power Port 6fr Clearvue - [id number] Implanted:Qty : 1 on 08/10/2021 by Alexander Rodriguez MD at [place] [facility] [place] Left: Subclavian CR BARD : PERIPHERAL VASCULAR 08/21/2021 [id number] / / documented as of this encounter Advance Directives Documents on File Type Date Recorded Patient Wood Heel Fitter Machine Expl 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 Care Teams Used Car Lot Porter Relationship Specialty Start Date End Date Hortencia Leal PA-C [address] [facility], [place] [address] PCP - General Physician Semiconductor Wafers Etcher Stripper 02/08/18 documented as of this encounter
--- OUTSIDE RECORDS SUMMARY | 2023-06-27 07:56 | External Medical Summary | Summary of Care ---
Author Name Unknown Organization [place] [address] Care Team Providers Care Abstracter Name Role Phone Hortencia Lael PA-C Primary Care Provid er Reason for Visit * Reason Onset Date Comments Outpatient Testing 11/01/2021 Encounter Details Date Type Department Care Team Description 11/01/2021 Telephone Hematology/Oncology [facility] [place] 200 [facility] [address] Nik Melo MD 200 [place] [address] Outpatient Testing Allergies Active Allergy Reactions Severity Noted Date Comments Amlodipine 11/02/2020 dizziness Codeine Sulfate Other (Please comment) 10/26/19 11 hyperactivity Hydrochlorothiazide 11/02/2020 hypercalcemia documented as of this encounter (statuses as of 11/01/2021) Medications Medication Sig Dispensed Refills Start Date [...] times a day. As needed 0 Active [place]-3 Fatty Acids (FISH OIL) 1000 MG Capsule [...] as of this encounter (statuses as of 11/01/2021) Active Problems Problem Noted Date Adenocarcinoma of esophagus metastatic t o intra-abdominal lymph node 08/17/2021 Kidney stones 08/16/2021 RINA (stress urinary incontinence), male 08/16/2021 Renal cyst, acquired 08/16/2021 Encounter for antineoplastic chemotherap y 08/04/2021 Malignant neoplasm of overlapping sites of stomach 07/21/2021 Prostate cancer 12/31/2013 Other ventral hernia without mention of obstruction or gangrene 05/03/2012 documented as of this encounter (statuses as of 11/01/2021) Resolved Problems Problem Noted Date Resolved Date Elevated prostate specific antigen (PSA) 011 12/31/2013 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 Pt would like a return call to discuss what he should do now. Pt can be reached at [phone]. documented in this encounter Plan of Treatment Upcoming Encounters Date Type Specialty Care Team Description 11/02/2021 Office Visit Hematology Oncology [place], Nik Vargas MD 200 [place] [address] 11/02/2021 Hem/Onc Treatment Hematology Oncology [place], Chair 1 Hem Onc [facility] 200 [facility] [place] [address] 12/14/2021 Office Visit Urology Cm Rhodes MD [address] [address] [place] [address] Health Maintenance Due Date [...] of this encounter Implants Implanted Type Area Chute Builder Device Identifier Shelf Expiration Date Model / Serial / Lot Cath Power Port 6fr Clearvue - [id number] Implanted:Qty : 1 on 08/10/2021 by Alexander Rodriguez MD [place] [facility] [place] [facility] [place]: Subclavian CR BARD : PERIPHERAL VASCULAR 08/21/2021 [id number] / / documented as of this encounter Advance Directives Documents on File Type Date Recorded Patient Wildlife Refuge Manager Expl 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 Care Teams Abstracter Relationship Specialty Start Date End Date Hortencia Leal PA-C [facility] [place] [id number] PCP - General Physician Steamer Blocker 02/08/18 documented as of this encounter
--- OUTSIDE RECORDS SUMMARY | 2023-06-27 07:56 | External Medical Summary | Summary of Care ---
Author Name Unknown Organization [place] [address] Care Team Providers Care Explosives Detonator Name Role Phone Hortencia Leal PA-C Primary Care Provid er Reason for Visit * Reason Onset Date Comments Test Results Imaging Study 10/27/2021 Encounter Details Date Type Department Care Team Description 10/27/2021 Telephone Hematology/Oncology [facility], [place] [facility] [address] Nik Melo MD 200 [place] [address] Test Results Imaging Study Allergies Active Allergy Reactions Severity Noted Date Comments Amlodipine 11/02/2020 dizziness Codeine Sulfate Other (Please comment) 10/26/19 11 hyperactivity Hydrochlorothiazide 11/02/2020 hypercalcemia documented as of this encounter (statuses as of 10/27/2021) Medications Medication Sig Dispensed Refills Start Date [...] times a day. As needed 0 Active [place]-3 Fatty Acids (FISH OIL) 1000 MG [...] as of this encounter (statuses as of 10/27/2021) Active Problems Problem Noted Date Adenocarcinoma of esophagus metastatic t o intra-abdominal lymph node 08/17/2021 Kidney stones 08/16/2021 RINA (stress urinary incontinence), male 08/16/2021 Renal cyst, acquired 08/16/2021 Encounter for antineoplastic chemotherap y 08/04/2021 Malignant neoplasm of overlapping sites of stomach 07/21/2021 Prostate cancer 12/31/2013 Other ventral hernia without mention of obstruction or gangrene 05/03/2012 documented as of this encounter (statuses as of 10/27/2021) Resolved Problems Problem Noted Date Resolved Date Elevated prostate specific antigen (PSA) 011 12/31/2013 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 2. 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 Called and left message for patient to return call. Patient has appt with Dr Melo 11/02 to review scan in more detail. documented in this encounter Plan of Treatment Upcoming Encounters Date Type Specialty Care Team Description 11/01/2021 Laboratory Laboratory [facility] Scenery 200 [facility] [place] [address] 11/02/2021 Office Visit Hematology Oncology Nik Melo MD [address] [place] [address] 11/02/2021 Hem/Onc Treatment Hematology Oncology [place], Chair 1 Hem Onc Scenery 200 [facility] [place] [address] 12/14/2021 Office Visit Urology Cm Rhodes MD 27 [facility] [address] [place] [id number] Health Maintenance Due Date Last Done Comments [...] of this encounter Implants Implanted Type Area Orchard Sprayer Device Identifier Shelf Expiration Date Model / Serial / Lot Cath Power Port 6fr Clearvue - [id number] Implanted:Qty : 1 on 08/10/2021 by Alexander Rodriguez MD [place] [facility] [place] Subclavian CR BARD : PERIPHERAL VASCULAR 08/21/2021 [id number] / / documented as of this encounter Advance Directives Documents on File Type Date Recorded Patient High School Library Media Specialist Expl 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 Care Teams Explosives Detonator Relationship Specialty Start Date End Date Hortencia Leal PA-C [facility] [facility] [address] PCP - General Physician Firesetter 02/08/18 documented as of this encounter
--- OUTSIDE RECORDS SUMMARY | 2023-06-27 07:56 | External Medical Summary | Summary of Care ---
Author Name Unknown Organization [place] [address] Care Team Providers Care Fire Control Officer Name Role Phone Hortencia Leal PA-C Primary Care Provid er Reason for Visit * Reason Onset Date Comments Test Results Imaging Study 10/27/2021 Encounter Details Date Type Department Care Team Description 10/27/2021 Telephone Hematology/Oncology Treatment, [place] 200 [facility] [address] Nik Melo MD 200 [place] [address] Test Results Imaging Study Allergies Active Allergy [...] times a day. As needed 0 Active [place]-3 Fatty Acids (FISH OIL) 1000 MG Capsule [...] Miscellaneous Notes * Telephone Encounter - TANI Diaz - 11/01/2021 1:41 PM EST Patient/Parent called in requesting a copy of medical records. Records requested (for example, clinic notes, history and physical, immunizations, medications): PET scan results Name of hospital, company, or person to whom the information will be released to: [facility] [place] ([facility]) Request to have records mailed, faxed, or picked up at clinic?: Was a medical records request form signed?: - (If no, please notify patient that this will need to done in the clinic or on the [email or web address] website before any records are released) Is this request for Social Security Disability or a legal process?: - (If yes, the clinics do not complete these requests, please transfer to Medical Records at [phone].) Route encounter to the front attendant pool only if the release form is being signed electronically online.If signed release form is being completed in person at clinic, mailed, faxed, or dropped off in person, close the encounter without routing. Once form is received, the request will be processed. *Please inform the patient that there may be a fee associated with record requests. Was patient notified of this fee?: - * Telephone Encounter - Venita Byers RN - 10/27/2021 12:42 PM EST Called patient who verbalized understanding and appreciation of results. * Telephone Encounter - Ajit Ferguson CMA - 10/27/2021 11:47 AM EST Pt called and left a message returning call from Venita. Pt can be reached at [phone]. * Telephone Encounter - Venita Byers RN [...] Team Description 11/02/2021 Office Visit Hematology Oncology Nik Melo MD 200 [place] [address] 11/02/2021 Hem/Onc Treatment Hematology Oncology [place], Chair 1 Hem Onc [facility] 200 [place] [address] 12/14/2021 Office Visit Urology Cm Rhodes MD [address] [address] [place] [address] Health Maintenance Due Date [...] of this encounter Implants Implanted Type Area Housekeeper Head Device Identifier Shelf Expiration Date Model / Serial / Lot Cath Power Port 6fr Clearvue - [id number] Implanted:Qty : 1 on 08/10/2021 by Alexander Rodriguez MD [place] [facility] [place]: Subclavian CR BARD : PERIPHERAL VASCULAR 08/21/2021 [id number] / / documented as of this encounter Advance Directives Documents on File Type Date Recorded Patient Pump Mechanic Expl 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 Care Teams Fire Control Officer Relationship Specialty Start Date End Date Hortencia Leal PA-C [address] [facility] [address] PCP - General Physician Submersible Pilot 02/08/18 documented as of this encounter
--- OUTSIDE RECORDS SUMMARY | 2023-06-27 07:56 | External Medical Summary | Summary of Care ---
Author Name Unknown Organization [place] [address] Care Team Providers Care Special Delivery Clerk Name Role Phone Hortencia Leal PA-C Primary Care Provid er Reason for Visit * Reason Onset Date Comments Information 11/01/2021 Encounter Details Date Type Department Care Team Description 11/01/2021 Telephone Hematology/Oncology [facility] [place] [facility] [address] Nik Melo MD 200 [place] [address] Information Allergies Active Allergy Reactions Severity Noted [...] times a day. As needed 0 Active [place]-3 Fatty Acids (FISH OIL) 1000 MG Capsule [...] Telephone Encounter - Venita Byers RN - 11/01/2021 2:04 PM EST Treatment room is aware- patients 5FU is already at office. * Telephone Encounter - TANI Pelaez - 11/01/2021 1:42 PM EST Patient just now check in to have his labs done, when he was scheduled for 9:45 am and he is to have treatment tomorrow. documented in this encounter Plan of Treatment Upcoming Encounters Date Type Specialty Care Team Description 11/02/2021 Office Visit Hematology Oncology Nik Melo MD 200 [place] [address] 11/02/2021 Hem/Onc Treatment Hematology Oncology [place], Chair [address] [address] 12/14/2021 Office Visit Urology Cm Rhodes MD [address] [address] [place] [address] Health Maintenance Due Date Last Done Comments [...] of this encounter Implants Implanted Type Area Operations Vice President Device Identifier Shelf Expiration Date Model / Serial / Lot Cath Power Port 6fr Clearvue - [id number] Implanted:Qty : 1 on 08/10/2021 [place] Rodriguez [place] [facility] [place] Subclavian CR BARD : PERIPHERAL VASCULAR 08/21/2021 [id number] / / documented as of this encounter Advance Directives Documents on File Type Date Recorded Patient Revenue Inspector Expl 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 Care Teams Special Delivery Clerk Relationship Specialty Start Date End Date Hortencia Leal PA-C [facility] [facility] [address] PCP - General Physician Investment Advisor 02/08/18 documented as of this encounter
--- OUTSIDE RECORDS SUMMARY | 2023-06-27 07:56 | External Medical Summary | Summary of Care ---
Author Name Unknown Organization [place] [address] Care Team Providers Care Baggage Handler Name Role Phone Hortencia Leal PA-C Primary Care Provid er Reason for Visit * Reason Onset Date Comments Test Results Imaging Study 10/27/2021 Encounter Details Date Type Department Care Team Description 10/27/2021 Telephone [facility]ematology[facility]cology [facility] [place] [facility] [address] Nik Melo MD 200 [place] [address] Test Results Imaging Study Allergies Active Allergy [...] times a day. As needed 0 Active [place]-3 Fatty Acids (FISH OIL) 1000 MG Capsule [...] released to: Community Care office [place] Kirk ([facility]) Request to have records mailed, faxed, or picked up at clinic?: Was a medical records request form signed?: - (If no, please notify patient that this will need to done in the clinic or on the [email or web address] website before any records are released) Is this request for Social Security Disability or a legal process?: - (If yes, the clinics do not complete these requests, please transfer to Medical Records at [phone].) Route encounter to the front end assistant pool only if the release form is [...] from Venita. Pt can be reached at [phone]. * Telephone Encounter - Venita Byers RN [...] Visit Hematology Oncology Nik Melo MD 200 [place] [address] 11/02/2021 Hem/Onc Treatment Hematology Oncology [place], Chair [address] [facility] 200 [place] [address] 12/14/2021 Office Visit Urology Cm Rhodes MD [address] [address] [place] [address] Health Maintenance Due Date [...] of this encounter Implants Implanted Type Area Retail Center Receptionist Device Identifier Shelf Expiration Date Model / Serial / Lot Cath Power Port 6fr Clearvue - [id number] Implanted:Qty : 1 on 08/10/2021 by Alexander Rodriguez MD at [place] [facility] [place] Left: Subclavian CR BARD : PERIPHERAL VASCULAR 08/21/2021 [id number] / / documented as of this encounter Advance Directives Documents on File Type Date Recorded Patient Syrup Mixer Helper Expl 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 Care Teams Baggage Handler Relationship Specialty Start Date End Date Hortencia Leal PA-C [facility] [facility] [address] PCP - General Physician Policy Advisor 02/08/18 documented as of this encounter
--- OUTSIDE RECORDS SUMMARY | 2023-06-27 07:56 | External Medical Summary ---
Author Name Unknown Address Unknown Organization K09:[facility] [place] [address] Laboratory Report Ordering Provider Test Date Status SHAY CH 11/01/2021 13:48:28 Final Observation Date Value Abnormality Reference (Units ) Status WBC, Total 11/01/2021 13:48:28 6.72 4.00-10.8 0 (K/uL) Final RBC 11/01/2021 13:48:28 3.58 Below low normal 4.5 0-5.25 (M/uL) Final Hemoglobin 11/01/2021 13:48:28 10.8 Below low normal 14 .0-16.8 (g/dL) Final HCT 11/01/2021 13:48:28 34.7 Below low normal 40. 0-48.4 (%) Final MCV 11/01/2021 13:48:28 96.9 82.0-99.5 (fL) Final MCH 11/01/2021 13:48:28 30.2 27.0-34.0 (pg) Final MCHC 11/01/2021 13:48:28 31.1 Below low normal 32. 0-36.0 (g/dL) Final RDW 11/01/2021 13:48:28 17.5 Above high normal 11 .5-15.5 (%) Final Platelets 11/01/2021 13:48:28 186 140-400 (K /uL) Final MPV 11/01/2021 13:48:28 8.9 6.6-11.1 ( fL) Final Performing Location [facility] [place] [address]
--- OUTSIDE RECORDS SUMMARY | 2023-06-27 07:56 | External Medical Summary | Summary of Care ---
Author Name Unknown Organization [place] [address] Care Team Providers Care Analyst Programmer Name Role Phone Hortencia Leal PA-C Primary Care Provid er Encounter Details Date Type Department Care Team Description 10/27/2021 Scan Encounter Hematology/Oncology [facility] 200 [place] [address] Nik Melo MD 200 [place] [address] <No scans attached> Allergies Active Allergy Reactions [...] times a day. As needed 0 Active [place]-3 Fatty Acids (FISH OIL) 1000 MG Capsule [...] Specialty Care Team Description 11/01/2021 Laboratory Laboratory [facility] [address] [address] 11/02/2021 Office Visit Hematology Oncology Nik Melo MD 200 [place] [address] 11/02/2021 Hem/Onc Treatment Hematology Oncology [place], Chair [address] [address] 12/14/2021 Office Visit Urology Cm Rhodes MD [address] [place] [address] Health Maintenance Due Date Last Done [...] of this encounter Implants Implanted Type Area Waterproof Coating Machine Tender Device Identifier Shelf Expiration Date Model / Serial / Lot Cath Power Port 6fr Clearvue - [id number] Implanted:Qty : 1 on 08/10/2021 by Alexander Rodriguez MD at [place] [facility] [place] Left: Subclavian CR BARD : PERIPHERAL VASCULAR 08/21/2021 [id number] / / documented as of this encounter Advance Directives Documents on File Type Date Recorded Patient Nurse Gynecology Expl 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 Care Teams Analyst Programmer Relationship Specialty Start Date End Date Hortencia Leal PA-C [address] [place], [place] [address] PCP - General Physician Fiberglass Machine Operator 02/08/18 documented as of this encounter
--- OUTSIDE RECORDS SUMMARY | 2023-06-27 07:56 | External Medical Summary | Summary of Care ---
Author Name Unknown Organization [place] [address] Care Team Providers Care Parts Identification Technician Name Role Phone Hortencia Leal PA-C Primary Care Provid er Reason for Visit * Reason Onset Date Comments Information 11/01/2021 Encounter Details Date Type Department Care Team Description 11/01/2021 Telephone Hematology/Oncology [facility] [place] [facility] [address] Nik Melo MD 200 [place] [address] Information Allergies Active Allergy Reactions Severity Noted [...] times a day. As needed 0 Active [place]-3 Fatty Acids (FISH OIL) 1000 MG Capsule [...] Hematology Oncology [place], Nik Vargas MD 200 [place] [address] 11/02/2021 Hem/Onc Treatment Hematology Oncology [place], Chair [address] [address] 12/14/2021 Office Visit Urology Cm Rhodes MD [address] [place] [address] [place] [address] Health Maintenance Due Date [...] of this encounter Implants Implanted Type Area Critical Power Install Technician Device Identifier Shelf Expiration Date Model / Serial / Lot Cath Power Port 6fr Clearvue - [id number] Implanted:Qty : 1 on 08/10/2021 by Alexander Rodriguez MD at OR [facility] Left: Subclavian CR BARD : PERIPHERAL VASCULAR 08/21/2021 [id number] / / documented as of this encounter Advance Directives Documents on File Type Date Recorded Patient Combination Machine Tool Setter Expl anation Advanced Directive Advanced Directive [...] were consensually agreed upon. Care Teams Parts Identification Technician Relationship Specialty Start Date End Date Hortencia Leal PA-C [address] [place] [address] PCP - General Physician Research Asst 02/08/18 documented as of this encounter
--- OUTSIDE RECORDS SUMMARY | 2023-06-27 07:56 | External Medical Summary | Summary of Care ---
Author Name Unknown Organization [place] [address] Care Team Providers Care Direct Support Specialist Name Role Phone Hortencia Leal PA-C Primary Care Provid er Reason for Visit * Reason Comments Outpatient Testing Encounter Details Date Type Department Care Team Description 11/01/2021 Laboratory Laboratory [facility] [place] [address] [place] [address] [facility] 200 [facility] [place] [address] Malignant neoplasm of overlapping sites of stomach [...] times a day. 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) 11/01/2021 1:48 PM EST Health Maintenance Due Date Last Done [...] of this encounter Implants Implanted Type Area Equipment Operation Instructor Device Identifier Shelf Expiration Date Model / Serial / Lot Cath Power Port 6fr Clearvue - [id number] Implanted:Qty : 1 on 08/10/2021 by Alexander Rodriguez MD at [place] [facility] [place] Left: Subclavian CR BARD : PERIPHERAL VASCULAR 08/21/2021 [id number] / / documented as of this encounter Procedures Procedure Name Priority Date/Time Associated Diagnosis Comments DIFFERENTIAL, AUTOMATED STAT 11/01/2021 1:48 PM EST 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 56-02 Eosinophils % 1.9 0.0 - 6.0 % [facility] 56-02 Basophils % 0.3 0.0 - 2.0 % LABORATORY STAT E [facility] Absolute Neutrophils 4.17 1.80 - 7.70 K/uL [facility] 56 Absolute Lymphocytes 1.73 1.00 - 4.80 K/ul [facility] 56 Absolute Monocytes 0.67 0.00 - 1.10 K/uL [facility] 56- Absolute Eosinophils 0.13 0.00 - 0.70 K/uL [facility] 56 Absolute Basophils 0.02 0.00 - 0.20 K/uL [facility] 56 Specimen Blood - Venous blood specime n (specimen) Performing Organization Address City/[facility]/ZIP Co de Phone Number [facility] 56 200 [place] [address] * CBC (11/01/2021 1:48 PM EST) WBC 6.72 4.00 - 10.80 K/uL [facility] 56- RBC 3.58(L) 4.50 - 5.25 M/uL [address] HGB 10.8(L) 14.0 - 16.8 g/dL [address] HCT 34.7(L) 40.0 - 48.4 % LAB[facility] - MCV 96.9 82.0 - 99.5 fL [place] [address]- MCH 30.2 27.0 - 34.0 pg [facility] - MCHC 31.1(L) 32.0 - 36.0 g/dL [place] [address] RDW 17.5(H) 11.5 - 15.5 % [facility] Plt 186 140 - 400 K/uL [place] [address]- MPV 8.9 6.6 - 11.1 fL [facility] Specimen Blood - Venous blood specime n (specimen) Performing Organization Address City/[facility]/ZIP Co de Phone Number [facility] 200 [place] [address] documented in this encounter Visit Diagnoses Diagnosis 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 Care Teams Direct Support Specialist Relationship Specialty Start Date End Date Hortencia Leal PA-C [address] [place] [address] PCP - General Physician Bricklayer Helper 02/08/18 documented as of this encounter
--- OUTSIDE RECORDS SUMMARY | 2023-06-27 07:56 | External Medical Summary | Summary of Care ---
Author Name Unknown Organization [place] [address] Care Team Providers Care Leasing Consultant Name Role Phone Hortencia Leal PA-C Primary Care Provid er Reason for Visit * Reason Onset Date Comments Test Results Imaging Study 10/27/2021 Encounter Details Date Type Department Care Team Description 10/27/2021 Telephone Hematology/Oncology Treatment, [place] [facility] [address] Nik Melo MD 200 [facility] Test Results Imaging Study Allergies Active Allergy [...] times a day. As needed 0 Active [place]-3 Fatty Acids (FISH OIL) 1000 MG Capsule [...] released to: Community Care office [place] Kirk ([facility]) Request to have records mailed, faxed, or picked up at clinic?: Was a medical records request form signed?: - (If no, please notify patient that this will need to done in the clinic or on the [email or web address] website before any records are released) Is this request for Social Security Disability or a legal process?: - (If yes, the clinics do not complete these requests, please transfer to Medical Records at [phone].) Route encounter to the front end engineer pool only if the release form is [...] from Venita. Pt can be reached at [phone]. * Telephone Encounter - Venita Byers RN [...] Visit Hematology Oncology Nik Melo MD 200 [facility] 11/02/2021 Hem/Onc Treatment Hematology Oncology [place], Chair 1 Hem Onc [facility] 200 [place] [address] 12/14/2021 Office Visit Urology Cm Rhodes MD [address] [address] [place] [address] Health Maintenance Due Date [...] of this encounter Implants Implanted Type Area Pillar Worker Device Identifier Shelf Expiration Date Model / Serial / Lot Cath Power Port 6fr Clearvue - [id number] Implanted:Qty : 1 on 08/10/2021 by Alexander Rodriguez [place] [facility] [place] Subclavian CR BARD : PERIPHERAL VASCULAR 08/21/2021 [id number] / / documented as of this encounter Advance Directives Documents on File Type Date Recorded Patient Architecture Department Chair Expl 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 Care Teams Leasing Consultant Relationship Specialty Start Date End Date Hortencia Leal PA-C [facility] [facility] [address] PCP - General Physician Peace Officer 02/08/18 documented as of this encounter
--- OUTSIDE RECORDS SUMMARY | 2023-06-27 07:56 | External Medical Summary | Summary of Care ---
Author Name Unknown Organization [place] [address] Care Team Providers Care Back Tender Pulp Drier Name Role Phone Hortencia Leal PA-C Primary Care Provid er Reason for Visit * Reason Onset Date Comments Test Results Imaging Study 10/27/2021 Encounter Details Date Type Department Care Team Description 10/27/2021 Telephone Hematology/Oncology Treatment, [place] 200 [facility] [address] Nik Melo MD 200 [place] [address] Test Results Imaging Study Allergies Active Allergy [...] times a day. As needed 0 Active [place]-3 Fatty Acids (FISH OIL) 1000 MG [...] from Venita. Pt can be reached at [phone]. * Telephone Encounter - Venita Byers RN [...] Specialty Care Team Description 11/01/2021 Laboratory Laboratory [place], Lab Scenery 200 [place] [address] 11/02/2021 Office Visit Hematology Oncology Nik Melo MD 200 [place] [address] 11/02/2021 Hem/Onc Treatment Hematology Oncology [place], Chair 1 Hem Onc [place] 200 [place] [address] 12/14/2021 Office Visit Urology Cm Rhodes MD [address] [place] [address] Health Maintenance Due Date Last Done [...] this encounter Implants Implanted Type Area Data Officer Device Identifier Shelf Expiration Date Model / Serial / Lot Cath Power Port 6fr Clearvue - [id number] Implanted:Qty : 1 on 08/10/2021 by Alexander Rodriguez MD [place] [facility] [place]: Subclavian CR BARD : PERIPHERAL VASCULAR 08/21/2021 [id number] / / documented as of this encounter Advance Directives Documents on File Type Date Recorded Patient Laborer Road Expl 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 Care Teams Back Tender Pulp Drier Relationship Specialty Start Date End Date Hortencia Leal PA-C [address] [facility] [address] PCP - General Physician World Travel Counselor 02/08/18 documented as of this encounter
--- OUTSIDE RECORDS SUMMARY | 2023-06-27 07:56 | External Medical Summary ---
Author Name Unknown Address Unknown Organization K09[facility] [address] Laboratory Report Ordering Provider Test Date Status SHAY CH 11/01/2021 13:48:28 Final Observation Date Value Abnormality Reference (Units ) Status BUN 11/01/2021 13:48:28 18 6-20 (mg/dL) Final Creatinine 11/01/2021 13:48:28 1.5 Above high normal 0.6-1.2 (mg/dL) Final Glomerular filtration rate/1.73 sq M.predicted [Volume Rate/Area] in Serum, Plasma or Blood by Creatinine-based formula (CKD-EPI) 11/01/2021 13:48:28 47 Below low normal >=60 (mL/min) Final Performing Location [facility] [place] [place] [address]
--- OUTSIDE RECORDS SUMMARY | 2023-06-27 07:56 | External Medical Summary | Summary of Care ---
Author Name Unknown Organization [place] [address] Care Team Providers Care Melting Furnace Skimmer Name Role Phone Hortencia Leal PA-C Primary Care Provid er Reason for Visit * Reason Onset Date Comments Test Results Imaging Study 10/27/2021 Encounter Details Date Type Department Care Team Description 10/27/2021 Telephone Hematology/Oncology Treatment, [place] 200 [facility] [address] Nik Melo MD 200 [place] [address] Test Results Imaging Study Allergies Active Allergy [...] times a day. As needed 0 Active [place]-3 Fatty Acids (FISH OIL) 1000 MG Capsule [...] from Venita. Pt can be reached at [phone]. * Telephone Encounter - Venita Byers RN [...] Specialty Care Team Description 11/01/2021 Laboratory Laboratory [place], Lab Scenery [address] [place] [address] 11/02/2021 Office Visit Hematology Oncology Nik Melo MD 200 [place] [address] 11/02/2021 Hem/Onc Treatment Hematology Oncology [place], Chair 1 Hem Onc [facility] 200 [place] [address] 12/14/2021 Office Visit Urology Cm Rhodes MD [address] [place] [address] Health Maintenance Due Date Last Done [...] of this encounter Implants Implanted Type Area Crop Ranch Hand Device Identifier Shelf Expiration Date Model / Serial / Lot Cath Power Port 6fr Clearvue - [id number] Implanted:Qty : 1 on 08/10/2021 by Alexander Rodriguez MD [place] [facility] [place]: Subclavian CR BARD : PERIPHERAL VASCULAR 08/21/2021 [id number] / / documented as of this encounter Advance Directives Documents on File Type Date Recorded Patient Tile Sprayer Expl 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 Care Teams Melting Furnace Skimmer Relationship Specialty Start Date End Date Hortencia Leal PA-C [address] [facility], [place] [address] PCP - General Physician Wharf Tender Helper 02/08/18 documented as of this encounter
--- OUTSIDE RECORDS SUMMARY | 2023-06-27 07:56 | External Medical Summary ---
Author Name Unknown Address Unknown Organization K09:[facility] [place] [address] Laboratory Report Ordering Provider Test Date Status SHAY CH 11/01/2021 13:48:28 Final Observation Date Value Abnormality Reference (Units ) Status SYNC LEUKOCYTES IN BLOOD BY AUTOMATED COUNT 11/01/2021 13:48:28 6.72 4.00-10.80 (K/uL) Final Segs 11/01/2021 13:48:28 62.1 40.0-75.0 (%) Final Lymphs % 11/01/2021 13:48:28 25.7 18.0-42.0 (%) Final Monos 11/01/2021 13:48:28 10.0 1.0-11.0 (%) Final Eosinophils 11/01/2021 13:48:28 1.9 0.0-6.0 (%) Final Basos 11/01/2021 13:48:28 0.3 0.0-2.0 (%) Final Absolute Segs 11/01/2021 13:48:28 4.17 1.80-7.70 (K/uL) Final Lymphs, absolute 11/01/2021 13:48:28 1.73 1.00-4.80 (K/ul) Final Monos, Abs 11/01/2021 13:48:28 0.67 0.00-1.10 (K/uL) Final Eos, Abs 11/01/2021 13:48:28 0.13 0.00-0.70 (K/uL) Final Basos, Abs 11/01/2021 13:48:28 0.02 0.00-0.20 (K/uL) Final Performing Location [facility] [place] [address]
--- OUTSIDE RECORDS SUMMARY | 2023-06-27 07:57 | External Medical Summary | Summary of Care ---
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) Procedures ND LEUCOVORIN CALCIUM INJECTION ND PALONOSETRON HCL ND FLUOROURACIL INJECTION ND OXALIPLATIN Nik Melo MD [address] [address] Anc Hem/Onc [facility] [place] [address] [place] [phone] Referral ID Status Reason Start Date Expiration Date V isits Requested Visits Authorized [id number] Authorized 08/19/2021 08/19/2022 99 99 Encounter Details Date Type Department Care Team Description 10/06/2021 Immunization/I njection Hematology/Oncology Treatment, [place] [address] [place] [address] Nurse, Med [address] [place] [address] [address] 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 As needed 0 Active [place]-3 Fatty Acids (FISH OIL) 1000 MG Capsule [...] Information Patient not taking. Reported on 08/10/2021 Ondansetron HCl 8 MG Oral TabletIndications:M alignant neoplasm of overlapping sites of stomach (HCC) Take 1 Tab by mouth every 8 hours as needed for Nausea. 30 Tab 0 08/03/2021 Active Additional Information Patient [...] for Nausea. 60 Tablet 2 10/03/2021 Active documented as of this encounter (statuses as of 10/06/2021) Active Problems Problem Noted Date Adenocarcinoma of esophagus metastatic t o intra-abdominal lymph node 08/17/2021 Kidney stones 08/16/2021 RINA (stress urinary incontinence), male 08/16/2021 Renal cyst, acquired 08/16/2021 Encounter for antineoplastic chemotherap y 08/04/2021 Malignant neoplasm of overlapping sites of stomach 07/21/2021 Prostate cancer 12/31/2013 Other ventral hernia without mention of obstruction or gangrene 05/03/2012 documented as of this encounter (statuses as of 10/06/2021) Resolved Problems Problem Noted Date Resolved Date Elevated prostate specific antigen (PSA) 011 12/31/2013 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 Pt arrived at clinic with home 5FU infusion pump completed. Pump was disconnected, VAD flushed per protocol, and zhou needle removed intact. Pt discharged in stable condition. documented in this encounter Plan of Treatment Upcoming Encounters Date Type Specialty Care Team Description 10/24/2021 Laboratory Laboratory [place] [facility] 200 [place] [address] 10/25/2021 Office Visit Hematology Oncology Nik Melo MD 200 [place] [address] 10/25/2021 Hem/Onc Treatment Hematology Oncology [place], Chair 8 Hem Onc Scenery 200 [place] [address] 12/14/2021 Office Visit Urology Cm Rhodes MD [address] [place] [address] Health Maintenance Due Date Last Done Comments Pneumococcal Vaccine: 65+ Years (1 of 4 - PCV13) 12/29/1951 DTaP,Tdap,and Td Vaccines (1 - Tdap) 1964 Zoster Vaccines (1 of 2) 12/29/1995 *DEPRESSION SCREENING,ANNUAL FOR PTS 12 AND OVER 09/29/2016 COVID-19 Vaccine (3 - Moderna risk 4-dose series) 03/14/2021 02/14/2021, 01/17/2021 COLONOSCOPY-EVERY 3 YRS AGES 18-100 07/15/2024 07/15/2021, 07/15/2021, 04/12/2018, Additional history exists DIABETES SCREEN EVERY 3 YRS-AGE 45 AND ABOVE 10/03/2024 10/03/2021, 09/13/2021, 08/29/2021, Additional history exists Influenza Vaccine (FLU shot) Completed 06/2021, 08/21/2018, 07/14/2017, Additional history exists MENINGOCOCCAL (MENACTRA/MENVEO) Aged Out No longer eligible based on patient's age to complete this topic documented as of this encounter Implants Implanted Type Area Blue Print Control Clerk Device Identifier Shelf Expiration Date Model / Serial / Lot Cath Power Port 6fr Clearvue - [id number] Implanted:Qty : 1 on 08/10/2021 by Alexander Rodriguez MD at OR [facility] Left: Subclavian CR BARD : PERIPHERAL VASCULAR 08/21/2021 [id number] / / documented as of this encounter [...] PRN Other, IV Flush, Starting on Chandrika 10/06/21 at 1218, Until 10/07/21 at 1217, For 24 hours, Do not flush if lock, PICC, or central line not in place; IV infusing or unable to flush. Given 10/06/2021 12:27 PM EST 500 Units sodium chloride 0.9 % flush/inj 10 mL 10 mL, IV Push, PRN Other, IV Flush, Starting on Chandrika 10/06/21 at 1218, Until 10/07/21 at 1217, For 24 hours, Do not flush if lock, PICC, or central line not in place; IV infusing or unable to flush. Given 10/06/2021 12:27 PM EST 10 mL documented in this encounter Advance Directives Documents on File Type Date Recorded Patient Real Estate Accountant Expl 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 Care Teams Program Architect Relationship Specialty Start Date End Date Hortencia Leal PA-C [address] [facility] [address] PCP - General Physician Ballet Master/Mistress 02/08/18 documented as of this encounter
--- OUTSIDE RECORDS SUMMARY | 2023-06-27 07:57 | External Medical Summary | Summary of Care ---
Author Name Unknown Organization [place] [address] Care Team Providers Care Turning Machine Set Up Operator Name Role Phone Hortencia Leal PA-C Primary Care Provid er Encounter Details Date Type Department Care Team Description 10/20/2021 Orders Only Hematology/Oncology [facility] 200 [place] [address] Nik Melo MD 200 [place] [address] Allergies Active Allergy Reactions Severity Noted Date Comments Amlodipine 11/02/2020 dizziness Codeine Sulfate Other (Please comment) 10/26/19 11 hyperactivity Hydrochlorothiazide 11/02/2020 hypercalcemia documented as of this encounter (statuses as of 10/20/2021) Medications Medication Sig Dispensed Refills Start Date [...] times a day. As needed 0 Active [place]-3 Fatty Acids (FISH OIL) 1000 MG Capsule [...] for Nausea. 30 Tablet 0 10/17/2021 Active documented as of this encounter (statuses as of 10/20/2021) Active Problems Problem Noted Date Adenocarcinoma of esophagus metastatic t o intra-abdominal lymph node 08/17/2021 Kidney stones 08/16/2021 RINA (stress urinary incontinence), male 08/16/2021 Renal cyst, acquired 08/16/2021 Encounter for antineoplastic chemotherap y 08/04/2021 Malignant neoplasm of overlapping sites of stomach 07/21/2021 Prostate cancer 12/31/2013 Other ventral hernia without mention of obstruction or gangrene 05/03/2012 documented as of this encounter (statuses as of 10/20/2021) Resolved Problems Problem Noted Date Resolved Date Elevated prostate specific antigen (PSA) 011 12/31/2013 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 documented as of this encounter (statuses as of 10/20/2021) Immunizations Name Administration Dates Next Due COVID-19 [...] Specialty Care Team Description 10/24/2021 Laboratory Laboratory [place], [facility] 200 [place] [address] 10/25/2021 Office Visit Hematology Oncology Nik Melo MD 200 [place] [address] 10/25/2021 Hem/Onc Treatment Hematology Oncology [place], Chair 8 Hem Onc Scenery 200 [place] [address] 12/14/2021 Office Visit Urology Cm Rhodes MD [address] [place] [address] Health Maintenance Due Date Last Done [...] of this encounter Implants Implanted Type Area Tripper Device Identifier Shelf Expiration Date Model / Serial / Lot Cath Power Port 6fr Clearvue - [id number] Implanted:Qty : 1 on 08/10/2021 by Alexander Rodriguez MD at [facility] Left: Subclavian CR BARD : PERIPHERAL VASCULAR 08/21/2021 [id number] / / documented as of this encounter Advance Directives Documents on File Type Date Recorded Patient Furrier Apprentice Expl 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 Care Teams Turning Machine Set Up Operator Relationship Specialty Start Date End Date Hortencia Leal PA-C [address] [place] [address] PCP - General Physician City Manager 02/08/18 documented as of this encounter
--- OUTSIDE RECORDS SUMMARY | 2023-06-27 07:57 | External Medical Summary ---
Author Name Unknown Address Unknown Organization [id number] [place] [address] Laboratory Report Ordering Provider Test Date Status SHAY CH 10/24/2021 10:28:46 Final Observation Date Value Abnormality Reference (Units ) Status SYNC LEUKOCYTES IN BLOOD BY AUTOMATED COUNT 10/24/2021 10:28:46 3.57 Below low normal 4.00-10.80 (K/uL) Final Segs 10/24/2021 10:28:46 39.2 Below low normal 40.0-75.0 (%) Final Lymphs % 10/24/2021 10:28:46 35.6 18.0-42.0 (%) Final Monos 10/24/2021 10:28:46 21.3 Above high normal 1.0-11.0 (%) Final Eosinophils 10/24/2021 10:28:46 3.6 0.0-6.0 (%) Final Basos 10/24/2021 10:28:46 0.3 0.0-2.0 (%) Final Absolute Segs 10/24/2021 10:28:46 1.40 Below low normal 1.80-7.70 (K/uL) Final Lymphs, absolute 10/24/2021 10:28:46 1.27 1.00-4.80 (K/ul) Final Monos, Abs 10/24/2021 10:28:46 0.76 0.00-1.10 (K/uL) Final Eos, Abs 10/24/2021 10:28:46 0.13 0.00-0.70 (K/uL) Final Basos, Abs 10/24/2021 10:28:46 0.01 0.00-0.20 (K/uL) Final Performing Location [facility] [place] [address]
--- OUTSIDE RECORDS SUMMARY | 2023-06-27 07:57 | External Medical Summary | Summary of Care ---
Author Name Unknown Organization [place] [address] Care Team Providers Care Web Press Operator Apprentice Name Role Phone Hortencia Leal PA-C Primary Care Provid er Reason for Visit * Reason Onset Date Comments Appointment 10/24/2021 chemo tomorrow Encounter Details Date Type Department Care Team Description 10/24/2021 Telephone Hematology/Oncology [facility] 200 [place] [address] Nik Melo MD 200 [place] [address] Appointment (chemo tomorrow) Allergies Active Allergy Reactions Severity Noted Date Comments Amlodipine 11/02/2020 dizziness Codeine Sulfate Other (Please comment) 10/26/19 11 hyperactivity Hydrochlorothiazide 11/02/2020 hypercalcemia documented as of this encounter (statuses as of 10/24/2021) Medications Medication Sig Dispensed Refills Start Date [...] times a day. As needed 0 Active [place]-3 Fatty Acids (FISH OIL) 1000 MG Capsule [...] as of this encounter (statuses as of 10/24/2021) Active Problems Problem Noted Date Adenocarcinoma of esophagus metastatic t o intra-abdominal lymph node 08/17/2021 Kidney stones 08/16/2021 RINA (stress urinary incontinence), male 08/16/2021 Renal cyst, acquired 08/16/2021 Encounter for antineoplastic chemotherap y 08/04/2021 Malignant neoplasm of overlapping sites of stomach 07/21/2021 Prostate cancer 12/31/2013 Other ventral hernia without mention of obstruction or gangrene 05/03/2012 documented as of this encounter (statuses as of 10/24/2021) Resolved Problems Problem Noted Date Resolved Date Elevated prostate specific antigen (PSA) 011 12/31/2013 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 Lab results reviewed with Dr Melo, Creatinine=1.9, EGFR=34. Per Dr Melo, labs are stable for this patient and ok to treat tomorrow as planned. Home 5FU order released and [facility] is aware. documented in this encounter Plan of Treatment Upcoming Encounters Date Type Specialty Care Team Description 10/25/2021 Office Visit [facility]ematology [facility]cology [facility] [address] 10/25/2021 Hem/Onc Treatment Hematology Oncology [place], Chair 8 Hem Onc 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) 12/14/2021 Office Visit Urology Cm Rhodes MD [address] [address] [address] [place] [address] Health Maintenance Due Date [...] of this encounter Implants Implanted Type Area Materials Planning Manager Device Identifier Shelf Expiration Date Model / Serial / Lot Cath Power Port 6fr Clearvue - [id number] Implanted:Qty : 1 on 08/10/2021 by Alexander Rodriguez MD [place] [facility] [place] Left: Subclavian CR BARD : PERIPHERAL VASCULAR 08/21/2021 [id number] / / documented as of this encounter Advance Directives Documents on File Type Date Recorded Patient Modular Set Crew Member Expl 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 Care Teams Web Press Operator Apprentice Relationship Specialty Start Date End Date Hortencia Leal PA-C [address] [facility] [address] PCP - General Physician Student Counsellor 02/08/18 documented as of this encounter
--- OUTSIDE RECORDS SUMMARY | 2023-06-27 07:57 | External Medical Summary ---
Author Name Unknown Address Unknown Organization [facility] [place] [address] Laboratory Report Ordering Provider Test Date Status SHAY CH 10/24/2021 10:28:46 Final Observation Date Value Abnormality Reference (Units ) Status WBC, Total 10/24/2021 10:28:46 3.57 Below low normal 4. 00-10.80 (K/uL) Final RBC 10/24/2021 10:28:46 3.36 Below low normal 4.5 0-5.25 (M/uL) Final Hemoglobin 10/24/2021 10:28:46 9.9 Below low normal 14 .0-16.8 (g/dL) Final HCT 10/24/2021 10:28:46 32.6 Below low normal 40. 0-48.4 (%) Final MCV 10/24/2021 10:28:46 97.0 82.0-99.5 (fL) Final MCH 10/24/2021 10:28:46 29.5 27.0-34.0 (pg) Final MCHC 10/24/2021 10:28:46 30.4 Below low normal 32. 0-36.0 (g/dL) Final RDW 10/24/2021 10:28:46 17.9 Above high normal 11 .5-15.5 (%) Final Platelets 10/24/2021 10:28:46 167 140-400 (K /uL) Final MPV 10/24/2021 10:28:46 8.6 6.6-11.1 ( fL) Final Performing Location [facility] [place] [address]
--- OUTSIDE RECORDS SUMMARY | 2023-06-27 07:57 | External Medical Summary | Summary of Care ---
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 As needed 0 Active [place]-3 Fatty Acids (FISH OIL) 1000 MG Capsule [...] as of this encounter (statuses as of 10/17/2021) Active Problems Problem Noted Date Adenocarcinoma of esophagus metastatic t o intra-abdominal lymph node 08/17/2021 Kidney stones 08/16/2021 RINA (stress urinary incontinence), male 08/16/2021 Renal cyst, acquired 08/16/2021 Encounter for antineoplastic chemotherap y 08/04/2021 Malignant neoplasm of overlapping sites of stomach 07/21/2021 Prostate cancer 12/31/2013 Other ventral hernia without mention of obstruction or gangrene 05/03/2012 documented as of this encounter (statuses as of 10/17/2021) Resolved Problems Problem Noted Date Resolved Date Elevated prostate specific antigen (PSA) 011 12/31/2013 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 documented in this encounter Plan of Treatment Upcoming Encounters Date Type Specialty Care Team Description 10/24/2021 Laboratory Laboratory [place] [facility] [address] [place] [address] 10/25/2021 Office Visit Hematology Oncology Nik Melo MD [address] [place] [address] 10/25/2021 Hem/Onc Treatment Hematology Oncology [place], Chair 8 Hem Onc Scenery [address] [place] [address] 12/14/2021 Office Visit Urology Cm Rhodes MD [address] [address] [address] [address] Health Maintenance Due Date [...] of this encounter Implants Implanted Type Area Claim Clinician Device Identifier Shelf Expiration Date Model / Serial / Lot Cath Power Port 6fr Clearvue - [id number] Implanted:Qty : 1 on 08/10/2021 [place] [facility] [place] Subclavian CR BARD : PERIPHERAL VASCULAR 08/21/2021 [id number] / / documented as of this encounter Visit Diagnoses Diagnosis 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 Care Teams Insecticide Mixer Relationship Specialty Start Date End Date Hortencia Leal PA-C [address] [facility] [address] PCP - General Physician Gasoline Tractor Operator 02/08/18 documented as of this encounter
--- OUTSIDE RECORDS SUMMARY | 2023-06-27 07:57 | External Medical Summary ---
Author Name Unknown Address Unknown Organization K[facility] [place] [address] Laboratory Report Ordering Provider Test Date Status SHAY CH 10/24/2021 10:28:46 Final Observation Date Value Abnormality Reference (Units ) Status BUN 10/24/2021 10:28:46 17 6-20 (mg/dL) Final Creatinine 10/24/2021 10:28:46 1.9 Above high normal 0.6-1.2 (mg/dL) Final Glomerular filtration rate/1.73 sq M.predicted [Volume Rate/Area] in Serum, Plasma or Blood by Creatinine-based formula (CKD-EPI) 10/24/2021 10:28:46 34 Below low normal >=60 (mL/min) Final Performing Location [facility] [place] [address]
--- OUTSIDE RECORDS SUMMARY | 2023-06-27 07:57 | External Medical Summary | Summary of Care ---
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 As needed 0 Active [place]-3 Fatty Acids (FISH OIL) 1000 MG Capsule [...] as of this encounter (statuses as of 10/25/2021) Active Problems Problem Noted Date Adenocarcinoma of esophagus metastatic t o intra-abdominal lymph node 08/17/2021 Kidney stones 08/16/2021 RINA (stress urinary incontinence), male 08/16/2021 Renal cyst, acquired 08/16/2021 Encounter for antineoplastic chemotherap y 08/04/2021 Malignant neoplasm of overlapping sites of stomach 07/21/2021 Prostate cancer 12/31/2013 Other ventral hernia without mention of obstruction or gangrene 05/03/2012 documented as of this encounter (statuses as of 10/25/2021) Resolved Problems Problem Noted Date Resolved Date Elevated prostate specific antigen (PSA) 011 12/31/2013 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 PET scan scheduled prior to next cycle of treatment, per Dr. Melo. documented in this encounter Plan of Treatment Upcoming Encounters Date Type Specialty Care Team Description 10/26/2021 Imaging Radiology 11/01/2021 Laboratory Laboratory [place] [place] [facility] Scenery 200 [facility] [place] [address] 11/02/2021 Office Visit Hematology Oncology Nik Melo MD 200 [place] [address] 11/02/2021 Hem/Onc Treatment Hematology Oncology [place], Chair 1 Hem Onc Scene 200 [facility] [place] [address] 12/14/2021 Office Visit Urology Cm Rhodes MD [address] [address] [place] [address] Health Maintenance Due Date [...] of this encounter Implants Implanted Type Area Senior Sustainability Consultant Device Identifier Shelf Expiration Date Model / Serial / Lot Cath Power Port 6fr Clearvue - [id number] Implanted:Qty : 1 on 08/10/2021 by Alexander Rodriguez MD [place] [facility] [place] Left: Subclavian CR BARD : PERIPHERAL VASCULAR 08/21/2021 [id number] / / documented as of this encounter [...] MAR Action Action Date Dose Rate Site Fluorouracil (5-Fu) 4,650 mg for Home Infusion 4,650 mg (rounded from 4,656 mg = 2,400 mg/m2 1.94 m2 Treatment Plan BSA from Recorded weight), Intravenous, Administer over 46 Hours, Home Infusion Pharmacy to specify base solution and volume. Total Zfxr=0708 mg/m2 for 46 hours, ONCE, 1 dose, On Sun10/25/21 at 1300 documented in this encounter Advance Directives Documents on File Type Date Recorded Patient Pot Sander Expl 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 Care Teams Soda Dry House Operator Relationship Specialty Start Date End Date Hortencia Leal PA-C [address] [facility] [address] PCP - General Physician Supervisor Soakers 02/08/18 documented as of this encounter
--- OUTSIDE RECORDS SUMMARY | 2023-06-27 07:57 | External Medical Summary ---
Author Name Unknown Address Unknown Organization K09:[facility] [address] Laboratory Report Ordering Provider Test Date Status SHAY CH 10/24/2021 10:28:46 Final Observation Date Value Abnormality Reference (Units ) Status Nucleated erythrocytes/100 leukocytes [Ratio] in Blood by Automated count 10/24/2021 10:28:46 Final Anisocytosis [Presence] in Blood by Light microscopy 10/24/2021 10:28:46 Slight Abnormal None Seen Final Elliptocytes [Presence] in Blood by Light microscopy 10/24/2021 10:28:46 Few Abnormal None Seen Final Hypochromia [Presence] in Blood by Light microscopy 10/24/2021 10:28:46 Slight Abnormal None Seen Final Dacrocytes [Presence] in Blood by Light microscopy 10/24/2021 10:28:46 Few Abnormal None Seen Final Performing Location [facility] [address]
--- OUTSIDE RECORDS SUMMARY | 2023-06-27 07:57 | External Medical Summary | Summary of Care ---
Author Name Unknown Organization [place] [address] Care Team Providers Care Resolute Professional Name Role Phone Hortencia Leal PA-C Primary Care Provid er Reason for Visit * Reason Comments Outpatient Testing Encounter Details Date Type Department Care Team Description 10/24/2021 Laboratory Laboratory [facility] [place] [address] [place] [address] [facility] 200 [facility] [place] [address] Malignant neoplasm of overlapping sites of stomach [...] times a day. 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) 10/24/2021 10:28 AM EST COMPREHENSIVE METABOLIC PANEL Lab STAT 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) 10/24/2021 10:28 AM EST CBC Lab STAT 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) 10/24/2021 10:28 AM EST DIFFERENTIAL, AUTOMATED Lab STAT 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) 10/24/2021 10:28 AM EST Health Maintenance Due Date Last [...] of this encounter Implants Implanted Type Area Furnace Installer Device Identifier Shelf Expiration Date Model / Serial / Lot Cath Power Port 6fr Clearvue - [id number] Implanted:Qty : 1 on 08/10/2021 by Alexander Rodriguze MD at OR [facility] Left: Subclavian CR BARD : PERIPHERAL VASCULAR 08/21/2021 [id number] / / documented as of this encounter Visit Diagnoses Diagnosis 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 Care Teams Resolute Professional Relationship Specialty Start Date End Date Hortencia Leal PA-C [address] [place] [address] PCP - General Physician Throw Out Clerk 02/08/18 documented as of this encounter
--- OUTSIDE RECORDS SUMMARY | 2023-06-27 07:57 | External Medical Summary | Summary of Care ---
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 As needed 0 Active [place]-3 Fatty Acids (FISH OIL) 1000 MG Capsule [...] Sign Reading Time Taken Comments Blood Pressure 167/68 10/25/2021 8:54 AM EST Pulse 66 10/25/2021 8:54 AM EST Temperature 35.5 C (95.9 F) 10/25/2021 8:54 AM ES T Respiratory Rate 16 10/25/2021 8:54 AM EST Oxygen Saturation 96% 10/25/2021 8:54 AM EST Inhaled Oxygen Concentration - - Weight 77.1 kg (170 lb) 10/25/2021 8:54 AM EST Height - - Body Mass Index 29.18 08/10/2021 8:15 AM EDT documented in this encounter Progress Notes * Nik Melo MD - 10/25/2021 9:11 AM EST Outpatient Consult Note Data Source: Patient, Epic record. Data Source: Patient, Epic record. 10/25/2021 9:11 AM Heath [place] [id number] 75 year old Patient Encounter: HEMATOLOGY/ONCOLOGY [facility] Cancer Diagnosis: Metastatic esophageal cancer Current Treatment: [...] was consistent with adenocarcinoma moderately differentiated overall Paradox score was 3+4=7with perineural invasion. Histopathology was [...] radical prostatectomy: Adenocarcinoma, moderately poorly differentiated Overall Paradox score 3+4=7 High grade prostatic intraepithelial neoplasia [...] 0.6 cm HISTOLOGIC TYPE: Adenocarcinoma HISTOLOGIC GRADE (Paradox): Primary pattern is: Grade 3: single acini of variable size and separation, cribriform and papillarypatterns Secondary pattern is: Grade 3: single acini of variable size and separation, cribriform and papillary patterns Juan Score (primary + secondary) = 5-6: Moderately well differentiated Nodule #2, involves: right lateral apex and right apex Dimensions: 0.9 x 0.3 x 0.9 cm HISTOLOGIC TYPE: Adenocarcinoma HISTOLOGIC GRADE (Paradox): Primary pattern is: Grade 3: single acini of variable size and separation, cribriform and papillarypatterns Secondary pattern is: Grade 3: single acini of variable size and separation, cribriform and papillary patterns Paradox Score (primary + secondary) = 5-6: Moderately [...] + secondary) = 7: Moderately poorly differentiated Paradox Score (primary + secondary) = 8-10: Poorly [...] Final Interpretation: Benign mesothelial cells. Interval History: His about couple of weeks ago. Complain of generalized weakness and poor appetite. He hadepisode of nausea which responded well to Zofran. He denies any headache, dizziness blurred vision,chest pain, palpitation abdominal pain or distention, bleeding, bruising. His swallowing has improved. LABS/IMAGING: Last blood test were done yesterday shows WBC count 3.57, hemoglobin 9.9 and platelet count 167. Creatinine is 1.9 which is stable and rest of the electrolytes and LFTs are within normal limit. REVIEW OF SYSTEMS: General: [...] mouth 2 times a day. As needed [place]-3 Fatty Acids (FISH OIL) 1000 MG Capsule [...] Hctz [Hydrochlorothiazide] hypercalcemia PHYSICAL EXAMINATION: General Appearance: Weak appearing patient in no acute distress BP 167/68 (BP Site: Left Arm, BP Position: Sitting, BP Cuff Size: Regular) | Pulse 66 | Temp 35.5 C (95.9 F) (Infrared ) | Resp 16 | Wt 77.1 kg (170 lb) | SpO2 96% | BMI 29.18 kg/m | BSA 1.87 m Vitals reviewed. HEENT: No oral or [...] nodule which is positive for metastatic disease. Basedon the available information now patient has metastatic esophageal cancer and histopathology is consistent with the adenocarcinoma her 2 Kristen is negative. Currently patient is receiving FOLFOX and so far received 3 cycles with overall good tolerance. He lost about 10 lb since the start of the chemotherapy. His recently and he is complaining of generalized weakness with poor appetite. PDL1 expression was 5%. For now I will hold his chemotherapy and postponed to next week. Also repeat the PET scan to evaluate the response and decide about further management. If he has a good response I will continue FOLFOX and add nivolumab PLAN: As above. Patient will return to clinic in 1 week with blood test including CBC and CMP and PET scan further management will depend on the response. The patient voiced understanding of all of [...] Nursing Notes * Ajit Ferguson CMA - 10/25/2021 8:54 AM EST Patient identifed by name and birthdate Do you have any concerns about pain management for today's visit? No Living Will or Advance Directive for Health Care as noted on the problem list. [facility] is a way you can talk to your provider on line through e-mail. Would you like to sign up? I can activate it for you? ALREADY ACTIVE Filed Vitals: 10/25/21 0854 BP: 167/68 Pulse: 66 Resp: 16 Temp: 35.5 C (95.9 F) TempSrc: Infrared SpO2: 96% Weight: 77.1 kg (170 lb) Pt noted that he does not have much of an appetite. Pt stated that he has been dealing with constipation. Pt noted that he has been taking MiraLax for constipation. documented in this encounter Plan of Treatment Upcoming Encounters Date Type Specialty Care Team Description 10/26/2021 Imaging Radiology 11/01/2021 Laboratory Laboratory [facility] [address] [place] [address] 11/02/2021 Office Visit Hematology Oncology Nik Melo MD 200 [place] [address] 11/02/2021 Hem/Onc Treatment Hematology Oncology Trade, Chair [address] [place] [address] 12/14/2021 Office Visit Urology Cm Rhodes MD [address] [place] [address] [place] [address] Scheduled Orders Name Type Priority Associated Diagnoses Orde r Schedule PET CT SKULL BASE TO MID-THIGH Medical Imaging Routine 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) Expected: 11/01/2021, Expires: 11/25/2022 Health Maintenance Due Date Last Done Comments [...] of this encounter Implants Implanted Type Area Supervisor Electric Motor Testing Device Identifier Shelf Expiration Date Model / Serial / Lot Cath Power Port 6fr Clearvue - [id number] Implanted:Qty : 1 on 08/10/2021 by Alexander Rodriguez MD at OR [facility] Left: Subclavian CR BARD : PERIPHERAL VASCULAR 08/21/2021 [id number] / / documented as of this encounter Visit Diagnoses Diagnosis 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 Care Teams Cleaner And Polisher Relationship Specialty Start Date End Date Hortencia Leal PA-C [address] [facility] [address] PCP - General Physician Plate Glass Installer 02/08/18 documented as of this encounter"
--- OUTSIDE RECORDS SUMMARY | 2023-06-27 07:57 | External Medical Summary | Summary of Care ---
Author Name Unknown Organization [place] [address] Care Team Providers Care Sightseeing Guide Name Role Phone Hortencia Leal PA-C Primary Care Provid er Reason for Visit * Reason Onset Date Comments Medication Refill 10/17/2021 Encounter Details Date Type Department Care Team Description 10/17/2021 Telephone Hematology/Oncology [facility] [place] [facility] [address] Nik Melo MD 200 [place] [address] Medication Refill Allergies Active Allergy Reactions Severity Noted Date [...] times a day. As needed 0 Active [place]-3 Fatty Acids (FISH OIL) 1000 MG Capsule [...] refill of: Ondansetron HCL 8mg sent to: [facility] documented in this encounter Plan of Treatment Upcoming Encounters Date Type Specialty Care Team Description 10/24/2021 Laboratory Laboratory [facility] 200 [facility] [place] [address] 10/25/2021 Office Visit Hematology Oncology Nik Melo MD 200 [facility] [place] [address] 10/25/2021 Hem/Onc Treatment Hematology Oncology Maddy, Chair 8 Hem Onc [place] 200 [facility] [place] [address] 12/14/2021 Office Visit Urology Cm Rhodes MD [address] [place] [address] [place] [address] Health Maintenance Due Date [...] of this encounter Implants Implanted Type Area Budget Director Device Identifier Shelf Expiration Date Model / Serial / Lot Cath Power Port 6fr Clearvue - [id number] Implanted:Qty : 1 on 08/10/2021 by Alexander Rodriguez MD at [facility] Left: Subclavian CR BARD : PERIPHERAL VASCULAR 08/21/2021 [id number] / / documented as of this encounter Advance Directives Documents on File Type Date Recorded Patient Vc++ Developer Expl 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 Care Teams Sightseeing Guide Relationship Specialty Start Date End Date Hortencia Leal PA-C [address] [place] [address] PCP - General Physician Art Teacher 02/08/18 documented as of this encounter
--- OUTSIDE RECORDS SUMMARY | 2023-06-27 07:57 | External Medical Summary | Summary of Care ---
Author Name Unknown Organization [place] [address] Care Team Providers Care Biodiesel Process Control Technician Name Role Phone Hortencia Leal PA-C Primary Care Provid er Encounter Details Date Type Department Care Team Description 10/25/2021 Telephone Hematology/Oncology [facility] 200 [place] [address] Nik Melo MD 200 [facility] [place] [address] Allergies Active Allergy Reactions Severity Noted Date [...] times a day. As needed 0 Active [place]-3 Fatty Acids (FISH OIL) 1000 MG Capsule [...] * Telephone Encounter - TANI Johnson - 10/25/2021 9:40 AM EST Patient scheduled for a PET/CT SCAN @ on 10/26/21 @ 7:45am. Patient given prep instructions. documented in this encounter Plan of Treatment Upcoming Encounters Date Type Specialty Care Team Description 10/26/2021 Imaging Radiology 11/01/2021 Laboratory Laboratory [facility] 200 [facility] [place] [address] 11/02/2021 Office Visit Hematology Oncology Nik Melo MD 200 [facility] [address] 11/02/2021 Hem/Onc Treatment Hematology Oncology [place], Chair 1 Hem Onc Scene 200 [facility] [place] [address] 12/14/2021 Office Visit Urology Cm Rhodes MD [address] [place] [address] [place] [address] Health Maintenance Due Date [...] of this encounter Implants Implanted Type Area Bedspring Assembler Device Identifier Shelf Expiration Date Model / Serial / Lot Cath Power Port 6fr Clearvue - [id number] Implanted:Qty : 1 on 08/10/2021 by Alexander Rodriguez MD at OR [facility] Left: Subclavian CR BARD : PERIPHERAL VASCULAR 08/21/2021 [id number] / / documented as of this encounter Advance Directives Documents on File Type Date Recorded Patient Tuber Machine Operator Expl anation Advanced Directive Advanced [...] and were consensually agreed upon. Care Teams Biodiesel Process Control Technician Relationship Specialty Start Date End Date Hortencia Leal PA-C [address] [facility] [address] PCP - General Physician Private Branch Exchange Service Advisor 02/08/18 documented as of this encounter
--- OUTSIDE RECORDS SUMMARY | 2023-06-27 07:57 | External Medical Summary | Summary of Care ---
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) Procedures NE LEUCOVORIN CALCIUM INJECTION NE PALONOSETRON HCL NE FLUOROURACIL INJECTION NE OXALIPLATIN Nik Melo MD 200 [facility] [place] [address] Anc Hem/Onc [place] [address] [place] [address] [phone] Referral ID Status Reason Start Date Expiration Date V isits Requested Visits Authorized [id number] Authorized 08/19/2021 08/19/2022 99 99 Encounter Details Date Type Department Care Team Description 10/04/2021 Hem/Onc Treatment Hematology/Oncology Treatment, [place] [address] [place] [address] Maddy, Chair 1 Hem Onc [facility] [address] 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 As needed 0 Active [place]-3 Fatty Acids (FISH OIL) 1000 MG Capsule [...] as of this encounter (statuses as of 10/04/2021) Active Problems Problem Noted Date Adenocarcinoma of esophagus metastatic t o intra-abdominal lymph node 08/17/2021 Kidney stones 08/16/2021 RINA (stress urinary incontinence), male 08/16/2021 Renal cyst, acquired 08/16/2021 Encounter for antineoplastic chemotherap y 08/04/2021 Malignant neoplasm of overlapping sites of stomach 07/21/2021 Prostate cancer 12/31/2013 Other ventral hernia without mention of obstruction or gangrene 05/03/2012 documented as of this encounter (statuses as of 10/04/2021) Resolved Problems Problem Noted Date Resolved Date Elevated prostate specific antigen (PSA) 011 12/31/2013 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 documented as of this encounter (statuses as of 10/04/2021) Immunizations Name Administration Dates Next Due COVID-19 [...] Sign Reading Time Taken Comments Blood Pressure 150/83 10/04/2021 11:02 AM EST Pulse 71 10/04/2021 11:02 AM EST Temperature 36.9 C (98.4 F) 10/04/2021 11:[address] Respiratory Rate 16 10/04/2021 11:02 AM EST Oxygen Saturation 97% 10/04/2021 11:02 AM EST Inhaled Oxygen Concentration - - Weight 80.8 kg (178 lb 3.2 oz) 10/04/2021 11:02 AM EST Height - - Body Mass Index 30.59 08/10/2021 8:15 AM EDT documented in this encounter Nursing Notes * Andra Solitario RN - 10/04/2021 3:35 PM EST Functional status at today's visit: [...] pump. He was discharged in stable condition. No coverage needed. * Andra Solitario RN - 10/04/2021 11:42 AM EST Chair 1 Pt was seen by ANTHONY ALVARENGA yesterday, see office notes. VAD accessed without difficulty, fluids infusing. Safety and Risk for Injury Patient will remain free from injury. Ensure appropriate safety devices are available. Provide and maintain safe environment. documented in this encounter Plan of Treatment Upcoming Encounters Date Type Specialty Care Team Description 10/06/2021 Immunization/Injection Hematology Oncolog y Nurse, Med [address] [place] [address] [address] 10/24/2021 Laboratory Laboratory Enrique Castañeda [facility] [address] [place] [address] [address] 10/25/2021 Office Visit Hematology Oncology Nik Melo MD 200 [facility] [address] 10/25/2021 Hem/Onc Treatment Hematology Oncology [place], Chair [address] [place] [address] 12/14/2021 Office Visit Urology Cm Rhodes MD [address] [address] Health Maintenance Due Date Last [...] of this encounter Implants Implanted Type Area Engine Designer Device Identifier Shelf Expiration Date Model / Serial / Lot Cath Power Port 6fr Clearvue - [id number] Implanted:Qty : 1 on 08/10/2021 by Alexander Rodriguez MD at [facility] Left: Subclavian CR BARD : PERIPHERAL VASCULAR 08/21/2021 [id number] / / documented as of this encounter [...] Intravenous, at 50 mL/hr, CONTINUOUS, Starting on Sun10/04/21 at 1145, Until Sun10/04/21 at 2144 Start Infusion 10/04/2021 11:00 AM EST 500 mL 50 mL/hr diphenhydrAMINE (Benadryl) inj 50 mg 50 mg, IV Push, ONCE PRN Other, Hypersensitivity Reaction, Starting on Sun10/04/21 at 1106, Until Sun10/05/21 at 1105, For 24 hours EPINEPHrine 1 MG/ML inj 0.3 mg 0.3 mg, Intramuscular, ONCE PRN Other, Hypersensitivity Reaction or Anaphylaxis, Starting on Sun10/04/21 at 1106, Until Sun10/05/21 at 1105, For 24 hours hEParin 100 UNIT/ML Lock Flush inj 500 Units 500 Units (5 mL), IV Lock, PRN Other, IV Flush, Starting on Sun10/04/21 at 1106, Until Sun10/05/21 at 1105, For 24 hours, Do not flush if lock, PICC, or central line not in place; IV infusing or unable to flush. Hydrocortisone Na Succinate PF (Solu-Cortef) inj 100 mg 100 mg, IV Push, ONCE PRN Other, Hypersensitivity Reaction, Starting on Sun10/04/21 at 1106, Until Sun10/05/21 at 1105, For 24 hours sodium chloride 0.9 % flush/inj 10 mL 10 mL, IV Push, PRN Other, IV Flush, Starting on Sun10/04/21 at 1106, Until Sun10/05/21 at 1105, For 24 hours, Do not flush if lock, PICC, or central line not in place; IV infusing or unable to flush. Inactive Administered Medications - up to 3 most recent administrations Medication Order MAR Action Action Date Dose Rate Site Dexamethasone (Decadron) tab 12 mg 12 mg, Oral, ONCE, On Sun10/04/21 at 1145, For 1 dose Given 10/04/2021 11:27 AM EST 12 mg Fluorouracil (5-Fu) 4,650 mg for Home Infusion 4,650 mg (rounded from 4,656 mg = 2,400 mg/m2 1.94 m2 Treatment Plan BSA from Recorded weight), Intravenous, Administer over 46 Hours, Home Infusion Pharmacy to specify base solution and volume. Total Lvzd=5933 mg/m2 for 46 hours, ONCE, 1 dose, On Sun10/04/21 at 1600 Start Infusion 10/04/2021 2:30 PM EST 4,650 mg Fluorouracil (5-Fu) inj 775 mg 775 mg (rounded from 776 mg = 400 mg/m2 1.94 m2 Treatment Plan BSA from Recorded weight), IV Push, ONCE, 1 dose, On Sun10/04/21 at 1545 Given 10/04/2021 2:21 PM EST 775 mg leucovorin calcium 800 mg in D5W 250 mL INFUSION 800 mg (rounded from 776 mg = 400 mg/m2 1.94 m2 Treatment Plan BSA from Recorded weight), IV Piggyback, at 125 mL/hr Administer over 120 Minutes, ONCE, 1 dose, On Sun10/04/21 at 1345, Before 5-FU Start Infusion 10/04/2021 12:08 PM EST 800 mg 125 mL/hr Oxaliplatin (Eloxatin) 150 mg in D5W 500 mL infusion 150 mg (rounded from 164.9 mg = 85 mg/m2 1.94 m2 Treatment Plan BSA from Recorded weight), IV Piggyback, at 250 mL/hr Administer over 120 Minutes, Flush with D5W only!, ONCE, 1 dose, On Sun10/04/21 at 1145 Start Infusion 10/04/2021 12:07 PM EST 150 mg 250 mL/hr palonosetron (Aloxi) inj SOLN 0.25 mg 0.25 mg, IV Push, ONCE, On Sun10/04/21 at 1145, For 1 dose, Restricted per S antiemetic guidelines Given 10/04/2021 11:27 AM EST 0.25 mg documented in this encounter Advance Directives Documents on File Type Date Recorded Patient Threshing Operator Expl 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 Care Teams Laydown Machine Operator Relationship Specialty Start Date End Date Hortencia Leal PA-C [address] [facility] [address] PCP - General Physician Flux Core Welder 02/08/18 documented as of this encounter
--- OUTSIDE RECORDS SUMMARY | 2023-06-27 07:58 | External Medical Summary | Summary of Care ---
Author Name Unknown Organization [place] [address] Care Team Providers Care Senior Program Manager Name Role Phone Hortencia Leal PA-C Primary Care Provid er Reason for Visit * Reason Onset Date Comments Information 09/13/2021 Encounter Details Date Type Department Care Team Description 09/13/2021 Telephone Hematology/Oncology Treatment, [address] [place] [address] Nik Melo MD 200 [facility] [place] [address] Information Allergies Active Allergy Reactions Severity Noted Date Comments Amlodipine 11/02/2020 dizziness Codeine Sulfate Other (Please comment) 10/26/19 11 hyperactivity Hydrochlorothiazide 11/02/2020 hypercalcemia documented as of this encounter (statuses as of 09/16/2021) Medications Medication Sig Dispensed Refills Start Date [...] TABS Take 40 mg by mouth. 0 A ctive Cholecalciferol (VITAMIN D-3) 1000 units Capsule Take 1,000 Units by mouth daily. 0 Active Aspirin 81 MG Tablet Take 81 mg by mouth daily. 0 Active meclizine (ANTIVERT) 12.5 MG Tablet Take 12.5 mg by mouth 2 times a day. 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 30 Tab 0 08/03/2021 Active Additional Information Patient not taking. Reported on 08/10/2021 Ondansetron HCl 8 MG Oral TabletIndications:Ma lignant [...] Information Patient not taking. 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 Patient aware. * Addendum Note - Venita Schrader RN - 09/13/2021 2:19 PM EST Addended by: VENITA SCHRADER on: 09/13/2021 02:19 PM Modules accepted: Orders * Telephone Encounter - Venita Schrader RN - 09/13/2021 2:08 PM EST Received TT from [facility]- they can take patient tomorrow at noon. Reviewed with Dr Melo- he would like treatment to be delayed. Patient does NOT need to repeat ANY labs prior. Scheduling: - please CANCEL appts tomorrow - please reschedule 3 hour appt on 503 schedule "C2D1 FOLFOX- Vitaline- use labs from 09/13/21" fornext week Dr Melo would like patient to be rescheduled for Sunday. * Telephone Encounter - Venita Schrader RN - 09/13/2021 1:53 PM EST Called patient- he will come to the office today at 3pm for transfusion consent. * Telephone Encounter - Venita Schrader RN - 09/13/2021 1:18 PM EST Per Lorie: "Hemoglobin 7.2. He will need blood transfusion" If transfusion can be done tomorrow, ok to get treatment if this can be fit in to schedule. If transfusion cannot be fit in as an outpatient or if Called [facility], spoke to [facility] who asked that I send her a TT with patient information and she will let me know when/ if they could fit patient in. Left messages on both home and mobile numbers for patient to return call to office. documented in this encounter Plan of Treatment Upcoming Encounters Date Type Specialty Care Team Description 09/20/2021 Hem/Onc Treatment Hematology Oncology [place], Chair 11 Hem Onc [facility] 200 [place] [address] 12/14/2021 Office Visit Urology Cm Rhodes MD [address] [place] [address] [place] [address] Scheduled Orders Name Type Priority Associated Diagnoses Orde r Schedule TYPE AND SCREEN Lab Routine Anemia Expected: 09/13/2021, Expires: 10/13/2022 Health Maintenance Due Date Last Done Comments [...] SCREEN EVERY 3 YRS-AGE 45 AND ABOVE 09/13/2024 09/13/2021, 08/29/2021, 08/03/2021, Additional history exists Influenza Vaccine (FLU shot) Completed 06/2021, 08/21/2018, 07/14/2017, Additional history exists MENINGOCOCCAL (MENACTRA/MENVEO) Aged Out No longer eligible based on patient's age to complete this topic documented as of this encounter Implants Implanted Type Area Substation Designer Device Identifier Shelf Expiration Date Model / Serial / Lot Cath Power Port 6fr Clearvue - [id number] Implanted:Qty : 1 on 08/10/2021 by Alexander Rodriguez MD at OR 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 Care Teams Senior Program Manager Relationship Specialty Start Date End Date Hortencia Leal PA-C [address] [facility], [place] [address] PCP - General Physician Collator Hand 02/08/18 documented as of this encounter
--- OUTSIDE RECORDS SUMMARY | 2023-06-27 07:58 | External Medical Summary | Summary of Care ---
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) Procedures AR LEUCOVORIN CALCIUM INJECTION AR PALONOSETRON HCL AR FLUOROURACIL INJECTION AR OXALIPLATIN Nik Melo MD 200 [facility] [place] [address] Anc Hem/Onc [place] [address] [place] [phone] Referral ID Status Reason Start Date Expiration Date V isits Requested Visits Authorized [id number] Authorized 08/19/2021 08/19/2022 99 99 Encounter Details Date Type Department Care Team Description 09/20/2021 Hem/Onc Treatment Hematology/Oncology Treatment, [place] [address] [facility] [place] [address] Maddy, Chair 11 Hem On[address] [place] [address] 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 Kidney stones 08/16/2021 RINA (stress urinary incontinence), male 08/16/2021 Renal cyst, acquired 08/16/2021 Encounter for antineoplastic chemotherap y 08/04/2021 Malignant neoplasm of overlapping sites of stomach 07/21/2021 Prostate cancer 12/31/2013 Other ventral hernia without mention of obstruction or gangrene 05/03/2012 documented as of this encounter (statuses as of 09/20/2021) Resolved Problems Problem Noted Date Resolved Date Elevated prostate specific antigen (PSA) 011 12/31/2013 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 documented as of this encounter (statuses as of 09/20/2021) Immunizations Name Administration Dates Next Due COVID-19 [...] Sign Reading Time Taken Comments Blood Pressure 152/84 09/20/2021 9:35 AM EST Pulse 61 09/20/2021 9:35 AM EST Temperature 36.7 C (98.1 F) 09/20/2021 9:35 AM ES T Respiratory Rate 16 09/20/2021 9:35 AM EST Oxygen Saturation 99% 09/20/2021 9:35 AM EST Inhaled Oxygen Concentration - - Weight 81.5 kg (179 lb 9.6 oz) 09/20/2021 9:35 A M EST Height - - Body Mass Index 30.83 08/10/2021 8:15 AM EDT documented in this encounter Nursing Notes * Eboni Stevens RN - 09/20/2021 2:00 PM EST Oxali and leucovorin infusions are complete. Pt tolerated well. Administered 5FU push, pt toleratedwell, assist by Maricruz Solitario. Pt had blood return accessed, +blood return. Pt connected to 5FU pump and discharged with infusion running, again assist by Maricruz Solitario RN. Pt has no further concerns today. Goals: pt to remain free from injury Possible barriers to meeting goals: ambulation with IV pole/tubing Stability of the patient: Moderately unstable - medium risk of patient condition declining or worsening Summary regarding today's goals: Met: pt remained free from injury Pt discharged in stable condition. * Eboni Stevens RN - 09/20/2021 1:09 PM EST Ch 11. Pt arrived today for FOLFOX infusion. Per Venita John RN note, Dr. Lorie linn to use labs from 09/13, pt is post transfusion of PRBC. Pt also denies s/s of bleeding. Pt reports he is feeling better, he states a little less tired. Pt denies SOB. Pt denies N/V and denies bowel issues. He states he is eating well. Chemo agents FOLFOX Appetite good Nausea/Vomiting denies Diarrhea denies Constipation denies Mucositis denies Fatigue intermittent, takes naps and rest periods Bleeding denies Infection denies Rash denies Numbness tingling denies Pain denies Radiation no ABN Labs see note above, temitope to use labs from 09/13/21 Alt in Tx: no Return in 2 day Safety and Risk for Injury Patient will remain free from injury. Ensure appropriate safety devices are available. Provide and maintain safe environment. documented in this encounter Plan of Treatment Upcoming Encounters Date Type Specialty Care Team Description 09/22/2021 Immunization/Injection Hematology Oncolog y Nurse, Med [address] [place] [address] 10/03/2021 Laboratory Laboratory [facility] [address] [place] [address] 10/03/2021 Office Visit Hematology Oncology Emperatriz Blackman CRNP [address] [place] [address] 10/04/2021 Hem/Onc Treatment Hematology Oncology Maddy, Chair 1 Hem Onc [place] [address] [place] [address] 12/14/2021 Office Visit Urology Cm Rhodes MD [address] [address] Health Maintenance Due Date Last [...] this encounter Implants Implanted Type Area Forest Practices Field Coordinator Device Identifier Shelf Expiration Date Model / Serial / Lot Cath Power Port 6fr Clearvsebastian - [id number] Implanted:Qty : 1 on 08/10/2021 by Alexander Rodriguez MD at OR [facility] Left: Subclavian CR BARD : PERIPHERAL VASCULAR 08/21/2021 [id number] / / documented as of this encounter [...] Intravenous, at 50 mL/hr, CONTINUOUS, Starting on Sun09/20/21 at 1000, Until Sun09/20/21 at 1959 Start Infusion 09/20/2021 9:50 AM EST 500 mL 50 mL/hr diphenhydrAMINE (Benadryl) inj 50 mg 50 mg, IV Push, ONCE PRN Other, Hypersensitivity Reaction, Starting on Sun09/20/21 at 0924, Until Sun09/21/21 at 0923, For 24 hours EPINEPHrine 1 MG/ML inj 0.3 mg 0.3 mg, Intramuscular, ONCE PRN Other, Hypersensitivity Reaction or Anaphylaxis, Starting on Sun09/20/21 at 0924, Until Sun09/21/21 at 0923, For 24 hours hEParin 100 UNIT/ML Lock Flush inj 500 Units 500 Units (5 mL), IV Lock, PRN Other, IV Flush, Starting on Sun09/20/21 at 0924, Until Sun09/21/21 at 0923, For 24 hours, Do not flush if lock, PICC, or central line not in place; IV infusing or unable to flush. Hydrocortisone Na Succinate PF (Solu-Cortef) inj 100 mg 100 mg, IV Push, ONCE PRN Other, Hypersensitivity Reaction, Starting on Sun09/20/21 at 0924, Until Sun09/21/21 at 0923, For 24 hours sodium chloride 0.9% flush/inj 10 mL 10 mL, IV Push, PRN Other, IV Flush, Starting on Sun09/20/21 at 0924, Until Sun09/21/21 at 0923, For 24 hours, Do not flush if lock, PICC, or central line not in place; IV infusing or unable to flush. Inactive Administered Medications - up to 3 most recent administrations Medication Order MAR Action Action Date Dose Rate Site Dexamethasone (Decadron) tab 12 mg 12 mg, Oral, ONCE, On Sun09/20/21 at 1000, For 1 dose Given 09/20/2021 10:16 AM EST 12 mg Fluorouracil (5-Fu) 4,650 mg for Home Infusion 4,650 mg (rounded from 4,656 mg = 2,400 mg/m2 1.94 m2 Treatment Plan BSA from Recorded weight), Intravenous, Administer over 46 Hours, Home Infusion Pharmacy to specify base solution and volume. Total Fyqa=1559 mg/m2 for 46 hours, ONCE, 1 dose, On Sun09/20/21 at 1300 Start Infusion 09/20/2021 1:00 PM EST 4,650 mg Fluorouracil (5-Fu) inj 775 mg 775 mg (rounded from 776 mg = 400 mg/m2 1.94 m2 Treatment Plan BSA from Recorded weight), IV Push, ONCE, 1 dose, On Sun09/20/21 at 1300 Given 09/20/2021 1:04 PM EST 775 mg leucovorin calcium 800 mg in D5W 250 mL INFUSION 800 mg (rounded from 776 mg = 400 mg/m2 1.94 m2 Treatment Plan BSA from Recorded weight), IV Piggyback, at 125 mL/hr Administer over 120 Minutes, ONCE, 1 dose, On Sun09/20/21 at 1045, Before 5-FU Start Infusion 09/20/2021 10:52 AM EST 800 mg 125 mL/hr Oxaliplatin (Eloxatin) 150 mg in D5W 500 mL infusion 150 mg (rounded from 164.9 mg = 85 mg/m2 1.94 m2 Treatment Plan BSA from Recorded weight), IV Piggyback, at 250 mL/hr Administer over 120 Minutes, Flush with D5W only!, ONCE, 1 dose, On Sun09/20/21 at 1045 Start Infusion 09/20/2021 10:52 AM EST 150 mg 250 mL/hr palonosetron (Aloxi) inj SOLN 0.25 mg 0.25 mg, IV Push, ONCE, On Sun09/20/21 at 1000, For 1 dose, Restricted per GHS antiemetic guidelines Given 09/20/2021 10:16 AM EST 0.25 mg documented in this encounter Advance Directives Documents on File Type Date Recorded Patient Senior Ios Developer Expl 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 Care Teams Cream Hauler Relationship Specialty Start Date End Date Hortencia Leal PA-C [address] [facility] [address] PCP - General Physician Laminator Hand 02/08/18 documented as of this encounter
--- OUTSIDE RECORDS SUMMARY | 2023-06-27 07:58 | External Medical Summary | Summary of Care ---
Author Name Unknown Organization [place] [address] Care Team Providers Care Training And Development Rep Name Role Phone Hortencia Leal PA-C Primary Care Provid er Reason for Visit * Reason Onset Date Comments Information 09/13/2021 Encounter Details Date Type Department Care Team Description 09/13/2021 Telephone Hematology/Oncology Treatment, [address] [place] [address] Nik Melo MD 200 [place] [address] Information Allergies Active Allergy Reactions Severity Noted Date Comments Amlodipine 11/02/2020 dizziness Codeine Sulfate Other (Please comment) 10/26/19 11 hyperactivity Hydrochlorothiazide 11/02/2020 hypercalcemia documented as of this encounter (statuses as of 09/14/2021) Medications Medication Sig Dispensed Refills Start Date [...] times a day. 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 Kidney stones 08/16/2021 RINA (stress urinary incontinence), male 08/16/2021 Renal cyst, acquired 08/16/2021 Encounter for antineoplastic chemotherap y 08/04/2021 Malignant neoplasm of overlapping sites of stomach 07/21/2021 Prostate cancer 12/31/2013 Other ventral hernia without mention of obstruction or gangrene 05/03/2012 documented as of this encounter (statuses as of 09/14/2021) Resolved Problems Problem Noted Date Resolved Date Elevated prostate specific antigen (PSA) 011 12/31/2013 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 documented as of this encounter (statuses as of 09/14/2021) Immunizations Name Administration Dates Next Due COVID-19 [...] Hematology Oncology [place], Chair 11 Hem Onc [facility] 200 [place] [address] 12/14/2021 Office Visit Urology Cm Rhodes MD [address] [place] [address] [place] [address] Scheduled Orders Name Type Priority Associated [...] of this encounter Implants Implanted Type Area Anaesthesiologist Device Identifier Shelf Expiration Date Model / Serial / Lot Cath Power Port 6fr Clearvue - [id number] Implanted:Qty : 1 on 08/10/2021 by Alexander Rodriguez MD at OR [place] Left: Subclavian CR BARD : PERIPHERAL VASCULAR 08/21/2021 [id number] / / documented as of this encounter Visit Diagnoses Diagnosis Anemia- Primary Anemia, unspecified documented in this encounter Advance Directives Documents on File Type Date Recorded Patient Dinkey Operator Slate Expl 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 Care Teams Training And Development Rep Relationship Specialty Start Date End Date Hortencia Leal PA-C [address] [facility], [place] [address] PCP - General Physician Assisted Living Assistant 02/08/18 documented as of this encounter
--- OUTSIDE RECORDS SUMMARY | 2023-06-27 07:58 | External Medical Summary ---
Author Name Unknown Address Unknown Organization K09:[facility] [place] [address] Laboratory Report Ordering Provider Test Date Status SHAY CH 10/03/2021 10:25:06 Final Observation Date Value Abnormality Reference (Units ) Status SYNC LEUKOCYTES IN BLOOD BY AUTOMATED COUNT 10/03/2021 10:25:06 4.21 4.00-10.80 (K/uL) Final Segs 10/03/2021 10:25:06 59.2 40.0-75.0 (%) Final Lymphs % 10/03/2021 10:25:06 21.1 18.0-42.0 (%) Final Monos 10/03/2021 10:25:06 13.1 Above high normal 1.0-11.0 (%) Final Eosinophils 10/03/2021 10:25:06 5.9 0.0-6.0 (%) Final Basos 10/03/2021 10:25:06 0.7 0.0-2.0 (%) Final Absolute Segs 10/03/2021 10:25:06 2.49 1.80-7.70 (K/uL) Final Lymphs, absolute 10/03/2021 10:25:06 0.89 Below low normal 1.00-4.80 (K/ul) Final Monos, Abs 10/03/2021 10:25:06 0.55 0.00-1.10 (K/uL) Final Eos, Abs 10/03/2021 10:25:06 0.25 0.00-0.70 (K/uL) Final Basos, Abs 10/03/2021 10:25:06 0.03 0.00-0.20 (K/uL) Final Performing Location [facility] [place] [place] [address]
--- OUTSIDE RECORDS SUMMARY | 2023-06-27 07:58 | External Medical Summary | Summary of Care ---
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 As needed 0 Active [place]-3 Fatty Acids (FISH OIL) 1000 MG Capsule [...] on 08/10/2021 Ondansetron HCl 8 MG Oral TabletIndications :Malignant [...] for Nausea. 60 Tablet 2 10/03/2021 Active Prochlorperazine Maleate 10 MG Oral Tablet (Compazine)Indica tions:Malignant neoplasm of overlapping sites of stomach (HCC) Take 1 Tab by mouth every 6 hours as needed for Nausea. 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 08/17/2021 Kidney stones 08/16/2021 RINA (stress urinary incontinence), male 08/16/2021 Renal cyst, acquired 08/16/2021 Encounter for antineoplastic chemotherap y 08/04/2021 Malignant neoplasm of overlapping sites of stomach 07/21/2021 Prostate cancer 12/31/2013 Other ventral hernia without mention of obstruction or gangrene 05/03/2012 documented as of this encounter (statuses as of 10/03/2021) Resolved Problems Problem Noted Date Resolved Date Elevated prostate specific antigen (PSA) 011 12/31/2013 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 documented as of this encounter (statuses as of 10/03/2021) Immunizations Name Administration Dates Next Due COVID-19 [...] Sign Reading Time Taken Comments Blood Pressure 161/74 10/03/2021 11:12 AM EST Pulse 65 10/03/2021 11:12 AM EST Temperature 36.3 C (97.3 F) 10/03/2021 1 1:12 AM EST Respiratory Rate 16 10/03/2021 11:1 2 AM EST Oxygen Saturation 98% 10/03/2021 11: 12 AM EST Inhaled Oxygen Concentration - - Weight 80.7 kg (177 lb 14.4 oz) 021 11:12 AM EST Height - - Body Mass Index 30.54 08/10/2021 8:15 AM EDT documented in this encounter Progress Notes * LYLE Gilliland - 10/03/2021 11:30 AM EST Hematology/Oncology Outpatient Clinic note [facility] [address] [place] [address] Name: Heath Austin Date: 10/03/2021 CHIEF COMPLAINT: Heath Austin is a 75 year old male patient here today for f/u visit. Patient of Dr. Melo. History from patient chart, Dr. Melo's progress note from 08/17/2021, and confirmed with patient. Cancer Diagnosis: Metastatic esophageal cancer Current Treatment: 08/29/2021 MODIFIED FOLFOX6 5FU 400 mg/m2 then 2400 mg/m2 for 46 hours LCV 400 mg/m2 Oxaliplatin 85 mg/m2 D1 (12 Cycles/14 Days). Previous Treatment: None Oncologic History : 75-year-old [...] Interpretation: NOT AMPLIFIED for HER2 gene status PET scan was done on 07/27/2021 in [...] 0.9 cm HISTOLOGIC TYPE: Adenocarcinoma HISTOLOGIC GRADE ([place]): Primary pattern is: Grade 3: single acini of variable size and separation, cribriform and papillarypatterns Secondary pattern is: Grade 3: single acini of variable size and separation, cribriform and papillary patterns [place] Score (primary + secondary) = 5-6: Moderately well differentiated Nodule #3 (dominant nodule), involves: left mid, left lateral mid, left lateral, left apex, and left lateral apex Dimensions: 2.5 x 1.5 x 2.1 cm HISTOLOGIC TYPE: Adenocarcinoma HISTOLOGIC GRADE ([place]): Primary pattern is: Grade 3: single acini of variable size and separation, cribriform and papillarypatterns Secondary pattern is: Grade 4: irregular masses of acini and fused epithelium, can show clear cells Juan Score (primary + secondary) = 7: Moderately poorly differentiated [place] Score (primary + secondary) = 8-10: Poorly [...] High-grade prostatic intraepithelial neoplasia (PIN) Nodular hyperplasia Clone Block %Positive Tumor Cells Interpretation PD-L1 (SP263) D1 5% Low PD-L1 expression (TPS 1-49%) He denies smoking or drinking. Family history significant for mother was diagnosed of breast cancer and father was diagnosed of colon cancer. HISTORY OF PRESENT ILLNESS: Heath Austin is a 75 year old male with a history as outlined above. Currently here for f/u visit today. Pt had labs today in preparation for C3D1 of chemo. The pt states that he is feeling tired.His is in the hospital and she is dying. He and his son have been spending time w/ her. However, he does want to move forward w/ his chemo tx this week. Pt states that he is tolerating it well w/ only some cold intolerance. He also has some mild nausea controlled w/ Compazine. No fever, vomiting, or diarrhea. He also denies melena and hematochezia. He is eating and drinking adequately. Vitals are stable. Past Medical History: Diagnosis Date Actinic keratosis [...] DIAGNOSTIC performedby Roz Tracey MD at ENDOSCOPY [facility] COLONOSCOPY, DIAGNOSTIC (RECTUM) 07/15/2021 COLONOSCOPY FLEXIBLE PROXIMAL DIAGNOSTIC performed by Roz Tracey MD at ENDOSCOPY [facility] EGD, FLEXIBLE, DIAGNOSTIC 07/15/2021 ESOPHAGOGASTRODUODENOSCOPY (EGD), FLEXIBLE, TRANSORAL, DIAGNOSTIC performed by Roz Tracey MD at [facility]COPY [facility] EGD, W/ENDOSCOPIC US 08/02/2021 ESOPHAGOGASTRODUODENOSCOPY (EGD), FLEXIBLE, TRANSORAL, ENDOSCOPIC ULTRASOUND performed by Brendan Gomez MD at ENDOSCOPY [facility] INSER TUNN ACC DEV;5 YRS/OLDER N/A 08/10/2021 INSERT TUNNELED CENTRAL VENOUS ACCESS WITH SUBQ PORT performed by Alexander Rodriguez MD at OR [facility] KNEE ARTHROSCOPY, DIAGNOSTIC 1989 Knee Arthroscopy right LAPAROSCOPY,BIOPSY N/A 08/10/2021 LAPAROSCOPY WITH BIOPSY performed by Alexander Rodriguez MD at [facility] NEEDLE/PUNCH BIOPSY OF PROSTATE 01/05/2011 BIOPSY PROSTATE NEEDLE performed by EYAD LANDRUM at [facility] PROSTATECTOMY, RETROPUBIC RADICAL, LAP 10/30/2011 ROBOTIC LAPAROSCOPIC PROSTATECTOMY RETROPUBIC RADICAL performed by EYAD LANDRUM at OR [facility] REMOVAL OF TONSILS, UNDER AGE 12 Tonsillectomy REPAIR INITIAL INCISIONAL HERNIA 04/18/2012 Laparoscopic ventral hernia repair with 4 x [address] Adams 04/18/12 US ECHO TRANSRECTAL/PROSTATE 01/05/2011 ULTRASOUND TRANSRECTAL performed by EYAD LANDRUM at OR [facility] Family History Problem Relation Age of Onset [...] mouth 2 times a day. As needed [place]-3 Fatty Acids (FISH OIL) 1000 MG Capsule [...] taking: Reported on 08/10/2021) 40 Tab 0 Prochlorperazine Maleate 10 MG Oral Tablet (Compazine) Take 1 Tab by mouth every 6 hours as needed for Nausea. (Patient not taking: Reported on 08/10/2021) 30 Tab 0 Ondansetron HCl 8 MG Oral Tablet Take 1 Tab by mouth every 8 hours as needed for Nausea. (Patient not taking: Reported on 08/10/2021) 30 Tab 0 traMADol HCl 50 MG Oral Tablet (Ultram) Take 1 Tab by mouth every 6 hours as needed for Pain, Severe. (Patient not taking: Reported on 08/16/2021) 10 Tab 0 No current facility-administered medications for this visit. REVIEW OF SYSTEMS: Performance Status: Normal - ECOG 1 See HPI, otherwise negative. OBJECTIVE: Filed Vitals: 10/03/21 1112 BP: 161/74 Pulse: 65 Resp: 16 Temp: 36.3 C (97.3 F) TempSrc: Infrared SpO2: 98% Weight: 80.7 kg (177 lb 14.4 oz) Wt Readings from Last 5 Encounters: 10/03/21 80.7 kg (177 lb 14.4 oz) 09/20/21 81.5 kg (179 lb 9.6 oz) 08/17/21 83.5 kg (184 lb 1.6 oz) 08/16/21 83.5 kg (184 lb) 08/10/21 83.1 kg (183 lb 1.6 oz) PHYSICAL EXAM: General Appearance: Normal - Healthy appearing patient in no acute distress Skin: Normal- No rashes, lesions or petechiae. +Pale. HEENT: Normal - No oral or pharyngeal [...] orders placed or performed in visit on 10/03/21 COMPREHENSIVE METABOLIC PANEL Result Value Ref Range BUN 22 (H) 6 - 20 mg/dL Creatinine 1.7 (H) 0.6 - 1.2 mg/dL Estimated Glomerular Filtration Rate 39 (L) >=60 mL/min Sodium 141 135 - 146 mmol/L Potassium 4.0 3.5 - 5.1 mmol/L Chloride 104 98 - 107 mmol/L CO2 24 22 - 32 mmol/L Anion Gap 13 7 - 15 mmol/L Glucose 112 70 - 120 mg/dL Albumin 4.3 3.8 - 5.0 g/dL AST 15 10 - 50 U/L Alkaline Phosphatase 73 35 - 130 U/L Bilirubin, Total 0.4 <=1.2 mg/dL Calcium 9.8 8.4 - 10.2 mg/dL Protein 7.1 6.0 - 8.3 g/dL ALT 6 (L) 10 - 50 U/L CBC Result Value Ref Range WBC 4.21 4.00 - 10.80 K/uL RBC 2.98 (L) 4.50 - 5.25 M/uL HGB 8.6 (L) 14.0 - 16.8 g/dL HCT 28.8 (L) 40.0 - 48.4 % MCV 96.6 82.0 - 99.5 fL MCH 28.9 27.0 - 34.0 pg MCHC 29.9 (L) 32.0 - 36.0 g/dL RDW 16.6 (H) 11.5 - 15.5 % Plt 129 (L) 140 - 400 K/uL MPV 9.1 6.6 - 11.1 fL DIFFERENTIAL, AUTOMATED Result Value Ref Range WBC 4.21 4.00 - 10.80 K/uL Neutrophils % 59.2 40.0 - 75.0 % Lymphocytes % 21.1 18.0 - 42.0 % Monocytes % 13.1 (H) 1.0 - 11.0 % Eosinophils % 5.9 0.0 - 6.0 % Basophils % 0.7 0.0 - 2.0 % Absolute Neutrophils 2.49 1.80 - 7.70 K/uL Absolute Lymphocytes 0.89 (L) 1.00 - 4.80 K/ul Absolute Monocytes 0.55 0.00 - 1.10 K/uL Absolute Eosinophils 0.25 0.00 - 0.70 K/uL Absolute Basophils 0.03 0.00 - 0.20 K/uL IMPRESSION: Malignant neoplasm [...] PDL1 is positive then he will be treatedwith nivolumab plus FOLFOX. If negative then he will only receive FOLFOX chemotherapy. On 08/29/2021 pt started MODIFIED FOLFOX6 5FU (12 Cycles/14 Days). Pt had a transfusion of 1 unit of PRBC's on 09/13/21 for a HGB of 7.2. Pt is here today to for labs and a follow up appointment, prior to C3D1 of chemo. Pt is under a lot of emotional stress due to his 's ongoing illness. She is actively dying. He and his son have been visiting her at the hospital. However, he wants to move forward w/ his chemo tx this week. He reports that he has been tolerating the chemo w/ some mild side effects e.g., cold sensitivity and nausea. He takes Compazine w/ relief. He is eating/drinking well. He denies melena and hematochezia. Physical exam is unremarkable. Functional status is good. Vitals are stable. Labs reviewed -HGB is low at 8.6, PLT's low at 129, ANC is WNL. -Kidney function is reduced at baseline. Reviewed lab results w/ Dr. Melo. PLAN: OK for C3D1 of chemo tomorrow. RTC on 10/06/21 for disconnect. Will get a CBCD on 10/06/21 and arrange for a transfusion, if indicated. PDL1 testing is back. Dr. Melo will reivew this w/ the pt during their next visit. PD-L1 (SP263) D1 5% Low PD-L1 expression (TPS 1-49%). Pt requested to delay the next cycle of chemo by one week. RTC on 10/24/21 labs: CBCD and CMP. Dr. Melo, if possible. RTC on 10/25/20 for C4D1 of chemo. I had a discussion with Heath Austin regarding the plan of care, treatment and other issues. Thirty-five minutes were spent counseling the patient face to face. The total time spent in the appointment was 40 minutes. LYLE Bates documented in this encounter Nursing Notes * Ajit Ferguson CMA - 10/03/2021 11:12 AM EST Patient identifed by name and [...] it for you? ALREADY ACTIVE Filed Vitals: 10/03/21 1112 BP: 161/74 Pulse: 65 Resp: 16 Temp: 36.3 C (97.3 F) TempSrc: Infrared SpO2: 98% Weight: 80.7 kg (177 lb 14.4 oz) Pt noted that his recently . Pt would like to discuss his progress and prognosis. 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) 10/24/2021 Laboratory Laboratory Maddy Lab [facility] 200 [place] [address] 10/25/2021 Office Visit Hematology Oncology Nik Melo MD 200 [place] [address] 12/14/2021 Office Visit Urology Cm Rhodes MD [address] [place] [address] Health Maintenance Due Date Last Done [...] of this encounter Implants Implanted Type Area Wire Welder Device Identifier Shelf Expiration Date Model / Serial / Lot Cath Power Port 6fr Clearvue - [id number] Implanted:Qty : 1 on 08/10/2021 by Alexander Rodriguez MD at OR [facility] Left: Subclavian CR BARD : PERIPHERAL VASCULAR 08/21/2021 [id number] / / documented as of this encounter Visit Diagnoses Diagnosis 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 Care Teams Stockfeed Miller Relationship Specialty Start Date End Date Hortencia Leal PA-C [address] [place] [address] PCP - General Physician Boat Captain 02/08/18 documented as of this encounter
--- OUTSIDE RECORDS SUMMARY | 2023-06-27 07:58 | External Medical Summary | Summary of Care ---
Author Name Unknown Organization [place] [address] Care Team Providers Care Airplane Pilot Crop Dusting Name Role Phone Hortencia Leal PA-C Primary Care Provid er Encounter Details Date Type Department Care Team Description 09/13/2021 Nurse Only Hematology/Oncology [facility] [address] [place] [address] Artem[place], Nurse Hem Onc [facility] 200 [place] [address] Arrived Allergies Active Allergy Reactions Severity Noted Date Comments Amlodipine 11/02/2020 dizziness Codeine Sulfate Other (Please comment) 10/26/19 11 hyperactivity Hydrochlorothiazide 11/02/2020 hypercalcemia documented as of this encounter (statuses as of 09/13/2021) Medications Medication Sig Dispensed Refills Start Date [...] times a day. 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 08/17/2021 Kidney stones 08/16/2021 RINA (stress urinary incontinence), male 08/16/2021 Renal cyst, acquired 08/16/2021 Encounter for antineoplastic chemotherap y 08/04/2021 Malignant neoplasm of overlapping sites of stomach 07/21/2021 Prostate cancer 12/31/2013 Other ventral hernia without mention of obstruction or gangrene 05/03/2012 documented as of this encounter (statuses as of 09/13/2021) Resolved Problems Problem Noted Date Resolved Date Elevated prostate specific antigen (PSA) 011 12/31/2013 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 documented as of this encounter (statuses as of 09/13/2021) Immunizations Name Administration Dates Next Due COVID-19 [...] as of this encounter Nursing Notes * Venita Byers RN - 09/13/2021 3:[address] Melo in to sign transfusion consent with patient, consent/ order faxed to [facility] and blood bank. Radha in blood bank aware of order. documented in this encounter Plan of Treatment Upcoming Encounters Date Type Specialty Care Team Description 12/14/2021 Office Visit Urology Cm Rhodes MD [address] [place] [address] [place] [address] Health Maintenance Due Date [...] of this encounter Implants Implanted Type Area Rod Puller And Coiler Device Identifier Shelf Expiration Date Model / Serial / Lot Cath Power Port 6fr Clearvue - [id number] Implanted:Qty : 1 on 08/10/2021 by Alexander Rodriguez MD at [facility] Left: Subclavian CR BARD : PERIPHERAL VASCULAR 08/21/2021 [id number] / / documented as of this encounter Advance Directives Documents on File Type Date Recorded Patient Fiberglass Grinder Expl anation Advanced Directive Advanced Directive Advanced [...] consensually agreed upon. Care Teams Airplane Pilot Crop Dusting Relationship Specialty Start Date End Date Hortencia Leal PA-C [address] [facility] [address] PCP - General Physician Soil Surveyor 02/08/18 documented as of this encounter
--- OUTSIDE RECORDS SUMMARY | 2023-06-27 07:58 | External Medical Summary | Summary of Care ---
Author Name Unknown Organization [place] [address] Care Team Providers Care Chemical Machine Tender Name Role Phone Hortencia Leal PA-C Primary Care Provid er Reason for Visit * Reason Onset Date Comments Information 09/13/2021 Encounter Details Date Type Department Care Team Description 09/13/2021 Telephone Hematology/Oncology Treatment, [address] [place] [address] Nik Melo MD 200 [place] [address] Information Allergies Active Allergy Reactions Severity Noted [...] times a day. As needed 0 Active [place]-3 Fatty Acids (FISH OIL) 1000 MG Capsule [...] 09/13/2021 2:08 PM EST Received TT from [facility]- they can take patient tomorrow at noon. [...] RN - 09/13/2021 1:[address] Melo: "Hemoglobin 7.2. He will need blood transfusion" [...] Encounters Date Type Specialty Care Team Description 09/13/2021 Nurse Only Hematology Oncology Maddy, Nurse Hem Onc [facility] 200 [place] [address] 09/14/2021 Office Visit Hematology Oncology Emperatriz Blackman CRNP [address] [facility] [address] 09/14/2021 Hem/Onc Treatment Hematology Oncology [place], Chair 2 Hem Onc [address] 200 [place] [address] 12/14/2021 Office Visit Urology Cm Rhodes MD [address] [place] [address] [place] [address] Scheduled Orders Name Type Priority Associated Diagnoses [...] of this encounter Implants Implanted Type Area Boilermaker Device Identifier Shelf Expiration Date Model / Serial / Lot Cath Power Port 6fr Clearvue - [id number] Implanted:Qty : 1 on 08/10/2021 by Alexander Rodriguez MD at [facility] Left: Subclavian CR BARD : PERIPHERAL VASCULAR 08/21/2021 [id number] / / documented as of this encounter Visit Diagnoses Diagnosis Anemia- Primary Anemia, unspecified documented in this encounter Advance Directives Documents on File Type Date Recorded Patient Program Eligibility Specialist Expl anation Advanced Directive Advanced Directive [...] were consensually agreed upon. Care Teams Chemical Machine Tender Relationship Specialty Start Date End Date Hortencia Leal PA-C [address] [place] [address] PCP - General Physician Spinning Operator 02/08/18 documented as of this encounter
--- OUTSIDE RECORDS SUMMARY | 2023-06-27 07:58 | External Medical Summary | Summary of Care ---
Author Name Unknown Organization [place] [address] Care Team Providers Care Student Life Dean Name Role Phone Hortencia Leal PA-C Primary Care Provid er Reason for Visit * Reason Onset Date Comments Information 09/13/2021 Encounter Details Date Type Department Care Team Description 09/13/2021 Telephone Hematology/Oncology Treatment, [address] [place] [address] Nik Melo MD 200 [place] [address] Information Allergies Active Allergy Reactions Severity Noted [...] times a day. As needed 0 Active [place]-3 Fatty Acids (FISH OIL) 1000 MG Capsule [...] 09/13/2021 2:08 PM EST Received TT from [facility]- they can take patient tomorrow at noon. [...] 12/14/2021 Office Visit Urology Cm Rhodes MD [address] [place] [address] [place] [address] Scheduled Orders Name Type [...] of this encounter Implants Implanted Type Area Brush Holder Assembler Device Identifier Shelf Expiration Date Model / Serial / Lot Cath Power Port 6fr Clearvue - [id number] Implanted:Qty : 1 on 08/10/2021 by Alexander Rodriguez MD at [place] [facility] Left: Subclavian CR BARD : PERIPHERAL VASCULAR 08/21/2021 [id number] / / documented as of this encounter Visit Diagnoses Diagnosis Anemia- Primary Anemia, unspecified documented in this encounter Advance Directives Documents on File Type Date Recorded Patient Ic Designer Standard Cells Expl 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 Care Teams Student Life Dean Relationship Specialty Start Date End Date Hortencia Leal PA-C [address] [facility] [place] [address] PCP - General Physician Meal Grinder Tender 02/08/18 documented as of this encounter
--- OUTSIDE RECORDS SUMMARY | 2023-06-27 07:58 | External Medical Summary | Summary of Care ---
Author Name Unknown Organization [place] [address] Care Team Providers Care Tow Car Driver Name Role Phone Hortencia Leal PA-C Primary Care Provid er Reason for Visit * Reason Comments Outpatient Testing Encounter Details Date Type Department Care Team Description 10/03/2021 Laboratory Laboratory [facility] [place] [address] [place] [address] [facility] Lab [facility] 200 [facility] [place] [address] Malignant neoplasm of overlapping sites of stomach [...] times a day. 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) 10/03/2021 10:25 AM EST Health Maintenance Due Date Last [...] this encounter Implants Implanted Type Area Senior Java Software Engineer Device Identifier Shelf Expiration Date Model / Serial / Lot Cath Power Port 6fr Clearvue - [id number] Implanted:Qty : 1 on 08/10/2021 by Alexander Rodriguez MD [place] [facility] [place]: Subclavian CR BARD : PERIPHERAL VASCULAR 08/21/2021 [id number] / / documented as of this encounter Procedures Procedure Name Priority Date/Time Associated Diagnosis Comments DIFFERENTIAL, AUTOMATED STAT 10/03/2021 10:25 AM EST 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) CBC WITH WBC DIFFERENTIAL STAT 10/03/2021 10:25 AM EST 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) CBC STAT 10/03/2021 10:25 AM EST 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) documented in this encounter Results * DIFFERENTIAL, AUTOMATED (10/03/2021 10:25 AM EST) WBC 4.21 4.00 - 10.80 K/uL LABORATORY STATE [facility] 56-02 Neutrophils % 59.2 40.0 - 75.0 % LABORATORY [facility] 56-02 Lymphocytes % 21.1 18.0 - 42.0 % [facility]ORATORY [facility] 56-02 Monocytes % 13.1(H) 1.0 - 11.0 % LABORATORY STAT [facility] [place] 56-02 Eosinophils % 5.9 0.0 - 6.0 % LABORATORY [facility] 56-02 Basophils % 0.7 0.0 - 2.0 % LABORATORY STAT E [place] 56-02 Absolute Neutrophils 2.49 1.80 - 7.70 K/uL [place] [address]- Absolute Lymphocytes 0.89(L) 1.00 - 4.80 K/ul [place] [address] Absolute Monocytes 0.55 0.00 - 1.10 K/uL [place] [address]- Absolute Eosinophils 0.25 0.00 - 0.70 K/uL [place] [address] Absolute Basophils 0.03 0.00 - 0.20 K/uL [place] [address] Specimen Blood - Venous blood specime n (specimen) Performing Organization Address City/[facility]/ZIP Co de Phone Number [facility] 56 [address] [place], [place] [phone] * CBC (10/03/2021 10:25 AM EST) [facility] WBC 4.21 4.00 - 10.80 K/uL [place] [address] RBC 2.98(L) 4.50 - 5.25 M/uL [place] [address] HGB 8.6(L) 14.0 - 16.8 g/dL [place] [address] HCT 28.8(L) 40.0 - 48.4 % LABORATORY [address] MCV 96.6 82.0 - 99.5 fL LAB[address]ATORY [address] MCH 28.9 27.0 - 34.0 pg [facility] 56 MCHC 29.9(L) 32.0 - 36.0 g/dL [place] [address] RDW 16.6(H) 11.5 - 15.5 % [address] Plt 129(L) 140 - 400 K/uL [place] [address] MPV 9.1 6.6 - 11.1 fL LABORATORY [address] Specimen Blood - Venous blood specime n (specimen) Performing Organization Address City/[facility]/ZIP Co de Phone Number [facility] 56[facility] 200 [place], [place] [phone] documented in this encounter Visit Diagnoses Diagnosis 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 Care Teams Tow Car Driver Relationship Specialty Start Date End Date Hortencia Leal PA-C [address] [facility], [place] [address] PCP - General Physician Director Pharmacology 02/08/18 documented as of this encounter
--- OUTSIDE RECORDS SUMMARY | 2023-06-27 07:58 | External Medical Summary | Summary of Care ---
Author Name Unknown Organization [place] [address] Care Team Providers Care Shell Assembler Name Role Phone Hortencia Leal PA-C Primary Care Provid er Reason for Visit * Reason Onset Date Comments Information 09/13/2021 Encounter Details Date Type Department Care Team Description 09/13/2021 Telephone Hematology/Oncology Treatment, [address] [place] [address] Nik Melo MD 200 [facility] [address] Information Allergies Active Allergy Reactions Severity Noted [...] times a day. As needed 0 Active [place]-3 Fatty Acids (FISH OIL) 1000 MG [...] Hematology Oncology [place], Chair 11 Hem Onc [facility] 200 [place] [address] 12/14/2021 Office Visit Urology Cm Rhodes MD [address] [place] [address] [place] [address] Scheduled Orders Name Type Priority Associated [...] of this encounter Implants Implanted Type Area Information Assistant Device Identifier Shelf Expiration Date Model / Serial / Lot Cath Power Port 6fr Clearvue - [id number] Implanted:Qty : 1 on 08/10/2021 by Alexander Rodriguez MD at [place] [facility] [place] Left: Subclavian CR BARD : PERIPHERAL VASCULAR 08/21/2021 [id number] / / documented as of this encounter Visit Diagnoses Diagnosis Anemia- Primary Anemia, unspecified documented in this encounter Advance Directives Documents on File Type Date Recorded Patient New Media Strategist Expl 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 Care Teams Shell Assembler Relationship Specialty Start Date End Date Hortencia Leal PA-C [address] [facility], [place] [address] PCP - General Physician Shampooer 02/08/18 documented as of this encounter
--- OUTSIDE RECORDS SUMMARY | 2023-06-27 07:58 | External Medical Summary | Summary of Care ---
Author Name Unknown Organization [facility] Address [facility] [place] [address] Care Team Providers Care R D Manager Name Role Phone Hortencia Leal PA-C Primary Care Provid er Encounter Details Date Type Department Care Team Description 09/30/2021 Orders Only Hematology/Oncology, [facility] 400 [facility] [place] [address] Nik Melo MD 200 [facility], [place] [id number] Allergies Active Allergy Reactions Severity Noted Date Comments Amlodipine 11/02/2020 dizziness Codeine Sulfate Other (Please comment) 10/26/19 11 hyperactivity Hydrochlorothiazide 11/02/2020 hypercalcemia documented as of this encounter (statuses as of 09/30/2021) Medications Medication Sig Dispensed Refills Start Date [...] times a day. 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 Kidney stones 08/16/2021 RINA (stress urinary incontinence), male 08/16/2021 Renal cyst, acquired 08/16/2021 Encounter for antineoplastic chemotherap y 08/04/2021 Malignant neoplasm of overlapping sites of stomach 07/21/2021 Prostate cancer 12/31/2013 Other ventral hernia without mention of obstruction or gangrene 05/03/2012 documented as of this encounter (statuses as of 09/30/2021) Resolved Problems Problem Noted Date Resolved Date Elevated prostate specific antigen (PSA) 011 12/31/2013 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 documented as of this encounter (statuses as of 09/30/2021) Immunizations Name Administration Dates Next Due COVID-19 [...] Date Type Specialty Care Team Description 10/03/2021 Laboratory Laboratory [place], Lab Scenery [address] [place] [address] 10/03/2021 Office Visit Hematology Oncology Emperatriz Blackman CRNP [address] [place] [address] 10/04/2021 Hem/Onc Treatment Hematology Oncology [place], Chair 1 Hem Onc Scenery [address] [place] [address] 12/14/2021 Office Visit Urology Cm Rhodes MD [address] [place] [address] [place] [address] Health Maintenance Due Date [...] of this encounter Implants Implanted Type Area Tractor Driver Device Identifier Shelf Expiration Date Model / Serial / Lot Cath Power Port 6fr Clearvue - [id number] Implanted:Qty : 1 on 08/10/2021 [place] Rodriguez [place] [facility] [place] Subclavian CR BARD : PERIPHERAL VASCULAR 08/21/2021 [id number] / / documented as of this encounter Advance Directives Documents on File Type Date Recorded Patient Neuro Urologist Expl 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 Care Teams R D Manager Relationship Specialty Start Date End Date Hortencia Leal PA-C [address] [place] [address] PCP - General Physician Home Improvement Contractor 02/08/18 documented as of this encounter
--- OUTSIDE RECORDS SUMMARY | 2023-06-27 07:58 | External Medical Summary | Summary of Care ---
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) Procedures MI LEUCOVORIN CALCIUM INJECTION MI PALONOSETRON HCL MI FLUOROURACIL INJECTION MI OXALIPLATIN Nik Melo MD 200 [place] [address] Anc Hem/Onc [facility] [address] [place] [address] [phone] Referral ID Status Reason Start Date Expiration Date V isits Requested Visits Authorized [id number] Authorized 08/19/2021 08/19/2022 99 99 Encounter Details Date Type Department Care Team Description 09/22/2021 Immunization/I njection Hematology/Oncology Treatment, [place] [address] [place] [address] Nurse, Med [address] [place] [address] 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 Kidney stones 08/16/2021 RINA (stress urinary incontinence), male 08/16/2021 Renal cyst, acquired 08/16/2021 Encounter for antineoplastic chemotherap y 08/04/2021 Malignant neoplasm of overlapping sites of stomach 07/21/2021 Prostate cancer 12/31/2013 Other ventral hernia without mention of obstruction or gangrene 05/03/2012 documented as of this encounter (statuses as of 09/22/2021) Resolved Problems Problem Noted Date Resolved Date Elevated prostate specific antigen (PSA) 011 12/31/2013 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 Up disconnected and VAD flushed per protocol. Huberneedle removed. Patient tolerated treatment well and was discharged in stable condition. documented in this encounter Plan of Treatment Upcoming Encounters Date Type Specialty Care Team Description 10/03/2021 Laboratory Laboratory [facility] Lab Scenery [address] [place] [address] 10/03/2021 Office Visit Hematology Oncology Emperatriz Blackman CRNP [address] [place] [address] 10/04/2021 Hem/Onc Treatment Hematology Oncology [place], Chair 1 Hem Onc Scenery [address] [place] [address] 12/14/2021 Office Visit Urology Cm Rhodes MD [address] [place] [address] Health Maintenance Due Date Last Done [...] this encounter Implants Implanted Type Area Radio Dispatcher Device Identifier Shelf Expiration Date Model / Serial / Lot Cath Power Port 6fr Clearvue - [id number] Implanted:Qty : 1 on 08/10/2021 by Alexander Rodriguez MD at [place] [facility] [place] Left: Subclavian CR BARD : PERIPHERAL VASCULAR 08/21/2021 [id number] / / documented as of this encounter [...] PRN Other, IV Flush, Starting on Chandrika 09/22/21 at 1052, Until 09/23/21 at 1051, For 24 hours, Do not flush if lock, PICC, or central line not in place; IV infusing or unable to flush. Given 09/22/2021 11:10 AM EST 500 Units sodium chloride 0.9% flush/inj 10 mL 10 mL, IV Push, PRN Other, IV Flush, Starting on Chandrika 09/22/21 at 1052, Until 09/23/21 at 1051, For 24 hours, Do not flush if lock, PICC, or central line not in place; IV infusing or unable to flush. Given 09/22/2021 11:10 AM EST 10 mL documented in this encounter Advance Directives Documents on File Type Date Recorded Patient Refining Engineer Expl 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 Care Teams Tunnel Elastic Operator Lockstitch Relationship Specialty Start Date End Date Hortencia Leal PA-C [address] [facility] [address] PCP - General Physician Wheat Inspector 02/08/18 documented as of this encounter
--- OUTSIDE RECORDS SUMMARY | 2023-06-27 07:58 | External Medical Summary ---
Author Name Unknown Address Unknown Organization [id number]:[facility] [place] [address] Laboratory Report Ordering Provider Test Date Status CHSHAY WOMACK 10/03/2021 10:25:06 Final Observation Date Value Abnormality Reference (Units ) Status BUN 10/03/2021 10:25:06 22 Above high normal 6-20 (mg/dL) Final Creatinine 10/03/2021 10:25:06 1.7 Above high normal 0.6-1.2 (mg/dL) Final Glomerular filtration rate/1.73 sq M.predicted [Volume Rate/Area] in Serum, Plasma or Blood by Creatinine-based formula (CKD-EPI) 10/03/2021 10:25:06 39 Below low normal >=60 (mL/min) Final Performing Location [facility] [place] [address]
--- OUTSIDE RECORDS SUMMARY | 2023-06-27 07:58 | External Medical Summary ---
Author Name Unknown Address Unknown Organization K09:[facility] [place] [place] [address] Laboratory Report Ordering Provider Test Date Status SHAY CH 10/03/2021 10:25:06 Final Observation Date Value Abnormality Reference (Units ) Status WBC, Total 10/03/2021 10:25:06 4.21 4.00-10.8 0 (K/uL) Final RBC 10/03/2021 10:25:06 2.98 Below low normal 4.5 0-5.25 (M/uL) Final Hemoglobin 10/03/2021 10:25:06 8.6 Below low normal 14 .0-16.8 (g/dL) Final HCT 10/03/2021 10:25:06 28.8 Below low normal 40. 0-48.4 (%) Final MCV 10/03/2021 10:25:06 96.6 82.0-99.5 (fL) Final MCH 10/03/2021 10:25:06 28.9 27.0-34.0 (pg) Final MCHC 10/03/2021 10:25:06 29.9 Below low normal 32. 0-36.0 (g/dL) Final RDW 10/03/2021 10:25:06 16.6 Above high normal 11 .5-15.5 (%) Final Platelets 10/03/2021 10:25:06 129 Below low normal 140 -400 (K/uL) Final MPV 10/03/2021 10:25:06 9.1 6.6-11.1 ( fL) Final Performing Location [facility] [place] [address]
--- OUTSIDE RECORDS SUMMARY | 2023-06-27 07:59 | External Medical Summary ---
Author Name Unknown Address Unknown Organization K09:[facility] [place] [address] Laboratory Report Ordering Provider Test Date Status SHAY CH 09/13/2021 10:13:40 Final Observation Date Value Abnormality Reference (Units ) Status BUN 09/13/2021 10:13:40 25 Above high normal 6-20 (mg/dL) Final Creatinine 09/13/2021 10:13:40 2.0 Above high normal 0.6-1.2 (mg/dL) Final Glomerular filtration rate/1.73 sq M.predicted [Volume Rate/Area] in Serum, Plasma or Blood by Creatinine-based formula (CKD-EPI) 09/13/2021 10:13:40 31 Below low normal >=60 (mL/min) Final Performing Location [facility] [place] [address]
--- OUTSIDE RECORDS SUMMARY | 2023-06-27 07:59 | External Medical Summary | Summary of Care ---
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 Kidney stones 08/16/2021 RINA (stress urinary incontinence), male 08/16/2021 Renal cyst, acquired 08/16/2021 Encounter for antineoplastic chemotherap y 08/04/2021 Malignant neoplasm of overlapping sites of stomach 07/21/2021 Prostate cancer 12/31/2013 Other ventral hernia without mention of obstruction or gangrene 05/03/2012 documented as of this encounter (statuses as of 08/29/2021) Resolved Problems Problem Noted Date Resolved Date Elevated prostate specific antigen (PSA) 011 12/31/2013 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) 08/29/2021 9:11 AM EST Health Maintenance Due Date Last Done Comments Pneumococcal Vaccine: 65+ Years (1 of 4 - PCV13) 12/29/1951 DTaP,Tdap,and Td Vaccines (1 - Tdap) 1964 Zoster Vaccines (1 of 2) 12/29/1995 *DEPRESSION SCREENING,ANNUAL FOR PTS 12 AND OVER 09/29/2016 COVID-19 Vaccine (3 - Moderna risk 3-dose series) 03/14/2021 02/14/2021, 01/17/2021 COLONOSCOPY-EVERY 3 YRS AGES 18-100 07/15/2024 07/15/2021, 07/15/2021, 04/12/2018, Additional history exists DIABETES SCREEN EVERY 3 YRS-AGE 45 AND ABOVE 08/03/2024 08/03/2021, 01/24/2021, 11/21/2019, Additional history exists Influenza Vaccine (FLU shot) Completed 06/2021, 08/21/2018, 07/14/2017, Additional history exists MENINGOCOCCAL (MENACTRA/MENVEO) Aged Out No longer eligible based on patient's age to complete this topic documented as of this encounter Implants Implanted Type Area Wood Cabinetmaker Device Identifier Shelf Expiration Date Model / Serial / Lot Cath Power Port 6fr Clearvue - [id number] Implanted:Qty : 1 on 08/10/2021 by Alexander Rodriguez MD at [facility] Left: Subclavian CR BARD : PERIPHERAL VASCULAR 08/21/2021 [id number] / / documented as of this encounter Procedures Procedure Name Priority Date/Time Associated Diagnosis Comments DIFFERENTIAL, AUTOMATED STAT 08/29/2021 9:11 AM EST 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) CBC WITH WBC DIFFERENTIAL STAT 08/29/2021 9:11 AM EST Malignant 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) CBC STAT 08/29/2021 9:11 AM EST 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) documented in this encounter Results * DIFFERENTIAL, AUTOMATED (08/29/2021 9:11 AM EST) WBC 7.65 4.00 - 10.80 K/uL LABORATORY STATE [facility] 56-02 Neutrophils % 63.8 40.0 - 75.0 % LABORATORY ATE [facility] 56-02 Lymphocytes % 23.4 18.0 - 42.0 % LABORATORY [facility] 56-02 Monocytes % 10.3 1.0 - 11.0 % LABORATORY STAT E [facility] 56-02 Eosinophils % 2.2 0.0 - 6.0 % LABORATORY [facility] 56-02 Basophils % 0.3 0.0 - 2.0 % LABORATORY STAT E [facility] 56-02 Absolute Neutrophils 4.88 1.80 - 7.70 K/uL [facility] 56- Absolute Lymphocytes 1.79 1.00 - 4.80 K/ul [facility] 56- Absolute Monocytes 0.79 0.00 - 1.10 K/uL [facility] 56- Absolute Eosinophils 0.17 0.00 - 0.70 K/uL [facility] 56- Absolute Basophils 0.02 0.00 - 0.20 K/uL [facility] 56- Specimen Blood - Venous blood specime n (specimen) Performing Organization Address City/[facility]/ZIP Co de Phone Number [facility] 56 [address] [place], [place] [phone] * CBC (08/29/2021 9:11 AM EST) [facility] WBC 7.65 4.00 - 10.80 K/uL [facility] 56 RBC 2.57(L) 4.50 - 5.25 M/uL [place] [address] HGB 7.9(L) 14.0 - 16.8 g/dL [facility] 56 HCT 26.6(L) 40.0 - 48.4 % [facility] - MCV 103.5(H) 82.0 - 99.5 fL [facility] 56- MCH 30.7 27.0 - 34.0 pg [facility] - MCHC 29.7(L) 32.0 - 36.0 g/dL [facility] 56 RDW 17.3(H) 11.5 - 15.5 % [facility] - Plt 308 140 - 400 K/uL [facility] - MPV 8.5 6.6 - 11.1 fL 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 Care Teams Shoe Repairer Relationship Specialty Start Date End Date Hortencia Leal PA-C [address] [place] [address] PCP - General Physician Plasma Cutting Machine Operator 02/08/18 documented as of this encounter
--- OUTSIDE RECORDS SUMMARY | 2023-06-27 07:59 | External Medical Summary | Summary of Care ---
Author Name Unknown Organization [place] [address] Care Team Providers Care Propulsion Motor And Generator Repairer Name Role Phone Hortencia Leal PA-C Primary Care Provid er Reason for Visit * Reason Onset Date Comments Outpatient Testing 08/17/2021 Encounter Details Date Type Department Care Team Description 08/17/2021 Telephone Hematology/Oncology Treatment, [place] 200 [place] [address] Nik Melo MD 200 [place] [address] Outpatient Testing Allergies Active Allergy Reactions Severity [...] times a day. As needed 0 Active [place]-3 Fatty Acids (FISH OIL) 1000 MG Capsule [...] Telephone Encounter - Venita Byers RN - 08/29/2021 7:49 AM EST PDL1 and MSI resulted. No opdivo. * Telephone Encounter - Venita Byers RN - 08/17/2021 12:[address] Melo, would like PDL1 and MSI testing added to previous biopsy [id number] collected 07/15/21. Dr Melo placed order. Message to pathology sent. 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); Encounter for antineoplastic chemotherapy 09/06/2021 Office Visit Gastroenterology Angela Herbert CRNP 132 [facility] [place] [address] 12/14/2021 Office Visit Urology Cm Rhodes MD [address] [facility] [address] [place] [id number] Health Maintenance Due Date Last Done Comments [...] SCREEN EVERY 3 YRS-AGE 45 AND ABOVE 08/29/2024 08/29/2021, 08/03/2021, 01/24/2021, Additional history exists Influenza Vaccine (FLU shot) Completed 06/2021, 08/21/2018, 07/14/2017, Additional history exists MENINGOCOCCAL (MENACTRA/MENVEO) Aged Out No longer eligible based on patient's age to complete this topic documented as of this encounter Implants Implanted Type Area Adding Machine Operator Device Identifier Shelf Expiration Date Model / Serial / Lot Cath Power Port 6fr Clearvue - [id number] Implanted:Qty : 1 on 08/10/2021 [place] [facility] [place] Subclavian CR BARD : PERIPHERAL VASCULAR 08/21/2021 [id number] / / documented as of this encounter Advance Directives Documents on File Type Date Recorded 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 Care Teams Propulsion Motor And Generator Repairer Relationship Specialty Start Date End Date Hortencia Leal PA-C [address] [place] [address] PCP - General Physician Shank Stapler 02/08/18 documented as of this encounter
--- OUTSIDE RECORDS SUMMARY | 2023-06-27 07:59 | External Medical Summary | Summary of Care ---
Author Name Unknown Organization [place] [address] Care Team Providers Care Pressure Welder Name Role Phone Hortencia Leal PA-C Primary Care Provid er Reason for Visit * Reason Onset Date Comments Information 09/05/2021 check in after C 1D1 FOLFOX Encounter Details Date Type Department Care Team Description 09/05/2021 Telephone Hematology/Oncology Treatment, [place] 200 [place] [address] Nik Melo MD [address] [place] [address] Information (check in after C1D1 FOLFOX) Allergies Active Allergy Reactions Severity Noted Date Comments Amlodipine 11/02/2020 dizziness Codeine Sulfate Other (Please comment) 10/26/19 11 hyperactivity Hydrochlorothiazide 11/02/2020 hypercalcemia documented as of this encounter (statuses as of 09/05/2021) Medications Medication Sig Dispensed Refills Start Date [...] a day. As needed 0 Active [place]-3 Fatty Acids (FISH OIL) 1000 MG Capsule [...] as of this encounter (statuses as of 09/05/2021) Active Problems Problem Noted Date Adenocarcinoma of esophagus metastatic t o intra-abdominal lymph node 08/17/2021 Kidney stones 08/16/2021 RINA (stress urinary incontinence), male 08/16/2021 Renal cyst, acquired 08/16/2021 Encounter for antineoplastic chemotherap y 08/04/2021 Malignant neoplasm of overlapping sites of stomach 07/21/2021 Prostate cancer 12/31/2013 Other ventral hernia without mention of obstruction or gangrene 05/03/2012 documented as of this encounter (statuses as of 09/05/2021) Resolved Problems Problem Noted Date Resolved Date Elevated prostate specific antigen (PSA) 011 12/31/2013 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 Called to check on patient. He states that he is "feeling a little rough". Stomach seems to be upset- taking zofran, which helps. Eating and drinking well. States that he had been constipation, took dulcolax and had an episode of diarrhea today. States that he is having some dizziness- he has a history of this for which he takes meclizine, he is planning on taking a tablet of meclizine today. He state that he does not feel he is dehydrated at this time. He notes that his recently had a heart attack and in [facility] for rehab, so he is trying to attend to her needs at this time. Advised him to push PO fluids and to contact office if diarrhea/ dizziness worsens/ doesn't improve, or if he has any other questions/ concerns. Patient verbalized understanding. Dr Melo: GREG documented in this encounter Plan of Treatment Upcoming Encounters Date Type Specialty Care Team Description 09/13/2021 Laboratory Laboratory [place], Lab Scenery [address] [place] [address] 09/14/2021 Office Visit Hematology Oncology Emperatriz Blackman CRNP [address] [place] [address] 09/14/2021 Hem/Onc Treatment Hematology Oncology [place], Chair 2 Hem Onc Scenery 200 [facility] [place] [address] 12/14/2021 Office Visit Urology Cm Rhodes MD [address] [address] Health Maintenance Due Date Last [...] of this encounter Implants Implanted Type Area Electrician Yard Device Identifier Shelf Expiration Date Model / Serial / Lot Cath Power Port 6fr Clearvue - [id number] Implanted:Qty : 1 on 08/10/2021 by Alexander Rodriguez MD at [place] [facility] [place] Left: Subclavian CR BARD : PERIPHERAL VASCULAR 08/21/2021 [id number] / / documented as of this encounter Advance Directives Documents on File Type Date Recorded Patient [facility] Office Supervisor Expl 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 Care Teams Pressure Welder Relationship Specialty Start Date End Date Hortencia Leal PA-C [address] [facility] [address] PCP - General Physician Editor Department 02/08/18 documented as of this encounter
--- OUTSIDE RECORDS SUMMARY | 2023-06-27 07:59 | External Medical Summary | Summary of Care ---
Author Name Unknown Organization [place] [address] Care Team Providers Care Commercial Loan Underwriter Name Role Phone Hortencia Leal PA-C Primary Care Provid er Reason for Visit * Reason Onset Date Comments Information 09/13/2021 Encounter Details Date Type Department Care Team Description 09/13/2021 Telephone Hematology/Oncology Treatment, [address] [place] [address] Nik Melo MD 200 [place] [address] Information Allergies Active Allergy Reactions Severity Noted [...] times a day. As needed 0 Active [place]-3 Fatty Acids (FISH OIL) 1000 MG Capsule [...] Telephone Encounter - Venita Byers RN - 09/13/2021 1:53 PM EST Called patient- he will come to the office today at 3pm for transfusion consent. * Telephone Encounter - Venita Byers RN - 09/13/2021 1:18 PM EST Per [...] Encounters Date Type Specialty Care Team Description 09/14/2021 Office Visit Hematology Oncology Emperatriz Blackman CRNP [address] [place] [address] 09/14/2021 Hem/Onc Treatment Hematology Oncology [place], Chair 2 Hem Onc Scenery [address] [place], [place] [address] 12/14/2021 Office Visit Urology Cm Rhodes MD 27 [address] [facility] [address] [place] [address] Health Maintenance [...] of this encounter Implants Implanted Type Area Baggage Inspector Device Identifier Shelf Expiration Date Model / Serial / Lot Cath Power Port 6fr Clearvue - [id number] Implanted:Qty : 1 on 08/10/2021 by Alexander Rodriguez MD at [place] [facility] [place] Left: Subclavian CR BARD : PERIPHERAL VASCULAR 08/21/2021 [id number] / / documented as of this encounter Advance Directives Documents on File Type Date Recorded 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 Care Teams Commercial Loan Underwriter Relationship Specialty Start Date End Date Hortencia Leal PA-C [address] [facility] [address] PCP - General Physician Field Service Coordinator 02/08/18 documented as of this encounter
--- OUTSIDE RECORDS SUMMARY | 2023-06-27 07:59 | External Medical Summary | Summary of Care ---
Author Name Unknown Organization [place] [address] Care Team Providers Care Terrazzo Laborer Name Role Phone Hortencia Leal PA-C Primary Care Provid er Encounter Details Date Type Department Care Team Description 09/12/2021 Orders Only Hematology/Oncology [facility] 200 [facility] [place] [address] Nik Melo MD 200 [place] [address] Allergies Active Allergy Reactions Severity Noted Date Comments Amlodipine 11/02/2020 dizziness Codeine Sulfate Other (Please comment) 10/26/19 11 hyperactivity Hydrochlorothiazide 11/02/2020 hypercalcemia documented as of this encounter (statuses as of 09/12/2021) Medications Medication Sig Dispensed Refills Start Date [...] as of this encounter (statuses as of 09/12/2021) Active Problems Problem Noted Date Adenocarcinoma of esophagus metastatic t o intra-abdominal lymph node 08/17/2021 Kidney stones 08/16/2021 RINA (stress urinary incontinence), male 08/16/2021 Renal cyst, acquired 08/16/2021 Encounter for antineoplastic chemotherap y 08/04/2021 Malignant neoplasm of overlapping sites of stomach 07/21/2021 Prostate cancer 12/31/2013 Other ventral hernia without mention of obstruction or gangrene 05/03/2012 documented as of this encounter (statuses as of 09/12/2021) Resolved Problems Problem Noted Date Resolved Date Elevated prostate specific antigen (PSA) 011 12/31/2013 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 documented as of this encounter (statuses as of 09/12/2021) Immunizations Name Administration Dates Next Due COVID-19 [...] Specialty Care Team Description 09/13/2021 Laboratory Laboratory [place], Lab Scenery [address] [place] [address] 09/14/2021 Office Visit Hematology Oncology Emperatriz Blackman CRNP [address] [place] [address] 09/14/2021 Hem/Onc Treatment Hematology Oncology [place], Chair 2 Hem Onc Scenery [address] [place] [address] 12/14/2021 Office Visit Urology Cm Rhodes MD [address] [address] Health Maintenance Due Date [...] of this encounter Implants Implanted Type Area Acid Conditioning Worker Device Identifier Shelf Expiration Date Model / Serial / Lot Cath Power Port 6fr Clearvue - [id number] Implanted:Qty : 1 on 08/10/2021 by Alexander Rodriguez MD at [place] [facility] [place] Left: Subclavian CR BARD : PERIPHERAL VASCULAR 08/21/2021 [id number] / / documented as of this encounter Advance Directives Documents on File Type Date Recorded Patient Traffic Control Technician Expl anation Advanced Directive Advanced Directive [...] were consensually agreed upon. Care Teams Terrazzo Laborer Relationship Specialty Start Date End Date Hortencia Leal PA-C [address] [place] [address] PCP - General Physician Publications Editor 02/08/18 documented as of this encounter
--- OUTSIDE RECORDS SUMMARY | 2023-06-27 07:59 | External Medical Summary | Summary of Care ---
Author Name Unknown Organization [place] [address] Care Team Providers Care Sourcing Specialist Name Role Phone Hortencia Leal PA-C Primary Care Provid er Reason for Visit * Reason Comments Outpatient Testing Encounter Details Date Type Department Care Team Description 09/13/2021 Laboratory Laboratory [facility] [place] [address] [place] [address] [facility] Lab [facility] 200 [facility] [place] [address] Malignant neoplasm of overlapping sites of stomach [...] times a day. 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) 09/13/2021 10:13 AM EST Health Maintenance Due Date Last [...] of this encounter Implants Implanted Type Area Medical Certification Specialist Device Identifier Shelf Expiration Date Model / Serial / Lot Cath Power Port 6fr Clearvue - [id number] Implanted:Qty : 1 on 08/10/2021 by Alexander Rodriguez MD at [facility] Left: Subclavian CR BARD : PERIPHERAL VASCULAR 08/21/2021 [id number] / / documented as of this encounter Procedures Procedure Name Priority Date/Time Associated Diagnosis Comments DIFFERENTIAL, AUTOMATED STAT 09/13/2021 10:13 AM EST 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) CBC WITH WBC DIFFERENTIAL STAT 09/13/2021 10:13 AM EST Malignant 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) CBC STAT 09/13/2021 10:13 AM EST 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) documented in this encounter Results * DIFFERENTIAL, AUTOMATED (09/13/2021 10:13 AM EST) WBC 4.41 4.00 - 10.80 K/uL LAB[facility]ORY [place] 56-02 Neutrophils % 61.0 40.0 - 75.0 % LABORATORY [facility] 56-02 Lymphocytes % 22.7 18.0 - 42.0 % LABORATORY [facility] 56-02 Monocytes % 12.2(H) 1.0 - 11.0 % LABORATORY STAT E [facility] 56-02 Eosinophils % 3.6 0.0 - 6.0 % LABORATORY [facility] 56-02 Basophils % 0.5 0.0 - 2.0 % LABORATORY STAT E [facility] 56-02 Absolute Neutrophils 2.69 1.80 - 7.70 K/uL LAB[facility] [place] 56- Absolute Lymphocytes 1.00 1.00 - 4.80 K/ul [place] [address]- Absolute Monocytes 0.54 0.00 - 1.10 K/uL [place] [address]- Absolute Eosinophils 0.16 0.00 - 0.70 K/uL [place] [address]- Absolute Basophils 0.02 0.00 - 0.20 K/uL [place] [address]- Specimen Blood - Venous blood specime n (specimen) [facility] 56 [address] [place] [address] * CBC (09/13/2021 10:13 AM EST) [facility] WBC 4.41 4.00 - 10.80 K/uL [place] [address] RBC 2.47(L) 4.50 - 5.25 M/uL [place] [address] HGB 7.2(L) 14.0 - 16.8 g/dL [address] HCT 25.0(L) 40.0 - 48.4 % LABORATORY [facility] - MCV 101.2(H) 82.0 - 99.5 fL LABORATORY [place] [address]- MCH 29.1 27.0 - 34.0 pg LABORATORY [facility] - MCHC 28.8(L) 32.0 - 36.0 g/dL [address] RDW 16.5(H) 11.5 - 15.5 % LABORATORY [place] [address]- Plt 206 140 - 400 K/uL [place] [address]- MPV 8.6 6.6 - 11.1 fL LABORATORY [facility] - Specimen Blood - Venous blood specime n (specimen) Performing Organization Address City/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 Care Teams Sourcing Specialist Relationship Specialty Start Date End Date Hortencia Leal PA-C [address] [facility] [address] PCP - General Physician Aircraft Steel Fabricator 02/08/18 documented as of this encounter
--- OUTSIDE RECORDS SUMMARY | 2023-06-27 07:59 | External Medical Summary | Summary of Care ---
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) Procedures IN LEUCOVORIN CALCIUM INJECTION IN PALONOSETRON HCL IN FLUOROURACIL INJECTION IN OXALIPLATIN Nik Melo MD 200 [facility] [place] [address] Anc Hem/Onc [place] [address] [place] [address] Referral ID Status Reason Start Date Expiration Date V isits Requested Visits Authorized [id number] Authorized 08/19/2021 08/19/2022 99 99 Encounter Details Date Type Department Care Team Description 08/30/2021 Hem/Onc Treatment Hematology/Oncology Treatment, [place] [address] [place] [address] Maddy, Chair 2 Hem Onc [address] [place] [address] 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 As needed 0 Active Essie-3 Fatty Acids (FISH OIL) 1000 MG Capsule [...] as of this encounter (statuses as of 08/30/2021) Active Problems Problem Noted Date Adenocarcinoma of esophagus metastatic t o intra-abdominal lymph node 08/17/2021 Kidney stones 08/16/2021 RINA (stress urinary incontinence), male 08/16/2021 Renal cyst, acquired 08/16/2021 Encounter for antineoplastic chemotherap y 08/04/2021 Malignant neoplasm of overlapping sites of stomach 07/21/2021 Prostate cancer 12/31/2013 Other ventral hernia without mention of obstruction or gangrene 05/03/2012 documented as of this encounter (statuses as of 08/30/2021) Resolved Problems Problem Noted Date Resolved Date Elevated prostate specific antigen (PSA) 011 12/31/2013 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 VAD flushed yielding positive blood return. Vitaline pump connected to VAD; line unclamped and 5FU infusion started. Goals: Pt will remain free from injury. Possible barriers to meeting goals: risk of infusion reaction, ambulation with IV pole Stability of the patient: Moderately stable - low risk of patient condition declining or worsening Summary regarding today's goals: Met: Pt remained free from injury during treatment today. Discharged in stable condition. Goals: Pt will demonstrate understanding. Possible barriers to meeting goals: limited medical knowledge/understanding, anxiety re: starting treatment Stability of the patient: Moderately stable - low risk of patient condition declining or worsening Summary regarding today's goals: Met: Reviewed medications and infusion process; pt verbalized understanding and asked appropriate questions. No coverage. * Danielle Calvert RN - 08/30/2021 11:49 AM EST Functional status at today's visit: Ambulatory and [...] during treatment. * Danielle Calvert RN - 08/30/2021 10:55 AM EST FOLFOX D1C1, chair 2. Labs reviewed by Dr. Melo on 08/29/21; proceed with treatment as ordered. VADaccessed; D5W infusing. Safety and Risk for Injury Patient will remain free from injury. Ensure appropriate safety devices are available. Provide and maintain safe environment. Knowledge Deficit Patient and Caregiver will demonstrate understanding. Assess current knowledge base. Reinforce education. Teach at level of understanding. documented in this encounter Plan of Treatment Upcoming Encounters Date Type Specialty Care Team Description 09/01/2021 Immunization/Injection Hematology Oncolog y Nurse, Med [address] [place] [address] 09/06/2021 Office Visit Gastroenterology Angela Herbert CRNP [address] [place] [address] 09/08/2021 Laboratory Laboratory Maddy, Lab Scenery [address] [place] [address] 09/08/2021 Office Visit Hematology Oncology Emperatriz Blackman CRNP [address] [place] [address] 09/12/2021 Laboratory Laboratory Maddy Lab Scenery [address] [place] [address] 09/13/2021 Office Visit Hematology Oncology Emperatriz Blackman CRNP [address] [place] [address] 09/13/2021 Hem/Onc Treatment Hematology Oncology [place], Chair 4 Hem Onc Scenery [address] [place] [address] 12/14/2021 Office Visit Urology Cm Rhodes MD [address] [facility] [address] [place] [id number] Health Maintenance Due Date Last Done Comments [...] of this encounter Implants Implanted Type Area Pharmacy Messenger Device Identifier Shelf Expiration Date Model / Serial / Lot Cath Power Port 6fr Clearvue - [id number] Implanted:Qty : 1 on 08/10/2021 by Alexander Rodriguez MD at [facility] Left: Subclavian CR BARD : PERIPHERAL VASCULAR 08/21/2021 [id number] / / documented as of this encounter [...] Intravenous, at 50 mL/hr, CONTINUOUS, Starting on Sun08/30/21 at 1130, Until Sun08/30/21 at 2129 Start Infusion 08/30/2021 10:55 AM EST 500 mL 50 mL/hr diphenhydrAMINE (Benadryl) inj 50 mg 50 mg, IV Push, ONCE PRN Other, Hypersensitivity Reaction, Starting on Sun08/30/21 at 1055, Until Sun08/31/21 at 1054, For 24 hours EPINEPHrine 1 MG/ML inj 0.3 mg 0.3 mg, Intramuscular, ONCE PRN Other, Hypersensitivity Reaction or Anaphylaxis, Starting on Sun08/30/21 at 1055, Until Sun08/31/21 at 1054, For 24 hours hEParin 100 UNIT/ML Lock Flush inj 500 Units 500 Units (5 mL), IV Lock, PRN Other, IV Flush, Starting on Sun08/30/21 at 1055, Until Sun08/31/21 at 1054, For 24 hours, Do not flush if lock, PICC, or central line not in place; IV infusing or unable to flush. Hydrocortisone Na Succinate PF (Solu-Cortef) inj 100 mg 100 mg, IV Push, ONCE PRN Other, Hypersensitivity Reaction, Starting on Sun08/30/21 at 1055, Until Sun08/31/21 at 1054, For 24 hours sodium chloride 0.9% flush/inj 10 mL 10 mL, IV Push, PRN Other, IV Flush, Starting on Sun08/30/21 at 1055, Until Sun08/31/21 at 1054, For 24 hours, Do not flush if lock, PICC, or central line not in place; IV infusing or unable to flush. Given 08/30/2021 1:54 PM EST 10 mL Inactive Administered Medications - up to 3 most recent administrations Medication Order MAR Action Action Date Dose Rate Site Dexamethasone (Decadron) tab 12 mg 12 mg, Oral, ONCE, On Sun08/30/21 at 1130, For 1 dose Given 08/30/2021 11:05 AM EST 12 mg Fluorouracil (5-Fu) 4,650 mg for Home Infusion 4,650 mg (rounded from 4,656 mg = 2,400 mg/m2 1.94 m2 Treatment Plan BSA from Recorded weight), Intravenous, Administer over 46 Hours, Home Infusion Pharmacy to specify base solution and volume. Total Rfst=5143 mg/m2 for 46 hours, ONCE, 1 dose, On Sun08/30/21 at 1600 Start Infusion 08/30/2021 2:01 PM EST 4,650 mg Fluorouracil (5-Fu) inj 775 mg 775 mg (rounded from 776 mg = 400 mg/m2 1.94 m2 Treatment Plan BSA from Recorded weight), IV Push, ONCE, 1 dose, On Sun08/30/21 at 1545 Given 08/30/2021 1:53 PM EST 775 mg leucovorin calcium 800 mg in D5W 250 mL INFUSION 800 mg (rounded from 776 mg = 400 mg/m2 1.94 m2 Treatment Plan BSA from Recorded weight), IV Piggyback, at 125 mL/hr Administer over 120 Minutes, ONCE, 1 dose, On Sun08/30/21 at 1345, Before 5-FU Start Infusion 08/30/2021 11:43 AM EST 800 mg 125 mL/hr Oxaliplatin (Eloxatin) 150 mg in D5W 500 mL infusion 150 mg (rounded from 164.9 mg = 85 mg/m2 1.94 m2 Treatment Plan BSA from Recorded weight), IV Piggyback, at 250 mL/hr Administer over 120 Minutes, Flush with D5W only!, ONCE, 1 dose, On Sun08/30/21 at 1145 Start Infusion 08/30/2021 11:43 AM EST 150 mg 250 mL/hr palonosetron (Aloxi) inj SOLN 0.25 mg 0.25 mg, IV Push, ONCE, On Sun08/30/21 at 1130, For 1 dose, Restricted per [facility] antiemetic guidelines Given 08/30/2021 11:05 AM EST 0.25 mg documented in this encounter Advance Directives Documents on File Type Date Recorded Patient Slitter Service And Setter Expl 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 Care Teams Fare Collector Relationship Specialty Start Date End Date Hortencia Leal PA-C [address] [place] [address] PCP - General Physician Net Trainer 02/08/18 documented as of this encounter
--- OUTSIDE RECORDS SUMMARY | 2023-06-27 07:59 | External Medical Summary | Summary of Care ---
Author Name Unknown Organization [place] [address] Care Team Providers Care Document Coordinator Name Role Phone Hortencia Leal PA-C Primary Care Provid er Reason for Visit * Reason Onset Date Comments Information 09/13/2021 Encounter Details Date Type Department Care Team Description 09/13/2021 Telephone Hematology/Oncology Treatment, [address] [place] [address] Nik Melo MD 200 [place] [address] Information Allergies Active Allergy Reactions Severity Noted [...] times a day. As needed 0 Active [place]-3 Fatty Acids (FISH OIL) 1000 MG [...] Visit Hematology Oncology Emperatriz Blackman CRNP [address] [facility] [address] [place] [address] 09/14/2021 Hem/Onc Treatment Hematology Oncology [place], Chair 2 Hem Onc Scen[address] [place] [address] 12/14/2021 Office Visit Urology Cm Rhodes MD 27 [facility] [address] [place] [address] Health Maintenance Due Date Last Done Comments [...] of this encounter Implants Implanted Type Area Local Company Hazmat Driver Device Identifier Shelf Expiration Date Model / Serial / Lot Cath Power Port 6fr Clearvue - [id number] Implanted:Qty : 1 on 08/10/2021 by Alexander Rodriguez MD at [place] [facility] Left: Subclavian CR BARD : PERIPHERAL VASCULAR 08/21/2021 [id number] / / documented as of this encounter Advance Directives Documents on File Type Date Recorded Patient Appointment Coordinator Expl 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 Care Teams Document Coordinator Relationship Specialty Start Date End Date Hortencia Leal PA-C [address] [facility], [place] [address] PCP - General Physician Slasher Tender Helper 02/08/18 documented as of this encounter
--- OUTSIDE RECORDS SUMMARY | 2023-06-27 07:59 | External Medical Summary ---
Author Name Unknown Address Unknown Organization K09:[facility] [place] [address] Laboratory Report Ordering Provider Test Date Status SHAY CH 09/13/2021 10:13:40 Final Observation Date Value Abnormality Reference (Units ) Status SYNC LEUKOCYTES IN BLOOD BY AUTOMATED COUNT 09/13/2021 10:13:40 4.41 4.00-10.80 (K/uL) Final Segs 09/13/2021 10:13:40 61.0 40.0-75.0 (%) Final Lymphs % 09/13/2021 10:13:40 22.7 18.0-42.0 (%) Final Monos 09/13/2021 10:13:40 12.2 Above high normal 1.0-11.0 (%) Final Eosinophils 09/13/2021 10:13:40 3.6 0.0-6.0 (%) Final Basos 09/13/2021 10:13:40 0.5 0.0-2.0 (%) Final Absolute Segs 09/13/2021 10:13:40 2.69 1.80-7.70 (K/uL) Final Lymphs, absolute 09/13/2021 10:13:40 1.00 1.00-4.80 (K/ul) Final Monos, Abs 09/13/2021 10:13:40 0.54 0.00-1.10 (K/uL) Final Eos, Abs 09/13/2021 10:13:40 0.16 0.00-0.70 (K/uL) Final Basos, Abs 09/13/2021 10:13:40 0.02 0.00-0.20 (K/uL) Final Performing Location [facility] [address]
--- OUTSIDE RECORDS SUMMARY | 2023-06-27 07:59 | External Medical Summary | Summary of Care ---
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) Procedures [place] LEUCOVORIN CALCIUM INJECTION [place] PALONOSETRON HCL [place] FLUOROURACIL INJECTION [place] OXALIPLATIN Nik Melo MD [address] [place] [address] Anc Hem/Onc [place] Castañ[place] [address] [place] [phone] Referral ID Status Reason Start Date Expiration Date V isits Requested Visits Authorized [id number] Authorized 08/19/2021 08/19/2022 99 99 Encounter Details Date Type Department Care Team Description 09/01/2021 Immunization/I njection Hematology/Oncology Treatment, [place] [address] [place] [address] Nurse, Med [address] [place] [address] [address] 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)*; Encounter for antineoplastic chemotherapy; 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); Encounter for adjustment and management of vascular access device Allergies Active Allergy Reactions Severity Noted Date Comments Amlodipine 11/02/2020 dizziness Codeine Sulfate Other (Please comment) 10/26/19 11 hyperactivity Hydrochlorothiazide 11/02/2020 hypercalcemia documented as of this encounter (statuses as of 09/01/2021) Medications Medication Sig Dispensed Refills Start Date [...] as of this encounter (statuses as of 09/01/2021) Active Problems Problem Noted Date Adenocarcinoma of esophagus metastatic t o intra-abdominal lymph node 08/17/2021 Kidney stones 08/16/2021 RINA (stress urinary incontinence), male 08/16/2021 Renal cyst, acquired 08/16/2021 Encounter for antineoplastic chemotherap y 08/04/2021 Malignant neoplasm of overlapping sites of stomach 07/21/2021 Prostate cancer 12/31/2013 Other ventral hernia without mention of obstruction or gangrene 05/03/2012 documented as of this encounter (statuses as of 09/01/2021) Resolved Problems Problem Noted Date Resolved Date Elevated prostate specific antigen (PSA) 011 12/31/2013 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 Vitaline pump clamped and disconnected; reservoir volume at 0ml. VAD flushed with 10 ml NSS and Heparin 5 ml (100 units/ml). Vasquez needle removed intact. Pt discharged in stable condition. documented in this encounter Plan of Treatment Upcoming Encounters Date Type Specialty Care Team Description 09/06/2021 Office Visit Gastroenterology Angela Herbert CRNP [address] [facility] [place] [address] 09/13/2021 Laboratory Laboratory Maddy, Lab Scenery [address] [place] [address] 09/14/2021 Office Visit Hematology Oncology Emperatriz Blackman CRNP [address] [place] [address] 09/14/2021 Hem/Onc Treatment Hematology Oncology Maddy, Chair 2 Hem Onc Scenery [address] [place] [address] 12/14/2021 Office Visit Urology Cm Rhodes MD 27 [facility] [address] [place] [address] Health Maintenance Due Date Last Done [...] this encounter Implants Implanted Type Area Forest Resource Specialist Device Identifier Shelf Expiration Date Model / Serial / Lot Cath Power Port 6fr Clearvue - [id number] Implanted:Qty : 1 on 08/10/2021 by Alexander Rodriguez MD at OR [place] Left: Subclavian CR BARD : PERIPHERAL VASCULAR 08/21/2021 [id number] / / documented as of this encounter [...] PRN Other, IV Flush, Starting on Chandrika 09/01/21 at 1212, Until Sun09/02/21 at 1211, For 24 hours, Do not flush if lock, PICC, or central line not in place; IV infusing or unable to flush. Given 09/01/2021 12:16 PM EST 500 Units sodium chloride 0.9% flush/inj 10 mL 10 mL, IV Push, PRN Other, IV Flush, Starting on Chandrika 09/01/21 at 1212, Until 09/02/21 at 1211, For 24 hours, Do not flush if lock, PICC, or central line not in place; IV infusing or unable to flush. Given 09/01/2021 12:17 PM EST 10 mL documented in this encounter Advance Directives Documents on File Type Date Recorded Patient Child Care Aide Expl 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 Care Teams Revenue Officer Relationship Specialty Start Date End Date Hortencia Leal PA-C [address] [place] [address] PCP - General Physician Auto Wash Buffer 02/08/18 documented as of this encounter
--- OUTSIDE RECORDS SUMMARY | 2023-06-27 07:59 | External Medical Summary | Summary of Care ---
Author Name Unknown Organization [place] [address] Care Team Providers Care Coil Tier Name Role Phone Hortencia Leal PA-C Primary Care Provid er Encounter Details Date Type Department Care Team Description 09/12/2021 Orders Only Hematology/Oncology [facility] [address] [facility] [place] [address] Nik Melo MD 200 [facility] [place] [address] Allergies Active Allergy Reactions Severity Noted Date [...] times a day. As needed 0 Active [place]-3 Fatty Acids (FISH OIL) 1000 MG Capsule [...] Maddy, Lab Scenery [address] [place] [address] 09/14/2021 Office Visit Hematology Oncology Emperatriz Blackman CRNP [address] [place] [address] 09/14/2021 Hem/Onc Treatment Hematology Oncology Maddy, Chair 2 Hem Onc Scenery [address] [place] [address] 12/14/2021 Office Visit Urology Cm Rhodes MD [address] [address] Health Maintenance Due Date [...] this encounter Implants Implanted Type Area Senior Materials Scientist Device Identifier Shelf Expiration Date Model / Serial / Lot Cath Power Port 6fr Clearvue - [id number] Implanted:Qty : 1 on 08/10/2021 by Alexander Rodriguez MD at [place] [facility] Left: Subclavian CR BARD : PERIPHERAL VASCULAR 08/21/2021 [id number] / / documented as of this encounter Advance Directives Documents on File Type Date Recorded Patient Outbound Sales Agent Expl 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 Care Teams Coil Tier Relationship Specialty Start Date End Date Hortencia Leal PA-C [address] [place] [address] PCP - General Physician Client Support Administrator 02/08/18 documented as of this encounter
--- OUTSIDE RECORDS SUMMARY | 2023-06-27 07:59 | External Medical Summary | Summary of Care ---
Author Name Unknown Organization [place] [address] Care Team Providers Care Typesetter Apprentice Name Role Phone Hortencia Leal PA-C Primary Care Provid er Reason for Visit * Reason Onset Date Comments Treatment 08/29/2021 Encounter Details Date Type Department Care Team Description 08/29/2021 Telephone [facility] [place] [facility] [address] Nik Melo MD [address] [facility] [place] [address] Treatment Allergies Active Allergy Reactions Severity Noted Date [...] times a day. As needed 0 Active [place]-3 Fatty Acids (FISH OIL) 1000 MG Capsule [...] Telephone Encounter - Ajit Ferguson CMA - 08/29/2021 1:05 PM EST Received a voicemail from the pt asking how long his treatment scheduled for 08/30 would take. Called and spoke to the pt to inform him that his appt was scheduled for 10:15 AM and would take approximately three hours. Pt verbalized understanding. 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); Encounter for antineoplastic chemotherapy 09/06/2021 Office Visit Gastroenterology Angela Herbert CRNP [address] [place] [address] 12/14/2021 Office Visit Urology Cm Rhodes MD [address] [facility] [address] [place] [address] (work) Health Maintenance Due Date Last Done Comments [...] this encounter Implants Implanted Type Area Senior Instructional Designer Device Identifier Shelf Expiration Date Model / Serial / Lot Cath Power Port 6fr Clearvue - [id number] Implanted:Qty : 1 on 08/10/2021 by Alexander Rodriguez MD at OR [facility] Left: Subclavian CR BARD : PERIPHERAL VASCULAR 08/21/2021 [id number] / / documented as of this encounter Advance Directives Documents on File Type Date Recorded Patient Sales And Management Trainee Expl 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 Care Teams Typesetter Apprentice Relationship Specialty Start Date End Date Hortencia Leal PA-C [address] [place] [address] PCP - General Physician Photostat Operator Helper 02/08/18 documented as of this encounter
--- OUTSIDE RECORDS SUMMARY | 2023-06-27 07:59 | External Medical Summary | Summary of Care ---
Author Name Unknown Organization [place] [address] Care Team Providers Care Dynamo Repairer Name Role Phone Hortencia Leal PA-C Primary Care Provid er Reason for Visit * Reason Onset Date Comments Test Results 08/29/2021 Encounter Details Date Type Department Care Team Description 08/29/2021 Telephone Hematology/Oncology Treatment, [place] 200 [place] [address] Nik Melo MD 200 [facility] [place] [address] Test Results Allergies Active Allergy Reactions Severity Noted Date [...] times a day. As needed 0 Active [place]-3 Fatty Acids (FISH OIL) 1000 MG Capsule [...] Telephone Encounter - Lakeisha Cortez RN - 08/29/2021 3:35 PM EST Creatinine improved from last set of CMP, HGB slightly lower than 08/03. Dr Melo is OK with labs for C1D1 FOLFOX tomorrow. 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); Encounter for antineoplastic chemotherapy 09/06/2021 Office Visit Gastroenterology Angela Herbert CRNP [address] [place] [address] 12/14/2021 Office Visit Urology Cm Rhodes MD [address] [place] [address] [place] [address] Health Maintenance [...] of this encounter Implants Implanted Type Area Booking Supervisor Device Identifier Shelf Expiration Date Model / Serial / Lot Cath Power Port 6fr Clearvue - [id number] Implanted:Qty : 1 on 08/10/2021 by Alexander Rodriguez MD at [facility] Left: Subclavian CR BARD : PERIPHERAL VASCULAR 08/21/2021 [id number] / / documented as of this encounter Advance Directives Documents on File Type Date Recorded Patient Supervisor Remelt Expl 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 Care Teams Dynamo Repairer Relationship Specialty Start Date End Date Hortencia Leal PA-C [address] [place] [address] PCP - General Physician Inspector Rag Sorting 02/08/18 documented as of this encounter
--- OUTSIDE RECORDS SUMMARY | 2023-06-27 07:59 | External Medical Summary ---
Author Name Unknown Address Unknown Organization [id number]:[facility] [place] [address] Laboratory Report Ordering Provider Test Date Status SHAY CH 09/13/2021 10:13:40 Final Observation Date Value Abnormality Reference (Units ) Status WBC, Total 09/13/2021 10:13:40 4.41 4.00-10.8 0 (K/uL) Final RBC 09/13/2021 10:13:40 2.47 Below low normal 4.5 0-5.25 (M/uL) Final Hemoglobin 09/13/2021 10:13:40 7.2 Below low normal 14 .0-16.8 (g/dL) Final HCT 09/13/2021 10:13:40 25.0 Below low normal 40. 0-48.4 (%) Final MCV 09/13/2021 10:13:40 101.2 Above high normal 82 .0-99.5 (fL) Final MCH 09/13/2021 10:13:40 29.1 27.0-34.0 (pg) Final MCHC 09/13/2021 10:13:40 28.8 Below low normal 32. 0-36.0 (g/dL) Final RDW 09/13/2021 10:13:40 16.5 Above high normal 11 .5-15.5 (%) Final Platelets 09/13/2021 10:13:40 206 140-400 (K /uL) Final MPV 09/13/2021 10:13:40 8.6 6.6-11.1 ( fL) Final Performing Location [facility] [place] [address]
--- OUTSIDE RECORDS SUMMARY | 2023-06-27 08:00 | External Medical Summary ---
Author Name Unknown Address Unknown Organization K09:[facility] [place] [address] Laboratory Report Ordering Provider Test Date Status SHAY CH 08/29/2021 09:11:45 Final Observation Date Value Abnormality Reference (Units ) Status WBC, Total 08/29/2021 09:11:45 7.65 4.00-10.8 0 (K/uL) Final RBC 08/29/2021 09:11:45 2.57 Below low normal 4.5 0-5.25 (M/uL) Final Hemoglobin 08/29/2021 09:11:45 7.9 Below low normal 14 .0-16.8 (g/dL) Final HCT 08/29/2021 09:11:45 26.6 Below low normal 40. 0-48.4 (%) Final MCV 08/29/2021 09:11:45 103.5 Above high normal 82 .0-99.5 (fL) Final MCH 08/29/2021 09:11:45 30.7 27.0-34.0 (pg) Final MCHC 08/29/2021 09:11:45 29.7 Below low normal 32. 0-36.0 (g/dL) Final RDW 08/29/2021 09:11:45 17.3 Above high normal 11 .5-15.5 (%) Final Platelets 08/29/2021 09:11:45 308 140-400 (K /uL) Final MPV 08/29/2021 09:11:45 8.5 6.6-11.1 ( fL) Final Performing Location [facility] [address]
--- OUTSIDE RECORDS SUMMARY | 2023-06-27 08:00 | External Medical Summary | Summary of Care ---
Author Name Unknown Organization [place] [address] Care Team Providers Care Supervisor Adult Education Name Role Phone Hortencia Leal PA-C Primary Care Provid er Reason for Visit * Reason Onset Date Comments Precert Future 08/17/2021 FOLFOX Encounter Details Date Type Department Care Team Description 08/17/2021 Telephone [facility]ematology[facility] [place] [facility] [address] Nik Melo MD 200 [facility] [place] [address] [phone] Precert Future (FOLFOX) Allergies Active Allergy Reactions Severity Noted Date Comments Amlodipine 11/02/2020 dizziness Codeine Sulfate Other (Please comment) 10/26/19 11 hyperactivity Hydrochlorothiazide 11/02/2020 hypercalcemia documented as of this encounter (statuses as of 08/23/2021) Medications Medication Sig Dispensed Refills Start Date [...] times a day. 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 07/21/2021 Prostate cancer 12/31/2013 Other ventral hernia without mention of obstruction or gangrene 05/03/2012 documented as of this encounter (statuses as of 08/23/2021) Resolved Problems Problem Noted Date Resolved Date Elevated prostate specific antigen (PSA) 011 12/31/2013 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 documented as of this encounter (statuses as of 08/23/2021) Immunizations Name Administration Dates Next Due COVID-19 mRNA, LNP-s, No Pre serve, 2-Dose Series (Moderna) 02/14/2021,01/17/2021 Influenza Virus Vaccine, Unspecified Formulation 07/30/2021 documented as of this encounter Social History Tobacco Use Types Packs/Day Years Used Date Never Smoker Smokeless Tobacco: Never Used Alcohol Use Drinks/Week oz/Week Comments No Sex Assigned at Date Recorded Not on file Job Start Date Occupation Industry Not on file Not on file Not on file documented as of this encounter Miscellaneous Notes * Telephone Encounter - Venita Byers RN - 08/23/2021 7:53 AM EDT Referral location changed to . Scheduling: please contact patient to schedule Day prior to treatment - labs "CBCd, CMP" - must be prior to noon at / SP Treatment - 503 schedule for 3 hour appt "C1D1 FOLFOX- [facility]" ([place]) - must be a Sunday or Sunday as patient will need to return to office 2 days later for pump disconnect * Telephone Encounter - Venita Byers RN - 08/22/2021 8:10 AM EDT When beacon plan built, listed location was [facility]. Referral entered for [facility]. Adjusted beacon plan to reflect that patient will receive treatment at . Waiting for new referral. * Telephone Encounter - Venita Byers RN - 08/17/2021 3:19 PM EDT Order received for FOLFOX. [place] plan adjusted. Waiting for precert. Patient already had port placed 08/10/21- CXR in chart. Hep B labs 08/03/21. TE sent to [employer]. Faxed office note to PCP per patient request. documented in this encounter Plan of Treatment Upcoming Encounters Date Type Specialty Care Team Description 09/06/2021 Office Visit Gastroenterology Angela Herbert CRNP [address] [facility] [place] [address] 12/14/2021 Office [facility] [address] [place] [address] Scheduled Orders Name Type Priority Associated Diagnoses Orde r Schedule CBC WITH WBC DIFFERENTIAL Lab STAT Malignant neoplasm of overlapping sites of stomach (HCC) Every 2 Weeks for 26 Occurrences starting 08/17/2021 until 08/17/2022 COMPREHENSIVE METABOLIC PANEL Lab STAT Malignant neoplasm of overlapping sites of stomach (HCC) Every 2 Weeks for 26 Occurrences starting 08/17/2021 until 08/17/2022 Health Maintenance Due Date Last Done Comments [...] of this encounter Implants Implanted Type Area Radiology Teacher Device Identifier Shelf Expiration Date Model / Serial / Lot Cath Power Port 6fr Clearvue - [id number] Implanted:Qty : 1 on 08/10/2021 by Alexander Rodriguez MD at OR [facility] [place] Left: Subclavian CR BARD : PERIPHERAL VASCULAR 08/21/2021 [id number] / / documented as of this encounter Visit Diagnoses Diagnosis Malignant neoplasm of overlapping sites of stomach (HCC)- Primary Malignant neoplasm of other specified sites of stomach documented in this encounter Advance Directives Documents on File Type Date Recorded Patient K 12 Principal Expl anation Advanced Directive Advanced Directive 01/03/2011 12:00 AM Advanced Directive 10/25/2011 12:00 AM Advanced Directive Advanced Directive Advanced Directive Advanced Directive Advanced Directive Advanced Directive Advanced Directive Advanced Directive Advanced Directive Advanced Directive Advanced Directive Advanced Directive Advanced Directive Advanced Directive Advanced Directive Advanced Directive Advanced Directive Advanced Directive Advanced Directive Advanced Directive Advanced Directive Advanced Directive 07/15/2021 12:15 PM Advanced Directive Advanced Directive Advanced Directive Advanced Directive Advanced Directive Advanced Directive Advanced Directive Advanced Directive Advanced Directive Advanced Directive 08/10/2021 8:17 AM Advanced Directive Advanced Directive Advanced Directive Advanced Directive Advanced Directive Advanced Directive Latest Code Status on File Code Status [...]
--- OUTSIDE RECORDS SUMMARY | 2023-06-27 08:00 | External Medical Summary | Summary of Care ---
Author Name Unknown Organization [place] [address] Care Team Providers Care Carver And Checkerer Specials Name Role Phone Hortencia Leal PA-C Primary Care Provid er Reason for Visit * Reason Onset Date Comments Precert Future 08/17/2021 FOLFOX Encounter Details Date Type Department Care Team Description 08/17/2021 Telephone [facility]ematology[facility] [place] [facility] [address] Nik Melo MD 200 [facility] [place] [address] [phone] Precert Future (FOLFOX) Allergies Active Allergy Reactions Severity Noted Date Comments Amlodipine 11/02/2020 dizziness Codeine Sulfate Other (Please comment) 10/26/19 11 hyperactivity Hydrochlorothiazide 11/02/2020 hypercalcemia documented as of this encounter (statuses as of 08/26/2021) Medications Medication Sig Dispensed Refills Start Date [...] times a day. 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 07/21/2021 Prostate cancer 12/31/2013 Other ventral hernia without mention of obstruction or gangrene 05/03/2012 documented as of this encounter (statuses as of 08/26/2021) Resolved Problems Problem Noted Date Resolved Date Elevated prostate specific antigen (PSA) 011 12/31/2013 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 Scheduling: please contact patient. Thanks! * Telephone Encounter - Steffi Zapata OSA - 08/25/2021 8:31 AM EDT Called X2. lmom for patient. * Telephone Encounter - Steffi Zapata OSA - 08/23/2021 8:29 AM EDT Called and lmom for patient. * Telephone Encounter - Venita Byers [...] When beacon plan built, listed location was [facility]. Referral entered for [facility]. Adjusted beacon plan to reflect that patient will receive treatment at . Waiting for new referral. * Telephone Encounter - Venita Byers RN - 08/17/2021 3:19 PM EDT Order received for FOLFOX. [place] plan adjusted. Waiting for precert. Patient already had port placed 08/10/21- CXR in chart. Hep B labs 08/03/21. TE sent to [facility]. Faxed office note to PCP per patient request. documented in this encounter Plan of Treatment Upcoming Encounters Date Type Specialty Care Team Description 09/06/2021 Office Visit Gastroenterology Angela Herbert CRNP 132 [facility] [place] [address] 12/14/2021 Office Visit Urology Cm Rhodes MD 27 [facility] [address] [place] [address] Scheduled Orders [...] of this encounter Implants Implanted Type Area Refund Clerk Device Identifier Shelf Expiration Date Model / Serial / Lot Cath Power Port 6fr Clearvue - [id number] Implanted:Qty : 1 on 08/10/2021 by Alexander Rodriguez MD at [facility] Left: Subclavian CR BARD : PERIPHERAL VASCULAR 08/21/2021 [id number] / / documented as of this encounter Visit Diagnoses Diagnosis Malignant neoplasm of overlapping sites of stomach (HCC)- Primary Malignant neoplasm of other specified sites of stomach documented in this encounter Advance Directives Documents on File Type Date Recorded Patient Manager Internet Retails Sales Expl anation Advanced Directive Advanced Directive 01/03/2011 [...]
--- OUTSIDE RECORDS SUMMARY | 2023-06-27 08:00 | External Medical Summary | Summary of Care ---
Author Name Unknown Organization [place] [address] Care Team Providers Care Sign Hanger Supervisor Name Role Phone Hortencia Leal PA-C Primary Care Provid er Reason for Visit * Reason Onset Date Comments Precert Future 08/17/2021 FOLFOX Encounter Details Date Type Department Care Team Description 08/17/2021 Telephone Hematology/Oncology [facility] [place] [facility] [address] Nik Melo MD 200 [place] [address] [phone] Precert Future (FOLFOX) Allergies Active Allergy Reactions Severity Noted Date Comments Amlodipine 11/02/2020 dizziness Codeine Sulfate Other (Please comment) 10/26/19 11 hyperactivity Hydrochlorothiazide 11/02/2020 hypercalcemia documented as of this encounter (statuses as of 08/25/2021) Medications Medication Sig Dispensed Refills Start Date [...] times a day. 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 07/21/2021 Prostate cancer 12/31/2013 Other ventral hernia without mention of obstruction or gangrene 05/03/2012 documented as of this encounter (statuses as of 08/25/2021) Resolved Problems Problem Noted Date Resolved Date Elevated prostate specific antigen (PSA) 011 12/31/2013 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 Referral entered for [facility]. Adjusted beacon plan to reflect that patient will receive treatment at . Waiting for new referral. * Telephone Encounter - Venita Byers RN - 08/17/2021 3:19 PM EDT Order received for FOLFOX. [place] plan adjusted. Waiting for precert. Patient already had port placed 08/10/21- CXR in chart. Hep B labs 08/03/21. TE sent to [facility]. Faxed office note to PCP per patient request. documented in this encounter Plan of Treatment Upcoming Encounters Date Type Specialty Care Team Description 09/06/2021 Office Visit Gastroenterology Angela Herbert CRNP 132 [facility] [place] [address] 12/14/2021 Office Visit Urology Cm Rhodes MD [address] [address] [place] [address] Scheduled Orders Name Type [...] of this encounter Implants Implanted Type Area Insulation Board Calender Operator Device Identifier Shelf Expiration Date Model / Serial / Lot Cath Power Port 6fr Clearvue - [id number] Implanted:Qty : 1 on 08/10/2021 by Alexander Rodriguez MD at [place] [facility] [place] Left: Subclavian CR BARD : PERIPHERAL VASCULAR 08/21/2021 [id number] / / documented as of this encounter Visit Diagnoses Diagnosis Malignant neoplasm of overlapping sites of stomach (HCC)- Primary Malignant neoplasm of other specified sites of stomach documented in this encounter Advance Directives Documents on File Type Date Recorded Patient Vacuum Cleaner Mechanic Expl anation Advanced Directive Advanced Directive 01/03/2011 [...]
--- OUTSIDE RECORDS SUMMARY | 2023-06-27 08:00 | External Medical Summary ---
Author Name Unknown Address Unknown Organization K09:[facility] [place] [place] [address] Laboratory Report Ordering Provider Test Date Status SHAY CH 08/29/2021 09:11:45 Final Observation Date Value Abnormality Reference (Units ) Status SYNC LEUKOCYTES IN BLOOD BY AUTOMATED COUNT 08/29/2021 09:11:45 7.65 4.00-10.80 (K/uL) Final Segs 08/29/2021 09:11:45 63.8 40.0-75.0 (%) Final Lymphs % 08/29/2021 09:11:45 23.4 18.0-42.0 (%) Final Monos 08/29/2021 09:11:45 10.3 1.0-11.0 (%) Final Eosinophils 08/29/2021 09:11:45 2.2 0.0-6.0 (%) Final Basos 08/29/2021 09:11:45 0.3 0.0-2.0 (%) Final Absolute Segs 08/29/2021 09:11:45 4.88 1.80-7.70 (K/uL) Final Lymphs, absolute 08/29/2021 09:11:45 1.79 1.00-4.80 (K/ul) Final Monos, Abs 08/29/2021 09:11:45 0.79 0.00-1.10 (K/uL) Final Eos, Abs 08/29/2021 09:11:45 0.17 0.00-0.70 (K/uL) Final Basos, Abs 08/29/2021 09:11:45 0.02 0.00-0.20 (K/uL) Final Performing Location [facility] [place] [place] [address]
--- OUTSIDE RECORDS SUMMARY | 2023-06-27 08:00 | External Medical Summary | Summary of Care ---
Author Name Unknown Organization [place] [address] Care Team Providers Care Geothermal Technician Name Role Phone Hortencia Leal PA-C Primary Care Provid er Reason for Visit * Reason Onset Date Comments Treatment 08/26/2021 Encounter Details Date Type Department Care Team Description 08/26/2021 Telephone [facility] [place] [address] [facility] [place] [address] Nik Melo MD 200 [place] [address] [phone] Treatment Allergies Active Allergy Reactions Severity Noted [...] times a day. As needed 0 Active [place]-3 Fatty Acids (FISH OIL) 1000 MG Capsule [...] RN - 08/26/2021 10:28 AM EDT See other TE 08/17/21- scheduling has left several messages for patient to try to get him scheduledto start treatment. Sent message to contact patient again. * Telephone Encounter - Ajit Ferguson CMA - 08/26/2021 10:13 AM EDT Pt called and left a message asking when he will begin chemotherapy. Pt can be reached at [phone]. documented in this encounter Plan of Treatment Upcoming Encounters Date Type Specialty Care Team Description 09/06/2021 Office Visit Gastroenterology Angela Herbert CRNP [address] [place] [address] 12/14/2021 Office Visit Urology Cm Rhodes MD [address] [place] [address] Health Maintenance Due [...] of this encounter Implants Implanted Type Area Foreign Policy Officer Device Identifier Shelf Expiration Date Model / Serial / Lot Cath Power Port 6fr Clearvue - [id number] Implanted:Qty : 1 on 08/10/2021 [place] Rodriguez [place] [facility] [place] Subclavian CR BARD : PERIPHERAL VASCULAR 08/21/2021 [id number] / / documented as of this encounter Advance Directives Documents on File Type Date Recorded Patient Stock Unloader Expl anation Advanced Directive Advanced Directive 01/03/2011 [...]
--- OUTSIDE RECORDS SUMMARY | 2023-06-27 08:00 | External Medical Summary | Summary of Care ---
Author Name Unknown Organization [place] [address] Care Team Providers Care Painter Ordnance Name Role Phone Hortencia Leal PA-C Primary Care Provid er Reason for Visit * Reason Onset Date Comments Precert Future 08/17/2021 FOLFOX Encounter Details Date Type Department Care Team Description 08/17/2021 Telephone Hematology/Oncology Treatment, [place] 200 [facility] [place] [address] Nik Melo MD 200 [place] [address] Precert Future (FOLFOX) Allergies Active Allergy Reactions [...] a day. As needed 0 Active [place]-3 Fatty Acids (FISH OIL) 1000 MG Capsule [...] * Telephone Encounter - TANI Johnson - 08/26/2021 10:44 AM EDT Patient scheduled for treatment to start on 08/30/21 and lab work to be drawn on 08/29. Done. * Telephone Encounter - Venita Byers RN - 08/26/2021 10:28 AM EDT See TE from today- patient called office asking when he can start treatment. Scheduling: please contact patient. Thanks! * Telephone Encounter - TANI Johnson - 08/25/2021 8:31 AM EDT Called [facility] lmom for patient. * Telephone Encounter - TANI Johnson - 08/23/2021 8:29 AM EDT Called and [...] When beacon plan built, listed location was [facility]. Referral entered for [facility]. Adjusted beacon plan to reflect that patient will receive treatment at . Waiting for new referral. * Telephone Encounter - Venita Byers RN - 08/17/2021 3:19 PM EDT Order received for FOLFOX. [place] plan adjusted. Waiting for precert. Patient already had port placed 08/10/21- CXR in chart. Hep B labs 08/03/21. TE sent to [facility]. Faxed office note to PCP per patient request. documented in this encounter Plan of Treatment Upcoming Encounters Date Type Specialty Care Team Description 08/29/2021 Laboratory Laboratory [place], Lab Scenery [address] [place] [address] 08/30/2021 Hem/Onc Treatment Hematology Oncology [place], Chair 2 Hem Onc Scenery [address] [place] [address] 09/06/2021 Office Visit Gastroenterology Angela Herbert CRNP [address] [place] [address] 12/14/2021 Office Visit Urology Cm Rhodes MD [address] [place] [address] [place] [address] Scheduled Orders Name Type Priority Associated Diagnoses [...] of this encounter Implants Implanted Type Area Contact And Service Clerks Supervisor Device Identifier Shelf Expiration Date Model / Serial / Lot Cath Power Port 6fr Clearvue - [id number] Implanted:Qty : 1 on 08/10/2021 by Alexander Rodriguez MD at [place] [facility] [place] Left: Subclavian CR BARD : PERIPHERAL VASCULAR 08/21/2021 [id number] / / documented as of this encounter Visit Diagnoses Diagnosis Malignant neoplasm of overlapping sites of stomach (HCC)- Primary Malignant neoplasm of other specified sites of stomach documented in this encounter Advance Directives Documents on File Type Date Recorded Patient Asphalt Plant Operator Expl anation Advanced Directive Advanced [...] and were consensually agreed upon. Care Teams Painter Ordnance Relationship Specialty Start Date End Date Hortencia Leal PA-C [address] [facility] [address] PCP - General Physician Chartered Wealth Manager 02/08/18 documented as of this encounter
--- OUTSIDE RECORDS SUMMARY | 2023-06-27 08:00 | External Medical Summary | Summary of Care ---
Author Name Unknown Organization [place] [address] Care Team Providers Care Burial Vault Deliverer And Installer Name Role Phone Hortencia Leal PA-C Primary Care Provid er Reason for Visit * Reason Onset Date Comments Precert Future 08/17/2021 FOLFOX Encounter Details Date Type Department Care Team Description 08/17/2021 Telephone Hematology/Oncology Treatment, [place] [address] [facility] [address] Nik Melo MD 200 [place] [address] [phone] Precert Future (FOLFOX) Allergies Active Allergy Reactions [...] times a day. As needed 0 Active [place]-3 Fatty Acids (FISH OIL) 1000 MG Capsule [...] When beacon plan built, listed location was [facility]. Referral entered for [facility]. Adjusted beacon plan to reflect that patient will receive treatment at . Waiting for new referral. * Telephone Encounter - Venita Byers RN - 08/17/2021 3:19 PM EDT Order received for FOLFOX. [place] plan adjusted. Waiting for precert. Patient already had port placed 08/10/21- CXR in chart. Hep B labs 08/03/21. TE sent to [facility]. Faxed office note to PCP per patient request. documented in this encounter Plan of Treatment Upcoming Encounters Date Type Specialty Care Team Description 09/06/2021 Office Visit Gastroenterology Angela Herbert CRNP [address] [place] [address] 12/14/2021 Office Visit Urology Cm Rhodes MD [address] [address] [place] [address] Scheduled Orders Name Type [...] of this encounter Implants Implanted Type Area Heading Pinner Device Identifier Shelf Expiration Date Model / Serial / Lot Cath Power Port 6fr Clearvue - [id number] Implanted:Qty : 1 on 08/10/2021 by Alexander Rodriguez MD at [facility] Left: Subclavian CR BARD : PERIPHERAL VASCULAR 08/21/2021 [id number] / / documented as of this encounter Visit Diagnoses Diagnosis Malignant neoplasm of overlapping sites of stomach (HCC)- Primary Malignant neoplasm of other specified sites of stomach documented in this encounter Advance Directives Documents on File Type Date Recorded Patient Film Examiner Expl anation Advanced Directive Advanced Directive 01/03/2011 [...]
--- OUTSIDE RECORDS SUMMARY | 2023-06-27 08:00 | External Medical Summary | Summary of Care ---
Author Name Unknown Organization [place] [address] Care Team Providers Care Personal Care Worker Name Role Phone Hortencia Leal PA-C Primary Care Provid er Reason for Visit * Reason Onset Date Comments Precert Future 08/17/2021 FOLFOX Encounter Details Date Type Department Care Team Description 08/17/2021 Telephone [facility] [place] [facility] [address] Nik Melo MD 200 [place] [address] [phone] Precert Future (FOLFOX) Allergies Active Allergy Reactions [...] times a day. As needed 0 Active [place]-3 Fatty Acids (FISH OIL) 1000 MG Capsule [...] Telephone Encounter - Steffi Zapata OSA - 08/26/2021 10:44 AM EDT Patient scheduled [...] When beacon plan built, listed location was [facility]. Referral entered for [facility]. Adjusted beacon plan to reflect that patient will receive treatment at . Waiting for new referral. * Telephone Encounter - Venita Byers RN - 08/17/2021 3:19 PM EDT Order received for FOLFOX. [place] plan adjusted. Waiting for precert. Patient already had port placed 08/10/21- CXR in chart. Hep B labs 08/03/21. TE sent to [facility]. Faxed office note to PCP per patient request. documented in this encounter Plan of Treatment Upcoming Encounters Date Type Specialty Care Team Description 08/29/2021 Laboratory Laboratory [place], Lab Scenery [address] [place] [address] [phone] 08/30/2021 Hem/Onc Treatment Hematology Oncology [place], Chair 2 Hem Onc Scenery [address] [place] [address] [phone] 09/06/2021 Office Visit Gastroenterology Angela Herbert CRNP [address] [place] [address] [phone] 12/14/2021 Office Visit Urology Cm Rhodes MD [address] [place] [id number] Scheduled Orders Name Type Priority Associated Diagnoses [...] of this encounter Implants Implanted Type Area Auto Body Repair Technician Device Identifier Shelf Expiration Date Model / Serial / Lot Cath Power Port 6fr Clearvue - [id number] Implanted:Qty : 1 on 08/10/2021 by Alexander Rodriguez MD at [place] [facility] Left: Subclavian CR BARD : PERIPHERAL VASCULAR 08/21/2021 [id number] / / documented as of this encounter Visit Diagnoses Diagnosis 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
--- OUTSIDE RECORDS SUMMARY | 2023-06-27 08:00 | External Medical Summary | Summary of Care ---
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 If unsure of category, use [facility] Gen[facility] Ask-A-Doc. Cancer Personal history of cancer? 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 30 Tab 0 08/03/2021 Active Acetaminophen 325 MG Oral Tablet (Tylenol) Take 325 mg by mouth every 6 hours as needed. 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 Rodriguez, Dr. Escalera, Dr. Barraza, and Dr. Glover Medical Oncology: Dr. Spann Radiation Oncology: Dr. Wilson, Dr. Wets, and Dr. Umanzor Pt presented for discussed at GI [facility] today for large tumor of GEJ, involving lower esophagus. Plan agreed upon is: diagnostic laparoscopy and mediport- plan for 08/10/2021, previously referred to Dr. Melo and Dr. Mccray- concurrent chemo/ RT contingent upon biopsy results, genetics referral. 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
--- OUTSIDE RECORDS SUMMARY | 2023-06-27 08:00 | External Medical Summary ---
Author Name Unknown Address Unknown Organization K09:[facility] [address] Laboratory Report Ordering Provider Test Date Status SHAY CH 08/29/2021 09:11:41 Final Observation Date Value Abnormality Reference (Units ) Status BUN 08/29/2021 09:11:41 40 Above high normal 6-20 (mg/dL) Final Creatinine 08/29/2021 09:11:41 2.1 Above high normal 0.6-1.2 (mg/dL) Final Glomerular filtration rate/1.73 sq M.predicted [Volume Rate/Area] in Serum, Plasma or Blood by Creatinine-based formula (CKD-EPI) 08/29/2021 09:11:41 31 Below low normal >=60 (mL/min) Final Performing Location [facility] [address]
--- OUTSIDE RECORDS SUMMARY | 2023-06-27 08:00 | External Medical Summary | Summary of Care ---
Author Name Unknown Organization [facility] Address [place] [address] Care Team Providers Care Case Sealer Name Role Phone Hortencia Leal PA-C Primary Care Provid er Encounter Details Date Type Department Care Team Description 08/22/2021 Orders Only Hematology/Oncology, [facility] [address] [facility] [place] [address] Nik Melo MD 200 [place] [address] Allergies Active Allergy Reactions Severity Noted [...] a day. As needed 0 Active [place]-3 Fatty Acids (FISH OIL) 1000 MG Capsule [...] of 08/22/2021) Active Problems Problem Noted Date Adenocarcinoma of [...] Office Visit [facility]enterology [facility] [place] [address] 12/14/2021 Office Visit [facility]m [facility] [address] [place] [address] Health Maintenance [...] of this encounter Implants Implanted Type Area Tail Edger Device Identifier Shelf Expiration Date Model / Serial / Lot Cath Power Port 6fr Clearvue - [id number] Implanted:Qty : 1 on 08/10/2021 by Alexander Rodriguez MD [place] [facility] Left: Subclavian CR BARD : PERIPHERAL VASCULAR 08/21/2021 [id number] / / documented as of this encounter Advance Directives Documents on File Type Date Recorded Patient Environmental Management Specialist Expl anation Advanced Directive Advanced Directive 01/03/2011 [...]
--- OUTSIDE RECORDS SUMMARY | 2023-06-27 08:00 | External Medical Summary | Summary of Care ---
Author Name Unknown Organization [place] [address] Care Team Providers Care Client Engagement Specialist Name Role Phone Hortencia Leal PA-C Primary Care Provid er Reason for Visit * Reason Onset Date Comments Outpatient Testing 08/17/2021 Encounter Details Date Type Department Care Team Description 08/17/2021 Telephone Hematology/Oncology Treatment, [place] 200 [place] [address] Nik Melo MD 200 [place] [address] Outpatient Testing Allergies Active Allergy Reactions Severity [...] times a day. As needed 0 Active [place]-3 Fatty Acids (FISH OIL) 1000 MG Capsule [...] RN - 08/29/2021 7:49 AM EST PDL1 low, 5%. Per Dr Melo, no opdivo. * Telephone Encounter - Venita Byers RN - 08/17/2021 12:[address] Melo, would like PDL1 and MSI testing added to previous biopsy [id number] collected 07/15/21. Dr Melo placed order. Message to pathology sent. documented in this encounter Plan of Treatment Upcoming Encounters Date Type Specialty Care Team Description 08/29/2021 Laboratory Laboratory [place], Lab Scenery [address] [place] [address] 08/30/2021 Hem/Onc Treatment Hematology Oncology [place], Chair 2 Hem Onc Scenery [address] [place] [address] 09/06/2021 Office Visit Gastroenterology Angela Herbert CRNP [address] [facility] [place] [address] 12/14/2021 Office Visit Urology Cm Rhodes MD [...] of this encounter Implants Implanted Type Area Pecan Grower Device Identifier Shelf Expiration Date Model / Serial / Lot Cath Power Port 6fr Clearvue - [id number] Implanted:Qty : 1 on 08/10/2021 by Alexander Rodriguez MD [place] [facility] [place] Left: Subclavian CR BARD : PERIPHERAL VASCULAR 08/21/2021 [id number] / / documented as of this encounter Advance Directives Documents on File Type Date Recorded Patient Cable Systems Installer Expl anation Advanced Directive Advanced [...] were consensually agreed upon. Care Teams Client Engagement Specialist Relationship Specialty Start Date End Date Hortencia Leal PA-C [address] [place] [address] PCP - General Physician Air Conditioning Supervisor 02/08/18 documented as of this encounter
--- OUTSIDE RECORDS SUMMARY | 2023-06-27 08:00 | External Medical Summary | Summary of Care ---
Author Name Unknown Organization [place] [address] Care Team Providers Care Critical Care Unit Manager Name Role Phone Hortencia Leal PA-C Primary Care Provid er Reason for Visit * Reason Onset Date Comments Treatment 08/26/2021 Encounter Details Date Type Department Care Team Description 08/26/2021 Telephone [facility]ematology[facility] [place] [address] [facility] [place] [address] Nik Melo MD 200 [facility] [place] [address] [phone] Treatment Allergies Active Allergy Reactions Severity Noted [...] times a day. As needed 0 Active [place]-3 Fatty Acids (FISH OIL) 1000 MG Capsule [...] begin chemotherapy. Pt can be reached at [phone]. documented in this encounter Plan of Treatment [...] of this encounter Implants Implanted Type Area Mailer Device Identifier Shelf Expiration Date Model / Serial / Lot Cath Power Port 6fr Clearvue - [id number] Implanted:Qty : 1 on 08/10/2021 by Alexander Rodriguez MD at [place] [facility] Left: Subclavian CR BARD : PERIPHERAL VASCULAR 08/21/2021 [id number] / / documented as of this encounter Advance Directives Documents on File Type Date Recorded Patient Analytics Developer Expl anation Advanced Directive Advanced Directive 01/03/2011 [...]
--- OUTSIDE RECORDS SUMMARY | 2023-06-27 08:01 | External Medical Summary | Summary of Care ---
Author Name Unknown Organization [place] [address] Care Team Providers Care Route Sales Delivery Driver Name Role Phone Hortencia Leal PA-C Primary Care Provid er Reason for Visit * Reason Onset Date Comments Precert Future 08/17/2021 FOLFOX Encounter Details Date Type Department Care Team Description 08/17/2021 Telephone [facility]ematology/Oncology Treatment, [place] [facility] [address] Nik Melo MD 200 [facility] [place] [address] [phone] Precert Future (FOLFOX) Allergies Active Allergy Reactions [...] times a day. As needed 0 Active [place]-3 Fatty Acids (FISH OIL) 1000 MG Capsule [...] When beacon plan built, listed location was [facility]. Referral entered for [facility]. Adjusted beacon plan to reflect that patient will receive treatment at . Waiting for new referral. * Telephone Encounter - Venita Byers RN - 08/17/2021 3:19 PM EDT Order received for FOLFOX. [place] plan adjusted. Waiting for precert. Patient already had port placed 08/10/21- CXR in chart. Hep B labs 08/03/21. TE sent to [facility]. Faxed office note to PCP per patient request. documented in this encounter Plan of Treatment Upcoming Encounters Date Type Specialty Care Team Description 09/06/2021 Office Visit Gastroenterology Angela Herbert CRNP [address] [place] [address] [phone] 12/14/2021 Office Visit Urology Cm Rhodes MD [address] [place] [id number] Scheduled Orders Name Type Priority Associated Diagnoses [...] of this encounter Implants Implanted Type Area Remotely Operated Vehicle Device Identifier Shelf Expiration Date Model / Serial / Lot Cath Power Port 6fr Clearvue - [id number] Implanted:Qty : 1 on 08/10/2021 by Alexander Rodriguez MD at [place] [facility] [place] Left: Subclavian CR BARD : PERIPHERAL VASCULAR 08/21/2021 [id number] / / documented as of this encounter Visit Diagnoses Diagnosis 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
--- OUTSIDE RECORDS SUMMARY | 2023-06-27 08:01 | External Medical Summary | Summary of Care ---
Author Name Unknown Organization [place] [address] Care Team Providers Care Judge Name Role Phone Hortencia Leal PA-C Primary Care Provid er Reason for Visit * Reason Onset Date Comments Appointment 08/16/2021 Encounter Details Date Type Department Care Team Description 08/16/2021 Telephone [facility] [place] [address] [facility] [place] [address] Nik Melo MD [address] [facility] [place] [place] [address] [phone] Appointment Allergies Active Allergy Reactions Severity Noted Date Comments Amlodipine 11/02/2020 dizziness Codeine Sulfate Other (Please comment) 10/26/19 11 hyperactivity Hydrochlorothiazide 11/02/2020 hypercalcemia documented as of this encounter (statuses as of 08/17/2021) Medications Medication Sig Dispensed Refills Start Date [...] times a day. As needed 0 Active [place]-3 Fatty Acids (FISH OIL) 1000 MG Capsule [...] as of this encounter (statuses as of 08/17/2021) Active Problems Problem Noted Date Kidney stones 08/16/2021 RINA (stress urinary incontinence), male 08/16/2021 Renal cyst, acquired 08/16/2021 Encounter for antineoplastic chemotherap y 08/04/2021 Malignant neoplasm of overlapping sites of stomach 07/21/2021 Prostate cancer 12/31/2013 Other ventral hernia without mention of obstruction or gangrene 05/03/2012 documented as of this encounter (statuses as of 08/17/2021) Resolved Problems Problem Noted Date Resolved Date Elevated prostate specific antigen (PSA) 011 12/31/2013 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 Patient accepted. Scheduling: please add appt. Thanks! * Telephone Encounter - Venita Byers RN - 08/17/2021 8:08 AM EDT Patient had just started his simulation yesterday and Dr Mccray came in and stopped the simulation, stated that Dr Rodriguez and Dr Melo decided that his plan for treatment needed to change. He has an additional "positive spot" so he is supposed to only get chemotherapy. Advised patient that I would send a message to Dr Melo and update him with plan. Dr Melo: please advise on patients plan of care. Thanks! * Telephone Encounter - Ajit Ferguson CMA - 08/16/2021 4:27 PM EDT Pt called and left a message in regards to the start date of his chemotherapy treatment. Pt can be reached at [phone]. documented in this encounter Plan of Treatment Upcoming Encounters Date Type Specialty Care Team Description 09/06/2021 Office Visit Gastroenterology Angela Herbert CRNP [address] [place] [address] 12/14/2021 Office Visit Urology Cm Rhodes MD [address] [place] [address] Health Maintenance Due Date Last Done Comments Pneumococcal Vaccine: 65+ Years (1 of 2 - PPSV23) 12/29/1951 DTaP,Tdap,and Td Vaccines (1 - Tdap) 1964 Zoster Vaccines (1 of 2) 12/29/1995 *DEPRESSION SCREENING,ANNUAL FOR PTS 12 AND OVER 09/29/2016 Influenza Vaccine (FLU shot) (#1) 2021 08/21/2018, 07/14/2017, 07/06/2016, Additional history exists COLONOSCOPY-EVERY 3 YRS AGES 18-100 07/15/2024 07/15/2021, 07/15/2021, 04/12/2018, Additional history exists DIABETES SCREEN EVERY 3 YRS-AGE 45 AND ABOVE 08/03/2024 08/03/2021, 01/24/2021, 11/21/2019, Additional history exists COVID-19 Vaccine Completed 02/14/2021, 01/17/2021 MENINGOCOCCAL (MENACTRA/MENVEO) Aged Out No longer eligible based on patient's age to complete this topic documented as of this encounter Implants Implanted Type Area Exchange Operator Device Identifier Shelf Expiration Date Model / Serial / Lot Cath Power Port 6fr Clearvue - [id number] Implanted:Qty : 1 on 08/10/2021 by Alexander Rodriguez MD at [place] [facility] [place] Left: Subclavian CR BARD : PERIPHERAL VASCULAR 08/21/2021 [id number] / / documented as of this encounter Advance Directives Documents on File Type Date Recorded Patient Junior Systems Engineer Expl anation Advanced Directive Advanced Directive 01/03/2011 [...]
--- OUTSIDE RECORDS SUMMARY | 2023-06-27 08:01 | External Medical Summary | Summary of Care ---
Author Name Unknown Organization [place] [address] Care Team Providers Care Press Operator Instant Print Shop Name Role Phone Hortencia Leal PA-C Primary Care Provid er Reason for Visit * Reason Onset Date Comments Precert Future 08/17/2021 FOLFOX Encounter Details Date Type Department Care Team Description 08/17/2021 Telephone Hematology/Oncology [facility] [place] [facility] [address] Nik Melo MD 200 [place] [address] [phone] Precert Future (FOLFOX) Allergies Active Allergy Reactions [...] times a day. As needed 0 Active [place]-3 Fatty Acids (FISH OIL) 1000 MG Capsule [...] of 08/17/2021) Active Problems Problem Noted Date Adenocarcinoma of [...] 3:19 PM EDT Order received for FOLFOX. [place] plan adjusted. Waiting for precert. Patient already had port placed 08/10/21- CXR in chart. Hep B labs 08/03/21. TE sent to [facility]. Faxed office note to PCP per patient request. documented in this encounter Plan of Treatment Upcoming Encounters Date Type Specialty Care Team Description 09/06/2021 Office Visit Gastroenterology Angela Herbert CRNP 132 [facility] [place] [address] 12/14/2021 Office Visit Urology Cm Rhodes MD [address] [address] [place] [address] Scheduled Orders Name Type [...] of this encounter Implants Implanted Type Area Display Coordinator Device Identifier Shelf Expiration Date Model / Serial / Lot Cath Power Port 6fr Clearvue - [id number] Implanted:Qty : 1 on 08/10/2021 [place] [facility] [place] Subclavian CR BARD : PERIPHERAL VASCULAR 08/21/2021 [id number] / / documented as of this encounter Visit Diagnoses Diagnosis 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
--- OUTSIDE RECORDS SUMMARY | 2023-06-27 08:01 | External Medical Summary | Summary of Care ---
Author Name Unknown Organization [place] [address] Care Team Providers Care Assistant Business Manager Name Role Phone Hortencia Leal PA-C Primary Care Provid er Reason for Visit * Reason Onset Date Comments Appointment 08/16/2021 Encounter Details Date Type Department Care Team Description 08/16/2021 Telephone Hematology/Oncology [facility] [place] [address] [facility] [place] [address] Nik Melo MD [address] [facility] [place] [address] [phone] Appointment Allergies Active Allergy Reactions Severity Noted [...] times a day. As needed 0 Active [place]-3 Fatty Acids (FISH OIL) 1000 MG Capsule [...] encounter Miscellaneous Notes * Telephone Encounter - Bonny Barker OSA - 08/17/2021 9:04 AM EDT Patients appt for today 08/17 has been added as requested. * Telephone Encounter - Venita [...] chemotherapy treatment. Pt can be reached at [phone]. documented in this encounter Plan of Treatment Upcoming Encounters Date Type Specialty Care Team Description 08/17/2021 Office Visit Hematology Oncology Lorie, Nik Vargas MD 200 [place], [place] [address] 09/06/2021 Office Visit Gastroenterology Angela Herbert CRNP 132 [facility] [place] [address] 12/14/2021 Office Visit Urology Cm Rhodes MD 27 [facility] [address] [place] [address] Health Maintenance Due Date Last Done [...] of this encounter Implants Implanted Type Area Entry Clerk Device Identifier Shelf Expiration Date Model / Serial / Lot Cath Power Port 6fr Clearvue - [id number] Implanted:Qty : 1 on 08/10/2021 by Alexander Rodriguez [place] [facility] [place] Subclavian CR BARD : PERIPHERAL VASCULAR 08/21/2021 [id number] / / documented as of this encounter Advance Directives Documents on File Type Date Recorded Patient Ethnic Studies Professor Expl anation Advanced Directive Advanced Directive 01/03/2011 [...]
--- OUTSIDE RECORDS SUMMARY | 2023-06-27 08:01 | External Medical Summary | Summary of Care ---
Author Name Unknown Organization [facility] Address [facility] [place] [address] Care Team Providers Care Excellence Specialist Name Role Phone Hortencia Leal PA-C Primary Care Provid er Reason for Visit * Reason Onset Date Comments Precert Future 08/04/2021 carbo/ taxol Encounter Details Date Type Department Care Team Description 08/04/2021 Telephone Hematology/Oncology Treatment, [place] 200 [facility] [place] [address] Nik Melo MD 200 [facility] [place] [address] [phone] Precert Future (carbo/ taxol) Allergies Active Allergy Reactions Severity Noted Date Comments Amlodipine 11/02/2020 dizziness Codeine Sulfate Other (Please comment) 10/26/19 11 hyperactivity Hydrochlorothiazide 11/02/2020 hypercalcemia documented as of this encounter (statuses as of 08/18/2021) Medications Medication Sig Dispensed Refills Start Date [...] times a day. As needed 0 Active [place]-3 Fatty Acids (FISH OIL) 1000 MG Capsule [...] 08/10/2021 Prochlorperazine Maleate 10 MG Oral Tablet (Compazine)Indica [...] Information Patient not taking. Reported on 08/10/2021 Acetaminophen 325 MG Oral Tablet (Tylenol) Take 325 mg by mouth every 6 hours as needed. 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 07/21/2021 Prostate cancer 12/31/2013 Other ventral hernia without mention of obstruction or gangrene 05/03/2012 documented as of this encounter (statuses as of 08/18/2021) Resolved Problems Problem Noted Date Resolved Date Elevated prostate specific antigen (PSA) 011 12/31/2013 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 Thanks! * Telephone Encounter - Venita Byers RN - 08/16/2021 9:02 AM EDT TT sent to Kylie to let her know we are ready to start when they are. Scheduling: if rad/onc calls when they are ready, please coordinate same day start - labs "CBCd, CMP"- ok to do day prior if patient prefers - 503 schedule for 3 hour appt "C1D1 carbo/taxol" (Lorie) Thanks! * Telephone Encounter - Lakeisha Cortez RN - 08/10/2021 9:54 AM EDT Simulation is 08/16 * Telephone Encounter - Venita Byers RN - 08/09/2021 2:26 PM EDT Referral entered. * Telephone Encounter - Venita Byers RN - 08/08/2021 11:58 AM EDT Patient is seeing rad/onc for initial consult 08/09/21. Will find out at that time when sim is scheduled for. * Telephone Encounter - Venita Byers RN - 08/04/2021 12:51 PM EDT Order placed for patient to receive weekly carbo/taxol during radiation therapy. [place] plan adjusted. Education visit 08/08/21. Hepatitis labs added to labs drawn 08/03/21. documented in this encounter Plan of Treatment Upcoming Encounters Date Type Specialty Care Team Description 09/06/2021 Office Visit Gastroenterology Angela Herbert CRNP 132 [place] [address] 12/14/2021 Office Visit Urology Cm Rhodes MD [address] [address] [place] [address] Health Maintenance Due Date [...] this encounter Implants Implanted Type Area Manager Servicing Device Identifier Shelf Expiration Date Model / Serial / Lot Cath Power Port 6fr Clearvue - [id number] Implanted:Qty : 1 on 08/10/2021 by Alexander Rodriguez MD at [place] [facility] [place] Left: Subclavian CR BARD : PERIPHERAL VASCULAR 08/21/2021 [id number] / / documented as of this encounter Results * HEPATITIS B CORE ANTIBODIES IGG AND IGM (08/03/2021 1:48 PM EDT) Pathologist [facility] Hepatitis B Core Antibodies IgG and IgM Negative Negative [facility] Specimen Blood - Venous blood specime n (specimen) Performing Organization Address [facility] de Phone Number LABORATORY [facility] [address] [place] [address] * HEPATITIS B SURFACE ANTIGEN (08/03/2021 1:48 PM EDT) Pathologist [facility] Hepatitis B Surface Antigen Negative Negative [facility]O [facility] [place] Specimen Blood - Venous blood specime n (specimen) Performing Organization Address [facility] de Phone Number LABORATORY [facility] [address] [place] [address] * HEPATITIS B SURFACE ANTIBODY (08/03/2021 1:48 PM EDT) Pathologist [facility] Hepatitis B Surface Antibody, Quantitative <3.5 mIU/mL LAB[facility]ORY [facility] Hepatitis B Surface Antibody, Qualitative Negative [facility] Hepatitis B Surface Antibody, Interpretation NOT immune to Hepatitis B Virus Comment: POSITIVE: >=11.5 mIU/mL INDETERMINATE: 8.5-<11.5 mIU/mL NEGATIVE: <8.5 mIU/mL [facility] Specimen Blood - Venous blood specime n (specimen) Performing Organization Address [facility] de Phone Number LABORATORY [facility] [address] [place] [address] documented in this encounter Visit Diagnoses Diagnosis Malignant neoplasm of overlapping sites of stomach (HCC)- Primary Malignant neoplasm of other specified sites of stomach Encounter for antineoplastic chemotherapy Encounter for screening for viral disease documented in this encounter Advance Directives Documents on File Type Date Recorded Patient Licensed Practical Nurse Clinic Nurse Expl anation Advanced Directive Advanced Directive 01/03/2011 [...]
--- OUTSIDE RECORDS SUMMARY | 2023-06-27 08:01 | External Medical Summary | Summary of Care ---
Author Name Unknown Organization [place] [address] Care Team Providers Care Riveter Name Role Phone Hortencia Leal PA-C Primary Care Provid er Reason for Visit * Reason Onset Date Comments Outpatient Testing 08/17/2021 Encounter Details Date Type Department Care Team Description 08/17/2021 Telephone Hematology/Oncology Treatment, [place] 200 [place] [address] Nik Melo MD 200 [facility] [address] [phone] Outpatient Testing Allergies Active Allergy Reactions Severity [...] times a day. As needed 0 Active [place]-3 Fatty Acids (FISH OIL) 1000 MG Capsule [...] and MSI testing added to previous biopsy [id number] collected 07/15/21. Dr Melo placed order. Message to pathology sent. documented in this encounter Plan of Treatment Upcoming Encounters Date Type Specialty Care Team Description 08/17/2021 Office Visit Hematology Oncology Nik Melo MD 200 [facility] [address] [phone] 09/06/2021 Office Visit Gastroenterology Angela Herbert CRNP [address] [facility] [address] 12/14/2021 Office Visit Urology Cm Rhodes MD [address] [address] [place] [address] Health Maintenance Due Date [...] of this encounter Implants Implanted Type Area Offal Roller Device Identifier Shelf Expiration Date Model / Serial / Lot Cath Power Port 6fr Clearvue - [id number] Implanted:Qty : 1 on 08/10/2021 by Alexander Rodriguez MD at [facility] Left: Subclavian CR BARD : PERIPHERAL VASCULAR 08/21/2021 [id number] / / documented as of this encounter Advance Directives Documents on File Type Date Recorded Patient Kitchen Utility Associate Expl anation Advanced Directive Advanced Directive 01/03/2011 [...]
--- OUTSIDE RECORDS SUMMARY | 2023-06-27 08:01 | External Medical Summary | Summary of Care ---
Author Name Unknown Organization [place] [address] Care Team Providers Care Patient Service Technician Pst Name Role Phone Hortencia Leal PA-C Primary Care Provid er Reason for Visit * Reason Onset Date Comments Referral 08/17/2021 Vitaline Encounter Details Date Type Department Care Team Description 08/17/2021 Telephone Hematology/Oncology Treatment, [place] 200 [place] [address] Nik Melo MD 200 [facility] [place] [address] [phone] Referral (Vitaline) Allergies Active Allergy Reactions Severity Noted Date [...] times a day. As needed 0 Active [place]-3 Fatty Acids (FISH OIL) 1000 MG Capsule [...] Encounter - Venita Byers RN - 08/17/2021 3:34 PM EDT Patient Name: Heath Austin Cancer Diagnosis: c16.8, c15.9/ c77.2 Attending Oncologist: Dr. Zaragoza Lorie Medication Requested: 5-FU Route of Infusion: Mediport Length of Infusion: 46 hours Start Date: depending on precert Home Care needed: No. documented in this encounter Plan of Treatment Upcoming Encounters Date Type Specialty Care Team Description 09/06/2021 Office Visit Gastroenterology Angela Herbert CRNP 132 [place] [address] 12/14/2021 [facility]m [facility] [place] [address] Health Maintenance Due [...] of this encounter Implants Implanted Type Area Shipper Receiver Device Identifier Shelf Expiration Date Model / Serial / Lot Cath Power Port 6fr Clearvue - [id number] Implanted:Qty : 1 on 08/10/2021 by [place] Rodriguez [place] [facility] [place]: Subclavian CR BARD : PERIPHERAL VASCULAR 08/21/2021 [id number] / / documented as of this encounter Advance Directives Documents on File Type Date Recorded Patient Hospital Secretary Expl anation Advanced Directive Advanced Directive 01/03/2011 [...]
--- OUTSIDE RECORDS SUMMARY | 2023-06-27 08:01 | External Medical Summary | Summary of Care ---
Author Name Unknown Organization [place] [address] Care Team Providers Care Management Supervisor Name Role Phone Hortencia Leal PA-C Primary Care Provid er Reason for Visit * Reason Onset Date Comments Appointment 08/16/2021 Encounter Details Date Type Department Care Team Description 08/16/2021 Telephone [facility]ematology[facility]cology [facility] [place] 200 [facility] [place] [address] Nik Melo MD 200 [facility] [place] [address] [phone] Appointment Allergies Active Allergy Reactions Severity Noted [...] times a day. As needed 0 Active [place]-3 Fatty Acids (FISH OIL) 1000 MG Capsule [...] chemotherapy treatment. Pt can be reached at [phone]. documented in this encounter Plan of Treatment Upcoming Encounters Date Type Specialty Care Team Description 09/06/2021 Office Visit Gastroenterology Angela Herbert CRNP 132 [place] [address] 12/14/2021 Office Visit Urology Cm Rhodes MD [address] [address] [place] [address] Health Maintenance Due Date [...] of this encounter Implants Implanted Type Area Back Roll Lathe Operator Device Identifier Shelf Expiration Date Model / Serial / Lot Cath Power Port 6fr Clearvue - [id number] Implanted:Qty : 1 on 08/10/2021 by Alexander Rodriguez MD at [place] [facility] [place] Left: Subclavian CR BARD : PERIPHERAL VASCULAR 08/21/2021 [id number] / / documented as of this encounter Advance Directives Documents on File Type Date Recorded Patient Marketing Communications Manager Expl anation Advanced Directive Advanced Directive 01/03/2011 [...]
--- OUTSIDE RECORDS SUMMARY | 2023-06-27 08:01 | External Medical Summary | Summary of Care ---
Author Name Unknown Organization ising Address [facility] [place] [address] Care Team Providers Care Accounts Payable Manager Name Role Phone Hortencia Leal PA-C Primary Care Provid er Encounter Details Date Type Department Care Team Description 08/17/2021 Orders Only Hematology/Oncology, [facility] 400 [facility] [place] [address] Nik Melo MD 200 [place] [address] 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 As needed 0 Active [place]-3 Fatty Acids (FISH OIL) 1000 MG Capsule [...] Pathways Update - Nik Melo MD - 08/17/2021 11:31 AM EDT START ON PATHWAY REGIMEN - Gastroesophageal GEOS3: mFOLFOX6 q14 Days Until Progression or Unacceptable Toxicity A cycle is every 14 days: Oxaliplatin (Eloxatin) 85 mg/m2 IV once on day 1 Leucovorin 400 mg/m2 IV once on day 1 Fluorouracil 400 mg/m2 IV once on day 1 Fluorouracil 1,200 mg/m2/day CIV on days 1 and 2. Total dose = 2,400 mg/m2/cycle. Always confirm dose/schedule in your pharmacy ordering system Citations: -Marizol B, Im SA, Rashid SW, et al. Modified FOLFOX-6 chemotherapy in advanced gastric cancer: Results of phase II study and comprehensive analysis of polymorphisms as a predictive and prognostic marker. BMC Cancer 2008;8:148. URL: http://www.ncbi.nlm.nih.gov/pubmed/47658798 Patient Characteristics: Distant Metastases (cM1/pM1) / Locally Recurrent Disease, Adenocarcinoma - Esophageal, GE Junction,and Gastric, First Line, HER2 Negative/Unknown, PD?L1 Expression CPS < 5/Negative/Unknown, CANDI/pMMR or MSI Unknown Histology: Adenocarcinoma Disease Classification: Esophageal Therapeutic Status: Distant Metastases (No Additional Staging) Line of Therapy: First Line HER2 Status: Negative PD-L1 Expression Status: Awaiting Test Results Microsatellite/Mismatch Repair Status: Unknown * Oncology Pathways Notification - Nik Melo MD - 08/17/2021 11:31 AM EDT A new patient decision has been made in [facility]. Details of this patient have been provided below: Patient Information: Name: Heath Austin : 1945 Insurance Provider: MEDICARE A AND B Insurance Provider Name: Nik Melo Disease: Gastroesophageal Pathway Followed: Gastroesophageal, Distant Metastases (cM1/pM1) / Locally Recurrent Disease, Adenocarcinoma - Esophageal, GE Junction, and Gastric, First Line, HER2 Negative/Unknown, PD?L1 Expression CPS < 5/Negative/Unknown, CANDI/pMMR or MSI Unknown Patient Characteristics: Distant Metastases (cM1/pM1) / Locally Recurrent Disease, Adenocarcinoma - Esophageal, GE Junction,and Gastric, First Line, HER2 Negative/Unknown, PD?L1 Expression CPS < 5/Negative/Unknown, CANDI/pMMR or MSI Unknown Histology: Adenocarcinoma Disease Classification: Esophageal Therapeutic Status: Distant Metastases (No Additional Staging) Line of Therapy: First Line HER2 Status: Negative PD-L1 Expression Status: Awaiting Test Results Microsatellite/Mismatch Repair Status: Unknown Treatment Details: START ON PATHWAY REGIMEN GEOS3: mFOLFOX6 q14 Days Until Progression or Unacceptable Toxicity A cycle is every 14 days: Oxaliplatin (Eloxatin) 85 mg/m2 IV once on day 1 Leucovorin 400 mg/m2 IV once on day 1 Fluorouracil 400 mg/m2 IV once on day 1 Fluorouracil 1,200 mg/m2/day CIV on days 1 and 2. Total dose = 2,400 mg/m2/cycle. Always confirm dose/schedule in your pharmacy ordering system Citations: -Marizol B, Randi SA, Rashid SW, et al. Modified FOLFOX-6 chemotherapy in advanced gastric cancer: Results of phase II study and comprehensive analysis of polymorphisms as a predictive and prognostic marker. BMC Cancer 2008;8:148. URL: http://www.ncbi.nlm.nih.gov/pubmed/26022110 Change Reason: Other Reason Prior Treatment: ASCS973: Carboplatin + Paclitaxel (2/50) Weekly (x 5-6 Weeks) with Concurrent RT Treatment Response: Unable to Evaluate documented in this encounter Plan of Treatment Upcoming Encounters Date Type Specialty Care Team Description 08/17/2021 Office Visit Hematology Oncology Nik Melo MD 200 [place] [address] [phone] 09/06/2021 Office Visit [facility]ology 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
--- OUTSIDE RECORDS SUMMARY | 2023-06-27 08:01 | External Medical Summary | Summary of Care ---
Author Name Unknown Organization [place] [address] Care Team Providers Care Salt Miner Name Role Phone Hortencia Leal PA-C Primary Care Provid er Encounter Details Date Type Department Care Team Description 08/19/2021 Telephone General Surgery, [place] [address], [place] [id number] Alexander Rodriguez MD [address] [place] [address] Allergies Active Allergy Reactions Severity Noted Date Comments Amlodipine 11/02/2020 dizziness Codeine Sulfate Other (Please comment) 10/26/19 11 hyperactivity Hydrochlorothiazide 11/02/2020 hypercalcemia documented as of this encounter (statuses as of 08/19/2021) Medications Medication Sig Dispensed Refills Start Date [...] times a day. 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 08/17/2021 Kidney stones 08/16/2021 RINA (stress urinary incontinence), male 08/16/2021 Renal cyst, acquired 08/16/2021 Encounter for antineoplastic chemotherap y 08/04/2021 Malignant neoplasm of overlapping sites of stomach 07/21/2021 Prostate cancer 12/31/2013 Other ventral hernia without mention of obstruction or gangrene 05/03/2012 documented as of this encounter (statuses as of 08/19/2021) Resolved Problems Problem Noted Date Resolved Date Elevated prostate specific antigen (PSA) 011 12/31/2013 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 Mccray and Lorie- documented in this encounter Plan of Treatment Upcoming Encounters Date Type Specialty Care Team Description 09/06/2021 Office Visit Gastroenterology Angela Herbert CRNP 132 [facility] [place] [address] 12/14/2021 Office Visit Urology Cm Rhodes MD 27 [facility] [address] [place] [address] Health [...] of this encounter Implants Implanted Type Area Clay Maker Device Identifier Shelf Expiration Date Model / Serial / Lot Cath Power Port 6fr Clearvue - [id number] Implanted:Qty : 1 on 08/10/2021 by Alexander Rodriguez MD at [place] [facility] [place] Left: Subclavian CR BARD : PERIPHERAL VASCULAR 08/21/2021 [id number] / / documented as of this encounter Advance Directives Documents on File Type Date Recorded Patient Weight Calculator Expl anation Advanced Directive Advanced Directive 01/03/2011 [...]
--- OUTSIDE RECORDS SUMMARY | 2023-06-27 08:01 | External Medical Summary | Summary of Care ---
Author Name Unknown Organization [place] [address] Care Team Providers Care Shoe Sprayer Name Role Phone Hortencia Leal PA-C Primary Care Provid er Reason for Visit * Reason Onset Date Comments Call Back 08/19/2021 returning phone call Encounter Details Date Type Department Care Team Description 08/19/2021 Telephone General Surgery, [place] [address] [place] [address] Services, Formerly [facility] [address] [place] [address] Call Back (returning phone call) Allergies Active Allergy Reactions Severity Noted Date [...] times a day. As needed 0 Active [place]-3 Fatty Acids (FISH OIL) 1000 MG Capsule [...] encounter Miscellaneous Notes * Telephone Encounter - Paulette Garcia OSA - 08/19/2021 2:[address] Rodriguez - pt was returning a phone call to you - he is asking if you can call him on his homephone. - [phone] documented in this encounter Plan of Treatment Upcoming Encounters Date Type Specialty Care Team Description 09/06/2021 Office Visit Gastroenterology Angela Herbert CRNP [address] [facility] [place] [address] 12/14/2021 Office Visit Urology Cm Rhodes MD 27 [facility] [address] [place] [address] Health Maintenance [...] of this encounter Implants Implanted Type Area Etcher Hand Device Identifier Shelf Expiration Date Model / Serial / Lot Cath Power Port 6fr Clearvue - [id number] Implanted:Qty : 1 on 08/10/2021 by Alexander Rodriguez MD at [facility] Left: Subclavian CR BARD : PERIPHERAL VASCULAR 08/21/2021 [id number] / / documented as of this encounter Advance Directives Documents on File Type Date Recorded Patient Vice President Regulatory Expl anation Advanced Directive Advanced Directive 01/03/2011 [...]
--- OUTSIDE RECORDS SUMMARY | 2023-06-27 08:01 | External Medical Summary | Summary of Care ---
Author Name Unknown Organization [facility] Address [place] [address] Care Team Providers Care Armored Cable Machine Operator Name Role Phone Hortencia Leal PA-C Primary Care Provid er Encounter Details Date Type Department Care Team Description 08/17/2021 Education Visit Hematology/Oncology Treatment, [place] [address] [place] [address] Venita Byers, RN Malignant neoplasm of overlapping sites of stomach (HCC)* Allergies Active Allergy Reactions Severity Noted [...] times a day. As needed 0 Active [place]-3 Fatty Acids (FISH OIL) 1000 MG Capsule [...] Office Visit Urology Cm Rhodes MD 27 [facility] [address] [place] [address] Health Maintenance [...] of this encounter Implants Implanted Type Area Teacher Aide Clerical Device Identifier Shelf Expiration Date Model / Serial / Lot Cath Power Port 6fr Clearvue - [id number] Implanted:Qty : 1 on 08/10/2021 by Alexander Rodriguez MD at [place] [facility] [place] Left: Subclavian CR BARD : PERIPHERAL VASCULAR 08/21/2021 [id number] / / documented as of this encounter Visit Diagnoses Diagnosis Malignant neoplasm of overlapping sites of stomach (HCC)- Primary Malignant neoplasm of other specified sites of stomach documented in this encounter Advance Directives Documents on File Type Date Recorded Patient Claim Manager Expl anation Advanced Directive Advanced Directive [...]
--- OUTSIDE RECORDS SUMMARY | 2023-06-27 08:01 | External Medical Summary | Summary of Care ---
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 As needed 0 Active [place]-3 Fatty Acids (FISH OIL) 1000 MG Capsule [...] Reading Time Taken Comments Blood Pressure 148/70 08/17/2021 2:20 PM EDT Pulse 82 08/17/2021 2:20 PM EDT Temperature 35.8 C (96.4 F) 08/17/2021 2:20 PM ED T Respiratory Rate 18 08/17/2021 2:20 PM EDT Oxygen Saturation 98% 08/17/2021 2:20 PM EDT Inhaled Oxygen Concentration - - Weight 83.5 kg (184 lb 1.6 oz) 08/17/2021 2:20 P M EDT Height - - Body Mass Index 31.6 08/10/2021 8:15 AM EDT documented in this encounter Progress Notes * Nik Melo MD - 08/17/2021 2:16 PM EDT Outpatient Consult Note Data Source: Patient, Epic record. Data Source: Patient, Epic record. 08/17/2021 2:16 PM Heath De La Rosa [place] [id number] 75 year old Patient Encounter: HEMATOLOGY/ONCOLOGY [facility] Cancer Diagnosis: Metastatic esophageal cancer Current Treatment: For chemotherapy Previous Treatment: None Oncologic History : 75-year-old [...] significant for prostate cancer was diagnosed in 2012and underwent a robotic assisted radical prostatectomy on [...] radical prostatectomy: Adenocarcinoma, moderately poorly differentiated Overall [place] score 3+4=7 High grade prostatic intraepithelial neoplasia [...] 0.9 cm HISTOLOGIC TYPE: Adenocarcinoma HISTOLOGIC GRADE ([place]): Primary pattern is: Grade 3: single acini [...] 2.1 cm HISTOLOGIC TYPE: Adenocarcinoma HISTOLOGIC GRADE ([place]): Primary pattern is: Grade 3: single acini [...] and father was diagnosed of colon cancer. Interval History: On 08/10/2021 he underwent laparoscopy and biopsy of the peritoneal nodule and pathology is consistent with metastatic gastric adenocarcinoma. Peritoneal nodules, biopsies: Metastatic gastric adenocarcinoma. A. Peritoneal washing: Category: Benign. Final Interpretation: Benign mesothelial cells. Overall clinically is stable and denies any new symptoms. He denies any headache, dizziness, chest pain, palpitation abdominal pain or distention, nausea, vomiting, bleeding, his complaining of generalized weakness REVIEW OF SYSTEMS: General: No Fever, chills, [...] mouth 2 times a day. As needed [place]-3 Fatty Acids (FISH OIL) 1000 MG Capsule [...] Used Substance Use Topics Alcohol use: No Drug [...] the adenocarcinoma her 2 Kristen is positive. I have requested pathology for further testing including PDL1 and MSI/MMR. If PDL1 is positive thenhe will be treated with nivolumab plus FOLFOX. If negative then he will only receive FOLFOX chemotherapy. Discussed patient in detail about diagnosis, prognosis, benefit, risk, side effect toxicity of the treatment. After detailed discussion he agreed to proceed with treatment and signed the consent form. PLAN: As above. He will return to clinic for follow-up 2 weeks after receiving 1st chemotherapy. The patient voiced understanding of all of [...] Nursing Notes * Ajit Ferguson CMA - 08/17/2021 2:23 PM EDT Patient identifed by name and [...] it for you? ALREADY ACTIVE Filed Vitals: 08/17/21 1420 BP: 148/70 Pulse: 82 Resp: 18 Temp: 35.8 C (96.4 F) TempSrc: Infrared SpO2: 98% Weight: 83.5 kg (184 lb 1.6 oz) Pt reported already receiving flu shot at [facility]. documented in this encounter Plan of Treatment Upcoming Encounters Date Type Specialty Care Team Description 09/06/2021 Office Visit Gastroenterology Angela Herbert CRNP 132 [facility] [place] [address] 12/14/2021 Office Visit Urology Cm Rhodes MD 27 [facility] [address] [place] [address] Health [...] of this encounter Implants Implanted Type Area Experimental Technician Device Identifier Shelf Expiration Date Model / Serial / Lot Cath Power Port 6fr Clearvue - [id number] Implanted:Qty : 1 on 08/10/2021 [place] [facility] [place] Subclavian CR BARD : PERIPHERAL VASCULAR 08/21/2021 [id number] / / documented as of this encounter Visit Diagnoses Diagnosis 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
--- OUTSIDE RECORDS SUMMARY | 2023-06-27 08:02 | External Medical Summary | Summary of Care ---
Author Name Unknown Organization [place] [address] Care Team Providers Care Grinder Hardboard Name Role Phone Hortencia Leal PA-C Primary Care Provid er Reason for Visit * Reason Onset Date Comments Appointment 08/16/2021 Encounter Details Date Type Department Care Team Description 08/16/2021 Telephone Hematology/Oncology [facility] [place] [address] [facility] [place] [address] Nik Melo MD 200 [facility] [place] [address] [phone] Appointment Allergies Active Allergy Reactions Severity Noted Date Comments Amlodipine 11/02/2020 dizziness Codeine Sulfate Other (Please comment) 10/26/19 11 hyperactivity Hydrochlorothiazide 11/02/2020 hypercalcemia documented as of this encounter (statuses as of 08/16/2021) Medications Medication Sig Dispensed Refills Start Date [...] times a day. As needed 0 Active [place]-3 Fatty Acids (FISH OIL) 1000 MG Capsule [...] as of this encounter (statuses as of 08/16/2021) Active Problems Problem Noted Date Kidney stones 08/16/2021 RINA (stress urinary incontinence), male 08/16/2021 Renal cyst, acquired 08/16/2021 Encounter for antineoplastic chemotherap y 08/04/2021 Malignant neoplasm of overlapping sites of stomach 07/21/2021 Prostate cancer 12/31/2013 Other ventral hernia without mention of obstruction or gangrene 05/03/2012 documented as of this encounter (statuses as of 08/16/2021) Resolved Problems Problem Noted Date Resolved Date Elevated prostate specific antigen (PSA) 011 12/31/2013 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 Pt can be reached at [phone]. documented in this encounter Plan of Treatment Upcoming Encounters Date Type Specialty Care Team Description 09/06/2021 Office [facility] [place] [address] 12/14/2021 Office Visit Urology Cm Rhodes MD [address] [place] [address] [place] [address] Health Maintenance Due Date [...] of this encounter Implants Implanted Type Area Laser Technician Device Identifier Shelf Expiration Date Model / Serial / Lot Cath Power Port 6fr Clearvue - [id number] Implanted:Qty : 1 on 08/10/2021 by Alexander Rodriguez MD at [place] [facility] [place] Left: Subclavian CR BARD : PERIPHERAL VASCULAR 08/21/2021 [id number] / / documented as of this encounter Advance Directives Documents on File Type Date Recorded Patient Brusher Tender Expl anation Advanced Directive Advanced Directive [...]
--- OUTSIDE RECORDS SUMMARY | 2023-06-27 08:02 | External Medical Summary | Summary of Care ---
Author Name Unknown Organization [facility] Address [facility] [place] [address] Care Team Providers Care Physician General Internal Medicine Name Role Phone Hortencia Leal PA-C Primary Care Provid er Reason for Visit * Reason Onset Date Comments Precert Future 08/04/2021 carbo/ taxol Encounter Details Date Type Department Care Team Description 08/04/2021 Telephone Hematology/Oncology Treatment, [place] [address] [place] [address] Nik Melo MD 200 [place] [address] [phone] Precert Future (carbo/ taxol) Allergies Active Allergy Reactions Severity Noted Date Comments Amlodipine 11/02/2020 dizziness Codeine Sulfate Other (Please comment) 10/26/19 11 hyperactivity Hydrochlorothiazide 11/02/2020 hypercalcemia documented as of this encounter (statuses as of 08/10/2021) Medications Medication Sig Dispensed Refills Start Date End Date Status LISINOPRIL 20 MG PO TABS Take by mouth 2 times a day. 0 Suspended METFORMIN ER 500 MG PO TB24 Take 500 mg by mouth 2 times a day. 0 Suspended VITAMIN B-12 1000 MCG PO TABS Take 500 mcg by mouth. 0 Suspended ATORVASTATIN CALCIUM 20 MG PO TABS Take 40 mg by mouth. 0 Suspended Cholecalciferol (VITAMIN D-3) 1000 units Capsule Take 1,000 Units by mouth daily. 0 Suspended Aspirin 81 MG Tablet Take 81 mg by mouth daily. 0 Suspended meclizine (ANTIVERT) 12.5 MG Tablet Take 12.5 mg by mouth 2 times a day. As needed 0 Suspended [place]-3 Fatty Acids (FISH OIL) 1000 MG Capsule Take 1,000 mg by mouth daily. 2 capsules by mouth twice daily 0 Suspended Alogliptin Benzoate 12.5 MG TABS Take 12.5 mg by mouth daily. 0 Suspended Acetaminophen 325 MG Oral Tablet (Tylenol) Take 325 mg by mouth every 6 hours as needed. 0 Suspended Ferrous Sulfate 325 (65 Fe) MG Oral Tablet (Feosol) TAKE ONE TABLET BY MOUTH EVERY 48 HOURS SAME IRON 0 04/01/2021 Suspended Vitamin C 500 MG Oral Capsule Take by mouth. 0 Suspende d Dexamethasone 4 MG Oral Tablet (Decadron)Indicati ons:Malignant neoplasm of overlapping sites of stomach (HCC) 12 mg (3 tab) 12 and 6 hours before chemotherapy 40 Tab 0 08/03/2021 Suspended Additional Information Patient not taking. Reported on 08/10/2021 Prochlorperazine Maleate 10 MG Oral Tablet (Compazine)Indicat ions:Malignant neoplasm of overlapping sites of stomach (HCC) Take 1 Tab by mouth every 6 hours as needed for Nausea. 30 Tab 0 08/03/2021 Suspended Additional Information Patient not taking. Reported on 08/10/2021 Ondansetron HCl 8 MG Oral TabletIndications: Malignant neoplasm of overlapping sites of stomach (HCC) Take 1 Tab by mouth every 8 hours as needed for Nausea. 30 Tab 0 08/03/2021 Suspended Additional Information Patient not taking. 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 [place] plan adjusted. Education visit 08/08/21. Hepatitis labs added to labs drawn 08/03/21. documented in this encounter Plan of Treatment Upcoming Encounters Date Type Specialty Care Team Description 08/16/2021 Office Visit Urology Cm Rhodes MD [address] [place] [address] [place] [address] 09/06/2021 Office Visit Gastroenterology Angela Herbert, [place] [address] [place] [address] Scheduled Orders Name Type Priority Associated Diagnoses Orde r Schedule CBC WITH WBC DIFFERENTIAL Lab STAT Malignant neoplasm of overlapping sites of stomach (HCC) Every Week for 10 Occurrences starting 08/04/2021 until 08/04/2022 COMPREHENSIVE METABOLIC PANEL Lab STAT Malignant neoplasm of overlapping sites of stomach (HCC) Every Week for 10 Occurrences starting 08/04/2021 until 08/04/2022 Health Maintenance Due Date Last Done Comments [...] Not on filedocumented as of this encounter Results * HEPATITIS B CORE ANTIBODIES IGG AND IGM (08/03/2021 1:48 PM EDT) Hepatitis B Core Antibodies IgG and IgM Negative Negative [facility] Specimen Blood - Venous blood specime n (specimen) [facility] [address] [facility] [place] [address] * HEPATITIS B SURFACE ANTIGEN (08/03/2021 1:48 PM EDT) Hepatitis B Surface Antigen Negative Negative [facility] Specimen Blood - Venous blood specime n (specimen) Performing Organization Address City/[facility] Co de Phone Number [facility] [address] [place] [address] * HEPATITIS B SURFACE ANTIBODY (08/03/2021 1:48 PM EDT) Hepatitis B Surface Antibody, Quantitative <3.5 mIU/mL [facility] Hepatitis B Surface Antibody, Qualitative Negative [facility] Hepatitis B Surface Antibody, Interpretation NOT immune to Hepatitis B Virus Comment: POSITIVE: >=11.5 mIU/mL INDETERMINATE: 8.5-<11.5 mIU/mL NEGATIVE: <8.5 mIU/mL [facility] Specimen Blood - Venous blood specime n (specimen) Performing Organization Address [facility] Co de Phone Number [facility] [address] [place] [address] documented in this encounter Visit Diagnoses Diagnosis Malignant neoplasm of overlapping sites of stomach (HCC)- Primary Malignant neoplasm of other specified sites of stomach Encounter for antineoplastic chemotherapy Encounter for screening for viral disease documented in this encounter Advance Directives Documents on File Type Date Recorded Patient Dietitian Teaching Expl anation Advanced Directive Advanced Directive 01/03/2011 [...] 08/10/2021 8:17 AM Advanced Directive Advanced Directive Latest Code Status on File Code Status Date Activated Date Inactivated Comments Full Code 08/10/2021 9:14 AM Discussion of Advance Directives occurred with: Not Discussed Full Code 10/30/2011 12:44 PM 10/31/2011 3:48 PM This order reflects the patients wishes and were consensually agreed upon. Full Code 01/05/2011 11:28 AM 01/05/2011 11:38 PM Thi s order reflects the patients wishes and were consensually agreed upon.
--- OUTSIDE RECORDS SUMMARY | 2023-06-27 08:02 | External Medical Summary ---
Author Name Unknown Address Unknown Organization K01:[facility] - [address] [place] [address] Laboratory Report Ordering Provider Test Date Status SHAY CH 08/17/2021 11:27:53 Final Observation Date Value Abnormality Reference (Units ) Status COMMENT 08/17/2021 11:27:53 Please contact [facility] secretaries to request this test. This is not a Non-Formulary request. Final COMMENT 08/17/2021 11:27:53 Final Performing Location [facility] - [address] [place] [address]
--- OUTSIDE RECORDS SUMMARY | 2023-06-27 08:02 | External Medical Summary ---
Author Name Unknown Address Unknown Organization : Laboratory Report Ordering Provider Test Date Status YENNI TUCKER 08/10/2021 09:33:39 Final Observation Date Value Abnormality Reference (Units ) Status Glucose Point of Care 08/10/2021 09:33:39 153 Above high normal 70-120 (mg/dL) Final Performing Location
--- OUTSIDE RECORDS SUMMARY | 2023-06-27 08:02 | External Medical Summary | Summary of Care ---
Author Name Unknown Organization [place] [address] Care Team Providers Care Director Patient Accounting Name Role Phone Hortencia Leal PA-C Primary Care Provid er Reason for Visit * Reason Onset Date Comments Test Results 08/09/2021 Encounter Details Date Type Department Care Team Description 08/09/2021 Telephone Hematology/Oncology Treatment, [place] [address] [place] [address] Nik Melo MD [address] [place] [address] [phone] Test Results Allergies Active Allergy Reactions Severity Noted Date Comments Amlodipine 11/02/2020 dizziness Codeine Sulfate Other (Please comment) 10/26/19 11 hyperactivity Hydrochlorothiazide 11/02/2020 hypercalcemia documented as of this encounter (statuses as of 08/09/2021) Medications Medication Sig Dispensed Refills Start Date [...] times a day. As needed 0 Active [place]-3 Fatty Acids (FISH OIL) 1000 MG Capsule Take 1,000 mg by mouth daily. 2 capsules by mouth twice daily 0 Active Alogliptin Benzoate 12.5 MG TABS Take 12.5 mg by mouth daily. 0 Active Acetaminophen 325 MG Oral Tablet (Tylenol) Take 325 mg by mouth every 6 hours as needed. 0 Active Ferrous Sulfate 325 (65 Fe) [...] 08/03/2021 Active Ondansetron HCl 8 MG Oral TabletIndications:Ma lignant neoplasm of overlapping sites of stomach (HCC) Take 1 Tab by mouth every 8 hours as needed for Nausea. 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 Melo: "Ferritin level was normal and overall there is some improvement in hemoglobin level. For now will proceed with treatment as planned and follow his hemoglobin level on a weekly basis" Attempted to call patient, no answer. Left a message stating I would send MYG or he can call officeback, provided number. * Telephone Encounter - Venita Byers RN - 08/09/2021 8:39 AM EDT Patient presented 08/08/21 for chemo education. He had received 200mg venofer x1 ordered by Dr Tracey. Patient concerned that he is still very anemic and will be starting chemotherapy soon- would like to know if he should receive further iron infusions. Had patient repeat CBCd, ferritin, iron screen prior to leaving. Dr Melo: please review and place orders for further iron infusions if indicated. Thanks! documented in this encounter Plan of Treatment Upcoming Encounters Date Type Specialty Care Team Description 08/10/2021 Hospital Encounter Surgery Alexander Rodriguez MD [address] [place] [address] [phone] 08/10/2021 Surgery Surgery Alexander Rodriguez MD [address], [place] [id number] LAPAROSCOPY WITH BIOPSY 08/16/2021 Office Visit Urology Cm Rohdes MD [address] [address] [phone] 09/06/2021 Office Visit [facility]ology [facility] [place] [address] [phone] Health Maintenance Due Date Last Done Comments [...] Not on filedocumented as of this encounter Advance Directives Documents on File Type Date Recorded Patient Supervisor Drapery Hanging Expl anation Advanced Directive Advanced Directive 01/03/2011 [...]
--- OUTSIDE RECORDS SUMMARY | 2023-06-27 08:02 | External Medical Summary | Summary of Care ---
Author Name Unknown Organization [facility] Address [facility] [place] [address] Care Team Providers Care Commercial Solar Sales Consultant Name Role Phone Hortencia Leal PA-C Primary Care Provid er Reason for Visit * Reason Onset Date Comments Precert Future 08/04/2021 carbo/ taxol Encounter Details Date Type Department Care Team Description 08/04/2021 Telephone Hematology/Oncology Treatment, [place] [address] [place] [address] Nik Melo MD 200 [place] [address] [phone] Precert Future (carbo/ taxol) Allergies Active Allergy [...] times a day. As needed 0 Active [place]-3 Fatty Acids (FISH OIL) 1000 MG Capsule [...] to receive weekly carbo/taxol during radiation therapy. [place] plan adjusted. Education visit 08/08/21. Hepatitis labs added to labs drawn 08/03/21. documented in this encounter Plan of Treatment Upcoming Encounters Date Type Specialty Care Team Description 09/06/2021 Office Visit Gastroenterology Angela Herbert CRNP [address] [place] [address] 12/14/2021 Office Visit Urology Cm Rhodes MD [address] [facility] [address] [place] [address] Scheduled Orders [...] of this encounter Implants Implanted Type Area American Sign Language Interpreter Device Identifier Shelf Expiration Date Model / Serial / Lot Cath Power Port 6fr Clearvue - [id number] Implanted:Qty : 1 on 08/10/2021 by Alexander Rodriguez MD [place] [facility] [place] Subclavian CR BARD : PERIPHERAL VASCULAR 08/21/2021 [id number] / / documented as of this encounter Results * HEPATITIS B CORE ANTIBODIES IGG AND IGM (08/03/2021 1:48 PM EDT) Hepatitis B Core Antibodies IgG and IgM Negative Negative [facility] Specimen Blood - Venous blood specime n (specimen) Performing Organization Address [facility] de Phone Number LABORATORY [facility] [address] [place] [address] * HEPATITIS B SURFACE ANTIGEN (08/03/2021 1:48 PM EDT) Hepatitis B Surface Antigen Negative Negative [facility]ATO [place] Specimen Blood - Venous blood specime n (specimen) Performing Organization Address [facility] de Phone Number LABORATORY [facility] [address] [place] [address] * HEPATITIS B SURFACE ANTIBODY (08/03/2021 1:48 PM EDT) Hepatitis B Surface Antibody, Quantitative <3.5 mIU/mL LAB[facility] Hepatitis B Surface Antibody, Qualitative Negative [facility] Hepatitis B Surface Antibody, Interpretation NOT immune to Hepatitis B Virus Comment: POSITIVE: >=11.5 mIU/mL INDETERMINATE: 8.5-<11.5 mIU/mL NEGATIVE: <8.5 mIU/mL LAB[facility] Specimen Blood - Venous blood specime n (specimen) Performing Organization Address [facility] de Phone Number LABORATORY [facility] [address] [place] [address] documented in this encounter Visit Diagnoses Diagnosis Malignant neoplasm of overlapping sites of stomach (HCC)- Primary Malignant neoplasm of other specified sites of stomach Encounter for antineoplastic chemotherapy Encounter for screening for viral disease documented in this encounter Advance Directives Documents on File Type Date Recorded Patient Director Medical Economics Expl anation Advanced Directive Advanced Directive 01/03/2011 [...]
--- OUTSIDE RECORDS SUMMARY | 2023-06-27 08:02 | External Medical Summary | Summary of Care ---
Author Name Unknown Organization [place] [address] Care Team Providers Care Well Treatment Offsider Name Role Phone Hortencia Leal PA-C Primary Care Provid er Encounter Details Date Type Department Care Team Description 08/09/2021 Scan Encounter Hematology/Oncology [facility] 200 [place] [address] Nik Melo MD 200 [place] [address] [phone] <No scans attached> Allergies Active Allergy Reactions Severity Noted Date Comments Amlodipine 11/02/2020 dizziness Codeine Sulfate Other (Please comment) 10/26/19 11 hyperactivity Hydrochlorothiazide 11/02/2020 hypercalcemia documented as of this encounter (statuses as of 08/11/2021) Medications Medication Sig Dispensed Refills Start Date [...] times a day. As needed 0 Active [place]-3 Fatty Acids (FISH OIL) 1000 MG Capsule [...] 08/10/2021 Prochlorperazine Maleate 10 MG Oral Tablet (Compazine)Indicati [...] Patient not taking. Reported on 08/10/2021 Acetaminophen 500 MG Oral Tablet (Tylenol) Take 2 Tabs by mouth every 6 hours for 3 days. 24 Tab 0 08/10/2021 08/13/2021 Active traMADol HCl 50 MG Oral Tablet (Ultram) Take 1 Tab by mouth every 6 hours as needed for Pain, Severe. 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 documented as of this encounter (statuses as of 08/11/2021) Immunizations Name Administration Dates Next Due COVID-19 [...] [address] [place] [address] [place] [address] 09/06/2021 Office Visit Gastroenterology Angela Herbert CRNP [address] [place] [address] Health Maintenance Due Date Last Done [...] this encounter Implants Implanted Type Area Rn Obgyn Device Identifier Shelf Expiration Date Model / Serial / Lot Cath Power Port 6fr Clearvue - [id number] Implanted:Qty : 1 on 08/10/2021 by Alexander Rodriguez MD at [place] [facility] [place] Left: Subclavian CR BARD : PERIPHERAL VASCULAR 08/21/2021 [id number] / / documented as of this encounter Advance Directives Documents on File Type Date Recorded Patient Slinger Sequins Expl anation Advanced Directive Advanced Directive 01/03/2011 [...]
--- OUTSIDE RECORDS SUMMARY | 2023-06-27 08:02 | External Medical Summary | Summary of Care ---
Author Name Unknown Organization [place] [address] Care Team Providers Care Counter Caser Name Role Phone Hortencia Leal PA-C Primary Care Provid er Reason for Visit * Reason Onset Date Comments Appointment 08/16/2021 Encounter Details Date Type Department Care Team Description 08/16/2021 Telephone Hematology[place]cology [facility] [place] [place] 200 [facility] [place] [address] Nik Melo MD 200 [facility] [place] [address] [phone] Appointment Allergies Active Allergy Reactions Severity Noted [...] times a day. As needed 0 Active [place]-3 Fatty Acids (FISH OIL) 1000 MG Capsule [...] chemotherapy treatment. Pt can be reached at [phone]. documented in this encounter Plan of Treatment Upcoming Encounters Date Type Specialty Care Team Description 09/06/2021 Office Visit [facility] [place] [address] 12/14/2021 Office Visit Urology Cm Rhodes MD [address] [address] [place] [address] Health Maintenance Due Date [...] of this encounter Implants Implanted Type Area Pickle Sorter Device Identifier Shelf Expiration Date Model / Serial / Lot Cath Power Port 6fr Clearvue - [id number] Implanted:Qty : 1 on 08/10/2021 [place] [facility] [place] Subclavian CR BARD : PERIPHERAL VASCULAR 08/21/2021 [id number] / / documented as of this encounter Advance Directives Documents on File Type Date Recorded Patient Flat Lock Machine Operator Expl anation Advanced Directive Advanced [...]
--- OUTSIDE RECORDS SUMMARY | 2023-06-27 08:02 | External Medical Summary | Summary of Care ---
Author Name Unknown Organization [facility] Address [place] [address] Care Team Providers Care Area Secretary Name Role Phone Hortencia Leal PA-C Primary Care Provid er Encounter Details Date Type Department Care Team Description 08/10/2021 Orders Only Hematology/Oncology, [facility] 400 [facility] [place] [address] Nik Melo MD 200 [place] [address] Allergies Active Allergy Reactions Severity Noted [...] times a day. As needed 0 Suspended [place]-3 Fatty Acids (FISH OIL) 1000 MG Capsule [...] 40 Tab 0 08/03/2021 Suspended Additional Information Prochlorperazine Maleate 10 MG Oral Tablet (Compazine)Indicat ions:Malignant neoplasm of overlapping sites of stomach (HCC) Take 1 Tab by mouth every 6 hours as needed for Nausea. 30 Tab 0 08/03/2021 Suspended Additional Information Ondansetron HCl 8 MG Oral TabletIndications: Malignant neoplasm of overlapping sites of stomach (HCC) Take 1 Tab by mouth every 8 hours as needed for Nausea. 30 Tab 0 08/03/2021 Suspended Additional Information documented as of this encounter (statuses as [...] [address] [place] [address] [phone] 09/06/2021 Office Visit Gastroenterology Angela Herbert CRNP [address] [place] [address] [phone] Health Maintenance Due Date Last Done Comments [...] Documents on File Type Date Recorded Patient Pens And Pencils Repairer Expl anation Advanced Directive Advanced Directive 01/03/2011 [...]
--- OUTSIDE RECORDS SUMMARY | 2023-06-27 08:02 | External Medical Summary | Summary of Care ---
Author Name Unknown Organization [place] [address] Care Team Providers Care Veneer Jointer Returner Name Role Phone Hortencia Leal PA-C Primary Care Provid er Reason for Visit * Reason Onset Date Comments Test Results 08/09/2021 Encounter Details Date Type Department Care Team Description 08/09/2021 Telephone Hematology/Oncology Treatment, [place] 200 [place] [address] Nik Melo MD 200 [facility] [place] [address] [phone] Test Results Allergies Active Allergy Reactions Severity [...] times a day. As needed 0 Active [place]-3 Fatty Acids (FISH OIL) 1000 MG Capsule [...] encounter Miscellaneous Notes * Telephone Encounter - Ventia Byers RN - 08/09/2021 8:39 AM EDT [...] Encounter Surgery Alexander Rodriguez MD [address], [place] [id number] 08/10/2021 Surgery Surgery Alexander Rodriguez MD [address], [place] [id number] LAPAROSCOPY WITH BIOPSY 08/16/2021 Office Visit Urology Cm Rhodes MD 27 [facility] [address] [place] [address] 09/06/2021 Office Visit Gastroenterology Angela Herbert CRNP [address] [facility] [place] [address] Health Maintenance Due Date Last Done [...] Documents on File Type Date Recorded Patient Heel Seat Fitter Expl anation Advanced Directive Advanced Directive 01/03/2011 [...]
--- OUTSIDE RECORDS SUMMARY | 2023-06-27 08:02 | External Medical Summary | Summary of Care ---
Author Name Unknown Organization [place] [address] Care Team Providers Care Inorganic Chemistry Teacher Name Role Phone Hortencia Plata PA-C Primary Care Provid er Reason for Visit * Reason Comments Follow Up 4 month with Lisa Encounter Details Date Type Department Care Team Description 08/16/2021 [facility] [place] [address] Cm Rhodes MD 27 [facility] [address] [address] Prostate cancer (HCC)*; Kidney stones; Rising PSA following treatment for malignant neoplasm of prostate; RINA (stress urinary incontinence), male; 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 As needed 0 Active [place]-3 Fatty Acids (FISH OIL) 1000 MG Capsule [...] Pressure - - Pulse - - Temperature 36.7 C (98 F) 08/16/2021 8:34 AM EDT Respiratory Rate - - Oxygen Saturation - - Inhaled Oxygen Concentration - - Weight 83.5 kg (184 lb) 08/16/2021 8:34 AM EDT Height - - Body Mass Index 31.58 08/10/2021 8:15 AM EDT documented in this encounter Progress Notes * Cm Rhodes MD - 08/16/2021 8:33 AM EDT [id number] PCP: HORTENCIA PLATA [address] [place] [address] [phone] Heath Austin is a 75 year old male, who presents for follow-up of his history of kidney stones and prostate cancer. Patient's extensive urologic history is noted. 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 He notes chemoradiation is planned. PET scan results shows no stones, additional findings reviewed. He notes his just had an AR, hefeels "preoccupied." He notes easy fatiguability. Prostate cancer: Prostatectomy [place] [address] Marie. 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 Lupron from Aug 2017 to 2019. Restarted in 2020 due to a rising PSA, last injection March 2021. PSA Results: Lab Results Component Value Date/Time PSA - [facility] <0.02 08/03/2021 01:48 PM PSA - [facility] <0.02 01/24/2021 10:11 AM PSA - [facility] 0.08 11/01/2020 10:00 AM PSA - [facility] <0.02 02/24/2020 09:52 AM PSA - [facility] <0.02 11/21/2019 09:43 AM PSA-OUTSIDE LAB 0.074 05/16/2016 Urinary incontinence: Post prostatectomy. Pelvic floor PT in 2018. Urolithiasis: Patient is being seen for stone disease today. Problem has been present for years. Follows with . Severity is mild Problem is about the same. Patient has had the following imaging done: CT scan. In the past they have had no surgery for stoneto manage their stones. Previous evaluation was done in this clinic. Current Outpatient Medications Medication Sig Dispense Refill [...] mouth 2 times a day. As needed [place]-3 Fatty Acids (FISH OIL) 1000 MG Capsule [...] needed for Pain, Severe. 10 Tab 0 No current facility-administered medications for this visit. Review of patient's allergies indicates: Allergen Reactions Amlodipine dizziness Codeine Sulfate Other (Please comment) hyperactivity Hctz [Hydrochlorothiazide] hypercalcemia Social History: Social History Tobacco Use Smoking [...] performedby Roz Tracey MD at ENDOSCOPY [facility] COLONOSCOPY, DIAGNOSTIC (RECTUM) 07/15/2021 COLONOSCOPY FLEXIBLE PROXIMAL DIAGNOSTIC performed by Roz Tracey MD at [facility]OSCOPY [facility] EGD, FLEXIBLE, DIAGNOSTIC 07/15/2021 ESOPHAGOGASTRODUODENOSCOPY (EGD), FLEXIBLE, TRANSORAL, DIAGNOSTIC performed by Roz Tracey MD at [facility] EGD, W/ENDOSCOPIC US 08/02/2021 ESOPHAGOGASTRODUODENOSCOPY (EGD), FLEXIBLE, TRANSORAL, ENDOSCOPIC ULTRASOUND performed by Brendan Gomez MD at [facility]OSCOPY [facility] INSER TUNN ACC DEV;5 YRS/OLDER N/A 08/10/2021 INSERT TUNNELED CENTRAL VENOUS ACCESS WITH SUBQ PORT performed by [place] Rodriguez [place] [facility] [place]NEE ARTHROSCOPY, DIAGNOSTIC 1989 Knee Arthroscopy right LAPAROSCOPY,BIOPSY N/A 08/10/2021 LAPAROSCOPY WITH BIOPSY performed by Alexander Rodriguez MD at [facility] NEEDLE/PUNCH BIOPSY OF PROSTATE 01/05/2011 BIOPSY PROSTATE NEEDLE performed by EYAD MARIE at [facility] PROSTATECTOMY, RETROPUBIC RADICAL, LAP 10/30/2011 ROBOTIC LAPAROSCOPIC PROSTATECTOMY RETROPUBIC RADICAL performed by EYAD MARIE at [facility] REMOVAL OF TONSILS, UNDER AGE 12 Tonsillectomy REPAIR INITIAL INCISIONAL HERNIA 04/18/2012 Laparoscopic ventral hernia repair with 4 x [address] Adams 04/18/12 US ECHO TRANSRECTAL/PROSTATE 01/05/2011 ULTRASOUND TRANSRECTAL performed [place] EYAD MARIE [place] [facility] Past Medical History: Diagnosis Date Actinic keratosis [...] (HCC) C16.8 Encounter for antineoplastic chemotherapy Z51.11 Constitutional: (+) fatigue ENT: (-) hearing loss Cardiovascular: (+) exertional dyspnea Pulmonary: (-) cough Abdominal/GI: (+) abdominal pain and (+) minimal postop Male : see HPI Neurology: (+) generalized weakness Psychiatry: (-) negative: no depression or anxiety Physical Exam Constitutional: Appearance: Normal appearance. He is not ill-appearing or toxic-appearing. HENT: Head: Normocephalic and atraumatic. Right Ear: External ear normal. Left Ear: External ear normal. Nose: Nose normal. Mouth/Throat: Mouth: Mucous membranes are moist. Neck: Musculoskeletal: Normal range of motion and neck supple. Cardiovascular: Pulses: Normal pulses. Pulmonary: Effort: Pulmonary effort is normal. No respiratory distress. Abdominal: Palpations: Abdomen is soft. Tenderness: There is no abdominal tenderness. Lymphadenopathy: Cervical: No cervical adenopathy. Skin: Coloration: Skin is pale. Skin is not cyanotic. Neurological: General: No focal deficit present. Mental Status: He is alert and oriented to person, place, and time. Psychiatric: Attention and Perception: Attention normal. Mood and Affect: Mood and affect normal. Behavior: Behavior normal. Thought Content: Thought content normal. Impression/Plan: 75-year-old male with recurrent prostate cancer, urinary incontinence, now with metastatic gastric cancer. Seen the patient's ongoing health issues I think it would be reasonable to hold his Lupron for the time being. It would also be reasonable to consider intermittent androgen deprivation when the PSA rises to a higher level. I suspect that the patient's primary issue in the short term is going to be his new finding of metastatic gastric cancer. No stones visible on recent scan, voiding essentially remains at baseline. As reviewed with patient, during his ongoing treatment I would not be surprisedif his voiding worsens somewhat. Will see the patient in 4 months with a PSA to check on progress off of Lupron. If the patient desires, telemedicine visit should be okay to avoid the need for travel. Patient vocalizes good understanding of the treatment plan. Contact us sooner as needed with any urologic difficulties. Cm Rhodes MD 8:34 AM 08/16/2021 documented in this encounter Nursing Notes * Salina Borja LPN - 08/16/2021 8:36 AM EDT Patient presents for four month follow up for prostate cancer. Due for Eligard. Starting chemotherapy soon. Denies any urinary trouble. documented in this encounter Plan of Treatment Upcoming Encounters Date Type Specialty Care Team Description 09/06/2021 Office Visit Gastroenterology Angela eHrbert CRNP [address] [address] 12/14/2021 [facility] [address] [place] [address] Scheduled Orders Name Type Priority Associated Diagnoses Orde r Schedule PSA Lab Routine Prostate cancer (HCC) Expected: 11/16/2021, Expires: 2 Health Maintenance Due Date Last Done Comments [...] of this encounter Implants Implanted Type Area Revenue Integrity Analyst Device Identifier Shelf Expiration Date Model / Serial / Lot Cath Power Port 6fr Clearvue - [id number] Implanted:Qty : 1 on 08/10/2021 by Alexander Rodriguez MD at [facility] Left: Subclavian CR BARD : PERIPHERAL VASCULAR 08/21/2021 [id number] / / documented as of this encounter Visit Diagnoses Diagnosis Prostate cancer (HCC)- Primary Malignant neoplasm of prostate Kidney stones Calculus of kidney Rising PSA following treatment for malignant neoplasm of prostate RINA (stress urinary incontinence), male Stress incontinence, male Prostate cancer metastatic to multiple sites (HCC) Malignant neoplasm of prostate Renal cyst, acquired Acquired cyst of kidney documented in this encounter Advance Directives Documents on File Type Date Recorded Patient Plastic Molding Operator Expl anation Advanced Directive Advanced Directive [...]
--- OUTSIDE RECORDS SUMMARY | 2023-06-27 08:02 | External Medical Summary | Summary of Care ---
Author Name Unknown Organization [facility] Address [facility] [place] [address] Care Team Providers Care Sales Secretary Name Role Phone Hortencia Leal PA-C Primary Care Provid er Reason for Visit * Reason Onset Date Comments Precert Future 08/04/2021 carbo/ taxol Encounter Details Date Type Department Care Team Description 08/04/2021 Telephone Hematology/Oncology Treatment, [place] 200 [facility] [place] [address] Nik Melo MD 200 [place] [address] [phone] Precert Future (carbo/ taxol) Allergies Active Allergy [...] times a day. As needed 0 Active [place]-3 Fatty Acids (FISH OIL) 1000 MG Capsule [...] to receive weekly carbo/taxol during radiation therapy. [place] plan adjusted. Education visit 08/08/21. Hepatitis labs added to labs drawn 08/03/21. documented in this encounter Plan of Treatment Upcoming Encounters Date Type Specialty Care Team Description 08/10/2021 Hospital Encounter Surgery Alexander Rodriguez MD [address] [place] [id number] 08/10/2021 Surgery [facility] [id number] LAPAROSCOPY WITH BIOPSY 08/16/2021 Office Visit Urology Cm Rhodes MD [address] [address] [place] [address] [phone] 09/06/2021 Office Visit Gastroenterology Angela Herbert CRNP [address] [place] [address] [phone] Scheduled Orders Name Type Priority Associated Diagnoses [...] Antibodies IgG and IgM Negative Negative LABORATORY [facility] Specimen Blood - Venous blood specime n (specimen) LABORATORY [facility] [address] [facility] [place] [address] * HEPATITIS B SURFACE ANTIGEN (08/03/2021 1:48 PM EDT) Hepatitis B Surface Antigen Negative Negative LABORATO RY [facility] Specimen Blood - Venous blood specime n (specimen) Performing Organization Address City/[facility]/ZIP Co de Phone Number LABORATORY [facility] [address] [place] [address] * HEPATITIS B SURFACE ANTIBODY (08/03/2021 1:48 PM EDT) Hepatitis B Surface Antibody, Quantitative <3.5 mIU/mL LAB[facility]ORY [facility] Hepatitis B Surface Antibody, Qualitative Negative [facility] Hepatitis B Surface Antibody, Interpretation NOT immune to Hepatitis B Virus Comment: POSITIVE: >=11.5 mIU/mL INDETERMINATE: 8.5-<11.5 mIU/mL NEGATIVE: <8.5 mIU/mL LAB[facility]ORY [facility] Specimen Blood - Venous blood specime n (specimen) Performing Organization Address [facility] Co de Phone Number LABORATORY [facility] [address] [place] [address] documented in this encounter Visit Diagnoses Diagnosis Malignant neoplasm of overlapping sites of stomach (HCC)- Primary Malignant neoplasm of other specified sites of stomach Encounter for antineoplastic chemotherapy Encounter for screening for viral disease Malignant neoplasm of overlapping sites of stomach (HCC) Malignant neoplasm of other specified sites of stomach documented in this encounter Advance Directives Documents on File Type Date Recorded Patient School Laboratory Technician Expl anation Advanced Directive Advanced [...]
--- OUTSIDE RECORDS SUMMARY | 2023-06-27 08:02 | External Medical Summary ---
Author Name Unknown Address Unknown Organization : Laboratory Report Ordering Provider Test Date Status YENNI TUCKER 08/10/2021 12:01:45 Final Observation Date Value Abnormality Reference (Units ) Status Glucose Point of Care 08/10/2021 12:01:45 162 Above high normal 70-120 (mg/dL) Final Performing Location
--- OUTSIDE RECORDS SUMMARY | 2023-06-27 08:03 | External Medical Summary | Summary of Care ---
Author Name Unknown Organization [facility] Address [facility] [place] [address] Care Team Providers Care Information Management Specialist Name Role Phone Hortencia Leal PA-C Primary Care Provid er Reason for Visit * Reason Onset Date Comments Precert Future 08/04/2021 carbo/ taxol Encounter Details Date Type Department Care Team Description 08/04/2021 Telephone Hematology/Oncology Treatment, [place] [address] [place] [address] Nik Melo MD [address] [place] [address] [phone] Precert Future (carbo/ taxol) Allergies Active Allergy Reactions Severity Noted Date Comments Amlodipine 11/02/2020 dizziness Codeine Sulfate Other (Please comment) 10/26/19 11 hyperactivity Hydrochlorothiazide 11/02/2020 hypercalcemia documented as of this encounter (statuses as of 08/08/2021) Medications Medication Sig Dispensed Refills Start Date [...] times a day. 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 [place] plan adjusted. Education visit 08/08/21. Hepatitis labs added to labs drawn 08/03/21. documented in this encounter Plan of Treatment Upcoming Encounters Date Type Specialty Care Team Description 08/10/2021 Hospital Encounter Surgery Alexander Rodriguez MD [address], [place] [id number] 08/10/2021 Surgery Surgery Alexander Rodriguez MD [address] [place] [address] [phone] LAPAROSCOPY WITH BIOPSY 08/16/2021 Office Visit [facility]rology Cm Rhodes MD [facility] [address] [place] [address] 09/06/2021 Office Visit Gastroenterology Angela Herbert CRNP [address] [place] [address] [phone] Scheduled Orders Name Type Priority Associated Diagnoses [...] AND IGM (08/03/2021 1:48 PM EDT) Pathologist [facility] Hepatitis B Core Antibodies IgG and IgM Negative Negative [facility] Specimen Blood - Venous blood specime n (specimen) Performing Organization Address City/[facility]/ZIP Co de Phone Number [facility] [address] [place] [address] * HEPATITIS B SURFACE ANTIGEN (08/03/2021 1:48 PM EDT) Hepatitis B Surface Antigen Negative Negative [facility] Specimen Blood - Venous blood specime n (specimen) Performing Organization Address [facility] Co de Phone Number [facility] [address] [place] [address] * HEPATITIS B SURFACE ANTIBODY (08/03/2021 1:48 PM EDT) Hepatitis B Surface Antibody, Quantitative <3.5 mIU/mL [facility] Hepatitis B Surface Antibody, Qualitative Negative [facility] Hepatitis B Surface Antibody, Interpretation NOT immune to Hepatitis B Virus Comment: POSITIVE: >=11.5 mIU/mL INDETERMINATE: 8.5-<11.5 mIU/mL NEGATIVE: <8.5 mIU/mL [facility] Specimen Blood - Venous blood specime n (specimen) Performing Organization Address City/State/[facility] Co de Phone Number [facility] [address] [place] [phone] documented in this encounter Visit Diagnoses Diagnosis Malignant neoplasm of overlapping sites of stomach (HCC)- Primary Malignant neoplasm of other specified sites of stomach Encounter for antineoplastic chemotherapy Encounter for screening for viral disease Malignant neoplasm of overlapping sites of stomach (HCC) Malignant neoplasm of other specified sites of stomach documented in this encounter Advance Directives Documents on File Type Date Recorded Patient Materials Planning Analyst Expl anation Advanced Directive Advanced Directive 01/03/2011 [...]
--- OUTSIDE RECORDS SUMMARY | 2023-06-27 08:03 | External Medical Summary | Summary of Care ---
Author Name Unknown Organization [facility] Address [facility] [place] [address] Care Team Providers Care Mannequin Mounter Name Role Phone Hortencia Leal PA-C Primary Care Provid er Reason for Visit * Reason Onset Date Comments Precert Future 08/04/2021 carbo/ taxol Encounter Details Date Type Department Care Team Description 08/04/2021 Telephone Hematology/Oncology Treatment, [place] [address] [facility] [place] [address] Nik Melo MD [address] [place] [address] [phone] Precert Future (carbo/ taxol) Allergies Active Allergy [...] times a day. As needed 0 Active [place]-3 Fatty Acids (FISH OIL) 1000 MG Capsule [...] to receive weekly carbo/taxol during radiation therapy. [place] plan adjusted. Education visit 08/08/21. Hepatitis labs added to labs drawn 08/03/21. documented in this encounter Plan of Treatment Upcoming Encounters Date Type Specialty Care Team Description 08/10/2021 Hospital Encounter Surgery Alexander Rodriguez MD [address] [place], [place] [id number] 08/10/2021 Surgery Surgery Alexander Rodriguez MD [address] [place] [address] [phone] LAPAROSCOPY WITH BIOPSY 08/16/2021 Office Visit Urology Cm Rhodes MD [address] [address] 09/06/2021 Office Visit Gastroenterology Angela Herbert CRNP [address] [place] [address] Scheduled Orders Name Type Priority Associated [...] Antibodies IgG and IgM Negative Negative [facility] Specimen Blood - Venous blood specime n (specimen) Performing Organization Address [facility] de Phone Number [facility] [address] [place] [address] * HEPATITIS B SURFACE ANTIGEN (08/03/2021 1:48 PM EDT) Hepatitis B Surface Antigen Negative Negative [facility] Specimen Blood - Venous blood specime n (specimen) Performing Organization Address [facility] de Phone Number [facility] [address] [place] [address] * HEPATITIS B SURFACE ANTIBODY (08/03/2021 1:48 PM EDT) Hepatitis B Surface Antibody, Quantitative <3.5 mIU/mL [facility] Hepatitis B Surface Antibody, Qualitative Negative [facility] Hepatitis B Surface Antibody, Interpretation NOT immune to Hepatitis B Virus Comment: POSITIVE: >=11.5 mIU/mL INDETERMINATE: 8.5-<11.5 mIU/mL NEGATIVE: <8.5 mIU/mL [facility] Specimen Blood - Venous blood specime n (specimen) Performing Organization Address [facility]/State/ZIP Co de Phone Number [facility] [address] [place] [address] documented in this encounter Visit Diagnoses Diagnosis Malignant neoplasm of overlapping sites of stomach (HCC)- Primary Malignant neoplasm of other specified sites of stomach Encounter for antineoplastic chemotherapy Encounter for screening for viral disease Malignant neoplasm of overlapping sites of stomach (HCC) Malignant neoplasm of other specified sites of stomach documented in this encounter Advance Directives Documents on File Type Date Recorded Patient Accounts Payable Coordinator Expl anation Advanced Directive Advanced Directive 01/03/2011 [...]
--- OUTSIDE RECORDS SUMMARY | 2023-06-27 08:03 | External Medical Summary | Summary of Care ---
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) Prostate cancer (HCC) Alexander Rodriguez MD [address] [place] [address] Question Answer Referral Priority Within 30 days [...] Care Team Description 08/04/2021 Documentation General Surgery, [place] [address] [place], [place] [id number] Sveta Salas, LAN [address] [place] [address] 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 Rodriguez, Dr. Escalera, Dr. Barraza, and Dr. Glover Medical Oncology: Dr. Spann Radiation Oncology: Dr. Wilson, Dr. West, and Dr. Umanzor Pt presented for discussed at [facility] today for large tumor of GEJ, involving lower esophagus. Plan agreed upon is: diagnostic laparoscopy and mediport- plan for 08/10/2021, previously referred to Dr. Melo and Dr. Mccray- concurrent chemo/ RT contingent upon biopsy results, genetics referral. documented in this encounter Plan of Treatment Upcoming Encounters Date Type Specialty Care Team Description 08/08/2021 Nurse Only Hematology Oncology Maddy, Nurse Hem Onc [facility] [address] [place] [address] 08/16/2021 Office Visit Urology Cm Rhodes MD [address] [place] [address] [place] [address] [phone] 09/06/2021 Office Visit Gastroenterology Angela Herbert CRNP [address] [facility] [place] [address] [phone] Scheduled Referrals Name Type Priority Associated Diagnoses [...] on File Type Date Recorded Patient Manager Supply Chain Expl anation Advanced Directive Advanced Directive 01/03/2011 [...]
--- OUTSIDE RECORDS SUMMARY | 2023-06-27 08:03 | External Medical Summary | Summary of Care ---
Author Name Unknown Organization [place] [address] Care Team Providers Care Learning And Development Intern Name Role Phone Hortencia Leal PA-C Primary Care Provid er Reason for Visit * Reason Comments Follow Up 6m Encounter Details Date Type Department Care Team Description 08/03/2021 Office Visit Hematology/Oncology [facility] [address] 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 As needed 0 Active [place]-3 Fatty Acids (FISH OIL) 1000 MG Capsule [...] Sign Reading Time Taken Comments Blood Pressure 140/56 08/03/2021 2:14 PM EDT Pulse 77 08/03/2021 2:14 PM EDT Temperature 36.8 C (98.2 F) 08/03/2021 2:14 PM ED T Respiratory Rate 16 08/03/2021 2:14 PM EDT Oxygen Saturation 98% 08/03/2021 2:14 PM EDT Inhaled Oxygen Concentration - - Weight 84.4 kg (186 lb) 08/03/2021 2:14 PM EDT Height - - Body Mass Index 31.53 07/28/2021 12:24 PM EDT documented in this encounter Patient Instructions * Patient Instructions* Venecia Carlin CMA - 08/03/2021 2:16 PM EDT ~~PATIENT INSTRUCTIONS FOR PNEUMOCOCCAL VACCINE~~ Possible side effects of pneumococcal vaccine, (pneumonia shot), are usually mild and can include: 1. Soreness or redness at injection site 2. Low grade fever 3. Body aches You may use Tylenol/Acetaminophen as needed for these symptoms. LET YOUR DOCTOR KNOW IMMEDIATELY IF YOU HAVE DIFFICULTY BREATHING OR SWALLOWING, EXPERIENCE ITCHINGOF FEET OR HANDS, HAVE SWELLING OF EYES, FACE OR INSIDE OF NOSE. documented in this encounter Progress Notes * Nik Melo MD - 08/03/2021 2:46 PM EDT Outpatient Consult Note Data Source: Patient, Epic record. 08/03/2021 2:46 PM [facility] [place] [id number] 75 year old Hortencia Leal PA-C Self Patient Encounter: HEMATOLOGY/ONCOLOGY [facility] Reason for consult: Esophageal cancer HPI: 75-year-old male with past medical history significant [...] significant for prostate cancer was diagnosed in nd underwent a robotic assisted radical prostatectomy on 10/30/2011. Histopathology was consistent with adenocarcinoma moderately differentiated overall [place] score was 3+4=7with perineural invasion. Histopathology was [...] radical prostatectomy: Adenocarcinoma, moderately poorly differentiated Overall [place] score 3+4=7 High grade prostatic intraepithelial neoplasia [...] 0.6 cm HISTOLOGIC TYPE: Adenocarcinoma HISTOLOGIC GRADE ([place]): Primary pattern is: Grade 3: single acini of variable size and separation, cribriform and papillarypatterns Secondary pattern is: Grade 3: single acini of variable size and separation, cribriform and papillary patterns [place] Score (primary + secondary) = 5-6: Moderately well differentiated Nodule #2, involves: right lateral apex and right apex Dimensions: 0.9 x 0.3 x 0.9 cm HISTOLOGIC TYPE: Adenocarcinoma HISTOLOGIC GRADE (Juan): Primary pattern is: Grade 3: single acini of variable size and separation, cribriform and papillarypatterns Secondary pattern is: Grade 3: single acini of variable size and separation, cribriform and papillary patterns [place] Score (primary + secondary) = 5-6: Moderately well differentiated Nodule #3 (dominant nodule), involves: left mid, left lateral mid, left lateral, left apex, and left lateral apex Dimensions: 2.5 x 1.5 x 2.1 cm HISTOLOGIC TYPE: Adenocarcinoma HISTOLOGIC GRADE ([place]): Primary pattern is: Grade 3: single acini of variable size and separation, cribriform and papillarypatterns Secondary pattern is: Grade 4: irregular masses of acini and fused epithelium, can show clear cells Juan Score (primary + secondary) = 7: Moderately poorly differentiated [place] Score (primary + secondary) = 8-10: Poorly [...] and father was diagnosed of colon cancer. Past Medical History: Diagnosis Date Actinic keratosis [...] Current Outpatient Medications Medication Sig Dispense Refill Dexamethasone 4 MG Oral Tablet (Decadron) 12 mg (3 tab) 12 and 6 hours before chemotherapy 40 Tab 0 Ondansetron HCl 8 MG Oral Tablet Take 1 Tab by mouth every 8 hours as needed for Nausea. 30 Tab0 Prochlorperazine Maleate 10 MG Oral Tablet (Compazine) Take 1 Tab by mouth every 6 hours as needed for Nausea. 30 Tab 0 Vitamin C 500 MG Oral Capsule Take by mouth. Ferrous Sulfate 325 (65 Fe) MG Oral Tablet (Feosol) TAKE ONE TABLET BY MOUTH EVERY 48 HOURS SAME ASIRON Acetaminophen 325 MG Oral Tablet (Tylenol) Take 325 mg by mouth every 6 hours as needed. Alogliptin Benzoate 12.5 MG TABS Take 12.5 mg by mouth daily. [place]-3 Fatty Acids (FISH OIL) 1000 MG Capsule Take 1,000 mg by mouth daily. 2 capsules by mouth twice daily Aspirin 81 MG Tablet Take 81 mg by mouth daily. Cholecalciferol (VITAMIN D-3) 1000 units Capsule Take 1,000 Units by mouth daily. meclizine (ANTIVERT) 12.5 MG Tablet Take 12.5 mg by mouth 2 times a day. As needed ATORVASTATIN CALCIUM 20 MG PO TABS Take 40 mg by mouth. VITAMIN B-12 1000 MCG PO TABS Take 500 mcg by mouth. LISINOPRIL 20 MG PO TABS Take by mouth 2 times a day. METFORMIN ER 500 MG PO TB24 Take 500 mg by mouth 2 times a day. Social History Socioeconomic History Marital status: Spouse name: Not on file Number of children: Not on file Years of education: Not on file Highest education level: Not on file Occupational History Not on file Social Needs Financial resource strain: Not on file Food insecurity Worry: Not on file Inability: Not on file Transportation needs Medical: Not on file Non-medical: Not on file Tobacco Use Smoking status: Never Smoker Smokeless tobacco: Never Used Substance and Sexual Activity Alcohol use: No Drug use: No Sexual activity: Not on file Lifestyle Physical activity Days per week: Not on file Minutes per session: Not on file Stress: Not on file Relationships Social connections Talks on phone: Not on file Gets together: Not on file Attends worship service: Not on file Active member of club or organization: Not on file Attends meetings of clubs or organizations: Not on file Relationship status: Not on file Intimate partner violence Fear of current or ex partner: Not on file Emotionally abused: Not on file Physically abused: Not on file Forced sexual activity: Not on file Other Topics Concern Not on file Social History Narrative Not on file Vaping/E-Cigarette Use Vaping/E-Cigarette Use Never User Vaping/E-Cigarette Substances Vaping/E-Cigarette Devices Family History Problem Relation Age of Onset Colon cancer Father REVIEW OF SYSTEMS: General: No Fever, chills, [...] bleeding Genitourinary: Denies Hematuria or dysuria Musculoskeletal: Complaining generalized weakness and fatigue Skin: No skin rash or lesions noted Neurologic: No numbness, weakness, neuropathic pain or change in cognitive function Psychiatric: No vegetative signs of depression Endocrine: No symptoms of hypothyroidism or hyperglycemia Hematologic: No bleeding or lymph nodes noted As mentioned above, all other systems were reviewed in full and are unremarkable. Review of patient's allergies indicates: Allergen Reactions Amlodipine dizziness Codeine Sulfate Other (Please comment) hyperactivity Hctz [Hydrochlorothiazide] hypercalcemia PHYSICAL EXAMINATION: General Appearance: pale appearing patient in no acute distress BP 140/56 (BP Site: Left Arm, BP Position: Sitting, BP Cuff Size: Regular) | Pulse 77 | Temp 36.8 C (98.2 F) (Infrared ) | Resp 16 | Wt 84.4 kg (186 lb) | SpO2 98% | BMI 31.53 kg/m | BSA 1.96 m Vitals were reviewed. HEENT: No oral or pharyngeal masses, [...] into the stomach with positive lymph node. Based on information patient has stage T3 and disease. Patient was seen by Dr. Rodriguez and he recommend to treat the patient with chemoradiation. Patient has appointment with radiation oncology next week. 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 Discussed with the patient in detail about diagnosis, prognosis, benefit, risk, side effect toxicity of the treatment. After detailed discussionhe agreed to proceed with treatment signed the consent form. He has appointment with Radiation therapy next week. Anemia is most likely because of the bleeding and he received 1 dose of Venofer on 07/26/2021. PLAN: As above. Patient will be treated with weekly Taxol and carboplatin. He will return to clinic for follow-up in 3 weeks with CBC and CMP. The patient [...] clarification, please direct questions to me.) * Nik Melo MD - 08/03/2021 2:22 PM EDT error documented in this encounter Nursing Notes * Venecia Carlin CMA - 08/03/2021 2:16 PM EDT Patient identifed by name and [...] it for you? ALREADY ACTIVE Filed Vitals: 08/03/21 1414 BP: 140/56 Pulse: 77 Resp: 16 Temp: 36.8 C (98.2 F) TempSrc: Infrared SpO2: 98% Weight: 84.4 kg (186 lb) documented in this encounter Miscellaneous Notes * Oncology Pathways Update - Nik Melo MD - 08/03/2021 2:32 PM EDT START ON PATHWAY REGIMEN - Gastroesophageal [id number]: Carboplatin + Paclitaxel (2/50) Weekly (x 5-6 Weeks) with Concurrent RT Administer weekly during RT: Paclitaxel (Taxol) 50 mg/m2 in 250 mL NS IV over 60 minutes weekly with concurrent RT Carboplatin (Paraplatin) AUC=2 in 100 mL NS IV over 30 minutes weekly with concurrent RT Always confirm dose/schedule in your pharmacy ordering system Citations: -van Dale P, Mirian MARTINO, nisha SCHUMACHER, et al. Preoperative chemoradiotherapy for esophageal orjunctional cancer. N Engl J Med. 2012;366(73):8963-71. URL: http://www.ncbi.nlm.nih.gov/pubmed/72911375 Patient Characteristics: Esophageal & GE Junction, Adenocarcinoma, Preoperative or Nonsurgical Candidate (Clinical Staging), cT2 or Higher or cN+, Surgical Candidate (Up to cT4a) - Preoperative Therapy, Esophageal Histology: Adenocarcinoma Disease Classification: Esophageal Therapeutic Status: Preoperative or Nonsurgical Candidate (Clinical Staging) AJCC Grade: GX AJCC 8 Stage Grouping: HARPREET AJCC T Category: cT3 AJCC N Category: cN2 AJCC M Category: cM0 * Oncology Pathways Notification - Nik Melo MD - 08/03/2021 2:32 PM EDT A new patient decision has been made in [facility]Path. Details of this patient have been provided below: Patient Information: Name: Heath Austin : 1945 Insurance Provider: MEDICARE A AND B Insurance Provider Name: Nik Melo Disease: Gastroesophageal Pathway Followed: Gastroesophageal, Esophageal & GE [place], Adenocarcinoma, Preoperative or Nonsurgical Candidate (Clinical Staging), cT2 or Higher or cN+, Surgical Candidate (Up to cT4a) - Preoperative Therapy, Esophageal Patient Characteristics: Esophageal & GE [place], Adenocarcinoma, Preoperative or Nonsurgical Candidate (Clinical Staging), cT2 or Higher or cN+, Surgical Candidate (Up to cT4a) - Preoperative Therapy, Esophageal Histology: Adenocarcinoma Disease Classification: Esophageal Therapeutic Status: Preoperative or Nonsurgical Candidate (Clinical Staging) AJCC Grade: GX AJCC 8 Stage Grouping: HARPREET AJCC T Category: cT3 AJCC N Category: cN2 AJCC M Category: cM0 Treatment Details: START ON PATHWAY REGIMEN [id number]: Carboplatin + Paclitaxel (2/50) Weekly (x 5-6 Weeks) with Concurrent RT Administer weekly during RT: Paclitaxel (Taxol) 50 mg/m2 in 250 mL NS IV over 60 minutes weekly with concurrent RT Carboplatin (Paraplatin) AUC=2 in 100 mL NS IV over 30 minutes weekly with concurrent RT Always confirm dose/schedule in your pharmacy ordering system Citations: -nisha Hunter P, Mirian MARTINO, nisha SCHUMACHER, et al. Preoperative chemoradiotherapy for esophageal orjunctional cancer. N Engl J Med. 2012;366(22):9204-61. URL: http://www.ncbi.nlm.nih.gov/pubmed/63322485 documented in this encounter Plan of Treatment Upcoming Encounters Date Type Specialty Care Team Description 08/10/2021 Hospital Encounter Surgery Alexander Rodriguez MD [address] [place] [address] [phone] 08/10/2021 Surgery Surgery Alexander Rodriguez MD [address] [place] [address] [phone] LAPAROSCOPY WITH BIOPSY 08/16/2021 Office Visit Urology Cm Rhodes MD [address] [address] [place] [address] 09/06/2021 Office Visit Gastroenterology Angela Herbert CRNP [address] [place] [address] Health Maintenance Due Date Last Done [...] as of this encounter Visit Diagnoses Diagnosis Need for pneumococcal vaccination- Primary Need for prophylactic vaccination against streptococcus pneumoniae (pneumococcus) 

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
--- OUTSIDE RECORDS SUMMARY | 2023-06-27 08:03 | External Medical Summary | Summary of Care ---
Author Name Unknown Organization [place] [address] Care Team Providers Care Window And Siding Craftsman Name Role Phone Hortencia Leal PA-C Primary Care Provid er Reason for Visit * Reason Onset Date Comments Other 08/04/2021 Encounter Details Date Type Department Care Team Description 08/04/2021 Telephone General Surgery, [place] [address] [place] [address] Alexander Rodriguez MD [address] [place] [address] Other Allergies Active Allergy Reactions Severity Noted [...] encounter Miscellaneous Notes * Addendum Note - Sveta Mobley RN - 08/05/2021 10:00 AM EDT Addended by: SVETA MOBLEY on: 08/05/2021 10:00 AM Modules accepted: Orders * Telephone Encounter - Sveta Mobley RN - 08/05/2021 9:48 AM EDT Pc to pt regarding schedule surgery. Pt offered and accepted 08/10/2021. Preop instructions reviewed and patient advised to obtain EKG prior. Pt verb und and appreciation. * Telephone Encounter - Sveta Mobley RN - 08/04/2021 2:57 PM EDT LMOMtc. Clinic number provided. 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 Please call him back at, . documented in this encounter Plan of Treatment Upcoming Encounters Date Type Specialty Care Team Description 08/08/2021 Nurse Only Hematology Oncology [place], Nurse Hem Onc [facility] [address] [place] [address] [phone] 08/16/2021 Office Visit Urology Cm Rhodes MD [address] [address] [place] [address] [phone] 09/06/2021 Office Visit Gastroenterology Angela Herbert, [place] 132 [facility] [place] [address] [phone] Scheduled Orders Name Type Priority Associated Diagnoses Orde r Schedule EKG EKG Routine 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
--- OUTSIDE RECORDS SUMMARY | 2023-06-27 08:03 | External Medical Summary ---
Author Name Unknown Address Unknown Organization K09:[facility] [place] [address] Laboratory Report Ordering Provider Test Date Status SHAY CH 08/08/2021 10:14:26 Final Observation Date Value Abnormality Reference (Units ) Status SYNC LEUKOCYTES IN BLOOD BY AUTOMATED COUNT 08/08/2021 10:14:26 6.23 4.00-10.80 (K/uL) Final Segs 08/08/2021 10:14:26 69.4 40.0-75.0 (%) Final Lymphs % 08/08/2021 10:14:26 18.9 18.0-42.0 (%) Final Monos 08/08/2021 10:14:26 9.5 1.0-11.0 (%) Final Eosinophils 08/08/2021 10:14:26 1.9 0.0-6.0 (%) Final Basos 08/08/2021 10:14:26 0.3 0.0-2.0 (%) Final Absolute Segs 08/08/2021 10:14:26 4.32 1.80-7.70 (K/uL) Final Lymphs, absolute 08/08/2021 10:14:26 1.18 1.00-4.80 (K/ul) Final Monos, Abs 08/08/2021 10:14:26 0.59 0.00-1.10 (K/uL) Final Eos, Abs 08/08/2021 10:14:26 0.12 0.00-0.70 (K/uL) Final Basos, Abs 08/08/2021 10:14:26 0.02 0.00-0.20 (K/uL) Final Performing Location [facility] [place] [place] [address]
--- OUTSIDE RECORDS SUMMARY | 2023-06-27 08:03 | External Medical Summary ---
Author Name Unknown Address Unknown Organization K01:[facility] [address] [place] [address] Laboratory Report Ordering Provider Test Date Status SHAY CH 08/08/2021 10:14:26 Final Observation Date Value Abnormality Reference (Units ) Status Iron 08/08/2021 10:14:26 47 45-176 (ug/dL) Final Iron-binding capacity 08/08/2021 10:14:26 371 250-425 (ug/dL) Final Transferrin Sat % 08/08/2021 10:14:26 13 Below low normal 15-55 (%) Final Performing Location [facility] [address] [place] [address]
--- OUTSIDE RECORDS SUMMARY | 2023-06-27 08:03 | External Medical Summary | Summary of Care ---
Author Name Unknown Organization [place] [address] Care Team Providers Care Ncr Operator Name Role Phone Hortencia Leal PA-C Primary Care Provid er Reason for Visit * Reason Onset Date Comments Other 08/04/2021 Encounter Details Date Type Department Care Team Description 08/04/2021 Telephone General Surgery, [place] [address] [place] [address] Alexander Rodriguez MD [address] [place] [address] Other Allergies Active Allergy Reactions [...] times a day. As needed 0 Active [place]-3 Fatty Acids (FISH OIL) 1000 MG Capsule [...] Addendum Note - Sveta Mobley RN - 08/08/2021 1:57 PM EDT Addended by: SVETA MOBLEY on: 08/08/2021 01:57 PM Modules accepted: Orders * Addendum Note - Sveta Mobley RN [...] Encounter Surgery Alexander Rodriguez MD [address] [place] [address] [phone] 08/10/2021 Surgery Surgery Alexander Rodriguez MD [address] [place] [id number] LAPAROSCOPY WITH BIOPSY 08/16/2021 Office Visit Urology Cm Rhodes MD [address] [facility] [address] [place] [address] 09/06/2021 Office Visit Gastroenterology Angela Herbert CRNP [address] [facility] [place] [address] Scheduled Orders Name Type Priority Associated Diagnoses Orde r Schedule EKG EKG Routine 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
--- OUTSIDE RECORDS SUMMARY | 2023-06-27 08:03 | External Medical Summary | Summary of Care ---
Author Name Unknown Organization [place] [address] Care Team Providers Care Broadcast Chief Engineer Name Role Phone Hortencia Leal PA-C Primary Care Provid er Encounter Details Date Type Department Care Team Description 08/08/2021 Nurse Only Hematology/Oncology [facility] [address] [place] [address] [place], Nurse Hem Onc [facility] 200 [facility] [place] [address] [phone] Allergies Active Allergy Reactions Severity Noted Date [...] times a day. As needed 0 Active [place]-3 Fatty Acids (FISH OIL) 1000 MG Capsule [...] Encounter Surgery Alexander Rodriguez MD [address] [place] [address] [phone] 08/10/2021 Surgery Surgery Alexander Rodriguez MD [address] [place], [place] [address] LAPAROSCOPY WITH BIOPSY 08/16/2021 Office Visit Urology Cm Rhodes MD 27 [facility] [address] [place] [address] 09/06/2021 Office Visit Gastroenterology Angela Herbert CRNP 132 [facility] [place] [address] Health Maintenance Due Date Last Done [...] Documents on File Type Date Recorded Patient Experimental Mechanic Spacecraft Expl anation Advanced Directive Advanced Directive 01/03/2011 [...]
--- OUTSIDE RECORDS SUMMARY | 2023-06-27 08:03 | External Medical Summary | Summary of Care ---
Author Name Unknown Organization [place] [address] Care Team Providers Care Veneer Production Machine Operator Name Role Phone Hortencia Leal PA-C Primary Care Provid er Reason for Visit * Reason Onset Date Comments Other 08/04/2021 Encounter Details Date Type Department Care Team Description 08/04/2021 Telephone General Surgery, [place] [address] [place] [address] Alexander Rodriguez MD [address] [place] [address] Other Allergies Active Allergy Reactions [...] Only Hematology Oncology [place], Nurse Hem Onc [facility] 200 [place] [address] [phone] 08/16/2021 Office Visit Urology Cm Rhodes MD [address] [address] [place] [address] [phone] 09/06/2021 Office Visit Gastroenterology Angela Herbert, [place] 132 [facility] [place] [address] [phone] Scheduled Orders Name Type Priority Associated Diagnoses [...] Documents on File Type Date Recorded Patient Community Coordinator For [employer] Expl anation Advanced Directive Advanced Directive 01/03/2011 [...]
--- OUTSIDE RECORDS SUMMARY | 2023-06-27 08:03 | External Medical Summary ---
Author Name Unknown Address Unknown Organization [id number]:[facility] [place] [address] Laboratory Report Ordering Provider Test Date Status SHAY CH 08/08/2021 10:14:26 Final Observation Date Value Abnormality Reference (Units ) Status WBC, Total 08/08/2021 10:14:26 6.23 4.00-10.8 0 (K/uL) Final RBC 08/08/2021 10:14:26 2.84 Below low normal 4.5 0-5.25 (M/uL) Final Hemoglobin 08/08/2021 10:14:26 8.7 Below low normal 14 .0-16.8 (g/dL) Final HCT 08/08/2021 10:14:26 29.3 Below low normal 40. 0-48.4 (%) Final MCV 08/08/2021 10:14:26 103.2 Above high normal 82 .0-99.5 (fL) Final MCH 08/08/2021 10:14:26 30.6 27.0-34.0 (pg) Final MCHC 08/08/2021 10:14:26 29.7 Below low normal 32. 0-36.0 (g/dL) Final RDW 08/08/2021 10:14:26 16.1 Above high normal 11 .5-15.5 (%) Final Platelets 08/08/2021 10:14:26 229 140-400 (K /uL) Final MPV 08/08/2021 10:14:26 8.9 6.6-11.1 ( fL) Final Performing Location [facility] [place] [address]
--- OUTSIDE RECORDS SUMMARY | 2023-06-27 08:03 | External Medical Summary | Summary of Care ---
Author Name Unknown Organization [place] [address] Care Team Providers Care System Operation Superintendent Name Role Phone Hortencia Leal PA-C Primary Care Provid er Reason for Visit * Reason Onset Date Comments Other 08/04/2021 Encounter Details Date Type Department Care Team Description 08/04/2021 Telephone General Surgery, [place] [address] [place] [address] Alexander Rodriguez MD [address] [place] [address] Other Allergies Active Allergy Reactions [...] times a day. As needed 0 Active [place]-3 Fatty Acids (FISH OIL) 1000 MG Capsule [...] Only Hematology Oncology Maddy, Nurse Hem Onc [facility] 200 [place] [address] [phone] 08/16/2021 Office Visit Urology Cm Rhodes MD [address] [address] [place] [address] [phone] 09/06/2021 Office Visit Gastroenterology Angela Herbert, LYLE [address] [facility] [place] [address] [phone] Scheduled Orders Name Type Priority Associated Diagnoses [...] Documents on File Type Date Recorded Patient Brimming Machine Operator Expl anation Advanced Directive Advanced [...]
--- OUTSIDE RECORDS SUMMARY | 2023-06-27 08:03 | External Medical Summary ---
Author Name Unknown Address Unknown Organization [id number]:[facility] [place] [address] [place] [address] Laboratory Report Ordering Provider Test Date Status SHAY CH 08/08/2021 10:14:26 Final Observation Date Value Abnormality Reference (Units ) Status Ferritin 08/08/2021 10:14:26 54 30-400 (ng /mL) Final Performing Location [facility] - [address] [place] [address]
--- OUTSIDE RECORDS SUMMARY | 2023-06-27 08:04 | External Medical Summary | Summary of Care ---
Author Name Unknown Organization [place] [address] Care Team Providers Care Sterile Processing Technician Name Role Phone Hortencia Leal PA-C Primary Care Provid er Reason for Visit * Reason Comments Multidisciplinary Discussion Encounter Details Date Type Department Care Team Description 08/03/2021 Documentation Hematology Oncology [facility] [place] [address] [place] [address] Sveta Caldwell, MS [address] [place] [address] Allergies Active Allergy Reactions Severity Noted Date Comments Amlodipine 11/02/2020 dizziness Codeine Sulfate Other (Please comment) 10/26/19 11 hyperactivity Hydrochlorothiazide 11/02/2020 hypercalcemia documented as of this encounter (statuses as of 08/03/2021) Medications Medication Sig Dispensed Refills Start Date [...] times a day. As needed 0 Active [place]-3 Fatty Acids (FISH OIL) 1000 MG Capsule [...] Oral Capsule Take by mouth. 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 Austin's case will be presented at the GI multi-disciplinary conference on 08/04/2021. 1. Heath meets NCCN criteria for a cancer genetics evaluation: a. PHx Juan 7 prostate ca i. New dx 2nd primary cancer ii. Fam hx CRC in FDR 2. A referral will be made if Heath is interested in considering this testing. 3. Heath will be scheduled for a telehealth visit to be evaluated by a certified genetic counselor. Sveta Caldwell MS, [facility] 08/03/2021 12:27 PM documented in this encounter Plan of Treatment Upcoming Encounters Date Type Specialty Care Team Description 08/03/2021 Laboratory Laboratory [facility] Lab [facility] [address] [place] [address] [phone] 08/03/2021 Office Visit Hematology Oncology Nik Melo MD 200 [place] [address] [phone] 08/16/2021 Office Visit Urology Cm Rhodes MD [address] [address] 09/06/2021 Office Visit Gastroenterology Angela Herbert CRNP 132 [place] [address] [phone] Health Maintenance Due Date Last Done Comments Pneumococcal Vaccine: 65+ Years (1 of 2 - PPSV23) 12/29/1951 DTaP,Tdap,and Td Vaccines (1 - Tdap) 1964 Zoster Vaccines (1 of 2) 12/29/1995 *DEPRESSION SCREENING,ANNUAL FOR PTS 12 AND OVER 09/29/2016 Influenza Vaccine (FLU shot) (#1) 2021 08/21/2018, 07/14/2017, 07/06/2016, Additional history exists DIABETES SCREEN EVERY 3 YRS-AGE 45 AND ABOVE 01/25/2024 01/24/2021, 11/21/2019, 08/14/2017, Additional history exists COLONOSCOPY-EVERY 3 YRS AGES 18-100 07/15/2024 07/15/2021, 07/15/2021, 04/12/2018, Additional history exists COVID-19 Vaccine Completed 02/14/2021, 01/17/2021 MENINGOCOCCAL (MENACTRA/MENVEO) Aged Out No longer eligible based on patient's age to complete this topic documented as of this encounter Implants Not on filedocumented as of this encounter Advance Directives Documents on File Type Date Recorded Patient Chief Librarian Circulation Department Expl anation Advanced Directive Advanced Directive 01/03/2011 [...]
--- OUTSIDE RECORDS SUMMARY | 2023-06-27 08:04 | External Medical Summary ---
Author Name Unknown Address Unknown Organization K09:[facility] [place] [address] Laboratory Report Ordering Provider Test Date Status SHAY CH 08/03/2021 13:48:57 Final Observation Date Value Abnormality Reference (Units ) Status SYNC LEUKOCYTES IN BLOOD BY AUTOMATED COUNT 08/03/2021 13:48:57 8.31 4.00-10.80 (K/uL) Final Segs 08/03/2021 13:48:57 76.7 Above high normal 40.0-75.0 (%) Final Lymphs % 08/03/2021 13:48:57 13.1 Below low normal 18.0-42.0 (%) Final Monos 08/03/2021 13:48:57 9.1 1.0-11.0 (%) Final Eosinophils 08/03/2021 13:48:57 1.0 0.0-6.0 (%) Final Basos 08/03/2021 13:48:57 0.1 0.0-2.0 (%) Final Absolute Segs 08/03/2021 13:48:57 6.37 1.80-7.70 (K/uL) Final Lymphs, absolute 08/03/2021 13:48:57 1.09 1.00-4.80 (K/ul) Final Monos, Abs 08/03/2021 13:48:57 0.76 0.00-1.10 (K/uL) Final Eos, Abs 08/03/2021 13:48:57 0.08 0.00-0.70 (K/uL) Final Basos, Abs 08/03/2021 13:48:57 0.01 0.00-0.20 (K/uL) Final Performing Location [facility] [place] [address]
--- OUTSIDE RECORDS SUMMARY | 2023-06-27 08:04 | External Medical Summary | Summary of Care ---
Author Name Unknown Organization [place] [address] Care Team Providers Care Travel Agent Name Role Phone Hortencia Leal PA-C Primary Care Provid er Reason for Visit * Reason Onset Date Comments Information 08/03/2021 Fax office notes /labs to Hortencia @ [phone] Encounter Details Date Type Department Care Team Description 08/03/2021 Telephone Hematology/Oncology [facility] 200 [place] [address] Nik Melo MD 200 [facility] [place] [id number] Information (Fax office notes/labs to William... Allergies Active Allergy Reactions Severity Noted Date [...] times a day. As needed 0 Active [place]-3 Fatty Acids (FISH OIL) 1000 MG Capsule [...] Telephone Encounter - Bonny Barker OSA - 08/03/2021 3:10 PM EDT Patient wants all office notes/labs faxed to his primary care PCP: Hortencia Leal [phone] documented in this encounter Plan of Treatment Upcoming Encounters Date Type Specialty Care Team Description 08/08/2021 Nurse Only Hematology Oncology Maddy, Nurse Hem Onc [facility] [address] [place] [address] [phone] 08/16/2021 Office Visit Urology Cm Rhodes MD [address] [address] [place] [phone] 09/06/2021 Office Visit Gastroenterology Angela Herbert CRNP [...] Documents on File Type Date Recorded Patient Data Center Manager Expl anation Advanced Directive Advanced Directive [...]
--- OUTSIDE RECORDS SUMMARY | 2023-06-27 08:04 | External Medical Summary | Summary of Care ---
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 documented as of this encounter (statuses as of 08/04/2021) Immunizations Name Administration Dates Next Due COVID-19 [...] Only Hematology Oncology Maddy, Nurse Hem Onc [facility] [address] [place] [address] [phone] 08/16/2021 Office Visit Urology Cm Rhodes MD [address] [address] 09/06/2021 Office Visit Gastroenterology Angela Herbert CRNP 132 [facility] [place] [address] [phone] Scheduled Referrals Name Type Priority Associated Diagnoses [...] Documents on File Type Date Recorded Patient Weather Strip Mechanic Expl anation Advanced Directive Advanced Directive [...]
--- OUTSIDE RECORDS SUMMARY | 2023-06-27 08:04 | External Medical Summary ---
Author Name Unknown Address Unknown Organization K09:[facility] [place] [address] Laboratory Report Ordering Provider Test Date Status SHAY CH 08/03/2021 13:48:57 Final Observation Date Value Abnormality Reference (Units ) Status WBC, Total 08/03/2021 13:48:57 8.31 4.00-10.8 0 (K/uL) Final RBC 08/03/2021 13:48:57 2.61 Below low normal 4.5 0-5.25 (M/uL) Final Hemoglobin 08/03/2021 13:48:57 8.0 Below low normal 14 .0-16.8 (g/dL) Final HCT 08/03/2021 13:48:57 27.3 Below low normal 40. 0-48.4 (%) Final MCV 08/03/2021 13:48:57 104.6 Above high normal 82 .0-99.5 (fL) Final MCH 08/03/2021 13:48:57 30.7 27.0-34.0 (pg) Final MCHC 08/03/2021 13:48:57 29.3 Below low normal 32. 0-36.0 (g/dL) Final RDW 08/03/2021 13:48:57 16.4 Above high normal 11 .5-15.5 (%) Final Platelets 08/03/2021 13:48:57 276 140-400 (K /uL) Final MPV 08/03/2021 13:48:57 9.0 6.6-11.1 ( fL) Final Performing Location [facility] [place] [address]
--- OUTSIDE RECORDS SUMMARY | 2023-06-27 08:04 | External Medical Summary ---
Author Name Unknown Address Unknown Organization K01:[facility] [place] - [address] [place] [address] Laboratory Report Ordering Provider Test Date Status SHAY CH 08/03/2021 13:48:57 Final Observation Date Value Abnormality Reference (Units ) Status Hep B surface Ag 08/03/2021 13:48:57 Negative Neg ative Final Performing Location [facility] - [address] [place] [address]
--- OUTSIDE RECORDS SUMMARY | 2023-06-27 08:04 | External Medical Summary | Summary of Care ---
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 As needed 0 Active [place]-3 Fatty Acids (FISH OIL) 1000 MG Capsule [...] Hematology Oncology Maddy, Nurse Hem Onc [facility] 200 [facility] [place] [address] [phone] 08/16/2021 Office Visit Urology Cm Rhodes MD [address] [address] 09/06/2021 Office Visit Gastroenterology Angela Herbert CRNP 132 [facility] [place] [address] [phone] Scheduled Referrals Name Type Priority Associated Diagnoses [...] Documents on File Type Date Recorded Patient Signal Intelligence Analyst Expl anation Advanced Directive Advanced Directive [...]
--- OUTSIDE RECORDS SUMMARY | 2023-06-27 08:04 | External Medical Summary | Summary of Care ---
Author Name Unknown Organization [facility] Address [facility] [place] [address] Care Team Providers Care Supervisor Operations Name Role Phone Hortencia Leal PA-C Primary Care Provid er Reason for Visit * Reason Onset Date Comments Precert Future 08/04/2021 carbo/ taxol Encounter Details Date Type Department Care Team Description 08/04/2021 Telephone Hematology/Oncology Treatment, [place] 200 [place] [address] Nik Melo MD 200 [place] [address] [phone] Precert Future (carbo/ taxol) Allergies Active Allergy [...] times a day. As needed 0 Active [place]-3 Fatty Acids (FISH OIL) 1000 MG Capsule [...] of 08/04/2021) Active Problems Problem Noted Date Encounter for [...] to receive weekly carbo/taxol during radiation therapy. [place] plan adjusted. Education visit 08/08/21. Hepatitis labs added to labs drawn 08/03/21. 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 (HCC) Every Week for 10 Occurrences starting 08/04/2021 until 08/04/2022 COMPREHENSIVE METABOLIC PANEL Lab STAT 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 (HCC) Every Week for 10 Occurrences starting 08/04/2021 until 08/04/2022 HEPATITIS B SURFACE ANTIBODY Lab Routine 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 (HCC) Encounter for screening for viral disease Expected: 08/04/2021, Expires: 08/04/2022 HEPATITIS B SURFACE ANTIGEN Lab Routine 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
--- OUTSIDE RECORDS SUMMARY | 2023-06-27 08:04 | External Medical Summary | Summary of Care ---
Author Name Unknown Organization [place] [address] Care Team Providers Care Software Product Specialist Name Role Phone Hortencia Leal PA-C Primary Care Provid er Reason for Visit * Reason Onset Date Comments Other 08/04/2021 Encounter Details Date Type Department Care Team Description 08/04/2021 Telephone General Surgery, [place] [address] [place] [address] Alexander Rodriguez MD [address] [place] [address] Other Allergies Active Allergy Reactions [...] encounter Miscellaneous Notes * Telephone Encounter - Sveta Salas RN - 08/04/2021 2:57 PM EDT LMOMtc. Clinic number provided. 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 Please call him back at, . documented in this encounter Plan of Treatment Upcoming Encounters Date Type Specialty Care Team Description 08/08/2021 Nurse Only Hematology Oncology [place], Nurse Hem Onc [facility] 200 [place] [address] [phone] 08/16/2021 Office Visit Urology Cm Rhodes MD [address] [address] 09/06/2021 Office Visit [facility]enterology [facility] Herbert [facility] [address] Health Maintenance Due Date Last Done [...] Documents on File Type Date Recorded Patient Wellness Coordinator Expl anation Advanced Directive Advanced Directive [...]
--- OUTSIDE RECORDS SUMMARY | 2023-06-27 08:04 | External Medical Summary | Summary of Care ---
Author Name Unknown Organization [place] [address] Care Team Providers Care Underwriter Solicitation Director Name Role Phone Hortencia Leal PA-C Primary Care Provid er Reason for Visit * Reason Comments Follow Up 6m Encounter Details Date Type Department Care Team Description 08/03/2021 Office Visit Hematology/Oncology [facility] 200 [facility] [place] [address] Nik Melo MD 200 [facility] [place] [address] [phone] Need for pneumococcal vaccination*; Malignant neoplasm of [...] times a day. As needed 0 Active [place]-3 Fatty Acids (FISH OIL) 1000 MG Capsule [...] Patient, Epic record. 08/03/2021 2:46 PM Heath Rj [place] [id number] 75 year old Hortencia Leal PA-C Self Patient Encounter: HEMATOLOGY/ONCOLOGY [facility] Reason for consult: Esophageal cancer some HPI: 75-year-old male with past medical history [...] N2 disease. Patient was seen by Dr. Rordiguez on 08/01/2021 and he recommend neoadjuvant chemoradiation. [...] 0.6 cm HISTOLOGIC TYPE: Adenocarcinoma HISTOLOGIC GRADE ([place]): Primary pattern is: Grade 3: single acini of variable size and separation, cribriform and papillarypatterns Secondary pattern is: Grade 3: single acini of variable size and separation, cribriform and papillary patterns Juan Score (primary + secondary) = 5-6: Moderately well differentiated Nodule #2, involves: right lateral apex and right apex Dimensions: 0.9 x 0.3 x 0.9 cm HISTOLOGIC TYPE: Adenocarcinoma HISTOLOGIC GRADE ([place]): Primary pattern is: Grade 3: single acini [...] and fused epithelium, can show clear cells [place] Score (primary + secondary) = 7: Moderately poorly differentiated [place] Score (primary + secondary) = 8-10: Poorly [...] TABS Take 12.5 mg by mouth daily. Anthony-3 Fatty Acids (FISH OIL) 1000 MG Capsule [...] file Gets together: Not on file Attends confucianist service: Not on file Active member of [...] EDT START ON PATHWAY REGIMEN - Gastroesophageal [id number]: Carboplatin + Paclitaxel (2/50) Weekly (x 5-6 [...] esophageal orjunctional cancer. N Engl J Med. 2012;366(01):7734-89. URL: http://www.ncbi.nlm.nih.gov/pubmed/44161149 Patient Characteristics: Esophageal & GE Junction, Adenocarcinoma, [...] cM0 Treatment Details: START ON PATHWAY REGIMEN [id number]: Carboplatin + Paclitaxel (2/50) Weekly (x 5-6 [...] esophageal orjunctional cancer. N Engl J Med. 2012;366(22):2074-28. URL: http://www.ncbi.nlm.nih.gov/pubmed/58372288 documented in this encounter Plan of Treatment Upcoming Encounters Date Type Specialty Care Team Description 08/08/2021 Nurse Only Hematology Oncology [place], Nurse Hem Onc [place] [address] [place] [address] [phone] 08/16/2021 Office Visit [facility]m [facility] [address] [place] [address] 09/06/2021 Office Visit Gastroenterology Angela Herbert CRNP [address] [place] [address] Health Maintenance Due Date Last [...] specified prophylactic vaccination against single bacterial disease documented in this encounter Advance Directives Documents on File Type Date Recorded Patient Filling Station Equipment Mechanic Expl anation Advanced Directive Advanced Directive [...]
--- OUTSIDE RECORDS SUMMARY | 2023-06-27 08:04 | External Medical Summary ---
Author Name Unknown Address Unknown Organization K01:[facility] [place] [address] [address] [place] [address] Laboratory Report Ordering Provider Test Date Status SHAY CH 08/03/2021 13:48:57 Final Observation Date Value Abnormality Reference (Units) Status Hepatitis B virus surface Ab [Units/volume] in Serum or Plasma by Immunoassay 08/03/2021 13:48:57 <3.5 (mIU/mL) Final Hepatitis B virus surface Ab [Presence] in Serum by Immunoassay 08/03/2021 13:48:57 Negative Final HEPATITIS B SURFACE ANTIBODY, INTERPRETATION 08/03/2021 13:48:57 NOT immune to Hepatitis B Virus Final Performing Location LAB[facility]ORY [facility] [place] - [facility] [place] [address]
--- OUTSIDE RECORDS SUMMARY | 2023-06-27 08:05 | External Medical Summary | Summary of Care ---
Author Name Unknown Organization [facility] Address [facility] [place] [address] Care Team Providers Care Overedge Sewer Name Role Phone Hortencia Leal PA-C Primary Care Provid er Encounter Details Date Type Department Care Team Description 07/20/2021 Telephone Gastroenterology, [facility] [address] [facility] [place] [address] Angela Herbert CRNP 132 [facility] [place] [address] [phone] Allergies Active Allergy Reactions Severity Noted Date Comments Amlodipine 11/02/2020 dizziness Codeine Sulfate Other (Please comment) 10/26/19 11 hyperactivity Hydrochlorothiazide 11/02/2020 hypercalcemia documented as of this encounter (statuses as of 07/25/2021) Medications Medication Sig Dispensed Refills Start Date End Date Status LISINOPRIL 20 MG PO TABS one tab daily 0 Active METFORMIN ER 500 MG PO TB24 two tabs twice daily 0 Acti ve VITAMIN B-12 1000 MCG PO TABS Take 500 mcg by mouth. 0 Active ATORVASTATIN CALCIUM 20 MG PO TABS Take 40 mg by mouth. 0 Acti ve Cholecalciferol (VITAMIN D-3) 1000 units Capsule Take 1,000 Units by mouth daily. 0 Active Aspirin 81 MG Tablet Take 81 mg by mouth daily. 0 Active meclizine (ANTIVERT) 12.5 MG Tablet Take 12.5 mg by mouth 2 times a day. As needed 0 Active Mcclellan-3 Fatty Acids (FISH OIL) 1000 MG Capsule Take 1,000 mg by mouth daily. 2 capsules by mouth twice daily 0 Active potassium citrate ER (UROCIT-K) 10 MEQ (1080 MG) TBCRIndications:Ki dney stones,Kidney stone Take 1 Tab by mouth 3 times a day. With meals 270 Tab 3 05/02/2018 Active Alogliptin Benzoate 12.5 MG TABS Take 12.5 mg by mouth daily. 0 Active Acetaminophen 325 MG Oral Tablet (Tylenol) Take 325 mg by mouth every 6 hours as needed. 0 Active Ferrous Sulfate 325 (65 Fe) MG Oral Tablet (Feosol) TAKE ONE TABLET BY MOUTH EVERY 48 HOURS SAME IRON 0 04/01/2021 Active Iron Sucrose 20 MG/ML Intravenous Solution (Venofer) Administer 200 mg intravenously once for 1 dose. 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 07/21/2021 Prostate cancer 12/31/2013 Other ventral hernia without mention of obstruction or gangrene 05/03/2012 documented as of this encounter (statuses as of 07/25/2021) Resolved Problems Problem Noted Date Resolved Date Elevated prostate specific antigen (PSA) 011 12/31/2013 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 documented as of this encounter (statuses as of 07/25/2021) Immunizations Name Administration Dates Next Due COVID-19 [...] Telephone Encounter - Steffi Zapata OSA - 07/22/2021 8:53 AM EDT Called and spoke to patient and he is scheduled for Venofer for 07/26/21. Done. * Telephone Encounter - Venita Byers RN - 07/22/2021 7:58 AM EDT [place] signed. Scheduling: please call patient to schedule 1.5 hour appt on 503 schedule "200mg venofer" (Alexy). Thanks! * Telephone Encounter - Lakeisha Cortez RN - 07/21/2021 2:45 PM EDT Confirmed with Srinivas Daniels RN- pt is to only get one dose of venofer at this time. [place] plan built, routed for signature. Once signed we can schedule patient. PA not needed. * Telephone Encounter - Srinivas Daniels RN - 07/21/2021 1:53 PM EDT Signed Prescriptions: Disp Refills Iron Sucrose 20 MG/ML Intravenous Solution*10 mL 0 Sig: Administer 200 mg intravenously once for 1 dose.Authorizing Provider: ANGELA HERBERT * Telephone Encounter - Srinivas Daniels RN - 07/21/2021 1:[address] Tracey, patient has private insurance other than the [facility]. NSCP completed. Hem/Onc please schedule patient for 1 time IV Venofer. * Telephone Encounter - Felicity Zapata RN - 07/20/2021 2:31 PM EDT I left a message at PCP's office to determine if they would manage this or if it can be done through our infusion center. * Telephone Encounter - Angela Herbert CRNP - 07/20/2021 10:22 AM EDT Message received from Dr. Tracey to arrange IV iron given low iron, ferritin Called pt regarding this Agreeable to IV iron Please help arrange 3 sessions spaced 1 week apart Does this need to be through the [facility] since he is a [facility] pt? LYLE Velazquez 07/20/2021 11:55 AM documented in this encounter Plan of Treatment Upcoming Encounters Date Type Specialty Care Team Description 07/26/2021 Hem/Onc Treatment Hematology Oncology [place], Chair 4 Hem Onc Scenery 200 [facility] [place] [address] [phone] 07/27/2021 Imaging Radiology 07/28/2021 Office Visit General Surgery Alexander Rodriguez MD [address] [place] [address] [phone] 08/03/2021 Laboratory Laboratory [facility] 200 [facility] [place] [address] [phone] 08/03/2021 Office Visit Hematology Oncology Nik Melo MD [address] [place] [address] [phone] 08/16/2021 Office Visit Urology Cm Rhodes MD [address] [facility] [address] [place] [address] 09/06/2021 Office Visit Gastroenterology Angela Herbert CRNP 132 [place] [address] [phone] Health Maintenance Due Date Last Done Comments Pneumococcal Vaccine: 65+ Years (1 of 2 - PPSV23) 12/29/1951 DTaP,Tdap,and Td Vaccines (1 - Tdap) 1964 Zoster Vaccines (1 of 2) 12/29/1995 *DEPRESSION SCREENING,ANNUAL FOR PTS 12 AND OVER 09/29/2016 Influenza Vaccine (FLU shot) (#1) 2021 08/21/2018, 07/26/2015, 10/22/2010 DIABETES SCREEN EVERY 3 YRS-AGE 45 AND [...] Documents on File Type Date Recorded Patient 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
--- OUTSIDE RECORDS SUMMARY | 2023-06-27 08:05 | External Medical Summary ---
Author Name Unknown Address Unknown Organization K09:[facility] [place] [address] Laboratory Report Ordering Provider Test Date Status SHAY CH 08/03/2021 13:48:57 Final Observation Date Value Abnormality Reference (Units ) Status BUN 08/03/2021 13:48:57 35 Above high normal 6-20 (mg/dL) Final Creatinine 08/03/2021 13:48:57 2.3 Above high normal 0.6-1.2 (mg/dL) Final Glomerular filtration rate/1.73 sq M.predicted [Volume Rate/Area] in Serum, Plasma or Blood by Creatinine-based formula (CKD-EPI) 08/03/2021 13:48:57 26.9 Below low normal >=60.0 (mL/min) Final Performing Location [facility] [place] [address]
--- OUTSIDE RECORDS SUMMARY | 2023-06-27 08:05 | External Medical Summary | Summary of Care ---
Author Name Unknown Organization [place] [address] Care Team Providers Care Continuous Miner Operator Name Role Phone Hortencia Leal PA-C Primary Care Provid er Encounter Details Date Type Department Care Team Description 07/25/2021 Orders Only Outcomes Research Department [address] [place] [address] [place] Harrell CHRA My[facility] Research Other*[id number] Allergies Active Allergy Reactions Severity Noted Date Comments Amlodipine 11/02/2020 dizziness Codeine Sulfate Other (Please comment) 10/26/19 11 hyperactivity Hydrochlorothiazide 11/02/2020 hypercalcemia documented as of this encounter (statuses as of 07/25/2021) Medications Medication Sig Dispensed Refills Start Date End Date Status LISINOPRIL 20 MG PO TABS one tab daily 0 Active METFORMIN ER 500 MG PO TB24 two tabs twice daily 0 Active VITAMIN B-12 1000 MCG PO [...] times a day. As needed 0 Active Ringwood-3 Fatty Acids (FISH OIL) 1000 MG Capsule Take 1,000 mg by mouth daily. 2 capsules by mouth twice daily 0 Active potassium citrate ER (UROCIT-K) 10 MEQ (1080 MG) TBCRIndications:Kidne y stones,Kidney stone Take 1 Tab by mouth [...] 48 HOURS SAME IRON 0 04/01/2021 Active documented as of this encounter (statuses [...] Encounters Date Type Specialty Care Team Description 1 Hem/Onc Treatment Hematology Oncology [place], Chair 4 Hem Onc Scenery [address] [place] [address] 1 Imaging Radiology 1 Office Visit General Surgery Alexander Rodriguez MD [address] [place] [address] 1 Hospital Encounter Endoscopy Brendan Gomez MD [address] [place] [address] [phone] 1 Surgery Endoscopy Brendan Gomez MD 132 [facility] [place] [address] [phone] ESOPHAGOGASTRODUODENOSCOPY (EGD), FLEXIBLE, TRANSORAL, ENDOSCOPIC ULTRASOUND 1 Laboratory Laboratory [facility] [address] [place] [address] [phone] 1 Office Visit Hematology Oncology Nik Melo MD 200 [place], [place] [id number] 1 Office Visit Urology Cm Rhodes MD [address] [address] 1 Office Visit Gastroenterology Angela Iglesias i, CRNP 132 [place] [address] [phone] Scheduled Orders Name Type Priority Associated Diagnoses Orde r Schedule MYCODE SUBSEQUENT ADULT Lab Routine MyCode Research Other*[id number] Every 6 Months for 2 Occurrences starting 07/25/2021 until 08/14/2022 Health Maintenance Due Date Last Done Comments [...] this encounter Visit Diagnoses Diagnosis My[facility] Research Other*[id number] Malignant neoplasm of overlapping sites of stomach (HCC) Malignant neoplasm of other specified sites of stomach documented in this encounter Advance Directives Documents on File Type Date Recorded Patient Senior Clinical Data Manager Expl anation Advanced Directive Advanced Directive [...]
--- OUTSIDE RECORDS SUMMARY | 2023-06-27 08:05 | External Medical Summary | Summary of Care ---
Author Name Unknown Organization [place] [address] Care Team Providers Care Pearl Digger Name Role Phone Hortencia Leal PA-C Primary Care Provid er Reason for Visit * Reason Comments NEW PATIENT Encounter Details Date Type Department Care Team Description 07/28/2021 Office Visit General Surgery, [place] [address] [place], [place] [id number] Alexander Rodriguez MD [address] [place], [place] [id number] Pre-operative examination* Allergies Active Allergy Reactions Severity Noted Date Comments Amlodipine 11/02/2020 dizziness Codeine Sulfate Other (Please comment) 10/26/19 11 hyperactivity Hydrochlorothiazide 11/02/2020 hypercalcemia documented as of this encounter (statuses as of 08/02/2021) Medications Medication Sig Dispensed Refills Start Date [...] times a day. As needed 0 Active Raymond-3 Fatty Acids (FISH OIL) 1000 MG Capsule [...] Oral Capsule Take by mouth. 0 Active potassium citrate ER (UROCIT-K) 10 MEQ (1080 MG) TBCRIndications:K idney stones,Kidney stone Take 1 Tab by mouth 3 times a day. 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 07/21/2021 Prostate cancer 12/31/2013 Other ventral hernia without mention of obstruction or gangrene 05/03/2012 documented as of this encounter (statuses as of 08/02/2021) Resolved Problems Problem Noted Date Resolved Date Elevated prostate specific antigen (PSA) 011 12/31/2013 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 documented as of this encounter (statuses as of 08/02/2021) Immunizations Name Administration Dates Next Due COVID-19 [...] Sign Reading Time Taken Comments Blood Pressure 118/60 07/28/2021 12:24 PM EDT Pulse 89 07/28/2021 12:24 PM EDT Temperature 36.3 C (97.3 F) 07/28/2021 1 2:24 PM EDT Respiratory Rate 20 07/28/2021 12:2 4 PM EDT Oxygen Saturation - - Inhaled Oxygen Concentration - - Weight 84.3 kg (185 lb 12.8 oz) 021 12:24 PM EDT Height 163.6 cm (5' 4.4") 07/28/2021 12 :24 PM EDT Body Mass Index 31.5 07/28/2021 12:24 PM EDT documented in this encounter Progress Notes * Alexander Rodriguez MD - 08/01/2021 12:30 PM EDT SURGICAL ONCOLOGY CONSULTATION [place] DATE: 07/28/2021 Referring Physician: 1. Hortencia Leal PA-C Primary Care Physician: Hortencia Leal PA-C CHIEF COMPLAINT: Chief Complaint Patient presents with NEW PATIENT HISTORY OF PRESENT ILLNESS: I was asked to see Heath Austin by Hortencia Leal PA-C for esophageal cancer. He is a 75 year old, male with a history of : Esophageal cancer with growth into the stomach PATH: A. Stomach, antrum, biopsies: Reactive gastropathy/chemical gastritis No specialized intestinal metaplasia or dysplasia is seen B. Stomach, body, biopsies: Invasive adenocarcinoma, intestinal-type (see microscopic findings) C. Stomach, cardia, biopsies: Invasive adenocarcinoma, intestinal-type (see microscopic findings) D. Esophagus, biopsies: Invasive adenocarcinoma, intestinal-type (see microscopic findings) E. Colon, biopsies: Fragments of hyperplastic polyp IMPRESSION IMPRESSION 1. Intensely FDG avid wall thickening of the distal esophagus, gastric fundus, and lesser gastric curvature compatible with biopsy-proven malignancy. 2. Multiple mildly FDG avid prominent right gastric cardiac and lesser curvature lymph nodes are indeterminate (max SUV 3.9). 3. No evidence of distant metastatic disease. PAST MEDICAL HISTORY: Patient Active Problem List Diagnosis Code Other ventral hernia without mention of obstruction or gangrene K43.9 Prostate cancer (HCC) C61 Malignant neoplasm of overlapping sites of stomach (HCC) C16.8 Past Medical History: Diagnosis Date Actinic keratosis [...] unguium Ventral hernia without obstruction or gangrene MEDICATIONS: Current Outpatient Medications Medication Sig Dispense Refill Vitamin C 500 MG Oral Capsule Take by mouth. Ferrous Sulfate 325 (65 Fe) MG Oral Tablet (Feosol) TAKE ONE TABLET BY MOUTH EVERY 48 HOURS SAME ASIRON Acetaminophen 325 MG Oral Tablet (Tylenol) Take 325 mg by mouth every 6 hours as needed. Alogliptin Benzoate 12.5 MG TABS Take 12.5 mg by mouth daily. Raymond-3 Fatty Acids (FISH OIL) 1000 MG Capsule [...] mg by mouth 2 times a day. ALLERGIES TO MEDICATIONS: Review of patient's allergies indicates: Allergen Reactions Amlodipine dizziness Codeine Sulfate Other (Please comment) hyperactivity Hctz [Hydrochlorothiazide] hypercalcemia PAST SURGICAL HISTORY: Past Surgical History: Procedure Laterality Date COLONOSCOPY COLONOSCOPY, DIAGNOSTIC (RECTUM) 03/07/2013 path shows adenomatous polyp repeat in 5 years COLONOSCOPY, DIAGNOSTIC (RECTUM) 04/12/2018 adenomatous polyps, diverticulosis, repeat 3 yrs/COLONOSCOPY FLEXIBLE PROXIMAL DIAGNOSTIC performedby Roz Tracey MD at ENDOSCOPY [facility] COLONOSCOPY, DIAGNOSTIC (RECTUM) 07/15/2021 COLONOSCOPY FLEXIBLE PROXIMAL DIAGNOSTIC performed by Roz Tracey MD at ENDOSCOPY [facility] EGD, FLEXIBLE, DIAGNOSTIC 07/15/2021 ESOPHAGOGASTRODUODENOSCOPY (EGD), FLEXIBLE, TRANSORAL, DIAGNOSTIC performed by Roz Tracey MD at ENDOSCOPY [facility] KNEE ARTHROSCOPY, DIAGNOSTIC 1989 Knee Arthroscopy right NEEDLE/PUNCH BIOPSY OF PROSTATE 01/05/2011 BIOPSY PROSTATE NEEDLE performed by EYAD LANDRUM at [facility] PROSTATECTOMY, RETROPUBIC RADICAL, LAP 10/30/2011 ROBOTIC LAPAROSCOPIC PROSTATECTOMY RETROPUBIC RADICAL performed by EYAD LANDRUM at OR [facility] REMOVAL OF TONSILS, UNDER AGE 12 Tonsillectomy REPAIR INITIAL INCISIONAL HERNIA 04/18/2012 Laparoscopic ventral hernia repair with 4 x [address] Adams 04/18/12 US ECHO TRANSRECTAL/PROSTATE 01/05/2011 ULTRASOUND TRANSRECTAL performed by EYAD LANDRUM at OR [facility] FAMILY HISTORY: Family History Problem Relation Age of Onset Colon cancer Father SOCIAL HISTORY: Social History Socioeconomic History Marital status: Spouse [...] file Gets together: Not on file Attends hoahaoism service: Not on file Active member of [...] Use Never User Vaping/E-Cigarette Substances Vaping/E-Cigarette Devices PHYSICAL EXAMINATION: BP 118/60 | Pulse 89 | Temp 36.3 C (97.3 F) (Tympanic) | Resp 20 | Ht 1.636 m (5' 4.4") | Wt 84.3 kg (185 lb 12.8 oz) | BMI 31.50 kg/m | BSA 1.96 m Constitutional/Additional VS: Pulse regular and Normal respiration pattern Constitutional/General: Appears well and No acute distress Head and Face: Head is normocephalic, No masses, lesions, tenderness or abnormalities noted, Face normal Eyes: Within normal limits:, Conjunctiva are pink and non-injected, sclera clear, pupils are equal,extra-ocular movements are full, External ears normal, Nose:no epistaxis, no purulent discharge, nomucosal edema or erythema, Throat without lesions, No intraoral mucosal lesions, tongue midline with full mobility Neck: neck non-tender with full ROM, no cervical adenopathy, no JVD noted Lungs/Respiratory: good lung volumes, diaphragmatic excursion is symetric and otherwise negative Cardiac Exam/Cardiovascular Exam: regular rate & rhythm, No JVD Abdomen/GI exam: abdomen soft Skin: complete skin exam not performed, but no obvious lesions meeting ABCDE criteria Hematologic/Lymphatic: There is no axillary adenopathy noted. There is no cervical adenopathy noted. There is no supraclavicular adenopathy noted. There is no petechiae or bruising. Psychiatric Exam: mental status is alert and oriented, affect is normal, thoughts are ordered, appropriate questions IMPRESSION and PLAN: Esophageal cancer with significant stomach involvement - EUS pending - neoadjuvant therapy - will possibly need colonic interposition based on final response to chemoXRT Alexander Rodriguez MD bracelet former Section Head, Surgical Oncology and Endocrine Surgery [facility] [address] [place] [address] Office: [phone] [email or web address] * Justyn Odom MD - 07/28/2021 12:30 PM EDT General Surgery History & Physical Exam Heath Austin [id number] 07/28/2021 Chief Complaint: New esophageal adenocarcinoma History of Present Illness: Heath Austin is a 75 year old male who presents with new diagnosis of esophageal cancer with extensive involvement of the stomach. He had a colonoscopy and upper GI endoscopy on 07/15 to evaluate for anemia, where he was found to have a mass involving the distal esophagus and stomach. Biopsy showed adenocarcinoma. He had a PET CT last week which showed some lymph nodes of the He is scheduled for an EUS next week for further evaluation. BMI: Body mass index is 31.4 kg/m. Relevant Medical History: Adjustment disorder, prostate cancer, CKD, DM2, HTN, DLD, p Relevant Surgical History: prostatectomy (2010), laparoscopic ventral hernia repair (2011) Social Hx: no tobacco History of bleeding disorders / blood clots: None Anticoagulation status: ASA81 Past Medical History: Diagnosis Date Actinic keratosis [...] DIAGNOSTIC performedby Roz Tracey MD at ENDOSCOPY [facility] COLONOSCOPY, DIAGNOSTIC (RECTUM) 07/15/2021 COLONOSCOPY FLEXIBLE PROXIMAL DIAGNOSTIC performed by Roz Tracey MD at [facility]OSCOPY [facility] EGD, FLEXIBLE, DIAGNOSTIC 07/15/2021 ESOPHAGOGASTRODUODENOSCOPY (EGD), FLEXIBLE, TRANSORAL, DIAGNOSTIC performed by Roz Tracey MD at [facility]OSCOPY [facility] KNEE ARTHROSCOPY, DIAGNOSTIC 1989 Knee Arthroscopy right NEEDLE/PUNCH BIOPSY OF PROSTATE 01/05/2011 BIOPSY PROSTATE NEEDLE performed by EYAD LANDRUM at [facility] PROSTATECTOMY, RETROPUBIC RADICAL, LAP 10/30/2011 ROBOTIC LAPAROSCOPIC PROSTATECTOMY RETROPUBIC RADICAL performed by EYAD LANDRUM at OR [facility] REMOVAL OF TONSILS, UNDER AGE 12 Tonsillectomy REPAIR INITIAL INCISIONAL HERNIA 04/18/2012 Laparoscopic ventral hernia repair with 4 x [address] Adams 04/18/12 US ECHO TRANSRECTAL/PROSTATE 01/05/2011 ULTRASOUND TRANSRECTAL performed by EYAD LANDRUM at OR [facility] Family History Problem Relation Age of Onset Colon cancer Father Allergies as of 07/28/2021 - Reviewed 07/28/2021 Allergen Reaction Noted Amlodipine 11/02/2020 Codeine sulfate Other (Please comment) 10/26/2010 Hctz [hydrochlorothiazide] 11/02/2020 Current Outpatient Medications Medication Sig Dispense Refill Vitamin C 500 MG Oral Capsule Take by mouth. Ferrous Sulfate 325 (65 Fe) MG Oral Tablet (Feosol) TAKE ONE TABLET BY MOUTH EVERY 48 HOURS SAME ASIRON Acetaminophen 325 MG Oral Tablet (Tylenol) Take 325 mg by mouth every 6 hours as needed. Alogliptin Benzoate 12.5 MG TABS Take 12.5 mg by mouth daily. potassium citrate ER (UROCIT-K) 10 MEQ (1080 MG) TBCR Take 1 Tab by mouth 3 times a day. With [id number] Tab 3 Raymond-3 Fatty Acids (FISH OIL) 1000 MG Capsule [...] file Gets together: Not on file Attends hoahaoism service: Not on file Active member of [...] Use Never User Vaping/E-Cigarette Substances Vaping/E-Cigarette Devices REVIEW OF SYSTEMS I have performed a complete 10-system review of symptoms, including: Consitutional, Eyes, ENT, Cardiovascular, Respiratory, Gastrointestinal, Musculoskeletal, Skin, Neurological, & Hematologic/Lymphatic. All positives noted in HPI, otherwise negative. PHYSICAL EXAM: Wt 84.3 kg (185 lb 12.8 oz) | BMI 31.40 kg/m | BSA 1.96 m Imagin05/24/2021 CT Chest/Abd/Pelvis No evidence of acute abnormality involving the abdomen pelvis 07/27/[address] IMPRESSION 1. Intensely FDG avid wall thickening of the distal esophagus, gastric fundus, and lesser gastric curvature compatible with biopsy-proven malignancy. 2. Multiple mildly FDG avid prominent right gastric cardiac and lesser curvature lymph nodes are indeterminate (max SUV 3.9). 3. No evidence of distant metastatic disease. 07/15/2021 Pathology: A. Stomach, antrum, biopsies: Reactive gastropathy/chemical gastritis No specialized intestinal metaplasia or dysplasia is seen B. Stomach, body, biopsies: Invasive adenocarcinoma, intestinal-type (see microscopic findings) C. Stomach, cardia, biopsies: Invasive adenocarcinoma, intestinal-type (see microscopic findings) D. Esophagus, biopsies: Invasive adenocarcinoma, intestinal-type (see microscopic findings) E. Colon, biopsies: Fragments of hyperplastic polyp Impression: Heath M Norman is a 75 year old male with esophageal adenocarcinoma extending to a significant portion of the stomach. Patient will need to be discussed at [facility] for neoadjuvant chemotherapy and radiation prior to surgical resection. Justyn Odom MD 07/28/2021 12:30 PM Attending: Dr. Rodriguez documented in this encounter Plan of Treatment Upcoming Encounters Date Type Specialty Care Team Description 08/03/2021 Laboratory Laboratory [facility] 200 [place] [address] [phone] 08/03/2021 Office Visit Hematology Oncology Nik Melo MD 200 [place] [address] [phone] 08/16/2021 Office Visit Urology Cm Rhodes MD 27 [facility] [address] [place] [address] 09/06/2021 Office Visit Gastroenterology Angela Herbert CRNP [address] [place] [address] Health Maintenance Due Date Last [...] as of this encounter Visit Diagnoses Diagnosis Pre-operative examination- Primary Preoperative examination, unspecified documented in this encounter Advance Directives Documents on File Type Date Recorded Patient Railroad Switchman Expl anation Advanced Directive Advanced Directive 01/03/2011 [...]
--- OUTSIDE RECORDS SUMMARY | 2023-06-27 08:05 | External Medical Summary ---
Author Name Unknown Address Unknown Organization K01:[facility] - [address] [place] [id number] Laboratory Report Ordering Provider Test Date Status SHAY CH 08/03/2021 13:48:57 Final Observation Date Value Abnormality Reference (Units ) Status PSA 08/03/2021 13:48:57 <0.02 <4.10 (ng/ mL) Final Performing Location [facility] - [address] [place] [address]
--- OUTSIDE RECORDS SUMMARY | 2023-06-27 08:05 | External Medical Summary | Summary of Care ---
Author Name Unknown Organization [facility] Address [facility] [place] [address] Care Team Providers Care Fishing Tackle Repairer Name Role Phone Hortencia Leal PA-C Primary Care Provid er Encounter Details Date Type Department Care Team Description 07/20/2021 Telephone Gastroenterology, Health system [address] [facility] [place] [address] Angela Herbert CRNP [address] [facility] [place] [address] [phone] Allergies Active Allergy Reactions Severity Noted Date Comments Amlodipine 11/02/2020 dizziness Codeine Sulfate Other (Please comment) 10/26/19 11 hyperactivity Hydrochlorothiazide 11/02/2020 hypercalcemia documented as of this encounter (statuses as of 07/22/2021) Medications Medication Sig Dispensed Refills Start Date [...] times a day. 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 Scheduling: please call patient to schedule 1.5 hour appt on 503 schedule "200mg venofer" (Alexy). Thanks! * Telephone Encounter - Lakeisha Cortez RN - 07/21/2021 2:45 PM EDT Confirmed with Srinivas Daniels RN- pt is to only get one dose of venofer at this time. [place] plan built, routed for signature. Once signed [...] Encounters Date Type Specialty Care Team Description 07/27/2021 Imaging Radiology 07/28/2021 Office Visit General Surgery Alexander Rodriguez MD [address] [place] [address] [phone] 08/03/2021 Laboratory Laboratory [facility] 200 [place] [address] [phone] 08/03/2021 Office Visit Hematology Oncology Nik Melo MD 200 [place] [address] [phone] 08/16/2021 Office Visit Urology Cm Rhodes MD [address] [address] 09/06/2021 Office Visit Gastroenterology Angela Herbert CRNP 132 [place] [address] [phone] Health Maintenance Due Date Last Done Comments [...] on File Type Date Recorded Patient Primary Therapist Expl anation Advanced Directive Advanced Directive 01/03/2011 [...]
--- OUTSIDE RECORDS SUMMARY | 2023-06-27 08:05 | External Medical Summary | Summary of Care ---
Author Name Unknown Organization [facility] Address [facility] [place] [address] Care Team Providers Care Administrative Personal Assistant Name Role Phone Hortencia Leal PA-C Primary Care Provid er Encounter Details Date Type Department Care Team Description 07/20/2021 Telephone Gastroenterology, [facility] 132 [facility] [place] [address] Angela Herbert CRNP 132 [facility] [place] [address] [phone] Allergies Active Allergy Reactions Severity Noted Date Comments Amlodipine 11/02/2020 dizziness Codeine Sulfate Other (Please comment) 10/26/19 11 hyperactivity Hydrochlorothiazide 11/02/2020 hypercalcemia documented as of this encounter (statuses as of 07/21/2021) Medications Medication Sig Dispensed Refills Start Date [...] times a day. 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 [place] plan built, routed for signature. Once signed [...] General Surgery Alexander Rodriguez MD [address] [place] [address] [phone] 08/03/2021 Laboratory Laboratory [facility] 200 [place] [address] [phone] 08/03/2021 Office Visit Hematology Oncology Nik Melo MD 200 [place] [address] [phone] 08/16/2021 Office Visit Urology Cm Rhodes MD [address] [address] 09/06/2021 Office Visit Gastroenterology Angela Herbert CRNP 132 [place] [address] [phone] Health Maintenance Due Date Last Done Comments [...] File Type Date Recorded Patient Real Estate Representative Expl anation Advanced Directive Advanced Directive [...]
--- OUTSIDE RECORDS SUMMARY | 2023-06-27 08:05 | External Medical Summary | Summary of Care ---
Author Name Unknown Organization [facility] Address [facility] [place] [address] Care Team Providers Care Line Out Worker Name Role Phone Hortencia Leal PA-C Primary Care Provid er Encounter Details Date Type Department Care Team Description 07/20/2021 Telephone Gastroenterology, [facility] 132 [facility] [place] [address] Angela Herbert CRNP 132 [facility] [place] [address] [phone] Allergies Active Allergy Reactions Severity Noted Date [...] times a day. As needed 0 Active [place]-3 Fatty Acids (FISH OIL) 1000 MG Capsule [...] Byers RN - 07/22/2021 7:58 AM EDT [place] signed. Scheduling: please call patient to schedule 1.5 hour appt on 503 schedule "200mg venofer" (Alexy). Thanks! * Telephone Encounter - Lakeisha Cortez RN - 07/21/2021 2:45 PM EDT Confirmed with Srinivas Daniels RN- pt is to only get one dose of venofer at this time. [place] plan built, routed for signature. Once signed [...] Team Description 07/26/2021 Hem/Onc Treatment Hematology Oncology [place], Chair 4 Hem Onc Scenery 200 [facility] [place] [address] [phone] 07/27/2021 Imaging Radiology 07/28/2021 Office Visit General Surgery Alexander Rodriguez MD [address] [place] [address] [phone] 08/03/2021 Laboratory Laboratory [facility] 200 [facility] [place] [address] [phone] 08/03/2021 Office Visit Hematology Oncology Nik Melo MD [address] [place] [address] [phone] 08/16/2021 Office Visit Urology Cm Rhodes MD 27 [address] [facility] 270 [place] [address] 09/06/2021 Office Visit Gastroenterology Angela Herbert CRNP 132 [place] [address] [phone] Health Maintenance Due Date Last Done Comments [...] Documents on File Type Date Recorded Patient Health Information Tech Expl anation Advanced Directive Advanced Directive 01/03/2011 [...]
--- OUTSIDE RECORDS SUMMARY | 2023-06-27 08:05 | External Medical Summary ---
Author Name Unknown Address Unknown Organization [id number]:[facility] - [address] [place] [address] Laboratory Report Ordering Provider Test Date Status SHAY CH 08/03/2021 13:48:57 Final Observation Date Value Abnormality Reference (Units ) Status Hepatitis B virus core Ab [Presence] in Serum 08/03/2021 13:48:57 Negative Negative Final Performing Location [facility] - [address] [place] [address]
--- OUTSIDE RECORDS SUMMARY | 2023-06-27 08:05 | External Medical Summary | Summary of Care ---
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 IV removed. Pt discharged in stable condition. * Danielle Calvert RN - 07/26/2021 4:05 PM EDT [place], chair 2. Iv established. Venofer infusing without issues. documented in this encounter Plan of Treatment Upcoming Encounters Date Type Specialty Care Team Description 1 Imaging Radiology 1 Office Visit General Surgery Alexander Rodriguez MD [address] [place] [address] 1 Hospital Encounter Endoscopy Brendan Gomez MD 132 [place] [address] [phone] 1 Surgery Endoscopy Brendan Gomez MD [address] [place] [address] [phone] ESOPHAGOGASTRODUODENOSCOPY (EGD), FLEXIBLE, TRANSORAL, ENDOSCOPIC ULTRASOUND 1 Laboratory Laboratory 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 (HCC) Malignant neoplasm of other specified sites of stomach documented in this encounter Administered Medications Active Administered Medications - up to 3 most recent administrations Medication Order MAR Action Action Date Dose Rate Site diphenhydrAMINE (Benadryl) inj 50 mg 50 mg, IV Push, ONCE PRN Other, Hypersensitivity Reaction, Starting 07/26/21 at 1343, Until 07/27/21 at 1342, For 24 hours EPINEPHrine 1 MG/ML inj 0.3 mg 0.3 mg, Intramuscular, ONCE PRN Other, Hypersensitivity Reaction or Anaphylaxis, Starting Tu07/26/21 at 1343, Until Sun07/27/21 at 1342, For 24 hours hEParin 100 UNIT/ML Lock Flush inj 500 Units 500 Units (5 mL), IV Lock, PRN Other, IV Flush, Starting Sun07/26/21 at 1343, Until Sun07/27/21 at 1342, For 24 hours, Do not flush if lock, PICC, or central line not in place; IV infusing or unable to flush., Hydrocortisone Na Succinate PF (Solu-Cortef) inj 100 mg 100 mg, IV Push, ONCE PRN Other, Hypersensitivity Reaction, Starting Sun07/26/21 at 1343, Until Sun07/27/21 at 1342, For 24 hours NSS infusion 500 mL, Intravenous, at 50 mL/hr, CONTINUOUS, Starting Sun07/26/21 at 1445, Until Sun07/27/21 at 0044 Start Infusion 07/26/2021 12:25 PM EDT 500 mL 50 mL/hr sodium chloride 0.9% flush/inj 10 mL 10 mL, IV Push, PRN Other, IV Flush, Starting Sun07/26/21 at 1343, Until Sun07/27/21 at 1342, For 24 hours, Do not flush if lock, PICC, or central line not in place; IV infusing or unable to flush., Inactive Administered Medications - up to 3 most recent administrations Medication Order MAR Action Action Date Dose Rate Site Iron Sucrose (Venofer) 200 mg in NSS 100 mL ivpb 200 mg, IV Piggyback, ONCE, 1 dose, Sun07/26/21 at 1515, Administer over 60 Minutes Start Infusion 07/26/2021 12:30 PM EDT 200 mg 100 mL/hr documented in this encounter Advance Directives Documents on File Type Date Recorded Patient Floor Finisher Expl anation Advanced Directive Advanced Directive 01/03/2011 [...]
--- OUTSIDE RECORDS SUMMARY | 2023-06-27 08:05 | External Medical Summary | Summary of Care ---
Author Name Unknown Organization [facility] Address [facility] [place] [address] Care Team Providers Care Glass Smoother Name Role Phone Hortencia Leal PA-C Primary Care Provid er Encounter Details Date Type Department Care Team Description 07/22/2021 Orders Only Gastroenterology, [facility] [address] [place] [address] Roz Tracey MD 132 [facility] [place] [address] [phone] Allergies Active Allergy Reactions Severity Noted Date [...] times a day. As needed 0 Active [place]-3 Fatty Acids (FISH OIL) 1000 MG Capsule [...] General Surgery Alexander Rodriguez MD [address] [facility] [address] [phone] 08/03/2021 Laboratory Laboratory [place], Lab Scenery [address] [place] [address] [phone] 08/03/2021 Office Visit Hematology Oncology Nik Melo MD 200 [place] [address] [phone] 08/16/2021 Office Visit Urology Cm Rhodes MD 27 [facility] [address] [place] [address] 09/06/2021 Office Visit Gastroenterology Angela Herbert CRNP 132 [facility] [place] [address] [phone] Health Maintenance Due Date Last Done Comments [...] Documents on File Type Date Recorded Patient Pressure Welder Expl anation Advanced Directive Advanced Directive 01/03/2011 [...]
--- OUTSIDE RECORDS SUMMARY | 2023-06-27 08:05 | External Medical Summary | Summary of Care ---
Author Name Unknown Organization [facility] Address [facility] [place] [address] Care Team Providers Care Screw Machine Tool Setter Name Role Phone Hortencia Leal PA-C Primary Care Provid er Encounter Details Date Type Department Care Team Description 07/21/2021 Orders Only Hematology/Oncology Treatment, [place] [address] [place] [address] Roz Tracey MD 132 [facility] [place] [address] [phone] Allergies Active Allergy Reactions Severity Noted Date [...] times a day. As needed 0 Active [place]-3 Fatty Acids (FISH OIL) 1000 MG Capsule [...] General Surgery Alexander Rodriguez MD [address] [facility] [place] [address] [phone] 08/03/2021 Laboratory Laboratory [place], Lab Scenery [address] [place] [address] [phone] 08/03/2021 Office Visit Hematology Oncology Nik Melo MD 200 [place] [address] [phone] 08/16/2021 Office Visit Urology Cm Rhodes MD 27 [facility] 270 [place] [address] 09/06/2021 Office Visit Gastroenterology Angela Herbert CRNP 132 [place] [address] [phone] Health Maintenance Due Date Last Done Comments [...] on File Type Date Recorded Patient Pastry Finisher Expl anation Advanced Directive Advanced Directive [...]
--- OUTSIDE RECORDS SUMMARY | 2023-06-27 08:06 | External Medical Summary | Summary of Care ---
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 (HCC) Procedures PET CT SKULL BASE TO MID-THIGH Roz Tracey MD 132 [facility] [place] [address] Electronically signed by Roz Tracey MD at Encounter Details Date Type Department Care Team Description 07/20/2021 Orders Only Gastroenterology, [facility] 132 [facility] [place] [address] Roz Tracey MD 132 [facility] [place] [address] [phone] 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 documented as of this encounter (statuses as of 07/20/2021) Immunizations Name Administration Dates Next Due COVID-19 [...] Specialty Care Team Description 08/03/2021 Laboratory Laboratory [facility] 200 [place] [address] [phone] 08/03/2021 Office Visit Hematology Oncology Nik Melo MD 200 [place] [address] [phone] 08/16/2021 Office Visit Urology Cm Rhodes MD [address] [address] 09/06/2021 Office Visit Gastroenterology Angela Herbert CRNP 132 [place] [address] [phone] Scheduled Orders Name Type Priority Associated Diagnoses Orde r Schedule PET CT SKULL BASE TO MID-THIGH Medical Imaging Routine 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 (HCC) Expected: 08/03/2021, Expires: 08/19/2022 ENDOSCOPIC Medical Imaging Routine Malignant neoplasm of overlapping sites of stomach (HCC) Expected: 07/20/2021, Expires: 08/19/2022 Health Maintenance Due Date Last Done Comments [...] Documents on File Type Date Recorded Patient Production Administrator Expl anation Advanced Directive Advanced Directive 01/03/2011 [...] 07/15/2021 12:15 PM Advanced Directive Advanced Directive Latest Code Status on File Code Status Date Activated Date Inactivated Comments Full Code 10/30/2011 12:44 PM 10/31/2011 3:48 PM This order reflects the patients wishes and were consensually agreed upon. Full Code 01/05/2011 11:28 AM 01/05/2011 11:38 PM Thi s order reflects the patients wishes and were consensually agreed upon.
--- OUTSIDE RECORDS SUMMARY | 2023-06-27 08:06 | External Medical Summary ---
Author Name Unknown Address Unknown Organization [facility] [address] [place] [address] Laboratory Report Ordering Provider Test Date Status BAUTISTA SOLERKARAN 07/15/2021 12:53:35 Final Observation Date Value Abnormality Reference (Units ) Status Glucose Point of Care 07/15/2021 12:53:35 144 Above high normal 70-120 (mg/dL) Final Performing Location [facility] - [address] [place] [address]
--- OUTSIDE RECORDS SUMMARY | 2023-06-27 08:06 | External Medical Summary | Summary of Care ---
Author Name Unknown Organization [facility] Address [facility] [place] [address] Care Team Providers Care R&D Lab Technician Name Role Phone Hortencia Leal PA-C Primary Care Provid er Encounter Details Date Type Department Care Team Description 07/20/2021 Refill Gastroenterology, [facility] 132 [facility] [place] [address] Angela Herbert CRNP 132 [facility] [place] [address] [phone] Allergies Active Allergy Reactions Severity Noted Date [...] times a day. As needed 0 Active [place]-3 Fatty Acids (FISH OIL) 1000 MG Capsule [...] of 07/21/2021) Active Problems Problem Noted Date Prostate cancer [...] General Surgery Alexander Rodriguez MD [address] [place] [place], [place] [address] 08/03/2021 Laboratory Laboratory [place], Lab Scenery [address] [place] [address] [phone] 08/03/2021 Office Visit Hematology Oncology Nik Melo MD 200 [place] [address] [phone] 08/16/2021 Office Visit Urology Cm Rhodes MD 27 [facility] 270 [place] [address] 09/06/2021 Office Visit Gastroenterology Angela Herbert CRNP 132 [facility] [place] [address] [phone] Health Maintenance Due Date Last Done Comments [...] on File Type Date Recorded Patient Manager Background Expl anation Advanced Directive Advanced Directive 01/03/2011 [...]
--- OUTSIDE RECORDS SUMMARY | 2023-06-27 08:06 | External Medical Summary ---
Author Name Unknown Address Unknown Organization K0G:[facility] [place] [facility] - [address] [place] [address] Laboratory Report Ordering Provider Test Date Status LAMONT SOLER 07/15/2021 15:04:04 Final Observation Date Value Abnormality Reference (Units ) Status WBC, Total 07/15/2021 15:04:04 6.03 4.00-10.8 0 (K/uL) Final RBC 07/15/2021 15:04:04 2.37 Below low normal 4.5 0-5.25 (M/uL) Final Hemoglobin 07/15/2021 15:04:04 7.4 Below low normal 14 .0-16.8 (g/dL) Final HCT 07/15/2021 15:04:04 24.5 Below low normal 40. 0-48.4 (%) Final MCV 07/15/2021 15:04:04 103.4 Above high normal 82 .0-99.5 (fL) Final MCH 07/15/2021 15:04:04 31.2 27.0-34.0 (pg) Final MCHC 07/15/2021 15:04:04 30.2 Below low normal 32. 0-36.0 (g/dL) Final RDW 07/15/2021 15:04:04 14.9 11.5-15.5 (%) Final Platelets 07/15/2021 15:04:04 211 140-400 (K /uL) Final MPV 07/15/2021 15:04:04 8.7 6.6-11.1 ( fL) Final Performing Location [facility] [place] [facility] 0 - [address] [place] [address]
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
--- OUTSIDE RECORDS SUMMARY | 2023-06-27 08:06 | External Medical Summary | Summary of Care ---
Author Name Unknown Organization [place] [address] Care Team Providers Care Field Artillery Targeting Technician Name Role Phone Hortencia Leal PA-C Primary Care Provid er Encounter Details Date Type Department Care Team Description 07/15/2021 Orders Only Gastroenterology, [facility] [address] [place] [address] Roz Tracey MD 132 [facility] [place] [address] [phone] Anemia, unspecified type* Allergies Active Allergy Reactions Severity Noted Date Comments Amlodipine 11/02/2020 dizziness Codeine Sulfate Other (Please comment) 10/26/19 11 hyperactivity Hydrochlorothiazide 11/02/2020 hypercalcemia documented as of this encounter (statuses as of 07/15/2021) Medications Medication Sig Dispensed Refills Start Date End Date Status LISINOPRIL 20 MG PO TABS one tab daily 0 Suspended METFORMIN ER 500 MG PO TB24 two tabs twice daily 0 Suspended VITAMIN B-12 1000 MCG PO [...] times a day. As needed 0 Suspended [place]-3 Fatty Acids (FISH OIL) 1000 MG Capsule Take 1,000 mg by mouth daily. 2 capsules by mouth twice daily 0 Suspended potassium citrate ER (UROCIT-K) 10 MEQ (1080 MG) TBCRIndications:Ki dney stones,Kidney stone Take 1 Tab by mouth 3 times a day. With meals 270 Tab 3 05/02/2018 Suspended Additional Information Alogliptin Benzoate 12.5 MG TABS Take 12.5 mg by mouth daily. 0 Suspended Acetaminophen 325 MG Oral Tablet (Tylenol) Take 325 mg by mouth every 6 hours as needed. 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 documented as of this encounter (statuses as of 07/15/2021) Immunizations Name Administration Dates Next Due COVID-19 [...] Date Type Specialty Care Team Description 07/26/2021 Office Visit Urology Via, Endy Daugherty PA-C 27 [facility] [address] [place] [address] 08/03/2021 Laboratory Laboratory [place], Lab Scenery [address] [place] [address] 08/03/2021 Office Visit Hematology Oncology Lorie, Zaragoza Sam, MD 200 [place] [address] [phone] 09/06/2021 Office Visit Gastroenterology Angela Herbert CRNP 132 [facility] [place] [address] [phone] Scheduled Orders Name Type Priority Associated Diagnoses Orde r Schedule CBC Lab Routine Anemia, unspecified type Expected: 07/15/2021, Expires: 07/15/2022 FERRITIN Lab Routine Anemia, unspecified type Expected: 07/15/2021, Expires: 07/15/2022 Health Maintenance Due Date Last Done Comments [...] COLONOSCOPY-EVERY 3 YRS AGES 18-100 07/15/2024 07/15/2021, 04/12/2018, 04/12/2018, Additional history exists COVID-19 Vaccine Completed 02/14/2021, 01/17/2021 MENINGOCOCCAL (MENACTRA/MENVEO) Aged Out No longer eligible based on patient's age to complete this topic documented as of this encounter Implants Not on filedocumented as of this encounter Visit Diagnoses Diagnosis Anemia, unspecified type- Primary documented in this encounter Advance Directives Documents on File Type Date Recorded Patient Abap Developer Expl anation Advanced Directive Advanced Directive 01/03/2011 12:00 AM Advanced Directive 10/25/2011 12:00 AM Advanced Directive Advanced Directive Advanced Directive Advanced Directive Advanced Directive Advanced Directive Advanced Directive Advanced Directive Advanced Directive Advanced Directive Advanced Directive Advanced Directive Advanced Directive Advanced Directive Advanced Directive Advanced Directive Advanced Directive Advanced Directive Advanced Directive Advanced Directive Advanced Directive Advanced Directive 07/15/2021 12:15 PM Latest Code Status on File Code Status Date Activated Date Inactivated Comments Full Code 10/30/2011 12:44 PM 10/31/2011 3:48 PM This order reflects the patients wishes and were consensually agreed upon. Full Code 01/05/2011 11:28 AM 01/05/2011 11:38 PM Thi s order reflects the patients wishes and were consensually agreed upon.
--- OUTSIDE RECORDS SUMMARY | 2023-06-27 08:06 | External Medical Summary | Summary of Care ---
Author Name Unknown Organization [facility] Address [facility] [place] [address] Care Team Providers Care Form Carpenter Name Role Phone Hortencia Leal PA-C Primary Care Provid er Encounter Details Date Type Department Care Team Description 07/20/2021 Refill Gastroenterology, [facility] 132 [facility] [place] [address] Angela Herbert CRNP 132 [facility] [place] [address] [phone] Allergies Active Allergy Reactions Severity Noted Date [...] times a day. As needed 0 Active [place]-3 Fatty Acids (FISH OIL) 1000 MG Capsule [...] Specialty Care Team Description 08/03/2021 Laboratory Laboratory [facility] 200 [place] [address] [phone] 08/03/2021 Office Visit Hematology Oncology Nik Melo MD 200 [place] [address] [phone] 08/16/2021 Office Visit Urology Cm Rhodes MD [address] [place] [address] 09/06/2021 Office Visit Gastroenterology Angela Herbert CRNP 132 [place] [address] Health Maintenance Due Date Last Done [...] on File Type Date Recorded Patient Medical Lab Technician Expl anation Advanced Directive Advanced Directive [...]
--- OUTSIDE RECORDS SUMMARY | 2023-06-27 08:06 | External Medical Summary ---
Author Name Unknown Address Unknown Organization K01:[facility] - [address] [place] [address] Laboratory Report Ordering Provider Test Date Status LAMONT SOLER 07/15/2021 15:04:04 Final Observation Date Value Abnormality Reference (Units ) Status Ferritin 07/15/2021 15:04:04 31 30-400 (ng /mL) Final Performing Location [facility] - [address] [place] [address]
--- OUTSIDE RECORDS SUMMARY | 2023-06-27 08:06 | External Medical Summary | Summary of Care ---
Author Name Unknown Organization [place] [address] Care Team Providers Care Load Test Mechanic Name Role Phone Hortencia Leal PA-C Primary Care Provid er Reason for Visit * Reason Onset Date Comments Referral 07/21/2021 Encounter Details Date Type Department Care Team Description 07/21/2021 Telephone General Surgery, [facility] [address], [place] [id number] Sveta Salas, LAN [address] [place] [address] Referral Allergies Active Allergy Reactions Severity Noted Date [...] times a day. As needed 0 Active [place]-3 Fatty Acids (FISH OIL) 1000 MG Capsule [...] Telephone Encounter - Sveta Salas RN - 07/21/2021 9:52 AM EDT Referral received from Dr. 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 He does not have any obvious met disease on staging CT. Attempted to contact patient to schedule appointment - pt offered and accepted 07/28/[address] Rodriguez. documented in this encounter Plan of Treatment Upcoming Encounters Date Type Specialty Care Team Description 07/28/2021 Office Visit General Surgery Alexander Rodriguez MD [address], [place] [id number] 08/03/2021 Laboratory Laboratory [facility] 200 [place] [address] [phone] 08/03/2021 Office Visit Hematology Oncology Nik Melo MD 200 [place] [address] [phone] 08/16/2021 Office Visit Urology Cm Rhodes MD [address] [address] 09/06/2021 Office Visit Gastroenterology Angela Herbert CRNP [facility] [place] [address] Health Maintenance Due Date Last Done [...] Documents on File Type Date Recorded Patient Fisheries Diver Expl anation Advanced Directive Advanced Directive 01/03/2011 [...] PM Advanced Directive Advanced Directive Advanced Directive Latest [...]
--- OUTSIDE RECORDS SUMMARY | 2023-06-27 08:06 | External Medical Summary | Summary of Care ---
Author Name Unknown Organization [facility] Address [facility] [place] [address] Care Team Providers Care Design Architect Name Role Phone Hortencia Leal PA-C Primary Care Provid er Encounter Details Date Type Department Care Team Description 07/20/2021 Telephone Gastroenterology, [facility] 132 [facility] [place] [address] Angela Herbert CRNP 132 [facility] [place] [address] [phone] Allergies Active Allergy Reactions Severity Noted Date [...] times a day. As needed 0 Active [place]-3 Fatty Acids (FISH OIL) 1000 MG Capsule [...] one dose of venofer at this time. [place] plan built, routed for signature. Once signed [...] IV Venofer. * Telephone Encounter - Felicity Zpaata RN - 07/20/2021 2:31 PM EDT I [...] General Surgery Alexander Rodriguez MD [address] [place] [address] [phone] 08/03/2021 Laboratory Laboratory [facility] 200 [place] [address] [phone] 08/03/2021 Office Visit Hematology Oncology Nik Melo MD 200 [place] [address] [phone] 08/16/2021 Office Visit Urology Cm Rhdoes MD [address] [address] 09/06/2021 Office Visit Gastroenterology Angela Herbert CRNP 132 [place] [address] [phone] Health Maintenance Due Date Last Done Comments [...] Documents on File Type Date Recorded Patient Urologic Nurse Expl anation Advanced Directive Advanced Directive [...]
--- OUTSIDE RECORDS SUMMARY | 2023-06-27 08:06 | External Medical Summary | Summary of Care ---
Author Name Unknown Organization [facility] Address [place] [address] Care Team Providers Care Impregnator Electrolytic Capacitors Name Role Phone Hortencia Barraza PA-C Primary Care Provide r Reason for Visit * Reason Onset Date Comments Test Results Imaging Study 05/30/2021 CT Encounter Details Date Type Department Care Team Description 05/30/2021 Telephone Gastroenterology, [facility] 132 [facility] [place] [address] Angela Herbert CRNP 132 [facility] [place] [address] Test Results Imaging [...] back and made aware of his results * Telephone Encounter - Srinivas Daniels RN - 05/30/2021 3:02 PM EDT Called patient, no answer, LMOM with return # to discuss results. Results faxed to PCP office @ [phone] * Telephone Encounter - Angela Herbert CRNP [...] Hospital Encounter Endoscopy [facility]oz [facility] [place] [address] [phone] 07/15/2021 Surgery Endoscopy Roz Tracey MD 132 [facility] [place] [address] [phone] COLONOSCOPY FLEXIBLE PROXIMAL DIAGNOSTIC 07/26/2021 Office Visit Urology Endy Christian PA-C 27 [facility] [address] [place] [address] [phone] 08/03/2021 Laboratory Laboratory Enrique Cast[facility]eda [facility] 200 [facility] [address] [phone] 08/03/2021 Office Visit Hematology Oncology [facility] [address] [phone] 09/06/2021 Office Visit Gastroenterology Angela Herbert Karen, PYROGLAZER 132 [facility] [place] [address] [phone] Health Maintenance Due Date Last Done Comments [...] Documents on File Type Date Recorded Patient Title Clerk Automobile Expl anation Advanced Directive Advanced Directive 01/03/2011 [...]
--- OUTSIDE RECORDS SUMMARY | 2023-06-27 08:06 | External Medical Summary | Summary of Care ---
Author Name Unknown Organization [facility] Address [place] [address] Care Team Providers Care Chief School Finance Officer Name Role Phone Hortencia Barraza PA-C Primary Care Provide r Encounter Details Date Type Department Care Team Description 05/25/2021 Scan Encounter Unspecified Department <No scans attached> Allergies Active Allergy Reactions Severity Noted Date Comments Amlodipine 11/02/2020 dizziness Codeine Sulfate Other (Please comment) 10/26/19 11 hyperactivity Hydrochlorothiazide 11/02/2020 hypercalcemia documented as of this encounter (statuses as of 06/01/2021) Medications Medication Sig Dispensed Refills Start Date [...] a day. 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 documented as of this encounter (statuses as of 06/01/2021) Immunizations Name Administration Dates Next Due COVID-19 [...] Endoscopy Roz Tracey MD [address] [place] [address] [phone] 07/15/2021 Surgery Endoscopy Roz Tracey MD [address] [place] [address] [phone] COLONOSCOPY FLEXIBLE PROXIMAL DIAGNOSTIC 07/26/2021 Office Visit Urology Via, Endy Daugherty PA-C 27 [facility] [place] [address] [place] [id number] 08/03/2021 Laboratory Laboratory [place], Lab Scenery [address] [place] [address] [phone] 08/03/2021 Office Visit Hematology Oncology Nik Melo MD 200 [place] [address] [phone] 09/06/2021 Office Visit Gastroenterology Angela Herbert CRNP 132 [facility] [place] [address] [phone] Health Maintenance Due Date Last Done Comments [...] Documents on File Type Date Recorded Patient Psychiatrist Expl anation Advanced Directive Advanced Directive 01/03/2011 [...]
--- OUTSIDE RECORDS SUMMARY | 2023-06-27 08:07 | External Medical Summary | Summary of Care ---
Author Name Unknown Organization [facility] Address [place] [address] Care Team Providers Care Foreclosure Home Inspector Name Role Phone Hortencia Barraza PA-C Primary Care Provide r Encounter Details Date Type Department Care Team Description 05/30/2021 Telephone Gastroenterology, [facility] 132 [facility] [place] [address] Angela Herbert CRNP [address] [place] [address] [phone] Allergies Active Allergy Reactions Severity Noted Date [...] times a day. As needed 0 Active [place]-3 Fatty Acids (FISH OIL) 1000 MG Capsule [...] encounter Miscellaneous Notes * Telephone Encounter - Angela Herbert CRNP [...] Hospital Encounter Endoscopy Roz Tracey MD 132 [facility] [place] [address] [phone] 07/15/2021 Surgery Endoscopy Roz Tracey MD 132 [facility] [place] [address] [phone] COLONOSCOPY FLEXIBLE PROXIMAL DIAGNOSTIC 07/26/2021 Office Visit Urology Endy Christian PA-C 27 [facility] 270 [place] [address] [phone] 08/03/2021 Laboratory Laboratory [facility] 200 [place] [address] [phone] 08/03/2021 Office Visit Hematology Oncology Nik Melo MD 200 [place], [place] [address] 09/06/2021 Office Visit [facility]astroenterology [facility] Herbert CR[facility] [address] Health Maintenance Due Date Last Done [...] Documents on File Type Date Recorded Patient Studio Potter Expl anation Advanced Directive Advanced Directive 01/03/2011 [...]
--- OUTSIDE RECORDS SUMMARY | 2023-06-27 08:07 | External Medical Summary | Summary of Care ---
Author Name Unknown Organization [place] [address] Care Team Providers Care Wrecking Crane Engine Operator Name Role Phone Hortencia Barraza PA-C Primary Care Provide r Reason for Referral * Precert (Within 10 days (routine)) Status Reason Specialty Diagnoses / Procedures Referred By Contact Referred To Contact Authorized Radiology Diagnoses Anemia, unspecified type Epigastric pain Procedures CT CHEST/ABDOMEN/PELVIS WITHOUT IV CONTRAST WITHOUT ORAL CONTRAST Angela Herbert CRNP 132 [facility] [place] [address] Electronically signed by Angela ALVARENGA at Encounter Details Date Type Department Care Team Description 05/17/2021 Telephone Gastroenterology, [facility] 132 [facility] [place] [address] Angela Herbert CRNP 132 [facility] [place] [address] [phone] Allergies Active Allergy Reactions Severity Noted Date Comments Amlodipine 11/02/2020 dizziness Codeine Sulfate Other (Please comment) 10/26/19 11 hyperactivity Hydrochlorothiazide 11/02/2020 hypercalcemia documented as of this encounter (statuses as of 05/18/2021) Medications Medication Sig Dispensed Refills Start Date [...] times a day. 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 If you feel the patient needs a contrast study, the case can be reviewed by a Radiologist for more guidance. Please reach out if you need anything more! * Telephone Encounter - Angela Herbert CRNP - 05/17/2021 12:07 PM EDT GFR 35. Do we need to change CT order to noncon or what is the cut off Can you help me route this to CT at [facility] LYLE Velazquez 05/17/2021 12:07 PM documented in this encounter Plan of Treatment Upcoming Encounters Date Type Specialty Care Team Description 05/24/2021 Imaging Radiology 07/15/2021 Hospital Encounter Endoscopy Roz Tracey MD 132 [facility] [place] [address] [phone] 07/15/2021 Surgery Endoscopy Roz Tracey MD 132 [place] [address] [phone] COLONOSCOPY FLEXIBLE PROXIMAL DIAGNOSTIC 07/26/2021 Office Visit Urology Endy Christian PA-C [address] [place] [address] [phone] 08/03/2021 Laboratory Laboratory [facility] Scene [address] [place] [address] [phone] 08/03/2021 Office Visit Hematology Oncology Nik Melo MD 200 [place] [address] [phone] 09/06/2021 Office Visit Gastroenterology Angela Herbert CRNP 132 [place] [address] [phone] Scheduled Orders Name Type Priority Associated Diagnoses Orde r Schedule CT CHEST/ABDOMEN/PELVI S WITHOUT IV CONTRAST WITHOUT ORAL CONTRAST Medical Imaging Routine Anemia, unspecified type Epigastric pain Expected: 05/18/2021, Expires: 05/18/2022 Health Maintenance Due Date Last Done Comments [...] Visit Diagnoses Diagnosis Anemia, unspecified type- Primary Epigastric pain Abdominal pain, epigastric Anemia, unspecified type History of colon polyps Personal history of colonic polyps documented in this encounter Advance Directives Documents on File Type Date Recorded Patient Wood Grinder Expl anation Advanced Directive Advanced Directive 01/03/2011 [...]
--- OUTSIDE RECORDS SUMMARY | 2023-06-27 08:07 | External Medical Summary | Summary of Care ---
Author Name Unknown Organization [facility] Address [place] [address] Care Team Providers Care Metal Punch Press Operator Name Role Phone Hortencia Barraza PA-C Primary Care Provide r Encounter Details Date Type Department Care Team Description 05/25/2021 Scan Encounter Unspecified Department <No scans attached> Allergies Active Allergy Reactions Severity Noted Date Comments Amlodipine 11/02/2020 dizziness Codeine Sulfate Other (Please comment) 10/26/19 11 hyperactivity Hydrochlorothiazide 11/02/2020 hypercalcemia documented as of this encounter (statuses as of 05/26/2021) Medications Medication Sig Dispensed Refills Start Date [...] a day. 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 documented as of this encounter (statuses as of 05/26/2021) Immunizations Name Administration Dates Next Due COVID-19 [...] Endoscopy Roz Tracey MD [address] [place] [address] [phone] 07/15/2021 Surgery Endoscopy Roz Tracey MD [address] [place] [address] [phone] COLONOSCOPY FLEXIBLE PROXIMAL DIAGNOSTIC 07/26/2021 Office Visit Urology Via, Endy Daugherty PA-C 27 [facility] [address] [place] [id number] 08/03/2021 Laboratory Laboratory [place], Lab Scenery [address] [place] [address] [phone] 08/03/2021 Office Visit Hematology Oncology Nik Melo MD 200 [place] [address] [phone] 09/06/2021 Office Visit Gastroenterology Angela Herbert CRNP 132 [facility] [place] [address] [phone] Health Maintenance Due Date Last Done Comments [...] Documents on File Type Date Recorded Patient Equipment Manager Expl anation Advanced Directive Advanced Directive [...]
--- OUTSIDE RECORDS SUMMARY | 2023-06-27 08:07 | External Medical Summary | Summary of Care ---
Author Name Unknown Organization [facility] Address [place] [address] Care Team Providers Care Sql Consultant Name Role Phone Hortencia Barraza PA-C Primary Care Provide r Encounter Details Date Type Department Care Team Description 05/17/2021 Telephone Gastroenterology, [facility] 132 [facility] [place] [address] Angela Herbert CRNP [address] [place] [address] [phone] Allergies Active Allergy Reactions Severity Noted Date Comments Amlodipine 11/02/2020 dizziness Codeine Sulfate Other (Please comment) 10/26/19 11 hyperactivity Hydrochlorothiazide 11/02/2020 hypercalcemia documented as of this encounter (statuses as of 05/17/2021) Medications Medication Sig Dispensed Refills Start Date [...] times a day. 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 documented as of this encounter (statuses as of 05/17/2021) Immunizations Name Administration Dates Next Due COVID-19 [...] help me route this to CT at [facility] LYLE Velazquez 05/17/2021 12:07 PM documented in this encounter Plan of Treatment Upcoming Encounters Date Type Specialty Care Team Description 05/24/2021 Imaging Radiology 07/15/2021 Hospital Encounter Endoscopy Roz Tracey MD 132 [facility] [place] [address] [phone] 07/15/2021 Surgery Endoscopy Roz Tracey MD 132 [facility] [place] [address] [phone] COLONOSCOPY FLEXIBLE PROXIMAL DIAGNOSTIC 07/26/2021 Office Visit Urology Anahi, Endy Daugherty PA-C 27 [facility] [address] [place], [place] [id number] 08/03/2021 Laboratory Laboratory [facility] Scene [address] [place] [address] [phone] 08/03/2021 Office Visit Hematology Oncology Nik Melo MD 200 [place] [address] [phone] 09/06/2021 Office Visit [facility]astroenterology [facility] [address] [phone] Health Maintenance Due Date Last Done Comments [...] Documents on File Type Date Recorded Patient Tactical Response Group Officer Expl anation Advanced Directive Advanced Directive 01/03/2011 [...]
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
--- OUTSIDE RECORDS SUMMARY | 2023-06-27 08:07 | External Medical Summary | Summary of Care ---
Author Name Unknown Organization [place] [address] Care Team Providers Care Catalyst Operator Name Role Phone Hortencia Barraza PA-C Primary Care Provide r Reason for Referral * Precert (Within 10 days (routine)) Status Reason Specialty Diagnoses / Procedures Referred By Contact Referred To Contact Authorized Radiology Diagnoses Anemia, unspecified type Epigastric pain Procedures CT CHEST/ABDOMEN/PELVIS WITHOUT IV CONTRAST WITHOUT ORAL CONTRAST Angela Herbert CRNP 132 [facility] [place] [address] Electronically signed by Angela ALVARENGA at Encounter Details Date Type Department Care Team Description 05/17/2021 Telephone Gastroenterology, [facility] 132 [facility] [place] [address] Angela Herbert CRNP 132 [facility] [place] [address] [phone] Allergies Active Allergy Reactions Severity Noted Date [...] times a day. As needed 0 Active [place]-3 Fatty Acids (FISH OIL) 1000 MG Capsule [...] encounter Miscellaneous Notes * Telephone Encounter - Lata Chavez OSA - 05/18/2021 11:04 AM EDT [facility] Central Scheduling please review external radiology order and schedule patient per protocol. [facility] Radiology Linen Tech will wilton back as time permits. * Addendum Note - Angela Herbert CRNP - 05/18/2021 11:00 AM EDT Addended by: [...] help me route this to CT at [facility] LYLE Velazquez 05/17/2021 12:07 PM documented in this encounter Plan of Treatment Upcoming Encounters Date Type Specialty Care Team Description 05/24/2021 Imaging Radiology 07/15/2021 Hospital Encounter Endoscopy Roz Tracey MD 132 [facility] [place] [address] [phone] 07/15/2021 Surgery Endoscopy Roz Tracey MD 132 [facility] [place] [address] [phone] COLONOSCOPY FLEXIBLE PROXIMAL DIAGNOSTIC 07/26/2021 Office Visit Urology Endy Christian PA-C 27 [facility] [address] [place] [id number] 08/03/2021 Laboratory Laboratory [facility] Scenery [address] [place] [address] [phone] 08/03/2021 Office Visit Hematology Oncology Nik Melo MD 200 [place] [address] [phone] 09/06/2021 Office Visit Gastroenterology Angela Herbert CRNP 132 [facility] [place] [address] [phone] Scheduled Orders Name Type Priority Associated Diagnoses [...] Documents on File Type Date Recorded Patient Insulating Machine Operator Expl anation Advanced Directive Advanced [...]
--- OUTSIDE RECORDS SUMMARY | 2023-06-27 08:07 | External Medical Summary | Summary of Care ---
Author Name Unknown Organization [facility] Address [place] [address] Care Team Providers Care Client Account Assistant Name Role Phone Hortencia Barraza PA-C Primary Care Provide r Reason for Visit * Reason Onset Date Comments Test Results Imaging Study 05/30/2021 CT Encounter Details Date Type Department Care Team Description 05/30/2021 Telephone Gastroenterology, [facility] 132 [facility] [place] [address] Angela Herbert CRNP 132 [facility] [place] [address] Test Results [...] times a day. As needed 0 Active [place]-3 Fatty Acids (FISH OIL) 1000 MG Capsule [...] results. Results faxed to PCP office @ [phone] * Telephone Encounter - Angela Herbert CRNP [...] Hospital Encounter Endoscopy [facility]oz Tracey [facility] [address] [facility] [address] [phone] 07/15/2021 Surgery [facility] [place] [address] [phone] COLONOSCOPY FLEXIBLE PROXIMAL DIAGNOSTIC 07/26/2021 Office Visit Urology Endy Christian PA-C 27 [facility] [address] [place], [place] [address] 08/03/2021 Laboratory Laboratory [facility] Lab [facility] [address] [place] [address] [phone] 08/03/2021 Office Visit Hematology Oncology Nik Melo MD [address] [place] [address] [phone] 09/06/2021 Office Visit Gastroenterology Angela Herbert CRNP 132 [facility] [place] [address] [phone] Health Maintenance Due Date Last Done Comments [...] Documents on File Type Date Recorded Patient Immunochemist Expl anation Advanced Directive Advanced Directive 01/03/2011 [...]
--- OUTSIDE RECORDS SUMMARY | 2023-06-27 08:07 | External Medical Summary | Summary of Care ---
Author Name Unknown Organization [facility] Address [place] [address] Care Team Providers Care Correctional Casework Specialist Name Role Phone Hortencia Barraza PA-C Primary Care Provide r Encounter Details Date Type Department Care Team Description 05/17/2021 Telephone Gastroenterology, [facility] [address] [place] [address] Angela Herbert CRNP [address] [place] [address] [phone] Allergies Active Allergy Reactions Severity Noted Date [...] times a day. As needed 0 Active [place]-3 Fatty Acids (FISH OIL) 1000 MG Capsule [...] help me route this to CT at iggy LYLE Velazquez 05/17/2021 12:07 PM documented in this encounter Plan of Treatment Upcoming Encounters Date Type Specialty Care Team Description 05/24/2021 Imaging Radiology 07/15/2021 Hospital Encounter Endoscopy Roz Tracey MD [address] [place] [address] [phone] 07/15/2021 Surgery Endoscopy Roz Tracey MD 132 [facility] [place] [address] [phone] COLONOSCOPY FLEXIBLE PROXIMAL DIAGNOSTIC 07/26/2021 Office Visit Urology Endy Christian PA-C 27 [facility] [address] [place] [address] [phone] 08/03/2021 Laboratory Laboratory [facility] [address] [place] [address] [phone] 08/03/2021 Office Visit Hematology Oncology Nik Melo MD 200 [place] [address] [phone] 09/06/2021 Office Visit Gastroenterology Angela Herbert CRNP [address] [place] [address] [phone] Health Maintenance Due Date Last Done Comments [...] on File Type Date Recorded Patient Metal Moulder Expl anation Advanced Directive Advanced Directive 01/03/2011 [...]
--- OUTSIDE RECORDS SUMMARY | 2023-06-27 08:07 | External Medical Summary | Summary of Care ---
Author Name Unknown Organization [place] [address] Care Team Providers Care Technology Applications Consultant Name Role Phone Hortencia Barraza PA-C Primary Care Provide r Reason for Referral * Precert (Within 10 days (routine)) Status Reason Specialty Diagnoses / Procedures Referred By Contact Referred To Contact Pending Review Radiology Diagnoses Anemia, unspecified type Epigastric burning sensation Regurgitation of food Procedures CT ABD/PELVIS W IV AND W ORAL CONTRAST Angela Herbert CRNP 132 [facility] [place] [address] Electronically signed by Angela ALVARENGA at Reason for Visit * Reason Comments NEW PATIENT Anemia Encounter Details Date Type Department Care Team Description 05/17/2021 Office Visit Gastroenterology, [facility] [address] [place] [address] Angela Herbert CRNP 132 [facility] [place] [address] [phone] Anemia, unspecified type*; Epigastric burning sensation; Regurgitation [...] times a day. As needed 0 Active [place]-3 Fatty Acids (FISH OIL) 1000 MG Capsule [...] more tired, increased naps and exhaustion. Sawthe SD who ordered blood work which showed anemia, [...] was started on iron recently by the SD. No bruising, bleeding, blood in urine, stool, [...] DIAGNOSTIC performedby Roz Tracey MD at ENDOSCOPY [facility] KNEE ARTHROSCOPY, DIAGNOSTIC 1989 Knee Arthroscopy right NEEDLE/PUNCH BIOPSY OF PROSTATE 01/05/2011 BIOPSY PROSTATE NEEDLE performed by EYAD LANDRUM at [facility] PROSTATECTOMY, RETROPUBIC RADICAL, LAP 10/30/2011 ROBOTIC LAPAROSCOPIC PROSTATECTOMY RETROPUBIC RADICAL performed by EYAD LANDRUM at [facility] REMOVAL OF TONSILS, UNDER AGE 12 Tonsillectomy REPAIR INITIAL INCISIONAL HERNIA 04/18/2012 Laparoscopic ventral hernia repair with 4 x [address] Adams 04/18/12 US ECHO TRANSRECTAL/PROSTATE 01/05/2011 ULTRASOUND TRANSRECTAL performed by EYAD LANDRUM at [facility] Social History Tobacco Use Smoking status: Never [...] a day. With meals 270 Tab 3 Two Dot-3 Fatty Acids (FISH OIL) 1000 MG Capsule [...] Encounters Date Type Specialty Care Team Description 05/17/2021 Laboratory Laboratory Enrique Olvera [address] [place] [address] [phone] Arrived 05/24/2021 Imaging Radiology 07/15/2021 Hospital Encounter Endoscopy Roz Tracey MD [address] [place] [address] [phone] 07/15/2021 Surgery Endoscopy Roz Tracey MD [address] [place] [address] [phone] COLONOSCOPY FLEXIBLE PROXIMAL DIAGNOSTIC 07/26/2021 Office Visit Urology Endy Christian PA-C 27 [facility] [address] [place] [address] [phone] 08/03/2021 Laboratory Laboratory [facility] [address] [place] [address] [phone] 08/03/2021 Office Visit Hematology Oncology Nik Melo MD 200 [place] [address] [phone] 09/06/2021 Office Visit Gastroenterology Angela Herbert CRNP 132 [place] [address] [phone] Scheduled Orders Name Type Priority Associated Diagnoses [...] Documents on File Type Date Recorded Patient Tripper Expl anation Advanced Directive Advanced Directive 01/03/2011 [...]
--- OUTSIDE RECORDS SUMMARY | 2023-06-27 08:07 | External Medical Summary ---
Author Name Unknown Address Unknown Organization [id number]:LABORATORY [place] [address] - [address] [place] [address] Laboratory Report Ordering Provider Test Date Status JOAQUIN CRAWFORD 05/17/2021 09:09:35 Final Observation Date Value Abnormality Reference (Units ) Status BUN 05/17/2021 09:09:35 30 Above high normal 6- 20 (mg/dL) Final Performing Location [facility] [place] [facility] 0 - [address] [place] [address]
--- OUTSIDE RECORDS SUMMARY | 2023-06-27 08:07 | External Medical Summary ---
Author Name Unknown Address Unknown Organization [id number]:LABORATORY [facility] [place] - [address] [place] [address] Laboratory Report Ordering Provider Test Date Status JOAQUIN CRAWFORD 05/17/2021 09:09:35 Final Observation Date Value Abnormality Reference (Units ) Status Folic Acid 05/17/2021 09:09:35 11.0 >4.5 (ng/ mL) Final Performing Location LABORATORY [facility] - [address] [place] [address]
--- OUTSIDE RECORDS SUMMARY | 2023-06-27 08:08 | External Medical Summary | Summary of Care ---
Author Name Unknown Organization [facility] Address [place], [place] [address] Care Team Providers Care Rhic Systems Safety Engineer Name Role Phone Hortencia Hassan PA-C Primary Care Provide r Reason for Visit * Reason Comments NEW PATIENT Encounter Details Date Type Department Care Team Description 04/05/2021 Office Visit Urology, [facility] [place] [address] Via, Endy Daugherty PA-C 27 [facility] [address] [place] [address] Prostate cancer (HCC)*; Kidney stones Allergies Active Allergy Reactions Severity Noted Date Comments Amlodipine 11/02/2020 dizziness Codeine Sulfate Other (Please comment) 10/26/19 11 hyperactivity Hydrochlorothiazide 11/02/2020 hypercalcemia documented as of this encounter (statuses as of 04/05/2021) Medications Medication Sig Dispensed Refills Start Date End Date Status LISINOPRIL 20 MG PO TABS one tab daily 0 Active METFORMIN ER 500 MG PO TB24 two tabs twice daily 0 Active VITAMIN B-12 1000 MCG PO TABS Take 500 mcg by mouth. 0 Active ATORVASTATIN CALCIUM 20 MG PO TABS one 1/2 pill each day at bedtime 0 Active Cholecalciferol (VITAMIN D-3) 1000 units Capsule Take 1,000 Units by mouth daily. 0 Active Aspirin 81 MG Tablet Take 81 mg by mouth daily. 0 Active meclizine (ANTIVERT) 12.5 MG Tablet Take 12.5 mg by mouth 2 times a day. As needed 0 Active [place]-3 Fatty Acids (FISH OIL) 1000 MG Capsule Take 1,000 mg by mouth daily. 2 capsules by mouth twice daily 0 Active potassium citrate ER (UROCIT-K) 10 MEQ (1080 MG) TBCRIndications:K idney stones,Kidney stone Take 1 Tab by mouth 3 times a day. With meals 270 Tab 3 05/02/2018 Active Additional Information Patient not taking. Reported on 04/05/2021 Alogliptin Benzoate 12.5 MG TABS Take 12.5 mg by mouth daily. 0 Active Acetaminophen 325 MG Oral Tablet (Tylenol) Take 325 mg by mouth every 6 hours as needed. 0 Active Leuprolide Acetate, 3 Month, (LUPRON DEPOT-PED, 3-MONTH,) 30 MG (Ped) KITIndications:rosita fulton 4 months Inject 30 mg into a large muscle. Indications: every 4 months 0 04/05/2021 Discontinued (Medication List Clean Up) Hospital, Clinic, or Other Facility Administered Medication Ordered Dose Route Frequency Start Date End Date Status leuprolide acetate (4 Month) (Eligard) inj 30 mgIndications:Prostate cancer (HCC) 30 mg SC ONCE 04/05/2021 04/05/2021 Ended documented as of this encounter (statuses as of 04/05/2021) Active Problems Problem Noted Date Prostate cancer 12/31/2013 Other ventral hernia without mention of obstruction or gangrene 05/03/2012 documented as of this encounter (statuses as of 04/05/2021) Resolved Problems Problem Noted Date Resolved Date Elevated prostate specific antigen (PSA) 011 12/31/2013 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 documented as of this encounter (statuses as of 04/05/2021) Social History Tobacco Use Types Packs/Day Years [...] Pressure - - Pulse - - Temperature 36.2 C (97.2 F) 04/05/2021 7:48 AM ED T Respiratory Rate - - Oxygen Saturation - - Inhaled Oxygen Concentration - - Weight 87.1 kg (192 lb) 04/05/2021 7:48 AM EDT Height - - Body Mass Index 35.69 12/20/2020 10:00 AM EST documented in this encounter Progress Notes * Endy Christian PA-C - 04/05/2021 8:03 AM EDT [id number] PCP: HORTENCIA HASSAN [address] [facility], [place] [address] [phone] Heath Austin is a 75 year old male, who presents in follow-up to kidney stones and prostate cancer. He is s/p robotic-assisted prostatectomy in 10/2011. His pathology demonstrated Juan 3+4, pT2c with negative margins. He developed biochemical failure in 2015. He had salvage RT. PSA began to climbagain and he was on Lupron from 08/2017 through 05/2020 with a good PSA response. He stopped it because of hot flashes, decreased muscle mass and fatigue. He was started back on leuprolide in 11/2020 due to a rising PSA. His PSA from 01/2021 is undetectable. He states that he has hot flahses, but he is getting by okay and agrees to continue hormonal therapy. Denies buring/pain on urination, difficulty urinating, change in stream, gross hematuria. He does admit to some stress incontinence and leakage of urination is delayed. He wears a pad all the time. He goes through three per day. He also has a history of kidney stones having passed them on two occasions. He has not had any issues with colic or hematuria in recent years. He states that he is following with nephrology at [facility]. He will be having a renal ultrasound done later this month. PSA Results: Lab Results Component Value Date/Time PSA - [facility] <0.02 01/24/2021 10:11 AM PSA - [facility] 0.08 11/01/2020 10:00 AM PSA - [facility] <0.02 02/24/2020 09:52 AM PSA - [facility] <0.02 11/21/2019 09:43 AM PSA-OUTSIDE LAB 0.074 05/16/2016 Current Outpatient Medications Medication Sig Dispense Refill Acetaminophen 325 MG Oral Tablet (Tylenol) Take 325 mg by mouth every 6 hours as needed. Alogliptin Benzoate 12.5 MG TABS Take 12.5 mg by mouth daily. Leuprolide Acetate, 3 Month, (LUPRON DEPOT-PED, 3-MONTH,) 30 MG (Ped) KIT Inject 30 mg into a large muscle. Indications: every 4 months Fourmile-3 Fatty Acids (FISH OIL) 1000 MG Capsule Take 1,000 mg by mouth daily. 2 capsules by mouth twice daily Aspirin 81 MG Tablet Take 81 mg by mouth daily. Cholecalciferol (VITAMIN D-3) 1000 units Capsule Take 1,000 Units by mouth daily. meclizine (ANTIVERT) 12.5 MG Tablet Take 12.5 mg by mouth 2 times a day. As needed ATORVASTATIN CALCIUM 20 MG PO TABS one 1/2 pill each day at bedtime VITAMIN B-12 1000 MCG PO TABS Take 500 mcg by mouth. LISINOPRIL 20 MG PO TABS one tab daily METFORMIN ER 500 MG PO TB24 two tabs twice daily potassium citrate ER (UROCIT-K) 10 MEQ (1080 MG) TBCR Take 1 Tab by mouth 3 times a day. With meals(Patient not taking: Reported on 04/05/2021) 270 Tab 3 Review of patient's allergies indicates: Allergen Reactions Amlodipine dizziness Codeine Sulfate Other (Please comment) hyperactivity Hctz [Hydrochlorothiazide] hypercalcemia Social History: Social History Tobacco Use Smoking status: Never Smoker Smokeless tobacco: Never Used Substance Use Topics Alcohol use: No Vaping/E-Cigarette Use Vaping/E-Cigarette Substances Vaping/E-Cigarette Devices Past Surgical History: Procedure Laterality Date COLONOSCOPY, DIAGNOSTIC (RECTUM) 03/07/2013 path shows adenomatous polyp repeat in 5 years COLONOSCOPY, DIAGNOSTIC (RECTUM) 04/12/2018 adenomatous polyps, diverticulosis, repeat 3 yrs/COLONOSCOPY FLEXIBLE PROXIMAL DIAGNOSTIC performedby Roz Tracey MD at ENDOSCOPY [facility] KNEE ARTHROSCOPY, DIAGNOSTIC 1989 Knee Arthroscopy right NEEDLE/PUNCH BIOPSY OF PROSTATE 01/05/2011 BIOPSY PROSTATE NEEDLE performed by EYAD LANDRUM at [facility] PROSTATECTOMY, RETROPUBIC RADICAL, LAP 10/30/2011 ROBOTIC LAPAROSCOPIC PROSTATECTOMY RETROPUBIC RADICAL performed by EYAD LANDRUM at OR [facility] REMOVAL OF TONSILS, UNDER AGE 12 Tonsillectomy REPAIR INITIAL INCISIONAL HERNIA 04/18/2012 Laparoscopic ventral hernia repair with 4 x [address] Adams 04/18/12 US ECHO TRANSRECTAL/PROSTATE 01/05/2011 ULTRASOUND TRANSRECTAL performed by EYAD LANDRUM at [facility] Past Medical History: Diagnosis Date Benign neoplasm of colon 03/07/2013 path shows adenomatous polyp repeat in 5 years DKA, type 2 (HCC) HTN, goal to be determined Prostate cancer (HCC) Patient Active Problem List Diagnosis Code Other ventral hernia without mention of obstruction or gangrene K43.9 Prostate cancer (HCC) C61 Past Surgical History:Reviewed Past Medical History Reviewed Patient's Family History: Reviewed ROS EXAM: No chest pain, No shortness of breath, No dyspnea on exertion, No orthopnea, No paroxysmal nocturnal dyspnea, No edema, No palpitations and No syncope ROS EXAM: No abdominal pain, No change in bowel habits, No significant heartburn, No significant change in appetite, No nausea, vomiting, diarrhea, or constipation, No hematemesis, No blood in stoolsor black tarry stools, No abdominal bloating or early satiety and No dysphagia ROS EXAM: Normal balance, No headaches, No seizures and No weakness ROS EXAM: No joint stiffness, No pain, No restriction of motion, No swelling, No redness, No heat, No weakness and No cramps ROS EXAM: Remainder of ROS Negative Filed Vitals: 04/05/21 0748 Temp: 36.2 C (97.2 F) TempSrc: Tympanic Weight: 87.1 kg (192 lb) GENERAL EXAM: Alert and oriented x3 and no acute distress NEUROLOGIC EXAM: negative EXTREMITY EXAM: negative HEENT EXAM: Normal RESPIRITIORY EXAM: unlabored RECTAL EXAM: deferred. EXAM: Deferred Impression/Plan: Prostate cancer (HCC) (Primary) S/p prostatectomy and salvage RT now on ADT with leuprolide. He was given a 30 mg Eligard injectiontoday. He is seeing medical oncology as well, and they have him scheduled for a PSA in July. We will see him back in 4 months for Eligard. Kidney stones He has not had any recurrent stone episodes in several years. He has no flank pain currently. He ishaving a renal ultrasound done later this month per nephrology. Endy Christian PA-C 8:03 AM 04/05/2021 documented in this encounter Nursing Notes * Jenni Sequeira LPN - 04/05/2021 7:[address] Moon Nov 30. last eligard 30 mg on Nov 30. Seeing rad / onc yearly through [facility], nextappt May 25. Sees Dr Melo in hem/onc at [facility], last visit February 01. Boat Engine Mechanic is Dr Robledo with [facility]. Urinary complaints: Leakage if he waits too long. Leakage with change of position or standing. Nocturia x 3. Slight increase in frequency. Denies buring/pain on urination, difficulty urinating, change in stream, gross hematuria. PSA Results: Lab Results Component Value Date/Time PSA - [facility] <0.02 01/24/2021 10:11 AM PSA - [facility] 0.08 11/01/2020 10:00 AM PSA - [facility] <0.02 02/24/2020 09:52 AM PSA - [facility] <0.02 11/21/2019 09:43 AM PSA-OUTSIDE LAB 0.074 05/16/2016 documented in this encounter Plan of Treatment Upcoming Encounters Date Type Specialty Care Team Description 05/17/2021 Office Visit Gastroenterology Angela Herbert CRNP [address] [place] [address] [phone] 07/26/2021 Office Visit Urology Endy Christian PA-C 27 [facility] [address] [place] [address] [phone] 08/03/2021 Laboratory [facility] [address] [phone] 08/03/2021 Office Visit Hematology Oncology Nik Melo MD [address] [place] [address] [phone] Health Maintenance Due Date Last Done Comments DTaP,Tdap,and Td Vaccines (1 - Tdap) 1964 Zoster Vaccines (1 of 2) 12/29/1995 Pneumococcal Vaccine: 65+ Years (1 of 1 - PPSV23) 2010 *DEPRESSION SCREENING,ANNUAL FOR PTS 12 AND OVER 09/29/2016 COVID-19 Vaccine (2 - Moderna 2-dose series) 02/14/2021 01/17/2021 COLONOSCOPY-EVERY 3 YRS AGES 18-100 04/12/2021 04/12/2018, 04/12/2018, 03/07/2013, Additional history exists Influenza Vaccine (FLU shot) (Season Ended) 2021 08/21/2018, 07/26/2015, 10/22/2010 DIABETES SCREEN EVERY 3 YRS-AGE 45 AND ABOVE 01/25/2024 01/24/2021, 11/21/2019, 08/14/2017, Additional history exists MENINGOCOCCAL (MENACTRA/MENVEO) Aged Out No longer eligible based on patient's age to complete this topic documented as of this encounter Implants Not on filedocumented as of this encounter Visit Diagnoses Diagnosis Prostate cancer (HCC)- Primary Malignant neoplasm of prostate Kidney stones Calculus of kidney documented in this encounter Administered Medications Inactive Administered Medications - up to 3 most recent administrations Medication Order MAR Action Action Date Dose Rate Site leuprolide acetate (4 Month) (Eligard) inj 30 mg 30 mg, Subcutaneous, ONCE, 04/05/21 at 0900, For 1 dose Given 04/05/2021 2:45 PM EDT 30 mg Abdomen Left Upper documented in this encounter Advance Directives Documents on File Type Date Recorded Patient Dope Sprayer Expl anation Advanced Directive Advanced Directive 01/03/2011 [...]
--- OUTSIDE RECORDS SUMMARY | 2023-06-27 08:08 | External Medical Summary ---
Author Name Unknown Address Unknown Organization [id number]:[facility] [place] [address] [place] [address] Laboratory Report Ordering Provider Test Date Status JOAQUIN CRAWFORD 05/17/2021 09:09:35 Final Observation Date Value Abnormality Reference (Units ) Status Vitamin B12 05/17/2021 09:09:35 804 232-1,24 5 (pg/mL) Final Performing Location [facility] [place] [address] [place] [address]
--- OUTSIDE RECORDS SUMMARY | 2023-06-27 08:08 | External Medical Summary ---
Author Name Unknown Address Unknown Organization [id number]:LABORATORY [facility] [place] - [address] [place] [address] Laboratory Report Ordering Provider Test Date Status YVETTEJOAQUIN 05/17/2021 09:09:35 Final Observation Date Value Abnormality Reference (Units ) Status Iron 05/17/2021 09:09:35 58 45-176 (ug/dL) Final Iron-binding capacity 05/17/2021 09:09:35 432 Above high normal 250-425 (ug/dL) Final Transferrin Sat % 05/17/2021 09:09:35 13 Below low normal 15-55 (%) Final Performing Location LABORATORY [facility] - [address] [place] [address]
--- OUTSIDE RECORDS SUMMARY | 2023-06-27 08:08 | External Medical Summary ---
Author Name Unknown Address Unknown Organization K01:LABORATORY [facility] [place] - [address] [place] [address] Laboratory Report Ordering Provider Test Date Status JOAQUIN CRAWFORD 05/17/2021 09:09:35 Final Observation Date Value Abnormality Reference (Units ) Status Ferritin 05/17/2021 09:09:35 22 Below low normal 30- 400 (ng/mL) Final Performing Location LABORATORY [facility] - [address] [place] [address]
--- OUTSIDE RECORDS SUMMARY | 2023-06-27 08:08 | External Medical Summary ---
Author Name Unknown Address Unknown Organization K01:[facility] [place] [address] [place] [address] Laboratory Report Ordering Provider Test Date Status YVETTEJEFEDENIS 05/17/2021 09:09:36 Final Observation Date Value Abnormality Reference (Units ) Status WBC, Total 05/17/2021 09:09:36 5.89 4.00-10.8 0 (K/uL) Final RBC 05/17/2021 09:09:36 2.85 Below low normal 4.5 0-5.25 (M/uL) Final Hemoglobin 05/17/2021 09:09:36 8.5 Below low normal 14 .0-16.8 (g/dL) Final Performing Location [facility] [place] [address] [place] [address]
--- OUTSIDE RECORDS SUMMARY | 2023-06-27 08:08 | External Medical Summary ---
Author Name Unknown Address Unknown Organization K0G:LABORATORY [facility] [place] [facility] - [address] [place] [address] Laboratory Report Ordering Provider Test Date Status JOAQUIN CRAWFORD 05/17/2021 09:09:35 Final Observation Date Value Abnormality Reference (Units ) Status Creatinine 05/17/2021 09:09:35 1.8 Above high normal 0.6-1.2 (mg/dL) Final Glomerular filtration rate/1.73 sq M.predicted [Volume Rate/Area] in Serum, Plasma or Blood by Creatinine-based formula (CKD-EPI) 05/17/2021 09:09:35 35.3 Below low normal >=60.0 (mL/min) Final Performing Location LABORATORY [facility] [place] 0 - [address] [place] [address]
--- OUTSIDE RECORDS SUMMARY | 2023-06-27 08:08 | External Medical Summary ---
Author Name Unknown Address Unknown Organization K01:LABORATORY [facility] - [address] [facility] [place] [address] Laboratory Report Ordering Provider Test Date Status JOAQUIN CRAWFORD 05/17/2021 09:09:36 Final Observation Date Value Abnormality Reference (Units ) Status SYNC LEUKOCYTES IN BLOOD BY AUTOMATED COUNT 05/17/2021 09:09:36 5.89 4.00-10.80 (K/uL) Final Segs 05/17/2021 09:09:36 66.7 40.0-75.0 (%) Final Lymphs % 05/17/2021 09:09:36 21.6 18.0-42.0 (%) Final Monos 05/17/2021 09:09:36 8.8 1.0-11.0 (%) Final Eosinophils 05/17/2021 09:09:36 1.9 0.0-6.0 (%) Final Basos 05/17/2021 09:09:36 0.5 0.0-2.0 (%) Final Immature Granulocyte, Percent 05/17/2021 09:09:36 0.5 0.0-2.0 (%) Final Absolute Segs 05/17/2021 09:09:36 3.93 1.80-7.70 (K/uL) Final Lymphs, absolute 05/17/2021 09:09:36 1.27 1.00-4.80 (K/ul) Final Monos, Abs 05/17/2021 09:09:36 0.52 0.00-1.10 (K/uL) Final Eos, Abs 05/17/2021 09:09:36 0.11 0.00-0.70 (K/uL) Final Basos, Abs 05/17/2021 09:09:36 0.03 0.00-0.20 (K/uL) Final Immature Granulocytes, Number 05/17/2021 09:09:36 0.03 0.00-0.20 (K/uL) Final Performing Location LABORATORY [facility] - [facility] [place] [address]
--- OUTSIDE RECORDS SUMMARY | 2023-06-27 08:08 | External Medical Summary | Summary of Care ---
Author Name Unknown Organization [facility] Address [place], [place] [address] Care Team Providers Care Linux Unix System Administrator Name Role Phone Hortencia Hassan PA-C Primary Care Provide r Reason for Visit * Reason Comments NEW PATIENT Encounter Details Date Type Department Care Team Description 04/05/2021 Office Visit Urology, [facility] [place] [address] Via, Endy Daugherty PA-C [address] [facility] [address] [place] [address] Prostate [...] times a day. As needed 0 Active [place]-3 Fatty Acids (FISH OIL) 1000 MG Capsule [...] Christian PA-C - 04/05/2021 8:03 AM EDT [id number] PCP: HORTENCIA HASSAN [address] [facility], [place] [address] [phone] Heath Austin is a 75 year old [...] that he is following with nephrology at [facility]. He will be having a renal ultrasound [...] a large muscle. Indications: every 4 months [place]-3 Fatty Acids (FISH OIL) 1000 MG Capsule [...] DIAGNOSTIC performedby Roz Tracey MD at ENDOSCOPY [facility] KNEE ARTHROSCOPY, DIAGNOSTIC 1989 Knee Arthroscopy right NEEDLE/PUNCH BIOPSY OF PROSTATE 01/05/2011 BIOPSY PROSTATE NEEDLE performed by EYAD LANDRUM at [facility] PROSTATECTOMY, RETROPUBIC RADICAL, LAP 10/30/2011 ROBOTIC LAPAROSCOPIC PROSTATECTOMY RETROPUBIC RADICAL performed by EYAD LANDRUM at OR [facility] REMOVAL OF TONSILS, UNDER AGE 12 Tonsillectomy REPAIR INITIAL INCISIONAL HERNIA 04/18/2012 Laparoscopic ventral hernia repair with 4 x [address] Adams 04/18/12 US ECHO TRANSRECTAL/PROSTATE 01/05/2011 ULTRASOUND TRANSRECTAL performed by EYAD LANDRUM at [facility] Past Medical History: Diagnosis Date Benign neoplasm [...] Notes * Jenni Sequeira LPN - 04/05/2021 2:46 PM EDT Eliradha given SYD[place]. * Jenni Sequeira LPN - 04/05/2021 7:[address] Moon Nov 30. last eligarnasra 30 mg on Nov 30. Seeing rad / onc [place] [facility] nextappt May 25. Sees Dr Melo in hem/onc at [facility], last visit February 01. Pneumatic Tester is Dr Robledo with [facility]. Urinary complaints: Leakage if he waits too [...] Angela Herbert CRNP [address] [place] [address] [phone] 07/26/2021 Office Visit Urology Endy Christian PA-C [address] [address] [place] [address] 08/03/2021 Laboratory Laboratory Enrique Castañeda [facility] [address] [place] [address] [phone] 08/03/2021 Office Visit Hematology Oncology Nik Melo MD [address] [place] [address] [phone] Health Maintenance Due Date Last Done Comments [...] on File Type Date Recorded Patient Medical Officer Psychiatry Expl anation Advanced Directive Advanced Directive 01/03/2011 [...]
--- OUTSIDE RECORDS SUMMARY | 2023-06-27 08:08 | External Medical Summary | Summary of Care ---
Author Name Unknown Organization [facility] [place] [address] Care Team Providers Care Regional Dedicated Truck Driver Name Role Phone Hortencia Barraza PA-C Primary Care Provide r Encounter Details Date Type Department Care Team Description 05/13/2021 Abstract Gastroenterology, [facility] [address] [facility] [place] [address] Angela Herbert CRNP 132 [facility] [place] [address] [phone] Allergies Active Allergy Reactions Severity Noted Date Comments Amlodipine 11/02/2020 dizziness Codeine Sulfate Other (Please comment) 10/26/19 11 hyperactivity Hydrochlorothiazide 11/02/2020 hypercalcemia documented as of this encounter (statuses as of 05/13/2021) Medications Medication Sig Dispensed Refills Start Date [...] times a day. As needed 0 Active [place]-3 Fatty Acids (FISH OIL) 1000 MG Capsule Take 1,000 mg by mouth daily. 2 capsules by mouth twice daily 0 Active potassium citrate ER (UROCIT-K) 10 MEQ (1080 MG) TBCRIndications:Kidn ey stones,Kidney stone Take 1 Tab by mouth 3 times a day. With meals 270 Tab 3 05/02/2018 Active Additional Information Patient not taking. Reported on 04/05/2021 Alogliptin Benzoate 12.5 MG TABS Take 12.5 mg by mouth daily. 0 Active Acetaminophen 325 MG Oral Tablet (Tylenol) Take 325 mg by mouth every 6 hours as needed. 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 documented as of this encounter (statuses as of 05/13/2021) Social History Tobacco Use Types Packs/Day Years [...] Gastroenterology Angela Herbert CRNP [address] [place] [address] [phone] 07/26/2021 Office Visit Urology [place], Endy Daugherty PA-C [address] [place] [address] [phone] 08/03/2021 Laboratory Laboratory Enrique Castañeda [place] [address] [place] [address] [phone] 08/03/2021 Office Visit Hematology Oncology Nik Melo MD [address] [place] [address] [phone] Health Maintenance Due Date Last Done Comments [...] Documents on File Type Date Recorded Patient Chinchilla Farmer Expl anation Advanced Directive Advanced Directive 01/03/2011 [...]
--- OUTSIDE RECORDS SUMMARY | 2023-06-27 08:08 | External Medical Summary ---
Author Name Unknown Address Unknown Organization [id number]:[facility] [place] [facility] [place] [address] Laboratory Report Ordering Provider Test Date Status YVETTEAILINAFSHAN 05/17/2021 09:09:36 Final Observation Date Value Abnormality Reference (Units ) Status Retic, % (auto) 05/17/2021 09:09:36 4.79 Above high normal 0.80-1.90 (%) Final Reticulocytes, Absolute 05/17/2021 09:09:36 134.6 Above high normal 31.3-100.1 (K/uL) Final Reticulocyte HGB 05/17/2021 09:09:36 32.4 29.7-37.4 (pg) Final Performing Location [facility] [place] [facility] [place] [address]
--- OUTSIDE RECORDS SUMMARY | 2023-06-27 08:08 | External Medical Summary ---
Author Name Unknown Address Unknown Organization [id number][place] [place] [address] [place] [address] Laboratory Report Ordering Provider Test Date Status JOAQUIN CRAWFORD 05/17/2021 09:09:35 Final Observation Date Value Abnormality Reference (Units ) Status TSH 05/17/2021 09:09:35 1.42 0.27-4.20 (uIU/mL) Final Performing Location LABORATORY C - [address] [place] [address]
--- OUTSIDE RECORDS SUMMARY | 2023-06-27 08:08 | External Medical Summary ---
Author Name Unknown Address Unknown Organization [id number]:[facility] [place] - [address] [place] [address] Laboratory Report Ordering Provider Test Date Status YVETTEJOAQUIN 05/17/2021 09:09:35 Final Observation Date Value Abnormality Reference (Units ) Status Creatinine 05/17/2021 09:09:35 1.9 Above high normal 0.6-1.2 (mg/dL) Final Glomerular filtration rate/1.73 sq M.predicted [Volume Rate/Area] in Serum, Plasma or Blood by Creatinine-based formula (CKD-EPI) 05/17/2021 09:09:35 34.8 Below low normal >=60.0 (mL/min) Final Performing Location [facility] [place] - [address] [place] [address]
--- OUTSIDE RECORDS SUMMARY | 2023-06-27 08:08 | External Medical Summary | Summary of Care ---
Author Name Unknown Organization [facility] Address [place], [place] [address] Care Team Providers Care Surgical Attendant Name Role Phone Hortencia Hassan PA-C Primary Care Provide r Reason for Visit * Reason Comments NEW PATIENT Encounter Details Date Type Department Care Team Description 04/05/2021 Office Visit Urology, [facility] [place] [address] [address], Endy Daugherty PA-C [address] [facility] [address] [place] [address] Prostate [...] times a day. As needed 0 Active [place]-3 Fatty Acids (FISH OIL) 1000 MG Capsule [...] Christian PA-C - 04/05/2021 8:03 AM EDT [id number] PCP: HORTENCIA HASSAN [address] [facility], [place] [address] [phone] Heath Austin is a 75 year old [...] that he is following with nephrology at [facility]. He will be having a renal ultrasound [...] a large muscle. Indications: every 4 months [place]-3 Fatty Acids (FISH OIL) 1000 MG Capsule [...] DIAGNOSTIC performedby Roz Tracey MD at ENDOSCOPY [facility] KNEE ARTHROSCOPY, DIAGNOSTIC 1989 Knee Arthroscopy right NEEDLE/PUNCH BIOPSY OF PROSTATE 01/05/2011 BIOPSY PROSTATE NEEDLE performed by EYAD LANDRUM at [facility] PROSTATECTOMY, RETROPUBIC RADICAL, LAP 10/30/2011 ROBOTIC LAPAROSCOPIC PROSTATECTOMY RETROPUBIC RADICAL performed by EYAD LANDRUM at OR [facility] REMOVAL OF TONSILS, UNDER AGE 12 Tonsillectomy REPAIR INITIAL INCISIONAL HERNIA 04/18/2012 Laparoscopic ventral hernia repair with 4 x [address] Adams 04/18/12 US ECHO TRANSRECTAL/PROSTATE 01/05/2011 ULTRASOUND TRANSRECTAL performed by EYAD LANDRUM at [facility] Past Medical History: Diagnosis Date Benign [...] 30. Seeing rad / onc yearly through [facility] [place], nextappt May 25. Se[address] Melo in hem/onc at [facility], last visit February 01. Assistant Property Manager is Dr Robledo with [facility]. Urinary complaints: Leakage if he waits too [...] Angela Herbert CRNP [address] [place] [address] [phone] 07/26/2021 Office Visit Urology Endy Christian PA-C [address] [address] [place] [address] 08/03/2021 Laboratory Laboratory Enrique Castañeda [facility] [address] [place] [address] [phone] 08/03/2021 Office Visit Hematology Oncology Nik Melo MD [address] [place] [address] [phone] Health Maintenance Due Date Last Done Comments [...] Documents on File Type Date Recorded Patient Second Class Welder Expl anation Advanced Directive Advanced Directive [...]
--- OUTSIDE RECORDS SUMMARY | 2023-06-27 08:09 | External Medical Summary | Summary of Care ---
Author Name Unknown Organization [place] [address] Care Team Providers Care Cost Recovery Technician Name Role Phone Hortencia Barraza PA-C Primary Care Provide r Reason for Visit * Reason Onset Date Comments Appointment Canceled 11/22/2020 Encounter Details Date Type Department Care Team Description 11/22/2020 Telephone Hematology/Oncology [facility] [address] [facility] [address] Nik Melo MD [address] [place] [address] [phone] Appointment Canceled Allergies Active Allergy Reactions Severity Noted Date Comments Amlodipine 11/02/2020 dizziness Codeine Sulfate Other (Please comment) 10/26/19 11 hyperactivity Hydrochlorothiazide 11/02/2020 hypercalcemia documented as of this encounter (statuses as of 11/22/2020) Medications Medication Sig Dispensed Refills Start Date End Date Status LISINOPRIL 20 MG PO TABS one tab daily 0 Active METFORMIN ER 500 MG PO TB24 two tabs twice daily 0 Acti ve VITAMIN B-12 1000 MCG PO TABS one tablet daily 0 Active CIALIS 20 MG PO TABSIndications:Delilah gnant neoplasm of prostate (HCC) 1 TABLET DAILY NEEDED 10 Tab 6 11/29/2011 Active Additional Information Patient not taking. Reported on 02/05/2020 ATORVASTATIN CALCIUM 20 MG PO TABS one 1/2 pill each day at bedtime 0 Active Cholecalciferol (VITAMIN D-3) 1000 units Capsule Take 1,000 Units by mouth daily. 0 Active Aspirin 81 MG Tablet Take 81 mg by mouth daily. 0 Active meclizine (ANTIVERT) 12.5 MG Tablet Take 12.5 mg by mouth 2 times a day. As needed 0 Active [place]-3 Fatty Acids (FISH OIL) 1000 MG Capsule Take 1,000 mg by mouth daily. 2 capsules by mouth twice daily 0 Active Leuprolide Acetate, 3 Month, (LUPRON DEPOT-PED, 3-MONTH,) 30 MG (Ped) KITIndications:every 4 months Inject 30 mg into a large muscle. Indications: every 4 months 0 Active potassium citrate ER (UROCIT-K) 10 MEQ (1080 MG) TBCRIndications:Kidn ey stones,Kidney stone Take 1 Tab by mouth 3 times a day. With meals 270 Tab 3 05/02/2018 Active Alogliptin Benzoate 12.5 MG TABS Take by mouth. 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 Left number of [phone]. * Telephone Encounter - Bonny Barker OSA - 11/22/2020 9:26 AM EST Patient cancelled due to weather documented in this encounter Plan of Treatment Upcoming Encounters Date Type Specialty Care Team Description 11/30/2020 Nurse Only Urology Wade, Nurse Urology [facility] [address] [place] [address] [phone] 04/05/2021 Office Visit Urology Via, Endy Daugherty PA-C [address] [place] [address] Health Maintenance Due Date Last Done Comments DTaP,Tdap,and Td Vaccines (1 - Tdap) 1964 LIPID SCREEN EVERY 5 YRS-MEN AGE 35-75 1980 Zoster Vaccines (1 of 2) 12/29/1995 Pneumococcal Vaccine: 65+ Years (1 of 1 - PPSV23) 2010 *DEPRESSION SCREENING,ANNUAL FOR PTS 12 AND OVER 09/29/2016 Influenza Vaccine (FLU shot) (#1) 2020 08/21/2018, 07/26/2015, 10/22/2010 COLONOSCOPY-EVERY 3 YRS AGES 18-100 04/12/2021 04/12/2018, 04/12/2018, 03/07/2013, Additional history exists DIABETES SCREEN EVERY 3 YRS-AGE 45 AND ABOVE 11/21/2022 11/21/2019, 08/14/2017, 09/24/2014, Additional history exists MENINGOCOCCAL (MENACTRA/MENVEO) Aged Out No longer eligible based on patient's age to complete this topic documented as of this encounter Implants Not on filedocumented as of this encounter Advance Directives Documents on File Type Date Recorded Patient Mixer Slagman Expl anation Advanced Directive Advanced Directive 01/03/2011 [...]
--- OUTSIDE RECORDS SUMMARY | 2023-06-27 08:09 | External Medical Summary ---
Author Name Unknown Address Unknown Organization [id number]:LABORATORY [facility] [place] [address] - [address] [place] [address] Laboratory Report Ordering Provider Test Date Status DIMASHAY 01/24/2021 10:11:01 Final Observation Date Value Abnormality Reference (Units ) Status BUN 01/24/2021 10:11:01 32 Above high normal 6-20 (mg/dL) Final Creatinine 01/24/2021 10:11:01 1.9 Above high normal 0.6-1.2 (mg/dL) Final Glomerular filtration rate/1.73 sq M.predicted [Volume Rate/Area] in Serum, Plasma or Blood by Creatinine-based formula (CKD-EPI) 01/24/2021 10:11:01 34.2 Below low normal >=60.0 (mL/min) Final Performing Location LAB[facility]ATORY [facility] [address] - [address] [place] [address]
--- OUTSIDE RECORDS SUMMARY | 2023-06-27 08:09 | External Medical Summary | Summary of Care ---
Author Name Unknown Organization [place] [address] Care Team Providers Care Regional Director Of Finance Name Role Phone Hortencia Barraza PA-C Primary Care Provide r Reason for Visit * Reason Comments Follow Up 6w Encounter Details Date Type Department Care Team Description 02/01/2021 Office Visit Hematology/Oncology [facility] 200 [facility] [place] [id number] Nik Melo MD [facility] [place] [id number] Prostate cancer (HCC)* Allergies Active Allergy Reactions Severity Noted Date Comments Amlodipine 11/02/2020 dizziness Codeine Sulfate Other (Please comment) 10/26/19 11 hyperactivity Hydrochlorothiazide 11/02/2020 hypercalcemia documented as of this encounter (statuses as of 02/01/2021) Medications Medication Sig Dispensed Refills Start Date End Date Status LISINOPRIL 20 MG PO TABS one tab daily 0 Active METFORMIN ER 500 MG PO TB24 two tabs twice daily 0 Active VITAMIN B-12 1000 MCG PO TABS one tablet daily 0 Active ATORVASTATIN CALCIUM 20 MG PO TABS one 1/2 pill each day at bedtime 0 Active Cholecalciferol (VITAMIN D-3) 1000 units Capsule Take 1,000 Units by mouth daily. 0 Active Aspirin 81 MG Tablet Take 81 mg by mouth daily. 0 Active meclizine (ANTIVERT) 12.5 MG Tablet Take 12.5 mg by mouth 2 times a day. 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 documented as of this encounter (statuses as of 02/01/2021) Social History Tobacco Use Types Packs/Day Years Used Date Never Smoker Smokeless Tobacco: Never Used Alcohol Use Drinks/Week oz/Week Comments No Sex Assigned at Date Recorded Not on file Job Start Date Occupation Industry Not on file Not on file Not on file documented as of this encounter Last Filed Vital Signs Vital Sign Reading Time Taken Comments Blood Pressure 167/76 02/01/2021 11:48 AM EDT Pulse 83 02/01/2021 11:48 AM EDT Temperature 35.8 C (96.4 F) 02/01/2021 11:48 AM E DT Respiratory Rate 16 02/01/2021 11:48 AM EDT Oxygen Saturation 98% 02/01/2021 11:48 AM EDT Inhaled Oxygen Concentration - - Weight 87.7 kg (193 lb 6.4 oz) 02/01/2021 11:48 AM EDT Height - - Body Mass Index 35.95 12/20/2020 10:00 AM EST documented in this encounter Progress Notes * Nik Melo MD - 02/01/2021 11:50 AM EDT Outpatient Consult Note Data Source: Patient, Epic record. Data Source: Patient, Epic record. 02/01/2021 11:50 AM [place] [id number] 75 year old Patient Encounter: HEMATOLOGY/ONCOLOGY [facility] Cancer Diagnosis: History of prostate cancer now rising PSA Current Treatment: Eligard Previous Treatment: He received Lupron from 08/2017 till 05/2020 and then it was discontinued because of the side effects including loss of muscle mass, hot flashes and generalized fatigue Oncologic History : 75-year-old male with history of for prostate cancer was diagnosed in 2011 [...] 0.08 from less than 0.02. He was referred for further management. He was also started on Eligard injection and received the 1st dose on 11/30/2020. Clinically he is doing well without any new symptoms of complain. He denies any headache, dizziness, blurred vision, chest pain, shortness breath palpitation abdominal pain or distention, bleeding, bruising, hematuria, hematochezia. He has a history of chronic ribs and right lower extremity pain since the accident in 2017. He denies smoking or drinking. Family history significant for mother was diagnosed of breast cancer and father was diagnosed of colon cancer. Surgical pathology from 10/30/2011 Prostate gland with [...] size and separation, cribriform and papillary patterns [place] Score (primary + secondary) = 5-6: Moderately [...] and fused epithelium, can show clear cells [place] Score (primary + secondary) = 7: Moderately poorly differentiated [place] Score (primary + secondary) = 8-10: Poorly [...] High-grade prostatic intraepithelial neoplasia (PIN) Nodular hyperplasia Component Latest Ref Rng & Units 05/15/2017 12/20/2017 04/27/2018 09/11/2018 PSA <4.1 ng/mL 0.74 <0.02 <0.02 <0.02 Component Latest Ref Rng & Units 11/21/2019 02/24/2020 11/01/2020 PSA <4.1 ng/mL <0.02 <0.02 0.08 Interval History: Clinically he is doing well without any new symptoms of complain. Denies any chest pain, shortness of breath palpitation, abdominal pain or distention, bleeding, bruising, new bone pain, headache, blurred vision, nausea, vomiting, hematuria, hematochezia. REVIEW OF SYSTEMS: General: No Fever, chills, [...] bleeding Genitourinary: Denies Hematuria or dysuria Musculoskeletal: Stable joint pain Skin: No skin rash or lesions noted Neurologic: No numbness, weakness, neuropathic pain or change in cognitive function Psychiatric: No vegetative signs of depression Endocrine: No symptoms of hypothyroidism or hyperglycemia Hematologic: No bleeding or lymph nodes noted As mentioned above, all of the systems were reviewed in full and are unremarkable. 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 potassium citrate ER (UROCIT-K) 10 MEQ (1080 MG) TBCR Take 1 Tab by mouth 3 times a day. With [id number] Tab 3 Leuprolide Acetate, 3 Month, (LUPRON DEPOT-PED, 3-MONTH,) 30 MG (Ped) KIT Inject 30 mg into a largemuscle. Indications: every 4 months [place]-3 Fatty Acids (FISH OIL) 1000 MG Capsule [...] bedtime VITAMIN B-12 1000 MCG PO TABS one tablet daily LISINOPRIL 20 MG PO TABS one tab daily METFORMIN ER 500 MG PO TB24 two tabs twice daily Social History Tobacco Use Smoking status: Never Smoker Smokeless tobacco: Never Used Substance Use Topics Alcohol use: No Drug use: No Review of patient's allergies indicates: Allergen Reactions Amlodipine dizziness Codeine Sulfate Other (Please comment) hyperactivity Hctz [Hydrochlorothiazide] hypercalcemia PHYSICAL EXAMINATION: General Appearance: Healthy appearing patient in no acute distress BP 167/76 (BP Site: Left Arm, BP Position: Sitting, BP Cuff Size: Regular) | Pulse 83 | Temp 35.8 C (96.4 F) (Infrared ) | Resp 16 | Wt 87.7 kg (193 lb 6.4 oz) | SpO2 98% | BMI 35.95 kg/m | BSA1.95 m Vitals reviewed. HEENT: No oral or [...] Regular rate and rhythm, normal S1, S2, systolic murmurs, No rubs, gallops Abdomen: Soft, nontender, bowel sounds present, no appreciable hepatosplenomegaly, no palpable masses Extremeties: Good pulses bilaterally, no peripheral edema. Skin: Normal skin tone with no rash, petechiae, ecchymosis noted. Musculoskeletal: No pain on palpation over bony prominence, no edema, no evidence of gout, no jointor bony deformity Neurologic: Grossly intact LABS/IMAGING: Last blood test was done on 01/24/2021 in shows WBC count 5.7 hemoglobin 10.0 and platelet count 195. Creatinine was 1.9 and rest of the electrolytes were in acceptable range. PSA was less than 0.02 ASSESSMENT: 74-year-old male with history of prostate cancer initially was diagnosed in 2011 and underwent robotic assisted radical prostatectomy. Pathology was consistent with adenocarcinoma moderately differentiated overall Juan score was 3+ 4=7. Subsequently he did well until 2015 when he had a rise in the PSA and was treated with radiation therapy. He completed radiation therapy in 12/2015 and did well until 04/2017 when he had rise in the PSA level and was started on Lupron with normalization of the PSA level to less than 0.02. He received Lupron from 08/2017 till 05/2020 and then it was discontinued because of the side effects including loss of muscle mass, hot flashes and generalized fatigue. Most recent PSA was done on 11/01/2020 and shows increased to 0.08. Patient received 1 dose of Eligard on 12/11/2020. Clinically he is doing well and physical examination is unremarkable and stable. He has normalization of the PSA level after receiving Eligard. Discussed with the patient in detail about diagnosis and prognosis and reviewed all the available blood test result with him. He has anemia and rise in the creatinine. He has appointment with Nephrology and he will continue to follow the PCP for all other medical problems. PLAN: Continue Eligard. He will return to clinic for follow-up in 6 months with CBC, CMP and PSA. He willcontinue follow PCP and Nephrology for all other medical problems. The patient voiced understanding of all of [...] for further clarification, please direct questions to the provider listed above.) documented in this encounter Nursing Notes * Venecia Carlin, SPECIAL SKILLS OFFICER - 02/01/2021 11:48 AM EDT Patient identifed by name and [...] it for you? ALREADY ACTIVE Filed Vitals: 02/01/21 1148 BP: 167/76 Pulse: 83 Resp: 16 Temp: 35.8 C (96.4 F) TempSrc: Infrared SpO2: 98% Weight: 87.7 kg (193 lb 6.4 oz) documented in this encounter Plan of Treatment Upcoming Encounters Date Type Specialty Care Team Description 04/05/2021 Office Visit Urology Via, Endy Daugherty PA-C 27 [facility] [address] [place] [address] [phone] 08/03/2021 Laboratory Laboratory [facility] 200 [place] [address] [phone] 08/03/2021 Office Visit Hematology Oncology Nik Melo MD 200 [place] [address] [phone] Scheduled Orders Name Type Priority Associated Diagnoses Orde r Schedule CBC WITH WBC DIFFERENTIAL Lab Routine Prostate cancer (HCC) Expected: 08/03/2021, Expires: 09/03/2021 COMPREHENSIVE METABOLIC PANEL Lab Routine Prostate cancer (HCC) Expected: 08/03/2021, Expires: 09/03/2021 PSA Lab Routine Prostate cancer (HCC) Expected: 08/03/2021, Expires: 09/03/2021 Health Maintenance Due Date Last Done Comments [...] cancer (HCC)- Primary Malignant neoplasm of prostate documented in this encounter Advance Directives Documents on File Type Date Recorded Patient Slip Mixer Expl anation Advanced Directive Advanced Directive 01/03/2011 [...]
--- OUTSIDE RECORDS SUMMARY | 2023-06-27 08:09 | External Medical Summary | Summary of Care ---
Author Name Unknown Organization [place] [address] Care Team Providers Care Reinspector Name Role Phone Hortencia Barraza PA-C Primary Care Provide r Reason for Visit * Reason Onset Date Comments Appointment 04/01/2021 GI eval Encounter Details Date Type Department Care Team Description 04/01/2021 Telephone Gastroenterology, [facility] [address] [facility] [place] [address] Hortencia Barraza PA-C [address] [facility] [place] [phone] Appointment (GI eval) Allergies Active Allergy Reactions Severity Noted Date Comments Amlodipine 11/02/2020 dizziness Codeine Sulfate Other (Please comment) 10/26/19 11 hyperactivity Hydrochlorothiazide 11/02/2020 hypercalcemia documented as of this encounter (statuses as of 04/04/2021) Medications Medication Sig Dispensed Refills Start Date [...] times a day. 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 documented as of this encounter (statuses as of 04/04/2021) Social History Tobacco Use Types Packs/Day Years Used Date Never Smoker Smokeless Tobacco: Never Used Alcohol Use Drinks/Week oz/Week Comments No Sex Assigned at Date Recorded Not on file Job Start Date Occupation Industry Not on file Not on file Not on file documented as of this encounter Miscellaneous Notes * Telephone Encounter - Justo Hopson OSA - 04/04/2021 10:19 AM EDT 05/17 appt shola'd w/ Angela Herbert * Telephone Encounter - Justo Hopson OSA - 04/01/2021 1:23 PM EDT Faxed order received from PCP to schedule GI eval for anemia. Demographics updated, records to be scanned. LMcell for pt to return call to schedule. Please be sure to led[facility] for this appt. documented in this encounter Plan of Treatment Upcoming Encounters Date Type Specialty Care Team Description 04/05/2021 Office Visit Urology Endy Christian PA-C [address] [address] [id number] 05/17/2021 Office Visit Gastroenterology Angela Herbert CRNP [address] [address] [phone] 08/03/2021 Laboratory Laboratory [facility] [address] [place] [address] [phone] 08/03/2021 Office Visit Hematology Oncology Nik Melo MD [address] [place], [place] [id number] Health Maintenance Due Date Last Done Comments [...] Documents on File Type Date Recorded Patient Vitreo Retinal Surgeon Expl anation Advanced Directive Advanced Directive 01/03/2011 [...]
--- OUTSIDE RECORDS SUMMARY | 2023-06-27 08:09 | External Medical Summary | Summary of Care ---
Author Name Unknown Organization [facility] Address [facility] [place] [address] Care Team Providers Care Aviation Mechanic Name Role Phone Hortencia Barraza PA-C Primary Care Provide r Reason for Visit * Reason Onset Date Comments Appointment Canceled 11/22/2020 NEW PATIENT 11/22/2020 BUCK ESPINO APPT Encounter Details Date Type Department Care Team Description 11/22/2020 Telephone Hematology/Oncology [facility] 200 [facility] [place] [address] Nik Melo MD 200 [place] [address] [phone] Appointment Canceled; NEW PATIENT (BUCK SO... Allergies Active Allergy Reactions Severity Noted Date Comments Amlodipine 11/02/2020 dizziness Codeine Sulfate Other (Please comment) 10/26/19 11 hyperactivity Hydrochlorothiazide 11/02/2020 hypercalcemia documented as of this encounter (statuses as of 11/23/2020) Medications Medication Sig Dispensed Refills Start Date [...] times a day. 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 Patient is rescheduled for new patient ONC Appt with Dr. Melo on 12/07/20 * Telephone Encounter - Bonny Barker OSA - 11/22/2020 10:06 AM EST Called and lmom for patient to reschedule appt. Left number of [phone]. * Telephone Encounter - LuceroBonny OSA - 11/22/2020 9:26 AM EST Patient cancelled due to weather documented in this encounter Plan of Treatment Upcoming Encounters Date Type Specialty Care Team Description 11/30/2020 Nurse Only Urology Wade, Nurse Urology Soraya [address] [facility] [place] [address] 12/07/2020 Office Visit Hematology Oncology Nik Melo MD 200 [place] [address] [phone] 04/05/2021 Office Visit Urology Via, Endy Daugherty PA-C 27 [facility] [address] [address] Health Maintenance Due Date Last Done Comments DTaP,Tdap,and Td Vaccines (1 - Tdap) 1964 LIPID SCREEN EVERY 5 YRS-MEN AGE 35-75 1980 Zoster Vaccines (1 of 2) 12/29/1995 Pneumococcal Vaccine: 65+ Years (1 of 1 - PPSV23) 2010 *DEPRESSION SCREENING,ANNUAL FOR PTS 12 AND OVER 09/29/2016 Influenza Vaccine (FLU shot) (#1) 2020 08/21/2018, 07/26/2015, 10/22/2010 *BASIC METABOLIC PANEL (BMP) FOR HTN YEARLY 11/23/2020 COLONOSCOPY-EVERY 3 YRS AGES 18-100 04/12/2021 04/12/2018, [...] Documents on File Type Date Recorded Patient Executive Administrative Assistant Expl anation Advanced Directive Advanced Directive 01/03/2011 [...]
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
--- OUTSIDE RECORDS SUMMARY | 2023-06-27 08:09 | External Medical Summary | Summary of Care ---
Author Name Unknown Organization [place] [address] Care Team Providers Care User Interface Artist Name Role Phone Hortencia Barraza PA-C Primary Care Provide r Reason for Visit * Reason Onset Date Comments Appointment 04/01/2021 GI eval Encounter Details Date Type Department Care Team Description 04/01/2021 Telephone Gastroenterology, [facility] 132 [facility] [place] [address] Hortencia Barraza PA-C [address] [facility] [place] [phone] Appointment (GI eval) Allergies Active Allergy Reactions [...] times a day. As needed 0 Active [place]-3 Fatty Acids (FISH OIL) 1000 MG Capsule [...] encounter Miscellaneous Notes * Telephone Encounter - Norma Hu OSA - 04/04/2021 4:29 PM EDT Records scanned * Telephone Encounter - Justo Hopson OSA - 04/04/2021 10:19 AM EDT 05/17 appt tasha guillen/ Angela Herbert * Telephone Encounter - Justo [...] Office Visit Urology Endy Christian PA-C 27 [facility] [place] [address] [place] [address] 05/17/2021 Office Visit Gastroenterology Angela Herebrt CRNP 132 [facility] [place] [address] [phone] 08/03/2021 Laboratory Laboratory [facility] [address] [place] [address] [phone] 08/03/2021 Office Visit Hematology Oncology Lorie, Nik Vargas MD [address] [place], [place] [phone] Health Maintenance Due Date Last Done Comments [...] Documents on File Type Date Recorded Patient Acting Section Chief Expl anation Advanced Directive Advanced Directive 01/03/2011 [...]
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
--- OUTSIDE RECORDS SUMMARY | 2023-06-27 08:09 | External Medical Summary ---
Author Name Unknown Address Unknown Organization [facility] [address] [place] [address] Laboratory Report Ordering Provider Test Date Status SHAY CH 01/24/2021 10:11:01 Final Observation Date Value Abnormality Reference (Units ) Status SYNC LEUKOCYTES IN BLOOD BY AUTOMATED COUNT 01/24/2021 10:11:01 5.71 4.00-10.80 (K/uL) Final Segs 01/24/2021 10:11:01 63.0 40.0-75.0 (%) Final Lymphs % 01/24/2021 10:11:01 24.0 18.0-42.0 (%) Final Monos 01/24/2021 10:11:01 9.6 1.0-11.0 (%) Final Eosinophils 01/24/2021 10:11:01 3.0 0.0-6.0 (%) Final Basos 01/24/2021 10:11:01 0.4 0.0-2.0 (%) Final Absolute Segs 01/24/2021 10:11:01 3.60 1.80-7.70 (K/uL) Final Lymphs, absolute 01/24/2021 10:11:01 1.37 1.00-4.80 (K/ul) Final Monos, Abs 01/24/2021 10:11:01 0.55 0.00-1.10 (K/uL) Final Eos, Abs 01/24/2021 10:11:01 0.17 0.00-0.70 (K/uL) Final Basos, Abs 01/24/2021 10:11:01 0.02 0.00-0.20 (K/uL) Final [facility] Location [facility] [address] [facility] [address] [place] [address]
--- OUTSIDE RECORDS SUMMARY | 2023-06-27 08:09 | External Medical Summary ---
Author Name Unknown Address Unknown Organization [facility] [address] - [address] [place] [address] Laboratory Report Ordering Provider Test Date Status SHAY CH 01/24/2021 10:11:01 Final Observation Date Value Abnormality Reference (Units ) Status WBC, Total 01/24/2021 10:11:01 5.71 4.00-10.8 0 (K/uL) Final RBC 01/24/2021 10:11:01 3.19 Below low normal 4.5 0-5.25 (M/uL) Final Hemoglobin 01/24/2021 10:11:01 10.0 Below low normal 14 .0-16.8 (g/dL) Final HCT 01/24/2021 10:11:01 32.1 Below low normal 40. 0-48.4 (%) Final MCV 01/24/2021 10:11:01 100.6 Above high normal 82 .0-99.5 (fL) Final MCH 01/24/2021 10:11:01 31.3 27.0-34.0 (pg) Final MCHC 01/24/2021 10:11:01 31.2 Below low normal 32. 0-36.0 (g/dL) Final RDW 01/24/2021 10:11:01 14.8 11.5-15.5 (%) Final Platelets 01/24/2021 10:11:01 195 140-400 (K /uL) Final MPV 01/24/2021 10:11:01 8.9 6.6-11.1 ( fL) Final Performing Location [facility] [place] [address]
--- OUTSIDE RECORDS SUMMARY | 2023-06-27 08:09 | External Medical Summary | Summary of Care ---
Author Name Unknown Organization [facility] Address [place], [place] [address] Care Team Providers Care It Sales Representative Name Role Phone Hortencia Hassan PA-C Primary Care Provide r Reason for Visit * Reason Comments NEW PATIENT Encounter Details Date Type Department Care Team Description 04/05/2021 [facility] [place] [address] Via, Endy [...] times a day. As needed 0 Active [place]-3 Fatty Acids (FISH OIL) 1000 MG Capsule [...] (HCC) 30 mg SC ONCE 04/05/2021 04/05/2021 Active documented as of this encounter (statuses [...] Christian PA-C - 04/05/2021 8:03 AM EDT [id number] PCP: HORTENCIA HASSAN [address], [place] [address] [phone] Heath Austin is a 75 year old [...] that he is following with nephrology at [facility]. He will be having a renal [...] a large muscle. Indications: every 4 months [place]-3 Fatty Acids (FISH OIL) 1000 MG Capsule [...] DIAGNOSTIC performedby Roz Tracey MD at [facility]COPY [facility] KNEE ARTHROSCOPY, DIAGNOSTIC 1989 Knee Arthroscopy right NEEDLE/PUNCH BIOPSY OF PROSTATE 01/05/2011 BIOPSY PROSTATE NEEDLE performed by EYAD LANDRUM at [facility] PROSTATECTOMY, RETROPUBIC RADICAL, LAP 10/30/2011 ROBOTIC LAPAROSCOPIC PROSTATECTOMY RETROPUBIC RADICAL performed by EYAD LANDRUM at [facility] REMOVAL OF TONSILS, UNDER AGE 12 Tonsillectomy REPAIR INITIAL INCISIONAL HERNIA 04/18/2012 Laparoscopic ventral hernia repair with 4 x [address] Adams 04/18/12 US ECHO TRANSRECTAL/PROSTATE 01/05/2011 ULTRASOUND TRANSRECTAL performed by EYAD LANDRUM at [facility] Past Medical History: Diagnosis Date Benign neoplasm [...] 30. Seeing rad / onc yearly through [facility], nextappt May 25. Sees Dr Melo in hem/onc at [facility], last visit February 01. Cat Dog Or Other Pet Groomer is Dr Robledo with [facility]. Urinary complaints: Leakage if he waits too [...] Angela Herbert CRNP [address] [place] [address] [phone] 07/26/2021 Office Visit Urology Endy Christian PA-C 27 [facility] [address] [place] [address] [phone] 08/03/2021 Laboratory Laboratory [facility] [address] [facility] [address] [phone] 08/03/2021 Office Visit Hematology Oncology Nik Melo MD 200 [place] [address] [phone] Health Maintenance Due Date Last Done Comments [...] Documents on File Type Date Recorded Patient Tool Crib Clerk Expl anation Advanced Directive Advanced Directive [...]
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
--- OUTSIDE RECORDS SUMMARY | 2023-06-27 08:09 | External Medical Summary ---
Author Name Unknown Address Unknown Organization K01:[facility] [place] [address] [place] [address] Laboratory Report Ordering Provider Test Date Status SHAY CH 01/24/2021 10:11:01 Final Observation Date Value Abnormality Reference (Units ) Status PSA 01/24/2021 10:11:01 <0.02 <4.10 (ng/ mL) Final Performing Location [facility] [place] [address] [place] [address]
--- OUTSIDE RECORDS SUMMARY | 2023-06-27 08:10 | External Medical Summary ---
Author Name Unknown Address [facility] [address] [place] [id number] Phone Organization K01:[place] [id number] Laboratory Report Ordering Provider Test Date Status RUTH MANZANO 02/24/2020 09:52:00 Final Observation Date Value Abnormality Reference (Units ) Status PSA 02/24/2020 18:00 <0.02 <4.1 (ng/mL) Final Performing Location [address] [address]
--- OUTSIDE RECORDS SUMMARY | 2023-06-27 08:10 | External Medical Summary | Summary of Care ---
Author Name Unknown Organization [place] [address] Care Team Providers Care Home Mission Worker Name Role Phone Hortencia Barraza PA-C Primary Care Provide r Encounter Details Date Type Department Care Team Description 10/20/2019 Orders Only Neurology [facility] [address] [place] [address] Zeina Rasmussen MD [address] [place] [address] [phone] Allergies Active Allergy Reactions Severity Noted Date Comments Codeine Sulfate Other (Please comment) 10/26/19 11 hyperactivity documented as of this encounter (statuses as of 12/03/2019) Medications Medication Sig Dispensed Refills Start Date End Date Status LISINOPRIL 20 MG PO TABS one tab daily 0 Active METFORMIN ER 500 MG PO TB24 two tabs twice daily 0 Active VITAMIN B-12 1000 MCG PO TABS one tablet daily 0 Active CIALIS 20 MG PO TABSIndications:Dulce nant neoplasm of prostate (HCC) 1 TABLET DAILY NEEDED 10 Tab 6 11/29/2011 Active ATORVASTATIN CALCIUM 20 MG PO TABS one 1/2 pill each day at bedtime 0 Active Cholecalciferol (VITAMIN D-3) 1000 units Capsule Take 1,000 Units by mouth daily. 0 Active Aspirin 81 MG Tablet Take 81 mg by mouth daily. 0 Active meclizine (ANTIVERT) 12.5 MG Tablet Take 12.5 mg by mouth 2 times a day. 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 documented as of this encounter (statuses as of 12/03/2019) Social History Tobacco Use Types Packs/Day Years Used Date Never Smoker Smokeless Tobacco: Never Used Alcohol Use Drinks/Week oz/Week Comments No Sex Assigned at Date Recorded Not on file Job Start Date Occupation Industry Not on file Not on file Not on file Travel History Travel Start Travel End documented as of this encounter Plan of Treatment Upcoming Encounters Date Type Specialty Care Team Description 02/23/2020 Office Visit Urology Steffi Moon MD [address] [place] [address] [phone] Health Maintenance Due Date Last Done Comments DTaP,Tdap,and Td Vaccines (1 - Tdap) 1956 LIPID SCREEN EVERY 5 YRS-MEN AGE 35-75 1980 Zoster Vaccines (1 of 2) 12/29/1995 Pneumococcal Vaccine: 65+ Years (1 of 2 - PCV13) 2010 *DEPRESSION SCREENING,ANNUAL FOR PTS 12 AND OVER 09/29/2016 Influenza Vaccine (FLU shot) (#1) 2019 COLONOSCOPY-EVERY 3 YRS AGES 18-100 04/12/2021 04/12/2018, 04/12/2018, 03/07/2013, Additional history exists DIABETES SCREEN EVERY 3 YRS-AGE 45 AND ABOVE 11/21/2022 11/21/2019, 08/14/2017, 09/24/2014, Additional history exists MENINGOCOCCAL (MENACTRA/MENVEO) Aged Out No longer eligible based on patient's age to complete this topic documented as of this encounter Implants Not on filedocumented as of this encounter Procedures Procedure Name Priority Date/Time Associated Diagnosis Comments RADIOLOGY EXAM - CT (IMAGES ONLY, NO REPORT) Routine 10/20/2019 1:30 PM EST documented in this encounter Results * RADIOLOGY EXAM - CT (IMAGES ONLY, NO REPORT) (10/20/2019 1:30 PM EST) Specimen Narrative Performed At This is an imaging study not interpreted or resulted by a [facility] or [facility] contracted radiologist documented in this encounter Advance Directives Documents on File Type Date Recorded Patient Police Officer Expl anation Advanced Directive Advanced Directive [...]
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
--- OUTSIDE RECORDS SUMMARY | 2023-06-27 08:10 | External Medical Summary | Summary of Care ---
Author Name Unknown Organization [place] [address] Care Team Providers Care Yard Hand Name Role Phone Hortencia Barraza PA-C Primary Care Provide r Reason for Visit * Reason Comments Advice Encounter Details Date Type Department Care Team Description 12/03/2019 Telephone Neurology [facility] [address] [place] [address] Zeina Rasmussen MD [address] [place] [address] [phone] Advice Allergies Active Allergy Reactions Severity Noted [...] 0 Active CIALIS 20 MG PO TABSIndications:Dulce trevinot neoplasm of prostate (HCC) 1 TABLET DAILY [...] times a day. As needed 0 Active [place]-3 Fatty Acids (FISH OIL) 1000 MG Capsule [...] Travel End documented as of this encounter Miscellaneous Notes * Telephone Encounter - Angella Lara LPN - 12/03/2019 11:01 AM EST Faxed office note to [employer] at number below. * Telephone Encounter - Wilma Mandujano OSA - 12/03/2019 9:52 AM EST Caller requesting the following information to be faxed: Name/Company of caller: [employer] Information requested to be faxed: OV note from 12/01/2019 Fax number: [phone] Attention to Name/Company: [employer] Any additional information?: documented in this encounter Plan of Treatment Upcoming Encounters Date Type Specialty Care Team Description 02/23/2020 Office Visit Urology Steffi Moon MD [address] [place] [address] [phone] Health Maintenance Due Date Last Done Comments [...] Documents on File Type Date Recorded Patient Auto Electrical Technician Expl anation Advanced Directive Advanced Directive [...]
--- OUTSIDE RECORDS SUMMARY | 2023-06-27 08:10 | External Medical Summary ---
Author Name Unknown Address [facility] [place] [address] Phone Organization K01:[place] [id number] Laboratory Report Ordering Provider Test Date Status ANEUDY MANZANOS 11/01/2020 10:00:00 Final Observation Date Value Abnormality Reference (Units ) Status PSA 11/01/2020 22:30 0.08 <4.1 (ng/mL) Final Performing Location [place] [id number]
--- OUTSIDE RECORDS SUMMARY | 2023-06-27 08:10 | External Medical Summary | Summary of Care ---
Author Name Unknown Organization [place] [address] Care Team Providers Care Bicycle Technician Name Role Phone Hortencia Barraza PA-C Primary Care Provide r Encounter Details Date Type Department Care Team Description 10/20/2019 Orders Only Neurology [facility] [address] [place] [address] Zeina Rasmussen MD [address] [place] [address] [phone] Allergies Active Allergy Reactions Severity Noted Date [...] Steffi Moon MD [address] [place] [address] [phone] Health Maintenance Due Date Last Done Comments [...] CT (IMAGES ONLY, NO REPORT) Routine 10/20/2019 1:25 PM EST documented in this encounter Results * RADIOLOGY EXAM - CT (IMAGES ONLY, NO REPORT) (10/20/2019 1:25 PM EST) Specimen Narrative Performed At This is an imaging study not interpreted or resulted by a [facility] or [facility] contracted radiologist documented in this encounter Advance Directives Documents on File Type Date Recorded Patient Ripsaw Matcher Expl anation Advanced Directive Advanced Directive 01/03/2011 [...]
--- OUTSIDE RECORDS SUMMARY | 2023-06-27 08:10 | External Medical Summary | Summary of Care ---
Author Name Unknown Organization [place] [address] Care Team Providers Care Pediatric Acute Care Unit Nurse Name Role Phone Hortencia Barraza PA-C Primary Care Provide r Encounter Details Date Type Department Care Team Description 06/23/2020 Orders Only Outcomes Research Department [address] [place] [address] [place] Harrell CHRA [id number] Research Other*[id number] Allergies Active Allergy Reactions Severity Noted Date Comments Codeine Sulfate Other (Please comment) 10/26/19 11 hyperactivity documented as of this encounter (statuses as of 06/23/2020) Medications Medication Sig Dispensed Refills Start Date [...] Information Patient not taking. Reported on 02/05/2020 9:35 AM ATORVASTATIN CALCIUM 20 MG PO TABS one 1/2 pill each day at bedtime 0 Active Cholecalciferol (VITAMIN D-3) 1000 units Capsule Take 1,000 Units by mouth daily. 0 Active Aspirin 81 MG Tablet Take 81 mg by mouth daily. 0 Active meclizine (ANTIVERT) 12.5 MG Tablet Take 12.5 mg by mouth 2 times a day. 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 [place] [address] [phone] Scheduled Orders Name Type Priority Associated Diagnoses Orde r Schedule MYCODE SUBSEQUENT ADULT Lab Routine MyCode Research Other*[id number] Every 6 Months for 2 Occurrences starting 06/23/2020 until 07/13/2021 Health Maintenance Due Date Last Done Comments DTaP,Tdap,and Td Vaccines (1 - Tdap) 1956 LIPID SCREEN EVERY 5 YRS-MEN AGE 35-75 1980 Zoster Vaccines (1 of 2) 12/29/1995 Pneumococcal Vaccine: 65+ Years (1 of 2 - PCV13) 2010 *DEPRESSION SCREENING,ANNUAL FOR PTS 12 AND OVER 09/29/2016 Influenza Vaccine (FLU shot) (#1) 2020 COLONOSCOPY-EVERY 3 YRS AGES 18-100 04/12/2021 04/12/2018, 04/12/2018, 03/07/2013, Additional history exists DIABETES SCREEN EVERY 3 YRS-AGE 45 AND ABOVE 11/21/2022 11/21/2019, 08/14/2017, 09/24/2014, Additional history exists MENINGOCOCCAL (MENACTRA/MENVEO) Aged Out No longer eligible based on patient's age to complete this topic documented as of this encounter Implants Not on filedocumented as of this encounter Visit Diagnoses Diagnosis MyCode Research Other*[id number] documented in this encounter Advance Directives Documents on File Type Date Recorded Patient Outside Dealer Sales Representative Expl anation Advanced Directive Advanced [...]
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
--- OUTSIDE RECORDS SUMMARY | 2023-06-27 08:10 | External Medical Summary | Summary of Care ---
Author Name Unknown Organization [place] [address] Care Team Providers Care Mica Plate Layer Name Role Phone Hortencia Barraza PA-C Primary Care Provide r Encounter Details Date Type Department Care Team Description 02/02/2020 Telephone Urology, [facility] [address] [facility] [place] [address] Steffi Moon MD [address] [facility] [place] [address] [phone] Allergies Active Allergy Reactions Severity Noted Date Comments Codeine Sulfate Other (Please comment) 10/26/19 11 hyperactivity documented as of this encounter (statuses as of 02/02/2020) Medications Medication Sig Dispensed Refills Start Date [...] times a day. 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 Moon on 02/23/20 due to coronavirus. Looking to make appt into a telephone or telemed visit. Message also sent via [employer]. documented in this encounter Plan of Treatment Upcoming Encounters Date Type Specialty Care Team Description 02/23/2020 Office Visit Urology Steffi Moon MD [address] [facility] [place] [address] Health Maintenance Due Date Last Done [...] Documents on File Type Date Recorded Patient Outsole Flexer Expl anation Advanced Directive Advanced Directive 01/03/2011 [...]
--- OUTSIDE RECORDS SUMMARY | 2023-06-27 08:10 | External Medical Summary | Summary of Care ---
Author Name Unknown Organization [place] [address] Care Team Providers Care Carrier Driver Name Role Phone Hortencia Barraza PA-C Primary Care Provide r Reason for Visit * Reason Onset Date Comments Appointment Canceled 11/22/2020 Encounter Details Date Type Department Care Team Description 11/22/2020 Telephone [facility]ology[facility] [address] [facility] [address] Nik Melo MD [address] [place] [address] [phone] Appointment Canceled Allergies Active Allergy Reactions Severity [...] times a day. As needed 0 Active [place]-3 Fatty Acids (FISH OIL) 1000 MG Capsule [...] Care Team Description 11/30/2020 Nurse Only Urology Nurse [facility] [address] [facility] [place] [address] 04/05/2021 Office Visit Urology Via, Endy Daugherty PA-C [address] [facility] [address] [place] [address] Health Maintenance [...] Documents on File Type Date Recorded Patient Etiquette Coach Expl anation Advanced Directive Advanced Directive 01/03/2011 [...]
--- OUTSIDE RECORDS SUMMARY | 2023-06-27 08:10 | External Medical Summary | Summary of Care ---
Author Name Unknown Organization [facility] Address [place] [address] Care Team Providers Care Spool Worker Name Role Phone Hortencia Barraza PA-C Primary Care Provide r Reason for Visit * Reason Comments Medication Refill Encounter Details Date Type Department Care Team Description 09/03/2019 Refill Urology, [facility] [address] [place] [address] Steffi Moon MD [address] [place] [address] [phone] Kidney stones; Kidney stone Allergies Active Allergy Reactions Severity Noted Date Comments Codeine Sulfate Other (Please comment) 10/26/19 11 hyperactivity documented as of this encounter (statuses as of 12/22/2019) Medications Medication Sig Dispensed Refills Start Date End Date Status LISINOPRIL 20 MG PO TABS one tab daily 0 Active METFORMIN ER 500 MG PO TB24 two tabs twice daily 0 Active VITAMIN B-12 1000 MCG PO TABS one tablet daily 0 Active CIALIS 20 MG PO TABSIndications:Dulce azevedo neoplasm of prostate (HCC) 1 TABLET DAILY [...] times a day. 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 dont think he needs refill Steffi Moon MD * Telephone Encounter - Matt Garcia RN - 09/03/2019 7:20 AM EST Pending Prescriptions: Disp Refills potassium citrate ER (UROCIT-K) 10 MEQ (1*270 Tab3 Sig: Take 1 Tab by mouth 3 times a day. With meals Review of patient's allergies indicates: Allergen Reactions Codeine Sulfate Other (Please comment) hyperactivity Last Office Visit: 03/25/2019 documented in this encounter Plan of Treatment Upcoming Encounters Date Type Specialty Care Team Description 02/23/2020 Office Visit Urology Steffi Moon MD [address] [place] [address] [phone] Health Maintenance Due Date Last Done Comments [...] as of this encounter Visit Diagnoses Diagnosis Kidney stones Calculus of kidney Kidney stone Calculus of kidney documented in this encounter Advance Directives Documents on File Type Date Recorded Patient Sole Leveler Machine Expl anation Advanced Directive Advanced Directive 01/03/2011 [...]
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
--- OUTSIDE RECORDS SUMMARY | 2023-06-27 08:11 | External Medical Summary ---
Author Name Unknown Address [facility] [place] [facility] [place] [id number] Phone Organization K01:[place] [address] [address] [place] [id number] Laboratory Report Ordering Provider Test Date Status RUTH MANZANO 09/11/2018 09:41:00 Final Observation Date Value Abnormality Reference Status PSA 09/11/2018 18:33 <0.02 <4.1 Fin al Performing Location [address] [address]
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
--- OUTSIDE RECORDS SUMMARY | 2023-06-27 08:11 | External Medical Summary ---
Author Name Unknown Address [facility] [place] [id number] Phone Organization K01:[place] [address] [address] [id number] Laboratory Report Ordering Provider Test Date Status JOSE JUANGOSIA ROOTMONS 11/21/2019 09:43:00 Final Observation Date Value Abnormality Reference (Units ) Status PSA 11/21/2019 16:44 <0.02 <4.1 (ng/mL) Final Performing Location [address] [address]
--- OUTSIDE RECORDS SUMMARY | 2023-06-27 08:11 | External Medical Summary | Summary of Care ---
Author Name Unknown Organization [facility] Address [facility] [place] [address] Care Team Providers Care Clinical Coder Name Role Phone Hortencia Barraza PA-C Primary Care Provide r Reason for Visit * Reason Comments Order Request Encounter Details Date Type Department Care Team Description 09/05/2019 Telephone Urology, [facility] [address] [facility] [place] [address] Steffi Moon MD [address] [facility] [place] [address] [phone] Order Request Allergies Active Allergy Reactions Severity Noted Date Comments Codeine Sulfate Other (Please comment) 10/26/19 11 hyperactivity documented as of this encounter (statuses as of 09/11/2019) Medications Medication Sig Dispensed Refills Start Date [...] times a day. As needed 0 Active [place]-3 Fatty Acids (FISH OIL) 1000 MG Capsule [...] as of this encounter (statuses as of 09/11/2019) Active Problems Problem Noted Date Prostate cancer 12/31/2013 Other ventral hernia without mention of obstruction or gangrene 05/03/2012 documented as of this encounter (statuses as of 09/11/2019) Resolved Problems Problem Noted Date Resolved Date Elevated prostate specific antigen (PSA) 011 12/31/2013 BPH with obstruction/lower urinary tract symptom s 10/26/2010 12/31/2013 documented as of this encounter (statuses as of 09/11/2019) Social History Tobacco Use Types Packs/Day Years Used Date Never Smoker Smokeless Tobacco: Never Used Alcohol Use Drinks/Week oz/Week Comments No Sex Assigned at Date Recorded Not on file Job Start Date Occupation Industry Not on file Not on file Not on file Travel History Travel Start Travel End documented as of this encounter Miscellaneous Notes * Telephone Encounter - Matt Garcia RN - 09/11/2019 11:43 AM EST Spoke to patient yesterday on 09/10/[address] Moon does not want him taking the Potassium Citrate and he doesn't need to get it refilled. He stated he understood. * Telephone Encounter - Dasha Yuen OSA - 09/05/2019 9:25 AM EST My last note indicates he is no longer taking urocit K Thus no refills Steffi Moon MD Pt calling for an order request and medication refill. An order was requested for this patient. Name of Requesting Provider: Patient Order Requested: PSA Diagnosis/Reason for Request: Needs to get it done prior to his appt in October Does the order need to be faxed somewhere? If so, where?: n/a Fax Number, if applicable: n/a Call Back Number: [phone] A medication prescription change, dosage change, or quantity change was requested for this patient. Name of Requestor: Patient Medication: Potassium Citrate Reason for request: pt will be out of it next Current dose (if applicable): 1080 MG Dose requested (if applicable): n/a Current quantity (if applicable): 270 tab, 3 refills Quantity requested (if applicable): n/a Preferred pharmacy: [facility] documented in this encounter Plan of Treatment Upcoming Encounters Date Type Specialty Care Team Description 10/30/2019 Office Visit Urology Steffi Moon MD [address] [place] [address] [place] [address] [phone] Health Maintenance Due Date Last Done Comments DTaP,Tdap,and Td Vaccines (1 - Tdap) 1956 LIPID SCREEN EVERY 5 YRS-MEN AGE 35-75 1980 Pneumococcal Vaccine: 65+ Years (1 of 2 - PCV13) 2010 *DEPRESSION SCREENING,ANNUAL FOR PTS 12 AND OVER 09/29/2016 *BASIC METABOLIC PANEL (BMP) FOR HTN YEARLY 08/16/2018 Influenza Vaccine (FLU shot) (#1) 2019 08/21/2018, 07/14/2017, 07/06/2016, Additional history exists DIABETES SCREEN EVERY 3 YRS-AGE 45 AND ABOVE 08/14/2020 08/14/2017, 09/24/2014, 09/15/2014, Additional history exists COLONOSCOPY-EVERY 3 YRS AGES 18-100 04/12/2021 04/12/2018, 04/12/2018, 03/07/2013, Additional history exists MENINGOCOCCAL (MENACTRA) Aged Out No longer eligible based on patient's age to complete this topic documented as of this encounter Implants Not on filedocumented as of this encounter Visit Diagnoses Diagnosis Kidney stones Calculus of kidney Kidney stone Calculus of kidney documented in this encounter Advance Directives Documents on File Type Date Recorded Patient Cna Hha Expl anation Advanced Directive Advanced Directive 01/03/2011 [...]
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
--- OUTSIDE RECORDS SUMMARY | 2023-06-27 08:11 | External Medical Summary ---
Author Name UNSPECIFIED Organization [facility] History of Encounters Reason for Assessment: Discharge from [facility] Date of Last Home Visit: 07/15/2018 Inpatient Facility where the patient been admitted: No inpatient facility admission Discharge Disposition: Patient remained in the community (without formal assistive services) Functional Assessment Frequency Of Pain Interferin g With Patient's Activity Or Movement: Patient has pain that does not interfere with activity or movement Bowel Incontinence Frequency: Very rarel y or never has bowel incontinence Cognitive and Behavioral and Psychiatric Symptoms: None Current Ability: Bathing: With the use o f devices, is able to bathe self in shower or tub independently, including getting in and out of the tub/shower. Current Ability: Ambulation: With the us e of a one-handed device (e.g. cane, single crutch, saurav-walker), able to independently walk on even and uneven surfaces and negotiate stairs with or without railings. Current: Management Of Oral Medications: Able to independently take the correct oral medication(s) and proper dosage(s) at the correct time
--- OUTSIDE RECORDS SUMMARY | 2023-06-27 08:11 | External Medical Summary | Summary of Care ---
Author Name Unknown Organization [facility] Address [facility] [place] [address] Care Team Providers Care Human Resource Internship Name Role Phone Hortencia Barraza PA-C Primary Care Provide r Reason for Visit * Reason Comments Appointment Encounter Details Date Type Department Care Team Description 10/31/2019 Telephone Urology, [facility] [address] [facility] [place] [address] Steffi Moon MD 132 [facility] [place] [address] [phone] Appointment Allergies Active Allergy Reactions Severity Noted Date Comments Codeine Sulfate Other (Please comment) 10/26/19 11 hyperactivity documented as of this encounter (statuses as of 10/31/2019) Medications Medication Sig Dispensed Refills Start Date End Date Status LISINOPRIL 20 MG PO TABS one tab daily 0 Active METFORMIN ER 500 MG PO TB24 two tabs twice daily 0 Active VITAMIN B-12 1000 MCG PO TABS one tablet daily 0 Active CIALIS 20 MG PO TABSIndications:Mallala nant neoplasm of prostate (HCC) 1 TABLET [...] times a day. 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 He was scheduled for a 3m Lupron injected and I called to get him rescheduled and he stated he has been going down hill since his last injection and would like to come in and talk to Dr. Moon about stopping the injecting. I told him I have a slot open on 11/25/19 at 8:15 and he agreed to this time and date and I will let the demonstrator sales know on Sunday to schedule him. documented in this encounter Plan of Treatment Upcoming Encounters Date Type Specialty Care Team Description 01/13/2020 Office Visit Urology Steffi Moon MD [address] [facility] [place] [address] [phone] Health Maintenance Due Date Last Done Comments [...] Documents on File Type Date Recorded Patient Chronometer Repairer Expl anation Advanced Directive Advanced Directive [...]
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
--- OUTSIDE RECORDS SUMMARY | 2023-06-27 08:11 | External Medical Summary ---
Author Name UNSPECIFIED Organization [facility] History of Encounters Reason for Assessment: Start of care - f urther visits planned Inpatient discharge facility: Past 14 Da ys: Discharged From Short Stay Acute Hospital Most Recent Inpatient Discharge Date: Functional Assessment High Risk Factor: Obesity Patient Living Situation: Patient lives with other person(s) in the home: Around the clock Frequency Of Pain Interferin g With Patient's Activity Or Movement: Daily, but not constantly Does this patient have a Ris k of Developing Pressure Ulcers: No Bowel Incontinence Frequency: Very rarel y or never has bowel incontinence When Anxious (Reported or Observed): Jennifer ly, but not constantly Cognitive and Behavioral and Psychiatric Symptoms: None Current Ability: Bathing: able to partic ipate in bathing self in shower or tub, but requires presence of another person throughout the bath for assistance or supervision. Current Ability: Ambulation: With the us e of a one-handed device (e.g. cane, single crutch, saurav-walker), able to independently walk on even and uneven surfaces and negotiate stairs with or without railings. Has Patient Had A Multi-fact or Fall Risk Assessment? Yes, and it indicates a risk for falls Current: Management Of Oral Medications: Able to independently take the correct oral medication(s) and proper dosage(s) at the correct time Current: Management Of Injec table Medications: Unable to take injectable medication unl ess administered by another person. How Often Recv ADL Or IADL A ssistance From Any: At least daily Procedures Regimen Change in Past 14 Da ys: ICD Code 1: S32.008D, Oth fracture of unsp lum vertebra, subs for fx w routn heal Regimen Change in Past 14 Da ys: ICD Code 2: S22.009D, Unsp fx unsp thor vertebra, smalls bs for fx w routn heal Regimen Change in Past 14 Da ys: ICD Code 3: S22.42XD, Multiple fx of ribs, left side , subs for fx w routn heal Regimen Change in Past 14 Da ys: ICD Code 4: S01.01XD, Laceration without foreign bod y of scalp, subs encntr Regimen Change In Past 14 Da ys: ICD Code 5: S80.212D, Abrasion, left knee, subsequen t encounter Regimen Change In Past 14 Da ys: ICD Code 6: S90.512D, Abrasion, left ankle, subseque nt encounter Therapies Received at Home: None Problems Primary Home Care Diagnosis ICD Code: S3 2.008D, Oth fracture of unsp lum vertebra, subs for fx w routn heal Home Care Diagnosis 1: ICD Code: S22.009 D, Unsp fx unsp thor vertebra, subs for fx w routn heal Home Care Diagnosis 1: Severity Ratin Home Care Diagnosis 2: ICD Code: S22.42X A, Multiple fractures of ribs, left side, init for clos fx Home Care Diagnosis 2: Severity Ratin Home Care Diagnosis 3: ICD Code: S01.01X D, Laceration without foreign body of scalp, subs encntr Home Care Diagnosis 3: Severity Ratin Home Care Diagnosis 4: ICD Code: S80.212 D, Abrasion, left knee, subsequent encounter Home Care Diagnosis 4: Severity Ratin Home Care Diagnosis 5: ICD Code: S90.512 D, Abrasion, left ankle, subsequent encounter Home Care Diagnosis 5: Severity Ratin Has Skin Lesion Or Open Wound: Yes Inpatient Stay Within Last 1 4 Days: ICD Code 1: S32.008D, Oth fracture of unsp lum vertebra, subs for fx w routn heal Inpatient Stay Within Last 1 4 Days: ICD Code 2: S22.009D, Unsp fx unsp thor vertebra, smalls bs for fx w routn heal Inpatient Stay Within Last 1 4 Days: ICD Code 3: S22.42XD, Multiple fx of ribs, left side , subs for fx w routn heal Inpatient Stay Within Last 1 4 Days: ICD Code 4: S01.01XD, Laceration without foreign bod y of scalp, subs encntr Inpatient Stay Within Last 1 4 Days: ICD Code 5: S80.212D, Abrasion, left knee, subsequen t encounter Inpatient Stay Within Last 1 4 Days: ICD Code 6: S90.512D, Abrasion, left ankle, subseque nt encounter
--- OUTSIDE RECORDS SUMMARY | 2023-06-27 08:11 | External Medical Summary ---
Author Name Unknown Address [address] [id number] Phone Organization K01:[facility] [address] [id number] Laboratory Report Ordering Provider Test Date Status JOEL BROWN 11/21/2019 09:50:00 Final Observation Date Value Abnormality Reference (Units ) Status BUN 11/21/2019 16:36 21 Above high normal 6-20 (mg/dL) Final Creatinine 11/21/2019 16:36 1.7 Above high normal 0.6- 1.2 (mg/dL) Final E Glom Filt Rate 11/21/2019 16:36 39.7 Below low normal >60 Final Performing Location [facility] [address] [facility] [address]
--- OUTSIDE RECORDS SUMMARY | 2023-06-27 08:11 | External Medical Summary | Summary of Care ---
Author Name Unknown Organization [place] [address] Care Team Providers Care Tensile Tester Name Role Phone Hortencia Barraza PA-C Primary Care Provide r Encounter Details Date Type Department Care Team Description 06/03/2019 Orders Only Outcomes Research Department [address] [place] [address] Segundo Hernandez CHRA [employer] [facility] Other*[id number] Allergies Active Allergy Reactions Severity Noted Date Comments Codeine Sulfate Other (Please comment) 10/26/19 11 hyperactivity documented as of this encounter (statuses as of 06/03/2019) Medications Medication Sig Dispensed Refills Start Date [...] times a day. 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 12/31/2013 documented as of this encounter (statuses as of 06/03/2019) Social History Tobacco Use Types Packs/Day Years [...] Office Visit Urology Steffi Moon MD 132 [facility] [place] [address] [phone] Scheduled Orders Name Type Priority Associated Diagnoses Orde r Schedule MYCODE SUBSEQUENT ADULT Lab Routine [facility] Other*[id number] Every 6 Months for 2 Occurrences starting 06/03/2019 until 06/22/2020 Health Maintenance Due Date Last Done Comments [...] this encounter Visit Diagnoses Diagnosis [facility] Other*[id number] documented in this encounter Advance Directives Documents on File Type Date Recorded Patient Adjunct Professor Expl anation Advanced Directive Advanced Directive [...]
--- OUTSIDE RECORDS SUMMARY | 2023-06-27 08:11 | External Medical Summary | Summary of Care ---
Author Name Unknown Organization [facility] [place] [address] Care Team Providers Care Drug Worker Name Role Phone Hortencia Barraza PA-C Primary Care Provide r Encounter Details Date Type Department Care Team Description 02/07/2019 Scan Encounter Urology, [facility] [address] [place] [address] Steffi Moon MD [address] [facility] [place] [address] [phone] <No scans attached> Allergies Active Allergy Reactions Severity Noted Date Comments Codeine Sulfate Other (Please comment) 10/26/19 11 hyperactivity documented as of this encounter (statuses as of 04/10/2019) Medications Medication Sig Dispensed Refills Start Date End Date Status LISINOPRIL 20 MG PO TABS one tab daily 0 Active METFORMIN ER 500 MG PO TB24 two tabs twice daily 0 Active VITAMIN B-12 1000 MCG PO TABS one tablet daily 0 Active CIALIS 20 MG PO TABSIndications:Malig nant neoplasm of prostate (HCC) 1 TABLET [...] times a day. 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
--- OUTSIDE RECORDS SUMMARY | 2023-06-27 08:12 | External Medical Summary | Summary of Care ---
Author Name Unknown Organization [place] [address] Phone Care Team Providers Care Crotch Breaker Name Role Phone Hortencia Barraza PA-C Primary Care Provide r Reason for Visit * Reason Comments FOLLOW UP prostate cancer Encounter Details Date Type Department Care Team Description 12/25/2017 Nurse Only [facility] [place] [address] [facility], Nurse Urology [facility] 132 [facility] [place] [address] [phone] FOLLOW UP (prostate cancer) Allergies Active Allergy Reactions Severity Noted Date Comments Codeine Sulfate Other (Please comment) 10/26/19 11 hyperactivity as of this encounter Medications Prescription Sig. Disp. Refills Start Date End Date Status LISINOPRIL 20 MG PO TABS one tab daily Active METFORMIN ER 500 MG PO TB24 two tabs twice daily Active VITAMIN B-12 1000 MCG PO TABS one ablet daily Active CIALIS 20 MG PO TABSIndications:Mal ignant neoplasm of prostate (HCC) 1 TABLET DAILY NEEDED 10 Tab 6 11/29/2011 Active ATORVASTATIN CALCIUM 20 MG PO TABS one 1/2 pill each day at bedtime Active Cholecalciferol (VITAMIN D-3) 1000 units Capsule Take 1,000 Units by mouth daily. Active Aspirin 81 MG Tablet Take 81 mg by mouth daily. Active meclizine (ANTIVERT) 12.5 MG Tablet Take 12.5 mg by mouth 2 times a day. As needed Active [place]-3 Fatty Acids (FISH OIL) 1000 MG Capsule Take 1,000 mg by mouth daily. 2 capsules by mouth twice daily Active potassium citrate ER (UROCIT-K) 10 MEQ (1080 MG) TBCRIndications:Kid florentino stones,Kidney stone Take 1 Tab by mouth 3 times a day. With meals 270 Tab 3 12/25/2017 Active FISH OIL TRIPLE STRENGTH 1400 MG PO CAPS two tablets daily 12/25/2017 Discontinued potassium citrate ER (UROCIT-K) 10 MEQ (1080 MG) TBCRIndications:Kid florentino stones,Kidney stone Take 1 Tab by mouth 3 times a day. 90 Tab 11 04/07/2015 12/25/2017 Discontinued traMADol (ULTRAM) 50 MG Tablet Take 50 mg by mouth every 6 hours as needed for Pain. 12/25/2017 Discontinued potassium citrate ER (POTASSIUM CITRATE-10) 10 MEQ (1080 MG) TBCR Take 1 Tab by mouth 3 times a day. 270 Tab 3 05/01/2017 12/25/2017 Discontinued [place]-3 Fatty Acids (FISH OIL) 1000 MG Capsule Take 1,000 mg by mouth 2 times a day. 12/25/2017 Discontinued Hospital, Clinic, or Other Facility Administered Medication Ordered Dose Route Frequency Start Date End Date Status leuprolide acetate (4 Month) (LUPRON DEPOT) inj 30 mgIndications:Prostate cancer (HCC) 30 MG IM Once 12/25/2017 12/25/2017 Ended as of this encounter Active Problems Problem Noted Date Prostate cancer (HCC) 12/31/2013 Other ventral hernia without mention of [...] Assigned at Date Recorded Not on file as of this encounter Last Filed Vital Signs Vital Sign Reading Time Taken Blood Pressure 171/100 12/25/2017 10:03 AM EST Pulse 75 12/25/2017 10:03 AM EST Temperature 36 C (96.8 F) 12/25/2017 10: 03 AM EST Respiratory Rate - - Oxygen Saturation - - Inhaled Oxygen Concentration - - Weight 92.2 kg (203 lb 4.8 oz) 12/26/19 10:03 AM EST Height 165.1 cm (5' 5") 12/25/2017 10:0 3 AM EST Body Mass Index 33.83 12/25/2017 10:03 AM EST in this encounter Progress Notes * Steffi Moon MD - 12/25/2017 10:04 AM EST Formatting of this note may be different from the original. Filed Vitals: 12/25/17 1003 BP: 171/100 Pulse: 75 Temp: 36 C (96.8 F) Weight: 92.2 kg (203 lb 4.8 oz) Height: 1.651 m (5' 5") CC left upj stone and prostate cancer HPI: Heath Austin is a 71 year old male with left UPJ stone and [...] He has had no further gross hematuria. He is on 3 doses UroCitK per day maintenance with meals. We also follow him post op for prostate cancer, he had rrp Oct 30, [address] Jarvis, with biochemical failure. His path was pT2c negative margins, Gl 3+4 and + perineural invasion, - noa. We saw a biochemical failure and sent him on for salvage radiation therapy which ended December 2015. He feels well. PSA is climbed again. We started lupron in Aug 2017. PSA fell nicely. He is bothered withnoticeable loss of muscle mass, hot flashes 2-3 per day and general fatigue. He has some increase in urinary incontinence which is not improving. He went to [facility] weekly. 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 Past Medical History: HTN DM Prostate cancer ROS- no fevers/chills/nausea/emesis/chest pain/shortness of breath/- change in bowel habits/ + ankle pain and wrist pain. PSA(ng/mL) Michel Dt/Tm Resulted Value Status 12/20/17 10:56A 12/20/17 <0.02 FINAL 05/15/17 9:01A 05/15/17 0.74 FINAL 05/25/16 0.074 FINAL 02/16/16 Psa = 0.185 11/02/15 psa = 0.286 07/28/15 10:34A 07/28/15 0.11 FINAL 02/16/15 10:56A 02/16/15 0.07 FINAL 11/24/13 3:02P 11/24/13 0.05 FINAL 12/26/12 12:32P 12/26/12 0.03 FINAL 06/26/12 10:21A 06/28/12 <0.02 FINAL 07/24/11 12:22P 07/24/11 6.10* FINAL 10/26/10 12:25P 10/26/10 7.36* FINAL A/p 1. Nephrolithiasis- left 6-7mm left upj stone. We have likely melted it. maintenance dose of 3 tabs per day. Refills written No symptoms of recurrence. 2. 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 check psa twice yearly here and [facility]. He tolerated adding radiation spring 2015. Cont hormonal therapy. Lupron today 4 months rtc 6 months. We are staggering visits with radiation oncology 3. Stress urinary incontinence - kegels and PT, getting better 4. HTN- his pressures are normal at home, 5. Arthritis- he needs to jennifer the NSAIDS with caution given his mild renal insufficiency Steffi Moon MD in this encounter Nursing Notes * Siri Parks LPN - 12/25/2017 10:09 AM EST Formatting of this note may be different from the original. Chief Complaint Patient presents with FOLLOW UP prostate cancer Patient having some side effects from Lupron injection: hot flashes, weakness and fatigue. in this encounter Plan of Treatment Upcoming Encounters Date Type Specialty Care Team Description 02/12/2018 Office Visit Urology Steffi Moon MD [address] [address] [phone] 04/30/2018 Nurse Only Urology Wade, Nurse Escobary Soraya [address] [address] [phone] 09/04/2018 Office Visit Urology Steffi Moon MD [address] [address] [phone] Scheduled Tests Name Priority Associated Diagnoses Order S chedule PSA Routine Prostate cancer (HCC) Expected: 08/19/2018 (Approximate), Expi res: 01/25/2019 Health Maintenance Due Date Last Done Comments DTaP,Tdap,and Td Vaccines (1 - Tdap) 1964 LIPID SCREEN EVERY 5 YRS-MEN AGE 35-75 1980 PNEUMOCOCCAL ADULT 65 YRS AN D OVER (1 of 2 - PCV13) 2010 *ADVANCE DIRECTIVE NOT ON FILE 09/29/2016 *DEPRESSION SCREENING, KATINA Green FOR PTS 18 AND OVER 09/29/2016 Influenza Vaccine (FLU shot) (#1) 2017 COLONOSCOPY-EVERY 5 YRS AGES 18-100 03/07/2018 03/07/2013, 03/07/2013 DIABETES SCREEN EVERY 3 YRS- AGE 45 AND ABOVE 08/14/2020 08/14/2017, 09/24/2014, 09/15/2014, Additional history exists as of this encounter Implants Not on fileas of this encounter Visit Diagnoses Diagnosis Prostate cancer (HCC) - Prim arnold Malignant neoplasm of prostate Kidney stones Calculus of kidney Kidney stone Calculus of kidney in this encounter Administered Medications Inactive Administered Medications - up to 3 most recent administrations Medication Order MAR Action Action Date Dose Rate Site leuprolide acetate (4 Month) (LUPRON DEPOT) inj 30 mg 30 mg, Intramuscular, ONCE, 12/25/17 at 1115 Given 12/25/2017 11:13 EST 30 mg Ventrogluteal Left in this encounter Insurance Payer Benefit Plan / Group Subscriber ID Type Phone Address MEDICARE MEDICARE A AND B [id number] Medicare [place], [place] [employer] [id number] as of this encounter
--- OUTSIDE RECORDS SUMMARY | 2023-06-27 08:12 | External Medical Summary | Summary of Care ---
Author Name Unknown Organization [place] [address] Phone Care Team Providers Care Mems Device Scientist Name Role Phone Hortencia Barraza PA-C Primary Care Provide r Encounter Details Date Type Department Care Team Description 02/13/2018 Scan Encounter Urology, [facility] [address] [address] Steffi Moon MD 132 [facility] [address] [place] [address] [phone] <No scans attached> Allergies Active Allergy Reactions [...] ablet daily Active CIALIS 20 MG PO TABSIndications:Malign ant neoplasm of prostate (HCC) 1 TABLET DAILY [...] 2 times a day. As needed Active [place]-3 Fatty Acids (FISH OIL) 1000 MG Capsule Take 1,000 mg by mouth daily. 2 capsules by mouth twice daily Active potassium citrate ER (UROCIT-K) 10 MEQ (1080 MG) TBCRIndications:Kidney stones,Kidney stone Take 1 Tab by mouth 3 times a day. With meals 270 Tab 3 12/25/2017 Active as of this encounter Active Problems Problem [...] Not on file as of this encounter Plan of Treatment Upcoming Encounters Date Type Specialty Care Team Description 03/29/2018 Scheduled Telephone PreSurgery [facility] Preendoscopic Assessment Cherelle Lira [address] [address] [phone] 04/12/2018 Surgery Operating Room IP Roz Tracey MD [address] [address] [phone] COLONOSCOPY FLEXIBLE PROXIMAL DIAGNOSTIC 04/12/2018 Hospital Encounter Operating Room IP Roz Tracey MD [address] [address] [phone] 04/30/2018 Nurse Only Urology Nurse [facility] [address] [address] [phone] 09/04/2018 Office Visit Urology Steffi Moon MD [address] [address] [phone] Health Maintenance Due Date Last Done Comments DTaP,Tdap,and Td Vaccines (1 - Tdap) 1964 LIPID SCREEN EVERY 5 YRS-MEN AGE 35-75 1980 PNEUMOCOCCAL ADULT 65 YRS AN D OVER (1 of 2 - PCV13) 2010 *DEPRESSION SCREENING, KATINA Green FOR PTS 18 AND OVER 09/29/2016 COLONOSCOPY-EVERY 5 YRS AGES 18-100 03/07/2018 03/07/2013, 03/07/2013 Influenza Vaccine (FLU shot) (Season Ended) 2018 DIABETES SCREEN EVERY 3 YRS- AGE 45 AND ABOVE 08/14/2020 08/14/2017, 09/24/2014, 09/15/2014, Additional history exists as of this encounter Implants Not on fileas of this encounter
--- OUTSIDE RECORDS SUMMARY | 2023-06-27 08:12 | External Medical Summary ---
Author Name Unknown Address [facility] [address] [place] [id number] Phone Organization K01:[place] [address] [address] [place] [id number] Laboratory Report Ordering Provider Test Date Status GOSIA MANZANOMONS 04/27/2018 10:30:00 Final Observation Date Value Abnormality Reference Status PSA 04/27/2018 20:40 <0.02 <4.1 Fin al Performing Location [address] [address]
--- OUTSIDE RECORDS SUMMARY | 2023-06-27 08:12 | External Medical Summary | Summary of Care ---
Author Name Unknown Organization [place] [address] Phone Care Team Providers Care Vibration Technician Name Role Phone Hortencia Barraza PA-C Primary Care Provide r Encounter Details Date Type Department Care Team Description 04/30/2018 Nurse Only Urology, [facility] 132 [facility] [place] [id number] [facility] Nurse Urology [facility] [address] [phone] Arrived Allergies Active Allergy Reactions Severity Noted Date Comments Codeine Sulfate Other (Please comment) 10/26/19 11 hyperactivity as of this encounter Medications Prescription Sig. Disp. Refills Start Date End Date Status LISINOPRIL 20 MG PO TABS one tab daily Active METFORMIN ER 500 MG PO TB24 two tabs twice daily Active VITAMIN B-12 1000 MCG PO TABS two tablet s daily Active CIALIS 20 MG PO TABSIndications:Malign [...] 2 times a day. As needed Active [place]-3 Fatty Acids (FISH OIL) 1000 MG Capsule Take 1,000 mg by mouth daily. 2 capsules by mouth twice daily Active potassium citrate ER (UROCIT-K) 10 MEQ (1080 MG) TBCRIndications:Kidney stones,Kidney stone Take 1 Tab by mouth 3 times a day. With meals 270 Tab 3 12/25/2017 Active SAXagliptin HCl (ONGLYZA) 2.5 MG TABS Take 1 Tab by mouth daily. Active Leuprolide Acetate, 3 Month, (LUPRON DEPOT-PED, 3-MONTH,) 30 MG (Ped) KITIndications:every 4 months Inject 30 mg into a large muscle. Indications: every 4 months Active Hospital, Clinic, or Other Facility Administered Medication Ordered Dose Route Frequency Start Date End Date Status leuprolide acetate (4 Month) (LUPRON DEPOT) inj 30 mgIndications:Prostate cancer (HCC) 30 MG IM Once 04/30/2018 04/30/2018 Ended as of this encounter Active Problems [...] Encounters Date Type Specialty Care Team Description 09/04/2018 Office Visit Urology Steffi Moon MD [address] [address] [phone] Health Maintenance Due Date Last Done Comments DTaP,Tdap,and Td Vaccines (1 - Tdap) 1964 LIPID SCREEN EVERY 5 YRS-MEN AGE 35-75 1980 PNEUMOCOCCAL ADULT 65 YRS AN D OVER (1 of 2 - PCV13) 2010 *DEPRESSION SCREENINGKATINA FOR PTS 18 AND OVER 09/29/2016 *LDL AFTER STARTING A STATIN 03/05/2018 Influenza Vaccine (FLU shot) (#1) 2018 DIABETES SCREEN EVERY 3 YRS- AGE 45 AND ABOVE 08/14/2020 08/14/2017, 09/24/2014, 09/15/2014, Additional history exists COLONOSCOPY-EVERY 5 YRS AGES 18-100 04/12/2023 04/12/2018, 04/12/2018, 03/07/2013, Additional history exists as of this encounter Implants Not on fileas of this encounter Visit Diagnoses Diagnosis Prostate cancer (HCC) - Prim arnold Malignant neoplasm of prostate in this encounter Administered Medications Inactive Administered Medications - up to 3 most recent administrations Medication Order MAR Action Action Date Dose Rate Site leuprolide acetate (4 Month) (LUPRON DEPOT) inj 30 mg 30 mg, Intramuscular, ONCE, 04/30/18 at 1345 Given 04/30/2018 13:50 EDT 30 mg Ventrogl uteal Right in this encounter
--- OUTSIDE RECORDS SUMMARY | 2023-06-27 08:12 | External Medical Summary | Summary of Care ---
Author Name Unknown Organization [place] [address] Phone Care Team Providers Care Apartment Maintenance Worker Name Role Phone Ivette Koroma Primary Care Provider [phone] Encounter Details Date Type Department Care Team Description 10/30/2017 Orders Only Urology, [facility] [address] [place] [address] Steffi Moon MD 132 [facility] [place] [address] [phone] Allergies Active Allergy Reactions Severity Noted Date Comments Codeine Sulfate Other (Please comment) 10/26/19 11 hyperactivity as of this encounter Medications Prescription Sig. Disp. Refills Start Date End Date Status LISINOPRIL 20 MG PO TABS one tab daily Active METFORMIN ER 500 MG PO TB24 two tabs twice daily Active FISH OIL TRIPLE STRENGTH 1400 MG PO CAPS two tablets daily Active VITAMIN B-12 1000 MCG PO TABS one ablet daily Active CIALIS 20 MG PO TABSIndications:Maligna nt neoplasm of prostate (HCC) 1 TABLET DAILY NEEDED 10 Tab 6 11/29/2011 Active ATORVASTATIN CALCIUM 20 MG PO TABS one 1/2 pill each day at bedtime Active potassium citrate ER (UROCIT-K) 10 MEQ (1080 MG) TBCRIndications:Kidney stones,Kidney stone Take 1 Tab by mouth 3 times a day. 90 Tab 11 04/07/2015 Active traMADol (ULTRAM) 50 MG Tablet Take 50 mg by mouth every 6 hours as needed for Pain. Active potassium citrate ER (POTASSIUM CITRATE-10) 10 MEQ (1080 MG) TBCR Take 1 Tab by mouth 3 times a day. 270 Tab 3 05/01/2017 Active Cholecalciferol (VITAMIN D-3) 1000 units Capsule Take 1,000 Units by mouth daily. Active Aspirin 81 MG Tablet Take 81 mg by mouth daily. Active [place]-3 Fatty Acids (FISH OIL) 1000 MG Capsule Take 1,000 mg by mouth 2 times a day. Active meclizine (ANTIVERT) 12.5 MG Tablet Take 12.5 mg by mouth 2 times a day. As needed Active as of this encounter Active Problems [...] Encounters Date Type Specialty Care Team Description 10/30/2017 Imaging Radiology Arrived 10/30/2017 Imaging Radiology 12/25/2017 Nurse Only Urology Nurse [facility] [address] [address] [phone] 02/12/2018 Office Visit Urology Steffi Moon MD [address] [address] [phone] Scheduled Tests Name Priority Associated Diagnoses Order S chedule NUC MED - BONE SCAN INJECTION Routine Ordered: 10/30/2017 Health Maintenance Due Date Last Done Comments LIPID SCREEN EVERY 5 YRS-MEN AGE 35-75 1980 PNEUMOCOCCAL ADULT 65 YRS AN D OVER (1 of 2 - PCV13) 2010 TETANUS EVERY 10 YEARS-TDAP (BOOSTRIX OR ADACEL) SUGGESTED IF NOT RECEIVED IN THE PAST. 2010 *ADVANCE DIRECTIVE NOT ON FILE 09/29/2016 *DEPRESSION SCREENING, KATINA Green FOR PTS 18 AND OVER 09/29/2016 Influenza Vaccine (FLU shot) (#1) 2017 COLONOSCOPY-EVERY 5 YRS AGES 18-100 03/07/2018 03/07/2013, 03/07/2013 DIABETES SCREEN EVERY 3 YRS- AGE 45 AND ABOVE 08/14/2020 08/14/2017, 09/24/2014, 09/15/2014, Additional history exists as of this encounter Implants Not on fileas of this encounter Insurance Payer Benefit Plan / Group Subscriber ID Type Phone Address MEDICARE MEDICARE A AND B [id number] Medicare [place], [place] [employer] [id number] as of this encounter
--- OUTSIDE RECORDS SUMMARY | 2023-06-27 08:12 | External Medical Summary ---
Author Name Unknown Address [facility] [address] [place] [id number] Phone Organization K01:[place] [address] [address] [place] [id number] Laboratory Report Ordering Provider Test Date Status JOSE JUAN,RUTH 12/20/2017 10:56:00 Final Observation Date Value Abnormality Reference Status PSA 12/20/2017 20:08 <0.02 <4.1 Fin al Performing Location [address] [address]
--- OUTSIDE RECORDS SUMMARY | 2023-06-27 08:12 | External Medical Summary | Summary of Care ---
Author Name Unknown Organization [place] [place] [address] Phone Care Team Providers Care Gripper Attacher Name Role Phone Hortencia Barraza PA-C Primary Care Provide r Reason for Visit * Reason Comments APPOINTMENT colonoscopy Encounter Details Date Type Department Care Team Description 02/08/2018 Telephone Gastroenterology, [facility] [address] [facility] [place] [address] Hortencia Barraza PA-C [address] [place] [address] [phone] APPOINTMENT (colonoscopy) Allergies Active Allergy Reactions Severity Noted Date [...] 2 times a day. As needed Active [place]-3 Fatty Acids (FISH OIL) 1000 MG Capsule [...] Not on file as of this encounter Miscellaneous Notes * Telephone Encounter - Surekha Saavedra OSA - 02/08/2018 3:22 PM EDT Pt is scheduled for Colon on 04/12 w/Dr. Tracey at . Instructions mailed to pt. * Telephone Encounter - Pattie Vidal OSA - 02/08/2018 9:57 AM EDT Received order for a colonoscopy for the patient from the [place]. LM at home number to call us back. DX Z12.11 Records in scanning and demographics updated. in this encounter Plan of Treatment Upcoming Encounters Date Type Specialty Care Team Description 03/29/2018 Scheduled Telephone PreSurgery Wade Preendoscopic Assessment Cherelle Lira [address] [address] [phone] 04/12/2018 Surgery Operating Room IP Roz Tracey MD [address] [address] [phone] COLONOSCOPY FLEXIBLE PROXIMAL DIAGNOSTIC 04/12/2018 Hospital Encounter Operating Room IP Roz Tracey MD [address] [address] [phone] 04/30/2018 Nurse Only Urology Nurse [facility] [address] [address] [phone] 09/04/2018 Office Visit Urology Steffi Moon MD [address] [address] [phone] Health Maintenance Due Date Last Done Comments [...] Phone Address MEDICARE MEDICARE A AND B [id number] Medicare [place] [facility] [id number] as of this encounter
--- OUTSIDE RECORDS SUMMARY | 2023-06-27 08:12 | External Medical Summary ---
Author Name Unknown Address Unknown Organization K0Y:[place] [id number] Laboratory Report Ordering Provider Test Date Status ANA CASTANO 06/14/2018 21:38:00 Observation Date Value Abnormality Reference Status Sodium 06/14/2018 21:38 141 136-145 Fin al Potassium 06/14/2018 21:38 3.7 3.5-5.1 Fin al Cl 06/14/2018 21:38 107 98-107 Fin al CO2 06/14/2018 21:38 26.0 21-32 Fin al Anion gap 06/14/2018 21:38 12 7-15 Fin al BUN 06/14/2018 21:38 33 Above high normal 7-18 Final Creatinine 06/14/2018 21:38 1.58 Above high normal 0.6- 1.3 Final Performing Location [place] [id number] [place] [address]
--- OUTSIDE RECORDS SUMMARY | 2023-06-27 08:12 | External Medical Summary ---
Author Name Unknown Address Unknown Organization [facility] [address] Laboratory Report Ordering Provider Test Date Status ANA CASTANO 06/14/2018 21:38:00 Observation Date Value Abnormality Reference Status WBC 06/14/2018 21:38 9.84 Above high normal 4.0-9 .1 Final RBC 06/14/2018 21:38 4.00 Below low normal 4.6-6. 1 Final Hemoglobin 06/14/2018 21:38 12.6 Below low normal 13.7- 17.5 Final HCT 06/14/2018 21:38 37.2 Below low normal 40-51 Final MCV 06/14/2018 21:38 93.0 Above high normal 79-92 Final MCH 06/14/2018 21:38 31.5 26-32 Fin al MCHC 06/14/2018 21:38 33.9 32-37 Fin al RDW 06/14/2018 21:38 14.2 11.6-14.4 Fin al Platelets 06/14/2018 21:38 219 150-330 Fin al Segs 06/14/2018 21:38 54.3 34.0-67.9 Fin al Lymphocytes 06/14/2018 21:38 36.6 21.8-53.1 F inal Monos 06/14/2018 21:38 7.2 5.3-12.2 Fin al Eosinophils 06/14/2018 21:38 1.5 0.8-7.0 F inal Basos 06/14/2018 21:38 0.4 0.1-1.2 Fin al Segmented Neutrophils, Abs 06/14/2018 21:38 5.34 1.8-5.4 Final Lymphs, Abs 06/14/2018 21:38 3.60 1.3-3.6 F inal Monos, Abs 06/14/2018 21:38 0.71 0.3-0.8 Fi nal Eos, Abs 06/14/2018 21:38 0.15 0.0-0.5 Fin al Basos, Abs 06/14/2018 21:38 0.04 0.0-0.1 Fi nal Nucleated RBCs 06/14/2018 21:38 0.0 0-0.2 Final Nucleated RBCs, Number 06/14/2018 21:38 0.00 0 Final [place] [address]
--- OUTSIDE RECORDS SUMMARY | 2023-06-27 08:12 | External Medical Summary | Summary of Care ---
Author Name Unknown Organization [place] [address] Phone Care Team Providers Care Chief Controller Name Role Phone Ivette Koroma Primary Care Provider [phone]- [phone] Encounter Details Date Type Department Care Team Description 08/13/2017 Scan Encounter Urology, [facility] [address] [facility] [place] [address] Steffi Moon MD 132 [facility] [place] [address] [phone] <No scans attached> Allergies Active Allergy Reactions [...] Take 81 mg by mouth daily. Active [place]-3 Fatty Acids (FISH OIL) 1000 MG Capsule [...] Encounters Date Type Specialty Care Team Description 08/29/2017 Imaging Radiology 12/25/2017 Nurse Only Urology Wade, Nurse Urology Soraya 132 [address] [place] [address] [phone] 02/12/2018 Office Visit Urology Steffi Moon MD 132 [address] [place] [address] [phone] Health Maintenance Due Date Last Done Comments [...] Phone Address MEDICARE MEDICARE A AND B [id number] Medicare BR[place] [facility] OPTIONS [id number] as of this encounter
--- OUTSIDE RECORDS SUMMARY | 2023-06-27 08:12 | External Medical Summary | Summary of Care ---
Author Name Unknown Organization [place] [address] Phone Care Team Providers Care Fiberglass Boat Finisher Name Role Phone Hortencia Barraza PA-C Primary Care Provide r Encounter Details Date Type Department Care Team Description 04/29/2018 Orders Only Outcomes Research Department [address] [facility] [place] [id number] Enrique Olvera 132 [facility] [place] [address] [employer] Other*[id number] Allergies Active Allergy Reactions Severity Noted Date [...] 2 times a day. As needed Active [place]-3 Fatty Acids (FISH OIL) 1000 MG Capsule [...] large muscle. Indications: every 4 months Active as of this encounter Active Problems [...] Encounters Date Type Specialty Care Team Description 04/30/2018 Nurse Only Urology Wade, Nurse Urology Soraya [address] [place] [address] [phone] 09/04/2018 Office Visit Urology Steffi Moon MD [address] [place] [address] [phone] Scheduled Tests Name Priority Associated Diagnoses Order S chedule MYCODE SUBSEQUENT ADULT Routine MyCode Research Other*[id number] Every 6 Months for 2 Occurrences starting 04/29/2018 until 05/19/2019 Health Maintenance Due Date Last Done Comments [...] fileas of this encounter Visit Diagnoses Diagnosis MYCODE RESEARCH OTHER*[id number] in this encounter
--- OUTSIDE RECORDS SUMMARY | 2023-06-27 08:12 | External Medical Summary ---
Author Name Unknown Address Unknown Organization K0Y:[place] [address] Laboratory Report Ordering Provider Test Date Status ANA CASTANO 06/14/2018 21:38:00 Observation Date Value Abnormality Reference Status Lactic Acid 06/14/2018 21:38 2.5 Above upper panic juares its 0.4-2.0 Final Performing Location [address] [address]
--- OUTSIDE RECORDS SUMMARY | 2023-06-27 08:12 | External Medical Summary | Summary of Care ---
Author Name Unknown Organization [place] [address] Phone Care Team Providers Care Ceramics Teacher Name Role Phone Ivette Koroma Primary Care Provider +1- [phone] Encounter Details Date Type Department Care Team Description 08/29/2017 Orders Only Urology, [facility] [address] [place] [address] Steffi Moon MD 132 [facility] [place] [address] [phone] Allergies Active Allergy Reactions Severity Noted Date [...] Take 81 mg by mouth daily. Active [place]-3 Fatty Acids (FISH OIL) 1000 MG Capsule [...] Imaging Radiology 12/25/2017 Nurse Only Urology Wade, Urology Soraya [address] [place] [address] [phone] 02/12/2018 Office Visit Urology Steffi Moon MD [address] [place] [address] [phone] Scheduled Tests Name Priority Associated Diagnoses Order S chedule NUC MED - BONE SCAN INJECTION Routine Ordered: 08/29/2017 Health Maintenance Due Date Last Done Comments LIPID SCREEN EVERY 5 YRS-MEN AGE 35-75 1980 PNEUMOCOCCAL ADULT 65 YRS AN D OVER (1 of 2 - PCV13) 2010 TETANUS EVERY 10 YEARS-TDAP (BOOSTRIX OR ADACEL) SUGGESTED IF NOT RECEIVED IN THE PAST. 2010 *ADVANCE DIRECTIVE NOT ON FILE 09/29/2016 *DEPRESSION SCREENINGKATINA FOR PTS 18 AND OVER 09/29/2016 Influenza Vaccine (FLU shot) (#1) 2017 COLONOSCOPY-EVERY 5 YRS AGES 18-100 03/07/2018 03/07/2013, 03/07/2013 DIABETES SCREEN EVERY 3 YRS- AGE 45 AND ABOVE 08/14/2020 08/14/2017, 09/24/2014, 09/15/2014, Additional history exists as of this encounter Implants Not on fileas of this encounter Insurance Payer Benefit Plan / Group Subscriber ID Type Phone Address MEDICARE MEDICARE A AND B [id number] [facility] OPTIONS [id number] as of this encounter
--- OUTSIDE RECORDS SUMMARY | 2023-06-27 08:12 | External Medical Summary | Summary of Care ---
Author Name Unknown Organization [place] [address] Phone Care Team Providers Care Toll Booth Operator Name Role Phone Ivette Koroma Primary Care Provider +1- [phone] Encounter Details Date Type Department Care Team Description 10/30/2017 Orders Only Urology, [facility] [address] [place] [address] Steffi Moon MD 132 [facility] [place] [address] [phone] Allergies Active Allergy Reactions Severity Noted Date [...] Take 81 mg by mouth daily. Active [place]-3 Fatty Acids (FISH OIL) 1000 [...] Nurse Wade Urology Soraya [address] [place] [address] [phone] 02/12/2018 Office Visit Urology Steffi Moon MD [address] [place] [address] [phone] Scheduled Tests Name Priority Associated Diagnoses Order S chedule NUC MED - BONE WHOLEBODY Routine Ord ered: 10/30/2017 Health Maintenance Due Date Last Done [...] Phone Address MEDICARE MEDICARE A AND B [id number] Medicare [place] [employer] [facility] OPTIONS [id number] as of this encounter
--- OUTSIDE RECORDS SUMMARY | 2023-06-27 08:13 | External Medical Summary ---
Author Name Unknown Organization K01:[facility], [address] [facility], [place] [address] Laboratory Report Ordering Provider Test Date Status JOSE JUAN MIRANDA MD 09/24/2014 12:29:00-0500 Fin al Obs # Observation Date Value ABNL Reference Status Pe rforming Location 1 Color, UA 09/24/2014 17:09-0500 STRAW A YEL Final 2 Clarity, UA 09/24/2014 17:09-0500 CLEAR CLEAR Final 3 Glucose, UA 09/24/2014 17:09-0500 NEGATIVE NEG mg/dL Final 4 Bilirubin, UA 09/24/2014 17:09-0500 NEGATIVE NEG Final 5 Ketones, UA 09/24/2014 17:09-0500 NEGATIVE NEG mg/dL Final 6 SPECIFIC GRAVITY 09/24/2014 17:09-0500 1.009 1.003-1.030 Final 7 Hemoglobin, qual. UA 09/24/2014 17:09-0500 NEGATIVE NEG Final 8 pH, UA 09/24/2014 17:09-0500 6.0 5.0-7.5 units Final 9 Protein, UA 09/24/2014 17:09-0500 30 A NEG mg/dL Final 10 Urobilinogen, UA 09/24/2014 17:09-0500 NORMAL NORM EU/dL Final 11 Nitrite, UA 09/24/2014 17:09-0500 NEGATIVE NEG Final 12 Leukocyte Esterase, UA 09/24/2014 17:09-0500 NEGATIVE NEG Final 13 Bacteria, UA 09/24/2014 17:09-0500 NONE Final 14 WBC, UA 09/24/2014 17:09-0500 1-4 /HPF Final 15 RBC, UA 09/24/2014 17:09-0500 NONE /HPF Final 16 SQ EPITH CELLS,UA 09/24/2014 17:09-0500 OCCASIONAL Final
--- OUTSIDE RECORDS SUMMARY | 2023-06-27 08:13 | External Medical Summary ---
Author Name Unknown Organization K01:[facility], [address] [place] [address] Laboratory Report Ordering Provider Test Date Status JOSE JUAN MIRANDA MD 08/03/2014 11:36:00-0400 Fin al Obs # Observation Date Value ABNL Reference Status Pe rforming Location 1 specimen 08/03/2014 11:24-0400 CLEAN CATCH URINE Final 2 result 08/04/2014 11:52-0400 LESS THAN 1,000 COLONIES/ML (NO GROWTH) Final 3 report status 08/04/2014 11:52-0400 08/04/2014 FINAL Final
--- OUTSIDE RECORDS SUMMARY | 2023-06-27 08:13 | External Medical Summary ---
Author Name Unknown Organization K0G:[facility] [place], [address], [place] [address] Laboratory Report Ordering Provider Test Date Status JOSE JUAN MIRANDA MD 09/24/2014 12:30:00-0500 Fin al Obs # Observation Date Value ABNL Reference Status Pe rforming Location 1 BUN 09/24/2014 14:33-0500 20 6-20 mg/dL Final 2 Creatinine 09/24/2014 14:33-0500 1.2 0.7-1.3 mg/dL Final GFR should be used to assess renal function. Plasma/Serum creatinine may not be able to properly reflect renal function in some cases. If patient is , multiply estimated GFR by 1.159.
--- OUTSIDE RECORDS SUMMARY | 2023-06-27 08:13 | External Medical Summary ---
Author Name Unknown Organization K09:[facility] [address] [place] [address] Laboratory Report Ordering Provider Test Date Status JOSE JUAN MIRANDA MD 09/15/2014 11:41:00-0500 Fin al Obs # Observation Date Value ABNL Reference Status Pe rforming Location 1 BUN 09/15/2014 15:37-0500 23 H 6-20 mg/dL Final 2 Creatinine 09/15/2014 15:37-0500 1.2 0.7-1.3 mg/dL Final GFR should be used to assess renal function. Plasma/Serum creatinine may not be able to properly reflect renal function in some cases. If patient is , multiply estimated GFR by 1.159.
--- OUTSIDE RECORDS SUMMARY | 2023-06-27 08:13 | External Medical Summary ---
Author Name Unknown Organization K01:[facility], [address] [place] [address] Laboratory Report Ordering Provider Test Date Status JOSE JUAN MIRANDA MD 09/01/2014 10:48:00-0500 Fin al Obs # Observation Date Value ABNL Reference Status Pe rforming Location 1 BUN 09/01/2014 22:18-0500 24 H 6-20 mg/dL Final 2 Creatinine 09/01/2014 22:18-0500 1.2 0.7-1.3 mg/dL Final GFR should be used to assess renal function. Plasma/Serum creatinine may not be able to properly reflect renal function in some cases. If patient is , multiply estimated GFR by 1.159.
--- OUTSIDE RECORDS SUMMARY | 2023-06-27 08:13 | External Medical Summary ---
Author Name Unknown Organization K01:[facility], [address] [place] [address] Laboratory Report Ordering Provider Test Date Status JOSE JUAN MIRANDA MD 08/11/2014 12:21:00-0400 Fin al Obs # Observation Date Value ABNL Reference Status Pe rforming Location 1 source 08/11/2014 12:22-0400 KIDNEY STONE, URINE Final 2 STONE 08/16/2014 02:14-0400 REPORT Final (NOTE) TESTS RESULTS--------UNITS--REF. RANGE--- Specimen Source Not given Nidus Not observed Component 1 REPORT Uric Acid Dihydrate 80% Calcium Oxalate Monohydrate (Whewellite) 20% Stone Weight 0.0620 g The image will follow, unless test is cancelled or no picture is available to report. (NOTE) Reference lab accession: [id number] Test performed by: [facility] [address] [address] Oil Separator: Richard Galvez M.D., [facility]
--- OUTSIDE RECORDS SUMMARY | 2023-06-27 08:13 | External Medical Summary ---
Author Name Unknown Organization K09:[facility] [address] [place] [address] Laboratory Report Ordering Provider Test Date Status JOSE JUAN MIRANDA MD 08/24/2014 10:40:00-0500 Fin al Obs # Observation Date Value ABNL Reference Status Pe rforming Location 1 BUN 08/24/2014 14:50-0500 24 H 6-20 mg/dL Final 2 Creatinine 08/24/2014 14:50-0500 1.3 0.7-1.3 mg/dL Final GFR should be used to assess renal function. Plasma/Serum creatinine may not be able to properly reflect renal function in some cases. If patient is , multiply estimated GFR by 1.159.
--- OUTSIDE RECORDS SUMMARY | 2023-06-27 08:13 | External Medical Summary ---
Author Name Unknown Address [address] [place] [id number] Phone Organization K01:[facility] [address] [place] [id number] Laboratory Report Ordering Provider Test Date Status RUTH MANZANO MD [id number] Final Obs # Observation Date Value Abnormality Reference Status Performing Location 0 Prostate specific Ag [Mass/volume] in Serum or Plasma [id number] 0.11 <4.1 Final [facility] [place] [address] [facility] [address]
--- OUTSIDE RECORDS SUMMARY | 2023-06-27 08:13 | External Medical Summary | Summary of Care ---
Author Name Unknown Organization [place] [address] Phone Care Team Providers Care Ux Architect Name Role Phone Ivette Koroma Primary Care Provider +1- [phone] Encounter Details Date Type Department Care Team Description 08/29/2017 Orders Only Urology, [facility] [address] [place] [address] Steffi Moon MD 132 [facility] [place] [address] [phone] Allergies Active Allergy Reactions Severity Noted Date [...] Take 81 mg by mouth daily. Active [place]-3 Fatty Acids (FISH OIL) 1000 MG Capsule [...] Urology Wade, Urology Soraya [address] [place] [address] [phone] 02/12/2018 Office Visit Urology Steffi Moon MD [address] [place] [address] [phone] Scheduled Tests Name Priority Associated Diagnoses Order S chedule NUC MED - BONE WHOLEBODY Routine Ord ered: 08/29/2017 Health Maintenance Due Date Last Done Comments LIPID SCREEN EVERY 5 YRS-MEN AGE 35-75 1980 PNEUMOCOCCAL ADULT 65 YRS AN D OVER (1 of 2 - PCV13) 2010 TETANUS EVERY 10 YEARS-TDAP (BOOSTRIX OR ADACEL) SUGGESTED IF NOT RECEIVED IN THE PAST. 2010 *ADVANCE DIRECTIVE NOT ON FILE 09/29/2016 *DEPRESSION SCREENING, ANNUA L FOR PTS 18 AND OVER 09/29/2016 Influenza Vaccine (FLU shot) (#1) 2017 COLONOSCOPY-EVERY 5 YRS AGES 18-100 03/07/2018 03/07/2013, 03/07/2013 DIABETES SCREEN EVERY 3 YRS- AGE 45 AND ABOVE 08/14/2020 08/14/2017, 09/24/2014, 09/15/2014, Additional history exists as of this encounter Implants Not on fileas of this encounter Insurance Payer Benefit Plan / Group Subscriber ID Type Phone Address MEDICARE MEDICARE A AND B [id number] [place] [facility] OPTIONS [id number] as of this encounter
--- OUTSIDE RECORDS SUMMARY | 2023-06-27 08:13 | External Medical Summary ---
Author Name Unknown Address [facility] [address] [place] [id number] Phone Organization K01:[place] [address] [place] [id number] Laboratory Report Ordering Provider Test Date Status ANEUDY MANZANOS 05/15/2017 09:01:00 Final Observation Date Value Abnormality Reference Status PSA 05/15/2017 20:03 0.74 <4.1 Fin al Performing Location [address] [address]
--- OUTSIDE RECORDS SUMMARY | 2023-06-27 08:13 | External Medical Summary ---
Author Name Unknown Organization K01:[facility], [address] [place] [address] Laboratory Report Ordering Provider Test Date Status JOSE JUAN MIRANDA MD 02/16/2015 10:56:00-0400 Fin al Obs # Observation Date Value ABNL Reference Status Pe rforming Location 1 PSA 02/16/2015 16:56-0400 0.07 <4.1 ng/mL Final
--- OUTSIDE RECORDS SUMMARY | 2023-06-27 08:13 | External Medical Summary ---
Author Name Unknown Organization K09:[facility] [address] [place] [address] Laboratory Report Ordering Provider Test Date Status JOSE JUAN MIRANDA MD 09/08/2014 11:18:00-0500 Fin al Obs # Observation Date Value ABNL Reference Status Pe rforming Location 1 BUN 09/08/2014 14:34-0500 23 H 6-20 mg/dL Final 2 Creatinine 09/08/2014 14:34-0500 1.3 0.7-1.3 mg/dL Final GFR should be used to assess renal function. Plasma/Serum creatinine may not be able to properly reflect renal function in some cases. If patient is , multiply estimated GFR by 1.159.
--- OUTSIDE RECORDS SUMMARY | 2023-06-27 08:13 | External Medical Summary ---
Author Name Unknown Address 132 [facility] [place] [address] Phone Organization K0G:[facility] [address] [facility] [place] [address] Laboratory Report Ordering Provider Test Date Status RUTH MANZANO 08/14/2017 14:32:00 Final Observation Date Value Abnormality Reference Status BUN 08/14/2017 15:18 20 6-20 Fin al Creatinine 08/14/2017 15:18 1.4 Above high normal 0.6- 1.2 Final Performing Location [facility] [address] [place] [address]
--- OUTSIDE RECORDS SUMMARY | 2023-06-27 08:14 | External Medical Summary ---
Author Name ODALYS VALDEZ Organization K09:[facility] [address] [place] [address] Support Name Relationship Address Phone JUS MORROW MD PROV Unknown Unavail able Laboratory Report Ordering Provider Test Date Status JUS MORROW MD 04/10/2012 11:05:00-0400 Fin al Obs # Observation Date Value ABNL Reference Status Pe rforming Location 1 BUN 04/10/2012 14:30-0400 17 6-20 mg/dL Final 2 Creatinine 04/10/2012 14:30-0400 0.8 0.7-1.3 mg/dL Final GFR should be used to assess renal function. Plasma/Serum creatinine may not be able to properly reflect renal function in some cases.
--- OUTSIDE RECORDS SUMMARY | 2023-06-27 08:14 | External Medical Summary ---
Author Name Unknown Organization [facility] Support Name Relationship Address Phone EYAD LANDRUM MD PROV Unknown Unavaila ble Laboratory Report Ordering Provider Test Date Status EYAD LANDRUM MD 01/05/2011 13:45-0400 Final Obs # Observation Date Value ABNL Reference Status Pe rforming Location 1 Glucose, meter 01/06/2011 07:06-0400 107 70-120 mg/dl Final
--- OUTSIDE RECORDS SUMMARY | 2023-06-27 08:14 | External Medical Summary ---
Author Name DIALLO VALDEZ Organization K01:[facility], [address] [place] [address] Support Name Relationship Address Phone DIALLO AVLDEZ, EYAD PROV Unknown Unavail able Laboratory Report Ordering Provider Test Date Status EYAD LANDRUM MD 10/18/2011 15:09:00-0500 Fin al Obs # Observation Date Value ABNL Reference Status Pe rforming Location 1 SAMPLE EXPIRES 10/19/2011 10:15-0500 11/02/2011 Final 2 ABO and Rh (D) 10/19/2011 10:15-0500 O POSITIVE Final 3 Antibody Screen 10/19/2011 10:150500 NEGATIVE Final
--- OUTSIDE RECORDS SUMMARY | 2023-06-27 08:14 | External Medical Summary ---
Author Name Unknown Organization K01:[facility] [place], [address] [place] [address] Laboratory Report Ordering Provider Test Date Status JOSE JUAN MIRANDA MD 11/24/2013 15:02:00-0500 Fin al Obs # Observation Date Value ABNL Reference Status Pe rforming Location 1 PSA 11/24/2013 21:20-0500 0.05 <4.1 ng/mL Final
--- OUTSIDE RECORDS SUMMARY | 2023-06-27 08:14 | External Medical Summary ---
Author Name JARAD VALDEZ Organization K01[facility], [address] [place] [address] Support Name Relationship Address Phone JARAD VALDEZ, JAS PROV Unknown Unavailab le Laboratory Report Ordering Provider Test Date Status JAS ABRAHAM MD 07/05/2012 09:33:00-0400 Final Obs # Observation Date Value ABNL Reference Status Pe rforming Location 1 URINE COMMENT POC 07/05/2012 09:26-0400 PLEASE REVIEW CAREFULLY. SOME ABNORMAL RESULTS DO NOT FLAG Final 2 Color, UA 07/05/2012 09:26-0400 Yellow YEL Final 3 Clarity, UA 07/05/2012 09:26-0400 Clear CLEAR Final 4 Glucose, UA 07/05/2012 09:26-0400 Negative NEG mg/dL Final 5 Bilirubin, UA 07/05/2012 09:26-0400 Negative NEG Final 6 Ketones, UA 07/05/2012 09:26-0400 Trace NEG mg/dL Final 7 SPECIFIC GRAVITY 07/05/2012 09:26-0400 1.025 1.003-1.030 Final 8 Hemoglobin, qual. UA 07/05/2012 09:26-0400 Trace NEG Final lysed
--- OUTSIDE RECORDS SUMMARY | 2023-06-27 08:14 | External Medical Summary ---
Author Name DIALLO VALDEZ Organization K01:[place] [address] [place] [address] Support Name Relationship Address Phone DIALLO VALDEZ, EYAD [facility] Unknown Unavail able Laboratory Report Ordering Provider Test Date Status EYAD LANDRUM MD 10/30/2011 09:33:00-0500 Fin al Obs # Observation Date Value ABNL Reference Status Pe rforming Location 1 Glucose, Capillary (glucometer) 10/31/2011 09:08-0500 115 70-120 mg/dl Final
--- OUTSIDE RECORDS SUMMARY | 2023-06-27 08:14 | External Medical Summary ---
Author Name ODALYS VALDEZ Organization K09:[facility], [address], [place] [address] Support Name Relationship Address Phone JUS MORROW MD PROV Unknown Unavail able Laboratory Report Ordering Provider Test Date Status JUS MORROW MD 04/10/2012 11:05:000400 Fin al Obs # Observation Date Value ABNL Reference Status Pe rforming Location 1 WBC 04/10/2012 11:0400 7.33 4.00-10.80 K/uL Final 2 RBC 04/10/2012 11:0400 4.91 4.50-5.25 M/uL Final 3 HGB 04/10/2012 11:0400 13.9 L 14.0-16.5 g/dL Final 4 HCT 04/10/2012 11:0400 44.8 40.0-47.0 % Final 5 MCV 04/10/2012 11:0400 91.2 82.0-99.5 fL Final 6 MCH 04/10/2012 11:0400 28.3 27.0-34.0 pg Final 7 MCHC 04/10/2012 11:0400 31.0 L 32.0-36.0 g/dL Final 8 RDW 04/10/2012 11:0400 16.4 H 11.5-15.5 % Final 9 PLT 04/10/2012 11:0 194 140-400 K/uL Final 10 MPV 04/10/2012 11:0400 8.8 6.6-11.1 fL Final
--- OUTSIDE RECORDS SUMMARY | 2023-06-27 08:14 | External Medical Summary ---
Author Name JARAD VALDEZ Organization K01:[place] [address] [place] [address] Support Name Relationship Address Phone JAS ABRAHAM MD PROV Unknown Unavailab le Laboratory Report Ordering Provider Test Date Status JAS ABRAHAM MD 06/26/2012 10:21:00-0400 Final Obs # Observation Date Value ABNL Reference Status Pe rforming Location 1 PSA 06/28/2012 15:14-0400 <0.02 <4.1 ng/mL Final RESULTS RECHECKED
--- OUTSIDE RECORDS SUMMARY | 2023-06-27 08:14 | External Medical Summary ---
Author Name DIALLO VALDEZ Organization K01:[facility], [address] [address] Support Name Relationship Address Phone EYAD LANDRUM MD PROV Unknown Unavail able Laboratory Report Ordering Provider Test Date Status EYAD LANDRUM MD 10/18/2011 15:09:00-0500 Fin al Obs # Observation Date Value ABNL Reference Status Pe rforming Location 1 BUN 10/18/2011 17:24-0500 18 6-20 mg/dL Final 2 CREATININE 10/18/2011 17:24-0500 0.8 0.7-1.3 mg/dL Final GFR should be used to assess renal function. Plasma/Serum creatinine may not be able to properly reflect renal function in some cases.
--- OUTSIDE RECORDS SUMMARY | 2023-06-27 08:14 | External Medical Summary ---
Author Name Unknown Organization K01:[facility] [place] [facility], [address] [address] Support Name Relationship Address Phone EDWIN STEWART PA-C PROV Unknown U navailable Laboratory Report Ordering Provider Test Date Status EDWIN STEWART PA-C 12/21/2010 12:00-0500 Final Obs # Observation Date Value ABNL Reference Status Pe rforming Location 1 Specimen site 12/21/2010 17:48-0500 Final CLEAN CATCH URINE LESS THAN 10,000 COLONIES/ML STAPHYLOCOCCUS SPECIES NOT S. AUREUS FINAL LESS THAN 10,000 COLONIES/ML STAPHYLOCOCCUS SPECIES NOT S. AUREUS VITEK SUSCEPTIBLE SUSCEPTIBLE RESISTANT OXACILLIN/METHICILLIN RESISTANT STAPHYLOCOCCI ARE CONSIDERED CLINICALLY RESISTANT TO ALL BETA-LACTAM (PENICILLINS AND CEPHALOSPORIN) ANTIBIOTICS QUINOLONE ANTIBIOTICS SHOULD ALSO NOT BE USED FOR STAPHYLOCOCCI THAT ARE OXACILLIN RESISTANT RESISTANT SUSCEPTIBLE SUSCEPTIBLE SUSCEPTIBLE
--- OUTSIDE RECORDS SUMMARY | 2023-06-27 08:14 | External Medical Summary ---
Author Name DIALLO VALDEZ Organization K01:[place] [address] [address] Support Name Relationship Address Phone DIALLO VALDEZ, EYAD [facility] Unknown Unavail able Laboratory Report Ordering Provider Test Date Status EYAD LANDRUM MD 10/31/2011 08:17:00-0500 Fin al Obs # Observation Date Value ABNL Reference Status Pe rforming Location 1 Glucose, Capillary (glucometer) 11/01/2011 02:25-0500 127 H 70-120 mg/dl Final
--- OUTSIDE RECORDS SUMMARY | 2023-06-27 08:14 | External Medical Summary ---
Author Name Unknown Organization [facility] Support Name Relationship Address Phone EYAD LANDRUM MD PROV Unknown Unavaila ble Laboratory Report Ordering Provider Test Date Status EYAD LANDRUM MD 01/05/2011 10:05-0400 Final Obs # Observation Date Value ABNL Reference Status Pe rforming Location 1 Glucose, meter 01/06/2011 05:23-0400 117 70-120 mg/dl Final
--- OUTSIDE RECORDS SUMMARY | 2023-06-27 08:14 | External Medical Summary ---
Author Name DIALLO VALDEZ Organization K01:[place] [address] [address] Support Name Relationship Address Phone DIALLO VALDEZ, EYAD [facility] Unknown Unavail able Laboratory Report Ordering Provider Test Date Status EYAD LANDRUM MD 10/30/2011 11:35:00-0500 Fin al Obs # Observation Date Value ABNL Reference Status Pe rforming Location 1 Glucose, Capillary (glucometer) 10/31/2011 09:08-0500 114 70-120 mg/dl Final
--- OUTSIDE RECORDS SUMMARY | 2023-06-27 08:14 | External Medical Summary ---
Author Name RUTH VALDEZ Organization K01:[place] [address] [address] Support Name Relationship Address Phone JOSE JUAN MIRANDA MD Unknown Unavail able Laboratory Report Ordering Provider Test Date Status JOSE JUAN MIRANDA MD 12/26/2012 12:32:00-0500 Fin al Obs # Observation Date Value ABNL Reference Status Pe rforming Location 1 PSA 12/26/2012 17:45-0500 0.03 <4.1 ng/mL Final
--- OUTSIDE RECORDS SUMMARY | 2023-06-27 08:14 | External Medical Summary ---
Author Name DIALLO VALDEZ Organization K01[facility], [address] [address] Support Name Relationship Address Phone DIALLO VALDEZ, EYAD PR[facility] Unknown Unavail able Laboratory Report Ordering Provider Test Date Status EYAD LANDRUM MD 10/18/2011 15:09:00-0500 Fin al Obs # Observation Date Value ABNL Reference Status Pe rforming Location 1 WBC 10/18/2011 16:59-0500 9.61 4.00-10.80 K/uL Final 2 RBC 10/18/2011 16:59-0500 5.21 4.50-5.25 M/uL Final 3 HGB 10/18/2011 16:59-0500 16.3 14.0-16.5 g/dL Final 4 HCT 10/18/2011 16:59-0500 47.8 H 40.0-47.0 % Final 5 MCV 10/18/2011 16:59-0500 91.7 82.0-99.5 fL Final 6 MCH 10/18/2011 16:59-0500 31.3 27.0-34.0 pg Final 7 MCHC 10/18/2011 16:59-0500 34.1 32.0-36.0 g/dL Final 8 RDW 10/18/2011 16:59-0500 14.7 11.5-15.5 % Final 9 PLATELET COUNT 10/18/2011 16:59-0500 214 140-400 K/uL Final 10 MPV 10/18/2011 16:59-0500 9.4 6.6-11.1 fL Final
--- OUTSIDE RECORDS SUMMARY | 2023-06-27 08:14 | External Medical Summary ---
Author Name EYAD LANDRUM MD Organization K01:[place] [address] [address] Support Name Relationship Address Phone EYAD LANDRUM MD [facility] Unknown Unavaila ble Laboratory Report Ordering Provider Test Date Status EYAD LANDRUM MD 07/24/2011 12:22-0400 Final Obs # Observation Date Value ABNL Reference Status Pe rforming Location 1 PSA 07/24/2011 20:29-0400 6.10 H <4.1 ng/mL Final
--- OUTSIDE RECORDS SUMMARY | 2023-06-27 08:14 | External Medical Summary ---
Author Name DIALLO VALDEZ Organization K01:[facility], [address] [address] Support Name Relationship Address Phone DIALLO VALDEZ, EYAD [facility] Unknown Unavail able Laboratory Report Ordering Provider Test Date Status EYAD LANDRUM MD 10/20/2011 11:28:00-0500 Fin al Obs # Observation Date Value ABNL Reference Status Pe rforming Location 1 SPECIMEN DESCRIPTION 10/20/2011 16:00-0500 CLEAN CATCH URINE Final 2 CULTURE 10/21/2011 14:01-0500 LESS THAN 1,000 COLONIES/ML (NO GROWTH) Final 3 REPORT STATUS 10/21/2011 14:01-0500 10/21/2011 FINAL Final
--- OUTSIDE RECORDS SUMMARY | 2023-06-27 08:14 | External Medical Summary ---
Author Name DIALLO VALDEZ Organization K01:[place] [address] [address] Support Name Relationship Address Phone DIALLO VALDEZ, EYAD [facility] Unknown Unavail able Laboratory Report Ordering Provider Test Date Status EYAD LANDRUM MD 10/30/2011 10:31:00-0500 Fin al Obs # Observation Date Value ABNL Reference Status Pe rforming Location 1 Glucose, Capillary (glucometer) 10/31/2011 09:08-0500 114 70-120 mg/dl Final
--- OUTSIDE RECORDS SUMMARY | 2023-06-27 08:14 | External Medical Summary ---
Author Name ANANDA ALVARENGA Organization K01:[facility], [address] [address] Support Name Relationship Address Phone ANANDA ALVARENGA ALYCIA PROV Unknown Unava ilable Laboratory Report Ordering Provider Test Date Status ALYCIA ALVARENGA 10/18/2011 15:09:00-0500 F inal Obs # Observation Date Value ABNL Reference Status Pe rforming Location 1 ABO and Rh (D) 10/19/2011 11:04-0500 O POSITIVE Final
--- OUTSIDE RECORDS SUMMARY | 2023-06-27 08:15 | External Medical Summary ---
Author Name Unknown Organization K01:[facility], [address] [address] Support Name Relationship Address Phone EYAD LANDRUM MD PROV Unknown Unavaila ble Laboratory Report Ordering Provider Test Date Status YEAD LANDRUM MD 12/21/2010 15:04-0500 Final Obs # Observation Date Value ABNL Reference Status Pe rforming Location 1 BUN 12/21/2010 18:45-0500 20 6-20 mg/dL Final 2 Creatinine 12/21/2010 18:45-0500 0.9 0.7-1.5 mg/dL Final 3 Sodium 12/21/2010 18:45-0500 141 135-146 mmol/L Final 4 Potassium 12/21/2010 18:45-0500 3.9 3.5-5.1 mmol/L Final 5 Cl 12/21/2010 18:45-0500 102 98-111 mmol/L Final 6 CO2 12/21/2010 18:45-0500 28 22-32 mmol/L Final 7 Glucose 12/21/2010 18:45-0500 118 70-120 mg/dL Final 8 Anion gap 12/21/2010 18:45-0500 11 7-15 mEq/L Final 9 Calcium 12/21/2010 18:45-0500 10.3 8.3-10.5 mg/dL Final 10 GFR / 1.73 sq M.predicted 12/21/2010 18:45-0500 >60.0 >60 mL/min Final
--- OUTSIDE RECORDS SUMMARY | 2023-06-27 08:15 | External Medical Summary ---
Author Name Unknown Organization [employer] [facility] tem Support Name Relationship Address Phone EYAD LANDRUM MD [facility] Unknown Unavaila ble Laboratory Report Ordering Provider Test Date Status EYAD LANDRUM MD 10/26/2010 12:25-0500 F Obs # Observation Date Value ABNL Reference Status Pe rforming Location 1 PSA SerPl-mCnc 10/26/2010 21:45-0500 7.36 H <4.1 ng/mL Final
--- OUTSIDE RECORDS SUMMARY | 2023-06-27 08:15 | External Medical Summary ---
Author Name Unknown Organization K01:[facility], [address] [address] Support Name Relationship Address Phone EYAD LANDRUM MD PROV Unknown Unavaila ble Laboratory Report Ordering Provider Test Date Status EYAD LANDRUM MD 12/21/2010 15:04-0500 Final Obs # Observation Date Value ABNL Reference Status Pe rforming Location 1 PT 12/21/2010 17:35-0500 12.4 L 12.5-14.3 seconds Final 2 INR 12/21/2010 17:35-0500 0.93 L 0.94-1.12 Final
--- OUTSIDE RECORDS SUMMARY | 2023-06-27 08:15 | External Medical Summary ---
Author Name Unknown Organization K01:[facility], [address] [address] Support Name Relationship Address Phone EYAD LANDRUM MD PROV Unknown Unavaila ble Laboratory Report Ordering Provider Test Date Status EYAD LANDRUM MD 12/21/2010 15:04-0500 Final Obs # Observation Date Value ABNL Reference Status Pe rforming Location 1 WBC 12/21/2010 17:50-0500 7.58 4.00-10.80 K/uL Final 2 RBC 12/21/2010 17:50-0500 5.28 H 4.50-5.25 M/uL Final 3 HGB 12/21/2010 17:50-0500 16.6 H 14.0-16.5 g/dL Final 4 HCT 12/21/2010 17:50-0500 50.6 H 40.0-47.0 % Final 5 MCV 12/21/2010 17:50-0500 95.8 82.0-99.5 fL Final 6 MCH 12/21/2010 17:50-0500 31.4 27.0-34.0 pg Final 7 MCHC 12/21/2010 17:50-0500 32.8 32.0-36.0 g/dL Final 8 RDW 12/21/2010 17:50-0500 14.6 11.5-15.5 % Final 9 PLT 12/21/2010 17:50-0500 216 140-400 K/uL Final 10 MPV 12/21/2010 17:50-0500 10.5 6.6-11.1 fL Final
== END 2023-06-22 15:38 | disposition home or self-care (01) ==
LOC: 3E 19:49 → ED 19:49 → SUATTDRO 06-21 01:58 → 3E 06-21 02:39

== ENCOUNTER 2023-07-29 04:13 | Inpatient (IN) ==
[2023-07-29] MEDS ORDERED: ONDANSETRON INJ 2 MG/ML 2 ML VIAL IV STA (04:33)
[2023-07-29] MEDS ORDERED: ACETAMINOPHEN 1,000 MG/100 ML VIAL IV STA (04:34)
[2023-07-29] MEDS ORDERED: SODIUM CHLORIDE 0.9% 1,000 ML IV SCH (04:45)
[2023-07-29 05:04] LABS: Basophils # (auto) 0.02 K/uL (0.00-0.20); Basophils % (auto) 0.3 %; Eosinophils # (auto) 0.02 K/uL (0.00-0.50); Eosinophils % (auto) 0.3 %; Hematocrit (blood only) 27.7 % (42.0-52.0); Hemoglobin 8.3 g/dl (14.0-18.0); Immature Granulocytes # (auto) 0.02 K/uL (0.01-0.20); Immature Granulocytes % (auto) 0.3 %; Lymphocytes # (auto) 0.87 K/uL (1.20-3.40); Lymphocytes % (auto) 14.7 %; Mean Corpuscular Hemoglobin 26.9 pg (25.0-34.0); Mean Corpuscular Volume 89.6 fL (80.0-100.0); Mean Platelet Volume 10.3 fL (9.4-12.4); Monocytes # (auto) 0.49 K/uL (0.11-0.59); Monocytes % (auto) 8.3 %; Neutrophils # (auto) 4.51 K/uL (1.40-6.50); Neutrophils % (auto) 76.1 %; Platelet Count 106 K/uL (130-400); RDW Coefficient of Variation 19.5 % (11.5-14.5); RDW Standard Deviation 62.7 fL (36.4-46.3); Red Blood Count 3.09 M/uL (4.70-6.10); White Blood Count 5.93 K/ul (4.8-10.8)
[2023-07-29 05:16] LABS: Albumin Globulin Ratio 1.2 (0.9-2); Albumin Level 3.3 gm/dl (3.4-5.0); BUN Creatinine Ratio 14.9 (10-20); Bilirubin,Total 0.5 mg/dl (0.2-1.0); Calcium 8.8 mg/dl (8.6-10.3); Creatinine Clr Calc Pharmacy 33.4 ml/min; Est GFR (African American) 47.1 ml/min; Est GFR (Non-African American) 40.6 ml/min; Globulin 2.8 gm/dl (2.5-4.0); Potassium 3.7 mmol/L (3.5-5.1); Total Protein 6.1 gm/dl (6.0-8.3)
[2023-07-29 06:23] LABS: Appearance Urine Clear (Clear); Bacteria Urine Automated Negative (Negative); Bilirubin Urine Negative (Negative); Blood Urine Negative (Negative); Color Urine Yellow; Glucose Urine UA Negative (Negative); Ketones Urine 2+ (Negative); Leukocyte Esterase Urine Negative (Negative); Nitrite Urine Negative (Negative); Protein Urine Trace (Negative); RBC Urine Automated 0-4 /hpf (0-4); Specific Gravity Urine 1.017 (1.000-1.030); Urobilinogen Urine Negative (Negative)
[2023-07-29] MEDS ORDERED: PANTOprazole 40 MG in SYRINGE 0 ML IV ONE (06:24)
--- NOTE | 2023-07-29 06:24 | Emergency Department Note ---
History of Present Illness General Chief complaint: Abdominal Pain Stated complaint: LOWER ABDOMINAL PAIN Time Seen by Provider: 07/29/23 04:17 History of Present Illness Maximum Pain Intensity: 10 This is a 77-year-old male presenting to the emergency department for evaluation of left lower quadrant abdominal pain. Patient has unfortunate history of esophageal cancer, and is currently on chemotherapy treatment. The patient has had persistent left lower quadrant abdominal pain for several months. Symptoms seem to be worse the past several days as this is his third visit to the ER with this complaint. He did have CT imaging earlier in the week that suggested constipation. Patient did a MiraLAX cleanout, and feels like he was able to produce a good amount of stool. Patient continues to have 10/10 pain despite this. The pain does not radiate. He has had colonoscopy in the past, and the most recent one in the record was from 2018 that did show some small diverticula. The patient has not had fevers or chills. No difficulty urinating. He has not had relief with anything [id number] for his symptoms. Home Medications Medication Instructions Recorded Confirmed Type meclizine 25 mg tablet 25 mg PO BID PRN Vertigo 08/09/21 07/29/23 History prochlorperazine maleate 10 mg 10 mg PO Q6 PRN Nausea 11/17/21 07/29/23 History tablet (Compazine) ondansetron HCl 8 mg tablet 8 mg PO Q8H PRN Nausea 02/14/22 07/29/23 History paclitaxel 6 mg/mL See Rx Instructions .Route .COMPLEX 01/18/23 07/29/23 History concentrate,intravenous ramucirumab 10 mg/mL intravenous See Rx Instructions .Route .COMPLEX 01/18/23 07/29/23 History solution (Cyramza) promethazine 25 mg tablet 25 mg PO Q6H PRN nausea and 05/04/23 07/29/23 Rx vomiting #20 tabs atorvastatin 40 mg tablet (Lipitor) 40 mg PO HS 06/20/23 07/29/23 History cholecalciferol (vitamin D3) 50 50 mcg PO QAM 06/20/23 07/29/23 History mcg (2,000 unit) capsule (Vitamin D3) cyanocobalamin (vitamin B-12) 100 100 mcg PO QAM 06/20/23 07/29/23 History mcg tablet (Vitamin B-12) dexamethasone 4 mg tablet 12 mg PO DIRECTED PRN PER 06/20/23 07/29/23 History ORDERS FOR PACLITAXEL dronabinol 2.5 mg capsule 2.5 mg PO AMHS 06/20/23 07/29/23 History amoxicillin 500 mg capsule 2,000 mg PO As Directed PRN Prior 06/27/23 07/29/23 History to Dental Appointments famotidine 20 mg tablet (Pepcid) 20 mg PO DAILY #14 tabs 06/27/23 07/29/23 Rx tramadol 50 mg tablet 50 mg PO Q6H PRN Pain 07/29/23 07/29/23 History Allergies Allergy/AdvReac Type Severity Reaction Status Date / Time niacin Allergy Intermediate flushing Verified 06/27/23 10:13 gemfibrozil Allergy Unknown unknown Verified 06/27/23 10:13 patient does not remember pravastatin Allergy Unknown patient Verified 06/27/23 10:13 does not remember simvastatin [From Zocor] Allergy Unknown patient Verified 06/27/23 10:13 does not remember codeine AdvReac Intermediate HYPERACTIVI Verified 06/27/23 10:13 TY Past Med/Surg History Medical History (Updated 07/30/23 @ 03:47 by Jonh Sheffield PA-C) Anemia Diabetes History of esophageal cancer HTN (hypertension) Kidney stones 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 Sensorineural hearing loss of both ears Surgical History H/O hernia repair H/O prostatectomy History of knee replacement S/P tonsillectomy Family History Father Hypertension Heart disease Cancer Mother Cancer Hypertension Other No family history of adverse response to anesthesia No family history of bleeding disorder No pertinent family history Social History Smoking Status: Never smoker Second Hand Exposure: No; Do You Dip or Chew Tobacco: No; Hx Alcohol Use: No Hx Substance Use: No Preferred Language: Italian Communication Ability: Effective Metallurgist Process Required: No Beliefs That Will Affect Care: None Current Living Situation: Family Current Living Situation Comment: w/ son Kian Feels Safe at Home: Yes Safety Concerns: Feels Safe At This Time Assistive Devices: None Review of Systems A total of 10 systems reviewed and were otherwise negative Physical Exam Vital Signs Vital Signs - 24 hr 07/29/23 04:09 07/29/23 04:19 07/29/23 04:47 Pulse Rate 63 58 L Pulse Rate from SpO2 Sensor Respiratory Rate 14 Respiratory Effort / Characteristics Non-Labored Spontaneous Non-Labored Spontaneous Respiratory Depth Normal Normal Blood Pressure 159/129 H Blood Pressure Mean 139 Pulse Oximetry Oxygen Delivery Method Room Air Sepsis New/Unexplained Change in Mental Status No Sepsis Action Taken by Nursing No Action Required 07/29/23 04:45 07/29/23 04:50 07/29/23 05:12 Pulse Rate 57 L 67 62 Pulse Rate from SpO2 Sensor 53 L 67 Respiratory Rate 18 20 14 Respiratory Effort / Characteristics Respiratory Depth Blood Pressure 162/82 H Blood Pressure Mean 108 Pulse Oximetry 96 97 Oxygen Delivery Method Sepsis New/Unexplained Change in Mental Status Sepsis Action Taken by Nursing 07/29/23 05:20 07/29/23 05:30 07/29/23 05:40 Pulse Rate 69 56 L 57 L Pulse Rate from SpO2 Sensor 59 L 57 L 55 L Respiratory Rate 17 20 16 Respiratory Effort / Characteristics Respiratory Depth Blood Pressure Blood Pressure Mean Pulse Oximetry 97 98 95 Oxygen Delivery Method Sepsis New/Unexplained Change in Mental Status Sepsis Action Taken by Nursing 07/29/23 05:50 07/29/23 05:51 07/29/23 06:00 Pulse Rate 57 L 57 L 57 L Pulse Rate from SpO2 Sensor 57 L 51 L 52 L Respiratory Rate 11 L 14 20 Respiratory Effort / Characteristics Respiratory Depth Blood Pressure 158/117 H 157/76 H Blood Pressure Mean 130 103 Pulse Oximetry 95 94 97 Oxygen Delivery Method Sepsis New/Unexplained Change in Mental Status Sepsis Action Taken by Nursing 07/29/23 06:20 07/29/23 06:30 07/29/23 06:40 Pulse Rate 60 59 L 59 L Pulse Rate from SpO2 Sensor 61 54 L 58 L Respiratory Rate 19 20 19 Respiratory Effort / Characteristics Respiratory Depth Blood Pressure 152/77 H Blood Pressure Mean 102 Pulse Oximetry 97 97 97 Oxygen Delivery Method Sepsis New/Unexplained Change in Mental Status Sepsis Action Taken by Nursing 07/29/23 06:50 07/29/23 07:00 07/29/23 07:02 Pulse Rate 58 L 65 Pulse Rate from SpO2 Sensor 58 L Respiratory Rate 18 24 Respiratory Effort / Characteristics Respiratory Depth Blood Pressure 170/124 H Blood Pressure Mean 141 Pulse Oximetry 97 Oxygen Delivery Method Sepsis New/Unexplained Change in Mental Status Sepsis Action Taken by Nursing 07/29/23 07:02 07/29/23 07:10 07/29/23 07:20 Pulse Rate 60 56 L 54 L Pulse Rate from SpO2 Sensor 53 L Respiratory Rate 20 21 20 Respiratory Effort / Characteristics Respiratory Depth Blood Pressure Blood Pressure Mean Pulse Oximetry 98 Oxygen Delivery Method Sepsis New/Unexplained Change in Mental Status Sepsis Action Taken by Nursing 07/29/23 07:30 07/29/23 07:30 07/29/23 07:40 Pulse Rate 54 L 57 L Pulse Rate from SpO2 Sensor 54 L 56 L Respiratory Rate 20 18 Respiratory Effort / Characteristics Respiratory Depth Blood Pressure 149/69 H Blood Pressure Mean 97 Pulse Oximetry 95 97 Oxygen Delivery Method Sepsis New/Unexplained Change in Mental Status Sepsis Action Taken by Nursing VITALS: Vitals are noted on the nurse's note and reviewed by myself. Vital signs stable. GENERAL: Very pleasant white male who appears pale on exam. He is cooperative and comfortable. HEAD: Normocephalic atraumatic. NECK: Supple without nuchal rigidity. No lymphadenopathy. No thyromegaly. Cervical spine is nontender. HEART: Regular rate and rhythm without murmurs gallops or rubs. LUNGS: Clear to auscultation bilaterally without wheezes, rales or rhonchi. No retractions or accessory muscle use. ABDOMEN: Positive normal bowel sounds x 4. Soft, with some mild left-sided lower tenderness. MUSCULOSKELETAL: No muscle atrophy, erythema, or edema noted. Full range of motion in all extremities. Course Administered Medications Sodium Chloride (Nss) 1,000 mls @ 80 mls/hr IV .[id number] [facility] Stop: 08/28/23 07:59 Last Infusion: 07/29/23 20:02 Dose: 80 mls/hr Documented By: Infusion: 07/29/23 19:46 Dose: 0 mls/hr Documented By: Admin: 07/29/23 19:45 Dose: 80 mls/hr Documented By: Infusion: 07/29/23 19:45 Dose: 80 mls/hr Documented By: Admin: 07/29/23 08:20 Dose: 80 mls/hr Documented By: JODI Pantoprazole Sodium 40 mg/ (Dextrose) 100 mls @ 20 mls/hr IV Q5H MARIE Stop: 08/28/23 08:14 Last Admin: 07/30/23 00:42 Dose: 8 mg/hr, 20 mls/hr Documented By: Infusion: 07/30/23 00:41 Dose: 8 mg/hr, 20 mls/hr Documented By: Infusion: 07/29/23 20:02 Dose: 8 mg/hr, 20 mls/hr Documented By: Admin: 07/29/23 19:40 Dose: 8 mg/hr, 20 mls/hr Documented By: Infusion: 07/29/23 19:11 Dose: 8 mg/hr, 20 mls/hr Documented By: Admin: 07/29/23 14:11 Dose: 8 mg/hr, 20 mls/hr Documented By: Infusion: 07/29/23 13:22 Dose: 8 mg/hr, 20 mls/hr Documented By: Admin: 07/29/23 08:22 Dose: 8 mg/hr, 20 mls/hr Documented By: JODI Acetaminophen (Ofirmev) 1,000 mg in 100 mls @ 400 mls/hr IV Q8H MARIE Stop: 08/01/23 11:59 Last Infusion: 07/29/23 20:02 Dose: 0 mls/hr Documented By: Infusion: 07/29/23 19:46 Dose: 400 mls/hr Documented By: Infusion: 07/29/23 19:45 Dose: 0 mls/hr Documented By: Infusion: 07/29/23 19:45 Dose: 0 mls/hr Documented By: Admin: 07/29/23 19:43 Dose: 400 mls/hr Documented By: Infusion: 07/29/23 15:00 Dose: 0 mls/hr Documented By: Admin: 07/29/23 14:32 Dose: 400 mls/hr Documented By: ESPERANZA Melatonin (Melatonin 3 Mg Tab) 3 mg PO HS PRN PRN Reason: Sleep Stop: 08/28/23 19:57 Last Admin: 07/29/23 20:04 Dose: 3 mg Documented By: ESG Sucralfate (Sucralfate 1 Gm/10 Ml Udc) 1 gm PO QID MARIE Stop: 08/28/23 08:59 Last Admin: 07/29/23 20:03 Dose: 1 gm Documented By: Admin: 07/29/23 17:10 Dose: 1 gm Documented By: Admin: 07/29/23 17:10 Dose: Not Given Documented By: Admin: 07/29/23 14:12 Dose: Not Given Documented By: ESPERANZA Discontinued Medications Acetaminophen (Acetaminophen 1000 Mg/100 Ml Iv) Confirm Administered Dose 1,000 mg IV .STK-MED ONE Stop: 07/29/23 12:02 Last Admin: 07/29/23 12:06 Dose: 1,000 mg Documented By: JODI Sodium Chloride (Nss) 1,000 mls @ 999 mls/hr IV .Q1H1M MARIE Stop: 07/29/23 05:45 Last Infusion: 07/29/23 06:15 Dose: 0 mls/hr Documented By: Admin: 07/29/23 05:14 Dose: 999 mls/hr Documented By: LILIA Acetaminophen (Ofirmev) 1,000 mg in 100 mls @ 400 mls/hr IV NOW STA Stop: 07/29/23 04:48 Last Infusion: 07/29/23 05:42 Dose: 0 mls/hr Documented By: Admin: 07/29/23 05:14 Dose: 400 mls/hr Documented By: LILIA Pantoprazole Sodium 40 mg/ (Syringe) 10 mls @ 5 mls/min IV NOW ONE Stop: 07/29/23 06:25 Last Admin: 07/29/23 07:09 Dose: 5 mls/min Documented By: JODI Pantoprazole Sodium 80 mg/ (Dextrose) 120 mls @ 400 mls/hr IV NOW STA Stop: 07/29/23 08:17 Last Infusion: 07/29/23 08:35 Dose: 0 mls/hr Documented By: Admin: 07/29/23 08:17 Dose: 400 mls/hr Documented By: JODI Lidocaine (Lidocaine 5% 1 Patch) 1 patch TD NOW STA Stop: 07/29/23 12:19 Last Admin: 07/29/23 14:23 Dose: 1 patch Documented By: ESPERANZA Ondansetron HCl (Ondansetron Inj 2 Mg/Ml 2 Ml Vial) 4 mg IV NOW STA Stop: 07/29/23 04:34 Last Admin: 07/29/23 05:46 Dose: Not Given Documented By: LILIA Ondansetron HCl (Ondansetron Inj 2 Mg/Ml 2 Ml Vial) Confirm Administered Dose 4 mg .ROUTE .STK-MED ONE Stop: 07/29/23 12:02 Last Admin: 07/29/23 12:05 Dose: 4 mg Documented By: JODI Medical Decision Making Differential Diagnosis Differential diagnosis: Etiologies such as biliary colic, cholecystitis, hepatitis, pancreatitis, cardiac disease, pancreatitis, gastritis, peptic ulcer disease, appendicitis, cystitis, diverticulitis, mesenteric ischemia, inflammatory bowel disease, ileus, bowel obstruction, testicular/adnexal torsion, aortic pathology, shingles, as well as others were considered Laboratory Data 07/29/23 04:35 07/29/23 04:35 Lab Results 07/29/23 07/29/23 07/29/23 Range/Units 04:35 04:35 05:39 WBC 5.93 (4.8-10.8) K/ul RBC 3.09 L (4.70-6.10) M/uL Hgb 8.3 L (14.0-18.0) g/dl Hct 27.7 L (42.0-52.0) % MCV 89.6 (80.0-100.0) fL MCH 26.9 (25.0-34.0) pg MCHC 30.0 L (32.0-36.0) g/dL RDW Std Deviation 62.7 H (36.4-46.3) fL RDW Coeff of Katarzyna 19.5 H (11.5-14.5) % Plt Count 106 L (130-400) K/uL MPV 10.3 (9.4-12.4) fL Immature Gran % (Auto) 0.3 % Neut % (Auto) 76.1 % Lymph % (Auto) 14.7 % Leslie % (Auto) 8.3 % Eos % (Auto) 0.3 % Baso % (Auto) 0.3 % Neut # (Auto) 4.51 (1.40-6.50) K/uL Lymph # (Auto) 0.87 L (1.20-3.40) K/uL Leslie # (Auto) 0.49 (0.11-0.59) K/uL Eos # (Auto) 0.02 (0.00-0.50) K/uL Baso # (Auto) 0.02 (0.00-0.20) K/uL Immature Gran # (Auto) 0.02 (0.01-0.20) K/uL VBG pH (7.36-7.41) VBG pCO2 (38-50) mmHg VBG pO2 mmHg VBG HCO3 mmol/L VBG O2 Saturation % VBG Base Excess mEq/L Sodium 137 (136-145) mmol/L Potassium 3.7 (3.5-5.1) mmol/L Chloride 104 (98-107) mmol/L Carbon Dioxide 18 L (21-32) mmol/L Anion Gap 15 H (3-11) BUN 24 H (6-23) mg/dl Creatinine 1.61 H (0.6-1.4) mg/dl Est Cr Clr Drug Dosing 33.4 ml/min Est GFR ( Amer) 47.1 ml/min Est GFR (Non-Af Amer) 40.6 ml/min BUN/Creatinine Ratio 14.9 (10-20) Glucose 81 (70-99(Fasting)) mg/dl Lactate 1.0 (0.4-2.0) mmol/L Calcium 8.8 (8.6-10.3) mg/dl Total Bilirubin 0.5 (0.2-1.0) mg/dl AST 14 (13-39) U/L ALT 5 L (7-52) U/L Alkaline Phosphatase 47 (34-104) U/L Total Protein 6.1 (6.0-8.3) gm/dl Albumin 3.3 L (3.4-5.0) gm/dl Globulin 2.8 (2.5-4.0) gm/dl Albumin/Globulin Ratio 1.2 (0.9-2) Lipase 17 (11-82) U/L Urine Color Urine Appearance (Clear) Urine pH (4.5-7.5) Ur Specific Morrison (1.000-1.030) Urine Protein (Negative) Urine Glucose (UA) (Negative) Urine Ketones (Negative) Urine Blood (Negative) Urine Nitrite (Negative) Urine Bilirubin (Negative) Urine Urobilinogen (Negative) Ur Leukocyte Esterase (Negative) Urine WBC (Auto) (0-5) /hpf Urine RBC (Auto) (0-4) /hpf U Hyaline Cast (Auto) (0-5) /lpf U Epithel Cells (Auto) (0-5) /lpf Urine Bacteria (Auto) (Negative) Blood Type Antibody Screen 07/29/23 07/29/23 07/29/23 Range/Units 06:13 06:18 06:39 WBC (4.8-10.8) K/ul RBC (4.70-6.10) M/uL Hgb (14.0-18.0) g/dl Hct (42.0-52.0) % MCV (80.0-100.0) fL MCH (25.0-34.0) pg MCHC (32.0-36.0) g/dL RDW Std Deviation (36.4-46.3) fL RDW Coeff of Katarzyna (11.5-14.5) % Plt Count (130-400) K/uL MPV (9.4-12.4) fL Immature Gran % (Auto) % Neut % (Auto) % Lymph % (Auto) % Leslie % (Auto) % Eos % (Auto) % Baso % (Auto) % Neut # (Auto) (1.40-6.50) K/uL Lymph # (Auto) (1.20-3.40) K/uL Leslie # (Auto) (0.11-0.59) K/uL Eos # (Auto) (0.00-0.50) K/uL Baso # (Auto) (0.00-0.20) K/uL Immature Gran # (Auto) (0.01-0.20) K/uL VBG pH 7.31 L (7.36-7.41) VBG pCO2 36 L (38-50) mmHg VBG pO2 40 mmHg VBG HCO3 18 mmol/L VBG O2 Saturation 65.3 % VBG Base Excess -7.4 mEq/L Sodium (136-145) mmol/L Potassium (3.5-5.1) mmol/L Chloride (98-107) mmol/L Carbon Dioxide (21-32) mmol/L Anion Gap (3-11) BUN (6-23) mg/dl Creatinine (0.6-1.4) mg/dl Est Cr Clr Drug Dosing ml/min Est GFR ( Amer) ml/min Est GFR (Non-Af Amer) ml/min BUN/Creatinine Ratio (10-20) Glucose (70-99(Fasting)) mg/dl Lactate (0.4-2.0) mmol/L Calcium (8.6-10.3) mg/dl Total Bilirubin (0.2-1.0) mg/dl AST (13-39) U/L ALT (7-52) U/L Alkaline Phosphatase (34-104) U/L Total Protein (6.0-8.3) gm/dl Albumin (3.4-5.0) gm/dl Globulin (2.5-4.0) gm/dl Albumin/Globulin Ratio (0.9-2) Lipase (11-82) U/L Urine Color Yellow Urine Appearance Clear (Clear) Urine pH 5.0 (4.5-7.5) Ur Specific Morrison 1.017 (1.000-1.030) Urine Protein Trace H (Negative) Urine Glucose (UA) Negative (Negative) Urine Ketones 2+ H (Negative) Urine Blood Negative (Negative) Urine Nitrite Negative (Negative) Urine Bilirubin Negative (Negative) Urine Urobilinogen Negative (Negative) Ur Leukocyte Esterase Negative (Negative) Urine WBC (Auto) 1-5 (0-5) /hpf Urine RBC (Auto) 0-4 (0-4) /hpf U Hyaline Cast (Auto) 5-10 H (0-5) /lpf U Epithel Cells (Auto) 5-10 H (0-5) /lpf Urine Bacteria (Auto) Negative (Negative) Blood Type O Positive Antibody Screen NEGATIVE Imaging Data Radiologist's Impression: Abdomen/Pelvis CT 07/29/23 04:33 CT SCAN OF THE ABDOMEN AND PELVIS WITHOUT IV CONTRAST CLINICAL HISTORY: Left lower quadrant abdominal pain. History of esophageal cancer. COMPARISON STUDY: Abdominal CT dated 07/25/2023 and 10/20/2019. PET/CT dated 01/02/2023. TECHNIQUE: CT scan of the abdomen and pelvis is performed from the lung bases to the proximal femora. Images are reviewed in the axial, sagittal, and coronal planes. IV contrast was not administered for this examination. Note that the examination is significantly suboptimal without oral or IV contrast. There is also motion artifact, as well as streak artifact from the arms which could not be elevated above the abdomen. A dose lowering technique was utilized adhering to the principles of ALARA. CT DOSE: 1058.79 mGy.cm FINDINGS: Lung bases: The heart is mildly enlarged noting trace pericardial effusion. The coronary arteries are densely calcified. A 4 mm pulmonary nodule in the right middle lobe as seen on image #35 is unchanged. A tiny calcified granuloma seen at the left lung base. The lung bases are otherwise clear noting bibasilar scarring/atelectasis. Liver: The unenhanced liver is normal in size, contour, and attenuation. There is no intrahepatic biliary ductal dilatation. Gallbladder: The gallbladder is distended and contains a calcified gallstone. There is no CT evidence of acute cholecystitis. Spleen: Normal in size and attenuation. 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 Pancreas: The unenhanced pancreas is moderately atrophic. There is mild infiltration and fluid around the pancreatic tail Adrenal glands: Unremarkable. Kidneys: The unenhanced kidneys are demonstrate cortical atrophy and are without hydronephrosis. There are no renal calculi identified. Bilateral renal cysts measure up to 7.9 cm. There are complex hyperdense cyst which measured 2.4 cm. These are unchanged. Abdominal vasculature: The abdominal aorta is normal in course and caliber noting moderate to advanced atherosclerotic calcification. Stomach and bowel: A mass lesion is again seen at the gastroesophageal junc tion/gastric cardia on axial image #65 with mild surrounding infiltration. There is no bowel obstruction. A tiny duodenal diverticulum is incidentally noted. The appendix is not visualized. Peritoneum: There is trace perihepatic and pelvic ascites. No intraperitoneal free air is seen. There is evidence of previous ventral hernia repair. Lymphadenopathy: There are calcified gastrohepatic nodes. No pathologically enlarged lymph nodes are seen in the abdomen or pelvis.. Pelvic viscera: The prostate gland is surgically absent. The bladder wall appears thickened/trabeculated indicating chronic outlet obstruction. There are tiny bilateral fat-containing inguinal hernias. Skeletal structures: The skeletal structures are osteopenic. There is moderate to advanced lumbosacral spondylosis. There are bilateral pars defects at L5 with moderate to severe disc space narrowing and grade 1 anterolisthesis at L5-S1. There are chronic left-sided rib fractures. No lytic or blastic lesions are see n. IMPRESSION: 1. Significantly suboptimal examination without oral and IV contrast. There is also streaky and motion artifact. 2. Again seen is a mass lesion at the gastroesophageal junction/gastric cardia with mild surrounding infiltration. This is consistent with the patient's known history of an esophageal neoplasm. Correlate clinically for evidence of a superimposed infectious/inflammatory process. 3. Mild fat stranding and fluid is seen around the pancreatic tail. This could be related to the gastroesophageal junction process. Correlate with clinical and laboratory findings for evidence of a tail pancreatitis. 4. Trace abdominopelvic ascites. 5. A 4 mm right middle lobe pulmonary nodules pathologically indeterminate but new dating back to 2019. A tiny metastasis is not excluded. 6. Cholelithiasis. 7. Additional findings as above. ACT 112: Negative or not required by law. Electronically signed by: Mars Beebe M.D. 07/29/2023 7:25 AM MDM Narrative Physical exam and history were performed. Nursing notes, EMR, and Medication List were personally reviewed. No social concerns were identified as barriers to patients care. Patient appears to have left-sided lower abdominal pain bringing him to the ER. I did review his recent visits, and discussed options of care. IV access was established and labs were obtained. Patient was hydrated with normal saline and given IV Tylenol and IV Zofran for comfort. Patient has had multiple CT scans recently, however with him passing a reported normal bowel movement and continued to have pain I did elect to perform another CT scan. Patient's blood work is as above and was reviewed. He does not have a significantly elevated white blood cell count. Patient is anemic at 8.3, and compared to his labs from 3 days ago, he has dropped 1.4 g of hemoglobin. He also has a decrease in his hematocrit. With his cancer diagnosis he will typically run around 10. He does have an anion gap of 15 and because of this VBG and lactic acid were gathered. He is slightly acidotic at 7.31. Creatinine is 1.61 which is roughly baseline. Lactic is negative. Urine without distinct evidence of infection. CT scan was performed and reviewed by myself and radiology as above. He may have a tail pancreatitis, which certainly could contribute to his discomfort. Overall the patient does not appear well for discharge home. Case was discussed with my attending, Dr. Gonzalez, who did review patient's course. Patient has dropped his hemoglobin, and with his history of GI tract cancer this is fairly concerning. Type and screen was performed. He was hydrated with normal saline. The patient case was discussed with the on-call hospitalist team, who agreed to evaluate the patient here in the ER. Please see their dictation for further patient course, plan, and disposition. The chart was completed utilizing [employer] Speech Voice Recognition Software. Grammatical errors, random word insertions, pronoun errors, and incomplete sentences are an occasional consequence of this system due to software limitations, ambient noise, and hardware issues. Any formal questions or concerns about the content, text, or information contained within the body of th is dictation should be directly addressed to the provider for clarification. . Impression & Plan Left sided abdominal pain, Esophageal cancer, Anemia Discharge Plan Visit Data Chief Complaint: Abdominal Pain Stated Complaint: LOWER ABDOMINAL PAIN ED Provider: Jesusita Gonzalez ED Midlevel Provider: Jonh Sheffield Discharge Problem: Left sided abdominal pain, Esophageal cancer, Anemia Patient Disposition: Admitted As Inpatient Discharge Instructions Interventions: ED Discharge Assessment Last Done: 07/29/23 13:20
[2023-07-29 06:50] LABS: Base Excess VBG -7.4 mEq/L; HCO3 VBG 18 mmol/L; Oxygen Saturation VBG 65.3 %; PCO2 VBG 36 mmHg (38-50); PO2 VBG 40 mmHg; pH VBG 7.31 (7.36-7.41)
--- NOTE | 2023-07-29 07:27 | CT Scan Report ---
CT SCAN OF THE ABDOMEN AND PELVIS WITHOUT IV CONTRAST CLINICAL HISTORY: Left lower quadrant abdominal pain. History of esophageal cancer. COMPARISON STUDY: Abdominal CT dated 07/25/2023 and 10/20/2019. PET/CT dated 01/02/2023. TECHNIQUE: CT scan of the abdomen and pelvis is performed from the lung bases to the proximal femora. Images are reviewed in the axial, sagittal, and coronal planes. IV contrast was not administered for this examination. Note that the examination is significantly suboptimal without oral or IV contrast. There is also motion artifact, as well as streak artifact from the arms which could not be elevated above the abdomen. A dose lowering technique was utilized adhering to the principles of ALARA. CT DOSE: 1058.79 mGy.cm FINDINGS: Lung bases: The heart is mildly enlarged noting trace pericardial effusion. The coronary arteries are densely calcified. A 4 mm pulmonary nodule in the right middle lobe as seen on image #35 is unchange d. A tiny calcified granuloma seen at the left lung base. The lung bases are otherwise clear noting b ibasilar scarring/atelectasis. Liver: The unenhanced liver is normal in size, contour, and attenuation. There is no intrahepatic celestine iary ductal dilatation. Gallbladder: The gallbladder is distended and contains a calcified gallstone. There is no CT evidence of acute cholecystitis. Spleen: Normal in size and attenuation. A 1.5 cm peripherally calcified splenic artery aneurysm is ag ain seen on image #101. Pancreas: The unenhanced pancreas is moderately atrophic. There is mild infiltration and fluid around the pancreatic tail Adrenal glands: Unremarkable. Kidneys: The unenhanced kidneys are demonstrate cortical atrophy and are without hydronephrosis. Ther e are no renal calculi identified. Bilateral renal cysts measure up to 7.9 cm. There are complex hype rdense cyst which measured 2.4 cm. These are unchanged. Abdominal vasculature: The abdominal aorta is normal in course and caliber noting moderate to advance d atherosclerotic calcification. Stomach and bowel: A mass lesion is again seen at the gastroesophageal junction/gastric cardia on axi al image #65 with mild surrounding infiltration. There is no bowel obstruction. A tiny duodenal diver ticulum is incidentally noted. The appendix is not visualized. Peritoneum: There is trace perihepatic and pelvic ascites. No intraperitoneal free air is seen. There is evidence of previous ventral hernia repair. Lymphadenopathy: There are calcified gastrohepatic nodes. No pathologically enlarged lymph nodes are seen in the abdomen or pelvis.. Pelvic viscera: The prostate gland is surgically absent. The bladder wall appears thickened/trabecula wilfredo indicating chronic outlet obstruction. There are tiny bilateral fat-containing inguinal hernias. Skeletal structures: The skeletal structures are osteopenic. There is moderate to advanced lumbosacra l spondylosis. There are bilateral pars defects at L5 with moderate to severe disc space narrowing an d grade 1 anterolisthesis at L5-S1. There are chronic left-sided rib fractures. No lytic or blastic l esions are seen. IMPRESSION: 1. Significantly suboptimal examination without oral and IV contrast. There is also streaky and motio n artifact. 2. Again seen is a mass lesion at the gastroesophageal junction/gastric cardia with mild surrounding infiltration. This is consistent with the patient's known history of an esophageal neoplasm. Correlat e clinically for evidence of a superimposed infectious/inflammatory process. 3. Mild fat stranding and fluid is seen around the pancreatic tail. This could be related to the sen roesophageal junction process. Correlate with clinical and laboratory findings for evidence of a tail pancreatitis. 4. Trace abdominopelvic ascites. 5. A 4 mm right middle lobe pulmonary nodules pathologically indeterminate but new dating back to 201 9. A tiny metastasis is not excluded. 6. Cholelithiasis. 7. Additional findings as above. ACT 112: Negative or not required by law. Electronically signed by: Mars Beebe M.D. 07/29/2023 7:25 AM
[2023-07-29] MEDS ORDERED: PANTOPRAZOLE BOLUS/DRIP IV STA (07:57)
[2023-07-29] MEDS ORDERED: PANTOprazole 80 MG in DEXTROSE 5% 100 ML IV STA (08:00)
[2023-07-29] MEDS: SODIUM CHLORIDE 0.9% 1,000 ML IV SCH ×2 (08:20→19:45)
[2023-07-29] MEDS: PANTOprazole 40 MG in DEXTROSE 5% MINI-B 100 ML IV SCH ×3 (08:22→19:40)
--- NOTE | 2023-07-29 11:38 | History & Physical Report ---
Date of Service July 29, 2023 Assessment & Plan (1) Anemia: Plan: H/o esophageal cancer Anemia Unsure as to the exact cause. will place on IV PPI: protonix will check hemoglobin serially If below 7, will transfuse. (2) History of esophageal cancer: Plan: As above. (3) DM (diabetes mellitus): Plan: will check BLood sugar Q4h while awake as patient is NPO. will hold insulin for now. (4) HTN (hypertension): Plan: hold BP meds (5) CKD (chronic kidney disease) stage 3, GFR 30-59 ml/min: Plan: Creat. is 1.6 Patient with acute kidney injury. Will place on IVF. and monitor. Plan DVT: scd History of Present Illness Chief Complaint: Abdominal pain Primary Care Provider: Hortencia Leal PA-C Heath is a 77 year old male w/ PmHx esophageal and prostate cancer on chemotherapy, CKD3, HLD, T2DM coming in to the ED for 3 days of L sided abdominal pain. Patient states that this is the third consecutive day that he has come to the ED.He reports that he had been treated for constipation however, his pain did not improve. Patient reports having h/o kidney stones, but imaging had been negative. Patient reports that in the past, his symptoms had improved with IV fluids. He states the pain does not radiate and is mostly constant. He has some nausea associated with this. He also has some decreased appetite and not eaten much although no difficulty with swallowing. He denies any chest pain, shortness of breath, fevers, chills, diarrhea, constipation, blood in the stool, vomiting. Allergies Allergy/AdvReac Type Severity Reaction Status Date / Time niacin Allergy Intermediate flushing Verified 06/27/23 10:13 gemfibrozil Allergy Unknown unknown Verified 06/27/23 10:13 patient does not remember pravastatin Allergy Unknown patient Verified 06/27/23 10:13 does not remember simvastatin [From Zocor] Allergy Unknown patient Verified 06/27/23 10:13 does not remember codeine AdvReac Intermediate HYPERACTIVI Verified 06/27/23 10:13 TY Home Medications Medication Instructions Recorded Confirmed Type meclizine 25 mg tablet 25 mg PO BID PRN Vertigo 08/09/21 07/29/23 History prochlorperazine maleate 10 mg 10 mg PO Q6 PRN Nausea 11/17/21 07/29/23 History tablet (Compazine) ondansetron HCl 8 mg tablet 8 mg PO Q8H PRN Nausea 02/14/22 07/29/23 History paclitaxel 6 mg/mL See Rx Instructions .Route .COMPLEX 01/18/23 07/29/23 History concentrate,intravenous ramucirumab 10 mg/mL intravenous See Rx Instructions .Route .COMPLEX 01/18/23 07/29/23 History solution (Cyramza) promethazine 25 mg tablet 25 mg PO Q6H PRN nausea and 05/04/23 07/29/23 Rx vomiting #20 tabs atorvastatin 40 mg tablet (Lipitor) 40 mg PO HS 06/20/23 07/29/23 History cholecalciferol (vitamin D3) 50 50 mcg PO QAM 06/20/23 07/29/23 History mcg (2,000 unit) capsule (Vitamin D3) cyanocobalamin (vitamin B-12) 100 100 mcg PO QAM 06/20/23 07/29/23 History mcg tablet (Vitamin B-12) dexamethasone 4 mg tablet 12 mg PO DIRECTED PRN PER 06/20/23 07/29/23 History ORDERS FOR PACLITAXEL dronabinol 2.5 mg capsule 2.5 mg PO AMHS 06/20/23 07/29/23 History amoxicillin 500 mg capsule 2,000 mg PO As Directed PRN Prior 06/27/23 07/29/23 History to Dental Appointments famotidine 20 mg tablet (Pepcid) 20 mg PO DAILY #14 tabs 06/27/23 07/29/23 Rx tramadol 50 mg tablet 50 mg PO Q6H PRN Pain 07/29/23 07/29/23 History Past Med/Surg History Medical History Anemia Diabetes History of esophageal cancer HTN (hypertension) Kidney stones Mixed conductive and sensorineural hearing loss of left ear with restricted hearing of right ear Sensorineural hearing loss of both ears Surgical History H/O hernia repair H/O prostatectomy History of knee replacement S/P tonsillectomy Family History Father Hypertension Heart disease Cancer Mother Cancer Hypertension Other No family history of adverse response to anesthesia No family history of bleeding disorder No pertinent family history Social History Smoking Status: Never smoker Second Hand Exposure: No; Do You Dip or Chew Tobacco: No; Hx Alcohol Use: No Hx Substance Use: No Preferred Language: Frisian Communication Ability: Effective Ironing Pleater Required: No Beliefs That Will Affect Care: None Current Living Situation: Family Current Living Situation Comment: w/ son Kian Feels Safe at Home: Yes Safety Concerns: Feels Safe At This Time Assistive Devices: None Review of Systems Constitutional: no fever and no body aches Eyes: no blind spots and no discharge Ear, Nose, Mouth, Throat: no ear pain and no tinnitus Respiratory: no cough and no dyspnea Cardiovascular: no chest pain Gastrointestinal: + abdominal pain Musculoskeletal: no back pain Integumentary: no acne Neurologic: no gait abnormality Psychiatric: no hopelessness Endocrine: + fatigue Physical Exam Physical Exam: General: Well appearing 77 y.o. male in no acute distress. Alert and oriented to person, place, and time. Heart: Heart rate regular. Normal rhythm. No murmurs, rubs, or gallops auscultated. Lungs: Non-labored breathing. Lungs clear to auscultation bilaterally. Abdomen: Normoactive bowel sounds, tenderness to left flank with palpation. No rebound tenderness. Abdomen is soft. Extremities: No peripheral edema bilaterally Neurologic: No focal neurologic deficits Psychiatric: Normal mood and affect Results & Data Results & Data Vital Signs (Past 12 Hours) Vital Signs Pulse Resp BP Pulse Ox O2 Del Method 07/29/23 10:30 54 L 17 97 07/29/23 10:20 62 19 99 07/29/23 10:00 52 L 21 98 07/29/23 10:00 150/78 H 07/29/23 09:50 51 L 19 98 07/29/23 09:40 54 L 17 98 07/29/23 09:30 54 L 20 97 07/29/23 09:30 148/73 H 07/29/23 09:20 57 L 17 95 07/29/23 09:10 54 L 17 98 07/29/23 09:00 52 L 19 97 07/29/23 09:00 146/75 H 07/29/23 08:50 58 L 27 H 97 07/29/23 08:40 54 L 17 96 07/29/23 09:14 57 L 07/29/23 08:30 54 L 20 97 07/29/23 08:20 53 L 21 97 07/29/23 08:10 58 L 19 99 07/29/23 08:00 55 L 20 96 07/29/23 08:00 139/70 07/29/23 07:50 55 L 19 96 07/29/23 07:40 57 L 18 97 07/29/23 07:30 54 L 20 95 07/29/23 07:30 149/69 H 07/29/23 07:20 54 L 20 98 07/29/23 07:10 56 L 21 07/29/23 07:02 60 20 07/29/23 07:02 170/124 H 07/29/23 07:00 65 24 07/29/23 06:50 58 L 18 97 07/29/23 06:40 59 L 19 97 07/29/23 06:30 59 L 20 152/77 H 97 07/29/23 06:20 60 19 97 07/29/23 06:00 57 L 20 157/76 H 97 07/29/23 05:51 57 L 14 158/117 H 94 07/29/23 05:50 57 L 11 L 95 07/29/23 05:40 57 L 16 95 07/29/23 05:30 56 L 20 98 07/29/23 05:20 69 17 97 07/29/23 05:12 62 14 162/82 H 97 07/29/23 04:50 67 20 07/29/23 04:45 57 L 18 96 07/29/23 04:47 58 L 07/29/23 04:09 63 14 159/129 H Room Air Code Status & VTE Plan VTE Prophylaxis Plan VTE Prophylaxis will be ordered: Yes PG Care Time/CCT Total # of Minutes Spent Total Time Spent with Patient: Total time spent is greater than 50% in coordination of care (as documented) at patient's floor/unit and/or counseling patient: Coding Level of Care Code 73744 INT INP/OBS CARE 3/75MIN Diagnoses Anemia D64.9 History of esophageal cancer Z85.01 DM (diabetes mellitus) E11.9 HTN (hypertension) I10 CKD (chronic kidney disease) stage 3, GFR 30-59 ml/min N18.30
[2023-07-29] MEDS ORDERED: ACETAMINOPHEN 1000 MG/100 ML IV IV ONE (12:01)
[2023-07-29] MEDS ORDERED: ONDANSETRON INJ 2 MG/ML 2 ML VIAL ONE (12:01)
[2023-07-29] MEDS ORDERED: LIDOCAINE 5% 1 PATCH TD STA (12:18)
[2023-07-29 12:25] LABS: Hematocrit (blood only) 24.7 % (42.0-52.0); Hemoglobin 7.5 g/dl (14.0-18.0)
--- NOTE | 2023-07-29 12:57 | History & Physical Report ---
Date of Service July 29, 2023 History of Present Illness Chief Complaint: Anemia/abd pain Primary Care Provider: Hortencia Leal PA-C 77 yo male followed in the [facility] GI clinic. Known history of esophageal cancer on treatment and stercoral colitis. Has been back and forth to the er the past few days and now admitted for anemia and also abdominal pain. Describes having some constipation for about the last week but then taking something and now going regularly, with mild left lower sided abdominal pain. Denies any hematemesis/hematochezia, sick contact, nausea/vomiting, diarrhea. He reports pain has gotten a bit better since being here (varies in his description of the severity -05/31 and now 11/24 09). No other acute complaints voiced to me while in the ER. Allergies Allergy/AdvReac Type Severity Reaction Status Date / Time niacin Allergy Intermediate flushing Verified 06/27/23 10:13 gemfibrozil Allergy Unknown unknown Verified 06/27/23 10:13 patient does not remember pravastatin Allergy Unknown patient Verified 06/27/23 10:13 does not remember simvastatin [From Zocor] Allergy Unknown patient Verified 06/27/23 10:13 does not remember codeine AdvReac Intermediate HYPERACTIVI Verified 06/27/23 10:13 TY Home Medications Medication Instructions Recorded Confirmed Type meclizine 25 mg tablet 25 mg PO BID PRN Vertigo 08/09/21 07/29/23 History prochlorperazine maleate 10 mg 10 mg PO Q6 PRN Nausea 11/17/21 07/29/23 History tablet (Compazine) ondansetron HCl 8 mg tablet 8 mg PO Q8H PRN Nausea 02/14/22 07/29/23 History paclitaxel 6 mg/mL See Rx Instructions .Route .COMPLEX 01/18/23 07/29/23 History concentrate,intravenous ramucirumab 10 mg/mL intravenous See Rx Instructions .Route .COMPLEX 01/18/23 07/29/23 History solution (Cyramza) promethazine 25 mg tablet 25 mg PO Q6H PRN nausea and 05/04/23 07/29/23 Rx vomiting #20 tabs atorvastatin 40 mg tablet (Lipitor) 40 mg PO HS 06/20/23 07/29/23 History cholecalciferol (vitamin D3) 50 50 mcg PO QAM 06/20/23 07/29/23 History mcg (2,000 unit) capsule (Vitamin D3) cyanocobalamin (vitamin B-12) 100 100 mcg PO QAM 06/20/23 07/29/23 History mcg tablet (Vitamin B-12) dexamethasone 4 mg tablet 12 mg PO DIRECTED PRN PER 06/20/23 07/29/23 History ORDERS FOR PACLITAXEL dronabinol 2.5 mg capsule 2.5 mg PO AMHS 06/20/23 07/29/23 History amoxicillin 500 mg capsule 2,000 mg PO As Directed PRN Prior 06/27/23 07/29/23 History to Dental Appointments famotidine 20 mg tablet (Pepcid) 20 mg PO DAILY #14 tabs 06/27/23 07/29/23 Rx tramadol 50 mg tablet 50 mg PO Q6H PRN Pain 07/29/23 07/29/23 History Past Med/Surg History Medical History (Updated 07/29/23 @ 06:24 by Jonh Sheffield PA-C) Anemia Diabetes History of esophageal cancer HTN (hypertension) Kidney stones Mixed conductive and sensorineural hearing loss of left ear with restricted hearing of right ear Sensorineural hearing loss of both ears Surgical History H/O hernia repair H/O prostatectomy History of knee replacement S/P tonsillectomy Family History Father Hypertension Heart disease Cancer Mother Cancer Hypertension Other No family history of adverse response to anesthesia No family history of bleeding disorder No pertinent family history Social History Smoking Status: Never smoker Second Hand Exposure: No; Do You Dip or Chew Tobacco: No; Hx Alcohol Use: No Hx Substance Use: No Preferred Language: Lao Communication Ability: Effective News Technical Director Required: No Beliefs That Will Affect Care: None Current Living Situation: Family Current Living Situation Comment: lives at home with sonLavon Feels Safe at Home: Yes Assistive Devices: None Review of Systems All systems reviewed & are unremarkable except as noted in HPI & below Physical Exam Physical Exam: Pale appearing male in nad Eyes: Normal eomi Respiratory: Normal respirations Gastrointestinal (Abdomen): Soft non distended, slight left sided ttp no guarding Neurologic: Oriented to person/place time Results & Data Vital Signs (Past 12 Hours) Vital Signs Pulse Resp BP Pulse Ox O2 Del Method 07/29/23 12:50 55 L 21 96 07/29/23 12:40 53 L 20 96 07/29/23 12:30 53 L 21 97 07/29/23 12:30 145/74 H 07/29/23 12:20 55 L 22 99 07/29/23 12:10 57 L 30 H 97 07/29/23 12:00 55 L 19 97 07/29/23 12:00 156/73 H 07/29/23 11:50 57 L 19 97 07/29/23 11:40 58 L 22 97 07/29/23 11:30 55 L 18 97 07/29/23 11:30 154/78 H 07/29/23 11:20 53 L 20 97 07/29/23 11:10 54 L 20 95 07/29/23 11:00 56 L 18 98 07/29/23 11:00 146/76 H 07/29/23 10:50 52 L 20 95 07/29/23 10:40 54 L 19 97 07/29/23 10:30 54 L 17 97 07/29/23 10:20 62 19 99 07/29/23 10:00 52 L 21 98 07/29/23 10:00 150/78 H 07/29/23 09:50 51 L 19 98 07/29/23 09:40 54 L 17 98 07/29/23 09:30 54 L 20 97 07/29/23 09:30 148/73 H 07/29/23 09:20 57 L 17 95 07/29/23 09:10 54 L 17 98 07/29/23 09:00 52 L 19 97 07/29/23 09:00 146/75 H 07/29/23 08:50 58 L 27 H 97 07/29/23 08:40 54 L 17 96 07/29/23 09:14 57 L 07/29/23 08:30 54 L 20 97 07/29/23 08:20 53 L 21 97 07/29/23 08:10 58 L 19 99 07/29/23 08:00 55 L 20 96 07/29/23 08:00 139/70 07/29/23 07:50 55 L 19 96 10/08/23 07:40 57 L 18 97 07/29/23 07:30 54 L 20 95 07/29/23 07:30 149/69 H 07/29/23 07:20 54 L 20 98 07/29/23 07:10 56 L 21 07/29/23 07:02 60 20 07/29/23 07:02 170/124 H 07/29/23 07:00 65 24 07/29/23 06:50 58 L 18 97 07/29/23 06:40 59 L 19 97 07/29/23 06:30 59 L 20 152/77 H 97 07/29/23 06:20 60 19 97 07/29/23 06:00 57 L 20 157/76 H 97 07/29/23 05:51 57 L 14 158/117 H 94 07/29/23 05:50 57 L 11 L 95 07/29/23 05:40 57 L 16 95 07/29/23 05:30 56 L 20 98 07/29/23 05:20 69 17 97 07/29/23 05:12 62 14 162/82 H 97 07/29/23 04:50 67 20 07/29/23 04:45 57 L 18 96 07/29/23 04:47 58 L 07/29/23 04:09 63 14 159/129 H Room Air Laboratory Results Hgb 7 (slight drop from 9), no bun rise normal lft's Diagnostic Findings Imaging review - no evidence of diverticulitis Code Status & VTE Plan VTE Prophylaxis Plan VTE Prophylaxis will be ordered: Yes Supervising Physician Co-Signing Physician Notes 77 yo male with known esophageal cancer on treatment. Also with a history of stercoral colitis on outpt gi note review. ? if recent constipation is contributing to his pain but now appears to have resolved. NO Ct evidence of bowel issues as contributors. Consider ruling out a uti. Anemia - history of esophgeal cancer, not reporting any active symptoms or exhibiting signs of gi bleed, consider ppi and trend hgb.
[2023-07-29] MEDS: SUCRALFATE 1 GM/10 ML UDC PO SCH ×4 (14:12→20:03)
[2023-07-29] MEDS: ACETAMINOPHEN 1,000 MG/100 ML VIAL IV SCH ×2 (14:32→19:43)
[2023-07-29] MEDS ORDERED: INFLUENZA VACCINE HIGH-DOSE (HD-IIV4) PF 65+ 0.7mL SYR IM ONE (14:52)
[2023-07-29] MEDS ORDERED: MELATONIN 3 MG TAB PO PRN (19:58)
[2023-07-30] MEDS: PANTOprazole 40 MG in DEXTROSE 5% MINI-B 100 ML IV SCH ×3 (00:42→11:22)
[2023-07-30] MEDS ORDERED: DEXTROSE 50% 50 ML SYRINGE IV PRN (00:48)
[2023-07-30] MEDS ORDERED: GLUCAGON FOR INJ 1 MG VIAL SQ PRN (00:48)
[2023-07-30] MEDS ORDERED: CARBOHYDRATES FOR HYPOGLYCEMIA PO PRN (00:48)
[2023-07-30] MEDS ORDERED: GLUCOSE 40% GEL 15 GM TUBE PO PRN (00:48)
[2023-07-30] MEDS ORDERED: GLUCOSE 10 TAB/TUBE PO PRN (00:48)
[2023-07-30 02:11] LABS: Hematocrit (blood only) 23.7 % (42.0-52.0); Hemoglobin 7.1 g/dl (14.0-18.0)
[2023-07-30] MEDS: ACETAMINOPHEN 1,000 MG/100 ML VIAL IV SCH ×3 (04:16→19:45)
[2023-07-30] MEDS ORDERED: MoRPHine SULFATE 2 MG/ML CARP IV STA (06:45)
[2023-07-30 07:08] LABS: Hematocrit (blood only) 26.6 % (42.0-52.0); Hemoglobin 8.1 g/dl (14.0-18.0); Mean Corpuscular Hemoglobin 27.4 pg (25.0-34.0); Mean Corpuscular Hgb Conc 30.5 g/dL (32.0-36.0); Mean Corpuscular Volume 89.9 fL (80.0-100.0); Mean Platelet Volume 9.2 fL (9.4-12.4); Platelet Count 118 K/uL (130-400); RDW Coefficient of Variation 19.9 % (11.5-14.5); RDW Standard Deviation 64.6 fL (36.4-46.3); Red Blood Count 2.96 M/uL (4.70-6.10); White Blood Count 5.01 K/ul (4.8-10.8)
[2023-07-30 07:14] LABS: Calcium 8.4 mg/dl (8.6-10.3); Creatinine Clr Calc Pharmacy 40.5 ml/min; Est GFR (African American) 59.3 ml/min; Est GFR (Non-African American) 51.2 ml/min; Potassium 3.8 mmol/L (3.5-5.1)
[2023-07-30] MEDS: SUCRALFATE 1 GM/10 ML UDC PO SCH ×4 (08:01→19:45)
[2023-07-30] MEDS: SODIUM CHLORIDE 0.9% 1,000 ML IV SCH ×2 (09:05→19:45)
[2023-07-30] MEDS: ONDANSETRON INJ 2 MG/ML 2 ML VIAL IV PRN (10:38)
--- NOTE | 2023-07-30 11:56 | Gastroenterology Progress Note ---
Date of Service July 30, 2023 Assessment & Plan (1) Anemia: (2) Constipation: (3) History of esophageal cancer: Plan Will restart Marinol BID. This improved appetite and nausea in the past. Continue anti-emetics prn. Needs a regular bowel regime. Recommend Miralax one dose daily. Dulcolax if no BM in past 48 hrs. Regular diet. For now would defer EGD. With esophageal cancer, would expect some melena and slow blood loss. Can use Hemospray if pt has overt GIB, but would follow hgb for now. IV BID PPI. GI will sign off. Please notify us if new/worsening issues. Admission and Anticipated Discharge Date Admission Date: July 29, 2023 Supervising Physician Co-Signing Physician Notes Attg add: Pt with LUQ pain, constipation. Denies dysphagia. Hungry. Abd exam benign. Rectal = green stool. Hgb downward trending. Recs as above, but please reconsult as needed. Subjective 77, male, underging chemo for esophagus cancer. Admitted for lower abd pain consistent w constipation. Has intermittent black BMs. Hb noted to be lower 8.3 on arrival -> 7.1 then return to 8.1 today w/o blood products. Review of Systems Review of Systems: As per HPI otherwise (-) a total of 12 systems reviewed, all others (-). Physical Exam Constitutional: WD/WN, vitals as above Eyes: PERRL, conjunctivae normal, anicteric sclerae ENMT: external ear and nose normal, oropharynx normal Neck: trachea midline, no thyromegaly Respiratory: normal respiratory effort, lungs clear to auscultation Cardiovascular: RRR, no murmur, no edema Gastrointestinal (Abdomen): soft, non distended, mild periumbilical/LLQ tenderness Skin: pale, no rashes or lesions Neurologic: PERRL, EOMI, accommodation nl, no face palsy, no dysarthria Psychiatric: A+Ox3, euthymic affect Lymphatic: no cervical or axillary lymphadenopathy Results & Data Vital Signs (Past 12 Hours) Vital Signs Temp Pulse Pulse Resp BP Pulse Ox O2 Del Method 07/30/23 11:15 36.7 C 50 L 18 164/70 H 98 Room Air 07/30/23 07:24 36.5 C 46 L 18 159/69 H 95 Room Air 07/30/23 00:00 50 L 07/30/23 03:00 37.3 C 55 L 18 162/70 H 97 Room Air Laboratory Results WBC 5, Hb 8, hct 26, Plts 118, Na 138, K 3.8, Cl 108, CO2 21, BUN 16, Cr 1.3, gl ucose 73. Diagnostic Findings CTAP w IV 1. Significantly suboptimal examination without oral and IV contrast. There is also streaky and motion artifact. 2. Again seen is a mass lesion at the gastroesophageal junction/gastric cardia with mild surrounding infiltration. This is consistent with the patient's known history of an esophageal neoplasm. Correlate clinically for evidence of a superimposed infectious/inflammatory process. 3.. Mild fat stranding and fluid is seen around the pancreatic tail. This could be related to the gastroesophageal junction process. Correlate with clinical and laboratory findings for evidence of a tail pancreatitis. 4. Trace abdominopelvic ascites. 5. A 4 mm right middle lobe pulmonary nodules pathologically indeterminate but new dating back to 2019. A tiny metastasis is not excluded. 6. Cholelithiasis.
[2023-07-30] MEDS: droNABinol 2.5 MG CAP PO SCH (16:21)
[2023-07-30 19:27] LABS: Hematocrit (blood only) 23.8 % (42.0-52.0); Hemoglobin 7.3 g/dl (14.0-18.0)
[2023-07-30] MEDS ORDERED: PANTOprazole 40 MG in SYRINGE 0 ML IV SCH (21:00)
[2023-07-31] MEDS ORDERED: HEPARIN 100 UNIT/ML 5ML FLUSH FLUSH PRN (00:51)
[2023-07-31] MEDS: ACETAMINOPHEN 1,000 MG/100 ML VIAL IV SCH ×2 (04:46→11:47)
[2023-07-31] MEDS: ONDANSETRON INJ 2 MG/ML 2 ML VIAL IV PRN (04:58)
[2023-07-31] MEDS ORDERED: ALBUMIN 25% 25 GM/100 ML VIAL IV ONE (05:10)
[2023-07-31] MEDS ORDERED: SODIUM CHLORIDE 0.9% 500 ML IV ONE (05:10)
[2023-07-31] MEDS ORDERED: STAT IV Infusion **Titration per Protocol STA (05:11)
[2023-07-31] MEDS ORDERED: NOREPINEPHRINE/D5W 4 MG/250 ML IV ONE (05:13)
[2023-07-31] MEDS ORDERED: SODIUM CHLORIDE 0.9% 250 ML IV PRN ×3 (05:13→11:33)
[2023-07-31] MEDS ORDERED: PROCHLORPERAZINE 5 MG in SYRINGE 4 ML IV ONE (05:15)
[2023-07-31] MEDS ORDERED: NOREPINEPHRINE/D5W 4 MG/250 ML PLCT IV SCH (05:15)
[2023-07-31] MEDS ORDERED: ONDANSETRON INJ 2 MG/ML 2 ML VIAL IV STA (05:20)
--- NOTE | 2023-07-31 05:20 | Communication Note ---
Date of Service: July 31, 2023 5:04 Received notification patient systolic pressures 50. Per nursing patient initially had hbg around 7 initially asymp, patient had gotten up to use ba throom became lightheaded and pale. On exam patient pale laying in bed, able to answer questions. Ordered NSS 500mls bolusx2. Ordered levophed drip. Ordered type/cross 1U to be transfused now. Ordered albumin. Ordered zofran 4mg IVx2 for nausea. Code purple called. Patient transferred to ICU, Angel contacted aware.
[2023-07-31 05:36] LABS: iSTAT Art Bld Gas pCO2 Correct 39 mmHg (35-46); iSTAT Art Bld Gas pH Corrected 7.311 (7.35-7.45); iSTAT Arterial Blood Gas HCO3 20 meg/L (19-24); iSTAT Arterial Blood Gas pCO2 39 mmHg (35-46); iSTAT Arterial Blood Gas pH 7.31 (7.35-7.45); iSTAT Arterial Blood Gas pO2 < 32 mmHg (80-95); iSTAT Arterial Blood Gas pO2 C 20; iSTAT Carbon Dioxide 21 mmol/L (24-31); iSTAT Hematocrit 19 % (42-52); iSTAT Hemoglobin 6.5 g/dl (14.0-18.0); iSTAT Potassium 3.8 mmol/L (3.3-5.0); iSTAT Site R Radial; iSTAT Sodium 142 mmol/L (135-144)
[2023-07-31 05:56] LABS: Hematocrit (blood only) 22.2 % (42.0-52.0); Hemoglobin 6.6 g/dl (14.0-18.0); Mean Corpuscular Hemoglobin 27.4 pg (25.0-34.0); Mean Corpuscular Hgb Conc 29.7 g/dL (32.0-36.0); Mean Corpuscular Volume 92.1 fL (80.0-100.0); Mean Platelet Volume 10.4 fL (9.4-12.4); Platelet Count 158 K/uL (130-400); RDW Coefficient of Variation 19.9 % (11.5-14.5); RDW Standard Deviation 66.3 fL (36.4-46.3); Red Blood Count 2.41 M/uL (4.70-6.10); White Blood Count 12.06 K/ul (4.8-10.8)
--- NOTE | 2023-07-31 05:59 | Critical Care Consultation ---
Date of Consultation July 31, 2023 Assessment & Plan (1) Hypotension: Reason Critically Ill: 77-year-old male with esophageal cancer and admitted with left sided abdominal pain and GI bleeding, now presents to the ICU following code purple where he was hypotensive and received bolus and emergent blood tr ansfusion. Was temporarily on vasopressor support with Levophed drip. Neuro - [facility] ICU: Negative Cardiac - Hypotensionlikely secondary to hypovolemia/GI bleed. Was temporarily on Levophed drip which is since been weaned following fluid bolus and blood administration -See transfusion below -We will maintain MAP greater than 65. Patient was responsive to fluid bolus and hopefully will be able to remain weaned from vasopressor support -Continue to monitor in ICU for now Respiratory - No history of pulmonary disease. Currently maintaining oxygen saturations on 2 L nasal cannula. Continuous monitoring on pulse ox and wean oxygen as tolerated GI - Upper GI bleedsuspect is most likely secondary to underlying esophageal cancer with mass lesion at gastroesophageal junction/gastric cardia for which she is currently receiving chemotherapy -GI did evaluate the patient yesterday and signed off as there was no indication for EGD at that point. We will reconsult -No significant melena or hematemesis at this point -Continue PPI -N.p.o. for now -See transfusions below RENAL/LYTES - CKD stage IIIcreatinine currently at baseline. Monitor routine BMPs and replete electrolytes as indicated - Strict I's and O's ENDO - DM type IIcurrently euglycemic. Insulin on hold as patient was hypoglycemic and has had poor appetite. ICU hyperglycemic protocol HEME - Acute blood loss anemiai-STAT hemoglobin 6.5 following episode of hypotension. Received 1 unit RBC. Symptoms and blood pressure seem to be improved following single unit -We will trend CBC every 4 hour for now. Coags pending. Platelets within normal limits. Transfuse as indicated ID - Medication for infectious process at this time LINES/IV ACCESS - Peripheral IV x2 DVT PROPHYLAXIS - SCDs, hold anticoagulation in the setting of GI bleed I have personally spent 40 minutes of critical care time in the direct management of this patient. This is a life/limb threatening event. This includes time spent evaluating patient, direct bedside care, chart review, placing orders, interpretation of diagnostic studies, discussion with consultants, patient, and family members, as well as other required patient management activities. This time is exclusive of all separately billable procedures, and teaching time and separate from and in addition to any other critical care service time. Thank you for allowing us to participate in the care of this patient. Please refer to my attending physician's documentation for any further recommendations. (2) Anemia: (3) Left sided abdominal pain: (4) Esophageal cancer: (5) Gastrointestinal hemorrhage: (6) CKD (chronic kidney disease) stage 3, GFR 30-59 ml/min: (7) Hyperlipidemia: (8) Diabetes: (9) HTN (hypertension): Supervising Physician Co-Signing Physician Notes I have personally evaluated and examined this patient. I agree with assessment and plan of Ru ALVARENGA. Patient discussed with Alexy, received second unit of blood, plan for repeat scope secondary to tumor bleeding at approximately 1230. GI highly recommending transfer for IR evaluation given high risk for rebleeding. We are critical shortage of blood products at this point this also will increase need for transfer should he require additional blood product. History of Present Illness Attending Physician: Bry Head History of Present Illness Patient is a 77-year-old male with past medical history of DM type II, HLD, CKD stage III, and esophageal and prostate cancer for which she is currently on chemotherapy. Patient presented to the emergency department with concerns for left-sided abdominal pain yesterday. Patient had presented to the emergency department the prior 2 days as well and was treated for constipation but did not improve his symptoms. He has had some black stools intermittently and his hemoglobin was 8.3. He was seen by GI yesterday who deferred EGD for now and he was started on IV twice daily PPI. This morning patient became hypotensive after standing and nearly lost consciousness. He developed associated nausea afterwards but did not vomit. His blood pressure was 50/28, and he was given IV fluid bolus, albumin bolus, and was started on Levophed drip while awaiting blood. I-STAT hemoglobin revealed hemoglobin of 6.5. He was transferred to the ICU and undergoing transfusion with first unit RBCs. On arrival to the ICU the patient is alert and oriented and symptoms seem improved. Skin is noticeably pallor and he is currently receiving 1 unit RBCs. Does not appear to be in any acute distress. Patient states that he was feeling very nauseous and had an episode where he nearly lost consciousness. He denies any fall. He says that his symptoms are now improving. He denies any headache or dizziness, visual changes, recent fevers or illness, cough or congestion, chest pain or palpitations, swelling in hands or feet. Patient does report left-sided abdominal pain with palpation which was tender on exam. Patient to remain in ICU for further management at this time. Allergies Allergy/AdvReac Type Severity Reaction Status Date / Time niacin Allergy Intermediate flushing Verified 06/27/23 10:13 gemfibrozil Allergy Unknown unknown Verified 06/27/23 10:13 patient does not remember pravastatin Allergy Unknown patient Verified 06/27/23 10:13 does not remember simvastatin [From Zocor] Allergy Unknown patient Verified 06/27/23 10:13 does not remember codeine AdvReac Intermediate HYPERACTIVI Verified 06/27/23 10:13 TY Home Medications Medication Instructions Recorded Confirmed Type meclizine 25 mg tablet 25 mg PO BID PRN Vertigo 08/09/21 07/29/23 History prochlorperazine maleate 10 mg 10 mg PO Q6 PRN Nausea 11/17/21 07/29/23 History tablet (Compazine) ondansetron HCl 8 mg tablet 8 mg PO Q8H PRN Nausea 02/14/22 07/29/23 History paclitaxel 6 mg/mL See Rx Instructions .Route .COMPLEX 01/18/23 07/29/23 History concentrate,intravenous ramucirumab 10 mg/mL intravenous See Rx Instructions .Route .COMPLEX 01/18/23 07/29/23 History solution (Cyramza) promethazine 25 mg tablet 25 mg PO Q6H PRN nausea and 05/04/23 07/29/23 Rx vomiting #20 tabs atorvastatin 40 mg tablet (Lipitor) 40 mg PO HS 06/20/23 07/29/23 History cholecalciferol (vitamin D3) 50 50 mcg PO QAM 06/20/23 07/29/23 History mcg (2,000 unit) capsule (Vitamin D3) cyanocobalamin (vitamin B-12) 100 100 mcg PO QAM 06/20/23 07/29/23 History mcg tablet (Vitamin B-12) dexamethasone 4 mg tablet 12 mg PO DIRECTED PRN PER 06/20/23 07/29/23 History ORDERS FOR PACLITAXEL dronabinol 2.5 mg capsule 2.5 mg PO AMHS 06/20/23 07/29/23 History amoxicillin 500 mg capsule 2,000 mg PO As Directed PRN Prior 06/27/23 07/29/23 History to Dental Appointments famotidine 20 mg tablet (Pepcid) 20 mg PO DAILY #14 tabs 06/27/23 07/29/23 Rx tramadol 50 mg tablet 50 mg PO Q6H PRN Pain 07/29/23 07/29/23 History Patient History Medical History (Updated 07/31/23 @ 09:08 by Darrick Theodore MD) Anemia Diabetes Encounter for pre-operative examination History of esophageal cancer HTN (hypertension) Kidney stones Mixed conductive and sensorineural hearing loss of left ear with restricted hearing of right ear Sensorineural hearing loss of both ears Surgical History H/O hernia repair H/O prostatectomy History of knee replacement S/P tonsillectomy Family History Father Hypertension Heart disease Cancer Mother Cancer Hypertension Other No family history of adverse response to anesthesia No family history of bleeding disorder No pertinent family history Social History Smoking Status: Never smoker Second Hand Exposure: No; Do You Dip or Chew Tobacco: No; Hx Alcohol Use: No Hx Substance Use: No Preferred Language: Burmese Communication Ability: Effective Line Lead Required: No Beliefs That Will Affect Care: None Current Living Situation: Family Current Living Situation Comment: w/ son Kian Feels Safe at Home: Yes Safety Concerns: Feels Safe At This Time Assistive Devices: None Review of Systems Review of Systems: All systems reviewed & are unremarkable except as noted in HPI & below Physical Exam Constitutional: cooperative and comfortable Eyes: PERRL, conjunctivae normal, anicteric sclerae ENMT: external ear and nose normal, oropharynx normal Neck: trachea midline, no thyromegaly Respiratory: normal respiratory effort, lungs clear to auscultation Cardiovascular: RRR, no murmur, no edema Heart Sounds: normal S1 and normal S2; no murmur Vessels: no JVD Extremities: no edema Gastrointestinal (Abdomen): Abdomen is rounded but soft, all 4 quadrants with positive bowel sounds. Patient does have left sided abdominal pain with light palpation on exam. Musculoskeletal: no cyanosis or clubbing, extremities motor strength 5/5 Skin: no rashes, warm and dry + pallor Neurologic: PERRL, EOMI, accommodation nl, no face palsy, no dysarthria Psychiatric: A+Ox3, euthymic affect Results & Data Results & Data Vital Signs (Past 12 Hours) Vital Signs Temp Pulse Pulse Resp BP BP Pulse Ox 07/31/23 05:44 62 24 117/79 100 07/31/23 05:28 36.5 C 98 H 20 81/51 L 96 07/31/23 02:48 36.6 C 60 18 149/66 H 94 07/30/23 22:00 52 L 07/30/23 19:45 07/30/23 22:47 36.6 C 59 L 18 146/69 H 96 07/30/23 19:25 36.8 C 50 L 18 132/69 94 O2 Del Method O2 Flow Rate 07/31/23 05:44 07/31/23 05:28 4 07/31/23 02:48 Room Air 07/30/23 22:00 07/30/23 19:45 Room Air 07/30/23 22:47 Room Air 07/30/23 19:25 Room Air Coding Level of Care Code 83656 CRITICAL CARE 1ST 30-74M Diagnoses Hypotension I95.9 Anemia D64.9 Anemia type: unspecified type Left sided abdominal pain R10.9 Esophageal cancer C15.9 Gastrointestinal hemorrhage K92.2 CKD (chronic kidney disease) stage 3, GFR 30-59 ml/min N18.30 Hyperlipidemia E78.5 Diabetes E11.9 HTN (hypertension) I10 (2) Anemia Anemia type: unspecified type Qualified Code(s): D64.9 - Anemia, unspecified
[2023-07-31 06:13] LABS: Albumin Globulin Ratio 1.3 (0.9-2); Albumin Level 2.4 gm/dl (3.4-5.0); BUN Creatinine Ratio 9.9 (10-20); Bilirubin,Total 0.3 mg/dl (0.2-1.0); Calcium 7.5 mg/dl (8.6-10.3); Creatinine Clr Calc Pharmacy 36.7 ml/min; Est GFR (African American) 55.3 ml/min; Est GFR (Non-African American) 47.7 ml/min; Globulin 1.9 gm/dl (2.5-4.0); Magnesium 1.7 mg/dl (1.7-2.4); Potassium 3.3 mmol/L (3.5-5.1); Total Protein 4.3 gm/dl (6.0-8.3)
[2023-07-31 06:14] LABS: INR 1.1 (0.9-1.1); Prothrombin Time 11.5 Seconds (9.0-12.0)
[2023-07-31 06:39] LABS: Hematocrit (blood only) 22.7 % (42.0-52.0)
[2023-07-31 06:43] LABS: Basophils # (auto) 0.04 K/uL (0.00-0.20); Basophils % (auto) 0.3 %; Eosinophils # (auto) 0.18 K/uL (0.00-0.50); Eosinophils % (auto) 1.5 %; Immature Granulocytes # (auto) 0.04 K/uL (0.01-0.20); Immature Granulocytes % (auto) 0.3 %; Lymphocytes # (auto) 6.06 K/uL (1.20-3.40); Lymphocytes % (auto) 50.2 %; Monocytes # (auto) 0.78 K/uL (0.11-0.59); Monocytes % (auto) 6.5 %; Neutrophils # (auto) 4.96 K/uL (1.40-6.50); Neutrophils % (auto) 41.2 %; Polychromasia 1+
[2023-07-31 06:45] LABS: Fibrinogen 422 mg/dl (184-400)
--- NOTE | 2023-07-31 06:57 | Hospitalist Progress Note ---
Date of Service July 30, 2023 Assessment & Plan (1) Anemia: Plan: H/o esophageal cancer Anemia Unsure as to the exact cause. will place on IV PPI: protonix will check hemoglobin serially If below 7, will transfuse.' Hemoglobin has maintained above 7. will rehceck in afternoon. GI consulted: appreciate input. No intervention planned. will restart diet for diiner on 07/30 w (2) History of esophageal cancer: Plan: As above. (3) DM (diabetes mellitus): Plan: will restart regular diet as per GI. Short acting insulin in AM> (4) HTN (hypertension): Plan: hold BP meds (5) CKD (chronic kidney disease) stage 3, GFR 30-59 ml/min: Plan: Creat. is 1.6, now improved to 1.3 with IVF Patient was admitted with acute kidney injury. Plan DVT: scd Admission and Anticipated Discharge Date Admission Date: July 29, 2023 Subjective Patient reports feeling better. Pain has decreased. Review of Systems Review of Systems: All systems reviewed & are unremarkable except as noted in HPI & below Physical Exam Physical Exam: General: Well appearing 77 y.o. male in no acute distress. Alert and oriented to person, place, and time. Heart: Heart rate regular. Normal rhythm. No murmurs, rubs, or gallops auscultated. Lungs: Non-labored breathing. Lungs clear to auscultation bilaterally. Abdomen: Normoactive bowel sounds, tenderness to left flank with palpation. No rebound tenderness. Abdomen is soft. Extremities: No peripheral edema bilaterally Neurologic: No focal neurologic deficits Psychiatric: Normal mood and affect Results & Data Results & Data Vital Signs (Past 12 Hours) Vital Signs Temp Pulse Pulse Resp BP BP Pulse Ox 07/31/23 06:45 65 32 H 100 07/31/23 06:45 104/68 07/31/23 06:40 64 24 100 07/31/23 06:30 62 22 100 07/31/23 06:30 112/66 07/31/23 06:20 61 22 100 07/31/23 06:20 103/67 07/31/23 06:44 62 07/31/23 06:16 07/31/23 06:10 60 23 100 07/31/23 06:10 105/64 07/31/23 06:00 63 24 100 07/31/23 06:00 119/68 07/31/23 05:50 61 25 H 100 07/31/23 05:50 131/73 07/31/23 05:45 63 26 H 100 07/31/23 05:37 117/79 07/31/23 05:37 76 28 H 91 07/31/23 05:30 81 23 07/31/23 05:15 77 22 07/31/23 05:00 66 26 H 07/31/23 04:45 56 L 0 L 07/31/23 04:30 50 L 0 L 07/31/23 04:15 51 L 0 L 07/31/23 04:00 52 L 0 L 07/31/23 03:45 52 L 5 L 07/31/23 03:30 52 L 0 L 07/31/23 03:15 53 L 0 L 07/31/23 03:00 58 L 20 07/31/23 02:45 66 17 07/31/23 02:30 51 L 11 L 07/31/23 02:15 50 L 0 L 07/31/23 02:00 52 L 10 L 07/31/23 01:45 49 L 6 L 07/31/23 01:30 54 L 8 L 07/31/23 01:15 56 L 4 L 07/31/23 01:00 64 39 H 07/31/23 00:45 55 L 21 07/31/23 00:30 68 39 H 07/31/23 00:15 38 L 0 L 07/31/23 00:00 46 L 0 L 07/30/23 23:45 50 L 17 07/30/23 23:30 50 L 8 L 07/30/23 23:15 51 L 15 07/30/23 23:00 53 L 20 07/30/23 22:45 61 23 07/30/23 22:30 51 L 12 07/30/23 22:15 50 L 21 07/30/23 22:00 53 L 20 07/30/23 21:45 51 L 0 L 07/30/23 21:30 54 L 28 H 07/30/23 21:15 53 L 10 L 07/30/23 21:00 50 L 20 07/30/23 20:45 60 12 07/30/23 20:30 48 L 26 H 07/30/23 20:15 46 L 0 L 07/30/23 20:00 49 L 20 07/30/23 19:45 50 L 0 L 07/30/23 19:30 47 L 12 07/30/23 19:15 52 L 21 07/30/23 19:00 56 L 13 07/31/23 06:01 37 C 63 23 119/68 100 07/31/23 05:20 87 78/54 L 07/31/23 05:00 78 26 H 50/28 L 07/31/23 05:54 60 23 131/73 100 07/31/23 05:44 62 24 117/79 100 07/31/23 05:28 36.5 C 98 H 20 81/51 L 96 07/31/23 02:48 36.6 C 60 18 149/66 H 94 07/30/23 22:00 52 L 07/30/23 19:45 07/30/23 22:47 36.6 C 59 L 18 146/69 H 96 07/30/23 19:25 36.8 C 50 L 18 132/69 94 O2 Del Method O2 Flow Rate 07/31/23 06:45 07/31/23 06:45 07/31/23 06:40 07/31/23 06:30 07/31/23 06:30 07/31/23 06:20 07/31/23 06:20 07/31/23 06:44 07/31/23 06:16 Nasal Cannula 4 07/31/23 06:10 07/31/23 06:10 07/31/23 06:00 07/31/23 06:00 07/31/23 05:50 07/31/23 05:50 07/31/23 05:45 07/31/23 05:37 07/31/23 05:37 07/31/23 05:30 07/31/23 05:15 07/31/23 05:00 07/31/23 04:45 07/31/23 04:30 07/31/23 04:15 07/31/23 04:00 07/31/23 03:45 07/31/23 03:30 07/31/23 03:15 07/31/23 03:00 07/31/23 02:45 07/31/23 02:30 07/31/23 02:15 07/31/23 02:00 07/31/23 01:45 07/31/23 01:30 07/31/23 01:15 07/31/23 01:00 07/31/23 00:45 07/31/23 00:30 07/31/23 00:15 07/31/23 00:00 07/30/23 23:45 07/30/23 23:30 07/30/23 23:15 07/30/23 23:00 07/30/23 22:45 07/30/23 22:30 07/30/23 22:15 07/30/23 22:00 07/30/23 21:45 07/30/23 21:30 07/30/23 21:15 07/30/23 21:00 07/30/23 20:45 07/30/23 20:30 07/30/23 20:15 07/30/23 20:00 07/30/23 19:45 07/30/23 19:30 07/30/23 19:15 07/30/23 19:00 07/31/23 06:01 4 07/31/23 05:20 07/31/23 05:00 07/31/23 05:54 07/31/23 05:44 07/31/23 05:28 4 07/31/23 02:48 Room Air 07/30/23 22:00 07/30/23 19:45 Room Air 07/30/23 22:47 Room Air 07/30/23 19:25 Room Air PG Care Time/CCT Total # of Minutes Spent Total Time Spent with Patient: Total time spent is greater than 50% in coordination of care (as documented) at patient's floor/unit and/or counseling patient: Coding Level of Care Code 28307 SUB INP/OBS CARE 3/50MIN Diagnoses Anemia D64.9 Anemia type: unspecified type History of esophageal cancer Z85.01 DM (diabetes mellitus) E11.9 HTN (hypertension) I10 CKD (chronic kidney disease) stage 3, GFR 30-59 ml/min N18.30 (1) Anemia Anemia type: unspecified type Qualified Code(s): D64.9 - Anemia, unspecified
[2023-07-31] MEDS: PANTOprazole 40 MG in DEXTROSE 5% MINI-B 100 ML IV SCH ×2 (08:00→12:45)
--- NOTE | 2023-07-31 08:56 | Gastroenterology Progress Note ---
Date of Service July 31, 2023 Assessment & Plan (1) History of esophageal cancer: (2) Gastrointestinal hemorrhage: Plan EGD today by Dr Tracey. Please keep NPO. Continue PPI drip. Further recommendations to follow EGD. Admission and Anticipated Discharge Date Admission Date: July 29, 2023 Subjective Overnight Hb drop to 6.1, received a unit of RBCs. Now 7.0. receiving 2nd unit of RBCs. BUN normal. Was SOB, required O2via cannula transferred to ICU. No well - no hypotension or tachycardia and sat at 97% on room air. Is awake, alert, oriented. At 8:20AM passed a large dark red BM w clots. Had brief left mid abd pain prior to passing a BM - now resolved, no other abd pain. Has not had any nausea/vomiting. Review of Systems Review of Systems: ROS: Gen: + weakness. No fevers, no confusion Eyes: No eye redness, or pain, no recent vision changes Resp: SOB - now resolved. No cough. Cardio: No palpitations/irregular beats, no chest pain or pressure GI: brief left mid abd pain now resolved. No nausea/vomiting : Denies pain on urination Skin: No jaundice, itching or new rashes Physical Exam Constitutional: pale, awake, alert, denies pain, NAD Eyes: PERRL, conjunctivae normal, anicteric sclerae ENMT: external ear and nose normal, oropharynx normal Respiratory: normal respiratory effort, lungs clear to auscultation Cardiovascular: RRR, no murmur, no edema Gastrointestinal (Abdomen): normal bowel sounds, soft, nontender, no hepatosplenomegaly Musculoskeletal: no cyanosis or clubbing, extremities motor strength 5/5 Skin: pale, no rashes or jaundice Neurologic: PERRL, EOMI, accommodation nl, no face palsy, no dysarthria Psychiatric: A+Ox3, euthymic affect Lymphatic: no cervical or axillary lymphadenopathy Results & Data Vital Signs (Past 12 Hours) Vital Signs Temp Pulse Pulse Resp BP BP Pulse Ox 07/31/23 08:26 36.8 C 63 18 120/65 97 07/31/23 08:30 36.8 C 66 16 118/68 07/31/23 08:05 36.8 C 66 16 118/64 97 07/31/23 08:00 36.8 C 61 18 110/62 98 07/31/23 07:00 07/31/23 06:45 65 32 H 100 07/31/23 06:45 104/68 07/31/23 06:40 64 24 100 07/31/23 06:30 62 22 100 07/31/23 06:30 112/66 07/31/23 06:20 61 22 100 07/31/23 06:20 103/67 07/31/23 06:44 62 07/31/23 06:16 07/31/23 06:10 60 23 100 07/31/23 06:10 105/64 07/31/23 06:00 63 24 100 07/31/23 06:00 119/68 07/31/23 05:50 61 25 H 100 07/31/23 05:50 131/73 07/31/23 05:45 63 26 H 100 07/31/23 05:37 117/79 07/31/23 05:37 76 28 H 91 07/31/23 05:30 81 23 07/31/23 05:15 77 22 07/31/23 05:00 66 26 H 07/31/23 04:45 56 L 0 L 07/31/23 04:30 50 L 0 L 07/31/23 04:15 51 L 0 L 07/31/23 04:00 52 L 0 L 07/31/23 03:45 52 L 5 L 07/31/23 03:30 52 L 0 L 07/31/23 03:15 53 L 0 L 07/31/23 03:00 58 L 20 07/31/23 02:45 66 17 07/31/23 02:30 51 L 11 L 07/31/23 02:15 50 L 0 L 07/31/23 02:00 52 L 10 L 07/31/23 01:45 49 L 6 L 07/31/23 01:30 54 L 8 L 07/31/23 01:15 56 L 4 L 07/31/23 01:00 64 39 H 07/31/23 00:45 55 L 21 07/31/23 00:30 68 39 H 07/31/23 00:15 38 L 0 L 07/31/23 00:00 46 L 0 L 07/30/23 23:45 50 L 17 07/30/23 23:30 50 L 8 L 07/30/23 23:15 51 L 15 07/30/23 23:00 53 L 20 07/30/23 22:45 61 23 07/30/23 22:30 51 L 12 07/30/23 22:15 50 L 21 07/30/23 22:00 53 L 20 07/30/23 21:45 51 L 0 L 07/30/23 21:30 54 L 28 H 07/30/23 21:15 53 L 10 L 07/30/23 21:00 50 L 20 07/31/23 06:01 37 C 63 23 119/68 100 07/31/23 05:20 87 78/54 L 07/31/23 05:00 78 26 H 50/28 L 07/31/23 05:54 60 23 131/73 100 07/31/23 05:44 62 24 117/79 100 07/31/23 05:28 36.5 C 98 H 20 81/51 L 96 07/31/23 02:48 36.6 C 60 18 149/66 H 94 07/30/23 22:00 52 L 07/30/23 22:47 36.6 C 59 L 18 146/69 H 96 Pulse Ox O2 Del Method O2 Del Method O2 Flow Rate 07/31/23 08:26 07/31/23 08:30 07/31/23 08:05 07/31/23 08:00 07/31/23 07:00 95 Room Air 07/31/23 06:45 07/31/23 06:45 07/31/23 06:40 07/31/23 06:30 07/31/23 06:30 07/31/23 06:20 07/31/23 06:20 07/31/23 06:44 07/31/23 06:16 Nasal Cannula 4 07/31/23 06:10 07/31/23 06:10 07/31/23 06:00 07/31/23 06:00 07/31/23 05:50 07/31/23 05:50 07/31/23 05:45 07/31/23 05:37 07/31/23 05:37 07/31/23 05:30 07/31/23 05:15 07/31/23 05:00 07/31/23 04:45 07/31/23 04:30 07/31/23 04:15 07/31/23 04:00 07/31/23 03:45 07/31/23 03:30 07/31/23 03:15 07/31/23 03:00 07/31/23 02:45 07/31/23 02:30 07/31/23 02:15 07/31/23 02:00 07/31/23 01:45 07/31/23 01:30 07/31/23 01:15 07/31/23 01:00 07/31/23 00:45 07/31/23 00:30 07/31/23 00:15 07/31/23 00:00 07/30/23 23:45 07/30/23 23:30 07/30/23 23:15 07/30/23 23:00 07/30/23 22:45 07/30/23 22:30 07/30/23 22:15 07/30/23 22:00 07/30/23 21:45 07/30/23 21:30 07/30/23 21:15 07/30/23 21:00 07/31/23 06:01 4 07/31/23 05:20 07/31/23 05:00 07/31/23 05:54 07/31/23 05:44 07/31/23 05:28 4 07/31/23 02:48 Room Air 07/30/23 22:00 07/30/23 22:47 Room Air Laboratory Results WBC 12, Hb 7, Hct 22, Plts 158, PT 11.5, INR 1, Na 139, K 3.5, Cl 112, Co2 18, BUN 14, Cr 1.4, glucose 173. Diagnostic Findings Non contrast CTAP w IV 07/29/23: 1. Significantly suboptimal examination without oral and IV contrast. There is also streaky and motion artifact. 2. Again seen is a mass lesion at the gastroesophageal junction/gastric cardia with mild surrounding infiltration. This is consistent with the patient's known history of an esophageal neoplasm. Correlate clinically for evidence of a superimposed infectious/inflammatory process. 3. Mild fat stranding and fluid is seen around the pancreatic tail. This could be related to the gastroesophageal junction process. Correlate with clinical and laboratory findings for evidence of a tail pancreatitis. 4. Trace abdominopelvic ascites. 5. A 4 mm right middle lobe pulmonary nodules pathologically indeterminate but new dating back to 2019. A tiny metastasis is not excluded. 6. Cholelithiasis.
[2023-07-31] MEDS: SUCRALFATE 1 GM/10 ML UDC PO SCH ×2 (08:59→12:45)
--- NOTE | 2023-07-31 09:05 | Anesthesiology Consultation ---
Date of Service July 31, 2023 Assessment & Plan (1) Encounter for pre-operative examination: Chart Review Chart Review: Acceptable Risk for Surgery, Patient NOT seen in Pre Admission Testing and data entry operator initiated Consults Requested none Proposed Anesthesia Anesthesia Type: MAC History Surgery Operation Date: 07/31/23 17:30 Proposed Procedures p Esophagogastroduodenoscopy Dr Barrera - Roz Tracey MD Height/Weight Height: 5 ft 4 in Weight: 70 kg Allergies Allergy/AdvReac Type Severity Reaction Status Date / Time niacin Allergy Intermediate flushing Verified 06/27/23 10:13 gemfibrozil Allergy Unknown unknown Verified 06/27/23 10:13 patient does not remember pravastatin Allergy Unknown patient Verified 06/27/23 10:13 does not remember simvastatin [From Zocor] Allergy Unknown patient Verified 06/27/23 10:13 does not remember codeine AdvReac Intermediate HYPERACTIVI Verified 06/27/23 10:13 TY Medications Home Medications Medication Instructions Recorded Confirmed Last Taken meclizine 25 mg tablet 25 mg PO BID PRN Vertigo 08/09/21 07/29/23 1 Week Ago ~06/20/23 prochlorperazine maleate 10 mg 10 mg PO Q6 PRN Nausea 11/17/21 07/29/23 1 Week Ago tablet (Compazine) ~06/20/23 ondansetron HCl 8 mg tablet 8 mg PO Q8H PRN Nausea 02/14/22 07/29/23 1 Week Ago ~06/20/23 paclitaxel 6 mg/mL See Rx Instructions .Route .COMPLEX 01/18/23 07/29/23 07/18/23 concentrate,intravenous ramucirumab 10 mg/mL intravenous See Rx Instructions .Route .COMPLEX 01/18/23 07/29/23 07/18/23 solution (Cyramza) promethazine 25 mg tablet 25 mg PO Q6H PRN nausea and 05/04/23 07/29/23 1 Week Ago vomiting #20 tabs ~06/20/23 atorvastatin 40 mg tablet (Lipitor) 40 mg PO HS 06/20/23 07/29/23 07/27/23 cholecalciferol (vitamin D3) 50 50 mcg PO QAM 06/20/23 07/29/23 07/28/23 mcg (2,000 unit) capsule (Vitamin D3) cyanocobalamin (vitamin B-12) 100 100 mcg PO QAM 06/20/23 07/29/23 07/28/23 mcg tablet (Vitamin B-12) dexamethasone 4 mg tablet 12 mg PO DIRECTED PRN PER 06/20/23 07/29/23 07/18/23 ORDERS FOR PACLITAXEL dronabinol 2.5 mg capsule 2.5 mg PO AMHS 06/20/23 07/29/23 07/28/23 amoxicillin 500 mg capsule 2,000 mg PO As Directed PRN Prior 06/27/23 07/29/23 Unknown to Dental Appointments famotidine 20 mg tablet (Pepcid) 20 mg PO DAILY #14 tabs 06/27/23 07/29/23 07/28/23 tramadol 50 mg tablet 50 mg PO Q6H PRN Pain 07/29/23 07/29/23 Unknown Active Medications Generic Name Dose Route Start Last Admin Trade Name Freq PRN Reason Stop Dose Admin Dextrose 25 - 50 ml 07/30/23 00:48 07/30/23 11:57 Dextrose 50% 50 Ml Syringe IV 08/29/23 00:47 25 ml UD PRN Administration Hypoglycemia Protocol Protocol Dronabinol 2.5 mg 07/30/23 16:00 07/30/23 16:21 Dronabinol 2.5 Mg Cap PO 08/29/23 15:59 2.5 mg BID@1100,1600 MARIE Administration Sodium Chloride 1,000 mls @ 80 mls/hr 07/29/23 08:00 07/30/23 19:45 Nss IV 08/28/23 07:59 80 mls/hr .[id number] MARIE Administration Acetaminophen 1,000 mg in 100 mls @ 400 mls/hr 07/29/23 12:00 07/31/23 05:09 Ofirmev IV 08/01/23 11:59 Infused Q8H MARIE Infusion Norepinephrine Bitartrate 4 mg in 250 mls @ 13.125 mls/hr 07/31/23 05:15 07/31/23 05:15 Levophed/D5w IV 08/30/23 05:14 0.05 mcg/kg/min .Q19H3M MARIE 13.1 mls/hr Administration Protocol 0.05 MCG/KG/MIN Pantoprazole Sodium 40 mg/ 100 mls @ 20 mls/hr 07/31/23 07:00 07/31/23 08:00 Dextrose IV 08/30/23 06:59 8 mg/hr Q5H MARIE 20 mls/hr Administration 8 MG/HR Melatonin 3 mg 07/29/23 19:58 07/29/23 20:04 Melatonin 3 Mg Tab PO 08/28/23 19:57 3 mg HS PRN Administration Sleep Ondansetron HCl 4 mg 07/29/23 11:37 07/31/23 04:58 Ondansetron Inj 2 Mg/Ml 2 Ml Vial IV 08/28/23 11:36 4 mg Q6H PRN Administration Nausea And Vomiting Sucralfate 1 gm 07/29/23 09:00 07/31/23 08:59 Sucralfate 1 Gm/10 Ml Udc PO 08/28/23 08:59 Not Given QID MARIE Past Medical History Medical History (Updated 07/31/23 @ 09:08 by Darrick Theodore MD) Anemia Diabetes Encounter for pre-operative examination History of esophageal cancer HTN (hypertension) Kidney stones Mixed conductive and sensorineural hearing loss of left ear with restricted hearing of right ear Sensorineural hearing loss of both ears Past Family History Family History Father Hypertension Heart disease Cancer Mother Cancer Hypertension Other No family history of adverse response to anesthesia No family history of bleeding disorder No pertinent family history Past Surgical History Surgical History H/O hernia repair H/O prostatectomy History of knee replacement S/P tonsillectomy Social History Smoking Status: Never smoker Do You Dip or Chew Tobacco: No Hx Alcohol Use: No Hx Substance Use: No Physical Exam Vital Signs Last Vital Signs Temp 36.8 C 07/31/23 08:30 Pulse 66 07/31/23 08:30 Resp 16 07/31/23 08:30 BP 118/68 07/31/23 08:30 Pulse Ox 97 07/31/23 08:26 O2 Del Method Room Air 07/31/23 07:00 O2 Flow Rate 4 07/31/23 06:16 Testing Laboratory Results 07/31/23 06:21 07/31/23 05:21 PT 11.5 Seconds (9.0-12.0) 07/31/23 05:21 INR 1.1 (0.9-1.1) 07/31/23 05:21 Urine Color Yellow 07/29/23 06:13 Urine Appearance Clear (Clear) 07/29/23 06:13 Urine pH 5.0 (4.5-7.5) 07/29/23 06:13 Ur Specific [place] 1.017 (1.000-1.030) 07/29/23 06:13 Urine Protein Trace (Negative) H 07/29/23 06:13 Urine Glucose (UA) Negative (Negative) 07/29/23 06:13 Urine Ketones 2+ (Negative) H 07/29/23 06:13 Urine Nitrite Negative (Negative) 07/29/23 06:13 Ur Leukocyte Esterase Negative (Negative) 07/29/23 06:13 Urine WBC (Auto) 1-5 /hpf (0-5) 07/29/23 06:13 Urine RBC (Auto) 0-4 /hpf (0-4) 07/29/23 06:13 U Hyaline Cast (Auto) 5-10 /lpf (0-5) H 07/29/23 06:13 U Epithel Cells (Auto) 5-10 /lpf (0-5) H 07/29/23 06:13 Urine Bacteria (Auto) Negative (Negative) 07/29/23 06:13 Blood Type O Positive 07/29/23 06:18 Antibody Screen NEGATIVE 07/29/23 06:18 07/31/23 05:11 POC Glucose 153 H Electrocardiogram Date: 06/18/23 Test Reason : Blood Pressure : / mmHG Vent. Rate : 085 BPM Atrial Rate : 085 BPM P-R Int : 164 ms QRS Dur : 134 ms QT Int : 378 ms P-R-T Axes : 021 -21 -19 degrees QTc Int : 449 ms Sinus rhythm with occasional Premature ventricular complexes and Premature atrial complexes Right bundle branch block Abnormal ECG When compared with ECG of 04-MAY-2023 10:12, Limb lead reversal is no longer present Premature ventricular complexes are now Present Confirmed by Shawn Deshpande ([id number]) on 06/21/2023 10:22:58 PM Chest X-Ray Date: 07/26/23 XR chest 1V not portable CLINICAL HISTORY: abdominal pain TECHNIQUE: Single frontal radiograph of the chest was obtained. Comparison: Comparison is made to chest radiograph 05/04/2023 FINDINGS: A port catheter is seen. The cardiomediastinal silhouette is normal. The lungs are clear. No evidence of pleural effusion or pneumothorax. IMPRESSION: No acute chest disease. Echocardiogram Date: 12/14/22 LV Function: normal RWMA: + none Other Findings: + LVH (moderate)
--- NOTE | 2023-07-31 09:24 | History & Physical Report ---
Date of Service July 31, 2023 Assessment & Plan Admission and Anticipated Discharge Date Admission Date: July 29, 2023 History of Present Illness Primary Care Provider: Hortencia Leal PA-C GI bleed CV: RRR Resp: CTA Abd: soft A/p: EGD for GIB Allergies Allergy/AdvReac Type Severity Reaction Status Date / Time niacin Allergy Intermediate flushing Verified 06/27/23 10:13 gemfibrozil Allergy Unknown unknown Verified 06/27/23 10:13 patient does not remember pravastatin Allergy Unknown patient Verified 06/27/23 10:13 does not remember simvastatin [From Zocor] Allergy Unknown patient Verified 06/27/23 10:13 does not remember codeine AdvReac Intermediate HYPERACTIVI Verified 06/27/23 10:13 TY Home Medications Medication Instructions Recorded Confirmed Type meclizine 25 mg tablet 25 mg PO BID PRN Vertigo 08/09/21 07/29/23 History prochlorperazine maleate 10 mg 10 mg PO Q6 PRN Nausea 11/17/21 07/29/23 History tablet (Compazine) ondansetron HCl 8 mg tablet 8 mg PO Q8H PRN Nausea 02/14/22 07/29/23 History paclitaxel 6 mg/mL See Rx Instructions .Route .COMPLEX 01/18/23 07/29/23 History concentrate,intravenous ramucirumab 10 mg/mL intravenous See Rx Instructions .Route .COMPLEX 01/18/23 07/29/23 History solution (Cyramza) promethazine 25 mg tablet 25 mg PO Q6H PRN nausea and 05/04/23 07/29/23 Rx vomiting #20 tabs atorvastatin 40 mg tablet (Lipitor) 40 mg PO HS 06/20/23 07/29/23 History cholecalciferol (vitamin D3) 50 50 mcg PO QAM 06/20/23 07/29/23 History mcg (2,000 unit) capsule (Vitamin D3) cyanocobalamin (vitamin B-12) 100 100 mcg PO QAM 06/20/23 07/29/23 History mcg tablet (Vitamin B-12) dexamethasone 4 mg tablet 12 mg PO DIRECTED PRN PER 06/20/23 07/29/23 History ORDERS FOR PACLITAXEL dronabinol 2.5 mg capsule 2.5 mg PO AMHS 06/20/23 07/29/23 History amoxicillin 500 mg capsule 2,000 mg PO As Directed PRN Prior 06/27/23 07/29/23 History to Dental Appointments famotidine 20 mg tablet (Pepcid) 20 mg PO DAILY #14 tabs 06/27/23 07/29/23 Rx tramadol 50 mg tablet 50 mg PO Q6H PRN Pain 07/29/23 07/29/23 History Past Med/Surg History Medical History (Updated 07/31/23 @ 09:08 by Darrick Theodore MD) Anemia Diabetes Encounter for pre-operative examination History of esophageal cancer HTN (hypertension) Kidney stones Mixed conductive and sensorineural hearing loss of left ear with restricted hearing of right ear Sensorineural hearing loss of both ears Surgical History H/O hernia repair H/O prostatectomy History of knee replacement S/P tonsillectomy Family History Father Hypertension Heart disease Cancer Mother Cancer Hypertension Other No family history of adverse response to anesthesia No family history of bleeding disorder No pertinent family history Social History Smoking Status: Never smoker Second Hand Exposure: No; Do You Dip or Chew Tobacco: No; Hx Alcohol Use: No Hx Substance Use: No Preferred Language: [place] Communication Ability: Effective Validation Architect Required: No Beliefs That Will Affect Care: None Current Living Situation: Family Current Living Situation Comment: w/ son Kian Feels Safe at Home: Yes Safety Concerns: Feels Safe At This Time Assistive Devices: None Results & Data Results & Data Vital Signs (Past 12 Hours) Vital Signs Temp Pulse Pulse Pulse Resp BP BP 07/31/23 09:19 37.2 C 62 20 122/66 07/31/23 08:26 36.8 C 63 18 120/65 07/31/23 08:30 36.8 C 66 16 118/68 07/31/23 08:05 36.8 C 66 16 118/64 07/31/23 08:00 36.8 C 61 18 110/62 07/31/23 07:00 07/31/23 06:45 65 32 H 07/31/23 06:45 104/68 07/31/23 06:40 64 24 07/31/23 06:30 62 22 07/31/23 06:30 112/66 07/31/23 06:20 61 22 07/31/23 06:20 103/67 07/31/23 06:44 62 07/31/23 06:16 07/31/23 06:10 60 23 07/31/23 06:10 105/64 07/31/23 06:00 63 24 07/31/23 06:00 119/68 07/31/23 05:50 61 25 H 07/31/23 05:50 131/73 07/31/23 05:45 63 26 H 07/31/23 05:37 117/79 07/31/23 05:37 76 28 H 07/31/23 05:30 81 23 07/31/23 05:15 77 22 07/31/23 05:00 66 26 H 07/31/23 04:45 56 L 0 L 07/31/23 04:30 50 L 0 L 07/31/23 04:15 51 L 0 L 07/31/23 04:00 52 L 0 L 07/31/23 03:45 52 L 5 L 07/31/23 03:30 52 L 0 L 07/31/23 03:15 53 L 0 L 07/31/23 03:00 58 L 20 07/31/23 02:45 66 17 07/31/23 02:30 51 L 11 L 07/31/23 02:15 50 L 0 L 07/31/23 02:00 52 L 10 L 07/31/23 01:45 49 L 6 L 07/31/23 01:30 54 L 8 L 07/31/23 01:15 56 L 4 L 07/31/23 01:00 64 39 H 07/31/23 00:45 55 L 21 07/31/23 00:30 68 39 H 07/31/23 00:15 38 L 0 L 07/31/23 00:00 46 L 0 L 07/30/23 23:45 50 L 17 07/30/23 23:30 50 L 8 L 07/30/23 23:15 51 L 15 07/30/23 23:00 53 L 20 07/30/23 22:45 61 23 07/30/23 22:30 51 L 12 07/30/23 22:15 50 L 21 07/30/23 22:00 53 L 20 07/30/23 21:45 51 L 0 L 07/30/23 21:30 54 L 28 H 07/31/23 06:01 37 C 63 23 119/68 07/31/23 05:20 87 07/31/23 05:00 78 26 H 07/31/23 05:54 60 23 131/73 07/31/23 05:44 62 24 117/79 07/31/23 05:28 36.5 C 98 H 20 81/51 L 07/31/23 02:48 36.6 C 60 18 07/30/23 22:00 52 L 07/30/23 22:47 36.6 C 59 L 18 BP Pulse Ox Pulse Ox O2 Del Method O2 Del Method O2 Flow Rate 07/31/23 09:19 99 Room Air 07/31/23 08:26 97 07/31/23 08:30 07/31/23 08:05 97 07/31/23 08:00 98 07/31/23 07:00 95 Room Air 07/31/23 06:45 100 07/31/23 06:45 07/31/23 06:40 100 07/31/23 06:30 100 07/31/23 06:30 07/31/23 06:20 100 07/31/23 06:20 07/31/23 06:44 07/31/23 06:16 Nasal Cannula 4 07/31/23 06:10 100 07/31/23 06:10 07/31/23 06:00 100 07/31/23 06:00 07/31/23 05:50 100 07/31/23 05:50 07/31/23 05:45 100 07/31/23 05:37 07/31/23 05:37 91 07/31/23 05:30 07/31/23 05:15 07/31/23 05:00 07/31/23 04:45 07/31/23 04:30 07/31/23 04:15 07/31/23 04:00 07/31/23 03:45 07/31/23 03:30 07/31/23 03:15 07/31/23 03:00 07/31/23 02:45 07/31/23 02:30 07/31/23 02:15 07/31/23 02:00 07/31/23 01:45 07/31/23 01:30 07/31/23 01:15 07/31/23 01:00 07/31/23 00:45 07/31/23 00:30 07/31/23 00:15 07/31/23 00:00 07/30/23 23:45 07/30/23 23:30 07/30/23 23:15 07/30/23 23:00 07/30/23 22:45 07/30/23 22:30 07/30/23 22:15 07/30/23 22:00 07/30/23 21:45 07/30/23 21:30 07/31/23 06:01 100 4 07/31/23 05:20 78/54 L 07/31/23 05:00 50/28 L 07/31/23 05:54 100 07/31/23 05:44 100 07/31/23 05:28 96 4 07/31/23 02:48 149/66 H 94 Room Air 07/30/23 22:00 07/30/23 22:47 146/69 H 96 Room Air Code Status & VTE Plan VTE Prophylaxis Plan VTE Prophylaxis will be ordered: Yes
[2023-07-31] MEDS ORDERED: SODIUM CHLORIDE 0.9% PF INJ 10 ML VIAL ONE (09:28)
[2023-07-31] MEDS ORDERED: ePHEDrine sulfate 50 MG/ML AMP ONE (09:28)
[2023-07-31] MEDS ORDERED: LIDOCAINE 2% 2 ML VIAL/AMP(20MG/ML) INFIL ONE ×2 (09:29→13:21)
[2023-07-31] MEDS ORDERED: PHENYLEPHRINE HCL 10 MG/ML VIAL ONE (09:29)
[2023-07-31] MEDS ORDERED: PROPOFOL IV EMULSION 10 MG/ML 20 ML VIAL IV ONE ×2 (09:29→13:21)
[2023-07-31] MEDS ORDERED: ERYTHROMYCIN 250 MG in SODIUM CHLORIDE 0.9% 250 ML IV STA (10:03)
[2023-07-31] MEDS: droNABinol 2.5 MG CAP PO SCH (10:23)
[2023-07-31] MEDS ORDERED: CALCIUM GLUCONATE 10% 1,000 MG in NS X1 BAG IV ONE (11:00)
[2023-07-31] MEDS: POTASSIUM CHLORIDE / WTR 20 MEQ/100 ML PLCT IV SCH ×2 (11:09→12:45)
[2023-07-31 12:03] VITALS: O2SAT 99
--- NOTE | 2023-07-31 12:07 | Gastroenterology Progress Note ---
Date of Service July 31, 2023 Assessment & Plan Admission and Anticipated Discharge Date Admission Date: July 29, 2023 Subjective Pt had blood in stomach, causing procedure to be aborted. Because pt has full stomach, he will need procedure in OR under intubation. Results & Data Vital Signs (Past 12 Hours) Vital Signs Temp Pulse Pulse Pulse Resp BP BP 07/31/23 11:45 36.9 C 60 60 20 07/31/23 11:32 36.5 C 07/31/23 11:00 61 24 07/31/23 11:00 128/66 07/31/23 10:30 66 24 07/31/23 10:30 134/87 07/31/23 09:31 143/72 H 07/31/23 09:31 65 20 07/31/23 09:00 62 26 H 07/31/23 09:00 124/64 07/31/23 08:30 63 25 H 07/31/23 08:30 120/65 07/31/23 08:00 62 24 07/31/23 08:00 110/62 07/31/23 07:30 63 9 L 07/31/23 07:30 95/59 L 07/31/23 07:00 62 20 07/31/23 07:00 104/66 07/31/23 10:53 36.5 C 62 21 123/67 07/31/23 08:00 07/31/23 10:11 36.5 C 69 21 108/61 07/31/23 09:34 37 C 60 18 143/72 H 07/31/23 08:56 37.2 C 62 20 122/66 07/31/23 09:19 37.2 C 62 20 122/66 07/31/23 08:26 36.8 C 63 18 120/65 07/31/23 08:30 36.8 C 66 16 118/68 07/31/23 08:05 36.8 C 66 16 118/64 07/31/23 08:00 36.8 C 61 18 110/62 07/31/23 07:00 07/31/23 06:45 65 32 H 07/31/23 06:45 104/68 07/31/23 06:40 64 24 07/31/23 06:30 62 22 07/31/23 06:30 112/66 07/31/23 06:20 61 22 07/31/23 06:20 103/67 07/31/23 06:44 62 07/31/23 06:16 07/31/23 06:10 60 23 07/31/23 06:10 105/64 07/31/23 06:00 63 24 07/31/23 06:00 119/68 07/31/23 05:50 61 25 H 07/31/23 05:50 131/73 07/31/23 05:45 63 26 H 07/31/23 05:37 117/79 07/31/23 05:37 76 28 H 07/31/23 05:30 81 23 07/31/23 05:15 77 22 07/31/23 05:00 66 26 H 07/31/23 04:45 56 L 0 L 07/31/23 04:30 50 L 0 L 07/31/23 04:15 51 L 0 L 07/31/23 04:00 52 L 0 L 07/31/23 03:45 52 L 5 L 07/31/23 03:30 52 L 0 L 07/31/23 03:15 53 L 0 L 07/31/23 03:00 58 L 20 07/31/23 02:45 66 17 07/31/23 02:30 51 L 11 L 07/31/23 02:15 50 L 0 L 07/31/23 02:00 52 L 10 L 07/31/23 01:45 49 L 6 L 07/31/23 01:30 54 L 8 L 07/31/23 01:15 56 L 4 L 07/31/23 01:00 64 39 H 07/31/23 00:45 55 L 21 07/31/23 00:30 68 39 H 07/31/23 00:15 38 L 0 L 07/31/23 06:01 37 C 63 23 119/68 07/31/23 05:20 87 07/31/23 05:00 78 26 H 07/31/23 05:54 60 23 131/73 07/31/23 05:44 62 24 117/79 07/31/23 05:28 36.5 C 98 H 20 81/51 L 07/31/23 02:48 36.6 C 60 18 BP Pulse Ox Pulse Ox O2 Del Method O2 Del Method O2 Flow Rate 07/31/23 11:45 132/67 99 Room Air 07/31/23 11:32 07/31/23 11:00 98 07/31/23 11:00 07/31/23 10:30 99 07/31/23 10:30 07/31/23 09:31 07/31/23 09:31 100 07/31/23 09:00 99 07/31/23 09:00 07/31/23 08:30 97 07/31/23 08:30 07/31/23 08:00 98 07/31/23 08:00 07/31/23 07:30 96 07/31/23 07:30 07/31/23 07:00 100 07/31/23 07:00 07/31/23 10:53 98 07/31/23 08:00 Room Air 07/31/23 10:11 99 07/31/23 09:34 98 07/31/23 08:56 99 07/31/23 09:19 99 Room Air 07/31/23 08:26 97 07/31/23 08:30 07/31/23 08:05 97 07/31/23 08:00 98 07/31/23 07:00 95 Room Air 07/31/23 06:45 100 07/31/23 06:45 07/31/23 06:40 100 07/31/23 06:30 100 07/31/23 06:30 07/31/23 06:20 100 07/31/23 06:20 07/31/23 06:44 07/31/23 06:16 Nasal Cannula 4 07/31/23 06:10 100 07/31/23 06:10 07/31/23 06:00 100 07/31/23 06:00 07/31/23 05:50 100 07/31/23 05:50 07/31/23 05:45 100 07/31/23 05:37 07/31/23 05:37 91 07/31/23 05:30 07/31/23 05:15 07/31/23 05:00 07/31/23 04:45 07/31/23 04:30 07/31/23 04:15 07/31/23 04:00 07/31/23 03:45 07/31/23 03:30 07/31/23 03:15 07/31/23 03:00 07/31/23 02:45 07/31/23 02:30 07/31/23 02:15 07/31/23 02:00 07/31/23 01:45 07/31/23 01:30 07/31/23 01:15 07/31/23 01:00 07/31/23 00:45 07/31/23 00:30 07/31/23 00:15 07/31/23 06:01 100 4 07/31/23 05:20 78/54 L 07/31/23 05:00 50/28 L 07/31/23 05:54 100 07/31/23 05:44 100 07/31/23 05:28 96 4 07/31/23 02:48 149/66 H 94 Room Air
--- NOTE | 2023-07-31 12:20 | GI REPORT ---
Patient Name: Heath Austin Procedure Date: 07/31/2023 9:26 AM Date of : 1945 Admit Type: Inpatient Age: 77 Gender: Male Attending MD: Roz Tracey MD, Procedure: Upper GI endoscopy Providers: Roz Tracey MD Referring MD: Gonzalo Dotson Indications: Hematochezia Medicines: See the Anesthesia note for documentation of the administered medications Complications: No immediate complications. Estimated Blood Loss: Estimated blood loss: none. Procedure: Pre-Anesthesia Assessment: - ASA Grade Assessment: III - A patient with severe systemic disease. After obtaining informed consent, the endoscope was passed under direct vision. Throughout the procedure, the patient's blood pressure, pulse, and oxygen saturations were monitored continuously. The Endoscope was introduced through the mouth, with the intention of advancing to the stomach. The scope was advanced to the gastric body before the procedure was aborted. Medications were given. The upper GI endoscopy was accomplished without difficulty. The patient tolerated the procedure well. Findings: There was scant blood in the esophagus. There was a large amount of blood in the body of the stomach, and the procedure was aborted. Recommendation: - Discharge patient to ICU. Repeat procedure intubated after emycin infusion. Roz Tracey M.D. Roz Tracey MD 07/31/2023 12:19:49 PM This report has been signed electronically. Note Initiated On: 07/31/2023 9:26 AM Number of Addenda: 0 I attest to the content of the Intraoperative Record and orders documented therein, exceptions below {[id number]}
--- NOTE | 2023-07-31 12:33 | Communication Note ---
Date of Service: July 31, 2023 Symptomatic gastrointestinal hemorrhage underwent EGD by GI. Reviewed GI report and and bedside discussion he felt that this is self pay representative of cancer bleeding from known malignancy. We have a critical blood shortage and difficulty obtaining additional blood product this combined with bleeding patient would benefit from transfer to tertiary care center with IR capabilities. I have paged [facility] ICU awaiting callback from Dr. Zhu. 12:55, Dr. Zhu accepting. Will fly to minimize time out of hospital. Patient did require vasoactive's initially this morning. Has adequate IV access currently going back to the OR with endoscopist for additional evaluation. I have personally spent 40 minutes of critical care time in the direct ma nagement of this patient. This is a life/limb threatening event. This includes time spent evaluating patient, direct bedside care, chart review, placing orders, interpretation of diagnostic studies, discussion with consultants, patient, and/or family members regarding treatment decisions, as well as other required patient management activities. This time is exclusive of all separately billable procedures, and teaching time and separate from and in addition to any other critical care service time. Coding Level of Care Code 19707 CRITICAL CARE EA ADD 30M
[2023-07-31] MEDS ORDERED: fentaNYL citrate PF 100 MCG/2 ML VIAL ONE (13:22)
[2023-07-31] MEDS ORDERED: ONDANSETRON INJ 2 MG/ML 2 ML VIAL ONE (13:57)
[2023-07-31] MEDS ORDERED: ePHEDrine sulfate 50 MG/5 ML SYR ONE (14:21)
[2023-07-31] MEDS ORDERED: SUCCINYLCHOLINE CHLORIDE 20 MG/ML 10 ML VIAL IV ONE (14:21)
--- NOTE | 2023-07-31 14:43 | Anesthesiology Progress Note ---
Date of Service July 31, 2023 Anesthesia Post Procedure Vital Signs Vital Signs: Temp Pulse Pulse Pulse Resp BP BP 07/31/23 13:01 133/63 07/31/23 13:01 64 13 07/31/23 12:30 60 21 07/31/23 12:30 128/66 07/31/23 12:00 62 23 07/31/23 12:00 131/66 07/31/23 11:30 129/71 07/31/23 12:25 62 07/31/23 11:45 36.9 C 60 60 20 07/31/23 11:32 36.5 C 07/31/23 11:00 61 24 07/31/23 11:00 128/66 07/31/23 10:30 66 24 07/31/23 10:30 134/87 07/31/23 09:31 143/72 H 07/31/23 09:31 65 20 07/31/23 09:00 62 26 H 07/31/23 09:00 124/64 07/31/23 08:30 63 25 H 07/31/23 08:30 120/65 07/31/23 08:00 62 24 07/31/23 08:00 110/62 07/31/23 07:30 63 9 L 07/31/23 07:30 95/59 L 07/31/23 07:00 62 20 07/31/23 07:00 104/66 07/31/23 10:53 36.5 C 62 21 123/67 07/31/23 08:00 07/31/23 10:11 36.5 C 69 21 108/61 07/31/23 09:34 37 C 60 18 143/72 H 07/31/23 08:56 37.2 C 62 20 122/66 07/31/23 09:19 37.2 C 62 20 122/66 07/31/23 08:26 36.8 C 63 18 120/65 07/31/23 08:30 36.8 C 66 16 118/68 07/31/23 08:05 36.8 C 66 16 118/64 07/31/23 08:00 36.8 C 61 18 110/62 07/31/23 07:00 07/31/23 06:45 65 32 H 07/31/23 06:45 104/68 07/31/23 06:40 64 24 07/31/23 06:30 62 22 07/31/23 06:30 112/66 07/31/23 06:20 61 22 07/31/23 06:20 103/67 07/31/23 06:44 62 07/31/23 06:16 07/31/23 06:10 60 23 07/31/23 06:10 105/64 07/31/23 06:00 63 24 07/31/23 06:00 119/68 07/31/23 05:50 61 25 H 07/31/23 05:50 131/73 07/31/23 05:45 63 26 H 07/31/23 05:37 117/79 07/31/23 05:37 76 28 H 07/31/23 05:30 81 23 07/31/23 05:15 77 22 07/31/23 05:00 66 26 H 07/31/23 04:45 56 L 0 L 07/31/23 04:30 50 L 0 L 07/31/23 04:15 51 L 0 L 07/31/23 04:00 52 L 0 L 07/31/23 03:45 52 L 5 L 07/31/23 03:30 52 L 0 L 07/31/23 03:15 53 L 0 L 07/31/23 03:00 58 L 20 07/31/23 02:45 66 17 07/31/23 02:30 51 L 11 L 07/31/23 02:15 50 L 0 L 07/31/23 02:00 52 L 10 L 07/31/23 01:45 49 L 6 L 07/31/23 01:30 54 L 8 L 07/31/23 01:15 56 L 4 L 07/31/23 01:00 64 39 H 07/31/23 00:45 55 L 21 07/31/23 00:30 68 39 H 07/31/23 00:15 38 L 0 L 07/31/23 00:00 46 L 0 L 07/30/23 23:45 50 L 17 07/30/23 23:30 50 L 8 L 07/30/23 23:15 51 L 15 07/30/23 23:00 53 L 20 07/30/23 22:45 61 23 07/30/23 22:30 51 L 12 07/30/23 22:15 50 L 21 07/30/23 22:00 53 L 20 07/30/23 21:45 51 L 0 L 07/30/23 21:30 54 L 28 H 07/30/23 21:15 53 L 10 L 07/30/23 21:00 50 L 20 07/30/23 20:45 60 12 07/30/23 20:30 48 L 26 H 07/30/23 20:15 46 L 0 L 07/30/23 20:00 49 L 20 07/30/23 19:45 50 L 0 L 07/30/23 19:30 47 L 12 07/30/23 19:15 52 L 21 07/30/23 19:00 56 L 13 07/31/23 06:01 37 C 63 23 119/68 07/31/23 05:20 87 07/31/23 05:00 78 26 H 07/31/23 05:54 60 23 131/73 07/31/23 05:44 62 24 117/79 07/31/23 05:28 36.5 C 98 H 20 81/51 L 07/31/23 02:48 36.6 C 60 18 07/30/23 22:00 52 L 07/30/23 19:45 07/30/23 22:47 36.6 C 59 L 18 07/30/23 19:25 36.8 C 50 L 18 07/30/23 15:41 47 L 07/30/23 15:25 36.3 C L 50 L 20 BP Pulse Ox Pulse Ox O2 Del Method O2 Del Method O2 Flow Rate 07/31/23 13:01 07/31/23 13:01 99 07/31/23 12:30 96 07/31/23 12:30 07/31/23 12:00 98 07/31/23 12:00 07/31/23 11:30 07/31/23 12:25 07/31/23 11:45 132/67 99 Room Air 07/31/23 11:32 07/31/23 11:00 98 07/31/23 11:00 07/31/23 10:30 99 07/31/23 10:30 07/31/23 09:31 07/31/23 09:31 100 07/31/23 09:00 99 07/31/23 09:00 07/31/23 08:30 97 07/31/23 08:30 07/31/23 08:00 98 07/31/23 08:00 07/31/23 07:30 96 07/31/23 07:30 07/31/23 07:00 100 07/31/23 07:00 07/31/23 10:53 98 07/31/23 08:00 Room Air 07/31/23 10:11 99 07/31/23 09:34 98 07/31/23 08:56 99 07/31/23 09:19 99 Room Air 07/31/23 08:26 97 07/31/23 08:30 07/31/23 08:05 97 07/31/23 08:00 98 07/31/23 07:00 95 Room Air 07/31/23 06:45 100 07/31/23 06:45 07/31/23 06:40 100 07/31/23 06:30 100 07/31/23 06:30 07/31/23 06:20 100 07/31/23 06:20 07/31/23 06:44 07/31/23 06:16 Nasal Cannula 4 07/31/23 06:10 100 07/31/23 06:10 07/31/23 06:00 100 07/31/23 06:00 07/31/23 05:50 100 07/31/23 05:50 07/31/23 05:45 100 07/31/23 05:37 07/31/23 05:37 91 07/31/23 05:30 07/31/23 05:15 07/31/23 05:00 07/31/23 04:45 07/31/23 04:30 07/31/23 04:15 07/31/23 04:00 07/31/23 03:45 07/31/23 03:30 07/31/23 03:15 07/31/23 03:00 07/31/23 02:45 07/31/23 02:30 07/31/23 02:15 07/31/23 02:00 07/31/23 01:45 07/31/23 01:30 07/31/23 01:15 07/31/23 01:00 07/31/23 00:45 07/31/23 00:30 07/31/23 00:15 07/31/23 00:00 07/30/23 23:45 07/30/23 23:30 07/30/23 23:15 07/30/23 23:00 07/30/23 22:45 07/30/23 22:30 07/30/23 22:15 07/30/23 22:00 07/30/23 21:45 07/30/23 21:30 07/30/23 21:15 07/30/23 21:00 07/30/23 20:45 07/30/23 20:30 07/30/23 20:15 07/30/23 20:00 07/30/23 19:45 07/30/23 19:30 07/30/23 19:15 07/30/23 19:00 07/31/23 06:01 100 4 07/31/23 05:20 78/54 L 07/31/23 05:00 50/28 L 07/31/23 05:54 100 07/31/23 05:44 100 07/31/23 05:28 96 4 07/31/23 02:48 149/66 H 94 Room Air 07/30/23 22:00 07/30/23 19:45 Room Air 07/30/23 22:47 146/69 H 96 Room Air 07/30/23 19:25 132/69 94 Room Air 07/30/23 15:41 07/30/23 15:25 155/68 H 96 Room Air Pain Intensity Bilateral Abdomen: Pain Intensity: 5 Transfer of Care Handoff Completed per policy Notes Mental Status: alert / awake / arousable and participated in evaluation Patient Amnestic to Procedure: Yes Nausea / Vomiting: adequately controlled Pain: adequately controlled Airway Patency, RR, SpO2: stable & adequate BP & HR: stable & adequate Hydration State: stable & adequate Anesthetic Complications: no major complications apparent and Pt Satisfied with anesthetic care
[2023-07-31 14:49] VITALS: RESP 22; TEMP 97.7
[2023-07-31] MEDS: SODIUM CHLORIDE 0.9% 1,000 ML IV SCH (14:55)
--- NOTE | 2023-07-31 15:02 | Discharge Summary ---
Date of Service date of admission - July 29, 2023 date of discharge - July 31, 2023 Admission HPI Per Admitting Provider Heath Austin is a 77 year old male with history of esophageal and prostate cancer on chemotherapy, CKD3, HLD, T2DM coming in to the ED for 3 days of L sided abdominal pain. Patient states that this is the third consecutive day that he has come to the ED.He reports that he had been treated for constipation however, his pain did not improve. Patient reports having h/o kidney stones, but imaging had been negative. Patient reports that in the past, his symptoms had improved with IV fluids. He states the pain does not radiate and is mostly constant. He has some nausea associated with this. He also has some decreased appetite and not eaten much although no difficulty with swallowing. He denies any chest pain, shortness of breath, fevers, chills, diarrhea, constipation, blood in the stool, vomiting. Principal Diagnosis 1. acute upper gastrointestinal bleeding 2nd to #2 2. 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 acute blood loss anemia 4. hemorrhagic shock 5. CKD stage 3 6. diabetes mellitus Discharge Exam gen - NAD, sleepy but able to answer questions skin - generalized pallor neck - no JVD heart - RRR, s1 s2, no murmur lungs - CTA b/l abd - soft NT ND BS+ ext - no edema, pulses 2+ b/l psych - oriented x 3 Discharge Data Allergies Allergy/AdvReac Type Severity Reaction Status Date / Time niacin Allergy Intermediate flushing Verified 06/27/23 10:13 gemfibrozil Allergy Unknown unknown Verified 06/27/23 10:13 patient does not remember pravastatin Allergy Unknown patient Verified 06/27/23 10:13 does not remember simvastatin [From Zocor] Allergy Unknown patient Verified 06/27/23 10:13 does not remember codeine AdvReac Intermediate HYPERACTIVI Verified 06/27/23 10:13 TY Consultations [facility] [employer] Procedures Performed Esophagogastroduodenoscopy x 2 - Roz Tracey MD 1. EGD #1 - AM of 07/31/23 - Findings: There was scant blood in the esophagus. There was a large amount of blood in the body of the stomach, and the procedure was aborted. 2. EGD #2 - PM of 07/31/23 - Findings: The examined esophagus was normal. There was a large blood clot in the fundus of the stomach obscuring the fundus and cardia despite having received erythromycin earlier. I tried to move or remove the clot by changing the patient position, by suctioning the clot using a cap, or retrieving the clot using a net, but was unsuccessful. There was a a large excavated malignant ulcer in the cardia that could be partially visualized with changes in patient position. The ulcer appeared to be approximately 5-6 cm in length. There was mild oozing from the edges of the ulcer; otherwise there was no active bleeding. There was a single 1 mm nonbleeding visible vessel at the base of the ulcer. The visualized portion of the stomach and duodenum were normal. The vessel was cauterized using a Coaggraspers at soft coag settings. Hemospray was applied to the ulcer base with coating of the entire ulcer. There was no active bleeding at the end of the procedure. 3. PRBCs x 2 units Ordered Studies Abdomen/Pelvis CT 07/29/23 04:33 CT SCAN OF THE ABDOMEN AND PELVIS WITHOUT IV CONTRAST CLINICAL HISTORY: Left lower quadrant abdominal pain. History of esophageal cancer. COMPARISON STUDY: Abdominal CT dated 07/25/2023 and 10/20/2019. PET/CT dated 01/02/2023. TECHNIQUE: CT scan of the abdomen and pelvis is performed from the lung bases to the proximal femora. Images are reviewed in the axial, sagittal, and coronal planes. IV contrast was not administered for this examination. Note that the examination is significantly suboptimal without oral or IV contrast. There is also motion artifact, as well as streak artifact from the arms which could not be elevated above the abdomen. A dose lowering technique was utilized adhering to the principles of ALARA. CT DOSE: 1058.79 mGy.cm FINDINGS: Lung bases: The heart is mildly enlarged noting trace pericardial effusion. The coronary arteries are densely calcified. A 4 mm pulmonary nodule in the right middle lobe as seen on image #35 is unchanged. A tiny calcified granuloma seen at the left lung base. The lung bases are otherwise clear noting bibasilar scarring/atelectasis. Liver: The unenhanced liver is normal in size, contour, and attenuation. There is no intrahepatic biliary ductal dilatation. Gallbladder: The gallbladder is distended and contains a calcified gallstone. There is no CT evidence of acute cholecystitis. Spleen: Normal in size and attenuation. 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 Pancreas: The unenhanced pancreas is moderately atrophic. There is mild infiltration and fluid around the pancreatic tail Adrenal glands: Unremarkable. Kidneys: The unenhanced kidneys are demonstrate cortical atrophy and are without hydronephrosis. There are no renal calculi identified. Bilateral renal cysts measure up to 7.9 cm. There are complex hyperdense cyst which measured 2.4 cm. These are unchanged. Abdominal vasculature: The abdominal aorta is normal in course and caliber noting moderate to advanced atherosclerotic calcification. Stomach and bowel: A mass lesion is again seen at the gastroesophageal junction/gastric cardia on axial image #65 with mild surrounding infiltration. There is no bowel obstruction. A tiny duodenal diverticulum is incidentally noted. The appendix is not visualized. Peritoneum: There is trace perihepatic and pelvic ascites. No intraperitoneal free air is seen. There is evidence of previous ventral hernia repair. Lymphadenopathy: There are calcified gastrohepatic nodes. No pathologically enlarged lymph nodes are seen in the abdomen or pelvis.. Pelvic viscera: The prostate gland is surgically absent. The bladder wall appears thickened/trabeculated indicating chronic outlet obstruction. There are tiny bilateral fat-containing inguinal hernias. Skeletal structures: The skeletal structures are osteopenic. There is moderate to advanced lumbosacral spondylosis. There are bilateral pars defects at L5 with moderate to severe disc space narrowing and grade 1 anterolisthesis at L5-S1. There are chronic left-sided rib fractures. No lytic or blastic lesions are seen. IMPRESSION: 1. Significantly suboptimal examination without oral and IV contrast. There is also streaky and motion artifact. 2. Again seen is a mass lesion at the gastroesophageal junction/gastric cardia with mild surrounding infiltration. This is consistent with the patient's known history of an esophageal neoplasm. Correlate clinically for evidence of a superimposed infectious/inflammatory process. 3. Mild fat stranding and fluid is seen around the pancreatic tail. This could be related to the gastroesophageal junction process. Correlate with clinical and laboratory findings for evidence of a tail pancreatitis. 4. Trace abdominopelvic ascites. 5. A 4 mm right middle lobe pulmonary nodules pathologically indeterminate but new dating back to 2019. A tiny metastasis is not excluded. 6. Cholelithiasis. 7. Additional findings as above. ACT 112: Negative or not required by law. Electronically signed by: Mars Beebe M.D. 07/29/2023 7:25 AM Hospital Course (1) Hemorrhagic shock: The patient presented to [facility] on 07/29/23 with several days of left- sided abdominal pain. He was anemic at time of admission with hemoglobin of 8.3. He was seen by Edmond WING and initially supportive care was advised for his symptoms. IV PPI was given along with diet restriction. His abdominal pain improved by hospital day #2. Unfortunately, however, early in the AM on 07/31/23 the patient had gotten up to go to the bathroom and became severely lightheaded and pale. He was profoundly hypotensive with SBP of ~50. Lucía watson was called. Saline boluses were given and the patient was transferred to the ICU. He briefly required levophed for BP support. Hemoglobin was now 6.6. Clinical picture was consistent with upper GI bleeding. Transfusional support was given - he received 2 units of PRBCs. Edmond WING performed urgent EGD on the AM of 07/31/23. Unfortunately the stomach was filled with blood precluding direct visualization of where the bleeding was coming from. Erythromycin was given, and several hours later a repeat EGD was completed. On the 2nd EGD the bleeding was localized to a malignant ulcer of the esophageal cancer (which extends into the gastric cardia). The ulcer was large - about 5-6cm in length. There was a visible vessel. The vessel was cauterized, and then the entire ulcer was sprayed with hemospray. Following the EGD he was sent back to the ICU and from there he was life- flighted to the ICU at [facility]. Emergent transfer was done due to high risk of re-bleeding from the ulcer/cancer. At time of transfer his BP was stable (systolic BP >120) as were his other vitals. (2) Malignant gastric ulcer: See #1 above (3) Upper GI bleedinnd malignant gastric ulcer in the setting of esophageal cancer (4) Acute blood loss anemia: 2nd to upper GI bleeding from a malignant gastric ulcer lowest hemoglobin was 6.6 while here (5) Esophageal cancer: known diagnosis of esophageal adenocarcinoma (6) CKD (chronic kidney disease) stage 3, GFR 30-59 ml/min: (7) DM (diabetes mellitus): (8) HTN (hypertension): Total Time Total Time Spent Total Time Spent (In Minutes): 45 Discharge Plan Discharge Items Patient Disposition: Transfer Acute Care Hospital Reason For Visit: ANEMIA/METABOLIC ACIDOSIS Discharge Diagnosis: 1. acute upper gastrointestinal bleeding 2nd to #2 2. esophageal cancer 3. acute blood loss anemia 4. hemorrhagic shock 5. CKD stage 3 6. diabetes Activity: As commented below Activity Comment: bedrest Non-emergency contact: Primary Care Provider Call non-emergency contact if: you have any medication questions Follow-up/Referrals: Hortencia Leal PA-C [Primary Care Provider] - Diet: Nothing by Mouth Addtl Attending Provider Instructions: Further instructions to follow after your hospital stay at [facility]. Pending Studies at Discharge: No Stand-Alone Forms: My [facility] Skilled Items Patient informed of condition?: Yes DNR: Yes Discharge Level of Care: Other Communicable Disease: No Discharge Prognosis: Other Lines: Peripheral IV Urinary Catheter: No Medications and DC Order Prescriptions: Continued meclizine 25 mg tablet 25 mg PO BID PRN (Reason: Vertigo) ondansetron HCl 8 mg tablet 8 mg PO Q8H PRN (Reason: Nausea) prochlorperazine maleate [Compazine] 10 mg tablet 10 mg PO Q6 PRN (Reason: Nausea) Cyramza 10 mg/mL solution See Rx Instructions .ROUTE .COMPLEX Rx Instructions: Patient's cancer medication that he gets once weekly at cancer clinic. paclitaxel 6 mg/mL concentrate See Rx Instructions .ROUTE .COMPLEX Rx Instructions: Patient's cancer medication that he gets once weekly at cancer clinic. promethazine 25 mg tablet 25 mg PO Q6H PRN (Reason: nausea and vomiting) Qty: 20 0RF atorvastatin [Lipitor] 40 mg Tablet 40 mg PO HS cyanocobalamin (vitamin B-12) [Vitamin B-12] 100 mcg Tablet 100 mcg PO QAM dronabinol 2.5 mg capsule 2.5 mg PO AMHS dexamethasone 4 mg Tablet 12 mg PO DIRECTED PRN (Reason: PER ORDERS FOR PACLITAXEL) Rx Instructions: TAKE NIGHT BEFORE AND MORNING OF PACLITAXEL INFUSION. cholecalciferol (vitamin D3) [Vitamin D3] 50 mcg (2,000 unit) Capsule 50 mcg PO QAM amoxicillin 500 mg capsule 2,000 mg PO As Directed PRN (Reason: Prior to Dental Appointments) famotidine [Pepcid] 20 mg tablet 20 mg PO DAILY Qty: 14 0RF tramadol 50 mg tablet 50 mg PO Q6H PRN (Reason: Pain) Discharge Orders: Discharge Order (Routine); Ordered 07/31/23 Ordered By: Gonzalo Dotson Admission Data Admit Date/Time: 07/29/23 07:43 Attending Provider: Gonzalo Dotson Admit Provider: Bry Head Primary Care Provider: Hortencia Leal Other Providers: [facility] ; Juan Jose Jones ; Magdalena Ken ; Roberth Pearson ; Davin Schultz ; Greyson Trent ; Mars Ramírez ; Darcie Whiting ; Nohemi Rene ; Saad Torres ; Jenni Felix ; Yoni Ahn ; Gisel Jenkins ; Janusz Mahajan ; Chivo Nunes ; Magdalena Correa ; Aliza Trejo ; Darrick Rivas ; Gonzalo Song ; Srinivas Singh ; Jewels Hernandes ; Ashleigh Riddle ; Guido Jang ; Blanquita Serrano ; Antoni Patton ; Moni Jerry ; El Gardner ; Luz Tenorio ; Sage Duke ; Roberth Gonsales ; Davin Galvez ; Roz Tracey Other Interventions: Discharge Summary Assessment (RN) Last Done: 07/31/23 15:48 Coding Level of Care Code 83410 INP/OBS DISCH >30 MIN Diagnoses Hemorrhagic shock R57.8 Malignant gastric ulcer C16.9 Upper GI bleeding K92.2 Acute blood loss anemia D62 Esophageal cancer C15.9 CKD (chronic kidney disease) stage 3, GFR 30-59 ml/min N18.30 DM (diabetes mellitus) E11.9 HTN (hypertension) I10
--- NOTE | 2023-07-31 15:17 | GI REPORT ---
Patient Name: Heath Austin Procedure Date: 07/31/2023 12:20 PM Date of : 1945 Admit Type: Inpatient Age: 77 Gender: Male Attending MD: Roz Tracey MD, Procedure: Upper GI endoscopy Providers: Roz Tracey MD Referring MD: Gonzalo Dotson Indications: Hematochezia Medicines: See the Anesthesia note for documentation of the administered medications Complications: No immediate complications. Estimated Blood Loss: Estimated blood loss: none. Procedure: Pre-Anesthesia Assessment: - ASA Grade Assessment: IV - A patient with severe systemic disease that is a constant threat to life. After obtaining informed consent, the endoscope was passed under direct vision. Throughout the procedure, the patient's blood pressure, pulse, and oxygen saturations were monitored continuously. The Endoscope was introduced through the mouth, and advanced to the second part of duodenum. The upper GI endoscopy was accomplished without difficulty. The patient tolerated the procedure well. Findings: The examined esophagus was normal. There was a large blood clot in the fundus of the stomach obscuring the fundus and cardia despite having received erythromycin earlier. I tried to move or remove the clot by changing the patient position, by suctioning the clot using a cap, or retrieving the clot using a net, but was unsuccessful. There was a a large excavated malignant ulcer in the cardia that could be partially visualized with changes in patient position. The ulcer appeared to be approximately 5-6 cm in length. There was mild oozing from the edges of the ulcer; otherwise there was no active bleeding. There was a single 1 mm nonbleeding visible vessel at the base of the ulcer. The visualized portion of the stomach and duodenum were normal. The vessel was cauterized using a Coaggraspers at soft coag settings. Hemospray was applied to the ulcer base with coating of the entire ulcer. There was no active bleeding at the end of the procedure. Recommendation: Transfer to tertiary care center in event of re-bleeding. Roz Tracey M.D. Roz Tracey MD 07/31/2023 3:16:30 PM This report has been signed electronically. Note Initiated On: 07/31/2023 12:20 PM Number of Addenda: 0 I attest to the content of the Intraoperative Record and orders documented therein, exceptions below {[id number]}
[2023-07-31 15:52] VITALS: BP 132/67; PULSE 60
== END 2023-07-31 15:52 | disposition short-term general hospital (02) | DRG 378 ==
LOC: ED 04:13 → 2S 07:43 → SUATTDRO 07:43 → 2S 13:20 → 1E 07-31 05:39
DX: Z85.46 Personal history of malignant neoplasm of prostate; D62 Acute posthemorrhagic anemia; C16.0 Malignant neoplasm of cardia; K59.00 Constipation, unspecified; Z88.5 Allergy status to narcotic agent; E11.22 Type 2 diabetes mellitus with diabetic chronic kidney disease; K92.1 Melena; I95.9 Hypotension, unspecified; I12.9 Hypertensive chronic kidney disease with stage 1 through stage 4 chronic kidney disease, or unspecified chronic kidney disease; K52.89 Other specified noninfective gastroenteritis and colitis; Z79.899 Other long term (current) drug therapy; E11.649 Type 2 diabetes mellitus with hypoglycemia without coma; N18.30 Chronic kidney disease, stage 3 unspecified; Z88.8 Allergy status to other drugs, medicaments and biological substances